=== PATIENT | male | born 1965 | race Caucasian/White ===

== ENCOUNTER 2018-07-20 22:00 | Emergency (ER) | payer BC, SELFPAY ==
[2018-07-20] VITALS (9 sets, daily range): BP systolic 155–174; BP diastolic 80–90; PULSE 85–101; RESP 17–28; TEMP 36.5–36.8; O2SAT 97
--- NOTE | 2018-07-20 22:16 | DI.CT_ITS ---
SYMPTOM/DIAGNOSIS: CONFUSION CRANIAL CT (WITHOUT CONTRAST): 07/[address] was performed. The ventricular system is normal in appearance. There is no evidence of an intracranial mass lesion. There is no evidence of a subdural or epidural hematoma. No focal areas of decreased attenuation are seen. CONCLUSION: Normal noncontrast Cranial CT.
--- NOTE | 2018-07-20 22:23 | W.ED.GENAD ---
Discharge Plan Disposition Patient Disposition: HOME Condition: Good Discharge Details Chief Complaint: AMS/LOC Clinical Impression: Acute dehydration, Hypoglycemia, Acute hyperglycemia Primary Care Provider: Sravani Salas ED Provider: Davy Torres Home Meds and New Rx's Prescriptions: No Action metoprolol succinate 25 MG tablet extended release 24 hr 25 mg PO DAILY Qty: 3 RF: 11 atorvastatin 20 MG tablet 40 mg PO DAILY RF: 0 isosorbide mononitrate 30 MG tablet extended release 24 hr 60 mg PO DAILY Qty: 180 RF: 3 lisinopril 40 MG tablet 40 mg PO DAILY RF: 0 multivit with [id number] [One Daily For Men] 1 EACH tablet 1 tab PO DAILY RF: 0 gabapentin 600 MG tablet 300 mg PO DIRECTED RF: 0 allopurinol 300 MG tablet 300 mg PO DAILY RF: 0 magnesium oxide 400 MG tablet 400 mg PO DAILY Qty: 30 RF: 0 nitroglycerin [Nitrostat] 0.4 MG tablet, sublingual 0.4 mg Sublingual Q5 MIN PRN X3 PRNQty: 100 RF: 0 trazodone 50 MG tablet 50 mg PO HS PRNRF: 0 naltrexone 50 MG tablet 4 mg PO DIRECTED RF: 0 insulin regular hum U-500 conc [Humulin R U-500 (Conc) Insulin] 500 UNIT/ML solution 500 unit SQ DIRECTED RF: 0 glimepiride [Amaryl] 4 MG tablet 4 mg PO BID RF: 0 duloxetine [Cymbalta] 60 MG capsule,delayed release(DR/EC) 60 mg PO DAILY RF: 0 metformin 500 MG tablet extended release 24 hr 1,000 mg PO BID Qty: 0 RF: 0 ibuprofen 600 MG tablet 600 mg PO TID Qty: 12 RF: 0 aspirin 325 MG tablet 325 mg PO DAILY RF: 0 ketorolac 10 mg Tablet 10 mg PO Q6H PRNRF: 0 Discharge Instructions Instructions: Dehydration (ED), Diabetic Hypoglycemia (ED) Additional Instructions: Please check your blood sugar every 6 hours for the next 2 days. Please watch your sugars closely. Please monitor your diet, and take notes for any peaks and troughs in your blood sugar levels. Please drink 8-10 cups of water per day. If you notice any worsening of your symptoms, or any new symptoms such as vomiting, diarrhea, fever, chills, shortness of breath, chest pain, numbness, weakness, or fainting , please return immediately to the emergency department for reevaluation. Please follow up with your primary care provider as soon as possible for reassessment and reevaluation. As always, it was a pleasure participating in your medical care today. Referrals: Sravani Salas [Primary Care Provider] - Medical Decision Making This is a pleasant 53-year-old male who presents for evaluation of altered mental status. His initial signs and symptoms were concerning for hypoglycemic episode and he was given a significant amount of very sugary foods by his family, which brought him back to a normal mental status. He has a mild persistent headache, and states that he feels slightly off. Physical exam demonstrates no concerning physical exam findings. However patient does appear bit off. I am concerned that the patient may have had a hypoglycemic episode now with an associated overshoot and hyperglycemia causing his feelings of general malaise. We will rehydrate the patient, evaluate for any acute etiology, and reassess. With no chest pain, shortness of breath, numbness tingling or weakness, no neurologic deficits, stroke is low in the differential and cardiac etiology also is very unlikely. They feel symptoms are most likely metabolic. EKG 22: 38 Rate 87, intervals normal, sinus rhythm, no ST elevations or depressions, no T wave inversions. Q waves in lead III. No other acute abnormalities. IMPRESSION: No acute intracranial abnormality. 11:30 PM Patient's laboratory workup is returned relatively benign. No evidence of leukocytosis. No evidence of acidosis. Electrolytes are normal, creatinine is 1.35 but near baseline. Glucose is elevated at 360. Ammonia troponin EKG are all normal. TSH is normal. CT scan of the head was read as negative per the radiologist. Patient was rehydrated, given Tylenol for his headache. Patient is feeling much better after the fluids, and clinically he does look much more normal. Again reviewing with family they state that throughout the whole day he has not eaten anything, and it still been taking his glimepiride and insulin. I feel that in fact he did have a notable hypoglycemic episode, and has now overshot. I did confirm with the family that he has plenty of diabetic testing strips at home. My recommendation to him is that he checks his blood sugar every 6 hours for the next few days. With a normal laboratory workup, notable clinical improvement with rehydration, and no concerning physical exam findings I feel he can be safely discharged home with close follow-up with his PCP. We discussed red flags which return the patient understands. I have extensively reviewed the treatment plan and discharge instructions with the patient and their family. I have addressed all patient concerns at this time. The patient and family was made aware of what symptoms to monitor for that would warrant a return to the emergency department. Discussed the plan with the patient and family, they demonstrate verbal understanding and agreement with our assessment and plan at this time. HPI General Date/Time Provider Initiated Documentation: 07/20/18 22:16. HPI Narrative: This is a 53-year-old male with a past medical history of type 2 diabetes on insulin, glimepiride, and metformin, with a past medical history of superficial phlebitis, hypertension, cholesterol, myocardial infarction with stenting, presents today for evaluation of altered mental status headache and dizziness. Family states that he was sleeping for his nap they went to wake him up however they had a very hard time waking him. They are concerned that he might be hypoglycemic and so they gave him frosting in his mouth, sugar tabs, and pure maple syrup. Patient slowly began to come back to her normal mental status. As they continue to feed him more he continued to feel better. EMS was called and when they arrived his blood sugar was over 200 and His symptoms have notably improved. However the patient had a persistent mild headache, felt slightly off, it is recommended that he come in for further evaluation in the emergency department. Currently the patient denies any complaints aside for the mild headache and feeling slightly off. He denies any chest pain, shortness of breath, chest heaviness, arm or neck pain, vomiting, or diarrhea. He denies any systemic symptoms of fever or chills. Past surgical history is notable for a recent right nerve lengthening procedure on his right upper extremity that was performed at [facility] within the past few weeks. Patient denies any IV or illicit drug use. He denies any other complaints at this time. He does state that once in the past he did have an episode of hypoglycemia that was similar to the episode he had tonight. He denies any history of stroke, or other intracranial pathology. Related Data Home Medications Medication Instructions Recorded Confirmed lisinopril 40 mg PO DAILY 08/10/13 07/20/18 multivit with [id number] [One 1 tab PO DAILY 08/10/13 07/20/18 Daily For Men] allopurinol 300 mg PO DAILY 03/11/15 07/20/18 gabapentin 300 mg PO DIRECTED 03/11/15 07/20/18 magnesium oxide 400 mg PO DAILY #30 tab 03/11/15 07/20/18 nitroglycerin [Nitrostat] 0.4 mg SUBLINGUAL Q5 MIN PRN X3 03/11/15 07/20/18 PRN #100 tab metoprolol succinate 25 mg PO DAILY #3 tab-cap 05/21/15 07/20/18 atorvastatin 40 mg PO DAILY tab-cap 06/29/15 07/20/18 duloxetine [Cymbalta] 60 mg PO DAILY 08/11/17 07/20/18 glimepiride [Amaryl] 4 mg PO BID 08/11/17 07/20/18 insulin regular hum U-500 conc 500 unit SQ DIRECTED 08/11/17 07/20/18 [Humulin R U-500 (Conc) Insulin] naltrexone 4 mg PO DIRECTED 08/11/17 07/20/18 trazodone 50 mg PO HS PRN 08/11/17 07/20/18 metformin 1,000 mg PO BID #0 08/12/17 07/20/18 isosorbide mononitrate 60 mg PO DAILY #180 tabcr 10/30/17 07/20/18 ibuprofen 600 mg PO TID #12 tablet 12/20/17 07/20/18 aspirin 325 mg PO DAILY 02/06/18 07/20/18 ketorolac 10 mg PO Q6H PRN 07/20/18 07/20/18 Previous Rx's Medication Instructions Recorded magnesium oxide 400 mg PO DAILY #30 tab 03/11/15 nitroglycerin [Nitrostat] 0.4 mg SUBLINGUAL Q5 MIN PRN X3 03/11/15 PRN #100 tab metformin 1,000 mg PO BID #0 08/12/17 isosorbide mononitrate 60 mg PO DAILY #180 tabcr 10/30/17 ibuprofen 600 mg PO TID #12 tablet 12/20/17 Allergies Allergy/AdvReac Type Severity Reaction Status Date / Time amoxicillin Allergy Unverified 07/20/18 22:10 General Stated Complaint: AMS/LOC BRANDYN: 3 Review of Systems Review of Systems All systems reviewed & are unremarkable except as noted in HPI and below PFSH Social History Smoking/Tobacco Use Status: Never Exam Narrative Exam Narrative: 1.Const: Well-nourished, Well-developed, appearing stated age 2.Eyes: PERRL, no conjunctival injection, and symmetrical lids. 3.ENT: Atraumatic external nose and ears. Moist MM. Neck: Symmetric, trachea midline, No thyromegaly. Patient demonstrates good movement of cervical neck. There is no nuchal rigidity, no nuchal tenderness. Patient is able to flex the neck without any difficulty or significant pain. Negative Kernig's and Brudzinski sign. 4.CVS: +S1/S2, No murmurs or gallops. Peripheral pulses 2+ and equal in all extremities. Brisk capillary refill in all extremities. 5.RESP: Unlabored respiratory effort. Clear to auscultation bilaterally. No wheezes rales or rhonchi 6.GI: Soft, Nontender/Nondistended, No hepatosplenomegaly. No guarding or rebound. 7.MSK: Normocephalic/Atraumatic, Extremities w/o deformity or ttp No cyanosis or clubbing, Normal movement of all extremities 8.Skin: Warm, Dry. No rashes or lesions. 9.Neuro: scale reclamation tender II-XII grossly intact. Sensation grossly intact, no focal neurologic deficits. All 6 cardinal planes of vision are fully intact. No evidence of rotatory or vertical nystagmus. The patient demonstrated a normal [id number], good dexterity. There was no evidence of dysdiadochokinesia. Patient was able to ambulate without difficulty. There was no wide-based gait. Romberg, and dikv-th-iftf are both normal on testing. Sensation was intact bilaterally as well as muscle strength bilaterally for all extremities. Patient was able to verbalize butter cup with no slurring, or miss pronunciation. 10.Psych: (AAO) x3. Appropriate mood and affect Course Vital Signs Temperature 36.5 C 07/20/18 22:03 Pulse 101 H 07/20/18 22:03 Respiratory Rate 28 H 07/20/18 22:03 Blood Pressure 174/90 H 07/20/18 22:03 Pulse Oximetry 97 07/20/18 22:03 Temperature 36.5 C 07/20/18 22:03 Temperature Source Skin 07/20/18 22:03 Pulse 101 H 07/20/18 22:03 Respiratory Rate 28 H 07/20/18 22:03 Respiratory Effort Non-Labored 07/20/18 22:09 Blood Pressure 174/90 H 07/20/18 22:03 Blood Pressure Position Sitting 07/20/18 22:03 Pulse Oximetry 97 07/20/18 22:03 Oxygen Delivery Method Room Air 07/20/18 22:03 Oxygen Flow Rate 0 07/20/18 22:03
[2018-07-20 22:31] LABS: BE (Venous) 2.4 mmol/L (-3-3); HCO3 (Venous) 27 mmol/L (22-28); O2 Sat (Venous) 93 % (70-80); TCO2 (Venous) 24 mmol/L (22-29); pCO2 (Venous) 41 mm/Hg (34-47); pH (Venous) 7.42 (7.32-7.43); pO2 (Venous) 64 mm/Hg (28-44)
[2018-07-20 22:35] LABS: Abs Immature Grans 0.02 k/cumm (0.0-0.09); Absolute Basophil Count 0.02 k/cumm (0.0-0.2); Absolute Eosinophil Count 0.04 k/cumm (0.0-0.7); Absolute Lymphocyte Count 1.11 k/cumm (1.2-3.4); Absolute Monocyte Count 0.51 k/cumm (0.11-0.7); Absolute Neutrophil Count 7.65 k/cumm (1.2-6.7); Basophils % 0.2; Eosinophils % 0.4; HCT 41.8 % (40.0-50.0); HGB 14.7 g/dL (13.5-17.5); Immature Grans % 0.2; Lymphocytes % 11.9; Mean Corp. HGB Concentration 35.2 g/dL (32.0-36.0); Mean Corpuscular Hemoglobin 29.1 pg (27.0-33.0); Mean Corpuscular Volume 82.8 fL (80-95); Mean Platelet Volume 9.6 fL (8.0-11.0); Monocytes % 5.5; Neutrophils % 81.8; Platelet Count 234 x1000/uL (130-400); RBC 5.05 m/cumm (4.50-6.00); RBC Distribution Width 13.7 % (11.8-14.1); White Blood Cell Count 9.35 k/cumm (4.4-10.8)
[2018-07-20] MEDS: Normal Saline 1,000 ML 1000 ML IV ×2 (22:40→23:22)
[2018-07-20 22:44] LABS: Ammonia 32 umol/L (11-32)
[2018-07-20 22:57] LABS: ALT 58 U/L (12-78); AST 30 U/L (15-37); Albumin 3.7 g/dL (3.4-5.0); Alkaline Phosphatase 84 U/L (46-116); BUN 20 mg/dL (7-18); Bilirubin, Total 0.4 mg/dL (0.2-1.0); CREATININE 1.35 mg/dL (0.70-1.30); Calcium 9.1 mg/dL (8.5-10.1); Chloride 99 mmol/L (98-107); Glucose 360 mg/dL (70-100); Lipase 88 U/L (73-393); Potassium 4.6 mmol/L (3.5-5.1); Sodium 137 mmol/L (136-145); TSH 0.67 uIU/mL (0.358-3.74); Total Protein 7.2 g/dL (6.4-8.2)
[2018-07-20 23:01] LABS: Troponin I < 0.02 ng/mL (0.00-0.06)
--- NOTE | 2018-07-20 23:17 | DI.VRAD_ITS ---
EXAM: CT Head Without Intravenous Contrast EXAM DATE/TIME: 07/20/2018 11:06 PM CLINICAL HISTORY: 53 years old, male; Signs and symptoms; Other: Confusion TECHNIQUE: Axial computed tomography images of the head/brain without intravenous contrast. All CT scans at this facility use at least one of these dose optimization techniques: automated exposure control; mA and/or kV adjustment per patient size (includes targeted exams where dose is matched to clinical indication); or iterative reconstruction. Coronal and sagittal reformatted images were created and reviewed. COMPARISON: No relevant prior studies available. FINDINGS: Brain: Unremarkable. No hemorrhage. No evidence of acute infarct. No mass. No unexpected white matter change for age. Ventricles: No ventriculomegaly. Bones/joints: Unremarkable. Sinuses: No sinus fluid. Mastoid air cells: Unremarkable. Soft tissues: Unremarkable. IMPRESSION: No acute intracranial abnormality. Dictated and Authenticated by: Fernie Rosario MD. Ordering:MARY COTTRELL MD
[2018-07-20] MEDS: Acetaminophen 500 MG TAB 1000 MG PO (23:26)
== END 2018-07-20 23:52 | disposition home or self-care (01) ==
PROVIDERS: Emergency Provider Student in an Organized Health Care Education/Training Program; PCP Nurse Practitioner Family
DX: E86.0 Dehydration (principal); R51 Headache; E11.649 Type 2 diabetes mellitus with hypoglycemia without coma; Z79.4 Long term (current) use of insulin; I10 Essential (primary) hypertension
CPT/HCPCS: 36415; 80053; 82805; 83690; 93005; 96360; 99284; 70450; 82140; 84443; 84484; 85025; 93010

== ENCOUNTER 2018-09-26 09:01 | Emergency (ER) | payer BC, SELFPAY ==
[2018-09-26 09:06] VITALS: BP 139/82; PULSE 98; RESP 14; TEMP 36.5; O2SAT 97
[2018-09-26] MEDS: Oseltamivir 75 MG CAP PO (10:18)
--- NOTE | 2018-09-26 10:40 | W.ED.GENAD ---
Discharge Plan Disposition Patient Disposition: HOME Condition: Stable Discharge Details Chief Complaint: RespSymp Clinical Impression: Influenza Primary Care Provider: Sravani Salas ED Provider: Jacinto Ortega Home Meds and New Rx's Prescriptions: New benzonatate 200 mg capsule 200 mg PO TID PRN (Reason: cough) Qty: 30 RF: 0 Continued metoprolol succinate 25 MG tablet extended release 24 hr 25 mg PO DAILY Qty: 3 RF: 11 atorvastatin 20 MG tablet 40 mg PO DAILY RF: 0 isosorbide mononitrate 30 MG tablet extended release 24 hr 60 mg PO DAILY Qty: 180 RF: 3 lisinopril 40 MG tablet 40 mg PO DAILY RF: 0 One Daily For Men 1 EACH tablet 1 tab PO DAILY RF: 0 gabapentin 600 MG tablet 300 mg PO DIRECTED RF: 0 allopurinol 300 MG tablet 300 mg PO DAILY RF: 0 magnesium oxide 400 MG tablet 400 mg PO DAILY Qty: 30 RF: 0 nitroglycerin [Nitrostat] 0.4 MG tablet, sublingual 0.4 mg Sublingual Q5 MIN PRN X3 PRNQty: 100 RF: 0 trazodone 50 MG tablet 50 mg PO HS PRNRF: 0 naltrexone 50 MG tablet 4 mg PO DIRECTED RF: 0 Humulin R U-500 (Conc) Insulin 500 UNIT/ML solution 500 unit SQ DIRECTED RF: 0 glimepiride [Amaryl] 4 MG tablet 4 mg PO BID RF: 0 duloxetine [Cymbalta] 60 MG capsule,delayed release(DR/EC) 60 mg PO DAILY RF: 0 metformin 500 MG tablet extended release 24 hr 1,000 mg PO BID Qty: 0 RF: 0 ibuprofen 600 MG tablet 600 mg PO TID Qty: 12 RF: 0 aspirin 325 MG tablet 325 mg PO DAILY RF: 0 Discharge Instructions Instructions: Influenza (ED) Additional Instructions: Return immediately to the emergency department for any new or worsening symptoms, persistent fever chills, shortness of breath or significantly productive cough. Otherwise take your medications as prescribed and follow-up with your primary care provider for reassessment as needed. Referrals: Sravani Salas [Primary Care Provider] - (As needed for reassessment or if not improving after antiviral medication) Discharge Data Discharge Date/Time-TO BE ENTERED AT DEPARTURE: 09/26/18 11:02 Medical Decision Making Patient presenting the emergency department for chief complaint of cough. Patient states that he has cough, malaise, generalized body aches and abdominal and rib pain due to coughing. Patient states that he just has not been feeling any better and was concerned due to him having diabetes and heart problems. Patient does state fever and chills, night sweats. Patient denies any nausea vomiting diarrhea or rash. Prior to my examination medical staffing coordinator initiated protocol for influenza testing which I feel is appropriate. Patient was assessed and shows clear lung sounds, normal HEENT exam, no nuchal rigidity, stable non-hypoxic afebrile [id number] patient. Influenza test was positive. Patient has no signs of meningitis, no focal findings on lung exam to suggest pneumonia, otherwise unremarkable exam. Given this I feel the patient is able to be safely discharged but given comorbidities I did discuss with patient risk versus benefit of Tamiflu treatment given greater than 48 hours of symptoms. Given these other symptoms we did agree upon complete treatment plan to include Tessalon Perles along with Tamiflu to attempt to reduce any potential for secondary pneumonia or other complications. After discussion of diagnosis and plan of care patient has no further needs, questions, or concerns and states clear understanding to return to the emergency department for any worsening symptoms. HPI General Mode of arrival: ambulatory. Date/Time Provider Initiated Documentation: 09/26/18 09:11. Limitations to Documentation: no limitations. Information obtained by: patient and RN notes reviewed. History of Present Illness 53 year old M presents to the emergency department with the chief complaint of cough, chest congestion, described as moderate, with intensity rated at 3. Quality is described as aching and other, and is localized to the abdomen (and ribs). Patient reports no radiation. Patient started experiencing this week(s) (1) and it has been constant. No relieving factors improve symptom(s), Other factors that worsen symptoms (coughing) . Patient did receive the following treatments prior to arrival, none Related Data Home Medications Medication Instructions Recorded Confirmed One Daily For Men 1 tab PO DAILY 08/10/13 09/26/18 lisinopril 40 mg PO DAILY 08/10/13 09/26/18 allopurinol 300 mg PO DAILY 03/11/15 09/26/18 gabapentin 300 mg PO DIRECTED 03/11/15 09/26/18 magnesium oxide 400 mg PO DAILY #30 tab 03/11/15 09/26/18 nitroglycerin [Nitrostat] 0.4 mg SUBLINGUAL Q5 MIN PRN X3 03/11/15 09/26/18 PRN #100 tab metoprolol succinate 25 mg PO DAILY #3 tab-cap 05/21/15 09/26/18 atorvastatin 40 mg PO DAILY tab-cap 06/29/15 09/26/18 Humulin R U-500 (Conc) Insulin 500 unit SQ DIRECTED 08/11/17 09/26/18 duloxetine [Cymbalta] 60 mg PO DAILY 08/11/17 09/26/18 glimepiride [Amaryl] 4 mg PO BID 08/11/17 09/26/18 naltrexone 4 mg PO DIRECTED 08/11/17 09/26/18 trazodone 50 mg PO HS PRN 08/11/17 09/26/18 metformin 1,000 mg PO BID #0 08/12/17 09/26/18 isosorbide mononitrate 60 mg PO DAILY #180 tabcr 10/30/17 09/26/18 ibuprofen 600 mg PO TID #12 tablet 12/20/17 09/26/18 aspirin 325 mg PO DAILY 02/06/18 09/26/18 benzonatate 200 mg PO TID PRN #30 cap 09/26/18 Previous Rx's Medication Instructions Recorded magnesium oxide 400 mg PO DAILY #30 tab 03/11/15 nitroglycerin [Nitrostat] 0.4 mg SUBLINGUAL Q5 MIN PRN X3 03/11/15 PRN #100 tab metformin 1,000 mg PO BID #0 08/12/17 isosorbide mononitrate 60 mg PO DAILY #180 tabcr 10/30/17 ibuprofen 600 mg PO TID #12 tablet 12/20/17 benzonatate 200 mg PO TID PRN #30 cap 09/26/18 Allergies Allergy/AdvReac Type Severity Reaction Status Date / Time amoxicillin Allergy Unverified 09/26/18 09:12 General Stated Complaint: RespSymp BRANDYN: 3 Review of Systems Constitutional Reports body ache(s), Reports chills, Reports fever(s), Denies headache(s) and Reports malaise Eyes Denies eye discharge ENT Denies headache(s), Denies nasal congestion, Denies nasal discharge, Denies neck pain, Denies sinus pressure, Denies sore throat and Denies throat swelling Cardiovascular Denies chest pain and Denies dyspnea Respiratory Denies change in phlegm color, Reports chest congestion, Reports cough, Reports pain with cough and Denies dyspnea Gastrointestinal Reports abdominal pain (with coughing), Denies diarrhea, Denies nausea and Denies vomiting Musculoskeletal Denies joint swelling and Denies neck pain Integumentary/Breasts Denies rash Neurologic Denies headache(s) Allergic/Immunologic Denies throat swelling [facility] Medical History Angina pectoris (Acute) Coronary artery disease (Acute) Type 2 diabetes mellitus (Acute) Hypertension (Acute) Social History Smoking/Tobacco Use Status: Never Exam Const General: cooperative, comfortable and no acute distress Orientation: alert and awake HENMT Head: normal to inspection, normocephalic and atraumatic Ears: hearing grossly normal bilaterally and TM's normal bilaterally General nose exam: external nose normal Face and sinus: normal facial exam, sinuses nontender and no erythema Mouth: oral mucosae normal, no drooling, no muffled voice and no trismus Throat: posterior oropharynx normal, tonsils normal and uvula midline Neck Neck: normal visual inspection, full ROM, no lymphadenopathy, no meningeal signs, trachea midline and supple Resp Effort & Inspection: normal respiratory effort, able to speak in complete sentences and cough Quality of cough: dry Auscultation: clear to auscultation bilaterally Cardio Rate: regular rate Rhythm: regular rhythm Heart Sounds: S1 normal, S2 normal, normal S1 and S2, no click, no gallops, no murmurs and no rubs Skin General skin exam: no rashes or lesions noted and dry skin (warm) Neuro General: alert, awake, oriented x3, gait normal and moves all extremities Cognition: normal cognition Speech: speech normal Course Vital Signs Temperature 36.5 C 09/26/18 09:06 Pulse 98 H 09/26/18 09:06 Respiratory Rate 14 09/26/18 09:06 Blood Pressure 139/82 09/26/18 09:06 Pulse Oximetry 97 09/26/18 09:06 Temperature 36.5 C 09/26/18 09:06 Temperature Source Skin 09/26/18 09:06 Pulse 98 H 09/26/18 09:06 Respiratory Rate 14 09/26/18 09:06 Respiratory Effort 09/26/18 09:16 Respiratory Depth Normal 09/26/18 09:16 Blood Pressure 139/82 09/26/18 09:06 Blood Pressure Position Sitting 09/26/18 09:06 Pulse Oximetry 97 09/26/18 09:06 Oxygen Delivery Method Room Air 09/26/18 09:06 Oxygen Flow Rate 0 09/26/18 09:06 Pain Level 0 09/26/18 09:06 Lab/Test Results Lab/Test Results: 09/26/18 09:20 Nasopharynx Influenza Types A,B Antigen - Final
== END 2018-09-26 11:02 | disposition home or self-care (01) ==
PROVIDERS: Emergency Provider Nurse Practitioner Family; PCP Nurse Practitioner Family
DX: J10.1 Influenza due to other identified influenza virus with other respiratory manifestations (principal)
CPT/HCPCS: 87449; 99283

== ENCOUNTER 2019-03-13 02:17 | Outpatient (CLI) | payer BC, SELFPAY ==
[2019-03-13 09:35] LABS: ALT 54 U/L (12-78); AST 36 U/L (15-37); Albumin 3.7 g/dL (3.4-5.0); Alkaline Phosphatase 84 U/L (46-116); Anion Gap 13.7 mmol/L (3-11); BUN 36 mg/dL (7-18); Bilirubin, Total 0.3 mg/dL (0.2-1.0); CO2 22.3 mmol/L (21.0-32.0); CREATININE 1.18 mg/dL (0.70-1.30); Calcium 9.8 mg/dL (8.5-10.1); Chloride 104 mmol/L (98-107); Ferritin 122 ng/mL (8-388); Glucose 126 mg/dL (70-100); Magnesium 1.6 mg/dL (1.8-2.4); Potassium 4.5 mmol/L (3.5-5.1); Sodium 140 mmol/L (136-145); Total Protein 6.7 g/dL (6.4-8.2)
[2019-03-13 12:12] LABS: Iron 27 ug/dL (50-175)
== END 2019-03-13 02:37 ==
PROVIDERS: PCP Nurse Practitioner Family; Visit Provider Nurse Practitioner Family
DX: R25.2 Cramp and spasm (principal)
CPT/HCPCS: 36415; 80053; 82728; 83540; 83735

== ENCOUNTER 2019-04-24 03:39 | Outpatient (CLI) | payer BC, SELFPAY ==
[2019-04-24 10:12] LABS: Abs Immature Grans 0.01 k/cumm (0.0-0.09); Absolute Basophil Count 0.01 k/cumm (0.0-0.2); Absolute Eosinophil Count 0.13 k/cumm (0.0-0.7); Absolute Lymphocyte Count 1.32 k/cumm (1.2-3.4); Absolute Monocyte Count 0.39 k/cumm (0.11-0.7); Absolute Neutrophil Count 4.42 k/cumm (1.2-6.7); Basophils % 0.2; Eosinophils % 2.1; HCT 41.4 % (40.0-50.0); HGB 14.3 g/dL (13.5-17.5); Immature Grans % 0.2; Mean Corp. HGB Concentration 34.5 g/dL (32.0-36.0); Mean Corpuscular Hemoglobin 28.5 pg (27.0-33.0); Mean Corpuscular Volume 82.5 fL (80-95); Mean Platelet Volume 9.9 fL (8.0-11.0); Monocytes % 6.2; Neutrophils % 70.3; Platelet Count 215 x1000/uL (130-400); RBC 5.02 m/cumm (4.50-6.00); RBC Distribution Width 13.9 % (11.8-14.1); White Blood Cell Count 6.28 k/cumm (4.4-10.8)
[2019-04-24 10:29] LABS: Magnesium 1.7 mg/dL (1.8-2.4)
== END 2019-04-24 03:59 ==
PROVIDERS: PCP Nurse Practitioner Family; Visit Provider Nurse Practitioner Family
DX: R25.2 Cramp and spasm (principal)
CPT/HCPCS: 36415; 83735; 85025

== ENCOUNTER 2019-06-09 22:22 | Emergency (ER) | payer BC, SELFPAY ==
[2019-06-09 22:30] VITALS: BP 188/105; PULSE 116; RESP 18; TEMP 36.6; O2SAT 98
[2019-06-09 23:06] LABS: Bilirubin Negative (Negative); Blood Trace-intact (Negative); Clarity Clear (Clear); Glucose >=1000 mg/dL (Negative); Ketones Negative (Negative); Leukocyte Esterase Negative (Negative); Nitrite Negative (Negative); Urobilinogen 0.2 EU/dL (Up TO 0.2); pH 5.5 (5-8)
[2019-06-09 23:10] LABS: WBC 0-2 HPF (0-5)
--- NOTE | 2019-06-09 23:10 | W.ED.GENAD ---
Discharge Plan Disposition Patient Disposition: [facility] Condition: Stable Discharge Details Chief Complaint: Suicide-Atempt Clinical Impression: Depression, Suicidal ideation Primary Care Provider: Sravani Salas ED Provider: Rula Aponte Home Meds and New Rx's Prescriptions: No Action metoprolol succinate 25 MG tablet extended release 24 hr 50 mg PO DAILY Qty: 3 RF: 11 atorvastatin 20 MG tablet 40 mg PO DAILY RF: 0 isosorbide mononitrate 30 MG tablet extended release 24 hr 60 mg PO DAILY Qty: 180 RF: 3 lisinopril 40 mg tablet 40 mg PO DAILY RF: 0 gabapentin 600 MG tablet 300 mg PO DIRECTED RF: 0 allopurinol 300 MG tablet 300 mg PO DAILY RF: 0 magnesium oxide 400 MG tablet 400 mg PO DAILY Qty: 30 RF: 0 nitroglycerin [Nitrostat] 0.4 MG tablet, sublingual 0.4 mg Sublingual Q5 MIN PRN X3 PRNQty: 100 RF: 0 naltrexone 50 MG tablet 4 mg PO DIRECTED RF: 0 Humulin R U-500 (Conc) Insulin 500 UNIT/ML solution 500 unit SQ DIRECTED RF: 0 glimepiride [Amaryl] 4 MG tablet 8 mg PO DAILY RF: 0 metformin 500 MG tablet extended release 24 hr 1,000 mg PO BID Qty: 0 RF: 0 benzonatate 200 mg Capsule 200 mg PO BID PRNRF: 0 ferrous sulfate 325 mg (65 mg iron) Tablet 325 mg PO DAILY RF: 0 duloxetine 60 mg Capsule,Delayed Release(Dr/Ec) 60 mg PO DAILY RF: 0 ibuprofen 600 MG tablet 600 mg PO TID Qty: 12 RF: 0 aspirin 325 MG tablet 325 mg PO DAILY RF: 0 Discharge Data Discharge Date/Time-TO BE ENTERED AT DEPARTURE: 06/10/19 18:55 Medical Decision Making <Jacinto Ortega NP - Last Filed: 06/15/19 10:52> Patient presenting to the emergency department via [facility] for suicidal attempt. Patient reports approximately 1 hour prior to arrival he took 2 handfuls of gabapentin. Patient denies any alcohol intake, other drugs, or other medications that he attempted to overdose. Patient states significant amount of recent loss with his filing for restraining order and he had court today which she was informed that he may not see or contact her for the next year or return to his home. After court he informed his son that if they find him that he would more than likely be . Son called police who been looking for him remainder of the day. Patient denies any physical symptoms and states that he was not even successful . Patient has extremely tearful, sad, and keeps reiterating significant feelings of loss and feelings of no hope after court today. Patient does state that he was at [facility] recently for similar suicidal ideations given difficulty in his marriage. Physical exam is unremarkable except for tachycardia. Called and spoke with Surjit pharmacist at [facility] whom stated patient should be observed for severe VENEER LAYER depression or sedation, hypotension for the next 6 hours. Recommended treatment would be airway support as needed and fluids for any hypotension. At this time patient is stable with intact airway, no severe VENEER LAYER depression, no hypotension. Will check psych screening labs labs, order patient product safety coordinator, and wait for medical clearance. <Brock Lomeli MD - Last Filed: 06/11/19 00:42> Patient signed out to me pending medical clearance. He reportedly took a couple handfuls of gabapentin. His mental status is normal. His vital signs have been good other than mild tachycardia. He has been seen by mental health. He is here voluntarily at this point. Patient's EKG shows sinus tachycardia otherwise unremarkable. Laboratory studies are significant for quite elevated glucose above 500. There is a slight gap. Kidney function a little worse than previous baseline. Urine drug screen and alcohol negative. Liver function fine. Tylenol and aspirin negative. Placed an IV and will give the patient 2 L of LR. He is also given 10 units of regular insulin subcu. Will check fingerstick every 4 hours. We will repeat BMP in the morning. I have also written for the patient's daily medications. 07:50 -Patient has been calm and cooperative overnight. He has received 2 L of fluid as well as 10 units of subcu regular insulin and a repeat dose of 8 units of subcu regular insulin for continued elevated fingerstick. Repeat BMP has been drawn and is pending. He remains with a CPSO. Care management and mental health aware of patient. Will sign out to oncoming physician for further management. Lab Data Lab results reviewed: Yes I reviewed the patient's lab results. ECG Data Attestation: I personally reviewed and interpreted this ECG (s) as follows: Interpretation: Sinus tachycardia at 107. Normal axis and intervals. Poor R wave progression across the precordium. No acute ST changes. <Rula Aponte DO - Last Filed: 06/10/19 19:02> 0800 --Case endorsed to follow-up with mental health regarding final disposition and placement. 1130 --glucose 375 after liter normal saline. Case discussed with mental health and they state that [facility] will not accept patient unless glucose less than 350. Will give 4 units subcu regular insulin and reassess. 1600 --repeat glucose 274. Patient accepted to [facility] for transfer. 1745 --Case discussed with [facility] Dr. Banda -accepting physician Dr. Butt. Medical Records Medical records reviewed: Yes I reviewed the patient's medical records. HPI <Jacinto Ortega NP - Last Filed: 06/15/19 10:52> General Mode of arrival: ambulatory. Date/Time Provider Initiated Documentation: 06/09/19 22:23. Limitations to Documentation: no limitations. Information obtained by: patient, police and RN notes reviewed. History of Present Illness 54 year old M presents to the emergency department with the chief complaint of Suicidal ideations, gabapentin overdose, Quality is described as other (Denies any pain or discomfort), Patient started experiencing this hour(s) (Approximately 1 hour ago) Patient notes no other symptoms.. Patient did receive the following treatments prior to arrival, none Related Data Home Medications Medication Instructions Recorded Confirmed allopurinol 300 mg PO DAILY 03/11/15 06/09/19 gabapentin 300 mg PO DIRECTED 03/11/15 06/09/19 magnesium oxide 400 mg PO DAILY #30 tab 03/11/15 06/09/19 nitroglycerin [Nitrostat] 0.4 mg SUBLINGUAL Q5 MIN PRN X3 03/11/15 06/09/19 PRN #100 tab metoprolol succinate 50 mg PO DAILY #3 tab-cap 05/21/15 06/09/19 atorvastatin 40 mg PO DAILY tab-cap 06/29/15 06/09/19 Humulin R U-500 (Conc) Insulin 500 unit SQ DIRECTED 08/11/17 06/09/19 glimepiride [Amaryl] 8 mg PO DAILY 08/11/17 06/10/19 naltrexone 4 mg PO DIRECTED 08/11/17 06/09/19 metformin 1,000 mg PO BID #0 08/12/17 06/09/19 isosorbide mononitrate 60 mg PO DAILY #180 tabcr 10/30/17 06/09/19 ibuprofen 600 mg PO TID #12 tab 12/20/17 06/09/19 aspirin 325 mg PO DAILY 02/06/18 06/09/19 lisinopril 40 mg tablet 40 mg PO DAILY tab 01/16/19 06/09/19 benzonatate 200 mg PO BID PRN 06/09/19 06/09/19 duloxetine 60 mg PO DAILY 06/09/19 06/09/19 ferrous sulfate 325 mg PO DAILY 06/09/19 06/09/19 Previous Rx's Medication Instructions Recorded magnesium oxide 400 mg PO DAILY #30 tab 03/11/15 nitroglycerin [Nitrostat] 0.4 mg SUBLINGUAL Q5 MIN PRN X3 03/11/15 PRN #100 tab metformin 1,000 mg PO BID #0 08/12/17 isosorbide mononitrate 60 mg PO DAILY #180 tabcr 10/30/17 ibuprofen 600 mg PO TID #12 tab 12/20/17 Allergies Allergy/AdvReac Type Severity Reaction Status Date / Time amoxicillin Allergy Unverified 09/26/18 09:12 General Stated Complaint: Suicide-Atempt BRANDYN: 2 Review of Systems <Jacinto Ortega NP - Last Filed: 06/15/19 10:52> Constitutional Constitutional: Denies headache(s) and Denies weakness ENT Ears, Nose, Mouth, and Throat: Denies headache(s) Cardiovascular Cardiovascular: Denies chest pain and Denies dyspnea Respiratory Respiratory: Denies cough and Denies dyspnea Gastrointestinal Gastrointestinal: Denies abdominal pain, Denies diarrhea, Denies nausea and Denies vomiting Musculoskeletal Musculoskeletal: Denies tingling Neurologic Neurologic: Denies headache(s), Denies tingling and Denies weakness PFS <Jacinto Ortega NP - Last Filed: 06/15/19 10:52> Social History Smoking/Tobacco Use Status: Never Drug use: Never In current or past relationships, have you been: other Do you feel safe at home: No Do you feel safe in your relationship?: No Exam <Jacinto Ortega NP - Last Filed: 06/15/19 10:52> Const General: cooperative Orientation: alert, awake and oriented x3 Limitations: mental status not altered HENMT Head: normal to inspection, normocephalic and atraumatic Ears: hearing grossly normal bilaterally Mouth: moist mucous membranes Resp Effort & Inspection: normal respiratory effort, able to speak in complete sentences and no respiratory distress Auscultation: clear to auscultation bilaterally Cardio Rate: tachycardic Rhythm: regular rhythm Heart Sounds: S1 normal, S2 normal, no click, no gallops, no murmurs and no rubs Neuro General: alert, awake, oriented x3, gait normal, moves all extremities and no focal motor deficits Speech: speech normal Psych Speech and Movement: speech and movement normal and speech clear Affect: sad (Tearful) Attitude: cooperative Thought Content: suicidality (With admitting overdosing on gabapentin) Course <Jacinto Ortega NP - Last Filed: 06/15/19 10:52> Vital Signs Vital signs: Vital Signs Temperature 36.6 C 06/09/19 22:30 Pulse 116 H 06/09/19 22:30 Respiratory Rate 18 06/09/19 22:30 Blood Pressure 188/105 H 06/09/19 22:30 Pulse Oximetry 98 06/09/19 22:30 Temperature 36.6 C 06/09/19 22:30 Temperature Source Tympanic 06/09/19 22:30 Pulse 116 H 06/09/19 22:30 Respiratory Rate 18 06/09/19 22:30 Blood Pressure 188/105 H 06/09/19 22:30 Pulse Oximetry 98 06/09/19 22:30 Pain Level 0 06/09/19 22:30 Sign Out <Jacinto Ortega NP - Last Filed: 06/15/19 10:52> Sign Out Data: Sign Out Comment: Patient signed out pending review of labs, EKG, and continued monitoring for any side effects of overdose. If no worsening symptoms patient should be medically clear approximately 6 hours after arrival. Last updated by Jacinto Ortega NP at 06/09/19 23:52 Sign Out Comment: Patient with elevated blood sugars but otherwise has been fine. Morning medications ordered. Continue treating hyperglycemia. Still waiting for psych placement. Last updated by Brock Lomeli MD at 06/10/19 07:59
[2019-06-09 23:11] LABS: Bacteria Rare HPF (Negative); C & S Indicated? No; Casts Negative LPF (Negative); Crystals Negative HPF (Negative); Epithelial Cells Rare HPF (Negative); Mucus Negative (Negative); Other Cells Negative (Negative)
[2019-06-09 23:21] LABS: *AMPHETAMINES SCREEN URINE Negative (Negative); *BARBITURATES SCREEN URINE Negative (Negative); *BENZODIAZEPINES SCREEN URINE Negative (Negative); Cannabinoids THC Negative (Negative); Cocaine Screen,Urine Negative (Negative); METHADONE URINE SCREEN Negative (Negative); OPIATES URINE SCREEN Negative (Negative)
[2019-06-09 23:22] LABS: Tricyclic Antidepressants Negative (Negative)
[2019-06-10] VITALS (40 sets, daily range): BP systolic 120–176; BP diastolic 79–108; PULSE 103–121; RESP 10–24; TEMP 36.8–37.5; O2SAT 94–98
[2019-06-10 00:20] LABS: Abs Immature Grans 0.03 k/cumm (0.0-0.09); Absolute Basophil Count 0.05 k/cumm (0.0-0.2); Absolute Eosinophil Count 0.14 k/cumm (0.0-0.7); Absolute Lymphocyte Count 1.82 k/cumm (1.2-3.4); Absolute Monocyte Count 0.89 k/cumm (0.11-0.7); Absolute Neutrophil Count 7.03 k/cumm (1.2-6.7); Basophils % 0.5; Eosinophils % 1.4; HCT 45.1 % (40.0-50.0); HGB 15.9 g/dL (13.5-17.5); Immature Grans % 0.3; Lymphocytes % 18.3; Mean Corp. HGB Concentration 35.3 g/dL (32.0-36.0); Mean Corpuscular Hemoglobin 29.4 pg (27.0-33.0); Mean Corpuscular Volume 83.5 fL (80-95); Mean Platelet Volume 9.4 fL (8.0-11.0); Monocytes % 8.9; Neutrophils % 70.6; Platelet Count 236 x1000/uL (130-400); RBC Distribution Width 13.5 % (11.8-14.1); White Blood Cell Count 9.96 k/cumm (4.4-10.8)
[2019-06-10 00:31] LABS: ALT 43 U/L (16-63); AST 17 U/L (15-37); Albumin 4.2 g/dL (3.4-5.0); Alkaline Phosphatase 95 U/L (46-116); Anion Gap 14.3 mmol/L (3-11); BUN 27 mg/dL (7-18); Bilirubin, Total 0.9 mg/dL (0.2-1.0); CO2 20.7 mmol/L (21.0-32.0); CREATININE 1.57 mg/dL (0.70-1.30); Calcium 9.4 mg/dL (8.5-10.1); Chloride 99 mmol/L (98-107); Estimated GFR 46.44 (mL/min/1.73m2); Potassium 5.1 mmol/L (3.5-5.1); Sodium 134 mmol/L (136-145); Total Protein 8.1 g/dL (6.4-8.2)
[2019-06-10 00:34] LABS: ETHANOL BLOOD < 3.0 mg/dL (<3); Glucose 516 mg/dL (70-100)
[2019-06-10 00:41] LABS: Salicylate < 2.8 mg/dL (2.8-20.0)
[2019-06-10 00:42] LABS: Acetaminophen < 2 ug/mL (10-30)
[2019-06-10] MEDS: Lactated Ringers 2,000 ML 1000 ML IV (00:50)
[2019-06-10] MEDS: Insulin REGULAR-Human 100 UNITS/ML UNIT 10 UNITS SC (01:00)
--- NOTE | 2019-06-10 02:09 | NUR.NOTE ---
Nursing Note: Patient is requesting to speak to son, states that he has sons phone number on a piece of paper in his wallet. Patient is also wondering if he would be able to have somebody retrieve the clothing out of his car so that he would have more clothes if/when he is transferred to a different facility.
[2019-06-10] MEDS: Insulin REGULAR-Human 100 UNITS/ML UNIT 8 UNITS SC (06:35)
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
[2019-06-10 07:51] LABS: Anion Gap 14.1 mmol/L (3-11); BUN 24 mg/dL (7-18); CO2 22.9 mmol/L (21.0-32.0); CREATININE 1.43 mg/dL (0.70-1.30); Calcium 9.4 mg/dL (8.5-10.1); Chloride 99 mmol/L (98-107); Estimated GFR 51.73 (mL/min/1.73m2); Glucose 440 mg/dL (70-100); Potassium 5.4 mmol/L (3.5-5.1); Sodium 136 mmol/L (136-145)
[2019-06-10] MEDS: Lisinopril 20 MG TAB 40 MG PO (08:12)
[2019-06-10] MEDS: DULoxetine 30 MG CAP 60 MG PO (08:13)
[2019-06-10] MEDS: Glimepiride 2 MG TAB 8 MG PO (08:13)
[2019-06-10] MEDS: metFORMIN C.R. 500 MG TABCR 1000 MG PO (08:13)
[2019-06-10] MEDS: Isosorbide Mononitrate 60 MG TABCR PO (08:13)
[2019-06-10] MEDS: Aspirin E.C. 325 MG TABEC PO (08:17)
[2019-06-10] MEDS: Metoprolol CR 50 MG TABCR PO (08:17)
[2019-06-10] MEDS: Loperamide 2 MG CAP PO (10:18)
[2019-06-10] MEDS: Normal Saline 1,000 ML 1000 ML IV ×2 (10:18→12:17)
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
[2019-06-10] MEDS: Insulin REGULAR-Human 100 UNITS/ML UNIT SC (12:06)
== END 2019-06-10 18:55 | disposition short-term general hospital (02) ==
PROVIDERS: Emergency Medicine; Nurse Practitioner Family; Emergency Provider Physician Assistant; PCP Nurse Practitioner Family
DX: T42.6X2A Poisoning by other antiepileptic and sedative-hypnotic drugs, intentional self-harm, initial encounter (principal); R00.0 Tachycardia, unspecified; R45.851 Suicidal ideations; E11.9 Type 2 diabetes mellitus without complications; I10 Essential (primary) hypertension; Z79.84 Long term (current) use of oral hypoglycemic drugs
CPT/HCPCS: 36415; 36416; 80048; 80053; 80307; 82962; 93005; 96360; 96361; 96372; 99285; 80320; 80329; 81003; 81015; 85025; 93010

== ENCOUNTER 2019-06-26 07:41 | Emergency (ER) | payer BC, SELFPAY ==
[2019-06-26 07:45] VITALS: BP 156/96; PULSE 73; RESP 18; TEMP 36.5; O2SAT 98
--- NOTE | 2019-06-26 08:01 | NUR.NOTE ---
Nursing Note: Care assumed from Alexys Zarate RN at this time. Pt sitting on bed, tearful- in paper clothing with belongings secured in nurse's station as reflected in [facility].
--- NOTE | 2019-06-26 08:05 | W.ED.GENAD ---
Discharge Plan Disposition Patient Disposition: [facility] Condition: Stable Discharge Details Chief Complaint: PsychEval Clinical Impression: Depression Primary Care Provider: Sravani Salas ED Provider: Joseph Alarcon [place] Meds and New Rx's Prescriptions: No Action metoprolol succinate 25 MG tablet extended release 24 hr 50 mg PO DAILY Qty: 3 RF: 11 atorvastatin 20 MG tablet 40 mg PO DAILY RF: 0 isosorbide mononitrate 30 MG tablet extended release 24 hr 60 mg PO DAILY Qty: 180 RF: 3 lisinopril 40 mg tablet 40 mg PO DAILY RF: 0 gabapentin 600 MG tablet 300 mg PO DIRECTED RF: 0 allopurinol 300 MG tablet 300 mg PO DAILY RF: 0 magnesium oxide 400 MG tablet 400 mg PO DAILY Qty: 30 RF: 0 nitroglycerin [Nitrostat] 0.4 MG tablet, sublingual 0.4 mg Sublingual Q5 MIN PRN X3 PRNQty: 100 RF: 0 naltrexone 50 MG tablet 4 mg PO DIRECTED RF: 0 Humulin R U-500 (Conc) Insulin 500 UNIT/ML solution 500 unit SQ DIRECTED RF: 0 glimepiride [Amaryl] 4 MG tablet 8 mg PO DAILY RF: 0 metformin 500 MG tablet extended release 24 hr 1,000 mg PO BID Qty: 0 RF: 0 benzonatate 200 mg Capsule 200 mg PO BID PRNRF: 0 ferrous sulfate 325 mg (65 mg iron) Tablet 325 mg PO DAILY RF: 0 duloxetine 60 mg Capsule,Delayed Release(Dr/Ec) 60 mg PO DAILY RF: 0 ibuprofen 600 MG tablet 600 mg PO TID Qty: 12 RF: 0 aspirin 325 MG tablet 325 mg PO DAILY RF: 0 Medical Decision Making 54 yo male with hx of depression, htn, cad, DM, who comes in with increasing depression. She was seen here earlier this and [place] [facility] [place] after attempting gabapentin overdose. [place] [facility] [place] been having increasing thoughts of SI with no specific plan relayed to me. Denies alcohol or drug use. He doesn't make eye contact, has very flat affect otherwise no focal neuro deficits and no findings on history or physical exam to suggest underlying medical process such as infectious etiology or endocrine disorder. Will have mental health evaluate pt has remained calm and cooperative during stay, labs without significant acute abnormalities. He has been accepted at the [facility] Differential Diagnosis Differential Diagnosis: depression, SI Lab Data Lab results reviewed: Yes I reviewed the patient's lab results. HPI General Mode of arrival: ambulatory. Date/Time Provider Initiated Documentation: 06/26/19 07:54. Limitations to Documentation: no limitations. Information obtained by: patient. History of Present Illness 54 year old M presents to the emergency department with the chief complaint of depression, described as moderate, Patient started experiencing this week(s) (6) and it has been constant. No relieving factors improve symptom(s), No exacerbating factors reported . Patient notes no other symptoms.. Related Data Home Medications Medication Instructions Recorded Confirmed allopurinol 300 mg PO DAILY 03/11/15 06/09/19 gabapentin 300 mg PO DIRECTED 03/11/15 06/09/19 magnesium oxide 400 mg PO DAILY #30 tab 03/11/15 06/09/19 nitroglycerin [Nitrostat] 0.4 mg SUBLINGUAL Q5 MIN PRN X3 03/11/15 06/09/19 PRN #100 tab metoprolol succinate 50 mg PO DAILY #3 tab-cap 05/21/15 06/09/19 atorvastatin 40 mg PO DAILY tab-cap 06/29/15 06/09/19 Humulin R U-500 (Conc) Insulin 500 unit SQ DIRECTED 08/11/17 06/09/19 glimepiride [Amaryl] 8 mg PO DAILY 08/11/17 06/10/19 naltrexone 4 mg PO DIRECTED 08/11/17 06/09/19 metformin 1,000 mg PO BID #0 08/12/17 06/09/19 isosorbide mononitrate 60 mg PO DAILY #180 tabcr 10/30/17 06/09/19 ibuprofen 600 mg PO TID #12 tab 12/20/17 06/09/19 aspirin 325 mg PO DAILY 02/06/18 06/09/19 lisinopril 40 mg tablet 40 mg PO DAILY tab 01/16/19 06/09/19 benzonatate 200 mg PO BID PRN 06/09/19 06/09/19 duloxetine 60 mg PO DAILY 06/09/19 06/09/19 ferrous sulfate 325 mg PO DAILY 06/09/19 06/09/19 Previous Rx's Medication Instructions Recorded magnesium oxide 400 mg PO DAILY #30 tab 07/10/15 nitroglycerin [Nitrostat] 0.4 mg SUBLINGUAL Q5 MIN PRN X3 03/11/15 PRN #100 tab metformin 1,000 mg PO BID #0 08/12/17 isosorbide mononitrate 60 mg PO DAILY #180 tabcr 10/30/17 ibuprofen 600 mg PO TID #12 tab 12/20/17 Allergies Allergy/AdvReac Type Severity Reaction Status Date / Time amoxicillin Allergy Unverified 06/26/19 07:49 General Stated Complaint: PsychEval BRANDYN: 2 Review of Systems All systems reviewed & are unremarkable except as noted in HPI and below Constitutional Constitutional: Denies chills and Denies fever(s) ENT Ears, Nose, Mouth, and Throat: Denies change in voice Cardiovascular Cardiovascular: Denies chest pain and Denies dyspnea Respiratory Respiratory: Denies cough and Denies dyspnea Gastrointestinal Gastrointestinal: Denies abdominal pain, Denies nausea and Denies vomiting PFSH Social History Smoking/Tobacco Use Status: Never Alcohol Intake: never Drug use: Never In current or past relationships, have you been: other Do you feel safe at home: No Do you feel safe in your relationship?: No Exam Const General: no acute distress Orientation: alert HENMT Head: normal to inspection Ears: external ears normal General nose exam: external nose normal Mouth: moist mucous membranes Eyes General: appearance normal, both eyes and all related structures Neck Neck: normal visual inspection Resp Effort & Inspection: normal respiratory effort and able to speak in complete sentences Cardio Rate: regular rate Skin General skin exam: no rashes or lesions noted Neuro General: alert and oriented x3 Extrem General: normal to inspection Psych Appearance: disheveled Course Vital Signs Vital signs: Vital Signs Temperature 36.5 C 06/26/19 07:45 Pulse 73 06/26/19 07:45 Respiratory Rate 18 06/26/19 07:45 Blood Pressure 156/96 H 06/26/19 07:45 Pulse Oximetry 98 06/26/19 07:45 Temperature 36.5 C 06/26/19 07:45 Temperature Source Temporal Artery Scan 06/26/19 07:45 Pulse 73 06/26/19 07:45 Respiratory Rate 18 06/26/19 07:45 Respiratory Effort Non-Labored 06/26/19 07:45 Blood Pressure 156/96 H 06/26/19 07:45 Blood Pressure Position Sitting 06/26/19 07:45 Pulse Oximetry 98 06/26/19 07:45 Oxygen Delivery Method Room Air 06/26/19 07:45 Oxygen Flow Rate 0 06/26/19 07:45 Pain Level 0 06/26/19 07:45
[2019-06-26 08:14] LABS: Bilirubin Negative (Negative); Blood Negative (Negative); Clarity Clear (Clear); Glucose 500 mg/dL (Negative); Ketones 40 mg/dL (Negative); Leukocyte Esterase Negative (Negative); Nitrite Negative (Negative); Specific Gravity 1.015 (1.005-1.025); Urobilinogen 0.2 EU/dL (Up TO 0.2); pH 5.5 (5-8)
--- NOTE | 2019-06-26 08:18 | NUR.NOTE ---
Nursing Note: Per Sadnra Bird as disseminated through care management, ED MIDDLE SCHOOL HUMANITIES TEACHER able to document as CPSO as they are MIDDLE SCHOOL HUMANITIES TEACHER, though not CPI certified at this time. HS aware and agrees with this. MIDDLE SCHOOL HUMANITIES TEACHER 1:1 in direct observation of pt at this time.
[2019-06-26 08:29] LABS: *AMPHETAMINES SCREEN URINE Negative (Negative); *BARBITURATES SCREEN URINE Negative (Negative); *BENZODIAZEPINES SCREEN URINE Negative (Negative); Cannabinoids THC Negative (Negative); Cocaine Screen,Urine Negative (Negative); METHADONE URINE SCREEN Negative (Negative); OPIATES URINE SCREEN Negative (Negative)
[2019-06-26 08:34] LABS: Tricyclic Antidepressants Negative (Negative)
[2019-06-26 08:45] LABS: Abs Immature Grans 0.01 k/cumm (0.0-0.09); Absolute Basophil Count 0.02 k/cumm (0.0-0.2); Absolute Eosinophil Count 0.06 k/cumm (0.0-0.7); Absolute Lymphocyte Count 1.28 k/cumm (1.2-3.4); Absolute Monocyte Count 0.31 k/cumm (0.11-0.7); Absolute Neutrophil Count 5.77 k/cumm (1.2-6.7); Basophils % 0.3; Eosinophils % 0.8; HCT 43.7 % (40.0-50.0); HGB 15.3 g/dL (13.5-17.5); Immature Grans % 0.1; Lymphocytes % 17.2; Mean Corpuscular Hemoglobin 29.1 pg (27.0-33.0); Mean Corpuscular Volume 83.1 fL (80-95); Mean Platelet Volume 9.4 fL (8.0-11.0); Monocytes % 4.2; Neutrophils % 77.4; Platelet Count 239 x1000/uL (130-400); RBC 5.26 m/cumm (4.50-6.00); RBC Distribution Width 12.9 % (11.8-14.1); White Blood Cell Count 7.45 k/cumm (4.4-10.8)
[2019-06-26 09:11] LABS: ALT 48 U/L (16-63); AST 30 U/L (15-37); Alkaline Phosphatase 91 U/L (46-116); Anion Gap 14.1 mmol/L (3-11); BUN 22 mg/dL (7-18); Bilirubin, Total 0.9 mg/dL (0.2-1.0); CO2 21.9 mmol/L (21.0-32.0); CREATININE 1.19 mg/dL (0.70-1.30); Calcium 9.5 mg/dL (8.5-10.1); Chloride 100 mmol/L (98-107); Glucose 287 mg/dL (70-100); Potassium 5.3 mmol/L (3.5-5.1); Sodium 136 mmol/L (136-145); TSH (W/Ref FT4) 0.94 uIU/mL (0.36-3.74); Total Protein 7.8 g/dL (6.4-8.2)
[2019-06-26 09:14] LABS: Salicylate < 2.8 mg/dL (2.8-20.0)
[2019-06-26 09:17] LABS: Acetaminophen < 2 ug/mL (10-30)
[2019-06-26 09:24] LABS: ETHANOL BLOOD < 3.0 mg/dL (<3)
--- NOTE | 2019-06-26 09:34 | NUR.NOTE ---
Nursing Note: Mental health worker(Surjit)in to see patient at this time.
--- NOTE | 2019-06-26 10:27 | NUR.NOTE ---
Nursing Note: Note sent with [facility] heading to court in [facility], where pt has a court appointed appearance scheduled for 1230 today. Pt requests this, MD and mental health agree pt will not make this appearance as he will remain here until appropriate inpatient bed becomes available. Faxed at [phone].
--- NOTE | 2019-06-26 10:30 | PDOC.MHCN_ITS ---
Date of service: 06/26/19 Time of Service: 10:00 Mental Health Crisis Note Presenting Issue How did you arrive at the ED and why did you come: Patient arrives to [facility] ED with chief complaint of severe depression and suicidal ideation. Precipitating Factors Patient is a 54yo male with history of depression. He presented to the ER previously with severe depressive sx and non-specific generalized suicidal ideation following significant relationship issues with his of 36 years and subsequent forced court-ordered eviction from his home. Patient was admitted to [facility] for depression and SI following attempted OD with gabapentin (unspecified amount). He was voluntarily discharged from [facility] this month and since reports feeling severely depressed with persistent and escalating thoughts about wanting to in order to stop the emotional pain he is experiencing. He states that these thoughts have become extremely intrusive to the point of greatly impacting his daily functioning and advises that he has a variety of different methods that he has conceptualized (nothing specific divulged at time of assessment). Disposition BEHAVIOR: Normal/appropriate EYE CONTACT: Good MOOD: Depressed AFFECT: Congruent to mood APPETITE: Decreased SLEEP(trouble falling/staying asleep: Decreased/disturbed sleep Plan Seek voluntary in-patient psychiatric hospitalization for mood stabilization and safety. Signature Clinician's Name/Title: Fan Hernandez BA, Emergency Services Clinician
--- NOTE | 2019-06-26 11:44 | CMSP_ITS ---
- If Service Date Differs Date of service: 06/26/19 Time of Service: 11:45 Care Management Safety Plan Isiah is voluntary and remains in the ED at this time. Plan will be to remain in the ED while referrals are being reviewed. Isiah may move to the medical surgical floor today pending bed availability and possibility of transfer directly from the ED to psychiatric facility. VOLUNTARY FOR INPATIENT PSYCHIATRIC STABILIZATION. Patient is appropriate in all interactions since arriving at [facility]; Pt has demonstrated appropriate coping and communication skills, has articulated his or her needs and concerns and is fully engaged during staff interactions. Safety plan has been established with patient, and care team, to adhere to patient goals, identify restrictions based on behavioral status, address nutrition, and determine allowed personal belongings, tools for hygiene and personal care. Determine level of activity including ambulation, level of supervision, visitors, and determine privileges based on behaviors and level of engagement by pt. Huddle: MANUEL Tillman Chauffeur, MANUEL Sahu, Surjit, [facility] crisis, MANUEL Banks CM and plan reviewed with prior to huddle. SAFETY PLAN: Room 9 J.. 06/26/19 1. Will remain on suicide precautions. In Paper Clothes 2. Will remain in room under direct supervision of one-on-one staff at all times provided by CPSO, WOLF, LEATHER STAMPER spar machine operator helper. 3. May have paper cups, plates, finger foods as well as a metal spoon with which to eat meals. [facility] staff will be responsible for accounting of utensils after meals. 4. Follow [facility] Management of the Admitted Behavioral Health Patient policy. 5. Comfort bath system only. 6. No personal belongings 7. Visitors-No visitors at this time 8. Activities: Patient declines any activities at this time 9. Bathroom privileges with supervision 10. Phone: None at this time 11. Due to VOLUNTARY status, if patient wishes to leave [facility], the [facility] automobile body worker must be contacted to re-evaluate patient prior to patient exiting the [facility]3]. Patient is currently voluntarily at [facility] and seeking inpatient admission when a bed becomes available. [facility], [facility], and [place]. [facility] Frontline Cytology Supervisor will continue seeking placement. Please contact the Green Meat Grader Manager Trading ([phone]) and [facility] Cytology Supervisor ([phone]) for any needed changes in the Safety Plan. Safety plan has been provided to interdepartmental care team.
--- NOTE | 2019-06-26 11:44 | PDOC.CMSAFED ---
- If Service Date Differs Date of service: 06/26/19 Time of Service: 11:45 Care Management Safety Plan Isiah is voluntary and remains in the ED at this time. Plan will be to remain in the ED while referrals are being reviewed. Isiah may move to the medical surgical floor today pending bed availability and possibility of transfer directly from the ED to psychiatric facility. VOLUNTARY FOR INPATIENT PSYCHIATRIC STABILIZATION. Patient is appropriate in all interactions since arriving at [facility]; Pt has demonstrated appropriate coping and communication skills, has articulated his or her needs and concerns and is fully engaged during staff interactions. Safety plan has been established with patient, and care team, to adhere to patient goals, identify restrictions based on behavioral status, address nutrition, and determine allowed personal belongings, tools for hygiene and personal care. Determine level of activity including ambulation, level of supervision, visitors, and determine privileges based on behaviors and level of engagement by pt. Huddle: MANUEL Tillman Identification And Records Commander, MANUEL Sahu, Surjit, [facility] crisis, MANUEL Banks CM and plan reviewed with prior to huddle. SAFETY PLAN: Room 9 J. 06/26/19 1. Will remain on suicide precautions. In Paper Clothes 2. Will remain in room under direct supervision of one-on-one staff at all times provided by CPSO, WOLF, CLAIM EXAMINER hotel services supervisor. 3. May have paper cups, plates, finger foods as well as a metal spoon with which to eat meals. [facility] staff will be responsible for accounting of utensils after meals. 4. Follow [facility] Management of the Admitted Behavioral Health Patient policy. 5. Comfort bath system only. 6. No personal belongings 7. Visitors-No visitors at this time 8. Activities: Patient declines any activities at this time 9. Bathroom privileges with supervision 10. Phone: None at this time 11. Due to VOLUNTARY status, if patient wishes to leave [facility], the [facility] die try out worker must be contacted to re-evaluate patient prior to patient exiting the building. Patient is currently voluntarily at [facility] and seeking inpatient admission when a bed becomes available. [facility] ref[facility], [facility], and [place]. [facility] Frontline Capacitor Pack Press Operator will continue seeking placement. Please contact the Cardroom Drawing Runner Mining And Quarrying Machinery Repairer ([phone]) and [facility] Capacitor Pack Press Operator ([phone]) for any needed changes in the Safety Plan. Safety plan has been provided to interdepartmental care team.
--- NOTE | 2019-06-26 12:59 | CMPROGNOTE_ITS ---
- If Service Date Differs Date of service: 06/26/19 Time of Service: 12:59 Care Management Progress Note S/O: CM met with Isiah at the bedside he is tearful and does not make eye contact with this health science writer. Isiah refuses food, warmth, activities or comfort. Isiah states he has no reason to live without his and states his heart is broken. Isiah is known to this health science writer from his last emergency room visit and recent transfer to [facility] for psychiatric stabilization. Isiah states that there was a plan for follow up when he was discharged from [facility] however he cannot remember the name or the provider he was suppose to follow up with. He does report he went to that appointment at [facility] which was on 06/18/19. Isiah reports he has not been reliable with medications since his discharge and identifies the following barriers including not having access because he did not update his delivery address to [facility]. Per Isiah's report the medications could not be delivered to his estranged spouses home because she declined the delivery. Isiah has an active restraining order against him from his spouse and is not allowed to have any contact with her including no third republican contact. Isiah was prescribed Cymbalta 30 mg at [facility].CM contacted [facility] and reviewed the discharge plan from his last admission Aurea Ramirez is the Services Tech at [facility] and she reports Isiah was discharged on 06/15/19 with a follow up scheduled with [facility] and primary care provider. She reports [facility] may have bed availability and request contact to the transfer center. CM did contact the transfer center at [facility] and they declined a referral. Current referrals pending at [facility], [facility], and [facility]. CM contacted [facility] and updated address for medication delivery. Isiah will remain in the ED at this time. His spouse if she calls should not receive information related to his care or discharge plan. Isiah has not requested to speak to anyone at this time. Isiah has met with [facility] and understands that he will be transferred to psychiatric facility once a bed is offered. CM reviewed referrals options and he agrees to the options including [facility]. P: Isiah is awaiting psychiatric placement. He is in the ED with SI and has a safety plan in place. When Isiah is transferred he will need forepart reducer transportation.
--- NOTE | 2019-06-26 12:59 | PDOC.ERCMPRO ---
- If Service Date Differs Date of service: 06/26/19 Time of Service: 12:59 Care Management Progress Note S/O: CM met with Isiah at the bedside he is tearful and does not make eye contact with this typewriter assembly and parts inspector. Isiah refuses food, warmth, activities or comfort. Isiah states he has no reason to live without his and states his heart is broken. Isiah is known to this typewriter assembly and parts inspector from his last emergency room visit and recent transfer to [facility] for psychiatric stabilization. Isiah states that there was a plan for follow up when he was discharged from [facility] however he cannot remember the name or the provider he was suppose to follow up with. He does report he went to that appointment at [facility] which was on 06/18/19. Isiah reports he has not been reliable with medications since his discharge and identifies the following barriers including not having access because he did not update his delivery address to [facility]. Per Isiah's report the medications could not be delivered to his estranged spouses home because she declined the delivery. Isiah has an active restraining order against him from his spouse and is not allowed to have any contact with her including no third green party contact. Isiah was prescribed Cymbalta 30 mg at [facility].CM contacted [facility] and reviewed the discharge plan from his last admission Aurea Ramirez is the Tanyard Worker at [facility] and she reports Isiah was discharged on 06/15/19 with a follow up scheduled with [facility] and primary care provider. She reports [facility] may have bed availability and request contact to the transfer center. CM did contact the transfer center at [facility] and they declined a referral. Current referrals pending at [facility], [facility], and [facility]. CM contacted [facility] and updated address for medication delivery. Isiah will remain in the ED at this time. His spouse if she calls should not receive information related to his care or discharge plan. Isiah has not requested to speak to anyone at this time. Isiah has met with [facility] and understands that he will be transferred to psychiatric facility once a bed is offered. CM reviewed referrals options and he agrees to the options [facility]. P: Isiah is awaiting psychiatric placement. He is in the ED with SI and has a safety plan in place. When Isiah is transferred he will need chinese teacher transportation.
--- NOTE | 2019-06-26 14:50 | NUR.NOTE ---
Nursing Note:Pt medications verified that pt has these prescriptions, pt sts that he has not been taking any medications.
--- NOTE | 2019-06-26 14:53 | NUR.NOTE ---
Nursing Note: Attempted to give report to [facility], unable to accept nurse to nurse report. [facility] states they will call back.
--- NOTE | 2019-06-26 15:17 | NUR.NOTE ---
Nursing Note: Nurse to nurse report given to Josep JACKSON (female) at [facility]. All questions answered per receiving nurse report.
[2019-06-26 15:18] VITALS: BP 141/80; PULSE 70; RESP 16; TEMP 36.5; O2SAT 98
== END 2019-06-26 15:35 | disposition short-term general hospital (02) ==
PROVIDERS: Emergency Provider Emergency Medicine; PCP Nurse Practitioner Family
DX: F32.9 Major depressive disorder, single episode, unspecified (principal); R45.851 Suicidal ideations; I25.10 Atherosclerotic heart disease of native coronary artery without angina pectoris; E11.9 Type 2 diabetes mellitus without complications; I10 Essential (primary) hypertension
CPT/HCPCS: 36415; 80053; 80307; 99285; 80320; 80329; 81003; 84443; 85025; 99284

== ENCOUNTER 2019-09-21 13:05 | Outpatient (REF) | payer BC, SELFPAY ==
[2019-09-21 22:14] LABS: Abs Immature Grans 0.03 k/cumm (0.0-0.09); Absolute Basophil Count 0.03 k/cumm (0.0-0.2); Absolute Eosinophil Count 0.41 k/cumm (0.0-0.7); Absolute Lymphocyte Count 1.34 k/cumm (1.2-3.4); Absolute Neutrophil Count 4.69 k/cumm (1.2-6.7); Basophils % 0.4; Eosinophils % 5.8; HCT 40.9 % (40.0-50.0); HGB 13.9 g/dL (13.5-17.5); Immature Grans % 0.4 %; Lymphocytes % 18.9; Mean Corpuscular Hemoglobin 28.4 pg (27.0-33.0); Mean Corpuscular Volume 83.6 fL (80-95); Mean Platelet Volume 10.3 fL (8.0-11.0); Monocytes % 8.5; Platelet Count 196 x1000/uL (130-400); RBC 4.89 m/cumm (4.50-6.00); RBC Distribution Width 13.9 % (11.8-14.1)
[2019-09-21 22:18] LABS: Magnesium 1.3 mg/dL (1.8-2.4); Uric Acid 3.6 mg/dL (3.5-7.2)
[2019-09-21 22:27] LABS: Iron 50 ug/dL (65-175); Total Iron Binding Capacity 367 ug/dL (250-450); Transferrin Sat 14 % (20-55)
== END 2019-09-21 13:25 ==
LOC: NCHCN 13:05
PROVIDERS: PCP Nurse Practitioner Family; Visit Provider Nurse Practitioner Family
DX: E83.42 Hypomagnesemia (principal); D50.9 Iron deficiency anemia, unspecified; F32.9 Major depressive disorder, single episode, unspecified; E78.5 Hyperlipidemia, unspecified; E11.9 Type 2 diabetes mellitus without complications; M10.9 Gout, unspecified; R25.2 Cramp and spasm; I25.10 Atherosclerotic heart disease of native coronary artery without angina pectoris
CPT/HCPCS: 83540; 83550; 83735; 84550; 85025

== ENCOUNTER 2019-12-18 09:01 | Outpatient (REF) | payer BC, SELFPAY ==
[2019-12-18 21:13] LABS: Iron 47 ug/dL (65-175); Magnesium 1.5 mg/dL (1.8-2.4)
== END 2019-12-18 09:21 ==
LOC: NCHCN 09:01
PROVIDERS: PCP Nurse Practitioner Family; Visit Provider Nurse Practitioner Family
DX: D50.9 Iron deficiency anemia, unspecified (principal); E83.42 Hypomagnesemia
CPT/HCPCS: 83540; 83735

== ENCOUNTER 2020-03-28 21:56 | Outpatient (REF) | payer BC, SELFPAY ==
[2020-03-28 21:28] LABS: Magnesium 1.9 mg/dL (1.8-2.4)
[2020-03-28 21:31] LABS: Iron 59 ug/dL (65-175); Total Iron Binding Capacity 388 ug/dL (250-450); Transferrin Sat 15 % (20-55)
[2020-03-28 21:35] LABS: Abs Immature Grans 0.05 k/cumm (0.0-0.09); Absolute Basophil Count 0.04 k/cumm (0.0-0.2); Absolute Eosinophil Count 0.37 k/cumm (0.0-0.7); Absolute Lymphocyte Count 1.62 k/cumm (1.2-3.4); Absolute Monocyte Count 1.01 k/cumm (0.11-0.7); Absolute Neutrophil Count 6.22 k/cumm (1.2-6.7); Basophils % 0.4; HCT 43.9 % (40.0-50.0); HGB 14.9 g/dL (13.5-17.5); Immature Grans % 0.5 %; Lymphocytes % 17.4; Mean Corp. HGB Concentration 33.9 g/dL (32.0-36.0); Mean Corpuscular Hemoglobin 28.1 pg (27.0-33.0); Mean Corpuscular Volume 82.7 fL (80-95); Mean Platelet Volume 10.3 fL (8.0-11.0); Monocytes % 10.8; Neutrophils % 66.9; Platelet Count 201 x1000/uL (130-400); RBC 5.31 m/cumm (4.50-6.00); RBC Distribution Width 15.1 % (11.8-14.1); White Blood Cell Count 9.31 k/cumm (4.4-10.8)
== END 2020-03-28 22:16 ==
LOC: NCHCN 21:56
PROVIDERS: PCP Nurse Practitioner Family; Visit Provider Nurse Practitioner Family
DX: R19.7 Diarrhea, unspecified (principal); E83.42 Hypomagnesemia; D50.9 Iron deficiency anemia, unspecified; F32.9 Major depressive disorder, single episode, unspecified; R25.2 Cramp and spasm; E11.9 Type 2 diabetes mellitus without complications; E78.5 Hyperlipidemia, unspecified; I25.10 Atherosclerotic heart disease of native coronary artery without angina pectoris
CPT/HCPCS: 83540; 83550; 83735; 85025

== ENCOUNTER 2020-05-11 12:21 | Outpatient (REF) | payer BC, SELFPAY ==
[2020-05-11 21:39] LABS: Anion Gap 7.4 mmol/L (3-11); BUN 29 mg/dL (7-18); CO2 25.6 mmol/L (21.0-32.0); CREATININE 1.52 mg/dL (0.70-1.30); Calcium 9.2 mg/dL (8.5-10.1); Chloride 104 mmol/L (98-107); Estimated GFR 48.03 (mL/min/1.73m2); Glucose 65 mg/dL (74-106); MCH 27.7 pg (27.0-33.0); MCHC 32.6 % (32.0-36.0); MCV 85.1 fL (80-95); MPV 9.7 fL (8.0-11.0); Magnesium 1.9 mg/dL (1.8-2.4); Platelet Count 205 10^3/uL (130-400); Potassium 4.6 mmol/L (3.5-5.1); RBC 5.05 10^6/uL (4.36-5.78); RDW 14.4 % (11.8-14.1); RDW-SD 44.3 fL; Sodium 137 mmol/L (136-145); WBC 7.28 10^3/uL (4.4-10.8)
[2020-05-11 22:22] LABS: Hemoglobin A1C 6.8 % (<5.7)
== END 2020-05-11 12:41 ==
LOC: NCHCN 12:21
PROVIDERS: PCP Nurse Practitioner Family
DX: E11.9 Type 2 diabetes mellitus without complications (principal); I25.10 Atherosclerotic heart disease of native coronary artery without angina pectoris; D50.9 Iron deficiency anemia, unspecified; F43.21 Adjustment disorder with depressed mood
CPT/HCPCS: 80048; 85027; 83036; 83735

== ENCOUNTER 2020-09-15 13:52 | Outpatient (REF) | payer BC, SELFPAY ==
[2020-09-15 21:19] LABS: Abs Immature Grans 0.02 10^3/uL (0.0-0.06); Absolute Basophil Count 0.04 10^3/uL (0.0-0.2); Absolute Eosinophil Count 0.24 10^3/uL (0.0-0.7); Absolute Lymphocyte Count 1.19 10^3/uL (1.2-3.4); Absolute Monocyte Count 0.76 10^3/uL (0.1-0.8); Absolute Neutrophil Count 5.64 10^3/uL (1.2-6.7); Basophils % 0.5; HCT 40.7 % (40.0-50.0); HGB 13.9 g/dL (13.5-17.5); Immature Grans % 0.3; Lymphocytes % 15.1; MCH 28.6 pg (27.0-33.0); MCHC 34.2 % (32.0-36.0); MCV 83.7 fL (80-95); MPV 9.5 fL (8.0-11.0); Monocytes % 9.6; Neutrophils % 71.5; Nucleated RBC 0 %; Platelet Count 195 10^3/uL (130-400); RBC 4.86 10^6/uL (4.36-5.78); RDW 13.8 % (11.8-14.1); RDW-SD 42.2 fL; WBC 7.89 10^3/uL (4.4-10.8)
[2020-09-15 21:27] LABS: Iron 45 ug/dL (65-175); Total Iron Binding Capacity 360 ug/dL (250-450); Transferrin Sat 13 % (20-55)
[2020-09-15 21:31] LABS: ALT 40 U/L (16-63); AST 26 U/L (15-37); Albumin 4.3 g/dL (3.4-5.0); Alkaline Phosphatase 70 U/L (46-116); Anion Gap 9.9 mmol/L (3-11); BUN 22 mg/dL (7-18); Bilirubin, Total 0.4 mg/dL (0.2-1.0); CO2 26.1 mmol/L (21.0-32.0); CREATININE 1.45 mg/dL (0.70-1.30); Calcium 9.1 mg/dL (8.5-10.1); Chloride 102 mmol/L (98-107); Estimated GFR 50.72 (mL/min/1.73m2); Glucose 79 mg/dL (74-106); Potassium 4.4 mmol/L (3.5-5.1); Sodium 138 mmol/L (136-145); Total Protein 7.3 g/dL (6.4-8.2)
[2020-09-15 21:59] LABS: Ferritin 104 ng/mL (26-388)
== END 2020-09-15 14:12 ==
LOC: NCHCN 13:52
PROVIDERS: PCP Nurse Practitioner Family; Visit Provider Nurse Practitioner Family
DX: D50.9 Iron deficiency anemia, unspecified (principal); E11.9 Type 2 diabetes mellitus without complications; I10 Essential (primary) hypertension; M10.9 Gout, unspecified; F32.9 Major depressive disorder, single episode, unspecified; E83.42 Hypomagnesemia; I25.10 Atherosclerotic heart disease of native coronary artery without angina pectoris
CPT/HCPCS: 80053; 82728; 83540; 83550; 84550; 85025

== ENCOUNTER 2021-03-09 13:44 | Outpatient (REF) | payer BC, SELFPAY ==
[2021-03-09 20:36] LABS: Abs Immature Grans 0.02 10^3/uL (0.0-0.06); Absolute Basophil Count 0.04 10^3/uL (0.0-0.2); Absolute Eosinophil Count 0.25 10^3/uL (0.0-0.7); Absolute Lymphocyte Count 1.46 10^3/uL (1.2-3.4); Absolute Monocyte Count 0.58 10^3/uL (0.1-0.8); Absolute Neutrophil Count 4.66 10^3/uL (1.2-6.7); Basophils % 0.6; Eosinophils % 3.6; HCT 42.6 % (40.0-50.0); HGB 14.4 g/dL (13.5-17.5); Immature Grans % 0.3; Lymphocytes % 20.8; MCH 28.6 pg (27.0-33.0); MCHC 33.8 % (32.0-36.0); MCV 84.5 fL (80-95); MPV 9.5 fL (8.0-11.0); Monocytes % 8.3; Neutrophils % 66.4; Nucleated RBC 0 %; Platelet Count 188 10^3/uL (130-400); RBC 5.04 10^6/uL (4.36-5.78); RDW 13.8 % (11.8-14.1); RDW-SD 42.4 fL; WBC 7.01 10^3/uL (4.4-10.8)
[2021-03-09 21:11] LABS: Iron 85 ug/dL (65-175)
[2021-03-09 21:12] LABS: Anion Gap 12.7 mmol/L (3-11); BUN 26 mg/dL (7-18); CO2 26.3 mmol/L (21.0-32.0); CREATININE 1.6 mg/dL (0.70-1.30); Calcium 9.9 mg/dL (8.5-10.1); Chloride 102 mmol/L (98-107); Glucose 106 mg/dL (74-106); Magnesium 1.9 mg/dL (1.8-2.4); Potassium 4.5 mmol/L (3.5-5.1); Sodium 141 mmol/L (136-145)
[2021-03-10 18:03] LABS: PSA, Screening 0.6 ng/mL (0.0-3.5)
== END 2021-03-09 13:45 | disposition home or self-care (01) ==
LOC: NCHCN 13:44
PROVIDERS: PCP Nurse Practitioner Family; Visit Provider Nurse Practitioner Family
DX: E78.5 Hyperlipidemia, unspecified (principal); E11.22 Type 2 diabetes mellitus with diabetic chronic kidney disease; N18.9 Chronic kidney disease, unspecified; E83.42 Hypomagnesemia; D50.9 Iron deficiency anemia, unspecified; F32.9 Major depressive disorder, single episode, unspecified; E11.40 Type 2 diabetes mellitus with diabetic neuropathy, unspecified; I25.10 Atherosclerotic heart disease of native coronary artery without angina pectoris
CPT/HCPCS: 80048; 84153; 83540; 83735; 85025

== ENCOUNTER 2021-05-22 02:47 | Outpatient (CLI) | payer BC, SELFPAY ==
[2021-05-22 13:05] LABS: Hemoglobin A1C 9.6 % (<5.7)
[2021-05-22 13:37] LABS: COMMENT (LAB VIEW ONLY) 93.35 mg/dL; Microalb ug/mg Crea 14.4 ug/mg Cr
[2021-05-22 13:47] LABS: Anion Gap 7.1 mmol/L (3-11); BUN 30 mg/dL (7-18); CO2 23.9 mmol/L (21.0-32.0); Calcium 8.8 mg/dL (8.5-10.1); Chloride 105 mmol/L (98-107); Estimated GFR 34.86 (mL/min/1.73m2); Glucose 268 mg/dL (74-106); LDL CHOLESTEROL 57 mg/dL (<100); Potassium 4.9 mmol/L (3.5-5.1); Sodium 136 mmol/L (136-145); TSH 1.31 uIU/mL (0.36-3.74)
[2021-05-22 14:01] LABS: Vitamin D 25 Total 54.1 ng/mL (30-100)
== END 2021-05-22 02:48 | disposition home or self-care (01) ==
LOC: LBO 02:47
PROVIDERS: PCP Nurse Practitioner Family; Visit Provider Internal Medicine Endocrinology, Diabetes & Metabolism
DX: E11.40 Type 2 diabetes mellitus with diabetic neuropathy, unspecified (principal); R53.83 Other fatigue; E55.9 Vitamin D deficiency, unspecified
CPT/HCPCS: 36415; 80048; 82306; 83721; 82043; 82570; 83036; 84443

== ENCOUNTER 2021-10-17 15:30 | Outpatient (REF) | payer BC, SELFPAY ==
[2021-10-17 15:00] LABS: Abs Immature Grans 0.03 10^3/uL (0.0-0.06); Absolute Basophil Count 0.03 10^3/uL (0.0-0.2); Absolute Eosinophil Count 0.24 10^3/uL (0.0-0.7); Absolute Lymphocyte Count 1.62 10^3/uL (1.2-3.4); Absolute Monocyte Count 0.52 10^3/uL (0.1-0.8); Absolute Neutrophil Count 4.81 10^3/uL (1.2-6.7); Basophils % 0.4; Eosinophils % 3.3; HCT 43.5 % (40.0-50.0); HGB 14.4 g/dL (13.5-17.5); Immature Grans % 0.4; Lymphocytes % 22.3; MCH 28.5 pg (27.0-33.0); MCHC 33.1 % (32.0-36.0); MCV 86.1 fL (80-95); MPV 9.9 fL (8.0-11.0); Monocytes % 7.2; Neutrophils % 66.4; Nucleated RBC 0 %; Platelet Count 194 10^3/uL (130-400); RBC 5.05 10^6/uL (4.36-5.78); RDW-SD 40.5 fL; WBC 7.25 10^3/uL (4.4-10.8)
[2021-10-17 15:02] LABS: Iron 38 ug/dL (65-175); Total Iron Binding Capacity 344 ug/dL (250-450); Transferrin Sat 11 % (20-55)
[2021-10-17 15:06] LABS: ALT 46 U/L (16-63); AST 30 U/L (15-37); Albumin 4.2 g/dL (3.4-5.0); Alkaline Phosphatase 93 U/L (46-116); Anion Gap 8.7 mmol/L (3-11); BUN 19 mg/dL (7-18); Bilirubin, Total 0.3 mg/dL (0.2-1.0); CO2 27.3 mmol/L (21.0-32.0); CREATININE 1.5 mg/dL (0.70-1.30); Calcium 9.2 mg/dL (8.5-10.1); Chloride 104 mmol/L (98-107); Estimated GFR 48.59 (mL/min/1.73m2); Glucose 82 mg/dL (74-106); Potassium 4.7 mmol/L (3.5-5.1); Sodium 140 mmol/L (136-145); Total Protein 7.4 g/dL (6.4-8.2); Uric Acid 4.6 mg/dL (3.5-7.2)
[2021-10-17 15:52] LABS: Vitamin B12 1682 pg/mL (193-986)
[2021-10-18 18:21] LABS: Ferritin 53 ng/mL (22-322)
== END 2021-10-17 15:31 | disposition home or self-care (01) ==
LOC: NCHCN 15:30
PROVIDERS: PCP Nurse Practitioner Family; Visit Provider Nurse Practitioner Family
DX: E11.9 Type 2 diabetes mellitus without complications (principal); I10 Essential (primary) hypertension; I25.10 Atherosclerotic heart disease of native coronary artery without angina pectoris; R25.1 Tremor, unspecified; N18.9 Chronic kidney disease, unspecified; E83.42 Hypomagnesemia; D50.9 Iron deficiency anemia, unspecified; M10.9 Gout, unspecified
CPT/HCPCS: 80053; 82607; 82728; 83540; 83550; 84550; 85025

== ENCOUNTER 2022-08-02 16:50 | Outpatient (REF) | payer BC, SELFPAY ==
[2022-08-02 21:48] LABS: Abs Immature Grans 0.04 10^3/uL (0.0-0.06); Absolute Basophil Count 0.02 10^3/uL (0.0-0.2); Absolute Eosinophil Count 0.11 10^3/uL (0.0-0.7); Absolute Lymphocyte Count 1.03 10^3/uL (1.2-3.4); Absolute Monocyte Count 0.52 10^3/uL (0.1-0.8); Absolute Neutrophil Count 6.99 10^3/uL (1.2-6.7); Basophils % 0.2; Eosinophils % 1.3; HCT 40.4 % (40.0-50.0); HGB 13.8 g/dL (13.5-17.5); Immature Grans % 0.5; Lymphocytes % 11.8; MCH 28.6 pg (27.0-33.0); MCHC 34.2 % (32.0-36.0); MCV 84 fL (80-95); MPV 9.9 fL (8.0-11.0); Neutrophils % 80.2; Platelet Count 200 10^3/uL (130-400); RBC 4.83 10^6/uL (4.36-5.78); RDW 13.4 % (11.8-14.1); RDW-SD 41.2 fL; WBC 8.71 10^3/uL (4.4-10.8)
[2022-08-02 21:55] LABS: Iron 48 ug/dL (65-175); Total Iron Binding Capacity 348 ug/dL (250-450); Transferrin Sat 14 % (20-55)
[2022-08-02 22:25] LABS: ALT 30 U/L (16-63); AST 27 U/L (15-37); Albumin 3.9 g/dL (3.4-5.0); Alkaline Phosphatase 93 U/L (46-116); Anion Gap 9.2 mmol/L (3-11); BUN 27 mg/dL (7-18); Bilirubin, Total 0.4 mg/dL (0.2-1.0); CO2 27.8 mmol/L (21.0-32.0); CREATININE 1.6 mg/dL (0.70-1.30); Calcium 9.4 mg/dL (8.5-10.1); Chloride 100 mmol/L (98-107); Estimated GFR 50.26 (mL/min/1.73m2); Ferritin 173 ng/mL (26-388); Glucose 97 mg/dL (74-106); Magnesium 1.6 mg/dL (1.8-2.4); Potassium 4.4 mmol/L (3.5-5.1); Sodium 137 mmol/L (136-145); Total Protein 7.7 g/dL (6.4-8.2)
[2022-08-02 22:35] LABS: Uric Acid 5.6 mg/dL (3.5-7.2)
== END 2022-08-02 16:51 | disposition home or self-care (01) ==
LOC: NCHCN 16:50
PROVIDERS: PCP Nurse Practitioner Family; Visit Provider Nurse Practitioner Family
DX: E11.9 Type 2 diabetes mellitus without complications (principal); D50.9 Iron deficiency anemia, unspecified; E83.42 Hypomagnesemia; N18.9 Chronic kidney disease, unspecified
CPT/HCPCS: 80053; 82728; 83540; 83550; 83735; 84550; 85025

== ENCOUNTER 2022-09-20 12:27 | Emergency (ER) | payer BC, SELFPAY ==
[2022-09-20 12:28] VITALS: BP 140/86; PULSE 100; RESP 17; TEMP 36.8; O2SAT 96
--- NOTE | 2022-09-20 12:45 | DI.RAD_ITS ---
Exam(s) XR KNEE LT 4V AP,LAT,JARED,PAT EXAM: XR KNEE LT 4V AP,LAT,JARED,PAT CLINICAL HISTORY: Fall, Prepatellar swelling,. TECHNIQUE: 2D digital imaging was performed. COMPARISON: CR RIGHT KNEE 3 VIEWS from 01/30/2011 FINDINGS: Four views: There is prominent soft tissue swelling anteriorly between the patella and anterior tibial tubercle a nterior to the patellar ligament. No patellar fracture evident. No radiopaque foreign body. No rad iographic evidence of osteomyelitis. No obvious degenerative changes in the knee joint. No fractures. No obvious joint effusion evident. Bone density is normal. No osseous lesions. IMPRESSION: Anterior soft tissue swelling as described above. No fractures. No obvious knee joint effusion. DATA REPOSITORY: RADIATION DOSE DELIVERED:
--- NOTE | 2022-09-20 12:59 | W.ED.GENAD ---
Discharge Plan Disposition Patient Disposition: Home Condition: Stable Discharge Details Clinical Impression: Bursitis due to trauma Primary Care Provider: Sravani Salas ED Provider: Melba Jackson Home Meds and New Rx's Prescriptions: Continued metoprolol succinate 25 MG tablet extended release 24 hr 50 mg PO DAILY Qty: 3 atorvastatin 20 MG tablet 40 mg PO DAILY isosorbide mononitrate 30 MG tablet extended release 24 hr 60 mg PO DAILY Qty: 180 3RF lisinopril 40 mg tablet 40 mg PO DAILY gabapentin 600 MG tablet 300 mg DIRECTED Label Comments: Takes 1200 mg daily over 3 doses allopurinol 300 MG tablet 300 mg PO DAILY magnesium oxide 400 MG tablet 400 mg PO DAILY Qty: 30 0RF nitroglycerin [Nitrostat] 0.4 MG tablet, sublingual 0.4 mg Sublingual Q5 MIN PRN X3 PRNQty: 100 0RF naltrexone 50 MG tablet 4 mg PO DIRECTED Humulin R U-500 (Conc) Insulin 500 UNIT/ML solution 500 unit SQ DIRECTED glimepiride [Amaryl] 4 MG tablet 8 mg PO DAILY metformin 500 MG tablet extended release 24 hr 1,000 mg PO BID Qty: 0 0RF Rx Instructions: restart 08/14/2017 ferrous sulfate 325 mg (65 mg iron) Tablet 325 mg PO DAILY duloxetine 60 mg Capsule,Delayed Release(Dr/Ec) 60 mg PO DAILY ibuprofen 600 MG tablet 600 mg PO TID Qty: 12 0RF Rx Instructions: take with food aspirin 325 MG tablet 325 mg PO DAILY Discharge Instructions Instructions: Knee Bursitis (ED) Additional Instructions: No evidence of fracture noted on x-ray. I do suspect bursitis caused by trauma. Rest, ice, compression elevation. Wear the Sachin wrap daily. May ice it every 20 minutes for the first 2 to 3 days. Keep it elevated when sitting or lying down. May take Tylenol as needed for anti-inflammatory. If it gets any worse red swelling or having a hard time moving your knee please follow-up with orthopedics. Follow up with primary care provider in 3-5 days. Return to ED sooner if any worsening or concerns. Increase oral fluids. Referrals: Michel Ayala MD [ [facility] STAFF PHYSICIAN] - Return if symptoms worsen Discharge Data Discharge Date/Time-TO BE ENTERED AT DEPARTURE: 09/20/22 14:25 Medical Decision Making 57-year-old male presents to the ER with a chief complaint of left knee swelling status post 2 subsequent falls a few days ago. He does have an abrasion noted to his knee and some prepatellar swelling. He is ambulatory is able to walk on it he has full range of motion. No surrounding erythema or warmth. Differential diagnosis includes but not limited to bursitis, effusion, occult fracture. X-ray 4 view knee ordered to rule out fracture or dislocation. See x-ray results below, no fractures no obvious joint effusion. Patient was given Sachin wrap. I did discuss RICE procedures with patient. And follow-up with orthopedics. Patient verbalized understanding. This text was generated using Palisade Systemsation system, please disregard any oddities of phrase or misspellings. Imaging Data Radiologic Study: Imaging: X-Ray Radiologist's impression: EXAM:? XR KNEE LT 4V AP,LAT,JARED,PAT CLINICAL HISTORY: ? Fall, Prepatellar swelling,. ? TECHNIQUE:? 2D digital imaging was performed. COMPARISON:? CR RIGHT KNEE 3 VIEWS from 01/30/2011 FINDINGS: Four views: There is prominent soft tissue swelling anteriorly between the patella and anterior tibial tubercle anterior to the patellar ligament.? No patellar fracture evident.? No radiopaque foreign body.? No radiographic evidence of osteomyelitis. No obvious degenerative changes in the knee joint.? No fractures.? No obvious joint effusion evident.? Bone density is normal.? No osseous lesions. IMPRESSION: Anterior soft tissue swelling as described above.? No fractures.? No obvious knee joint effusion. HPI General Mode of arrival: ambulatory. Date/Time Provider Initiated Documentation: 09/20/22 12:53. Limitations to Documentation: no limitations. Information obtained by: patient, RN notes reviewed and old records reviewed. HPI Narrative: 57-year-old male presents to the ER with a chief complaint of left knee swelling status post 2 subsequent falls a few days ago. He does have an abrasion noted to his knee and some prepatellar swelling. He is ambulatory is able to walk on it he has full range of motion. No surrounding erythema or warmth. He has had no surgeries on this knee. Does have a past medical history of type 2 diabetes mellitus, hypertension, coronary artery disease and angina he does take aspirin daily he has no other complaints. Related Data Home Medications Medication Instructions Recorded Confirmed allopurinol 300 mg tablet 300 mg PO DAILY 03/11/15 09/20/22 gabapentin 600 mg tablet 300 mg DIRECTED 03/11/15 09/20/22 magnesium oxide 400 mg (241.3 mg 400 mg PO DAILY #30 tabs 03/11/15 09/20/22 magnesium) tablet nitroglycerin 0.4 mg sublingual 0.4 mg sublingual Q5 MIN PRN X3 03/11/15 09/20/22 tablet (Nitrostat) PRN #100 tabs metoprolol succinate 25 mg 50 mg PO DAILY #3 tab-caps 05/21/15 09/20/22 tablet,extended release 24 hr atorvastatin 20 mg tablet 40 mg PO DAILY 06/29/15 09/20/22 glimepiride 4 mg tablet (Amaryl) 8 mg PO DAILY 08/11/17 09/20/22 insulin regular hum U-500 conc 500 500 unit SQ DIRECTED 08/11/17 09/20/22 unit/mL subcutaneous soln (Humulin R U-500 (Concentrated) Insulin) naltrexone 50 mg tablet 4 mg PO DIRECTED 08/11/17 09/20/22 metformin 500 mg tablet,extended 1,000 mg PO BID ##0 08/12/17 09/20/22 release 24 hr isosorbide mononitrate 30 mg 60 mg PO DAILY ##180 10/30/17 09/20/22 tablet,extended release 24 hr ibuprofen 600 mg tablet 600 mg PO TID #12 tabs 12/20/17 09/20/22 aspirin 325 mg tablet 325 mg PO DAILY 02/06/18 09/20/22 lisinopril 40 mg tablet 40 mg PO DAILY 01/16/19 09/20/22 duloxetine 60 mg capsule,delayed 60 mg PO DAILY 06/09/19 09/20/22 release ferrous sulfate 325 mg (65 mg 325 mg PO DAILY 06/09/19 09/20/22 iron) tablet Previous Rx's Medication Instructions Recorded magnesium oxide 400 mg (241.3 mg 400 mg PO DAILY #30 tabs 03/11/15 magnesium) tablet nitroglycerin 0.4 mg sublingual 0.4 mg sublingual Q5 MIN PRN X3 03/11/15 tablet (Nitrostat) PRN #100 tabs metformin 500 mg tablet,extended 1,000 mg PO BID ##0 08/12/17 release 24 hr isosorbide mononitrate 30 mg 60 mg PO DAILY ##180 10/30/17 tablet,extended release 24 hr ibuprofen 600 mg tablet 600 mg PO TID #12 tabs 12/20/17 Allergies Allergy/AdvReac Type Severity Reaction Status Date / Time amoxicillin Allergy Unverified 09/20/22 12:32 General Stated Complaint: Orthopedic BRANDYN: 4 Review of Systems All systems reviewed & are unremarkable except as noted in HPI and below Musculoskeletal Musculoskeletal: Reports as per HPI and Reports joint swelling PFSH All Active Problems (Updated 09/20/22 @ 14:19 by Melba Jackson NP) Bursitis due to trauma (Acute) Angina pectoris (Acute) Coronary artery disease (Acute) Type 2 diabetes mellitus (Acute) Hypertension (Acute) Social History Smoking/Tobacco Use Status: Never Smoking risk assessment performed?: Yes Alcohol Intake: never Drug use: Never Substance use type: does not use In current or past relationships, have you been: other Do you feel safe at home: No Do you feel safe in your relationship?: No Exam Extrem Left lower extremity: knee Details: tenderness, swelling, knee ligament exam normal and abrasion knee anterior Details: single; no lacerations and no unusual warmth Course Vital Signs Vital signs: Vital Signs Temperature 36.8 C 09/20/22 12:28 Pulse 100 H 09/20/22 12:28 Respiratory Rate 17 09/20/22 12:28 Blood Pressure 140/86 09/20/22 12:28 Pulse Oximetry 96 09/20/22 12:28 Temperature 36.8 C 09/20/22 12:28 Temperature Source Temporal Artery Scan 09/20/22 12:28 Pulse 100 H 09/20/22 12:28 Respiratory Rate 17 09/20/22 12:28 Respiratory Effort 09/20/22 12:31 Blood Pressure 140/86 09/20/22 12:28 Blood Pressure Position Sitting 09/20/22 12:28 Pulse Oximetry 96 09/20/22 12:28 Oxygen Delivery Method Room Air 09/20/22 12:28 Oxygen Flow Rate 0 09/20/22 12:28 Pain Level 0 09/20/22 12:28
== END 2022-09-20 14:25 | disposition home or self-care (01) ==
PROVIDERS: Emergency Provider Registered Nurse Emergency; PCP Nurse Practitioner Family
DX: M70.52 Other bursitis of knee, left knee (principal); S80.212A Abrasion, left knee, initial encounter; I10 Essential (primary) hypertension; E11.9 Type 2 diabetes mellitus without complications; I25.10 Atherosclerotic heart disease of native coronary artery without angina pectoris; Z79.4 Long term (current) use of insulin; Z79.84 Long term (current) use of oral hypoglycemic drugs; Z79.82 Long term (current) use of aspirin; W19.XXXA Unspecified fall, initial encounter
CPT/HCPCS: 99283; 73564; 99282

== ENCOUNTER 2022-10-25 14:54 | Outpatient (CLI) | payer BC, SELFPAY ==
[2022-10-25 14:14] LABS: Hemoglobin A1C 9.2 % (<5.7)
== END 2022-10-25 14:55 | disposition home or self-care (01) ==
LOC: LBO 14:55
PROVIDERS: PCP Nurse Practitioner Family; Visit Provider Student in an Organized Health Care Education/Training Program
DX: E11.9 Type 2 diabetes mellitus without complications (principal)
CPT/HCPCS: 36415; 83036

== ENCOUNTER 2023-01-09 13:53 | Outpatient (REF) | payer MEDICAID, SELFPAY ==
[2023-01-09 14:27] LABS: Anion Gap 10.4 mmol/L (3-11); BUN 25 mg/dL (7-18); CO2 25.6 mmol/L (21.0-32.0); CREATININE 1.6 mg/dL (0.70-1.30); Calcium 9.3 mg/dL (8.5-10.1); Chloride 105 mmol/L (98-107); Estimated GFR 50.26 (mL/min/1.73m2); Glucose 176 mg/dL (74-106); Potassium 4.8 mmol/L (3.5-5.1); Sodium 141 mmol/L (136-145)
[2023-01-09 14:46] LABS: Hemoglobin A1C 8.8 % (<5.7)
[2023-01-09 14:54] LABS: Vitamin D 25 Total 50.4 ng/mL (30-100)
== END 2023-01-09 13:54 | disposition home or self-care (01) ==
LOC: NCHCN 13:53
PROVIDERS: PCP Nurse Practitioner Family; Visit Provider Nurse Practitioner Family
DX: E78.5 Hyperlipidemia, unspecified (principal); E11.40 Type 2 diabetes mellitus with diabetic neuropathy, unspecified; E55.9 Vitamin D deficiency, unspecified; Z79.82 Long term (current) use of aspirin
CPT/HCPCS: 80048; 82306; 83036

== ENCOUNTER 2023-01-14 18:36 | Outpatient (REF) | payer MEDICAID, SELFPAY ==
[2023-01-14 21:03] LABS: Abs Immature Grans 0.02 10^3/uL (0.0-0.06); Absolute Basophil Count 0.03 10^3/uL (0.0-0.2); Absolute Eosinophil Count 0.21 10^3/uL (0.0-0.7); Absolute Lymphocyte Count 1.34 10^3/uL (1.2-3.4); Absolute Neutrophil Count 4.07 10^3/uL (1.2-6.7); Basophils % 0.5; Eosinophils % 3.4; HCT 40.8 % (40.0-50.0); HGB 13.8 g/dL (13.5-17.5); Immature Grans % 0.3; Lymphocytes % 21.7; MCH 28.9 pg (27.0-33.0); MCHC 33.8 % (32.0-36.0); MCV 85 fL (80-95); MPV 9.9 fL (8.0-11.0); Monocytes % 8.1; Platelet Count 198 10^3/uL (130-400); RBC 4.78 10^6/uL (4.36-5.78); RDW-SD 44.4 fL; WBC 6.17 10^3/uL (4.4-10.8)
[2023-01-14 21:11] LABS: Iron 59 ug/dL (65-175); Total Iron Binding Capacity 395 ug/dL (250-450); Transferrin Sat 15 % (20-55)
[2023-01-14 21:24] LABS: Ferritin 98 ng/mL (26-388)
[2023-01-15 07:34] LABS: Reticulocyte 1.6 % (0.5-2.4)
[2023-01-16 10:26] LABS: Haptoglobin 111 mg/dL (32-197)
== END 2023-01-14 18:37 | disposition home or self-care (01) ==
LOC: NCHCN 18:36
PROVIDERS: PCP Nurse Practitioner Family; Visit Provider Nurse Practitioner Family
DX: E55.9 Vitamin D deficiency, unspecified (principal); D50.9 Iron deficiency anemia, unspecified; E11.9 Type 2 diabetes mellitus without complications; I25.10 Atherosclerotic heart disease of native coronary artery without angina pectoris; M10.9 Gout, unspecified; N18.9 Chronic kidney disease, unspecified; M25.562 Pain in left knee
CPT/HCPCS: 82728; 83010; 83540; 83550; 85025; 85045

== ENCOUNTER 2023-04-16 10:40 | Outpatient (REF) | payer MEDICAID, SELFPAY ==
[2023-04-16 16:01] LABS: Abs Immature Grans 0.03 10^3/uL (0.0-0.06); Absolute Basophil Count 0.05 10^3/uL (0.0-0.2); Absolute Eosinophil Count 0.27 10^3/uL (0.0-0.7); Absolute Lymphocyte Count 1.67 10^3/uL (1.2-3.4); Absolute Neutrophil Count 5.68 10^3/uL (1.2-6.7); Basophils % 0.6; Eosinophils % 3.3; HCT 43.3 % (40.0-50.0); Immature Grans % 0.4; Lymphocytes % 20.1; MCH 27.8 pg (27.0-33.0); MCHC 32.3 % (32.0-36.0); MCV 86 fL (80-95); MPV 9.9 fL (8.0-11.0); Monocytes % 7.2; Neutrophils % 68.4; Platelet Count 210 10^3/uL (130-400); RBC 5.04 10^6/uL (4.36-5.78); RDW 13.7 % (11.8-14.1); RDW-SD 42.9 fL; Reticulocyte 1.1 % (0.5-2.4)
[2023-04-16 16:30] LABS: Iron 36 ug/dL (65-175); Total Iron Binding Capacity 386 ug/dL (250-450); Transferrin Sat 9 % (20-55)
[2023-04-16 16:49] LABS: Vitamin D 25 Total 58.1 ng/mL (30-100)
[2023-04-16 16:57] LABS: ALT 48 U/L (16-63); AST 37 U/L (15-37); Albumin 4.2 g/dL (3.4-5.0); Alkaline Phosphatase 92 U/L (46-116); Anion Gap 9.8 mmol/L (3-11); BUN 30 mg/dL (7-18); Bilirubin, Total 0.3 mg/dL (0.2-1.0); CO2 27.2 mmol/L (21.0-32.0); CREATININE 2.2 mg/dL (0.70-1.30); Calcium 9.2 mg/dL (8.5-10.1); Chloride 102 mmol/L (98-107); Estimated GFR 34.08 (mL/min/1.73m2); Glucose 155 mg/dL (74-106); LDH 160 U/L (85-227); Magnesium 1.6 mg/dL (1.8-2.4); Sodium 139 mmol/L (136-145); Total Protein 7.3 g/dL (6.4-8.2); Uric Acid 5.9 mg/dL (3.5-7.2)
[2023-04-16 17:26] LABS: Potassium 6.5 mmol/L (3.5-5.1)
[2023-04-16 18:07] LABS: Ferritin 79 ng/mL (26-388); Vitamin B12 808 pg/mL (193-986)
== END 2023-04-16 10:41 | disposition home or self-care (01) ==
LOC: NCHCN 10:40
PROVIDERS: PCP Nurse Practitioner Family; Visit Provider Nurse Practitioner Family
DX: E55.9 Vitamin D deficiency, unspecified (principal); N18.9 Chronic kidney disease, unspecified; E83.42 Hypomagnesemia; E61.1 Iron deficiency; E11.9 Type 2 diabetes mellitus without complications; I25.10 Atherosclerotic heart disease of native coronary artery without angina pectoris; F43.21 Adjustment disorder with depressed mood; M10.9 Gout, unspecified; D50.9 Iron deficiency anemia, unspecified; Z79.899 Other long term (current) drug therapy; I10 Essential (primary) hypertension
CPT/HCPCS: 80053; 82306; 82607; 82728; 83540; 83550; 83615; 83735; 84550; 85025; 85045

== ENCOUNTER 2023-07-15 12:39 | Outpatient (REF) | payer MEDICAID, SELFPAY ==
[2023-07-15 21:27] LABS: Anion Gap 8.5 mmol/L (3-11); BUN 34 mg/dL (7-18); CO2 24.5 mmol/L (21.0-32.0); CREATININE 1.5 mg/dL (0.70-1.30); Calcium 9.9 mg/dL (8.5-10.1); Chloride 106 mmol/L (98-107); Estimated GFR 53.96 (mL/min/1.73m2); Glucose 56 mg/dL (74-106); Potassium 5.1 mmol/L (3.5-5.1); Sodium 139 mmol/L (136-145)
== END 2023-07-15 12:40 | disposition home or self-care (01) ==
LOC: NCHCN 12:39
PROVIDERS: PCP Nurse Practitioner Family; Visit Provider Nurse Practitioner Family
DX: E11.9 Type 2 diabetes mellitus without complications (principal); I10 Essential (primary) hypertension; E78.5 Hyperlipidemia, unspecified; N18.9 Chronic kidney disease, unspecified; E55.9 Vitamin D deficiency, unspecified
CPT/HCPCS: 80048

== ENCOUNTER 2023-10-15 10:22 | Outpatient (CLI) | payer MEDICAID, SELFPAY ==
[2023-10-15 09:35] LABS: Bilirubin Negative (Negative); Blood Trace-intact (Negative); Clarity Clear (Clear); Glucose 500 mg/dL (Negative); Ketones Negative (Negative); Leukocyte Esterase Negative (Negative); Nitrite Negative (Negative); Urobilinogen 0.2 mg/dL (Up to 0.2)
[2023-10-15 09:49] LABS: Bacteria Negative HPF (Negative); C & S Indicated? No; Casts Negative LPF (Negative); Crystals Negative HPF (Negative); Epithelial Cells Rare HPF (Negative); Mucus Negative (Negative); RBC 0-2 HPF (0-2); WBC Negative HPF (0-5)
[2023-10-15 10:06] LABS: Hemoglobin A1C 9.5 % (<5.7)
[2023-10-15 10:08] LABS: Microalb ug/mg Crea 84.9 ug/mg Cr
--- OUTSIDE RECORDS SUMMARY | 2023-10-15 10:25 | XMS_ITS | Continuity of Care Document ---
Author Name Unknown Organization [facility] Address [address] [place] [address] Phone [phone] Care Team Providers Care Ply Bander Name Role Phone Testing Care Team Information Cake Tester U navailable
== END 2023-10-15 10:23 | disposition home or self-care (01) ==
LOC: LBO 10:23
PROVIDERS: PCP Nurse Practitioner Family; Visit Provider Nurse Practitioner Family
DX: I10 Essential (primary) hypertension (principal); E11.40 Type 2 diabetes mellitus with diabetic neuropathy, unspecified
CPT/HCPCS: 36415; 81003; 81015; 82043; 82570; 83036

== ENCOUNTER 2024-02-26 06:41 | Emergency (ER) | payer MEDICAID, SELFPAY ==
[2024-02-26 06:45] VITALS: BP 177/87; PULSE 74; RESP 15; TEMP 36.8
--- NOTE | 2024-02-26 07:16 | ED.GENADUL_ITS ---
Discharge Plan Disposition Patient Disposition: Home Condition: Stable Discharge Details Clinical Impression: Acute pain of right knee Primary Care Provider: Sravani Salas ED Provider: Brandie Hernandez Home Meds and New Rx's Prescriptions: No Action metoprolol succinate 25 MG tablet extended release 24 hr 50 mg PO DAILY Qty: 3 atorvastatin 20 MG tablet 40 mg PO DAILY isosorbide mononitrate 30 MG tablet extended release 24 hr 60 mg PO DAILY Qty: 180 3RF lisinopril 40 mg tablet 40 mg PO DAILY allopurinol 300 MG tablet 300 mg PO DAILY magnesium oxide 400 MG tablet 400 mg PO DAILY Qty: 30 0RF nitroglycerin [Nitrostat] 0.4 MG tablet, sublingual 0.4 mg Sublingual Q5 MIN PRN X3 PRNQty: 100 0RF gabapentin 600 mg tablet 900 mg PO QID Patient Comments: Takes 3600 mg daily over 3 doses naltrexone 50 MG tablet 4 mg PO DIRECTED Humulin R U-500 (Conc) Insulin 500 UNIT/ML solution 500 unit SQ DIRECTED glimepiride [Amaryl] 4 MG tablet 8 mg PO DAILY metformin 500 MG tablet extended release 24 hr 1,000 mg PO BID Qty: 0 0RF Rx Instructions: restart 08/14/2017 ferrous sulfate 325 mg (65 mg iron) Tablet 325 mg PO DAILY duloxetine 60 mg Capsule,Delayed Release(Dr/Ec) 60 mg PO DAILY Levemir U-100 Insulin 100 unit/mL solution 45 unit SUBCUT BID ibuprofen 600 MG tablet 600 mg PO TID Qty: 12 0RF Rx Instructions: take with food aspirin 325 MG tablet 325 mg PO DAILY Discharge Instructions Instructions: Knee pain Additional Instructions: Continue to use cane as needed to assist with walking can take 650mg of Tylenol every 6 hours as needed for pain follow up with your PCP for on going pain issues Discharge Data Discharge Date/Time-TO BE ENTERED AT DEPARTURE: 02/26/24 08:58 HPI General Date/Time Provider Initiated Documentation: 02/26/24 07:04 . Limitations to Documentation: no limitations . Information obtained by: patient . HPI Narrative: 59-year-old gentleman with CAD, diabetes, hypertension presents for evaluation of right knee pain. He reports that yesterday he was walking in his right knee buckled and he fell onto it. He reports having pain in that right knee. He states that he has been having some difficulty walking secondary to pain in the knee. He feels a little unstable and has been using a cane to help ambulate. He has not taken any medication for pain relief. Related Data Home Medications Medication Instructions Recorded Confirmed allopurinol 300 mg tablet 300 mg PO DAILY 03/11/15 02/26/24 magnesium oxide 400 mg (241.3 mg 400 mg PO DAILY #30 tabs 03/11/15 02/26/24 magnesium) tablet nitroglycerin 0.4 mg sublingual 0.4 mg sublingual Q5 MIN PRN X3 03/11/15 02/26/24 tablet (Nitrostat) PRN #100 tabs metoprolol succinate 25 mg 50 mg PO DAILY #3 tab-caps 05/21/15 02/26/24 tablet,extended release 24 hr atorvastatin 20 mg tablet 40 mg PO DAILY 06/29/15 02/26/24 glimepiride 4 mg tablet (Amaryl) 8 mg PO DAILY 08/11/17 02/26/24 insulin regular hum U-500 conc 500 500 unit SQ DIRECTED 08/11/17 02/26/24 unit/mL subcutaneous soln (Humulin R U-500 (Concentrated) Insulin) naltrexone 50 mg tablet 4 mg PO DIRECTED 08/11/17 02/26/24 metformin 500 mg tablet,extended 1,000 mg (2 x 500 mg) PO BID ##0 08/12/17 02/26/24 release 24 hr isosorbide mononitrate 30 mg 60 mg (2 x 30 mg) PO DAILY ##180 10/30/17 02/26/24 tablet,extended release 24 hr ibuprofen 600 mg tablet 600 mg PO TID #12 tabs 12/20/17 02/26/24 aspirin 325 mg tablet 325 mg PO DAILY 02/06/18 02/26/24 lisinopril 40 mg tablet 40 mg PO DAILY 01/16/19 02/26/24 duloxetine 60 mg capsule,delayed 60 mg PO DAILY 06/09/19 02/26/24 release ferrous sulfate 325 mg (65 mg 325 mg PO DAILY 06/09/19 02/26/24 iron) tablet gabapentin 600 mg tablet 900 mg PO QID 10/10/22 02/26/24 insulin detemir U-100 100 unit/mL 45 unit subcut BID 10/25/22 02/26/24 subcutaneous solution (Levemir U-100 Insulin) Previous Rx's Medication Instructions Recorded magnesium oxide 400 mg (241.3 mg 400 mg PO DAILY #30 tabs 03/11/15 magnesium) tablet nitroglycerin 0.4 mg sublingual 0.4 mg sublingual Q5 MIN PRN X3 03/11/15 tablet (Nitrostat) PRN #100 tabs metformin 500 mg tablet,extended 1,000 mg (2 x 500 mg) PO BID ##0 08/12/17 release 24 hr isosorbide mononitrate 30 mg 60 mg (2 x 30 mg) PO DAILY ##180 10/30/17 tablet,extended release 24 hr ibuprofen 600 mg tablet 600 mg PO TID #12 tabs 12/20/17 Allergies Allergy/AdvReac Type Severity Reaction Status Date / Time amoxicillin Allergy Unknown Unknown Unverified 02/26/24 06:51 General Stated Complaint: Orthopedic BRANDYN: 3 Exam Narrative Exam Narrative: Review of Systems: All systems reviewed & are unremarkable except as noted in HPI and below Well-developed, no acute distress NCAT PERRL, normal conjunctiva RRR Unlabored respiratory effort Nondistended abdomen Very small effusion in the right knee noted, several abrasions of the right lower leg appreciated, no obvious deformity or instability, tendons intact No rashes or lesions. no focal neurologic deficits Appropriate mood and affect Course Vital Signs Vital signs: Vital Signs Temperature 36.8 C 02/26/24 06:45 Pulse 74 02/26/24 06:45 Respiratory Rate 15 02/26/24 06:45 Blood Pressure 177/87 H 02/26/24 06:45 Temperature 36.8 C 02/26/24 06:45 Temperature Source Tympanic 02/26/24 06:45 Pulse 74 02/26/24 06:45 Respiratory Rate 15 02/26/24 06:45 Respiratory Effort Normal, Non-Labored 02/26/24 06:54 Blood Pressure 177/87 H 02/26/24 06:45 Pain Level 8 02/26/24 06:55 Medical Decision Making Emergent evaluation of acute traumatic right knee pain. Initial differential includes contusion, traumatic effusion, ligamentous injury. Lower suspicion for fracture and no evidence of dislocation on examination. Given history of trauma, doubt infectious etiology or gout. will give a dose of Tylenol for pain relief, will get x-ray imaging. X-ray demonstrates degenerative changes and small effusion but no acute process. Advised to continue using cane as needed for ambulation, Tylenol for pain relief. Follow-up with PCP if symptoms or not improving. Quality:SDOH Health Related Social Needs: No Data to Display PFSH All Active Problems (Updated 02/26/24 @ 08:51 by Brandie Hernandez MD) Acute pain of right knee (Acute) Prepatellar bursitis, left knee (Acute) Hypertension (Acute) Type 2 diabetes mellitus (Acute) Coronary artery disease (Acute) Angina pectoris (Acute) Medical History Depression with anxiety Gout Social History Smoking/Tobacco Use Status: Never Smoking risk assessment performed?: Yes Alcohol Intake: never Drug use: Never Substance use type: does not use Housing: house Do you feel safe at home: No Do you feel safe in your relationship?: No
[2024-02-26] MEDS: Acetaminophen 500 MG TAB 1000 MG PO (07:21)
--- NOTE | 2024-02-26 07:59 | DI.RAD_ITS ---
Exam(s) XR KNEE RT 3V AP,LAT,JARED EXAM: XR KNEE RT 3V AP,LAT,JARED CLINICAL HISTORY: right knee pain. TECHNIQUE: 2D digital imaging was performed. Three views. COMPARISON: CR XR KNEE LT 4V AP,LAT,JARED,PAT from 09/20/2022 FINDINGS: BONES: No acute fracture is present. No bony destructive lesion is seen. Patellar Enthesophyte. JOINTS: Moderate medial femoral tibial joint space narrowing. Mild periarticular spurring, mainly at the patellofemoral joint. A joint effusion is seen. SOFT TISSUE: Normal. IMPRESSION: Degenerative changes and joint effusion. DATA REPOSITORY: RADIATION DOSE DELIVERED:
== END 2024-02-26 08:58 | disposition home or self-care (01) ==
LOC: ER 09:10
PROVIDERS: Emergency Provider Emergency Medicine; PCP Nurse Practitioner Family
DX: M25.561 Pain in right knee (principal); W19.XXXA Unspecified fall, initial encounter; E11.9 Type 2 diabetes mellitus without complications; I25.10 Atherosclerotic heart disease of native coronary artery without angina pectoris; I10 Essential (primary) hypertension
CPT/HCPCS: 73562; 99283

== ENCOUNTER 2024-03-16 15:17 | Outpatient (REF) | payer MEDICAID, SELFPAY ==
[2024-03-16 15:00] LABS: Abs Immature Grans 0.04 10^3/uL (0.0-0.06); Absolute Basophil Count 0.03 10^3/uL (0.0-0.2); Absolute Eosinophil Count 0.19 10^3/uL (0.0-0.7); Absolute Monocyte Count 0.55 10^3/uL (0.1-0.8); Absolute Neutrophil Count 5.36 10^3/uL (1.2-6.7); Basophils % 0.4 %; Eosinophils % 2.5 %; HCT 38.5 % (40.0-50.0); HGB 13.2 g/dL (13.5-17.5); Immature Grans % 0.5 %; Lymphocytes % 17.4 %; MCH 28.9 pg (27.0-33.0); MCHC 34.3 % (32.0-36.0); MCV 84 fL (80-95); MPV 9.9 fL (8.0-11.0); Monocytes % 7.4 %; Neutrophils % 71.8 %; Platelet Count 203 10^3/uL (130-400); RBC 4.57 10^6/uL (4.36-5.78); RDW 14.3 % (11.8-14.1); RDW-SD 43.3 fL; WBC 7.47 10^3/uL (4.4-10.8)
[2024-03-16 15:33] LABS: ALT 47 U/L (16-63); AST 36 U/L (15-37); Albumin 3.8 g/dL (3.4-5.0); Alkaline Phosphatase 89 U/L (46-116); Anion Gap 9.6 mmol/L (3-11); BUN 16 mg/dL (7-18); Bilirubin, Total 0.49 mg/dL (0.2-1.0); CO2 24.4 mmol/L (21.0-32.0); CREATININE 1.6 mg/dL (0.70-1.30); Calcium 8.5 mg/dL (8.5-10.1); Chloride 106 mmol/L (98-107); Estimated GFR 49.63 (mL/min/1.73m2); Glucose 104 mg/dL (74-106); Magnesium 1.5 mg/dL (1.8-2.4); Potassium 5.1 mmol/L (3.5-5.1); Sodium 140 mmol/L (136-145); Total Protein 6.8 g/dL (6.4-8.2); Uric Acid 6.3 mg/dL (3.5-7.2)
[2024-03-16 16:14] LABS: Iron 39 ug/dL (65-175); Total Iron Binding Capacity 342 ug/dL (250-450); Transferrin Sat 11 % (20-55)
[2024-03-16 16:24] LABS: Ferritin 116 ng/mL (26-388); Vitamin B12 592 pg/mL (193-986); Vitamin D 25 Total 46.3 ng/mL (30-100)
== END 2024-03-16 15:18 | disposition home or self-care (01) ==
LOC: NCHCN 15:17
PROVIDERS: PCP Nurse Practitioner Family; Visit Provider Nurse Practitioner Family
DX: I25.10 Atherosclerotic heart disease of native coronary artery without angina pectoris (principal); E61.1 Iron deficiency; E55.9 Vitamin D deficiency, unspecified; H35.00 Unspecified background retinopathy; E11.9 Type 2 diabetes mellitus without complications; E78.2 Mixed hyperlipidemia; I20.9 Angina pectoris, unspecified
CPT/HCPCS: 80053; 82306; 82607; 82728; 83540; 83550; 83735; 84550; 85025

== ENCOUNTER 2024-04-02 10:34 | Inpatient (IN) | payer MEDICAID, SELFPAY ==
[2024-04-02] VITALS (42 sets, daily range): BP systolic 78–137; BP diastolic 45–76; PULSE 63–75; RESP 12–19; TEMP 36–36.5; O2SAT 94–100
--- NOTE | 2024-04-02 10:30 | RT.EKG_ITS ---
APPROVED REPORT Exam: Resting ECG Reason for Exam: Dizzy Patient Location: E HR:73 bpm ECG Measurements Heart Rate 73 AXIS ME 177 P 24 QRSd 93 QRS 0 QT 381 T 51 QTc 419 Conclusion Sinus rhythm...normal P axis, V-rate 60- 99 Low voltage, precordial leads...precordial leads <1.0mV sinus rhtyhm, normal axis, normal intervals, non ischemic
--- NOTE | 2024-04-02 10:52 | W.ED.GENAD ---
Discharge Plan Disposition Patient Disposition: Admit to [facility] Condition: Stable Discharge Details Chief Complaint: Dizzy/Sync Clinical Impression: Dehydration, Prerenal azotemia Primary Care Provider: Sravani Salas ED Provider: Davy Flood Home Meds and New Rx's Prescriptions: No Action metoprolol succinate 25 MG tablet extended release 24 hr 50 mg PO DAILY Qty: 3 atorvastatin 20 MG tablet 40 mg PO DAILY isosorbide mononitrate 30 MG tablet extended release 24 hr 60 mg PO DAILY Qty: 180 3RF aripiprazole 5 mg tablet 5 mg PO DAILY imipramine HCl 50 mg tablet 50 mg PO DAILY lisinopril 40 mg tablet 20 mg PO DAILY metformin 500 mg tablet 500 mg PO DAILY sertraline 100 mg tablet 200 mg PO DAILY trazodone 100 mg tablet 100 mg PO QHS PRN allopurinol 300 MG tablet 300 mg PO DAILY magnesium oxide 400 MG tablet 400 mg PO DAILY Qty: 30 0RF nitroglycerin [Nitrostat] 0.4 MG tablet, sublingual 0.4 mg Sublingual Q5 MIN PRN X3 PRNQty: 100 0RF gabapentin 600 mg tablet 900 mg PO QID Patient Comments: Takes 3600 mg daily over 3 doses naltrexone 50 MG tablet 4 mg PO DIRECTED Humulin R U-500 (Conc) Insulin 500 UNIT/ML solution 500 unit SQ DIRECTED glimepiride [Amaryl] 4 MG tablet 8 mg PO DAILY ferrous sulfate 325 mg (65 mg iron) Tablet 325 mg PO DAILY duloxetine 60 mg Capsule,Delayed Release(Dr/Ec) 60 mg PO DAILY Levemir U-100 Insulin 100 unit/mL solution 45 unit SUBCUT BID (DME) insulin syringe-needle U-100 [BD Veo Insulin Syringe UF] 1/2 mL 31 gauge x 15/64 syringe MISCELLANEOUS Patient Comments: USE 1 NEW SYRINGE DIRECTED FIVE TIMES DAILY ibuprofen 600 MG tablet 600 mg PO TID Qty: 12 0RF Rx Instructions: take with food aspirin 325 MG tablet 325 mg PO DAILY HPI General Date/Time Provider Initiated Documentation: 04/02/24 10:46. HPI Narrative: 59 year-old male presents to ED today by POV/ambulating with a chief complaint of dizziness, blurred vision, weakness with onset noted for the past 3-4 days, worse today. Quality described as just feels off, no radiation to chest pain, abdominal pain, nausea/vomiting, flank pain, denies and bowel/urinary changes, denies fever, denies cough. Severity is described as moderate. Palliating factors include nothing specific attempted. Provoking factors include nothing specific. Events leading up to the incident/Associated Symptoms: Patient states he feels he has been eating and drinking as normal, does work outside in hot weather. Patient not anticoagulated. Related Data Home Medications ?Medication ?Instructions ?Recorded ?Confirmed allopurinol 300 mg tablet 300 mg PO DAILY 03/11/15 04/02/24 magnesium oxide 400 mg (241.3 mg 400 mg PO DAILY #30 tabs 03/11/15 04/02/24 magnesium) tablet nitroglycerin 0.4 mg sublingual 0.4 mg sublingual Q5 MIN PRN X3 03/11/15 04/02/24 tablet (Nitrostat) PRN #100 tabs metoprolol succinate 25 mg 50 mg PO DAILY #3 tab-caps 05/21/15 04/02/24 tablet,extended release 24 hr atorvastatin 20 mg tablet 40 mg PO DAILY 06/29/15 04/02/24 glimepiride 4 mg tablet (Amaryl) 8 mg PO DAILY 08/11/17 04/02/24 insulin regular hum U-500 conc 500 500 unit SQ DIRECTED 08/11/17 04/02/24 unit/mL subcutaneous soln (Humulin R U-500 (Concentrated) Insulin) naltrexone 50 mg tablet 4 mg PO DIRECTED 08/11/17 04/02/24 isosorbide mononitrate 30 mg 60 mg (2 x 30 mg) PO DAILY ##180 10/30/17 04/02/24 tablet,extended release 24 hr ibuprofen 600 mg tablet 600 mg PO TID #12 tabs 12/20/17 04/02/24 aspirin 325 mg tablet 325 mg PO DAILY 02/06/18 04/02/24 duloxetine 60 mg capsule,delayed 60 mg PO DAILY 06/09/19 04/02/24 release ferrous sulfate 325 mg (65 mg 325 mg PO DAILY 06/09/19 04/02/24 iron) tablet gabapentin 600 mg tablet 900 mg PO QID 10/10/22 04/02/24 insulin detemir U-100 100 unit/mL 45 unit subcut BID 10/25/22 04/02/24 subcutaneous solution (Levemir U-100 Insulin) aripiprazole 5 mg tablet 5 mg PO DAILY 03/17/24 04/02/24 imipramine HCl 50 mg tablet 50 mg PO DAILY 03/17/24 04/02/24 lisinopril 40 mg tablet 20 mg PO DAILY 03/17/24 04/02/24 metformin 500 mg tablet 500 mg PO DAILY 03/17/24 04/02/24 sertraline 100 mg tablet 200 mg PO DAILY 03/17/24 04/02/24 trazodone 100 mg tablet 100 mg PO QHS PRN 03/17/24 04/02/24 insulin syringe-needle U-100 1/2 04/02/24 04/02/24 mL 31 gauge x 15/64 (BD Veo Insulin Syringe Ultra-Fine) Previous Rx's ?Medication ?Instructions ?Recorded magnesium oxide 400 mg (241.3 mg 400 mg PO DAILY #30 tabs 03/11/15 magnesium) tablet nitroglycerin 0.4 mg sublingual 0.4 mg sublingual Q5 MIN PRN X3 03/11/15 tablet (Nitrostat) PRN #100 tabs isosorbide mononitrate 30 mg 60 mg (2 x 30 mg) PO DAILY ##180 10/30/17 tablet,extended release 24 hr ibuprofen 600 mg tablet 600 mg PO TID #12 tabs 12/20/17 Allergies Allergy/AdvReac Type Severity Reaction Status Date / Time amoxicillin Allergy Unknown Unknown Unverified 04/02/24 10:40 General Stated Complaint: Dizzy/Sync BRANDYN: 2 Review of Systems All systems reviewed & are unremarkable except as noted in HPI and below Exam Narrative Exam Narrative: GENERAL APPEARANCE: Well-nourished, non-toxic, awake and alert, atraumatic, no acute distress. SKIN: Warm, pink, dry, intact, without rashes/lesions/ulcerations. HEAD: Normocephalic, atraumatic, normal hair distribution for gender/age. EYES: Normal conjunctiva, no exudates on lids/lashes. ENT: Nares patent, no circumoral cyanosis, no facial swelling NECK: Supple, trachea midline, painless cervical ROM. LUNGS/CHEST: Lungs CTA bilaterally- no rhonchi/rales/wheezes diffusely, non-labored respirations, normal A/P diameter, symmetrical expansion, no chest wall deformity HEART (CV/PV): Regular rate and rhythm without murmur, no peripheral edema, no JVD. ABDOMEN: Soft, non-distended, no guarding, no tenderness, no CVA tenderess to percussion bilaterally. MSK: Normal ROM, no swelling/deformity to bilateral UEs or LEs, moving all extremities without weakness, no cyanosis, spine midline without tenderness, normal curvature. NEURO: Mental Status AAOx4 - alert to person, place, time, events No facial droop, no forehead involvement. Motor: No focal weakness - strength 5/5 in bilateral UEs and LEs, proximal and distal, symmetric. Sensory: sensation intact to light touch globally. Gait normal: patient ambulated without ataxia into ED room. PSYCH: euthymic, cooperative, pleasant, appropriate speech Course Vital Signs Vital signs: Vital Signs Temperature 36.5 C 04/02/24 10:43 Pulse 75 04/02/24 10:43 Respiratory Rate 12 04/02/24 10:43 Blood Pressure 78/45 L 04/02/24 10:43 Pulse Oximetry 97 04/02/24 10:43 Temperature 36.5 C 04/02/24 10:43 Temperature Source Temporal Artery Scan 04/02/24 10:43 Pulse 75 04/02/24 10:43 Respiratory Rate 12 04/02/24 10:43 Respiratory Effort Normal 04/02/24 10:49 Respiratory Depth Normal 04/02/24 10:48 Respiratory Pattern Normal 04/02/24 10:48 Blood Pressure 78/45 L 04/02/24 10:43 Blood Pressure Position Sitting 04/02/24 10:43 Pulse Oximetry 97 04/02/24 10:43 Oxygen Delivery Method Room Air 04/02/24 10:43 Oxygen Flow Rate 0 04/02/24 10:43 Pain Level 4 04/02/24 10:43 Lab/Test Results Lab/Test Results: 04/02/24 10:48 Blood Blood Culture - Pending 04/02/24 10:48 Blood Blood Culture - Pending Medical Decision Making This dictation utilizes [id number] dictation software and may contain unedited grammatical errors. 59 year-old male presents to ED today by POV/ambulating with a chief complaint of dizziness, blurred vision, weakness with onset noted for the past 3-4 days, worse today. Quality described as just feels off, no radiation to chest pain, abdominal pain, nausea/vomiting, flank pain, denies and bowel/urinary changes, denies fever, denies cough. Severity is described as moderate. Palliating factors include nothing specific attempted. Provoking factors include nothing specific. Events leading up to the incident/Associated Symptoms: Patient states he feels he has been eating and drinking as normal, does work outside in hot weather. Patients' medical history: t2DM, HTN, CAD, gout. Family and social history: noncontributory. Pertinent exam findings / vital signs include benign abdomen, benign cardiopulmonary exam- soft BP on arrival, quickly normalized with fluid bolus, neuro intact, nontoxic vitals, afebrile. Differential / pathologies of concern include dehydration, sepsis, ACS, rhabdomyolysis. Diagnostic studies of: -CBC, CMP, Lactate, CK, Blood Cx's, Trop I, BNP, Magnesium, Procalcitonin, TSH, UA, EKG. -CBC shows no leukocytosis -CMP shows acute renal failure, SCr 6.5 BUN 117 - prerenal and dehydrated, K+ and Mg++ show hemoconcentration -no EKG changes of hyperkalemia -Trop/BNP negative -TSH WNL -Procalcitonin 0.2, Lactate WNL -UA shows no abnormality Interventions of: -3L IVF NS, 25mg d50 - patient created 650mL in bladder with fluid resuscitation and voluntarily voided > 550mL. -Consult for admission for dehydration, prerenal azotemia, Dr. Leahy accepts @ [id number] ED Course/Assessment/Plan: 59-year-old male reports dizziness, low blood pressures, weakness, blurred vision consistently for the past 3 to 4 days, reports normal p.o. intake, denies severe bowel or urinary changes, was found to be in acute renal failure likely due to dehydration, I did provide aggressive fluid resuscitation with normalization of potassium likely due to hemoconcentration from mild hyperkalemia without EKG changes. His creatinine improved from 6.5-5.7 on repeat, consulted Dr. Leahy for admission who accepts for OBS admit for dehydration. Findings not consistent with need for dialysis, sepsis, acs, hyperkalemia. Disposition of Dehydration, Prerenal Azotemia. Patient verbalized understanding of the plan and return to ED criteria and engaged in shared decision making. Medical Records Medical records reviewed: Yes I reviewed the patient's medical records. Lab Data Lab results reviewed: Yes I reviewed the patient's lab results. Labs: 04/02/24 11:05 Blood Blood Culture - Pending 04/02/24 11:03 Blood Blood Culture - Pending Laboratory Tests Range/Units 04/02/24 04/02/24 04/02/24 10:56 13:48 14:10 WBC (4.4-10.8) 10^3/uL 6.88 RBC (4.36-5.78) 10^6/uL 4.26 L Hgb (13.5-17.5) g/dL 12.3 L Hct (40.0-50.0) % 36.0 L MCV (80-95) fL 85 MCH (27.0-33.0) pg 28.9 MCHC (32.0-36.0) % 34.2 RDW (11.8-14.1) % 13.3 Plt Count (130-400) 10^3/uL 183 MPV (8.0-11.0) fL 9.2 Immature Gran % % 0.4 Neutrophils % % 63.3 Lymphocytes % % 26.0 Monocytes % % 6.7 Eosinophils % % 3.2 Basophils % % 0.4 Nucleated RBC % (0.0-0.3) % 0.0 Absolute Neutrophils (1.2-6.7) 10^3/uL 4.35 Absolute Lymphocytes (1.2-3.4) 10^3/uL 1.79 Absolute Monocytes (0.1-0.8) 10^3/uL 0.46 Absolute Eosinophils (0.0-0.7) 10^3/uL 0.22 Absolute Basophils (0.0-0.2) 10^3/uL 0.03 VBG Lactate (0.6-1.4) mmol/L 1.0 Sodium (136-145) mmol/L 137 Potassium (3.5-5.1) mmol/L 5.7 H Chloride (98-107) mmol/L 102 Carbon Dioxide (21.0-32.0) mmol/L 20.4 L Anion Gap (3-11) mmol/L 14.6 H BUN (7-18) mg/dL 117 H* Creatinine (0.70-1.30) mg/dL 6.5 H* Est GFR (CKD-EPI 2020) (mL/min/1.73m2) 9.23 Glucose (74-106) mg/dL 135 H Calcium (8.5-10.1) mg/dL 8.9 Magnesium (1.8-2.4) mg/dL 2.5 H Total Bilirubin (0.2-1.0) mg/dL 0.31 AST (15-37) U/L 16 ALT (16-63) U/L 28 Alkaline Phosphatase (46-116) U/L 100 Creatine Kinase (39-308) U/L 80 Troponin I (< or =60) ng/L < 50 Cancelled NT-Pro-B Natriuret Pep (<300) pg/mL 175 Total Protein (6.4-8.2) g/dL 6.9 Albumin (3.4-5.0) g/dL 3.5 Procalcitonin ng/mL 0.2 TSH (0.36-3.74) uIU/mL 0.44 Urine Color (Yellow) Yellow Urine Clarity (Clear) Clear Urine pH (5-8) 5.5 Ur Specific [place] (1.005-1.025) 1.010 Urine Protein (Neg-Trace) mg/dL Negative Urine Ketones (Negative) mg/dL Negative Urine Blood (Negative) Negative Urine Nitrite (Negative) Negative Urine Bilirubin (Negative) Negative Urine Urobilinogen (Up to 0.2) mg/dL 0.2 Ur Leukocyte Esterase (Negative) Negative Urine Glucose (Negative) mg/dL Negative Range/Units 04/02/24 14:37 WBC (4.4-10.8) 10^3/uL RBC (4.36-5.78) 10^6/uL Hgb (13.5-17.5) g/dL Hct (40.0-50.0) % MCV (80-95) fL MCH (27.0-33.0) pg MCHC (32.0-36.0) % RDW (11.8-14.1) % Plt Count (130-400) 10^3/uL MPV (8.0-11.0) fL Immature Gran % % Neutrophils % % Lymphocytes % % Monocytes % % Eosinophils % % Basophils % % Nucleated RBC % (0.0-0.3) % Absolute Neutrophils (1.2-6.7) 10^3/uL Absolute Lymphocytes (1.2-3.4) 10^3/uL Absolute Monocytes (0.1-0.8) 10^3/uL Absolute Eosinophils (0.0-0.7) 10^3/uL Absolute Basophils (0.0-0.2) 10^3/uL VBG Lactate (0.6-1.4) mmol/L Sodium (136-145) mmol/L 139 Potassium (3.5-5.1) mmol/L 4.8 Chloride (98-107) mmol/L 106 Carbon Dioxide (21.0-32.0) mmol/L 21.2 Anion Gap (3-11) mmol/L 11.8 H BUN (7-18) mg/dL 109 H* Creatinine (0.70-1.30) mg/dL 5.7 H* Est GFR (CKD-EPI 2020) (mL/min/1.73m2) 10.81 Glucose (74-106) mg/dL 50 L Calcium (8.5-10.1) mg/dL 8.5 Magnesium (1.8-2.4) mg/dL 2.4 Total Bilirubin (0.2-1.0) mg/dL AST (15-37) U/L ALT (16-63) U/L Alkaline Phosphatase (46-116) U/L Creatine Kinase (39-308) U/L Troponin I (< or =60) ng/L NT-Pro-B Natriuret Pep (<300) pg/mL Total Protein (6.4-8.2) g/dL Albumin (3.4-5.0) g/dL Procalcitonin ng/mL TSH (0.36-3.74) uIU/mL Urine Color (Yellow) Urine Clarity (Clear) Urine pH (5-8) Ur Specific [place] (1.005-1.025) Urine Protein (Neg-Trace) mg/dL Urine Ketones (Negative) mg/dL Urine Blood (Negative) Urine Nitrite (Negative) Urine Bilirubin (Negative) Urine Urobilinogen (Up to 0.2) mg/dL Ur Leukocyte Esterase (Negative) Urine Glucose (Negative) mg/dL Quality:SDOH Health Related Social Needs: No Data to Display PFSH All Active Problems (Updated 04/02/24 @ 15:36 by ANNEL Briseno) Prerenal azotemia (Acute) Dehydration (Acute) Prepatellar bursitis, left knee (Acute) Hypertension (Acute) Type 2 diabetes mellitus (Acute) Coronary artery disease (Acute) Angina pectoris (Acute) Medical History Depression with anxiety Gout Social History Smoking/Tobacco Use Status: Never Smoking risk assessment performed?: Yes Alcohol Intake: never Drug use: Never Substance use type: does not use Housing: house Do you feel safe at home: No Do you feel safe in your relationship?: No
[2024-04-02 11:03] LABS: Abs Immature Grans 0.03 10^3/uL (0.0-0.06); Absolute Basophil Count 0.03 10^3/uL (0.0-0.2); Absolute Eosinophil Count 0.22 10^3/uL (0.0-0.7); Absolute Lymphocyte Count 1.79 10^3/uL (1.2-3.4); Absolute Monocyte Count 0.46 10^3/uL (0.1-0.8); Absolute Neutrophil Count 4.35 10^3/uL (1.2-6.7); Basophils % 0.4 %; Eosinophils % 3.2 %; HGB 12.3 g/dL (13.5-17.5); Immature Grans % 0.4 %; MCH 28.9 pg (27.0-33.0); MCHC 34.2 % (32.0-36.0); MCV 85 fL (80-95); MPV 9.2 fL (8.0-11.0); Monocytes % 6.7 %; Neutrophils % 63.3 %; Platelet Count 183 10^3/uL (130-400); RBC 4.26 10^6/uL (4.36-5.78); RDW 13.3 % (11.8-14.1); RDW-SD 41.1 fL; WBC 6.88 10^3/uL (4.4-10.8)
[2024-04-02] MEDS: Normal Saline 1,000 ML 1000 ML IV ×3 (11:11→13:30)
[2024-04-02 11:50] LABS: Procalcitonin 0.2 ng/mL
[2024-04-02 11:56] LABS: ALT 28 U/L (16-63); AST 16 U/L (15-37); Albumin 3.5 g/dL (3.4-5.0); Alkaline Phosphatase 100 U/L (46-116); Anion Gap 14.6 mmol/L (3-11); Bilirubin, Total 0.31 mg/dL (0.2-1.0); CO2 20.4 mmol/L (21.0-32.0); Calcium 8.9 mg/dL (8.5-10.1); Chloride 102 mmol/L (98-107); Estimated GFR 9.23 (mL/min/1.73m2); Glucose 135 mg/dL (74-106); Magnesium 2.5 mg/dL (1.8-2.4); NT-proBNP 175 pg/mL (<300); Potassium 5.7 mmol/L (3.5-5.1); Sodium 137 mmol/L (136-145); TSH (W/Ref FT4) 0.44 uIU/mL (0.36-3.74); Total Protein 6.9 g/dL (6.4-8.2); Troponin I < 50 ng/L (< or =60)
[2024-04-02 11:57] LABS: BUN 117 mg/dL (7-18)
[2024-04-02 11:58] LABS: CREATININE 6.5 mg/dL (0.70-1.30)
[2024-04-02 12:31] LABS: Creatine Kinase 80 U/L (39-308)
[2024-04-02 14:33] LABS: Bilirubin Negative (Negative); Blood Negative (Negative); Clarity Clear (Clear); Glucose Negative (Negative); Ketones Negative (Negative); Leukocyte Esterase Negative (Negative); Nitrite Negative (Negative); Urobilinogen 0.2 mg/dL (Up to 0.2); pH 5.5 (5-8)
[2024-04-02 14:58] LABS: Anion Gap 11.8 mmol/L (3-11); CO2 21.2 mmol/L (21.0-32.0); Calcium 8.5 mg/dL (8.5-10.1); Chloride 106 mmol/L (98-107); Estimated GFR 10.81 (mL/min/1.73m2); Glucose 50 mg/dL (74-106); Magnesium 2.4 mg/dL (1.8-2.4); Potassium 4.8 mmol/L (3.5-5.1); Sodium 139 mmol/L (136-145)
[2024-04-02 15:00] LABS: BUN 109 mg/dL (7-18)
[2024-04-02 15:01] LABS: CREATININE 5.7 mg/dL (0.70-1.30)
[2024-04-02] MEDS: Dextrose 50%-Water 25 GM/50 ML SYR IVP (15:38)
--- NOTE | 2024-04-02 16:26 | W.PC.ACHO ---
Registration Status: Primary Language: Preferred Language: ED Information & Data Chief Complaint Dizzy/Sync 04/02/24 10:53 Triage Note pt with hx of HI over 10 04/02/24 10:43 years ago, on mult cardiac/ DM meds, dizzy with blurred vision intermittently to both eyes lasting for over 15 min mult times a day, BP very soft in triage, 87/50 R , 78/45 L, no recent changes to meds. Medical / Surgical History (Last Reviewed 02/26/24 @ 07:18 by Brandie Hernandez MD) Depression with anxiety Gout Most Recent Vital Signs Temperature 36 C L 04/02/24 16:04 Temperature Source Temporal Artery Scan 04/02/24 10:43 Pulse 72 04/02/24 16:04 Pulse Rhythm Regular 04/02/24 16:04 Pulse 69 04/02/24 14:02 Respiratory Rate 18 04/02/24 16:04 Respiratory Effort Normal, Non-Labored 04/02/24 16:04 Respiratory Depth Normal 04/02/24 16:04 Respiratory Pattern Normal 04/02/24 16:04 Blood Pressure 134/67 04/02/24 16:04 Blood Pressure Mean 79 04/02/24 15:32 Blood Pressure Position Sitting 04/02/24 10:43 Pulse Oximetry 98 04/02/24 16:04 Oxygen Delivery Method Room Air 04/02/24 16:04 Oxygen Flow Rate 0 04/02/24 16:04 Pain Level 0 04/02/24 16:04 Allergies amoxicillin Allergy (Unknown, Unverified 04/02/24 10:40) Unknown IV IV Catheter Type [Left Saline Lock Antecubital] IV Catheter Gauge [Left 18 Antecubital] Diet Orders Category Date Time Status Diabetes Consistent CHO/Heart Healthy [DIET] Nutrition 04/02/24 Dinner Active Diagnostics 04/02/24 04/02/24 04/02/24 Range/Units 14:37 14:10 13:48 WBC (4.4-10.8) 10^3/uL RBC (4.36-5.78) 10^6/uL Hgb (13.5-17.5) g/dL Hct (40.0-50.0) % MCV (80-95) fL MCH (27.0-33.0) pg MCHC (32.0-36.0) % RDW (11.8-14.1) % Plt Count (130-400) 10^3/uL MPV (8.0-11.0) fL Immature Gran % % Neutrophils % % Lymphocytes % % Monocytes % % Eosinophils % % Basophils % % Nucleated RBC % (0.0-0.3) % Absolute Neutrophils (1.2-6.7) 10^3/uL Absolute Lymphocytes (1.2-3.4) 10^3/uL Absolute Monocytes (0.1-0.8) 10^3/uL Absolute Eosinophils (0.0-0.7) 10^3/uL Absolute Basophils (0.0-0.2) 10^3/uL VBG Lactate (0.6-1.4) mmol/L Sodium 139 (136-145) mmol/L Potassium 4.8 (3.5-5.1) mmol/L Chloride 106 (98-107) mmol/L Carbon Dioxide 21.2 (21.0-32.0) mmol/L Anion Gap 11.8 H (3-11) mmol/L BUN 109 H* (7-18) mg/dL Creatinine 5.7 H* (0.70-1.30) mg/dL Est GFR (CKD-EPI 2020) 10.81 (mL/min/1.73m2) Glucose 50 L (74-106) mg/dL Calcium 8.5 (8.5-10.1) mg/dL Magnesium 2.4 (1.8-2.4) mg/dL Total Bilirubin (0.2-1.0) mg/dL AST (15-37) U/L ALT (16-63) U/L Alkaline Phosphatase (46-116) U/L Creatine Kinase (39-308) U/L Troponin I Cancelled (< or =60) ng/L NT-Pro-B Natriuret Pep (<300) pg/mL Total Protein (6.4-8.2) g/dL Albumin (3.4-5.0) g/dL Procalcitonin ng/mL TSH (0.36-3.74) uIU/mL Urine Color Yellow (Yellow) Urine Clarity Clear (Clear) Urine pH 5.5 (5-8) Ur Specific [place] 1.010 (1.005-1.025) Urine Protein Negative (Neg-Trace) mg/dL Urine Ketones Negative (Negative) mg/dL Urine Blood Negative (Negative) Urine Nitrite Negative (Negative) Urine Bilirubin Negative (Negative) Urine Urobilinogen 0.2 (Up to 0.2) mg/dL Ur Leukocyte Esterase Negative (Negative) Urine Glucose Negative (Negative) mg/dL 04/02/24 Range/Units 10:56 WBC 6.88 (4.4-10.8) 10^3/uL RBC 4.26 L (4.36-5.78) 10^6/uL Hgb 12.3 L (13.5-17.5) g/dL Hct 36.0 L (40.0-50.0) % MCV 85 (80-95) fL MCH 28.9 (27.0-33.0) pg MCHC 34.2 (32.0-36.0) % RDW 13.3 (11.8-14.1) % Plt Count 183 (130-400) 10^3/uL MPV 9.2 (8.0-11.0) fL Immature Gran % 0.4 % Neutrophils % 63.3 % Lymphocytes % 26.0 % Monocytes % 6.7 % Eosinophils % 3.2 % Basophils % 0.4 % Nucleated RBC % 0.0 (0.0-0.3) % Absolute Neutrophils 4.35 (1.2-6.7) 10^3/uL Absolute Lymphocytes 1.79 (1.2-3.4) 10^3/uL Absolute Monocytes 0.46 (0.1-0.8) 10^3/uL Absolute Eosinophils 0.22 (0.0-0.7) 10^3/uL Absolute Basophils 0.03 (0.0-0.2) 10^3/uL VBG Lactate 1.0 (0.6-1.4) mmol/L Sodium 137 (136-145) mmol/L Potassium 5.7 H (3.5-5.1) mmol/L Chloride 102 (98-107) mmol/L Carbon Dioxide 20.4 L (21.0-32.0) mmol/L Anion Gap 14.6 H (3-11) mmol/L BUN 117 H* (7-18) mg/dL Creatinine 6.5 H* (0.70-1.30) mg/dL Est GFR (CKD-EPI 2020) 9.23 (mL/min/1.73m2) Glucose 135 H (74-106) mg/dL Calcium 8.9 (8.5-10.1) mg/dL Magnesium 2.5 H (1.8-2.4) mg/dL Total Bilirubin 0.31 (0.2-1.0) mg/dL AST 16 (15-37) U/L ALT 28 (16-63) U/L Alkaline Phosphatase 100 (46-116) U/L Creatine Kinase 80 (39-308) U/L Troponin I < 50 (< or =60) ng/L NT-Pro-B Natriuret Pep 175 (<300) pg/mL Total Protein 6.9 (6.4-8.2) g/dL Albumin 3.5 (3.4-5.0) g/dL Procalcitonin 0.2 ng/mL TSH 0.44 (0.36-3.74) uIU/mL Urine Color (Yellow) Urine Clarity (Clear) Urine pH (5-8) Ur Specific [place] (1.005-1.025) Urine Protein (Neg-Trace) mg/dL Urine Ketones (Negative) mg/dL Urine Blood (Negative) Urine Nitrite (Negative) Urine Bilirubin (Negative) Urine Urobilinogen (Up to 0.2) mg/dL Ur Leukocyte Esterase (Negative) Urine Glucose (Negative) mg/dL 04/02/24 11:05 Blood Culture - Pending Blood 04/02/24 11:03 Blood Culture - Pending Blood [id number]-[id number] Documentation Fingerstick Glucose Start: 04/02/24 10:54 Freq: Status: Complete Protocol: Activity Type Activity Date Activity User E-sign Co-sign Detail Recorded Client Recorded Date Recorded By Document 04/02/24 15:34 BKG DAEMON(5) [id number] 04/02/24 15:35 BKG DAEMON(6) Fingerstick Glucose Start: 04/02/24 16:11 Freq: Status: Complete Protocol: Activity Type Activity Date Activity User E-sign Co-sign Detail Recorded Client Recorded Date Recorded By Document 04/02/24 16:11 BKG DAEMON(7) [id number] 04/02/24 16:11 BKG DAEMON(8) Intake and Output - 24 Hour Total 04/02/24 10:34 thru 04/02/24 16:04 Intake Total 3000 Output Total 550 Balance 2450 Weight 110.677 kg Intake: IV 3000 Output: Urine 550 Other: Urine Appearance Clear Comment Pt states he has a full bladder but is having trouble voiding in urinal # Voids 1 Falls Risk Assessment History of Falls Previous History 04/02/24 16:04 Contributing Factors Unstable 04/02/24 16:04 Ambulatory Aids Uses ambulatory device 04/02/24 16:04 Tubes/Lines W/no contributing factors 04/02/24 16:04 Gait Evaluation W/no contributing factors 04/02/24 16:04 Cognition No cognitive impairment 04/02/24 16:04 Fall Total Score 53 04/02/24 16:04 Level of Risk High Risk 04/02/24 16:04 Problems (Last Reviewed 02/26/24 @ 07:18 by Brandie Hernandez MD) Prerenal azotemia (Acute) Dehydration (Acute) v v v v v v v v v Sending and/or Receiving Nurses: Please use comment section below to note any information pertinent to the patient hand-off not included above. Information / Comments: Report taken from ER Nurse Prabha Montero, Patient is AO x4., concersant and cooperative. Has history of fall; FS rechecked was 157. No voice complaints during admission. Oriented to call lights system. Report received from:
[2024-04-02] MEDS: DEXTROSE 5%-LACTATED RINGERS 1,000 ML 150 ML IV (16:56)
--- NOTE | 2024-04-02 16:58 | HPE_ITS ---
Date of service: 04/02/24 Time of Service: 16:58 Assessment and Plan Assessment and plan (1) Prerenal azotemia: Status: Acute Assessment and plan: severe prerenal azotemia complicated by dehydration, continued use of Motrin for his right knee pain, and continued use of his lisinopril. He is not on any diuretics, he has not had any flank pain, fevers or dysuria to suggest acute obstructive uropathy and after given 3 liters of iv fluids, he produced estimated 600 mL urine in his bladder (estimate by bladder scanning) and voided 500 mL, his BUN and creatinine are coming down after given iv fluids. Will give further iv fluids overnight, encourage increased oral intake and repeat labs in the morning but will also check renal ultrasound (2) Dehydration: Status: Acute Assessment and plan: as above. unclear how he got this dehydrated. He has been working outside a lot lately and says he does not drink a lot of water, but he has not had any diarrhea or vomiting and glucose is not high and he has no glycosuria to cause an osmotic diuresis. continue to hydrate overnight and repeat labs in the morning. avoid nsaid, metformin and lisinopril. (3) Type 2 diabetes mellitus: Status: Chronic Assessment and plan: hold metformin. patient had hypoglycemia in the ED w/ glucose of 50 mg/dL which responded to iv glucose and food, he feels better now and is eating dinner. I have added D5 to his LR for now and put him on low dose i.e. insulin sensitive sliding scale. I will check glycohemoglobin A1C in the morning. Qualifiers: Diabetes mellitus complication detail: with polyneuropathy Diabetes mellitus complication status: with neurologic complications Diabetes mellitus fci insulin use: with fci use Qualified Code(s): E11.42 - Type 2 diabetes mellitus with diabetic polyneuropathy; Z79.4 - retirement (current) use of insulin (4) Hypertension: Status: Chronic Assessment and plan: continue his metoprolol and his isosorbide mononitrate but hold lisinopril in light of his azotemia Qualifiers: Hypertension type: essential hypertension Qualified Code(s): I10 - Essential (primary) hypertension (5) Coronary artery disease: Status: Acute Assessment and plan: continue isosorbide mononitrate, metoprolol, aspirin; hold atorvastatin until renal fxn improves. Qualifiers: Associated angina: without angina Coronary Disease-Associated Artery/Lesion type: [place] artery [place] vs. transplanted heart: [place] heart Qualified Code(s): I25.10 - Atherosclerotic heart disease of [place] coronary artery without angina pectoris (6) Depression with anxiety: Assessment and plan: continue trazadone and abilify History of Present Illness History of Present Illness Chief Complaint: weakness, dizziness Narrative: 59 yr old male w/ hx of DM II on insulin (23 yrs), HTN, CAD/prior [place] s/p stents x 2 (remote past), who presents to the ED w/ sx of fatigue, weakness, dizziness w/out syncope for past couple of days. Patient denies any fever or chills or rigors. Eating ok. No nausea or vomiting or diarrhea. Evaluation in the ED was notable for significant hypotension (78/45) and acute renal failure (BUN 117 , creatinine 6.5). He was rehydrated w/ 3 liter of iv fluids. Labs were noted for normal lactate 1.0, normal WBC 6880, mild anemia (Hb 12.3, Hct 36), normal LFT, troponin <50, and BNP 175. CK normal at 80. Patient denies use of any diuretics. He says that he has been working outside a lot in the heat. He is disabled but has been doing work around the home. He says that he really has not been not drinking a lot of fluids lately but has not felt thirsty. He has been using a lot of Motrin for right knee pain associated w/ a fall and contusion about a month ago. He also is on lisinopril and metformin. After hydratio w/ 3 liters of iv fluids, the ED personnel did a bladder scan and found 600 mL of urine in his bladder. the patient then voided for 500 mL. A repeat BMP was done 2 1/2 hr after his initial labs and demonstrated a decline of his BUN and creatinine to 109 and 5.7. Based on his production of urine in response to iv fluids and stabilization of his BP (SBP came up to the 120's after fluids) it was felt that he could be safely admitted at [facility] overnight observation while we continue to hydrate him and repeat his labs in the morning. No imagine was done of his renal collection system to rule out obstructive component but he has had no flank pain and no pelvic pain or dysuria or hematuria to suggest renal colic or stones. Review of Systems All systems reviewed & are unremarkable except as noted in HPI and below PFSH All Active Problems (Updated 04/02/24 @ 18:38 by Surjit Leahy MD) Prerenal azotemia (Acute) Dehydration (Acute) Prepatellar bursitis, left knee (Acute) Hypertension (Chronic) Type 2 diabetes mellitus (Chronic) Coronary artery disease (Acute) Angina pectoris (Acute) Medical History Depression with anxiety Gout Social History Smoking/Tobacco Use Status: Never Smoking risk assessment performed?: Yes Alcohol Intake: never Drug use: Never Substance use type: does not use Housing: house Do you feel safe at home: No Do you feel safe in your relationship?: No Meds Allergies and Home Medications Allergies Allergy/AdvReac Type Severity Reaction Status Date / Time amoxicillin Allergy Unknown Unknown Unverified 04/02/24 10:40 Home Medications ?Medication ?Instructions ?Recorded ?Confirmed ?Type allopurinol 300 mg tablet 300 mg PO DAILY 03/11/15 04/02/24 History magnesium oxide 400 mg (241.3 mg 400 mg PO DAILY #30 tabs 03/11/15 04/02/24 Rx magnesium) tablet nitroglycerin 0.4 mg sublingual 0.4 mg sublingual Q5 MIN PRN X3 03/11/15 04/02/24 Rx tablet (Nitrostat) PRN #100 tabs metoprolol succinate 25 mg 50 mg PO DAILY #3 tab-caps 05/21/15 04/02/24 History tablet,extended release 24 hr atorvastatin 20 mg tablet 40 mg PO DAILY 06/29/15 04/02/24 History glimepiride 4 mg tablet (Amaryl) 8 mg PO DAILY 08/11/17 04/02/24 History insulin regular hum U-500 conc 500 500 unit SQ DIRECTED 08/11/17 04/02/24 History unit/mL subcutaneous soln (Humulin R U-500 (Concentrated) Insulin) naltrexone 50 mg tablet 4 mg PO DIRECTED 08/11/17 04/02/24 History isosorbide mononitrate 30 mg 60 mg (2 x 30 mg) PO DAILY ##180 10/30/17 04/02/24 Rx tablet,extended release 24 hr ibuprofen 600 mg tablet 600 mg PO TID #12 tabs 12/20/17 04/02/24 Rx aspirin 325 mg tablet 325 mg PO DAILY 02/06/18 04/02/24 History duloxetine 60 mg capsule,delayed 60 mg PO DAILY 06/09/19 04/02/24 History release ferrous sulfate 325 mg (65 mg 325 mg PO DAILY 06/09/19 04/02/24 History iron) tablet gabapentin 600 mg tablet 900 mg PO QID 10/10/22 04/02/24 History insulin detemir U-100 100 unit/mL 45 unit subcut BID 10/25/22 04/02/24 History subcutaneous solution (Levemir U-100 Insulin) aripiprazole 5 mg tablet 5 mg PO DAILY 03/17/24 04/02/24 History imipramine HCl 50 mg tablet 50 mg PO DAILY 03/17/24 04/02/24 History lisinopril 40 mg tablet 20 mg PO DAILY 03/17/24 04/02/24 History metformin 500 mg tablet 500 mg PO DAILY 03/17/24 04/02/24 History sertraline 100 mg tablet 200 mg PO DAILY 03/17/24 04/02/24 History trazodone 100 mg tablet 100 mg PO QHS PRN 03/17/24 04/02/24 History insulin syringe-needle U-100 /04/02/24 04/02/24 History mL 31 gauge x 15/64 (BD Veo Insulin Syringe Ultra-Fine) Exam Narrative Exam Narrative: Morbidly obese white male who is sitting up in his hospital bed on med/surg floor, he is alert and oriented x 3, NAD HEENT; normal facial mimetic muscles, normal speech, mucous membranes moist (however he just ate dinner) Neck: supple, neck veins flat, normal carotid pulses Lungs: clear Heart: regular, no murmur or rub or gallop Abdomen:obese, soft, nontender, normal bowel sounds, umbilical hernia which is not incarcerated Extremitis: couple of scabs over right tibia that appear to be healing and no purulent drainage from them, pedal pulses are strong, decreased hair over dorsum of his feet, some thickened toenails but no ulcers over his toes, diminished sensation to soft touch Results Labs 04/02/24 10:56 04/02/24 14:37 Labs: Laboratory Results - last 24 hr 04/02/24 04/02/24 04/02/24 10:56 13:48 14:10 WBC 6.88 RBC 4.26 L Hgb 12.3 L Hct 36.0 L MCV 85 MCH 28.9 MCHC 34.2 RDW 13.3 Plt Count 183 MPV 9.2 Immature Gran % 0.4 Neutrophils % 63.3 Lymphocytes % 26.0 Monocytes % 6.7 Eosinophils % 3.2 Basophils % 0.4 Nucleated RBC % 0.0 Absolute Neutrophils 4.35 Absolute Lymphocytes 1.79 Absolute Monocytes 0.46 Absolute Eosinophils 0.22 Absolute Basophils 0.03 VBG Lactate 1.0 Sodium 137 Potassium 5.7 H Chloride 102 Carbon Dioxide 20.4 L Anion Gap 14.6 H BUN 117 H* Creatinine 6.5 H* Est GFR (CKD-EPI 2020) 9.23 Glucose 135 H Calcium 8.9 Magnesium 2.5 H Total Bilirubin 0.31 AST 16 ALT 28 Alkaline Phosphatase 100 Creatine Kinase 80 Troponin I < 50 Cancelled NT-Pro-B Natriuret Pep 175 Total Protein 6.9 Albumin 3.5 Procalcitonin 0.2 TSH 0.44 Urine Color Yellow Urine Clarity Clear Urine pH 5.5 Ur Specific [place] 1.010 Urine Protein Negative Urine Ketones Negative Urine Blood Negative Urine Nitrite Negative Urine Bilirubin Negative Urine Urobilinogen 0.2 Ur Leukocyte Esterase Negative Urine Glucose Negative 04/02/24 14:37 WBC RBC Hgb Hct MCV MCH MCHC RDW Plt Count MPV Immature Gran % Neutrophils % Lymphocytes % Monocytes % Eosinophils % Basophils % Nucleated RBC % Absolute Neutrophils Absolute Lymphocytes Absolute Monocytes Absolute Eosinophils Absolute Basophils VBG Lactate Sodium 139 Potassium 4.8 Chloride 106 Carbon Dioxide 21.2 Anion Gap 11.8 H BUN 109 H* Creatinine 5.7 H* Est GFR (CKD-EPI 2020) 10.81 Glucose 50 L Calcium 8.5 Magnesium 2.4 Total Bilirubin AST ALT Alkaline Phosphatase Creatine Kinase Troponin I NT-Pro-B Natriuret Pep Total Protein Albumin Procalcitonin TSH Urine Color Urine Clarity Urine pH Ur Specific [place] Urine Protein Urine Ketones Urine Blood Urine Nitrite Urine Bilirubin Urine Urobilinogen Ur Leukocyte Esterase Urine Glucose Last Vital Signs Temp 36 C L 04/02/24 16:04 Pulse 72 04/02/24 16:04 Resp 18 04/02/24 16:04 BP 134/67 04/02/24 16:04 Pulse Ox 98 04/02/24 16:04 Time Spent Time spent with Patient: 55-74 minutes Time was spent: preparing to see the patient(eg.review tests), obtaining and/or reviewing separately otained hiistory, ordering medications,tests, procedures, referring, communicating with other health healthcare or medical (Shivam Flood NP), indepentently interpreting results, counseling the patient and care coordination
[2024-04-02] MEDS: Heparin 5,000 UNITS/ML VIAL 5000 UNITS SC (19:46)
[2024-04-02] MEDS: Acetaminophen 325 MG TAB PO (19:48)
--- NOTE | 2024-04-03 | DI.US_ITS ---
Exam(s) US RENAL EXAM: US RENAL CLINICAL HISTORY: azotemia. TECHNIQUE: Burns scale, color and spectral Doppler were used. COMPARISON: CT AORTIC ANEURYSM WO Gissel MENENDEZ from 08/12/2017 FINDINGS: Right kidney: 10.2cm Echogenicity: Normal Hydronephrosis: No Cyst or mass: 5 centimeter simple cyst upper pole right kidney. Nephrolithiasis: No Left kidney: 10.6cm Echogenicity: Normal Hydronephrosis: No Cyst or mass: No Nephrolithiasis: No Bladder:Normal. Prevoid vol:1505 cc Postvoid vol:331 cc Liver noted to show fatty infiltration. IMPRESSION: Urinary bladder appears normal but shows a large postvoid residual. Right renal cyst. No evidence of hydronephrosis DATA REPOSITORY:
[2024-04-03] MEDS: Heparin 5,000 UNITS/ML VIAL 5000 UNITS SC ×3 (04:22→22:02)
[2024-04-03 07:00] LABS: Abs Immature Grans 0.02 10^3/uL (0.0-0.06); Absolute Basophil Count 0.02 10^3/uL (0.0-0.2); Absolute Eosinophil Count 0.13 10^3/uL (0.0-0.7); Absolute Lymphocyte Count 1.06 10^3/uL (1.2-3.4); Absolute Monocyte Count 0.43 10^3/uL (0.1-0.8); Absolute Neutrophil Count 4.23 10^3/uL (1.2-6.7); Basophils % 0.3 %; Eosinophils % 2.2 %; HGB 12.5 g/dL (13.5-17.5); Immature Grans % 0.3 %; MCH 28.7 pg (27.0-33.0); MCHC 34.7 % (32.0-36.0); MCV 83 fL (80-95); MPV 10.1 fL (8.0-11.0); Monocytes % 7.3 %; Neutrophils % 71.9 %; Platelet Count 184 10^3/uL (130-400); RBC 4.35 10^6/uL (4.36-5.78); RDW 13.3 % (11.8-14.1); RDW-SD 40.2 fL; WBC 5.89 10^3/uL (4.4-10.8)
[2024-04-03 07:16] LABS: Anion Gap 9.3 mmol/L (3-11); CO2 20.7 mmol/L (21.0-32.0); Calcium 8.5 mg/dL (8.5-10.1); Chloride 102 mmol/L (98-107); Estimated GFR 15.59 (mL/min/1.73m2); Glucose 263 mg/dL (74-106); Sodium 132 mmol/L (136-145)
[2024-04-03 07:26] LABS: BUN 94 mg/dL (7-18); CREATININE 4.2 mg/dL (0.70-1.30); Potassium 7.3 mmol/L (3.5-5.1)
--- NOTE | 2024-04-03 07:30 | RT.EKG_ITS ---
APPROVED REPORT Exam: Resting ECG Reason for Exam: K 7.3 Patient Location: I HR:78 bpm ECG Measurements Heart Rate 78 AXIS FL 211 P 28 QRSd 122 QRS 22 QT 388 T 18 QTc 443 Conclusion Sinus rhythm...normal P axis, V-rate 60- 99 Prolonged FL interval...FL >210, V-rate 50- 90 Nonspecific intraventricular conduction delay...QRSd >115mS, not LBBB/RBBB Borderline ST elevation, anterior leads...ST >0.15mV in V1-V4
[2024-04-03 07:35] VITALS: BP 122/83; PULSE 80; RESP 16; TEMP 36; O2SAT 97
[2024-04-03 07:38] LABS: Hemoglobin A1C 10.4 % (<5.7)
[2024-04-03] MEDS: Sertraline 100 MG TAB 200 MG PO (08:01)
[2024-04-03] MEDS: Aspirin E.C. 81 MG TABEC PO (08:01)
[2024-04-03] MEDS: Metoprolol CR 50 MG TABCR PO (08:01)
[2024-04-03] MEDS: DULoxetine 30 MG CAP 60 MG PO (08:01)
[2024-04-03] MEDS: ARIPiprazole 5 MG TAB PO (08:01)
[2024-04-03] MEDS: Isosorbide Mononitrate 30 MG TABCR 60 MG PO (08:01)
[2024-04-03] MEDS: Insulin Aspart 300 UNITS/3 ML PEN SC ×3 (08:02→18:07)
--- NOTE | 2024-04-03 08:15 | RT.EKG_ITS ---
APPROVED REPORT Exam: Resting ECG Reason for Exam: hyperkalemia Patient Location: I HR:77 bpm ECG Measurements Heart Rate 77 AXIS UT 205 P 25 QRSd 119 QRS 3 QT 379 T 20 QTc 430 Conclusion Sinus rhythm...normal P axis, V-rate 60- 99 Borderline prolonged UT interval...UT >202, V-rate 50- 90 Low voltage, extremity leads...all extremity leads <0.5mV
--- NOTE | 2024-04-03 08:46 | W.PM.PROGNOT ---
Date of Service Date of service: 04/03/24 Time of Service: 08:46 Assessment and Plan Assessment and plan (1) Prerenal azotemia: Status: Acute Assessment and plan: Severe azotemia which appears to be responding to fluids. Unfortunately he developed hyperkalemia overnight only source of potassium could have been from the LR that he was given last night. He only received 1 L of LR nevertheless his potassium jules from 4.8-7.3 this morning and when rechecked was found to be 7.9. We are currently correcting this with giving him IV insulin along with IV dextrose and IV calcium gluconate and starting him on Lokelma. We will continue hydration with normal saline monitoring his urine output and doing serial monitoring of his labs. Renal ultrasound did not show any hydronephrosis he does have a 5 cm simple cyst of the upper pole the right kidney no nephrolithiasis kidney size appears to be normal however he does have a large postvoid bladder residual. We will have nursing monitor his postvoid residuals and straight cath for residuals of 300 mL or more. I will request a urology consult and start the patient on Flomax and check a PSA. If he has to be straight cath 2 or more times a 24-hour. And he should have the indwelling Contreras catheter placed until we can get to the source of his obstructive uropathy. (2) Hyperkalemia: Status: Acute Assessment and plan: As above. Check repeat labs this afternoon after initiation of Lokelma (3) Dehydration: Status: Acute Assessment and plan: as above. unclear how he got this dehydrated. He has been working outside a lot lately and says he does not drink a lot of water, but he has not had any diarrhea or vomiting and glucose is not high and he has no glycosuria to cause an osmotic diuresis. continue to hydrate overnight and repeat labs in the morning. avoid nsaid, metformin and lisinopril. (4) Type 2 diabetes mellitus: Status: Chronic Assessment and plan: hold metformin. patient had hypoglycemia in the ED w/ glucose of 50 mg/dL which responded to iv glucose and food, he feels better now and is eating dinner. I have added D5 to his LR for now and put him on low dose i.e. insulin sensitive sliding scale. I will check glycohemoglobin A1C in the morning. 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: with petroleum terminal plant operator use Diabetes mellitus complication status: with neurologic complications Diabetes mellitus complication detail: with polyneuropathy Qualified Code(s): E11.42 - Type 2 diabetes mellitus with diabetic polyneuropathy; Z79.4 - skilled nursing (current) use of insulin (5) Hypertension: Status: Chronic Assessment and plan: continue his metoprolol and his isosorbide mononitrate but hold lisinopril in light of his azotemia Qualifiers: Hypertension type: essential hypertension Qualified Code(s): I10 - Essential (primary) hypertension (6) Coronary artery disease: Status: Acute Assessment and plan: continue isosorbide mononitrate, metoprolol, aspirin; hold atorvastatin until renal fxn improves. Qualifiers: Coronary Disease-Associated Artery/Lesion type: [place] artery [place] vs. transplanted heart: [place] heart Associated angina: without angina Qualified Code(s): I25.10 - Atherosclerotic heart disease of [place] coronary artery without angina pectoris (7) Depression with anxiety: Assessment and plan: continue trazadone and abilify Subjective Subjective Interval history since last seen: Mr. Pedraza feels fine. He denies any pain or palpitations or dyspnea. Although his renal function is recovering, it is not at a point where I can discharge him and in fact his K was high this morning at 7.3. I was hoping this was d/t hemolysis and ordered repeat level stat. In the interim I ordered D50 25 gm iv bolus and Humulin R 10 units IVP along w/ calcium gluconate. Since the early morining labs the repeat K came back 7.9 but the nursing had not completed all of my orders yet when the repeat level had been drawn, so I do not think that the repeat level represents a failure of response to treatment but I have also ordered Lokelma and his EKG was done and did not exhibit peaked T waves nor any prolonged QTC. Exam Narrative Exam Narrative: Obese male in no acute distress alert and oriented x 3 sitting up in bed awaiting his breakfast. Lungs are clear to auscultation Heart is regular rate and rhythm with distant heart tones Abdomen is obese soft and nontender no guarding Extremities without peripheral edema Objective Last Vital Signs Temp 36.0 C L 04/03/24 07:35 Pulse 80 04/03/24 07:35 Resp 16 04/03/24 07:35 BP 122/83 04/03/24 07:35 Pulse Ox 97 04/03/24 07:35 Laboratory Results - last 24 hr 04/02/24 04/02/24 04/02/24 10:56 13:48 14:10 WBC 6.88 RBC 4.26 L Hgb 12.3 L Hct 36.0 L MCV 85 MCH 28.9 MCHC 34.2 RDW 13.3 Plt Count 183 MPV 9.2 Immature Gran % 0.4 Neutrophils % 63.3 Lymphocytes % 26.0 Monocytes % 6.7 Eosinophils % 3.2 Basophils % 0.4 Nucleated RBC % 0.0 Absolute Neutrophils 4.35 Absolute Lymphocytes 1.79 Absolute Monocytes 0.46 Absolute Eosinophils 0.22 Absolute Basophils 0.03 VBG Lactate 1.0 Sodium 137 Potassium 5.7 H Chloride 102 Carbon Dioxide 20.4 L Anion Gap 14.6 H BUN 117 H* Creatinine 6.5 H* Est GFR (CKD-EPI 2020) 9.23 Glucose 135 H Hemoglobin A1c Calcium 8.9 Magnesium 2.5 H Total Bilirubin 0.31 AST 16 ALT 28 Alkaline Phosphatase 100 Creatine Kinase 80 Troponin I < 50 Cancelled NT-Pro-B Natriuret Pep 175 Total Protein 6.9 Albumin 3.5 Procalcitonin 0.2 TSH 0.44 Urine Color Yellow Urine Clarity Clear Urine pH 5.5 Ur Specific [place] 1.010 Urine Protein Negative Urine Ketones Negative Urine Blood Negative Urine Nitrite Negative Urine Bilirubin Negative Urine Urobilinogen 0.2 Ur Leukocyte Esterase Negative Urine Glucose Negative 04/02/24 04/03/24 14:37 06:00 WBC 5.89 RBC 4.35 L Hgb 12.5 L Hct 36.0 L MCV 83 MCH 28.7 MCHC 34.7 RDW 13.3 Plt Count 184 MPV 10.1 Immature Gran % 0.3 Neutrophils % 71.9 Lymphocytes % 18.0 Monocytes % 7.3 Eosinophils % 2.2 Basophils % 0.3 Nucleated RBC % 0.0 Absolute Neutrophils 4.23 Absolute Lymphocytes 1.06 L Absolute Monocytes 0.43 Absolute Eosinophils 0.13 Absolute Basophils 0.02 VBG Lactate Sodium 139 132 L Potassium 4.8 7.3 H* D Chloride 106 102 Carbon Dioxide 21.2 20.7 L Anion Gap 11.8 H 9.3 BUN 109 H* 94 H* Creatinine 5.7 H* 4.2 H* Est GFR (CKD-EPI 2020) 10.81 15.59 Glucose 50 L 263 H Hemoglobin A1c 10.4 H Calcium 8.5 8.5 Magnesium 2.4 Total Bilirubin AST ALT Alkaline Phosphatase Creatine Kinase Troponin I NT-Pro-B Natriuret Pep Total Protein Albumin Procalcitonin TSH Urine Color Urine Clarity Urine pH Ur Specific [place] Urine Protein Urine Ketones Urine Blood Urine Nitrite Urine Bilirubin Urine Urobilinogen Ur Leukocyte Esterase Urine Glucose Time Spent with Patient Time Spent with Patient: 35-49 minutes Time was spent: preparing to see the patient(eg.review tests), ordering medications,tests, procedures, referring, communicating with other health health care facility administrator, indepentently interpreting results, counseling the patient and care coordination
[2024-04-03] MEDS: CALCIUM GLUCONATE in NaCl 1 GM/50 ML BAG IVPB ×2 (09:19→13:23)
[2024-04-03] MEDS: Dextrose 50%-Water 25 GM/50 ML SYR IVP (09:20)
[2024-04-03] MEDS: Normal Saline Flush 10 ML SYR IVP ×5 (09:20→22:03)
[2024-04-03] MEDS: Normal Saline 1,000 ML 100 ML IV (09:20)
[2024-04-03] MEDS: Insulin REGULAR-Human 100 UNITS/ML UNIT 10 UNITS IV ×2 (09:27→13:39)
[2024-04-03 10:09] LABS: Potassium 7.9 mmol/L (3.5-5.1)
--- NOTE | 2024-04-03 12:43 | PHA.REVIEW2 ---
Pharmacy Admission Review Admission Clinical Review Admission Pharmacy Review: Hyperkalemia (Acute) Prerenal azotemia (Acute) Dehydration (Acute) Coronary artery disease (Acute) amoxicillin Allergy (Unknown, Unverified 04/02/24 10:40) Unknown Resuscitation Status Full Code Height 5 ft 5 in Weight 111 kg Pharmacy Admission Review Renal Dosing Renal Dosing: BUN 94 mg/dL (7-18) H* 04/03/24 06:00 Creatinine 4.2 mg/dL (0.70-1.30) H* 04/03/24 06:00 Medications needing adjustments: Reviewed (CrCl 22 mL/min, SCr decreased from 5.7 and BUN decreased from 109) List of meds needing interventions: Current medications are okay Anticoagulation Anticoagulation: Hgb 12.5 g/dL (13.5-17.5) L 04/03/24 06:00 Hct 36.0 % (40.0-50.0) L 04/03/24 06:00 Plt Count 184 10^3/uL (130-400) 04/03/24 06:00 Creatinine 4.2 mg/dL (0.70-1.30) H* 04/03/24 06:00 DVT Prophylaxis: Reviewed Medications: Heparin (q8h) Relevant Labs Relevant Labs: Sodium 132 mmol/L (136-145) L 04/03/24 06:00 Potassium 7.9 mmol/L (3.5-5.1) H* 04/03/24 09:38 Chloride 102 mmol/L (98-107) 04/03/24 06:00 Magnesium 2.4 mg/dL (1.8-2.4) 04/02/24 14:37 Electrolytes, C-Reactive P, ESR: Reviewed (K 7.9 - IVP insulin regular and Lokelma TID ordered with repeat lab pending, Na 132 - repeat lab pending) DM Control DM Control: Glucose 263 mg/dL (74-106) H 04/03/24 06:00 Hemoglobin A1c 10.4 % (<5.7) H 04/03/24 06:00 Finger Stick Blood Glucose 366 1033 Finger Stick Blood Glucose 366 1033 Finger Stick Blood Glucose 322 0802 Finger Stick Blood Glucose 322 0738 Finger Stick Blood Glucose 322 0738 DM Control: Reviewed Insulin Dosing, Diabetic Medication: Has order for SS insulin Cardiac Review Cardiac Review: Troponin I Cancelled 04/02/24 13:48 NT-Pro-B Natriuret Pep 175 pg/mL (<300) 04/02/24 10:56 BP, HR, EF%: Reviewed (BP and HR WNL) QTc Review QTc: Reviewed (419 from 04/02/24 - repeat EKG report pending) IV to PO Switch IV Medications: Reviewed Home Meds Home Med List reviewed: Intervened Relevent Home Meds Not ordered & why?: allopurinol, atorvastatin (on hold per H+P - JORY), ferrous sulfate, gabapentin, glimepiride, ibuprofen (on hold per H+P), Levemir (on hold per H+P), Humulin-R (on hold per H+P), lisinopril (on hold per H+P), magnesium and metformin (on hold per H+P) Once patients JORY has resolved, will reach out about putting in orders for home medications. Called patients outpatient pharmacy for med rec. They faxed over his current med list (bubble packed), and I updated the home med list as needed using this list. Current Meds Current Medication Order Review: Intervened Comments: Added IV admission order set
[2024-04-03] MEDS: Finasteride 5 MG TAB PO (13:00)
[2024-04-03] MEDS: Sodium Zirconium Cyclosilicate 10 GM PKT PO ×3 (13:00→22:02)
[2024-04-03] MEDS: Tamsulosin 0.4 MG CAPCR PO (13:00)
[2024-04-03 13:05] LABS: Calcium 8.9 mg/dL (8.5-10.1); Chloride 102 mmol/L (98-107); Estimated GFR 17.58 (mL/min/1.73m2); Glucose 426 mg/dL (74-106); Sodium 130 mmol/L (136-145)
[2024-04-03 13:08] LABS: BUN 95 mg/dL (7-18); CREATININE 3.8 mg/dL (0.70-1.30)
[2024-04-03 13:09] LABS: Potassium 7.8 mmol/L (3.5-5.1)
[2024-04-03 13:15] LABS: Lab Add On Test DONE
[2024-04-03] MEDS: Furosemide 40 MG/4 ML VIAL IVP (13:38)
--- NOTE | 2024-04-03 14:29 | PDOC.CMIN ---
Date of service: 04/03/24 Time of Service: 14:29 Care Management Initial Assmt Initial Assessment Reason for Hospitalization: Prerenal azotemia, Hyperkalemia, dehydration Functional Status/Living Situation Patient Presentation: Isiah was sitting in a chair when CM met with him. He easily engages in conversation and shares that he lives with his parents in [place]. He typically uses [facility] in [place], but would prefer to have RX's sent to [facility] in [place] if any are needed on discharge. CM updated pharmacy. Town of Residence: [place] Resides with: Parent (Mom and Dad) Significant Other/Family: Local Natural Supports: Parents and girlfriend Employment Status: Disabled Instrumental Activities of Daily Living (ADLs): Independent Medications Medication Management: No Issues/Barriers identified Physical Functioning/Mobility Assistive Device: Recent fall, has been using a cane PRN. Has an appointment with Ortho on 04/20/24 Advance Directives Advance Directives: Do you have an Advance Directive: N 08/10/13 21:48 AD On File at [facility]: N 08/10/13 21:48 Date Asked 04/02/24 04/02/24 15:54 AD Date Reviewed COLST On File at [facility] No 01/14/23 18:38 COLST Date Scanned Code Status Resuscitation Status Full Code Portal Pt does not currently have a portal and education provided: Yes Insurance Coverage/Financial Issues [place] Medicaid Financial Issues: None, per patient Care Team Visit Care Team Role Provider Type Sravani Salas Primary Care Provider ADV PRACTICE REGISTERED NURSE Sulaiman Burt MD Other Providers [facility] STAFF PHYSICIAN ANNEL Briseno Emergency Provider PHYSICIANS CORRESPONDENCE REVIEW CLERK Surjit Leahy MD Admit Provider [facility] STAFF PHYSICIAN Attending Provider Discharge Potential Discharge Needs: PCP F/U Appt Anticipated Barriers to Discharge: None Identified Patient/Family Education Needs: Review discharge instructions, discuss Ask Me Three Transportation: Private vehicle Plan: Isiah is being treated and closely monitored on telemetry due to Hyperkalemia. Anticipate, Isiah will discharge home when medically ready. His car is in the parking lot and he is planning on driving himself home, if able. Isiah will follow up with community providers [facility] instructed. No new services are anticipated at this time. CM will follow. PFSH All Active Problems (Updated 04/03/24 @ 12:06 by Surjit Leahy MD) Hyperkalemia (Acute) Prerenal azotemia (Acute) Dehydration (Acute) Prepatellar bursitis, left knee (Acute) Hypertension (Chronic) Type 2 diabetes mellitus (Chronic) Coronary artery disease (Acute) Angina pectoris (Acute) Medical History Depression with anxiety Gout Social History Smoking/Tobacco Use Status: Never Smoking risk assessment performed?: Yes Alcohol Intake: never Drug use: Never Substance use type: does not use Housing: house Do you feel safe at home: No Do you feel safe in your relationship?: No SDOH(Care Management) Screening Will the Patient Participate in the Screening?: Yes Do you worry about having a steady place to live?: no Problems where you live: no known problems In the past 12 months, have you had to go without electric, gas, oil or water in your home?: no Have you or anyone in your house had to go without enough food to eat?: no Has lack of transportation kept you from medical appointments or from doing things needed for daily living?: no Has anyone in your support network made you feel unsafe for any reason?: no
[2024-04-03 15:03] VITALS: BP 123/74; PULSE 84; RESP 16; TEMP 36.2; O2SAT 96
--- NOTE | 2024-04-03 16:02 | W.UROLOGYCON ---
Date of service: 04/03/24 Time of Service: 16:02 Assessment and Plan Assessment and plan (1) Elevated serum creatinine: Status: Acute Assessment and plan: I do not see hydronephrosis and he has no signs of urinary tract infection, so I do not think that urethral catheterization is mandatory. He may be helpful for I&O measurement in this gentleman. His inability to empty the bladder certainly could be one of the contributing factors to his abnormal blood work, but would not be considered the only cause. As long as his renal function continues to improve, I do not believe I would change anything right now. We should see him after discharge to try to better ascertain his baseline voiding symptoms so that we can monitor him in the future. History of Present Illness History of Present Illness Chief Complaint: Elevated postvoid residual urine volume Narrative: This is a 59-year-old gentleman who is currently hospitalized with an elevated serum creatinine and an elevated potassium level. I have been asked to see him as he was found to have an elevated postvoid residual urine on bladder scan. The patient tells me he has no prior issues with urinary retention. He tells me in fact his voiding symptoms are minimal. His AUA symptom score is 7 out of a possible 35. He has no prior history of kidney stones or urinary tract infections. He has never had urethral instrumentation as far as he can recall. He has been voiding on his own since his admission and has not had a catheter placed. Since his admission, his renal function has been improving with hydration. Review of Systems Narrative: No fevers or chills No vision change or dysphasia Diabetes. No thyroid dysfunction No shortness of breath, cough or hemoptysis No nausea, vomiting, hepatitis, ulcers, jaundice No seizures, strokes or peripheral neuropathy No bleeding disorders or anemia No gout PFSH All Active Problems (Updated 04/10/24 @ 12:39 by Sulaiman Burt MD) Elevated serum creatinine (Acute) Prepatellar bursitis, left knee (Acute) Hypertension (Chronic) Type 2 diabetes mellitus (Chronic) Coronary artery disease (Acute) Angina pectoris (Acute) Medical History Depression with anxiety Gout Social History Smoking/Tobacco Use Status: Never Smoking risk assessment performed?: Yes Alcohol Intake: never Drug use: Never Substance use type: does not use Housing: house Do you feel safe at home: No Do you feel safe in your relationship?: No Exam Narrative Exam Narrative: He does not appear septic or toxic His vital signs are documented elsewhere There is no CVA tenderness His abdomen is soft. I do not feel a distended bladder. There are no peritoneal signs The urethral meatus is patent with no erythema or discharge He is awake and alert I reviewed his renal ultrasound on the PACS system. There is no sign of hydronephrosis on either side. His initial urinalysis shows no sign of infection Results Last Vital Signs Temp 36.2 C L 04/03/24 15:03 Pulse 84 04/03/24 15:03 Resp 16 04/03/24 15:03 BP 123/74 04/03/24 15:03 Pulse Ox 96 04/03/24 15:03 Labs 04/06/24 06:25 04/06/24 06:25 Labs: Laboratory Results - last 24 hr 04/03/24 04/03/24 04/03/24 06:00 09:38 12:10 WBC 5.89 RBC 4.35 L Hgb 12.5 L Hct 36.0 L MCV 83 MCH 28.7 MCHC 34.7 RDW 13.3 Plt Count 184 MPV 10.1 Immature Gran % 0.3 Neutrophils % 71.9 Lymphocytes % 18.0 Monocytes % 7.3 Eosinophils % 2.2 Basophils % 0.3 Nucleated RBC % 0.0 Absolute Neutrophils 4.23 Absolute Lymphocytes 1.06 L Absolute Monocytes 0.43 Absolute Eosinophils 0.13 Absolute Basophils 0.02 Sodium 132 L 130 L Potassium 7.3 H* D 7.9 H* 7.8 H* Chloride 102 102 Carbon Dioxide 20.7 L 21.0 Anion Gap 9.3 7.0 BUN 94 H* 95 H* Creatinine 4.2 H* 3.8 H* Est GFR (CKD-EPI 2020) 15.59 17.58 Glucose 263 H 426 H Hemoglobin A1c 10.4 H Calcium 8.5 8.9 Add-On Test Request 04/03/24 13:15 WBC RBC Hgb Hct MCV MCH MCHC RDW Plt Count MPV Immature Gran % Neutrophils % Lymphocytes % Monocytes % Eosinophils % Basophils % Nucleated RBC % Absolute Neutrophils Absolute Lymphocytes Absolute Monocytes Absolute Eosinophils Absolute Basophils Sodium Potassium Chloride Carbon Dioxide Anion Gap BUN Creatinine Est GFR (CKD-EPI 2020) Glucose Hemoglobin A1c Calcium Add-On Test Request DONE
[2024-04-03 16:33] LABS: Anion Gap 8.2 mmol/L (3-11); CO2 22.8 mmol/L (21.0-32.0); Calcium 9.1 mg/dL (8.5-10.1); Chloride 102 mmol/L (98-107); Estimated GFR 18.76 (mL/min/1.73m2); Glucose 314 mg/dL (74-106); Sodium 133 mmol/L (136-145)
[2024-04-03 16:35] LABS: BUN 91 mg/dL (7-18); CREATININE 3.6 mg/dL (0.70-1.30); Potassium 6.9 mmol/L (3.5-5.1)
[2024-04-03 20:36] LABS: Anion Gap 8.6 mmol/L (3-11); CO2 23.4 mmol/L (21.0-32.0); CREATININE 3.5 mg/dL (0.70-1.30); Calcium 8.8 mg/dL (8.5-10.1); Chloride 101 mmol/L (98-107); Glucose 361 mg/dL (74-106); Sodium 133 mmol/L (136-145)
[2024-04-03 20:38] LABS: BUN 86 mg/dL (7-18); Potassium 6.1 mmol/L (3.5-5.1)
[2024-04-03 21:58] VITALS: BP 144/80; PULSE 78; RESP 16; TEMP 36.3; O2SAT 97
[2024-04-03] MEDS: traZODone 100 MG TAB PO (22:02)
[2024-04-03] MEDS: Acetaminophen 325 MG TAB PO (22:02)
[2024-04-03 22:38] LABS: PSA, Screening 0.4 ng/mL (<=3.5)
[2024-04-04 02:26] VITALS: BP 126/76; PULSE 76; RESP 12; TEMP 36.6; O2SAT 96
[2024-04-04] MEDS: Heparin 5,000 UNITS/ML VIAL 5000 UNITS SC ×2 (04:45→20:58)
[2024-04-04] MEDS: Sodium Zirconium Cyclosilicate 10 GM PKT PO ×3 (05:54→22:03)
[2024-04-04 07:10] LABS: Anion Gap 8.4 mmol/L (3-11); BUN 77 mg/dL (7-18); CO2 22.6 mmol/L (21.0-32.0); CREATININE 3.1 mg/dL (0.70-1.30); Calcium 8.8 mg/dL (8.5-10.1); Chloride 104 mmol/L (98-107); Estimated GFR 22.44 (mL/min/1.73m2); Glucose 303 mg/dL (74-106); Potassium 5.8 mmol/L (3.5-5.1); Sodium 135 mmol/L (136-145)
[2024-04-04] MEDS: Furosemide 20 MG/2 ML VIAL IVP (08:03)
[2024-04-04] MEDS: DULoxetine 30 MG CAP 60 MG PO (08:04)
[2024-04-04] MEDS: Tamsulosin 0.4 MG CAPCR PO (08:04)
[2024-04-04] MEDS: Finasteride 5 MG TAB PO (08:04)
[2024-04-04] MEDS: Normal Saline Flush 10 ML SYR IVP ×2 (08:04→17:29)
[2024-04-04] MEDS: Metoprolol CR 50 MG TABCR PO (08:05)
[2024-04-04] MEDS: Isosorbide Mononitrate 30 MG TABCR 60 MG PO (08:05)
[2024-04-04] MEDS: Sertraline 100 MG TAB 200 MG PO (08:05)
[2024-04-04] MEDS: Aspirin E.C. 81 MG TABEC PO (08:05)
[2024-04-04 08:12] VITALS: BP 144/84; PULSE 72; RESP 16; TEMP 36.6; O2SAT 98
[2024-04-04] MEDS: Insulin Aspart 300 UNITS/3 ML PEN SC ×6 (09:02→17:30)
[2024-04-04] MEDS: ARIPiprazole 5 MG TAB PO (09:32)
--- NOTE | 2024-04-04 12:57 | PGE_ITS ---
Date of Service Date of service: 04/04/24 Time of Service: 12:57 Assessment and Plan Assessment and plan (1) Prerenal azotemia: Status: Acute Assessment and plan: Initially presented with severe prerenal azotemia which is responded to IV fluid hydration. Renal ultrasound showed normal size kidneys no hydronephrosis and no stones but does have evidence of a large postvoid residual. Patient has been started on Flomax and Proscar. Urology consult pending. Yesterday patient developed severe hyperkalemia despite not receiving any potassium supplement other than what was in the LR he was receiving. Potassium went from 4.8-7.3 and then is 7.9 but has since responded to Lokelma is down to 5.8 this morning. Patient received 1 more dose of Lasix and continued normal saline today. BUN is down to 77 from a high of 109 and creatinine is down to 2.9 from a high of 5.7. Will keep him off his lisinopril which was not reordered during this hospitalization. Patient should also avoid use of NSAIDs apparently he was using ibuprofen. (2) Hyperkalemia: Status: Acute Assessment and plan: Improving after IV diuretics, IV calcium gluconate, IV insulin and oral Lokelma. (3) Dehydration: Status: Resolved Assessment and plan: as above. unclear how he got this dehydrated. He has been working outside a lot lately and says he does not drink a lot of water, but he has not had any diarrhea or vomiting and glucose is not high and he has no glycosuria to cause an osmotic diuresis. continue to hydrate overnight and repeat labs in the morning. avoid nsaid, metformin and lisinopril. 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 Qualifiers: Coronary Disease-Associated Artery/Lesion type: [place] artery [place] vs. transplanted heart: [place] heart Associated angina: without angina Qualified Code(s): I25.10 - Atherosclerotic heart disease of [place] coronary artery without angina pectoris (7) Depression with anxiety: Assessment and plan: continue trazadone and abilify Subjective Subjective Interval history since last seen: Isiah sitting up in his chair he is alert and orient x 3 denies any discomfort no chest pain or pressure or palpitations and denies any dyspnea. I told him that his BUN/creatinine are continue to improve his potassium continues to decline. Exam Narrative Exam Narrative: Isiah is sitting up in a chair watching TV alert and orient x 3 no acute distress able to talk in complete paragraphs without dyspnea. Lungs are clear to auscultation Heart regular rate and rhythm Abdomen is obese soft and nontender Lower extremities no pitting edema Objective Last Vital Signs Temp 36.6 C 04/04/24 08:12 Pulse 72 04/04/24 08:12 Resp 16 04/04/24 08:12 BP 144/84 H 04/04/24 08:12 Pulse Ox 98 04/04/24 08:12 Laboratory Results - last 24 hr 04/03/24 04/03/24 04/03/24 12:10 13:15 16:10 Sodium 130 L 133 L Potassium 7.8 H* 6.9 H* Chloride 102 102 Carbon Dioxide 21.0 22.8 Anion Gap 7.0 8.2 BUN 95 H* 91 H* Creatinine 3.8 H* 3.6 H* Est GFR (CKD-EPI 2020) 17.58 18.76 Glucose 426 H 314 H Calcium 8.9 9.1 Add-On Test Request DONE 04/03/24 04/04/24 20:05 05:28 Sodium 133 L 135 L Potassium 6.1 H* 5.8 H Chloride 101 104 Carbon Dioxide 23.4 22.6 Anion Gap 8.6 8.4 BUN 86 H* 77 H Creatinine 3.5 H 3.1 H Est GFR (CKD-EPI 2020) 19.40 22.44 Glucose 361 H 303 H Calcium 8.8 8.8 Add-On Test Request Time Spent with Patient Time Spent with Patient: 35-49 minutes Time was spent: preparing to see the patient(eg.review tests), ordering medications,tests, procedures, referring, communicating with other health career education teacher, indepentently interpreting results, counseling the patient and care coordination
[2024-04-04 14:12] LABS: Anion Gap 8.6 mmol/L (3-11); BUN 72 mg/dL (7-18); CO2 24.4 mmol/L (21.0-32.0); CREATININE 2.9 mg/dL (0.70-1.30); Chloride 102 mmol/L (98-107); Estimated GFR 24.31 (mL/min/1.73m2); Glucose 402 mg/dL (74-106); Potassium 5.5 mmol/L (3.5-5.1); Sodium 135 mmol/L (136-145)
[2024-04-04 15:50] VITALS: BP 116/72; PULSE 77; RESP 17; TEMP 36.1; O2SAT 97
[2024-04-04] MEDS: Normal Saline 1,000 ML 75 ML IV (17:30)
[2024-04-04 19:37] VITALS: BP 137/84; PULSE 76; RESP 18; TEMP 36.3; O2SAT 97
[2024-04-04 20:07] LABS: HCT 35.4 % (40.0-50.0); HGB 12.2 g/dL (13.5-17.5); MCH 28.8 pg (27.0-33.0); MCHC 34.5 % (32.0-36.0); MCV 84 fL (80-95); MPV 9.4 fL (8.0-11.0); Platelet Count 165 10^3/uL (130-400); RBC 4.23 10^6/uL (4.36-5.78); RDW 13.3 % (11.8-14.1); RDW-SD 40.6 fL; WBC 4.67 10^3/uL (4.4-10.8)
[2024-04-04] MEDS: traZODone 100 MG TAB PO (20:58)
[2024-04-04 23:27] VITALS: BP 113/70; PULSE 84; RESP 18; TEMP 36.4; O2SAT 97
[2024-04-05 03:19] VITALS: BP 110/56; PULSE 76; RESP 20; TEMP 36.4; O2SAT 97
[2024-04-05] MEDS: Heparin 5,000 UNITS/ML VIAL 5000 UNITS SC ×2 (05:10→19:59)
[2024-04-05] MEDS: Normal Saline 1,000 ML 75 ML IV (06:35)
[2024-04-05 06:57] VITALS: BP 145/85; PULSE 86; RESP 17; TEMP 36.4; O2SAT 97
[2024-04-05 07:03] LABS: Anion Gap 10.8 mmol/L (3-11); BUN 57 mg/dL (7-18); CO2 22.2 mmol/L (21.0-32.0); CREATININE 2.3 mg/dL (0.70-1.30); Calcium 8.8 mg/dL (8.5-10.1); Chloride 106 mmol/L (98-107); Estimated GFR 32.11 (mL/min/1.73m2); Glucose 224 mg/dL (74-106); Potassium 4.9 mmol/L (3.5-5.1); Sodium 139 mmol/L (136-145)
[2024-04-05] MEDS: Sertraline 100 MG TAB 200 MG PO (09:58)
[2024-04-05] MEDS: DULoxetine 30 MG CAP 60 MG PO (09:58)
[2024-04-05] MEDS: Isosorbide Mononitrate 30 MG TABCR 60 MG PO (09:59)
[2024-04-05] MEDS: ARIPiprazole 5 MG TAB PO (10:00)
[2024-04-05] MEDS: Aspirin E.C. 81 MG TABEC PO (10:00)
[2024-04-05] MEDS: Finasteride 5 MG TAB PO (10:01)
[2024-04-05] MEDS: Metoprolol CR 50 MG TABCR PO (10:02)
[2024-04-05] MEDS: Insulin Aspart 300 UNITS/3 ML PEN SC ×7 (10:10→21:40)
[2024-04-05] MEDS: Normal Saline Flush 10 ML SYR IVP (11:56)
[2024-04-05 12:01] VITALS: BP 139/83; PULSE 78; RESP 16; TEMP 36.3; O2SAT 99
[2024-04-05] MEDS: Tamsulosin 0.4 MG CAPCR PO (12:17)
[2024-04-05 14:17] LABS: Anion Gap 9.7 mmol/L (3-11); BUN 52 mg/dL (7-18); CO2 24.3 mmol/L (21.0-32.0); CREATININE 2.2 mg/dL (0.70-1.30); Calcium 9.2 mg/dL (8.5-10.1); Chloride 102 mmol/L (98-107); Estimated GFR 33.87 (mL/min/1.73m2); Glucose 350 mg/dL (74-106); Potassium 5.3 mmol/L (3.5-5.1); Sodium 136 mmol/L (136-145)
--- NOTE | 2024-04-05 14:44 | PGE_ITS ---
Date of Service Date of service: 04/05/24 Time of Service: 14:45 Assessment and Plan Assessment and plan (1) Prerenal azotemia: Status: Acute Assessment and plan: -Initially responded IV fluid hydration. -Renal ultrasound showed normal size kidneys no hydronephrosis and no stones but does have evidence of a large postvoid residual. -Patient has been started on Flomax and Proscar. Urology consult pending. -04/03 patient developed severe hyperkalemia despite not receiving any potassium supplement other than what was in the LR he was receiving. -Potassium went from 4.8-7.3 and then is 7.9 but has since responded to Lokelma is down to 5.8 AM 04/04 -Patient received 1 more dose of Lasix and continued normal saline through AM 04/05 -BUN is down to 77 from a high of 109 and creatinine is down to 2.9 from a high of 5.7. -Will keep him off his lisinopril which was not reordered during this hospitalization. -discontinued NS AM 04/05, K went from 4.9 to 5.3 when checked early PM 04/05 -may be secondary to elevated blood sugar (see below for details) -f/u AM BMP (2) Hyperkalemia: Status: Acute Assessment and plan: -as noted above (3) Dehydration: Status: Resolved Assessment and plan: -as above. (4) Type 2 diabetes mellitus: Status: Chronic Assessment and plan: -poorly controlled DM, A1C 10.4, glucose running in the 300's -again increased levemir, 30U to 36U BID starting PM 04/05 as blood sugar increased about 100 points from AM to PM labs -continue SSI Qualifiers: Diabetes mellitus termite control representative insulin use: with termite control representative use Diabetes mellitus complication status: with neurologic complications Diabetes mellitus complication detail: with polyneuropathy Qualified Code(s): E11.42 - Type 2 diabetes mellitus with diabetic polyneuropathy; Z79.4 - halfway (current) use of insulin (5) Hypertension: Status: Chronic Assessment and plan: -continue his metoprolol and his isosorbide mononitrate but hold lisinopril in light of his azotemia Qualifiers: Hypertension type: essential hypertension Qualified Code(s): I10 - Essential (primary) hypertension (6) Coronary artery disease: Status: Acute Assessment and plan: -continue isosorbide mononitrate, metoprolol, aspirin; hold atorvastatin until renal fxn improves. Qualifiers: Coronary Disease-Associated Artery/Lesion type: [place] artery [place] vs. transplanted heart: [place] heart Associated angina: without angina Qual ified Code(s): I25.10 - Atherosclerotic heart disease of [place] coronary artery without angina pectoris (7) Depression with anxiety: Assessment and plan: -continue trazadone and abilify Subjective Subjective Interval history since last seen: Patient states that he is feeling well today. He understands the plan to continue to work on his blood sugar and potasium levels. Exam Narrative Exam Narrative: well appearing gentleman sitting up in the chair in no acute distress, AOx4, heart RRR, lungs CTAB, abdomen soft, non-tender, non-distended Objective Last Vital Signs Temp 97.3 F L 04/05/24 12:01 Pulse 78 04/05/24 12:01 Resp 16 04/05/24 12:01 BP 139/83 04/05/24 12:01 Pulse Ox 99 04/05/24 12:01 Laboratory Results - last 24 hr 04/04/24 04/05/24 04/05/24 20:00 06:23 13:58 WBC 4.67 RBC 4.23 L Hgb 12.2 L Hct 35.4 L MCV 84 MCH 28.8 MCHC 34.5 RDW 13.3 Plt Count 165 MPV 9.4 Sodium 139 136 Potassium 4.9 5.3 H Chloride 106 102 Carbon Dioxide 22.2 24.3 Anion Gap 10.8 9.7 BUN 57 H 52 H Creatinine 2.3 H 2.2 H Est GFR (CKD-EPI 2020) 32.11 33.87 Glucose 224 H 350 H Calcium 8.8 9.2 Time Spent with Patient Time Spent with Patient: >50 minutes Time was spent: preparing to see the patient(eg.review tests), obtaining and/or reviewing separately otained hiistory, ordering medications,tests, procedures, referring, communicating with other health urgent care nurse practitioner, indepentently interpreting results, counseling the patient and care coordination
[2024-04-05 15:41] VITALS: BP 140/90; PULSE 77; RESP 18; TEMP 36.5; O2SAT 99
[2024-04-05] MEDS: traZODone 100 MG TAB PO (19:58)
[2024-04-05 20:05] VITALS: BP 137/84; PULSE 79; RESP 18; TEMP 36.5; O2SAT 97
[2024-04-06 04:13] VITALS: BP 103/65; PULSE 79; RESP 18; TEMP 36.6; O2SAT 95
[2024-04-06] MEDS: Heparin 5,000 UNITS/ML VIAL 5000 UNITS SC (05:06)
[2024-04-06 07:07] LABS: HCT 34.5 % (40.0-50.0); HGB 12.3 g/dL (13.5-17.5); MCH 28.9 pg (27.0-33.0); MCHC 35.7 % (32.0-36.0); MCV 81 fL (80-95); MPV 9.5 fL (8.0-11.0); Platelet Count 169 10^3/uL (130-400); RBC 4.25 10^6/uL (4.36-5.78); RDW 13.5 % (11.8-14.1); WBC 5.77 10^3/uL (4.4-10.8)
[2024-04-06 07:22] LABS: Anion Gap 9.3 mmol/L (3-11); BUN 44 mg/dL (7-18); CO2 24.7 mmol/L (21.0-32.0); CREATININE 2.1 mg/dL (0.70-1.30); Calcium 9.3 mg/dL (8.5-10.1); Chloride 108 mmol/L (98-107); Estimated GFR 35.81 (mL/min/1.73m2); Glucose 187 mg/dL (74-106); Sodium 142 mmol/L (136-145)
--- NOTE | 2024-04-06 07:30 | DI.US_ITS ---
APPROVED REPORT EXAM: Comprehensive 2D, Doppler, and color-flow Echocardiogram Patient Location: In-Patient Room/Bed: 226 Nanotechnologist: Emerson Hassan RDCS (AE) Indications: Evaluate LV function, history of AL Other Information Technically limited study due to body habitus. Conclusion Normal ventricular wall thickness and chamber size. Ejection fraction 60%. Wall motion is normal Normal right ventricular size and function Both atria are normal in size There is no structural or hemodynamically significant valvular disease Wall motion Left Ventricle The left ventricle is normal size. The left ventricular systolic function is normal. The left ventric ular ejection fraction is within the normal range. There is normal left ventricular wall thickness. T here is normal LV segmental wall motion. There is no ventricular septal defect visualized. LVEF is 60 %. Right Ventricle The right ventricle is normal size. The right ventricular systolic function is normal. Atria The left atrium size is normal. The right atrium size is normal. The interatrial septum is intact wit h no evidence for an atrial septal defect. Aortic Valve The aortic valve is normal in structure. There is no aortic valvular stenosis. No aortic regurgitatio n is present. Mitral Valve The mitral valve is normal in structure. No evidence of mitral valve stenosis. Trace mitral regurgita tion. Tricuspid Valve The tricuspid valve is normal in structure. There is no tricuspid valve stenosis. Trace tricuspid reg urgitation. Unable to assess PA pressure. Pulmonic Valve Pulmonic valve is not well visualized. There is no pulmonic valvular regurgitation. Great Vessels The aortic root is normal in size. The ascending aorta is normal in size. Aortic arch is normal in ca liber. IVC is normal in size and collapses >50% with inspiration. Pericardium There is no pericardial effusion. 2D Dimensions IVSD d PLAX 0.76 cm M: 0.6-1.2 Ao Root d 3.28 cm M: 3.1 - 3.7 LVPW d PLAX 0.81 cm M: 0.6 - 1.2 Ao Asc Diam d 3.30 cm M: 2.6 - 3.4 LVID d PLAX 4.35 cm M: 4.2 - 5.8 LVDs 2.96 cm M: 2.5 - 4.0 LV EF Teichholz 60.3 % FS 31.95 % LV EDV (Teich) 85.4 mL LV ESV (Teich) 33.9 mL Stroke Vol Index (Teich) 23.96 M-Mode TAPSE 2.17 cm (M/F) >1.7 Auto EF LV EDV A4C 127.7 mL LV EDV A2C 69.7 mL LV EDV BP 94.9 mL LV ESV A4C 52.6 mL LV ESV A2C 27.6 mL LV ESV BP 38.5 mL LVEF(%) A4C 58.8 % LVEF(%) A2C 60.3 % LVEF(%) BP 59.4 % LV SV A4C 75.0 ml LV SV A2C 42.1 ml LV SV BP 56.4 ml LV CO A4C 5.9 L/min LV CO A2C 3.4 L/min LV CO BP 4.6 L/min HR A4C 78.26 BPM HR A2C 81.08 BPM LV EDV Index (BP) LA Volume LA Length A4C 3.9 cm LA Length A2C 3.2 cm LA Area A4C s 9.58 cm2 LA Area A2C s 8.09 cm2 LA Vol A4C A-L 20.22 mL LA Vol A2C A-L 17.19 mL LA Vol Biplane A-L 20.3 mL LA Vol/BSA A4C A-L LA Vol/BSA A2C A-L LA Vol/BSA BP A-L 9.5 mL/m2 LA Vol A4C MOD 18.3 mL LA Vol A2C MOD 16.6 mL LA Vol BP MOD 18.8 mL RA Volume RA Area A4C 7.1 cm2 RA ESV A4C (A-L) 10.7mL RA Vol/BSA A4C A-L RA Length A4C 4.0 cm RA ESV A4C (MOD) 11.0mL LV Diastology MV E' medial 0.087 (>0.07 m/s) MV E Vmax 0.82 (0.4-1.3 m/s) MV E/E' MED 9.39 (<14) MV A Vmax 0.90 (0.4-1.3 m/s) MV E' lateral 0.112 (>0.1 m/s) E/A Ratio 0.9 MV E/E' LAT 7.33 (<14) MV E' Average 0.100 m/s MV E/E'(average) 8.24 Aortic Valve AoV Vmax 1.31 m/s LVOT Vmax 1.11 m/s AoV Peak Grad 6.9 mmHg LVOT Peak Grad 4.9 mmHg AoV Area (Vmax) 2.77 cm2 LVOT VTI 0.232 m AoV VTI 0.269 m LVOT Mean Grad 2.9 mmHg AoV Mean Benjamin. 0.94 m/s LVOT SV 75.75 mL AoV Mean Grad 4.0 mmHg LVOT Diam s 2.00 cm AoV Area (VTI) 2.82 cm2 AV Regurg Peak Gr. 6.85 mmHg Velocity Ratio 0.85 Mitral Valve MV DT 240 (160-240 msec) MV Vmax TIPS 1.03 m/s MV Mean Grad 2.0 (<2mmHg) MV VTI 0.280 m Pulmonary Valve PV Vmax 1.01 (0.5-1.5 m/s) RVOT Vmax 0.52 m/s PV Peak Grad 4.1 mmHg RVOT Peak Gr. 1.1 mmHg PV Mean Bnejamin 0.73 m/s RVOT VTI 0.115 m PV Mean Grad 2.4 mmHg RVOT Mean Gr. 0.7 mmHg
[2024-04-06 08:00] VITALS: BP 157/82; PULSE 93; RESP 20; TEMP 36.5; O2SAT 96
[2024-04-06] MEDS: Tamsulosin 0.4 MG CAPCR PO (08:28)
[2024-04-06] MEDS: Metoprolol CR 50 MG TABCR PO (08:28)
[2024-04-06] MEDS: Isosorbide Mononitrate 30 MG TABCR 60 MG PO (08:28)
[2024-04-06] MEDS: Sertraline 100 MG TAB 200 MG PO (08:28)
[2024-04-06] MEDS: DULoxetine 30 MG CAP 60 MG PO (08:28)
[2024-04-06] MEDS: Aspirin E.C. 81 MG TABEC PO (08:29)
[2024-04-06] MEDS: Finasteride 5 MG TAB PO (08:29)
[2024-04-06] MEDS: ARIPiprazole 5 MG TAB PO (08:29)
[2024-04-06] MEDS: Insulin Aspart 300 UNITS/3 ML PEN SC ×2 (08:29→08:30)
--- NOTE | 2024-04-06 10:07 | CMDISCH_ITS ---
Date of service: 04/06/24 Time of Service: 10:07 LACE Index Scoring Tool Questions: Length of Stay (in days): 4 - 6 Was the patient admitted via the E.D.?: Yes Comorbidities: Diabetes w/o Complication E.D. Visits: 2 Answers: Total Score: 10 Risk of Readmission: High Risk Care Management Discharge Plan Reason for Hospitalization: Azotmia, dehydration Discharge Plan: Isiah is discharge home via private vehicle. He will follow up with community providers and his discharge plan of care as instructed. No new services are ordered at the time of discharge. Patient/Family Education Needs: Review discharge instructions, limitations, medications and plan to follow up with community providers. Discuss ask me three. [facility] Health Related Social Needs: No Data to Display Referrals and interventions: no needs at this time.
--- NOTE | 2024-04-06 12:06 | W.PM.DS.N ---
Date of service: 04/06/24 Time of Service: 12:06 DS: Diagnosis Discharge Diagnosis (1) Prerenal azotemia: Status: Acute (2) Hyperkalemia: Status: Acute (3) Dehydration: Status: Resolved (4) Type 2 diabetes mellitus: Status: Chronic (5) Hypertension: Status: Chronic (6) Coronary artery disease: Status: Acute (7) Depression with anxiety: Discharge Plan Disposition Patient Disposition: Home Condition: Good Discharge Details Reason For Visit: Azotemia, Dehydration Admit Date/Time: 04/02/24 15:36 Admit Provider: Surjit Leahy Attending Provider: Surjit Leahy Primary Care Provider: Sravani Salas Hospital Course Hospital Course: Patient initially presented with weakness and dizziness for a few days that was ultimately determined to be secondary to dehydration resulting in prerenal azotemia, hyperkalemia, and also found to have uncontrolled type 2 diabetes. During hospitalization patient potassium significantly increased up to about 7 as well as his creatinine going up to about 5.7. He was aggressively fluid rehydrated and given Lokelma which ultimately resulted in significant improvement of his potassium down to 4.9 and a creatinine down to 2.1. Additionally, patient had his lisinopril held during hospitalization and will continue to hold until patient follows up with his primary care physician in 1 to 2 weeks after discharge. Patient's blood sugars were also elevated and during hospitalization he had his twice daily Levemir increased up to a total of 36 units twice daily, but will be discharged and instructed to take his home dose of 45U bid. Given the patient's blood sugar, potassium and creatinine all significantly improved during hospitalization with the above-mentioned interventions, it was determined that the patient was stable for discharge home. Home Meds and New Rx's Prescriptions: New metoprolol succinate 50 mg Tablet Extended Release 24 Hr 50 mg PO DAILY Qty: 90 0RF tamsulosin 0.4 mg Capsule 0.4 mg PO DAILY Qty: 90 0RF finasteride 5 mg Tablet 5 mg PO DAILY Qty: 90 0RF Continued atorvastatin 20 MG tablet 40 mg PO HS isosorbide mononitrate 30 MG tablet extended release 24 hr 60 mg PO DAILY Qty: 180 3RF aripiprazole 5 mg tablet 5 mg PO DAILY imipramine HCl 50 mg tablet 50 mg PO HS sertraline 100 mg tablet 200 mg PO DAILY trazodone 100 mg tablet 100 mg PO QHS allopurinol 300 MG tablet 300 mg PO HS nitroglycerin [Nitrostat] 0.4 MG tablet, sublingual 0.4 mg Sublingual Q5 MIN PRN X3 PRNQty: 100 0RF Humulin R U-500 (Conc) Insulin 500 UNIT/ML solution 500 unit SQ DIRECTED ferrous sulfate 325 mg (65 mg iron) Tablet 325 mg PO DAILY duloxetine 60 mg Capsule,Delayed Release(Dr/Ec) 60 mg PO HS Levemir U-100 Insulin 100 unit/mL solution 45 unit SUBCUT BID magnesium L-lactate 84 mg tablet extended release 84 mg PO BID ibuprofen 600 MG tablet 600 mg PO TID Qty: 12 0RF Rx Instructions: take with food aspirin 325 MG tablet 325 mg PO DAILY Held lisinopril 40 mg tablet 20 mg PO DAILY Hold Instructions: Resume on 05/02/24. hold until seen by PCP metformin 500 mg tablet extended release 24 hr 500 mg PO BID Hold Instructions: Resume on 05/02/24. hold until seen by PCP Discontinued metoprolol succinate 25 MG tablet extended release 24 hr 50 mg PO DAILY Qty: 3 gabapentin 600 mg tablet 900 mg PO QID Patient Comments: Takes 3600 mg daily over 3 doses glimepiride [Amaryl] 4 MG tablet 8 mg PO DAILY No Action (DME) insulin syringe-needle U-100 [BD Veo Insulin Syringe UF] 1/2 mL 31 gauge x 15/64 syringe MISCELLANEOUS Patient Comments: USE 1 NEW SYRINGE DIRECTED FIVE TIMES DAILY Discharge Instructions Instructions: Hyperkalemia, Weakness Stand Alone Forms: Nursing Discharge Form Referrals: Sravani Salas [Primary Care Provider] - 04/10/24 2:15 pm Activity:: Activity as Tolerated Equipment/Supplies:: No Equipment Needed Diet:: As Tolerated Discharge Orders Discharge Orders: Discharge Order (Routine); Ordered 04/06/24 Ordered By: Angel Blanco DS: Summary Time Spent with Patient providing and/or coordinating discharge services: Greater than 30 minutes Status at Discharge Functional status at discharge: independent ambulation Overall status at discharge: patient is back to baseline Mental Status: mental status grossly normal Speech and Movement: speech and movement normal Mood: congruent mood Affect: normal affect Quality:SDOH Health Related Social Needs: No Data to Display Referrals and interventions: no needs at this time. Exam Narrative Exam Narrative: well appearing gentleman sitting up in the chair in no acute distress, AOx4, heart RRR, lungs CTAB, abdomen soft, non-tender, non-distended Psych Mental Status: mental status grossly normal Speech and Movement: speech and movement normal Mood: congruent mood Affect: normal affect DS: Data Vitals/I&O Vitals and I&O: Vital Signs Temperature 97.7 F 04/06/24 08:00 Temperature Source Temporal Artery Scan 04/06/24 08:00 Pulse 93 H 04/06/24 08:00 Pulse Rhythm Regular 04/06/24 08:00 Pulse 69 04/02/24 14:02 Respiratory Rate 20 04/06/24 08:00 Respiratory Effort Normal, Non-Labored 04/06/24 08:00 Respiratory Depth Normal 04/06/24 08:00 Respiratory Pattern Normal 04/06/24 08:00 Blood Pressure 157/82 H 04/06/24 08:00 Blood Pressure Mean 79 04/02/24 15:32 Blood Pressure Position Sitting 04/02/24 10:43 Pulse Oximetry 96 04/06/24 08:00 Oxygen Delivery Method Room Air 04/06/24 08:00 Oxygen Flow Rate 0 04/06/24 08:00 Pain Level 0 04/06/24 04:13 Comment will inform RN of BP 04/05/24 06:57 Intake & Output 04/05/24 04/06/24 04/06/24 17:59 05:59 17:59 Intake Total / 240 / 2246.25 240 / 240 Output Total 375 / 375 Balance 1631.25 / 1631.25 240 / 1871.25 240 / 240 Weight 227 lb 1.218 oz Intake: IV 1406.25 / 1406.25 Oral 600 / 600 240 / 840 240 / 240 Output: Urine 375 / 375 Other: Urine Color Yellow Yellow Urine Appearance Clear Clear Clear Urine Odor None None Comment PVR per patient he voided in toilet Voiding independently in toilet. Denies GI/ sx. Stool Size Small Moderate Stool Characteristics Soft Soft Formed Formed Voiding Methods Urinal Toilet Data Completed and Pending Labs on day of discharge: Labs from last 24 hours 04/06/24 04/05/24 04/03/24 06:25 13:58 06:00 WBC 5.77 RBC 4.25 L Hgb 12.3 L Hct 34.5 L MCV 81 MCH 28.9 MCHC 35.7 RDW 13.5 Plt Count 169 MPV 9.5 Sodium 142 136 Potassium 5.0 5.3 H Chloride 108 H 102 Carbon Dioxide 24.7 24.3 Anion Gap 9.3 9.7 BUN 44 H 52 H Creatinine 2.1 H 2.2 H Est GFR (CKD-EPI 2020) 35.81 33.87 Glucose 187 H 350 H Calcium 9.3 9.2 PSA Screen 0.4 Preliminary micro results at discharge 04/02/24 11:05 Blood Culture - Preliminary Blood NO GROWTH 72 HOURS 04/02/24 11:03 Blood Culture - Preliminary Blood NO GROWTH 72 HOURS PFSH All Active Problems (Updated 04/06/24 @ 09:15 by Angel Blanco MD) Hyperkalemia (Acute) Prerenal azotemia (Acute) Prepatellar bursitis, left knee (Acute) Hypertension (Chronic) Type 2 diabetes mellitus (Chronic) Coronary artery disease (Acute) Angina pectoris (Acute) Medical History Depression with anxiety Gout Social History Smoking/Tobacco Use Status: Never Smoking risk assessment performed?: Yes Alcohol Intake: never Drug use: Never Substance use type: does not use Housing: house Do you feel safe at home: No Do you feel safe in your relationship?: No Time Spent with Patient Time Spent with Patient: <45 minutes Time was spent: preparing to see the patient(eg.review tests), obtaining and/or reviewing separately otained hiistory, ordering medications,tests, procedures, referring, communicating with other health hemodialysis patient care specialist, indepentently interpreting results, counseling the patient and care coordination
== END 2024-04-06 11:55 | disposition home or self-care (01) | DRG 641 ==
LOC: ER 15:36 → MS 15:54
PROVIDERS: Family Medicine; Admitting Provider Internal Medicine; Emergency Provider Physician Assistant; PCP Nurse Practitioner Family; Visit Provider Internal Medicine
DX: E86.0 Dehydration (principal); E11.42 Type 2 diabetes mellitus with diabetic polyneuropathy; E11.65 Type 2 diabetes mellitus with hyperglycemia; R94.31 Abnormal electrocardiogram [ECG] [EKG]; Z79.4 Long term (current) use of insulin; I25.10 Atherosclerotic heart disease of native coronary artery without angina pectoris; I10 Essential (primary) hypertension; E87.5 Hyperkalemia; F41.8 Other specified anxiety disorders; I25.2 Old myocardial infarction; Z95.5 Presence of coronary angioplasty implant and graft; D64.9 Anemia, unspecified; Z79.899 Other long term (current) drug therapy; R79.89 Other specified abnormal findings of blood chemistry; R33.8 Other retention of urine
CPT/HCPCS: 00123; 36415; 36416; 51798; 76770; 80048; 80053; 82550; 82962; 84145; 84153; 85027; 87040; 93005; 96360; 96361; 96372; 99285; 81003; 83036; 83605; 83735; 83880; 84132; 84443; 84484; 85025; 93010; 93306; 99222; 99232; 99233; 99238; J0613; J1644; J1815; J1940; J1941

== ENCOUNTER 2024-04-10 16:52 | Outpatient (REF) | payer MEDICAID, SELFPAY ==
[2024-04-10 21:25] LABS: ALT 43 U/L (16-63); AST 28 U/L (15-37); Albumin 3.9 g/dL (3.4-5.0); Alkaline Phosphatase 87 U/L (46-116); Anion Gap 9.3 mmol/L (3-11); BUN 49 mg/dL (7-18); Bilirubin, Total 0.37 mg/dL (0.2-1.0); CO2 25.7 mmol/L (21.0-32.0); CREATININE 2.3 mg/dL (0.70-1.30); Calcium 9.7 mg/dL (8.5-10.1); Chloride 103 mmol/L (98-107); Estimated GFR 32.11 (mL/min/1.73m2); Glucose 161 mg/dL (74-106); Potassium 5.1 mmol/L (3.5-5.1); Sodium 138 mmol/L (136-145); Total Protein 7.6 g/dL (6.4-8.2)
== END 2024-04-10 16:53 | disposition home or self-care (01) ==
LOC: NCHCN 16:52
PROVIDERS: PCP Nurse Practitioner Family; Visit Provider Nurse Practitioner Family
DX: N25.89 Other disorders resulting from impaired renal tubular function (principal)
CPT/HCPCS: 80053

== ENCOUNTER → 2024-04-20 10:08 | Outpatient (BNVA) | payer MEDICARE, OTHER, MEDICAID, SELFPAY | PROVIDERS: PCP Nurse Practitioner Family; Referring Provider Nurse Practitioner Family | DX: M23.91 Unspecified internal derangement of right knee (principal) | CPT/HCPCS: 99213 ==

== ENCOUNTER 2024-05-05 09:47 | Outpatient (CLI) | payer MEDICARE, OTHER, MEDICAID, SELFPAY ==
[2024-05-05 09:18] LABS: Anion Gap 7.4 mmol/L (3-11); BUN 24 mg/dL (7-18); CO2 25.6 mmol/L (21.0-32.0); CREATININE 1.8 mg/dL (0.70-1.30); Calcium 9.2 mg/dL (8.5-10.1); Chloride 104 mmol/L (98-107); Estimated GFR 43.09 (mL/min/1.73m2); Glucose 265 mg/dL (74-106); Potassium 5.4 mmol/L (3.5-5.1); Sodium 137 mmol/L (136-145); Uric Acid 7.3 mg/dL (3.5-7.2)
== END 2024-05-05 09:48 | disposition home or self-care (01) ==
LOC: LBO 10:15
PROVIDERS: PCP Nurse Practitioner Family; Visit Provider Nurse Practitioner Family
DX: N18.9 Chronic kidney disease, unspecified (principal)
CPT/HCPCS: 36415; 80048; 84550

== ENCOUNTER 2024-05-08 00:11 | Outpatient (CLI) | payer MEDICARE, OTHER, MEDICAID, SELFPAY ==
--- NOTE | 2024-05-08 08:15 | DI.MRI_ITS ---
Exam(s) MR LOWER JOINT RT WO EXAM: MR LOWER JOINT RT WO CLINICAL HISTORY: PAIN,internal derangement rt knee, m23.91. TECHNIQUE: Multiplanar multisequence MRI was performed. COMPARISON: MR MRI R LOWER JOINT WO CONT from 02/15/2011 CR XR KNEE RT 3V AP,LAT,JARED from 02/26/2024 FINDINGS: The examination is limited due to patient motion artifact. BONES: Mild marrow edema seen in the proximal tibia and the medial femoral condyle. No fracture is a ppreciated. JOINTS: There is thinning of the articular cartilage overlying the medial patellar facet. There is a lso loss of the articular cartilage overlying the medial femoral condyle with mild subchondral edema. There is a small joint effusion. TENDONS: Extensor mechanism: Unremarkable. Medial retinaculum: Unremarkable. Lateral retinaculum: Unremarkable. Popliteus: Unremarkable. MUSCLES: Unremarkable. MENISCI: There is decreased size of the body and posterior horn of the medial meniscus. There is abn ormal signal present. The findings are suspicious for tear. Please correlate with any prior menisca l surgery. The lateral meniscus is unremarkable. SOFT TISSUES: There is mild edema seen in the soft tissues particularly posteriorly and medially. No te is made of a popliteal cyst measuring 3.8 x 2.5 x 4.6 cm. LIGAMENTS: Anterior Cruciate: The anterior cruciate ligament is absent consistent with a tear. Posterior Cruciate: Unremarkable. Medial Collateral:Unremarkable. Lateral Collateral: Unremarkable. OTHER: IMPRESSION: 1. Please correlate with any prior patient's surgical history. 2. Findings suspicious for tear of the body and posterior horn of the medial meniscus. 3. Torn anterior cruciate ligament. 4. Chondromalacia. 5. Popliteal cyst. 6. Mild contusions involving the proximal tibia and medial femoral condyle. DATA REPOSITORY:
== END 2024-05-08 00:31 ==
PROVIDERS: PCP Nurse Practitioner Family; Visit Provider Student in an Organized Health Care Education/Training Program
DX: S83.511A Sprain of anterior cruciate ligament of right knee, initial encounter (principal); X58.XXXA Exposure to other specified factors, initial encounter
CPT/HCPCS: 73721

== ENCOUNTER 2024-05-14 03:32 | Outpatient (CLI) | payer MEDICARE, OTHER, MEDICAID, SELFPAY ==
[2024-05-14 12:41] LABS: Anion Gap 8.9 mmol/L (3-11); BUN 23 mg/dL (7-18); CO2 27.1 mmol/L (21.0-32.0); CREATININE 1.9 mg/dL (0.70-1.30); Calcium 9.1 mg/dL (8.5-10.1); Chloride 106 mmol/L (98-107); Estimated GFR 40.38 (mL/min/1.73m2); Potassium 4.5 mmol/L (3.5-5.1); Sodium 142 mmol/L (136-145)
[2024-05-14 12:52] LABS: Glucose 49 mg/dL (74-106)
== END 2024-05-14 03:33 | disposition home or self-care (01) ==
LOC: LBO 03:32
PROVIDERS: PCP Nurse Practitioner Family; Visit Provider Nurse Practitioner Family
DX: E87.5 Hyperkalemia (principal)
CPT/HCPCS: 36415; 80048

== ENCOUNTER 2024-05-20 09:46 | Day surgery (SDC) | payer MEDICARE, OTHER, MEDICAID, SELFPAY ==
[2024-05-20] VITALS (18 sets, daily range): BP systolic 100–150; BP diastolic 44–81; PULSE 70–78; RESP 12–18; TEMP 36.2–36.5; O2SAT 96–98; BMI 37.6
--- NOTE | 2024-05-20 09:32 | W.PM.DSUDISC ---
Date of service: 05/20/24 Time of Service: 09:32 Discharge Plan Disposition Patient Disposition: Home Condition: Good Discharge Details Reason For Visit: R Knee Arthrscopy Attending Provider: Braden Garcia Primary Care Provider: Sravani Salas Home Meds and New Rx's Prescriptions: New hydrocodone-acetaminophen 5-325 mg tablet 1 tab PO Q6H PRN (Reason: pain) Qty: 6 0RF acetaminophen 500 mg tablet 1,000 mg PO TID Qty: 90 3RF ibuprofen 600 mg tablet 600 mg PO TID PRN (Reason: pain) Qty: 90 0RF Continued glimepiride 4 mg tablet 4 mg PO DAILY atorvastatin 20 MG tablet 40 mg PO HS isosorbide mononitrate 30 MG tablet extended release 24 hr 60 mg PO DAILY Qty: 180 3RF aripiprazole 5 mg tablet 5 mg PO DAILY imipramine HCl 50 mg tablet 50 mg PO HS lisinopril 40 mg tablet 20 mg PO DAILY sertraline 100 mg tablet 200 mg PO DAILY trazodone 100 mg tablet 100 mg PO QHS allopurinol 300 MG tablet 300 mg PO HS nitroglycerin [Nitrostat] 0.4 MG tablet, sublingual 0.4 mg Sublingual Q5 MIN PRN X3 PRNQty: 100 0RF Humulin R U-500 (Conc) Insulin 500 UNIT/ML solution 500 unit SQ DIRECTED ferrous sulfate 325 mg (65 mg iron) Tablet 325 mg PO DAILY duloxetine 60 mg Capsule,Delayed Release(Dr/Ec) 60 mg PO HS Levemir U-100 Insulin 100 unit/mL solution 45 unit SUBCUT BID (DME) insulin syringe-needle U-100 [BD Veo Insulin Syringe UF] 1/2 mL 31 gauge x 15/64 syringe MISCELLANEOUS Patient Comments: USE 1 NEW SYRINGE DIRECTED FIVE TIMES DAILY magnesium L-lactate 84 mg tablet extended release 84 mg PO BID metformin 500 mg tablet extended release 24 hr 500 mg PO BID metoprolol succinate 50 mg Tablet Extended Release 24 Hr 50 mg PO DAILY Qty: 90 0RF tamsulosin 0.4 mg Capsule 0.4 mg PO DAILY Qty: 90 0RF finasteride 5 mg Tablet 5 mg PO DAILY Qty: 90 0RF aspirin 325 MG tablet 325 mg PO DAILY Discontinued ibuprofen 600 MG tablet 600 mg PO TID Qty: 12 0RF Rx Instructions: take with food Discharge Instructions Stand Alone Forms: Anesthesia Discharge Inst., Davin Marks (DSU) Referrals: Braden Garcia MD [ [facility] STAFF PHYSICIAN] - Equipment/Supplies: Partial Weight Bearing Crutches Activity:: Activity as Tolerated Remove Dressings/Wound Care:: 72 hours Shower/Bathe:: 72 hours Diet:: As Tolerated Discharge Orders Discharge Orders: Discharge Order (Routine); Ordered 05/20/24 Ordered By: Jayy Herrera DS: Diagnosis Discharge Diagnosis (1) Tear of lateral meniscus of right knee: Status: Acute
[2024-05-20] MEDS: Lactated Ringers 1,000 ML 80 ML IV (10:23)
[2024-05-20] MEDS: Celecoxib 200 MG CAP 400 MG PO (10:47)
[2024-05-20] MEDS: Acetaminophen 500 MG TAB 1000 MG PO (10:47)
--- NOTE | 2024-05-20 11:18 | ANES.PREOP_ITS ---
General Info Date of Service Date Performed: 05/20/24 Height: 5 ft 6 in Weight: 105.8 kg Body Mass Index (BMI): 37.6 Surgical Procedure: Operation Date: 05/20/24 12:10 Proposed Procedure Side Surgeon p Knee Arthroscopy Partial Lateral Menisectomy Right Braden Garcia MD Meds Allergies and Home Medications Allergies Allergy/AdvReac Type Severity Reaction Status Date / Time amoxicillin Allergy Unknown Unknown Verified 05/20/24 10:28 Home Medication ?Medication ?Instructions ?Recorded allopurinol 300 mg tablet 300 mg PO HS 03/11/15 nitroglycerin 0.4 mg sublingual 0.4 mg sublingual Q5 MIN PRN X3 03/11/15 tablet (Nitrostat) PRN #100 tabs atorvastatin 20 mg tablet 40 mg PO HS 06/29/15 insulin regular hum U-500 conc 500 500 unit SQ DIRECTED 08/11/17 unit/mL subcutaneous soln (Humulin R U-500 (Concentrated) Insulin) isosorbide mononitrate 30 mg 60 mg (2 x 30 mg) PO DAILY ##180 10/30/17 tablet,extended release 24 hr aspirin 325 mg tablet 325 mg PO DAILY 02/06/18 duloxetine 60 mg capsule,delayed 60 mg PO HS 06/09/19 release ferrous sulfate 325 mg (65 mg 325 mg PO DAILY 06/09/19 iron) tablet insulin detemir U-100 100 unit/mL 45 unit subcut BID 10/25/22 subcutaneous solution (Levemir U-100 Insulin) aripiprazole 5 mg tablet 5 mg PO DAILY 03/17/24 imipramine HCl 50 mg tablet 50 mg PO HS 03/17/24 lisinopril 40 mg tablet 20 mg PO DAILY 03/17/24 sertraline 100 mg tablet 200 mg PO DAILY 03/17/24 trazodone 100 mg tablet 100 mg PO QHS 03/17/24 insulin syringe-needle U-100 /2 04/02/24 mL 31 gauge x 15/64 (BD Veo Insulin Syringe Ultra-Fine) magnesium L-lactate 84 mg 84 mg PO BID 04/03/24 tablet,extended release metformin 500 mg tablet,extended 500 mg PO BID 04/03/24 release 24 hr finasteride 5 mg tablet 5 mg PO DAILY #90 tabs 04/06/24 metoprolol succinate 50 mg 50 mg PO DAILY #90 tabs 04/06/24 tablet,extended release 24 hr tamsulosin 0.4 mg capsule 0.4 mg PO DAILY #90 caps 04/06/24 glimepiride 4 mg tablet 4 mg PO DAILY 04/20/24 acetaminophen 500 mg tablet 1,000 mg (2 x 500 mg) PO TID #90 05/20/24 tabs hydrocodone 5 mg-acetaminophen 325 1 tab PO Q6H PRN pain #6 tabs 05/20/24 mg tablet ibuprofen 600 mg tablet 600 mg PO TID PRN pain #90 tabs 05/20/24 Current Visit Medications: Current Medications Generic Name Dose Route Start Last Admin Trade Name Freq PRN Reason Stop Dose Admin Acetaminophen 1,000 mg 05/20/24 06:00 05/20/24 10:47 Acetaminophen 500 Mg Tab PO 05/20/24 23:59 1,000 mg PREOP VERNA Administration Acetaminophen 650 mg 05/20/24 09:31 Acetaminophen 325 Mg Tab PO 06/19/24 09:30 Q4H PRN PRN Hydrocodone Bitart/Acetaminophen 0 tab 05/20/24 09:31 Hydrocodone 5/Acetaminophen 325 Tab PO 06/19/24 09:30 Q3H PRN PRN Pain Celecoxib 400 mg 05/20/24 06:00 05/20/24 10:47 Celecoxib 200 Mg Cap PO 05/20/24 23:59 400 mg PREOP VERNA Administration Ringer's Solution 1,000 mls @ 80 mls/hr 05/20/24 06:00 05/20/24 10:23 IV 05/20/24 23:59 80 mls/hr INFUSION VERNA Administration Cefazolin Sodium/Dextrose 2 gm in 50 mls @ 100 mls/hr 05/20/24 06:00 Ancef Duplex IVPB 05/20/24 23:59 PREOP VERNA Tranexamic Acid/Sodium Chloride 1,000 mg in 100 mls @ 600 mls/hr 05/20/24 06:00 IVPB 05/20/24 23:59 PREOP VERNA IV Miscellaneous Supplies 1 each 05/20/24 06:00 Iv Access IV 05/20/24 23:59 DIRECTED VERNA Sodium Chloride 0 ml 05/20/24 06:00 Normal Saline Flush 10 Ml Syr IV 05/20/24 23:59 PRN PRN Sodium Chloride 0 ml 05/20/24 06:00 Normal Saline 10 Ml Vial IJ 05/20/24 23:59 DIRECTED PRN Sterile Water 0 ml 05/20/24 06:00 Water,Injection,Sterile 10 Ml Vial IJ 05/20/24 23:59 DIRECTED PRN PFSH Active Problems Active Problems: Problem Status Onset Code Tear of lateral meniscus of right knee Acute S83.281A Elevated serum creatinine Acute R79.89 Prepatellar bursitis, left knee Acute M70.42 Hypertension Chronic I10 Type 2 diabetes mellitus Chronic E11.9 Coronary artery disease Acute I25.10 Angina pectoris Acute I20.9 Medical History Medical History Depression with anxiety Gout Tobacco Smoking/Tobacco Use Status: Never Alcohol Alcohol Intake: current Alcohol intake frequency: a few times a month Alcohol type: hard liquor Substance Use Substance use: Never Substance use type: does not use Vital Signs and Lab Results Vital Signs Most Recent Vital Signs in EMR: Most Recent Vital Signs Temp Pulse Resp BP Pulse Ox 36.5 C 78 18 122/67 97 05/20/24 10:19 05/20/24 10:19 05/20/24 10:19 05/20/24 10:19 05/20/24 10:19 Point of Care Results Point of Care Results: Finger Stick Blood Glucose 64 05/20/24 10:04 Lab Results Blood Type / Crossmatch: No Data to Display Complete Blood Count: No Data to Display Complete Metabolic Panel: Sodium 142 mmol/L (136-145) 05/14/24 11:20 Potassium 4.5 mmol/L (3.5-5.1) 05/14/24 11:20 Chloride 106 mmol/L (98-107) 05/14/24 11:20 Carbon Dioxide 27.1 mmol/L (21.0-32.0) 05/14/24 11:20 BUN 23 mg/dL (7-18) H 05/14/24 11:20 Creatinine 1.9 mg/dL (0.70-1.30) H 05/14/24 11:20 Est GFR (CKD-EPI 2020) 40.38 (mL/min/1.73m2) 05/14/24 11:20 Calcium 9.1 mg/dL (8.5-10.1) 05/14/24 11:20 Glucose 49 mg/dL (74-106) L* 05/14/24 11:20 Liver Function Panel: No Data to Display Coagulation Panel: No Data to Display Cardiac Panel: No Data to Display Arterial Blood Gas: No Data to Display Venous Blood Gas: No Data to Display Pancreas Panel: No Data to Display Thyroid Panel: No Data to Display Infectious Disease: No Data to Display Blood Cultures: No Data to Display Toxicology Panel: No Data to Display Imaging and Studies Imaging and Studies Study information below may be from another EMR and interpreted by another provider. Please see original notes in EMR for more complete details. EKG Summary: 04/03/24: Exam: Resting ECG Reason for Exam: hyperkalemia Patient Location: I HR:77 bpm ECG Measurements Heart Rate 77 AXIS NE 205 P 25 QRSd 119 QRS 3 QT 379 T20 QTc 430 Conclusion Sinus rhythm...normal P axis, V-rate 60- 99 Borderline prolonged NE interval...NE >202, V-rate 50- 90 Low voltage, extremity leads...all extremity leads <0.5mV Stress Test Summary: 08/12/2017: Impressions: Normal perfusion by [id number] [facility]. Summary: 1. Myocardial perfusion imaging: No myocardial perfusion defects noted. 2. The calculated left ventricular ejection fraction after stress: 46%. No left ventricular regional motion abnormality. Echocardiogram Summary: 04/06/24: Conclusion Normal ventricular wall thickness and chamber size. Ejection fraction 60%. Wall motion is normal Normal right ventricular size and function Both atria are normal in size There is no structural or hemodynamically significant valvular disease Anesthesia Assessment and Plan Anesthesia History Personal History: No History of Anesthesia Complications Family History: No Family History of Anesthesia Complications Exercise Tolerance Exercise Tolerance: Metabolic Equivalents>4 Pertinent Negatives Pertinent Negatives: No Symptoms of GERD, No Major Cardiovascular Symptoms or Complaints and No Major Pulmonary Symptoms or Complaints Cardiac & Pulmonary Exam Cardiac Exam: Normal S1/S2 Heart Sounds Pulmonary Exam: Clear Bilateral Breath Sounds Implantable Cardiac Device Does patient have a Pacemaker or an ICD?: No Airway Exam Known Difficult Airway: No Mallampati Class: 1 Mouth Opening: Normal (> 3cm) Thyromental Distance: Greater than 3 cm Neck Range of Motion: Full ROM Neck Circumference: Thick Teeth Condition: Normal Dentition ASA Classification ASA Score: ASA 3 Emergency Case?: No NPO Status NPO Status: NPO Clears >2 hours, Solids >8 hours Anesthesia Plan Resuscitation Status: Full Code Anesthesia Technique: General Anesthesia Airway Planned: LMA Monitors Used: Standard Monitors and SedLine Preoperative Comments:: Patient reports that he has a scheduled [place] [facility] in the coming weeks. Discussed recent hospitalization with Dr. Garcia and patient reports he's feeling back at baseline.
--- NOTE | 2024-05-20 11:49 | W.PREOPHP ---
Assessment and Plan Assessment and plan (1) Tear of lateral meniscus of right knee: Status: Acute Assessment and plan: Isiah is a 59-year-old male who has type 2 diabetes and a lateral meniscal tear of the right knee. He is continue to have significant dysfunction given the popping, catching, locking, and pain from the lateral meniscal tear. He has improved significantly from his hospitalization. He still has some persistent kidney dysfunction but is being followed diligently and closely by his primary care team under the direction of Annamaria Salas. He would like to proceed with fixing the knee as soon as possible as this is causing daily dysfunction. I reviewed knee arthroscopy with partial lateral meniscectomy. I discussed the risk to include bleeding, infection, pain, stiffness, retear, worsening arthritis, blood clot. I also cautioned him that his diabetes and kidney function are somewhat tenuous and that is possible anesthesia in the surgery itself may worsen these things and he needs to follow-up closely with his primary; he does have a scheduled appointment next week. After reviewing all this, he elects to proceed. History of Present Illness Narrative: Isiah is a 59-year-old male who has known pain, popping, catching, about the right knee. This continues to cause him significant dysfunction. MRI proved a meniscal tear with a lateral meniscus on the right knee. He did have a hospitalization back in the beginning of April for uncontrolled diabetes, acute kidney injury and hyperkalemia. All this is improved. He currently reports no symptoms. He has been seeing his primary care provider, Annamaria Salas, on a routine basis. They are continue to work on diabetes medications but overall is not running hyperglycemic. He was urinating without difficulty. He is awaiting consultation at [facility]. He denies any chest pain or shortness of breath. Denies any muscle aches or pains. He had previous arthroscopic medial meniscectomy of the right knee some years ago did very well from this. Review of Systems All systems reviewed & are unremarkable except as noted in HPI and below PFSH All Active Problems Tear of lateral meniscus of right knee (Acute) S/P Arthroscopy: 05/20/2024 Elevated serum creatinine (Acute) Prepatellar bursitis, left knee (Acute) Hypertension (Chronic) Type 2 diabetes mellitus (Chronic) Coronary artery disease (Acute) Angina pectoris (Acute) Medical History Depression with anxiety Gout Social History Smoking/Tobacco Use Status: Never Smoking risk assessment performed?: Yes Alcohol Intake: current Alcohol Intake frequency: a few times a month Alcohol type: hard liquor Drug use: Never Substance use type: does not use Housing: house Do you feel safe at home: No (lives with parents) Do you feel safe in your relationship?: No Meds Allergies and Home Medications Allergies Allergy/AdvReac Type Severity Reaction Status Date / Time amoxicillin Allergy Unknown Unknown Verified 05/20/24 10:28 Home Medications ?Medication ?Instructions ?Recorded ?Confirmed ?Type allopurinol 300 mg tablet 300 mg PO HS 03/11/15 05/20/24 History nitroglycerin 0.4 mg sublingual 0.4 mg sublingual Q5 MIN PRN X3 03/11/15 05/20/24 Rx tablet (Nitrostat) PRN #100 tabs atorvastatin 20 mg tablet 40 mg PO HS 06/29/15 05/20/24 History insulin regular hum U-500 conc 500 500 unit SQ DIRECTED 08/11/17 05/20/24 History unit/mL subcutaneous soln (Humulin R U-500 (Concentrated) Insulin) isosorbide mononitrate 30 mg 60 mg (2 x 30 mg) PO DAILY ##180 10/30/17 05/20/24 Rx tablet,extended release 24 hr aspirin 325 mg tablet 325 mg PO DAILY 02/06/18 05/20/24 History duloxetine 60 mg capsule,delayed 60 mg PO HS 06/09/19 05/20/24 History release ferrous sulfate 325 mg (65 mg 325 mg PO DAILY 06/09/19 05/20/24 History iron) tablet insulin detemir U-100 100 unit/mL 45 unit subcut BID 10/25/22 05/20/24 History subcutaneous solution (Levemir U-100 Insulin) aripiprazole 5 mg tablet 5 mg PO DAILY 03/17/24 05/20/24 History imipramine HCl 50 mg tablet 50 mg PO HS 03/17/24 05/20/24 History lisinopril 40 mg tablet 20 mg PO DAILY 03/17/24 05/20/24 History sertraline 100 mg tablet 200 mg PO DAILY 03/17/24 05/20/24 History trazodone 100 mg tablet 100 mg PO QHS 03/17/24 05/20/24 History insulin syringe-needle U-100 1/2 04/02/24 04/20/24 History mL 31 gauge x 15/64 (BD Veo Insulin Syringe Ultra-Fine) magnesium L-lactate 84 mg 84 mg PO BID 04/03/24 05/20/24 History tablet,extended release metformin 500 mg tablet,extended 500 mg PO BID 04/03/24 05/20/24 History release 24 hr finasteride 5 mg tablet 5 mg PO DAILY #90 tabs 04/06/24 05/20/24 Rx metoprolol succinate 50 mg 50 mg PO DAILY #90 tabs 04/06/24 05/20/24 Rx tablet,extended release 24 hr tamsulosin 0.4 mg capsule 0.4 mg PO DAILY #90 caps 04/06/24 05/20/24 Rx glimepiride 4 mg tablet 4 mg PO DAILY 04/20/24 05/20/24 History acetaminophen 500 mg tablet 1,000 mg (2 x 500 mg) PO TID #90 05/20/24 Rx tabs hydrocodone 5 mg-acetaminophen 325 1 tab PO Q6H PRN pain #6 tabs 05/20/24 Rx mg tablet ibuprofen 600 mg tablet 600 mg PO TID PRN pain #90 tabs 05/20/24 Rx Exam Const General: cooperative, healthy appearing, comfortable and no acute distress Resp Effort & Inspection: normal respiratory effort Auscultation: clear to auscultation bilaterally Cardio Rate: regular rate Rhythm: regular rhythm Results Labs Labs: MRI of the right knee was previously reviewed. This demonstrates a complex tear of the lateral meniscus. Some mild chondromalacia of the lateral compartment but no full-thickness cartilage defects and no bone marrow edema. Last Vital Signs Temp 36.5 C 05/20/24 10:19 Pulse 78 05/20/24 10:19 Resp 18 05/20/24 10:19 BP 122/67 05/20/24 10:19 Pulse Ox 97 05/20/24 10:19
[2024-05-20] MEDS: ceFAZolin 2 GM/50 ML BAG IVPB (12:01)
[2024-05-20] MEDS: TRANEXAMIC ACID/SOD. CHL. 1,000 MG/100 ML BAG 600 MG IVPB (12:15)
[2024-05-20] MEDS: Bupivacaine 0.5% Pres-Free 30 ML VIAL (12:34)
[2024-05-20] MEDS: EPINEPHrine 10 MG/10 ML ML (12:34)
--- NOTE | 2024-05-20 13:07 | ROE_ITS ---
Date of service: 05/20/24 Time of Service: 12:15 Operative Note Operative Note DATE OF PROCEDURE: 05/20/24 PRE-OP DIAGNOSIS: Right lateral meniscus tear POST-OP DIAGNOSIS: other (Right lateral meniscus tear and ACL tear with di splaced ACL fragment) SURGEON: Braden Garcia ANESTHESIA TYPE: General LMA/ETT Refer to Anesthesia Record ESTIMATED BLOOD LOSS: 0 PATHOLOGY: none sent COMPLICATIONS: None Patient was transported to: PACU Patient's condition: stable Indications: I have seen Isiah in clinic for symptoms of a meniscus tear. This was confirmed based on MRI and exam findings. Nonoperative measures were exhausted but disability and pain persisted. I discussed knee arthroscopy with meniscal intervention with the patient. I reviewed the risks of the procedure to include, but not limited to, bleeding, infection, pain, stiffness, damage to nerves or vessels, recurrence, blood clot. Despite these risks, the patient elected to proceed. Findings: A diagnostic arthroscopy was performed with the following findings: Suprapatellar Pouch: No significant inflammation, No loose bodies Medial Compartment: Large portion of the posterior horn absent from previous resection but no new tear, Intact meniscal root, grade I/II chondromalacia with some fissuring, no loose bodies Notch: ACL was torn. 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 The consent was reviewed with the patient and signed. The history and physical was updated. All questions were answered. He was taken back to the operating room. The patient was placed into the supine position on the operating room table. All bony prominences were well padded. Prophylactic antibiotics in the form of Cefazolin were administered. The right leg was then prepped with Chloraprep and draped in a standard fashion with [facility] kinette and extremity drape. A timeout to confirm correct identity, side and site, procedure, allergies, anesthesia, and medical concerns was performed. A standard lateral portal was made at the lateral border of the patella tendon in line with the inferior pole of the patella, soft spot. The skin and deep tissue was incised sharply and the blunt trochar was inserted atraumatically. A diagnostic arthroscopy was performed and the findings are listed above. The suprapatellar pouch had no significant inflammatory change. The patellofemoral articulation showed grade II chondromalacia mostly of the trochlea as well as good tracking. The lateral gutter had no loose bodies and the medial gutter had no loose bodies. The knee was brought into some valgus stress in extension to open the medial compartment. A medial portal was made, localized by a spinal needle. The portal was created with an #11 blade through skin and capsule under direct visualization avoiding any meniscal injury. A probe was then inserted into the medial compartment. The medial compartment was fully inspected. The chondral surface of the tibia showed grade I/II chondromalacia with some fissuring and the surface of the femur showed similar findings. The medial meniscus had previous resection where a large portion of the posterior horn was absent. No notable tear present. The notch was then inspected which showed a torn ACL and an intact PCL. There is the entire length of the ACL which was displaced laterally into 2 columns. These were impinging in the lateral compartment. I used a shaver to debride these down back to a stable base of the ACL. These fibers were not healthy and look to be chronic in nature. The leg was then brought into a figure of 4 position. The lateral compartment was fully inspected with the arthroscope and a probe. The chondral surface of the lateral femur showed no significant chondromalacia. The chondral surface of the lateral tibia showed no significant chondromalacia. The lateral meniscus had a central third complex tear at the posterior horn and a more radial type tear adjacent to the posterior root although not full-thickness where there were some peripheral fibers still attached.. After evaluation, the meniscus was debrided down to a stable base using a series of biters and arthroscopic janessa. It was probed afterwards to confirm that the tear had been removed and the meniscus was stable. The arthroscope was brought back into the suprapatellar pouch and the leg was in full extension. The knee was thoroughly irrigated with the arthroscopic fluid on high flow and pressure. Inflow was stopped and excess fluid was removed. The wounds were closed with 4-0 Nylon. They were dressed with Xeroform, 4x4 gauze, ABD pad, Kerlix and an SHARYN wrap. A cryo-cuff was applied. The patient tolerated the procedure well and was returned to the Same Day Surgery area in a stable condition suffering no known complication.
--- NOTE | 2024-05-20 13:11 | W.ANESPOSTOP ---
Postoperative Evaluation Date, Time and Location Date Performed: 05/20/24 Time Performed: 13:11 Patient Location: PACU Vital Signs Most Recent Imported Vital Signs: Most Recent Vital Signs Temp Pulse Resp BP Pulse Ox 36.4 C L 73 14 110/72 98 05/20/24 13:05 05/20/24 13:09 05/20/24 13:09 05/20/24 13:05/20/24 13:09 Assessment Mental Status: Arousable with meaningful communication Airway and Respiratory Function: Patent airway with normal (patient baseline) respiratory exam Cardiovascular Function: Hemodynamically Stable Hydration Status: Adequately Hydrated Nausea & Vomiting: No Nausea or Vomiting Pain: Pt. Denies Any Pain Peripheral Nerve Block: Patient did not receive a nerve block
== END 2024-05-20 15:33 | disposition home or self-care (01) ==
LOC: SUR 09:46
PROVIDERS: PCP Nurse Practitioner Family; Visit Provider Student in an Organized Health Care Education/Training Program
PROC: (CPT 29870; principal; 2024-05-20 12:00)
DX: S83.281A Other tear of lateral meniscus, current injury, right knee, initial encounter (principal); S83.511A Sprain of anterior cruciate ligament of right knee, initial encounter; E11.9 Type 2 diabetes mellitus without complications; I25.10 Atherosclerotic heart disease of native coronary artery without angina pectoris; I10 Essential (primary) hypertension; Z79.4 Long term (current) use of insulin; M94.261 Chondromalacia, right knee; X58.XXXA Exposure to other specified factors, initial encounter
CPT/HCPCS: 29881; J0665; J0690; J1100; J2001; J2371; J2405; J2704

== ENCOUNTER → 2024-06-01 15:15 | Outpatient (BNVA) | payer MEDICARE, OTHER, MEDICAID, SELFPAY | PROVIDERS: PCP Nurse Practitioner Family; Referring Provider Nurse Practitioner Family; Visit Provider Student in an Organized Health Care Education/Training Program | DX: Z47.89 Encounter for other orthopedic aftercare (principal); M25.561 Pain in right knee | CPT/HCPCS: 99024 ==

== ENCOUNTER 2024-08-14 01:17 | Outpatient (CLI) | payer MEDICARE, OTHER, MEDICAID, SELFPAY ==
--- OUTSIDE RECORDS SUMMARY | 2024-08-14 01:20 | XMS_ITS | Encounter Summary ---
Author Organization [facility] [place] [address] Care Team Providers Care Resource Teacher Name Role Phone Sravani Salas APRN Primary Care Provider [phone] Encounter Details Date Type Department Care Team (Latest Contact Info) Description 04/12/2023 1:45 PM EDT TH Visit (TeleHealth) [place] [address] Aurea Jensen ONCOLOGY NAVIGATOR [facility] [place] [address] Type 2 diabetes mellitus with hyperglycemia, with long-term current use of insulin Social History Tobacco Use Types Packs/Day Years Used Date Smoking Tobacco: Never Smokeless Tobacco: Former Chew Quit: 01/09/1995 Alcohol Use Standard Drinks/Week Comments No 0 (1 standard drink = 0.6 oz pur e alcohol) Sex and Gender Information Value Date Recorded Sex Assigned at Not on file Gender Identity Not on file Sexual Orientation Not on file documented as of this encounter Patient Instructions * Patient Instructions* Aurea Jensen APRN - 04/12/2023 1:45 PM EDT Recommendations: --Medications: Return to using the U-500 insulin three times daily, before each meal. 15 U before each meal, Threetimes daily. Levimir, decrease this to 25 U twice daily, before breakfast and after dinner. Continue with glimepiride 4 mg and metformin 500 mg twice daily. Stop using the Humalog when you resume using the U-500 insulin. --Monitoring: With CGM: check BGs fasting in am, before each meal, 1-2 hours after meals and at bedtime. - Or, With SMBG by Finger Sticks: check BG's daily before breakfast, before lunch or dinner, and 2 hours after supper. Target fasting blood sugars: 90-140 Pre-meal: 90-150 1-2 h post-meal: below 180 Target A1c: 7% for this patient. --Patient will please keep log of blood glucose and insulin used for review at next visit or bring CGM reader for download --Diet and exercise: low fat/controlled carb diet & exercise as tolerated to keep weight down and lower BG --Prevention: Instructed Isiah to call us if he starts to experience hypoglycemic event --F/U lab for: A1c, renal panel and microalbumin next visit. --RTC: Next visit in 3 months IN PERSON. (Quick draw lab before visit with us on the same day). documented in this encounter Progress Notes * Aurea Jensen APRN - 04/12/2023 1:45 PM EDT Images from the original note were not included. Isiah Medrano 1965 [id number] PCP: Sravani Salas APRN Date of Visit: 04/12/2023 Patient verbally consents to this telephone visit and understands that this visit may be billed, similar to a clinic office visit. I provided care to the patient today via telephone call, client unable to connect to VDO. The totaltime associated with this visit was 45 minutes. Isiah was not able to access the video so this was just a phone call. Reason for Visit: Follow-up for Type 2 diabetes, last seen [facility]. Conteh [facility] on 01/[facility]/23, new to me. Brief History: Isiah Medrano is a 58 y.o. male with PMH significant for Type 2 diabetes, c/b CAD, HLD, HTN, obesity and depression. He has h/o NSTEMI and thrombocytopenia noted in 2007. Patient Active Problem List Diagnosis Code Adjustment disorder with depressed mood F43.21 Hypertension I10 Gout M10.9 HLD (hyperlipidemia) E78.5 Ulnar neuropathy of right upper extremity G56.21 Pain of right upper extremity M79.601 Severe episode of recurrent major depressive disorder, without psychotic features F33.2 Diabetes mellitus type 2, insulin dependent E11.9, Z79.4 Obesity (BMI 30.0-34.9) E66.9 Iron deficiency anemia D50.9 Hypomagnesemia E83.42 CAD (coronary artery disease) I25.10 Chronic pain G89.29 Erectile dysfunction N52.9 Interim Hx: Patient presents today on Telephone for diabetes follow up assessment, consultation smooth. He says the DM educator at his PCP switched him back to regular Humalog, not taking the U-500 now, and says the regular Humalog doesn't work for him. This has been the case just for the past few days. He says he would like to have just our clinic manage his diabetes. He would like to return to usingthe U-500, as he feels it is more effective. He has the U-500 syringes and feels confident using them. He says he would adjust the amount of U-500 based on his BG before his insulin, would do this twice a day sometimes three times if his BG was >200. He was taking the U-500 after his meals. He denies any recent hypoglycemia and says in the past if he's had low BG, around 65, he knows how to manage it. He does not want this to be the reason that he can't take the U-500 insulin. Allergies Allergen Reactions Eptifibatide Other (See Comments) thrombocytopenia Amoxicillin Other (See Comments) Unknown Plan from previous visit note: dated 01/08/[address] Conteh Addendum 03/04/23 => see addendum below for an update info from local APRIL [employer]ARDS (Maya) who sent [employer] download during 01/29/23-02/11/23: Review of his CGM showed BG fluctuation with normal or high BG and some mild hypoglycemia (5% all mild and 0% severe), similar to patients who are using 70/30mix insulin while using U500 insulin low dose BID. Rec: - to taper levemir 30/40u bid to 30u BID to reduce mild hypoglycemia at night and noon - to use U500 vial with syringes (not both pen and syringe) for this 0-10u bid he has been using. For example, 10 units on the syringe = 50 units of insulin - ideally he needs basal-bolus levemir-Humalog but he does not want to count carb and use Humalog 3x/day and loves his U500 insulin BID p.r.n. A1c 8s% not too far off and expected with pts who are using BID regimen of older insulin types (either 70/30 mix or U500 bid). *Maya denton RD, CDE may try to discuss basal-bolus regimen and let us know if he is willing to switch or not. It'd be great if he can count carb using 1u:5g carb and CF 10-20 for correction >150. I'll CC to PCP and Alejandra (on-all fellow) and hope we can pass this into to pt & Maya too. Thanks! RODRIGO CONTEH MD To stop Humalog kwik pen 40 units for meals but ok to use it only if very high BG >250 (1u:10 BG) before meals or at bedtime (To save Levemir vial to use if he is not eating or NPO for CT scans, etc or for any reason for basal insulin) To cont glimiperide 4 mg bid and metforminER 500 mg bid (low dose due to mild kidney impairment since last March with eGFR 45, ok to use metformin half-dose, and stop it only if eGFR <30). To continue all other medications, OTC-B12 1,000 mcg po qd for neuropathy and also OTC-vitD 2,000 iu daily. 2. Monitoring: to check FSBG before each meal and at bedtime => to continue using Libre2 further Target BG 90-150 while fasting and 90-180 pre-meal during daytime Target A1c in 7% range for this patient (7-8% as his target). I am recommending this patient continue using Libre2 CGM for personal use. Pt has BCBS for insurance: Patient is on Multiple Daily Injections: Diagnosis: Diabetes Mellitus Patient performs SMBG at least 4x per day Patient administers 3 or more insulin injections per day Patient frequently adjusts meal time insulin doses Patient needs a therapeutic CGM I plan to see this pt every 6 months following this initial prescription of the CGM to assess adherence to their CGM regimen and diabetes treatment plan. 3. Diet and exercise: low fat/controlled carb diet & exercise as tolerated to keep weight down or at least stable. Patient will keep log of blood glucose and insulin used for review at next visit. 4. Lab: To check lab locally at [facility] lab in [place] soon as ordered (it was higher A1c 9.6% on 05/22/21=>then down 8.9% in Oct 2021) Orders Placed This Encounter Procedures Hemoglobin A1c Basic Metabolic Panel (non-fasting) Vitamin D, 25-Hydroxy 5. RTC: Next visit in 3 months by VDO. Will check HbA1c, BMP at local lab at the time. Diabetes History: Most recent A1C: Last A1c on record from [place] is 8.8% on 01/09/23 Current Diabetes Medications: Humalog 50 U after dinner, 50 U this AM before breakfast today Levemir 30 U BID Metformin 500 XR mg BID Glimepiride 4 mg daily Glucose Monitoring: Tasha 2 Number tests prescribed per day: Fasting in AM, before meals, 1-2 hours after meals and at bedtime. Justification for testing > 3x a day: to prevent severe hyperglycemia, widely fluctuating BS, overnight hypoglycemia, and for Correction Dosing as needed CGM Interpretation: for the 14-day period from 03/30-04/12/23 Duration of need: lifetime Hypoglycemia: denies Awareness: BG testing > than 5 if having hypoglycemia occurrances Frequency of episodes needing assistance none Medical Alert bracelet: Hyperglycemia: yes per his reports and per last A1c History of DKA: unknown Diabetes Complications Review: Eyes: No retinopathy, no history of laser therapy and/or injections Kidneys: + history of microalbuminuria, proteinuria, + decreased kidney function with CKD III (eGFR50 noted from [place] on 01/09/23), dialysis or kidney transplant Feet: Normal shape, no history of foot ulcers, + burning/numbness/tingling, no previous decreased sensation to monofilament testing, no prior amputations Autonomic: No history of gastroparesis, problems emptying bladder, inability to detect hypoglycemia, or tachycardia Cardiac: + history of DE, CAD, cardiac stents, cardiac bypass surgery,CHF, PVD, CVA Diabetes Prevention: Kidney protection: On SHARYN-I or ARB: yes Heart protection: On low dose ASA: higher dose, 325 mg PO QD On Statin: yes Current Medications: Medications 04/13/23 0853 Medication Sig Taking? metFORMIN XR (Glucophage XR) 500 mg ER 24 hr tablet Take 1 tablet by mouth 2 times daily. Yes Insulin Syringe-Needle U-100 0.5 mL 30 gauge x 5/16 Syringe 1 each by [facility]Non-Drug; Combo Route)route 2 times daily. Yes humaLOG KwikPen 100 unit/mL Insulin Pen INJECT 10 TO 49 UNITS SUBCUTANEOUSLY THREE TIMES DAILY WITHMEALS Yes FreeStyle Tasha 2 [place] Misc 1 each by Other route daily. Indications: diabetes mellitus Yes FreeStyle Tasha 2 Sensor Kit 1 each by Other route daily. Indications: diabetes mellitus Yes insulin detemir U-100 (Levemir U-100 Insulin) Solution 35 units qAM and 10-15 units qPM Patient taking differently: 30 Units 2 times daily. Yes metoprolol succinate XL (Toprol-XL) 25 mg Tablet Sustained Release 24 hr daily. Yes imipramine (Tofranil) 50 mg Tablet nightly. Yes ARIPiprazole (ABILIFY) 10 mg Tablet 10 mg daily. Yes DULoxetine DR (CYMBALTA) 60 mg Capsule, Delayed Release(E.C.) daily. Yes ferrous sulfate 325 mg (65 mg iron) Tablet daily. Yes nitroGLYcerin (NITROSTAT) 0.4 mg Tablet, Sublingual as needed for Chest pain. Yes traZODone (DESYREL) 100 mg Tablet nightly. Yes insulin needles, disposable, (BD ULTRA-FINE MINI PEN NEEDLE) 31 gauge x 3/16 Needle by Other route. 1 box = 100 insulin PEN needles. Yes CHOLECALCIFEROL, VITAMIN D3, (VITAMIN D3 ORAL) Take 1 tablet by mouth nightly. Yes isosorbide mononitrate (IMDUR) 30 mg Tablet Sustained Release 24 hr Take 60 mg by mouth daily. Yes pen needle, diabetic (NOVOFINE PLUS) 32 gauge x 1/6 Needle 1 each by [facility].(Non- Drug; Combo Route) route 4 times daily as needed. Yes allopurinol (ZYLOPRIM) 300 mg Tablet Take 300 mg by mouth nightly. Yes aspirin 325 mg Tablet Take 325 mg by mouth daily. Ordered for Heart attack reasons Yes gabapentin (NEURONTIN) 300 mg Capsule Take 900 mg by mouth 4 times daily. Yes lisinopril (PRINIVIL;ZESTRIL) 20 mg Tablet Take 40 mg by mouth nightly. Yes magnesium oxide (MAG-OX) 400 mg Tablet Take 400 mg by mouth nightly. Yes multivitamin (THERAGRAN) Tablet Take 1 tablet by mouth daily. Yes atorvastatin (LIPITOR) 40 mg Tablet Take 40 mg by mouth nightly. Yes glimepiride (AMARYL) 4 mg Tablet Take 1 tablet by mouth 2 times daily. Yes Blood Sugar Diagnostic (ONE TOUCH ULTRA TEST) test strip 1 each by Other route 4 times daily. Use as instructed Yes Insulin Syringe-Needle U-100 (BD INSULIN SYRINGE ULT-FINE II) 1 mL 31 x 5/16 Syrg 1 each by Misc.(Non-Drug; Combo Route) route 2 times daily (before meals). Yes insulin regular CONCENTRATE U-500 (HumuLIN R U-500) 500 unit/mL Solution 15 U three times a day after your meals (3 units justyna on the syringe 3x/day) Magtab 84 mg Tablet Sustained Release Indications: 3 times a week sertraline (ZOLOFT) 100 mg Tablet daily. Ibuprofen 200 mg Capsule Take 400 mg by mouth 3 times daily as needed (pain). Insulin Syringe-Needle U-100 0.5 mL 31 gauge x 5/16 Syringe 1 each by Misc.(Non- Drug; Combo Route) route 2 times daily. NALTREXONE HCL (NALTREXONE ORAL) Take 1 mg by mouth 4 times daily as needed (pain). Indications: pttakes 4.5 mg daily Last urine protein measurement: Lab Results Component Value Date MICROALBUR 5.2 02/24/2013 Last Kidney function: Lab Results Component Value Date CREATININE 0.97 06/15/2019 Last lipid panel: Lipid Panel Lab Results Component Value Date CHLPL 93 06/15/2019 HDL 34 06/15/2019 CHOLHDL 2.7 06/15/2019 TRIG 154 06/15/2019 LDLCHOL 28 06/15/2019 LDLDIRECT 63 06/16/2018 Dietary Hx: Has met with RD? Carb counts Pays attention Special Diet no 3 meals/day usually * Breakfast: * Lunch * Dinner: * Drinks: * snacks: Exercises: limited REVIEW OF SYSTEMS: All 12 systems reviewed and negative except as noted per HPI. (+) for (-) for Constitutional: No recent weight changes, no fevers, chills, fatigue, denies sleep disturbances Endocrine: No increased thirst or urination, heat/cold intolerance Eyes: No recent vision changes ENT: No dysphagia, dental issues Cardiovascular: No chest pain, palpitations Respiratory: No wheezing , shortness of breath GI: No nausea, vomiting, diarrhea, constipation : No frequent urinary tract infections, dysuria, hematuria Neurological: No weakness or numbness, dizziness Skin/Feet: No current diabetic foot ulcers/open area, no darkening of skin or skin changes Physical Exam: deferred d/t only visit There were no vitals taken for this visit. Psychological: alert/oriented to person, place, time; normal affect; memory fair; normal judgement/insight Labs: From [facility] 01/09/23: Assessment: Isiah Medrano is a 58 y.o. male with PMH significant for Type 2 diabetes, c/b CAD, HLD, HTN, obesity and depression. He has h/o NSTEMI and thrombocytopenia noted in 2007. Patient presents today on Telephone for diabetes follow up assessment, consultation and recommendations. He says the DM educator at his PCP switched him back to regular Humalog, not taking the U-500 now, and says the regular Humalog doesn't work for him. This has been the case just for the past few days. He says he would like to have just our clinic manage his diabetes. He would like to return to usingthe U-500, as he feels it is more effective. He has the U-500 syringes and feels confident using them. He says he would adjust the amount of U-500 based on his BG before his insulin, would do this twice a day sometimes three times if his BG was >200. He was taking the U-500 after his meals. He denies any recent hypoglycemia and says in the past if he's had low BG, around 65, he knows how to manage it. He does not want this to be the reason that he can't take the U-500 insulin. Diabetes is currently suboptimally controlled, with last A1C of 8.8% assessed @ [facility] on 01/09/23, and per Tasha CGM interpretation. He also reports poor glycemic control and asks to re-start U-500 insulin as he feels it works better for him. He is taking hte basal Levemir 30 U BID so we will add a small amount of the U-500 to start. He denies any hypoglycemic events and says he is not worr ied about this and knows what to do in case of any. Review of AHA/ACC/ADA and Endocrine Society clinical practice guidelines, recommend that a moderateintensity statin should be started at age 40 in those with diabetes regardless of ASCVD risk. Goal LDL should be < 70 in general and < 55 in those with established cardiovascular disease or multiple risk factors. To mitigate ASCVD risk he is taking atorvastatin 40 mg PO QD. Recommendations: --Medications: Return to using the U-500 insulin three times daily, before each meal. 15 U before each meal, Threetimes daily. Levimir, decrease this to 25 U twice daily, before breakfast and after dinner. Continue with glimepiride 4 mg and metformin 500 mg twice daily. Stop using the Humalog when you resume using the U-500 insulin. --Monitoring: With CGM: check BGs fasting in am, before each meal, 1-2 hours after meals and at bedtime. - Or, With SMBG by Finger Sticks: check BG's daily before breakfast, before lunch or dinner, and 2 hours after supper. Target fasting blood sugars: 90-140 Pre-meal: 90-150 1-2 h post-meal: below 180 Target A1c: 7% for this patient. --Patient will please keep log of blood glucose and insulin used for review at next visit or bring CGM reader for download --Diet and exercise: low fat/controlled carb diet & exercise as tolerated to keep weight down and lower BG --Prevention: Instructed Isiah to call us if he starts to experience hypoglycemic event --F/U lab for: A1c, renal panel and microalbumin next visit. --RTC: Next visit in 3 months IN PERSON. (Quick draw lab before visit with us on the same day). 45 minutes were spent reviewing the medical record and available tests, [facility] counseling the patient on medications, recommending changes to insulin dosing, reviewing management of hypoglycemia, and in prescription management. An additional 15 minutes was spent reviewing and interpreting CGM data with client. I have reviewed the plan outlined above with the patient and patient has verbalized understanding. documented in this encounter Plan of Treatment Upcoming Encounters Date Type Department Care Team (Late st Contact Info) Description 08/18/2024 10:30 AM EST Office [place] [address] Rodrigo Conteh MD [facility] [place] [address] documented as of this encounter Visit Diagnoses Diagnosis Type 2 diabetes mellitus with hyperglycemia, with long-term current use of insulin Type 2 diabetes mellitus with hyperglycemia, with long-term current use of insulin Vitamin D insufficiency Unspecified vitamin D deficiency Dyslipidemia Other and unspecified hyperlipidemia documented in this encounter Care Teams Resource Teacher Relationship Specialty Start Date End Date Sravani Salas APRN [address] [place] [address] PCP - General Family Medicine 01/15/17 documented as of this encounter
--- OUTSIDE RECORDS SUMMARY | 2024-08-14 01:20 | XMS_ITS | Encounter Summary ---
[place] [address] Care Team Providers Care General Internist And Physician Leader Name Role Phone Sravani Salas APRN Primary Care Provider [phone] Encounter Details Date Type Department Care Team (Late st Contact Info) Description 07/08/2023 Telephone [place] [phone] Angela Villalobos RN Social History Tobacco Use Types Packs/Day Years Used Date Smoking Tobacco: Never Smokeless Tobacco: Former Chew Quit: 01/09/1995 Alcohol Use Standard Drinks/Week Comments No 0 (1 standard drink = 0.6 oz pur e alcohol) Sex and Gender Information Value Date Recorded Sex Assigned at Not on file Gender Identity Not on file Sexual Orientation Not on file documented as of this encounter Miscellaneous Notes * Telephone Encounter - Angela Villalobos RN - 07/08/2023 4:18 PM EST Called nurse Niki back and went over pts current mediation list. * Telephone Encounter - Angela Villalobos RN - 07/08/2023 4:11 PM EST Copied from CRM #[id number]. Topic: Specialty Dept CRMs - Medication Issues >> Jul 08, 2023 1:47 PM Emerson Lu wrote: Medication Issues Specialist Dr Roberts Relationship (if other than patient-full name): Niki nurse at Dr Salas's office Reason for call: Medication Issue (if symptom based used Triage Subtopic) Message/information for the nurse: Patient is taking two different types of humalog, and PCP is questing the medications he is currently on. Please call Niki at [phone] documented in this encounter Plan of Treatment Upcoming Encounters Date Type Department Care Team (Late st Contact Info) Description 08/18/2024 10:30 AM EST Office [place] [address] Rodrigo Conteh MD [facility] [place] [address] documented as of this encounter Visit Diagnoses Not on filedocumented in this encounter Care Teams General Internist And Physician Leader Relationship Specialty Start Date End Date Sravani Salas APRN [address] [place] [address] PCP - General Family Medicine 01/15/17 documented as of this encounter
--- OUTSIDE RECORDS SUMMARY | 2024-08-14 01:20 | XMS_ITS | Encounter Summary ---
Author Organization [facility] [place] [address] Care Team Providers Care Lock Plater Name Role Phone Sravani Salas APRN Primary Care Provider [phone] Reason for Visit * Reason Comments Medication Refill Encounter Details Date Type Department Care Team (Late st Contact Info) Description 03/31/2024 Ref[place] [phone] Aurea Jensen APRN [facility] [place] [address] Social History Tobacco Use Types Packs/Day Years Used Date Smoking Tobacco: Never Smokeless Tobacco: Former Chew Quit: 01/09/1995 Alcohol Use Standard Drinks/Week Comments No 0 (1 standard drink = 0.6 oz pur e alcohol) Sex and Gender Information Value Date Recorded Sex Assigned at Not on file Gender Identity Not on file Sexual Orientation Not on file documented as of this encounter Plan of Treatment Upcoming Encounters Date Type Department Care Team (Late st Contact Info) Description 08/18/2024 10:30 AM EST Office [place] [phone] Rodrigo Conteh MD [facility] [place] [address] documented as of this encounter Visit Diagnoses Not on filedocumented in this encounter Care Teams Lock Plater Relationship Specialty Start Date End Date Sravani Salas APRN [address] [place] [address] PCP - General Family Medicine 01/15/17 documented as of this encounter
--- OUTSIDE RECORDS SUMMARY | 2024-08-14 01:20 | XMS_ITS | Encounter Summary ---
Author Organization [facility] [address] Care Team Providers Care Optical Laboratory Manager Name Role Phone Sravani Salas APRN Primary Care Provider [phone] Reason for Visit * Reason Comments Medication Refill Encounter Details Date Type Department Care Team (Late st Contact Info) Description 02/18/2024 Ref[place] [phone] Rodrigo Conteh MD [facility] [place] [address] Social History Tobacco Use Types Packs/Day Years [...] 10:30 AM EST Office [place] [phone] Rodrigo Conteh MD [facility] [place] [address] documented as of this encounter Visit Diagnoses Not on filedocumented in this encounter Care Teams Optical Laboratory Manager Relationship Specialty Start Date End Date Sravani Salas APRN [address] [place] [address] PCP - General Family Medicine 01/15/17 documented as of this encounter
--- OUTSIDE RECORDS SUMMARY | 2024-08-14 01:20 | XMS_ITS | Encounter Summary ---
Author Organization [facility] Address [address] [place] [address] Care Team Providers Care Stress Analyst Name Role Phone Unavailable Primary Care Provider Unavailabl e Encounter Details Date Type Department Care Team (Late st Contact Info) Description 04/03/2024 Lab Requisition [facility] Pathology & Laboratory Medicine - [facility] [address], [place] [id number] Outr Resulting Lab, Provider Social History Tobacco Use Types Packs/Day Years Used Date Smoking Tobacco: Never Assessed Sex and Gender Information Value Date Recorded Sex Assigned at Not on file Legal Sex Male 18:52 EST Gender Identity Not on file Sexual Orientation Not on file documented as of this encounter Plan of Treatment Not on file documented as of this encounter Procedures Procedure Name Priority Date/Time Associated Diagnosis Comments PSA TOTAL, DIAGNOSTIC Routine 04/03/2024 6:00 EDT documented in this encounter Results * PSA TOTAL, DIAGNOSTIC (04/03/2024 6:00 EDT) PSA 0.4 <=3.5 ng/mL 04/03/2024 22:33 EDT [facility] Blood VENOUS BLOOD / Unknown 04/03/2024 6:00 EDT 04/03/2024 21:44 EDT Narrative [facility] - 04/03/2024 22:33 EDT NOTE: Serum PSA concentration should not be interpreted as absolute evidence for the presence or absence of malignant disease. Assayed on Siemens ADVIA ViewRayaur XPT using chemiluminescent technology.??Values obtained by using different assay methods cannot be used interchangeably. us Provider Outr Resulting Lab CHEMISTRY & BLOOD GA S ORDERABLES Final Result [facility] [address] [place] [address] documented in this encounter Visit Diagnoses Not on filedocumented in this encounter
--- OUTSIDE RECORDS SUMMARY | 2024-08-14 01:20 | XMS_ITS | Encounter Summary ---
[facility] [place] [address] Care Team Providers Care Monotyper Name Role Phone Sravani Salas APRN Primary Care Provider [phone] Encounter Details Date Type Department Care Team (Late st Contact Info) Description 08/02/2023 Telephone [place] [phone] Carolyn Cervantes Social History Tobacco Use Types Packs/Day Years [...] 10:30 AM EST Office [place] [phone] Rodrigo Conteh MD [facility] [place] [address] documented as of this encounter Visit Diagnoses Not on filedocumented in this encounter Care Teams Monotyper Relationship Specialty Start Date End Date Sravani Salas APRN [address] [place] [address] PCP - General Family Medicine 01/15/17 documented as of this encounter
--- OUTSIDE RECORDS SUMMARY | 2024-08-14 01:20 | XMS_ITS | Encounter Summary ---
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 [facility] [place] [address] Social History Tobacco Use Types Packs/Day Years [...] encounter Miscellaneous Notes * Telephone Encounter - Valerie Jacob, TUL[place] - 07/08/2024 3:43 PM EST Prescription Renewal Request Name: Isiah Medrano : 1965 Prescription(s) Requested: Requested Prescriptions Pending Prescriptions Disp Refills insulin regular CONCENTRATE U-500 (humuLIN R U-500 Concentrated) 500 unit/mL Solution [Pharmacy Med Name: HUMULIN R 500 UNITS/ML VIAL] 40 mL 0 Sig: Inject 15 units three times daily after your meals (3 unit justyna on the syringe) Date of Encounter last in This Dept (If need an appointment send to secretaries to schedule): 04/12/2023 telehealth with Aurea Jensen Cancelled appointments: 08/09/2023 with Aurea Jensen Next Encounter in This Dept: Visit date not found Date of Last Refill (for each medication): insulin regular CONCENTRATE U-500 (humuLIN R U-500 Concentrated) 500 unit/mL Solution Authorized By: Aurea Jensen APRN Inject 15 units three times daily after your meals (3 unit justyna on the syringe) Dispense: 40 mL, Refills: 0 ordered 04/06/2024 Note from 04/12/2023 visit: Return in about 3 months (around 07/13/2023) for In Person. Recommendations: --Medications: 1. Return to using the U-500 insulin three times daily, before each meal. 15 U before each meal, Three times daily. 2. Levimir, decrease this to 25 U twice daily, before breakfast and after dinner. 3. Continue with glimepiride 4 mg and metformin 500 mg twice daily. 4. Stop using the Humalog when you resume using the U-500 insulin. Status of request: Pended Allergies Allergen Reactions Eptifibatide Other (See Comments) thrombocytopenia Amoxicillin Other (See Comments) Unknown TULIO MURRIETA 07/08/24 3:43 PM documented in this encounter Plan of Treatment Upcoming Encounters Date Type Department Care Team (Late st Contact Info) Description 08/18/2024 10:30 AM EST Office [place] [address] Rodrigo Conteh MD [facility] [place] [address] documented as of this encounter Visit Diagnoses Not on filedocumented in this encounter Care Teams Director Emergency Department Relationship Specialty Start Date End Date Sravani Salas APRN [address] [place] [address] PCP - General Family Medicine 01/15/17 documented as of this encounter
--- OUTSIDE RECORDS SUMMARY | 2024-08-14 01:20 | XMS_ITS | Continuity of Care Document ---
Author Organization [facility] Address [address] [place] [address] Assessment Encounter Date Assessment Date Assessment LastModified by Organization Details LastModified Time 05/26/2024 05/26/2024 The total time devoted to today's encounter, including both the xkgy-ec-maso time with the patient and/or family/caregi melissa and kkq-nuui-cj-f awa time I personally spent is 45 minutes. Flu vaccine: provide today Comirnaty: provide today Td: current - due 2031 PCV20: completed. PPSV23 2000. Shingrix: completed RSV: n/a CRC: current- due next 2029 AAA Screening: n/a Follow-up in 1 Months. Call or RTO sooner if needs arise. [email or web address] Not available 05/26/2024 10:33:55 Plan of Treatment Reminders Order Date Submit Date Provider Last Modified By Organization Details Last Modified Time Details Appointments None recorded. Lab None recorded. 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 Surgeries None recorded. Imaging None recorded. Medication Orders colchicine 0.6 mg tablet [email or web address], [address] [facility], [address], [place], [address], 10:55:49 Jardiance 10 mg tablet [email or web address] [facility], [address] [place] [address], [address], 10:55:49 Patient TargetsNo targets recorded. Patient Instructions Encounter Date Encounter Id Patient Instructions Last Modified By Organization Details Last Modified Time 05/26/2024 [id number] Dear Isiah, Thank you for visiting us on May 26, 2024. We appreciate your commitment to improving your health and managing your conditions effectively. Here is a summary of the hayward instructions from today's appointment: - Medication Adjustments: - Stop taking colchicine daily; use only during gout flare-ups. - Reduce imipramine to half a tablet nightly for two weeks; discontinue if no increase in urinary frequency. - Reduce trazodone to half a tablet nightly for two weeks; discontinue if sleep remains satisfactory. - Reduce sertraline to 1.5 tablets daily for one month, then to one tablet if well-tolerated. - Continue current insulin dosages; monitor blood sugar closely. - Start Jardiance for blood sugar management; monitor for signs of low blood sugar. - Follow-Up Appointments: - Return in three months for a routine check-up. - Return in 1 month for wound check for your foot. - Contact the pain clinic regarding your ulnar nerve appointment. - Schedule appointments with a construction project coordinator and combat control as recommended. - Schedule an appointment with the truck railroad and bus motor mechanic as discussed - Lifestyle Recommendations: - Monitor diet to manage gout; consider incorporating shell juice to reduce uric acid levels. - Be mindful of kidney function and adjust medications as necessary. - Additional Care: - Apply Mepilex dressing to the foot ulcer every three days; follow up in one month. - Obtain flu and COVID vaccines as administered today. Please ensure to follow these instructions closely and contact our office if you have any questions or concerns regarding your treatment plan. 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 Accoun t #: [id number] Status : REG CLI Primar y Care Provid er: Janet Goins Date of Exam: 02/23 Sex: M Admiss ion Date: : 1964 Age: 59 Exam(s ) MR LOWER JOINT RT WO EXAM: MR LOWER JOINT RT WO CLINIC AL HISTOR Y: PAIN,i nterna l derang ement rt knee, m23.91 . TECHNI QUE: Multip lanar multis equenc e MRI was perfor med. COMPAR TORIN: MR MRI R LOWER JOINT WO CONT from 2010 CR XR KNEE RT 3V AP,LAT ,JARED from 2023 FINDIN GS: The examin ation is limite d due to patien t motion artifa ct. BONES: Mild marrow edema seen in the proxim al tibia and the medial femora l condyl e. No fractu re is apprec iated. JOINTS : There is thinni ng of the articu lar cartil age overly ing the medial patell ar facet. There is also loss of the articu lar cartil age overly ing the medial femora l condyl e with mild subcho ndral edema. There is a small joint effusi on. TENDON S: Extens or mechan ism: Unrema rkable . Medial retina culum: Unrema rkable . Latera l retina culum: Unrema rkable . Poplit eus: Unrema rkable . MUSCLE S: Unrema rkable . MENISC I: There is decrea sed size of the body and phlebotomist associate ior horn of the medial menisc us. There is abnorm al signal presen t. The findin gs are suspic ious for tear. Please correl ate with any prior menisc al surger y. The latera l menisc us is unrema rkable . SOFT TISSUE S: There is mild edema seen in the soft tissue s partic ularly phlebotomist associate iorly and medial ly. Note is made of a poplit eal cyst measur ing 3.8 x 2.5 x 4.6 cm. LIGAME NTS: Anteri or Crucia te: The anteri or crucia te ligame nt is absent consis tent with a tear. Railroad Car Repairman ior Crucia te: Unrema rkable . Medial Collat eral:U nremar kable. Latera l Collat eral: Unrema rkable . OTHER: IMPRES STEPH: 1. Please correl ate with any prior patien t's surgic al histor y. 2. Findin gs suspic ious for tear of the body and phlebotomist associate ior horn of the medial menisc us. 3. Torn anteri or crucia te ligame nt. 4. Chondr omalac ia. 5. Poplit eal cyst. 6. Mild contus ions involv ing the proxim al tibia and medial femora l condyl e. DATA REPOSI TORY: Ordere d By: Erick Dee M.D. CC: ------ ------ ------ ------ ------ ------ ------ ------ ------ ------ ------ ------ - Dictat ed By: Brock Cambpell M.D. [id number] 140 Transc ribed By: Brock Campbell 140 This is privil eged, confid ential inform ation intend ed only for the provid er named. Any use or distri bution by any person other than this provid er is strict ly prohib ited. If you receiv e this report in error, please notify us immedi ately at and return the origin al report to us at the addres s above. Thank- you. [facility] [address], [place], [address] 05/08/2024 19:28:52 05/18/20 24 05/11/2020 imagi ng/di cateos tic resul t No observ ation record ed. Not Available 05/18 19:20:45 05/18/20 24 09/20/2022 XR, knee No observ ation record ed. Not Available 05/18 19:21:04 05/18/20 24 04/07/2019 US, renal No observ ation record ed. Not Available 05/18 19:21:28 05/18/20 24 03/17/2019 MRI, thora cic spine No observ ation record ed. Not Available 05/18 19:21:41 06/03/20 24 06/03/2024 XR, foot, 3 or more view No observ ation record ed. [email or web address] [place], [address], 06/04/2024 05:21:12 Result Notes None recorded. Problems Name Problem SNOMED Code Status Onset Date Resolution Date Notes Provider Name and Address Organization Details Recorded Time Hyperlip idemia 06800108 Active 200109/10/19 18 - Comments only - Sravani Zayas LEAD ELECTRICAL ENGINEER - stable, continue medicati on. Due for routine BW in December 2017. Problem Code: E78.5; Problem Code Type: ICD-10; SRAVANI ZAYAS APRN [address], [place], [address], [facility] 3 05:25:57 Gout 42346410 Active 200209/10/19 18 - Comments only - Sravani Zayas LEAD ELECTRICAL ENGINEER - stable, continue allopuri nol at current dosage. Check uric acid level with next blood draw. Problem Code: M10.9; Problem Code Type: ICD-10; SRAVANI ZAYAS APRN [address], [place], [address], [facility] 3 05:25:58 Major depressi on, single episode 28343039 Active 200208/10/20 19 - Comments only - Yana Gallardo MD - Isiah Medrano comes in today for follow-u p from his recent hospital ization in the [facility]. He states that he found that particul ar hospital ization very helpful he feels as if he is more grounded and has a lot more coping skills. He is very sad about what happened in his life. But he is currentl y not feeling suicidal . He understa nds that he needs to be more proactiv e about his diabetes and his health. Problem Code: F32.9; Problem Code Type: ICD-10; [address], [place], [address], [facility] 3 05:25:57 Atherosc lerosis of coronary artery without angina pectoris 9699699565 96294 Active 200705/11/20 20 - Comments only - Linda Galeano MD - This has been stable for years, baseline EKG today Problem Code: I25.10; Problem Code Type: ICD-10; [address], [place], [address], [facility] 3 05:25:57 Type 2 diabetes mellitus without complica tion 154737760 Active 200105/11/20 20 - Comments only - Linda Galeano MD - Has been controll ed, check A1c today, hold am oral meds and short acting insulin, take 1/2 long acting insulin morning of surgery Problem Code: E11.9; Problem Code Type: ICD-10; [address], [place], [address], [facility] 3 05:25:57 Chest pain 04328297 Completed 201407/12/2015 04/11/20 15 - Comments only - Sravani Zayas APRN - Differgopi tials include angina, atypical ,? Muscular , respirat ory origin. Reassuri ng nuclear stress test. Blood pressure is stable. Continue current medicati on regimen. Refer to cardiolo gy. Consider starting Imdur in near future. Problem Code: R07.9; Problem Code Type: ICD-10; Not Available [facility] 3 04:35:38 Essentia l hyperten steph 33770133 Active 201405/11/20 20 - Comments only - Linda Galeano MD - Controll ed, no change in medicati on Problem Code: I10; Problem Code Type: ICD-10; SRAVANI ZAYAS APRN [address], [place], [address], [facility] 3 05:25:57 Angina pectoris 499588206 Active 201509/10/19 18 - Comments only - Sravani Zayas APRN - continue s to struggle with. Discusse d increasi ng imdur, after discussi on will hold on doing this until after he sees his cardiolo gist. Appt should be next month. Problem Code: I20.9; Problem Code Type: ICD-10; SRAVANI ZAYAS APRN [address], [place], [address], [facility] 3 05:25:57 Traumati c or non-trau matic injury 441779652 Completed 201702/18/2018 Problem Code: T14.90; Problem Code Type: ICD-10; Not Available [facility] 3 04:35:38 Phlebiti s 73047278 Active 201701/10/20 18 - Comments only - Michelle Giles APRN, RN, L.AC - Continue with aspirin 325mg QD, reduce IBU to 400mg TID. Discusse d the option of anticoag ulation medicati on like coumadin or Eliquis. He declines at this time, he would rather continue with the current plan of care and revisit other pharm interven tions if symptoms fail to improve or worsen. Discusse d the importan ce of good glycemic control as it relates to hypercoa guable states, he has an sppointm ent with endorcri ne this month to discuss DM manageme nt further, labs today in anticipa tion of that appointm ent include BMP, A1c, lipids, Vit D and JOSE. Continue with compress ion stocking during the day and wam compress es to the affected area for 20 min 3x day as needed. Return for new or worsenin g symptoms . Problem Code: I80.9; Problem Code Type: ICD-10; SRAVANI ZAYAS APRN [address], [place], [address], [facility] 3 05:25:57 Paresthe ruben 15180307 Active 201701/10/20 18 - Comments only - Michelle Giles APRN RN, L.AC - Continue to monitor, declined referral for left sided paresths ia at this time but will consider if conditio n worsens. Problem Code: R20.2; Problem Code Type: ICD-10; [address], [facility] [address], [facility] 3 05:25:58 Neuropat hy due to type 2 diabetes mellitus 9333184660 88356 Active 2017 Problem Code: E11.40; Problem Code Type: ICD-10; [address], [facility] [address], [facility] 3 05:25:57 Hernia of anterior abdomina l wall 015162388 Active 2017 Problem Code: K43.9; Problem Code Type: ICD-10; [address], [facility] [address], [facility] 3 05:25:57 Spasm 87409810 Active 2018 Problem Code: R25.2; Problem Code Type: ICD-10; [address], [facility] [address], [facility] 3 05:25:57 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 2018 Problem Code: N28.1; Problem Code Type: ICD-Zackary; [address], [facility] [address], [facility] 3 05:25:57 Suicidal thoughts 7995574 Active 2018 Problem Code: R45.851; Problem Code Type: ICD-10; [address], [facility] [address], [facility] 3 05:25:58 Adjustme nt disorder with depresse d mood 65031361 Active 201805/11/20 20 - Improved - Linda Galeano MD - But still present, continue with counseli ng, consider weaning off Abilify within the next few months Problem Code: F43.21; Problem Code Type: ICD-10; SRAVANI ZAYAS APRN [address], [facility] [address], [facility] 3 05:25:57 Hypomagn esemia 932680792 Active 201905/11/20 20 - Comments only - Linda Galeano MD - Recheck today as he is going into surgery Problem Code: E83.42; Problem Code Type: ICD-10; SRAVANI ZAYAS APRN [address], [facility] [address], [facility] 3 05:25:57 Skin nodule 74337743 Active 2019 SRAVANI ZAYAS APRN [address], [facility] [address], [facility] 3 05:25:58 History of risk factor for suicide 1546837413 24039 Active 2019 SRAVANI ZAYAS APRN [address], [facility] [address], [facility] 3 05:25:57 Family disrupti on due to parent-c hild estrange ment 7195822320 15371 Active 2019 SRAVANI ZAYAS APRN [address], [facility] [address], [facility] 3 05:25:57 Family disrupti on with separati on 5374772 Active 2019 SRAVANI ZAYAS APRN [address], [facility] [address], [facility] 3 05:25:58 Chronic kidney disease 257242052 Active 2020 Problem Code: N18.9; Problem Code Type: ICD-10; [address], [facility] [address], [facility] 3 05:25:58 Retinopa thy due to type 2 diabetes mellitus 799309708 Active 2020 Problem Code: E11.319; Problem Code Type: ICD-10; [address], [address] 3 05:25:57 Erectile dysfunct ion 305633047 Active 2021 Problem Code: F52.21; Problem Code Type: ICD-10; [address], [place] [address], [facility] 3 05:25:58 Pain of left knee joint 9574566066 53802 Active 2022 Problem Code: M25.562; Problem Code Type: ICD-10; [address], [facility] [address], [facility] 3 05:25:57 Vitamin D deficien cy 61392765 Active 2022 Problem Code: E55.9; Problem Code Type: ICD-10; [address], [facility] [address], [facility] 3 05:25:57 Iron deficien cy 54958347 Active 2022 Problem Code: E61.1; Problem Code Type: ICD-10; [address], [facility] [address], [facility] 3 05:25:57 Iron deficien cy anemia 95788738 Completed 201904/16/2023 Problem Code: D50.9; Problem Code Type: ICD-10; Not Available [facility] 3 04:35:42 Lesion of right ulnar nerve 9837286244 64669 Completed 201401/27/2015 Problem Code: G56.21; Problem Code Type: ICD-10; Not Available [facility] 3 04:35:42 Tremor 93268994 Completed 202001/15/2022 Problem Code: R25.1; Problem Code Type: ICD-10; Not Available [facility] 3 04:35:42 Chest pain 23006098 Completed 201809/15/2020 Problem Code: R07.89; Problem Code Type: ICD-10; Not Available [facility] 3 04:35:42 Acute sinusiti s 20364647 Completed 201509/22/2016 Problem Code: J01.90; Problem Code Type: ICD-10; Not Available [facility] 3 04:35:43 Pneumoni a 336533818 Completed 201809/21/2019 Problem Code: J18.9; Problem Code Type: ICD-10; Not Available [facility] 3 04:35:43 Diarrhea 30090714 Completed 201909/15/2020 Problem Code: R19.7; Problem Code Type: ICD-10; Not Available [facility] 3 04:35:43 Depressi ve disorder 29681774 Completed 200205/29/2023 04/11/20 15 - Comments only - Sravani Zayas LEAD ELECTRICAL ENGINEER - Stable, continue current medicati on regimen. No desires for counselo r. Not Available [facility] 3 04:35:43 Coronary arterios clerosis 72419670 Completed 200705/29/2023 04/11/20 15 - Comments only - Sravani Zayas LEAD ELECTRICAL ENGINEER - With complain ts of active chest pain. Reassuri ng nuclear stress test. Will refer to cardiolo gy, since his upcoming surgery. Continue current medicati on regimen. We will speak with another provider about starting another type of nitrate such as Imdur. Check routine blood work. Not Available [facility] 3 04:35:43 Diabetes mellitus 97340871 Completed 200105/29/2023 02/15/20 15 - Comments only - Sravani Zayas APRN - Poor control with poor adherenc e to medicati on manageme nt. He is going to work on a plan with his for remember ing to take medicati ons and check fingerst icks. For now will hold off on any DM medicati on adjustme nts. Problem Code: 250.0; Problem Code Type: ICD-9; Not Available [facility] 3 04:35:43 Multiple congenit al cysts of kidney 85995634 Completed 201804/09/2019 Problem Code: Q61.9; Problem Code Type: ICD-10; Not Available [facility] 3 04:35:44 Lower urinary tract symptoms 964996577 Active 2022 has high post void residual . refer to urology. SRAVANI ZAYAS APRN [address], [place], [address], [facility] 4 07:26:25 Pain of bilatera l hands 9992718433 2253998 Active 2023 SRAVANI ZAYAS APRN [address], [place], [address], [facility] 4 10:33:17 Pain of right knee joint 5761801310 68202 Active 2023 SRAVANI ZAYAS APRN [address], [place], [address], [facility] 4 11:09:21 Prerenal azotemia 648298674 Active 2023 ALEXANDRIA zavaleta, [facility] 4 08:10:22 Derangem ent of right knee 2887850357 7196344 Active 2023 MANUEL Ellsworth, [facility] 4 13:12:51 Prepatel lar bursitis 96967568 Active 2023 Hannah Ellison RN null, [facility] 4 13:13:08 Hyperkal emia 44487670 Active 2023 Imani Gutierrez RN null, [facility] 4 10:05:43 Injury of ulnar nerve 52190867 Active [address], [facility] [address], [facility] 4 13:18:58 Foot ulcer due to type 2 diabetes mellitus 4108667753 100 Active 2023 SRAVANI ZAYAS APRN [address], [facility] [address], [facility] 10:26:31 Notes:*Problem Name: 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 Low risk for complications for nerve implantation surgery. *Problem Code: S54.00 *Problem Code Type: ICD-10 *Note Date: 01/27/2015 *Problem Name: Compliance poor with medications (not billable after 06/02/2022) *Problem Status: inactive *Comments: *Problem Code: Z91.19 *Problem Code Type: ICD-10 *Note Date: 02/18/2023 Problem Notes None recorded. Medical Equipment None Reported. Allergies Allergen ID Allergen Name Allergen Category Reaction Reaction Severity Criticality Documentation Date Start Date Code Code System Note Provider Name and Address Organization Details Recorded Time 43378 lisinopri l medicatio n other severe high 10/17/2023 89804 RxNorm Hyper kalem ia SRAVANI ZAYAS APRN [address], [place], [address], [facility] 4 12:37:10 Medications Name Sig Start Date Stop Date Status Note LastModified by Organization Details LastModified Time Prescript ion - Renewal 05/26 completed Rx Prior Auth Not Available Not Available Not Available atorvasta tin 40 mg tablet Take 1 tablet by mouth every night 2023 active Not Available Not Available Not Avai lable metformin 500 mg tablet 2TABS twice daily 08/20 completed Not Available Not Available Not Available Novolin 70/30 U-100 Insulin 100 unit/mL subcutane ous suspensio n 40 units sc twice a day by insulin pen 09/29 completed per [facility] Endocrin ologist Not Available Not Available Not Available imipramin e 50 mg tablet Take 1 tablet by mouth every night 2023 active Not Available Not Available Not Avai lable gabapenti n 600 mg tablet Take 1 tab three times daily 02/19 completed dose increase Not Available Not Available Not Available atorvasta tin 20 mg tablet Take 1 by mouth daily 2014 active Not Available Not Available Not Avai lable clindamyc in HCl 300 mg capsule TAKE ONE CAPSULE BY MOUTH THREE TIMES A DAY active Not Available Not Available No t Available trazodone 50 mg tablet Take 1 to 2 tablets by mouth every night at bedtime 2017 active Not Available Not Available Not Avai lable Humulin R U-500 (Concentr ated) Insulin 500 unit/mL subcutane ous soln Inject 25 unit subcutan eously three times a day Before meals 2023 active Not Available Not Available Not Avai lable aspirin 325 mg tablet 1 tab daily - enteric coated 2007 active Not Available Not Available Not Avai lable pravastat in 40 mg tablet 1 TAB QHS 02/18 completed Not Available Not Available Not Available Glucagon Emergency Kit 1 mg solution for injection inject IM as needed 2014 active Per [facility] endocrin ologist Not Available Not Available Not Available benzonata te 200 mg capsule q 8 hrs prn 10/06 completed Not Available Not Available Not Available metoprolo l succinate ER 50 mg tablet,ex tended release 24 hr Take 1 tablet by mouth every day 2023 active Not Available Not Available Not Avai lable hydrocodo ne 5 mg-acetam inophen 325 mg tablet TAKE 1 TABLET BY MOUTH EVERY 6 HOURS NEEDED FOR PAIN 05/26 completed Not Available Not Available Not Available naltrexon e 50 mg tablet 4.5 mg 1 tablet daily by mouth 03/28 completed Not Available Not Available Not Available lisinopri l 20 mg tablet Take 1 tablet by mouth once a day 2023 active Not Available Not Available Not Avai lable isosorbid e mononitra te ER 30 mg tablet,ex tended release 24 hr Take 2 tablets by mouth every day 2023 active Not Available Not Available Not Avai lable fluoxetin e 10 mg tablet 1 tab qd 01/17 completed Not Available Not Available Not Available sertralin e 100 mg tablet Take 2 tablets by mouth once a day 2023 active Not Available Not Available Not Avai lable Lantus U-100 Insulin 100 unit/mL subcutane ous solution At bedtime subcutan eously inject 07/18 completed Not Available Not Available Not Available allopurin ol 100 mg tablet Take 1 tablet by mouth every day 2023 active Not Available Not Available Not Avai lable sulfameth oxazole 800 mg-trimet hoprim 160 mg tablet TAKE ONE TABLET BY MOUTH TWICE A DAY FOR 10 DAYS active Not Available Not Available No t Available lancets Use 1 lancet four times daily as directed . 2017 active Not Available Not Available Not Avai lable Vitamins B Complex tablet take 1 tablet daily 2018 active Not Available Not Available Not Avai lable pravastat in 80 mg tablet 1 TAB [facility] 12/20 completed Not Available Not Available Not Available amitripty line 25 mg tablet 1 TAB HS 02/21 completed Not Available Not Available Not Available tamsulosi n 0.4 mg capsule TAKE 1 CAPSULE BY MOUTH ONCE DAILY active Not Available Not Available No t Available trazodone 100 mg tablet Take 1 tablet by mouth every night 2023 active Not Available Not Available Not Avai lable Valium 5 mg tablet 1 TAB TID 02/21 completed Not Available Not Available Not Available amitripty line 10 mg tablet 1 tab at bedtime 09/29 completed Not Available Not Available Not Available Humulin R Regular U-100 Insulin 100 unit/mL injection solution Inject 10-40 unit subcutan eously as directed with meals and 15-30 units at night 11/29 completed Not Available Not Available Not Available oseltamiv ir 75 mg capsule Take 1 tablet by mouth twice a day. 10/01 completed Not Available Not Available Not Available ferrous sulfate 325 mg (65 mg iron) tablet Take 1 tablet every Saturday, , Saturday. Bubble pack! 2018 active Not Available Not Available Not Avai lable fluoxetin e 20 mg tablet 1TAB qd 12/20 completed Not Available Not Available Not Available metformin 1,000 mg tablet Take 1 by mouth twice a day 03/10 completed Not Available Not Available Not Available lisinopri l 10 mg tablet Take 1 tab by mouth daily 2014 active Not Available Not Available Not Avai lable glimepiri de 4 mg tablet Take 2 tablets by mouth every day 2023 active Not Available Not Available Not Avai lable oxycodone 5 mg capsule Take 1 tablet every 4 hours as needed for pain 09/21 completed Not Available Not Available Not Available fluoxetin e 10 mg capsule Take 1 by mouth daily 02/14 completed Not Available Not Available Not Available nitroglyc ghada 0.4 mg sublingua l tablet Dissolve 1 tablet under the tongue for chest pain & call 911 may repeat in 5 minutes x2 more doses 2017 active Not Available Not Available Not Avai lable lisinopri l 30 mg tablet Take 1 tablet by mouth once a day dose decrease 10/17 completed Not Available Not Available Not Available Amaryl 2 mg tablet 1 tab qam 12/02 completed Not Available Not Available Not Available Magnesium -Oxide 400 mg tablet Take 1 tab by mouth daily 09/21 completed hosp Not Available Not Available Not Available gabapenti n 300 mg capsule Take 3 capsules by mouth four times daily 04/13 completed Toniei flavio per [facility] d/c summary 04/06/24 Not Available Not Available Not Available cephalexi n 500 mg tablet 1 bid 01/13 completed Not Available Not Available Not Available allopurin ol 300 mg tablet Take 1 tablet by mouth every day 04/13 completed Not Available Not Available Not Available Aspirin EC 325 mg tablet,de layed release 1 TAB QD 01/26 completed Not Available Not Available Not Available gabapenti n 100 mg capsule Take 2 capsules by mouth three times daily 2023 active Not Available Not Available Not Avai lable metoprolo l succinate ER 25 mg tablet,ex tended release 24 hr Take 1 tablet by mouth once a day 07/15 completed Not Available Not Available Not Available Novolog U-100 Insulin aspart 100 unit/mL subcutane ous solution AC/ HS 07/18 completed Not Available Not Available Not Available ibuprofen 600 mg tablet TAKE 1 TABLET BY MOUTH THREE TIMES DAILY NEEDED FOR PAIN 05/26 completed Not Available Not Available Not Available One Touch Test strips 4 times daily as directed 2015 active Not Available Not Available Not Avai lable colchicin e 0.6 mg tablet Take 2 tablets , in 1 hour can repeat 1 tablet in (may take a total of 4 tablets the first day . Then 1 tablet twice a day 2023 active Not Available Not Available Not Avai lable lisinopri l 40 mg tablet Take 1 tablet by mouth once a day 07/06 completed Not Available Not Available Not Available multivita min capsule take 1 tab daily 09/29 completed Not Available Not Available Not Available fluoxetin e 20 mg capsule Take 1 by mouth daily 07/18 completed Not Available Not Available Not Available metformin ER 500 mg tablet,ex tended release 24 hr Take 1 tablet by mouth twice a day 04/13 completed Not Available Not Available Not Available doxycycli ne hyclate 100 mg tablet Take 1 tab by mouth twice daily 07/02 completed Not Available Not Available Not Available finasteri de 5 mg tablet TAKE 1 TABLET BY MOUTH ONCE DAILY 2023 active Not Available Not Available Not Avai lable Vitamin B-12 1,000 mcg tablet 1 tab daily 2015 active recommen ded by [facility] endocrin ologist Not Available Not Available Not Available oxycodone 5 mg tablet Take 1 tab by mouth daily as needed for pain 05/03 completed Not Available Not Available Not Available pen needle, diabetic 31 gauge x 5/16 Use 1 needle subcutan eously four times a day 11/26 completed goes to [facility] Not Available Not Available Not Available Abilify 10 mg tablet Take 1 tab by mouth daily 2018 active Not Available Not Available Not Avai lable Novolog FlexPen U-100 Insulin aspart 100 unit/mL (3 mL) subcutane ous inject Tid ac and at HS. sliding scale prn if BG>180ba sed on 1u:20BG ratio, 180=3 units,20 0=5 units,25 0= 8units,3 00=10uni ts,350=1 3 units,40 0=15 units,et c 01/01 completed per [facility] endocrin ologist Not Available Not Available Not Available aripipraz ole 5 mg tablet Take 1 tablet by mouth once a day 2023 active Not Available Not Available Not Avai lable magnesium L-lactate ER 84 mg tablet,ex tended release Take 1 tablet by mouth twice daily 2023 active Not Available Not Available Not Avai lable duloxetin e 60 mg capsule,d elayed release Take 1 capsule by mouth once a day 2023 active Not Available Not Available Not Avai lable Cymbalta 30 mg capsule,d elayed release Take 1 tab by mouth daily along with a 60mg tablet to equal 90 mg daily 07/21 completed Not Available Not Available Not Available gabapenti n 300 mg tablet 1 TAB three times daily 03/26 completed Not Available Not Available Not Available Ibuprofen 200 Take 2 tabs by mouth three times daily 07/21 completed Not Available Not Available Not Available Multivita mins 1 TAB daily 01/26 completed Not Available Not Available Not Available Levemir U-100 Insulin 100 unit/mL subcutane ous solution Inject 25 unit subcutan eously twice a day 2022 active Not Available Not Available Not Avai lable Unifine Pentips 31 gauge x 1/4 needle USE DIRECTED 4 TIMES DAILY. active Not Available Not Available No t Available OneTouch UltraMini kit Use once a day as directed 2018 active Not Available Not Available Not Avai lable cholecalc iferol (vitamin D3) 25 mcg (1,000 unit) tablet 2 tabs daily 2015 active recommen ded by [facility] endocrin ologist Not Available Not Available Not Available Multivita l 1 tablet once a day 2018 active Not Available Not Available Not Avai lable Janumet 50 mg-1,000 mg tablet 1TAB bid 05/02 completed Not Available Not Available Not Available Lantus Solostar U-100 Insulin 100 unit/mL (3 mL) subcutane ous pen Give 40 units at bedtime daily 06/19 completed Not Available Not Available Not Available Lantus Solostar U-100 Insulin INJ SQ AT BEDTIME 01/26 completed Not Available Not Available Not Available Humalog KwikPen (U-100) Insulin 100 unit/mL subcutane ous Inject 10-49 unit subcutan eously three times a day with meals 04/16 completed stopped Not Available Not Available Not Available Victoza 0.6 mg/0.1 mL (18 mg/3 mL) subcutane ous pen injector DAILY 12/30 completed Not Available Not Available Not Available magnesium 400 mg (as magnesium oxide) capsule 1 tablet daily 07/21 completed Not Available Not Available Not Available lidocaine 5 % topical ointment apply to right arm twice daily 05/03 completed Not Available Not Available Not Available TRUEplus Insulin 0.5 mL 31 gauge x 5/16 syringe use to inject insulin 5 times daily as directed 2021 active Not Available Not Available Not Avai lable Victoza 2-Sumit 0.6 mg/0.1 mL (18 mg/3 mL) subcutane ous pen injector inject daily 04/18 completed Not Available Not Available Not Available Unifine Pentips Plus 32 gauge x 5/32 needle Use 1 needle subcutan eously four times a day as directed with Humalog adal 2023 active Not Available Not Available Not Avai lable Levemir FlexTouch U-100 Insulin 100 unit/mL (3 mL) subcutane ous pen Take 30 units at am 07/[address] [facility] Not Available Not Available Not Available Jardiance 10 mg tablet 1 tablet by mouth daily 2023 active Not Available Not Available Not Avai lable Trulicity 1.5 mg/0.5 mL subcutane ous pen injector inject weekly 1 week after starting the 0.75 mg dose 04/18 completed Not Available Not Available Not Available Trulicity 0.75 mg/0.5 mL subcutane ous pen injector inject sc weekly x 1 week then increase to 1.5 mg weekly 04/18 completed Not Available Not Available Not Available OxyContin 15 mg tablet,cr ush resistant ,extended release Take 1 tab by mouth twice daily. 05/03 completed Not Available Not Available Not Available OxyContin 10 mg tablet,cr ush resistant ,extended release Take 1 tab by mouth every 12 hours for pain 11/22 completed Not Available Not Available Not Available Narcan 4 mg/actuat ion nasal spray administ er 1 syringe full in nostril as needed for excessiv e sedation 05/03 completed Not Available Not Available Not Available BD Insulin Syringe U-500 1/2 mL 31 gauge x 15/64 Use 1 syringe as directed twice a day 2023 active Not Available Not Available Not Avai lable BD Veo Insulin Syringe Ultra-Fin e 1/2 mL 31 gauge x 15/64 USE 1 NEW SYRINGE DIRECTED FIVE TIMES DAILY active Not Available Not Available No t Available BD Veo Insulin Syringe Ultra-Fin e 1 mL 31 gauge x 15/64 2023 active Not Available Not Available Not Avai lable magnesium 400 mg (as magnesium oxide) tablet 1 tab daily 09/29 completed Not Available Not Available Not Available FreeStyle Tasha 2 Sensor kit Use 1 device to skin every two weeks 2023 active Not Available Not Available Not Avai lable Vitals Date Recorded Body height Body mass index (BMI) Body weight Body temperature Oxygen saturation Oxygen saturation in Arterial blood by Pulse oximetry Heart rate Systolic blood pressure Diastolic blood pressure Provider Name and Address Organization Details Last Updated DateTime 4 171.45 cm 36.3 kg/m2 830426. 61 g 97.6 [degF] 99 % 99 % 84 /min 116 mm[Hg] 70 mm[Hg] NAYE WRIGHT [facility] 4 10:02:47 Social History Question Answer Notes LastModified by Organizat ion Details LastModified Time Tobacco Smoking Status [facility]/21/2023 10:11:00 What Was The Date Of Your Most Recent Tobacco Screening? 03/16/2024 Information not available 03/16/2024 Has Tobacco Cessation Counseling Been Provided? No Information not available 11/21/2023 Do You Or Have You Ever Used Any Other Forms Of Tobacco Or Nicotine? No Information not available 11/21/2023 Sex: Male Functional Status None recorded. Mental Status None recorded. Family History Relationship Description Onset Age of this Age Resolved Age Notes LastModified by Organization Details LastModified Time Brother Family history of diabetes mellitus type 1 [email or web address] Not available 2022 03:52:28 Notes:*Problem: Mother- ksenia ng- sciatica, HTN Father- living- sciatica, pacemaker Siblings- 1 brother- alive- DM, HTN, HLD, prostethic leg diabetes complication, stroke Children- 1 son- living and had blood clot to his LLE HTN: Yes HLD: yes CAD: no DM: yes Breast CA: yes, maternal aunt Colon CA: no prostate CA: no Medical History No medical history recorded. Immunizations Vaccine Type Date Status Note Provider Nam e and Address Organization Details Recorded Time Influenza, split virus, quadrivalent, PF 4 completed [facility] 11/21/2023 11:32:49 Td (adult), 2 Lf tetanus toxoid, preservative free, adsorbed 6 completed Not Available [facility] 07/12/2023 04:02:22 Tdap 2 completed Not Available [facility] 07/12/2023 04:02:23 Tdap 2 completed Not Available [facility] 07/12/2023 04:02:23 Influenza, split virus, trivalent, preservative 6 completed Not Available [facility] 07/12/2023 04:02:24 Influenza, split virus, quadrivalent, PF 0 completed Not Available [facility] 07/12/2023 04:02:24 Influenza, split virus, quadrivalent, PF 2 completed Not Available [facility] 07/12/2023 04:02:24 Influenza, split virus, quadrivalent, PF 1 completed Not Available [facility] 07/12/2023 04:02:24 zoster recombinant 0 completed Not Available [facility] 07/12/2023 04:02:24 zoster recombinant 0 completed Not Available [facility] 07/12/2023 04:02:24 COVID-19, mRNA, LNP-S, PF, 100 mcg/0.5mL dose or 50 mcg/0.25mL dose 1 completed Not Available [facility] 07/12/2023 04:02:25 COVID-19, mRNA, LNP-S, PF, 100 mcg/0.5mL dose or 50 mcg/0.25mL dose 2 completed Not Available [facility] 07/12/2023 04:02:25 COVID-19, mRNA, LNP-S, PF, 100 mcg/0.5mL dose or 50 mcg/0.25mL dose 1 completed Not Available [facility] 07/12/2023 04:02:25 COVID-19, mRNA, LNP-S, PF, 100 mcg/0.5mL dose or 50 mcg/0.25mL dose 1 completed Not Available [facility] 07/12/2023 04:02:25 SARS-COV-2 (COVID-19) vaccine, UNSPECIFIED 2 completed Not Available [facility] 07/12/2023 04:02:25 Pneumococcal conjugate PCV20, polysaccharide [id number] conjugate, adjuvant, PF 3 completed Not Available [facility] 07/12/2023 04:02:26 pneumococcal polysaccharide PPV23 1 completed Not Available [facility] 07/12/2023 04:02:26 Hep B, adult 4 completed Not Available [facility] 07/12/2023 04:02:26 Hep B, adult 2 completed Not Available [facility] 07/12/2023 04:02:26 Hep B, adult 3 completed Not Available [facility] 07/12/2023 04:02:26 Hep B, adult 2 completed Not Available [facility] 07/12/2023 04:02:27 influenza, unspecified formulation 9 completed Not Available [facility] 07/12/2023 04:02:27 Influenza, split virus, trivalent, PF 4 completed SRAVANI ZAYAS APRN [address], [place], [address], [facility] 05/26/2024 10:56:20 COVID-19, mRNA, LNP-S, PF, ines-sucrose, 30 mcg/0.3 mL 4 completed SRAVANI ZAYAS APRN [address], [place], [address], [facility] 05/26/2024 10:56:20 COVID-19, mRNA, LNP-S, PF, ines-sucrose, 30 mcg/0.3 mL 3 completed Not Available [facility] 09/13/2023 05:33:10 Past Encounters Encounter ID Performer Location Encounter Start Date Encounter Closed Date Diagnosis/Indication Diagnosis SNOMED-CT Code Diagnosis ICD10 Code [id number] SRAVANI ZAYAS APRN [address] [address] 05/26/2024 09:48:03 05/26/2024 10:41:25 Atherosclerosis of coronary artery without angina pectoris 9540104754 71567 I25.10 I20.9 I10 E78.2 N18.9 Gout 13441119 M10.9 Type 2 juancho betes mellitus without complication 339284994 E11.9 G62.9 H35.00 Phlebitis 66689346 I80.9 Iron deficiency 69788145 E61.1 Adjustment disorder with depressed mood 90274233 F43.21 Lower urin mary tract symptoms 478970924 R39.9 Pain of le ft knee joint 5161694235 18339 M25.562 Vitamin D deficiency 347 18880 E55.9 Pain of bi lateral hands 7941305094 1957417 M79.641 M79.642 Pain of ri ght knee joint 0936780712 23131 M25.561 Injury of ulnar nerve 62 419198 S54.01XD Foot ulcer due to type 2 diabetes mellitus 2997743526 100 E11.621 Active or passive immunization 444998960 Z23 Health Concerns Section Related Observation LastModified by Organization Detai ls LastModified Time None Recorded Concern Status LastModified by Organization Details LastModified Time None Recorded Payers Encounter Date Sequence Insurance Name Policy Number Policy Amezquita Covered Member ID Amezquita Member ID Guarantor Name 05/26/2024 1 [place] [employer] Isiah Mercado [place] [id number] Isiah Mercado [place] 05/26/2024 2 [employer] (MEDICARE SUPPLEMENT) Isiah Mercado Mitchell [id number] Isiah Mercado Mitchell Notes Date Note Type Note Provider Name and Address Organization Details Recorded Time 05/26/2024 text/html Is here for follow-up: -CAD. Angina. HTN. HLD. CKD. Takes atorvastatin, isosorbide, metoprolol, ASA. Low dose lisinopril; this has caused hyperkalemia in the past and are monitoring. Was admitted Apr 2024 for prerenal azotemia secondary to dehydration. Metformin was stopped r/t renal function; was stressed importance of not taking NSAIDs last visit. Had hyperkalemia, stopped lisinopril and the hyperkalemia resolved.-Gout. Takes allopurinol. Dose had to be reduced in April r/t renal function clearance. had one gout flare last month, was started on colchicine. Has not stopped the colchicine. - Diabetes. Neuropathy. Retinopathy. Hypomag. Takes metformin, glimepiride, gabapentin, atorvastatin, ASA, magnesium. Endo wants him to do metformin 500mg BID, glimerpide 4mg 2 tabs daily, Levemir 10 units BID. U500 20 units BID. Overdue for his endo appt. Gabapentin dose was reduced r/t renal function. Glimepiride was reduced r/t renal function.-- update 05.26.24. Range 140-160. high 210. lowest 43. Denies 3Ps. Levemir 20units BID. U500 units is 25 units BID. Has not called endo for an appt. -Thrombophlebitis. ASA.-ADA.February 23 iron was slightly low at 59, had normal H&H, ferritin, retic, haptoglobin. Without iron supplementation. Since hospital visit for prerenal azotemia in Apr 2024, has anemia again.-Adjustment disorder with depressed mood. Hx of suicide ideations. Depression. Takes Cymbalta, aripiprazole, sertraline, trazodone, B complex and vitamin D. Officially as of Aug 24. 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 no longer seeing counselor. Feels he is in a good spot currently.-- update 05.26.24. Doing well. occ anxiety. No depression.-LUTS. Takes imipramine, flomax, proscar.-Knee pain, left. Secondary to bursitis. Plans for surgery once A1C is improved.-- update 05.26.24. Recent surgical interventions to the right knee, knee ismuch improved.-Hip pain, left. With radiation to the knee. Plan was to stretch and monitor.-Vitamin d deficiency. on supplementation -Pain of bilateral hands. suspect OA. Last visit was recommended to do anti-inflammatory diet.-- update 03.16.24. no hand pain. 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 Has had stimulator placed in the past. Has done function rehab program, physical therapy, bracing. Takes meds through pain clinic. Initial injury was 5.11.15 to the right elbow after hitting on the door jam.-- update 05.26.24. Appt with pain clinic in near future. SRAVANI ZAYAS, LEAD ELECTRICAL ENGINEER [address], [place], [address], [facility]. 05/26/2024 10:56:35
--- OUTSIDE RECORDS SUMMARY | 2024-08-14 01:20 | XMS_ITS | Encounter Summary ---
Author Organization [facility] [place] [address] Care Team Providers Care Spanish Literature Professor Name Role Phone Sravani Salas APRN Primary Care Provider [phone] Reason for Visit * Reason Onset Date Comments Medication Refill 04/17/2022 Encounter Details Date Type Department Care Team (Late st Contact Info) Description 04/17/2022 [place] [phone] Wayne Cleveland, RN Social History Tobacco Use Types Packs/Day [...] 10:30 AM EST Office [place] [address] Rodrigo Conteh MD [facility] [place] [address] documented as of this encounter Visit Diagnoses Not on filedocumented in this encounter Care Teams Spanish Literature Professor Relationship Specialty Start Date End Date Sravani Salas APRN [address] [place] [address] PCP - General Family Medicine 01/15/17 documented as of this encounter
--- OUTSIDE RECORDS SUMMARY | 2024-08-14 01:20 | XMS_ITS | Encounter Summary ---
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, right arm, subsequent encounter Sravani Salas APRN [address] [place] [address] [facility] [place] [address] Referral ID Status Reason Start Date Expiration Date Visits Requested Visits Authorized [id number] Authorized Consult, Test & Treat PCP Updated and/or Approved 05/14/2024 05/14/2025 6 6 Encounter Details Date Type Department Care Team (Latest Contact Info) Description 05/29/2024 Transcribe Orders eDH Incoming Referrals [phone] Sravani Salas APRN [address] [place] [address] Laceration of ulnar nerve at forearm level, right, subsequent encounter Social History Tobacco Use Types Packs/Day Years [...] 10:30 AM EST Office [place] [address] Rodrigo Conteh MD [facility] [place] [address] Scheduled Referrals Name Type Priority Associated Diagnoses Order Schedule Referral to Pain Management Outpatient Referral Routine Laceration of ulnar nerve at forearm level, right, subsequent encounter Ordered: 05/29/2024 documented as of this encounter Visit Diagnoses Diagnosis Laceration 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
--- OUTSIDE RECORDS SUMMARY | 2024-08-14 01:20 | XMS_ITS | Encounter Summary ---
Author Organization [facility] Address [address] [place] [address] Care Team Providers Care Design Studio Consultant Name Role Phone Unavailable Primary Care Provider Unavailabl e Encounter Details Date Type Department Care Team (Late st Contact Info) Description 01/15/2023 Lab Requisition [facility] Pathology & Laboratory Medicine - [facility] [address], [place] [id number] Outr Resulting Lab, Provider Social History Tobacco [...] Procedure Name Priority Date/Time Associated Diagnosis Comments HAPTOGLOBIN Routine 01/14/2023 13:58 EDT documented in this encounter Results * HAPTOGLOBIN (01/14/2023 13:58 EDT) Haptoglobin 111 32 - 197 mg/dL 01/16/2023 10:19 EDT [facility] Blood VENOUS BLOOD / Unknown 01/14/2023 13:58 EDT 01/15/2023 17:42 EDT us Provider Outr Resulting Lab CHEMISTRY & BLOOD GA S ORDERABLES Final Result [facility] [address] [place] [address] documented in this encounter Visit Diagnoses Not on filedocumented in this encounter
--- OUTSIDE RECORDS SUMMARY | 2024-08-14 01:20 | XMS_ITS | Encounter Summary ---
Author Organization [facility] [place] [address] Care Team Providers Care Turpentine Farmer Name Role Phone Sravani Salas INDUSTRIAL SERVICER Primary Care Provider [phone] Encounter Details Date Type Department Care Team (Late Contact Info) Description 02/11/2023 Telephone [place] [address] Marlene Odell RN Social History Tobacco Use Types Packs/Day [...] encounter Miscellaneous Notes * Telephone Encounter - Marlene Odell RN - 02/11/2023 2:49 PM EDT Called patient to ask where he had his A1C labs drawn per Dr. Conteh. He reports [facility] in [place]. Called [facility] [phone] to fax lab orders. documented in this encounter Plan of Treatment Upcoming Encounters Date Type Department Care Team (Late Contact Info) Description 08/18/2024 10:30 AM EST Office [place] [address] Rodrigo Conteh MD [facility] [place] [address] documented as of this encounter Visit Diagnoses Not on filedocumented in this encounter Care Teams Turpentine Farmer Relationship Specialty Start Date End Date Sravani Salas APRN [address] [place] [address] PCP - General Family Medicine 01/15/17 documented as of this encounter
--- OUTSIDE RECORDS SUMMARY | 2024-08-14 01:20 | XMS_ITS | Continuity of Care Document ---
Author Organization [facility] Address [address] [place] [address] Phone [phone] Care Team Providers Care Rehabilitation Psychologist Name Role Phone Testing Care Team Information Survey Manager U navailable
--- OUTSIDE RECORDS SUMMARY | 2024-08-14 01:20 | XMS_ITS | Encounter Summary ---
Author Organization [facility] Address [address] [place] [address] Care Team Providers Care Breastfeeding Program Coordinator Name Role Phone Unavailable Primary Care Provider Unavailabl e Encounter Details Date Type Department Care Team (Late st Contact Info) Description 10/18/2021 Lab Requisition [facility] Pathology & Laboratory Medicine - [address] [address] Outr Resulting Lab, Provider Social History Tobacco [...] Procedure Name Priority Date/Time Associated Diagnosis Comments FERRITIN Routine 10/17/2021 11:55 EST documented in this encounter Results * FERRITIN (10/17/2021 11:55 EST) Ferritin 53 22 - 322 ng/mL 10/18/2021 18:17 EST [facility] Blood VENOUS BLOOD / Unknown 10/17/2021 11:55 EST 10/18/2021 17:11 EST us Provider Outr Resulting Lab CHEMISTRY & BLOOD GA S ORDERABLES Final Result [facility] [address] [place] [address] documented in this encounter Visit Diagnoses Not on filedocumented in this encounter
--- OUTSIDE RECORDS SUMMARY | 2024-08-14 01:20 | XMS_ITS | Data Portability ---
Author Organization [facility], [facility] Address [address] [place] [address] Assessment Encounter Date Assessment Date Assessment LastModified by Organization Details LastModified Time 08/29/2023 08/29/2023 This appointment was conducted using a Secure Online Video System. A total of 20 minutes was spent at this visit of which at least 50% was spent in direct patient contact. Not available 08/29/2023 10:42:35 11/21/2023 11/21/2023 Flu vaccine: provide today Comirnaty: current Td: current PCV20: completed Shingrix: completed RSV: n/a CRC: current- due 2029 AAA Screening: n/a Follow-up in 3 Months. Call or RTO sooner if needs arise. The total time devoted to today's encounter, including both the mcgp-wf-omqo time with the patient and/or family/caregiv er and psg-qmbb-fy-fa ce time I personally spent is 34 minutes. Not available 11/21/2023 10:39:48 03/16/2024 03/16/2024 This patient was interviewed by Adenike Arvizu, SIVAN student at [employer]. I have interviewed, examined, and agree with findings, assessment, and plan. The total time devoted to today's encounter, including both the uzwn-gs-rrhd time with the patient and/or family/caregiv er and nmb-zgex-gk-fa ce time I personally spent is 35 minutes. Flu vaccine: current Comirnaty: current Td: current - due 2031 PCV20: completed Shingrix: completed RSV: n/a CRC: current- due 2029 AAA Screening: n/a Follow-up in 3 Months. Call or RTO sooner if needs arise. Not available 03/16/2024 13:04:43 04/10/2024 04/10/2024 The total time devoted to today's encounter, including both the bqxs-mf-afwo time with the patient and/or family/caregiv er and nyv-ayyg-ii-fa ce time I personally spent is 28 minutes. Admission: 04.02.24 Discharge: 04.06.24 Patient/ caregiver first interactive contact date: 04.09.24. Face to face visit date: 04.10.24. Medical complexity decision making: high Follow-up in 1 Months. Call or RTO sooner if needs arise. Not available 04/10/2024 14:53:03 05/26/2024 05/26/2024 The total time devoted to today's encounter, including both the tjps-qy-gbmh time with the patient and/or family/caregiv er and ybz-fdrt-iz-fa ce time I personally spent is 45 minutes. Flu vaccine: provide today Comirnaty: provide today Td: current - due 2031 PCV20: completed. PPSV23 2000. Shingrix: completed RSV: n/a CRC: current- due 2029 AAA Screening: n/a Follow-up in 1 Months. Call or RTO sooner if needs arise. Not available 05/26/2024 10:33:55 Plan of Treatment Reminders Order Date Submit Date Provider Last Modified By Organization Details Last Modified Time Details Appointments None recorded. Lab uric acid, serum or plasma [address] [facility] ([facility]), [address] [place] [address] [place], [address], 4 09:48:25 iron + TIBC + ferritin, serum [address] [facility] ([facility]), [address] [place] [address] [place], [address], 4 09:49:14 CBC w/ diff [address] [facility] ([facility]), [address] [place] [address] [place], [address], 4 09:49:53 CMP, serum or plasma [address] [facility] ([facility]), [address] [place] [address] [place], [address], 4 15:36:18 vitamin D, 25-hydroxy, total, serum [address] [facility] ([facility]), [address] [place] [address] [place], [address], 4 16:35:46 magnesium, serum or plasma [address] [facility] ([facility]), [address] [place] [address] [place], [address], 4 09:48:40 vitamin B12, serum [address] [facility] ([facility]), [address] [place] [address] [place], [address], 4 09:48:58 hemoglobin A1C, fingerstick 2023 024 [facility], [address] [place] [address], [address], 4 13:08:10 CMP, serum or plasma [address] [facility] (Registration ), [address] [place] [address] [address] [facility] [place], [address], 4 21:27:43 Referral orthopedic surgeon referral 2023 024 [email or web address] [facility], [address], [place], [address], 4 10:11:44 director safety referral 2023 024 [facility], [address] [place], [address], 05:49:43 Procedures None recorded. Surgeries None recorded. Imaging None recorded. Medication Orders colchicine 0.6 mg tablet 2023 024 [email or web address], [address] [facility], [facility], [place], [address], 10:55:49 Jardiance 10 mg tablet [email or web address], [address] [place], [address], 10:55:49 Patient TargetsNo targets recorded. Patient Instructions Encounter Date Encounter Id Patient Instructions Last Modified By Organization Details Last Modified Time 11/21/2023 [id number] When You Want to Lose Weight: Care Instructions Not available 11/21/2023 10:40:51 starting a weigh t loss plan: care instructions Not available 11/21/2023 10:40:52 learning about obesity Not available 11/21/2023 10:40:52 diet Not available 2023 10:40:52 03/16/2024 [id number] starting a weigh t loss plan: care instructions Not available 03/16/2024 13:02:28 diet Not available 2023 13:02:29 exercise Not available 2023 13:02:29 05/26/2024 [id number] Dear Isiah, Thank you for visiting us [...] nerve appointment. - Schedule appointments with a color card maker and pipe bending machine operator as recommended. - Schedule an appointment with the director safety as discussed - Lifestyle Recommendations: - Monitor [...] concerns regarding your treatment plan. Best regards, Annamaria tenorio Not available 05/26/2024 10:32:26 Reason for Referral Orthopedic Surgeon Referral for Pain of right knee joint Referring Physician: [facility], Encounter Date: 03/16/2024 Detention Attendant Referral for Foot ulcer due to type 2 diabetes mellitus Referring Physician: Sravani Zayas [facility], Encounter Date: 05/26/2024 Results Created Date Observation Date Name Description Value Unit Range Abnormal Flag Note LastModifiedBy Organization Detail LastModifiedTime 10/15/1910/15/2023 URINA LYSIS color Yellow yellow Not Available Mildred mendoza [address] [place], [address] 10/15/2023 09:39:49 10/15/1910/15/2023 URINA LYSIS clarity Clear clear Not Available Mildred mendoza [address] [place], [address] 10/15/2023 09:39:49 10/15/1910/15/2023 URINA LYSIS specific gravity 1.020 1.005- 1.025 normal Not Available [address] [place], [address] 10/15/2023 09:39:49 10/15/1910/15/2023 URINA LYSIS pH 6.0 5-8 normal Not Available Mildred [address] [place], [address] 10/15/2023 09:39:49 10/15/19 24 10/15/2023 URINA LYSIS leukocyte esterase Negati ve negati ve Not Available [address] [place], [address] 10/15/2023 09:39:49 10/15/19 24 10/15/2023 URINA LYSIS nitrite Negati ve negati ve Not Available [address] [place], [address] 10/15/2023 09:39:49 10/15/1910/15/2023 URINA LYSIS protein Negati ve mg/dL negati ve Not Available [address] [place], [address] 10/15/2023 09:39:49 10/15/1910/15/2023 URINA LYSIS glucose 500 mg/dL negati ve abnormal Not Available [address] [place], [address] 10/15/2023 09:39:49 10/15/1910/15/2023 URINA LYSIS ketones Negati ve mg/dL negati ve Not Available [address] [place], [address] 10/15/2023 09:39:49 10/15/19 24 10/15/2023 URINA LYSIS urobilinogen 0.2 mg/dL up to 0.2 Not Available [address] [place], [address] 10/15/2023 09:39:49 10/15/19 24 10/15/2023 URINA LYSIS bilirubin Negati ve negati ve Not Available [address] [place], [address] 10/15/2023 09:39:49 10/15/19 24 10/15/2023 URINA LYSIS blood Trace- intact negati ve abnormal Not Available [address] [place], [address] 10/15/2023 09:39:49 10/15/19 24 10/15/2023 URINA LYSIS color Yellow yellow Not Available Mildred mendoza [address] [place], [address] 10/15/2023 09:50:52 10/15/19 24 10/15/2023 URINA LYSIS clarity Clear clear Not Available Mildred mendoza [address] [place], [address] 10/15/2023 09:50:52 10/15/19 24 10/15/2023 URINA LYSIS specific gravity 1.020 1.005- 1.025 normal Not Available [address] [place], [address] 10/15/2023 09:50:52 10/15/19 24 10/15/2023 URINA LYSIS pH 6.0 5-8 normal Not Available Mildred mendoza [address] [place], [address] 10/15/2023 09:50:52 10/15/19 24 10/15/2023 URINA LYSIS leukocyte esterase Negati ve negati ve Not Available [address] [place], [address] 10/15/2023 09:50:52 10/15/19 24 10/15/2023 URINA LYSIS nitrite Negati ve negati ve Not Available [address] [place], [address] 10/15/2023 09:50:52 10/15/19 24 10/15/2023 URINA LYSIS protein Negati ve mg/dL negati ve Not Available [address] [place], [address] 10/15/2023 09:50:52 10/15/19 24 10/15/2023 URINA LYSIS glucose 500 mg/dL negati ve abnormal Not Available [address] [place], [address] 10/15/2023 09:50:52 10/15/19 24 10/15/2023 URINA LYSIS ketones Negati ve mg/dL negati ve Not Available [address] [place], [address] 10/15/2023 09:50:52 10/15/19 24 10/15/2023 URINA LYSIS urobilinogen 0.2 mg/dL up to 0.2 Not Available [address] [place], [address] 10/15/2023 09:50:52 10/15/19 24 10/15/2023 URINA LYSIS bilirubin Negati ve negati ve Not Available [address] [place], [address] 10/15/2023 09:50:52 10/15/19 24 10/15/2023 URINA LYSIS blood Trace- intact negati ve abnormal Not Available [address] [place], [address] 10/15/2023 09:50:52 10/15/19 24 10/15/2023 MICRO SCOPI C FINDI NGS WBC Negati ve hpf 0-5 Not Available [address] [place], [address] 10/15/2023 09:50:53 10/15/19 24 10/15/2023 MICRO SCOPI C FINDI NGS RBC 0-2 hpf 0-2 Not Available [address] [place], [address] 10/15/2023 09:50:53 10/15/19 24 10/15/2023 MICRO SCOPI C FINDI NGS epithelial cells Rare hpf negati ve Not Available [address] [place], [address] 10/15/2023 09:50:53 10/15/19 24 10/15/2023 MICRO SCOPI C FINDI NGS bacteria Negati ve hpf negati ve Not Available [address] [place], [address] 10/15/2023 09:50:53 10/15/19 24 10/15/2023 MICRO SCOPI C FINDI NGS crystals Negati ve hpf negati ve Not Available [address] [place], [address] 10/15/2023 09:50:53 10/15/19 24 10/15/2023 MICRO SCOPI C FINDI NGS mucus Negati ve negati ve Not Available [address] [place], [address] 10/15/2023 09:50:53 10/15/19 24 10/15/2023 MICRO SCOPI C FINDI NGS casts Negati ve lpf negati ve Not Available [address] [place], [address] 10/15/2023 09:50:53 10/15/19 24 10/15/2023 MICRO SCOPI C FINDI NGS C S indicated? No Not Available [address] [place], [address] 10/15/2023 09:50:53 10/15/19 24 10/15/2023 HEMOG LOBIN A1C hemoglobin A1C 9.5 % <5.7 high Refer ence Range s <5.7 Zoraida l 5.7-6 .4% Predi abete s 6.5% or great er Diagn ostic for diabe angie (if confi rmed) Refer ences : 1. Ameri can Diabe angie Assoc iatio n. Clas sific ation and Diagn osis of Diabe angie. Diabe angie Care 2019 Sep; 2(Sup pleme nt 1):S1 3-s28 . Not Available [address] [place], [address] 10/15/2023 10:11:53 10/15/19 24 10/15/2023 MICRO ALBUM IN microalbumin 80.2 mg/L 1.30-2 0.0 high Not Available [address] [place], [address] 10/15/2023 10:11:54 10/15/19 24 10/15/2023 MICRO ALBUM IN creatinine urine 94.50 mg/dL Not Available [address] [place], [address] 10/15/2023 10:11:54 10/15/19 24 10/15/2023 MICRO ALBUM IN microalb ug/mg crea 84.9 ug/mg _cr Zoraida l: <30 ug/mg Crea Micro album inuri a: 30-30 0 ug/mg Crea Clini riddhi album inuri a: >300 ug/mg Crea Not Available [address] [place], [address] 10/15/2023 10:11:54 03/16/20 24 03/16/2024 COMPL ETE BLOOD COUNT W/DIF F WBC 7.47 10_3/ uL 4.4-10 .[address] [facility] ([facility]) [address] [place] [address] [place], [address], 03/16/2024 15:05:04 03/16/20 24 03/16/2024 COMPL ETE BLOOD COUNT W/DIF F RBC 4.57 10_6/ uL 4.36-5 .[address] [facility] ([facility]) [address] [place] [address] [place], [address], 03/16/2024 15:05:04 03/16/20 24 03/16/2024 COMPL ETE BLOOD COUNT W/DIF F HGB 13.2 g/dL 13.5-1 7.[address] [facility] ([facility]) [address] [place] [address] [place], [address], 03/16/2024 15:05:04 03/16/20 24 03/16/2024 COMPL ETE BLOOD COUNT W/DIF F HCT 38.5 % 40.0-5 0.[address] [facility] ([facility]) [address] [place] [address] [place], [address], 03/16/2024 15:05:04 03/16/20 24 03/16/2024 COMPL ETE BLOOD COUNT W/DIF F MCV 84 fL 80-95 normal Not Available [facility] ([facility]) [address] [place] [address] [place], [address], 03/16/2024 15:05:04 03/16/20 24 03/16/2024 COMPL ETE BLOOD COUNT W/DIF F MCH 28.9 pg 27.0-3 3.0 normal Not Available [facility] ([facility]) [address] [place] [address] [place], [address], 03/16/2024 15:05:04 03/16/20 24 03/16/2024 COMPL ETE BLOOD COUNT W/DIF F MCHC 34.3 % 32.0-3 6.0 normal Not Available [facility] ([facility]) [address] [place] [address] [place], [address], 03/16/2024 15:05:04 03/16/20 24 03/16/2024 COMPL ETE BLOOD COUNT W/DIF F RDW 14.3 % 11.8-1 4.1 high Not Available [facility] ([facility]) [address] [place] [address] [place], [address], 03/16/2024 15:05:04 03/16/20 24 03/16/2024 COMPL ETE BLOOD COUNT W/DIF F platelet count 203 10_3/ uL 130-40 0 normal Not Available [facility] ([facility]) [address] [place] [address] [place], [address], 03/16/2024 15:05:04 03/16/20 24 03/16/2024 COMPL ETE BLOOD COUNT W/DIF F MPV 9.9 fL 8.0-11 .0 normal Not Available [facility] ([facility]) [address] [place] [address] [place], [address], 03/16/2024 15:05:04 03/16/20 24 03/16/2024 COMPL ETE BLOOD COUNT W/DIF F neutrophils % 71.8 % Not Available [facility] ([facility]) [address] [place] [address] [place], [address], 03/16/2024 15:05:04 03/16/20 24 03/16/2024 COMPL ETE BLOOD COUNT W/DIF F lymphocytes % 17.4 % Not Available [facility] ([facility]) [address] [place] [address] [place], [address], 03/16/2024 15:05:04 03/16/20 24 03/16/2024 COMPL ETE BLOOD COUNT W/DIF F monocytes % 7.4 % Not Available [facility] ([facility]) [address] [place] [address] [place], [address], 03/16/2024 15:05:04 03/16/20 24 03/16/2024 COMPL ETE BLOOD COUNT W/DIF F eosinophils % 2.5 % Not Available [facility] ([facility]) [address] [place] [address] [place], [address], 03/16/2024 15:05:04 03/16/20 24 03/16/2024 COMPL ETE BLOOD COUNT W/DIF F basophils % 0.4 % Not Available [facility] ([facility]) [address] [place] [address] [place], [address], 03/16/2024 15:05:04 03/16/20 24 03/16/2024 COMPL ETE BLOOD COUNT W/DIF F immature grans % 0.5 % Not Available [facility] ([facility] [address] [place] [address] [place], [address], 03/16/2024 15:05:04 03/16/20 24 03/16/2024 COMPL ETE BLOOD COUNT W/DIF F nucleated RBC 0.0 % 0.0-0. 3 normal Not Available [facility] ([facility]) [address] [place] [address] [place], [address], 03/16/2024 15:05:04 03/16/20 24 03/16/2024 COMPL ETE BLOOD COUNT W/DIF F absolute neutrophil count 5.36 10_3/ uL 1.2-6. [address] [facility] ([facility]) [address] [place] [address] [place], [address], 03/16/2024 15:05:04 03/16/20 24 03/16/2024 COMPL ETE BLOOD COUNT W/DIF F absolute lymphocyte count 1.30 10_3/ uL 1.2-3. [address] [facility] ([facility]) [address] [place] [address] [place], [address], 03/16/2024 15:05:04 03/16/20 24 03/16/2024 COMPL ETE BLOOD COUNT W/DIF F absolute monocyte count 0.55 10_3/ uL 0.1-0. [address] [facility] ([facility]) [address] [place] [address] [place], [address], 03/16/2024 15:05:04 03/16/20 24 03/16/2024 COMPL ETE BLOOD COUNT W/DIF F absolute eosinophil count 0.19 10_3/ uL 0.0-0. [address] [facility] ([facility]) [address] [place] [address] [place], [address], 03/16/2024 15:05:04 03/16/20 24 03/16/2024 COMPL ETE BLOOD COUNT W/DIF F absolute basophil count 0.03 10_3/ uL 0.0-0. [address] [facility] ([facility]) [address] [place] [address] [place], [address], 03/16/2024 15:05:04 03/16/20 24 03/16/2024 COMPR EHENS HOWARD METAB OLIC PANEL calcium 8.5 mg/dL 8.5-10 .1 normal Not Available [address] [place], [address] 03/16/2024 16:35:42 03/16/20 24 03/16/2024 COMPR EHENS HOWARD METAB OLIC PANEL glucose 104 mg/dL 74-106 normal Not Available Mildred mendoza [address] [place], [address] 03/16/2024 16:35:42 03/16/20 24 03/16/2024 COMPR EHENS HOWARD METAB OLIC PANEL BUN 16 mg/dL 7-18 normal Not Available Mildred mendoza [address] [place], [address] 03/16/2024 16:35:42 03/16/20 24 03/16/2024 COMPR EHENS HOWARD METAB OLIC PANEL creatinine 1.6 mg/dL 0.70-1 .30 high Not Available [address] [place], [address] 03/16/2024 16:35:42 03/16/20 24 03/16/2024 COMPR EHENS HOWARD METAB OLIC PANEL estimated GFR 49.63 mL/min /1.73m 2 The eGFR is calcu lated from a serum creat inine using the CKD-E PI 2020 equat ion. Other varia bles requi red for the equat ion are gende r and age; this equat ion does not inclu de a race coeff icien t. This equat ion has simil ar overa ll perfo rmanc e to previ ous equat ions excep t value s may diffe r, in parti cular , in patie nts with highe r value s of eGFR and young er-ag ed adult s. Not Available [address] [place], [address] 03/16/2024 16:35:42 03/16/20 24 03/16/2024 COMPR EHENS HOWARD METAB OLIC PANEL total protein 6.8 g/dL 6.4-8. 2 normal Not Available [address] [place], [address] 03/16/2024 16:35:42 03/16/20 24 03/16/2024 COMPR EHENS HOWARD METAB OLIC PANEL albumin 3.8 g/dL 3.4-5. 0 normal Not Available [address] [place], [address] 03/16/2024 16:35:42 03/16/20 24 03/16/2024 COMPR EHENS HOWARD METAB OLIC PANEL bilirubin, total 0.49 mg/dL 0.2-1. 0 normal Not Available [address] [place], [address] 03/16/2024 16:35:42 03/16/20 24 03/16/2024 COMPR EHENS HOWARD METAB OLIC PANEL alk phos 89 U/L 46-116 normal Not Available [address] [place], [address] 03/16/2024 16:35:42 03/16/20 24 03/16/2024 COMPR EHENS HOWARD METAB OLIC PANEL sodium 140 mmol/ L 136-14 5 normal Not Available [address] [place], [address] 03/16/2024 16:35:42 03/16/20 24 03/16/2024 COMPR EHENS HOWARD METAB OLIC PANEL potassium 5.1 mmol/ L 3.5-5. 1 normal Not Available [address] [place], [address] 03/16/2024 16:35:42 03/16/20 24 03/16/2024 COMPR EHENS HOWARD METAB OLIC PANEL chloride 106 mmol/ L 98-107 normal Not Available [address] [place], [address] 03/16/2024 16:35:42 03/16/20 24 03/16/2024 COMPR EHENS HOWARD METAB OLIC PANEL CO2 24.4 mmol/ L 21.0-3 2.0 normal Not Available [address] [place], [address] 03/16/2024 16:35:42 03/16/20 24 03/16/2024 COMPR EHENS HOWARD METAB OLIC PANEL anion gap 9.6 mmol/ L 3-11 normal Not Available [address] [place], [address] 03/16/2024 16:35:42 03/16/20 24 03/16/2024 COMPR EHENS HOWARD METAB OLIC PANEL AST 36 U/L 15-37 normal Not Available Mildred mendoza [address] [place], [address] 03/16/2024 16:35:42 03/16/20 24 03/16/2024 COMPR EHENS HOWARD METAB OLIC PANEL ALT 47 U/L 16-63 normal Not Available Mildred mendoza [address] [place], [address] 03/16/2024 16:35:42 03/16/20 24 03/16/2024 URIC ACID uric acid 6.3 mg/dL 3.5-7. 2 normal Not Available [facility] ([facility] [address] [place] [address] [place], [address], 03/16/2024 15:36:18 03/16/20 24 03/16/2024 MAGNE SIUM magnesium 1.5 mg/dL 1.8-2. 4 low Not Available [facility] ([facility]) [address] [place] [address] [place], [address], 03/16/2024 15:36:19 03/16/20 24 03/16/2024 IRON AND IBCT iron 39 ug/dL 65-175 low Not Available [facility] ([facility]) [address] [place] [address] [place], [address], 03/16/2024 16:17:32 03/16/20 24 03/16/2024 IRON AND IBCT total iron binding capacity 342 ug/dL 250-45 0 normal Not Available [facility] ([facility]) [address] [place] [address] [place], [address], 03/16/2024 16:17:32 03/16/20 24 03/16/2024 IRON AND IBCT transferrin sat 11 % 20-55 low Not Available [facility] ([facility]) [address] [place] [address] [place], [address], 03/16/2024 16:17:32 03/16/20 24 03/16/2024 NADEEM TIN ferritin 116 NG/mL 26-388 normal Not Available [facility] ([facility]) [address] [place] [address] [place], [address], 03/16/2024 16:35:44 03/16/20 24 03/16/2024 VITAM IN B12 vitamin B12 592 pg/mL 193-98 6 normal Not Available [facility] ([facility]) [address] [place] [address] [place], [address], 03/16/2024 16:35:45 03/16/20 24 03/16/2024 VITAM IN D 25 TOTAL vitamin D 25 total 46.3 NG/mL 30-100 normal Refer ence Guide lines : Defic ient: <10 ng/ml Insuf ficie nt: 10-30 ng/ml Suffi cient : 30-10 0 ng/ml Toxic : >100 ng/ml Not Available [address] [place], [address] 03/16/2024 16:35:45 03/16/20 24 03/16/2024 hemog lobin A1C, finge rstic k hemoglobin A1C 9.1 % <5.7 Not Available [address], [address], 03/16/2024 12:10:01 04/02/20 24 04/02/2024 COMPL ETE BLOOD COUNT W/DIF F WBC 6.88 10_3/ uL 4.4-10 .8 normal Not Available [address] [place], [address] 04/02/2024 11:08:21 04/02/20 24 04/02/2024 COMPL ETE BLOOD COUNT W/DIF F RBC 4.26 10_6/ uL 4.36-5 .78 low Not Available [address] [place], [address] 04/02/2024 11:08:21 04/02/20 24 04/02/2024 COMPL ETE BLOOD COUNT W/DIF F HGB 12.3 g/dL 13.5-1 7.5 low Not Available [address] [place], [address] 04/02/2024 11:08:21 04/02/20 24 04/02/2024 COMPL ETE BLOOD COUNT W/DIF F HCT 36.0 % 40.0-5 0.0 low Not Available [address] [place], [address] 04/02/2024 11:08:21 04/02/20 24 04/02/2024 COMPL ETE BLOOD COUNT W/DIF F MCV 85 fL 80-95 normal Not Available Mildred [address] [place], [address] 04/02/2024 11:08:21 04/02/20 24 04/02/2024 COMPL ETE BLOOD COUNT W/DIF F MCH 28.9 pg 27.0-3 3.0 normal Not Available [address] [place], [address] 04/02/2024 11:08:21 04/02/20 24 04/02/2024 COMPL ETE BLOOD COUNT W/DIF F MCHC 34.2 % 32.0-3 6.0 normal Not Available [address] [place], [id number] 04/02/2024 11:08:21 04/02/20 24 04/02/2024 COMPL ETE BLOOD COUNT W/DIF F RDW 13.3 % 11.8-1 4.1 normal Not Available [address] [place], [id number] 04/02/2024 11:08:21 04/02/20 24 04/02/2024 COMPL ETE BLOOD COUNT W/DIF F platelet count 183 10_3/ uL 130-40 0 normal Not Available [address] [place] [place], [address] 04/02/2024 11:08:21 04/02/20 24 04/02/2024 COMPL ETE BLOOD COUNT W/DIF F MPV 9.2 fL 8.0-11 .0 normal Not Available [address] [place], [address] 04/02/2024 11:08:21 04/02/20 24 04/02/2024 COMPL ETE BLOOD COUNT W/DIF F neutrophils % 63.3 % Not Available [facility] we[facility] [address] [place], [address] 04/02/2024 11:08:21 04/02/20 24 04/02/2024 COMPL ETE BLOOD COUNT W/DIF F lymphocytes % 26.0 % Not Available [facility] [address] [place], [address] 04/02/2024 11:08:21 04/02/20 24 04/02/2024 COMPL ETE BLOOD COUNT W/DIF F monocytes % 6.7 % Not Available [address] [place], [address] 04/02/2024 11:08:21 04/02/20 24 04/02/2024 COMPL ETE BLOOD COUNT W/DIF F eosinophils % 3.2 % Not Available [address] [place], [address] 04/02/2024 11:08:21 04/02/20 24 04/02/2024 COMPL ETE BLOOD COUNT W/DIF F basophils % 0.4 % Not Available [address] [place], [address] 04/02/2024 11:08:21 04/02/20 24 04/02/2024 COMPL ETE BLOOD COUNT W/DIF F immature grans % 0.4 % Not Available [address] [place], [address] 04/02/2024 11:08:21 04/02/20 24 04/02/2024 COMPL ETE BLOOD COUNT W/DIF F nucleated RBC 0.0 % 0.0-0. 3 normal Not Available [address] [place], [address] 04/02/2024 11:08:21 04/02/20 24 04/02/2024 COMPL ETE BLOOD COUNT W/DIF F absolute neutrophil count 4.35 10_3/ uL 1.2-6. 7 normal Not Available [address] [place], [address] 04/02/2024 11:08:21 04/02/20 24 04/02/2024 COMPL ETE BLOOD COUNT W/DIF F absolute lymphocyte count 1.79 10_3/ uL 1.2-3. 4 normal Not Available [address] [place], [address] 04/02/2024 11:08:21 04/02/20 24 04/02/2024 COMPL ETE BLOOD COUNT W/DIF F absolute monocyte count 0.46 10_3/ uL 0.1-0. 8 normal Not Available [address] [place], [address] 04/02/2024 11:08:21 04/02/20 24 04/02/2024 COMPL ETE BLOOD COUNT W/DIF F absolute eosinophil count 0.22 10_3/ uL 0.0-0. 7 normal Not Available [address] [place], [address] 04/02/2024 11:08:21 04/02/20 24 04/02/2024 COMPL ETE BLOOD COUNT W/DIF F absolute basophil count 0.03 10_3/ uL 0.0-0. 2 normal Not Available [address] [place], [address] 04/02/2024 11:08:21 04/02/20 24 04/02/2024 LACTA TE lactate 1.0 mmol/ L 0.6-1. 4 normal Not Available [address] [place], [address] 04/02/2024 11:08:24 04/02/20 24 04/02/2024 PROCA LCITO CODI procalcitoni n 0.2 NG/mL PCT Value (ng/m L): Inter preta tion: <0.5 Low risk for sever e sepsi s/sep tic shock >or=0 .5 and <2.0 Sever e sepsi s/sep tic shock is possi ble >or=2 .0 High risk for sever e sepsi s/sep tic shock Note: Decis ions regar ding antib iotic thera py shoul d NOT be based solel y on proca lcito codi brian ntrat ions. A proca lcito codi brian ntrat ion of <0.5 ng/mL does not entir zac exclu de syste roxi bacte rial infec tion/ sepsi s. Corre latio n with the full clini riddhi, imagi ng, and labor atory findi ngs is requi red for a compl ete sepsi s evalu ation . Addit ional ly, eleva santy proca lcito codi brian ntrat ions may not alway s be relat ed to syste roxi bacte rial infec tion and can be seen in the setti ng of sever e moore , major traum a, major surge ry, pancr eatit is, bowel ische ruth, asept ic syste roxi shock (anap hylac tic, hemor rhagi c, or cardi ogeni c), renal insuf ficie ncy, medul robb thyro id cance r, small cell lung cance r, drugs stimu latin g pro-i nflam mator y cytok kaci, invas howard funga l infec tions , Kawas tomi disea se, among other cause s. Not Available [address] [place], [address] 04/02/2024 11:52:37 04/02/2004/02/2024 COMPR EHENS HOWARD METAB OLIC PANEL calcium 8.9 mg/dL 8.5-10 .1 normal Not Available [address] [place], [address] 04/02/2024 11:59:46 04/02/20 24 04/02/2024 COMPR EHENS HOWARD METAB OLIC PANEL glucose 135 mg/dL 74-106 high Not Available Mildred mendoza [address] [place], [address] 04/02/2024 11:59:46 04/02/20 24 04/02/2024 COMPR EHENS HOWARD METAB OLIC PANEL BUN 117 mg/dL 7-18 panic high Criti riddhi value repor santy to and readb ack from [facility] at 1156 04/02 by LAB.P ELN Not Available [address] [place], [address] 04/02/2024 11:59:46 04/02/20 24 04/02/2024 COMPR EHENS HOWARD METAB OLIC PANEL creatinine 6.5 mg/dL 0.70-1 .30 panic high Criti riddhi value repor santy to and readb ack from [facility] at 1157 04/02 by LAB.P ELN Not Available [address] [place], [address] 04/02/2024 11:59:46 04/02/20 24 04/02/2024 COMPR EHENS HOWARD METAB OLIC PANEL estimated GFR 9.23 mL/min /1.73m 2 The eGFR is calcu lated from a serum creat inine using the CKD-E PI 2020 equat ion. Other varia bles requi red for the equat ion are gende r and age; this equat ion does not inclu de a race coeff icien t. This equat ion has simil ar overa ll perfo rmanc e to previ ous equat ions excep t value s may diffe r, in parti cular , in patie nts with highe r value s of eGFR and young er-ag ed adult s. Not Available [address] [place], [address] 04/02/2024 11:59:46 04/02/20 24 04/02/2024 COMPR EHENS HOWARD METAB OLIC PANEL total protein 6.9 g/dL 6.4-8. 2 normal Not Available [address] [place], [address] 04/02/2024 11:59:46 04/02/20 24 04/02/2024 COMPR EHENS HOWARD METAB OLIC PANEL albumin 3.5 g/dL 3.4-5. 0 normal Not Available [address] [place], [address] 04/02/2024 11:59:46 04/02/20 24 04/02/2024 COMPR EHENS HOWARD METAB OLIC PANEL bilirubin, total 0.31 mg/dL 0.2-1. 0 normal Not Available [address] [place], [address] 04/02/2024 11:59:46 04/02/20 24 04/02/2024 COMPR EHENS HOWARD METAB OLIC PANEL alk phos 100 U/L 46-116 normal Not Available [address] [place], [address] 04/02/2024 11:59:46 04/02/20 24 04/02/2024 COMPR EHENS HOWARD METAB OLIC PANEL sodium 137 mmol/ L 136-14 5 normal Not Available [address] [place], [address] 04/02/2024 11:59:46 04/02/20 24 04/02/2024 COMPR EHENS HOWARD METAB OLIC PANEL potassium 5.7 mmol/ L 3.5-5. 1 high Not Available [address] [place], [address] 04/02/2024 11:59:46 04/02/20 24 04/02/2024 COMPR EHENS HOWARD METAB OLIC PANEL chloride 102 mmol/ L 98-107 normal Not Available [address] [place], [address] 04/02/2024 11:59:46 04/02/20 24 04/02/2024 COMPR EHENS HOWARD METAB OLIC PANEL CO2 20.4 mmol/ L 21.0-3 2.0 low Not Available [address] [place], [address] 04/02/2024 11:59:46 04/02/20 24 04/02/2024 COMPR EHENS HOWARD METAB OLIC PANEL anion gap 14.6 mmol/ L 3-11 high Not Available [address] [place], [address] 04/02/2024 11:59:46 04/02/20 24 04/02/2024 COMPR EHENS HOWARD METAB OLIC PANEL AST 16 U/L 15-37 normal Not Available Mildred [address] [place], [address] 04/02/2024 11:59:46 04/02/20 24 04/02/2024 COMPR EHENS HOWARD METAB OLIC PANEL ALT 28 U/L 16-63 normal Not Available Mildred mendoza [address] [place], [address] 04/02/2024 11:59:46 04/02/20 24 04/02/2024 MAGNE SIUM magnesium 2.5 mg/dL 1.8-2. 4 high Not Available [address] [place], [address] 04/02/2024 11:59:47 04/02/20 24 04/02/2024 TSH (W/RE F FT4) TSH (w/ref FT4) 0.44 uIU/m L 0.36-3 .74 normal Not Available [address] [place], [address] 04/02/2024 11:59:47 04/02/20 24 04/02/2024 TROPO CODI I troponin I < 50 NG/L < or =60 Not Available [address] [place], [address] 04/02/2024 11:59:48 04/02/20 24 04/02/2024 NT-NH OBNP nt-probnp 175 pg/mL <300 NT-pr oBNP value s <300 pg/mL have a 98% negat howard predi ctive value for exclu ding acute conge stive heart failu re(CH F). NOTE: Supra -phys iolog ic doses of Bioti n(B7) may cause false negat howard resul ts. Not Available [address] [place], [address] 04/02/2024 11:59:48 04/02/2004/02/2024 CREAT INE KINAS E creatine kinase 80 U/L 39-308 normal Not Available [facility] [address] [place], [address] 04/02/2024 12:35:09 04/02/2004/02/2024 URINA LYSIS color Yellow yellow Not Available Mildred mendoza [address] [place], [address] 04/02/2024 14:40:15 04/02/20 24 04/02/2024 URINA LYSIS clarity Clear clear Not Available Mildred mendoza [address] [place], [address] 04/02/2024 14:40:15 04/02/20 24 04/02/2024 URINA LYSIS specific gravity 1.010 1.005- 1.025 normal Not Available [address] [place], [address] 04/02/2024 14:40:15 04/02/20 24 04/02/2024 URINA LYSIS pH 5.5 5-8 normal Not Available Mildred mendoza [address] [place], [address] 04/02/2024 14:40:15 04/02/20 24 04/02/2024 URINA LYSIS leukocyte esterase Negati ve negati ve Not Available [address] [place], [address] 04/02/2024 14:40:15 04/02/20 24 04/02/2024 URINA LYSIS nitrite Negati ve negati ve Not Available [address] [place], [address] 04/02/2024 14:40:15 04/02/20 24 04/02/2024 URINA LYSIS protein Negati ve mg/dL neg-tr awa Not Available [address] [place], [address] 04/02/2024 14:40:15 04/02/20 24 04/02/2024 URINA LYSIS glucose Negati ve mg/dL negati ve Not Available [address] [place], [address] 04/02/2024 14:40:15 04/02/20 24 04/02/2024 URINA LYSIS ketones Negati ve mg/dL negati ve Not Available [address] [place], [address] 04/02/2024 14:40:15 04/02/20 24 04/02/2024 URINA LYSIS urobilinogen 0.2 mg/dL up to 0.2 Not Available [address] [place], [address] 04/02/2024 14:40:15 04/02/20 24 04/02/2024 URINA LYSIS bilirubin Negati ve negati ve Not Available [address] [place], [address] 04/02/2024 14:40:15 04/02/20 24 04/02/2024 URINA LYSIS blood Negati ve negati ve Not Available [address] [place], [address] 04/02/2024 14:40:15 04/02/20 24 04/02/2024 BASIC METAB OLIC PANEL calcium 8.5 mg/dL 8.5-10 .1 normal Not Available [address] [place], [address] 04/02/2024 15:03:24 04/02/20 24 04/02/2024 BASIC METAB OLIC PANEL glucose 50 mg/dL 74-106 low Not Available Mildred mendoza [address] [place], [address] 04/02/2024 15:03:24 04/02/20 24 04/02/2024 BASIC METAB OLIC PANEL BUN 109 mg/dL 7-18 panic high Criti riddhi value repor santy to and readb ack from [facility] at 1459 04/02 by LAB.P ELN Not Available [address] [place], [address] 04/02/2024 15:03:24 04/02/20 24 04/02/2024 BASIC METAB OLIC PANEL creatinine 5.7 mg/dL 0.70-1 .30 panic high Criti riddhi value repor santy to and readb ack from [facility] at 1500 04/02 by LAB.P ELN Not Available [address] [place], [address] 04/02/2024 15:03:24 04/02/20 24 04/02/2024 BASIC METAB OLIC PANEL estimated GFR 10.81 mL/min /1.73m 2 The eGFR is calcu lated from a serum creat inine using the CKD-E PI 2020 equat ion. Other varia bles requi red for the equat ion are gende r and age; this equat ion does not inclu de a race coeff icien t. This equat ion has simil ar overa ll perfo rmanc e to previ ous equat ions excep t value s may diffe r, in parti cular , in patie nts with highe r value s of eGFR and young er-ag ed adult s. Not Available [address] [place], [address] 04/02/2024 15:03:24 04/02/20 24 04/02/2024 BASIC METAB OLIC PANEL sodium 139 mmol/ L 136-14 5 normal Not Available [address] [place], [address] 04/02/2024 15:03:24 04/02/20 24 04/02/2024 BASIC METAB OLIC PANEL potassium 4.8 mmol/ L 3.5-5. 1 normal Not Available [address] [place], [address] 04/02/2024 15:03:24 04/02/20 24 04/02/2024 BASIC METAB OLIC PANEL chloride 106 mmol/ L 98-107 normal Not Available [address] [place], [address] 04/02/2024 15:03:24 04/02/20 24 04/02/2024 BASIC METAB OLIC PANEL CO2 21.2 mmol/ L 21.0-3 2.0 normal Not Available [address] [place], [address] 04/02/2024 15:03:24 04/02/20 24 04/02/2024 BASIC METAB OLIC PANEL anion gap 11.8 mmol/ L 3-11 high Not Available [address] [place], [address] 04/02/2024 15:03:24 04/02/20 24 04/02/2024 MAGNE SIUM magnesium 2.4 mg/dL 1.8-2. 4 normal Not Available [address] [place], [address] 04/02/2024 15:03:25 04/02/20 24 04/03/2024 BLOOD CULTU RE ( AGE => 11 YRS) blood culture ( age => 11 yrs) Blood Cultu re ( Age => 11 Yrs) NO GROWT H 24 HOURS Not Available [address] [place], [address] 04/03/2024 13:11:05 04/02/20 24 04/03/2024 BLOOD CULTU RE ( AGE => 11 YRS) blood culture ( age => 11 yrs) Blood Cultu re ( Age => 11 Yrs) NO GROWT H 24 HOURS Not Available [address] [place], [address] 04/03/2024 13:11:07 04/02/20 24 04/04/2024 BLOOD CULTU RE ( AGE => 11 YRS) blood culture ( age => 11 yrs) Blood Cultu re ( Age => 11 Yrs) NO GROWT H 48 HOURS Not Available [address] [place], [address] 04/04/2024 13:12:14 04/02/20 24 04/04/2024 BLOOD CULTU RE ( AGE => 11 YRS) blood culture ( age => 11 yrs) Blood Cultu re ( Age => 11 Yrs) NO GROWT H 48 HOURS Not Available [address] [place], [address] 04/04/2024 13:12:15 04/02/20 24 04/05/2024 BLOOD CULTU RE ( AGE => 11 YRS) blood culture ( age => 11 yrs) Blood Cultu re ( Age => 11 Yrs) NO GROWT H 72 HOURS Not Available [address] [place], [address] 04/05/2024 13:11:37 04/02/20 24 04/05/2024 BLOOD CULTU RE ( AGE => 11 YRS) blood culture ( age => 11 yrs) Blood Cultu re ( Age => 11 Yrs) NO GROWT H 72 HOURS Not Available [address] [place], [address] 04/05/2024 13:11:38 04/02/20 24 04/06/2024 BLOOD CULTU RE ( AGE => 11 YRS) blood culture ( age => 11 yrs) Blood Cultu re ( Age => 11 Yrs) NO GROWT H 96 HOURS Not Available [address] [place], [address] 04/06/2024 13:10:19 04/02/20 24 04/06/2024 BLOOD CULTU RE ( AGE => 11 YRS) blood culture ( age => 11 yrs) Blood Cultu re ( Age => 11 Yrs) NO GROWT H 96 HOURS Not Available [address] [place], [address] 04/06/2024 13:13:21 04/02/20 24 04/07/2024 BLOOD CULTU RE ( AGE => 11 YRS) blood culture ( age => 11 yrs) Blood Cultu re ( Age => 11 Yrs) NO GROWT H 120 HOURS Not Available [address] [place], [address] 04/07/2024 13:11:52 04/02/20 24 04/07/2024 BLOOD CULTU RE ( AGE => 11 YRS) blood culture ( age => 11 yrs) Blood Cultu re ( Age => 11 Yrs) NO GROWT H 120 HOURS Not Available [address] [place], [address] 04/07/2024 13:12:52 04/03/20 24 04/03/2024 COMPL ETE BLOOD COUNT W/DIF F WBC 5.89 10_3/ uL 4.4-10 .8 normal Not Available [address] [place], [address] 04/03/2024 07:09:26 04/03/20 24 04/03/2024 COMPL ETE BLOOD COUNT W/DIF F RBC 4.35 10_6/ uL 4.36-5 .78 low Not Available [address] [place], [address] 04/03/2024 07:09:26 04/03/20 24 04/03/2024 COMPL ETE BLOOD COUNT W/DIF F HGB 12.5 g/dL 13.5-1 7.5 low Not Available [address] [place], [address] 04/03/2024 07:09:26 04/03/20 24 04/03/2024 COMPL ETE BLOOD COUNT W/DIF F HCT 36.0 % 40.0-5 0.0 low Not Available [address] [place], [address] 04/03/2024 07:09:26 04/03/20 24 04/03/2024 COMPL ETE BLOOD COUNT W/DIF F MCV 83 fL 80-95 normal Not Available Mildred [address] [place], [address] 04/03/2024 07:09:26 04/03/20 24 04/03/2024 COMPL ETE BLOOD COUNT W/DIF F MCH 28.7 pg 27.0-3 3.0 normal Not Available [address] [place], [address] 04/03/2024 07:09:26 04/03/20 24 04/03/2024 COMPL ETE BLOOD COUNT W/DIF F MCHC 34.7 % 32.0-3 6.0 normal Not Available [address] [place], [address] 04/03/2024 07:09:26 04/03/20 24 04/03/2024 COMPL ETE BLOOD COUNT W/DIF F RDW 13.3 % 11.8-1 4.1 normal Not Available [address] [place], [address] 04/03/2024 07:09:26 04/03/20 24 04/03/2024 COMPL ETE BLOOD COUNT W/DIF F platelet count 184 10_3/ uL 130-40 0 normal Not Available [address] [place], [address] 04/03/2024 07:09:26 04/03/20 24 04/03/2024 COMPL ETE BLOOD COUNT W/DIF F MPV 10.1 fL 8.0-11 .0 normal Not Available [address] [place], [address] 04/03/2024 07:09:26 04/03/20 24 04/03/2024 COMPL ETE BLOOD COUNT W/DIF F neutrophils % 71.9 % Not Available [address] [place], [address] 04/03/2024 07:09:26 04/03/20 24 04/03/2024 COMPL ETE BLOOD COUNT W/DIF F lymphocytes % 18.0 % Not Available [address] [place], [address] 04/03/2024 07:09:26 04/03/20 24 04/03/2024 COMPL ETE BLOOD COUNT W/DIF F monocytes % 7.3 % Not Available [address] [place], [address] 04/03/2024 07:09:26 04/03/20 24 04/03/2024 COMPL ETE BLOOD COUNT W/DIF F eosinophils % 2.2 % Not Available [address] [place], [address] 04/03/2024 07:09:26 04/03/20 24 04/03/2024 COMPL ETE BLOOD COUNT W/DIF F basophils % 0.3 % Not Available [address] [place], [address] 04/03/2024 07:09:26 04/03/20 24 04/03/2024 COMPL ETE BLOOD COUNT W/DIF F immature grans % 0.3 % Not Available [address] [place], [address] 04/03/2024 07:09:26 04/03/20 24 04/03/2024 COMPL ETE BLOOD COUNT W/DIF F nucleated RBC 0.0 % 0.0-0. 3 normal Not Available [address] [place], [address] 04/03/2024 07:09:26 04/03/20 24 04/03/2024 COMPL ETE BLOOD COUNT W/DIF F absolute neutrophil count 4.23 10_3/ uL 1.2-6. 7 normal Not Available [address] [place], [address] 04/03/2024 07:09:26 04/03/20 24 04/03/2024 COMPL ETE BLOOD COUNT W/DIF F absolute lymphocyte count 1.06 10_3/ uL 1.2-3. 4 low Not Available [address] [place], [address] 04/03/2024 07:09:26 04/03/20 24 04/03/2024 COMPL ETE BLOOD COUNT W/DIF F absolute monocyte count 0.43 10_3/ uL 0.1-0. 8 normal Not Available [address] [place], [address] 04/03/2024 07:09:26 04/03/20 24 04/03/2024 COMPL ETE BLOOD COUNT W/DIF F absolute eosinophil count 0.13 10_3/ uL 0.0-0. 7 normal Not Available [address] [place], [address] 04/03/2024 07:09:26 04/03/2004/03/2024 COMPL ETE BLOOD COUNT W/DIF F absolute basophil count 0.02 10_3/ uL 0.0-0. 2 normal Not Available [address] [place], [address] 04/03/2024 07:09:26 04/03/2004/03/2024 BASIC METAB OLIC PANEL calcium 8.5 mg/dL 8.5-10 .1 normal Not Available [address] [place], [address] 04/03/2024 07:28:28 04/03/2004/03/2024 BASIC METAB OLIC PANEL glucose 263 mg/dL 74-106 high Not Available Mildred mendoza [address] [place], [address] 04/03/2024 07:28:28 04/03/2004/03/2024 BASIC METAB OLIC PANEL BUN 94 mg/dL 7-18 panic high Criti riddhi value repor santy to and readb ack from JULIA RENEE, RN at 04/03 by LAB.G ERJ Not Available [address] [place], [address] 04/03/2024 07:28:28 04/03/20 24 04/03/2024 BASIC METAB OLIC PANEL creatinine 4.2 mg/dL 0.70-1 .30 panic high Criti riddhi value repor santy to and readb ack from JULIA RENEE, RN at 04/03 by LAB.G ERJ Not Available [address] [place], [address] 04/03/2024 07:28:28 04/03/2004/03/2024 BASIC METAB OLIC PANEL estimated GFR 15.59 mL/min /1.73m 2 The eGFR is calcu lated from a serum creat inine using the CKD-E PI 2020 equat ion. Other varia bles requi red for the equat ion are gende r and age; this equat ion does not inclu de a race coeff icien t. This equat ion has simil ar overa ll perfo rmanc e to previ ous equat ions excep t value s may diffe r, in parti cular , in patie nts with highe r value s of eGFR and young er-ag ed adult s. Not Available [address] [place], [address] 04/03/2024 07:28:28 04/03/20 24 04/03/2024 BASIC METAB OLIC PANEL sodium 132 mmol/ L 136-14 5 low Not Available [address] [place], [address] 04/03/2024 07:28:28 04/03/2004/03/2024 BASIC METAB OLIC PANEL potassium 7.3 mmol/ L 3.5-5. 1 panic high Criti riddhi value repor santy to and readb ack from JULIA RENEE RN at 0723 04/03 by LAB.G CHARLIE hoffman verif ied by baljinder hoffman vera sis. Not Available [address] [place], [address] 04/03/2024 07:28:28 04/03/2004/03/2024 BASIC METAB OLIC PANEL chloride 102 mmol/ L 98-107 normal Not Available [address] [place], [address] 04/03/2024 07:28:28 04/03/2004/03/2024 BASIC METAB OLIC PANEL CO2 20.7 mmol/ L 21.0-3 2.0 low Not Available [address] [place], [address] 04/03/2024 07:28:28 04/03/20 24 04/03/2024 BASIC METAB OLIC PANEL anion gap 9.3 mmol/ L 3-11 normal Not Available [address] [place], [address] 04/03/2024 07:28:28 04/03/20 24 04/03/2024 HEMOG LOBIN A1C hemoglobin A1C 10.4 % <5.7 high Refer ence Range s <5.7 Zoraida l 5.7-6 .4% Predi abete s 6.5% or great er Diagn ostic for diabe angie (if confi rmed) Refer ences : 1. Ameri can Diabe angie Assoc iatio n. Clas sific ation and Diagn osis of Diabe angie. Diabe angie Care 2019 2(Sup pleme nt 1):S1 3-s28 . Not Available [address] [place], [address] 04/03/2024 07:54:31 04/03/20 24 04/03/2024 POTAS SIUM potassium 7.9 mmol/ L 3.5-5. 1 panic high Criti riddhi value repor santy to and readb ack from [facility] Marlo RENEE, RN at 1008 04/03 by LAB.G ERJ Not Available [address] [place], [address] 04/03/2024 10:11:03 04/03/20 24 04/03/2024 BASIC METAB OLIC PANEL calcium 8.9 mg/dL 8.5-10 .1 normal Not Available [address] [place], [address] 04/03/2024 13:11:08 04/03/20 24 04/03/2024 BASIC METAB OLIC PANEL glucose 426 mg/dL 74-106 high Not Available Mildred mendoza [address] [facility] [place], [address] 04/03/2024 13:11:08 04/03/20 24 04/03/2024 BASIC METAB OLIC PANEL BUN 95 mg/dL 7-18 panic high Criti riddhi value repor santy to and readb ack from [facility] RENEE RN MS at 1306 04/03 by LAB.C AMS Resul t verif ied by repea t vera sis Not Available [address] [facility] [place], [address] 04/03/2024 13:11:08 04/03/20 24 04/03/2024 BASIC METAB OLIC PANEL creatinine 3.8 mg/dL 0.70-1 .30 panic high Criti riddhi value repor santy to and readb ack from [facility] Marlo RENEE RN MS at 1306 04/03 by LAB.C AMS Resul t verif ied by repea t vera sis Not Available [address] [place], [address] 04/03/2024 13:11:08 04/03/20 24 04/03/2024 BASIC METAB OLIC PANEL estimated GFR 17.58 mL/min /1.73m 2 The eGFR is calcu lated from a serum creat inine using the CKD-E PI 2020 equat ion. Other varia bles requi red for the equat ion are gende r and age; this equat ion does not inclu de a race coeff icien t. This equat ion has simil ar overa ll perfo rmanc e to previ ous equat ions excep t value s may diffe r, in parti cular , in patie nts with highe r value s of eGFR and young er-ag ed adult s. Not Available [address] [place], [address] 04/03/2024 13:11:08 04/03/20 24 04/03/2024 BASIC METAB OLIC PANEL sodium 130 mmol/ L 136-14 5 low Not Available [address] [place], [address] 04/03/2024 13:11:08 04/03/2004/03/2024 BASIC METAB OLIC PANEL potassium 7.8 mmol/ L 3.5-5. 1 panic high Criti riddhi value repor santy to and readb ack from [facility] Marlo RENEE RN MS at 1306 04/03 by LAB.C AMS Resul t verif ied by repea t vera sis Not Available [address] [place], [address] 04/03/2024 13:11:08 04/03/20 24 04/03/2024 BASIC METAB OLIC PANEL chloride 102 mmol/ L 98-107 normal Not Available [address] [place], [address] 04/03/2024 13:11:08 04/03/20 24 04/03/2024 BASIC METAB OLIC PANEL CO2 21.0 mmol/ L 21.0-3 2.0 normal Not Available [address] [place], [address] 04/03/2024 13:11:08 04/03/20 24 04/03/2024 BASIC METAB OLIC PANEL anion gap 7.0 mmol/ L 3-11 normal Not Available [address] [place], [address] 04/03/2024 13:11:08 04/03/20 24 04/03/2024 LAB ADD ON TEST lab add on test DONE Not Available [facility] [address] [place], [address] 04/03/2024 13:17:07 04/03/20 24 04/03/2024 BASIC METAB OLIC PANEL calcium 9.1 mg/dL 8.5-10 .1 normal Not Available [address] [place], [address] 04/03/2024 16:36:57 04/03/20 24 04/03/2024 BASIC METAB OLIC PANEL glucose 314 mg/dL 74-106 high Not Available Mildred mendoza [address] [place], [address] 04/03/2024 16:36:57 04/03/20 24 04/03/2024 BASIC METAB OLIC PANEL BUN 91 mg/dL 7-18 panic high Criti riddhi value repor santy to and readb ack from JULIA RENEE RN (MS) at 1633 04/03 by LAB.L AUT Not Available [address] [place], [address] 04/03/2024 16:36:57 04/03/20 24 04/03/2024 BASIC METAB OLIC PANEL creatinine 3.6 mg/dL 0.70-1 .30 panic high Criti riddhi value repor santy to and readb ack from JULIA RENEE RN (MS) at 1633 04/03 by LAB.L AUT Not Available [address] [place], [address] 04/03/2024 16:36:57 04/03/20 24 04/03/2024 BASIC METAB OLIC PANEL estimated GFR 18.76 mL/min /1.73m 2 The eGFR is calcu lated from a serum creat inine using the CKD-E PI 2020 equat ion. Other varia bles requi red for the equat ion are gende r and age; this equat ion does not inclu de a race coeff icien t. This equat ion has simil ar overa ll perfo rmanc e to previ ous equat ions excep t value s may diffe r, in parti cular , in patie nts with highe r value s of eGFR and young er-ag ed adult s. Not Available [address] [place], [address] 04/03/2024 16:36:57 04/03/2004/03/2024 BASIC METAB OLIC PANEL sodium 133 mmol/ L 136-14 5 low Not Available [address] [place], [address] 04/03/2024 16:36:57 04/03/2004/03/2024 BASIC METAB OLIC PANEL potassium 6.9 mmol/ L 3.5-5. 1 panic high Criti riddhi value repor santy to and readb ack from JULIA RENEE RN (MS) at 1633 04/03 by LAB.L AUT Not Available [address] [place], [address] 04/03/2024 16:36:57 04/03/20 24 04/03/2024 BASIC METAB OLIC PANEL chloride 102 mmol/ L 98-107 normal Not Available [address] [place], [address] 04/03/2024 16:36:57 04/03/20 24 04/03/2024 BASIC METAB OLIC PANEL CO2 22.8 mmol/ L 21.0-3 2.0 normal Not Available [address] [place], [address] 04/03/2024 16:36:57 04/03/20 24 04/03/2024 BASIC METAB OLIC PANEL anion gap 8.2 mmol/ L 3-11 normal Not Available [address] [place], [address] 04/03/2024 16:36:57 04/03/20 24 04/03/2024 BASIC METAB OLIC PANEL calcium 8.8 mg/dL 8.5-10 .1 normal Not Available [address] [place], [address] 04/03/2024 20:40:51 04/03/20 24 04/03/2024 BASIC METAB OLIC PANEL glucose 361 mg/dL 74-106 high Not Available Mildred mendoza [address] [place], [address] 04/03/2024 20:40:51 04/03/2004/03/2024 BASIC METAB OLIC PANEL BUN 86 mg/dL 7-18 panic high Criti riddhi value repor santy to and readb ack from GILDA HOWELL RN AT M/S at 04/03 by LAB.M ARC Not Available [address] [place], [address] 04/03/2024 20:40:51 04/03/2004/03/2024 BASIC METAB OLIC PANEL creatinine 3.5 mg/dL 0.70-1 .30 high Not Available [address] [place], [address] 04/03/2024 20:40:51 04/03/2004/03/2024 BASIC METAB OLIC PANEL estimated GFR 19.40 mL/min /1.73m 2 The eGFR is calcu lated from a serum creat inine using the CKD-E PI 2020 equat ion. Other varia bles requi red for the equat ion are gende r and age; this equat ion does not inclu de a race coeff icien t. This equat ion has simil ar overa ll perfo rmanc e to previ ous equat ions excep t value s may diffe r, in parti cular , in patie nts with highe r value s of eGFR and young er-ag ed adult s. Not Available [address] [place], [address] 04/03/2024 20:40:51 04/03/20 24 04/03/2024 BASIC METAB OLIC PANEL sodium 133 mmol/ L 136-14 5 low Not Available [address] [place], [address] 04/03/2024 20:40:51 04/03/20 24 04/03/2024 BASIC METAB OLIC PANEL potassium 6.1 mmol/ L 3.5-5. 1 panic high Criti riddhi value repor santy to and readb ack from GILDA HOWELL RN AT M/S at 04/03 by LAB.M ARC Not Available [address] [place], [address] 04/03/2024 20:40:51 04/03/20 24 04/03/2024 BASIC METAB OLIC PANEL chloride 101 mmol/ L 98-107 normal Not Available [address] [place], [address] 04/03/2024 20:40:51 04/03/20 24 04/03/2024 BASIC METAB OLIC PANEL CO2 23.4 mmol/ L 21.0-3 2.0 normal Not Available [address] [place], [address] 04/03/2024 20:40:51 04/03/20 24 04/03/2024 BASIC METAB OLIC PANEL anion gap 8.6 mmol/ L 3-11 normal Not Available [address] [place], [address] 04/03/2024 20:40:51 04/03/20 24 04/03/2024 PSA, SCREE NOVA PSA, screening 0.4 NG/mL <=3.5 NOTE: Serum PSA brian ntrat ion shoul d not be inter prete d as absol yolanda evide nce for the prese nce or absen ce of kristine diaz se. Assay ed on Sieme ns [facility] XPT using chemi lumin escen t techn ology . Value s obtai maxine by using diffe rent assay metho ds canno t be used inter ruffin eably . Test perfo rmed or refer red by [facility] [address] [place] [address] Not Available [address] [place], [address] 04/06/2024 09:07:14 04/04/20 24 04/04/2024 BASIC METAB OLIC PANEL calcium 8.8 mg/dL 8.5-10 .1 normal Not Available [address] [place], [address] 04/04/2024 07:13:43 04/04/20 24 04/04/2024 BASIC METAB OLIC PANEL glucose 303 mg/dL 74-106 high Not Available Mildred mendoza [address] [place], [address] 04/04/2024 07:13:43 04/04/20 24 04/04/2024 BASIC METAB OLIC PANEL BUN 77 mg/dL 7-18 high Not Available Mildred mendoza [address] [place], [address] 04/04/2024 07:13:43 04/04/20 24 04/04/2024 BASIC METAB OLIC PANEL creatinine 3.1 mg/dL 0.70-1 .30 high Not Available [address] [place], [address] 04/04/2024 07:13:43 04/04/20 24 04/04/2024 BASIC METAB OLIC PANEL estimated GFR 22.44 mL/min /1.73m 2 The eGFR is calcu lated from a serum creat inine using the CKD-E PI 2020 equat ion. Other varia bles requi red for the equat ion are gende r and age; this equat ion does not inclu de a race coeff icien t. This equat ion has simil ar overa ll perfo rmanc e to previ ous equat ions excep t value s may diffe r, in parti cular , in patie nts with highe r value s of eGFR and young er-ag ed adult s. Not Available [address] [place], [address] 04/04/2024 07:13:43 04/04/20 24 04/04/2024 BASIC METAB OLIC PANEL sodium 135 mmol/ L 136-14 5 low Not Available [address] [place], [address] 04/04/2024 07:13:43 04/04/20 24 04/04/2024 BASIC METAB OLIC PANEL potassium 5.8 mmol/ L 3.5-5. 1 high Not Available [address] [place], [address] 04/04/2024 07:13:43 04/04/20 24 04/04/2024 BASIC METAB OLIC PANEL chloride 104 mmol/ L 98-107 normal Not Available [address] [place], [address] 04/04/2024 07:13:43 04/04/20 24 04/04/2024 BASIC METAB OLIC PANEL CO2 22.6 mmol/ L 21.0-3 2.0 normal Not Available [address] [place], [address] 04/04/2024 07:13:43 04/04/20 24 04/04/2024 BASIC METAB OLIC PANEL anion gap 8.4 mmol/ L 3-11 normal Not Available [address] [place], [address] 04/04/2024 07:13:43 04/04/20 24 04/04/2024 BASIC METAB OLIC PANEL calcium 9.0 mg/dL 8.5-10 .1 normal Not Available [address] [place], [address] 04/04/2024 14:17:20 04/04/20 24 04/04/2024 BASIC METAB OLIC PANEL glucose 402 mg/dL 74-106 high Not Available iMldred mendoza [address] [place], [address] 04/04/2024 14:17:20 04/04/20 24 04/04/2024 BASIC METAB OLIC PANEL BUN 72 mg/dL 7-18 high Not Available Mildred mendoza [address] [place], [address] 04/04/2024 14:17:20 04/04/20 24 04/04/2024 BASIC METAB OLIC PANEL creatinine 2.9 mg/dL 0.70-1 .30 high Not Available [address] [place], [address] 04/04/2024 14:17:20 04/04/20 24 04/04/2024 BASIC METAB OLIC PANEL estimated GFR 24.31 mL/min /1.73m 2 The eGFR is calcu lated from a serum creat inine using the CKD-E PI 2020 equat ion. Other varia bles requi red for the equat ion are gende r and age; this equat ion does not inclu de a race coeff icien t. This equat ion has simil ar overa ll perfo rmanc e to previ ous equat ions excep t value s may diffe r, in parti cular , in patie nts with highe r value s of eGFR and young er-ag ed adult s. Not Available [address] [place], [address] 04/04/2024 14:17:20 04/04/2004/04/2024 BASIC METAB OLIC PANEL sodium 135 mmol/ L 136-14 5 low Not Available [address] [place], [address] 04/04/2024 14:17:20 04/04/2004/04/2024 BASIC METAB OLIC PANEL potassium 5.5 mmol/ L 3.5-5. 1 high Not Available [address] [place], [address] 04/04/2024 14:17:20 04/04/20 24 04/04/2024 BASIC METAB OLIC PANEL chloride 102 mmol/ L 98-107 normal Not Available [address] [place], [address] 04/04/2024 14:17:20 04/04/20 24 04/04/2024 BASIC METAB OLIC PANEL CO2 24.4 mmol/ L 21.0-3 2.0 normal Not Available [address] [place], [address] 04/04/2024 14:17:20 04/04/2004/04/2024 BASIC METAB OLIC PANEL anion gap 8.6 mmol/ L 3-11 normal Not Available [address] [place], [address] 04/04/2024 14:17:20 04/04/20 24 04/04/2024 COMPL ETE BLOOD COUNT NO DIFF WBC 4.67 10_3/ uL 4.4-10 .8 normal Not Available [address] [place], [address] 04/04/2024 20:11:38 04/04/20 24 04/04/2024 COMPL ETE BLOOD COUNT NO DIFF RBC 4.23 10_6/ uL 4.36-5 .78 low Not Available [address] [place], [address] 04/04/2024 20:11:38 04/04/20 24 04/04/2024 COMPL ETE BLOOD COUNT NO DIFF HGB 12.2 g/dL 13.5-1 7.5 low Not Available [address] [place], [address] 04/04/2024 20:11:38 04/04/20 24 04/04/2024 COMPL ETE BLOOD COUNT NO DIFF HCT 35.4 % 40.0-5 0.0 low Not Available [address] [place], [address] 04/04/2024 20:11:38 04/04/20 24 04/04/2024 COMPL ETE BLOOD COUNT NO DIFF MCV 84 fL 80-95 normal Not Available [address] [place], [address] 04/04/2024 20:11:38 04/04/20 24 04/04/2024 COMPL ETE BLOOD COUNT NO DIFF MCH 28.8 pg 27.0-3 3.0 normal Not Available [address] [place], [address] 04/04/2024 20:11:38 04/04/20 24 04/04/2024 COMPL ETE BLOOD COUNT NO DIFF MCHC 34.5 % 32.0-3 6.0 normal Not Available [address] [place], [address] 04/04/2024 20:11:38 04/04/20 24 04/04/2024 COMPL ETE BLOOD COUNT NO DIFF RDW 13.3 % 11.8-1 4.1 normal Not Available [address] [place], [address] 04/04/2024 20:11:38 04/04/20 24 04/04/2024 COMPL ETE BLOOD COUNT NO DIFF platelet count 165 10_3/ uL 130-40 0 normal Not Available [address] [place], [address] 04/04/2024 20:11:38 04/04/20 24 04/04/2024 COMPL ETE BLOOD COUNT NO DIFF MPV 9.4 fL 8.0-11 .0 normal Not Available [address] [place], [address] 04/04/2024 20:11:38 04/05/20 24 04/05/2024 BASIC METAB OLIC PANEL calcium 8.8 mg/dL 8.5-10 .1 normal Not Available [address] [place], [address] 04/05/2024 07:09:10 04/05/20 24 04/05/2024 BASIC METAB OLIC PANEL glucose 224 mg/dL 74-106 high Not Available Mildred mendoza [address] [place], [address] 04/05/2024 07:09:10 04/05/20 24 04/05/2024 BASIC METAB OLIC PANEL BUN 57 mg/dL 7-18 high Not Available Mildred [address] [place], [address] 04/05/2024 07:09:10 04/05/20 24 04/05/2024 BASIC METAB OLIC PANEL creatinine 2.3 mg/dL 0.70-1 .30 high Not Available [address] [place], [address] 04/05/2024 07:09:10 04/05/20 24 04/05/2024 BASIC METAB OLIC PANEL estimated GFR 32.11 mL/min /1.73m 2 The eGFR is calcu lated from a serum creat inine using the CKD-E PI 2020 equat ion. Other varia bles requi red for the equat ion are gende r and age; this equat ion does not inclu de a race coeff icien t. This equat ion has simil ar overa ll perfo rmanc e to previ ous equat ions excep t value s may diffe r, in parti cular , in patie nts with highe r value s of eGFR and young er-ag ed adult s. Not Available [address] [place], [address] 04/05/2024 07:09:10 04/05/20 24 04/05/2024 BASIC METAB OLIC PANEL sodium 139 mmol/ L 136-14 5 normal Not Available [address] [place], [address] 04/05/2024 07:09:10 04/05/20 24 04/05/2024 BASIC METAB OLIC PANEL potassium 4.9 mmol/ L 3.5-5. 1 normal Not Available [address] [place], [address] 04/05/2024 07:09:10 04/05/20 24 04/05/2024 BASIC METAB OLIC PANEL chloride 106 mmol/ L 98-107 normal Not Available [address] [place], [address] 04/05/2024 07:09:10 04/05/20 24 04/05/2024 BASIC METAB OLIC PANEL CO2 22.2 mmol/ L 21.0-3 2.0 normal Not Available [address] [place], [address] 04/05/2024 07:09:10 04/05/20 24 04/05/2024 BASIC METAB OLIC PANEL anion gap 10.8 mmol/ L 3-11 normal Not Available [address] [place], [address] 04/05/2024 07:09:10 04/05/20 24 04/05/2024 BASIC METAB OLIC PANEL calcium 9.2 mg/dL 8.5-10 .1 normal Not Available [address] [place], [address] 04/05/2024 14:20:39 04/05/20 24 04/05/2024 BASIC METAB OLIC PANEL glucose 350 mg/dL 74-106 high Not Available Mildred mendoza [address] [place], [address] 04/05/2024 14:20:39 04/05/20 24 04/05/2024 BASIC METAB OLIC PANEL BUN 52 mg/dL 7-18 high Not Available Mildred mendoza [address] [place], [address] 04/05/2024 14:20:39 04/05/20 24 04/05/2024 BASIC METAB OLIC PANEL creatinine 2.2 mg/dL 0.70-1 .30 high Not Available [address] [place], [address] 04/05/2024 14:20:39 04/05/20 24 04/05/2024 BASIC METAB OLIC PANEL estimated GFR 33.87 mL/min /1.73m 2 The eGFR is calcu lated from a serum creat inine using the CKD-E PI 2020 equat ion. Other varia bles requi red for the equat ion are gende r and age; this equat ion does not inclu de a race coeff icien t. This equat ion has simil ar overa ll perfo rmanc e to previ ous equat ions excep t value s may diffe r, in parti cular , in patie nts with highe r value s of eGFR and young er-ag ed adult s. Not Available [address] [place], [address] 04/05/2024 14:20:39 04/05/20 24 04/05/2024 BASIC METAB OLIC PANEL sodium 136 mmol/ L 136-14 5 normal Not Available [address] [place], [address] 04/05/2024 14:20:39 04/05/20 24 04/05/2024 BASIC METAB OLIC PANEL potassium 5.3 mmol/ L 3.5-5. 1 high Not Available [address] [place], [address] 04/05/2024 14:20:39 04/05/20 24 04/05/2024 BASIC METAB OLIC PANEL chloride 102 mmol/ L 98-107 normal Not Available [address] [place], [address] 04/05/2024 14:20:39 04/05/20 24 04/05/2024 BASIC METAB OLIC PANEL CO2 24.3 mmol/ L 21.0-3 2.0 normal Not Available [address] [place], [address] 04/05/2024 14:20:39 04/05/20 24 04/05/2024 BASIC METAB OLIC PANEL anion gap 9.7 mmol/ L 3-11 normal Not Available [address] [place], [address] 04/05/2024 14:20:39 04/06/20 24 04/06/2024 COMPL ETE BLOOD COUNT NO DIFF WBC 5.77 10_3/ uL 4.4-10 .8 normal Not Available [address] [place], [address] 04/06/2024 07:12:32 04/06/20 24 04/06/2024 COMPL ETE BLOOD COUNT NO DIFF RBC 4.25 10_6/ uL 4.36-5 .78 low Not Available [address] [place], [address] 04/06/2024 07:12:32 04/06/20 24 04/06/2024 COMPL ETE BLOOD COUNT NO DIFF HGB 12.3 g/dL 13.5-1 7.5 low Not Available [address] [place], [address] 04/06/2024 07:12:32 04/06/20 24 04/06/2024 COMPL ETE BLOOD COUNT NO DIFF HCT 34.5 % 40.0-5 0.0 low Not Available [address] [place], [address] 04/06/2024 07:12:32 04/06/20 24 04/06/2024 COMPL ETE BLOOD COUNT NO DIFF MCV 81 fL 80-95 normal Not Available [address] [place], [address] 04/06/2024 07:12:32 04/06/20 24 04/06/2024 COMPL ETE BLOOD COUNT NO DIFF MCH 28.9 pg 27.0-3 3.0 normal Not Available [address] [place], [address] 04/06/2024 07:12:32 04/06/20 24 04/06/2024 COMPL ETE BLOOD COUNT NO DIFF MCHC 35.7 % 32.0-3 6.0 normal Not Available [address] [place], [address] 04/06/2024 07:12:32 04/06/20 24 04/06/2024 COMPL ETE BLOOD COUNT NO DIFF RDW 13.5 % 11.8-1 4.1 normal Not Available [address] [place], [address] 04/06/2024 07:12:32 04/06/20 24 04/06/2024 COMPL ETE BLOOD COUNT NO DIFF platelet count 169 10_3/ uL 130-40 0 normal Not Available [address] [place], [address] 04/06/2024 07:12:32 04/06/20 24 04/06/2024 COMPL ETE BLOOD COUNT NO DIFF MPV 9.5 fL 8.0-11 .0 normal Not Available [address] [place], [address] 04/06/2024 07:12:32 04/06/20 24 04/06/2024 BASIC METAB OLIC PANEL calcium 9.3 mg/dL 8.5-10 .1 normal Not Available [address] [place], [address] 04/06/2024 07:32:37 04/06/20 24 04/06/2024 BASIC METAB OLIC PANEL glucose 187 mg/dL 74-106 high Not Available Mildred mendoza [address] [place], [address] 04/06/2024 07:32:37 04/06/20 24 04/06/2024 BASIC METAB OLIC PANEL BUN 44 mg/dL 7-18 high Not Available Mildred mendoza [address] [place], [address] 04/06/2024 07:32:37 04/06/20 24 04/06/2024 BASIC METAB OLIC PANEL creatinine 2.1 mg/dL 0.70-1 .30 high Not Available [address] [place], [address] 04/06/2024 07:32:37 04/06/20 24 04/06/2024 BASIC METAB OLIC PANEL estimated GFR 35.81 mL/min /1.73m 2 The eGFR is calcu lated from a serum creat inine using the CKD-E PI 2020 equat ion. Other varia bles requi red for the equat ion are gende r and age; this equat ion does not inclu de a race coeff icien t. This equat ion has simil ar overa ll perfo rmanc e to previ ous equat ions excep t value s may diffe r, in parti cular , in patie nts with highe r value s of eGFR and young er-ag ed adult s. Not Available [address] [place], [address] 04/06/2024 07:32:37 04/06/20 24 04/06/2024 BASIC METAB OLIC PANEL sodium 142 mmol/ L 136-14 5 normal Not Available [address] [place], [address] 04/06/2024 07:32:37 04/06/20 24 04/06/2024 BASIC METAB OLIC PANEL potassium 5.0 mmol/ L 3.5-5. 1 normal Not Available [address] [place], [address] 04/06/2024 07:32:37 04/06/20 24 04/06/2024 BASIC METAB OLIC PANEL chloride 108 mmol/ L 98-107 high Not Available [address] [place], [address] 04/06/2024 07:32:37 04/06/20 24 04/06/2024 BASIC METAB OLIC PANEL CO2 24.7 mmol/ L 21.0-3 2.0 normal Not Available [address] [place], [address] 04/06/2024 07:32:37 04/06/20 24 04/06/2024 BASIC METAB OLIC PANEL anion gap 9.3 mmol/ L 3-11 normal Not Available [address] [place], [address] 04/06/2024 07:32:37 04/10/20 24 04/10/2024 COMPR EHENS HOWARD METAB OLIC PANEL calcium 9.7 mg/dL 8.5-10 .1 normal Not Available [address] [place], [address] 04/10/2024 21:27:43 04/10/20 24 04/10/2024 COMPR EHENS HOWARD METAB OLIC PANEL glucose 161 mg/dL 74-106 high Not Available Mildred mendoza [address] [place], [address] 04/10/2024 21:27:43 04/10/20 24 04/10/2024 COMPR EHENS HOWARD METAB OLIC PANEL BUN 49 mg/dL 7-18 high Not Available Mildred mendoza [address] [place], [address] 04/10/2024 21:27:43 04/10/20 24 04/10/2024 COMPR EHENS HOWARD METAB OLIC PANEL creatinine 2.3 mg/dL 0.70-1 .30 high Not Available [address] [place], [address] 04/10/2024 21:27:43 04/10/20 24 04/10/2024 COMPR EHENS HOWARD METAB OLIC PANEL estimated GFR 32.11 mL/min /1.73m 2 The eGFR is calcu lated from a serum creat inine using the CKD-E PI 2020 equat ion. Other varia bles requi red for the equat ion are gende r and age; this equat ion does not inclu de a race coeff icien t. This equat ion has simil ar overa ll perfo rmanc e to previ ous equat ions excep t value s may diffe r, in parti cular , in patie nts with highe r value s of eGFR and young er-ag ed adult s. Not Available [address] [place], [address] 04/10/2024 21:27:43 04/10/20 24 04/10/2024 COMPR EHENS HOWARD METAB OLIC PANEL total protein 7.6 g/dL 6.4-8. 2 normal Not Available [address] [place], [address] 04/10/2024 21:27:43 04/10/20 24 04/10/2024 COMPR EHENS HOWARD METAB OLIC PANEL albumin 3.9 g/dL 3.4-5. 0 normal Not Available [address] [place], [address] 04/10/2024 21:27:43 04/10/20 24 04/10/2024 COMPR EHENS HOWARD METAB OLIC PANEL bilirubin, total 0.37 mg/dL 0.2-1. 0 normal Not Available [address] [place], [address] 04/10/2024 21:27:43 04/10/20 24 04/10/2024 COMPR EHENS HOWARD METAB OLIC PANEL alk phos 87 U/L 46-116 normal Not Available [address] [place], [address] 04/10/2024 21:27:43 04/10/20 24 04/10/2024 COMPR EHENS HOWARD METAB OLIC PANEL sodium 138 mmol/ L 136-14 5 normal Not Available [address] [place], [address] 04/10/2024 21:27:43 04/10/20 24 04/10/2024 COMPR EHENS HOWARD METAB OLIC PANEL potassium 5.1 mmol/ L 3.5-5. 1 normal Not Available [address] [place], [address] 04/10/2024 21:27:43 04/10/20 24 04/10/2024 COMPR EHENS HOWARD METAB OLIC PANEL chloride 103 mmol/ L 98-107 normal Not Available [address] [place], [address] 04/10/2024 21:27:43 04/10/20 24 04/10/2024 COMPR EHENS HOWARD METAB OLIC PANEL CO2 25.7 mmol/ L 21.0-3 2.0 normal Not Available [address] [place], [address] 04/10/2024 21:27:43 04/10/20 24 04/10/2024 COMPR EHENS HOWARD METAB OLIC PANEL anion gap 9.3 mmol/ L 3-11 normal Not Available [address] [place], [address] 04/10/2024 21:27:43 04/10/20 24 04/10/2024 COMPR EHENS HOWARD METAB OLIC PANEL AST 28 U/L 15-37 normal Not Available Mildred mendoza [address] [place], [id number] 04/10/2024 21:27:43 04/10/20 24 04/10/2024 COMPR EHENS HOWARD METAB OLIC PANEL ALT 43 U/L 16-63 normal Not Available Mildred mendoza [address] [place], [id number] 04/10/2024 21:27:43 05/05/20 24 05/05/2024 BASIC METAB OLIC PANEL calcium 9.2 mg/dL 8.5-10 .1 normal Not Available [address] [place], [address] 05/05/2024 09:22:43 05/05/20 24 05/05/2024 BASIC METAB OLIC PANEL glucose 265 mg/dL 74-106 high Not Available Mildred mendoza [address] [place], [address] 05/05/2024 09:22:43 05/05/20 24 05/05/2024 BASIC METAB OLIC PANEL BUN 24 mg/dL 7-18 high Not Available Mildred mendoza [address] [place], [address] 05/05/2024 09:22:43 05/05/20 24 05/05/2024 BASIC METAB OLIC PANEL creatinine 1.8 mg/dL 0.70-1 .30 high Not Available [address] [place], [address] 05/05/2024 09:22:43 05/05/20 24 05/05/2024 BASIC METAB OLIC PANEL estimated GFR 43.09 mL/min /1.73m 2 The eGFR is calcu lated from a serum creat inine using the CKD-E PI 2020 equat ion. Other varia bles requi red for the equat ion are gende r and age; this equat ion does not inclu de a race coeff icien t. This equat ion has simil ar overa ll perfo rmanc e to previ ous equat ions excep t value s may diffe r, in parti cular , in patie nts with highe r value s of eGFR and young er-ag ed adult s. Not Available [address] [place], [id number] 05/05/2024 09:22:43 05/05/20 24 05/05/2024 BASIC METAB OLIC PANEL sodium 137 mmol/ L 136-14 5 normal Not Available [address] [place], [address] 05/05/2024 09:22:43 05/05/20 24 05/05/2024 BASIC METAB OLIC PANEL potassium 5.4 mmol/ L 3.5-5. 1 high Not Available [address] [place], [address] 05/05/2024 09:22:43 05/05/20 24 05/05/2024 BASIC METAB OLIC PANEL chloride 104 mmol/ L 98-107 normal Not Available [address] [place], [address] 05/05/2024 09:22:43 05/05/20 24 05/05/2024 BASIC METAB OLIC PANEL CO2 25.6 mmol/ L 21.0-3 2.0 normal Not Available [address] [place], [address] 05/05/2024 09:22:43 05/05/20 24 05/05/2024 BASIC METAB OLIC PANEL anion gap 7.4 mmol/ L 3-11 normal Not Available [address] [place], [address] 05/05/2024 09:22:43 05/05/20 24 05/05/2024 URIC ACID uric acid 7.3 mg/dL 3.5-7. 2 high Not Available [address] [place], [address] 05/05/2024 09:22:44 05/14/20 24 05/14/2024 BASIC METAB OLIC PANEL calcium 9.1 mg/dL 8.5-10 .1 normal Not Available [address] [place], [address] 05/14/2024 12:54:12 05/14/20 24 05/14/2024 BASIC METAB OLIC PANEL glucose 49 mg/dL 74-106 critical low Criti riddhi value GLUCO SE repor santy to and readb ack from NAYE Danielson RN ([facility]) at 1247 05/14 by LAB.B ONC Not Available [address] [place], [address] 05/14/2024 12:54:12 05/14/2005/14/2024 BASIC METAB OLIC PANEL BUN 23 mg/dL 7-18 high Not Available Mildred mendoza [address] [place], [address] 05/14/2024 12:54:12 05/14/2005/14/2024 BASIC METAB OLIC PANEL creatinine 1.9 mg/dL 0.70-1 .30 high Not Available [address] [place], [address] 05/14/2024 12:54:12 05/14/2005/14/2024 BASIC METAB OLIC PANEL estimated GFR 40.38 mL/min /1.73m 2 The eGFR is calcu lated from a serum creat inine using the CKD-E PI 2020 equat ion. Other varia bles requi red for the equat ion are gende r and age; this equat ion does not inclu de a race coeff icien t. This equat ion has simil ar overa ll perfo rmanc e to previ ous equat ions excep t value s may diffe r, in parti cular , in patie nts with highe r value s of eGFR and young er-ag ed adult s. Not Available [address] [place], [address] 05/14/2024 12:54:12 05/14/2005/14/2024 BASIC METAB OLIC PANEL sodium 142 mmol/ L 136-14 5 normal Not Available [address] [place], [address] 05/14/2024 12:54:12 05/14/2005/14/2024 BASIC METAB OLIC PANEL potassium 4.5 mmol/ L 3.5-5. 1 normal Not Available [address] [place], [address] 05/14/2024 12:54:12 05/14/2005/14/2024 BASIC METAB OLIC PANEL chloride 106 mmol/ L 98-107 normal Not Available [address] [place], [address] 05/14/2024 12:54:12 05/14/2005/14/2024 BASIC METAB OLIC PANEL CO2 27.1 mmol/ L 21.0-3 2.0 normal Not Available [address] [place], [address] 05/14/2024 12:54:12 05/14/2005/14/2024 BASIC METAB OLIC PANEL anion gap 8.9 mmol/ L 3-11 normal Not Available [address] [place], [address] 05/14/2024 12:54:12 02/26/2002/26/2024 x-ray imagi ng payton hoffman Name: Isiah Medrano Unit #: [id number] Loc: ER Orderi ng [facility] er: Hank Hernandez i, M.D. Accoun t #: [id number] Status : PRE ER Primar y Care Provid er: Janet Goins Date of Exam: Sex: M Admiss ion Date: : 1964 Age: 59 Exam(s ) XR KNEE RT 3V AP,LAT ,JARED EXAM: XR KNEE RT 3V AP,LAT ,JARED CLINIC AL HISTOR Y: right knee pain. TECHNI QUE: 2D digita l imagin g was perfor med. Three views. COMPAR TORIN: CR XR KNEE LT 4V AP,LAT ,JARED,P AT from 2022 FINDIN GS: BONES: No acute fractu re is presen t. No bony destru ctive lesion is seen. Patell ar Enthes ophyte . JOINTS : Modera te medial femora l tibial joint space narrow ing. Mild periar ticula r spurri ng, mainly at the patell ofemor al joint. A joint effusi on is seen. SOFT TISSUE : Normal . IMPRES JULI: Degene rative change s and joint effusi on. DATA REPOSI TORY: RADIAT ION DOSE DELIVE RED: Ordere d By: Hank Hernandez i, M.D. CC: ------ ------ ------ ------ ------ ------ ------ ------ ------ ------ ------ ------ - Dictat ed By: Carlos Ann 842 Transc ribed By: Jeff Cazares 43 This is privil eged, confid ential inform ation intend ed only for the provid er named. Any use or distri bution by any person other than this provid er is strict ly prohib ited. If you receiv e this report in error, please notify us immedi ately at and return the origin al report to us at the addres s above. Thank- you. [facility] [address] [place], [address] 02/26/2024 17:44:08 04/03/20 24 04/03/2024 ultra sound imagi ng repor t Patien t Name: Isiah Medrano Unit #: [id number] Loc: MS Redd metzger Provid er: Ana María Cummings M.D. Accoun t #: [id number] Status : ADM NANCY Primar y Care Provid er: Janet Goins Date of Exam: 10/26 Sex: M Admiss ion Date: : 1964 Age: 59 Exam(s ) US RENAL EXAM: US RENAL CLINIC AL HISTOR Y: azotem ia. TECHNI QUE: Burns scale, color and spectr al Dopple r were used. COMPAR TORIN: CT AORTIC ANEURY SM WO W CONTRA S from 2016 FINDIN GS: Right kidney : 10.2cm Echoge nicity : Normal Hydron ephros is: No Cyst or mass: 5 centim eter simple cyst upper pole right kidney . Nephro lithia sis: No Left kidney : 10.6cm Echoge nicity : Normal Hydron ephros is: No Cyst or mass: No Nephro lithia sis: No Bladde r:Norm al. Prevoi d vol:15 05 cc Postvo id vol:33 1 cc Liver noted to show fatty infilt ration . IMPRES JULI: Urinar y bladde r appear s normal but shows a large postvo id residu al. Right renal cyst. No eviden ce of hydron ephros is DATA REPOSI TORY: Ordere d By: Ana María Cummings M.D. CC: ------ ------ ------ ------ ------ ------ ------ ------ ------ ------ ------ ------ - Dictat ed By: Carlos Ann 1038 1038 Transc ribed By: Jeff Cazares 1038 This is privil eged, confid ential inform ation intend ed only for the provid er named. Any use or distri bution by any person other than this [facility] er is strict ly prohib ited. If you receiv e this report in error, please notify us immedi ately at and return the origin al report to us at the addres s above. Thank- you. [facility] [address] [place], [address] 04/03/2024 15:52:49 04/06/20 24 04/06/2024 ultra sound imagi ng repor t Patigopi t Name: Isiah Medrano Unit #: [id number] Loc: MS Rainey ng Provid er: Ana María Cummings M.D. Accoun t #: [id number] Status : ADM IN [facility] er: Janet Goins Date of Exam: 01/23 Sex: Lionel Magallanesiss ion Date: : 1964 Age: 59 ------ ------ --- APPROV ED REPORT ------ ------ -- EXAM: Compre hensiv e 2D, Dopple r, and color- flow Echoca rdiogr am Patien t Locati on: In-Pat ient Room/B ed: 226 Sonogr apher: Emerson Hassan RDCS (AE) Indica tions: Evalua te LV functi on, histor y of [place] Other Inform ation Techni jd limite d study due to body habitu s. Conclu juli Normal ventri cular wall thickn ess and chambe r size. Ejecti on fracti on 60%. Wall motion is normal Normal right ventri cular size and functi on Both atria are normal in size There is no struct ural or hemody namica lly signif icant valvul ar diseas e Wall motion Left Ventri génesis The left ventri génesis is normal size. The left ventri cular systol ic functi on is normal . The left ventri cular ejecti on fracti on is within the normal range. There is normal left ventri cular wall thickn ess. There is normal LV segmen cassie wall motion . There is no ventri cular septal defect visual ized. LVEF is 60%. Right Ventri génesis The right ventri génesis is normal size. The right ventri cular systol ic functi on is normal . Atria The left atrium size is normal . The right atrium size is normal . The intera trial septum is intact with no eviden ce for an atrial septal defect . Aortic Valve The aortic valve is normal in struct ure. There is no aortic valvul ar stenos is. No aortic regurg itatio n is presen t. Mitral Valve The mitral valve is normal in struct ure. No eviden ce of mitral valve stenos is. Trace mitral regurg itatio n. Tricus pid Valve The tricus pid valve is normal in struct ure. There is no tricus pid valve stenos is. Trace tricus pid regurg itatio n. Unable to assess PA pressu re. Pulmon ic Valve Pulmon ic valve is not well visual ized. There is no pulmon ic valvul ar regurg itatio n. Great Vessel s The aortic root is normal in size. The ascend ing aorta is normal in size. Aortic arch is normal in calibe r. IVC is normal in size and collap ses >50% with inspir ation. Perica rdium There is no perica rdial effusi on. 2D Dimens ions IVSD d PLAX 0.76 cm M: 0.6-1. 2 Ao Root d 3.28 cm M: 3.1 - 3.7 LVPW d PLAX 0.81 cm M: 0.6 - 1.2 Ao Asc Diam d 3.30 cm M: 2.6 - 3.4 LVID d PLAX 4.35 cm M: 4.2 - 5.8 LVDs 2.96 cm M: 2.5 - 4.0 LV EF Teichh olz 60.3 % FS 31.95 % LV EDV (Teich ) 85.4 mL LV ESV (Teich ) 33.9 mL Stroke Vol Index (Teich ) 23.96 M-Mode TAPSE 2.17 cm (M/F) >1.7 Auto EF LV EDV A4C 127.7 mL LV EDV A2C 69.7 mL LV EDV BP 94.9 mL LV ESV A4C 52.6 mL LV ESV A2C 27.6 mL LV ESV BP 38.5 mL LVEF(% ) A4C 58.8 % LVEF(% ) A2C 60.3 % LVEF(% ) BP 59.4 % LV SV A4C 75.0 ml LV SV A2C 42.1 ml LV SV BP 56.4 ml LV CO A4C 5.9 L/min LV CO A2C 3.4 L/min LV CO BP 4.6 L/min HR A4C 78.26 BPM HR A2C 81.08 BPM LV EDV Index (BP) LA Volume LA Length A4C 3.9 cm LA Length A2C 3.2 cm LA Area A4C s 9.58 cm2 LA Area A2C s 8.09 cm2 LA Vol A4C A-L 20.22 mL LA Vol A2C A-L 17.19 mL LA Vol Biplan e A-L 20.3 mL LA Vol/BS A A4C A-L LA Vol/BS A A2C A-L LA Vol/BS A BP A-L 9.5 mL/m2 LA Vol A4C MOD 18.3 mL LA Vol A2C MOD 16.6 mL LA Vol BP MOD 18.8 mL RA Volume RA Area A4C 7.1 cm2 RA ESV A4C (A-L) 10.7mL RA Vol/BS A A4C A-L RA Length A4C 4.0 cm RA ESV A4C (MOD) 11.0mL LV Diasto logy MV E' medial 0.087 (>0.07 m/s) MV E Vmax 0.82 (0.4-1 .3 m/s) MV E/E' MED 9.39 (<14) MV A Vmax 0.90 (0.4-1 .3 m/s) MV E' latera l 0.112 (>0.1 m/s) E/A Ratio 0.9 MV E/E' LAT 7.33 (<14) MV E' Averag e 0.100 m/s MV E/E'(a verage ) 8.24 Aortic Valve AoV Vmax 1.31 m/s LVOT Vmax 1.11 m/s AoV Peak Grad 6.9 mmHg LVOT Peak Grad 4.9 mmHg AoV Area (Vmax) 2.77 cm2 LVOT VTI 0.232 m AoV VTI 0.269 m LVOT Mean Grad 2.9 mmHg AoV Mean Benjamin. 0.94 m/s LVOT SV 75.75 mL AoV Mean Grad 4.0 mmHg LVOT Diam s 2.00 cm AoV Area (VTI) 2.82 cm2 AV Regurg Peak Gr. 6.85 mmHg Veloci ty Ratio 0.85 Mitral Valve MV DT 240 (160-2 40 msec) MV Vmax TIPS 1.03 m/s MV Mean Grad 2.0 (<2mmH g) MV VTI 0.280 m Pulmon mary Valve PV Vmax 1.01 (0.5-1 .5 m/s) RVOT Vmax 0.52 m/s PV Peak Grad 4.1 mmHg RVOT Peak Gr. 1.1 mmHg PV Mean Benjamin 0.73 m/s RVOT VTI 0.115 m PV Mean Grad 2.4 mmHg RVOT Mean Gr. 0.7 mmHg Edyta roa By: Ana María Cummings M.D. CC: ------ ------ ------ ------ ------ ------ ------ ------ ------ ------ ------ ------ - Dictat ed By: Sofia Allen M.D. 0837 54 Transc ribed By: Sofia Allen MD 37 This is privil eged, confid ential inform ation intend ed only for the provid er named. Any use or distri bution by any person other than this provid er is strict ly prohib ited. If you receiv e this report in error, please notify us immedi caryl at [phone] and return the origin al report to us at the addres s above. Thank- you. [facility] [address], [place], [address] 04/06/2024 09:17:06 05/08/20 24 05/08/2024 MRI imagi ng repor t Rola hoffman Name: Isiah Medrano Unit #: [id number] Loc: DI Orderi ng Provid er: Erick Dee M.D. Accdany t #: [id number] Status : REG CLI Primar y Care Provid er: [place] Janet sanchez last Date of Exam: 02/23 Sex: M Admiss [...] decrea sed size of the body and aircraft maintenance technician ior horn of the medial menisc us. There is abnorm al signal presen t. The findin gs are suspic ious for tear. Please correl ate with any prior menisc al surger y. The latera l menisc us is unrema rkable . SOFT TISSUE S: There is mild edema seen in the soft tissue s partic ularly aircraft maintenance technician iorly and medial ly. Note is made of a poplit eal cyst measur ing 3.8 x 2.5 x 4.6 cm. LIGAME NTS: Anteri or Crucia te: The anteri or crucia te ligame nt is absent consis tent with a tear. Heliotherapist ior Crucia te: Unrema rkable . Medial Collat eral:U nremar kable. Latera l Collat eral: Unrema rkable . OTHER: IMPRES JULI: 1. Please correl ate with any prior patien t's surgic al histor y. 2. Findin gs suspic ious for tear of the body and aircraft maintenance technician ior horn of the medial menisc us. [...] ------ ------ - Dictat ed By: Brock Campbell M.D. 1406 Transc ribed By: Brock Campbell 1406 This is privil eged, confid ential inform ation intend ed only for the provid er named. Any use or distri bution by any person other than this provid er is strict ly prohib ited. If you receiv e this report in error, please notify us immedi caryl at [phone] and return the origin al report to us at the addres s above. Thank- you. [facility] [address], [place], [address] 05/08/2024 19:28:52 05/18/20 24 05/11/2020 imagi ng/di agnos tic resul t No observ ation record [...] more view No observ ation record ed. [facility] [address] [place], [address], 06/04/2024 05:21:12 Result Notes None recorded. Problems Name Problem SNOMED Code Status Onset Date Resolution Date Notes Provider Name and Address Organization Details Recorded Time Hyperlip idemia 41556894 Active 200109/10/19 18 - Comments only - Sravani Zayas APRN - stable, continue medicati on. Due for routine BW in December 2017. Problem Code: E78.5; Problem Code Type: ICD-10; [address], [place], [address], [facility] 3 05:25:57 Gout 53397179 Active 200209/10/19 18 - Comments only - Sravani Zayas APRN - stable, continue allopuri nol at current dosage. Check uric acid level with next blood draw. Problem Code: M10.9; Problem Code Type: ICD-10; [address], [place], [address], [facility] 3 05:25:58 Major depressi on, single episode 73783536 Active 200208/10/20 19 - Comments only - Yana Gallardo MD - Isiah Medrano comes in today for follow-u p from his recent hospital ization in the [facility]. He states that he found that particul [...] Problem Code Type: ICD-10; [address], [place], [address], [facility] 3 05:25:57 Atherosc lerosis of coronary artery without angina pectoris 3130721182 43006 Active 200705/11/20 20 - Comments only - Linda Galeano MD - This has been stable for years, baseline EKG today Problem Code: I25.10; Problem Code Type: ICD-10; [address], [place], [address], [facility] 3 05:25:57 Type 2 diabetes mellitus without complica tion 892612081 Active 200105/11/20 20 - Comments only - Linda Galeano MD - Has been controll ed, check A1c today, hold am oral meds and short acting insulin, take 1/2 long acting insulin morning of surgery Problem Code: E11.9; Problem Code Type: ICD-10; [address], [place], [address], [facility] 3 05:25:57 Chest pain 13508167 Completed 201407/12/2015 04/11/20 15 - Comments only - Sravani Zayas APRN - Differen tials include angina, atypical ,? Muscular , respirat ory origin. Reassuri ng nuclear stress test. Blood pressure is stable. Continue current medicati on regimen. Refer to cardiolo gy. Consider starting Imdur in near future. Problem Code: R07.9; Problem Code Type: ICD-10; Not Available [facility] 3 04:35:38 [facility]entia l hyperten juli 04656145 Active 201405/11/20 20 - Comments only - Linda Galeano MD - Controll ed, no change in medicati on Problem Code: I10; Problem Code Type: ICD-10; SRAVANI ZAYAS APRN [address], [place], [address], [facility] 3 05:25:57 Angina pectoris 166011681 Active 201509/10/19 18 - Comments only - Sravani Zayas TEACHING ASSOCIATE - continue s to struggle with. Maryjo calloway ng imdur, after discussi on will hold on doing this until after he sees his cardiolo gist. Appt should be next month. Problem Code: I20.9; Problem Code Type: ICD-10; [address], [place], [address], [facility] 3 05:25:57 Traumati c or non-trau matic injury 494053873 Completed 201702/18/2018 Problem Code: T14.90; Problem Code Type: ICD-10; Not Available [facility] 3 04:35:38 Phlebiti s 23740471 Active 201701/10/20 18 - Comments only - [...] ICD-10; SRAVANI ZAYAS APRN [address], [place], [address], [facility] 3 05:25:57 Paresthe ruben 61841567 Active 201701/10/20 18 - Comments only - Michelle Giles APRN, RN, L.AC - Continue to monitor, declined referral for left sided paresths ia at this time but will consider if conditio n worsens. Problem Code: R20.2; Problem Code Type: ICD-10; [address], [place], [address], [facility]. 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 Active 2018 Problem Code: N28.1; Problem Code Type: ICD-10; [address], [address] 3 05:25:57 Suicidal thoughts 4345730 Active 2018 Problem Code: R45.851; Problem Code Type: ICD-10; [address], [address] 3 05:25:58 Adjustme nt disorder with depresse d mood 08207373 Active 201805/11/20 20 - Improved - Linda Galeano MD - But still present, continue with counseli yassine, consider weaning off Abilify within the next few months Problem Code: F43.21; Problem Code Type: ICD-10; [address], [address] 3 05:25:57 Hypomagn esemia 420473250 Active 201905/11/20 20 - Comments only - Linda Galeano MD - Recheck today as he is going into surgery Problem Code: E83.42; Problem Code Type: ICD-10; [address], [facility] [address], [facility] 3 05:25:57 Skin nodule 78495784 Active [address], [place] [address], [facility] 3 05:25:58 History of risk factor for suicide 5690183628 58436 Active [address], [address] 3 05:25:57 Family disrupti on due to parent-c hild estrange ment 5510864474 06414 Active [address], [facility] [address] [place] [address] 3 05:25:57 Family disrupti on with separati on 6097785 Active [address], [facility] [address] [place] [address] 3 05:25:58 Chronic kidney disease 020427284 Active 2020 Problem Code: N18.9; Problem Code Type: ICD-10; [address], [facility] [address], [facility] 3 05:25:58 Retinopa thy due to type 2 diabetes mellitus 638733082 Active 2020 Problem Code: E11.319; Problem Code Type: ICD-10; [address], [facility] [address], [facility] 3 05:25:57 Erectile dysfunct ion 733402484 Active 2021 Problem Code: F52.21; Problem Code Type: ICD-10; [address], [place] [address], [facility] 3 05:25:58 Pain of left knee joint 5887062083 67559 Active 2022 Problem Code: M25.562; Problem Code Type: ICD-10; [address], [place] [address], [facility] 3 05:25:57 Vitamin D deficien cy 13363354 Active 2022 Problem Code: E55.9; Problem Code Type: ICD-10; [address], [place] [address], [facility] 3 05:25:57 Iron deficien cy 01663429 Active 2022 Problem Code: E61.1; Problem Code Type: ICD-10; [address], [address] 3 05:25:57 Iron deficien cy anemia 56671371 Completed 201904/16/2023 Problem Code: D50.9; Problem Code Type: ICD-10; Not Available [facility] 3 04:35:42 Lesion of right ulnar nerve 3877136900 16829 Completed 201401/27/2015 Problem Code: G56.21; Problem Code Type: ICD-10; Not Available [facility] 3 04:35:42 Tremor 93461681 Completed 202001/15/2022 Problem Code: R25.1; Problem Code Type: ICD-10; Not Available [facility] 3 04:35:42 Chest pain 86555020 Completed 201809/15/2020 Problem Code: R07.89; Problem Code Type: ICD-10; Not Available [facility] 3 04:35:42 Acute sinusiti s 88836603 Completed 201509/22/2016 Problem Code: J01.90; Problem Code Type: ICD-10; Not Available [facility] 3 04:35:43 Pneumoni a 216241583 Completed 201809/21/2019 Problem Code: J18.9; Problem Code Type: ICD-10; Not Available [facility] 3 04:35:43 Diarrhea 56622362 Completed 201909/15/2020 Problem Code: R19.7; Problem Code Type: ICD-10; Not Available [facility] 3 04:35:43 Depressi ve disorder 37511842 Completed 200205/29/2023 04/11/20 15 - Comments only - Sravani Zayas TEACHING ASSOCIATE - Stable, continue current medicati on regimen. No desires for counselo r. Not Available [facility] 3 04:35:43 Coronary arterios clerosis 96357578 Completed 200705/29/2023 04/11/20 15 - Comments only - Sravani Zayas TEACHING ASSOCIATE - With complain ts of active chest pain. Reassuri ng nuclear stress test. Will refer to cardiolo gy, since his upcoming surgery. Continue current medicati on regimen. We will speak with another provider about starting another type of nitrate such as Imdur. Check routine blood work. Not Available [facility] 3 04:35:43 Diabetes mellitus 91100914 Completed 200105/29/2023 02/15/20 15 - Comments only - Sravani Zayas TEACHING ASSOCIATE - Poor control with poor adherenc e to medicati on manageme nt. He is going to work on a plan with his for remember ing to take medicati ons and check fingerst icks. For now will hold off on any DM medicati on adjustme nts. Problem Code: 250.0; Problem Code Type: ICD-9; Not Available [facility] 3 04:35:43 Multiple congenit al cysts of kidney 26565221 Completed 201804/09/2019 Problem Code: Q61.9; Problem Code Type: ICD-10; Not Available [facility] 3 04:35:44 Lower urinary tract symptoms 854093547 Active 2022 has high post void residual . refer to urology. [address], [place], [address], [facility], [facility] 4 07:26:25 Pain of bilatera l hands 1556224773 1425632 Active 2023 SRAVANI ZAYAS APRN [address], [place], [address], [facility] 4 10:33:17 Pain of right knee joint 9854322478 02007 Active 2023 SRAVANI ZAYAS APRN [address], [facility] [address], [facility] 4 11:09:21 Prerenal azotemia 876196388 Active 2023 ALEXANDRIA GRESHAM null, [facility] 4 08:10:22 Derangem ent of right knee 7347719902 4848060 Active 2023 Hannah Ellsion RN null, [facility] 4 13:12:51 Prepatel lar bursitis 90610804 Active 2023 Hannah Ellison RN null, [facility] 4 13:13:08 Hyperkal emia 44798314 Active 2023 Imani Gutierrez RN null, [facility] 4 10:05:43 Injury of ulnar nerve 47374622 Active 2023 SRAVANI ZAYAS APRN [address], [place], [address], [facility] 4 13:18:58 Foot ulcer due to type 2 diabetes mellitus 1580800483 100 Active 2023 SRAVANI ZAYAS TEACHING ASSOCIATE [address], [place], [address], [place] [facility] 10:26:31 Notes:*Problem Name: Injury to ulnar [...] *Note Date: 02/18/2023 Problem Notes None recorded. Procedures Surgical History None recorded. Imaging Results Imaging Date Name Status LastModified by [facility] Details LastModified Time 02/26/2024 x-ray imaging report completed [address] [facility] [place], [address] 02/26/2024 17:44:08 04/03/2024 ultrasound imaging report completed [address] [facility] [place], [address] 04/03/2024 15:52:49 04/06/2024 ultrasound imaging report completed [address] [place], [address] 04/06/2024 09:17:06 05/08/2024 MRI imaging report completed [address] [facility] [place], [address] 05/08/2024 19:28:52 05/11/2020 imaging/diagnos tic result completed Information not available 05/18/2024 19:20:45 09/20/2022 XR, knee completed Information no t available 05/18/2024 19:21:04 04/07/2019 US, renal completed Information no t available 05/18/2024 19:21:28 03/17/2019 MRI, thoracic spine completed Information not available 05/18/2024 19:21:41 06/03/2024 XR, foot, 3 or more view completed [address] [facility], [place], [address], 06/04/2024 05:21:12 Procedure Notes None recorded. Medical Equipment None Reported. Allergies Allergen ID Allergen Name Allergen Category Reaction Reaction Severity Criticality Documentation Date Start Date Code Code System Note Provider Name and Address Organization Details Recorded Time 31076 lisinopri l medicatio n other severe high 10/17/2023 82792 RxNorm Hyper kalem ia SRAVANI ZAYAS, TEACHING ASSOCIATE [address], [place], [address] [place] [address] 12:37:10 Medications Name Sig Start Date Stop [...] by insulin pen 09/29 completed per [facility] Endocrin ologist Not Available Not Available Not [...] IM as needed 2014 active Per [facility] endocrin ologist Not Available Not Available Not [...] pravastat in 80 mg tablet 1 TAB QHS 12/20 completed Not Available Not Available Not Available amitripty line 25 mg tablet 1 TAB QHS 02/21 completed Not Available Not Available Not [...] by mouth four times daily 04/13 completed Disconti nued per [facility] d/c summary 04/06/24 Not Available Not [...] daily 2015 active recommen ded by [facility] endocrin ologist Not Available Not Available Not Available oxycodone 5 mg tablet Take 1 tab by mouth daily as needed for pain 05/03 completed Not Available Not Available Not Available pen needle, diabetic 31 gauge x 01/15 Use 1 needle subcutan eously four times a day 11/26 completed goes to [facility] Not Available Not Available Not Available Abilify [...] 0=15 units,et c 01/01 completed per [facility] endocrin ologist Not Available Not Available Not [...] daily 2015 active recommen ded by [facility] endocrin ologist Not Available Not Available Not [...] times a day as directed with Humalog kwikpens 2023 active Not Available Not Available Not Avai lable Levemir FlexTouch U-100 Insulin 100 unit/mL (3 mL) subcutane ous pen Take 30 units at am 07/18 completed endo [facility] Not Available Not Available Not Available Jardiance [...] height Body mass index (BMI) Body weight Oxygen saturation Oxygen saturation in Arterial blood by Pulse oximetry Heart rate Systolic blood pressure Diastolic blood pressure Provider Name and Address Organization Details Last Updated DateTime 4 171.45 cm 37.7 kg/m2 581740. 54 g 97 % 97 % 93 /min 122 mm[Hg] 74 mm[Hg] NAYE WRIGHT [facility] 4 10:06:46 Date Recorded Body height Body mass index (BMI) Body weight Body temperature Oxygen saturation Oxygen saturation in Arterial blood by Pulse oximetry Heart rate Systolic blood pressure Diastolic blood pressure Provider Name and Address Organization Details Last Updated DateTime 4 171.45 cm 38.3 kg/m2 786962. 01 g 97.1 [degF] 97 % 97 % 72 /min 156 mm[Hg] 68 mm[Hg] NAYE WRIGHT [facility] 4 11:01:18 Date Recorded Systolic blood pressure Diastolic blood pressure Provider Name and Address Organization Details Last Updated DateTime 03/16/2024 142 mm[Hg] 76 mm[Hg] SRAVANI ZAYAS, [address], [place], [address], [facility] 03/16/2024 11:21:45 Date Recorded Body height Body mass index (BMI) Body weight Body temperature Oxygen saturation Oxygen saturation in Arterial blood by Pulse oximetry Heart rate Systolic blood pressure Diastolic blood pressure Provider Name and Address Organization Details Last Updated DateTime 4 171.45 cm 35.6 kg/m2 165712. 84 g 97.3 [degF] 97 % 97 % 76 /min 132 mm[Hg] 60 mm[Hg] NAYE WRIGHT [facility] 14:15:47 Date Recorded Body height Body mass index (BMI) Body weight Body temperature Oxygen saturation Oxygen saturation in Arterial blood by Pulse oximetry Heart rate Systolic blood pressure Diastolic blood pressure Provider Name and Address Organization Details Last Updated DateTime 4 171.45 cm 36.3 kg/m2 089416. 61 g 97.6 [degF] 99 % 99 % 84 /min 116 mm[Hg] 70 mm[Hg] NAYE WRIGHT [facility] 10:02:47 Social History Question Answer Notes LastModified by Organizat ion Details LastModified Time Tobacco Smoking Status Never Smoker NAYE WRIGHT CMA null, [facility] 11/21/2023 10:11:00 What Was The Date Of [...] Influenza, split virus, quadrivalent, PF 4 completed NAYE WRIGHT, CAR FERRY CAPTAIN null, [place] [facility] 11/21/2023 11:32:49 Td (adult), 2 Lf tetanus toxoid, preservative free, adsorbed 6 completed Not Available [facility] 07/12/2023 04:02:22 Tdap 2 completed Not Available [facility] 07/12/2023 04:02:23 Tdap 2 completed Not Available [facility] 07/12/2023 04:02:23 Influenza, split virus, trivalent, preservative 6 completed Not Available [facility] 07/12/2023 04:02:24 Influenza, split virus, quadrivalent, PF 0 completed Not Available [facility] 07/12/2023 04:02:24 Influenza, split virus, quadrivalent, PF 2 completed Not Available [facility] 07/12/2023 04:02:24 Influenza, split virus, quadrivalent, PF 1 completed Not Available [facility] 07/12/2023 04:02:24 zoster recombinant 0 completed Not Available [facility] 07/12/2023 04:02:24 zoster recombinant 0 completed Not Available [facility] 07/12/2023 04:02:24 COVID-19, mRNA, LNP-S, PF, 100 mcg/0.5mL dose or 50 mcg/0.25mL dose 1 completed Not Available [facility] 07/12/2023 04:02:25 COVID-19, mRNA, LNP-S, PF, 100 mcg/0.5mL dose or 50 mcg/0.25mL dose 2 completed Not Available [facility] 07/12/2023 04:02:25 COVID-19, mRNA, LNP-S, PF, 100 mcg/0.5mL dose or 50 mcg/0.25mL dose 1 completed Not Available [facility] 07/12/2023 04:02:25 COVID-19, mRNA, LNP-S, PF, 100 mcg/0.5mL dose or 50 mcg/0.25mL dose 1 completed Not Available [facility] 07/12/2023 04:02:25 SARS-COV-2 (COVID-19) vaccine, UNSPECIFIED 2 completed Not Available [facility] 07/12/2023 04:02:25 Pneumococcal conjugate PCV20, polysaccharide XMO139 conjugate, adjuvant, PF 3 completed Not Available [facility] 07/12/2023 04:02:26 pneumococcal polysaccharide PPV23 1 completed Not Available [facility] 07/12/2023 04:02:26 Hep B, adult 4 completed Not Available [facility] 07/12/2023 04:02:26 Hep B, adult 2 completed Not Available [facility] 07/12/2023 04:02:26 Hep B, adult 3 completed Not Available [facility] 07/12/2023 04:02:26 Hep B, adult 2 completed Not Available [facility] 07/12/2023 04:02:27 influenza, unspecified formulation 9 completed Not Available [facility] 07/12/2023 04:02:27 Influenza, split virus, trivalent, PF [address], [place], [address], [facility]. 05/26/2024 10:56:20 COVID-19, mRNA, LNP-S, PF, ines-sucrose, 30 mcg/0.3 mL [address], [place], [address], [facility]. 05/26/2024 10:56:20 COVID-19, mRNA, LNP-S, PF, ines-sucrose, 30 mcg/0.3 mL 3 completed Not Available [facility] 09/13/2023 05:33:10 Past Encounters Encounter ID Performer Location Encounter Start Date Encounter Closed Date Diagnosis/Indication Diagnosis SNOMED-CT Code Diagnosis ICD10 Code [id number] SRAVANI ZAYAS[address] [address] 08/29/2023 09:55:36 08/29/2023 10:45:54 Type 2 diabetes mellitus without complication 085192937 E11.[id number] [address] 11/21/2023 10:00:59 11/21/2023 10:59:41 Pain of bilateral hands 3125400552 6958825 M79.641 M79.642 Type 2 juancho betes mellitus without complication 526314402 E11.9 G62.9 H35.00 Atheroscle rosis of coronary artery without angina pectoris 6531437666 72369 I25.10 I20.9 I10 E78.2 N18.9 Gout 26673394 M10.9 Phlebitis 57668837 I80.9 Iron deficiency 57060985 E61.1 Adjustment disorder with depressed mood 82708563 F43.21 Lower urin mary tract symptoms 254426562 R39.9 Pain of le ft knee joint 3484204879 54294 M25.562 Vitamin D deficiency 347 73923 E55.9 Active or passive immunization 281080541 Z23 [id number] SRAVANI ZAYAS[address] [address] 03/16/2024 10:47:16 03/16/2024 11:41:35 Atherosclerosis of coronary artery without angina pectoris 3297151203 27174 I25.10 I20.9 I10 E78.2 N18.9 Gout 95647059 M10.9 Type 2 juancho betes mellitus without complication 459732498 E11.9 G62.9 H35.00 Phlebitis 10955057 I80.9 Iron deficiency 74519926 E61.1 Adjustment disorder with depressed mood 41409055 F43.21 Lower urin mary tract symptoms 220462656 R39.9 Pain of le ft knee joint 8963335035 52220 M25.562 Vitamin D deficiency 347 90872 E55.9 Pain of bi lateral hands 5689146649 2786391 M79.641 M79.642 Pain of ri ght knee joint 6769289270 97657 M25.[id number] [address] 04/10/2024 13:40:43 04/10/2024 15:05:36 Prerenal azotemia 757908187 N25.9 [id number] [address] 05/26/2024 09:48:03 05/26/2024 10:41:25 Atherosclerosis of coronary artery without angina pectoris 0647630898 36555 I25.10 I20.9 I10 E78.2 N18.9 Gout 62684271 M10.9 Type 2 juancho betes mellitus without complication 994372031 E11.9 G62.9 H35.00 Phlebitis 62682415 I80.9 Iron deficiency 21884590 E61.1 Adjustment disorder with depressed mood 60226540 F43.21 Lower urin mary tract symptoms 586901965 R39.9 Pain of le ft knee joint 8448314260 19756 M25.562 Vitamin D deficiency 347 48343 E55.9 Pain of bi lateral hands 5446004598 7655941 M79.641 M79.642 Pain of ri ght knee joint 7361501973 47988 M25.561 Injury of ulnar nerve 62 963690 S54.01XD Foot ulcer due to type 2 diabetes mellitus 1273910927 100 E11.621 Active or passive immunization 442641007 Z23 Health Concerns Section Related Observation LastModified by Organization Detai ls LastModified Time None Recorded Concern Status LastModified by Organization Details LastModified Time None Recorded Advance Directives Directive None Recorded Payers Encounter Date Sequence Insurance Name Policy Number Policy Amezquita Covered Member ID Amezquita Member ID Guarantor Name 08/29/2023 3 [facility] (MEDICAID) Isiah Medrano [id number] Isiah Medrano 11/21/2023 3 [facility] (MEDICAID) Isiah Medrano [id number] Isiah Medrano 03/16/2024 3 [facility] (MEDICAID) Isiah Ramirezose [id number] Isiah Medrano 04/10/2024 3 [facility] (MEDICAID) Isiah Medrano [id number] Isiah Medrano 05/26/2024 1 [place] [employer] Isiah Medrano [id number] Isiah Medrano 05/26/2024 2 YR Free (MEDICARE SUPPLEMENT) Isiah Medrano [id number] Isiah Medrano Notes Date Note Type Note Provider Name and Address Organization Details Recorded Time 08/29/2023 text/html Virtual visit fo r follow-up:- Diabetes. Neuropathy. Retinopathy. Hypomag. Takes metformin, glimepiride, gabapentin, atorvastatin, ASA, magnesium. Mag was increased to TID. Endo wants him to do metformin 500mg BID, glimerpide 4mg 2 tabs daily, Levemir 10 units BID. Does U500, even if not eating a meal. Was seen 6 weeks ago, was recommended to start carb counting, eating consistent meals. Blood sugars are lower. Highest 220. Lowest 60. Lows are about once per week. In last 14 days his CGM is 172. Meals per day are 2. Usually breakfast and dinner. insulin with breakfast is 15 units, his U500 insulin. With dinner doing 15 units of U500. Does not do U500 with lunch. Doing the U500 BID. Doing levemir insulin, 20 units BID. Not tracking his carbs. he is trying to stay away from high carb foods such as bread and potatoes. Meals are consistently of a lot of veggies, salads. in the AM he has oatmeal primarily, with maple syrup. Does not add any fruit to it. Not getting fruit often. Water intake is large. Drink 1 can of soda, diet/ day. neuropathy to feet it is ok. it ain't no worse. Denies 3ps. SRAVANI ZAYAS, TEACHING ASSOCIATE [address], [place], [address], [place] [facility]. 08/29/2023 10:43:49 11/21/2023 text/html Is here for follow-up: -CAD. Angina. HTN. HLD. CKD. Takes atorvastatin, isosorbide, metoprolol, ASA. no longer on AWA r/t hyperkalemia and renal changes, last visit metoprolol was increased.-Gout. Takes allopurinol. - Diabetes. Neuropathy. Retinopathy. Hypomag. Takes metformin, glimepiride, gabapentin, atorvastatin, ASA, magnesium. Endo wants him to do metformin 500mg BID, glimerpide 4mg 2 tabs daily, Levemir 10 units BID. U500 20 units BID. Overdue for his endo appt. -Thrombophlebitis. ASA.-ADA. Last visit his iron was slightly low at 59, had normal H&H, ferritin, retic, haptoglobin. Without iron supplementation since anemia has resolved.-Adjustment disorder with depressed mood. Hx of suicide ideations. Depression. Takes Cymbalta, aripiprazole, sertraline, trazodone, B complex and vitamin D. Officially as of Aug 24. Trying to work with anatomic pathologist to get his personal belongings.-LUTS. Takes imipramine-Knee pain, left. Plans for surgery once A1C is improved.-Hip pain, left. With radiation to the knee. Plan was to stretch and monitor.-Vitamin d deficiency. on supplementation SRAVANI ZAYAS, TEACHING ASSOCIATE [address], [place], [address], [facility] [[email or web address]] - [facility]. 11/21/2023 11:07:03 03/16/2024 text/html Is here for follow-up: -CAD. Angina. HTN. HLD. CKD. Takes atorvastatin, isosorbide, metoprolol, ASA. Low dose lisinopril; this has caused hyperkalemia in the past and are monitoring.-Gout. Takes allopurinol.-- update 03.16.24. - Diabetes. Neuropathy. Retinopathy. Hypomag. Takes metformin, glimepiride, gabapentin, atorvastatin, ASA, magnesium. Tera wants him to do metformin 500mg BID, glimerpide 4mg 2 tabs daily, Levemir 10 units BID. U500 20 units BID. Overdue for his endo appt.-- update 03.16.24. Some alarms going off at times with his CGM, even when his sugar is normal. Average is 150-160 in range. not wearing the CGM consistently because of the alarms. Not checking his sugars routinely. Taking U500 after breakfast and dinner; does 25 units. Continues to take his levemir. Not making good food choices, not working on portion control. lowest 60. Does not know what his highest is, but states it has been high. Denies 3Ps. neuropathy worsens when his sugars are elevated. -Thrombophlebitis. ASA.-ADA. Last visit his iron was slightly low at 59, had normal H&H, ferritin, retic, haptoglobin. Without iron supplementation since anemia has resolved.-Adjustment disorder with depressed mood. Hx of suicide ideations. Depression. Takes Cymbalta, aripiprazole, sertraline, trazodone, B complex and vitamin D. Officially as of Aug 24. Trying to work with anatomic pathologist to get his personal belongings.-- update 03.16.24. no longer seeing counselor. Feels he is in a good spot currently.-LUTS. Takes imipramine-Knee pain, left. Secondary to bursitis. Plans for surgery once A1C is improved.-Hip pain, left. With radiation to the knee. Plan was to stretch and monitor.-Vitamin d deficiency. on supplementation -Pain of bilateral hands. suspect OA. Last visit was recommended to do anti-inflammatory diet.-- update 03.16.24. no hand pain. SRAVANI ZAYAS, TEACHING ASSOCIATE [address], [place], [address], [facility] [[email or web address]] - [facility]. 03/16/2024 13:05:21 04/10/2024 text/html Is here for FU hospital stay. Admitted 04.02.24. Discharged 04.06.24. Initially presented to the ER on 04.02.24. He presented with dizziness, blurred vision, weakness for 3-4 days, worsening on the day he went to the ER. He had felt off. No chest pain, abdominal pain, n/v, flank pain, bowel or bladder changes. No fevers, chills, cough. but did feel malaise. While in the ER he was noted to have hypotension, was in acute renal failure d/t dehydration, hyperkalemia felt r/t hemoconcentration, no EKG changes. Rec'd fluid hydration, was admitted. Discharge notes: stated during hospitalization his potassium was rising up to 7, creatinine going up to 5.7. He was aggressively fluid rehydrated and given meds to improve potassium. Lisinopril was held during hospital stay. Levemir was gradually increased to 36 units BID and to resume home dosing of levemir at 45 units BID. His gabapentin was D/C'd r/t renal function. Initial Cr was 6.5, eGFR was 9.23. Potassium 5.7. Discharge Cr 2.1, eGFR 35.81, Potassium 5.0. Baseline Cr 1.6- 2.0. potassium normal. He felt this was all triggered by dehydration. Admits to his BP was quite low. Neuropathy is good, hasn't been bad at all. remains taking all of his home meds. BS were high today, 233. Otherwise, has been 120-140 range. they have been pretty good. Feels his diet is better, is eating 3 meals/ day. eating oatmeal for breakfast, apple/ banana for lunch, night is whatever his mother cooks and is working on eating portion control. No longer drinking soda, now only drinking water. U500- 25 units BID. has been taking IBU 1 pill/ day. SRAVANI ZAYAS, TEACHING ASSOCIATE [address], [place], [address], [facility] [[email or web address]] - [facility]. 04/10/2024 15:50:30 05/26/2024 text/html Is here for follow-up: -CAD. [...] of Aug 24. Trying to work with anatomic pathologist to get his personal belongings.-- update 03.16.24. [...] pain clinic in near future. SRAVANI ZAYAS, TEACHING ASSOCIATE [address], [place], [address], [facility] [[email or web address]] - [facility], [facility]. 05/26/2024 10:56:35
--- OUTSIDE RECORDS SUMMARY | 2024-08-14 01:20 | XMS_ITS | Encounter Summary ---
[facility] [place] [address] Care Team Providers Care Cow Tender Name Role Phone Sravani Salas APRN Primary Care Provider [phone] Encounter Details Date Type Department Care Team (Late st Contact Info) Description 01/17/2023 Telephone [place] [phone] Angela Villalobos RN Social History Tobacco Use [...] 10:30 AM EST Office Visit [place] [phone] Rodrigo Conteh MD [facility] [place] [address] documented as of this encounter Visit Diagnoses Not on filedocumented in this encounter Care Teams Cow Tender Relationship Specialty Start Date End Date Sravani Salas APRN [address] [place] [address] PCP - General Family Medicine 01/15/17 documented as of this encounter
--- OUTSIDE RECORDS SUMMARY | 2024-08-14 01:20 | XMS_ITS | Encounter Summary ---
Author Organization [facility] [place] [address] Care Team Providers Care Director Drug Name Role Phone Sravani Salas APRN Primary Care Provider [phone] Encounter Details Date Type Department Care Team (Late st Contact Info) Description 10/02/2022 Telephone [place] [phone] Carolyn Cervantes Social History Tobacco Use Types [...] 10:30 AM EST Office [place] [phone] Rodrigo Conteh MD [facility] [place] [address] documented as of this encounter Visit Diagnoses Not on filedocumented in this encounter Care Teams Director Drug Relationship Specialty Start Date End Date Sravani Salas APRN [address] [place] [address] PCP - General Family Medicine 01/15/17 documented as of this encounter
--- OUTSIDE RECORDS SUMMARY | 2024-08-14 01:20 | XMS_ITS | Referral Summary ---
Author Organization [facility] Address [address] [place] [address] Care Team Providers Care Sonar Watchstander Name Role Phone Unavailable Primary Care Provider Unavailabl e Social History Tobacco Use Types Packs/Day Years Used Date Smoking Tobacco: Never Assessed Sex and Gender Information Value Date Recorded Sex Assigned at Not on file Legal Sex Male 18:52 EST Gender Identity Not on file Sexual Orientation Not on file Plan of Treatment Not on file
--- OUTSIDE RECORDS SUMMARY | 2024-08-14 01:20 | XMS_ITS | Encounter Summary ---
Author Organization [facility] [place] [address] Care Team Providers Care Wildland Firefighter Name Role Phone Josue Sravani H CADY Primary Care Provider [phone] Encounter Details Date Type Department Care Team (Late st Contact Info) Description 03/06/2023 Telephone [place] [phone] Refugio Acharya MD [facility] [place] [address] Social History Tobacco Use Types Packs/Day Years [...] encounter Miscellaneous Notes * Telephone Encounter - Refugio Acharya MD - 03/06/2023 2:44 PM EDT Return call to Reyna ([phone]) re insulin regimen. Give recommendation about the insulin regimen. Gave 2 options. Taper levemir 30/40u bid to 30u BID + U500 vial with syringes (not both pen and syringe) for this 0-10u bid he has been using. Levemir (30 u bid) - Humalog using ICR 1u:5g carb and CF 20 for correction >150. D/W Dr. Conteh documented in this encounter Plan of Treatment Upcoming Encounters Date Type Department Care Team (Late st Contact Info) Description 08/18/2024 10:30 AM EST Office [place] [address] Rodrigo Conteh MD [facility] [place] [address] documented as of this encounter Visit Diagnoses Not on filedocumented in this encounter Care Teams Wildland Firefighter Relationship Specialty Start Date End Date Sravani Salas APRN [address] [place] [address] PCP - General Family Medicine 01/15/17 documented as of this encounter
--- OUTSIDE RECORDS SUMMARY | 2024-08-14 01:20 | XMS_ITS | Encounter Summary ---
[place] [address] Care Team Providers Care Morphology Teacher Name Role Phone Josue Sravani Rosen CADY Primary Care Provider [phone] Encounter Details Date Type Department Care Team (Late st Contact Info) Description 04/23/2023 Telephone [place] [address] Angela Villalobos RN Social History Tobacco Use [...] encounter Miscellaneous Notes * Telephone Encounter - Maddi Flores MD - 04/23/2023 3:52 PM EDT Returned call to Maya Easton ([phone]) for recommendations regarding insulin regimen given hypoglycemia. Stop Levemir Continue U-500 insulin 15 units three times daily before each meal Continue glimepiride 4 mg twice daily and metformin 500 mg twice daily. Discussed with Dr. Conteh. * Telephone Encounter - Angela Villalobos RN - 04/23/2023 8:44 AM EDT Copied from CRM #[id number]. Topic: Specialty Dept CRMs - Generic Call >> Apr 22, 2023 1:20 PM Jim Cummins wrote: Specialist: Aurea Jensen APRN-----[facility] [place] [facility] Relationship (if other than patient-full name): Maya Easton Process Camera Operator Reason for Call: Maya wishes to speak with an induction furnace operator Provider - states this is an urgent matter - Maya is calling from [facility] Maya states patient saw PCP on 04/16/23 and states PCP has questions regarding patients current regimen ; states patient blood sugars has been low in the 50's range & explains that patient is using the glucose monitor & states patients currentreadings are up to date and shared in the [place] [facility] documented in this encounter Plan of Treatment Upcoming Encounters Date Type Department Care Team (Late st Contact Info) Description 08/18/2024 10:30 AM EST Office [place] [address] Rodrigo Conteh MD [facility] [place] [address] documented as of this encounter Visit Diagnoses Not on filedocumented in this encounter Care Teams Morphology Teacher Relationship Specialty Start Date End Date Sravani Salas APRN [address] [place] [address] PCP - General Family Medicine 01/15/17 documented as of this encounter
--- OUTSIDE RECORDS SUMMARY | 2024-08-14 01:20 | XMS_ITS | Clinical Summary ---
Author Organization [facility] Address [address] [place] [address] Care Team Providers Care Sewing Machinist Name Role Phone Unavailable Primary Care Provider Unavailabl e Social History Tobacco Use Types Packs/Day Years Used Date Smoking Tobacco: Never Assessed Sex and Gender Information Value Date Recorded Sex Assigned at Not on file Legal Sex Male 18:52 EST Gender Identity Not on file Sexual Orientation Not on file Plan of Treatment Health Maintenance Due Date Last Done Comments Hepatitis C Screen 1965 Hepatitis B Vaccine (1 of 3 - 19+ 3-dose series) 01/19 COVID-19 Vaccine ( season) 2024
--- OUTSIDE RECORDS SUMMARY | 2024-08-14 01:20 | XMS_ITS | Clinical Summary ---
[facility] [place] [address] Care Team Providers Care Concrete Journeyman Name Role Phone Sravani Salas APRN Primary Care Provider [phone] Allergies Active Allergy Reactions Criticality Noted Date Comments Amoxicillin Other (See Comments) 02/07/2017 Unknown Eptifibatide Other (See Comments) Medium thrombocytopenia Medications Medication Sig Dispensed Refills Start Date End Date Status Insulin Syringe-Needle U-100 (BD INSULIN SYRINGE ULT-FINE II) 1 mL 31 x 5/16 Syrg 1 each by Misc.(Non-Drug; Combo Route) route 2 times daily (before meals). 100 each 11 11/04/2012 Active Blood Sugar Diagnostic (ONE TOUCH ULTRA TEST) test stripIndications:T ype II or unspecified type diabetes mellitus without mention of complication, uncontrolled 1 each by Other route 4 times daily. Use as instructed 400 each 3 03/03/2013 Active atorvastatin (LIPITOR) 40 mg Tablet Take 40 mg by mouth nightly. 05/24/2015 Active glimepiride (AMARYL) 4 mg Tablet Take 1 tablet by mouth 2 times daily. 180 tablet 3 06/10/2015 Active multivitamin (THERAGRAN) Tablet Take 1 tablet by mouth daily. Active gabapentin (NEURONTIN) 300 mg Capsule Take 900 mg by mouth 4 times daily. 3 03/20/2016 Active lisinopril (PRINIVIL;ZESTRIL) 20 mg Tablet Take 40 mg by mouth nightly. 03/22/2016 Active magnesium oxide (MAG-OX) 400 mg Tablet Take 400 mg by mouth nightly. 3 03/20/2016 Active allopurinol (ZYLOPRIM) 300 mg Tablet Take 300 mg by mouth nightly. Active aspirin 325 mg Tablet Take 325 mg by mouth daily. Ordered for Heart attack reasons Active pen needle, diabetic (NOVOFINE PLUS) 32 gauge x 1/6 Needle 1 each by [facility]Non-Drug; Combo Route) route 4 times daily as needed. 100 each 11 03/26/2017 Active NALTREXONE HCL (NALTREXONE ORAL)Indications:p t takes 4.5 mg daily Take 1 mg by mouth 4 times daily as needed (pain). Indications: pt takes 4.5 mg daily Active Insulin Syringe-Needle U-100 0.5 mL 31 gauge x 5/16 Syringe 1 each by [facility]Non-Drug; Combo Route) route 2 times daily. 100 Syringe 11 07/02/2017 Active isosorbide mononitrate (IMDUR) 30 mg Tablet Sustained Release 24 hr Take 60 mg by mouth daily. Active CHOLECALCIFEROL, VITAMIN D3, (VITAMIN D3 ORAL) Take 1 tablet by mouth nightly. Active Ibuprofen 200 mg Capsule Take 400 mg by mouth 3 times daily as needed (pain). Active insulin needles, disposable, (BD ULTRA-FINE MINI PEN NEEDLE) 31 gauge x 3/16 NeedleIndications: Type 2 diabetes, controlled, with neuropathy by Other route. 1 box = 100 insulin PEN needles. 1 each 3 06/15/2019 Active ARIPiprazole (ABILIFY) 10 mg Tablet 10 mg daily. 07/21/[address] (CYMBALTA) 60 mg Capsule, Delayed Release(E.C.) daily. 08/17/2019 Active ferrous sulfate 325 mg (65 mg iron) Tablet daily. 06/16/2019 Active nitroGLYcerin (NITROSTAT) 0.4 mg Tablet, Sublingual as needed for Chest pain. 07/21/2019 Active sertraline (ZOLOFT) 100 mg Tablet daily. 08/17/2019 Active traZODone (DESYREL) 100 mg Tablet nightly. 08/17/2019 Active imipramine (Tofranil) 50 mg Tablet nightly. 02/25/2020 Active Magtab 84 mg Tablet Sustained ReleaseIndications :3 times a week Indications: 3 times a week 04/07/2020 Active metoprolol succinate XL (Toprol-XL) 25 mg Tablet Sustained Release 24 hr daily. 12/29/2020 Active FreeStyle Tasha 2 [place] MiscIndications:di abetes mellitus 1 each by Other route daily. Indications: diabetes mellitus 1 each 11/13/2021 Active FreeStyle Tasha 2 Sensor KitIndications:juancho betes mellitus 1 each by Other route daily. Indications: diabetes mellitus 6 kit 3 11/13/2021 Active humaLOG KwikPen 100 unit/mL Insulin Pen INJECT 10 TO 49 UNITS SUBCUTANEOUSLY THREE TIMES DAILY WITH MEALS 01/01/2023 Active Insulin Syringe-Needle U-100 0.5 mL 30 gauge x 5/16 Syringe 1 each by [facility]Non-Drug; Combo Route) route 2 times daily. 180 each 3 01/18/2023 Active insulin detemir U-100 (Levemir U-100 Insulin) 100 unit/mL Solution Inject 25 Units subcutaneously 2 times daily. 50 mL 4 04/16/2023 Active metFORMIN XR (Glucophage XR) 500 mg ER 24 hr tablet Take 1 tablet by mouth 2 times daily. 56 tablet 2 02/18/2024 Active insulin regular CONCENTRATE U-500 (humuLIN R U-500 Concentrated) 500 unit/mL Solution Inject 15 units three times daily after your meals (3 unit justyna on the syringe) 40 mL 07/11/2024 Active Active Problems Problem Noted Date Diagnosed Date Erectile dysfunction 03/28/2022 Obesity (BMI 30.0-34.9) 05/23/2020 Iron deficiency anemia 05/23/2020 Hypomagnesemia 05/23/2020 CAD (coronary artery disease) 05/23/2020 Overview (05/23/2020): S/p stent x2 RCA Chronic pain 05/23/2020 Diabetes mellitus type 2, insulin dependent 06/02 Severe episode of recurrent major depressive disorder, without psychotic features 06/10/2019 Pain of right upper extremity 12/09/2017 Ulnar neuropathy of right upper extremity 2015 Adjustment disorder with depressed mood 01/23/20 08 Hypertension 01/23/2008 Gout 06/02/2003 HLD (hyperlipidemia) 12/01/2001 Resolved Problems Problem Noted Date Diagnosed Date Resolved Date CIS - Acute non-ST segment e levation myocardial infarction 01/23/2008 05/23/2020 Overview (11/07/2010): s/p NSTEMI with stent to RCA 01/2008 and thrombectomy to t.o. RPL1 -peak troponin 0.09 -EF by cath 65% Encounters Date Type Department Care Team Description 07/08/2024 [place] [phone] Aurea Jensen APRN 05/29/2024 Transcribe Orders eDH Incoming Referrals [phone] Sravani Salas, AUDITOR APPRAISER Laceration of ulnar nerve at forearm level, right, subsequent encounter from Last 3 Months Family History Medical History Relation Comments Diabetes Brother Relation Status Comments Brother Alive Father Alive Mother Alive Social History Tobacco Use Types Packs/Day Years Used Date Smoking Tobacco: Never Smokeless Tobacco: Former Chew Quit: 01/09/1995 Alcohol Use Standard Drinks/Week Comments No 0 (1 standard drink = 0.6 oz pur e alcohol) Sex and Gender Information Value Date Recorded Sex Assigned at Not on file Gender Identity Not on file Sexual Orientation Not on file Last Filed Vital Signs Vital Sign Reading Time Taken Comments Blood Pressure 120/80 01/08/2023 11:10 AM EDT Pulse 70 01/08/2023 11:10 AM EDT Temperature 36.6 ??C (97.8 ??F) 08/12/2020 1:54 PM ES T Respiratory Rate 12 01/08/2023 11:10 AM EDT Oxygen Saturation 97% 03/08/2021 9:56 AM EDT Inhaled Oxygen Concentration - - Weight 99.8 kg (220 lb) 01/08/2023 11:10 AM EDT Height 170.2 cm (5' 7) 01/08/2023 11:10 AM EDT Body Mass Index 34.46 01/08/2023 11:10 AM EDT Plan of Treatment Upcoming Encounters Date Type Department Care Team (Late st Contact Info) Description 08/18/2024 10:30 AM EST Office [place] [phone] Rodrigo Conteh MD [facility] [place] [address] Health Maintenance Due Date Last Done Comments CT Colonography 1966 FIT DNA 1965 FIT 1965 Sigmoidoscopy 1965 Pneumococcal Vaccine: At-Ris k 5-64yrs (1 of 2 - PCV) 01/20/1972 DM Opthalmology Exam 01/20/1976 HIV screen 01/20/1984 Hepatitis C Screening 01/20/1984 Hepatitis B vaccine (0-59 yrs) (1) 1985 Tetanus/Diphtheria/Pertussis Vaccines (1 - Tdap) 1985 DM Urine Microalbumin yearly 02/24/2014 02/24/2013 Zoster vaccine (1 of 2) 01/20/2016 DM Creatinine yearly 06/15/2020 06/15/2019, 06/11/20 DM Hemoglobin A1c 06/24/2020 03/24/2020, , 06/11/2019, Additional history exists Advance Directive 2021 Influenza (Flu) vaccine (1 o f 1 - Influenza standard series) 05/03/2024 Colonoscopy 03/11/2030 03/11/2020, 03/11/2020 Colorectal Cancer Screening 03/11/2030 Sigmoidoscopy (10 year) with FIT yearly 03/11/2030 03/11/2020, 03/11/2020 Covid-19 Vaccine Completed 05/26/2024, 07/15/2023 Medical Devices Implanted Type Area Tour Consultant Device Identifier Shelf Expiration Date Model / Serial / Lot Lead,Trl,Cmpt,Scs,Mr i ([id number]) - [id number] Implanted:Qty: 1 on 05/25/2020 by Cleveland Torres MD at [facility] IMPLANTS N/A: Spine Cervical [employer] 09/11/2023 [id number] / / [id number] Lead,Trl,Cmpt,Scs,Mr i ([id number]) - [id number] Implanted:Qty: 1 on 05/25/2020 by Cleveland Torres MD at [facility] IMPLANTS N/A: Spine Cervical [employer] 07/13/2023 [id number] / / [id number] Stimrouter Neuromodulation System Implanted:Qty: 1 on 07/11/2018 by Galdino Wood MD at [facility] 09/23/2018 ST2- 1000 / [id number] / Description:When MRI is perf ormed @ [facility], the above Stimrouter is MR Conditional up to 3 Nancy, when the following conditions are followed: When using a full body transmit radio frequency (RF) coil, do not scan patients with a specific absorption rate (AUDRA) level exceeding 2 W/kg. A scan above 2 W/kg may increase the risk of MRI-related heating. When using head transmit RF coil, do not exceed head AUDRA of 3.2 W/Kg. Do not place a local RF transmit coil directly over the implanted StimRouter Lead. All external components of the StimRouter system are contraindicated for the MRI environment. Therefore, the StimRouter Electrode, External pulse transmitter and Patient Sanitary Chemist must be removed before the patient is allowed into the MRI environment. Non-clinical testing has demonstrated that the StimRouter Lead is ? MR Conditional? . Patients with an implanted StimRouter Lead can be scanned safely, immediately after implantation, in MR cylindrical bore system that meets the following conditions: Static magnetic field of 1.5 Nancy (T) or 3 T; and Maximum spatial field gradient of 2500 gauss/cm (25 T/m); and To ensure patient safety, relative to potential heating of the StimRouter Lead, either one of the two following scenarios must exist: When the entire StimRouter Lead is at least 50 cm (19.7in.) away from the center of the MR system? s bore and at least 16 cm (6.3 in.) from the end of the RF coil (See Figure 2- 1), the reported whole body averaged specific absorption rate (WB AUDRA) does not exceed 2W/kg at 1.5T or at 3.0T; or When all or part of the StimRouter Lead is either (a) less than 50 cm (19.7 in.) from the center of the MR system? s bore; or (b) less than 16 cm (6.3 in.) from the end of the RF coil, whichever is the furthest distance from the center of the bore (i.e., referred to as the ? Reduced Zone? ), reduced values of WB AUDRA and B1 are utilized in order to result in acceptable tissue temperature increases of 2??C, 5??C, and/or 6??C, whichever is determined by the clinician to be appropriate. Communication is maintained with the patient so that the scan can be promptly terminated in the event of painful nerve stimulation or other adverse event. When the entire StimRouter is outside of the Reduced Zone, the reported wholebody-averaged AUDRA does not exceed 2 W/kg at 1.5 T and 2 W/kg at 3 T. Do not scan patients with a AUDRA level exceeding 2 W/kg. A MR scan performed with a AUDRA level above 2 W/kg may increase the risk of unacceptable MRI-related heating of the implanted StimRouter Lead. When using full body transmit RF coil: When all or part of the StimRouter Lead is inside the Reduced Zone, reduced values of WB AUDRA and B1 should be utilized in order to result in acceptable tissue temperature increases of 2??C, 5??C, and/or 6??C. See Tables 2-1 and 2-2 for the WB AUDRA and B1 values recommended for use when all or part of the StimRouter Lead implant is within the Reduced Zone during the MR procedure. When using head transmit RF coil: Limit head AUDRA to 3.2 W/Kg and otherwise follow normal operation procedures of the MR system for patients when all or part of the StimRouter Lead implant is located at the shoulder or at lower areas of the body. Do not use RF head transmit coil when all or part of the StimRouter Lead implant is located above the level of the acromioclavicular joint. Under these conditions, the maximum calculated temperature rise at the implanted StimRouter Lead did not exceed 0.1??C for the Lead implanted in either the shoulder or any area of the body below the shoulder. Information regarding the precise anatomical position of the implanted StimRouter Lead is necessary for performing routine MRI procedures. Prior to initiating any MR procedure, the clinician should review the patient? s Alarm Service Technician Identification Card, communicate directly with the implanting physician, and/or obtain an x-ray to determine the precise anatomic location of the implanted lead in the patient? s body. Scanning Technologist must print the Pre-MRI Checklist prior to scanning. This needs to be completed during the MRI Scan. The document is located in OneNote under Neuromodulation System-StimRouter. SALLY Richter, [facility], MRI Safety Technologist 02/17/2019 Procedures Procedure Name Priority Date/Time Associated Diagnosis Comments HC HEMOGLOBIN A1C Routine 03/24/2020 4:3 4 PM EDT Ulnar neuropathy of right upper extremity COLONOSCOPY Routine 03/11/2020 1:47 PM EDT CMP W/FASTING GLUCOSE Routine 06/15/2019 6:39 AM EDT U ALBUMIN/CRE RATIO Routine 02/24/2013 1 :45 PM EDT Type II or unspecified type diabetes mellitus without mention of complication, uncontrolled from Last 3 Months or Most Recently Relevant to Health Maintenance Results * (ABNORMAL) Hemoglobin A1c (03/24/2020 4:34 PM EDT) [facility] Hemoglobin A1c 6.2(H) 4.3 - 5.6 % [facility] Comment: Reference Range: 4.3 - 5.6% 5.7 - 6.4% - Increased Risk of Developing Diabetes Mellitus >= 6.5% - Consistent with diagnosis of Diabetes Mellitus In the absence of hyperglycemia (i.e. plasma glucose > 200 mg/dL) or classic symptoms of hyperglycemia a repeat measurement of HbA1c should be performed on a separate sample to confirm the diagnosis. Diagnosis and Classification of Diabetes Mellitus, Diabetes Care 2013; 36: Suppl. 1, H49-47 Estimated Average Glucose 132 mg/dL [facility] Comment: eAG equivalents for HbA1c percentages: HbA1c(%) ?eAG(mg/dL) 6.0 ?126 6.5 ?140 7.0 ?154 7.5 ?169 8.0 ?183 8.5 ?197 9.0 ?212 9.5 ?226 10.0 ? 240 Limitations: The eAG calculation has not been validated on women, individuals below 18 years old and above 70 years old, and individuals with hemoglobinopathies. Additional resources are available on the ADA website. Tony WALTERS, Harmeet J, Jj R, et al. ??Translating the A1C assay into estimated average glucose values. ??Diabetes Care 2008:31(8):0338-2792. Blood specimen (specimen) 03/24/2020 4:34 PM EDT 03/24/2020 4:47 PM EDT Narrative Resulting Agency Comment Spec In Lab Cleveland Torres MD CHEMISTRY ORDERABLES [facility] [place] [address] * COLONOSCOPY (03/11/2020 1:47 PM EDT) COLONOSCOPY [facility] Endoscopy ___ Procedure Date: 03/11/2020 1:47 PM ? Patient Name: Isiah Medrano ? N: [id number] ? Date of : 1965 ? Age: 55 ? Order #: [id number] ? Instrument Name: [id number] ? ___ Procedure: ? Colonoscopy Indications: ? Iron deficiency anemia Providers: ? Lyndsey Edmond RN, Kamlesh ? Sofia Saha MD Referring : ?Sravani Salas Medicines: ? Midazolam 4 mg IV, Fentanyl 175 ? micrograms IV Complications: ? No immediate complications. ___ Procedure: ? Pre-Anesthesia Assessment: ? - Prior to the procedure, a History ? and Physical was performed, and ? patient medications and allergies ? were reviewed. The patient's ? tolerance of previous anesthesia was ? also reviewed. The risks and benefits ? of the procedure and the sedation ? options and risks were discussed with ? the patient. All questions were ? answered, and informed consent was ? obtained. Prior Anticoagulants: The ? patient has taken no previous ? anticoagulant or antiplatelet agents. ? ASA Grade Assessment: II - A patient ? with mild systemic disease. After ? reviewing the risks and benefits, the ? patient was deemed in satisfactory ? condition to undergo the procedure. ? The procedure, indications, benefits, ? risks and alternatives were explained ? to the patient. Specifically ? discussed were potential ? complications including, but not ? limited to, bleeding, perforation, ? infection, missing a cancer, and ? adverse medication reactions. The ? patient was placed in the left ? lateral decubitus position, and a ? digital rectal exam was performed. ? The Colonoscope was inserted in the ? anus and under direct visualization, ? advanced to the cecum, identified by ? appendiceal orifice and ileocecal ? valve. Careful inspection was made as ? the colonoscope was withdrawn. The ? colonoscopy was performed without ? difficulty. The patient tolerated the ? procedure well. The quality of the ? bowel preparation was evaluated using ? the BBPS ([facility] Bowel Preparation ? Scale) with scores of: Right Colon = ? 3, Transverse Colon = 3 and Left ? Colon = 3 (entire mucosa seen well ? with no residual staining, small ? fragments of stool or opaque liquid). ? The total BBPS score equals 9. ? Withdrawal time was 13 minutes. ? Findings: ? The perianal and digital rectal examinations were ? normal. ? The terminal ileum appeared normal. ? The sigmoid colon, transverse colon, ascending colon ? and cecum appeared normal. ? The retroflexed view of the distal rectum and anal ? verge was normal and showed no anal or rectal ? abnormalities. ? Moderate Sedation: ? I was present during the intraservice time as ? documented by the sedation RN. Impression: ?- The examined portion of the ileum ? was normal. ? - The sigmoid colon, transverse ? colon, ascending colon and cecum are ? normal. ? - The distal rectum and anal verge ? are normal on retroflexion view. ? - No specimens collected. Recommendation: ?- Repeat colonoscopy in 10 years for ? screening purposes. ? - Perform a serologic workup for ? celiac disease including: ? transglutaminase antibody (TTG) and ? upper endoscopy if iron deficiency ? anemia continues. ? - Return to referring physician. ? Attending Participation: ? I personally performed the entire procedure. ? Sofia Almanza MD Sofia Almanza MD 03/11/2020 3:09:16 PM This report has been signed electronically. Number of Addenda: 0 Note Initiated On: 03/11/2020 1:47 PM PROVATION 03/11/2020 1:47 PM EDT Sravani Salas AUDITOR APPRAISER GENERAL SURGICAL ORDERABLES PROVATION * (ABNORMAL) CMP w/fasting Glucose (06/15/2019 6:39 AM EDT) [facility] Signature Glucose Fasting 114(H) 65 - 99 mg/dL [facility] Comment: ?Fasting* Glucose Interpretive Criteria Normal ?65-99 mg/dL Impaired Fasting glucose ?100-125 mg/dL Consistent with Diabetes Mellitus ? >or= 126 mg/dL *Fasting is defined as no caloric intake for at least 8 hours In the absence of unequivocal hyperglycemia a plasma glucose value of >or= 126 mg/dL should be repeated on a subsequent day. Diagnosis and Classification of Diabetes Mellitus, Position Statement from the [place] [employer]. ??Diabetes Care, Volume 33, Supplement 1, Sep 2009 Blood Urea Nitrogen 19 10 - 20 mg/dL [facility] Creatinine 0.97 0.80 - 1.50 mg/dL [facility] Sodium 142 135 - 145 mmol/L [facility] Potassium 4.6 3.5 - 5.0 mmol/L [facility] Comment: Please note: ??Patients with WBC >100,000 may have falsely elevated Potassium levels. ??For accurate Potassium quantification in these patients send serum separator tube (gold top) for subsequent determinations. ??Contact the Clinical Chemistry Laboratory if there are any questions. Chloride 106 98 - 107 mmol/L [facility] Carbon Dioxide 24 22 - 31 mmol/L [facility] Anion Gap 12 5 - 15 mmol/L [facility] Calcium 9.5 8.5 - 10.5 mg/dL [facility] Protein, Total 6.5 6.1 - 8.0 gm/dL [facility] Albumin 4.0 3.2 - 5.2 gm/dL [facility] Aspartate Aminotransferase 29 0 - 39 unit/L [facility] Alanine Aminotransferase 35 0 - 55 unit/L [facility] Alkaline Phosphatase 65 40 - 130 unit/L [facility] Bilirubin, Total 0.3 0.2 - 1.3 mg/dL [facility] Est Glomerular Filtration Rate 89 >=60 mL/min/1. 73 m?? [facility] Comment: The eGFR was calculated using the CKD-EPI equation. As with all creatinine based estimates of kidney function, eGFR values calculated with the CKD-EPI equation are not accurate in patients with acute kidney failure, extremes of body mass or the acutely ill. [email or web address] eGFR 103 >=60 mL/min/1. 73 m?? [facility] Comment: The eGFR was calculated using the CKD-EPI equation. As with all creatinine based estimates of kidney function, eGFR values calculated with the CKD-EPI equation are not accurate in patients with acute kidney failure, extremes of body mass or the acutely ill. [email or web address] Blood specimen (specimen) 06/15/2019 6:39 AM EDT 06/15/2019 6:45 AM EDT Narrative Resulting Agency Comment Spec In Lab Rodrigo Conteh MD CHEMISTRY ORDERAB LES [facility] [place] [address] * Microalbumin, urine, random (02/24/2013 1:45 PM EDT) Creatinine, Urine 127 mg/dL CE RNER MILLENNIUM Albumin, Urine 5.2 mg/L CERNE R MILLENNIUM Albumin / Creatinin Ratio, Urine 4 mcg/mg Cr EVGENY MILLENNIUM Comment: Reference Range* Random collection (mcg/mg creatinine) Normal ?<30 Microalbuminuria ?? 30 - 300 Clinical Albuminuria ?? >300 *[place] [employer]. Diabetic Nephropathy. Diabetes Care 1997;(Suppl 1):S24-S27 Exercise within 24 hour, infection, fever, CHF, marked hyperglycemia, and marked hypertension may elevate urinary albumin excretion over baseline values. Urine specimen (specimen) 02/24/2013 1:45 PM EDT 02/24/2013 1:56 PM EDT Narrative Resulting Agency Comment Spec In Lab Brian Bishop MD URINE ORDERABLES EVGENY MILLENNIUM from Last 3 Months or Most Recently Relevant to Health Maintenance Advance Directives * Attempt Cardiopulmonary Resuscitation - Inpatient (Latest Code Status on File) Date Activated Date Inactivated Comments 05/25/2020 9:01 AM 05/25/2020 2:17 PM Question Answer Comments Code Status decision made by: Patient * Full Code Date Activated Date Inactivated Comments 06/10/2019 10:50 PM 06/15/2019 6:33 PM Question Answer Comments Does patient have capacity to make decision: Yes * Full Code Date Activated Date Inactivated Comments 01/20/2016 1:54 PM 01/20/2016 9:10 PM Question Answer Comments Does patient have capacity to make decision: Yes Care Teams Concrete Journeyman Relationship Specialty Start Date End Date Sravani Salas APRN [address] [place] [address] PCP - General Family Medicine 01/15/17
--- OUTSIDE RECORDS SUMMARY | 2024-08-14 01:20 | XMS_ITS | Encounter Summary ---
Author Organization [facility] [place] [address] Care Team Providers Care Infection Control Rn Name Role Phone Sravani Salas APRN Primary Care Provider [phone] Reason for Visit * Reason Onset Date Comments Medication Refill 03/18/2023 Encounter Details Date Type Department Care Team (Late st Contact Info) Description 03/18/2023 Refill [place] [address] Angela Villalobos RN Social History Tobacco Use [...] 10:30 AM EST Office [place] [address] Rodrigo Conteh MD [facility] [place] [address] documented as of this encounter Visit Diagnoses Not on filedocumented in this encounter Care Teams Infection Control Rn Relationship Specialty Start Date End Date Sravani Salas APRN [address] [place] [address] PCP - General Family Medicine 01/15/17 documented as of this encounter
--- OUTSIDE RECORDS SUMMARY | 2024-08-14 01:20 | XMS_ITS | Encounter Summary ---
[facility] Organization [facility] [place] [address] Care Team Providers Care Forklift Driver Name Role Phone Sravani Salas APRN Primary Care Provider [phone] Encounter Details Date Type Department Care Team (Late st Contact Info) Description 01/18/2023 Telephone [place] [phone] Angela Villalobos RN Social History Tobacco Use [...] 10:30 AM EST Office [place] [phone] Rodrigo Conteh MD [facility] [address] [place]CRIN[place] [address] documented as of this encounter Visit Diagnoses Not on filedocumented in this encounter Care Teams Forklift Driver Relationship Specialty Start Date End Date Sravani Salas APRN [address] [place] [address] PCP - General Family Medicine 01/15/17 documented as of this encounter
--- OUTSIDE RECORDS SUMMARY | 2024-08-14 01:20 | XMS_ITS | Encounter Summary ---
Author Organization [facility] Address [address] [place] [address] Care Team Providers Care Senior Pricing Analyst Name Role Phone Unknown, Provider Primary Care Provider Unava ilable Encounter Details Date Type Department Care Team (Late st Contact Info) Description 01/10/2011 Results Only [facility] - [facility] [place] [place] [address], [place] [id number] Reid Baig MD [address] [place] [address] Social History Tobacco Use Types Packs/Day Years [...] Procedure Name Priority Date/Time Associated Diagnosis Comments SURGICAL PATHOLOGY Routine 01/10/2011 0:00 EDT documented in this encounter Results * SURGICAL PATHOLOGY (01/10/2011 0:00 EDT) Pathology Report: SURGICAL PATHOLOGY REPORT ? Reports generated via electronic interface contain original data; ? however they are lacking the format of the original report. ? Caution should be taken when reading/interpreti ng unformatted reports. ? Name: ? SPARKLE, REID E ? Accession #: ? [id number] ? : ? 1965 (Age: 45) ??M ? Collect Date: ? 01/10/2011 ? Location: ? [facility] ? Receive Date: ? 01/11/2011 ? Provider: REID BAIG MD ? Copy to: IFTIKHAR FINE MD ? Final Pathologic Diagnosis: ? A. ?Vas deferens, right, vasectomy: ? 1. ?No specific pathologic features; full cross sections identified. ? B. ?Vas deferens, left, vasectomy: ? 1. ?No specific pathologic features; full cross sections identified. ? Document reviewed and electronically signed by: ? EUSEBIA MARISCALOF MD ? Report ??Date: 01/15/2011 15:08 ? By the signature above, the attending physician certifies that he/she has ? personally conducted a gross and/or microscopic examination of the described ? specimens and rendered or confirmed the above diagnosis. ? Specimen(s) Received: ? A. ?R vas deferens ? B. ? L vas deferens ? Clinical History: ? Not listed ? Gross Description: ? Received in formalin labelled Reid Medrano and right vas deferens is a 0.9 cm in length by 0.2 cm in diameter, samano-brown, tubular soft tissue grossly ?? consistent with a segment of vas deferens. ??Sectioning reveals a samano-white cut ?? surface with a central, pinpoint lumen. ??A single contact representative cross section ?? is submitted as (A). ? Received in formalin labelled Reid Medrano and left vas deferens is a 0.8 cm in length by 0.2 cm in diameter, samano-white, tubular soft tissue grossly ? consistent with a segment of vas deferens. ??Sectioning reveals a samano-white cut ?? surface with a central, pinpoint lumen. ??A single contact representative cross section ?? is submitted as (B). ??(Prabha Rawls)/jay ? End of Report ? [facility] 01/10/2011 01/11/2011 18: 03 EDT us Reid Baig MD PATHOLOGY ORDERABLES Final Resul t [facility] [address] [place] [address] documented in this encounter Visit Diagnoses Not on filedocumented in this encounter Care Teams Senior Pricing Analyst Relationship Specialty Start Date End Date Unknown, Provider, PCP - General 01/11/11 01/24/11 documented as of this encounter
--- OUTSIDE RECORDS SUMMARY | 2024-08-14 01:20 | XMS_ITS | Encounter Summary ---
Author Organization [facility] [address] Care Team Providers Care Radial Saw Operator Name Role Phone Josue Sravani Rosen CADY Primary Care Provider [phone] Encounter Details Date Type Department Care Team (Late st Contact Info) Description 02/28/2023 Telephone [place] [phone] Angela Villalobos RN Social History [...] Telephone Encounter - Angela Villalobos RN - 02/28/2023 11:45 AM EDT Called lawrence back from [facility] to confirm pts insulin regimen. documented in this encounter Plan of Treatment Upcoming Encounters Date Type Department Care Team (Late st Contact Info) Description 08/18/2024 10:30 AM EST Office [place] [phone] Rodrigo Conteh MD [facility] [address] [place] [address] documented as of this encounter Visit Diagnoses Not on filedocumented in this encounter Care Teams Radial Saw Operator Relationship Specialty Start Date End Date Sravani Salas APRN [address] [place] [address] PCP - General Family Medicine 01/15/17 documented as of this encounter
--- OUTSIDE RECORDS SUMMARY | 2024-08-14 01:20 | XMS_ITS | Encounter Summary ---
[place] [address] Care Team Providers Care Secondary School Teacher Librarian Name Role Phone Sravani Salas APRN Primary Care Provider [phone] Encounter Details Date Type Department Care Team (Late st Contact Info) Description 04/15/2023 Telephone [place] [phone] Angela Villalobos RN Social History Tobacco Use [...] Telephone Encounter - Angela Villalobos RN - 04/15/2023 10:16 AM EDT Called pharmacy and confirmed from office notes that pt is not taking the Humalog anymore. Will send in new RX for the Levimir 25 U twice daily. * Telephone Encounter - Angela Villalobos RN - 04/15/2023 10:07 AM EDT Copied from CRM #[id number]. Topic: Specialty Dept CRMs - Medication Issues >> Apr 15, 2023 9:09 AM Ailyn Glass wrote: Medication Issues Specialist Jensen, Aurea R, DESKTOP ADMINISTRATOR Relationship (if other than patient-full name): Pharmacist Mariluz Reason for call: Medication Issue (if symptom based used Triage Subtopic) Message/information for the nurse: Name of Medication: ?? insulin regular CONCENTRATE U-500 (HumuLIN R U-500) 500 unit/mL Solution, 15 U three times a dayafter your meals (3 units justyna on the syringe 3x/day), Disp: 40 mL, Rfl: 4 ?? humaLOG KwikPen 100 unit/mL Insulin Pen, INJECT 10 TO 49 UNITS SUBCUTANEOUSLY THREE TIMES DAILY WITH MEALS, Disp: , Rfl: Issue with the medication: Mariluz requesting clarification on Humulin R vs Humalog that was prescribed by PCP. Can be reached at [phone] documented in this encounter Plan of Treatment Upcoming Encounters Date Type Department Care Team (Late st Contact Info) Description 08/18/2024 10:30 AM EST Office Visit [place] [address] Rodrigo Conteh MD [facility] [address] [place] [address] documented as of this encounter Visit Diagnoses Not on filedocumented in this encounter Care Teams Secondary School Teacher Librarian Relationship Specialty Start Date End Date Sravani Salas APRN [address] [place] [address] PCP - General Family Medicine 01/15/17 documented as of this encounter
--- OUTSIDE RECORDS SUMMARY | 2024-08-14 01:20 | XMS_ITS | Encounter Summary ---
Author Organization [facility] [place] [address] Care Team Providers Care Emr Specialist Name Role Phone Sravani Salas APRN Primary Care Provider [phone] Encounter Details Date Type Department Care Team (Latest Contact Info) Description 01/08/2023 11:30 AM EDT TH Visit (TeleHealth) [place] [id number] Rodrigo Conteh MD [facility] [place] [address] Type 2 diabetes, controlled, with neuropathy; Dyslipidemia; Vitamin D insufficiency Social History Tobacco Use Types Packs/Day Years Used Date Smoking Tobacco: Never Smokeless Tobacco: Former Chew Quit: 01/09/1995 Alcohol Use Standard Drinks/Week Comments No 0 (1 standard drink = 0.6 oz pur e alcohol) Sex and Gender Information Value Date Recorded Sex Assigned at Not on file Gender Identity Not on file Sexual Orientation Not on file documented as of this encounter Last Filed Vital Signs Vital Sign Reading Time Taken Comments Blood Pressure 120/80 01/08/2023 11:10 AM EDT Pulse 70 01/08/2023 11:10 AM EDT Temperature - - Respiratory Rate 12 01/08/2023 11:10 AM EDT Oxygen Saturation - - Inhaled Oxygen Concentration - - Weight 99.8 kg (220 lb) 01/08/2023 11:10 AM EDT Height 170.2 cm (5' 7) 01/08/2023 11:10 AM EDT Body Mass Index 34.46 01/08/2023 11:10 AM EDT documented in this encounter Patient Instructions * Patient Instructions* Rodrigo Conteh MD - 01/08/2023 11:30 AM EDT Plan: 1. Medication: Adjustment of diabetes treatment regimen: To switch Levemir vial to U500 vial 150 units 2x/day qAM and PM (30 units justyna on the syringe 2x/day of U500) to keep fasting done 90-150 range. He prefers insulin vial to help reduce the cost. will allow him to adjust the dose by 5-10 units to keep fasting BG at the target of 90-150 range To stop Humalog kwik pen 40 units [...] 4. Lab: To check lab locally at [facility] lab in [place] soon as ordered (it was higher A1c 9.6% on 05/22/21=>then down 8.9% in Oct 2021) Orders Placed This Encounter Procedures Hemoglobin A1c Basic Metabolic Panel (non-fasting) Vitamin D, 25-Hydroxy 5. RTC: Next visit in 3 months by VDO. Will check HbA1c, BMP at local lab at the time. Rodrigo Conteh MD, PhD, FACE, FACP documented in this encounter Progress Notes * Rodrigo Conteh MD - 01/08/2023 11:30 AM EDT Endocrine Clinic Name: [facility] : 1965 Date: 01/08/2023 PCP: Sravani Salas APRN Reason for visit: Uncontrolled diabetes type 2 switched from U-500 insulin to Levemir and humalin-Ror Humalog kwikpen since 2018 with better A1c 7.3-8s% initially (down from A1c 11.5%) but lately noted higher A1c up to 9.6 and high BG avg 200s now using total insulin over 200 units/day => will need to switch back to U500 insulin BID to keep BG down under control again soon. Patient verbally consents to this telehealth visit and understands that this visit may be billed, similar to a clinic office visit. I provided care to the patient today via VDO plus telephone to help with the audio portion. The total time associated with this visit was 30 minutes. Diabetes treatment regimen: Glimiperide 4 mg bid and MetforminER 500 mg bid lowered dose due to Cr 1.6 with eGFR 45 (ok to use low dose Metformin for eGFR >30) Levemir 30-40 units BID Correction (see addendum below): *Not using Humalog kwikpen but U-500 insulin 30-50u BID and extra for high in the middle of the night p.r.n. Typically high in the middle of the night without eating requiring U-500 another 40-50u to keep BG down (*he used to take U500 pen 150-175 units i.e. 30-35u on the syringe BID prior) Addendum 02/07/23: Info from Maya benitez local CDE at [facility] for updated insulin regimen: Called Reyna visual educator from [facility]. We discussed pts insulin regimen. Pt says he's taking levemir 30 units 6AM 40 units after dinner U500 1-10 units and not more. The most he takes is 10 units. daily 6am 6-8 units, after dinner 10 units, then said if he's still high he will take it between meals, he also takes it at 2am frequentlybecause his BG is high then. He is not taking the Humalog kwikpen anymore. This is not the insulin regimen that you have in his chart. Reyna call back number is [phone]. FSBG: checking FSBG 4-10x/day using Libre2 CGM, ranging between 60s-350s mg/dl Time in Range of 70-180 mg/dl = 42 % Time above range > 180 mg/dl = 18% high + 39% very high BG Time below range <70 mg/dl = 0 % Most recent HA1c: pending soon (was 8.9%-9.6% since 05/22/21, 7.3% on 09/21/19, 11.5% on 12/26/18, 7.7% on 06/16/18, 10.2% on 08/11/17, 11.5% on 07/01/17, 9..2% in , 11.5% on 09/15/15, 12.4% 06/10/15 , 14.6% on 06/19/13 and 9.5% on 02/24/13) Ref. Range 02/24/2013 13:09 06/19/2013 13:57 06/10/2015 12:30 09/15/2015 12:06 04/03/2016 10:15 Hemoglobin A1C Range: 4.3 - 5.6 % 9.5 (H) 14.6 (H) 12.4 (H) 11.5 (H) 9.2 (H) => 11.5%=> 10.2%(08/11/17) => 7.7% (06/16/18) => 11.5% (12/26/18) => 7.3% (09/23/19) => 9.6% (05/22/21) => 8.9% (Oct 2021) Hypoglycemia during the interval time: rarely low in 40s-60s. He noted sweating and shakiness but sometimes did not feel low at all when <40 in the past suggestive of hypoglycemic unawareness. Diet: low fat/low carb diet Exercise: walking Complications: no changes during the interim. Prevention: same as last visit recently. He used to have admission in Jun 2019 for 4 days for S/A and depression and I saw him in the hospital and adjusted his insulin regimen from U500 to Levemir and Humalog basal-bolus to give him more flexibility if he skips meal or eats more or less carb. He is pleased to see that his A1c came back down from 11.5 to 7.3% at target initially. We then switched Levemir pen to vial to help reduce the cost and also changed Humalog pen to vial of Humulin-R for the injections but then Humulin-R vial was not covered so he has to switch back to Humalog kwikpen. He had to quit using victoza in December 2016 due to high cost ($150/mo) and his A1c initially went downquickly after using U-500 BID injection since Jun 2017 (from 11.5% to 7s% range). However, his A1c bounced back high again when he missed AM dose often since U-500 does not last 24h. He tried Tasha CGM to help monitor BG closely but it's too costly => then ok lately with good coverage. He used to have severe hypoglycemia requiring 911 call in 2017 so his ex- (RN) does not want him to have low BG again and rather kept BG at the high end resulting in very high A1c in Dec 2018. He got and then lived with his parents (age 87). His depression has been more stable on current Rx. He knows that good DM control is critical for prevention of DM complications and slow down further progression of neuropathy and ED. Denies any changes in vision and has been using the same pair of eyeglasses and recent eye exam was ok. No CP, SOB, GI issues, leg swelling or foot ulcer. ROS: Please see HPI, all others negative Patient Active Problem List Diagnosis Code Adjustment [...] I25.10 Chronic pain G89.29 Erectile dysfunction N52.9 Current Outpatient Medications on File Prior to Visit Medication Sig Dispense Refill humaLOG KwikPen 100 unit/mL Insulin Pen INJECT 10 TO 49 UNITS SUBCUTANEOUSLY THREE TIMES DAILY WITHMEALS metFORMIN XR (Glucophage XR) 500 mg Tablet Sustained Release 24 hr Take 1 tablet by mouth 2 times daily. 180 tablet 3 insulin detemir U-100 (Levemir U-100 Insulin) Solution 35 units qAM and 10-15 units qPM (Patient taking differently: 30 Units 2 times daily.) 50 mL 4 glimepiride (AMARYL) 4 mg Tablet Take 1 tablet by mouth 2 times daily. 180 tablet 3 FreeStyle Tasha 2 Freeburn Misc 1 each by Other route daily. Indications: diabetes mellitus 1 each 0 FreeStyle Tasha 2 Sensor Kit 1 each by Other route daily. Indications: diabetes mellitus 6 kit 3 [DISCONTINUED] RX ADULT COMPOUNDED MEDICATION 2-4 grams To affected area 3-4 Times daily PRN pain Dispense 240 grams (Patient not taking: Reported on 03/28/2022) 1 each 3 metoprolol succinate XL (Toprol-XL) 25 mg Tablet Sustained Release 24 hr daily. [DISCONTINUED] humuLIN R Solution *2 - 3 times daily* Magtab 84 mg Tablet Sustained Release Indications: 3 times a week imipramine (Tofranil) 50 mg Tablet nightly. ARIPiprazole (ABILIFY) 10 mg Tablet [address] (CYMBALTA) 60 mg Capsule, Delayed Release(E.C.) daily. ferrous sulfate 325 mg (65 mg iron) Tablet daily. nitroGLYcerin (NITROSTAT) 0.4 mg Tablet, Sublingual as needed for Chest pain. sertraline (ZOLOFT) 100 mg Tablet daily. traZODone (DESYREL) 100 mg Tablet nightly. insulin needles, disposable, (BD ULTRA-FINE MINI PEN NEEDLE) 31 gauge x 3/16 Needle by Other route. 1 box = 100 insulin PEN needles. 1 each 3 Ibuprofen 200 mg Capsule Take 400 mg by mouth 3 times daily as needed (pain). CHOLECALCIFEROL, VITAMIN D3, (VITAMIN D3 ORAL) Take 1 tablet by mouth nightly. isosorbide mononitrate (IMDUR) 30 mg Tablet Sustained Release 24 hr Take 60 mg by mouth daily. Insulin Syringe-Needle U-100 0.5 mL 31 gauge x 5/16 Syringe 1 each by Misc.(Non- Drug; Combo Route) route 2 times daily. 100 Syringe 11 NALTREXONE HCL (NALTREXONE ORAL) Take 1 mg by mouth 4 times daily as needed (pain). Indications: pttakes 4.5 mg daily pen needle, diabetic (NOVOFINE PLUS) 32 gauge x 1/6 Needle 1 each by Misc.(Non- Drug; Combo Route) route 4 times daily as needed. 100 each 11 allopurinol (ZYLOPRIM) 300 mg Tablet Take 300 mg by mouth nightly. aspirin 325 mg Tablet Take 325 mg by mouth daily. Ordered for Heart attack reasons gabapentin (NEURONTIN) 300 mg Capsule Take 900 mg by mouth 4 times daily. 3 lisinopril (PRINIVIL;ZESTRIL) 20 mg Tablet Take 40 mg by mouth nightly. magnesium oxide (MAG-OX) 400 mg Tablet Take 400 mg by mouth nightly. 3 multivitamin (THERAGRAN) Tablet Take 1 tablet by mouth daily. atorvastatin (LIPITOR) 40 mg Tablet Take 40 mg by mouth nightly. Blood Sugar Diagnostic (ONE TOUCH ULTRA TEST) test strip 1 each by Other route 4 times daily. Use as instructed 400 each 3 Insulin Syringe-Needle U-100 (BD INSULIN SYRINGE ULT-FINE II) 1 mL 31 x 5/16 Syrg 1 each by Misc.(Non-Drug; Combo Route) route 2 times daily (before meals). 100 each 11 No current facility-administered medications on file prior to visit. Allergies Allergen Reactions Eptifibatide Other (See Comments) thrombocytopenia Amoxicillin Other (See Comments) Unknown Social History Socioeconomic History Marital status: Spouse name: Not on file Number of children: Not on file Years of education: Not on file Highest education level: Not on file Occupational History Not on file Tobacco Use Smoking status: Never Smokeless tobacco: Former Types: Chew Quit date: 01/09/1995 Vaping Use Vaping Use: Never used Substance and Sexual Activity Alcohol use: No Drug use: No Sexual activity: Not Currently Other Topics Concern Not on file Social History Narrative Not on file Social Determinants of Health Financial Resource Strain: Not on file Food Insecurity: Not on file Transportation Needs: Not on file Physical Activity: Not on file Housing Stability: Not on file FAMILY HISTORY Family History Problem Relation Age of Onset Diabetes Brother Physical exam BP 120/80 Pulse 70 Resp 12 Ht 170.2 cm (5' 7) Wt 99.8 kg (220 lb) BMI 34.46 kg/m?? Appearance: mildly obese, very pleasant, NAD HEENT: PERRLA, EOMI, no lid lag or exophthalmos Neck: supple, no goiter visible Ext: normal skin appearance no edema Neuro: no weakness, non-focal, no facial asymmetry. PE from last in-person visit: Appearance: mildly obese, pleasant, NAD, here with his HEENT: PERRLA, EOMI Neck: no goiter Abdomen: benign, NT, ND Ext: no pitting edema no foot ulcer Rt arm with bandage s/p Rt ulnar nerve transposition surgery Neuro: no weakness Results for SPARKLE, REID Jess ( ) as of 12/26/2018 Ref. Range 02/24/2013 13:09 06/19/2013 13:57 06/10/2015 12:30 09/15/2015 12:06 04/03/2016 10:15 07/01/2017 10:47 06/16/2018 11:51 12/26/2018 14:17 Hemoglobin A1C Range: 4.3 - 5.6 % 9.5 (H) 14.6 (H) 12.4 (H) 11.5 (H) 9.2 (H) 11.5 (H) => 7%s at OSH 7.7 (H) 11.5 (H) => 7.3% (09/21/19) Chol, Total Range: <=199 mg/dL 192 HDL Range: >=40 mg/dL 37 (L) LDL Chol Direct Latest Units: mg/dL 114 (H) 63 TSH 0.27 - 4.20 mcIU/mL 1.03 1.37 C-Peptide Range: 1.1 - 4.4 ng/mL 7.3 (H) Ref. Range 02/24/2013 13:45 04/03/2016 10:15 07/01/2017 10:47 06/16/2018 11:51 06/15/2019 06:39 TSH 0.27 - 4.20 mcIU/mL 1.37 1.08 C-Peptide Range: 1.1 - 4.4 ng/mL 7.3 (H) Chol, Total Latest Units: mg/dL 93 HDL Latest Units: mg/dL 34 Chol/HDL Ratio Latest Units: ratio 2.7 Triglycerides Latest Units: mg/dL 154 LDL Cholesterol Latest Units: mg/dL 28 LDL Chol Direct Latest Units: mg/dL 63 Lipid Interpretation Unknown See Note 25-OH Vit D Total Range: 30 - 100 ng/mL 61 70 Vitamin B-12 Range: 207 - 974 pg/mL 600 644 Alb/Cr Ratio, Random <30 mcg/mg Cr 4 Outside lab 05/22/21 Below are the results from your Lab tests on 05/22/21 - A1c = 9.6% (was 7.3% in September 2019 and 11% in Jun 2019), not under control for diabetes. - Normal thyroid (TSH 1.31) - 25vitamin D 54, ok (normal 30-100) - Slightly high kidney test (Cr 2.0) with eGFR of 35 (still >30 so OK to resume taking a low dose metforminER 500 mg 2x/day to reduce insulin resistance and help reduce A1c back down) - Normal electrolytes (Na 136, K 4.9, Ca 8.8) - LDL cholesterol 57, excellent! - Urine microalbumin/Cr = normal (no protein leakage thru the kidney which is good news for you) Lab (PCP) Date 10/17/2101/2110/25/22 01/09/23 A1c 8.9% 9.8% 9.2% 8.8% BMP Ok except for Cr 1.6 (eGFR 50) Assessment: 57 y.o. man with uncontrolled type 2 Diabetes with insulin resistance and switched U500 insulin to Levemir and Humalog with A1c down from 11.5% to 7.3% but then back up high at 9.6% during the interim with a lot more insulin need ~ 200 unitslday but still high avg BG in 200s. So we will try to switch back to U500 to reduce the number of shots from 5-6x/day to 2-3x/day. His depression is stable. He used to lose weight down from 225 to 185 lbs and then gained back to 205 lbs and now 220 lbs over the past year with a lot more insulin need due to more insulin resistance (~200 units/day instead of40-70 units/day and used to take 175-300 units/day prior). He had high c-peptide 7.3 from his own insulin production and responded to oral agents which help to reduce insulin need. Although victoza was too costly $150/mo even with insurance coverage. He has been using Libre2 CGM to closely monitor BG instead of checking finger stick blood glucose often daily. As his kidney function is slightly impaired, he can continue using metforminER 500 mg bid as he noted high BG after he quit it since March(Cr 1.6 with eGFR 45). OK to use metforminER low dose with CKD3 while eGFR is >30. Complication Risk Status: + complications present with painful peripheral neuropathy and ED, mild CKD stage 3, and some degree of hypoglycemic unawareness. Also, treated for CAD s/p stent RCA in 01/07 at young age of 42, HTN, Chol, gout and asymptomatic ontreatment. Plan: 1. Medication: Adjustment of diabetes treatment regimen: To switch Levemir vial to U500 vial 150 units 2x/day qAM and PM (30 units justyna on the syringe 2x/day of U500) to keep fasting done 90-150 range. He prefers insulin vial to help reduce the cost. will allow him to adjust the dose by 5-10 units to keep fasting BG at the target of 90-150 range Addendum 03/04/23 => see addendum below for an update info from local APRIL [facility]WARDS (Maya) who sent 6fusion download during 01/29/23-02/11/23: Review of his CGM [...] 4. Lab: To check lab locally at [facility] lab in [place] soon as ordered (it was higher A1c 9.6% on 05/22/21=>then down 8.9% in Oct 2021) Orders Placed This Encounter Procedures Hemoglobin A1c Basic Metabolic Panel (non-fasting) Vitamin D, 25-Hydroxy 5. RTC: Next visit in 3 months by VDO. Will check HbA1c, BMP at local lab at the time. We have reviewed our plan outlined above with the patient and patient verbalized understanding. Allquestions were answered and most of the time was spent on counseling about medication adjustment and proper use of insulin, diet, exercise, cardiac risk prophylaxis, the diagnostic and therapeutic decisions, and coordination of care. Rodrigo Conteh MD, PhD, FACE CC: Sravani Salas APRN documented in this encounter Plan of Treatment Upcoming Encounters Date Type Department Care Team (Late st Contact Info) Description 08/18/2024 10:30 AM EST Office [place] [address] Rodrigo Conteh MD [facility] [place] [address] documented as of this encounter Visit Diagnoses Diagnosis Type 2 diabetes, controlled, with neuropathy Type II or unspecified type diabetes mellitus with neurological manifestations, not stated as uncontrolled Dyslipidemia Other and unspecified hyperlipidemia Vitamin D insufficiency Unspecified vitamin D deficiency Type 2 diabetes mellitus with hyperglycemia, with long-term current use of insulin Vitamin D insufficiency Unspecified vitamin D deficiency Dyslipidemia Other and unspecified hyperlipidemia documented in this encounter Care Teams Emr Specialist Relationship Specialty Start Date End Date Sravani Salas APRN [address] [place] [address] PCP - General Family Medicine 01/15/17 documented as of this encounter
--- OUTSIDE RECORDS SUMMARY | 2024-08-14 01:20 | XMS_ITS | Encounter Summary ---
Author Organization [facility] [place] [address] Care Team Providers Care Manager Chemistry Name Role Phone Sravani Salas APRN Primary Care Provider [phone] Encounter Details Date Type Department Care Team (Late st Contact Info) Description 01/18/2023 [place] [phone] Angela Villalobos RN Social History Tobacco Use [...] 10:30 AM EST Office [place] [phone] Rodrigo Conteh MD [facility] [place] [address] documented as of this encounter Visit Diagnoses Not on filedocumented in this encounter Care Teams Manager Chemistry Relationship Specialty Start Date End Date Sravani Salas APRN [address] [place] [address] PCP - General Family Medicine 01/15/17 documented as of this encounter
--- OUTSIDE RECORDS SUMMARY | 2024-08-14 01:20 | XMS_ITS | Encounter Summary ---
Author Organization [facility] [place] [address] Care Team Providers Care Cpc Name Role Phone Sravani Salas Silas CADY Primary Care Provider [phone] Encounter Details Date Type Department Care Team (Late st Contact Info) Description 02/07/2023 Tele[place] [phone] Angela Villalobos RN Social History Tobacco Use [...] Telephone Encounter - Angela Villalobos RN - 02/07/2023 11:06 AM EDT Called Reyna hematology nurse educator from [facility]. We discussed pts insulin regimen. Pt says [...] his chart. Reyna call back number is [phone]. documented in this encounter Plan of Treatment Upcoming Encounters Date Type Department Care Team (Late st Contact Info) Description 08/18/2024 10:30 AM EST Office [place] [address] Rodrigo Conteh MD [facility] [place] [address] documented as of this encounter Visit Diagnoses Not on filedocumented in this encounter Care Teams Cpc Relationship Specialty Start Date End Date Sravani Salas APRN [address] [place] [address] PCP - General Family Medicine 01/15/17 documented as of this encounter
--- OUTSIDE RECORDS SUMMARY | 2024-08-14 01:20 | XMS_ITS | Encounter Summary ---
Author Organization [facility] [place] [address] Care Team Providers Care Irish Moss Gatherer Name Role Phone Sravani Salas APRN Primary Care Provider [phone] Reason for Visit * Reason Onset Date Comments Medication Refill 04/15/2023 Encounter Details Date Type Department Care Team (Late st Contact Info) Description 04/15/2023 Refill [place] [address] Angela Villalobos RN Social History Tobacco Use [...] 10:30 AM EST Office Visit [place] [address] Rodrigo Conteh MD [facility] [place] [address] documented as of this encounter Visit Diagnoses Not on filedocumented in this encounter Care Teams Irish Moss Gatherer Relationship Specialty Start Date End Date Sravani Salas APRN [address] [place] [address] PCP - General Family Medicine 01/15/17 documented as of this encounter
--- OUTSIDE RECORDS SUMMARY | 2024-08-14 01:20 | XMS_ITS | Encounter Summary ---
Author Organization [facility] Address [address] [place] [address] Care Team Providers Care Grave Digger Name Role Phone Unavailable Primary Care Provider Unavailabl e Encounter Details Date Type Department Care Team (Late st Contact Info) Description 03/10/2021 Lab Requisition [facility] Pathology & Laboratory Medicine - [facility] [address], [place] [id number] Outr Resulting Lab, Provider Social History Tobacco [...] Associated Diagnosis Comments PSA TOTAL, DIAGNOSTIC Routine 03/09/2021 11:45 EDT documented in this encounter Results * PSA TOTAL, DIAGNOSTIC (03/09/2021 11:45 EDT) PSA 0.6 0.0 - 3.5 ng/mL 03/10/2021 17:59 EDT [facility] Blood VENOUS BLOOD / Unknown 03/09/2021 11:45 EDT 03/10/2021 15:58 EDT Narrative [facility] - 03/10/2021 17:59 EDT NOTE: Serum PSA concentration should not be interpreted as absolute evidence for the presence or absence of malignant disease. Assayed on Siemens ADVBuildingOpsaur XPT using chemiluminescent technology.??Values obtained by using different assay methods cannot be used interchangeably. us Provider Outr Resulting Lab CHEMISTRY & BLOOD GA S ORDERABLES Final Result [facility] [address] [place] [address] documented in this encounter Visit Diagnoses Not on filedocumented in this encounter
--- OUTSIDE RECORDS SUMMARY | 2024-08-14 01:20 | XMS_ITS | Encounter Summary ---
Author [facility] [place] [address] Care Team Providers Care License Examiner Name Role Phone Sravani Salas APRN Primary Care Provider [phone] Encounter Details Date Type Department Care Team (Late st Contact Info) Description 02/19/2023 Telephone [place] [phone] Carolyn Cervantes Social History Tobacco Use Types [...] 10:30 AM EST Office [place] [phone] Rodrigo Conteh MD [facility] [place] [address] documented as of this encounter Visit Diagnoses Not on filedocumented in this encounter Care Teams License Examiner Relationship Specialty Start Date End Date Sravani Salas APRN [address] [place] [address] PCP - General Family Medicine 01/15/17 documented as of this encounter
--- OUTSIDE RECORDS SUMMARY | 2024-08-14 01:21 | XMS_ITS | Encounter Summary ---
Author Organization [facility] [place] [address] Care Team Providers Care Mobile Lounge Driver Name Role Phone Sravani Salas APRN Primary Care Provider +1 [phone] Encounter Details Date Type Department Care Team (Late st Contact Info) Description 01/05/2021 8:00 AM EDT Office Visit Functional Hindu Program at [facility] [address] [place] [address] Isiah Taylor, PT Pain of right upper extremity; Ulnar neuropathy of right upper extremity Social History Tobacco Use Types Packs/Day Years [...] as of this encounter Miscellaneous Notes * Treatment - Therapy - Isiah Taylor, PT - 01/05/2021 8:00 AM EDT P Physical Therapy Note [facility] Day 13 Protocol Subjective: Isiah returns today for a scheduled follow up appointment with [facility]; he reports feeling stronger, optimistic about ability to do his job by the end of the program. Reports he still has burning sx in his arm. Objective: Treatment Received: Refer to [facility] protocol for explanation of program/physical therapy details. 1. Therapeutic and Functional Exercise: See [facility] flow sheets for progression. Strengthening and conditioning designed according to personal functional recovery goals and [facility] protocol was: (x) Completed ( ) Not completed 2. Home Exercise Program: Reviewed and modified current home exercise program. The Home Exercise Program was: (x) Unchanged ( ) Modified 3. Neurological Assessment: (x) No change in status ( ) Change in status 4. Stretching and Relaxation Training Sessions: (x) Completed ( ) Not completed Assessment: Isiah is progressing as planned with quota based training. Plan: Return for follow up with FRP per protocol. Length of visit: Participated in program physical activity from 8:00 a.m. through 2:30 p.m. today. During that time, a total of 45 minutes was spent to develop, monitor, and progress individualized physical therapy strategies. 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
--- OUTSIDE RECORDS SUMMARY | 2024-08-14 01:21 | XMS_ITS | Encounter Summary ---
Author Organization [facility] [place] [address] Care Team Providers Care Stretcher And Drier Name Role Phone Sravani Salas APRN Primary Care Provider [phone] [phone] Encounter Details Date Type Department Care Team (Late st Contact Info) Description 01/05/2021 Telephone [facility] [place] [phone] Terri Chicas RN Social History Tobacco Use Types Packs/Day [...] 10:30 AM EST Office Visit Endocrinology at [place] [phone] Rodrigo Conteh MD [facility] [place] [address] documented as of this encounter Visit Diagnoses Not on filedocumented in this encounter Care Teams Stretcher And Drier Relationship Specialty Start Date End Date Sravani Salas APRN [address] [place] [address] PCP - General Family Medicine 01/15/17 documented as of this encounter
--- OUTSIDE RECORDS SUMMARY | 2024-08-14 01:21 | XMS_ITS | Encounter Summary ---
Author Organization [facility] [place] [address] Care Team Providers Care Ux Designer Name Role Phone Sravani Salas APRN Primary Care Provider [phone] [phone] Reason for Visit * Reason Comments Right Arm Pain Encounter Details Date Type Department Care Team (Late st Contact Info) Description 01/12/2021 8:00 AM EDT Office Visit Functional Yarsani Program at [facility] [address] [place] [address] Briana Crane, OT Ulnar neuropathy of right upper extremity Social [...] on file documented as of this encounter Progress Notes * Briana Crane OT - 01/12/2021 8:00 AM EDT P Occupational Therapy Note FRP Re-evaluation/Final Testing [facility] Day 18 Protocol Subjective: Mr. Medrano returns today for a scheduled follow up appointment with [facility]. He reports that he is glad he came to [facility] and that he is happy with the progress he has made so far. Objective: Refer to [facility] protocol for details and explanation of each activity. Mr. Medrano participated in the following activities: AM Re-evaluation ( X ) Completed ( ) Not completed AM stretch ( X ) Completed ( ) Not completed PM Session of functional conditioning ( X ) Completed ( X ) Completed: blinded weight assessment activity ( ) Not Completed Re-evaluation assessed functional strength, work readiness, and status of goals. Discussed the concept of a work readiness date in preparation for discharge tomorrow. Outlined a specific home lifting program with Mr. Medrano for him to continue progressing his functional capacities after discharge. Physical Capacity Test Results: Lifting: (pounds/heart rate) First Day of FRP End of Program 4 Week Follow-Up ?? Repetitive Floor to Waist 60/115? Repetitive Waist to Shoulder ??[address]13 ? 1-Time Maximum 30 ??80 ? 2-Handed Carry - 50 ft 20 ??50 ? Work Demand Level Light ??Medium ? The results of this testing must be integrated with clinical findings and other observations to derive a final assessment of work capacity. ?? [facility] Occupational Performance Measure Results - 3 Month Occupational Goals: Occupational Goals at Beginning of FRP* P S Current Status: End of Program Current Status:1-month Follow-up P S Work/Productive Activity: Unclear n/a ??n/a ??Still unclear, will be meeting with his Voc Rehab Counselor for job searching ? Recreation/Leisure: be able to walk for an hour without a break 4 2 ??Walking about 30 minutes during FRP ? Resume hunting - manage firearm, carry kill, hike in jung 1 1 ??Not tried yet ? Be able to ride 4-mahoney over bumpy terrain 1 1 ??Not tried yet ? Daily Living (ADL, IADL): be able to sleep for 6-7 hours/night 3 2 ??Still sleeping about 3-4 hours/night ? be able to help his elderly parents get off the floor if they fall 4 2 Not tried yet ? be able operate a chain saw to cut firewood, split and stack wood 1 1 ??Not tried yet ? be able to maintain his vehicle 1 1 ??Not tried yet ? be able to mow the lawn 1 1 Was able to mow part of his lawn ? Total 16 11 Total ? Mean score 2 1.38 Mean scores ? Lifting Goal: 50 ? Liftin pounds Change from Day 1 ? *Mckeon: P=Performance Score S=Satisfaction with Performance Score Vocational Planning: Job to return to: Unsure Plan to start work at the end of the program: Working with Voc Rehab to find appropriate work within his capacities a) Anticipated work readiness date: 01/16/21 i) with restrictions: as per workers compensation form Assessment: Mr. Medrano continues to work according to protocol in order to reach his functional goals. He has made substantial progress towards his 3 month functional recovery goals. Please see also short term OT goals in initial note. Plan: Return for follow up with FRP per protocol. Length of Treatment: Mr. Medrano participated in program activities from 8:00 a.m. through 2:30 p.m today. During that time, a total of 15 minutes was spent re-testing physical performance and a totalof 30 minutes was spent implementing individualized occupational therapy strategies. 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
--- OUTSIDE RECORDS SUMMARY | 2024-08-14 01:21 | XMS_ITS | Encounter Summary ---
[place] [address] Care Team Providers Care Community Resource Consultant Name Role Phone Sravani Salas APRN Primary Care Provider [phone] [phone] Encounter Details Date Type Department Care Team (Late st Contact Info) Description 03/10/2021 Tele[place] [phone] Angela Villalobos RN Social History Tobacco Use [...] Telephone Encounter - Angela Villalobos RN - 03/13/2021 8:30 AM EDT Nurse called PT PCP and asked for PT lab results to be faxed to us. * Telephone Encounter - Angela Villalobos RN - 03/10/2021 12:18 PM EDT Pt doctors office called stating that his kidney function has gotten worse at 1.6 and his GFR is 45. His doctor has requested that he be taken off metformin. They would like to know what you would like to do based on this information. Nurse will fax PCP back with plan at [phone] documented in this encounter Plan of Treatment Upcoming Encounters Date Type Department Care Team (Late st Contact Info) Description 08/18/2024 10:30 AM EST Office [place] [address] Rodrigo Conteh MD [facility] [place] [address] documented as of this encounter Visit Diagnoses Not on filedocumented in this encounter Care Teams Community Resource Consultant Relationship Specialty Start Date End Date Sravani Salas APRN [address] [place] [address] PCP - General Family Medicine 01/15/17 documented as of this encounter
--- OUTSIDE RECORDS SUMMARY | 2024-08-14 01:21 | XMS_ITS | Encounter Summary ---
Author Organization [facility] [place] [address] Care Team Providers Care Circular Head Saw Operator Name Role Phone Josue Sravani Rosen CADY Primary Care Provider [phone] [phone] Encounter Details Date Type Department Care Team (Late st Contact Info) Description 12/30/2020 11:00 AM EDT Office Visit Functional Catholic Program at [facility] [address] [place] [address] Sandra Hatch APRN [facility] [address] Ulnar neuropathy of right upper extremity Social [...] as of this encounter Progress Notes * Sandra Hatch APRN - 12/30/2020 11:00 AM EDT 12/30/2020 [id number] Isiah Medrano Chief complaint requiring rehabilitation: right arm pain FUNCTIONAL RSTORATION PROGRAM REHABILITATION TRAINING LECTURE Presenter: Sandra Hatch APRN CHRONIC PAIN AND THE NERVOUS SYSTEM LECTURE. This one hour lecture begins with a review of the patho-anatomic model of pain transmission and reviews basic neuro anatomy . The relationship between pain and cognitive states is reviewed. As is the concept of central sensitization. A discussion regarding coping skills such as meditation, mindfulness and cognitive restructuring is discussed neuroscience There is an in depth discussion of specific acute pain experiences. Individuals??? thoughts and beliefs about the significance of the pain and how those thoughts determine what actions patients took about their pain are examined. Outcomes are described and discussed. Alternative thought and action p atterns are reviewed. Techniques for distinguishing hurt from harm are reviewed along with thought re-framing, relaxation techniques and physical self-care strategies. SELF-CARE POINTS Is this pain different from what I have experienced before? Is there nerve damage: loss of strength, sensation, bowel or bladder control? 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
--- OUTSIDE RECORDS SUMMARY | 2024-08-14 01:21 | XMS_ITS | Encounter Summary ---
Author Organization [facility] [place] [address] Care Team Providers Care Roller Skater Name Role Phone Sravani Salas APRN Primary Care Provider [phone] [phone] Reason for Visit * Reason Comments Right Arm Pain Encounter Details Date Type Department Care Team (Late st Contact Info) Description 01/09/2021 8:00 AM EDT Office Visit Functional Mu-Ism Program at [facility] [address] [place] [address] Briana Crane, OT Ulnar neuropathy of right [...] Miscellaneous Notes * Treatment - Therapy - Briana Crane OT - 01/09/2021 8:[address] [facility] Occupational Therapy Note [facility] Day 15 Protocol Subjective: Mr. Medrano returns today for a scheduled follow up appointment with [facility]. He reports that he feels like he is using his right arm more, even though it still hurts. Objective: Refer to [facility] protocol for details and explanation of each activity. Mr. Medrano participated in the following activities: Functional Therapy: 1. AM Session of functional conditioning ( X ) Completed ( ) Not Completed 2. PM Session of functional conditioning ( X ) Completed ( ) Not Completed Instructed in 30 minutes of mindfulness meditation activity focusing on Progressive Relaxation. Participated in a 20 minute outdoor walk for 0.6 miles. Individualized Treatment: Increased resistance levels of functional conditioning exercises according to personal recovery goals. Continued to monitor form with heavier lifting to ensure good body mechanics, safety and efficiency. Demonstrates good lifting form and consistent use of bilateral upper extremities when doing 2-handed functional conditioning exercises. Weekend Home Program: Reviewed Mr. Medrano's participation in assigned home exercise program over the past weekend. He reports he was able to complete his home program: Walking 20 minutes: completed Stretching twice a day: completed Functional lifting: completed Mindfulness meditation: completed Please see goals in initial OT evaluation report from Day 1. Daily functional conditioning progressis documented on a flow sheet which is available on request. Assessment: Mr. Medrano continues to work according to protocol in order to reach his functional goals. He had a good understanding of today's conditioning principles and participated actively in progression of function. Plan: Return for follow up with FRP per protocol. Continue training according to planned progressions towards functional recovery goals. Length of Treatment: Mr. Medrano participated in program activities from 8:00 a.m. through 2:30 p.m.today. A total of 45 minutes was spent during that time to establish and implement individualized occupational therapy strategies. Care was provided by both an Occupational Therapist and Assistive Technology Specialist, TYRON Gibson. 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
--- OUTSIDE RECORDS SUMMARY | 2024-08-14 01:21 | XMS_ITS | Encounter Summary ---
Author Organization [facility] [place] [address] Care Team Providers Care Ventilator Specialist Name Role Phone Sravani Salas APRN Primary Care Provider [phone] [phone] Reason for Visit * Reason Comments Right Arm Pain Encounter Details Date Type Department Care Team (Late st Contact Info) Description 01/05/2021 8:00 AM EDT Office Visit Functional Confucianist Program at [facility] [address] [place] [address] Briana Crane, OT Ulnar neuropathy of right [...] - Therapy - Briana Crane OT - 01/05/2021 8:00 AM EDT [facility] Occupational Therapy Note [facility] Day 13 Protocol Subjective: Mr. Medrano returns today for a scheduled follow up appointment with [facility]. He reports that he is thinking it might be a good idea to meet together with his Voc Rehab Counselor before discharge. Objective: Refer to [facility] protocol for details and explanation of each activity. Mr. Medrano participated in the following activities: Functional Therapy: 1. AM Session of functional conditioning ( X ) Completed ( ) Not Completed 2. PM Session of functional conditioning ( X ) Completed ( ) Not Completed Instructed in 20 minutes of mindfulness meditation activity focusing on introduction to yoga. Participated in a 40 minute, 1.2 mile outdoor walk including a hill climb and up/down one flight of stairs, and 20 minutes of unguarded activity focused on stooping. Individualized Treatment: Increased resistance levels of functional conditioning exercises according to personal recovery goals. Initiated a functional conditioning activity designed to practice safeform and techniques to translate to real life situations at home and work, to address his functional goal of being able to operate his chainsaw. Reminded him to complement conditioning exercises withstretching. Encouraged use of pacing strategies. Provided instruction on a pacing strategy to help determine appropriate activity stop/rest points based on time, rather than symptoms. Encouraged him to identify one important activity that he would like to increase tolerance. Mr. Medrano was oriented to the resources provided in the program binder that describe the various cardio, stretching, and strengthening exercises completed during FRP that can be incorporated into their home-based self-care program. Please see goals in initial OT evaluation [...] provided by both an Occupational Therapist and Automobile Body Repair Chief, TYRON Gibson. 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
--- OUTSIDE RECORDS SUMMARY | 2024-08-14 01:21 | XMS_ITS | Encounter Summary ---
Author Organization [facility] [place] [address] Care Team Providers Care Commercial Fisherman Name Role Phone Sravani Salas APRN Primary Care Provider [phone] [phone] Reason for Visit * Reason Comments Right Arm Pain Encounter Details Date Type Department Care Team (Late st Contact Info) Description 12/26/2020 8:00 AM EDT Office Visit Functional Mu-Ism Program at [place] [address] [place] [address] Briana Crane, OT Pain of right upper extremity Social History Tobacco [...] - Therapy - Briana Crane OT - 12/26/2020 8:00 AM EDT [facility] Occupational Therapy Note [facility] Day 5 Protocol Subjective: Mr. Medrano returns today for a scheduled follow up appointment with [facility]. He reports that he feels like the mindfulness practice comes easy to him. Objective: Refer to [facility] protocol for details and explanation of each activity. Mr. Medrano participated in the following activities: Functional Therapy: 1. AM Session of functional conditioning ( X ) Completed ( ) Not Completed 2. PM Session of functional conditioning ( X ) Completed ( ) Not Completed Instructed in 15 minutes of mindfulness meditation activity focusing on body scan. Participated in a 15 minute treadmill walk including incline levels from 0-10% and speed from 2.0-2.9 mph, and 15 minutes of unguarded beach ball volleyball activity. Individualized Treatment: Increased resistance levels of functional conditioning exercises according to personal recovery goals. He demonstrated increased back muscle strength by using straight-leg lifting technique for functional conditioning exercises. He also demonstrated improvement in squat lifting form in terms of safety and efficiency. He was able to tolerate a 1 pound increase in the waist to shoulder lift without experiencing an increase in right arm symptoms. Weekend Home Program: Reviewed Mr. Medrano's participation [...] provided by both an Occupational Therapist and Airbrush Artist Technical, TYRON Gibson. documented in this encounter Plan of Treatment Upcoming Encounters Date Type Department Care Team (Late st Contact Info) Description 08/18/2024 10:30 AM EST Office [place] [address] Rodrigo Conteh MD [facility] [place] [address] documented as of this encounter Visit Diagnoses Diagnosis Pain of right upper extremity Type 2 diabetes mellitus with hyperglycemia, with long-term current use of insulin Vitamin D insufficiency Unspecified vitamin D deficiency Dyslipidemia Other and unspecified hyperlipidemia documented in this encounter Care Teams Commercial Fisherman Relationship Specialty Start Date End Date Sravani Salas, REFINING MACHINE OPERATOR [address] [place] [address] PCP - General Family Medicine 01/15/17 documented as of this encounter
--- OUTSIDE RECORDS SUMMARY | 2024-08-14 01:21 | XMS_ITS | Encounter Summary ---
Author Organization [facility] [place] [address] Care Team Providers Care Real Estate Loan Officer Name Role Phone Sravani Salas APRN Primary Care Provider [phone] Reason for Visit * Reason Comments Low Back Pain Encounter Details Date Type Department Care Team (Late st Contact Info) Description 12/30/2020 8:00 AM EDT Office Visit Functional Yazdanism Program at [facility] [address] [place] [address] Briana Crane, OT Pain of right upper [...] - Therapy - Briana Crane OT - 12/30/2020 8:00 AM EDT [facility] Occupational Therapy Note [facility] Day 9 Protocol Subjective: Mr. Medrano returns today for a scheduled follow up appointment with [facility]. He reports that he is still feeling fatigued today from his vaccine but is here to do what he can. Objective: Refer to [facility] protocol for details and explanation of each activity. Mr. Medrano participated in the following activities: Functional Therapy: 1. AM Session of functional conditioning ( X ) Completed ( ) Not Completed 2. PM Session of functional conditioning ( X ) Completed ( ) Not Completed Instructed in 20 minutes of mindfulness meditation activity focusing on What to Do About Pain. Participated in a 10 minute treadmill walk including 2 minute grade increases from 2-10%, and 10 minutesof unguarded beach ball volleyball activity. Individualized Treatment: Increased resistance levels of functional conditioning exercises according to personal recovery goals. Participated in an introduction to self-care planning/home exercise program for him to keep up with after discharge. Assigned homework for him to begin thinking about when and where he will plan to integrate the four components of the self-care program (stretching, cardio, strengthening and mindfulness) into his daily schedule post discharge. Assigned weekend homework to include once daily functional lifting of forward bend x 20 repetitionsand squat x 5 repetitions. Will compliment with once daily walking session, twice daily stretching sessions, and 20-30 minutes of mindfulness meditation. Please see goals in initial OT evaluation [...] provided by both an Occupational Therapist and Subway Car Repairer, TYRON Gibson. documented in this encounter Plan of Treatment Upcoming Encounters Date Type Department Care Team (Late st Contact Info) Description 08/18/2024 10:30 AM EST Office [place] [address] Rodrigo Coneth MD [facility] [place] [address] documented as of this encounter Visit Diagnoses Diagnosis Pain of right upper extremity Type 2 diabetes mellitus with hyperglycemia, with long-term current use of insulin Vitamin D insufficiency Unspecified vitamin D deficiency Dyslipidemia Other and unspecified hyperlipidemia documented in this encounter Care Teams Real Estate Loan Officer Relationship Specialty Start Date End Date Sravani Salas, CADY [address] [place] [address] PCP - General Family Medicine 01/15/17 documented as of this encounter
--- OUTSIDE RECORDS SUMMARY | 2024-08-14 01:21 | XMS_ITS | Encounter Summary ---
Author Organization [facility] [place] [address] Care Team Providers Care Environmental Department Manager Name Role Phone Sravani Salas APRN Primary Care Provider [phone] Reason for Visit * Reason Comments Right Arm Pain Encounter Details Date Type Department Care Team (Late st Contact Info) Description 01/04/2021 8:00 AM EDT Office Visit Functional Judaism Program at [facility] [address] [place] [address] Briana Crane, OT Ulnar neuropathy of right [...] - Therapy - Briana Crane OT - 01/04/2021 8:00 AM EDT [facility] Occupational Therapy Note [facility] Day 12 Protocol Subjective: Mr. Medrano returns today for a scheduled follow up appointment with [facility]. He reports that he is having his prescription for the compound cream faxed to the pharmacy today, so he is hoping to have it by next week. Objective: Refer to [facility] protocol for details and explanation of each activity. Mr. Medrano participated in the following activities: Functional Therapy: 1. AM Session of functional conditioning ( X ) Completed ( ) Not Completed 2. PM Session of functional conditioning ( X ) Completed ( ) Not Completed Instructed in 20 minutes of mindfulness meditation activity focusing on Thoughts and Emotions. Participated in a 15 minute treadmill walk including 7% incline and speed of 2.4 mph. Individualized Treatment: Increased resistance levels of functional conditioning exercises according to personal recovery goals. 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 Used lifting graphs as a visual aide to discuss daily progression of conditioning exercises toward overall strength training goals. Will continue to use graphs to map daily progress toward these goals. Discussed today's resistance levels in the context of his overall functional goals and mapped out aplan for the remainder of this week/training session. Mr. Medrano was educated in the process used to develop their self-care program. He was instructed to identify which exercises he finds most beneficial and practical, to prepare for an individual meeting with the PT prior to discharge, to finalize their individual self care plan. Mr. Medrano was advised to follow the program routine developed jointly with the FRP team for 3-6 months post discharge, to ensure understanding of the basic principles discussed, with ample time to get used to an established routine. Please see goals in initial OT evaluation [...] provided by both an Occupational Therapist and Administrative Officer, TYRON Gibson. documented in this encounter Plan of Treatment Upcoming Encounters Date Type Department Care Team (Late st Contact Info) Description 08/18/2024 10:30 AM EST Office Visit [place] [address] Rodrigo Conteh MD [facility] [place] [address] documented as of this encounter Visit Diagnoses Diagnosis Ulnar neuropathy of right upper extremity Lesion of ulnar nerve Type 2 diabetes mellitus with hyperglycemia, with long-term current use of insulin Vitamin D insufficiency Unspecified vitamin D deficiency Dyslipidemia Other and unspecified hyperlipidemia documented in this encounter Care Teams Environmental Department Manager Relationship Specialty Start Date End Date Sravani Salas APRN [address] [place] [address] PCP - General Family Medicine 01/15/17 documented as of this encounter
--- OUTSIDE RECORDS SUMMARY | 2024-08-14 01:21 | XMS_ITS | Encounter Summary ---
Author Organization [facility] [place] [address] Care Team Providers Care Java Project Manager Name Role Phone Sravani Salas APRN Primary Care Provider [phone] Encounter Details Date Type Department Care Team (Late st Contact Info) Description 01/03/2021 8:00 AM EDT Office Visit Functional Church Program at [facility] [address] [place] [address] Josefina Jung, TC Chronic pain syndrome; Pain of right upper extremity Social History [...] Miscellaneous Notes * Treatment - Therapy - Josefina Jung PTA - 01/03/2021 8:00 AM EDT [facility] Physical Therapy Note [facility] Day 11 Protocol Subjective: Isiah returns today for a scheduled follow up appointment with [facility]; he reports that he looked into gym memberships this weekend and is considering getting one, but would like to have a plan for exercising at home too. Objective: Treatment Received: Refer to [facility] protocol for explanation of program/physical therapy details. 1. Therapeutic and Functional Exercise: See [facility] flow sheets for progression. Strengthening and conditioning designed according to personal functional recovery goals and [facility] protocol was: (x) Completed ( ) Not [...] progressing as planned with quota based training. Introduced strengthening flowsheet and concepts used for progression of exercises: if weight is too much and causes deviations inform, stop and rest before completing set, maintain that weight until 2 sets of 10 repetitions can be completed with good form. Plan: Return for follow up with FRP [...] 10:30 AM EST Office [place] [address] Rodrigo Conteh MD [facility] [place] [address] documented as of this encounter Visit Diagnoses Diagnosis Chronic pain syndrome Pain of right upper extremity Type 2 diabetes mellitus with hyperglycemia, with long-term current use of insulin Vitamin D insufficiency Unspecified vitamin D deficiency Dyslipidemia Other and unspecified hyperlipidemia documented in this encounter Care Teams Java Project Manager Relationship Specialty Start Date End Date Sravani Salas APRN [address] [place] [address] PCP - General Family Medicine 01/15/17 documented as of this encounter
--- OUTSIDE RECORDS SUMMARY | 2024-08-14 01:21 | XMS_ITS | Encounter Summary ---
Author Organization [facility] [place] [address] Care Team Providers Care Pharmaceutical Physician Name Role Phone Sravani Salas APRN Primary Care Provider [phone] Encounter Details Date Type Department Care Team (Latest Contact Info) Description 11/10/2021 3:00 PM EST TH Visit (TeleHealth) [place] [id number] Rodrigo Conteh MD [facility] [place] [address] Type 2 diabetes, controlled, with neuropathy; Dyslipidemia; [...] Sign Reading Time Taken Comments Blood Pressure 110/60 11/10/2021 3:01 PM EST Pulse - - Temperature - - Respiratory Rate 12 11/10/2021 3:01 PM EST Oxygen Saturation - - Inhaled Oxygen Concentration - - Weight 95.3 kg (210 lb) 11/10/2021 3:01 PM EST Height 166.4 cm (5' 5.5) 11/10/2021 3:01 PM EST Body Mass Index 34.41 11/10/2021 3:01 PM EST documented in this encounter Patient Instructions * Patient Instructions* Rodrigo Conteh MD - 11/10/2021 3:12 PM EST Plan: 1. Medication: Adjustment of diabetes treatment regimen: To increase Levemir vial 35 units qAM and add 10 units qPM to keep fasting done 90-150 range. He prefers insulin vial to help reduce the cost. will allow him to adjust the dose by 2 units to keep fasting BG at the target of 90-150 range To cont Humulin-R vial 10-40u bid/tid(typicaly 20-25u bid) with meals, and to hold if not eating orlow BG Ok to give extra Humulin-R sliding scale p.r.n if BG>180 based on 1u:20BG ratio To cont glimiperide 4 mg bid and resume taking metforminER 500 mg bid (low dose due to mild kidney impairment since last March with eGFR 45, ok to use metformin half-dose, and stop it only if eGFR <30). To continue all other medications, OTC-B12 1,000 mcg po qd for neuropathy and also OTC-vitD 2,000 iu daily. 2. Monitoring: to check FSBG before each meal and at bedtime => to try Libre2 again as he is nowusing insulin at least 3x/day Target BG 90-150 while fasting and 90-180 pre-meal during daytime Target A1c in 7% range for this patient (7-8% as his target). I am recommending this patient get a Libre2 CGM for personal use. Pt has [...] 4. Lab: To check lab locally at [facility] lab soon as ordered.=> higher A1c 9.6% (05/22/21)=> then down 8s%lately last month 5. RTC: Next visit in 6 months. Will check HbA1c, BMP at local lab at the time. documented in this encounter Progress Notes * Rodrigo Conteh MD - 11/10/2021 3:00 PM EST Endocrine Clinic Name: [facility] Medrano : 1965 Date: 11/10/2021 PCP: Sravani Salas APRN Reason for visit: diabetes type 2 switched from U-500 insulin to Levemir and humalin-R since 2018 with better A1c 7.3-8s% last year (was high A1c 11.5%). Patient verbally consents to this telehealth visit and understands that this visit may be billed, similar to a clinic office visit. I provided care to the patient today via VDO plus telephone to help with the audio portion. The total time associated with this visit was 30 minutes. Diabetes treatment regimen: Glimiperide 4 mg bid and had to hold Metformin 1000 mg bid since March due to Cr 1.6 with eGFR 45 causing higher BG (ok to resume 500 mg bid as eGFR is >30) Levemir 35 units qAM => will increase to 35u qAM and 10-15u qPM HumalinR 10-40u BID/TID typically 20-25u depending on meal size and BG levels (*he used to take U500 pen 175 units in PM i.e. 35u on the syringe, and missed the AM dose often) FSBG: checking FSBG 4x/day, ranging between 60s-250s mg/dl Most recent HA1c: pending soon (was 7.3% on 09/21/19, 11.5% on 12/26/18, 7.7% on 06/16/18, 10.2% on 08/11/17, 11.5% on 07/01/17, 9..2% in , 11.5% on 09/15/15, 12.4% 06/10/15 , 14.6% on 06/19/13 and9.5% on 02/24/13) Ref. Range 02/24/2013 13:09 06/19/2013 13:57 06/10/2015 12:30 09/15/2015 12:06 04/03/2016 10:15 Hemoglobin A1C Range: 4.3 - 5.6 % 9.5 (H) 14.6 (H) 12.4 (H) 11.5 (H) 9.2 (H) => 11.5%=> 10.2%(08/11/17) => 7.7% (06/16/18) => 11.5% (12/26/18) => 7.3% (09/23/19) => 9.6% (05/22/21) => 8s% last months (Oct 2021) Hypoglycemia during the interval time: [...] back down from 11.5 to 7.3% at target. We then switched Levemir pen to vial to help reduce the cost and also changed Humalog pen to vial of Humulin-R for the injections. He had to quit using victoza in [...] help monitor BG closely but it's too costly. He used to have severe hypoglycemia requiring 911 call in 2017 so his ex- (RN) does not want him to have low BG again and rather kept BG at the high end resulting in very high A1c in Dec 2018. He got 2 yrs ago and now lives with his parents (age 84). His depression has been more stable on current Rx. He knows that good DM control is critical for prevention of DM complication and slow down further progression of neuropathy and ED. Denies any changes in vision and has been using the same pair of eyeglasses and recent eye exam was ok. No CP, SOB, GI issues, leg swelling or foot ulcer. ROS: Please see HPI, all others negative Patient Active Problem List Diagnosis Code ??? Adjustment disorder with depressed mood F43.21 ??? Hypertension I10 ??? Gout M10.9 ??? HLD (hyperlipidemia) E78.5 ??? 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 Pain of right upper extremity M79.601 ??? Severe episode of recurrent major depressive disorder, without psychotic features F33.2 ??? Diabetes mellitus type 2, insulin dependent E11.9, Z79.4 ??? Obesity (BMI 30.0-34.9) E66.9 ??? Iron deficiency anemia D50.9 ??? Hypomagnesemia E83.42 ??? CAD (coronary artery disease) I25.10 ??? Chronic pain G89.29 Current Outpatient Medications on File Prior to Visit Medication Sig Dispense Refill ??? metFORMIN XR (Glucophage XR) 500 mg Tablet Sustained Release 24 hr Take 1 tablet by mouth 2 times daily. 180 tablet 3 ??? humuLIN R Solution *2 - 3 times daily* ??? insulin detemir U-100 (Levemir U-100 Insulin) Solution Inject 30 Units subcutaneously every morning. 10 mL 4 ??? glimepiride (AMARYL) 4 mg Tablet Take 1 tablet by mouth 2 times daily. 180 tablet 3 ??? RX ADULT COMPOUNDED MEDICATION 2-4 grams To affected area 3-4 Times daily PRN pain Dispense 240grams 1 each 3 ??? metoprolol succinate XL (Toprol-XL) 25 mg Tablet Sustained Release 24 hr daily. ??? Magtab 84 mg Tablet Sustained Release Indications: 3 times a week ??? imipramine (Tofranil) 50 mg Tablet nightly. ??? ARIPiprazole (ABILIFY) 10 mg Tablet 10 mg daily. ??? DULoxetine DR (CYMBALTA) 60 mg Capsule, Delayed Release(E.C.) daily. ??? ferrous sulfate 325 mg (65 mg iron) Tablet daily. ??? nitroGLYcerin (NITROSTAT) 0.4 mg Tablet, Sublingual as needed for Chest pain. ??? sertraline (ZOLOFT) 100 mg Tablet daily. ??? traZODone (DESYREL) 100 mg Tablet nightly. ??? insulin needles, disposable, (BD ULTRA-FINE MINI PEN NEEDLE) 31 gauge x 3/16 Needle by Other route. 1 box = 100 insulin PEN needles. 1 each 3 ??? Ibuprofen 200 mg Capsule Take 400 mg by mouth 3 times daily as needed (pain). ??? CHOLECALCIFEROL, VITAMIN D3, (VITAMIN D3 ORAL) Take 1 tablet by mouth nightly. ??? isosorbide mononitrate (IMDUR) 30 mg Tablet Sustained Release 24 hr Take 60 mg by mouth daily. ??? Insulin Syringe-Needle U-100 0.5 mL 31 gauge x 5/16 Syringe 1 each by Misc.(Non-Drug; Combo Route) route 2 times daily. 100 Syringe 11 ??? NALTREXONE HCL (NALTREXONE ORAL) Take 1 mg by mouth 4 times daily as needed (pain). Indications: pt takes 4.5 mg daily ??? pen needle, diabetic (NOVOFINE PLUS) 32 gauge x 1/6 Needle 1 each by Misc.(Non-Drug; Combo Route) route 4 times daily as needed. 100 each 11 ??? allopurinol (ZYLOPRIM) 300 mg Tablet Take 300 mg by mouth nightly. ??? aspirin 325 mg Tablet Take 325 mg by mouth daily. Ordered for Heart attack reasons ??? gabapentin (NEURONTIN) 300 mg Capsule Take 900 mg by mouth 4 times daily. 3 ??? lisinopril (PRINIVIL;ZESTRIL) 20 mg Tablet Take 40 mg by mouth nightly. ??? magnesium oxide (MAG-OX) 400 mg Tablet Take 400 mg by mouth nightly. 3 ??? multivitamin (THERAGRAN) Tablet Take 1 tablet by mouth daily. ??? atorvastatin (LIPITOR) 40 mg Tablet Take 40 mg by mouth nightly. ??? Blood Sugar Diagnostic (ONE TOUCH ULTRA TEST) test strip 1 each by Other route 4 times daily. Use as instructed 400 each 3 ??? Insulin Syringe-Needle U-100 (BD INSULIN SYRINGE ULT-FINE II) 1 mL 31 x 5/16 Syrg 1 each by Misc.(Non-Drug; Combo Route) route 2 times daily (before meals). 100 each 11 No current facility-administered medications on file prior to visit. Allergies Allergen Reactions ??? Eptifibatide Other (See Comments) thrombocytopenia ??? Amoxicillin Other (See Comments) Unknown Social History Socioeconomic History ??? Marital status: Spouse name: Not on file ??? Number of children: Not on file ??? Years of education: Not on file ??? Highest education level: Not on file Occupational History ??? Not on file Tobacco Use ??? Smoking status: Never Smoker ??? Smokeless tobacco: Former User Types: Chew Quit date: 01/09/1995 Vaping Use ??? Vaping Use: Never used Substance and Sexual Activity ??? Alcohol use: No ??? Drug use: No ??? Sexual activity: Not Currently Other Topics Concern ??? Not on file Social History Narrative ??? Not on file Social Determinants of Health Financial Resource Strain: Not on file Food Insecurity: Not on file Transportation Needs: Not on file Physical Activity: Not on file Housing Stability: Not on file FAMILY HISTORY Family History Problem Relation Age of Onset ??? Diabetes Brother Physical exam BP 110/60 Resp 12 Ht 166.4 cm (5' 5.5) Wt 95.3 kg (210 lb) BMI 34.41 kg/m?? Appearance: mildly obese, very pleasant, NAD [...] transposition surgery Neuro: no weakness Results for REID MEDRANO ( ) as of 12/26/2018 Ref. Range [...] Alb/Cr Ratio, Random <30 mcg/mg Cr 4 outside lab 05/22/21 Below are the results from your recent Lab on 05/22/21 - A1c = 9.6% (was [...] kidney which is good news for you) Assessment: 56 y.o. man with better control of type 2 Diabetes with insulin resistance and already switched U500 insulin to Levemir and Humalog with A1c down from 11.5% to 7.3% during the interim. His depressionis stable. He used to lose weight down from 225 to 185 lbs and then gained back to 205 lbs over thepast year with a lot less insulin need (40-70 units/day instead of 175-300 units/day). He had high c- peptide 7.3 from his own insulin production and responded to oral agents which help to reduce insulin need (victoza was too costly $150/mo even with insurance coverage). He could not afford the Tasha CGM to closely monitor BG and feels ok to cont checking finger stick blood glucose often daily further. As his kidney function is slightly impaired, he can resume using metformin as he noted high BG after he quit it since March (Cr 1.6 with eGFR 45). Ok to resume using metforminER 500 mg bid half dose while eGFR is >30 without stopping it. Complication Risk Status: + complications present with painful peripheral neuropathy and ED, mild CKD stage 3, and some degree of hypoglycemic unawareness. Also, treated for CAD s/p stent RCA in 01/07 at young age of 42, HTN, Chol, gout and asymptomatic ontreatment. Plan: 1. Medication: Adjustment of diabetes treatment regimen: To increase Levemir vial 35 units qAM and add 10 units qPM to keep fasting done 90-150 range. He prefers insulin vial to help reduce the cost. will allow him to adjust the dose by 2 units to keep fasting BG at the target of 90-150 range To cont Humulin-R vial 10-40u bid/tid(typicaly 20-25u bid) with meals, and to hold if not eating orlow BG Ok to give extra Humulin-R sliding scale p.r.n if BG>180 based on 1u:20BG ratio To cont glimiperide 4 mg bid and resume taking metforminER 500 mg bid (low dose due to mild kidney impairment since last March with eGFR 45, ok to use metformin half-dose, and stop it only if eGFR <30). To continue all other medications, OTC-B12 1,000 mcg po qd for neuropathy and also OTC-vitD 2,000 iu daily. 2. Monitoring: to check FSBG before each meal and at bedtime => to try Libre2 again as he is nowusing insulin at least 3x/day Target BG 90-150 while fasting and 90-180 pre-meal during daytime Target A1c in 7% range for this patient (7-8% as his target). I am recommending this patient get a Libre2 CGM for personal use. Pt has [...] 4. Lab: To check lab locally at [facility] lab soon as ordered.=> higher A1c 9.6% (05/22/21)=> then down 8s%lately last month 5. RTC: Next visit in 6 months. Will check HbA1c, BMP at local lab [...] 10:30 AM EST Office [place] [address] Rodrigo Conteh MD [facility] [address] documented as of this encounter Visit Diagnoses [...] hyperlipidemia documented in this encounter Care Teams Pharmaceutical Physician Relationship Specialty Start Date End Date Sravani Salas APRN [address] [place] [address] PCP - General Family Medicine 01/15/17 documented as of this encounter
--- OUTSIDE RECORDS SUMMARY | 2024-08-14 01:21 | XMS_ITS | Encounter Summary ---
Author Organization [facility] [place] [address] Care Team Providers Care Dyeing Machine Feeder Name Role Phone Sravani Salas APRN Primary Care Provider [phone] [phone] Encounter Details Date Type Department Care Team (Late st Contact Info) Description 01/04/2021 11:00 AM EDT Office Visit Functional Confucianist Program at [facility] [address] [place] [address] Asia Hernandez [facility] [place] [address] Chronic pain syndrome Social History Tobacco Use Types Packs/Day Years [...] as of this encounter Progress Notes * Asia Hernandez PsyD - 01/04/2021 11:00 AM EDT [facility] Active Pain Care, a Service of the [facility] Functional Confucianist Program/Living Well With Pain Education Series Name: Isiah Ramirezose Date: 01/04/21 Topic: Mind-Body Interventions for Chronic Pain 60 minute Health & Behavior Intervention group focused on Pain Neuroscience and Pain Psychologyeducation. Today's topic focused on the rationale, process, and benefits of mind-body interventionsfor chronic pain, including Relaxation Exercises, Yoga, Eric Chi, and Mindfulness Meditation. Discussed the ways that specific exercises can activate parasympathetic nervous system, including breathing retraining, progressive muscle relaxation, and guided imagery. Specifically reviewed the procedures for practicing each of these, reviewing rationale for daily practice. Introduced pain appropriate movement practices of eric chi and yoga, and made recommendations for ways to engage in these options. Participants watched a short video (Teddy'reynold Amazing Transformation) about a withchronic knee pain who benefited greatly from beginning a yoga practice. Introduced the role of mindfulness meditation in managing chronic pain. Reviewed common misconceptions related to meditation and common experiences in beginning a mindfulness meditation practice. Reviewed some outcome studies that have indicated a positive benefit of consistent mindfulness meditation for chronic pain, reducing both intensity and unpleasantness. Also reviewed resources for maintaining a workable, every day meditation practice, and what sort of outcomes Participants should expectas they develop their mindfulness practice. Provided a resource for free guided mindfulness meditation practice. Isiah was well engaged with this group, asked pertinent questions, and expressed understanding and appreciation of the topic and how it relates to his pain and rehabilitation. documented in this encounter Plan of Treatment Upcoming Encounters Date Type Department Care Team (Late st Contact Info) Description 08/18/2024 10:30 AM EST Office [place] [address] Rodrigo Conteh MD [facility] [place] [address] documented as of this encounter Visit Diagnoses Diagnosis Chronic pain syndrome Type 2 diabetes mellitus with hyperglycemia, with long-term current use of insulin Vitamin D insufficiency Unspecified vitamin D deficiency Dyslipidemia Other and unspecified hyperlipidemia documented in this encounter Care Teams Dyeing Machine Feeder Relationship Specialty Start Date End Date Sravani Salas APRN [address] [place] [address] PCP - General Family Medicine 01/15/17 documented as of this encounter
--- OUTSIDE RECORDS SUMMARY | 2024-08-14 01:21 | XMS_ITS | Encounter Summary ---
[facility] [place] [address] Care Team Providers Care Tire Mechanic Name Role Phone Sravani Salas APRN Primary Care Provider [phone] [phone] Reason for Visit * Reason Onset Date Comments Medication Refill 11/13/2021 Encounter Details Date Type Department Care Team (Late st Contact Info) Description 11/13/2021 [place] [address] Wayne Cleveland, RN Social History Tobacco Use [...] 10:30 AM EST Office [place] [address] Rodrigo Conteh MD [facility] [place] [address] documented as of this encounter Visit Diagnoses Not on filedocumented in this encounter Care Teams Tire Mechanic Relationship Specialty Start Date End Date Sravani Salas APRN [address] [place] [address] PCP - General Family Medicine 01/15/17 documented as of this encounter
--- OUTSIDE RECORDS SUMMARY | 2024-08-14 01:21 | XMS_ITS | Encounter Summary ---
Author Organization [place] [address] Care Team Providers Care Web Portal Developer Name Role Phone Sravani Salas APRN Primary Care Provider [phone] [phone] Reason for Visit * Reason Comments Right Arm Pain Encounter Details Date Type Department Care Team (Late st Contact Info) Description 01/06/2021 8:00 AM EDT Office Visit Functional Yazidi Program at [facility] [address] [place] [address] Briana Crane, OT Ulnar neuropathy of right [...] - Therapy - Briana Crane OT - 01/06/2021 8:00 AM EDT [facility] Occupational Therapy Note [facility] Day 14 Protocol Subjective: Mr. Medrano returns today for a scheduled follow up appointment with [facility]. He reports that he feels pretty good today, no new complaints. Objective: Refer to [facility] protocol for details and explanation of each activity. Mr. Medrano participated in the following activities: Functional Therapy: 1. AM Session of functional conditioning ( X ) Completed ( ) Not Completed 2. PM Session of functional conditioning ( X ) Completed ( ) Not Completed Instructed in 10 minutes of mindfulness meditation activity focusing on introduction to Duran Chi. Participated in a 40 minute outdoor walk including hill climb, 1.1 miles and up/down one flight of stairs, and 20 minutes of unguarded card activity involving stooping. Individualized Treatment: Increased resistance levels of functional conditioning exercises according to personal recovery goals. He demonstrated increased right upper extremity strength for functional conditioning exercises. He also demonstrated improvement in lifting form in terms of safety and efficiency. Met to discuss overall self care principles including: posture, pacing, body mechanics, exercise and some basics of managing flare-ups. Encouraged him to think about how he will apply the individualized strategies that he has been practicing while at [facility], and how he will incorporate them into his individual self-care plan. Please see goals in initial OT evaluation report from Day 1. Daily functional conditioning progressis documented on a flow sheet which is available on request. Assessment: Mr. Medrano continues to work according to protocol in order to reach his functional goals. He had a good understanding of today's conditioning principles and participated actively in progression of function. Plan: Return for follow up with [facility] per protocol. Continue training according to planned progressions towards functional recovery goals. Length of Treatment: Mr. Medrano participated in program activities from 8:00 a.m. through 2:30 p.m.today. A total of 45 minutes was spent during that time to establish and implement individualized occupational therapy strategies. Care was provided by both an Occupational Therapist and Timber Feller, TYRON Gibson. documented in this encounter Plan of Treatment Upcoming Encounters Date Type Department Care Team (Late st Contact Info) Description 08/18/2024 10:30 AM EST Office [place] [address] Rodrigo Conteh MD [facility] [place] [address] documented as of this encounter Visit Diagnoses Diagnosis Ulnar neuropathy of right upper extremity Lesion of ulnar nerve Type 2 diabetes mellitus with hyperglycemia, with long-term current use of insulin Vitamin D insufficiency Unspecified vitamin D deficiency Dyslipidemia Other and unspecified hyperlipidemia documented in this encounter Care Teams Web Portal Developer Relationship Specialty Start Date End Date Sravani Salas APRN [address] [place] [address] PCP - General Family Medicine 01/15/17 documented as of this encounter
--- OUTSIDE RECORDS SUMMARY | 2024-08-14 01:21 | XMS_ITS | Encounter Summary ---
Author Organization [facility] [place] [address] Care Team Providers Care Crm Consultant Name Role Phone Sravani Salas APRN Primary Care Provider [phone] Reason for Visit * Reason Comments Right Arm Pain Encounter Details Date Type Department Care Team (Late st Contact Info) Description 01/03/2021 8:00 AM EDT Office Visit Functional Taoism Program at [facility] [address] [place] [address] Briana Crane, OT Ulnar neuropathy of right [...] - Therapy - Briana Crane OT - 01/03/2021 8:00 AM EDT [facility] Occupational Therapy Note [facility] Day 11 Protocol Subjective: Mr. Medrano returns today for a scheduled follow up appointment with [facility]. He reports that he still feels a pulling sensation in his right arm after some of the lifting exercises. Objective: Refer to [facility] protocol for details and explanation of each activity. Mr. Medrano participated in the following activities: Functional Therapy: 1. AM Session of functional conditioning ( X ) Completed ( ) Not Completed 2. PM Session of functional conditioning ( X ) Completed ( ) Not Completed Instructed in 20 minutes of mindfulness meditation activity focusing on mindful walking. Participated in a 35 minute outdoor walk including a hill climb, and 10 minutes of unguarded beach ball volleyball activity. Individualized Treatment: Increased resistance levels of functional conditioning exercises according to personal recovery goals. He demonstrated increased back muscle strength by using straight-leg lifting technique for functional conditioning exercises. He also demonstrated improvement in upper level lifting form in terms of safety and efficiency. 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 Please see goals in initial OT evaluation [...] provided by both an Occupational Therapist and Outreach Professional, TYRON Gibson. documented in this encounter Plan of Treatment Upcoming Encounters Date Type Department Care Team (Late st Contact Info) Description 08/18/2024 10:30 AM EST Office [place] [address] Rodrigo Conteh MD [facility] [place] [address] documented as of this encounter Visit Diagnoses Diagnosis Ulnar neuropathy of right upper extremity Lesion of ulnar nerve Type 2 diabetes mellitus with hyperglycemia, with long-term current use of insulin Vitamin D insufficiency Unspecified vitamin D deficiency Dyslipidemia Other and unspecified hyperlipidemia documented in this encounter Care Teams Crm Consultant Relationship Specialty Start Date End Date Sravani Salas APRN [address] [place] [address] PCP - General Family Medicine 01/15/17 documented as of this encounter
--- OUTSIDE RECORDS SUMMARY | 2024-08-14 01:21 | XMS_ITS | Encounter Summary ---
Author Organization [facility] [place] [address] Care Team Providers Care Rn Labor And Delivery Name Role Phone Sravani Salas APRN Primary Care Provider [phone] [phone] Encounter Details Date Type Department Care Team (Late st Contact Info) Description 01/09/2021 11:00 AM EDT Office Visit Functional Taoist Program at [facility] [address] [place] [address] Asia Hernandez PsyD [facility] [place] [address] Chronic pain syndrome Social History Tobacco Use [...] Progress Notes * Asia Hernandez PsyD - 01/09/2021 11:00 AM EDT [facility] Active Pain Care, a Service of [facility] Functional Taoist Program / Living with Pain Education Series Name: Isiah Ramirezose Date: 01/08/21 Topic: Sleep Problems and Chronic Pain 60 minute Health and Behavior Intervention Group focused on helping patients determine ways to improve their sleep, including education about the causes of insomnia, the bidirectional effect between sleep and pain, and reviewing skills related to improving sleep hygiene. Basic sleep drive and structure were reviewed, and recommendations made for improving sleep. The rationale and process of CBT-Iwas reviewed and group encouraged to focus on improving sleep as hayward tool for managing pain and mood. The group was encouraged to ask questions throughout and were provided handouts of the topic covered. Isiah appears to be benefiting from this series of pain education session as evidenced by brighter affect, appearance of improved mood, greater participation, and observed reduction in pain behaviors. Diagnosis: Chronic pain documented in this encounter Plan of Treatment Upcoming Encounters Date Type Department Care Team (Late st Contact Info) Description 08/18/2024 10:30 AM EST Office [place] [address] Rodrigo Conteh MD [facility] [place] [address] documented as of this encounter Visit Diagnoses Diagnosis Chronic pain syndrome Type 2 diabetes mellitus with hyperglycemia, with long-term current use of insulin Vitamin D insufficiency Unspecified vitamin D deficiency Dyslipidemia Other and unspecified hyperlipidemia documented in this encounter Care Teams Rn Labor And Delivery Relationship Specialty Start Date End Date Sravani Salas APRN [address] [place] [address] PCP - General Family Medicine 01/15/17 documented as of this encounter
--- OUTSIDE RECORDS SUMMARY | 2024-08-14 01:21 | XMS_ITS | Encounter Summary ---
Author Organization [facility] [place] [address] Care Team Providers Care Supervisor Seaming Name Role Phone Sravani Salas APRN Primary Care Provider [phone] [phone] Encounter Details Date Type Department Care Team (Late st Contact Info) Description 01/09/2021 8:00 AM EDT Office Visit Functional Worship Program at [facility] [address] [place] [address] Isiah Taylor, PT Ulnar neuropathy of right upper extremity; Pain of right upper extremity Social History [...] - Therapy - Isiah Taylor, PT - 01/09/2021 8:00 AM EDT [facility] Physical Therapy Note [facility] Day 15 Protocol Subjective: Isiah returns today for a scheduled follow up appointment with [facility]; he reports considering a home-based exercise program. Objective: Treatment Received: Refer to [facility] protocol for explanation of program/physical therapy details. 1. Therapeutic and Functional Exercise: See [facility] flow sheets for progression. Strengthening and conditioning designed according to personal functional recovery goals and [facility] protocol was: (x) Completed ( [...] progressing as planned with quota based training. Met with Isiah individually tooutline a weekly schedule for self care exercise at home. Established top priority flexibility, strength, endurance exercises, and relaxation techniques to continue for penitentiary gains. He understands the importance of continuing the program to meet vocational, recreational, and daily living goals. P HOME EXERCISE PROGRAM Specific types Frequency 1 Week Status 1 Month Status Aerobic / Endurance 15-20 minute walk In winter: Snowshoeing On bad weather days: Morning warmup daily Stretching Stretches in [facility], special attention to LIGHT BLUE starred stretches 1-2x per day Strength training Band resistance program in [facility] Crate lifting program 3x per week Relaxation strategies Breathing focus daily Helpful /10 Helpful /10 Flare-up Plan: 1. Stay consistent with self-care program 2. Use pacing 3. Use mindfulness 4. When it gets cranky - don???t panic! 5. Go for a walk to get your mind off it As-needed Plan: Return for follow up with [facility] per protocol. Length of visit: Participated in program physical activity from 8:00 a.m. through 2:30 p.m. today. During that time, a total of 45 minutes was spent to develop, monitor, and progress individualized physical therapy strategies. documented in this encounter Plan of Treatment Upcoming Encounters Date Type Department Care Team (Late st Contact Info) Description 08/18/2024 10:30 AM EST Office [place] [address] Rodrigo Conteh MD [facility] [place] [address] documented as of this encounter Visit Diagnoses Diagnosis Ulnar neuropathy of right upper extremity Lesion of ulnar nerve Pain of right upper extremity Type 2 diabetes mellitus with hyperglycemia, with long-term current use of insulin Vitamin D insufficiency Unspecified vitamin D deficiency Dyslipidemia Other and unspecified hyperlipidemia documented in this encounter Care Teams Supervisor Seaming Relationship Specialty Start Date End Date Sravani Salas APRN [address] [place] [address] PCP - General Family Medicine 01/15/17 documented as of this encounter
--- OUTSIDE RECORDS SUMMARY | 2024-08-14 01:21 | XMS_ITS | Encounter Summary ---
Author Organization [facility] [address] Care Team Providers Care Health Policy Manager Name Role Phone Sravani Salas APRN Primary Care Provider [phone] [phone] Reason for Visit * Reason Comments Right Arm Pain Encounter Details Date Type Department Care Team (Late st Contact Info) Description 01/13/2021 8:00 AM EDT Office Visit Functional Jewish Program at [facility] [address] [place] [address] Briana Crane, OT Ulnar neuropathy of right [...] as of this encounter Miscellaneous Notes * Discharge - Therapy - Briana Crane OT - 01/13/2021 8:00 AM EDT [facility] Occupational Therapy Note [facility] Graduation Note [facility] Day Protocol Subjective: Mr. Medrano returns today for a scheduled follow up appointment with [facility]. He reports that he is intent on keeping up with a structured exercise program at home to continue progressing his physical capacities. Overall, he reports feeling pleased with the functional gains he has made so far. Objective: Refer to [facility] protocol for details and explanation of each activity. Mr. Medrano participated in the following activities: Functional Therapy 1. Cardio and stretch ( X ) Completed ( ) Not Completed 2. Outlined a specific home lifting program with Mr. Medrano for him to continue progressing his functional capacities after discharge. Reviewed and finalized home lifting program. Home program was: ( X ) Unchanged: Provided a printed list of the weights of common household objects for him to put in his crate for crate lifting ( ) Modified to include: 3. Reviewed work readiness: ( X ) Completed ( ) Not Completed Met to review progress and outline work capacity accordingly. Assessment: Mr. Medrano has progressed according to protocol, has met his initial lifting goals, andhas made progress toward his 3-month functional goals. Plan: 1. Discharge with home conditioning program 2. Return for [facility] follow up in 1 week, 1 month, and as needed 3. Mr. Medrano will contact [facility] staff if he experiences problems with his home program or needs additional support for return to work or flare-up management issues. Length of Treatment: Mr. Medrano participated in program activities from 8:00 a.m. to 10:30 a.m. today. A total of 15 minutes was spent finalizing individualized self-care strategies and functional activity guidelines and discussing work readiness. documented in this encounter Plan of Treatment Upcoming Encounters Date Type Department Care Team (Late st Contact Info) Description 08/18/2024 10:30 AM EST Office [place] [address] Rodrigo Conteh MD [facility] [place] [address] documented as of this encounter Visit Diagnoses Diagnosis Ulnar neuropathy of right upper extremity Lesion of ulnar nerve Type 2 diabetes mellitus with hyperglycemia, with long-term current use of insulin Vitamin D insufficiency Unspecified vitamin D deficiency Dyslipidemia Other and unspecified hyperlipidemia documented in this encounter Care Teams Health Policy Manager Relationship Specialty Start Date End Date Sravani Salas APRN [address] [place] [address] PCP - General Family Medicine 01/15/17 documented as of this encounter
--- OUTSIDE RECORDS SUMMARY | 2024-08-14 01:21 | XMS_ITS | Encounter Summary ---
Author Organization [facility] [place] [address] Care Team Providers Care Quality Engineer Medical Device Name Role Phone Sravani Salas APRN Primary Care Provider [phone] [phone] Encounter Details Date Type Department Care Team (Late st Contact Info) Description 12/28/2020 8:00 AM EDT Office Visit Functional Mandaen Program at [facility] [address] [place] [address] Isiah Taylor, PT Pain of right upper [...] - Therapy - Isiah Taylor, PT - 12/28/2020 8:00 AM EDT [facility] Physical Therapy Note [facility] Day 7 Protocol Subjective: Isiah returns today for a scheduled follow up appointment with P; he reports feeling alittle more flared up today. Objective: Treatment Received: Refer to [facility] protocol for explanation of program/physical therapy details. 1. Therapeutic and Functional Exercise: See [facility] flow sheets for progression. Strengthening and conditioning designed according to personal functional recovery goals and [facility] protocol was: (x) Completed ( ) Not completed 2. Home Exercise Program: Reviewed and modified current home exercise program. The Home Exercise Program was: (x) Unchanged ( ) Modified 3. Neurological Assessment: (x) No change in status ( ) Change in status 4. Stretching and Relaxation Training Sessions: (x) Completed ( ) Not completed Assessment: sIiah is progressing as planned with quota based [...] 10:30 AM EST Office Visit [place] [address] Rodrigo Conteh MD [facility] [place] [address] documented as of this encounter Visit Diagnoses Diagnosis Pain of right upper extremity Ulnar neuropathy of right upper extremity Lesion of ulnar nerve Type 2 diabetes mellitus with hyperglycemia, with long-term current use of insulin Vitamin D insufficiency Unspecified vitamin D deficiency Dyslipidemia Other and unspecified hyperlipidemia documented in this encounter Care Teams Quality Engineer Medical Device Relationship Specialty Start Date End Date Sravani Salas APRN [address] [place] [address] PCP - General Family Medicine 01/15/17 documented as of this encounter
--- OUTSIDE RECORDS SUMMARY | 2024-08-14 01:21 | XMS_ITS | Encounter Summary ---
Author Organization [facility] [place] [address] Care Team Providers Care Him Director Name Role Phone Sravani Salas APRN Primary Care Provider [phone] Reason for Visit * Reason Comments Right Arm Pain Encounter Details Date Type Department Care Team (Late st Contact Info) Description 01/11/2021 8:00 AM EDT Office Visit Functional Buddhism Program at [facility] [address] [place] [address] Briana Crane, OT Ulnar neuropathy of right [...] - Therapy - Briana Crane OT - 01/11/2021 8:00 AM EDT [facility] Occupational Therapy Note [facility] Day 17 Protocol Subjective: Mr. Medrano returns today for a scheduled follow up appointment with [facility]. He reports that he is interested in having a meeting with his Voc Rehab Counselor and this therapist to discuss return to work plans prior to discharge. Objective: Refer to [facility] protocol for details and explanation of each activity. Mr. Medrano participated in the following activities: Functional Therapy: 1. AM Session of functional conditioning ( X ) Completed ( ) Not Completed 2. PM Session of functional conditioning ( X ) Completed ( ) Not Completed Participated in a 25 minute outdoor walk including 1.1 miles and hill climb and up/down two flightsof stairs, and 20 minutes of unguarded game activity involving stooping and fast directional changes. Individualized Treatment: Increased resistance levels of functional conditioning exercises according to personal recovery goals. Met to discuss transfer needs with his elderly parents. Instructed in technique to assist with a transfer from the floor, and handout provided. Vocational planning: met to discuss return to work plans. Mr. Medrano states that he is thinking about changing what he does for work, and is more open to doing vocational exploration with his VR counselor than he was in the past. He would like to do something less physically demanding with a more regular work schedule. Will attempt to schedule a meeting including his VR counselor prior to discharge, to further discuss work capacity and collaborate on return to work release and accommodations that consider his tolerances during program, training and final testing numbers, as well as individualized discussions and problem solving. Work capacity numbers and information will be provided to the VR counselor to assist with ongoing return to work planning. Please see goals in initial OT evaluation [...] provided by both an Occupational Therapist and Manager Field Investigations, TYRON Gibson. documented in this encounter Plan of Treatment Upcoming Encounters Date Type Department Care Team (Late st Contact Info) Description 08/18/2024 10:30 AM EST Office [place] [address] Rodrigo Conteh MD [facility] [place] [address] documented as of this encounter Visit Diagnoses Diagnosis Ulnar neuropathy of right upper extremity Lesion of ulnar nerve Type 2 diabetes mellitus with hyperglycemia, with long-term current use of insulin Vitamin D insufficiency Unspecified vitamin D deficiency Dyslipidemia Other and unspecified hyperlipidemia documented in this encounter Care Teams Him Director Relationship Specialty Start Date End Date Sravani Salas APRN [address] [place] [address] PCP - General Family Medicine 01/15/17 documented as of this encounter
--- OUTSIDE RECORDS SUMMARY | 2024-08-14 01:21 | XMS_ITS | Encounter Summary ---
Author Organization [facility] [place] [address] Care Team Providers Care Coastal/Harbor Defense Officer Name Role Phone Sravani Salas APRN Primary Care Provider [phone] Reason for Visit * Reason Onset Date Comments Medication Refill 01/04/2021 Encounter Details Date Type Department Care Team (Late st Contact Info) Description 01/04/2021 Refill [place] [id number] Shaun Mirza, RN Social History Tobacco Use Types Packs/Day [...] 10:30 AM EST Office [place] [address] Rodrigo Conteh MD [facility] [address] documented as of this encounter Visit Diagnoses Not on filedocumented in this encounter Care Teams Coastal/Harbor Defense Officer Relationship Specialty Start Date End Date Sravani Salas APRN [address] [place] [address] PCP - General Family Medicine 01/15/17 documented as of this encounter
--- OUTSIDE RECORDS SUMMARY | 2024-08-14 01:21 | XMS_ITS | Encounter Summary ---
Author Organization [facility] [place] [address] Care Team Providers Care Snipper Name Role Phone Sravani Salas APRN Primary Care Provider [phone] Reason for Visit * Reason Comments Follow-up W/C DOI Right Arm Pain burning sensation in lower arm and ring and small fingers Encounter Details Date Type Department Care Team (Late st Contact Info) Description 03/08/2021 10:00 AM EDT Office Visit [place] [address] Cleveland Torres MD [facility] [place] [address] Ulnar neuropathy of right upper extremity Social [...] Sign Reading Time Taken Comments Blood Pressure 123/80 03/08/2021 9:56 AM EDT Pulse 98 03/08/2021 9:56 AM EDT Temperature - - Respiratory Rate - - Oxygen Saturation 97% 03/08/2021 9:56 AM EDT Inhaled Oxygen Concentration - - Weight 95.3 kg (210 lb) 03/08/2021 9:56 AM EDT Height 162.6 cm (5' 4) 03/08/2021 9:56 AM EDT Body Mass Index 36.05 03/08/2021 9:56 AM EDT documented in this encounter Progress Notes * Cleveland Torres MD - 03/08/2021 10:00 AM EDT [facility] [place] [address] Phone: PAIN MANAGEMENT FOLLOW UP DATE OF VISIT 03/08/2021 Patient Isiah Medrano 1965 REFERRING PROVIDER Panfilo Evangelista MD [address] [address] PRIMARY CARE PROVIDER Sravani Salas APRN Opioid agreement signed date: Most recent UDT results and date: [place] and [place] Prescription Monitoring Program were checked & no concerns identified. ORT score and date: Naloxone discussed? Home storage of opioids: Discussed disposal of opioids: CHIEF COMPLAINT: HPI ?? HPI Isiah Medrano is a 55 y.o. is here for follow-up after his spinal cord stimulator trial. Patient reports he had about 20 to 25% relief of his pain in the ulnar distribution of his right arm. He has aperipheral stimulator over the ulnar nerve which gives him no relief in fact he said it made his pain worse. He continues on gabapentin 900 mg 4 times a day as well as duloxetine and low-dose naltrexone. He remains out of work. He continues to live with his parents. His mood is significantly improved but he still states he gets depressed. He follows up with a psychologist/therapist on a weekly basis. ?? Interval history: Patient has been through the functional alevism program. He said it was quitepainful but he was able to complete the course. He said at night he had trouble sleeping during thecourse because of pain. 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 He continues to live with his parents and is still in the process of getting divorc ed from his of 34 years but overall his mood and affect are much better. ADLS: With difficulty ABERRANT Behavior: None ANALGESIA: Fair ADVERSE EFFECTS: None ADVERSE DRUG REACTIONS Allergies as of 03/08/2021 - Review Complete 03/08/2021 Allergen Reaction Noted ??? Eptifibatide Other (See Comments) ??? Amoxicillin Other (See Comments) 02/07/2017 MEDICATIONS Medications 03/08/21 1002 Medication Sig Taking? RX ADULT COMPOUNDED MEDICATION 2-4 grams To affected area 3-4 Times daily PRN pain Dispense 240 grams Yes metoprolol succinate XL (Toprol-XL) 25 mg Tablet Sustained Release 24 hr daily. Yes humuLIN R Solution *2 - 3 times daily* Yes insulin detemir U-100 (Levemir U-100 Insulin) Solution Inject 30 Units subcutaneously every morning. Yes Magtab 84 mg Tablet Sustained Release Indications: 3 times a week Yes imipramine (Tofranil) 50 mg Tablet nightly. Yes ARIPiprazole (ABILIFY) 10 mg Tablet 10 mg daily[address] Yes [address] (CYMBALTA) 60 mg Capsule, Delayed Release(E.C.) daily. Yes ferrous sulfate 325 mg (65 mg iron) Tablet daily. Yes sertraline (ZOLOFT) 100 mg Tablet daily. Yes metFORMIN (GLUCOPHAGE) 1,000 mg Tablet 2 times daily (with meals). Yes traZODone (DESYREL) 100 mg Tablet nightly. Yes insulin needles, disposable, (BD ULTRA-FINE MINI PEN NEEDLE) 31 gauge x 3/16 Needle by Other route. 1 box = 100 insulin PEN needles. Yes Ibuprofen 200 mg Capsule Take 400 mg by mouth 3 times daily as needed (pain). Yes CHOLECALCIFEROL, VITAMIN D3, (VITAMIN D3 ORAL) Take 1 tablet by mouth nightly. Yes isosorbide mononitrate (IMDUR) 30 mg Tablet Sustained Release 24 hr Take 60 mg by mouth daily. Yes Insulin Syringe-Needle U-100 0.5 mL 31 gauge x 5/16 Syringe 1 each by [facility]Non- Drug; Combo Route) route 2 times daily. Yes NALTREXONE HCL (NALTREXONE ORAL) Take 1 mg by mouth 4 times daily as needed (pain). Indications: pttakes 4.5 mg daily Yes pen needle, diabetic (NOVOFINE PLUS) 32 gauge x 1/6 Needle 1 each by [facility].(Non- Drug; Combo Route) route 4 times daily [...] route 2 times daily (before meals). Yes nitroGLYcerin (NITROSTAT) 0.4 mg Tablet, Sublingual as needed for Chest pain. PHYSICAL EXAMINATION Patient Vitals for the past 24 hrs: Pulse BP SpO2 03/08/21 0956 98 123/80 97 % Body mass index is 36.05 kg/m??. BP 123/80 Pulse 98 Ht 162.6 cm (5' 4) Wt 95.3 kg (210 lb) PHQ-9 QUESTIONNAIRE SCORE ONLY (AMB) 02/20/2021 PHQ - 9 Score (Patient) 16 (Moderately Severe Depression) Some recent data might be hidden Patient makes good eye contact communicates easily. His affect is normal. Pain on handgrip into theelbow. Sensitivity to touch along the ulnar distribution right arm. Imaging: No new imaging Impression: Right ulnar neuropathy. Patient does not have really ability to return to any physical labor which he has done his whole working life. Overall he is somewhat better in terms of functioning on a day-to-day basis. Recommendations: #1 Medications: Consider medical cannabis. I suggested he talk to his PCP about authorizing this for him. If they could not do that I would do the paperwork for him. I have renewed his low-dose naltrexone 4.5 mg/day for 1 year and again his PCP could do this or come back to me if needed. #2 Procedures: None at this time he is exhausted all procedures that I could think of that might help. #3 Imaging: None at this time #4 Referrals: None at this time #5 Behavioral Medicine: Continue for coping skills #6 Physical Medicine: None at this time Isiah Medrano had the opportunity to ask questions and indicated that all questions were answered to their satisfaction. documented in this encounter Plan of Treatment Upcoming Encounters Date Type Department Care Team (Late st Contact Info) Description 08/18/2024 10:30 AM EST Office [place] [address] Rodrigo Conteh MD [facility] [address] documented as of this encounter Visit Diagnoses Diagnosis Ulnar neuropathy of right upper extremity Lesion of ulnar nerve Type 2 diabetes mellitus with hyperglycemia, with long-term current use of insulin Vitamin D insufficiency Unspecified vitamin D deficiency Dyslipidemia Other and unspecified hyperlipidemia documented in this encounter Care Teams Snipper Relationship Specialty Start Date End Date Sravani Salas APRN [address] [place] [address] PCP - General Family Medicine 01/15/17 documented as of this encounter
--- OUTSIDE RECORDS SUMMARY | 2024-08-14 01:21 | XMS_ITS | Encounter Summary ---
Author Organization [facility] [place] [address] Care Team Providers Care Mechanical Design Engineer Products Name Role Phone Sravani Salas APRN Primary Care Provider [phone] [phone] Encounter Details Date Type Department Care Team (Late st Contact Info) Description 01/13/2021 8:00 AM EDT Office Visit Functional Islam Program at [facility] [address] [place] [address] Isiah Taylor, PT Ulnar neuropathy of right [...] - Therapy - Isiah Taylor, PT - 01/13/2021 8:00 AM EDT [facility] Physical Therapy Note [facility] Day 14 Protocol Subjective: Isiah returns today for a scheduled follow up appointment with [facility] and he reports being comfortable with the exercise plan that we have established. Objective: Treatment Received: Refer to [facility] protocol for explanation of program/physical therapy details. 1. Therapeutic and Functional Exercise: See [facility] flow sheets for progression. Strengthening and conditioning designed per [facility] protocol was: (x) Completed ( ) Not completed 2. Home Exercise Program: Reviewed and modified current home exercise program. The HEP was: (x) Unchanged - Finalized strategies for continued independent self care; handouts - individualizedYour Home Exercise Program, copies of exercise and conditioning flow sheets, and audio recordingsof exercise routines to follow along. ( ) Modified 3. Neurological Assessment: (x) No change in status ( ) Change in status Assessment: Isiah is able to monitor and progress his own home program at this point and is looking forward to continuing his workouts. Plan: Return for home program follow-up in 1 week and then one month follow-up testing per [facility] protocol. Isiah was encouraged to call with any questions regarding his home exercise program. Length of visit: Participated in program physical activity from 8:00 a.m. through 2:30 a.m. today. During that time, a total of 15 minutes was spent treating and educating as well as monitoring and refining individualized physical therapy strategies. Care provided by Isiah Taylor PT and Josefina Jung PTA. 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
--- OUTSIDE RECORDS SUMMARY | 2024-08-14 01:21 | XMS_ITS | Encounter Summary ---
Author Organization [place] [address] Care Team Providers Care Quality Management Coordinator Name Role Phone Sravani Salas APRN Primary Care Provider [phone] Encounter Details Date Type Department Care Team (Late st Contact Info) Description 12/26/2020 8:00 AM EDT Office Visit Functional Adventism Program at [facility] [address] [place] [address] Isiah Taylor, PT Pain of right upper [...] - Therapy - Isiah Taylor, PT - 12/26/2020 8:00 AM EDT [facility] Physical Therapy Note [facility] Day 5 Protocol Subjective: Isiah returns today for a scheduled follow up appointment with [facility]; he reports feels like he is getting in a little bit better shape. Objective: Treatment Received: Refer to [facility] protocol [...] 10:30 AM EST Office [place] [address] Rodirgo Conteh MD [facility] [place] [address] documented as of this encounter Visit Diagnoses Diagnosis Pain of right upper extremity Ulnar neuropathy of right upper extremity Lesion of ulnar nerve Type 2 diabetes mellitus with hyperglycemia, with long-term current use of insulin Vitamin D insufficiency Unspecified vitamin D deficiency Dyslipidemia Other and unspecified hyperlipidemia documented in this encounter Care Teams Quality Management Coordinator Relationship Specialty Start Date End Date Sravani Salas APRN [address] [place] [address] PCP - General Family Medicine 01/15/17 documented as of this encounter
--- OUTSIDE RECORDS SUMMARY | 2024-08-14 01:21 | XMS_ITS | Encounter Summary ---
Author Organization Formerly [facility] [place] [address] Care Team Providers Care Data Entry Coordinator Name Role Phone Sravani Salas APRN Primary Care Provider [phone] [phone] Encounter Details Date Type Department Care Team (Latest Contact Info) Description 05/12/2021 4:30 PM EDT TH Visit (TeleHealth) [place] [id number] Rodrigo Conteh MD [facility] [place] [address] Type 2 diabetes, controlled, with neuropathy; Other fatigue; Vitamin D insufficiency Social History Tobacco Use [...] Sign Reading Time Taken Comments Blood Pressure 120/70 05/12/2021 4:50 PM EDT Pulse - - Temperature - - Respiratory Rate 12 05/12/2021 4:50 PM EDT Oxygen Saturation - - Inhaled Oxygen Concentration - - Weight 93 kg (205 lb) 05/12/2021 4:50 PM EDT Height 165.1 cm (5' 5) 05/12/2021 4:50 PM EDT Body Mass Index 34.11 05/12/2021 4:50 PM EDT documented in this encounter Patient Instructions * Patient Instructions* Rodrigo Conteh MD - 05/12/2021 4:30 PM EDT Plan: 1. Medication: Adjustment of diabetes treatment regimen: To cont Levemir vial 30 units qAM and he prefers insulin vial to help reduce the cost. will allow him to adjust the dose by 2 units to keep fasting BG at the target of 90-150 range To cont Humulin-R vial 10-40u qAM with meals, and to hold if not eating or low BG (*Tasha CGM was too costly and he is ok to check FSBG 2-4x/day further) Ok to give extra Humulin-R sliding scale [...] check FSBG before each meal and at bedtime. Target BG 90-150 while fasting and 90-180 pre-meal during daytime Target A1c in 7% range for this patient (7-8% as his target). 3. Diet and exercise: low fat/controlled carb diet & exercise as tolerated to keep weight down or at least stable. Patient will keep log of blood glucose and insulin used for review at next visit. 4. Lab: To check lab locally at [facility] lab soon as ordered. Orders Placed This Encounter Procedures ??? Hemoglobin A1c ??? Basic Metabolic Panel (non-fasting) ??? TSH ??? Vitamin D, 25-Hydroxy ??? LDL Cholesterol, Direct ??? U Albumin/Cre Ratio 5. RTC: Next visit in 6 months. Will check HbA1c and BMP at local lab at the time. Rodrigo Conteh MD, PhD, FACE, FACP documented in this encounter Progress Notes * Rodrigo Conteh MD - 05/12/2021 4:30 PM EDT Endocrine Clinic Name: Reid Medrano : 1965 Date: 05/12/2021 PCP: Sravani Salas APRN Reason for visit: diabetes type 2 switched from U-500 insulin to Levemir and humalin-R since 2018 with better A1c 7.3% last year (was high A1c 11.5%). Patient verbally consents to this telehealth visit and understands that this visit may be billed, similar to a clinic office visit. I provided care to the patient today via [facility] plus telephone to help with the audio portion. The total time associated with this visit was 30 minutes. Diabetes treatment regimen: Glimiperide 4 mg bid and had to hold Metformin 1000 mg bid since March due to Cr 1.6 with eGFR 45 causing higher BG (ok to resume 500 mg bid as eGFR is >30) Levemir 30 units qAM HumalinR 10-40u BID/TID (*he used to take U500 pen 175 units in PM i.e. 35u on the syringe, and missed the AM dose often) FSBG: checking FSBG 2-3x/day, ranging between 60s-250s mg/dl Most recent HA1c: [...] (12/26/18) => 7.3% (09/23/19) => 9.6% (05/22/21) Hypoglycemia during the interval time: rarely low [...] to Visit Medication Sig Dispense Refill ??? humuLIN R Solution *2 - 3 times daily* ??? insulin detemir U-100 (Levemir U-100 Insulin) Solution Inject 30 Units subcutaneously every morning. 10 mL 4 ??? ARIPiprazole (ABILIFY) 10 mg Tablet 10 mg daily. ??? DULoxetine DR (CYMBALTA) 60 mg Capsule, Delayed Release(E.C.) daily. ??? ferrous sulfate 325 mg (65 mg iron) Tablet daily. ??? CHOLECALCIFEROL, VITAMIN D3, (VITAMIN D3 ORAL) Take 1 tablet by mouth nightly. ??? allopurinol (ZYLOPRIM) 300 mg Tablet Take 300 mg by mouth nightly. ??? aspirin 325 mg Tablet Take 325 mg by mouth daily. Ordered for Heart attack reasons ??? gabapentin (NEURONTIN) 300 mg Capsule Take 900 mg by mouth 4 times daily. 3 ??? atorvastatin (LIPITOR) 40 mg Tablet Take 40 mg by mouth nightly. ??? glimepiride (AMARYL) 4 mg Tablet Take 1 tablet by mouth 2 times daily. 180 tablet 3 ??? Blood Sugar Diagnostic (ONE TOUCH ULTRA TEST) test strip 1 each by Other route 4 times daily. Use as instructed 400 each 3 ??? RX ADULT COMPOUNDED MEDICATION 2-4 grams To affected area 3-4 Times daily PRN pain Dispense 240grams 1 each 3 ??? metoprolol succinate XL (Toprol-XL) 25 mg Tablet Sustained Release 24 hr daily. ??? Magtab 84 mg Tablet Sustained Release Indications: 3 times a week ??? imipramine (Tofranil) 50 mg Tablet nightly. ??? nitroGLYcerin (NITROSTAT) 0.4 mg Tablet, Sublingual as needed for Chest pain. ??? sertraline (ZOLOFT) 100 mg Tablet daily. ??? traZODone (DESYREL) 100 mg Tablet nightly. ??? [DISCONTINUED] metFORMIN (GLUCOPHAGE) 1,000 mg Tablet 2 times daily (with meals). ??? insulin needles, disposable, (BD ULTRA-FINE MINI PEN NEEDLE) 31 gauge x 3/16 Needle by Other route. 1 box = 100 insulin PEN needles. 1 each 3 ??? Ibuprofen 200 mg Capsule Take 400 mg by mouth 3 times daily as needed (pain). ??? isosorbide mononitrate (IMDUR) 30 mg Tablet [...] daily as needed. 100 each 11 ??? lisinopril (PRINIVIL;ZESTRIL) 20 mg Tablet Take 40 mg by mouth nightly. ??? magnesium oxide (MAG-OX) 400 mg Tablet Take 400 mg by mouth nightly. 3 ??? multivitamin (THERAGRAN) Tablet Take 1 tablet by mouth daily. ??? Insulin Syringe-Needle U-100 (BD INSULIN SYRINGE [...] ??? Smokeless tobacco: Former User Types: Chew Vaping Use ??? Vaping Use: Never used Substance and Sexual Activity ??? Alcohol use: No ??? Drug use: No ??? Sexual activity: Not Currently Other Topics Concern ??? Not on file Social History Narrative ??? Not on file Social Determinants of Health Financial Resource Strain: ??? Difficulty of Paying Living Expenses: Not on file Food Insecurity: ??? Worried About Running Out of Food in the Last Year: Not on file ??? Ran Out of Food in the Last Year: Not on file Transportation Needs: ??? Lack of Transportation (Medical): Not on file ??? Lack of Transportation (Non-Medical): Not on file Physical Activity: ??? Days of Exercise per Week: Not on file ??? Minutes of Exercise per Session: Not on file FAMILY HISTORY Family History Problem Relation Age of Onset ??? Diabetes Brother Physical exam BP 120/70 Resp 12 Ht 165.1 cm (5' 5) Wt 93 kg (205 lb) BMI 34.11 kg/m?? Appearance: mildly obese, very pleasant, NAD [...] Alb/Cr Ratio, Random <30 mcg/mg Cr 4 Addendum: outside lab 05/22/21 Below are the results [...] instead of 175-300 units/day). He had high c -peptide 7.3 from his own insulin production and [...] Medication: Adjustment of diabetes treatment regimen: To cont Levemir vial 30 units qAM and he prefers insulin vial to help reduce the cost. will allow him to adjust the dose by 2 units to keep fasting BG at the target of 90-150 range To cont Humulin-R vial 10-40u qAM with meals, and to hold if not eating or low BG (*Tasha CGM was too costly and he is ok to check FSBG 2-4x/day further) Ok to give extra Humulin-R sliding scale [...] check FSBG before each meal and at bedtime. Target BG 90-150 while fasting and 90-180 pre-meal during daytime Target A1c in 7% range for this patient (7-8% as his target). 3. Diet and exercise: low fat/controlled carb diet & exercise as tolerated to keep weight down or at least stable. Patient will keep log of blood glucose and insulin used for review at next visit. 4. Lab: To check lab locally at [facility] lab soon as ordered.=> higher A1c 9.6% (05/22/21) Orders Placed This Encounter Procedures ??? Hemoglobin A1c ??? Basic Metabolic Panel (non-fasting) ??? TSH ??? Vitamin D, 25-Hydroxy ??? LDL Cholesterol, Direct ??? U Albumin/Cre Ratio 5. RTC: Next visit in 6 months. [...] therapeutic decisions, and coordination of care. Rodrigo Cotneh MD, PhD, FACE CC: Sravani Salas APRN documented in this encounter Plan of Treatment Upcoming Encounters Date Type Department Care Team (Late st Contact Info) Description 08/18/2024 10:30 AM EST Office [place] [address] Rodrigo Conteh MD [facility] [place] [address] documented as of this encounter Visit Diagnoses Diagnosis Type 2 diabetes, controlled, with neuropathy Type II or unspecified type diabetes mellitus with neurological manifestations, not stated as uncontrolled Other fatigue Vitamin D insufficiency Unspecified vitamin D deficiency Type 2 diabetes mellitus with hyperglycemia, with long-term current use of insulin Vitamin D insufficiency Unspecified vitamin D deficiency Dyslipidemia Other and unspecified hyperlipidemia documented in this encounter Care Teams Data Entry Coordinator Relationship Specialty Start Date End Date Sravani Salas APRN [address] [place] [address] PCP - General Family Medicine 01/15/17 documented as of this encounter
--- OUTSIDE RECORDS SUMMARY | 2024-08-14 01:21 | XMS_ITS | Encounter Summary ---
Author Organization Formerly [facility] [place] [address] Care Team Providers Care Medical Service Representative Name Role Phone Sravani Salas APRN Primary Care Provider [phone] Reason for Visit * Reason Comments Right Arm Pain Elbow Encounter Details Date Type Department Care Team (Late st Contact Info) Description 01/11/2021 8:00 AM EDT Office Visit Functional Restorationist Program at [facility] [address] [place] [address] Josefina Jung, PLASTIC MOLDING OPERATOR Ulnar neuropathy of right upper extremity; Pain [...] Notes * Treatment - Therapy - Josefina Jung, PLASTIC MOLDING OPERATOR - 01/11/2021 8:00 AM EDT P Physical Therapy Note [facility] Day 17 Protocol Subjective: Isiah returns today for a scheduled follow up appointment with [facility]; he reports he thinkshis home exercise program will be manageable. Objective: Treatment Received: Refer to [facility] protocol for explanation of program/physical therapy details. 1. Therapeutic and Functional Exercise: See FRP flow sheets for progression. Strengthening and conditioning designed according to personal functional recovery goals and [facility] protocol was: (x) Completed ( [...] progressing as planned with quota based training. Patient is increasing independence with progression of Therabands, exercise ball and crate for home exercise/self care program. He is performing exercises with Modified [place]. Plan: Return for follow up with FRP [...] 10:30 AM EST Office [place] [address] Rodrigo Conteh MD [facility] [place] [address] documented as of this encounter Visit Diagnoses Diagnosis Ulnar neuropathy of right upper extremity Lesion of ulnar nerve Pain of right upper extremity Type 2 diabetes mellitus with hyperglycemia, with long-term current use of insulin Vitamin D insufficiency Unspecified vitamin D deficiency Dyslipidemia Other and unspecified hyperlipidemia documented in this encounter Care Teams Medical Service Representative Relationship Specialty Start Date End Date Sravani Salas APRN [address] [place] [address] PCP - General Family Medicine 01/15/17 documented as of this encounter
--- OUTSIDE RECORDS SUMMARY | 2024-08-14 01:21 | XMS_ITS | Encounter Summary ---
[place] [address] Care Team Providers Care Coder Name Role Phone Sravani Salas APRN Primary Care Provider [phone] [phone] Reason for Referral * Consultation (Routine) - Closed Specialty Diagnoses / Procedures Referred By Nii hoffman Referred To Contact Urology Diagnoses Erectile dysfunction of nonorganic origin Sravani Salas APRN [address] [place] [address] [facility] [place] [address] Referral ID Status Reason Start Date Expiration Date V isits Requested Visits Authorized [id number] Closed Consult, Test & Treat PCP Updated and/or Approved 11/15/2021 11/15/2022 12 12 Encounter Details Date Type Department Care Team (Latest Contact Info) Description 11/15/2021 Transcribe Orders eDH Incoming Referrals [phone] Sravani Salas APRN [address] [place] [address] Erectile dysfunction of nonorganic origin Social History Tobacco Use Types Packs/Day Years [...] 10:30 AM EST Office Visit [place] [address] Rodrigo Conteh MD 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
--- OUTSIDE RECORDS SUMMARY | 2024-08-14 01:21 | XMS_ITS | Encounter Summary ---
[place] [address] Care Team Providers Care Apprentice Painter Brush Name Role Phone Sravani Salas APRN Primary Care Provider [phone] [phone] Reason for Visit * Reason Comments Right Arm Pain Encounter Details Date Type Department Care Team (Late st Contact Info) Description 02/20/2021 2:00 PM EDT Office Visit [place] [phone] Briana Crane, OT Ulnar neuropathy of right [...] Progress Notes * Briana Crane OT - 02/20/2021 2:00 PM EDT FUNCTIONAL CONFUCIANISM PROGRAM FRP 1-MONTH FOLLOW-UP Dear Isiah Medrano, Thank you for attending your follow-up visit today. Your chief complaint requiring the FRP was was right arm pain burning in nature constant starting in shoulder an moving down arm into 4th and 5th digits. ??Anatomic diagnoses have included ulnar neuropathy s/p work related accident in 2014. ??Prior treatments included PT, ulnar nerve transposition, trial of spinal cord stimulator with no relief,??ulnar nerve stimulator??which made things worse, injections, gabapentin, LDN.?Most recent imaging has revealed no surgical lesion and surgery has been waived Since completing the program, he was not able to obtain the compound creme for his right elbow due to denial by Workers Comp. He reports his depression has been worse, and his insomnia continues to be bad. Patient Active Problem List Diagnosis Code ??? [...] artery disease) I25.10 ??? Chronic pain G89.29 Results of the Touch Pad Questionnaires You Filled out: FRP DISCHARGE SUMMARY QUESTIONNAIRE TOTALS 12/20/2020 01/12/2021 02/20/2021 INSOMNIA SEVERITY INDEX 24 (Severe insomnia) 19 (Moderately severe insomnia) 21 (Moderately severe insomnia) Total PHQ-9 17 (Moderately Severe Depression) 10 (Moderate Depression) 16 (Moderately Severe Depression) CENTRAL SENZITIZATION INVENTORY 47 (Moderate) 35 (Mild) 41 (Moderate) PDQ Functional Condition 69 42 51 PDQ Psychosocial Component 50 51 44 PDQ Total Score 119 (Extreme) 93 (Severe) 95 (Severe) JEANNETTE-7 13 (Moderate Anxiety) 13 (Moderate Anxiety) 12 (Moderate Anxiety) FACS SCORING 78 (Extreme) 57 (Severe) 61 (Severe) Visual Analog Scale (VAS) for Pain Score 6.1 6.73 6.82 Pain over the last week rating score 7.58 6.92 7.68 Title Endurance and Flexibility Test Results: Reported Tolerance (minutes) First Day of FRP: End of FRP: 1 Month Follow-up: 3 Month Follow-up (optional): Sittin 240 240 Standin 120 120 Walkin 60 60 Flexibility (degrees): Neck: First Day of FRP: End of FRP: 1 Month Follow-up: 3 Month Follow-up (optional): Bending Forward: 55 65 65 Bending Back: 45 50 55 Turning Right: 60 70 70 Turning Left: 60 70 70 Tilting Right: 25 40 45 Tilting Left: 35 40 35 Low Back: First Day of FRP: End of FRP: 1 Month Follow-up: 3 Month Follow-up (optional): Bending Forward: 75 85 80 Bending Back: 25 30 25 Straight Leg Raise Right: 80 85 80 Straight Leg Raise Left: 80 90 85 Straight Leg Raise Pelvic: 5 10 20 Treadmill First Day of FRP: End of FRP: 1 Month Follow-up: 3 Month Follow-up (optional): MET Level: Heart Rate: MET Level: Heart Rate: MET Level: Heart Rate: MET Level: Heart Rate: Treadmill Endurance: 7 126 7 120 9 121 Reason for Stopping (if applicable): Shortness of Breath balance concerns Short of breath Physical Capacity Test Results: Lifting: (pounds/heart rate) First Day of FRP End of Program 4 Week Follow-Up ?? Repetitive Floor to Waist ?? 60/115?? 60/122? Repetitive Waist to Shoulder?40/113 35/118? 1-Time Maximum 30 ??80 80? 2-Handed Carry - 50 ft 20 ??50 50? Work Demand Level Light?Medium Medium ? The results of this testing must be integrated with clinical findings and other observations to derive a final assessment of work capacity. ?? [place] Occupational Performance Measure Results - 3 Month??Occupational Goals: Occupational Goals at Beginning of FRP* P S Current Status: End of Program Current Status:1-month Follow-up P S Work/Productive Activity:?Unclear n/a ??n/a ??Still unclear, will be meeting with his Voc Rehab Counselor for job searching ??Not working yet; waiting for appointment for [facility] physical return to work ??n/a ??n/a Recreation/Leisure:?be able to walk for an hour without a break 4 2 Walking about 30 minutes during FRP Currently walking 30 minutes a day without a break ??8 ??8 Resume hunting - manage firearm, carry kill, hike in [place]ung (1) (1) ??Not tried yet ??not tried yet ??- ??- Be able to ride 4-mahoney??over bumpy terrain 1 1 ??Not tried yet ??Has ridden his 4-mahoney multiple times short distances, but it was very uncomfortable ??5 ??5 Daily Living (ADL, IADL):??be able to sleep for 6-7 hours/night 3 2 ??Still sleeping about 3-4 hours/night Still sleeping about 3-4 hours/night ??3 ??4 be able to help his elderly parents get off the floor if they??fall (4) (2) Not tried yet Not tried??- ??- be able operate a chain saw to cut firewood, split and stack??wood 1 1 ??Not tried yet ??Tried to use chainsaw, but vibration was too much; has lifted some firewood ??4 ??5 be able to maintain his vehicle 1 1 ??Not tried yet Changed oil, done simple routine maintanance ??5 ??5 be able to mow the lawn 1 1 Was able to mow part of his lawn Able to mow lawn with breaks 7?8 ??Total 11 8 ?? Total ??32 ??35 ?Mean score 1.83 1.33 ?? Mean scores ??5.33 ??5.83 ??Change from Day 1 3.5 4.5 Lifting Goal:??50 ? Liftin pounds ? *[place]: P=Performance Score ??S=Satisfaction with Performance Score ?? Your Current Work/Functional Status: Not working yet, but waiting for the [facility] for physical job related testing. Otherwise, has made substantial gains towards his functional goals. Status of Discharge Plans since Last Visit/Follow-up: has been consistent with his home program [facility] HOME EXERCISE PROGRAM ? Specific types Frequency 1 Week Status 1 Month Status Aerobic / Endurance ? 15-20 minute walk ?? In winter: Snowshoeing ?? On bad weather days: Morning warmup daily ??Walks daily 30 minute ??walking daily 30 minutes ?? Stretching ? Stretches in binder, special attention to LIGHT BLUE starred stretches 1-2x per day ??Daily - enjoys them, feels much better and loosened up. Mostly once a day? Strength training ? Band resistance program in binder ?? Crate lifting program 3x per week ??Compliant Crate lifting and band resistance program; using yogaball for some strengthening exercises?? Relaxation strategies ? Breathing focus daily Helpful Does daily after his walk.?? Helpful 04/11 Silent meditation a couple times a week, plus walking meditation ?? Flare-up Plan: 1. Stay consistent with self-care program 2. Use pacing 3. Use mindfulness 4. When it gets cranky -??don???t panic! 5. Go for a walk to get your mind off it As-needed ?? Is doing all components? Assessment: Mr. Medrano has maintained the physical gains made during FRP. He is consistently implementing his home program. He has made substantial progress towards his functional goals, however is still not back to work, is working with his voc rehab counselor and civil rights attorney to resolve back to work issues. He still has not been able to try the prescribed compound cream for his right elbow, due to denial by workers comp. PLAN: Exercise: continue with current plan, add waist to shoulder crate lifting Vocational Planning: continue voc rehab counselor and civil rights attorney Counseling: continue with current counselor Next FRP Follow-up Date: 3-month follow-up to be scheduled 60 minutes was spent to review status of goals, test physical performance, and plan for continued self care. Cc: Isiah Medrano [address] [facility] [place] [address] Sravani Salas APRN [address] [place] [address] documented in this encounter Plan of Treatment Upcoming Encounters Date Type Department Care Team (Late st Contact Info) Description 08/18/2024 10:30 AM EST Office [place] [address] Rodrigo Conteh MD [facility] [place] [address] documented as of this encounter Visit Diagnoses Diagnosis Ulnar neuropathy of right upper extremity Lesion of ulnar nerve Type 2 diabetes mellitus with hyperglycemia, with long-term current use of insulin Vitamin D insufficiency Unspecified vitamin D deficiency Dyslipidemia Other and unspecified hyperlipidemia documented in this encounter Care Teams Apprentice Painter Brush Relationship Specialty Start Date End Date Sravani Salas APRN [address] [place] [address] PCP - General Family Medicine 01/15/17 documented as of this encounter
--- OUTSIDE RECORDS SUMMARY | 2024-08-14 01:21 | XMS_ITS | Encounter Summary ---
Author Organization [facility] [place] [address] Care Team Providers Care Hand Inspector Name Role Phone Sravani Salas APRN Primary Care Provider [phone] Reason for Visit * Reason Comments Right Arm Pain Elbow Encounter Details Date Type Department Care Team (Late st Contact Info) Description 01/10/2021 8:00 AM EDT Office Visit Functional [facility]alian Program at [facility] [address] [place] [address] Josefina Jung OTA Ulnar neuropathy of right upper extremity; Pain [...] * Treatment - Therapy - Josefina Jung OTA - 01/10/2021 8:00 AM EDT [facility] Occupational Therapy Note [facility] Day 16 Protocol Subjective: Mr. Medrano returns today for a scheduled follow up appointment with [facility]. He reports he likes longer mindfulness practices because he has more time to get into them. Objective: Refer to [facility] protocol for details and explanation of each activity. Mr. Medrano participated in the following activities: Functional Therapy: 1. AM Session of functional conditioning ( X ) Completed ( ) Not Completed 2. PM Session of functional conditioning ( X ) Completed ( ) Not Completed Instructed in 5 minutes of resting in awareness mindfulness pause meditation activity. Participated in a 30 minute 1.1 walk including 2 flights of stairs, and 15 minutes of unguarded lyles bag toss activity. Individualized Treatment: Increased resistance levels of functional conditioning exercises according to personal recovery goals. Initiated a functional conditioning activity designed to practice safe lifting form and transfer techniques to help those techniques translate to real life situations at home. to address his functional goal of taking care of his parents. Please see goals in initial OT evaluation [...] establish and implement individualized occupational therapy strategies. documented in this encounter Plan of Treatment Upcoming Encounters Date Type Department Care Team (Late st Contact Info) Description 08/18/2024 10:30 AM EST Office [place] [address] Rodrigo Conteh MD [facility] [place] [address] documented as of this encounter Visit Diagnoses Diagnosis Ulnar neuropathy of right upper extremity Lesion of ulnar nerve Pain of right upper extremity Type 2 diabetes mellitus with hyperglycemia, with long-term current use of insulin Vitamin D insufficiency Unspecified vitamin D deficiency Dyslipidemia Other and unspecified hyperlipidemia documented in this encounter Care Teams Hand Inspector Relationship Specialty Start Date End Date Sravani Salas APRN [address] [place] [address] PCP - General Family Medicine 01/15/17 documented as of this encounter
--- OUTSIDE RECORDS SUMMARY | 2024-08-14 01:21 | XMS_ITS | Encounter Summary ---
Author Organization [facility] [place] [address] Care Team Providers Care Rn Operating Room Name Role Phone Josue Sravani Rosen CADY Primary Care Provider [phone] Encounter Details Date Type Department Care Team (Late st Contact Info) Description 01/06/2021 11:00 AM EDT Office Visit Functional Quaker Program at [facility] [address] [place] [address] Sandra Hatch APRN [facility] [place] [address] Pain of right upper extremity Social History [...] Progress Notes * Sandra Hatch APRN - 01/06/2021 11:00 AM EDT [id number] Isiah Medrano 01/06/2021 FUNCTIONAL RSTORATION PROGRAM REHABILITATION TRAINING LECTURE Chief complaint requiring rehabilitation: ulnar neuropathy right Presenter: Sandra Hatch APRN Lifestyle and wellness discussion The purpose of this discussion is to identify modifiable and non modifiable factors that influencehealth and wellness. We will define wellness and health, discuss non modifiable risk factors of morbidity and mortality and modifiable factors. We will then discuss strategies for maximal management ofnon modifiable factors. Discussion will include diet and exercise recommendations, sleep and stressmanagement. All participants will be encouraged to participate and share helpful coping strategies. Time Spent: 1 hr. documented in this encounter Plan of Treatment Upcoming Encounters Date Type Department Care Team (Late st Contact Info) Description 08/18/2024 10:30 AM EST Office [place] [address] Rodrigo Conteh MD [facility] [place] [address] documented as of this encounter Visit Diagnoses Diagnosis Pain of right upper extremity Type 2 diabetes mellitus with hyperglycemia, with long-term current use of insulin Vitamin D insufficiency Unspecified vitamin D deficiency Dyslipidemia Other and unspecified hyperlipidemia documented in this encounter Care Teams Rn Operating Room Relationship Specialty Start Date End Date Sravani Salas APRN [address] [place] [address] PCP - General Family Medicine 01/15/17 documented as of this encounter
--- OUTSIDE RECORDS SUMMARY | 2024-08-14 01:21 | XMS_ITS | Encounter Summary ---
Author Organization [facility] [place] [address] Care Team Providers Care Leak Gang Supervisor Name Role Phone Sravani Salas APRN Primary Care Provider [phone] Encounter Details Date Type Department Care Team (Late st Contact Info) Description 12/26/2020 11:00 AM EDT Office Visit Functional Shinto Program at [facility] [address] [place] [address] Asia Hernandez Fifi [facility] [place] [address] Pain of right upper extremity Social History [...] Progress Notes * Asia Hernandez PsyD - 12/26/2020 11:00 AM EDT [facility], a Service of [facility] Functional Shinto Program / Living Well with Pain Education Series Patient: Isiah Medrano Date: 12/26/20 Topic: Why Things Hurt: Reviewing the Basics of Pain Neuroscience Education 60 minute Health & Behavior Intervention Group focused on Pain Neuroscience and Pain Psychology. Today's topic focused on Why Things Hurt and is a brief review of pain neuroscience for patients, previously introduced at Pain 101. Patients introduced to the Living with Pain series, which consists of 9 psychoeducation groups thatprovide patients an understanding of the neurobiology of pain and the ways that changes to the nervous system contribute to the development of chronic pain. They were also provided an overview of pain psychology, and future sessions will help participants identify the ways their behaviors, emotions, attitudes, and thoughts all play a role in their pain experience and response to treatment. The intention is to help patients better understand the complexity of their pain and enhance their motivation and ability to engage in active pain care, and thereby develop more effective self management strategies. Participants were provided the rationale for the education, that research has shown that if patients know and understand about pain, they experience better treatment outcomes, function better, experience less pain, and have greater interest in healthy exercise and movement. Isiah was well engaged with this group, and expressed understanding and appreciation of the topic and how it relates to pain and rehabilitation. Diagnosis: Chronic URE pain Psychosocial factors contributing to chronic pain documented in this encounter Plan of Treatment Upcoming Encounters Date Type Department Care Team (Late st Contact Info) Description 08/18/2024 10:30 AM EST Office Visit [place] [address] Rodrigo Conteh MD [facility] [place] [address] documented as of this encounter Visit Diagnoses Diagnosis Pain of right upper extremity Type 2 diabetes mellitus with hyperglycemia, with long-term current use of insulin Vitamin D insufficiency Unspecified vitamin D deficiency Dyslipidemia Other and unspecified hyperlipidemia documented in this encounter Care Teams Leak Gang Supervisor Relationship Specialty Start Date End Date Sravani Salas APRN [address] [place] [address] PCP - General Family Medicine 01/15/17 documented as of this encounter
--- OUTSIDE RECORDS SUMMARY | 2024-08-14 01:21 | XMS_ITS | Encounter Summary ---
Author Organization [facility] [place] [address] Care Team Providers Care Aircraft Delivery Checker Name Role Phone Sravani Salas APRN Primary Care Provider [phone] [phone] Encounter Details Date Type Department Care Team (Late st Contact Info) Description 12/27/2020 11:00 AM EDT Office Visit Functional Worship Program at [facility] [address] [place] [address] Asia Hernandez PsyD [facility] [place] [address] Pain of right upper extremity; Chronic pain syndrome Social History Tobacco Use [...] Progress Notes * Asia Hernandez PsyD - 12/27/2020 11:00 AM EDT [facility] Active Pain Care, a Service of [facility] Living Well with Pain Education Series / Functional Worship Program Patient: Isiah Medrano Date: 12/27/20 Appt: Health & Behavior Intervention Group (Pain Neuroscience Education) Topic: History of Pain and Its Treatment Time: 11:00am - 12:00pm Mode: In person Today's Health & Behavioral Intervention group focused on reviewing the history of pain, including its history and treatment, and presenting this historical context to describe the development ofthe biomedical/pathoanatomical model of pain. Provide this information to help patients understand the complexities of chronic pain, particularly the clinical features that are not explainable by a biomedical approach, and some of the resulting limitations of treatment. The biopsychosocial model ofpain was briefly introduced and the rationale for interdisciplinary treatment was reinforced. Discussion involved some of the frustrations that patients have had with past unimodal treatment oftheir pain, and they were encouraged to consider aspects of the pain experience that are not accounted for by a biomedical model. Isiah was encouraged to ask questions throughout and he was also provided handouts of the materials covered. Isiah was adequately - engaged with the topic, and was quiet but respectful during this education session. Diagnosis: Chronic Pain Psychosocial Factors Contributing to Chronic Pain documented in this encounter Plan of Treatment Upcoming Encounters Date Type Department Care Team (Late st Contact Info) Description 08/18/2024 10:30 AM EST Office [place] [address] Rodrigo Conteh MD [facility] [place] [address] documented as of this encounter Visit Diagnoses Diagnosis Pain of right upper extremity Chronic pain syndrome Type 2 diabetes mellitus with hyperglycemia, with long-term current use of insulin Vitamin D insufficiency Unspecified vitamin D deficiency Dyslipidemia Other and unspecified hyperlipidemia documented in this encounter Care Teams Aircraft Delivery Checker Relationship Specialty Start Date End Date Sravani Salas APRN [address] [place] [address] PCP - General Family Medicine 01/15/17 documented as of this encounter
--- OUTSIDE RECORDS SUMMARY | 2024-08-14 01:21 | XMS_ITS | Encounter Summary ---
[place] [address] Care Team Providers Care Public Health Technologist Name Role Phone Sravani Salas APRN Primary Care Provider [phone] Reason for Visit * Consultation (Routine) - Closed Specialty Diagnoses / Procedures Referred By Nii hoffman Referred To Contact Urology Diagnoses Erectile dysfunction of nonorganic origin Sravani Salas APRN [address] [place] [address] [facility] [place] [address] Referral ID Status Reason Start Date Expiration Date V isits Requested Visits Authorized [id number] Closed Consult, Test & Treat PCP Updated and/or Approved 11/15/2021 11/15/2022 12 12 Encounter Details Date Type Department Care Team (Late st Contact Info) Description 03/28/2022 2:00 PM EDT [place] [phone] Tre Nicolas MD [facility] [place] [address] Erectile dysfunction, unspecified erectile dysfunction type Social History Tobacco Use Types Packs/Day Years [...] Sign Reading Time Taken Comments Blood Pressure 117/78 03/28/2022 1:55 PM EDT Pulse 78 03/28/2022 1:55 PM EDT Temperature - - Respiratory Rate - - Oxygen Saturation - - Inhaled Oxygen Concentration - - Weight - - Height - - Body Mass Index - - documented in this encounter Progress Notes * Tre Nicolas MD - 03/28/2022 2:00 PM EDT S: I have been requested by Sravani Salas to see Mr. Medrano for my opinion regarding his erectiledysfunction. He is a very pleasant 57-year-old gentleman with a history of erectile dysfunction forthe last 7-8 years. He says his penile rigidity is approximately 0% at best without medications. With PDE5 inhibitors he is able to achieve the same erection. He has tried Viagra in the past, last taken 3-4 years ago at unknown dose. He has also tried a CAT in the past without success. His intentional erections are less frequent. His sustaining capacities are poor. Nocturnal/morning spontaneous erections are absent, and less frequent than previous. He rates his sexual desire at 100% and says it is intact. He says his ejaculation is too rapid, with an ejaculatory time of approximately 5 minutes. Orgasmic capability is intact. He denies significant penile curvature. He denies penile pain. He denies a history of penile trauma. He denies a history of pelvic or perineal trauma. He denies a history of regular bicycle riding. Sexual Health Inventory for Men (MICHAELA) 1. Rate your confidence: 1 2. Hard enough for penetration: 2 3. Maintain after penetration: 2 4. Maintain to completion: 1 5. Satisfaction from intercourse: 2 -- TOTAL 8 -- 1-7 Severe ED 8-11 Moderate ED 12-16 Mild to Moderate ED 17-21 Mild ED Other issues are denied. He receives PSA screening from his PCP. Past medical history is notable for DM (last A1c 8.9), CAD, h/o ME, hypertension, hyperlipidemia, anxiety and depression, gout, chronic pain, neuropathy. Past surgical history includes ulnar nerve, knee surgery, cardiac stents, nerve stimulator insertion. From a social perspective, he denies ever smoking. Alcohol usage is 2-[address] drug usage is denied. He is dating and in the process of a divorce. He is on disability. Family history is negative for any genitourinary cancers. He has epitifibatide and amoxicillin allergies. His medications were reviewed and are consistent with those in the electronic medical record. A review of systems was performed and he has no pertinent positives, except for those listed in thehistory of present illness. O: On physical exam today he is in general a healthy, well-appearing man. He is awake, alert and oriented to person place and time. Mood and affect are normal. Gait: Normal and neurologically intact. No focal motor or sensory deficits are noted. Skin: Skin is warm and dry. There are no visible scars, rashes or lesions. HEENT: He is normocephalic and atraumatic. There is no scleral icterus. Pupils are equally round and reactive to light and accommodation. Extraocular motions intact. Trachea is midline. Lungs: No audible wheezing, normal respiratory effort. Chest rise is symmetric. Extremities: Extremities do not demonstrate clubbing, cyanosis or edema. His abdomen is soft, nontender, nondistended. There is no abdominal tenderness, guarding or rebound. No inguinal hernias are seen. He has an umbilical hernia His phallus is circumcised. There are no penile lesions or palpable plaques. He has a patent, orthotopic urinary meatus. Both testes are scrotally located, left is high-riding The bilateral cords arepalpable and within normal limits. There are no testicular masses or nodules bilaterally. His scrotum is without edema or erythema. A digital rectal exam was deferred. A: This is a 57-year-old gentleman with erectile dysfunction. P: We discussed ED at length, including the etiology and natural history of the disease. We specifically talked about the management of ED. I explained that PDE5 inhibitors tend to lose efficacy as ED progresses, and that he unlikely to respond to these medications at this point given his poor baseline erectile function. I also explained that his ED was not medication induced, but was rather a consequence of the conditions for which he takes these medications (i.e. DM, CAD, hypertension, hyperlipidemia, etc.). Given this, I encouraged him to continue these medications. We then discussed the treatment algorithm for ED, and I explained his options. These include intraurethral alprostadil, intracavernosal injection therapy, and penile prosthesis placement. I also explained that penile prosthesis placement is not feasible at this time due to his poor diabetes control, but is a more reasonable option should his diabetic control improve. We discussed the risks and benefits of these options in detail today. Risks of intraurethral alprostadil include pain, priapism, reduced efficacy over time, and inadequate erectile response. Risks ofintracavernosal injection include bleeding, bruising, pain, priapism, reduced efficacy over time, worsening of Peyronie's disease, and inadequate erectile response. Risks of penile prosthesis placement include bleeding, bruising, swelling, infection, injury to surrounding structures, device mechanical failure, and erosion. He seemed most comfortable with discussing these options with his partner and letting me know how they would like to proceed. I have given him information to review regarding these options. He was inagreement with this plan and expressed understanding. All of his questions were answered at length.I spent approximately 45 minutes in counseling and coordination of care for this visit. I will keep you updated as we move forward. Thank you very much for this kind referral. Please do not hesitate to contact me if you have any questions. documented in this encounter Plan of Treatment Upcoming Encounters Date Type Department Care Team (Late st Contact Info) Description 08/18/2024 10:30 AM EST Office [place] [address] Rodrigo Conteh MD [facility] [place] [address] Scheduled Referrals Name Type Priority Associated Diagnoses Orde r Schedule Referral to Urology Outpatient Referral Routine Erectile dysfunction of nonorganic origin Ordered: 11/15/2021 documented as of this encounter Visit Diagnoses Diagnosis Erectile dysfunction, unspecified erectile dysfunction type Type 2 diabetes mellitus with hyperglycemia, with long-term current use of insulin Vitamin D insufficiency Unspecified vitamin D deficiency Dyslipidemia Other and unspecified hyperlipidemia documented in this encounter Care Teams Public Health Technologist Relationship Specialty Start Date End Date Sravani Salas APRN [address] [place] [address] PCP - General Family Medicine 01/15/17 documented as of this encounter
--- OUTSIDE RECORDS SUMMARY | 2024-08-14 01:21 | XMS_ITS | Encounter Summary ---
Author Organization [facility] [place] [address] Care Team Providers Care Clinical Research Tech Name Role Phone Josue Sravani Rosen CADY Primary Care Provider [phone] [phone] Encounter Details Date Type Department Care Team (Late st Contact Info) Description 04/03/2021 Telephone [place] [address] Raina López Social History Tobacco Use Types Packs/Day Years [...] encounter Miscellaneous Notes * Telephone Encounter - Raina López - 04/03/2021 9:37 AM EDT Left message for patient to call back [phone] to schedule 3 Month FRP follow up. documented in this encounter Plan of Treatment Upcoming Encounters Date Type Department Care Team (Late st Contact Info) Description 08/18/2024 10:30 AM EST Office [place] [address] Rodrigo Conteh MD [facility] [address] [place] [id number] documented as of this encounter Visit Diagnoses Not on filedocumented in this encounter Care Teams Clinical Research Tech Relationship Specialty Start Date End Date Sravani Salas APRN [address] [place] [address] PCP - General Family Medicine 01/15/17 documented as of this encounter
--- OUTSIDE RECORDS SUMMARY | 2024-08-14 01:21 | XMS_ITS | Encounter Summary ---
Author Organization [place] [address] Care Team Providers Care Dynamic Balancer Set Up Worker Name Role Phone Sravani Salas APRN Primary Care Provider [phone] [phone] Encounter Details Date Type Department Care Team (Late st Contact Info) Description 01/12/2021 8:00 AM EDT Office Visit Functional Yarsanism Program at [facility] [address] [place] [address] Isiah Taylor, PT Ulnar neuropathy of right [...] as of this encounter Progress Notes * Isiah Taylor, PT - 01/12/2021 8:00 AM EDT FRP Physical Therapy Note FRP Day 18 Protocol Subjective: Isiah returns today for a scheduled follow up appointment with FRP and reports current functional tolerances as listed below. Objective: PT Objective Measures Endurance and Flexibility Test Results: Reported Tolerance (minutes) First Day of FRP: End of FRP: 1 Month Follow-up: 3 Month Follow-up (optional): Sittin 120 Standin 240 Walkin 60 Flexibility (degrees): Neck: First Day of FRP: End of FRP: 1 Month Follow-up: 3 Month Follow-up (optional): Bending Forward: 55 65 Bending Back: 45 50 Turning Right: 60 70 Turning Left: 60 70 Tilting Right: 25 40 Tilting Left: 35 40 Low Back: First Day of FRP: End of FRP: 1 Month Follow-up: 3 Month Follow-up (optional): Bending Forward: 75 85 Bending Back: 25 30 Straight Leg Raise Right: 80 85 Straight Leg Raise Left: 80 90 Straight Leg Raise Pelvic: 5 10 Treadmill First Day of FRP: End of FRP: 1 Month Follow-up: 3 Month Follow-up (optional): MET Level: Heart Rate: MET Level: Heart Rate: MET Level: Heart Rate: MET Level: Heart Rate: Treadmill Endurance: 7 126 7 120 Reason for Stopping (if applicable): Shortness of Breath balance concerns Treatment Received: Refer to [facility] protocol for explanation of program/physical therapy details. 1. Therapeutic and Functional Exercise: See [facility] flow sheets for progression. Strengthening and conditioning designed per [facility] protocol was: (x) Completed ( ) Not completed 2. Home Exercise Program: Reviewed and modified current home exercise program. The HEP was: (x) Unchanged ( ) Modified 3. Neurological Assessment: (x) No change in status ( ) Change in status 4. Stretching Training Sessions: (x) Completed ( ) Not completed Evaluation of progress during FRP and discharge planning: Participation level was consistent and high. Self-care exercise program a. Relapse prevention: Walking, stretching, relaxation techniques. b. Increasing physical capacities: Home exercise program. [facility] HOME EXERCISE PROGRAM ? Specific types Frequency 1 Week Status 1 Month Status Aerobic / Endurance ? 15-20 minute walk ?? In winter: Snowshoeing ?? On bad weather days: Morning warmup daily ? Stretching ? Stretches in binder, special attention to LIGHT BLUE starred stretches 1-2x per day ? Strength training ? Band resistance program in binder ?? Crate lifting program 3x per week ? Relaxation strategies ? Breathing focus daily Helpful /10 ?? Helpful /10 ?? Flare-up Plan: 1. Stay consistent with self-care program 2. Use pacing 3. Use mindfulness 4. When it gets cranky - don???t panic! 5. Go for a walk to get your mind off it As-needed ? Assessment: Isiah has progressed as planned; he has good understanding of his home exercise program. Plan: Continue per FRP protocol. Length of visit: Participated in program physical activity from 8:00 a.m. through 2:30 p.m. today. During that time, 15 minutes were spent to re-test physical performance measures and 30 were spent to treat and further develop individual self-care exercise guidelines. Care was provided by Isiah Taylor PT and Josefina Jung RIGGER APPRENTICE. documented in this encounter Plan of Treatment Upcoming Encounters Date Type Department Care Team (Late st Contact Info) Description 08/18/2024 10:30 AM EST Office [place] [address] Rodrigo Conteh MD [facility] [place] [address] documented as of this encounter Visit Diagnoses Diagnosis Ulnar neuropathy of right upper extremity Lesion of ulnar nerve Pain of right upper extremity Type 2 diabetes mellitus with hyperglycemia, with long-term current use of insulin Vitamin D insufficiency Unspecified vitamin D deficiency Dyslipidemia Other and unspecified hyperlipidemia documented in this encounter Care Teams Dynamic Balancer Set Up Worker Relationship Specialty Start Date End Date Sravani Salas APRN [address] [place] [address] PCP - General Family Medicine 01/15/17 documented as of this encounter
--- OUTSIDE RECORDS SUMMARY | 2024-08-14 01:21 | XMS_ITS | Encounter Summary ---
[place] [address] Care Team Providers Care Supervisor Display Fabrication Name Role Phone Sravani Salas APRN Primary Care Provider [phone] [phone] Encounter Details Date Type Department Care Team (Late st Contact Info) Description 07/13/2021 Telephone [place] [address] Cecelia Coyle RN Social History Tobacco Use Types Packs/Day [...] encounter Miscellaneous Notes * Telephone Encounter - Cecelia Coyle RN - 07/13/2021 2:02 PM EST Called to confirm last office visit notes state patient is to take MetforminER 500mg BID. * Telephone Encounter - Cecelia Coyle RN - 07/13/2021 1:56 PM EST Calling to verify proper dose of metformin against med list received by PCP office. Will return call. documented in this encounter Plan of Treatment Upcoming Encounters Date Type Department Care Team (Late st Contact Info) Description 08/18/2024 10:30 AM EST Office [place] [address] Rodrigo Conteh MD [facility] [place] [address] documented as of this encounter Visit Diagnoses Not on filedocumented in this encounter Care Teams Supervisor Display Fabrication Relationship Specialty Start Date End Date Sravani Salas APRN [address] [place] [address] PCP - General Family Medicine 01/15/17 documented as of this encounter
--- OUTSIDE RECORDS SUMMARY | 2024-08-14 01:21 | XMS_ITS | Encounter Summary ---
Author Organization [facility] [place] [address] [place] [address] Care Team Providers Care Coloring Room Man Name Role Phone Sravani Salas APRN Primary Care Provider [phone] [phone] Encounter Details Date Type Department Care Team (Late st Contact Info) Description 12/30/2020 9:30 AM EDT Office Visit Functional Sabianism Program at [facility] [address] [place] [address] Sandra Hatch APRN [facility] [address] Ulnar neuropathy of right upper extremity Social [...] Notes * Sandra Hatch APRN - 12/30/2020 9:30 AM EDT Chief complaint requiring rehabilitation: Ulnar neuropathy SUBJECTIVE: Isiah is here for follow up regarding Problems identified in the day 1 visit. We identified the following barriers to obtaining His functional goals: #1 Sleep problems: tries to read before bed, in bed , no TV, goes to bed at at 9:30 , gets up at 5.Discussed sleep hygiene, 4-7-8 breathing technique. ?? #2 Anxiety, seeing counselor regularly. He will call his counselor today. Personal Function 3 Month Goals ?? Vocational:?Unclear.?? Recreational:?Be able to manage a firearm to go turkey hunting, carry a 25 pound turkey. Be ableto go 4-wheeling, including tolerating the bumpy terrain, be able to walk for an hour without a break Daily Living:??be able to sleep for 6-7 hours/night, be able to mow the lawn, be able to maintain his vehicle; be able operate a chain saw to cut firewood, splint and stack;??be able to help his elderly parents get off the floor if they were to fall.?? . Progress has been steady. He is already lifting 40 pounds ( 50 pound goal). He missed yesterday secondary to fever after Moderna vaccination. He is having difficulty sleeping due to arm pain. OBJECTIVE: Exam is deferred today. ASSESSMENT: this was a tele_health visit which the patient consented to. Isiah is making good progress towards his goals. I will order him a topical compounded pain cream to use at night for neuropathic pain through worker's compensation. PLAN; Continued functional uatsdin for chief complaint of arm pain Sandra Hatch, MS, FINAL CIGAR AND BOX EXAMINER-BC, DIGITAL CONTROLS TECHNICAL OFFICER Nurse practitioner Pain management [facility] documented in this encounter Plan of Treatment Upcoming Encounters Date Type Department Care Team (Late st Contact Info) Description 08/18/2024 10:30 AM EST Office [place] [address] Rodrigo Conteh MD [facility] [place] [address] documented as of this encounter Visit Diagnoses Diagnosis Ulnar neuropathy of right upper extremity Lesion of ulnar nerve Type 2 diabetes mellitus with hyperglycemia, with long-term current use of insulin Vitamin D insufficiency Unspecified vitamin D deficiency Dyslipidemia Other and unspecified hyperlipidemia documented in this encounter Care Teams Coloring Room Man Relationship Specialty Start Date End Date Sravani Salas APRN [address] [place] [address] PCP - General Family Medicine 01/15/17 documented as of this encounter
--- OUTSIDE RECORDS SUMMARY | 2024-08-14 01:21 | XMS_ITS | Encounter Summary ---
Author Organization [facility] [place] [address] Care Team Providers Care Buggy Operator Name Role Phone Sravani Salas APRN Primary Care Provider [phone] [phone] Encounter Details Date Type Department Care Team (Late st Contact Info) Description 01/10/2021 11:00 AM EDT Office Visit Functional Cheondoism Program at [facility] [address] [place] [address] Asia Hernandez PsyD [facility] [place] [address] Chronic pain syndrome Social History Tobacco Use [...] Progress Notes * Asia Hernandez PsyD - 01/10/2021 11:00 AM EDT [facility] Active Pain Care, a Service of the [facility] Functional Cheondoism Program / Living Well with Pain Education Series Name: Isiah Ramirezose Date: 01/10/21 Topic: Don't Let Pain Ruin Your Relationships Via: In person 60 minute Health and Behavior Intervention Group focused on Pain Neuroscience Education and Pain Psychology. Today's education focused on reviewing the impact of chronic pain on patients' relationships and discussing skills, behaviors, cognitions, and attitudes that can help participants better engage with their family and friends. Patients were provided empathy and validation about the isolatingquality of chronic pain, and educated about the reasons why friends and family may seem insensitive, or may alternately be overly solicitous of pain behaviors. Patients were provided some basic instruction on the importance of communications skills; they were also introduced to the behaviors/qualities that contribute relationships problems, specifically criticism, defensiveness, stonewalling, andcontempt (e.g., Gottman's 4 Horsemen). The group was encouraged to ask questions throughout and were provided handouts of the topic covered, including a Gotlynnan relationship skills handout for familymembers. Isiah was quiet but respectful during this discussion; he did not participate or have questions. Diagnosis: Chronic pain documented in this encounter Plan of Treatment Upcoming Encounters Date Type Department Care Team (Late st Contact Info) Description 08/18/2024 10:30 AM EST Office Visit [place] [address] Rodrigo Conteh MD [facility] [place] [address] documented as of this encounter Visit Diagnoses Diagnosis Chronic pain syndrome Type 2 diabetes mellitus with hyperglycemia, with long-term current use of insulin Vitamin D insufficiency Unspecified vitamin D deficiency Dyslipidemia Other and unspecified hyperlipidemia documented in this encounter Care Teams Buggy Operator Relationship Specialty Start Date End Date Sravani Salas APRN [address] [place] [address] PCP - General Family Medicine 01/15/17 documented as of this encounter
--- OUTSIDE RECORDS SUMMARY | 2024-08-14 01:21 | XMS_ITS | Encounter Summary ---
Author Organization [facility] [place] [address] Care Team Providers Care Packer Operator Automatic Name Role Phone Sravani Salas APRN Primary Care Provider [phone] [phone] Encounter Details Date Type Department Care Team (Late st Contact Info) Description 12/30/2020 8:00 AM EDT Office Visit Functional Adventist Program at [facility] [address] [place] [address] Isiah Taylor, PT Chronic pain syndrome Social History Tobacco Use [...] - Therapy - Isiah Taylor, PT - 12/30/2020 8:00 AM EDT FRP Physical Therapy Note FRP Day 9 Protocol Subjective: Isiah returns today for a scheduled follow up appointment with [facility]; he reports had to miss yesterday due to feeling wiped out from COVID vaccine. Doing a little better today but still feeling tired. No fever. Objective: Treatment Received: Refer to FRP protocol for explanation of program/physical therapy details. 1. Therapeutic and Functional Exercise: See FRP flow sheets for progression. Strengthening and conditioning designed according to personal functional recovery goals and P protocol was: (x) Completed ( ) Not [...] progressing as planned with quota based training. Continued step warm ups this morning, progressing physioball exercises to also include prone components for upper and lower extremity strengthening. Plan: Return for follow up with FRP [...] 10:30 AM EST Office [place] [address] Rodrigo Conteh MD [facility] [place] [address] documented as of this encounter Visit Diagnoses Diagnosis Chronic pain syndrome Type 2 diabetes mellitus with hyperglycemia, with long-term current use of insulin Vitamin D insufficiency Unspecified vitamin D deficiency Dyslipidemia Other and unspecified hyperlipidemia documented in this encounter Care Teams Packer Operator Automatic Relationship Specialty Start Date End Date Sravani Salas APRN [address] [place] [address] PCP - General Family Medicine 01/15/17 documented as of this encounter
--- OUTSIDE RECORDS SUMMARY | 2024-08-14 01:21 | XMS_ITS | Encounter Summary ---
Author Organization [facility] [place] [address] Care Team Providers Care Granite Fabricator Name Role Phone Sravani Salas APRN Primary Care Provider [phone] [phone] Reason for Visit * Reason Comments Right Arm Pain Encounter Details Date Type Department Care Team (Late st Contact Info) Description 12/27/2020 8:00 AM EDT Office Visit Functional Yazidi Program at [facility] [address] [place] [address] Briana Crane, OT Pain of right upper [...] - Therapy - Briana Crane OT - 12/27/2020 8:00 AM EDT [facility] Occupational Therapy Note [facility] Day 6 Protocol Subjective: Mr. Medrano returns today for a scheduled follow up appointment with [facility]. He reports that he is able to make it through the daily exercises but still pays for it later. Objective: Refer to [facility] protocol for details and explanation of each activity. Mr. Medrano participated in the following activities: Functional Therapy: 1. AM Session of functional conditioning ( X ) Completed ( ) Not Completed 2. PM Session of functional conditioning ( X ) Completed ( ) Not Completed Instructed in 15 minutes of mindfulness meditation activity focusing on body scan. Participated in a 25 minute outdoor walk, and 20 minutes of unguarded card game activity involving stooping. Individualized Treatment: Increased resistance levels of functional conditioning exercises according to personal recovery goals. Discussed the benefit of working through flare-up days to manage symptoms over time and continue progress towards functional goals. Also discussed specific functional conditioning exercises that we will focus on that are most beneficial for promoting nerve gliding in his right ulnar nerve. Please see goals in initial OT evaluation [...] provided by both an Occupational Therapist and C 40A Crew Chief, TYRON Gibson. documented in this encounter Plan of Treatment Upcoming Encounters Date Type Department Care Team (Late st Contact Info) Description 08/18/2024 10:30 AM EST Office [place] [address] Rodrigo Conteh MD [facility] [place] [address] documented as of this encounter Visit Diagnoses Diagnosis Pain of right upper extremity Type 2 diabetes mellitus with hyperglycemia, with long-term current use of insulin Vitamin D insufficiency Unspecified vitamin D deficiency Dyslipidemia Other and unspecified hyperlipidemia documented in this encounter Care Teams Granite Fabricator Relationship Specialty Start Date End Date Sravani Salas APRN [address] [place] [address] PCP - General Family Medicine 01/15/17 documented as of this encounter
--- OUTSIDE RECORDS SUMMARY | 2024-08-14 01:21 | XMS_ITS | Encounter Summary ---
Author Organization [facility] [place] [address] Care Team Providers Care Outside Plant Engineer Name Role Phone Sravani Salas APRN Primary Care Provider [phone] [phone] Encounter Details Date Type Department Care Team (Late st Contact Info) Description 01/11/2021 11:00 AM EDT Office Visit Functional Anabaptist Program at [facility] [address] [place] [address] Asia Hernandez PsyD [facility] [address] Chronic pain syndrome Social History Tobacco Use [...] Progress Notes * Asia Hernandez PsyD - 01/11/2021 11:[address] [facility] Active Pain Care, a Service of the [facility] Living With Pain Education Series / Functional Anabaptist Program Name: Isiah Medrano Date: 01/11/2021 Topic: Conclusion of LWP Education, Relapse Prevention, & Flare Up Planning 60 minute Health and Behavior Intervention Group focused on Pain Neuroscience Education and Pain Self Management, presented along with Josefina Jung PTA/KAREN. Today's topic focused on positivelyreinforcing participants for their completion of the Living with Pain Education Series or Functional Anabaptist Program. We review the topics and main points of each education session, reinforcing participants' understanding of the multifactorial nature of their pain and the importance of multimodal approaches to help retrain the nervous system and create an active pain self management program. Participants shared and reflected on the aspects of this treatment that was different from previoustreatments and what they found most helpful. FRP participants considered their plans for aftercare and potential barriers to continued engagement in learned skills. LWP participants also discussed possible next steps for care in the Active Pain Care service that may be appropriate for them. Participants shared their specific plans for continued practice of skills; they were encouraged to stay in touch with each other and the program. Isiah was quiet and respectful, but did not participate in this discussion.. Diagnosis: Chronic pain documented in this encounter Plan of Treatment Upcoming Encounters Date Type Department Care Team (Late st Contact Info) Description 08/18/2024 10:30 AM EST Office [place] [address] Rodrigo Conteh MD [facility] [place] [address] documented as of this encounter Visit Diagnoses Diagnosis Chronic pain syndrome Type 2 diabetes mellitus with hyperglycemia, with long-term current use of insulin Vitamin D insufficiency Unspecified vitamin D deficiency Dyslipidemia Other and unspecified hyperlipidemia documented in this encounter Care Teams Outside Plant Engineer Relationship Specialty Start Date End Date Sravani Salas APRN [address] [place] [address] PCP - General Family Medicine 01/15/17 documented as of this encounter
--- OUTSIDE RECORDS SUMMARY | 2024-08-14 01:21 | XMS_ITS | Encounter Summary ---
Author Organization [facility] [place] [address] Care Team Providers Care Glass Frame Fitter Name Role Phone Sravani Salas APRN Primary Care Provider [phone] [phone] Reason for Visit * Reason Comments Arm Pain R elbow Encounter Details Date Type Department Care Team (Late st Contact Info) Description 01/06/2021 8:00 AM EDT Office Visit Functional Sikhism Program at [facility] [address] [place] [address] Josefina Jung, REDYE HAND Pain of right upper extremity; Ulnar neuropathy [...] * Treatment - Therapy - Josefina Jung, REDYE HAND - 01/06/2021 8:00 AM EDT P Physical Therapy Note [facility] Day 14 Protocol Subjective: Isiah returns today for a scheduled follow up appointment with [facility]; he reports feeling comfortable with his band exercises. Objective: Treatment Received: Refer to [facility] protocol for explanation of program/physical therapy details. 1. Therapeutic and Functional Exercise: See FRP flow sheets for progression. Strengthening and conditioning designed according to personal functional recovery goals and [facility] protocol was: (x) Completed ( ) [...] care program. He is performing exercises with Supervision with Verbal and Tactile Cues. 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
--- OUTSIDE RECORDS SUMMARY | 2024-08-14 01:21 | XMS_ITS | Encounter Summary ---
[place] [address] Care Team Providers Care Lye Machine Operator Name Role Phone Sravani Salas CADY Primary Care Provider [phone] [phone] Encounter Details Date Type Department Care Team (Late st Contact Info) Description 2022 [place] [address] Angela Villalobos RN Social History [...] Telephone Encounter - Angela Villalobos RN - 2022 11:43 AM EDT Pt called nurse line and left message. Pt having issues with his alexa sensor staying on. He is almost out of sensors and needs more due to them falling off. Nurse called pt back and left voice mail for him to return call. documented in this encounter Plan of Treatment Upcoming Encounters Date Type Department Care Team (Late st Contact Info) Description 08/18/2024 10:30 AM EST Office [place] [address] Rodrigo Conteh MD [facility] [address] documented as of this encounter Visit Diagnoses Not on filedocumented in this encounter Care Teams Lye Machine Operator Relationship Specialty Start Date End Date Sravani Salas APRN [address] [place] [address] PCP - General Family Medicine 01/15/17 documented as of this encounter
--- OUTSIDE RECORDS SUMMARY | 2024-08-14 01:21 | XMS_ITS | Encounter Summary ---
Author Organization [facility] [place] [address] Care Team Providers Care Impregnator Carbon Products Name Role Phone Sravani Salas APRN Primary Care Provider [phone] [phone] Reason for Visit * Reason Comments Right Arm Pain Encounter Details Date Type Department Care Team (Late st Contact Info) Description 01/02/2021 10:30 AM EDT Office Visit Functional Gnosticism Program at [facility] [address] [place] [address] Briana Crane, SHAYLEE Ulnar neuropathy of right upper extremity Social [...] - Therapy - Briana Crane OT - 01/02/2021 10:30 AM EDT [facility] Occupational Therapy Note [facility] Day 10 Protocol Subjective: Mr. Medrano returns today for a scheduled follow up appointment with [facility]. He reports that he has difficulty fitting in the weekend home program due to having a lot to catch up on helping his parents after being gone for the week. Objective: Refer to [facility] protocol for details and explanation of each activity. Mr. Medrano participated in the following activities: Functional Therapy: 1. AM Session of functional conditioning ( ) Completed ( X ) Not Completed 2. PM Session of functional conditioning ( X ) Completed ( ) Not Completed Instructed in 20 minutes of mindfulness meditation activity focusing on Thoughts and Emotions. Participated in a 10 minute treadmill walk including 2% incline and speed range from 2.5-2.9 mph, and 10minutes of unguarded beach ball volleyball activity. Individualized Treatment: Increased resistance levels of functional conditioning exercises according to personal recovery goals. He demonstrated increased back muscle strength by using straight-leg lifting technique for functional conditioning exercises. He also demonstrated improvement in lifting form in terms of safety and efficiency. Weekend Home Program: Reviewed Mr. Medrano's participation in assigned home exercise program over the past weekend. He reports he was not able to fully complete his home program due to needing to complete a backlog of chores for his parents that he can't do during the week while participating in FRP: Walking 20 minutes: not completed Stretching twice a day: completed Functional lifting: not completed Mindfulness meditation: completed Please see goals [...] Mr. Medrano participated in program activities from 11:00 a.m. through 2:30 p.m. today. A total of 15 minutes was spent during that time to establish and implement individualized occupational therapy strategies. Care was provided by both an Occupational Therapist and Flap Maker, TYRON [place]. 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
--- OUTSIDE RECORDS SUMMARY | 2024-08-14 01:21 | XMS_ITS | Encounter Summary ---
Author Organization [facility] [place] [address] Care Team Providers Care Garage Door Hanger Name Role Phone Sravani Salas APRN Primary Care Provider [phone] [phone] Reason for Visit * Reason Comments Right Arm Pain Encounter Details Date Type Department Care Team (Late st Contact Info) Description 12/28/2020 8:00 AM EDT Office Visit Functional Holiness Program at [facility] [address] [place] [address] Briana Crane, OT Pain of right upper [...] Progress Notes * Briana Crane OT - 12/28/2020 8:00 AM EDT P Occupational Therapy Note [facility] Day 7 Protocol Subjective: Mr. Medrano returns today for a scheduled follow up appointment with [facility]. He reports that his elbow pain maybe feels a little worse after a day of exercises, but not as bad as he expected.He also reports that he needs to leave at 10:30 today to keep his appointment for his second COVID vaccine. Objective: Refer to [facility] protocol for details and explanation of each activity. Mr. Medrano participated in the following activities: ??? AM Functional Conditioning - functional lifting ??? Lifting re-evaluation Functional Strength Testing: Day 1 Day 7 Repetitive Floor to Waist (PILE) 20 40 Repetitive Waist to Shoulder (PILE) 10 20 Individualized Treatment: Increased resistance levels of functional conditioning exercises according to personal recovery goals. Completed midway functional strength testing. Used graphs as a visual aide to discuss daily progression of conditioning exercises toward 3 week strength training goals. Will continue to use graphs to map daily progress toward these goals. Mr. Medrano participated actively in progression of function. Assessment: Mr. Medrano is progressing according to FRP protocol and his functional goals as noted in initial OT evaluation report on Day 1. Objective testing today confirms he has made substantial gains thus far in terms of his physical capacities. Plan: Return for follow up with [facility] per protocol. Length of Treatment: Mr. Medrano participated in program activities from 8:00 a.m. through 10:30 p.m. today. A total of 15 minutes were spent during that time to implement individualized occupational therapy strategies. Care was provided by the Occupational Therapist today. documented in this encounter Plan of Treatment Upcoming Encounters Date Type Department Care Team (Late st Contact Info) Description 08/18/2024 10:30 AM EST Office [place] [address] Rodrigo Conteh MD [facility] [address] documented as of this encounter Visit Diagnoses Diagnosis Pain of right upper extremity Type 2 diabetes mellitus with hyperglycemia, with long-term current use of insulin Vitamin D insufficiency Unspecified vitamin D deficiency Dyslipidemia Other and unspecified hyperlipidemia documented in this encounter Care Teams Garage Door Hanger Relationship Specialty Start Date End Date Sravani Salas APRN [address] [place] [address] PCP - General Family Medicine 01/15/17 documented as of this encounter
--- OUTSIDE RECORDS SUMMARY | 2024-08-14 01:21 | XMS_ITS | Encounter Summary ---
Author Organization [facility] [place] [address] [place] [address] Care Team Providers Care Leather Sorter Name Role Phone Sravani Salas APRN Primary Care Provider [phone] [phone] Reason for Visit * Reason Comments Pain Management office visit [facility]P f/u Encounter Details Date Type Department Care Team (Late st Contact Info) Description 02/20/2021 3:00 PM EDT Office Visit [place] [address] Sandra [place] APRN [facility] [place] [address] Pain of right upper extremity Social History [...] Sign Reading Time Taken Comments Blood Pressure 125/73 02/20/2021 3:04 PM EDT Pulse 78 02/20/2021 3:04 PM EDT Temperature - - Respiratory Rate - - Oxygen Saturation 98% 02/20/2021 3:04 PM EDT Inhaled Oxygen Concentration - - Weight 95.3 kg (210 lb) 02/20/2021 3:04 PM EDT Height - - Body Mass Index 33.89 08/12/2020 1:54 PM EST documented in this encounter Progress Notes * Sandra [place] APRN - 02/20/2021 3:00 PM EDT Chief Complaint: Neuropathic pain in the elbow SUBJECTIVE: Isiah Medrano is here for 1 month follow up to completion of the Functional Restorationprogram. In general, things have gone well. He is maintained all of his tolerances and the majorityof his capacities. His met level is actually gone up to levels with his heart rate remaining stable. He continues to have problems with his neuropathic pain but unfortunately he was unable to get thecompounded pain cream I recommended because the Worker's Compensation company denied it.. OBJECTIVE; Functional goals and progress Towards those goals is: ASSESSMENT: Chief complaint requiring rehabilitation: Neuropathic arm pain PLAN; Next follow up will be in 2 months with myself and Briana arguments. In addition I am sending a prescription for the neuropathic pain cream to the injured worker's pharmacy. We will review his response to this at our follow-up in 2 months. Out of 25 minutes was spent in face to face consultationof present symptoms and future plan of care. Sandra [place], , NATURAL REMEDY CONSULTANT-BC, DIRECTOR COMMERCIAL SALES Nurse practitioner Pain management [facility] documented in this encounter Plan of Treatment Upcoming Encounters Date Type Department Care Team (Late st Contact Info) Description 08/18/2024 10:30 AM EST Office [place] [address] Rodrigo Conteh MD [facility] [place] [address] documented as of this encounter Visit Diagnoses Diagnosis Pain of right upper extremity Type 2 diabetes mellitus with hyperglycemia, with long-term current use of insulin Vitamin D insufficiency Unspecified vitamin D deficiency Dyslipidemia Other and unspecified hyperlipidemia documented in this encounter Care Teams Leather Sorter Relationship Specialty Start Date End Date Sravani Salas APRN [address] [place] [address] PCP - General Family Medicine 01/15/17 documented as of this encounter
--- OUTSIDE RECORDS SUMMARY | 2024-08-14 01:21 | XMS_ITS | Encounter Summary ---
Author Organization [facility] [place] [address] Care Team Providers Care Director Transition Name Role Phone Sravani Salas APRN Primary Care Provider [phone] [phone] Encounter Details Date Type Department Care Team (Late st Contact Info) Description 01/04/2021 8:00 AM EDT Office Visit Functional Sabianist Program at [facility] [address] [place] [address] Isiah Taylor, PT Pain of right upper [...] Progress Notes * Isiah Taylor, PT - 01/04/2021 8:00 AM EDT FRP Physical Therapy Note P Day 12 Protocol Subjective: Isiah returns today for a scheduled follow up appointment with [facility]; he reports really feeling like he is getting stronger. Objective: Treatment Received: Refer to P protocol for explanation of program/physical therapy details. [...] 10:30 AM EST Office [place] [address] Rodrigo Conteh MD 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
--- OUTSIDE RECORDS SUMMARY | 2024-08-14 01:21 | XMS_ITS | Encounter Summary ---
Author Organization [facility] [place] [address] Care Team Providers Care Adjuster Leader Name Role Phone Sravani Salas APRN Primary Care Provider [phone] [phone] Reason for Visit * Reason Comments Right Arm Pain elbow Encounter Details Date Type Department Care Team (Late st Contact Info) Description 01/23/2021 3:00 PM EDT Office Visit Functional Orthodoxy Program at [facility] [address] [place] [address] Josefina Jung, TILE DITCHER Pain of right upper extremity Social History [...] * Treatment - Therapy - Josefina Jung, TILE DITCHER - 01/23/2021 3:00 PM EDT FRP Follow-up Gym Visit Subjective: Isiah reports he's had no particular issues with his self care program, although he hasn't figured out a good place to do waist to shoulder lifting yet. Objective: Treatment Received: gym Date End of Program 1 Week Status Treadmill 2.4 mph x 7% incline x 15' 2.4 mph x 7% incline x 15' Stretching FIS, EIS FIS, EIS Ydyty-lo-xyxsr str leg lift (x20) 30# 30# Xhayf-zx-jkbxrpip lift (x20) 20# 20# Squat lift (x5) 50# 50# Patient Education/Home Exercise Program: Reviewed Isiah's home exercise program and reviewed the importance of establishing consistent routine early, which he has done. No barriers to home program identified at this time. FRP HOME EXERCISE PROGRAM ? Specific types Frequency 1 Week Status 1 Month Status Aerobic / Endurance ? 15-20 minute walk ?? In winter: Snowshoeing ?? On bad weather days: Morning warmup daily ??Walks daily 30 minute ? Stretching ? Stretches in binder, special attention to LIGHT BLUE starred stretches 1-2x per day ??Daily - enjoys them, feels much better and loosened up. ? Strength training ? Band resistance program in binder ?? Crate lifting program 3x per week ??Compliant ?? Relaxation strategies ? Breathing focus daily Helpful Does daily after his walk.?? Helpful /10 ?? Flare-up Plan: 1. Stay consistent with self-care program 2. Use pacing 3. Use mindfulness 4. When it gets cranky -??don???t panic! 5. Go for a walk to get your mind off it As-needed ? Assessment: Isiah has maintained gains made in the FRP and demonstrates good understanding of his home exercise program as well as the importance of continuing stretching, strengthening, mindfulness practice and cardiovascular exercise to maintain/increase functional capacities. Goals: Maintain/increase functional capacities. Plan: Isiah will meet with WHITNEY Kruger, for the FRP follow-up in approximately one month. Isiahwas encouraged to call with any questions or concerns regarding today's visit or the home exercise program. Length of visit: A total of 30 minutes was spent educating and treating Isiah and reviewing his homeexercise program. documented in this encounter Plan of Treatment Upcoming Encounters Date Type Department Care Team (Late st Contact Info) Description 08/18/2024 10:30 AM EST Office [place] [address] Rodrigo Conteh MD [facility] [place] [address] documented as of this encounter Visit Diagnoses Diagnosis Pain of right upper extremity Type 2 diabetes mellitus with hyperglycemia, with long-term current use of insulin Vitamin D insufficiency Unspecified vitamin D deficiency Dyslipidemia Other and unspecified hyperlipidemia documented in this encounter Care Teams Adjuster Leader Relationship Specialty Start Date End Date Sravani Slaas APRN [address] [place] [address] PCP - General Family Medicine 01/15/17 documented as of this encounter
--- OUTSIDE RECORDS SUMMARY | 2024-08-14 01:21 | XMS_ITS | Encounter Summary ---
Author Organization [facility] [place] [address] Care Team Providers Care Tool Filer Hand Name Role Phone Sravani Salas APRN Primary Care Provider [phone] [phone] Encounter Details Date Type Department Care Team (Late st Contact Info) Description 12/27/2020 8:00 AM EDT Office Visit Functional Hinduism Program at [facility] [address] [place] [address] Isiah Taylor, PT Chronic pain syndrome Social [...] - Therapy - Isiah Taylor, PT - 12/27/2020 8:00 AM EDT P Physical Therapy Note P Day 6 Protocol Subjective: Isiah returns today for a scheduled follow up appointment with [facility]; he reports finds some of the exercises getting easier. Objective: Treatment Received: Refer to P protocol [...] progressing as planned with quota based training. Initiated step warm-ups alongwith seated, standing, and supine exercise ball components. Plan: Return for follow up with FRP [...] 10:30 AM EST Office [place] [address] Rodrigo Conteh MD [facility] [place] [address] documented as of this encounter Visit Diagnoses Diagnosis Chronic pain syndrome Type 2 diabetes mellitus with hyperglycemia, with long-term current use of insulin Vitamin D insufficiency Unspecified vitamin D deficiency Dyslipidemia Other and unspecified hyperlipidemia documented in this encounter Care Teams Tool Filer Hand Relationship Specialty Start Date End Date Sravani Salas APRN [address] [place] [address] PCP - General Family Medicine 01/15/17 documented as of this encounter
--- OUTSIDE RECORDS SUMMARY | 2024-08-14 01:21 | XMS_ITS | Encounter Summary ---
Author Organization [facility] [place] [address] Care Team Providers Care Book Cutter Name Role Phone Josue Sravani H CADY Primary Care Provider [phone] Encounter Details Date Type Department Care Team (Late st Contact Info) Description 01/13/2021 8:30 AM EDT Office Visit Functional Mandaeism Program at [facility] [address] [place] [address] Sandra Hatch APRN [facility] [place] [address] Pain of right upper extremity Social History [...] Progress Notes * Sandra Hatch APRN - 01/13/2021 8:30 AM EDT [facility] Functional Mandaeism Program Discharge Summary Mr. Isiah Medrano [id number] 01/13/2021 Raina Craven, am compiling the information for Sandra Hatch APRN to discuss and review with the patient. Mr. Medrano attended the Functional Mandaeism Program (FRP) from December 20 to January 13, 2021. The FRP combines progressive physical training, pain and disability education, behavioral medici ne and vocational/activity planning geared toward achieving personal functional goals. I met with Mr. Medrano for 25 minutes today to discuss his discharge and progress in the Functional Mandaeism Program as written in this note. We discussed medical progress, imaging, surgical decision making, current pain and functional status, compared that status to personal recovery goals and established the plan of care accordingly as below. Mr. Medrano attended the FR for 17 of 19 days and participationlevel was consistent and high. Use of self care skills includes stretching, strengthening, cardiovascular conditioning, relaxation and pacing skills. The chief complaint requiring rehabilitation was right arm pain burning in nature constant startingin shoulder an moving down arm into 4th and 5th digits. ??Anatomic diagnoses have included ulnar neuropathy s/p work related accident in 2014. ??Prior treatments included PT, ulnar nerve transposition, trial of spinal cord stimulator with no relief,??ulnar nerve stimulator??which made things worse,injections, gabapentin, LDN.?? Most recent imaging has revealed no surgical lesion and surgery has been waived. ?? Additional activity limiting health problems include history of DM Type 2, history of NSTEMI with 2stents place, essential HTN.. ?? Current work status: Out of work, on worker's compensation since 01/10/2015. He works for the [employer] out of [place], [place]. ??He believes he has a job to return to if able. The progress during the [facility] was remarkable for the following outcomes. Results of the Questionnaires You Filled out: [facility] DISCHARGE SUMMARY QUESTIONNAIRE TOTALS 12/20/2020 01/12/2021 INSOMNIA SEVERITY INDEX 24 (Severe insomnia) 19 (Moderately severe insomnia) Total PHQ-9 17 (Moderately Severe Depression) 10 (Moderate Depression) CENTRAL SENZITIZATION INVENTORY 47 (Moderate) 35 (Mild) PDQ Functional Condition 69 42 PDQ Psychosocial Component 50 51 PDQ Total Score 119 (Extreme) 93 (Severe) JEANNETTE-7 13 (Moderate Anxiety) 13 (Moderate Anxiety) FACS SCORING 78 (Extreme) 57 (Severe) Visual Analog Scale (VAS) for Pain Score 6.1 6.73 Pain over the last week rating score 7.58 6.92 PT Objective Measures Endurance and Flexibility Test [...] (if applicable): Shortness of Breath balance concerns OT Objective Measures Physical Capacity Test Results: First Day of FRP: End of FRP: 1 Month Follow-up: 3 Month Follow-up (optional): Pounds: Heart Rate: Pounds: Heart Rate: Pounds: Heart Rate: Pounds: Heart Rate: Lifting: Frequent Floor to Waist: 20 93 60 115 Frequent Waist to Shoulder: 10 89 40 113 Occasional: 30 80 Carry (2 handed, 50 ft): 20 50 Work Demand Level: Light Medium Your Functional Goals: Functional Goals- First Day of FRP: Progress Toward Goals- End of FRP: Progress Toward Goals- 1 Month Follow-up: Progress Toward Goals- 3 Month Follow-up (optional): Vocational: unclear unclear Recreational: be able to walk for an hour without a break; Resume hunting - manage firearm, carry kill, hike in [place]; Be able to ride 4-mahoney over bumpy terrain ; Walking about 30 minutes during FRP; has not tried other things yet Daily Living: be able to sleep for 6-7 hours/night;be able to help his elderly parents get off the floor if they fall; be able operate a chain saw to cut firewood, split and stack wood; be able operate a chain saw to cut firewood, split and stack wood; be able to mow the lawn Still sleeping about 3-4 hours/night; was able to mow part of his lawn; has not tried the other things yet Functional Activity Goal Start of Program: Rom Lumbar Flex (degrees): [place] FW: MET: NOTE: Discharge Plan Self-care exercise program a. Relapse prevention: Walking, stretching, relaxation techniques. b. Increasing physical capacities: Home exercise program. ?? FRP HOME EXERCISE PROGRAM ? Specific types [...] get your mind off it As-needed ? Counseling Vocational planning Job to return to: Unsure Plan to start work at the end of the program: Working with [facility] to find appropriate work within his capacities a) Anticipated work readiness date: 01/16/21 i) with restrictions: as per workers compensation form ?? Follow-up Primary Care: Sravani Salas APRN Medication Management: Sravani Salas APRN Please arrive to all post program appointments wearing gym clothes and sneakers. You will be re-tested at these visits. Post Program Appointment Provider Arrival Time Location 1 Week Follow Up January 23, 2021 Josefina Jung HORSE SHOW JUDGE/DAY HABILITATION SPECIALIST 3:[address] [facility] [address] [facility] 1 Month Follow Up February 20, 2021 Tablet Questionnaire SHAYLEE Kruger APRN 1:30 PM 2:00 PM 3:00 PM [facility] Ware [facility]er [address] [place] [address] *Please note that your tablet questionnaires can be completed through [facility] the day prior to your appointment. Please plan for a 1-year survey follow-up. I, Sandra Hatch, have reviewed the above compiled information and agree with its accuracy. I spentthe the entire 20 minutes with the patient discussing progress, goals and plans as documented in this note. cc: Isiah Medrano [address] [facility] [address] Sravani Salas APRN [address] [place] [address] [facility] [employer] claim# [id number] F: [phone] Bill O???Kartik Vocational Counselor / Ergonomics VRS Disability Management Michel Eddy Chente [email or web address] Dr. Cleveland Torres [facility] documented in this encounter Plan of Treatment Upcoming Encounters Date Type Department Care Team (Late st Contact Info) Description 08/18/2024 10:30 AM EST Office [place] [address] Rodrigo Conteh MD [facility] [place] [address] documented as of this encounter Visit Diagnoses Diagnosis Pain of right upper extremity Type 2 diabetes mellitus with hyperglycemia, with long-term current use of insulin Vitamin D insufficiency Unspecified vitamin D deficiency Dyslipidemia Other and unspecified hyperlipidemia documented in this encounter Care Teams Book Cutter Relationship Specialty Start Date End Date Sravani Salas APRN [address] [place] [address] PCP - General Family Medicine 01/15/17 documented as of this encounter
--- OUTSIDE RECORDS SUMMARY | 2024-08-14 01:21 | XMS_ITS | Encounter Summary ---
Author Organization [facility] [place] [address] Care Team Providers Care Senior Nurse Manager Name Role Phone Sravani Salas APRN Primary Care Provider [phone] Encounter Details Date Type Department Care Team (Late st Contact Info) Description 01/03/2021 11:00 AM EDT Office Visit Functional Evangelical Program at [facility] [address] [place] [address] Asia Hernandez PsyD [facility] [place] [address] Ulnar neuropathy of right upper extremity; Chronic pain syndrome [...] Progress Notes * Asia Hernandez PsyD - 01/03/2021 11:00 AM EDT [facility] Active Pain Care, a Service of the [facility] Functional Evangelical Program / Living Well with Pain Education Series Topic: Things that Make Pain Better: Introduction to Pain Management Skills Name: Isiah Mercado Mitchell Date: 01/03/2021 60 minute Health & Behavior Intervention Group focused on Pain Neuroscience and Pain Psychology. Today's topic focused on the rationale, process, and benefits of interventions that reduce the perception of threat related to chronic pain, particularly in terms of addressing sympathetic nervous system activation, and the impact of prolonged stress on various bodily systems. Today's group focused on the skills that comprise a comprehensive approach to managing pain, and which include exercises, techniques, and recommendations for turning down the 'threat' level within the patients' lives. Participants were introduced to pain and its sequelae as chronic stressors, and educated about fight or flight mechanisms in their body, and the effect that stress has upon their pain and health. Reviewed multiple interventions that directly target these effects including Pain Education, Aerobic/ROM/Strength Exercise, Sleep Hygiene, Working on Emotional Health and Well Being, Performing Valued Activities, and Mindfulness Meditations Isiah was well engaged with this group, and expressed understanding and appreciation of the topic and how it relates to pain and rehabilitation. documented in this encounter Plan of Treatment Upcoming Encounters Date Type Department Care Team (Late st Contact Info) Description 08/18/2024 10:30 AM EST Office [place] [address] Rodrigo Conteh MD [facility] [place] [address] documented as of this encounter Visit Diagnoses Diagnosis Ulnar neuropathy of right upper extremity Lesion of ulnar nerve Chronic pain syndrome Type 2 diabetes mellitus with hyperglycemia, with long-term current use of insulin Vitamin D insufficiency Unspecified vitamin D deficiency Dyslipidemia Other and unspecified hyperlipidemia documented in this encounter Care Teams Senior Nurse Manager Relationship Specialty Start Date End Date Sravani Salas APRN [address] [place] [address] PCP - General Family Medicine 01/15/17 documented as of this encounter
--- OUTSIDE RECORDS SUMMARY | 2024-08-14 01:21 | XMS_ITS | Encounter Summary ---
Author Organization [facility] [place] [address] Care Team Providers Care Ed Special Education Teacher Name Role Phone Sravani Salas APRN Primary Care Provider [phone] Encounter Details Date Type Department Care Team (Late st Contact Info) Description 01/02/2021 11:00 AM EDT Office Visit Functional Adventist [facility] at [facility] [address] [place] [address] Asia Hernandez PsyD [facility] [place] [address] Chronic pain syndrome Social History Tobacco Use [...] Progress Notes * Asia Hernandez PsyD - 01/02/2021 11:00 AM EDT [facility] Active Pain Care, A Service of the [facility] Functional Adventist Program / Living Well with Pain Education Series Topic: Things that make pain worse Patient Name: Isiah Medrano Date: 01/02/2021 60 minute Health and Behavior Intervention Group focused on Pain Neuroscience Education. Today's topic focused on reviewing psychological and behavioral factors that have been shown to worsen pain and disability, particularly catastrophic thinking and fear/avoidance of movement and activity. Participants reviewed the limitations of the biomedical model of pain and the role of gate control theory in contributing to a comprehensive biopsychosocial model of understanding chronic pain. Reviewed typical emotional and behavioral sequelae of chronic pain and the way that these factors can impact modulation and perception of pain. Patients provided information on the ways that 3 S's (smoking, stress, sleep) and 3 A's (anhedonia, anxiety, anger) can all worsen pain. Participants were introduced to the role of catastrophic thinking in response to pain, or the possibility of pain, and the role this plays in emotions, behaviors, and pain sensation. Participants were guided through an ABC Worksheet of their own pain thoughts, emotions, and behaviors to demonstratea model of cognitive restructuring. Participants provided a written handout on types of catastrophic thoughts, coping statements, and an Automatic Negative Thought tracking sheet and encouraged to dosome of this reflection on their own. Also reviewed the Fear/Avoidance model of pain. Participants asked to consider how their thoughts lead to avoidant behaviors in response to pain or the possibility of pain, and consider how these contributed to increase perceptions of disability and increased physical and emotional deconditioning. Reviewed the rationale for graduated movement program to interrupt this cycle of deconditioning and disability. Isiah was quiet but attentive, and did not express his understanding of the content and how it relates to his pain and rehabilitation experience. documented in this encounter Plan of Treatment Upcoming Encounters Date Type Department Care Team (Late st Contact Info) Description 08/18/2024 10:30 AM EST Office [place] [address] Rodrigo Conteh MD [facility] [place] [address] documented as of this encounter Visit Diagnoses Diagnosis Chronic pain syndrome Type 2 diabetes mellitus with hyperglycemia, with long-term current use of insulin Vitamin D insufficiency Unspecified vitamin D deficiency Dyslipidemia Other and unspecified hyperlipidemia documented in this encounter Care Teams Ed Special Education Teacher Relationship Specialty Start Date End Date Sravani Salas APRN [address] [place] [address] PCP - General Family Medicine 01/15/17 documented as of this encounter
--- OUTSIDE RECORDS SUMMARY | 2024-08-14 01:21 | XMS_ITS | Encounter Summary ---
Author Organization [facility] [place] [address] Care Team Providers Care Network Designer Name Role Phone Sravani Salas APRN Primary Care Provider [phone] Encounter Details Date Type Department Care Team (Late st Contact Info) Description 01/10/2021 8:00 AM EDT Office Visit Functional Orthodoxy Program at [facility] [address] [place] [address] Isiah Taylor, PT Ulnar neuropathy of right [...] - Therapy - Isiah Taylor, PT - 01/10/2021 8:00 AM EDT P Physical Therapy Note [facility] Day 16 Protocol Subjective: Isiah returns today for a scheduled follow up appointment with [facility]; he reports he reallylikes the band exercises. Objective: Treatment Received: Refer to [facility] protocol for explanation of program/physical therapy details. 1. Therapeutic and Functional Exercise: See P flow sheets for progression. Strengthening and conditioning designed according to personal functional recovery goals and [facility] protocol was: (x) Completed ( ) [...] 10:30 AM EST Office Visit [place] [address] Rodrigo Conteh MD [facility] [place] [address] documented as of this encounter Visit Diagnoses Diagnosis Ulnar neuropathy of right upper extremity Lesion of ulnar nerve Pain of right upper extremity Type 2 diabetes mellitus with hyperglycemia, with long-term current use of insulin Vitamin D insufficiency Unspecified vitamin D deficiency Dyslipidemia Other and unspecified hyperlipidemia documented in this encounter Care Teams Network Designer Relationship Specialty Start Date End Date Sravani Salas APRN [address] [place] [address] PCP - General Family Medicine 01/15/17 documented as of this encounter
--- OUTSIDE RECORDS SUMMARY | 2024-08-14 01:22 | XMS_ITS | Encounter Summary ---
Author Organization Replaced By [facility] Address [facility] [place] [address] Care Team Providers Care Saw Superintendent Name Role Phone Sravani Salas APRN Primary Care Provider [phone] Reason for Visit * Consultation (Routine) - Closed Specialty Diagnoses / Procedures Referred By Nii hoffman Referred To Contact Orthopaedics Diagnoses Ulnar neuropathy of right upper extremity GAP Cleveland Torres MD [facility] [place] [address] [facility] [address] [place] [address] Referral ID Status Reason Start Date Expiration Date V isits Requested Visits Authorized [id number] Closed Consult, Test & Treat 02/22/2020 02/21/2021 1 1 Encounter Details Date Type Department Care Team (Late st Contact Info) Description 03/24/2020 2:00 PM EDT Office Visit Functional Religious Program at [facility] [address] [place] [address] Sharifa [place], OT Pain of right upper extremity; Ulnar neuropathy [...] as of this encounter Miscellaneous Notes * Initial Evaluation - Sharifa [place] OT - 03/24/2020 2:00 PM EDT GOALS AND PHYSICAL CAPACITIES EVALUATION The chief complaint requiring rehabilitation is right arm pain burning in nature constant starting in shoulder an moving down arm into 4th and 5th digits. Anatomic diagnoses have included ulnar neuropathy s/p work related accident in 2015. Prior treatments included PT, ulnar nerve transposition, ulnar nerve stimulator, injections, gabapentin, LDN. Further diagnostic testing is not planned. Additional medical procedures are planned as he may be candidate for a spinal cord stimulator Activity limiting health problems include history of DM Type 2, Major Depressive Disorder without psychotic features, history of NSTEMI [address], essentiall HTN, history of palm lacerationat right ring finger. Current work status: Out of work, on worker's compensation. He works for the [employer] out of [place], [place]. He has a job to return to if able. Personal Function 3 Month Goals Vocational: Get back to work in some capacity without being distracted by the pain. Be able to cut 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 Be able to assist with lifting of heavy equipment. Be able to lift 75 lbs. Recreational: Re-enage in past hobbies with activity modification. [facility] with his son. Be able to engage in group physical outings as a participants. Be able to go 4 wheeling. Be able to go outside in the cold for over an hour without stopping due to pain. Develop an exercise routine that he can stick to for overall conditioning and health. Daily Living: Be able to engage in restful sleep, be able to Use dominant R hand for improved writing and and gross motor tasks, improve avionics installer and [employer] for cooking, and working on cars. PHYSICAL EVALUATION Resting Vital Signs: BP 130/84 HR 74 Gait: Normal, right shoulder depressed and protected at side. Plant Taxonomist Testing R: 30, 15, 30 Severely Impaired L: 105, 110, 115 WFL Gross Upper Body Screen Appears to have functional range of motion in BUE, equal movement patterns with overall increased tone in elbow and wrist motion. Grossly equal motion noted throughout range. Chooses to disengage R 4th and 5th digit when gripping with R hand due to painful sensations from elbow through to fingers. B shoulders at approximately 160-170 degrees flexion with right shoulder slightly more sluggish withmotion. Stands with RUE slightly more internally rotated compared to LUE. AROM (degrees): Lumbar Spine Forward bend (0-90) Functional screen- able to touch toes Backward bend (0-30) Functional screen- able to extend appropriately SLR Right (0-90) n/a SLR Left (0-90) n/a SLR-Pelvic Motion [smallest SLR - (flex + ext)] Able to sit in chair with hips at 90 degrees. Cervical Spine Flexion (0-60) 30 Extension (0-50) 40 Rot. Right (0-80) 60 Rot. Left (0-80) 60 Lat. Flex Right (0-45) 30 Lat. Flex Left (0-45) 20 Endurance Testing: Modified Ramp Treadmill Test Minutes Completed 6:00 % Grade 12 Speed (mph) 2.5 MET/HR Reason for Stop Point: Slight shortness of breath, using B hands for support. Functional Strength Testing: PILE Testing lbs/HR Floor To Waist 20 / 99 Waist to Shoulder Reason for Stop Point: Right forearm nerve pain Noted avoidance of including right 4th and 5th digits in lifting which does affect overall strength tolerance for lift. During physical testing, participation level was guarded but consistent. Demand Levels of Functional Recovery Goals Current Capacity Limit / Physical Demand Level (PDL) Vocational: Medium Heavy to Heavy Recreational: Medium Daily Living: Light Light The PDL listed above is based on today's physical performance screening tests. More comprehensive physical testing integrated with clinical findings would be required to derive an accurate work capacity. ASSESSMENT OF FUNCTIONAL TESTING: Isiah Medrano would benefit from all of the aspects the functional gnosticism program offers in terms of chronic pain management education. Physically, he demonstrates overall deconditioning and movements patterns leading to decreased functional strength in dominant R upper extremity. He posses the cognitive ability to comprehend information and gaining better understanding of management strategies for chronic pain may increase his ability to concentrate more fully on desired tasks. Socially,he is isolated and becoming more fearful of engaging in desired occupations with family and friendsand this can lead to increased depressive symptoms, increased unhealthy lifestyle behaviors and in activity that could interfere with his diabetes management and cardiac status if not addressed. Total time for testin minutes documented in this encounter Plan of Treatment Upcoming Encounters Date Type Department Care Team (Late st Contact Info) Description 08/18/2024 10:30 AM EST Office [place] [address] Rodrigo Conteh MD [facility] [place] [place] [address] Scheduled Referrals Name Type Priority Associated Diagnoses Orde r Schedule Referral to Spine Center Outpatient Referral Routine Ulnar neuropathy of right upper extremity Ordered: 02/22/2020 documented as of this encounter Visit Diagnoses Diagnosis Pain of right upper extremity Ulnar neuropathy of right upper extremity Lesion of ulnar nerve Type 2 diabetes mellitus with hyperglycemia, with long-term current use of insulin Vitamin D insufficiency Unspecified vitamin D deficiency Dyslipidemia Other and unspecified hyperlipidemia documented in this encounter Care Teams Saw Superintendent Relationship Specialty Start Date End Date Sravani Salas APRN [address] [place] [address] PCP - General Family Medicine 01/15/17 documented as of this encounter
--- OUTSIDE RECORDS SUMMARY | 2024-08-14 01:22 | XMS_ITS | Encounter Summary ---
Author Organization [facility] [address] Care Team Providers Care Support Services Tech Name Role Phone Sravani Salas APRN Primary Care Provider [phone] [phone] Reason for Visit * Reason Comments Right Arm Pain Encounter Details Date Type Department Care Team (Late st Contact Info) Description 12/12/2020 2:00 PM EDT Office Visit Functional Zoroastrianism Program at [facility] [address] [place] [address] Briana Crane, OT Pain of right upper [...] encounter Miscellaneous Notes * Initial Evaluation - Briana Crane OT - 12/12/2020 2:00 PM EDT GOALS AND PHYSICAL CAPACITIES ASSESSMENT Mr. Medrano [facility] to assist with determining candidacy for admission into the Functional Zoroastrianism Program. Mr. Medrano reports that the chief complaint requiring rehabilitation is right arm pain burning in nature constant starting around the elbow moving down arm into 4th and 5th digits. Anatomic diagnoseshave included ulnar neuropathy s/p work related accident in 2014. Prior treatments included PT, ulnar nerve transposition, trial of spinal cord stimulator with no relief, ulnar nerve stimulator whichmade things worse, injections, gabapentin, LDN. Further diagnostic testing is not planned. Additional medical procedures are not planned. Activity limiting health problems include history of DM Type 2, history of NSTEMI with [address], essentiall HTN, right knee meniscus tear. Current work status: out of work Employer: [employer] He reports there is an active worker's compensation claim and/or there is not a personal injury claim associated with this injury. Personal Function 3 Month Goals Vocational: Unclear. Recreational: Be able to manage a firearm to go turkey hunting, carry a 25 pound turkey. Be able togo 4-wheeling, including tolerating the bumpy terrain, be able to walk for an hour without a break Daily Living: be able to sleep for 6-7 hours/night, be able to mow the lawn, be able to maintain his vehicle; be able operate a chain saw to cut firewood, splint and stack; be able to help his elderly parents get off the floor if they were to fall. PHYSICAL EVALUATION Resting Vital Signs: BP 125/60 HR 85 Gait: normal. AROM (degrees): Lumbar Spine Forward bend (0-90) 70 Backward bend (0-30) 25 SLR Right (0-90) 70 SLR Left (0-90) 70 SLR-Pelvic Motion [smallest SLR - (flex + ext)] 15 Cervical Spine Flexion (0-60) 55 Extension (0-50) 60 Rot. Right (0-80) 75 Rot. Left (0-80) 75 Lat. Flex Right (0-45) 35 Lat. Flex Left (0-45) 35 Shoulder range of motion: all within functional limits with some pulling sensation around the elbow(surgical scar) with external and internal rotation positions Endurance Testing: Modified Ramp Treadmill Test Minutes Completed 5 % Grade 11 Speed (mph) 2.3 MET/HR Reason for Stop Point: Right arm pain Functional Strength Testing: PILE Testing lbs/HR Floor To Waist Waist to Shoulder Reason for Stop Point: Right arm pain During physical testing, participation level was consistent. Demand Levels of Functional Recovery Goals Current Capacity Limit / Physical Demand Level (PDL) Vocational: Unclear Recreational: [employer] Daily Living: Medium-heavy Light The PDL listed above is based on today's physical performance screening tests. More comprehensive physical testing integrated with clinical findings would be required to derive an accurate work capacity. ASSESSMENT OF FUNCTIONAL TESTING:Based on today???s physical capacity findings Isiah Medrano is a candidate for a multidisciplinary intensive physical rehabilitation program with behavioral support. There are physical limitations in gait, range of motion, walking endurance, functional strength, andoverall physical capacities that interfere with basic functional tasks and hinder quality of life. I believe that this can improve with functional rehabilitation. PLAN: Pending medical clearance, Isiah has been recommended for the upcoming Functional Zoroastrianism Program (FRP) that includes 3-4 weeks of intensive PT/OT followed by a minimum of 6 months commitment to self care exercise for improving and maintaining physical capacities. Total time for testin minutes documented in this encounter Plan of Treatment Upcoming Encounters Date Type Department Care Team (Late st Contact Info) Description 08/18/2024 10:30 AM EST Office [place] [address] Rodrigo Conteh MD [facility] [place] [address] documented as of this encounter Visit Diagnoses Diagnosis Pain of right upper extremity Type 2 diabetes mellitus with hyperglycemia, with long-term current use of insulin Vitamin D insufficiency Unspecified vitamin D deficiency Dyslipidemia Other and unspecified hyperlipidemia documented in this encounter Care Teams Support Services Tech Relationship Specialty Start Date End Date Sravani Salas APRN [address] [place] [address] PCP - General Family Medicine 01/15/17 documented as of this encounter
--- OUTSIDE RECORDS SUMMARY | 2024-08-14 01:22 | XMS_ITS | Encounter Summary ---
[place] [address] Care Team Providers Care Program Coordinator Name Role Phone Sravani Salas Silas CADY Primary Care Provider [phone] [phone] Encounter Details Date Type Department Care Team (Late st Contact Info) Description 05/26/2020 Telephone [place] [address] Guera Jalloh RN Social History Tobacco Use Types Packs/Day [...] encounter Miscellaneous Notes * Telephone Encounter - Guera Jalloh RN - 05/26/2020 2:38 PM EDT Incoming call from patient he states I am calling because I had a SCS trial done yesterday and I have swelling in my hand and I was not able to sleep I wore it all night and then this morning I shut it off and the swelling went down I talked to the rep and he had me change the settings and that did not help also he advised I call you guys Nurse advises she will forward this to Dr. Carrasco and Dr. Torres for review and recommendation and ask to have a call back. Patient agrees with the plan Message forwarded to Dr. Carrasco and Dr. Torres documented in this encounter Plan of Treatment Upcoming Encounters Date Type Department Care Team (Late st Contact Info) Description 08/18/2024 10:30 AM EST Office [place] [address] Rodrigo Conteh MD [facility] [place] [address] documented as of this encounter Visit Diagnoses Not on filedocumented in this encounter Care Teams Program Coordinator Relationship Specialty Start Date End Date Sravani Salas APRN [address] [place] [address] PCP - General Family Medicine 01/15/17 documented as of this encounter
--- OUTSIDE RECORDS SUMMARY | 2024-08-14 01:22 | XMS_ITS | Encounter Summary ---
Author Organization [facility] [place] [address] Care Team Providers Care Backup Administrator Name Role Phone Sravani Salas APRN Primary Care Provider [phone] [phone] Encounter Details Date Type Department Care Team (Late st Contact Info) Description 06/01/2020 8:15 AM EDT Notes Only [facility] at [place] [phone] Social History Tobacco Use Types Packs/Day Years [...] 10:30 AM EST Office Visit [place] [address] Rodrigo Conteh MD [facility] [place] [address] documented as of this encounter Visit Diagnoses Not on filedocumented in this encounter Care Teams Backup Administrator Relationship Specialty Start Date End Date Sravani Salas APRN [address] [place] [address] PCP - General Family Medicine 01/15/17 documented as of this encounter
--- OUTSIDE RECORDS SUMMARY | 2024-08-14 01:22 | XMS_ITS | Encounter Summary ---
Author Organization [facility] [place] [address] Care Team Providers Care Composite Engineer Name Role Phone Sravani Salas APRN Primary Care Provider [phone] [phone] Encounter Details Date Type Department Care Team (Late st Contact Info) Description 03/24/2020 Orders Only [facility] [place] [address] Kenneth Morrison LNA Social History Tobacco Use Types Packs/Day Years [...] 10:30 AM EST Office [place] [address] Rodrigo Conteh MD [facility] [place] [address] documented as of this encounter Visit Diagnoses Not on filedocumented in this encounter Care Teams Composite Engineer Relationship Specialty Start Date End Date Sravani Salas APRN [address] [place] [address] PCP - General Family Medicine 01/15/17 documented as of this encounter
--- OUTSIDE RECORDS SUMMARY | 2024-08-14 01:22 | XMS_ITS | Encounter Summary ---
Author Organization [facility] [place] [address] Care Team Providers Care Director Of Nurses Registry Name Role Phone Sravani Salas APRN Primary Care Provider [phone] [phone] Encounter Details Date Type Department Care Team (Late st Contact Info) Description 12/21/2020 8:00 AM EDT Office Visit Functional Adventist Program at [facility] [address] [place] [address] Isiah Taylor, PT Pain of right upper [...] - Therapy - Isiah Taylor, PT - 12/21/2020 8:00 AM EDT P Physical Therapy Note [facility] Day 2 Protocol Subjective: Isiah returns today for a scheduled follow up appointment with [facility]; he reports he is excited to get started today. Objective: Treatment Received: Refer to [facility] protocol for explanation of program/physical therapy details. 1. Therapeutic and Functional Exercise: See P flow sheets for progression. Strengthening and conditioning designed according to personal functional recovery goals and [facility] protocol was: (x) Completed ( ) Not completed 2. Home Exercise Program: Outlined evening routine to compliment program activity. Recommended alternating lower trunk rotation hook-lying, forward bend standing, and backward bend standing x 10 repetitions each along with going for a walk at least 10 minutes duration. 3. Neurological Assessment: (x) No change in status ( ) Change in status Established form and initial resistance levels for strength training components. Assessment: Isiah is progressing as planned with quota based training. He demonstrates good comprehension of today's functional strengthening principles and initial exercise protocols. He actively participated with initiation of training components. Plan: Return for follow up with [...] 10:30 AM EST Office Visit [place] [address] Rodrigo Conteh MD [facility] [place] [place] [address] documented as of this encounter Visit Diagnoses Diagnosis Pain of right upper extremity Ulnar neuropathy of right upper extremity Lesion of ulnar nerve Type 2 diabetes mellitus with hyperglycemia, with long-term current use of insulin Vitamin D insufficiency Unspecified vitamin D deficiency Dyslipidemia Other and unspecified hyperlipidemia documented in this encounter Care Teams Director Of Nurses Registry Relationship Specialty Start Date End Date Sravani Salas APRN [address] [place] [address] PCP - General Family Medicine 01/15/17 documented as of this encounter
--- OUTSIDE RECORDS SUMMARY | 2024-08-14 01:22 | XMS_ITS | Encounter Summary ---
Author Organization [facility] [address] Care Team Providers Care Material Handler Floorperson Name Role Phone Sravani Salas APRN Primary Care Provider [phone] [phone] Reason for Visit * Reason Comments Right Arm Pain Encounter Details Date Type Department Care Team (Late st Contact Info) Description 12/21/2020 8:00 AM EDT Office Visit Functional Judaism Program at [facility] [address] [place] [address] Briana Crane, OT Pain of right upper [...] - Therapy - Briana Crane OT - 12/21/2020 8:00 AM EDT [facility] Occupational Therapy Note In Person Orientation to Functional Conditioning [facility] Day 2 Protocol Subjective: Mr. Medrano returns for Day 2 of the Functional Judaism Program. He reports that some of the new exercises and techniques will take some getting used to.. Objective: Refer to [facility] protocol for additional explanation of program/occupational therapy details. AM Orientation and Conditioning - Mr. Medrano received individual instruction in functional conditioning and was given an opportunity to demonstrate understanding of and ability to perform each task. He completed a return demonstration for each exercise to ensure proper form and safety. Introduced straight-leg lifting technique used to increase back strength and decrease fear of re-injury. The rationale for this technique was thoroughly explained so that Mr. Medrano understands that,while it is an effective training technique, it will not be the appropriate technique to use for all heavy lifts in the future. Mr. Medrano participated in a regular session of conditioning at the conclusion of orientation. Introduced the concept of mindfulness meditation and it's application within the functional gnosticism program. Discussed it's use as an effective pain and stress management technique and discussed evidence for this approach. Assigned evening homework of completing a mindful ADL with a focus on paying attention to the breathing. Discussed what to expect and general flow of formalized practices. ( X ) Completed ( ) Did not complete PM Conditioning - ( X ) Completed ( ) Did not complete Assessment: Mr. Medrano demonstrated a good understanding of today's functional conditioning principles and initial exercise protocols. He actively [...] provided by both an Occupational Therapist and Snorkelling Instructor, TYRON Gibson documented in this encounter Plan of Treatment Upcoming Encounters Date Type Department Care Team (Late st Contact Info) Description 08/18/2024 10:30 AM EST Office Visit End[place] [address] Rodrigo Conteh MD [facility] [place] [place] [address] documented as of this encounter Visit Diagnoses Diagnosis Pain of right upper extremity Type 2 diabetes mellitus with hyperglycemia, with long-term current use of insulin Vitamin D insufficiency Unspecified vitamin D deficiency Dyslipidemia Other and unspecified hyperlipidemia documented in this encounter Care Teams Material Handler Floorperson Relationship Specialty Start Date End Date Sravani Salas APRN [address] [place] [address] PCP - General Family Medicine 01/15/17 documented as of this encounter
--- OUTSIDE RECORDS SUMMARY | 2024-08-14 01:22 | XMS_ITS | Encounter Summary ---
[place] [address] Care Team Providers Care Commodity Director Name Role Phone JosueSravani Silas CADY Primary Care Provider [phone] [phone] Encounter Details Date Type Department Care Team (Late st Contact Info) Description 12/07/2020 Telephone [place] [address] Raina López Social History Tobacco [...] * Telephone Encounter - Raina López - 12/07/2020 10:14 AM EDT Received a voicemail from Mr. Medrano at 10:07am in regards to scheduling his Re- GAP. I called [phone] to get him scheduled and did not reach the patient. Left a voicemail requesting he call [phone]. documented in this encounter Plan of Treatment Upcoming Encounters Date Type Department Care Team (Late st Contact Info) Description 08/18/2024 10:30 AM EST Office [place] [address] Rodrigo Conteh MD [facility] [place] [address] documented as of this encounter Visit Diagnoses Not on filedocumented in this encounter Care Teams Commodity Director Relationship Specialty Start Date End Date Sravani Salas APRN [address] [place] [address] PCP - General Family Medicine 01/15/17 documented as of this encounter
--- OUTSIDE RECORDS SUMMARY | 2024-08-14 01:22 | XMS_ITS | Encounter Summary ---
Author Organization [facility] [place] [address] Care Team Providers Care Caterers Helper Name Role Phone Sravani Salas APRN Primary Care Provider +1 [phone] Encounter Details Date Type Department Care Team (Latest Contact Info) Description 03/24/2020 4:30 PM EDT Laboratory Appointment Lab [address] [place] [address] Ulnar neuropathy of right upper extremity Social [...] 10:30 AM EST Office [place] [address] Rodrigo Conteh MD [facility] [place] [address] documented as of this encounter Procedures Procedure Name Priority Date/Time Associated Diagnosis Comments HC HEMOGLOBIN A1C Routine 03/24/2020 4:3 4 PM EDT Ulnar neuropathy of right upper extremity documented in this encounter Results * (ABNORMAL) Hemoglobin A1c (03/24/2020 4:34 PM EDT) Hemoglobin A1c 6.2(H) 4.3 - 5.6 % [facility] Comment: Reference Range: 4.3 - [...] Mellitus, Diabetes Care 2013; 36: Suppl. 1, V67-57 Estimated Average Glucose 132 mg/dL [facility] Comment: eAG equivalents for HbA1c [...] into estimated average glucose values. ??Diabetes Care 2008:31(8):4242-9071. Blood specimen (specimen) 03/24/2020 4:34 PM EDT 03/24/2020 4:47 PM EDT Narrative Resulting Agency Comment Spec In Lab Cleveland Torres MD CHEMISTRY ORDERABLES [facility] [place] [address] documented in this encounter Visit Diagnoses Diagnosis Ulnar neuropathy of right upper extremity Lesion of ulnar nerve Type 2 diabetes mellitus with hyperglycemia, with long-term current use of insulin Vitamin D insufficiency Unspecified vitamin D deficiency Dyslipidemia Other and unspecified hyperlipidemia documented in this encounter Care Teams Caterers Helper Relationship Specialty Start Date End Date Sravani Salas APRN [address] [place] [address] PCP - General Family Medicine 01/15/17 documented as of this encounter
--- OUTSIDE RECORDS SUMMARY | 2024-08-14 01:22 | XMS_ITS | Encounter Summary ---
Author Organization [facility] Address [facility] [place] [address] Care Team Providers Care Reporting Process Consultant Name Role Phone Sravani Salas CADY Primary Care Provider +1 [phone] Encounter Details Date Type Department Care Team (Late st Contact Info) Description 07/18/2020 Telephone Care Management [facility] [place] [address] Pao Ling STEEPLECHASE JOCKEY [facility] [place] [address] Social History Tobacco Use Types Packs/Day Years [...] encounter Miscellaneous Notes * Telephone Encounter - Pao Ling MSW - 07/18/2020 3:01 PM EST Workers Compensation Demographics: Insurance: [facility] Knitting Machine Operator; Darin [phone] / fax [phone]. DOI: 01-10-15 RADHA spoke w/ on 07-18 re: pt's f/u appt w/ him today. questioned if pt had been referred to the FRP program. CCM f/u w/ Lesa Leochico re; the above, after reviewing 's note w/ reference to the GAP evaluation recommendations. Ms. Holt confirmed pt did not have a GAP evaluation as he had instead wanted to pursue the SCS treatment before considering the FRP tx option. CCM f/u w/ re: the above, recommending he put a referral in for pt to be scheduled for the GAP evaluation, if pt was in agreement w/ this plan. P: CCM will f/u w/ FRP tx team PRN re: the above encounter and be available for f/u intervention PRN. documented in this encounter Plan of Treatment Upcoming Encounters Date Type Department Care Team (Late st Contact Info) Description 08/18/2024 10:30 AM EST Office [place] [address] Rodrigo Conteh MD [facility] [place] [address] documented as of this encounter Visit Diagnoses Not on filedocumented in this encounter Care Teams Reporting Process Consultant Relationship Specialty Start Date End Date Sravani Salas APRN [address] [place] [address] PCP - General Family Medicine 01/15/17 documented as of this encounter
--- OUTSIDE RECORDS SUMMARY | 2024-08-14 01:22 | XMS_ITS | Encounter Summary ---
Author Organization [facility] [place] [address] Care Team Providers Care Home Coordinator Name Role Phone Sravani Salas APRN Primary Care Provider [phone] [phone] Encounter Details Date Type Department Care Team (Late st Contact Info) Description 12/22/2020 8:00 AM EDT Office Visit Functional Jehovah'S Witness Program at [facility] [address] [place] [address] Isiah Taylor, PT Pain of right upper [...] - Therapy - Isiah Taylor, PT - 12/22/2020 8:00 AM EDT P Physical Therapy Note [facility] Day 3 Protocol Subjective: Isiah returns today for a scheduled follow up appointment with [facility]; he reports no new complaints. Objective: Treatment Received: Refer to [facility] protocol for explanation of program/physical [...] progressing as planned with quota based training. Form instruction provided andinitial resistance level selection made for strength training components. Plan: Return for follow up [...] 10:30 AM EST Office [place] [address] Rodrigo Conteh MD [facility] [place] [address] documented as of this encounter Visit Diagnoses Diagnosis Pain of right upper extremity Ulnar neuropathy of right upper extremity Lesion of ulnar nerve Type 2 diabetes mellitus with hyperglycemia, with long-term current use of insulin Vitamin D insufficiency Unspecified vitamin D deficiency Dyslipidemia Other and unspecified hyperlipidemia documented in this encounter Care Teams Home Coordinator Relationship Specialty Start Date End Date Sravani Salas APRN [address] [place] [address] PCP - General Family Medicine 01/15/17 documented as of this encounter
--- OUTSIDE RECORDS SUMMARY | 2024-08-14 01:22 | XMS_ITS | Encounter Summary ---
Author Organization [facility] [place] [address] Care Team Providers Care Dye House Helper Name Role Phone Eleuteroi Salasgm Rosen CADY Primary Care Provider [phone] [phone] Encounter Details Date Type Department Care Team (Late st Contact Info) Description 07/18/2020 11:30 AM EST Office Visit [facility] [place] [address] Cleveland Torres MD [facility] [place] [address] Ulnar neuropathy of right upper extremity Social [...] Sign Reading Time Taken Comments Blood Pressure 113/80 07/18/2020 11:27 AM EST Pulse 84 07/18/2020 11:27 AM EST Temperature 36.8 ??C (98.3 ??F) 07/18/2020 11:[address] Respiratory Rate - - Oxygen Saturation 98% 07/18/2020 11:27 AM EST Inhaled Oxygen Concentration - - Weight 90.7 kg (200 lb) 07/18/2020 11:27 AM EST Height - - Body Mass Index 32.28 06/01/2020 7:45 AM EDT documented in this encounter Progress Notes * Cleveland Torres MD - 07/18/2020 11:30 AM EST [facility] [place] [address] Phone: PAIN MANAGEMENT FOLLOW UP DATE OF VISIT 07/18/2020 Patient Isiah Medrano 1965 REFERRING PROVIDER Panfilo Evangelista MD [address] [place] [address] PRIMARY CARE PROVIDER Sravani Salas APRN CHIEF COMPLAINT: Right arm pain in the ulnar distribution HPI Iisah Medrano is a 55 y.o. is here [...] with a psychologist/therapist on a weekly basis. ADLS: With difficulty ABERRANT Behavior: None ANALGESIA: Fair ADVERSE EFFECTS: None ADVERSE DRUG REACTIONS Allergies as of 07/18/2020 - Review Complete 07/18/2020 Allergen Reaction Noted ??? Eptifibatide Other (See Comments) ??? Amoxicillin Other (See Comments) 02/07/2017 MEDICATIONS Medications 07/18/20 1127 Medication Sig Taking? Magtab 84 mg Tablet Sustained Release Indications: 3 times a week Yes imipramine (Tofranil) 50 mg Tablet nightly. Yes insulin detemir U-100 (Levemir U-100 Insulin) Solution Inject 30 Units subcutaneously every morning. Yes insulin lispro (humaLOG KwikPen) Insulin Pen Inject 10-15 Units subcutaneously 3 times daily (before meals). Patient taking differently: Inject 10-15 Units subcutaneously 3 times daily (before meals). Levemirkwikpen Yes ARIPiprazole (ABILIFY) 10 mg Tablet 10 mg daily. Yes DULoxetine DR (CYMBALTA) 60 mg Capsule, Delayed Release(E.C.) daily. Yes ferrous sulfate 325 mg (65 mg iron) Tablet daily. Yes nitroGLYcerin (NITROSTAT) 0.4 mg Tablet, Sublingual Yes sertraline (ZOLOFT) 100 mg Tablet daily. Yes metFORMIN (GLUCOPHAGE) 1,000 mg Tablet 2 times daily (with meals). Yes metoprolol succinate XL (TOPROL-XL) 50 mg Tablet Sustained Release 24 hr daily. Yes traZODone (DESYREL) 100 mg Tablet nightly. [...] route 2 times daily (before meals). Yes PHYSICAL EXAMINATION Patient Vitals for the past 24 hrs: Temp Pulse BP SpO2 07/18/20 1127 36.8 ??C (98.3 ??F) 84 113/80 98 % Body mass index is 32.28 kg/m??. BP 113/80 Pulse 84 Temp 36.8 ??C (98.3 ??F) Wt 90.7 kg (200 lb) PHQ-9 QUESTIONNAIRE SCORE ONLY (AMB) 06/10/2019 PHQ - 9 Score (Clinic) 11 (Moderate Depression) PHQ - 9 Score (Patient) - Patient makes good eye contact and communicates easily. 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 Recommendations: #1 Medications: Continue as is #2 Procedures: None at this time. I am not really sure if there is another interventional option that would be helpful for him. Also not clear if implanting stimulator given only 20-25% relief of pain is a reasonable option as well. I am going to bring him to our challenging case conference. #3 Imaging: None at this time #4 Referrals: None at this time #5 Behavioral Medicine: Continue as is #6 Physical Medicine: Consider functional mu-ism program-patient did have a gap evaluation andfelt to be a reasonable candidate. I have asked Isiah to call them to set up intake. I spent 20 of 25 minutes discussing plan of care with the patient. Isiah Medrano had the opportunity to ask questions and indicated that all questions were answered to their satisfaction. 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
--- OUTSIDE RECORDS SUMMARY | 2024-08-14 01:22 | XMS_ITS | Encounter Summary ---
Author Organization [facility] [place] [address] Care Team Providers Care Ship Painter Helper Name Role Phone Sravani Salas APRN Primary Care Provider [phone] Reason for Visit * Reason Comments Pain Management Encounter Details Date Type Department Care Team (Late st Contact Info) Description 06/01/2020 8:15 AM EDT Office Visit [facility] and Sp[facility] at [facility] [place] [id number] Cecelia Zhu [place] [facility] [place] [address] Ulnar neuropathy of right upper extremity Social [...] Sign Reading Time Taken Comments Blood Pressure 125/75 06/01/2020 7:45 AM EDT Pulse 78 06/01/2020 7:45 AM EDT Temperature 36.4 ??C (97.6 ??F) 06/01/2020 7:45 AM ED T Respiratory Rate - - Oxygen Saturation 98% 06/01/2020 7:45 AM EDT Inhaled Oxygen Concentration - - Weight 93 kg (205 lb) 06/01/2020 7:45 AM EDT Height 167.6 cm (5' 6) 06/01/2020 7:45 AM EDT Body Mass Index 33.09 06/01/2020 7:45 AM EDT documented in this encounter Progress Notes * Cecelia Zhu APRN - 06/01/2020 8:15 AM EDT Spinal Cord Stimulator Trial Follow-up Visit The patient presents today for post spinal cord stimulator lead pull. The trial 2 leads were placedon 05/25/[address] Torres for ulnar nerve neuralgia due to work injury DOI: 01/10/2015. [employer] trial. He originally injured his elbow striking it against the door frame of a truck on January 10, 2015. He denies fever, chills, or purulent discharge. He reports 0-10% improvement in his pain during thetrial. He reports that he did not feel that any of the programming gave him benefit. Has been in contact with [employer] and tried mulitple programs without benefit. I inspected the surgical sites and found No signs of infection. I removed the 2 trial leads and allelectrodes were present. I placed band aids on the surgical sites. The patient does not qualify to proceed forward with implantation of the spinal cord stimulator. He has met with Sandra Hatch APRN for evaluation for Functional [facility]. Follow-up with Dr. Torres to discuss treatment options. 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
--- OUTSIDE RECORDS SUMMARY | 2024-08-14 01:22 | XMS_ITS | Encounter Summary ---
[place] [address] Care Team Providers Care Foundry Worker Name Role Phone Sravani Salas APRN Primary Care Provider [phone] Encounter Details Date Type Department Care Team (Late st Contact Info) Description 11/18/2020 Telephone [facility] [place] [phone] Raina López Social History Tobacco Use Types [...] encounter Miscellaneous Notes * Telephone Encounter - Kandy Everett - 11/23/2020 1:46 PM EDT Left message requesting patient return call back at [phone]. * Telephone Encounter - Kandy Everett - 11/23/2020 1:45 PM EDT Patient left message requesting return call at [phone]. * Telephone Encounter - Raina López - 11/18/2020 9:23 AM EDT Left call back number [phone]. Patient's real estate associate attorney requested that we reach out to get a GAP assessment for the Functional [facility] Program scheduled. documented in this encounter Plan of Treatment Upcoming Encounters Date Type Department Care Team (Late st Contact Info) Description 08/18/2024 10:30 AM EST Office Visit [place] [address] Rodrigo Conteh MD [facility] [place] [address] documented as of this encounter Visit Diagnoses Not on filedocumented in this encounter Care Teams Foundry Worker Relationship Specialty Start Date End Date Sravani Salas APRN [address] [place] [address] PCP - General Family Medicine 01/15/17 documented as of this encounter
--- OUTSIDE RECORDS SUMMARY | 2024-08-14 01:22 | XMS_ITS | Encounter Summary ---
Author Organization [facility] [place] [address] Care Team Providers Care Processing Operator Name Role Phone Sravani Salas APRN Primary Care Provider [phone] Encounter Details Date Type Department Care Team (Late st Contact Info) Description 12/20/2020 1:45 PM EDT Office Visit Functional [facility] Program at [facility] [address] [place] [address] Sandra Hatch APRN [facility] [place] [address] Ulnar neuropathy of right upper extremity Social [...] Progress Notes * Sandra Hatch APRN - 12/20/2020 1:45 PM EDT Chief complaint requiring rehabilitation: Right ulnar neuropathy This is the goals and health barriers visit and note for admission to the Functional [facility] Program. Personal Function 3 Month Goals ?? Vocational: Unclear. Recreational: Be able to manage [...] the floor if they were to fall. Activity level:walks 20 minutes a day ( ? 1/2 a mile) activity limiting health problems: has type 2 diabetes, ( AIc6.7) CV disease, hypertension , on medication ( well controlled) With these goals in mind, the following review of systems was positive as noted: Chest pain: no Shortness of breath: no Palpitations: no Chronic cough: no Hypertension: yes, but controlled Cigarettes: no Joint pains or injuries: Right elbow only Any physical problem that might worsen with exercise: no Depression: yes, no SI currently, had SI about a year ago. Saw PSYCH here at [facility] a year ago Anxiety/PTSD: Anxiety, secondary to injury Sleep problems: not great. Trouble initiating and maintaining sleep. Counseling history: Sees a local counselor ( on the phone, next appointment , now seeing counselor every other week.) Alcohol: no Caffiene: 2 cups daily PHYSICAL EXAM Pulse: 80 BP: 122/64 Resp/min: 16 Lungs: clear Heart: no Murmur no Click Abdomen: no Mass no Tenderness , umbilical hernia, non tender Neuro-screen reveals: interossei weakness right, , vice president research strength weaker right, decreased sensation right ulnar side of forearmand hand HEALTH BARRIERS TO PERSONAL GOALS with PLAN for EACH: #1 Sleep problems: tries to read before bed, in bed , no TV, foes to be at 9:30 - 10 pm, gets up at5. Anxiety, seeing counselor regularly This was a counseling-based visit for 30 of the 45 minute encounter, discussing the goals, barrier problems and plans as outlined above. Sandra Hatch, MS, JIG GRINDER-BC, LABORATORY SUPERVISOR Nurse practitioner Pain management [facility] documented in this encounter Plan of Treatment Upcoming Encounters Date Type Department Care Team (Late st Contact Info) Description 08/18/2024 10:30 AM EST Office [place] [address] Rodrigo Conteh MD [facility] [place] [address] documented as of this encounter Visit Diagnoses Diagnosis Ulnar neuropathy of right upper extremity Lesion of ulnar nerve Type 2 diabetes mellitus with hyperglycemia, with long-term current use of insulin Vitamin D insufficiency Unspecified vitamin D deficiency Dyslipidemia Other and unspecified hyperlipidemia documented in this encounter Care Teams Processing Operator Relationship Specialty Start Date End Date Sravani Salas APRN [address] [place] [address] PCP - General Family Medicine 01/15/17 documented as of this encounter
--- OUTSIDE RECORDS SUMMARY | 2024-08-14 01:22 | XMS_ITS | Encounter Summary ---
Author Organization [facility] [place] [address] Care Team Providers Care Funeral Home General Manager Name Role Phone Josue Sravani Rosen CADY Primary Care Provider [phone] [phone] Encounter Details Date Type Department Care Team (Late Contact Info) Description 05/26/2020 Telephone [place] [id number] Cleveland Torres MD [facility] [place] [address] Social History Tobacco Use Types Packs/Day Years [...] encounter Miscellaneous Notes * Telephone Encounter - Cleveland Torres MD - 05/26/2020 5:37 PM EDT I spoke to the patient. He was complaining of swelling in his hand and more pain. He spoke to infirst Healthcare and settings were changed and he is doing better today. He still does not know whether is helping his pain. The swelling has dissipated. I have asked him to contact us tomorrow to update us how he is doing. documented in this encounter Plan of Treatment Upcoming Encounters Date Type Department Care Team (Late Contact Info) Description 08/18/2024 10:30 AM EST Office Visit [place] [address] Rodrigo Conteh MD [facility] [place] [address] documented as of this encounter Visit Diagnoses Not on filedocumented in this encounter Care Teams Funeral Home General Manager Relationship Specialty Start Date End Date Sravani Salas APRN [address] [place] [address] PCP - General Family Medicine 01/15/17 documented as of this encounter
--- OUTSIDE RECORDS SUMMARY | 2024-08-14 01:22 | XMS_ITS | Encounter Summary ---
Author Organization [facility] [place] [address] Care Team Providers Care Photo Lab Specialist Name Role Phone Sravani Salas CADY Primary Care Provider [phone] Encounter Details Date Type Department Care Team (Late st Contact Info) Description 12/22/2020 11:00 AM EDT Office Visit Functional Scientologist Program at [facility] [address] [place] [address] Sandra Hatch APRN [facility] [place] [address] Ulnar neuropathy of right upper extremity Social [...] of this encounter Progress Notes * Sandra Hatch, CADY - 12/22/2020 11:00 AM EDT 12/22/2020 [id number] Isiah Medrano FUNCTIONAL FAITH PROGRAM REHABILTIATION TRAINING LECTURE Chief complaint requiring rehabilitation: ulnar neuropathy Title: ? Pain & Function? Presenter: Sandra Hatch MS EXHAUST EMISSIONS INSPECTOR This one hour lecture began with interactive exercises to demonstrate the difficulties in assessingand understanding another person???s pain. Then the question of activity limitation and prescription was reviewed in terms of personal pain experience and expectations, functional goals and priorities, medical expertise. The learning model of reacting to pain by limiting activity was reviewed leading to a discussion of the development of safe training methods that are gradually progressive and goal- and quota-based rather than symptom- reactive. Importance of maintaining physical gains after rehabilitation by committing to a more active lifestyle was stressed. and Title: Goal Setting Presenter:Sandra Hatch APRN This is a one hour lecture and interactive group session. Individuals??? responses to their initialgoal setting questionnaires are discussed with special attention to the diversity of their pain andfunctional goals and priorities. The complex relationship between pain and function is discussed inthe context of underlying beliefs and expectations and how these may dramatically affect recovery and the individuals??? ability to get what they want from treatment. Practical application of these issues to the individual???s situation is stressed. Lecture Time: 60 min. 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
--- OUTSIDE RECORDS SUMMARY | 2024-08-14 01:22 | XMS_ITS | Encounter Summary ---
Author Organization [facility] [place] [address] Care Team Providers Care Financing Analyst Name Role Phone Josue Sravani Rosen CADY Primary Care Provider [phone] Encounter Details Date Type Department Care Team (Late st Contact Info) Description 12/23/2020 8:30 AM EDT Office Visit Functional Alevism Program at [facility] [address] [place] [address] Sandra Hatch APRN [facility] [place] [address] Pain of right upper extremity Social History [...] Progress Notes * Sandra Hatch APRN - 12/23/2020 8:30 AM EDT [facility]: Functional Alevism Program Admission Staff Meeting 12/23/2020 I, Raina López, am compiling the information for Sandra Hatch APRN, to discuss and review with the patient. I met with Mr. Medrano for the entire 20 minutes today to discuss his admission and progress in the Functional Alevism Program as written in this note. We discussed medical progress, imaging, surgical decision making, current pain and functional status, compared that status to personal recovery goals, and established the plan of care accordingly as below. The chief complaint requiring rehabilitation is right arm pain burning in nature constant starting in elbow an moving down arm into 4th and 5th digits. ??Anatomic diagnoses have included ulnar neuropathy s/p work related accident in 2015. ??Prior treatments included PT, ulnar nerve transposition, trial of spinal cord stimulator with no relief,??ulnar nerve stimulator??which made things worse, injections, gabapentin, LDN.?? Most recent imaging has revealed no surgical lesion and surgery has beenwaived. ?? Additional activity limiting health problems include history of DM Type 2, history of NSTEMI with 2stents place, essentiall HTN.. ?? Current work status: Out of work, on worker's compensation since 01/10/2015. He works for the [employer] [place] ??He believes he has a job to return to if able. Results of the Touch Pad [facility]na[facility] QUESTIONNAIRE TOTALS 12/20/2020 INSOMNIA SEVERITY INDEX 24 (Severe insomnia) Total PHQ-9 17 (Moderately Severe Depression) CENTRAL SENZITIZATION INVENTORY 47 (Moderate) PDQ Functional Condition 69 PDQ Psychosocial Component 50 PDQ Total Score 119 (Extreme) JEANNETTE-7 13 (Moderate Anxiety) FACS SCORING 78 (Extreme) Visual Analog Scale (VAS) for Pain Score 6.1 Pain over the last week rating score 7.58 PT Objective Measures Endurance and Flexibility Test Results: Reported Tolerance (minutes) First Day of FRP: End of FRP: 1 Month Follow-up: 3 Month Follow-up (optional): Sittin Standin Walkin Flexibility (degrees): Neck: First Day of FRP: End of FRP: 1 Month Follow-up: 3 Month Follow-up (optional): Bending Forward: 55 Bending Back: 45 Turning Right: 60 Turning Left: 60 Tilting Right: 25 Tilting Left: 35 Low Back: First Day of FRP: End of FRP: 1 Month Follow-up: 3 Month Follow-up (optional): Bending Forward: 75 Bending Back: 25 Straight Leg Raise Right: 80 Straight Leg Raise Left: 80 Straight Leg Raise Pelvic: 5 Treadmill First Day of FRP: End of FRP: 1 Month Follow-up: 3 Month Follow-up (optional): MET Level: Heart Rate: MET Level: Heart Rate: MET Level: Heart Rate: MET Level: Heart Rate: Treadmill Endurance: 7 126 Reason for Stopping (if applicable): Shortness of Breath OT Objective Measures Physical Capacity Test Results: First Day of FRP: End of FRP: 1 Month Follow-up: 3 Month Follow-up (optional): Pounds: Heart Rate: Pounds: Heart Rate: Pounds: Heart Rate: Pounds: Heart Rate: Lifting: Frequent Floor to Waist: 20 93 Frequent Waist to Shoulder: 10 89 Occasional: 30 Carry (2 handed, 50 ft): 20 Work Demand Level: Light Your Functional Goals: Functional Goals- First Day of FRP: Progress Toward Goals- End of FRP: Progress Toward Goals- 1 Month Follow-up: Progress Toward Goals- 3 Month Follow-up (optional): Vocational: unclear Recreational: be able to walk for an hour without a break; Resume hunting - manage firearm, carry kill, hike in jung; Be able to ride 4-mahoney over bumpy terrain ; Daily Living: be able to sleep for 6-7 hours/night;be able to help his elderly parents get off the floor if they fall; be able operate a chain saw to cut firewood, split and stack wood; be able operate a chain saw to cut firewood, split and stack wood; be able to mow the lawn Functional Activity Goal Start of Program: Rom Lumbar Flex (degrees): Pile FW: MET: PLAN: Functional Alevism Program. Cc: Isiah Medrano [address] [facility] [address] Sravani Salas APRN [address] [place] [address] Cleveland Torres MD [facility] [place] [address] FUNCTIONAL RASTAFARI PROGRAM (FRP) PROTOCOL DESCRIPTION IN ORDER TO MAINTAIN APPROPRIATE SOCIAL DISTANCING DUE TO THE COVID-19 PANDEMIC, THE PROGRAM WILL BE A HYBRID MODEL OF ON-SITE DAYS WELL PARTICIPATION VIA TELEHEALTH SERVICES. NEED FOR ON-SITE VS. TELEHEALTH TREATMENT WILL BE DETERMINED BASED ON THE # OF PARTICIPANTS AND THE VARIED NEED FOR SPECIFIC ACCESS TO FRP EQUIPMENT. THE BASIC STRUCTURE AND COMPONENTS EACH DAY WILL BE CONSISTENT REGARDLESS OF LOCATION AND FULL PARTICIPATION WILL BE EXPECTED FROM ALL. DAY 1 TESTING The first day of FRP includes testing from all departments to measure baseline values including: Visual Analog Pain Scale, FACS, CSI, JEANNETTE-7, PDQ, CHRISTEN, PHQ-9, PCL-5, Sitting Standing & Walking tolerance, Range of Motion measured in degrees using an inclinometer, MET Level, Lifting capacity (occasional & frequent), Push/Pull, Carry-2 handed 50 ft, DOT level. The Star-Eliel Reading Test may also be utilized as needed to provide information in the most appropriate format. Day 1 testing includes: * Physical Therapy: Functional Assessment (PT section) * Occupational Therapy: Functional Assessment (OT section) * Touch Pad Survey * Medical Consult with ALICE (Associate Pain Provider) STRETCH, STRENGTH, & AEROBICS 1 hour daily with 2 [facility] staff members PT/OT/CLAM GRADER Low impact aerobic conditioning and strengthening class that alternates between floor aerobics, step aerobics, yoga, exercise ball training, strengthening and stretching. This is the first class of every day so that patients begin the day with a warm-up of low-impact and low intensity conditioning.The goal of the class is to introduce and encourage different types of cardiovascular conditioning and strengthening. STRENGTHENING & CARDIOVASCULAR EXERCISE 1 hour daily with 2 [facility] staff members PT/CLAM GRADER The physical therapy staff instructs, modifies, and supervises upper extremity, lower extremity, and core strengthening exercises focused on regaining total body fitness. These exercises are completed by all patients and include free weights, weight machines, general upper and lower extremity exercise, and specific spinal flexor and extensor strengthening. Available dumbbells include 1-50 lbs. The exercises are listed in the training record and can be changed for each program and/or individualized for each patient. Patients are methodically encouraged to increase their repetitions, sets or weight for their exercises daily. The therapists will recommend an increase in 1 set, or 10 repetitions, or 1-5 lbs in weight. This will be decided by the therapists daily based on the patient's abilityto complete the current exercise prescription, exercise mechanics, tolerance level, or current relevant physical complaints. Cardiovascular conditioning includes at least 15 minutes of one activity to be completed in 1-4 sessions. FRP patients seldom have the conditioning to complete 15 minutes of one activity at a sufficient intensity to provoke a cardiovascular training response. Therefore, FRP utilizes multiple sessions to reach cardiovascular goals. Multiple types of cardiovascular equipment will be used which include: stationary bike, elliptical machine treadmill, outdoor walks and stairwells. Exercise grades, intensity, and times are monitored and recorded. Perceived exertion or heart rate may also be used torate exercise intensity. Intensity, incline, speed, and/or time will be increased daily. However, walking speed will be initially accelerated and emphasized. A normal walking speed of 3.5mph is a common goal of patients before the end of a program. Home Exercise programs are individualized for their specific chief complaint and any secondary musculoskeletal and/or cardiovascular concerns. They will include cardiovascular training, strengthening, stretching, and ROM activities when needed. These programs are to be completed by patients during their time away from [facility] (weekends, off days) and ultimately for after program completion. Home exercise programs will be reviewed and revised so that by the end of the program the patient has a progressed individualized therapeutic exercise self-care plan. The goal of the physical therapy home program is to teach and encourage the patient to continue exercise for continued functional recovery andpain relief. Throughout the month of treatment the patients are educated regarding exercise decision making withthe goal that by the end of the intensive program they are capable of continuing their training, making alterations and corrections as required, independently. The education takes place throughout the month of treatment sessions, is progressive for each patient (some patients may be able to safely structure and carry out their individual program sooner than others), and individualized for the musculoskeletal and cardiovascular needs of each patient. FUNCTIONAL CONDITIONING 1.5 hours (over 1-2 sessions) with 2 [facility] staff members OT/PT/CLAM GRADER Work Conditioning: Involves progressive and graded activities used at work, home and recreation. These activities include 1. Lifting: * Frequent -Floor to waist - 20 X per session; 1-2 sessions per day * Frequent - Waist to shoulder -20 X per session; 1-2 sessions per day * Occasional Lifting- 5X per session; 1-2 sessions per day 2. Carrying - 5-10 minutes - 1 and 2 handed approaches, increasing weight carried on a daily basis 3. Repetitive bending and reaching - up to 10 minutes - wearing hand weights to increase upper extremity strength and tolerance to bending. 4. Pushing and pulling sled -25 feet - either weight and repetitions increase daily 5. Lifting through ROM - increases in either repetition or weight daily 6. Lifting - starts at roughly 1/3 of frequent testing weight and increases in regular intervals each day until goal weight is reached. During the work conditioning sessions, individuals are taught stretching and/or other strategies including pacing for managing pain symptoms and when to utilize them most effectively. Sessions are designed to increase work capacity goals through both strengthening and exposure to the level identified in the Occupational Therapy initial note. INDIVIDUAL TIME 15-30 minutes of individual treatment time with the OT and PT. MEDICAL APPOINTMENT (Meeting with ALICE/MD) 25 minute individual clinic visit with program directors to discuss program and individuals status,goals, and plan. MEETING WITH MD/ALICE AND STAFF (Staffing Meeting) 15-25 minute individual clinic visit with assistant program manager and medical staff to discuss individuals' status, progress, goals, and plan. WALK, MINDFULNESS/RELAXATION TRAINING & STRETCHING 1 hour with 2 [facility] staff members PT/OT/CLAM GRADER Patients will walk for 20-30 minutes, starting on flat terrain with minimal inclines for less time.They are encouraged to increase their speed, and therefore, heart rate, each day at their own pace to ultimately increase their walking tolerance. As their tolerance progresses, walks will include more incline. Patients also participate in 30 minutes of education and practice including the following mindfulness and relaxation techniques for pain management: breathing focus, body scan, walking meditation. Stretching techniques that are taught include standing and mat-based approaches. PAIN EDUCATION SERIES All discussions are 1 hour and led by Alexis The latest research shows that the more you know about pain and how it works, the better off you'llbe. This includes moving and functioning better, experiencing less pain, and having an increased ability and interest in healthy exercise and movement. This knowledge is essential to your recovery, and research has shown that anyone can understand it, so welcome to Pain Neuroscience. Led by our clinical pain psychologist, these group discussions are designed to educate patients on pain neuroscience, coping skills and how to manage pain stressors in their lives. All patients are encouraged to participate in the group discussion as they feel comfortable. The objective is to help patients understand that they are not alone in their feelings and pain situations. Group discussionsallow connections to be made with the pain psychologist as well as other group members allowing a supportive environment for all. 1. Why Things Hurt - Introduction to basic pain neuroscience. Learn what is happening in your tissues, nerves, and brain to create pain. 2. History of Pain and Its Treatment - How do we know what we know about pain, and if we know so much - why are you still in pain? This will explain some of the mysteries of pain. 3. The Izq-Ktbree-Hkfvfi Model of Pain and Multidisciplinary Treatment - Understanding and treatingpain from a comprehensive, multidisciplinary approach is the gold standard of care. Studies have shown that understanding and viewing chronic pain though a biopsychosocial lens is a critical component of success in a program like this. 4. Things That Make Pain Worse - Learn how habitual thoughts, emotions, and behaviors can actually turn the volume up on pain. 5. Mindfulness Meditation and Chronic Pain - Learn the rationale for a daily meditation practice and a little bit about the health benefits of meditation. 6. Things That Make Pain Better - Take all the information and skills that you've learned so far and put together a program that reduces pain flares and gets you back engaged with your life. 7. Sleep and Chronic Pain - If you're not moving and you're not sleeping, you're not going to feel better. Learn to improve sleep habits even if you still have pain. 8. Don't Let Pain Ruin Your Relationships - Help your family and friends better understand your pain and support your new healthy habits. 9. Pulling It All Together - How to maintain new habits at home and manage relapses. MEDICAL DISCUSSIONS All discussions are 1 hour and led by [facility] staff MD/ALICE Interactive group discussions are designed to educate, motivate, and empower the patients to self-manage their pain and accompanying medical co-morbidities. Topics covered: 1. FUNCTIONAL RASTAFARI & GOAL SETTING ??? Interactive exercises to demonstrate the difficulties in assessing and understanding another person's pain. ??? The learning model of reacting to pain by limiting activity is reviewed, leading to a discussion of the development of safe training methods that are gradually progressive and goal- and quota-based rather than symptom-reactive. Importance of maintaining physical gains after rehabilitation by committing to a more active lifestyle is stressed. ??? The complex relationship between pain and function is discussed in the context of underlying beliefs and expectations and how these may dramatically affect recovery and the individuals' ability to get what they want from treatment. Practical application of these issues to the individual's situation is stressed. 2. ANATOMY, IMAGING, SURGICAL DECISION MAKING, MEDICATIONS ??? Topics covered: Importance of the History, Physical Examination, and Imaging studies. Solving the Mystery: Where is the Pain Coming From? Defines anatomy and possible pain generators in the back.Some thoughts and explanations for the failure to improve: What's known, what's not ??? This also includes listing all the patients' current and prior chief complaint-related medications, placing each in its pharmacological category. The personal experiences of the patients in termsof side effects and benefits are reviewed and discussed with references to the biochemical and clinical effects of the drugs. The lack of curative impact of these medications is stressed. The difficulties in determining optimal doses for analgesics are discussed in the context of the varying needs of patients and regulatory issues involved. The importance of prescribing in the framework of functional goals is reviewed as opposed to focusing entirely on symptom relief. 3. CHRONIC PAIN & THE NERVOUS SYSTEM ??? Reviews basic neuro anatomy and the relationship between pain and cognitive states, as well as the concept of central sensitization. A discussion regarding coping skills such as meditation, mindfulness and cognitive restructuring is discussed. 4. LIFESTYLE AND WELLNESS ??? The purpose of this discussion is to identify modifiable and non-modifiable factors that influence health and wellness. Focus on defining wellness and health, discussing non-modifiable risk factors of morbidity and mortality vs. modifiable factors. Discussion of strategies for maximal management of non- modifiable factors. Includes diet, nutrition information, exercise recommendations, sleep and stress management. All participants encouraged to participate and share helpful coping strategies. SUPPLEMENTAL DISCUSSIONS by [facility] staff HAT MODEL/PT/OT/CLAM GRADER as needed 1. JOB HUNTING ??? A review of job seeking skills and hints to use after an injury and rehabilitation. Includes topics such as employer's obligations, your obligations, vocational rehabilitation, resume and cover letter writing, application process and writing. There is also an extensive discussion of the Americans with Disabilities Act. 2. WORKERS COMPENSATION & INSURANCE This will be provided asynchronously via telehealth recording. ??? This lecture provides a detailed description of the benefits, known criteria, application and review process for (6) most common types of disability; Workers Compensation, Short term/Incident Response Lead Disability, Social Security Disability, Tort/Liability, [place]inding [place], and Medicaid. ??? During the course of the lecture patients are encouraged to share their concerns and questions as well as to elicit and dispel any myths, beliefs or assumptions they, their families, or others may have had about these resources. Further exploration of the often ensuing disappointments many patients have when recognizing the limitations of the types of disabilities as well as exploration and re-framing of the potential opportunities. ??? Concurrently, specifics of plateau (ie MMI or End Medical) for workers compensation as well as information on how impairment ratings are calculated are explored both to encourage patient planningas well as to begin to face these signifant psychosocial stressors faced by patients as they end Functional Alevism and come to plateau. Patients who are not workers compensation are also encouraged to participate in this conversation as part of a therapeutic review of understanding their fellow participants and the challenges faced by others. UNGUARDED ACTIVITIES 30 minutes with 2 FRP staff members CLAM GRADER/OT/PT Games are utilized to encourage to encourage spontaneous or quick movements. Games played for 15-30minutes. The goal of unguarded activity is to increase cardiovascular fitness, strength, endurance and flexibility and to encourage spontaneous movements. FUNCTIONAL RASTAFARI PROGRAM (FRP) DAILY PROTOCOL OVERVIEW: FRP consists of at least 19 days of interdisciplinary treatment and patients are approximately in the clinic each day from 8 am to 2:30 pm. Individual meeting times with PT, OT, and Care Management occur at multiple points during the FRP Functional Alevism Week 1 Protocol Day 1 Day 1 Testing (4 hours) Orientation (1 hour) Group Testing (45 minutes) ALICE evaluation (45 minutes) Functional Alevism Week 1 Protocol Day 2 Stretch, Strengthening and Aerobics Class (1 hour) Strengthening and Cardiovascular Exercise (1 hour) Meeting with ALICE (25 minutes) Functional Conditioning (1 hour) Mindfulness/Relaxation and Unguarded Activity (30 minutes) Functional Conditioning/Walk/Stretching (1 hour) Medical Discussion (60 minutes) Functional Alevism Week 1 Protocol Day 3 Stretch, Strengthening and Aerobics Class (1 hour) Strengthening and Cardiovascular Exercise (1 hour) Functional Conditioning (1 hour) Mindfulness/Relaxation and Unguarded Activity (30 minutes) Functional Conditioning/Walk/Stretching (1 hour) Medical Discussion (60 minutes) Functional Alevism Week 1 Protocol Day 4 Stretch, Strengthening and Aerobics Class (1 hour) Strengthening and Cardiovascular Exercise (1 hour) Functional Conditioning (1 hour) Mindfulness/Relaxation and Unguarded Activity (30 minutes) Functional Conditioning/Walk/Stretching (1 hour) Medical Discussion (60 minutes) Functional Alevism Week 2 Protocol Day 5 Stretch, Strengthening and Aerobics Class (1 hour) Strengthening and Cardiovascular Exercise (1 hour) Functional Conditioning (1 hour) Mindfulness/Relaxation and Unguarded Activity (30 minutes) Functional Conditioning/Walk/Stretching (1 hour) Pain Neuroscience Education Discussion (60 minutes) Functional Alevism Week 2 Protocol Day 6 Stretch, Strengthening and Aerobics Class (1 hour) Strengthening and Cardiovascular Exercise (1 hour) Functional Conditioning (1 hour) Mindfulness/Relaxation and Unguarded Activity (30 minutes) Functional Conditioning/Walk/Stretching (1 hour) Pain Neuroscience Education Discussion (60 minutes) Functional Alevism Week 2 Protocol Day 7 Stretch, Strengthening and Aerobics Class (1 hour) Bowman testing (1 hour) Strengthening and Cardiovascular Exercise (1 hour) Functional Conditioning (1 hour) Mindfulness/Relaxation and Unguarded Activity (30 minutes) Functional Conditioning/Walk/Stretching (1 hour) Pain Neuroscience Education Discussion (60 minutes) Functional Alevism Week 2 Protocol Day 8 Stretch, Strengthening and Aerobics Class (1 hour) Strengthening and Cardiovascular Exercise (1 hour) Functional Conditioning (1 hour) Mindfulness/Relaxation and Unguarded Activity (30 minutes) Functional Conditioning/Walk/Stretching (1 hour) Pain Neuroscience Education Discussion (60 minutes) Functional Alevism Week 2 Protocol Day 9 Stretch, Strengthening and Aerobics Class (1 hour) Strengthening and Cardiovascular Exercise (1 hour) Functional Conditioning (1 hour) Mindfulness/Relaxation and Unguarded Activity (30 minutes) Functional Conditioning/Walk/Stretching (1 hour) Pain Neuroscience Education Discussion (60 minutes) Functional Alevism Week 3 Protocol Day 10 Stretch, Strengthening and Aerobics Class (1 hour) Strengthening and Cardiovascular Exercise (1 hour) Functional Conditioning (1 hour) Mindfulness/Relaxation and Unguarded Activity (30 minutes) Functional Conditioning/Walk/Stretching (1 hour) Medical Discussion (60 minutes) Functional Alevism Week 3 Protocol Day 11 Stretch, strengthening and aerobics class (1 hour) Strengthening and Cardiovascular Exercise (1 hour) Functional Conditioning (1 hour) Mindfulness/Relaxation and Unguarded Activity (30 minutes) Functional Conditioning/Walk/Stretching (1 hour) Pain Neuroscience Education Discussion (60 minutes) Functional Alevism Week 3 Protocol Day 12 Stretch, strengthening and aerobics class (1 hour) Strengthening and Cardiovascular Exercise (1 hour) Functional Conditioning (1 hour) Mindfulness/Relaxation and Unguarded Activity (30 minutes) Functional Conditioning/Walk/Stretching (1 hour) Pain Neuroscience Education Discussion (60 minutes) Functional [employer] Week 3 Protocol Day 13 Stretch, Strengthening, Aerobics class (1 hour) Strengthening and Cardiovascular Exercise (1 hour) Functional Conditioning (1 hour) Mindfulness/Relaxation and Unguarded Activity (30 minutes) Functional Conditioning/Walk/Stretching (1 hour) Pain Neuroscience Education Discussion (60 minutes) Functional [employer] Week 3 Protocol Day 14 Stretch, Strengthening, Aerobics class (1 hour) Strengthening and Cardiovascular Exercise (1 hour) Functional Conditioning (1 hour) Mindfulness/Relaxation and Unguarded Activity (30 minutes) Functional Conditioning/Walk/Stretching (1 hour) Pain Neuroscience Education Discussion (60 minutes) Functional [employer] Week 3 Protocol Day 15 Stretch, Strengthening and Aerobics Class (1 hour) Strengthening and Functional Conditioning (1hour) Functional Conditioning (1 hour) Mindfulness/Relaxation and Unguarded Activity (30 minutes) Functional Conditioning/Walk/Stretching (1 hour) Pain Neuroscience Education Discussion (60 minutes) Functional [employer] Week 4 Protocol Day 16 Stretch, Strengthening and Aerobics Class (1 hour) Strengthening and Functional Conditioning (1hour) Functional Conditioning (1 hour) Mindfulness/Relaxation and Unguarded Activity (30 minutes) Functional Conditioning/Walk/Stretching (1 hour) Pain Neuroscience Education Discussion (60 minutes) Functional [employer] Week 4 Protocol Day 17 Stretch, Strengthening and Aerobics Class (1 hour) Strengthening and Functional Conditioning (1hour) Functional Conditioning (1 hour) Mindfulness/Relaxation and Unguarded Activity (30 minutes) Functional Conditioning/Walk/Stretching (1 hour) Pain Neuroscience Education Discussion (60 minutes) Functional [employer] Week 4 Protocol Day 18 Stretch, Strengthening and Aerobics Class (1 hour) Strengthening and Functional Conditioning (1 hour) Testing (2 hours) Functional Conditioning/Stretching/Unguarded Activity (30 minutes) Pain Neuroscience Education Discussion (60 minutes) Functional [employer] Week 4 Protocol Day 19 Stretch, Strengthening and Aerobics Class (1 hour) Strengthening and Functional Conditioning (1hour) Individual Meeting with MD/ALICE and staff (25 minutes) Graduation and Final D/C information (20 minutes) documented in this encounter Plan of Treatment Upcoming Encounters Date Type Department Care Team (Late st Contact Info) Description 08/18/2024 10:30 AM EST Office [place] [address] Rodrigo Conteh MD [facility] [place] [address] documented as of this encounter Visit Diagnoses Diagnosis Pain of right upper extremity Type 2 diabetes mellitus with hyperglycemia, with long-term current use of insulin Vitamin D insufficiency Unspecified vitamin D deficiency Dyslipidemia Other and unspecified hyperlipidemia documented in this encounter Care Teams Financing Analyst Relationship Specialty Start Date End Date Sravani Salas APRN [address] [place] [address] PCP - General Family Medicine 01/15/17 documented as of this encounter
--- OUTSIDE RECORDS SUMMARY | 2024-08-14 01:22 | XMS_ITS | Encounter Summary ---
Author Organization [facility] [place] [address] Care Team Providers Care Rubber Roller Grinder Operator Name Role Phone Sravani Salas CADY Primary Care Provider [phone] Encounter Details Date Type Department Care Team (Late st Contact Info) Description 07/22/2020 Telephone [place] [phone] Michelle Means Social History Tobacco Use Types Packs/Day Years [...] encounter Miscellaneous Notes * Telephone Encounter - Michelle Tarango - 07/22/2020 3:23 PM EST Spoke to pt to schedule f/u. Pt stated he will call back when hes down here for other things documented in this encounter Plan of Treatment Upcoming Encounters Date Type Department Care Team (Late st Contact Info) Description 08/18/2024 10:30 AM EST Office [place] [phone] Rodrigo Conteh MD [facility] [place] [address] documented as of this encounter Visit Diagnoses Not on filedocumented in this encounter Care Teams Rubber Roller Grinder Operator Relationship Specialty Start Date End Date Sravani Salas APRN [address] [place] [address] PCP - General Family Medicine 01/15/17 documented as of this encounter
--- OUTSIDE RECORDS SUMMARY | 2024-08-14 01:22 | XMS_ITS | Encounter Summary ---
[place] [address] Care Team Providers Care Toy Department Manager Name Role Phone Sravani Salas APRN Primary Care Provider [phone] Reason for Referral * Physical Therapy (Routine) - Closed Specialty Diagnoses / Procedures Referred By Contvianey t Referred To Contact Physical Therapy Diagnoses Ulnar neuropathy of right upper extremity Eval and Treat (direct Isiah) - Telehealth Sandra Hatch APRN [facility] [place] [address] [facility] [place] [address] Referral ID Status Reason Start Date Expiration Date V isits Requested Visits Authorized [id number] Closed Evaluate and Treat 03/24/2020 03/24/2021 12 12 Reason for Visit * Reason Comments Pain Management med clearance GAP Encounter Details Date Type Department Care Team (Late st Contact Info) Description 03/24/2020 3:30 PM EDT Office Visit [facility] [place] [address] Sandra Hatch APRN [facility] [place] [address] Ulnar neuropathy of right upper extremity (Primary Dx) Social History Tobacco Use Types Packs/Day Years [...] Sign Reading Time Taken Comments Blood Pressure 133/88 03/24/2020 3:36 PM EDT Pulse 76 03/24/2020 3:36 PM EDT Temperature 36.8 ??C (98.3 ??F) 03/24/2020 3:36 PM ED T Respiratory Rate - - Oxygen Saturation 99% 03/24/2020 3:36 PM EDT Inhaled Oxygen Concentration - - Weight 86.2 kg (190 lb) 03/24/2020 3:36 PM EDT Height - - Body Mass Index 30.67 03/11/2020 1:19 PM EDT documented in this encounter Progress Notes * Sandra Hatch, SALT OPERATOR - 03/24/2020 3:30 PM EDT Chief complaint requiring rehabilitation: right arm pain burning in nature constant starting in shoulder an moving down arm into 4th and 5th digits. S: Isiah is being seen today for medical clearance for the Functional [employer] program, a graduated exercise program aimed at The patient achieving hisfunctional goals, despite having chronic pain.His pain pattern is described as right arm pain burning in nature constant starting in shoulder an moving down arm into 4th and 5th digits. , He has had treatments including PT, ulnar nerve transposition, ulnar nerve stimulator, injections, gabapentin, LDN. ?? The patient's current goals are : Personal Function 3 Month Goals ?? Vocational: Get back to work in some capacity without being distracted by the pain. Be able to cut 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 Be able to assist with lifting of heavy equipment. Be able to lift 75 lbs. Recreational: Re-enage in past hobbies with activity modification. [facility] his son. Be able [...] writing and and gross motor tasks, improve cook chief and [employer] for cooking, and working on cars. O: Please see Ms. Garrett's 's note of today for details of the physical testing and current functional Level. In general the patients current level of functioning is in the light demand level and goals are in the medium to heavy demand level. A: There is a gap between His goals and abilities.This was a counseling visit for 25 minutes out [id number] about symptom and functional recovery, reviewing the content of FRP, and logistics specific to participation including, travel, lodging and exercise and activity planning . We have mutually decided to proceed withthe following plan. P: Isiah may be a candidate for functional worship. We have discussed that he would like to go forward with a spinal cord stimulator implantation. He is quite far along on that path and I believe that is reasonable. He would like to start walking and getting more physically fit and noticed that he was pretty can be deconditioned by the testing today and so I have gone ahead and ordered him to h ave some preconditioning with either Ms. Sanchez or Mr. Zhang and hopefully they can do some combination of telehealth and interpersonal visits as he [place] quite [place] distance away. If when he completes the foot the spinal cord stimulator trial and has completed his recuperation and is ready to go forward with conditioning, he would still like to participate in the functional worship program Ithink it would be a reasonable thing to do and I am happy to see him back again to help facilitate that. All questions were answered today . Sandra Hatch, , DAIRY QUALITY ASSURANCE OFFICER-MANISH, CADY Nurse practitioner Pain management [facility] documented in this encounter Plan of Treatment Upcoming Encounters Date Type Department Care Team (Late st Contact Info) Description 08/18/2024 10:30 AM EST Office [place] [address] Rodrigo Conteh MD [facility] [place] [address] Scheduled Referrals Name Type Priority Associated Diagnoses Orde r Schedule Referral to Physical Therapy Outpatient Referral Routine Ulnar neuropathy of right upper extremity Ordered: 03/24/2020 documented as of this encounter Visit Diagnoses Diagnosis Ulnar neuropathy of right upper extremity- Primary Lesion of ulnar nerve Type 2 diabetes mellitus with hyperglycemia, with long-term current use of insulin Vitamin D insufficiency Unspecified vitamin D deficiency Dyslipidemia Other and unspecified hyperlipidemia documented in this encounter Care Teams Toy Department Manager Relationship Specialty Start Date End Date Sravani Salas APRN [address] [place] [address] PCP - General Family Medicine 01/15/17 documented as of this encounter
--- OUTSIDE RECORDS SUMMARY | 2024-08-14 01:22 | XMS_ITS | Encounter Summary ---
[place] [address] Care Team Providers Care Branch Operations Coordinator Name Role Phone Sravani Salas APRN Primary Care Provider [phone] [phone] Reason for Visit * Auth/Cert Specialty Diagnoses / Procedures Referred By Contvianey t Referred To Contact Diagnoses ADA (iron deficiency anemia) iron def.anemia screening Procedures PRO COLONOSCOPY, DIAGNOSTIC COLONOSCOPY, DIAGNOSTIC Referral ID Status Reason Start Date Expiration Date Visits Re quested Visits Authorized [id number] 1 1 Encounter Details Date Type Department Care Team (Late st Contact Info) Description 03/11/2020 2:00 PM EDT - 03/11/2020 3:00 PM EDT Surgery [place] [phone] Sofia Almanza MD [facility] [place] [address] COLONOSCOPY, DIAGNOSTIC (WRVU 3.26) Social History Tobacco Use Types Packs/Day Years [...] Sign Reading Time Taken Comments Blood Pressure 95/59 03/11/2020 3:00 PM EDT Pulse 81 03/11/2020 3:00 PM EDT Temperature 37 ??C (98.6 ??F) 03/11/2020 1:19 PM EDT Respiratory Rate 12 03/11/2020 2:55 PM EDT Oxygen Saturation 96% 03/11/2020 3:00 PM EDT Inhaled Oxygen Concentration - - Weight 86.2 kg (190 lb) 03/11/2020 1:19 PM EDT Height 167.6 cm (5' 6) 03/11/2020 1:19 PM EDT Body Mass Index 30.67 03/11/2020 1:19 PM EDT documented in this encounter Discharge Instructions * Discharge Instructions* Shira Santos RN - 03/11/2020 3:57 PM EDT Colonoscopy: What to Expect at Home Your Recovery Your doctor will talk to you about when you will need your next colonoscopy. Your doctor can help you decide how often you need to be checked. This will depend on the results of your test and your risk for colorectal cancer. After the test, you may be bloated or have gas pains. You may need to pass gas. If a biopsy was done or a polyp was removed, you may have streaks of blood in your stool (feces) for a few days. Problems such as heavy rectal bleeding may not occur until several weeks after the test. This isn't common. But it can happen after polyps are removed. This care sheet gives you a general idea about how long it will take for you to recover. But each person recovers at a different pace. Follow the steps below to get better as quickly as possible. How can you care for yourself at home? Activity Rest when you feel tired. ?? You can do your normal activities when it feels okay to do so. Diet ?? Follow your doctor's directions for eating. ?? Unless your doctor has told you not to, drink plenty of fluids. This helps to replace the fluidsthat were lost during the colon prep. ?? Do not drink alcohol. Medicines ?? Your doctor will tell you if and when you can restart your medicines. He or she will also give you instructions about taking any new medicines. ?? If you take blood thinners, such as warfarin (Coumadin), clopidogrel (Plavix), or aspirin, be sure to talk to your doctor. He or she will tell you if and when to start taking those medicines again. Make sure that you understand exactly what your doctor wants you to do. ?? If polyps were removed or a biopsy was done during the test, your doctor may tell you not to take aspirin or other anti-inflammatory medicines for a few days. These include ibuprofen (Advil, Motrin) and naproxen (Aleve). Other instructions ?? For your safety, do not drive or operate machinery until the medicine wears off and you can think clearly. Your doctor may tell you not to drive or operate machinery until the day after your test. ?? Do not sign legal documents or make major decisions until the medicine wears off and you can think clearly. The anesthesia can make it hard for you to fully understand what you are agreeing to. Additional Information for Sedation Patients For patients who received sedation: ?? You may have received medications before and/or during your procedure which effects your judgement and reaction time. ?? Do not drive, operate machinery, drink alcoholic beverages or make important decisions for 24 hours. ?? Be careful on stairs as you may be unsteady on your feet. ?? You may eat a regular diet as tolerated. ?? Do not smoke if you are alone. ?? IV site: Slight redness or tenderness is normal, you can use a warm compress if you would like. If tenderness and/or redness increase or if foul drainage occurs, please contact your Doctor. Please call [phone] before 8pm Mon-Fri with problems, questions or concerns. If you call after 8pm or on weekends, call the Hospital at [phone] and ask to speak to the Nurse Prn bss solution architect and the head soft sugar operator will contact that person for you. When should you call for help? Call [phone] anytime you think you may need emergency care. For example, call if: ?? You passed out (lost consciousness). ?? You pass maroon or bloody stools. ?? You have trouble breathing. Call your doctor now or seek immediate medical care if: ?? You have pain that does not get better after you take pain medicine. ?? You are sick to your stomach or cannot drink fluids. ?? You have new or worse belly pain. ?? You have blood in your stools. ?? You have a fever. ?? You cannot pass stools or gas. Watch closely for changes in your health, and be sure to contact your doctor if you have any problems. Where can you learn more? [email or web address] View your After Visit Summary and more online at [email or web address] If you would like to provide feedback about your hospital experience, please call the Office of Patient and Family Relations at . If you have received this After Visit Summary in error, please immediately return it in person to the department, or notify the - Privacy Office by calling toll free at between the hours of 8AM and 5PM to arrange for our retrieval of the documents at no cost to you. Content Version: 12.2 ?? [id number] [employer]. Care instructions adapted under license by [facility]. If you have questions about a medical condition or this instruction, always ask your healthcare professional. [employer] disclaims any warranty or liability for your use of this information. documented in this encounter Medications at Time of Discharge Medication Sig Dispensed Refills Start Date End Date imipramine (Tofranil) 50 mg Tablet nightly. 02/25/2020 ARIPiprazole (ABILIFY) 10 mg Tablet 10 mg daily. 07/21/[address] (CYMBALTA) 60 mg Capsule, Delayed Release(E.C.) daily. 08/17/2019 ferrous sulfate 325 mg (65 mg iron) Tablet daily. 06/16/2019 nitroGLYcerin (NITROSTAT) 0.4 mg Tablet, Sublingual as needed for Chest pain. 07/21/2019 sertraline (ZOLOFT) 100 mg Tablet daily. 08/17/2019 traZODone (DESYREL) 100 mg Tablet nightly. 08/17/2019 insulin needles, disposable, (BD ULTRA-FINE MINI PEN NEEDLE) 31 gauge x 11/15 NeedleIndications:Ty pe 2 diabetes, controlled, with neuropathy by Other route. 1 box = 100 insulin PEN needles. 1 each 3 06/15/2019 Ibuprofen 200 mg Capsule Take 400 mg [...] 2 times daily. 100 Syringe 11 07/02/2017 NALTREXONE HCL (NALTREXONE ORAL)Indications:pt takes 4.5 mg daily Take 1 mg by mouth 4 times daily as needed (pain). Indications: pt takes 4.5 mg daily pen needle, diabetic (NOVOFINE PLUS) 32 gauge x 1/6 Needle 1 each by Misc.(Non-Drug; Combo Route) route 4 times daily as needed. 100 each 11 03/26/2017 allopurinol (ZYLOPRIM) 300 mg Tablet Take 300 mg by mouth nightly. aspirin 325 mg Tablet Take 325 mg by mouth daily. Ordered for Heart attack reasons gabapentin (NEURONTIN) 300 mg Capsule Take 900 mg by mouth 4 times daily. 3 03/20/2016 lisinopril (PRINIVIL;ZESTRIL) 20 mg Tablet Take 40 mg by mouth nightly. 03/22/2016 magnesium oxide (MAG-OX) 400 mg Tablet Take 400 mg by mouth nightly. 3 03/20/2016 multivitamin (THERAGRAN) Tablet Take 1 tablet by mouth daily. atorvastatin (LIPITOR) 40 mg Tablet Take 40 mg by mouth nightly. 05/24/2015 glimepiride (AMARYL) 4 mg Tablet Take 1 tablet by mouth 2 times daily. 180 tablet 3 06/10/2015 Blood Sugar Diagnostic (ONE TOUCH ULTRA TEST) test stripIndications:Typ e II or unspecified type diabetes mellitus without mention of complication, uncontrolled 1 each by Other route 4 times daily. Use as instructed 400 each 3 03/03/2013 Insulin Syringe-Needle U-100 (BD INSULIN SYRINGE ULT-FINE II) 1 mL 31 x 5/16 Syrg 1 each by Misc.(Non-Drug; Combo Route) route 2 times daily (before meals). 100 each 11 11/04/2012 insulin regular CONCENTRATE U-500 (HumuLIN R U-500) 500 unit/mL Solution 500 Units by NOT APPLICABLE route. 08/11/2017 02/17/2021 benzonatate (TESSALON) 200 mg Capsule Take by mouth as needed. 06/09/2019 02/17/2021 humuLIN R Solution 01/27/2020 0 insulin detemir U-100 (Levemir U-100 Insulin) Solution Inject 30 Units subcutaneously every morning. 10 mL 4 12/28/2019 07/19/2020 insulin lispro (humaLOG KwikPen) Insulin Pen Inject 10-15 Units subcutaneously 3 times daily (before meals). 15 mL 4 12/28/2019 02/17/2021 Levemir FlexTouch U-100 Insuln Insulin Pen 10/15/2019 03/24/2020 metFORMIN (GLUCOPHAGE) 1,000 mg Tablet 2 times daily (with meals). 08/17/2019 05/12/2021 metoprolol succinate XL (TOPROL-XL) 50 mg Tablet Sustained Release 24 hr daily. 05/07/2019 02/17/2021 documented as of this encounter H&P Notes * Sofia Almanza MD - 03/11/2020 2:23 PM EDT Patient Name: Isiah Medrano Patient Age: 55 y.o. Birthdate: 1965 Admit date: 03/11/2020 Attending Physician: Conrad Jones MD Gastroenterology and Hepatology Pre-Procedure History and Physical Exam Procedure: Colonoscopy: Indication: Average risk screening, low iron Patient Active Problem List Diagnosis Code ??? CIS - Acute non-ST segment elevation myocardial infarction ??? CIS - Depression ??? CIS - Diabetes mellitus type II ??? CIS - Essential hypertension ??? CIS - Gout ??? CIS - Hyperlipidemia ??? 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 Surgical followup Z09 ??? Pain of right upper extremity M79.601 ??? Severe episode of recurrent major depressive disorder, without psychotic features F33.2 ??? Diabetes mellitus type 2, insulin dependent E11.9, Z79.4 EXAM: HEENT: Airway examined, oropharynx clear Mallampati Score: II (soft palate, uvula, fauces visible) LUNGS: Clear to auscultation HEART: Regular rate and rhythm, normal S1, S2 ABDOMEN: Normal bowel sounds, soft, non tender, non distended, A/P Proceed with the planned endoscopic procedure. ASA 2 - Patient with mild systemic disease with no functional limitations Sedation Plan: moderate (conscious sedation) Risks and benefits of the procedure explained to the patient. Consent signed. documented in this encounter Plan of Treatment Upcoming Encounters Date Type Department Care Team (Late st Contact Info) Description 08/18/2024 10:30 AM EST Office [place] [address] Rodrigo Conteh MD [facility] DR ENDOCRINOLOGY [place] [phone] documented as of this encounter Procedures Procedure Name Priority Date/Time Associated Diagnosis Comments Colonoscopy, Diagnostic (79911) 03/11/2020 2:07 PM EDT iron def.anemia screening POCT GLUCOSE Routine 03/11/2020 2:04 PM EDT COLONOSCOPY Routine 03/11/2020 1:47 PM EDT POCT GLUCOSE Routine 03/11/2020 1:25 PM EDT documented in this encounter Results * POCT Glucose (03/11/2020 2:04 PM EDT) Glucose, POC 89 65 - 199 mg/dL [facility] Comment: Supplemental ranges: <140 mg/dL before meals <180 mg/dL all other times of the day Blood specimen (specimen) 03/11/2020 2:04 PM EDT 03/11/2020 2:04 PM EDT Conrad Jones MD POINT OF CARE MARIO T ORDERABLES [facility] [place] [address] * COLONOSCOPY (03/11/2020 1:47 PM EDT) COLONOSCOPY [facility] Endoscopy ___ Procedure Date: 03/11/2020 1:47 PM ? Patient Name: Isiah Medrano ? Date of : 1965 ? Age: 55 ? Order #: [id number] ? Instrument Name: [id number] ? ___ Procedure: ? Colonoscopy Indications: ? Iron deficiency anemia Providers: ? Lyndsey Edmond RN, Robin ? Sofia Saha MD Referring : ?Sravani H. Josue Medicines: ? Midazolam 4 mg IV, Fentanyl [...] preparation was evaluated using ? the BBPS (Charlotte Bowel Preparation ? Scale) with scores of: [...] PROVATION 03/11/2020 1:47 PM EDT Sravani Salas APRN GENERAL SURGICAL ORDERABLES Performing Organization Address City/[facility] Co de Phone Number PROVATION * (ABNORMAL) POCT Glucose (03/11/2020 1:25 PM EDT) Glucose, POC 61(L) 65 - 199 mg/dL [facility] Comment: Supplemental ranges: <140 mg/dL before meals <180 mg/dL all other times of the day Blood specimen (specimen) 03/11/2020 1:25 PM EDT 03/11/2020 1:25 PM EDT Conrad Jones MD POINT OF CARE MARIO T ORDERABLES Performing Organization Address [facility] Co de Phone Number [facility] [place] [address] documented in this encounter Visit Diagnoses Not on filedocumented in this encounter Administered Medications Inactive Administered Medications - up to 3 most recent administrations Medication Order MAR Action Action Date Dose Rate Site dextrose 5% and sodium chloride 0.45% infusion 100 mL/hr, Intravenous, CONTINUOUS, Starting on Sat03/11/20 at 1400, Until Sat03/11/20 at 1606, Endoscopy (Day of Procedure) New Bag 03/11/2020 1:39 PM EDT 100 mL/hr 100 mL/hr fentaNYL 50 mcg/mL multi-dose injection ONCE PRN, Starting on Sat03/11/20 at 1422, Until Sat03/11/20 at 1819, Intra-Operative (Intra-Procedure), Routine Given 03/11/2020 2:37 PM EDT 25 mcg Given 03/11/2020 2:29 PM EDT 50 mcg Given 03/11/2020 2:25 PM EDT 50 mcg lactated ringers infusion 100 mL/hr, Intravenous, CONTINUOUS, Starting on Sat03/11/20 at 1345, Until Sat03/11/20 at 1606, Endoscopy (Day of Procedure) New Bag 03/11/2020 1:30 PM EDT 100 mL/hr 100 mL/hr midazolam (PF) (VERSED) multi-dose injection ONCE PRN, Starting on Sat03/11/20 at 1422, Until Sat03/11/20 at 1819, Intra-Operative (Intra-Procedure), Routine Given 03/11/2020 2:37 PM EDT 1 mg Given 03/11/2020 2:29 PM EDT 1 mg Given 03/11/2020 2:25 PM EDT 1 mg documented in this encounter Active and Recently Administered Medications Times are shown in EDT. Continuous Medication Order 03/09/2020 03/10/2020 03/11/2020 dextrose 5% and sodium chloride 0.45% infusion (CANCELED) 100 mL/hr, Intravenous, CONTINUOUS, Starting on Sat03/11/20 at 1400, Until Sat03/11/20 at 1606, Endoscopy (Day of Procedure) 1339 (New Bag - Prov ider: Lyndsey Badillo, MANUEL) lactated ringers infusion (CANCELED) 100 mL/hr, Intravenous, CONTINUOUS, Starting on Sat03/11/20 at 1345, Until Sat03/11/20 at 1606, Endoscopy (Day of Procedure) 1330 (New Bag - Prov ider: Elda Vargas RN)1339 (Stopped - Provider: Lyndsey Badillo, MANUEL) PRN Medication Order 03/09/2020 03/10/2020 03/11/2020 fentaNYL 50 mcg/mL multi-dose injection (CANCELED) ONCE PRN, Starting on Sat03/11/20 at 1422, Until Sat03/11/20 at 1819, Intra-Operative (Intra-Procedure), Routine 1422 (Given - Provid er: Lyndsey Edmond RN)1425 (Given - Provider: Lyndsey Edmond RN)1429 (Given - Provider: Lyndsey Edmond RN)1437 (Given - Provider: Lyndsey Edmond RN) midazolam (PF) (VERSED) multi-dose injection (CANCELED) ONCE PRN, Starting on Sat03/11/20 at 1422, Until Sat03/11/20 at 1819, Intra-Operative (Intra-Procedure), Routine 1422 (Given - Provid er: Lyndsey Edmond RN)1425 (Given - Provider: Lyndsey Edmond RN)1429 (Given - Provider: Lyndsey Edmond RN)1437 (Given - Provider: Lyndsey Edmond RN) documented in this encounter Care Teams Branch Operations Coordinator Relationship Specialty Start Date End Date Sravani Salas, PROCESS SAFETY ENGINEERING TECHNOLOGIST [address] [place] [address] PCP - General Family Medicine 01/15/17 documented as of this encounter
--- OUTSIDE RECORDS SUMMARY | 2024-08-14 01:22 | XMS_ITS | Encounter Summary ---
[place] [address] Care Team Providers Care Blanket Cutting Machine Operator Name Role Phone Sravani Salas CADY Primary Care Provider [phone] [phone] Encounter Details Date Type Department Care Team (Late st Contact Info) Description 03/28/2020 Telephone [place] [phone] Cleveland Torres MD [facility] [place] [address] Social History Tobacco Use Types Packs/Day Years [...] Telephone Encounter - Cleveland Torres MD - 03/28/2020 1:04 PM EDT Left message for Hem A1C results documented in this encounter Plan of Treatment Upcoming Encounters Date Type Department Care Team (Late st Contact Info) Description 08/18/2024 10:30 AM EST Office Visit [place] [phone] Rodrigo Conteh MD [facility] [place] [address] documented as of this encounter Visit Diagnoses Not on filedocumented in this encounter Care Teams Blanket Cutting Machine Operator Relationship Specialty Start Date End Date Sravani Salas APRN [address] [place] [address] PCP - General Family Medicine 01/15/17 documented as of this encounter
--- OUTSIDE RECORDS SUMMARY | 2024-08-14 01:22 | XMS_ITS | Encounter Summary ---
Author Organization [facility] [place] [address] Care Team Providers Care Mill Hand Plate Mill Name Role Phone JosueSravani wood CADY Primary Care Provider [phone] Encounter Details Date Type Department Care Team (Late st Contact Info) Description 12/19/2020 4:00 PM EDT Office Visit Pain and Spine Center at [facility] [place] [place] [address] Asia Hernandez PsyD [facility] [place] [address] Pain of right upper extremity Social History [...] Progress Notes * Asia Hernandez PsyD - 12/19/2020 4:00 PM EDT ACTIVE PAIN CARE, a program of the [facility] Neuroscience Education Patient: Isiah Medrano Date: 12/19/2020 Topic: Pain 101: Why Things Hurt 120 minute Health & Behavior Intervention Group focused on Pain Education provided by Asia Hernandez PsyD, pain psychologist, and Isiah Taylor DPT, metal numerical tool programmer for the [facility]. The title of the group is Why Things Hurt and introduces patients to the basics of pain neuroscience. This group is intended to educate patients on how the nervous system and the brain process information and contribute to their pain experience. The intention is to help patients better understandthe complexity of their pain and enhance their motivation and ability to engage in active pain care, and thereby develop more effective self management strategies. Participants were educated that pain is a normal, human experience, however persistent pain is typically more due to the sensitive nervous system and how the brain processes information from the bodyand environment. Participants were provided the rationale for the education: that research has shown that if patients know and understand about pain, they experience better treatment outcomes, function better, experience less pain, and have greater interest in healthy exercise and movement. Participants were encouraged to follow up this single-session education with engagement in Active Pain Care treatment options, including the [facility] or Cognitive Behavioral Therapy for Chronic Pain. documented in this encounter Plan of Treatment Upcoming Encounters Date Type Department Care Team (Late st Contact Info) Description 08/18/2024 10:30 AM EST Office [place] [address] Rodrigo Conteh MD [facility] [place] [address] documented as of this encounter Visit Diagnoses Diagnosis Pain of right upper extremity Type 2 diabetes mellitus with hyperglycemia, with long-term current use of insulin Vitamin D insufficiency Unspecified vitamin D deficiency Dyslipidemia Other and unspecified hyperlipidemia documented in this encounter Care Teams Mill Hand Plate Mill Relationship Specialty Start Date End Date Sravani Salas APRN [address] [place] [address] PCP - General Family Medicine 01/15/17 documented as of this encounter
--- OUTSIDE RECORDS SUMMARY | 2024-08-14 01:22 | XMS_ITS | Encounter Summary ---
[place] [address] Care Team Providers Care Barrel Brander Name Role Phone Sravani Salas CADY Primary Care Provider [phone] [phone] Encounter Details Date Type Department Care Team (Late st Contact Info) Description 04/04/2020 Telephone [place] [address] Guera Jalloh RN Social History [...] Telephone Encounter - Guera Jalloh RN - 04/04/2020 2:41 PM EDT Patient called back and asked if Dr. Torres could please call him back. Nurse advises she will forward this message to Dr. Torres and ask him to call patient back. Patient will await a call back from Dr. torres documented in this encounter Plan of Treatment Upcoming Encounters Date Type Department Care Team (Late st Contact Info) Description 08/18/2024 10:30 AM EST Office [place] [address] Rodrigo Conteh MD [facility] [place] [address] documented as of this encounter Visit Diagnoses Not on filedocumented in this encounter Care Teams Barrel Brander Relationship Specialty Start Date End Date Sravani Salas APRN [address] [place] [address] PCP - General Family Medicine 01/15/17 documented as of this encounter
--- OUTSIDE RECORDS SUMMARY | 2024-08-14 01:22 | XMS_ITS | Encounter Summary ---
[place] [address] Care Team Providers Care Technician Biological Health Name Role Phone Josue Sravani H CADY Primary Care Provider [phone] Encounter Details Date Type Department Care Team (Late st Contact Info) Description 08/12/2020 1:00 PM EST Office Visit [facility] [place] [phone] Isiah Taylor, PT Chronic pain syndrome Social [...] encounter Miscellaneous Notes * Initial Evaluation - Isiah Taylor, PT - 08/12/2020 1:00 PM EST GOALS AND PHYSICAL CAPACITIES EVALUATION ?? The chief complaint requiring rehabilitation is right arm pain burning in nature constant starting in shoulder an moving down arm into 4th and 5th digits. Anatomic diagnoses have included ulnar neuropathy s/p work related accident in 2015. Prior treatments included PT, ulnar nerve transposition, trial of spinal cord stimulator with no relief, ulnar nerve stimulator which made things worse, injections, gabapentin, LDN. ?? Further diagnostic testing is not planned. Additional medical procedures are not. ?? Activity limiting health problems include history of DM Type 2, history of NSTEMI with [address], essentiall HTN. Current work status: Out of work, on worker's compensation. He works for the [employer], [place] [employer] out of [place], [place]. He has a job to return to if able. ?? Personal Function 3 Month Goals ?? Vocational: Unclear, in previous role would 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 Be able to assist with lifting of heavy equipment. Be able to lift 75 lbs. He has some concerns that this may be unrealistic. Recreational: Be able to go hunting for deer using a rifle, be able to dress and pull a 140lbs deerout of the jung. Be able to go 4 wheeling, tolerate the bumps better. Be able to go outside in thecold for over an hour without stopping due to pain. Develop an exercise routine that he can stick to for overall conditioning and health. Daily Living: Be able to engage in restful sleep through the night, be able to to manage his own snow removal, or use a residential lawn specialist. Be able to do his own car maintenance, be able to operate a chainsaw to cut his own firewood, be able to split and stack firewood, be able to help his elderly parents get off the floor if they were to fall. PHYSICAL EVALUATION ?? Resting Vital Signs: BP 103/58 HR 89 ?? Gait: Normal, right shoulder depressed and protected at side. ? AROM (degrees): Lumbar Spine ?? Forward bend (0-90) 80 Backward bend (0-30) 15 SLR Right (0-90) 80 SLR Left (0-90) 75 SLR-Pelvic Motion [smallest SLR - (flex + ext)] 10 ?? Cervical Spine ?? Flexion (0-60) 50 Extension (0-50) ??40 Rot. Right (0-80) ??60 Rot. Left (0-80) 65 Lat. Flex Right (0-45) ??20 Lat. Flex Left (0-45) ??20 ?? Endurance Testing: Modified Ramp Treadmill Test ?? Minutes Completed 4:00 % Grade 10 Speed (mph) 2.1 MET/HR Reason for Stop Point: Difficulty keeping pace ?? Functional Strength Testing: PILE Testing lbs/HR Floor To Waist 20??/ 102 Waist to Shoulder 20??/ Reason for Stop Point: Elbow, forearm and little finger pain ?? During physical testing, participation level was guarded but consistent. Demand Levels of Functional Recovery Goals ?? Current Capacity Limit / Physical Demand Level (PDL) Vocational: Heavy ?? Recreational: Medium-Head ?? Daily Living: Medium ? Light The PDL listed above is based on today's physical performance screening tests. More comprehensive physical testing integrated with clinical findings would be required to derive an accurate work capacity. ASSESSMENT OF FUNCTIONAL TESTING: Based on today???s physical capacity findings Isiah Medrano is a candidate for a multidisciplinary intensive physical rehabilitation program with behavioral support. There are physical limitations ingait, range of motion, walking endurance, functional strength, and overall physical capacities thatinterfere with basic functional tasks and hinder quality of life. I believe that this can improve with functional rehabilitation. PLAN: Pending medical clearance, Isiah has been recommended for the upcoming Functional Latter-Day Program (FRP) that includes 3-4 weeks of intensive PT/OT followed by a minimum of 6 months commitment to self care exercise for improving and maintaining physical capacities. ?? Total time for testin minutes documented in this encounter Plan of Treatment Upcoming Encounters Date Type Department Care Team (Late st Contact Info) Description 08/18/2024 10:30 AM EST Office Visit [place] [address] Rodrigo Conteh MD [facility] [place] [place] [address] documented as of this encounter Visit Diagnoses Diagnosis Chronic pain syndrome Type 2 diabetes mellitus with hyperglycemia, with long-term current use of insulin Vitamin D insufficiency Unspecified vitamin D deficiency Dyslipidemia Other and unspecified hyperlipidemia documented in this encounter Care Teams Technician Biological Health Relationship Specialty Start Date End Date Sravani Salas APRN [address] [place] [address] PCP - General Family Medicine 01/15/17 documented as of this encounter
--- OUTSIDE RECORDS SUMMARY | 2024-08-14 01:22 | XMS_ITS | Encounter Summary ---
Author Organization [facility] [place] [address] Care Team Providers Care Long Term Care Administrator Name Role Phone Sravani Salas APRN Primary Care Provider [phone] Encounter Details Date Type Department Care Team (Late st Contact Info) Description 12/19/2020 Telephone [facility] [place] [phone] Deyanira Holt GRILL PREP COOK [facility] [address] Social History Tobacco Use Types Packs/Day Years [...] encounter Miscellaneous Notes * Telephone Encounter - Deyanira Holt MSW - 12/19/2020 3:27 PM EDT OFFICE OF CARE MANAGEMENT CCM Confirmed with wc tappet adjuster Heaven Herrera at [facility] ph [phone] that she has confirmed booking local lodging at the [facility] [employer] in [facility]. SaturdayDecember 19-Sat. December 23SaturdayDecember 25December 30SaturdayJanuary 01- SaturdayJanuary 06, SaturdayJanuary 08-SaturdayJanuary 13. Update to Mr. Medrano via cell phone [phone] documented in this encounter Plan of Treatment Upcoming Encounters Date Type Department Care Team (Late st Contact Info) Description 08/18/2024 10:30 AM EST Office [place] [address] Rodrigo Conteh MD [facility] [place] [address] documented as of this encounter Visit Diagnoses Not on filedocumented in this encounter Care Teams Long Term Care Administrator Relationship Specialty Start Date End Date Sravani Salas APRN [address] [place] [address] PCP - General Family Medicine 01/15/17 documented as of this encounter
--- OUTSIDE RECORDS SUMMARY | 2024-08-14 01:22 | XMS_ITS | Encounter Summary ---
Author Organization [facility] [place] [address] Care Team Providers Care Sewing Machine Operator Plastic Zipper Name Role Phone Sravani Salas APRN Primary Care Provider [phone] Reason for Visit * Reason Comments Follow-up Gap assessment Encounter Details Date Type Department Care Team (Late st Contact Info) Description 08/12/2020 2:30 PM EST Office Visit [place] [phone] Sandra Hatch ACCOUNTANT CLERK [facility] [place] [address] Pain of right upper extremity Social History [...] Sign Reading Time Taken Comments Blood Pressure 122/66 08/12/2020 1:54 PM EST Pulse 93 08/12/2020 1:54 PM EST Temperature 36.6 ??C (97.8 ??F) 08/12/2020 1:54 PM ES T Respiratory Rate - - Oxygen Saturation 97% 08/12/2020 1:54 PM EST Inhaled Oxygen Concentration - - Weight 95.3 kg (210 lb) 08/12/2020 1:54 PM EST Height 167.6 cm (5' 6) 08/12/2020 1:54 PM EST Body Mass Index 33.89 08/12/2020 1:54 PM EST documented in this encounter Progress Notes * Sandra Hatch M, ACCOUNTANT CLERK - 08/12/2020 2:30 PM EST Chief complaint requiring rehabilitation: Right ulnar neuropathy S: Isiah is being seen today for medical clearance for the Functional Temple program, a graduated exercise program aimed at The patient achieving hisfunctional goals, despite having chronic pain.His pain pattern is described as Right medial forearm pain to the last ulnar digits, He has had treatments including PT, ulnar nerve transposition, trial of spinal cord stimulator with no relief, ulnar nerve stimulator which made things worse, injections, gabapentin, LDN.??. The patient's current goals are : Personal Function 3 Month Goals ?? Vocational:??Unclear, in previous role would 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 Be able to assist with lifting of heavy equipment. Be able to lift 75 lbs.??He has some concernsthat this may be unrealistic. Recreational:?Be able to go hunting for deer using a rifle, be able to dress and pull a 140lbs deer out of the ujng. Be able to go 4 wheeling, tolerate the bumps better. Be able to go outside in the cold for over an hour without stopping due to pain. Develop an exercise routine that he can stick to for overall conditioning and health. ?? Daily Living:?Be able to engage in restful sleep through the night, be able to to manage his ownsnow removal, or use a sales operations. Be able to do his own car maintenance, be able to operate a chainsaw to cut his own firewood, be able to split and stack firewood, be able to help his elderly parents get off the floor if they were to fall. O: Please see Mr Zhou note of today for details of the physical testing and current functional Level. In general the patients current level of functioning is in the light demand level and goals are in the heavy demand level. A: There is a gap between His goals and abilities.This was a counseling visit for 20 minutes out of40 talking about symptom and functional recovery, reviewing the content of FRP, and logistics specific to participation including, travel, lodging and exercise and activity planning . We have mutually decided to proceed withthe following plan. P: Isiah is not a candidate for functional scientologist. He is extremely anxious about even being here today and is absolutely not interested in coming to the hospital or [address]. He does not feel that he could participate in the active pain care service or do anything remotely because he does not have good Internet access and although he has a cell phone he does not feel confident that he could do the necessary processes to participate. We have agreed to have him come back after the Covid crisis is over and have a reevaluation and he is open to that. Sandra Hatch, MS, TRUCK TRAILER MECHANIC-BC, ACCOUNTANT CLERK Nurse practitioner Pain management [facility] . documented in this encounter Plan of Treatment Upcoming Encounters Date Type Department Care Team (Late st Contact Info) Description 08/18/2024 10:30 AM EST Office [place] [address] Rodrigo Conteh MD [facility] [place] [address] documented as of this encounter Visit Diagnoses Diagnosis Pain of right upper extremity Type 2 diabetes mellitus with hyperglycemia, with long-term current use of insulin Vitamin D insufficiency Unspecified vitamin D deficiency Dyslipidemia Other and unspecified hyperlipidemia documented in this encounter Care Teams Sewing Machine Operator Plastic Zipper Relationship Specialty Start Date End Date Sravani Salas APRN [address] [place] [address] PCP - General Family Medicine 01/15/17 documented as of this encounter
--- OUTSIDE RECORDS SUMMARY | 2024-08-14 01:22 | XMS_ITS | Encounter Summary ---
Author Organization [facility] [place] [address] Care Team Providers Care Label Rewinder Name Role Phone Josue Sravani Rosen CADY Primary Care Provider [phone] Encounter Details Date Type Department Care Team (Late st Contact Info) Description 12/23/2020 11:00 AM EDT Office Visit Functional [facility] Program at [facility] [address] [place] [address] Sandra Hatch APRN [facility] [place] [address] Ulnar neuropathy of right upper extremity Social [...] Notes * Sandra Hatch APRN - 12/23/2020 11:00 AM EDT [id number] Isiah Medrano 12/23/2020 Chief complaint requiring rehabilitation: right ulnar neuropathy FUNCTIONAL YARSANI PROGRAM REHABILITATION TRAINING LECTURE Presenter: Sandra Hatch APRN SPINAL ANATOMY, IMAGING, SURGERY AND REHABILITATION/MEDICATIONS This is a one-hour discussion meant to enhance future encounters with health care providers. Patient expectations of pain relief and diagnosis were matched with a review of differential diagnosis andthe anatomy of spinal pain. Diagnostic tools and their capacities and limitations were reviewed. Absence of clear surgically correctable diagnoses, natural history of acute episode recovery and the nature of disability from chronic pain were reviewed. The role of quota based, goal oriented rehabilitation was reviewed in this context. We then listed all the patients??? current and prior chief complaint-related medications, placing each in its pharmacological category. The personal experiences of the patients in terms of side effects and benefits were reviewed and discussed with references to the biochemical and clinical effects if the drugs. The lack of curative impact of these medications was stressed. The difficulties in determining optimal doses for analgesics were discussed in the context of the varying needs of patientsand regulatory issues involved. The importance of prescribing in the framework of functional goals was reviewed as opposed to focusing entirely on symptom relief. lecture time: 1 hr. documented in this encounter Plan of Treatment Upcoming Encounters Date Type Department Care Team (Late st Contact Info) Description 08/18/2024 10:30 AM EST Office Visit [place] [address] Rodrigo Conteh MD [facility] [place] [address] documented as of this encounter Visit Diagnoses Diagnosis Ulnar neuropathy of right upper extremity Lesion of ulnar nerve Type 2 diabetes mellitus with hyperglycemia, with long-term current use of insulin Vitamin D insufficiency Unspecified vitamin D deficiency Dyslipidemia Other and unspecified hyperlipidemia documented in this encounter Care Teams Label Rewinder Relationship Specialty Start Date End Date Sravani Salas APRN [address] [place] [address] PCP - General Family Medicine 01/15/17 documented as of this encounter
--- OUTSIDE RECORDS SUMMARY | 2024-08-14 01:22 | XMS_ITS | Encounter Summary ---
[place] [address] Care Team Providers Care Cloth Tester Name Role Phone Eleuterio Salasgm Rosen CADY Primary Care Provider [phone] Encounter Details Date Type Department Care Team (Late st Contact Info) Description 05/27/2020 [place]phone [place] [address] Lamar Carrasco MD [facility] [place] [address] Social History Tobacco Use Types Packs/Day Years [...] encounter Miscellaneous Notes * Telephone Encounter - Lamar Carrasco MD - 05/27/2020 7:36 AM EDT Called today to follow up on patient. Pt reports that his hand swelling has resolved and his pain has improved. I informed the patient that if the hand swelling gets worse and/or he experiences worsening pain, to contact us so we can bring him in to clinic today for further evaluation. All questions were answered. Lamar Carrasco MD Pain Management Fellow [address] [address] [facility] documented in this encounter Plan of Treatment Upcoming Encounters Date Type Department Care Team (Late st Contact Info) Description 08/18/2024 10:30 AM EST Office [place] [address] Rodrigo Conteh MD [facility] [place] [address] documented as of this encounter Visit Diagnoses Not on filedocumented in this encounter Care Teams Cloth Tester Relationship Specialty Start Date End Date Sravani Salas APRN [address] [place] [address] PCP - General Family Medicine 01/15/17 documented as of this encounter
--- OUTSIDE RECORDS SUMMARY | 2024-08-14 01:22 | XMS_ITS | Encounter Summary ---
Author Organization [facility] [place] [address] Care Team Providers Care Table Assembler Metal Name Role Phone Sravani Salas APRN Primary Care Provider [phone] Encounter Details Date Type Department Care Team (Late st Contact Info) Description 05/25/2020 8:43 AM EDT - 05/25/2020 10:41 AM EDT [place] [id number] Cleveland Torres MD [facility] [place] [address] PERC IMPLANTATION NEUROSTIMULATOR ELECTRODE ARRAY, EPIDURAL (WRVU 7.15) Social History Tobacco Use Types Packs/Day Years [...] Sign Reading Time Taken Comments Blood Pressure 134/46 05/25/2020 8:03 AM EDT Pulse 77 05/25/2020 8:03 AM EDT Temperature 36.6 ??C (97.9 ??F) 05/25/2020 8:03 AM ED T Respiratory Rate 18 05/25/2020 8:03 AM EDT Oxygen Saturation 99% 05/25/2020 8:03 AM EDT Inhaled Oxygen Concentration - - Weight 93 kg (205 lb) 05/25/2020 8:03 AM EDT Height - - Body Mass Index 33.09 03/11/2020 1:19 PM EDT documented in this encounter Discharge Instructions * Patient Instructions* Lamar Carrasco MD - 05/25/2020 11:41 AM EDT You underwent a spinal cord stimulator implant trial surgery today. You tolerated the procedure well and were monitored in the same day unit closely as you recovered from anesthesia. Your [employer] parts counter representative, Oscar, met with you for teaching and education regarding your spinal cord stimulator prior to discharge from the hospital. You will follow up in the Pain Clinic on 06/01/20 for lead removal as you have 2 sutures, each holding one of the 2 catheters. Keep your dressings clean and dry. You may take sponge baths only. No bending, twisting or lifting of anything more than 10lbs. You can resume your regular diet immediately after surgery and your medications as prescribed. Your incisional pain should improve over the next few days as the healing progresses. If you have any of the following symptoms, please call your doctor or dial 911 to come to the emergency department: paralysis or inability to move your legs or arms, severe chest pain, difficulty breathing, loss of control of your bowels or bladder. The following symptoms may indicate a problem. You should call the office number listed below: fever higher than 101 F, increasing back pain and or leg/arm pain, difficulty passing urine, new numbness or change in symptoms from before the surgery, redness or drainage from incisions, unusual headache, especially if it is much worse when you stand up. If you have any questions, please call . After hours, the answering service will respond and page the doctor in an emergency. Bending Try to avoid bending at the waist as much as possible for 2 weeks after surgery, as this can cause migration of the electrodes before healing has occurred. Bend at the knees. Lifting No lifting anything greater than 10 lbs (a gallon of milk) for the first 2 weeks. This may be increased to approximately 20 pounds after 4-6 weeks. Do not lift anything greater than 20 poundsfor the first 3 months. Housework No housework until 3 weeks after surgery. Sitting Avoid prolonged upright sitting on hard surfaces or long car rides (more than 2 hours) for 2-4 weeks. Standing Start with 10 minute periods and gradually increase to tolerance. Walking Walk to tolerance. If elderly or your general health is poor start with ?? block in the morning and ?? block in the evening, then gradually increase. Try to walk outdoors if possible. Do not overdo and try to walk in the heat of the day. Do not walk so far from home that you are too tired to walk back. Walking is an important part of your rehab. Physical Therapy/gym Physical therapy is usually is not necessary. However, if you job requirementsare vigorous or your general health is poor physical therapy may be ordered after one month or so. Home or Gym exercising Wait 6 weeks and then gradually increase your activities over the following few weeks. You may start walking after surgery. 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 Contact Information: During Work Hours 8am-5pm, Saturday-Saturday call After work hours, weekends, holiday: Call and ask to have the on- call Pain Physicianpaged. DO NOT DRIVE IF YOU FEEL THE STIMULATION. documented in this encounter Medications at Time of Discharge Medication Sig Dispensed Refills Start Date End Date Magtab 84 mg Tablet Sustained ReleaseIndications:3 times a week Indications: 3 times a week 04/07/2020 imipramine (Tofranil) 50 mg Tablet nightly. 02/25/2020 [...] MINI PEN NEEDLE) 31 gauge x 3/16 NeedleIndications:Ty pe 2 diabetes, controlled, with neuropathy [...] (before meals). 15 mL 4 12/28/2019 02/17/2021 metFORMIN (GLUCOPHAGE) 1,000 mg Tablet 2 times daily (with meals). 08/17/2019 05/12/2021 metoprolol succinate XL (TOPROL-XL) 50 mg Tablet Sustained Release 24 hr daily. 05/07/2019 02/17/2021 documented as of this encounter Progress Notes * Vincent Lockwood RN - 05/25/2020 12:16 PM EDT Patient discharge to home. IV removed, site benign. My assessment remains unchanged from my previous assessment. RN Discussed pain management with patient, pain tolerable. Patient has all belongings and supplies needed. Patient received After Visit Summary. These were reviewed, patient verbalizes un derstanding of AVS. All questions answered. Patient encouraged to call with questions or concerns. Patient discharged to home with family. documented in this encounter H&P Notes * Lamar Carrasco MD - 05/25/2020 8:45 AM EDT Patient Name: Isiah Medrano Patient Age: 55 y.o. Birthdate: 1965 Admit date: 05/25/2020 Attending Physician: Cleveland Torres MD PREPROCEDURE HISTORY AND PHYSICAL Date of Visit: May 25, 2020 Chief Complaint: Upper extremity pain HPI: Subjective Isiah Medrano is a 55 y.o. male who presents today for Procedure: Spinal cord stimulator trial Referred by Dr. Torres Most recent HgbA1c 6.2. The patient denies any recent NSAID or anticoagulation. The history is obtained from the patient, and I have reviewed medical records provided by the referring physician and located in the electronic medical record to fill in gaps in the patient's recollection of events, treatments and outcomes. LOCATION: right upper extremity. PAIN LEVEL AT REST 8/10 PAST MEDICAL HISTORY: Past Medical History: Diagnosis Date ??? CIS - Acute non-ST segment elevation myocardial infarction 01/23/2008 s/p NSTEMI with stent to RCA 01/2008 and thrombectomy to t.o. RPL1 -peak troponin 0.09 -EF by cath 65% ??? Diabetes mellitus PAST SURGICAL HISTORY: Past Surgical History: Procedure Laterality Date ??? CREATED BY INTERFACE cardiac stent to RCA 01/2008 Procedure Date: January 2008 ??? CREATED BY INTERFACE Hand operations x2 Procedure Date: Unknown ??? PRO APPLICATION LONG ARM SPLINT SHOULDER TO HAND Right 01/20/2016 SPLINT APPLICATION, LONG ARM performed by Galdino Wood MD at [facility] MAIN OR ??? PRO COLONOSCOPY, DIAGNOSTIC N/A 03/11/2020 COLONOSCOPY, DIAGNOSTIC performed by Sofia Almanza MD at [facility] ENDOSCOPY ??? PRO PERCUT IMPLANT, NEUROELEC, PERIPH NERVE N/A 07/11/2018 IMPLANT NEUROSTIMULATOR ELECTRODES, PERIPHERAL NERVE (WRVU 2.32) performed by Galdino Wood MD at [facility] MAIN OR ??? PRO REVISE ULNAR NERVE AT ELBOW Right 01/20/2016 NEUROPLASTY &/OR TRANSPOSITION, ULNAR NERVE AT ELBOW performed by Galdino Wood MD at [facility] MAIN OR ??? PRO REVISE ULNAR NERVE AT ELBOW Right 08/31/2016 NEUROPLASTY &/OR TRANSPOSITION, ULNAR NERVE AT ELBOW (WRVU 7.26) performed by Galdino Wood MD at [facility] MAIN OR ??? PRO TISSUE GRAFTS, OTHER (E.G. AUTOLOGOUS FAT GRAFT) Right 08/31/2016 TISSUE GRAFT, PARATENON, FAT, DERMIS (OTHER) (WRVU 5.79) performed by Galdino Wood MD at [facility] MAIN OR ALLERGIES: Eptifibatide and Amoxicillin MEDICATIONS: No current facility-administered medications on file prior to encounter. Current Outpatient Medications on File Prior to Encounter Medication Sig Dispense Refill ??? imipramine (Tofranil) 50 mg Tablet nightly. ??? insulin detemir U-100 (Levemir U-100 Insulin) Solution Inject 30 Units subcutaneously every morning. 10 mL 4 ??? insulin lispro (humaLOG KwikPen) Insulin Pen Inject 10-15 Units subcutaneously 3 times daily (before meals). 15 mL 4 ??? ARIPiprazole (ABILIFY) 10 mg Tablet 10 mg daily. ??? DULoxetine DR (CYMBALTA) 60 mg Capsule, Delayed Release(E.C.) daily. ??? ferrous sulfate 325 mg (65 mg iron) Tablet daily. ??? sertraline (ZOLOFT) 100 mg Tablet daily. ??? metFORMIN (GLUCOPHAGE) 1,000 mg Tablet 2 times daily (with meals). ??? metoprolol succinate XL (TOPROL-XL) 50 mg Tablet Sustained Release 24 hr daily. ??? traZODone (DESYREL) 100 mg Tablet nightly. ??? isosorbide mononitrate (IMDUR) 30 mg Tablet Sustained Release 24 hr Take 60 mg by mouth daily. ??? NALTREXONE HCL (NALTREXONE ORAL) Take 1 mg by mouth 4 times daily as needed (pain). Indications: pt takes 4.5 mg daily ??? allopurinol (ZYLOPRIM) 300 mg Tablet Take 300 mg by mouth nightly. ??? aspirin 325 mg Tablet Take 325 mg by mouth daily. Ordered for Heart attack reasons ??? gabapentin (NEURONTIN) 300 mg Capsule Take 900 mg by mouth 4 times daily. 3 ??? lisinopril (PRINIVIL;ZESTRIL) 20 mg Tablet Take 40 mg by mouth nightly. ??? multivitamin (THERAGRAN) Tablet Take 1 tablet by mouth daily. ??? atorvastatin (LIPITOR) 40 mg Tablet Take 40 mg by mouth nightly. ??? glimepiride (AMARYL) 4 mg Tablet Take 1 tablet by mouth 2 times daily. 180 tablet 3 ??? humuLIN R Solution ??? nitroGLYcerin (NITROSTAT) 0.4 mg Tablet, Sublingual ??? insulin needles, disposable, (BD ULTRA-FINE MINI PEN NEEDLE) 31 gauge x 3/16 Needle by Other route. 1 box = 100 insulin PEN needles. 1 each 3 ??? Ibuprofen 200 mg Capsule Take 400 mg by mouth 3 times daily as needed (pain). ??? CHOLECALCIFEROL, VITAMIN D3, (VITAMIN D3 ORAL) Take 1 tablet by mouth nightly. ??? Insulin Syringe-Needle U-100 0.5 mL 31 gauge x 5/16 Syringe 1 each by Misc.(Non-Drug; Combo Route) route 2 times daily. 100 Syringe 11 ??? pen needle, diabetic (NOVOFINE PLUS) 32 gauge x 1/6 Needle 1 each by Misc.(Non-Drug; Combo Route) route 4 times daily as needed. 100 each 11 ??? magnesium oxide (MAG-OX) 400 mg Tablet Take 400 mg by mouth nightly. 3 ??? Blood Sugar Diagnostic (ONE TOUCH ULTRA TEST) test strip 1 each by Other route 4 times daily. Use as instructed 400 each 3 ??? Insulin Syringe-Needle U-100 (BD INSULIN SYRINGE ULT-FINE II) 1 mL 31 x 5/16 Syrg 1 each by Misc.(Non-Drug; Combo Route) route 2 times daily (before meals). 100 each 11 FAMILY HISTORY: Family History Problem Relation Age of Onset ??? Diabetes Brother SOCIAL HISTORY: Social History Socioeconomic History ??? Marital status: Spouse name: Not on file ??? Number of children: Not on file ??? Years of education: Not on file ??? Highest education level: Not on file Occupational History ??? Not on file Social Needs ??? Financial resource strain: Not on file ??? Food insecurity Worry: Not on file Inability: Not on file ??? Transportation needs Medical: Not on file Non-medical: Not on file Tobacco Use ??? Smoking status: Never Smoker ??? Smokeless tobacco: Former User Types: Chew Substance and Sexual Activity ??? Alcohol use: No ??? Drug use: No ??? Sexual activity: Not Currently Lifestyle ??? Physical activity Days per week: Not on file Minutes per session: Not on file ??? Stress: Not on file Relationships ??? Social connections Talks on phone: Not on file Gets together: Not on file Attends baptist service: Not on file Active member of club or organization: Not on file Attends meetings of clubs or organizations: Not on file Relationship status: Not on file ??? Intimate partner violence Fear of current or ex partner: Not on file Emotionally abused: Not on file Physically abused: Not on file Forced sexual activity: Not on file Other Topics Concern ??? Not on file Social History Narrative ??? Not on file ROS: Pt denies recent fever, chills, infection, wounds, hospitalizations, ED visits, use of antibiotics.Otherwise, as described above. PHYSICAL EXAM: BP 134/46 (BP Location (NBP): Left arm) Pulse 77 Temp 36.6 ??C (97.9 ??F) (Temporal) Resp 18 Wt 93 kg (205 lb) SpO2 99% BMI 33.09 kg/m?? Physical Exam Constitutional: Pt oriented to person, place, and time. Appears well-developed and well-nourished. No distress. HENT: Normocephalic and atraumatic. Pulmonary/Chest: Effort normal. Neurological: Alert and oriented to person, place, and time. No cranial nerve deficit. Moves all extremities at least antigravity Skin: Skin is warm and dry. No rash noted. Not diaphoretic. Psychiatric: Normal mood and affect. RADIOLOGIC DATA: Relevant imaging reviewed LABS/DX RESULTS: Last 3 wbc, hgb, hct plt No results for input(s): WBC, HGB, HCT, PLATELET in the last 7068 hours. Last 3 Lytes No results for input(s): NA, K, CL, CO2, BUN, CREATININE in the last 7068 hours. Last 3 LFTs No results for input(s): AST, ALT, ALKPHOS, BILITOT, BILIDIR in the last 7068 hours. Last 3 Coags No results for input(s): PT, INR, PTT in the last 168 hours. Last 3 HgbA1C Recent Labs 03/24/20 1634 HA1C 6.2* ASSESSMENT: Assessment 1. Chronic pain syndrome PLAN: Proceed with planned spinal cord stimulator trial. Addressed all questions and concerns. Risks and benefits discussed with patient. No contraindications to the procedure at this time, will proceed. Lamar Carrasco MD Pain Management Fellow [address] [phone] / [email or web address] documented in this encounter Miscellaneous Notes * Op Note - Cleveland Torres MD - 05/25/2020 11:30 AM EDT [facility] [place] Operative Note Patient Name: Isiah Medrano : [id number] MR#: [id number] Case Date: 05/25/2020 Surgeon: Surgeon(s) and Role: * Cleveland Torres MD - Primary Preoperative diagnosis: Ulner Nerve Neuralgia, right side Postoperative diagnosis: same Procedure(s) (LRB): PERC IMPLANTATION NEUROSTIMULATOR ELECTRODE ARRAY, EPIDURAL (WRVU 7.15) (N/A) MODIFIER,NEUROSTIMULATOR,OTHER (N/A) Anesthesia: MAC Estimated Blood Loss: * No values recorded between 05/25/2020 10:03 AM and 05/25/2020 11:17 AM * Specimens removed during surgery: None Drains: none Surgical Closure: Primary Closure - skin incision is completely closed without any wires, stephany, drains or other devices Disposition: awakened from anesthesia, extubated and taken to the recovery room in a stable condition, having suffered no apparent untoward event. and aroused from sedation, and taken to the recoveryroom in a stable condition Condition: doing well without problems (Please see the Surgical Encounter Summary for any Implant and Specimen details pertinent to this patient.) HPI/Surgical Indications: Mr. Medrano is a 55 y/o M who presents with chronic pain, here for spinal cord stimulator trial placement. Procedure Description: OPERATIVE REPORT: The patient was consented and brought to the operating room. Patient was positioned and anesthetized by anesthesia. After time out procedure and antibiotics administration, the operative site was prepped with chlorhexidine prep and sterile drapes were applied using sterile technique. Using fluoroscopic guidance the skin was marked over the T1 pedicle. Local anesthetic was infiltrated and a [id number] blade was used to make skin incision. Under fluoroscopic guidance, a 14-gauge Tuohy needle was inserted until loss of resistance was seen at T2/T3 level. There was no blood, CSF, or paresthesia not ed. Next a spinal cord stimulator standard 8 electrode lead was advanced until electrode number 1 was located just caudad to the vertebral body at the C2 level right of midline. The same process was repeated but at T1/T2 level to place an identical lead right of midline to the C2 level as well. Intraoperatively the leads were tested for proper placement. The sedation was turned off and the patient discussed the sensation with the parts counter representative from [employer] and was satisfied. The catheter wassutured in place with 3.0 ethibond sutures. The lead sites and skin was covered with chlorihexidinepadded tegaderm. The generator and leads were taped in place. The patient tolerated the procedure well. No complications were noted at this time. The patient was neurologically intact at the end of the procedure. ?? Procedure was performed under direct supervision of my attending physician, Dr. Cleveland Torres MD. Infection Bundle used? Ancef 2g given Lamar Carrasco MD Pain Management Fellow [address] [phone] / [email or web address] * Brief Op Note - Cleveland Torres MD - 05/25/2020 11:18 AM EDT Brief Operative Note Patient Name: Isiah Medrano : [id number] MR#: [id number] Case Date: 05/25/2020 Surgeon: Surgeon(s) and Role: * Cleveland Torres MD - Primary * Lamar Carrasco MD - Fellow Preoperative diagnosis: Ulner Nerve Neuralgia Postoperative diagnosis: Ulner Nerve Neuralgia Procedure(s) (LRB): PERC IMPLANTATION NEUROSTIMULATOR ELECTRODE ARRAY, EPIDURAL (WRVU 7.15) (N/A) MODIFIER,NEUROSTIMULATOR,OTHER (N/A) Anesthesia: MAC Findings: neuralgia Complications: none Intake: Intraprocedure Crystalloid Total Intake Lactated Ringers 200.00 mL Total Intake 200 mL Transfusion No data found in the last 1 encounters. Output: Estimated Blood Loss: * No values recorded between 05/25/2020 10:03 AM and 05/25/2020 11:17 AM * Urine Output:: (no urine output recorded) Other Output: (no other output recorded) Drains: none Specimens removed during surgery: None Disposition: aroused from sedation, and taken to the recovery room in a stable condition Condition: doing well without problems Attestation: Case Date: 05/25/2020 I was present and I participated during the entire procedure (does not need to include opening and closing). (Please see the Surgical Encounter Summary for any Implant and Specimen details pertinent to this patient.) Infection Bundle used? No documented in this encounter Plan of Treatment Upcoming Encounters Date Type Department Care Team (Late st Contact Info) Description 08/18/2024 10:30 AM EST Office Visit [place] [address] Rodrigo Conteh MD [facility] [place] [address] documented as of this encounter Procedures Procedure Name Priority Date/Time Associated Diagnosis Comments POCT GLUCOSE Routine 05/25/2020 11:27 AM EDT XR FLUORO NO RAD <1HR - OR USE Routine 05/25/2020 11:24 AM EDT MODIFIER,NEUROSTIMUL ATOR,OTHER 05/25/2020 9:35 AM EDT Ulner Nerve Neuralgia Percut Implnt Neuroelect, Epidural ([id number]) 05/25/2020 9:35 AM EDT Ulner Nerve Neuralgia POCT GLUCOSE Routine 05/25/2020 8:00 AM EDT IMPLANTABLE DEVICES SCAN 05/25/2020 12:00 AM EDT documented in this encounter Results * POCT Glucose (05/25/2020 11:27 AM EDT) Glucose, POC 90 65 - 199 mg/dL [facility] Comment: Supplemental ranges: <140 mg/dL before meals <180 mg/dL all other times of the day Blood specimen (specimen) 05/25/2020 11:27 AM EDT 05/25/2020 11:27 AM EDT Cleveland Torres MD POINT OF CARE TEST O RDERABLES Performing Organization Address [facility] de Phone Number [facility] [place] [address] * XR Fluoro No Rad <1Hr - OR Use (05/25/2020 11:24 AM EDT) Narrative RAD - 05/25/2020 11:24 AM EDT This exam is auto-finalizing. No interpretation was done. Cleveland Torres MD IMG FLUORO ORDERABLE S Performing Organization Address [facility] de Phone Number [place], [place] * POCT Glucose (05/25/2020 8:00 AM EDT) Glucose, POC 140 65 - 199 mg/dL [facility] Comment: Supplemental ranges: <140 mg/dL before meals <180 mg/dL all other times of the day Blood specimen (specimen) 05/25/2020 8:00 AM EDT 05/25/2020 8:00 AM EDT Cleveland Torres MD POINT OF CARE TEST O LIBORIO Performing Organization Address [facility] de Phone Number [facility] [place] [address] * SCAN DOC: IMPLANTABLE DEVICES (05/25/2020 12:00 AM EDT) Narrative 05/25/2020 12:00 AM EDT Ordered by an unspecified provider. Scanning Provider MEDIA MGR SCAN EXT O RDR/RSLT documented in this encounter Visit Diagnoses Not on filedocumented in this encounter Administered Medications Inactive Administered Medications - up to 3 most recent administrations Medication Order MAR Action Action Date Dose Rate Site lactated ringers infusion 1,000 mL, at 100 mL/hr, Intravenous, CONTINUOUS, Starting on Sat05/25/20 at 0815, Until Sat05/25/20 at 1214, Day of Surgery (Day of Procedure) New Bag 05/25/2020 8:12 AM EDT 1,000 mLs 100 mL/hr lidocaine-EPINEPHrin e 1 %-1:100,000 injection ONCE PRN, Starting on Sat05/25/20 at 1109, Until Sat05/25/20 at 1417, Intra-Operative (Intra-Procedure), Routine Given 05/25/2020 11:09 AM EDT 11 mLs 19- Surgical Site documented in this encounter Active and Recently Administered Medications Times are shown in EDT. Scheduled Medication Order 05/23/2020 05/24/2020 05/25/2020 ceFAZolin (Ancef) 1 g in dextrose 5% 50 mL infusion (COMPLETED) 2 g, Intravenous, ONCE, 1 dose, On Sat05/25/20 at 0915, Administer over 30 Minutes, Indication for (Active or Suspected): Prophylaxis 0953 (Given - Provid er: Deanne Seaman) Continuous Medication Order 05/23/2020 05/24/2020 05/25/2020 lactated ringers infusion (CANCELED) 1,000 mL, at 100 mL/hr, Intravenous, CONTINUOUS, Starting on Sat05/25/20 at 0815, Until Sat05/25/20 at 1214, Day of Surgery (Day of Procedure) 0812 (New Bag - Prov ider: Aleah Garcia RN) PRN Medication Order 05/23/2020 05/24/2020 05/25/2020 lidocaine-EPINEPHrine 1 %-1:100,000 injection (CANCELED) ONCE PRN, Starting on Sat05/25/20 at 1109, Until Sat05/25/20 at 1417, Intra-Operative (Intra-Procedure), Routine 1109 (Given - Provid er: Cleveland Torres MD) documented in this encounter Care Teams Table Assembler Metal Relationship Specialty Start Date End Date Sravani Salas APRN [address] [place] [address] PCP - General Family Medicine 01/15/17 documented as of this encounter
--- OUTSIDE RECORDS SUMMARY | 2024-08-14 01:22 | XMS_ITS | Encounter Summary ---
Author Organization [facility] [place] [address] Care Team Providers Care Table Setter Name Role Phone Sravani Salas CADY Primary Care Provider [phone] Encounter Details Date Type Department Care Team (Late st Contact Info) Description 08/05/2020 Telephone [place] [address] Denia Yeboah Social History Tobacco Use Types Packs/Day Years [...] encounter Miscellaneous Notes * Telephone Encounter - Denia Yeboah - 08/05/2020 2:13 PM EST Workers Compensation Demographics: Insurance: [facility] Spin Tank Tender; Carla [phone] / fax [phone] DOI: 01-10-15 documented in this encounter Plan of Treatment Upcoming Encounters Date Type Department Care Team (Late st Contact Info) Description 08/18/2024 10:30 AM EST Office [place] [phone] Rodrigo Conteh MD [facility] [place] [address] documented as of this encounter Visit Diagnoses Not on filedocumented in this encounter Care Teams Table Setter Relationship Specialty Start Date End Date Sravani Salas APRN [address] [place] [address] PCP - General Family Medicine 01/15/17 documented as of this encounter
--- OUTSIDE RECORDS SUMMARY | 2024-08-14 01:22 | XMS_ITS | Encounter Summary ---
Author Organization [facility] [place] [address] Care Team Providers Care Cabinet Mounter Name Role Phone Sravani Salas APRN Primary Care Provider [phone] [phone] Encounter Details Date Type Department Care Team (Late st Contact Info) Description 12/20/2020 1:00 PM EDT Office Visit Functional Mandaen Program at [facility] [address] [place] [address] Isiah Taylor, PT Pain of right upper [...] Initial Evaluation - Isiah Taylor, PT - 12/20/2020 1:00 PM EDT Functional Mandaen Program (Day 1) Physical Therapy Examination Personal Function 3 Month Goals Vocational: Unclear, in previous role would 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 Be able to assist with lifting of heavy equipment. 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 Be able to do his own car maintenance, be able to operate a chainsaw to cut his own firewood, be able to split and stack firewood, be able to help his elderly parents get off the floor if they were to fall. The chief complaint requiring rehabilitation is??right arm pain burning in nature constant startingin shoulder an moving down arm into 4th and 5th digits. ??Anatomic diagnoses have included ulnar neuropathy s/p work related accident in 2015. ??Prior treatments included PT, ulnar nerve transposition, trial of spinal cord stimulator with no relief, ulnar nerve stimulator which made things worse, injections, gabapentin, LDN.?? Most recent imaging has revealed no surgical lesion and surgery has been waived. Additional activity limiting health problems include history of DM Type 2, history of NSTEMI with tents place, essentiall HTN.. Current work status: Out of work, on worker's compensation since 01/10/2015. He works for the [employer] out of [place], [place]. ??He believes he has a job to return to if able. PT Objective Measures Endurance and Flexibility Test [...] for Stopping (if applicable): Shortness of Breath Sensation: Light touch dysesthetic and painful to light touch in R medial forearm and little finger. All other dermatomes symmetrically intact. Reflexes Right Left Tricep normal normal Brachioradialis normal normal Patella hyporeflexic hyporeflexic Achilles normal normal AROM (degrees) shoulder flexion right 160, left 160. UE Strength Right Left Shoulder abduction 4/5 4/5 Shoulder ER 4/5 4/5 Elbow flexion 4/5 4/5 Elbow extension 4/5 5/5 Wrist ulnar deviation 5/5 5/5 Finger abduction 4/5 5/5 LE Strength Right Left Hip flexion 5/5 5/5 Knee extension 5/5 5/5 Dorsiflexion 5/5 5/5 Hallux extension 5/5 5/5 Plantarflexion 5/5 5/5 Neural tension screening: Seated straight leg raise right negative, left negative. Assessment Isiah Medrano has mild range of motion deficits and mild strength deficits with baseline physical testing. Treadmill testing shows fair tolerance for endurance activities. Posture and gait observations reveal little antalgic deviations. Reports chief complaint feeling worse with light touch, using his R hand and somewhat better with rest. Further testing of repeated movements for possible self care strategies may be warranted. FRP Goals for Physical Therapy will focus on regaining functional status and functional goals stated above, but objectively Isiah will have: Normal flexibility, normal strength, improved cardiovascular fitness, the ability to self manage this pain problem, and the ability to monitor and progress an i ndividualized HEP. Plan Isiah will start with FRP for functional and restorative training. Home exercise instruction will compliment daily conditioning. See enclosed FRP protocol for further details. Total time for testin minutes documented in this encounter Plan of Treatment Upcoming Encounters Date Type Department Care Team (Late st Contact Info) Description 08/18/2024 10:30 AM EST Office [place] [address] Rodrigo Conteh MD [facility] [place] [address] documented as of this encounter Visit Diagnoses Diagnosis Pain of right upper extremity Ulnar neuropathy of right upper extremity Lesion of ulnar nerve Type 2 diabetes mellitus with hyperglycemia, with long-term current use of insulin Vitamin D insufficiency Unspecified vitamin D deficiency Dyslipidemia Other and unspecified hyperlipidemia documented in this encounter Care Teams Cabinet Mounter Relationship Specialty Start Date End Date Sravani Salas APRN [address] [place] [address] PCP - General Family Medicine 01/15/17 documented as of this encounter
--- OUTSIDE RECORDS SUMMARY | 2024-08-14 01:22 | XMS_ITS | Encounter Summary ---
Author Organization [place] [address] Care Team Providers Care Grain Grader Name Role Phone Sravani Salas APRN Primary Care Provider [phone] Reason for Visit * Reason Comments Right Arm Pain Encounter Details Date Type Department Care Team (Late st Contact Info) Description 12/23/2020 8:00 AM EDT Office Visit Functional Mosque Program at [facility] [address] [place] [address] Briana Crane, OT Pain of right upper [...] - Therapy - Briana Crane OT - 12/23/2020 8:00 AM EDT P Occupational Therapy Note [facility] Day 4 Protocol Subjective: Mr. Medrano returns today for a scheduled follow up appointment with [facility]. He reports that the lifting and bending exercises are getting easier. Objective: Refer to [facility] protocol for details and explanation of each activity. Mr. Medrano participated in the following activities: Functional Therapy: 1. AM Session of functional conditioning ( X ) Completed ( ) Not Completed 2. PM Session of functional conditioning ( X ) Completed ( ) Not Completed Instructed in 20 minutes of mindfulness meditation activity focusing on focused breathing. Participated in 15 minutes of unguarded lyles bag toss activity. Individualized Treatment: Increased resistance levels of functional conditioning exercises according to personal recovery goals. Instructed in proper body mechanics for safe lifting. Monitored and instructed in proper form during functional conditioning exercises and provided cues for safety and efficiency. Provided an overview of a home exercise program for him to keep up with over the weekend to maintain progress to date, focusing on walking, stretching, functional lifting, and mindfulness meditation. Assigned weekend homework of deciding when and where he will exercise each day and assigned target lifting goals for the upcoming weekend. Home exercise program to include once daily functional lifting of forward bend x 20 repetitions and squat x 5 repetitions. Will compliment with once daily walking session, twice daily stretching sessions, and at least one session of mindfulness meditation of his choice. Please see goals in initial OT evaluation [...] provided by both an Occupational Therapist and Senior Relationship Manager, TYRON Gibson. documented in this encounter Plan of Treatment Upcoming Encounters Date Type Department Care Team (Late st Contact Info) Description 08/18/2024 10:30 AM EST Office Visit [facility] at [facility] [place] [address] Rodrigo Conteh MD [facility] [place] [address] documented as of this encounter Visit Diagnoses Diagnosis Pain of right upper extremity Type 2 diabetes mellitus with hyperglycemia, with long-term current use of insulin Vitamin D insufficiency Unspecified vitamin D deficiency Dyslipidemia Other and unspecified hyperlipidemia documented in this encounter Care Teams Grain Grader Relationship Specialty Start Date End Date Sravani Salas APRN [address] [place] [address] PCP - General Family Medicine 01/15/17 documented as of this encounter
--- OUTSIDE RECORDS SUMMARY | 2024-08-14 01:22 | XMS_ITS | Encounter Summary ---
Author Organization [place] [address] Care Team Providers Care Food Mixer Repairer Name Role Phone Sravani Salas APRN Primary Care Provider [phone] [phone] Reason for Visit * Reason Comments Right Arm Pain Encounter Details Date Type Department Care Team (Late st Contact Info) Description 12/22/2020 8:00 AM EDT Office Visit Functional Jew Program at [facility] [address] [place] [address] Briana Crane, OT Pain of right upper [...] - Therapy - Briana Crane OT - 12/22/2020 8:00 AM EDT [facility] Occupational Therapy Note [facility] Day 3 Protocol Subjective: Mr. Medrano returns today for a scheduled follow up appointment with [facility]. He reports that his right arm gets flared up pretty easily and he is hoping to be able to figure out what his limits are while he is here at [facility]. Objective: Refer to [facility] protocol for details and explanation of each activity. Mr. Medrano participated in the following activities: Functional Therapy: 1. AM Session of functional conditioning ( X ) Completed ( ) Not Completed 2. PM Session of functional conditioning ( X ) Completed ( ) Not Completed Instructed in 15 minutes of mindfulness meditation activity focusing on grounded breathing. Participated in a 10 minute treadmill walk including 5% incline and speed range from 1.6-2.4 mph, and 20 minutes of unguarded beach ball volleyball activity. Individualized Treatment: Increased resistance levels of functional conditioning exercises according to personal recovery goals. Instructed in proper body mechanics for safe lifting. Monitored and instructed in proper form during functional conditioning exercises and provided cues for safety and efficiency. Please see goals in initial OT evaluation [...] provided by both an Occupational Therapist and Gi Physician, TYRON Gibson. documented in this encounter Plan of Treatment Upcoming Encounters Date Type Department Care Team (Late st Contact Info) Description 08/18/2024 10:30 AM EST Office Visit [place] [address] Rodrigo Conteh MD [facility] [place] [address] documented as of this encounter Visit Diagnoses Diagnosis Pain of right upper extremity Type 2 diabetes mellitus with hyperglycemia, with long-term current use of insulin Vitamin D insufficiency Unspecified vitamin D deficiency Dyslipidemia Other and unspecified hyperlipidemia documented in this encounter Care Teams Food Mixer Repairer Relationship Specialty Start Date End Date Sravani Salas APRN [address] [place] [address] PCP - General Family Medicine 01/15/17 documented as of this encounter
--- OUTSIDE RECORDS SUMMARY | 2024-08-14 01:22 | XMS_ITS | Encounter Summary ---
Author Organization [place] [address] Care Team Providers Care Video Production Coordinator Name Role Phone Sravani Salas APRN Primary Care Provider [phone] Reason for Visit * Reason Comments Right Arm Pain Encounter Details Date Type Department Care Team (Late st Contact Info) Description 12/20/2020 3:15 PM EDT Office Visit Functional Yarsani Program at [facility] [address] [place] [address] Briana Crane, OT Pain of right upper [...] Initial Evaluation - Briana Crane OT - 12/20/2020 3:15 PM EDT Functional Yarsani Program (Day 1) Occupational Therapy Evaluation Problem List: 1. Unclear Vocational Goal 2. Inability to do usual and customary job and daily activities secondary to decreased lifting strength, functional ROM, limited positional tolerances, fear of re-injury and inability to manage pain. 3. Mr. Medrano lacks effective pain management strategies to use on the job, in the community and athome. 4. Decreased ability to participate in activities of daily living and home maintenance. 5. Excessive muscle guarding prevents spontaneous motions needed for work, handle maker and recreation. Subjective: He reports that the primary reason for seeking Occupational Therapy services through the Functional Yarsani Program is right arm pain and hypersensitivity. Mr. 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 Mr. Medrano reports using the following pain management strategies: distract self by thinking of something else, gabapentin. He has completed the following schooling & additional training: high school grad, CDL (active),has welding certificate Work experience has included the following jobs: [employer] for about 4 years, [employer] for 25 years. 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 Mr. Medrano reports the following return to work plan: plans to use physical capacity results to work with his Voc Rehab counselor for vocational planning. Do you plan to return to work after the program: No Job to return to: unclear He identifies the following barriers to return to work: - unclear if job is still available - physical demands exceed current physical capacities He is working with [employer]IM Coon to assist in the RTW process, for the past 5+ years. Mitchell reports receiving the following benefits: Workers Compensation wage replacement, is in the process of negotiating settlement Self-Care (ADL & IADL) & Leisure Activities: Based on the occupational performance interview of the Hayes Occupational Performance Measure (COPM), Mr. Medrano reports Moderate limitations in self-care and leisure activities. He reports most difficulty with home management activities requiring heavier lifting, vibration (eg lining presser, 4-mahoney, driving) and anything requiring use of dominant or both hands. ANALYSIS of OCCUPATIONAL PERFORMANCE Physical Capacity Test Results: Lifting: (pounds/heart rate) First Day of FRP End of Program 4 Week Follow-Up Repetitive Floor to Waist Repetitive Waist to Shoulder 1-Time Maximum 30 2-Handed Carry - 50 ft 20 Work Demand Level Light The results of this testing must be integrated with clinical findings and other observations to derive a final assessment of work capacity. Hayes Occupational Performance Measure Results - 3 Month Occupational Goals: Occupational Goals at Beginning of FRP* P S Current Status: End of Program P S Current Status:1-month Follow-up P S Work/Productive Activity: Unclear n/a Recreation/Leisure: be able to walk for an hour without a break 4 2 Resume hunting - manage firearm, carry kill, hike in jung 1 1 Be able to ride 4-mahoney over bumpy terrain 1 1 Daily Living (ADL, IADL): be able to sleep for 6-7 hours/night 3 2 be able to help his elderly parents get off the floor if they fall 4 2 be able operate a chain saw to cut firewood, split and stack wood 1 1 be able to maintain his vehicle 1 1 be able to mow the lawn 1 1 Total 16 11 Tota Total Mean score 2 1.38 Mean score Mean scores Lifting Goal: 50 Change from Day 1 Change from Day 1 *Mckeon: P=Performance Score S=Satisfaction with Performance Score Assessment: Mr. Medrano is unable to fully participate in work, recreational, and home-based activities because of decreased functional strength, decreased AROM, decreased endurance, limited positional tolerances, fear of re-injury, and fear of increased pain. He will benefit from participating in afunctional conditioning program designed to increase functional strength, flexibility, and endurance in order to meet functional goals. FRP Goals: While working towards the mcfp (3 month) functional goals listed above, Mr. Medrano will accomplish the following short term goals during the 4- week intensive rehabilitation program. Mr. Medrano will: 1. Develop a viable return to work plan. 2. Demonstrate physical capacities consistent with a Medium work demand level. 3. Demonstrate increased functional strength by lifting 50 pounds floor to waist and 25 pounds waist to shoulder in order to meet work and home lifting goals. 4. Increase his positional tolerances to the level needed for work and home activities. 5. Implement self-care and relapse prevention strategies during the program and at home to control pain. Plan: 1. Functional conditioning 2 times daily to increase physical capacities and allow Mr. Medrano to meet demands of work, recreation and home. 2. Individual counseling / education to develop return to work plan and better understand the return to work process to develop individualized strategies for self-care pain management, relapse prevention, activity / environmental modifications. 3. Daily stretching, relaxation training and walking to increase functional tolerances and allow Mr. Medrano to meet demands of work, recreation and daily activities to meet occupational goals. 4. Therapeutic activities to increase ability to move quickly and tolerate unguarded movements. 45 minutes were spent today to interview Mr. Medrano and test physical capacities. documented in this encounter Plan of Treatment Upcoming Encounters Date Type Department Care Team (Late st Contact Info) Description 08/18/2024 10:30 AM EST Office [place] [address] Rodrigo Conteh MD [facility] [place] [address] documented as of this encounter Visit Diagnoses Diagnosis Pain of right upper extremity Type 2 diabetes mellitus with hyperglycemia, with long-term current use of insulin Vitamin D insufficiency Unspecified vitamin D deficiency Dyslipidemia Other and unspecified hyperlipidemia documented in this encounter Care Teams Video Production Coordinator Relationship Specialty Start Date End Date Sravani Salas APRN [address] [place] [address] PCP - General Family Medicine 01/15/17 documented as of this encounter
--- OUTSIDE RECORDS SUMMARY | 2024-08-14 01:22 | XMS_ITS | Encounter Summary ---
[place] [address] Care Team Providers Care Nutritional Services Director Name Role Phone Sravani Salas APRN Primary Care Provider [phone] Reason for Visit * Reason Onset Date Comments Medication Refill 07/19/2020 Levemir dosage Encounter Details Date Type Department Care Team (Late st Contact Info) Description 07/19/2020 [place] [id number] Karen Jarvis RN Social History Tobacco Use Types Packs/Day [...] encounter Miscellaneous Notes * Telephone Encounter - Karen Jarvis RN - 07/19/2020 9:06 AM EST [facility] called to clarify the Levemir dose. Called the PCP, they had the last dosage from September 2019. Seen in the endocrinology clinic on 12/28/2019, dose of 30 units. A new script was pended, [facility]. documented in this encounter Plan of Treatment Upcoming Encounters Date Type Department Care Team (Late st Contact Info) Description 08/18/2024 10:30 AM EST Office [place] [address] Rodrigo Conteh MD [facility] [place] [address] documented as of this encounter Visit Diagnoses Not on filedocumented in this encounter Care Teams Nutritional Services Director Relationship Specialty Start Date End Date Sravani Salas APRN [address] [place] [address] PCP - General Family Medicine 01/15/17 documented as of this encounter
--- OUTSIDE RECORDS SUMMARY | 2024-08-14 01:22 | XMS_ITS | Encounter Summary ---
Author Organization [facility] [place] [address] Care Team Providers Care Pathology Tech Name Role Phone Sravani Salas APRN Primary Care Provider [phone] [phone] Encounter Details Date Type Department Care Team (Late st Contact Info) Description 12/20/2020 2:30 PM EDT Office Visit Functional Shinto Program at [facility] [address] [place] [address] Asia Hernandez [facility] [place] [address] Pain of right upper extremity Social History [...] Progress Notes * Asia Hernandez PsyD - 12/20/2020 2:30 PM EDT [facility] Active Pain Care, a Service of [facility] Functional Shinto Program FRP First Day Pain Psychology Health & Behavior Assessment CPT Code: 79277 Name: Isiah Medrano Date: 12/20/2020 Time Spent: 45 minutes SUMMARY Isiah is a white male (currently ) from [place], [place] referred to FRP by Cleveland Torres MD for ongoing upper right extremity pain. Seen today by pain psychology for 45-minute health and behavior interview related to history of pain complaint, screening for mood/health behavior disruption, eliciting motivation for program, and determining additional biopsychosocial factors contributing to pain. Purpose of interview to provide biopsychosocial health and behavior assessment and provide motivational enhancement. Patient provided information on the process of this interview and the limits of confidentiality and verbally consented. APCS Status: Has attended pain 101, found it interesting. Pt's perception why he still has pain: Thinks that the nerve is still messed up his arm is sensitive. Doesn't know why it gets cold. 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 Perception of current stress level/stressors: His parents are elderly, he has lived with them from about a year, after some difficulties in his marriage, he thought things were fine before they split. 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 Now that they have split up, he is focused on taking care of himself. Response to stress: Likes to read his ipad, take care of his parents. Thinks that he would tell us,also thinks that he will value being here. Current strategies to cope with stress: Tries to walk every day, for about 20 minutes; Just tries to stay busy. Acknowledges that W/C has been a pain, tries to problem solving. Mood: Mood has been lower, mostly bad days, was diagnosed with depression following he was feeling suicidal about a year ago, he is seeing Earl Junior, they talk about every day stuff, she helps him work his way through. SI/HI: July of last year, he thought the hospitalization to be helpful. Thinks that his therapist has been most helpful. Patient reported MH Hx: His doctor had started giving him an antidepressant, He is not sure if it'shelping consistently. Feels like when he has a better days, he thinks that it is working, a good day looks like he is focused on other things. 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 History of trauma: Recent divorce from his . Could not otherwise point to any other history of trauma Relevant Health behaviors - Etoh: None Cigarettes: None, used to chew but quit after it became too expensive. Other current substance use: Denied Sleep: it's not great - difficulty falling asleep, staying asleep, if he rolls over on his arm, it can bother it. Difficulty falling asleep after that. Usually he will get up, walk around a bit, thinks he gets about 4 hours of sleep per night, has come on slowly over time. If he does sleep, he isable to wake up feeling good, Nutrition: all right I guess - he like bananas, apples; also like brocolli and carrots. He has towatch his blood sugar, he's been more careful with his diet; he is on multiple medications for his diabetes; Exercise: Would like to be able to exercise - not getting much exercise, does not experience hypoglycemia when he exercises. 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 Hoped for outcome from program and why: Wants to be able to do more, be active, exercise regularly,lose - wants to do stuff to help define himself again. Patient concerns: The only concern was how far it was down here. Additional info: I amount to stuff now, but it's just little things. He feels healthier, and wants to get rid of his gut. BEHAVIORAL OBSERVATIONS Presentation: Unaccompanied, on time; Alert, oriented x 3. Appearance: Clean, dressed neatly in casual clothing. Well-groomed. Behavior: Cooperative, appropriate, good eye contact. Pain Behavior: none observed Mood: Neutral stated okay Affect: Congruent. SI/HI: Denied ideation, plan, or intent. Thought process: [place]. Linear, goal-directed, logical. No evidence of hallucinations, ly, or delusions. Speech: Normal rate, rhythm, volume. Judgment/Insight: Adequate for purpose of informed consent ASSESSMENT Diagnosis: Chronic pain Psychosocial factors affecting chronic pain Isiah is appropriate to continue with the FRP. he appears to have limited insight into a biopsychosocial model of pain and a vague understanding of his goals for the program. Isiah is ambivalent about identifying psychosocial stressors that may be contributing to his pain experience. Additional psychoeducation in the program will provide Isiah some understanding of the importance ofaddressing these concerns and suggestions on approaches that may be beneficial. Isiah would benefit from pain neuroscience education, a better understanding of biopsychosocial model of pain and how it applies to his specific concerns. he would also benefit from behavioral experiments and graduated exercise approach to reduce fear/avoidance of movement. PLAN Isiah will continue with FRP program as detailed in First Day treatment plan. documented in this encounter Plan of Treatment Upcoming Encounters Date Type Department Care Team (Late st Contact Info) Description 08/18/2024 10:30 AM EST Office [place] [address] Rodrigo Conteh MD [facility] [place] [address] documented as of this encounter Visit Diagnoses Diagnosis Pain of right upper extremity Type 2 diabetes mellitus with hyperglycemia, with long-term current use of insulin Vitamin D insufficiency Unspecified vitamin D deficiency Dyslipidemia Other and unspecified hyperlipidemia documented in this encounter Care Teams Pathology Tech Relationship Specialty Start Date End Date Sravani Salas APRN [address] [place] [address] PCP - General Family Medicine 01/15/17 documented as of this encounter
--- OUTSIDE RECORDS SUMMARY | 2024-08-14 01:22 | XMS_ITS | Encounter Summary ---
Author Organization [facility] [place] [address] Care Team Providers Care Senior Major Gifts Officer Name Role Phone Sravani Salas APRN Primary Care Provider [phone] Encounter Details Date Type Department Care Team (Latest Contact Info) Description 05/25/2020 7:16 AM EDT - 05/25/2020 12:17 PM EDT Hospital En[place] [address] Cleveland Torres MD [facility] [place] [address] Chronic pain syndrome Discharge Disposition: Home Social History Tobacco Use Types Packs/Day Years [...] Sign Reading Time Taken Comments Blood Pressure 114/69 05/25/2020 12:00 PM EDT Pulse 74 05/25/2020 11:25 AM EDT Temperature 36.5 ??C (97.7 ??F) 05/25/2020 11:25 AM E DT Respiratory Rate 16 05/25/2020 12:00 PM EDT Oxygen Saturation 95% 05/25/2020 12:00 PM EDT Inhaled Oxygen Concentration - - [...] as you recovered from anesthesia. Your [employer] branch sales and service representative, Oscar, met with you for teaching [...] right upper extremity. PAIN LEVEL AT REST 04/11 PAST MEDICAL HISTORY: Past Medical History: Diagnosis [...] ARM performed by Galdino Wood MD at [facility] MAIN OR ??? PRO COLONOSCOPY, DIAGNOSTIC N/A 03/11/2020 COLONOSCOPY, DIAGNOSTIC performed by Sofia Almanza MD at [facility] ENDOSCOPY ??? PRO PERCUT IMPLANT, NEUROELEC, PERIPH NERVE N/A 07/11/2018 IMPLANT NEUROSTIMULATOR ELECTRODES, PERIPHERAL NERVE (WRVU 2.32) performed by Galdino Wood MD at [facility] MAIN OR ??? PRO REVISE ULNAR NERVE AT ELBOW Right 01/20/2016 NEUROPLASTY &/OR TRANSPOSITION, ULNAR NERVE AT ELBOW performed by Galdino Wood MD at [facility] MAIN OR ??? PRO REVISE ULNAR NERVE AT ELBOW Right 08/31/2016 NEUROPLASTY &/OR TRANSPOSITION, ULNAR NERVE AT ELBOW (WRVU 7.26) performed by Galdino Wood MD at [facility] MAIN OR ??? PRO TISSUE GRAFTS, OTHER (E.G. AUTOLOGOUS FAT GRAFT) Right 08/31/2016 TISSUE GRAFT, PARATENON, FAT, DERMIS (OTHER) (WRVU 5.79) performed by Galdino Wood MD at [facility] MAIN OR ALLERGIES: Eptifibatide and Amoxicillin [...] file Gets together: Not on file Attends buddhism service: Not on file Active member of [...] proceed. Lamar Carrasco MD Pain Management Fellow [address] [address] / [facility] documented in this encounter Miscellaneous Notes * Op Note - Cleveland Torres MD - 05/25/2020 11:30 AM EDT [facility] Patient Name: Isiah Medrano : [id number] MR#: [id number] Case Date: 05/25/2020 Surgeon: Surgeon(s) and Role: [...] incision is completely closed without any wires, stephnay, drains or other devices Disposition: awakened from [...] pedicle. Local anesthetic was infiltrated and a blade was used to make skin incision. [...] the patient discussed the sensation with the branch sales and service representative from [place] and was satisfied. The catheter wassutured in [...] given Lamar Carrasco MD Pain Management Fellow [address] [address] / [facility] * Brief Op Note - Cleveland Torres MD - 05/25/2020 11:18 AM EDT Brief Operative Note Patient Name: Isiah Medrano : [id number] MR#: [id number] Case Date: 05/25/2020 Surgeon: Surgeon(s) and Role: [...] 10:30 AM EST Office Visit [place] [phone] Rodrigo Conteh MD [facility] [place] [address] documented as of this encounter Procedures Procedure Name Priority Date/Time Associated Diagnosis Comments POCT GLUCOSE Routine 05/25/2020 11:27 AM EDT XR FLUORO NO RAD <1HR - OR USE Routine 05/25/2020 11:24 AM EDT MODIFIER,NEUROSTIMUL ATOR,OTHER 05/25/2020 9:35 AM EDT Ulner Nerve Neuralgia Percut Implnt Neuroelect, Epidural ([id number]) 05/25/2020 9:35 AM EDT Ulner Nerve Neuralgia POCT GLUCOSE Routine 05/25/2020 8:00 AM EDT IMPLANTABLE DEVICES SCAN 05/25/2020 12:00 AM EDT documented in this encounter Results * POCT Glucose (05/25/2020 11:27 AM EDT) Glucose, POC 90 65 - 199 mg/dL [facility] Comment: Supplemental ranges: <140 mg/dL before meals <180 mg/dL all other times of the day Blood specimen (specimen) 05/25/2020 11:27 AM EDT 05/25/2020 11:27 AM EDT Cleveland Torres MD POINT OF CARE TEST O LIBORIO Performing Organization Address [facility] de Phone Number [facility] [place] [address] * XR Fluoro No Rad <1Hr - OR Use (05/25/2020 11:24 AM EDT) Narrative RAD - 05/25/2020 11:24 AM EDT This exam is auto-finalizing. No interpretation was done. Cleveland Torres MD IMG FLUORO ORDERABLE S Performing Organization Address [facility] de Phone Number [place], [place] * POCT Glucose (05/25/2020 8:00 AM EDT) Glucose, POC 140 65 - 199 mg/dL [facility] Comment: Supplemental ranges: <140 mg/dL before meals <180 mg/dL all other times of the day Blood specimen (specimen) 05/25/2020 8:00 AM EDT 05/25/2020 8:00 AM EDT Cleveland Torres MD POINT OF CARE TEST O LIBORIO Performing Organization Address [facility] de Phone Number [facility] [place] [address] * SCAN DOC: IMPLANTABLE DEVICES (05/25/2020 12:00 AM EDT) Narrative 05/25/2020 12:00 AM EDT Ordered by an unspecified provider. Scanning Provider MEDIA MGR SCAN EXT O RDR/RSLT documented in this encounter Visit Diagnoses Diagnosis Chronic pain syndrome Chronic pain Other chronic pain Type 2 diabetes mellitus with hyperglycemia, with long-term current use of insulin Vitamin D insufficiency Unspecified vitamin D deficiency Dyslipidemia Other and unspecified hyperlipidemia documented in this encounter Administered Medications Inactive Administered Medications - up to 3 most recent administrations Medication Order MAR Action Action Date Dose Rate Site lactated ringers infusion 1,000 mL, at 100 mL/hr, Intravenous, CONTINUOUS, Starting on Sat05/25/20 at 0815, Until Sat05/25/20 at 1214, Day of Surgery (Day of Procedure) New Bag 05/25/2020 8:12 AM EDT 1,000 mLs 100 mL/hr documented in this encounter Active and Recently [...] MD) documented in this encounter Care Teams Senior Major Gifts Officer Relationship Specialty Start Date End Date Sravani Salas APRN [address] [place] [address] PCP - General Family Medicine 01/15/17 documented as of this encounter
--- OUTSIDE RECORDS SUMMARY | 2024-08-14 01:22 | XMS_ITS | Encounter Summary ---
Author Organization [facility] [place] [address] Care Team Providers Care Electric Range Servicer Name Role Phone Sravani Salas APRN Primary Care Provider [phone] [phone] Encounter Details Date Type Department Care Team (Late st Contact Info) Description 12/16/2020 Telephone Orthopaedics at [facility] [place] [phone] Deyanira Holt MEMORIAL ADVISER [facility] [place] [address] Social History Tobacco Use Types Packs/Day Years [...] Telephone Encounter - Deyanira Holt MSW - 12/16/2020 4:54 PM EDT OFFICE OF CARE MANAGEMENT [facility] Spoke with Mr. Medrano as he is recommended and medically cleared for the Functional Moravian program. He confirms he has no barriers to attending the December 20-January 13 FRP. [address] would like local lodging. He will have a car. This [place] a [place] claim. Voc Counselor, Jaiden Sherman. His wc Atty Surjit Eldridge He is advised he will need to arrive for in person Pain 101 on SaturdayDecember 19 from 4-6pm and FRP will be the next day on at [facility]. Agreed to confirm coverage and lodging with his wc carrier. Email to new glass bulb machine adjuster requesting confirmation of coverage in principle andassistance with local lodging. Spoke with wc carrier's Atty Andrea Bazzi ph [phone] fax [phone] who requests updated notes and these are sent and he will work with to explore local lodging. He believes he will authorize FRP. PLAN: 1) confirm coverage and lodging 12/19. Update to patient who will stay flexible but cannot afford to put hotel on his credit card. documented in this encounter Plan of Treatment Upcoming Encounters Date Type Department Care Team (Late st Contact Info) Description 08/18/2024 10:30 AM EST Office [place] [address] Rodrigo Conteh MD [facility] [place] [address] documented as of this encounter Visit Diagnoses Not on filedocumented in this encounter Care Teams Electric Range Servicer Relationship Specialty Start Date End Date Sravani Salas APRN [address] [place] [address] PCP - General Family Medicine 01/15/17 documented as of this encounter
--- OUTSIDE RECORDS SUMMARY | 2024-08-14 01:22 | XMS_ITS | Encounter Summary ---
Author Organization [facility] [place] [address] Care Team Providers Care Global Risk Management Director Name Role Phone Sravani Salas APRN Primary Care Provider [phone] [phone] Encounter Details Date Type Department Care Team (Late st Contact Info) Description 12/12/2020 3:00 PM EDT Office Visit Functional Latter Day Program at [facility] [address] [place] [address] Sandra Hatch APRN [facility] [place] [address] Pain of right upper extremity Social History [...] Progress Notes * Sandra Hatch APRN - 12/12/2020 3:00 PM EDT Chief complaint requiring rehabilitation: Right distal arm, elbow and hand pain and numbness S: Isiah is being seen today for medical clearance for the Functional Latter Day program, a graduated exercise program aimed at The patient achieving hisfunctional goals, despite having chronic pain.His pain pattern is described as Right distal arm, elbow and hand pain and numbness, He has had treatments including PT, ulnar nerve transposition, trial of spinal cord stimulator with no relief,??ulnar nerve stimulator??which made things worse, injections, gabapentin, LDN. ?? Further diagnostic testing is not planned. Additional medical procedures are not planned. He cannot recall the name of his steel rigger and there are no notes in the system related to Recent visits with a steel rigger, or from his PCP addressing his cardiac status and limitations for exercise if any. ?? Activity limiting health problems include history of DM Type 2, history of NSTEMI with [address], essentiall HTN, right knee meniscus tear.. He reports that he recently underwent a GIDEON and reached a settlement and that he is at medical end per his worker's compensation claim. The patient's current goals are : Personal [...] the floor if they were to fall. ?? O: Please see Ms Crane's note of today for details of the physical testing and current functional Level. In general the patients current level of functioning is in the light demand level and goalsare in the medium to heavy demand level. A: There may be a gap between His goals and abilities.This was a counseling visit for 25 minutes out of 40 talking about symptom and functional recovery, reviewing the content of FRP, and logistics specific to participation including, travel, lodging and exercise and activity planning . We have mutually decided to proceed withthe following plan. P: Isiah may be a candidate for functional jew. I have left a message for his PCP to call meregarding his cardiac status. If this appears to be stable, he can be cleared to participate. Sandra Hatch, MS, [employer] [place], MEDIA CENTER DIRECTOR SCHOOL Nurse practitioner Pain management [facility] . Addendum: I spoke with Gloria Mari patient's PCP. She states that he has had angina in the past but no symptoms for the last 5 years. She reports that he saw his steel rigger last in 2019 and was cleared without any further follow-up and cleared without any restrictions for activity. He did cardiac rehab after his stent placement in 2006 or . Ms. Silverman states that his angina, lab work and all exams have been stable for the past several years. Given that I think it is reasonable forhim to participate in the functional jew program. documented in this encounter Plan of Treatment Upcoming Encounters Date Type Department Care Team (Late st Contact Info) Description 08/18/2024 10:30 AM EST Office [place] [address] Rodrigo Conteh MD [facility] [place] [address] documented as of this encounter Visit Diagnoses Diagnosis Pain of right upper extremity Type 2 diabetes mellitus with hyperglycemia, with long-term current use of insulin Vitamin D insufficiency Unspecified vitamin D deficiency Dyslipidemia Other and unspecified hyperlipidemia documented in this encounter Care Teams Global Risk Management Director Relationship Specialty Start Date End Date Sravani Salas APRN [address] [place] [address] PCP - General Family Medicine 01/15/17 documented as of this encounter
--- OUTSIDE RECORDS SUMMARY | 2024-08-14 01:22 | XMS_ITS | Encounter Summary ---
[place] [address] Care Team Providers Care Snake Charmer Name Role Phone JosueSravani wood CADY Primary Care Provider +1 [phone] Encounter Details Date Type Department Care Team (Late st Contact Info) Description 05/25/2020 9:32 AM EDT Anesthesia [place] [id number] Kg Rubio MD [facility] [place] [address] Anesthesia Record Procedure Summary Procedure Name Responsible Anesthesiologist Anesthesia Start Time Anesthesia Stop Time PERC IMPLANTATION NEUROSTIMULATOR ELECTRODE ARRAY, EPIDURAL (WRVU 7.15) (Back) Kg Rubio MD 05/25/20 0932 05/25/20 1127 Events Date Time Event Comment 05/25/2020 0841 0932 Start 0936 AN Verify 0936 An Start Data 0952 Anesthesia Ready 1119 an stop data 1127 Recovery or ICU Handoff Magaly ent care was transferred to the destination unit staff after review of the patient's medical history, current anesthetic/surgical status and plan, according to the Provider Handoff Checklist. 1127 Stop Meds Name Total Midazolam 2 mg Propofol 50 mg Propofol INF 239.48 mg ceFAZolin (Ancef) 1 g in dextrose 5% 50 mL infusion 2 g Lactated Ringers 200 mL * Agents Name O2 Air N2O * Blood No blood administrations on file. Lines, Drains, and Airways Type Details Placement Removal Incision 01/20/16; arm; 08/29/22 (LDA cleanup utility RA#[id number]); 1715 (LDA cleanup utility RA#[id number]) 01/20/16 0000 by Lizzie Jones RN 04/30/22 1715 by Criselda Sofia Incision 07/11/18; 1618; arm; 04/30/22 (LDA cleanup utility RA#[id number]); 1715 (LDA cleanup utility RA#[id number]) 07/11/18 1618 by Lizzie Jones RN 04/30/22 1715 by Criselda Sofia (RETIRED) Peripheral IV Line - Single Lumen 05/25/20; 0958; cephalic vein (lateral side of arm), left; [id number]-zaw-[id number] catheter system; 18 gauge; Yungar SRNA; no longer indicated, site care per policy/procedure; 05/25/20; 1213 05/25/20 0958 by Deanne Seaman 05/25/20 1213 by Vincent Lockwood RN documented in this encounter Social History Tobacco Use Types Packs/Day Years Used Date Smoking Tobacco: Never Smokeless Tobacco: Former Chew Quit: 01/09/1995 Alcohol Use Standard Drinks/Week Comments No 0 (1 standard drink = 0.6 oz pur e alcohol) Sex and Gender Information Value Date Recorded Sex Assigned at Not on file Gender Identity Not on file Sexual Orientation Not on file documented as of this encounter OR Notes * Anesthesia Postprocedure Evaluation - Kg Rubio MD - 05/25/2020 11:32 AM EDT Department of Anesthesiology Post-procedure Note Patient: Isiah Medrano Procedure Summary Date: 05/25/20 Room / Location: [facility] OR [facility] MAIN OR Anesthesia Start: 931 Anesthesia Stop: 1126 Procedures: PERC IMPLANTATION NEUROSTIMULATOR ELECTRODE ARRAY, EPIDURAL (WRVU 7.15) (N/A Back) MODIFIER,NEUROSTIMULATOR,OTHER (N/A ) Diagnosis: (Ulner Nerve Neuralgia) Surgeon: Cleveland Torres MD Responsible Provider: Kg Rubio MD Anesthesia Type: MAC ASA Status: 3 All Anesthesia Providers: Anesthesiologist: Kg Rubio MD ORNAMENTAL PLASTERER HELPER: Kavita Paz CRNA Student Nurse Warehouse Operator: Grammar, Deanne R Vitals Value Taken Time BP 119/67 05/25/20 1130 Temp 36.5 ??C (97.7 ??F) 05/25/20 1125 Pulse 74 05/25/20 1125 Resp 18 05/25/20 1125 SpO2 94 % 05/25/20 1131 Pain Level Vitals shown include unvalidated device data. Patient Location: PACU/[facility] Level of Consciousness: Awake and Alert Pain Management: Satisfactory Analgesia PONV: None Cardiovascular Status: At Baseline Respiratory Status: At Baseline Postoperative Fluid Status: Intravascular EUvolemia Possible Anesthetic Complications: NONE apparent at time of evaluation Final Primary Anesthesia Type: MAC (The anesthetic type performed was the same as planned.) Comments: * Anesthesia Preprocedure Evaluation - Kg Rubio MD - 05/24/2020 4:49 PM EDT Images from the original note were not included. Pre-Anesthesia Evaluation for: Isiah Medrano a 55 y.o. male. Procedure(s): PERC IMPLANTATION NEUROSTIMULATOR ELECTRODE ARRAY, EPIDURAL (WRVU 7.15) MODIFIER,NEUROSTIMULATOR,OTHER Patient Active Problem List Diagnosis ??? Obesity (BMI 30.0-34.9) ??? Iron deficiency anemia ??? Hypomagnesemia ??? CAD (coronary artery disease) S/p stent x2 RCA ??? Chronic pain ??? Diabetes mellitus type 2, insulin dependent ??? Severe episode of recurrent major depressive disorder, without psychotic features ??? Pain of right upper extremity ??? Ulnar neuropathy of right upper extremity ??? Adjustment disorder with depressed mood ??? Hypertension ??? Gout ??? HLD (hyperlipidemia) Past Medical History: Diagnosis Date ??? CIS - Acute non-ST segment elevation myocardial infarction 01/23/2008 s/p NSTEMI with stent to RCA 01/2008 and thrombectomy to t.o. RPL1 -peak troponin 0.09 -EF by cath 65% ??? Diabetes mellitus Past Surgical History: Procedure Laterality Date ??? CREATED BY INTERFACE cardiac stent to RCA 01/2008 Procedure Date: January 2008 ??? CREATED BY INTERFACE Hand operations x2 Procedure Date: Unknown ??? PRO APPLICATION LONG ARM SPLINT SHOULDER TO HAND Right 01/20/2016 SPLINT APPLICATION, LONG ARM performed by Galdino Wood MD at [facility] MAIN OR ??? PRO COLONOSCOPY, DIAGNOSTIC N/A 03/11/2020 COLONOSCOPY, DIAGNOSTIC performed by Sofia Almanza MD at [facility] ENDOSCOPY ??? PRO PERCUT IMPLANT, NEUROELEC, PERIPH NERVE N/A 07/11/2018 IMPLANT NEUROSTIMULATOR ELECTRODES, PERIPHERAL NERVE (WRVU 2.32) performed by Galdino Wood MD at [facility] MAIN OR ??? PRO REVISE ULNAR NERVE AT ELBOW Right 01/20/2016 NEUROPLASTY &/OR TRANSPOSITION, ULNAR NERVE AT ELBOW performed by Galdino Wood MD at [facility] MAIN OR ??? PRO REVISE ULNAR NERVE AT ELBOW Right 08/31/2016 NEUROPLASTY &/OR TRANSPOSITION, ULNAR NERVE AT ELBOW (WRVU 7.26) performed by Galdino Wood MD at [facility] MAIN OR ??? PRO TISSUE GRAFTS, OTHER (E.G. AUTOLOGOUS FAT GRAFT) Right 08/31/2016 TISSUE GRAFT, PARATENON, FAT, DERMIS (OTHER) (WRVU 5.79) performed by Galdino Wood MD at [facility] MAIN OR Social History Tobacco Use ??? Smoking status: Never Smoker ??? Smokeless tobacco: Former User Types: Chew Substance Use Topics ??? Alcohol use: No Social History Substance and Sexual Activity Drug Use No Allergies Allergen Reactions ??? Eptifibatide Other (See Comments) thrombocytopenia ??? Amoxicillin Other (See Comments) Unknown Medications: MAR and/or home medications have been reviewed. Physical Exam: No data found. There is no height or weight on file to calculate BMI. Airway Assessment: Mallampati: II TM distance: >3 FB Neck ROM: full Cardiovascular Assessment: Rhythm: regular Rate: normal Pulmonary Assessment: breath sounds clear to auscultation Dental Assessment: Misc Assessment: Patient is wearing No contact(s). IV access: Peripheral line Anesthesia Plan: ASA 3 MAC, with a(n) intravenous induction 55 yo gentleman with ulnar nerve neuralgia for percutaneous implantation of neurostimulator, epidural Chart and labs reviewed; patient seen and examined PMH significant for Hypertension Hyperlipidemia T2DM CAD s/p NSTEMI 01/2008; RCA stent and thrombectomy; EF by cath 65% Obesity (BMI 30.67) Assessment/Plan: ASA 3 MAC/Propofol sedation; routine monitors (prone) Risks, plans, and procedures discussed with patient who understands and consents; questions and concerns addressed Region - Other Informed Consent: Anesthetic plan and risks discussed with patient. Plan discussed with ORNAMENTAL PLASTERER HELPER. PAT Clinic Note documented in this encounter Plan of Treatment Upcoming Encounters Date Type Department Care Team (Late st Contact Info) Description 08/18/2024 10:30 AM EST Office [place] [address] Rodrigo Conteh MD [facility] [place] [address] documented as of this encounter Visit Diagnoses Not on filedocumented in this encounter Administered Medications Inactive Administered Medications - up to 3 most recent administrations Medication Order MAR Action Action Date Dose Rate Site ceFAZolin (Ancef) 1 g in dextrose 5% 50 mL infusion 2 g, Intravenous, ONCE, 1 dose, On Sat05/25/20 at 0915, Administer over 30 Minutes, Indication for (Active or Suspected): Prophylaxis Given 05/25/2020 9:53 AM EDT 2 g lactated ringers infusion CONTINUOUS PRN, Starting on Sat05/25/20 at 0932, Until Sat05/25/20 at 1127, Anesthesia Intra-op New Bag 05/25/2020 9:32 AM EDT midazolam (PF) (VERSED) multi-dose injection PRN, Starting on Sat05/25/20 at 0932, Until Sat05/25/20 at 1127, Anesthesia Intra-op, Routine Given 05/25/2020 9:32 AM EDT 2 mg propofoL (Diprivan) 10 mg/mL bolus injection (Anesthesia) PRN, Starting on Sat05/25/20 at 0956, Until Sat05/25/20 at 1127, Anesthesia Intra-op Given 05/25/2020 10:06 AM EDT 20 mg Given 05/25/2020 9:56 AM EDT 30 mg propofoL (Diprivan) infusion CONTINUOUS PRN, Starting on Sat05/25/20 at 0954, Until Sat05/25/20 at 1127, Anesthesia Intra-op, Routine Rate/Dose Change 05/25/2020 10:11 AM EDT 75 mcg/kg/min 41.9 mL/hr Rate/Dose Change 05/25/2020 10:10 AM EDT 100 mcg/kg/min 55 .8 mL/hr New Bag 05/25/2020 9:54 AM EDT 150 mcg/kg/min 83.7 mL/h r documented in this encounter Care Teams Snake Charmer Relationship Specialty Start Date End Date Sravani Salas APRN [address] [place] [address] PCP - General Family Medicine 01/15/17 documented as of this encounter
--- OUTSIDE RECORDS SUMMARY | 2024-08-14 01:22 | XMS_ITS | Encounter Summary ---
Author Organization [facility] [place] [address] Care Team Providers Care Supervisor Litharge Name Role Phone Sravani Salas APRN Primary Care Provider [phone] [phone] Encounter Details Date Type Department Care Team (Late st Contact Info) Description 03/15/2020 Telephone [facility] [place] [phone] Deyanira Holt MSW [facility] [place] [address] Social History Tobacco Use Types Packs/Day Years [...] Telephone Encounter - Deyanira Holt MSW - 03/15/2020 2:40 PM EDT OFFICE OF CARE MANAGEMENT CCM Per Denia Clark, [facility] return call to Carla for [facility] ph [phone] / fax [phone]. Invited return call as well as information on job status and job description and any further questions. Monitor for return call and GAP recommendations. documented in this encounter Plan of Treatment Upcoming Encounters Date Type Department Care Team (Late st Contact Info) Description 08/18/2024 10:30 AM EST Office [place] [address] Rodrigo Conteh MD [facility] [place] [address] documented as of this encounter Visit Diagnoses Not on filedocumented in this encounter Care Teams Supervisor Litharge Relationship Specialty Start Date End Date Sravani Salas APRN [address] [place] [address] PCP - General Family Medicine 01/15/17 documented as of this encounter
--- OUTSIDE RECORDS SUMMARY | 2024-08-14 01:22 | XMS_ITS | Encounter Summary ---
Author Organization [facility] [place] [address] Care Team Providers Care Supervisor Wheel Shop Name Role Phone Sravani Salas APRN Primary Care Provider [phone] Encounter Details Date Type Department Care Team (Late st Contact Info) Description 12/23/2020 8:00 AM EDT Office Visit Functional [facility] at [facility] [address] [place] [address] Isiah Taylor, PT Pain of right upper [...] - Therapy - Isiah Taylor, PT - 12/23/2020 8:00 AM EDT P Physical Therapy Note [facility] Day 4 Protocol Subjective: Isiah returns today for a scheduled follow up appointment with [facility]; he reports finds some of the upper body exercises challenging. Objective: Treatment Received: Refer to [facility] protocol for explanation of program/physical therapy details. 1. Therapeutic and Functional Exercise: See [facility] flow sheets for progression. Strengthening and conditioning designed according to personal functional recovery goals and [facility] protocol was: (x) Completed ( ) Not [...] progressing as planned with quota based training. Outlined home exercise program for the weekend to include twice daily stretching sessions. Plan: Return for follow up with [facility] [...] 10:30 AM EST Office [place] [address] Rodrigo Conteh MD [facility] [place] [address] documented as of this encounter Visit Diagnoses Diagnosis Pain of right upper extremity Ulnar neuropathy of right upper extremity Lesion of ulnar nerve Type 2 diabetes mellitus with hyperglycemia, with long-term current use of insulin Vitamin D insufficiency Unspecified vitamin D deficiency Dyslipidemia Other and unspecified hyperlipidemia documented in this encounter Care Teams Supervisor Wheel Shop Relationship Specialty Start Date End Date Sravani Salas APRN [address] [place] [address] PCP - General Family Medicine 01/15/17 documented as of this encounter
--- OUTSIDE RECORDS SUMMARY | 2024-08-14 01:23 | XMS_ITS | Encounter Summary ---
Author Organization [facility] Address [facility] [place] [address] Care Team Providers Care Painter Interior Finish Name Role Phone Sravani Salas APRN Primary Care Provider [phone] Reason for Visit * Psychiatric (Routine) - Closed Specialty Diagnoses / Procedures Referred By Nii hoffman Referred To Contact Psychiatry Diagnoses Ulnar neuropathy of right upper extremity Cleveland Torres MD [facility] [place] [address] Zahida Ocampo, PhD [facility] [place] [address] Referral ID Status Reason Start Date Expiration Date V isits Requested Visits Authorized [id number] Closed Specialty Service Requested 12/31/2018 12/31/2019 1 1 Encounter Details Date Type Department Care Team (Late st Contact Info) Description 04/07/2019 11:00 AM EDT Office Visit Psychiatry and Behavioral Health at [place] [phone] Zahida Ocampo, PhD [facility] [place] [address] Adjustment disorder, unspecified type Social History Tobacco Use Types Packs/Day [...] as of this encounter Progress Notes * Zahida Ocampo, PhD - 04/07/2019 11:00 AM EDT Behavioral Medicine Service Psychological Evaluation for Spinal Cord Stimulator 40 minutes Isiah Medrano is a 54 y.o. year old male who was referred by Dr. Torres for a psychological assessment prior to a spinal cord stimulator implantation. The purpose of this evaluation is to A) Determine any psychological or social barriers to compliance with or benefiting from the spinal cord stimulator procedure or to the device itself, B) To assess whether the patient is properly informed about the procedure and its potential risks and benefits, and C) to make any recommendations regarding psychological interventions. Limits to confidentiality were reviewed at the start of the session. Pain History and Functional status: The patient reports that his right upper extremity pain began after an injury at work on 01/10/2018. He reports that he is s/p 5 surgeries on his arm. He has a PNS implanted but it was not helpful. Average pain level is 7-8 on an 11-point scale with 10 being pain as bad as it could be. The patient reports that using his right arm, riding in a car too long, and cold weather increases his pain while medications can decrease pain. The patient states that he can do ADLs independently. he does not have an exercise regimen. 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 He estimates that he is sitting or resting about 50% of the time. He reports that it takes him a lot longer to do his chores because of the functional limitations assoicated with his right dominant arm injury. he states that he has no difficulty to pace activities. Work status: The patient last worked on the date of injury 01/10/2018. He has an open worker's compensation case. 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 The patient completed high school. The patient has met with vocational rehabilitation but states that he has been put on hold until after he reaches [facility]. Family and Social Situation: The patient is to his supportive spouse of 33 years. he has one son age 18 who has graduated high school and is working. Substance Use: Caffeine: rarely drinks coffee Alcohol: none. Denies any history of problems with alcohol misuse Tobacco: never smoked but did chew until 1994 Other current drug use: none. Denies any history of misuse of prescription medications Patient report of Symptoms and Stressors: Sleep: 1-6 hours of sleep due to worrying about the future at night Energy: low Appetite: Decreased since insulin type change but stated that weight has been stable the past few months Mood:I guess it's okay. Reports down mood 2X/week related to the pain. Moderate anxiety about thefuture and possible inability to work/finances. Anhedonia: mild to moderate difficulty with enjoyment and does not feel that he can afford recreational activities Attention/memory: denies difficulty Motivation to start or complete activities:denies difficulty Suicidality: Denies active suicidal ideation, plan,or intent. Panic attacks:denies difficulty Excessive worry:reports daily worry about finances and work but does not feel it is excessive. Somenervousness but it is not pervasive Trauma History/Possible PTSD Symptoms: denies past history of psychological traumas Any other symptoms: none Current Stressors: loss of work and finances, worries about what he will do in the future about finances, some worry about a mass found above his kidney during the MRI. Will have ultrasound today Psychometric Scores: Patient-reported Psychiatry Initial scores and responses: Psychiatry Responses 04/07/2019 Who is taking survey I am (patient) How are you doing today (1:Very well - 10:Very badly) 5 Taking psychiatric medication No VR12: VR12 Patient Reported Responses 11/22/2017 Health in general Fair Moderate activity - Climb several flights - Accomplished less - Limited in work - Accomplished less-emotional problems - Did work less carefully - Pain impact - [place] calm - Lot of energy - [place] downhearted - Social Impact - VR12 - Physical Component Summary 41.56 VR12 - Mental Component Summary 44.7 AUDIT: AUDIT Patient Reported Responses 04/07/2019 Drinking frequency Never PHQ9: MYD-H PHQ-9 RESPONSES 04/07/2019 Little interest or pleasure Several days Down, depressed, hopeless Several days Trouble sleeping More than half the days Tired or no energy More than half the days Poor appetite or overeating Several days Feeling like a failure Several days Trouble concentrating (newspaper) Several days Moving or speaking slowly Not at all Would be better off Not at all Phq9 Impairment Very difficult PHQ-9 Score 9 (Mild Depression) GAD7: JEANNETTE-7 Patient Reported Responses 04/07/2019 Nervous, anxious (Patient) More than half the days Unable to stop worrying (Patient) More than half the days Worrying about different things (Patient) More than half the days Trouble relaxing (Patient) More than half the days Restless (Patient) Several days Easily annoyed, irritable (Patient) Several days Afraid something awful will happen (Patient) Several days Difficulty (Patient) Very difficult JEANNETTE-7 Score (Patient) 11 (Moderate Anxiety) PTSD: PTSD Patient Reported Responses 04/07/2019 Experienced traumatic event No Drug/Opioid Use and Smoking hx : Drug and Smoking Patient Reported Responses 04/07/2019 Used drug or prescription medication for non medical reason No Smoking / Tobacco Habits I used to smoke / use tobacco Tobacco products Chewing tobacco Psychological Treatment and Symptom History: The patient reports that he has never had psychological counseling in the past. He did take medication for his mood 10-15 years ago and felt anxious at that time. The patient reports no psychiatric hospitalizations. The patient reports no history of suicide attempts or self injurious behavior (e.g., cutting). The patient states that he does not have a current counselor or psychiatrist. Informed Consent: The patient is well-informed about the spinal cord stimulator and the risks associated with the procedure. he is hopeful about the outcome, but understands that level of improvementis not predictable. The patient understands that this does not alter the underlying condition, but that it is treating the resulting pain. Mental Status Examination: General Appearance: Appropriately dressed and groomed, pleasant and cooperative with interview Speech: Normal rate and rhythm Mood:anxious Affect: mood congruent Thought content/process: Thought process logical and linear. Cognitive Function: While not formally tested, function appears to be WNL Conclusions and Recommendations: Isiah Medrano is well informed about the spinal cord stimulator procedure, about its potential risks and benefits, and about his options. There is no evidence that the pain is of a psychological origin. Mr. Medrano is reporting some anxiety related to his injury (e.g., concern about finances, his ability to return to work, etc) as well as anxiety about a mass recently found on his kidney. He will have an ultrasound this afternoon to further explore the mass. His anxiety, however, is not debilitating and he feels that he can manage it. He was encouraged to contact his PCP if the anxiety increases and to seek treatment for it if needed. There are no psychological or social barriers to proceeding with the procedure. Therefore, from this perspective, he is an appropriate candidate for a spinal cord stimulator trial. documented in this encounter Plan of Treatment Upcoming Encounters Date Type Department Care Team (Late st Contact Info) Description 08/18/2024 10:30 AM EST Office Visit [place] [address] Rodrigo Conteh MD [facility] [place] [address] Scheduled Referrals Name Type Priority Associated Diagnoses Order Schedule Referral to Behavioral Health Outpatient Referral Routine Ulnar neuropathy of right upper extremity Ordered: 12/31/2018 documented as of this encounter Visit Diagnoses Diagnosis Adjustment disorder, unspecified type Type 2 diabetes mellitus with hyperglycemia, with long-term current use of insulin Vitamin D insufficiency Unspecified vitamin D deficiency Dyslipidemia Other and unspecified hyperlipidemia documented in this encounter Care Teams Painter Interior Finish Relationship Specialty Start Date End Date Sravani Salas APRN [address] [place] [address] PCP - General Family Medicine 01/15/17 documented as of this encounter
--- OUTSIDE RECORDS SUMMARY | 2024-08-14 01:23 | XMS_ITS | Encounter Summary ---
Author Organization [facility] Address [facility] [place] [address] Care Team Providers Care Mortgage Loan Computation Clerk Name Role Phone Sravani Salas APRN Primary Care Provider [phone] [phone] Reason for Referral * Psychiatric (Routine) - Closed Specialty Diagnoses / Procedures Referred By Contvianey t Referred To Contact Psychiatry Diagnoses Ulnar neuropathy of right upper extremity Garrett Arevalo PA [facility] [place] [address] Sara Felder, PhD [facility] [address] [place] [address] Referral ID Status Reason Start Date Expiration Date V isits Requested Visits Authorized [id number] Closed Consult, Test & Treat 09/08/2019 09/07/2020 1 1 Reason for Visit * Reason Comments Pain Management new patient W/C Inju ry Arm Pain Encounter Details Date Type Department Care Team (Late st Contact Info) Description 09/08/2019 11:00 AM EST Office Visit [facility] at [facility] [place] [address] Garrett Arevalo PA [facility] [place] [address] Ulnar neuropathy of right upper extremity (Primary [...] Sign Reading Time Taken Comments Blood Pressure 93/66 09/08/2019 10:47 AM EST Pulse 83 09/08/2019 10:47 AM EST Temperature - - Respiratory Rate - - Oxygen Saturation 99% 09/08/2019 10:47 AM EST Inhaled Oxygen Concentration - - Weight 83.9 kg (185 lb) 09/08/2019 10:47 AM EST Height - - Body Mass Index 29.86 06/10/2019 8:32 PM EDT documented in this encounter Patient Instructions * Patient Instructions* Garrett Arevalo PA - 09/08/2019 11:00 AM EST Interventions: ?? None at this time. Will consider SCS when he sees Medications: ?? Will provide new prescription for LDN today. (4.5mg capsules) Instructions for commencing low dose naltrexone therapy are the following and have been included inthe patient's written and printed after visit summary: Patient must be opioid free for minimum of 5days prior to starting LDN. Take one capsule QD at bedtime. When used at low doses, naltrexone functions as a microglial attenuating therapy that decreases inflammation within the central nervous system and improves chronic pain without causing habituation and dependence. -Mari Glez et al. The use of low-dose naltrexone (LDN) as a novel anti- inflammatory treatment for chronic pain. Clin Rheumatol (2014) 33:451-459 -Mari Glez, et al. Fibromyalgia symptoms are reduced by low dose naltrexone: a airline pilot flight instructor study. Pain Medicine (200() 10:663-672 Low-Dose Naltrexone (LDN)-Review of Therapeutic Utilization. Paul Danielson, Racheal B. Med Sci ([place]). 2018 May 23;6(4). pii: E82. doi: 10.3390/[id number]. Review. Low dose naltrexone is a compounded medication that must be made at this low dosage per capsule by a compounding pharmacy. As a compounded medication is unlikely to be covered by insurance. The compounding pharmacy will contact you with a jenkins and will ask how you would like to pay. They will thenship the medication to your address. ? Rehabilitation: ?? None at this time Psychological: ?? Referral for new psychological evaluation for SCS trial Follow up: ?? F/u visit scheduled with Dr Torres for 10/28/2019 Provided WC letter (hard copy) for Mr Medrano for today's visit. documented in this encounter Progress Notes * Garrett Arevalo PA - 09/08/2019 11:00 AM EST [facility] Date of Consultation: September 08, 2019 Referring Physician: Sravani Salas APRN Reason for request of consultation: Right upper extremity pain Chief Complaint: Right upper extremity pain History of Present Illness: Mr. Medrano is a 54 y.o. year-old male who presents to the pain clinic for right upper extremity pain. He was seen by Dr Torres in our Center 01/28/2019 where this was briefly noted: The patient was here today meeting with [facility] community health program representative. They confirm that there was no further programming they could use to maximize the peripheral nerve stimulator. I reconfirmed that we had ordered an MRI of thoracic and cervical spine as well as psychological evaluation for cervical spinal cord stimulator placement. We will move forward with that plan. ?? Mr. Medrano went on to have that psychological evaluation for SCS and was deemed to not have any impediments to proceeding. He was then approved by the AIC committee for a SCS trial. That trial, however, was not scheduled. Mr. Medrano had an intervening hospitalization and it appeared he would subsequently need another psychological evaluation prior to proceeding with a SCS trial. A more recent phone message in the medical record notes that Mr Medrano had not been taking his LDN for a couple of months. He has an appointment with Dr Torres 10/28/2018 but was scheduled to return sooner for reevaluation. He says he and his . So, he didn't have access to the medication because it was at her place. That was at least three months ago and he's not been able to refill the prescription. He felt it was helping a little. PAIN ASSESSMENT: Description: burning Location: a little bit in shoulder area, but down right arm into hand--affecting 4th and 5th digitsonly in hand Weakness, numbness, tingling: numbness/tingling almost seems normal now Other associated symptoms: shooting pains down RUE Alleviating factors: none identified (tried moving the ulnar nerve and that didn't help) Aggravating factors: moving it/using it makes it worse Pain today: 8/10 Best in past week: 8/10 Worst in past week:8/10 PAST THERAPIES: Acetaminophen: doesn't help NSAID: doesn't help Opioids: tried years ago and didn't help Storage of opioids:na Antidepressants: on cymbalta now Anticonvulsants: on gabapentin now 3600mg daily Muscle relaxants: none Topicals: compounded ointment--helps a little Herbal supplements/vitamins: none Injections: had injections stellate and an ulnar nerve block--neither worked Surgery:relocation surgery on ulnar nerve Physical Therapy: that helped some--WC spoke with Dr Wood and PT was stopped TENS: none Acupuncture: none Chiropractic: none Massage: none CBT,Meditation/Imagery: none Yoga/Duran Chi/ Movement: none Marijuana: none Other: none Current Medications: Outpatient Medications Marked as Taking for the 09/08/19 encounter (Office Visit) with German Arevalo PA Medication Sig Dispense Refill ??? ARIPiprazole (ABILIFY) 10 mg Tablet 10 mg daily. ??? DULoxetine DR (CYMBALTA) 60 mg Capsule, Delayed Release(E.C.) daily. ??? ferrous sulfate 325 mg (65 mg iron) Tablet daily. ??? nitroGLYcerin (NITROSTAT) 0.4 mg Tablet, Sublingual ??? sertraline (ZOLOFT) 100 mg Tablet daily. [...] insulin PEN needles. 1 each 3 ??? [DISCONTINUED] flash glucose scanning reader (GetIntent NEAL 14 DAY READER) Misc As instructed1 each 1 ??? insulin regular CONCENTRATE U-500 (HUMULIN R U-500) 500 unit/mL Solution Inject 150-175 Units subcutaneously 2 times daily. May adjust the dose up to 25 units until fasting BG at target of 90-180. 80 mL 3 ??? insulin U-500 syringe-needle 1/2 mL 31 gauge x 15/64 Syringe 1 each by Misc.(Non-Drug; Combo Route) route 2 times daily. THIS IS AN INSULIN SYRINGE SPECIFICALLY FOR U-500 DOSING 180 Syringe 3 ??? Ibuprofen 200 mg Capsule Take [...] Tablet Take 325 mg by mouth daily. ??? gabapentin (NEURONTIN) 300 mg Capsule Take [...] times daily (before meals). 100 each 11 Allergies & Adverse Reactions: Eptifibatide and Amoxicillin Problem List: Patient Active Problem List Diagnosis Code ??? [...] mellitus type 2, insulin dependent E11.9, Z79.4 Social History: Social History Socioeconomic History ??? Marital status: Spouse name: Not on file ??? Number of children: Not on file ??? Years of education: Not on file ??? Highest education level: Not on file Occupational History ??? Not on file Social Needs ??? Financial resource strain: Not on file ??? Food insecurity: Worry: Not on file Inability: Not on file ??? Transportation needs: Medical: Not on file Non-medical: Not on file Tobacco Use ??? Smoking status: Never Smoker ??? Smokeless tobacco: Former User Types: Chew Substance and Sexual Activity ??? Alcohol use: No ??? Drug use: No ??? Sexual activity: Not Currently Lifestyle ??? Physical activity: Days per week: Not on file Minutes per session: Not on file ??? Stress: Not on file Relationships ??? Social connections: Talks on phone: Not on file Gets together: Not on file Attends zoroastrianism service: Not on file Active member of club or organization: Not on file Attends meetings of clubs or organizations: Not on file Relationship status: Not on file ??? Intimate partner violence: Fear of current or ex partner: Not on file Emotionally abused: Not on file Physically abused: Not on file Forced sexual activity: Not on file Other Topics Concern ??? Not on file Social History Narrative ??? Not on file Family History Family History Problem Relation Age of Onset ??? Diabetes Brother Past Medical History: Past Medical History: Diagnosis Date ??? Diabetes mellitus Past Surgical History: Past Surgical History: Procedure Laterality Date ??? CREATED BY INTERFACE cardiac stent to RCA 01/2008 Procedure Date: January 2008 ??? CREATED BY INTERFACE Hand operations x2 Procedure Date: Unknown ??? PRO APPLICATION LONG ARM SPLINT SHOULDER TO HAND Right 01/20/2016 SPLINT APPLICATION, LONG ARM performed by Galdino Wood MD at [facility] MAIN OR ??? PRO PERCUT IMPLANT, NEUROELEC, PERIPH NERVE N/A 07/11/2018 IMPLANT NEUROSTIMULATOR ELECTRODES, PERIPHERAL NERVE (WRVU 2.32) performed by Galdino Wood MD at [facility] MAIN OR ??? PRO REVISE ULNAR NERVE AT ELBOW Right 01/20/2016 NEUROPLASTY &/OR TRANSPOSITION, ULNAR NERVE AT ELBOW performed by Galdino Wood MD at [facility] OR ??? PRO REVISE ULNAR NERVE AT ELBOW Right 08/31/2016 NEUROPLASTY &/OR TRANSPOSITION, ULNAR NERVE AT ELBOW (WRVU 7.26) performed by Galdino Wood MD at [facility] MAIN OR ??? PRO TISSUE GRAFTS, OTHER (E.G. AUTOLOGOUS FAT GRAFT) Right 08/31/2016 TISSUE GRAFT, PARATENON, FAT, DERMIS (OTHER) (WRVU 5.79) performed by Galdino Wood MD at [facility] OR Functional Status Work-- on Workers Comp ADL's---doing daily activies Lives at home with parents now. The [place] Prescription Monitoring Program was checked. The number of prescriptions reported was 0. Review of Systems: Positive notes are boldfaced. Constitutional Denies Fevers, Chills, loss of weight HEENT Denies new hearing problems, vision problems or dental problems. Cardiovascular Denies chest pain, palpitations, [place], hypertension. Respiratory Denies cough, SOB, wheezing, asthma. GI Denies N/V, Hepatits, yellow jaudice, liver problems. Stool incontinence Denies kidney problems, infections, blood in urine, or kidney stones Musculoskeletal Denies other joint pains, see HPI. Neurologic Denies seizures, convulsions, stroke, shock, frequent headaches, dizziness or passing out. Sleep is okay. Psychiatric Denies depression on medication for this and feels it's controlled, anxiety, stress or suicidal ideation. Hematologic Denies prolonged bleeding, easy bruising, lymph gland swelling Dermatologic Denies rashes, or other skin problems RISK ASSESSMENT: Smoking: none Alcohol:How often do you have a drink containing alcohol ? none Are you now or have you ever used illegal drugs or used a prescription drug for a non-medical reason?none Are you now or in past received methadone or suboxone (buprenorphine) for substance abuse? none Ever participated in drug or alcohol rehabilitation program? none Share your pain medications or accepted pain medications from family/friends?none Ever been incarcerated? none Opioid Risk Tool Female Male 1. Family history of Substance Abuse Alcohol [] 1 [] 3 Illegal Drugs [] 2 [] 3 Prescription Drugs [] 4 [] 4 2. Personal History of Substance Abuse Alcohol [] 3 [] 3 Illegal Drugs [] 4 [] 4 Prescription Drugs [] 5 [] 5 3. Age (justyna box if 16-45) [] 1 [] 1 4. History of Preadolescent Sexual Abuse [] 3 [] 0 5. Psychological Disease Attention Deficit Disorder, Obsessive Compulsive D/o, Bipolar, Schizophrenia [] 2 [] 2 Depression [] 1 [x] 1 TOTAL: 1 Comments about ORT in relation to this patient: 1 ORT score, low risk Opioid Risk Category: Low risk 0-3 Moderate risk 4-7 High risk >=8 Physical Exam: Most Recent Vitals: 09/08/19 1047 BP: 93/66 Pulse: 83 SpO2: 99% PainSc: 7 Appearance/ Behavior Well groomed, good eye contact, relaxed, cooperative, normal speech, no acute distress. HEENT Sclera non-icteric, conjunctiva clear. Hearing grossly intact. Lungs Clear to ausculation bilaterally Cardiovascular Regular rate and rhythm Psychiatric Pleasant mood, cooperative, oriented to person, place, and date Extremities No peripheral edema or digital cyanosis Skin No rash, lesions or ulcers Psych Alert and oriented to person, place and time, cooperative, pleasant affect MSK Tenderness to palpation of the R olecranon. No tenderness over sub acromial area. No symptoms with overhead reach. Feels tightness when flexing elbow but that does not increase burning pain sensation. Neuro No apparent sensory deficits in upper extremities. Imaging & Other Studies: No new studies for this visit. Assessment: Mr. Medrano is a 54 y.o. year-old male who presents to the pain clinic for right upper extremity pain. He was seen by Dr Torres in our Center 01/28/2019 where this was briefly noted: The patient was here today meeting with [facility] community health program representative. They confirm that there was no further programming they could use to maximize the peripheral nerve stimulator. I reconfirmed that we had ordered an MRI of thoracic and cervical spine as well as psychological evaluation for cervical spinal cord stimulator placement. We will move forward with that plan. ?? Mr. Medrano went on to have that psychological evaluation for SCS and was deemed to not have any impediments to proceeding. He was then approved by the [facility] committee for a SCS trial. That trial, however, was not scheduled. Mr. Medrano had an intervening hospitalization and it appeared he would subsequently need another psychological evaluation prior to proceeding with a SCS trial. A more recent phone message in the medical record notes that Mr Medrano had not been taking his LDN for a couple of months. He has an appointment with Dr Torres 10/28/2018 but was scheduled to return sooner for reevaluation. He says he and his . So, he didn't have access to the medication because it was at her place. That was at least three months ago and he's not been able to refill the prescription. He felt it was helping a little. He reports that his parents say he is a different person (lack of depression) recently. He continues to have the same ulnar distribution symptoms in the RUE as he has had in the past. On exam he is tender over the R olecranon. There are no other remarkable findings. He is confused about what happened with the plan for a SCS device. He was waiting to hear about scheduling and never heard back. My review of the medical record indicates that Mr Medrano had a psychiatric hospitalization in the interim that postponed things. He was reportedly going to need a new psychological evaluation prior to proceeding to a SCS trial and that psychological evaluation was neverscheduled. I will provide such a referral today. Mr Medrano also lost track of his LDN when he from his of 33 years about 3 months ago. He did not know where to contact for a refill. I will provide him with a new prescription today. He has a visit scheduled with Dr Torres for 10/28/2019. So, that will be his follow up to today's visit. He looks forward to discussing SCS with Dr Torres at that time. Recommendations: Interventions: ?? None at this time. Will consider SCS when he sees Medications: ?? Will provide new prescription for LDN today. (4.5mg capsules) Instructions for commencing low dose naltrexone therapy are the following and have been included inthe patient's written and printed after visit summary: Patient must be opioid free for minimum of 5days prior to starting LDN. Take one capsule QD at bedtime. When used at low doses, naltrexone functions as a microglial attenuating therapy that decreases inflammation within the central nervous system and improves chronic pain without causing habituation and dependence. -Mari Glez et al. The use of low-dose naltrexone (LDN) as a novel anti- inflammatory treatment for chronic pain. Clin Rheumatol (2014) 33:451-459 -Mari Glez, et al. Fibromyalgia symptoms are reduced by low dose naltrexone: a airline pilot flight instructor study. Pain Medicine (200() 10:663-672 Low-Dose Naltrexone (LDN)-Review of Therapeutic Utilization. Paul Danielson, Racheal B. Med Sci ([place]). 2018 May 23;6(4). pii: E82. doi: 10.3390/ulzgoc5964650. Review. Low dose naltrexone is a compounded medication that must be made at this low dosage per capsule by a compounding pharmacy. As a compounded medication is unlikely to be covered by insurance. The compounding pharmacy will contact you with a jenkins and will ask how you would like to pay. They will thenship the medication to your address. ? Rehabilitation: ?? None at this time Psychological: ?? Referral for new psychological evaluation for SCS trial Follow up: ?? F/u visit scheduled with Dr Torres for 10/28/2019 Provided WC letter (hard copy) for Mr Medrano for today's visit. Thank you Sravani Salas APRN for allowing my participation in Mr. Isiah Medrano's care. Garrett Arevalo PA-C Physician [employer] [facility] [address] [address] [facility] documented in this encounter Plan of Treatment Upcoming Encounters Date Type Department Care Team (Late st Contact Info) Description 08/18/2024 10:30 AM EST Office [place] [address] Rodrigo Conteh MD [facility] [place] [address] Scheduled Referrals Name Type Priority Associated Diagnoses Order Schedule Referral to Psychiatry Outpatient Referral Routine Ulnar neuropathy of right upper extremity Ordered: 09/08/2019 documented as of this encounter Visit Diagnoses Diagnosis Ulnar neuropathy of right upper extremity- Primary Lesion of ulnar nerve Type 2 diabetes mellitus with hyperglycemia, with long-term current use of insulin Vitamin D insufficiency Unspecified vitamin D deficiency Dyslipidemia Other and unspecified hyperlipidemia documented in this encounter Care Teams Mortgage Loan Computation Clerk Relationship Specialty Start Date End Date Sravani Salas APRN [address] [place] [address] PCP - General Family Medicine 01/15/17 documented as of this encounter
--- OUTSIDE RECORDS SUMMARY | 2024-08-14 01:23 | XMS_ITS | Encounter Summary ---
Author Organization [facility] [place] [address] Care Team Providers Care Header Operator Name Role Phone Josue Sravani Rosen CADY Primary Care Provider [phone] [phone] Encounter Details Date Type Department Care Team (Late st Contact Info) Description 12/23/2019 Notes [place] [id number] Juanita Bergman MD [facility] [place] [address] Social History Tobacco Use Types Packs/Day Years [...] as of this encounter Progress Notes * Juanita Bergman R - 12/23/2019 9:16 AM EDT Isiah Medrano :1965 As follows are results of the Analgesic Implantation Committee Meeting held on 12/23/19, at [facility] to evaluate the above named patient for trial and implantation of SCS. The Analgesic Implantation Committee is attended by Pain Medicine and Behavioral Medicine Specialists. Mr. Medrano was approved by the Analgesic Implantation Committee to proceed to trial and implantation for above named procedure. Mr. Medrano received 1 good votes and 9 fair votes. Notes from meeting include: Repeat AIC and a possible endocrinology consult given elevated HbA1C values. Would also recommend aGAP assessment for a comprehensive understanding of his plan including FRP. documented in this encounter Plan of Treatment Upcoming Encounters Date Type Department Care Team (Late st Contact Info) Description 08/18/2024 10:30 AM EST Office [place] [address] Rodrigo Conteh MD [facility] [place] [address] documented as of this encounter Visit Diagnoses Not on filedocumented in this encounter Care Teams Header Operator Relationship Specialty Start Date End Date Sravani Salas APRN [address] [place] [address] PCP - General Family Medicine 01/15/17 documented as of this encounter
--- OUTSIDE RECORDS SUMMARY | 2024-08-14 01:23 | XMS_ITS | Encounter Summary ---
Author Organization [facility] [place] [address] Care Team Providers Care Case Monitor Name Role Phone Sravani Salas APRN Primary Care Provider [phone] [phone] Encounter Details Date Type Department Care Team (Late st Contact Info) Description 09/08/2019 Orders Only [facility] [place] [address] Kenneth Morrison LNA Social History Tobacco Use [...] 10:30 AM EST Office Visit [place] [phone] Rodrigo Conteh MD [facility] [address] documented as of this encounter Visit Diagnoses Not on filedocumented in this encounter Care Teams Case Monitor Relationship Specialty Start Date End Date Sravani Salas APRN [address] [place] [address] PCP - General Family Medicine 01/15/17 documented as of this encounter
--- OUTSIDE RECORDS SUMMARY | 2024-08-14 01:23 | XMS_ITS | Encounter Summary ---
Author Organization [facility] [place] [address] Care Team Providers Care Continuous Mining Machine Lode Miner Name Role Phone Josue Sravani Rosen CADY Primary Care Provider [phone] Encounter Details Date Type Department Care Team (Late st Contact Info) Description 05/18/2019 Notes [place] [address] Juanita Bergman MD [facility] [place] [address] Social History Tobacco Use Types Packs/Day Years [...] this encounter Progress Notes * Juanita Bergman - 05/18/2019 7:13 AM EDT Isiah Medrano :1965 As follows are results of the Analgesic Implantation Committee Meeting held on 05/18/19, at [facility] to evaluate the above named patient for trial and implantation of peripheral nerve stimulator. The Analgesic Implantation Committee is attended by Pain Medicine and Behavioral Medicine Specialists. Mr. Medrano was approved by the Analgesic Implantation Committee to proceed to trial and implantation for above named procedure. Mr. Medrano received 1 excellent vote and 7 good votes. Notes from meeting include: There were no medication contraindications identified. There was no imaging contraindication identified. There were no psychologic contraindications identified. Renal mass noted that is getting worked up; will need to see where Had a history of peripheral nerve stimulator with no relief. Pt is noted to not like the feeling despite multiple programming alterations. Works for the [email or web address] and is noted to be aware that he must not drive during the trial. documented in this encounter Plan of Treatment Upcoming Encounters Date Type Department Care Team (Late st Contact Info) Description 08/18/2024 10:30 AM EST Office [place] [address] Rodrigo Conteh MD [facility] [place] [address] documented as of this encounter Visit Diagnoses Not on filedocumented in this encounter Care Teams Continuous Mining Machine Lode Miner Relationship Specialty Start Date End Date Sravani Salas, MARINE GEOLOGIST [address] [place] [address] PCP - General Family Medicine 01/15/17 documented as of this encounter
--- OUTSIDE RECORDS SUMMARY | 2024-08-14 01:23 | XMS_ITS | Encounter Summary ---
[place] [address] Care Team Providers Care Radio Station Audio Engineer Name Role Phone Sravani Salas APRN Primary Care Provider [phone] Encounter Details Date Type Department Care Team (Late st Contact Info) Description 12/04/2019 Telephone [facility] [place] [phone] Sandy Chawla Social History Tobacco Use Types Packs/Day Years [...] encounter Miscellaneous Notes * Telephone Encounter - Sandy Chawla - 12/04/2019 3:43 PM EDT ----- Message from Raina López sent at 12/03/2019 8:23 AM EDT ----- Regarding: FW: Please review follow up request Can someone please call this patient to set this up? Thanks ----- Message ----- From: Cleveland Torres MD Sent: 12/02/2019 11:20 AM EDT To: Raina López Subject: RE: Please review follow up request Either phone or video is fine ----- Message ----- From: Raina López Sent: 11/26/2019 12:05 PM EDT To: Cleveland Torres MD, # Subject: Please review follow up request Hello Dr. Torres, This patient is on the list to follow up with you s/p SCS consult w/ Dr. Hernandez. Please review and categorize (urgent-needs in clinic appt, telephone call, video telehealth, or canwait until we are scheduling clinic visits) and REPLY ALL with your determination. ??If you choose video telehealth, please also advise if this could be a phone call if patient does not have access to telehealth, or if it should wait for a clinic visit. ?? PLEASE DO NOT FORGET TO REPLY ALL Time Frame in which you would like patient scheduled? (1 week, 1 Month, etc.): Method of Visit: (Please check one) In Clinic XIMENA ? In Clinic after COVID 19 ?? TeleVideo ? Phone Call ? Thanks, ?? The Scheduling Team documented in this encounter Plan of Treatment Upcoming Encounters Date Type Department Care Team (Late st Contact Info) Description 08/18/2024 10:30 AM EST Office Visit [place] [address] Rodrigo Conteh MD [facility] [place] [address] documented as of this encounter Visit Diagnoses Not on filedocumented in this encounter Care Teams Radio Station Audio Engineer Relationship Specialty Start Date End Date Sravani Salas APRN [address] [place] [address] PCP - General Family Medicine 01/15/17 documented as of this encounter
--- OUTSIDE RECORDS SUMMARY | 2024-08-14 01:23 | XMS_ITS | Encounter Summary ---
Author Organization [facility] [place] [address] Care Team Providers Care Computer Discovery Teacher Name Role Phone Sravani Salas APRN Primary Care Provider [phone] Encounter Details Date Type Department Care Team (Latest Contact Info) Description 12/09/2019 9:00 AM EDT TH Visit (TeleHealth) [place] [address] Cleveland Torres MD [facility] [place] [address] Pain of right upper extremity Social History [...] as of this encounter Progress Notes * Cleveland Torres MD - 12/09/2019 9:00 AM EDT [facility] follow up Date of Consultation: December 09, 2019 Referring Physician: Panfilo Evangelista APRN Reason for request of consultation: Right upper extremity pain Chief Complaint: Right upper extremity pain History of Present Illness: Mr. Medrano is a 54 y.o. year-old male who presents to the pain clinic for right upper extremity pain. ?? Mr. Medrano went on to have [...] LDN for a couple of months. He continues to use gabapentin 3600 mg/day. He states this is holding. He sees a therapist every other week. He feels he is stable from a psychological POV. INTERVAL HISTORY:Patient met with Dr. Hernandez. He was cleared and awaiting scheduling PAIN ASSESSMENT: Description: burning Location: a little [...] on ulnar nerve Physical Therapy: that helped some-- spoke with Dr Wood and PT was stopped TENS: none Acupuncture: none Chiropractic: none Massage: none CBT,Meditation/Imagery: none Yoga/Duran Chi/ Movement: none Marijuana: none Other: none Current Medications: No outpatient medications have been marked as taking for the 12/09/19 encounter (Appointment) with Cleveland Torres MD. Allergies & Adverse Reactions: Eptifibatide and Amoxicillin [...] file Gets together: Not on file Attends lutheran service: Not on file Active member of [...] ARM performed by Galdino Wood MD at [facility] MAIN OR ??? PRO PERCUT IMPLANT, NEUROELEC, PERIPH NERVE N/A 07/11/2018 IMPLANT NEUROSTIMULATOR ELECTRODES, PERIPHERAL NERVE (WRVU 2.32) performed by Galdino Wood MD at [facility] MAIN OR ??? PRO REVISE ULNAR NERVE AT ELBOW Right 01/20/2016 NEUROPLASTY &/OR TRANSPOSITION, ULNAR NERVE AT ELBOW performed by Galdino Wood MD at [facility] MAIN OR ??? PRO REVISE ULNAR NERVE AT ELBOW Right 08/31/2016 NEUROPLASTY &/OR TRANSPOSITION, ULNAR NERVE AT ELBOW (WRVU 7.26) performed by Galdino Wood MD at [facility] MAIN OR ??? PRO TISSUE GRAFTS, OTHER (E.G. AUTOLOGOUS FAT GRAFT) Right 08/31/2016 TISSUE GRAFT, PARATENON, FAT, DERMIS (OTHER) (WRVU 5.79) performed by Galdino Wood MD at [facility] MAIN OR Functional Status Work-- on Workers Comp ADL's---doing daily activies Lives at home with parents now. The [place] Prescription Monitoring Program was checked. The number of prescriptions reported was 0. Review of Systems: Positive notes are boldfaced. Constitutional Denies Fevers, Chills, loss of weight HEENT Denies new hearing problems, vision problems or dental problems. Cardiovascular Denies chest pain, palpitations, NE, hypertension. Respiratory Denies cough, SOB, wheezing, asthma. [...] risk 4-7 High risk >=8 Physical Exam: There were no vitals filed for this visit. Appearance/ Behavior Well groomed, good eye contact, relaxed, cooperative, normal speech, no acute distress. HEENT Sclera non-icteric, conjunctiva clear. Hearing grossly intact. Psychiatric Pleasant mood, cooperative, oriented to person, place, and date Imaging & Other Studies: No new studies for this visit. Assessment: Mr. Medrano is a 54 y.o. year-old male who presents to the pain clinic for right upper extremity pain. ?? Mr. Medrano went on to have that psychological evaluation for SCS and was deemed to not have any impediments to proceeding. He was then approved by the [facility] committee for a SCS trial. That trial, however, was not scheduled. Mr. Medrano had an intervening hospitalization for depression and he would need another psychological evaluation prior to proceeding with a SCS trial.Patient met with Dr. Hernandez. He was cleared and awaiting scheduling for surgery. . Recommendations: Interventions: ?? Patient does not require reevaluation in [facility]. We will proceed for spinal cord stimulator trial at the next available date. Medications: None at this time ?? Rehabilitation: ?? None at this time Psychological: Patient sees his own therapist. Offered to f/u with Dr. Hernandez if needed. Follow up: ?? F/u for SCS trial I spent 15 of 25 minutes in [id number] discussion regarding plan of care with the patient. documented in this encounter Plan of Treatment Upcoming Encounters Date Type Department Care Team (Late st Contact Info) Description 08/18/2024 10:30 AM EST Office [place] [address] Rodrigo Conteh MD [facility] [place] [address] documented as of this encounter Visit Diagnoses Diagnosis Pain of right upper extremity Type 2 diabetes mellitus with hyperglycemia, with long-term current use of insulin Vitamin D insufficiency Unspecified vitamin D deficiency Dyslipidemia Other and unspecified hyperlipidemia documented in this encounter Care Teams Computer Discovery Teacher Relationship Specialty Start Date End Date Sravani Salas APRN [address] [place] [address] PCP - General Family Medicine 01/15/17 documented as of this encounter
--- OUTSIDE RECORDS SUMMARY | 2024-08-14 01:23 | XMS_ITS | Encounter Summary ---
Author Organization [facility] [place] [address] Care Team Providers Care Sld Teacher Name Role Phone Sravani Salas APRN Primary Care Provider [phone] Encounter Details Date Type Department Care Team (Late st Contact Info) Description 05/19/2019 Telephone [place] [phone] Ursula Gruber Social History Tobacco Use Types Packs/Day Years [...] 10:30 AM EST Office [place] [phone] Rodrigo Conteh MD [facility] [place] [address] documented as of this encounter Visit Diagnoses Not on filedocumented in this encounter Care Teams Sld Teacher Relationship Specialty Start Date End Date Sravani Salas APRN [address] [place] [address] PCP - General Family Medicine 01/15/17 documented as of this encounter
--- OUTSIDE RECORDS SUMMARY | 2024-08-14 01:23 | XMS_ITS | Encounter Summary ---
[place] [address] Care Team Providers Care Round Kiln Drawer Name Role Phone Luis Zayas APRN Primary Care Provider [phone] [phone] Encounter Details Date Type Department Care Team (Latest Contact Info) Description 04/07/2019 1:00 PM EDT - 04/07/2019 11:59 PM EDT Hospital [place] [phone] Luis Zayas APRN [address] [place], [place] [address] Cystic disease of kidney Discharge Disposition: Home Social History Tobacco Use [...] on file documented as of this encounter Medications at Time of Discharge Medication Sig Dispensed Refills Start Date End Date Ibuprofen 200 mg Capsule Take 400 mg by mouth 3 times daily as needed (pain). CHOLECALCIFEROL, VITAMIN D3, (VITAMIN D3 ORAL) Take 1 tablet by mouth nightly. isosorbide mononitrate (IMDUR) 30 mg Tablet Sustained Release 24 hr Take 60 mg by mouth daily. Insulin Syringe-Needle U-100 0.5 mL 31 gauge x 5/16 Syringe 1 each by [facility].(Non-Drug; Combo Route) route 2 times daily. 100 Syringe 11 07/02/2017 NALTREXONE HCL (NALTREXONE ORAL)Indications:pt takes 4.5 mg daily Take 1 mg by mouth 4 times daily as needed (pain). Indications: pt takes 4.5 mg daily pen needle, diabetic (NOVOFINE PLUS) 32 gauge x 1/6 Needle 1 each by [facility].(Non-Drug; Combo Route) route 4 times daily as [...] 31 x 5/16 Syrg 1 each by [facility].(Non-Drug; Combo Route) route 2 times daily (before meals). 100 each 11 11/04/2012 insulin regular CONCENTRATE U-500 (HumuLIN R U-500) 500 unit/mL Solution 500 Units by NOT APPLICABLE route. 08/11/2017 02/17/2021 metFORMIN (GLUCOPHAGE XR) 500 mg Tablet Sustained Release 24 hr Take 2 tablets by mouth 2 times daily. 360 tablet 3 12/26/2018 09/08/2019 flash glucose scanning reader (FREESTYLE NEAL 14 DAY READER) [facility] As instructed 1 each 1 12/26/2018 09/08/2019 flash glucose sensor (FREESTYLE NEAL 14 DAY SENSOR) Kit q14 days as instructed 6 kit 3 12/26/2018 09/08/2019 insulin regular CONCENTRATE U-500 (HUMULIN R U-500) 500 unit/mL Solution Inject 150-175 Units subcutaneously 2 times daily. May adjust the dose up to 25 units until fasting BG at target of 90-180. 80 mL 3 10/20/2018 12/28/2019 insulin U-500 syringe-needle 1/2 mL 31 gauge x 15/64 Syringe 1 each by [facility].(Non-Drug; Combo Route) route 2 times daily. THIS IS AN INSULIN SYRINGE SPECIFICALLY FOR U-500 DOSING 180 Syringe 3 10/20/2018 12/28/2019 DULoxetine (CYMBALTA) 60 mg Capsule, Delayed Release(E.C.) Take 60 mg by mouth daily. 06/15/2019 traZODone (DESYREL) 50 mg Tablet Take 50 mg by mouth nightly as needed for Sleep. 09/08/2019 meTOPROLOL succinate (TOPROL-XL) 25 mg Tablet Sustained Release 24 hr Take 25 mg by mouth daily. 05/23/2015 09/08/2019 Insulin [place], Disposable, (BD INSULIN PEN NEEDLE UF MINI) 31 x 3/16 Ndle by Other route. 1 box = 100 insulin PEN needles. 1 Box 11 02/24/2013 06/15/2019 documented as of this encounter Plan of Treatment Upcoming Encounters Date Type Department Care Team (Late st Contact Info) Description 08/18/2024 10:30 AM EST Office [place] [address] Rodrigo Conteh MD [facility] [place] [address] documented as of this encounter Procedures Procedure Name Priority Date/Time Associated Diagnosis Comments US RETROPERITONEAL COMPLETE Routine 04/07/2019 1:48 PM EDT Cystic disease of kidney documented in this encounter Results * US Retroperitoneal Complete (04/07/2019 1:48 PM EDT) Anatomical Region Laterality Modality Abdomen Ultrasound 04/07/2019 1:45 PM EDT Impressions 04/07/2019 2:22 PM EDT ?? Corresponding to findings at MRI are dual simple right renal cysts the largest of which, noted at MR, measures 3.8 x 4 x 4.1 cm without vascularity nor internal component. Exophytic off the lower pole is a simple 1 cm cyst. Normal left kidney. No nephrolithiasis. Thank you for letting us participate in the care of this patient. For questions regarding this report, please contact the number below. ? Jackie Weston, Staff Physician Electronically Signed Final Report ?? 04/07/2019 02:21 pm Narrative 04/07/2019 2:22 PM EDT Renal ?(Signed Final 04/07/2019 02:21 pm) PATIENT INFO: ID #: ? [id number] ?: ??[birth year] (54 yrs) Name: ? REID MEDRANO ?Visit Date: 04/07/2019 01:45 pm PERFORMED BY: Performed By: ? Razia Daly RDMS Attending: ?Enrico NASH, Jackie Peters Referred By: ?LUIS ZAYAS Location: ? [place] SERVICE(S) PROVIDED: ??URETRO - Retroperitoneal Complete - [id number] ? [id number] INDICATIONS: ??Cystic disease of kidney COMPARISON: MRI-03/17/19 RIGHT KIDNEY: Size (cm) ?L: ??11.1 Cortical Thickness: ?Normal Cortical Echogenicity: ?? Normal Hydronephrosis: ?No sonographic evidence Comment: ?2 cysts the largest is in the upper pole and ? measures ??3.8 x4.0x4.1 cm. LEFT KIDNEY: Size (cm) ?L: ??10.4 Cortical Thickness: ?Normal Cortical Echogenicity: ?? Normal Hydronephrosis: ?No sonographic evidence URINARY BLADDER: Pre-void (cm) ? L: ??7.2 ? AP: ??7.4 ? TV: ??6.8 Vol (ml): ?189.7 Comment: ?Partially distended, normal contour Procedure Note Jackie Weston MD - 04/07/2019 Renal (Signed Final 04/07/2019 02:21 pm) PATIENT INFO: ID #: [id number] : [birth year] (54 yrs) Name: REID MEDRANO Visit Date: 04/07/2019 01:45 pm PERFORMED BY: Performed By: Razia Daly RDMS Attending: Jackie Weston MD Referred By: LUIS ZAYAS Location: [facility] SERVICE(S) PROVIDED: URETRO - Retroperitoneal Complete - [id number] INDICATIONS: Cystic disease of kidney COMPARISON: MRI-03/17/19 RIGHT KIDNEY: Size (cm) L: 11.1 Cortical Thickness: Normal Cortical Echogenicity: Normal Hydronephrosis: No sonographic evidence Comment: 2 cysts the largest is in the upper pole and measures 3.8 x4.0x4.1 cm. LEFT KIDNEY: Size (cm) L: 10.4 Cortical Thickness: Normal Cortical Echogenicity: Normal Hydronephrosis: No sonographic evidence URINARY BLADDER: Pre-void (cm) L: 7.2 AP: 7.4 TV: 6.8 Vol (ml): 189.7 Comment: Partially distended, normal contour IMPRESSION Corresponding to findings at MRI are dual simple right renal cysts the largest of which, noted at MR, measures 3.8 x 4 x 4.1 cm without vascularity nor internal component. Exophytic off the lower pole is a simple 1 cm cyst. Normal left kidney. No nephrolithiasis. Thank you for letting us participate in the care of this patient. For questions regarding this report, please contact the number below. 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
--- OUTSIDE RECORDS SUMMARY | 2024-08-14 01:23 | XMS_ITS | Encounter Summary ---
Author Organization [facility] Address [facility] [place] [address] Care Team Providers Care Chart Snatcher Name Role Phone Sravani Salas Silas CADY Primary Care Provider [phone] [phone] Encounter Details Date Type Department Care Team (Late st Contact Info) Description 06/11/2019 Telephone Care Management [facility] [place] [phone] Pao Ling [place] [facility] [place] [address] Social History Tobacco Use Types Packs/Day Years [...] Telephone Encounter - Pao Ling MSW - 06/11/2019 1:39 PM EDT Workers Compensation Demographics: Insurance: PMA WC claim 3 [id number] DOI: 01-10-15 Employer: [employer] CCM consulted by inpatient Psych OLEGARIO Ramirez re: potential wc admission. CCM reviewed edh notes from this current admission, relaying the limited documentation to the wc injury and claim that would support this admission being covered under his wc claim. Relayed to [employer] pt's option to have this admission billed to wc insurance, but wanting pt to be aware of the above as well as being aware of the wc insurance's access to his PMH re: Behavioral Health tx both present and past records related to such. P: CCM will collaborate w/ inpatient team and be available for f/u intervention as needed. documented in this encounter Plan of Treatment Upcoming Encounters Date Type Department Care Team (Late st Contact Info) Description 08/18/2024 10:30 AM EST Office [place] [address] Rodrigo Conteh MD [facility] [place] [address] documented as of this encounter Visit Diagnoses Not on filedocumented in this encounter Care Teams Chart Snatcher Relationship Specialty Start Date End Date Sravani Salas APRN [address] [place] [address] PCP - General Family Medicine 01/15/17 documented as of this encounter
--- OUTSIDE RECORDS SUMMARY | 2024-08-14 01:23 | XMS_ITS | Encounter Summary ---
Author Organization Formerly [facility] [place] [address] Care Team Providers Care Outsole Leveler Name Role Phone Josue Sravani Silas CADY Primary Care Provider [phone] [phone] Encounter Details Date Type Department Care Team (Latest Contact Info) Description 12/28/2019 4:30 PM EDT TH Visit (TeleHealth) [place] [address] [facility] [place] [address] Type 2 diabetes mellitus without complication, with long-term current use of insulin; Dyslipidemia Social History Tobacco Use Types Packs/Day Years [...] Sign Reading Time Taken Comments Blood Pressure - - Pulse - - Temperature - - Respiratory Rate - - Oxygen Saturation - - Inhaled Oxygen Concentration - - Weight 83.9 kg (185 lb) 12/28/2019 4:35 PM EDT Height - - Body Mass Index 29.86 10/28/2019 11:04 AM EST documented in this encounter Patient Instructions * Patient Instructions* Rodrigo Conteh MD - 12/28/2019 4:30 PM EDT Plan: 1. Medication: Adjustment of diabetes treatment regimen: To cont Levemir 30 units qAM and he prefers to change from pen to vial to help reduce the cost. will allow him to adjust the dose by 2 units to keep fasting BG at the target of 90-150 range To cont Humalog pen 10-15u BID/TID with meals, and to hold if not eating or low BG (*Tasha CGM was too costly and he is ok to check FSBG 2-4x/day further) Ok to give extra Humalog kwickpen sliding scale p.r.n if BG>180 based on 1u:20BG ratio To cont glimiperide 4 mg bid and metforminER 1000 mg bid (and try not to miss the AM dosing). To continue all other medications, OTC-B12 1,000 [...] for review at next visit. 4. Lab: Already checked lab locally in late Sep 2019 as above. Will wait until Covid-19 pandemic is better to check lab tests again. 5. RTC: Next visit in 6 months. Will check HbA1c, TSH. CMP, ipids, and annual urine microalbumin/Crat local lab at the time. Orders Placed This Encounter Procedures ??? Hemoglobin A1c ??? TSH ??? Comprehensive metabolic panel (non-fasting) ??? Lipid Panel (Reflex Direct LDL) ??? U Albumin/Cre Ratio documented in this encounter Progress Notes * Rodrigo Conteh MD - 12/28/2019 4:30 PM EDT Endocrine Clinic Name: [facility] : 1965 Date: 12/28/2019 PCP: Sravani Salas APRN Reason for visit: diabetes type 2 with recent admission for MDD with S/I in Jun 2019- switched fromU-500 insulin to Levemir and humalog since then with better A1c 7.3% recently (was high A1c 11.5%). Patient verbally consents to this telehealth visit and understands that this visit may be billed, similar to a clinic office visit. I provided care to the patient today via VDO plus telephone to help with the audio portion. The total time associated with this visit was 30 minutes. Diabetes treatment regimen: Glimiperide 4 mg bid and Metformin 1000 mg bid Levemir 30 units qAM Humalog pen 10-15u BID/TID (*he used to take U500 pen 175 units in PM i.e. 35u on the syringe, and missed the AM dose often) FSBG: checking FSBG 2-3x/day, ranging between 60s-210s mg/dl Most recent HA1c: 7.3% on 09/21/19 (was 11.5% on 12/26/18, 7.7% on 06/16/18, 10.2% on 08/11/17, 11.5%on 07/01/17, 9..2% in , 11.5% on 09/15/15, 12.4% 06/10/15 , 14.6% on 06/19/13 and 9.5% on 02/24/13) Ref. Range 02/24/2013 13:09 06/19/2013 13:57 06/10/2015 12:30 09/15/2015 12:06 04/03/2016 10:15 Hemoglobin A1C Range: 4.3 - 5.6 % 9.5 (H) 14.6 (H) 12.4 (H) 11.5 (H) 9.2 (H) => 11.5%=> 10.2%(08/11/17) => 7.7% (06/16/18) => 11.5% (12/26/18) => 7.3% (09/23/19) Hypoglycemia during the interval time: rarely low in 40s-60s. He noted sweating and shakiness but sometimes did not feel low at all when <40 in the past suggestive of hypoglycemic unawareness. Diet: low fat/low carb diet Exercise: walking Complications: no changes during the interim. Prevention: same as last visit recently. He had admission in Jun 2019 for 4 days for S/A and depression and I saw him in the hospital and adjusted his insulin regimen from U500 to Levemir and Humalog basal-bolus to give him more flexibilityif he skips meal or eats more or less carb. He is pleased to see that his A1c came back down from 11.5 to 7.3% at target. He wants to switch Levemir pen to vial to help reduce the cost and still has syringes for the injections. He had to quit [...] have severe hypoglycemia requiring 911 call in 2018 so his (RN) does not want him to have low BG again and rather kept BG at the highend resulting in very high A1c again at last visit in Dec 2018. He knows that good DM control is critical for prevention of DM complication and slow down further progression of neuropathy and ED. He cannot resume taking celias for ED if he is using NTG sl and denies no angina or active cardiac issues. Denies any changes in vision and just had a new pair of eyeglasses and eye exam was ok. No CP, SOB, [...] mellitus type 2, insulin dependent E11.9, Z79.4 Current Outpatient Medications on File Prior to Visit Medication Sig Dispense Refill ??? Levemir FlexTouch U-100 Insuln Insulin Pen ??? ARIPiprazole (ABILIFY) 10 mg Tablet 10 [...] insulin PEN needles. 1 each 3 ??? insulin regular CONCENTRATE U-500 (HUMULIN R [...] file Gets together: Not on file Attends sabianism service: Not on file Active member of [...] Social History Narrative ??? Not on file FAMILY HISTORY Family History Problem Relation Age of Onset ??? Diabetes Brother Physical exam Wt 83.9 kg (185 lb) BMI 29.86 kg/m?? Deferred. PE from last visit: Appearance: mildly obese, pleasant, NAD, here with his HEENT: DANYELLE THOMSON Neck: no goiter Abdomen: benign, NT, ND [...] Alb/Cr Ratio, Random <30 mcg/mg Cr 4 Assessment: 54 y.o. man with better control of type 2 Diabetes with insulin resistance and already switched U500 insulin to Levemir and Humalog with A1c down from 11.5% to 7.3% during the interim. His depressionis better after admission in Jun 2019 when we switched his insulin regimen. He has lost weight downfrom 225 to 185 lbs over the past year with a lot less insulin need (50-60 units/day instead of 175- 300 units/day). He had high c-peptide 7.3 from his own insulin production and responded to oral agents which help to reduce insulin need (victoza was too costly $150/mo even with insurance coverage).He could not afford the Tasha CGM to closely monitor BG and feels ok to cont checking finger stick blood glucose often daily further. Complication Risk Status: + complications present with painful peripheral neuropathy and ED, and some degree of hypoglycemic unawareness. Also, treated for CAD s/p stent RCA in 01/07 at young age of 42, HTN, Chol, gout and asymptomatic ontreatment. Plan: 1. Medication: Adjustment of diabetes treatment regimen: To cont Levemir 30 units qAM and he prefers to change from pen to vial to help reduce the cost. will allow him to adjust the dose by 2 units to keep fasting BG at the target of 90-150 range To cont Humalog pen 10-15u BID/TID with meals, and to hold if not eating or low BG (*Tasha CGM was too costly and he is ok to check FSBG 2-4x/day further) Ok to give extra Humalog kwickpen sliding scale p.r.n if BG>180 based on 1u:20BG ratio To cont glimiperide 4 mg bid and metforminER 1000 mg bid (and try not to miss the AM dosing). To continue all other medications, OTC-B12 1,000 [...] for review at next visit. 4. Lab: Already checked lab locally in late Sep 2019 as above. Will wait until Covid-19 pandemic is better to check lab tests again. 5. RTC: Next visit in 6 months. Will check HbA1c, TSH. CMP, ipids, and annual urine microalbumin/Crat local lab at the time. Orders Placed This Encounter Procedures ??? Hemoglobin A1c ??? TSH ??? Comprehensive metabolic panel (non-fasting) ??? Lipid Panel (Reflex Direct LDL) ??? U Albumin/Cre Ratio We have reviewed our plan outlined above [...] 10:30 AM EST Office [place] [address] [facility] [place] [address] documented as of this encounter Visit Diagnoses Diagnosis Type 2 diabetes mellitus without complication, with long-term current use of insulin Dyslipidemia Other and unspecified hyperlipidemia Type 2 diabetes mellitus with hyperglycemia, with long-term current use of insulin Vitamin D insufficiency Unspecified vitamin D deficiency Dyslipidemia Other and unspecified hyperlipidemia documented in this encounter Care Teams Outsole Leveler Relationship Specialty Start Date End Date Sravani Salas APRN [address] [place] [address] PCP - General Family Medicine 01/15/17 documented as of this encounter
--- OUTSIDE RECORDS SUMMARY | 2024-08-14 01:23 | XMS_ITS | Encounter Summary ---
[place] [address] Care Team Providers Care Lab Technician Name Role Phone Sravani Salas APRN Primary Care Provider [phone] [phone] Encounter Details Date Type Department Care Team (Late st Contact Info) Description 12/25/2019 Telephone [place] [phone] Ara Cortez, [facility] Social History Tobacco Use Types Packs/Day Years [...] encounter Miscellaneous Notes * Telephone Encounter - Ara Cortez, [facility] - 12/25/2019 10:12 AM EDT [employer] Pre-Telemedicine Phone Note [] Patient not reached [x] Patient reached and the following information was reviewed/obtained per protocol: [x] Confirmed patient name and date of [x] Confirmed telemedicine shala (Vidyo and Virtual Visit) is downloaded and functioning [x] Confirmed location of patient - TeleVisit is taking place in [x] [place] [] [place] [] If not on myD, working on signing up for [facility] [] Confirmed has completed any pre-visit questionnaires [] If has not received required pre-visit questionnaires, send via [facility] [] Reviewed patient medications [] Documented self-reported vitals: [] Weight:185lbs [] Height 5 feet 6 [] pulse recorded: [] Other information or concerns documented in this encounter Plan of Treatment Upcoming Encounters Date Type Department Care Team (Late st Contact Info) Description 08/18/2024 10:30 AM EST Office Visit [place] [address] Rodrigo Conteh MD [facility] [place] [address] documented as of this encounter Visit Diagnoses Not on filedocumented in this encounter Care Teams Lab Technician Relationship Specialty Start Date End Date Sravani Salas APRN [address] [place] [address] PCP - General Family Medicine 01/15/17 documented as of this encounter
--- OUTSIDE RECORDS SUMMARY | 2024-08-14 01:23 | XMS_ITS | Encounter Summary ---
Author Organization Formerly [facility] [place] [address] Care Team Providers Care Dining Manager Name Role Phone Josue Sravani Silas CADY Primary Care Provider [phone] [phone] Encounter Details Date Type Department Care Team (Late st Contact Info) Description 04/07/2019 12:15 PM EDT Laboratory Appointment Lab [address] [place] [phone] Leg cramp Social History Tobacco Use Types Packs/Day Years [...] 10:30 AM EST Office [place] [address] Rodrigo Conteh MD [facility] [place] [address] documented as of this encounter Procedures Procedure Name Priority Date/Time Associated Diagnosis Comments HEMOGRAM Routine 04/07/2019 12:06 PM EDT Leg cramp DIFFERENTIAL, AUTOMATED Routine 04/07/2019 12:06 PM EDT Leg cramp CBC (WITH DIFF) Routine 04/07/2019 12:06 PM EDT Leg cramp MAGNESIUM Routine 04/07/2019 12:06 PM EDT Leg cramp documented in this encounter Results * Differential, Automated (04/07/2019 12:06 PM EDT) Neutrophil % 65.0 % [facility] Neutrophil Absolute 5.01 1.70 - 6.10 x10(3)/[facility] Lymph % 24.2 % [facility] Lymphocytes Abs 1.9 0.9 - 3.2 x10(3)/[facility] Monocyte % 7.5 % [facility] Monocyte Abs 0.6 0.3 - 0.9 x10(3)/[facility] Eos % 2.5 % [facility] Eosinophils Abs 0.2 0.0 - 0.4 x10(3)/[facility] Basophil % 0.5 % [facility] Baso Absolute 0.0 0.0 - 0.1 x10(3)/[facility] Immature Gran % 0.30 % [facility] Comment: Immature granulocytes(IG's)percentage and absolute count will include metamyelocytes, myelocytes, and promyelocytes. Blood smears from CBCs yielding IG's will be scanned manually for concordance. If this scan disagrees with the automated IG or if promyelocytes are noted, a manual differential will be performed. Immature Gran Absolute 0.02 0.00 - 0.04 x10(3)/[facility] Blood specimen (specimen) 04/07/2019 12:06 PM EDT 04/07/2019 12:13 PM EDT Narrative Resulting Agency Comment Spec In Lab Sravani Salas WET PROCESS TECHNICIAN HEMATOLOGY ORDERA BLES [facility] [place] [address] * Hemogram (04/07/2019 12:06 PM EDT) White Blood Cell 7.7 4.0 - 9.5 x10(3)/[facility] Red Blood Cell 5.04 4.58 - 5.54 x10(6)/[facility] Hemoglobin 14.4 13.7 - 16.5 gm/dL [facility] Hematocrit 42.2 40.5 - 48.5 % [facility] Mean Cell Volume 83.7 82.9 - 93.1 [facility] Mean Cell Hemoglobin 28.6 27.5 - 32.1 pg [facility] Mean Cell Hemoglobin Concentration 34.1 32.0 - 35.7 gm/dL [facility] Platelet 200 145 - 357 x10(3)/[facility] RDW Standard Deviation 42.2 36.0 - 45.0 [facility] RDW coefficient of variation 13.8 11.4 - 13.8 % [facility] Mean Platelet Volume 9.1 7.6 - 12.9 [facility] NRBC% auto 0.0 % [facility] NRBC Absolute 0.000 0.000 - 0.000 x10(3)/[facility] Blood specimen (specimen) 04/07/2019 12:06 PM EDT 04/07/2019 12:13 PM EDT Narrative Resulting Agency Comment Spec In Lab Sravani Salas APRN HEMATOLOGY ORDERA BLES [facility] [place] [address] * (ABNORMAL) Magnesium (04/07/2019 12:06 PM EDT) Magnesium 0.67(L) 0.69 - 1.07 mmol/L [facility] Blood specimen (specimen) 04/07/2019 12:06 PM EDT 04/07/2019 12:13 PM EDT Narrative Resulting Agency Comment Spec In Lab Sravani Salas WET PROCESS TECHNICIAN CHEMISTRY ORDERAB LES [facility] [place] [address] documented in this encounter Visit Diagnoses Diagnosis Leg cramp Cramp of limb Type 2 diabetes mellitus with hyperglycemia, with long-term current use of insulin Vitamin D insufficiency Unspecified vitamin D deficiency Dyslipidemia Other and unspecified hyperlipidemia documented in this encounter Care Teams Dining Manager Relationship Specialty Start Date End Date Sravani Salas APRN [address] [place] [address] PCP - General Family Medicine 01/15/17 documented as of this encounter
--- OUTSIDE RECORDS SUMMARY | 2024-08-14 01:23 | XMS_ITS | Encounter Summary ---
Author Organization Formerly [facility] [place] [address] Care Team Providers Care Parts Finisher Name Role Phone Josue Sravani Silas CADY Primary Care Provider [phone] [phone] Encounter Details Date Type Department Care Team (Late st Contact Info) Description 12/23/2019 Telephone [place] [phone] Radha Warner Social History Tobacco Use Types Packs/Day Years [...] encounter Miscellaneous Notes * Telephone Encounter - Radha Warner - 12/23/2019 1:56 PM EDT Left voicemail for new referral which was graded as urgency D. Deferring referral and sending letter. documented in this encounter Plan of Treatment Upcoming Encounters Date Type Department Care Team (Late st Contact Info) Description 08/18/2024 10:30 AM EST Office [place] [phone] Rodrigo Conteh MD [facility] [place] [address] documented as of this encounter Visit Diagnoses Not on filedocumented in this encounter Care Teams Parts Finisher Relationship Specialty Start Date End Date Sravani Salas APRN [address] [place] [address] PCP - General Family Medicine 01/15/17 documented as of this encounter
--- OUTSIDE RECORDS SUMMARY | 2024-08-14 01:23 | XMS_ITS | Encounter Summary ---
Author Organization [facility] [place] [address] Care Team Providers Care Reeler Operator Name Role Phone Sravani Salas APRN Primary Care Provider [phone] [phone] Reason for Referral * Consultation (Routine) - Closed Specialty Diagnoses / Procedures Referred By Contvianey t Referred To Contact [facility] Diagnoses Pain of right upper extremity SCS eval *ok to schedule Cleveland Torres MD [facility] [place] [address] Asia Hernandez PsyD [facility] [place] [address] Referral ID Status Reason Start Date Expiration Date V isits Requested Visits Authorized [id number] Closed Consult, Test & Treat 10/28/2019 10/27/2020 1 1 Reason for Visit * Reason Comments Pain Management Encounter Details Date Type Department Care Team (Late st Contact Info) Description 10/28/2019 11:30 AM EST Office Visit [facility] [place] [address] Cleveland Torres MD [facility] [place] [address] Pain of right upper extremity (Primary Dx) Social [...] Sign Reading Time Taken Comments Blood Pressure 93/63 10/28/2019 11:04 AM EST Pulse 88 10/28/2019 11:04 AM EST Temperature - - Respiratory Rate - - Oxygen Saturation 99% 10/28/2019 11:04 AM EST Inhaled Oxygen Concentration - - Weight 83.9 kg (185 lb) 10/28/2019 11:04 AM EST Height 167.6 cm (5' 6) 10/28/2019 11:04 AM EST Body Mass Index 29.86 10/28/2019 11:04 AM EST documented in this encounter Progress Notes * Cleveland Torres MD - 10/28/2019 11:30 AM EST [facility] follow up Date of Consultation: October 28, 2019 Referring Physician: Panfilo Evangelista APRN Reason [...] LDN for a couple of months. He says he and his . So, [...] Outpatient Medications Marked as Taking for the 10/28/19 encounter (Office Visit) with Angelia Torres MD Medication Sig Dispense Refill ??? Levemir FlexTouch [...] file Gets together: Not on file Attends denominational service: Not on file Active member of [...] ARM performed by Galdino Wood MD at [facility] MAIN OR ??? PRO PERCUT IMPLANT, NEUROELEC, PERIPH NERVE N/A 07/11/2018 IMPLANT NEUROSTIMULATOR ELECTRODES, PERIPHERAL NERVE (WRVU 2.32) performed by Galdino Wood MD at [facility] MAIN OR ??? PRO REVISE ULNAR NERVE AT ELBOW Right 01/20/2016 NEUROPLASTY &/OR TRANSPOSITION, ULNAR NERVE AT ELBOW performed by Galdino Wood MD at [facility] MAIN OR ??? PRO REVISE ULNAR NERVE AT ELBOW Right 08/31/2016 NEUROPLASTY &/OR TRANSPOSITION, ULNAR NERVE AT ELBOW (WRVU 7.26) performed by Galdino Wood MD at [facility] MAIN OR ??? PRO TISSUE GRAFTS, OTHER (E.G. AUTOLOGOUS FAT GRAFT) Right 08/31/2016 TISSUE GRAFT, PARATENON, FAT, DERMIS (OTHER) (WRVU 5.79) performed by Galdino Wood MD at [facility] MAIN OR Functional Status Work-- on Workers Comp ADL's---doing daily activies Lives at home with parents now. [facility] Prescription Monitoring Program was checked. The number of prescriptions reported was 0. Review of Systems: Positive notes are boldfaced. Constitutional Denies Fevers, Chills, loss of weight HEENT Denies new hearing problems, vision problems or dental problems. Cardiovascular Denies chest pain, palpitations, [place], hypertension. Respiratory Denies cough, SOB, wheezing, asthma. [...] risk >=8 Physical Exam: Most Recent Vitals: 10/28/19 1104 BP: 93/63 Pulse: 88 SpO2: 99% PainSc: 8 Appearance/ Behavior Well groomed, good eye contact, [...] proceeding. He was then approved by the [facility] committee for a SCS trial. That [...] provide him with a new prescription today. Recommendations: Interventions: ?? None at this time. Will consider SCS when he sees Dr. Hernandez Medications: None at this time ?? Rehabilitation: ?? None at this time Psychological: ?? Referral for new psychological evaluation for SCS trial Follow up: ?? F/u after pt see Dr Hernandez Provided WC letter (hard copy) for Mr Medrano for today's visit. documented in this encounter Plan of Treatment Upcoming Encounters Date Type Department Care Team (Late st Contact Info) Description 08/18/2024 10:30 AM EST Office Visit [place] [address] Rodrigo Conteh MD [facility] [place] [address] Scheduled Referrals Name Type Priority Associated Diagnoses Orde r Schedule Referral to Spine Center Outpatient Referral Routine Pain of right upper extremity Ordered: 10/28/2019 documented as of this encounter Visit Diagnoses Diagnosis Pain of right upper extremity- Primary Type 2 diabetes mellitus with hyperglycemia, with long-term current use of insulin Vitamin D insufficiency Unspecified vitamin D deficiency Dyslipidemia Other and unspecified hyperlipidemia documented in this encounter Care Teams Reeler Operator Relationship Specialty Start Date End Date Sravani Salas APRN [address] [place] [address] PCP - General Family Medicine 01/15/17 documented as of this encounter
--- OUTSIDE RECORDS SUMMARY | 2024-08-14 01:23 | XMS_ITS | Encounter Summary ---
Author [place] [address] Care Team Providers Care [place] Marshal Name Role Phone Sravani Salas APRN Primary Care Provider [phone] Encounter Details Date Type Department Care Team (Late st Contact Info) Description 03/03/2020 Telephone [place] [phone] Sravani Santos Social History Tobacco Use Types Packs/Day Years [...] encounter Miscellaneous Notes * Telephone Encounter - Sravani Santos - 03/03/2020 3:51 PM EDT Isiah Medrano [id number] Diagnosis/Indication: iron def.anemia/screening 1. Have you ever had a/an no before? No If yes, did you have any problems with the procedure? No What type of sedation was used: None 2. Do you take any Blood Thinners? Yes: Type: 325 asprin 3. Do you have a Pacemaker or Defibrillator device? No 4. Are you a diabetic? Yes: Controlled by diet or medication? Both 5. Do you have any Allergies to Eggs, Latex or Medications? Yes: all listed in chart 6. Do you take any Oral Iron Supplements (Including multi-vitamins)? Yes (Iron) 7. Do you have a history of three or more abdominal surgeries? No 8. Have you had a problem with sedation or anesthesia? No 9. Do you have a c-pap machine or oxygen tank? Neither 10. Do you take prescription narcotic pain medications, including suboxone or methodone? No 11. Do you have a preference regarding the gender of your provider? No Preference 12. Is there any other information you would like to give us to aid in scheduling? No 13. Say to patient: You must have a responsible alliance party who will drive you to your procedure, stay [place] for the entire duration of your procedure, and drive you home from your procedure? yes *Please Verify the height and weight, and adjust if height and/or weight have changed* Estimated body mass index is 29.86 kg/m?? as calculated from the following: Height as of 10/28/19: 167.6 cm (5' 6). Weight as of 12/28/19: 83.9 kg (185 lb). *Delete if not needed* Height: 5'6 Weight: 180 BMI: 29.00 Age:55 y.o. documented in this encounter Plan of Treatment Upcoming Encounters Date Type Department Care Team (Late st Contact Info) Description 08/18/2024 10:30 AM EST Office [place] [phone] Rodrigo Conteh MD [facility] [place] [address] documented as of this encounter Visit Diagnoses Not on filedocumented in this encounter Care Teams [place] Marshal Relationship Specialty Start Date End Date Sravani Salas APRN [address] [place] [address] PCP - General Family Medicine 01/15/17 documented as of this encounter
--- OUTSIDE RECORDS SUMMARY | 2024-08-14 01:23 | XMS_ITS | Encounter Summary ---
[place] [address] Care Team Providers Care Principal Technical Architect Name Role Phone JosueSravani wood CADY Primary Care Provider [phone] Encounter Details Date Type Department Care Team (Late st Contact Info) Description 09/15/2019 Telephone [facility] [place] [phone] Terri Chicas RN Social History Tobacco Use [...] encounter Miscellaneous Notes * Telephone Encounter - Terri Chicas RN - 09/15/2019 3:03 PM EST I called [facility] to tell them that Isiah Medrano's Naltrexone script was sent to [facility] and that it is a Mail order Pharmacy. I left the message on Sade's phone. I told them they could call the Pharmacy and gave the Phone number. documented in this encounter Plan of Treatment Upcoming Encounters Date Type Department Care Team (Late st Contact Info) Description 08/18/2024 10:30 AM EST Office [place] [address] Rodrigo Conteh MD [facility] [place] [address] documented as of this encounter Visit Diagnoses Not on filedocumented in this encounter Care Teams Principal Technical Architect Relationship Specialty Start Date End Date Sravani Salas APRN [address] [place] [address] PCP - General Family Medicine 01/15/17 documented as of this encounter
--- OUTSIDE RECORDS SUMMARY | 2024-08-14 01:23 | XMS_ITS | Encounter Summary ---
Author Organization [facility]ly [facility] [place] [address] Care Team Providers Care Gm Name Role Phone Sravani Salas CADY Primary Care Provider [phone] Encounter Details Date Type Department Care Team (Late st Contact Info) Description 05/18/2019 Telephone [facility] [place] [phone] Cleveland Torres MD [facility] [place] [address] Social History Tobacco Use Types Packs/Day Years [...] Telephone Encounter - Cleveland Torres MD - 05/18/2019 3:25 PM EDT Left message re scheduling [facility]. documented in this encounter Plan of Treatment Upcoming Encounters Date Type Department Care Team (Late st Contact Info) Description 08/18/2024 10:30 AM EST Office [place] [phone] Rodrigo Conteh MD [facility] [place] [address] documented as of this encounter Visit Diagnoses Not on filedocumented in this encounter Care Teams Gm Relationship Specialty Start Date End Date Sravani Salas APRN [address] [place] [address] PCP - General Family Medicine 01/15/17 documented as of this encounter
--- OUTSIDE RECORDS SUMMARY | 2024-08-14 01:23 | XMS_ITS | Encounter Summary ---
Author Organization [place] [address] Care Team Providers [employer] Name Role Phone Sravani Salas APRN Primary Care Provider [phone] Reason for Visit * Auth/Cert Specialty Diagnoses / Procedures Referred By Contac t Referred To Contact Diagnoses Adjustment disorder unspecified mood disorder Procedures EMERGENCY IPI PSYCH Referral ID Status Reason Start Date Expiration Date Visits Re quested Visits Authorized [id number] 1 1 Encounter Details Date Type Department Care Team (Latest Contact Info) Description 06/10/2019 8:32 PM EDT - 06/15/2019 2:40 PM EDT Hospital Encounter [address] [place] [id number] Finn Cano MD [facility] [place] [address] Discharge Disposition: Home Social History Tobacco Use [...] Sign Reading Time Taken Comments Blood Pressure 145/75 06/15/2019 6:49 AM EDT Pulse 87 06/15/2019 6:49 AM EDT Temperature 36.7 ??C (98.1 ??F) 06/15/2019 6:49 AM ED T Respiratory Rate 16 06/15/2019 6:49 AM EDT Oxygen Saturation 100% 06/15/2019 6:49 AM EDT Inhaled Oxygen Concentration - - Weight 97.7 kg (215 lb 6.2 oz) 06/10/2019 8:32 P M EDT Height 167.6 cm (5' 6) 06/10/2019 8:32 PM EDT Body Mass Index 34.76 06/10/2019 8:32 PM EDT documented in this encounter Discharge Summaries * Stephon Villaseñor MD - 06/15/2019 9:03 AM EDT Discharge Summary Patient Name: Reid Medrano Patient Age: 54 y.o. Language: Faroese Race: White Ethnicity: Not nor Admit date: 06/10/2019 Discharge date and time: 06/15/2019 Attending Physician: Finn Cano MD Discharge Physician: Stephon Villaseñor MD Discharge Diagnoses (Hospital Problems) and Secondary Diagnoses (Chronic Problems): Active Hospital Problems Diagnosis ??? Severe episode of recurrent major depressive disorder, without psychotic features ??? Diabetes mellitus type 2, insulin dependent Resolved Hospital Problems No resolved problems to display. Active Non-Hospital Problems Diagnosis ??? Pain of right upper extremity ??? Surgical followup ??? Ulnar neuropathy of right upper extremity ??? CIS - Acute non-ST segment elevation myocardial infarction ??? CIS - Depression ??? CIS - Essential hypertension ??? CIS - Gout ??? CIS - Diabetes mellitus type II ??? CIS - Hyperlipidemia Follow-up Recommendations for Providers: Please monitor the patient's condition, and adjust medications accordingly. Cymbalta was increased to 90mg daily. Pt also was followed up with diabetes management while inpatient, and was recommendedfor dc with initial home regimen: Glimiperide 4 mg bid Metformin 1000 mg bid U-500 pen 150 units in PM U-500 100 units in AM ?? Follow-up Providers/Appointments: General Instructions We have made the following appointments for you: [facility] [address] [place] [id number] Phone: Fax: Intake on June 18 at 2:30pm --------- PCP: [facility] Phone: Fax: Sravani Salas, VAMP CUT OUT WORKER: July 02 at 2:30pm Inpatient Provider Contact Information: For questions regarding this document (including laboratory or other studies) or issues relating tothis hospitalization, please contact your patient skin care instructor, CECELIA VOSS RN, through the [facility] [employer] . Issues after hours and on weekends will be handled by the psychiatryresident on- call who can be reached through the [facility] [employer]. Medication Instructions Continue to take all of the medications as instructed. Any medication changes will be addressed at your next outpatient appointment with the individual who prescribes your medications. Advance Care Plan The patient has an appointed surrogate decision maker: no Name of surrogate decision maker: na The patient has medical advance directives: no The patient has psychiatric advance directives: no The patient was offered information about designating a surrogate decision maker, medical advance directives and psychiatric advance directives. The patient declines further information at this time. All eleven elements of the Transition Record have been reviewed with the patient. ENDOCRINOLOGY Continue same regimen that you were on at home before hospitalization. 1. Continue Metformin 1000 mg po bid. 2. Continue Glimepiride 4 mg po bid. 3. Continue Insulin U500 100 u in am and 150 u in pm (20-30 units on the syringe BID). 4. Continue to monitor Blood glucose before meals and at bedtime. 5. Continue low carb diet. 6. Daily exercise 30 min per day or as tolerated. 7. Follow up with Dr. Conteh in Endocrine clinic on 06/26/19. Treatment of Low Blood Sugar (Hypoglycemia) If your BG is lower than 80, you are likely to feel shaky, sweaty and lightheaded. This is a signalthat your body needs more sugar. Quickly eat or drink a small serving of something sweet, such as: 4 ounces fruit juice or regular (not diet) soda 6 [employer] small box of raisins 4 glucose tablets (~15 gm of glucose) If your BG is very low <50, you can double the amount above or take 30 gm of glucose gel/tablets. Sit and rest and you should feel better within a few minutes. Once you are feeling better, try to determine why your BG was so low. Common causes of hypoglycemia include skipping a meal, lots of exercise, too much insulin or any combination of these things. Understanding the cause my help you to avoid another low BG in the future. Call your doctor for blood sugars less than 80 or greater than 300 twice in one day to have your insulin doses adjusted. [facility] Endocrine clinic office Future Appointments and Orders Future Appointments and Orders Future Appointments Provider Department Dept Phone 06/26/2019 1:30 PM LAB, [facility] Arrive at: Cath Lab Area 3L [phone] 06/26/2019 2:30 PM Rodrigo Conteh MD Endocrinology at [facility] Arrive at: Cath Lab Area [phone] Reason for Hospitalization: safety, stabilization and medication management History of Presentation: As per the 06/10/2019 admission H&P: Reid was BIBP to the [facility] ED after a suicide attempt. He took two handfuls of gabapentinin a suicide attempt about an hour prior to being brought to the ED. After he took the overdose, hecalled his son and told him he had overdosed and was as good as . His son called the police, who found Reid in his car at a park in [place], [place]. He was brought to the ED for further workup.Per poison control, he needed to be monitored for 6 hours. Outside ED course was notable for hyperglycemia with BG up to 500. Patient reports that he had not been taking his insulin for 2-3 days, andit was not unusual for him to be that high. ?? The patient cites several recent psychosocial stressors, most notably the recent restraining order filed against him by his . She had filed a temporary restraining order last week, and this precipitated suicidal ideation and caused him to have a psychiatric hospitalization at the [facility]. He was discharged from the [facility] on Saturday. Yesterday, the patient attended court, and his was granted a restraining order for the next year. With the restraining order, he is homeless and living in his car without any belongings. After the us administrative law judge's decision, the patient became suicidaland overdosed shortly thereafter. ?? Now, the patient notes that he is not as hopeless as before because his parents have offered to let him stay with them while he works on finding alternative housing. ?? Patient endorses + depressed mood, + suicidal ideation,+ anhedonia, and + insomnia. He denies change in appetite, concentration, or feelings of hopelessness. He denies any history of ly or psychosis. ?? Hospital Course: Reid Medrano was voluntarily admitted to inpatient psychiatry for safety, stabilization, and medication optimization. Standard admission labs were ordered and pertinent results are located below. Psychiatry Labs: Preg: No results found for: HCGQUAL, HCGQUANT Heme: No results found for: WBC, HGB, HCT, PLATELET, MCV, NEUTROABS Lab Results Component Value Date HA1C 11.0 (H) 06/15/2019 Chem: Lab Results Component Value Date NA 142 06/15/2019 K 4.6 06/15/2019 CL 106 06/15/2019 CO2 24 06/15/2019 BUN 19 06/15/2019 GLUCFASTING 114 (H) 06/15/2019 Lab Results Component Value Date CALCIUM 9.5 06/15/2019 LFTs: Lab Results Component Value Date ALT 35 06/15/2019 AST 29 06/15/2019 ALKPHOS 65 06/15/2019 BILITOT 0.3 06/15/2019 Coags: No results found for: PTT, PT, INR Thyroid: Lab Results Component Value Date TSH 1.08 06/15/2019 Lipids and HgbA1C: Lab Results Component Value Date CHLPL 93 06/15/2019 HDL 34 06/15/2019 CHOLHDL 2.7 06/15/2019 LDLCHOL 28 06/15/2019 LDLDIRECT 63 06/16/2018 TRIG 154 06/15/2019 Lab Results Component Value Date HA1C 11.0 (H) 06/15/2019 Vit Lvls: No results found for: [id number], SFOLATE UA: No results found for: GLUCOSEU, KETONESUA, PROTEINUADIP, BLOODUADIP, LEUKOESTERUA, NITRATEUA, WBCUA (May not represent most recent UA results. See eD-H labs for more details.) Tox: No results found for: ETHANOL, ACTMNPHEN, SALICYLATE, LEAD No results found for: UDAUSCREEN Rx Lvls: No results found for: LITHIUM, CARBAMAZEPIN, VALPROATE, LAMOTRIGINE, CLOZAPINE Reid Medrano was pleasant, cooperative, and behaviorally appropriate for the duration of this admission. During this admission, his cymbalta was increased to 90mg. He tolerated these medication changes well and denied any side effects throughout admission or at time of dicharge. He was also seen by endocrinology and diabetes management during his admission and was on on insulin lantus/lispro during the hospital stay, with recommendations to continue his home dosing of U- 500 dosing of insulin. His mood and mental status gradually improved throughout this admission. He was active in the therapeutic milieu and engaged in his treatment throughout this hospitalization. The hospital course was without complication. On the day of discharge, the patient discussed feeling ready to be discharged. The patient denied thoughts of suicide, homicide, or violence. Mental status exam is below. Follow up was scheduled as described below, and this information was provided to the patient in his After Visit Summary. Patientwas also provided with emergency contact information. Mental Status Exam on Day of Discharge: Ambulates independently. No tics or tremors noted. Age appropriate, casually dressed, good eye contact. Calm and cooperative. Attentive to the interview. Relates well. Speech reg r/r/prosody. Mood good and affect is bright and mood congruent. Thoughts are l/l/gd and associations are intact. Denies SI/HI. Denies AH/VH or paranoia. Language without echolalia or clanging. Memory grossly intact. Alert and oriented x 4. I/J: fair Functional and Cognitive Status: Appropriate for age and for educational level Important Studies: None Discharge Medications: Your Medications Continued medications with new dosing Dose Details DULoxetine 30 mg Cpdr Commonly known as: CYMBALTA Take 3 capsules by mouth daily for 30 days. Start taking on: June 16, 2019 What changed: ?? medication strength ?? how much to take 90 mg Quantity: 90 tablet Refills: 0 Continued medications, unchanged Dose Details allopurinol 300 mg Tab Commonly known as: ZYLOPRIM Take 300 mg by mouth nightly. 300 mg Refills: 0 aspirin 325 mg Tab Take 325 mg by mouth daily. 325 mg Refills: 0 atorvastatin 40 mg Tab Commonly known as: LIPITOR Take 40 mg by mouth nightly. 40 mg Refills: 0 blood sugar diagnostic strips Str Commonly known as: ONETOUCH ULTRA TEST 1 each by Other route 4 times daily. Use as instructed 1 each Quantity: 400 each Refills: 3 flash glucose scanning reader Mis Commonly known as: FREESTYLE NEAL 14 DAY READER As instructed Quantity: 1 each Refills: 1 flash glucose sensor Kit Commonly known as: FREESTYLE NEAL 14 DAY SENSOR q14 days as instructed Quantity: 6 kit Refills: 3 gabapentin 300 mg Cap Commonly known as: NEURONTIN Take 900 mg by mouth 4 times daily. 900 mg Refills: 3 glimepiride 4 mg Tab Commonly known as: AMARYL Take 1 tablet by mouth 2 times daily. 4 mg Quantity: 180 tablet Refills: 3 Ibuprofen 200 mg Cap Take 400 mg by mouth 3 times daily as needed (pain). 400 mg Refills: 0 insulin needles (disposable) 31 gauge x 3/16 Ndle Commonly known as: BD ULTRA-FINE MINI PEN NEEDLE by Other route. 1 box = 100 insulin PEN needles. Quantity: 1 Box Refills: 11 insulin regular CONCENTRATE U-500 500 unit/mL Soln Commonly known as: HumuLIN R U-500 Inject 150-175 Units subcutaneously 2 times daily. May adjust the dose up to 25 units until fastingBG at target of 90-180. 150-175 Units Quantity: 80 mL Refills: 3 Insulin Syringe-Needle U-100 0.5 mL 31 gauge x 5/16 Syrg 1 each by Misc.(Non-Drug; Combo Route) route 2 times daily. 1 each Quantity: 100 Syringe Refills: 11 Insulin Syringe-Needle U-100 1 mL 31 gauge x 5/16 Syrg Commonly known as: BD INSULIN SYRINGE ULT-FINE II 1 each by [facility].(Non-Drug; Combo Route) route 2 times daily (before meals). 1 each Quantity: 100 each Refills: 11 insulin U-500 syringe-needle 1/2 mL 31 gauge x 15/64 Syrg 1 each by Misc.(Non-Drug; Combo Route) route 2 times daily. THIS IS AN INSULIN SYRINGE SPECIFICALLYFOR U-500 DOSING 1 each Quantity: 180 Syringe Refills: 3 isosorbide mononitrate 30 mg Tablet sr Commonly known as: IMDUR Take 60 mg by mouth daily. 60 mg Refills: 0 lisinopril 20 mg Tab Commonly known as: PRINIVIL;ZESTRIL Take 40 mg by mouth nightly. 40 mg Refills: 0 magnesium oxide 400 mg (241.3 mg magnesium) Tab Commonly known as: MAG-OX Take 400 mg by mouth nightly. 400 mg Refills: 3 metFORMIN 500 mg Tablet sr Commonly known as: GLUCOPHAGE XR Take 2 tablets by mouth 2 times daily. 1,000 mg Quantity: 360 tablet Refills: 3 metoprolol succinate 25 mg Tablet sr Commonly known as: TOPROL-XL Take 25 mg by mouth daily. 25 mg Refills: 0 multivitamin Tab Commonly known as: THERAGRAN Take 1 tablet by mouth daily. 1 tablet Refills: 0 NALTREXONE ORAL Take 1 mg by mouth 4 times daily as needed (pain). Indications: pt takes 4.5 mg daily 1 mg Refills: 0 pen needle, diabetic 32 gauge x 1/6 Ndle Commonly known as: NOVOFINE PLUS 1 each by Misc.(Non-Drug; Combo Route) route 4 times daily as needed. 1 each Quantity: 100 each Refills: 11 traZODone 50 mg Tab Commonly known as: DESYREL Take 50 mg by mouth nightly as needed for Sleep. 50 mg Refills: 0 VITAMIN D3 ORAL Take 1 tablet by mouth nightly. 1 tablet Refills: 0 Antipsychotic Quality Measure (select one of three reasons): No Updated Allergies/ADRs: Allergies Allergen Reactions ??? Eptifibatide Other (See Comments) thrombocytopenia ??? Amoxicillin Other (See Comments) Unknown Immunizations Given this Hospitalization: There is no immunization history for the selected administration types on file for this patient. Smoking Status at Discharge: Social History Tobacco Use Smoking Status Never Smoker Smokeless Tobacco Former User ??? Types: Chew Instructions Given to Patient at Discharge: Patient Instructions PATIENT DISCHARGE INSTRUCTIONS Reason for admission: suicide attempt with gabapentin Principal diagnosis at discharge: Severe episode of recurrent major depressive disorder, without psychotic features Vital Signs: BP: 145/75, Heart Rate: 87, Temp: 36.7 ??C (98.1 ??F), Resp: 16, BMI (Calculated): 34.76 Height: 167.6 cm (5' 6) (06/10/192031) Weight: 97.7 kg (215 lb 6.2 oz) (06/10/192031) Operations and Procedures: None Important Lab Data: Psychiatry Labs: Preg: No results found for: HCGQUAL, HCGQUANT Heme: No results found for: WBC, HGB, HCT, PLATELET, MCV, NEUTROABS Lab Results Component Value Date HA1C 11.0 (H) 06/15/2019 Chem: Lab Results Component Value Date NA 142 06/15/2019 K 4.6 06/15/2019 CL 106 06/15/2019 CO2 24 06/15/2019 BUN 19 06/15/2019 GLUCFASTING 114 (H) 06/15/2019 Lab Results Component Value Date CALCIUM 9.5 06/15/2019 LFTs: Lab Results Component Value Date ALT 35 06/15/2019 AST 29 06/15/2019 ALKPHOS 65 06/15/2019 BILITOT 0.3 06/15/2019 Coags: No results found for: PTT, PT, INR Thyroid: Lab Results Component Value Date TSH 1.08 06/15/2019 Lipids and HgbA1C: Lab Results Component Value Date CHLPL 93 06/15/2019 HDL 34 06/15/2019 CHOLHDL 2.7 06/15/2019 LDLCHOL 28 06/15/2019 LDLDIRECT 63 06/16/2018 TRIG 154 06/15/2019 Lab Results Component Value Date HA1C 11.0 (H) 06/15/2019 Vit Lvls: No results found for: [id number], SFOLATE UA: No results found for: GLUCOSEU, KETONESUA, PROTEINUADIP, BLOODUADIP, LEUKOESTERUA, NITRATEUA, WBCUA (May not represent most recent UA results. See eD-H labs for more details.) Tox: No results found for: ETHANOL, ACTMNPHEN, SALICYLATE, LEAD No results found for: UDAUSCREEN Rx Lvls: No results found for: LITHIUM, CARBAMAZEPIN, VALPROATE, LAMOTRIGINE, CLOZAPINE Pending Labs, Procedures, and studies at Discharge: none Discharge Disposition: Home with parents Primary Care Physician: Sravani Salas, VAMP CUT OUT WORKER [phone] Special Physician Instructions: Pt had home cymbalta increased to 90mg. Will be set up as well with outpatient providers. Special Instructions Provided to Reid Medrano: During your admission, you had your cymbalta increased to 90 mg daily. Diabetes management also sawyou while you were inpatient, and recommended to continue your home regimen: Glimiperide 4 mg bid Metformin 1000 mg bid U-500 pen 150 units in PM U-500 100 units in AM ?? Call your doctor, your local mental health center, or your local emergency room if you develop worsening symptoms of depression, anxiety, thoughts of harming yourself, thoughts of harming others, or any other decline in your overall condition. [facility] Emergency Services: [facility] [phone] emergency services [facility] Emergency Services: [phone] [facility] Central Access Services: [phone] [facility] Main Line: [phone] Activity level: no restrictions from psychiatry Diet: no restrictions from psychiatry Driving: do not drive if sedated by medications Medications have been reviewed with the patient and the patient understands the use and side effects of these medications as evidenced by discussions on interdisciplinary rounds. A copy of the AVS has been reviewed with, and given to, the patient. Discharge References/Attachments None Discharge Condition/Prognosis: Satisfactory condition. Prognosis is dependent on patient's participation in ongoing treatment and adherence with prescribed medications. Signed: Stephon Villaseñor MD 06/15/2019 Inpatient Provider Contact Information: Emergency Services (Crisis Line): [phone] [facility]: [phone] [facility] Main Line: [phone] Associated attestation - Finn Cano MD - 06/15/2019 4:30 PM EDT I have personally seen and examined the patient. The patient denies suicidal ideations or homicidalideations or paranoia. The patient is future oriented and has specific practical and behavioral goals upon leaving the hospital. Patient reports hospitalization has been helpful, denied suicidal ideations since being admitted, and is future oriented to continue to attend outpatient treatment. Alcohol Use Patient does not meet criteria for unhealthy alcohol use. Drug Use Disorder Pt does not meet criteria for substance use disorder Tobacco Use Patient is a non-smoker. The patient is ready for discharge with aftercare per AVS. Greater than 30 minutes was spent coordinating discharge for this patient and included [id number] and exam, explanation of after visit instructions and medications to the patient and necessary caregivers, documentation, and prescription management. documented in this encounter Discharge Instructions * Discharge Instructions* Haris Garzon MD - 06/15/2019 4:13 PM EDT We have made the following appointments for you: [address] [place] [address] Phone: Fax: Intake on June 18 at 2:30pm --------- PCP: [facility] Phone: Fax: Sravani Salas, VAMP CUT OUT WORKER: July 02 at 2:30pm Inpatient Provider Contact Information: For questions regarding this document (including laboratory or other studies) or issues relating tothis hospitalization, please contact your patient skin care instructor, CECELIA VOSS RN, through the [facility] [employer] . Issues after hours and on weekends will be handled by the psychiatryresident on- call who can be reached through the [facility] [employer]. Medication Instructions Continue to take all of the medications as instructed. Any medication changes will be addressed at your next outpatient appointment with the individual who prescribes your medications. Advance Care Plan The patient has an appointed surrogate decision maker: no Name of surrogate decision maker: na The patient has medical advance directives: no The patient has psychiatric advance directives: no The patient was offered information about designating a surrogate decision maker, medical advance directives and psychiatric advance directives. The patient declines further information at this time. All eleven elements of the Transition Record have been reviewed with the patient. ENDOCRINOLOGY 1. Continue Metformin 1000 mg po bid. 2. Continue Glimepiride 4 mg po bid. 3. Continue Lantus 40 u night. 4. Stop Insulin U500. 5. Continue to monitor Blood glucose before breakfast and at bedtime. 6. Continue low carb diet. 7. Daily exercise 30 min per day or as tolerated. 8. Follow up with Dr. Conteh in Endocrine clinic on 06/26/19. Treatment of Low Blood Sugar (Hypoglycemia) If your BG is lower than 80, you are likely to feel shaky, sweaty and lightheaded. This is a signalthat your body needs more sugar. Quickly eat or drink a small serving of something sweet, such as: 4 ounces fruit juice or regular (not diet) soda 6 [employer] small box of raisins 4 glucose tablets (~15 gm of glucose) If your BG is very low <50, you can double the amount above or take 30 gm of glucose gel/tablets. Sit and rest and you should feel better within a few minutes. Once you are feeling better, try to determine why your BG was so low. Common causes of hypoglycemia include skipping a meal, lots of exercise, too much insulin or any combination of these things. Understanding the cause my help you to avoid another low BG in the future. Call your doctor for blood sugars less than 80 or greater than 300 twice in one day to have your insulin doses adjusted. [facility] Endocrine clinic office * Patient Instructions* Stephon Villaseñor MD - 06/15/2019 8:32 AM EDT PATIENT DISCHARGE INSTRUCTIONS Reason for admission: suicide attempt with gabapentin Principal diagnosis at discharge: Severe episode of recurrent major depressive disorder, without psychotic features Vital Signs: BP: 145/75, Heart Rate: 87, Temp: 36.7 ??C (98.1 ??F), Resp: 16, BMI (Calculated): 34.76 Height: 167.6 cm (5' 6) (06/10/192031) Weight: 97.7 kg (215 lb 6.2 oz) (06/10/192031) Operations and Procedures: None Important Lab Data: Psychiatry Labs: Preg: No results found for: HCGQUAL, HCGQUANT Heme: No results found for: WBC, HGB, HCT, PLATELET, MCV, NEUTROABS Lab Results Component Value Date HA1C 11.0 (H) 06/15/2019 Chem: Lab Results Component Value Date NA 142 06/15/2019 K 4.6 06/15/2019 CL 106 06/15/2019 CO2 24 06/15/2019 BUN 19 06/15/2019 GLUCFASTING 114 (H) 06/15/2019 Lab Results Component Value Date CALCIUM 9.5 06/15/2019 LFTs: Lab Results Component Value Date ALT 35 06/15/2019 AST 29 06/15/2019 ALKPHOS 65 06/15/2019 BILITOT 0.3 06/15/2019 Coags: No results found for: PTT, PT, INR Thyroid: Lab Results Component Value Date TSH 1.08 06/15/2019 Lipids and HgbA1C: Lab Results Component Value Date CHLPL 93 06/15/2019 HDL 34 06/15/2019 CHOLHDL 2.7 06/15/2019 LDLCHOL 28 06/15/2019 LDLDIRECT 63 06/16/2018 TRIG 154 06/15/2019 Lab Results Component Value Date HA1C 11.0 (H) 06/15/2019 Vit Lvls: No results found for: [id number], SFOLATE UA: No results found for: GLUCOSEU, KETONESUA, PROTEINUADIP, BLOODUADIP, LEUKOESTERUA, NITRATEUA, WBCUA (May not represent most recent UA results. See eD-H labs for more details.) Tox: No results found for: ETHANOL, ACTMNPHEN, SALICYLATE, LEAD No results found for: UDAUSCREEN Rx Lvls: No results found for: LITHIUM, CARBAMAZEPIN, VALPROATE, LAMOTRIGINE, CLOZAPINE Pending Labs, Procedures, and studies at Discharge: none Discharge Disposition: Home with parents Primary Care Physician: Sravani Salas, [employer] OUT WORKER [phone] Special Physician Instructions: Pt had home cymbalta increased to 90mg. Will be set up as well with outpatient providers. Special Instructions Provided to Reid Medrano: During your admission, you had your cymbalta increased to 90 mg daily. Diabetes management also sawyou while you were inpatient, and recommended to continue your home regimen: Glimiperide 4 mg bid Metformin 1000 mg bid U-500 pen 150 units in PM U-500 100 units in AM ?? Call your doctor, your local mental health center, or your local emergency room if you develop worsening symptoms of depression, anxiety, thoughts of harming yourself, thoughts of harming others, or any other decline in your overall condition. Local [facility] Emergency Services: [facility] [phone] emergency services [facility] Emergency Services: [phone] [facility] Central Access Services: [phone] [facility] Main Line: [phone] Activity level: no restrictions from psychiatry Diet: no restrictions from psychiatry Driving: do not drive if sedated by medications Medications have been reviewed with the patient and the patient understands the use and side effects of these medications as evidenced by discussions on interdisciplinary rounds. A copy of the AVS has been reviewed with, and given to, the patient. documented in this encounter Medications at Time [...] gauge x 5/16 Syringe 1 each by Mis.(Non-Drug; Combo Route) route 2 times daily. 100 [...] Take by mouth as needed. 06/09/2019 02/17/2021 metoprolol succinate XL (TOPROL-XL) 50 mg Tablet Sustained Release 24 hr daily. 05/07/2019 02/17/2021 DULoxetine (CYMBALTA) 30 mg Capsule, Delayed Release(E.C.) Take 3 capsules by mouth daily for 30 days. 90 tablet 06/16/2019 07/16/2019 metFORMIN (GLUCOPHAGE XR) 500 mg Tablet Sustained Release 24 hr Take 2 tablets by mouth 2 times daily. 360 tablet 3 12/26/2018 09/08/2019 flash glucose scanning reader (FREESTYLE NEAL 14 DAY READER) [facility] As instructed 1 each 1 12/26/2018 09/08/2019 [...] U-500 DOSING 180 Syringe 3 10/20/2018 12/28/2019 traZODone (DESYREL) 50 mg Tablet Take 50 mg by mouth nightly as needed for Sleep. 09/08/2019 meTOPROLOL succinate (TOPROL-XL) 25 mg Tablet Sustained Release 24 hr Take 25 mg by mouth daily. 05/23/2015 09/08/2019 documented as of this encounter Progress Notes * Tessie George RN - 06/15/2019 2:53 PM EDT Psychiatric Nursing Discharge Note Patient Completed Relapse Prevention Plan: Yes Patient aware of follow-up appointments: Yes Patient evidences understanding of medication use and regime: Yes Patient belongings returned: Yes Patient was given opportunity to place crisis number in their personal cellphone: Yes Patient left unit with: (Self) At what time? 14:40 * Haris Garzon MD - 06/15/2019 2:40 PM EDT Images from the original note were not included. Follow Up Diabetes Consult ?? Patient Interview No complaints and no acute events overnight. Doing well and is being discharged today. States he is not compliant with his medications or diet at home. Did not monitor his blood glucose at home in a long time. He states he is going to take care of himself and will follow all the recommendations from now. He is aware that he has an upcoming appointment in Endocrine clinic on 06/26/19. ?? Objective BP 145/75 (Patient Position: Sitting) Pulse 87 Temp 36.7 ??C (98.1 ??F) (Oral) Resp 16 Ht 167.6 cm (5' 6) Wt 97.7 kg (215 lb 6.2 oz) SpO2 100% BMI 34.76 kg/m? Gen: NAD, talking in clear sentences, normal mood. HEENT: EOMI, no pallor. Lungs: Breathing non-labored CVS; Normal S1/S2 Neuro: CN 2-12 grossly intact Psych: Normal affect ?? Current Regimen Lantus: 30 units daily Lispro 1:10 insulin to carbohydrate ratio Lispro for correction q 4 hours using CF 20 sliding scale ?? Recent Glucose Levels ?? ASSESSMENT Mr. Medrano is 54 y.o.male??with PMH significant for DM (Last A1C of 11 on 06/15/19) who was admitted on??06/10/2019??for medication overdose. Type 2 DM suboptimally??controlled and complicated by??medication and diet non compliance and psychiatric issues including difficulty coping with stress.??He is currently with variability of blood glucose levels while hospitalized requiring adjustment of insulin regimen and DM medications. He is requiring much lower doses of Insulin than he takes at home. Discussed with Dr. Conteh, who recommended to discontinue U500 and continue Lantus upon discharge. Patient left the hospital before updating him about the new discharge plan. Called and spoke to him over his mobile phone and explained him that he needs to stop using Insulin U500 and continue to take lantus 40 u starting tomorrow morning besides continuing oral agents. Insulin Lantus sent to his pharmacy. He voices understanding of the new regimen and agrees with the plan. Updated the resident Dr. Villaseñor about the change in discharge instructions. # Poorly Controlled Type 2 DM Discharge Instructions: 1. Continue Metformin 1000 mg po bid. 2. Continue Glimepiride 4 mg po bid. 3. Discontinue Insulin U500. 4. Start Lantus 40 units every morning. 5. Continue to monitor Blood glucose before breakfast and at bedtime. 6. Continue low carb diet. 7. Daily exercise 30 min per day or as tolerated. 8. Follow up with Dr. Conteh in Endocrine clinic on 06/26/19. Thank you for allowing us to participate in the care of this patient. D/W Dr. Daniel Garzon PGY4 Fellow, Endocrinology Pager: [phone] ?? Associated attestation - Rachna Sanchez MD - 06/15/2019 11:27 PM EDT I discussed this patient with Dr. Garzon. I reviewed the hayward portions of the history and physical exam, and reviewed pertinent lab data. I was involved in all medical decision making and agree with this plan. RACHNA SANCHEZ MD Support Service Techcar shagger Section of Endocrinology [facility] * Tyler Bose MS - 06/15/2019 10:49 AM EDT Inpatient Daily Group Note Group: Goals: Reviewed rules and expectations, daily schedule, patients' progress and goals and read daily recovery reading. Attendance: Present Behavior: Quiet Therapeutic Work Observed: Minimal Mood: Calm Notes: Patient has goal to go home. Patient encouraged to identify one coping skill that will help with the transition home and he said be around people and communicate. Plan to focus on discharge. Patient has plan to meet with diabetes team to get recommendations and then discharge. TYLER BOSE MS 06/15/2019 * Rena Gaines MHT - 06/14/2019 11:40 AM EDT Inpatient Daily Group Note Group: Goals Attendance: Present Behavior: Quiet Therapeutic Work Observed: Minimal Mood: Calm Notes: Reminded patients of the following guidelines: that during skills groups (times specified) the television, computer and patient phones are not available for use. Outlined group expectations of: not being able to attend group late in addition to not being able to leave group once there. Grouproom protocol was discussed: no food, no leaving for the bathroom and water only. Also reminded patients of the twice daily room checks (once per shift) and the rationale for doing so. Patient's goals are: To try to stay positive. RUDY Vela 06/14/2019 Patient attended the following therapeutic activities: _X Workshop __Walk __Art-therapy __Exercise and Stretching Group __Pet Therapy Significant observations: Patient read quietly sitting in the sun. RUDY VELA 06/14/2019 Inpatient Daily Group Note Group: Grounding skills were presented (mental, physical and soothing) to help with detaching from emotional pain. Attendance: Present Behavior: Quiet Therapeutic Work Observed: Minimal Mood: Calm Notes: Patient was quiet throughout group and stated during wrap up that he thought this skill would help him be more positive. Based on this this therapist is unclear if he understood the material presented. He also stated that it was a lot to take it and he would have to think more about it. RUDY VELA 06/14/2019 Patient attended the following therapeutic activities: __Workshop _XWalk __Art-therapy __Exercise and Stretching Group __Pet Therapy Significant observations: Engaged with other patients when spoken to. RUDY Vela 06/14/2019 * Saskia Hernandez MD - 06/14/2019 11:27 AM EDT Images from the original note were not included. Follow Up Diabetes Consult Patient Interview No overnight events. PM dose of Lantus 20U was discontinued by Dr. Conteh yesterday after seeinghis BG trend. Despite this, BG trending low yesterday with 74, 76, and 61. 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 Objective Temp: -- Heart Rate: -- Resp: -- BP: (127)/(66) SpO2: -- Heart Rate from SpO2: -- Gen: NAD, talking in clear sentences. Interactive, sitting up in bed speaking HEENT: EOMI, normal dentition Lungs: Breathing non-labored Neuro: CN 2-12 grossly intact Psych: Normal affect Current Regimen Lantus: 40 units daily Lispro 1:6 insulin to carbohydrate ratio Lispro for correction q 4 hours using CF 20 sliding scale Recent Glucose Levels Recent Labs 06/14/19 0758 06/14/19 0417 06/14/19 0025 06/13/19 2033 06/13/19 1636 06/13/19 1208 06/13/19 0738 06/13/19 0410 06/13/19 0014 06/12/19 2126 06/12/19 1707 06/12/19 1215 POCGLU 132 88 61* 76 73 142 105 89 88 95 132 193 ASSESSMENT 54 y.o.male with PMH significant for DM (Last A1C of 11.5 on 12/26/18) who was admitted on 06/10/2019for type II diabetes suboptimally controlled and complicated by psychiatric issues including difficulty coping with stress (which results in patient not taking his medications, unfortunately). He is currently with variability of blood glucose levels while hospitalized requiring adjustment of insulin regimen and DM medications. It is surprising how well Mr. Medrano's BG is controlled here on a much lower dose of insulin than he is at home. He states he feels good and prefers this regimen with the carb counting than what he does at home so it might be possible to have him adhere to this on discharge. We want to avoid low BGespecially in someone with hypoglycemic unawareness so we will decrease his overall insulin regimen. PLAN - Decrease Lantus: 30 units daily (down from 40) - DecreaseLispro 1:10 insulin to carbohydrate ratio (down from 1:6) - Decrease Lispro for correction q 4 hours using CF 30 sliding scale (down from CF 20) Thank you for allowing us to provide care for your patient Case discussed with attending Rn Case Manager Hospice Dr. Ba Weekend Coverage: Saskia Hernandez MD PGY-4 Endocrinology, Diabetes and Metabolism Fellow [phone] 06/14/2019 x Recommendations relayed to primary treating team. Diabetes Management Consult service will continue to follow. Recommendations are above. Diabetes Management Consult service will sign off. If clinical changes occur or new questions arise, please re-consult. Associated attestation - Silvino Ba DO - 06/14/2019 11:58 AM EDT I have seen the patient and reviewed Dr Hernandez's history and I agree with the details as written. Theassessment and plan were formulated in discussion with me and I agree with them as documented. Silvino aB DO, MS Support Service Techcar shagger Section of Endocrinology [facility] * Magdalena Alexis MD - 06/14/2019 8:33 AM EDT Psychiatry Inpatient - Progress Note 06/14/2019 ID: Reid Medrano is a 54 y.o. male admitted on 06/10/2019 for suicide attempt with overdose on gabapentin. Hospital day 4. Diagnosis: Severe episode of recurrent major depressive disorder, without psychotic features Pertinent medical issues being addressed: Insulin-dependent type 2 diabetes Interval History: (1,1,4) Narrative: Overnight, no acute events. Depression 5, anxiety a little. Pain 6. No SI or HI. Finger sticks all good. Slept 7 hours. Tells me that he is alright. No AVH or paranioa. No SI or HI. A little anxious about discharge. Sleeping okay. No SI or HI. Will stay with parents after DC - sad he cannot talk to his . Review of Systems: (0,1,2) CONST no fever CV RESP no shortness of breath GI no nausea NEURO MS PSYCH See above Other Suicide Risk Factors on Day of Admission: Enduring Factors: absence of significant social support and limited coping skills ?? Dynamic Factors: depressive symptoms, rehearsal of a suicide plan/Preparatory behavior, sense of hopelessness and recent or impending loss ?? Protective Factors: family and community support, protective cultural/restoration beliefs and future orientation ?? Access to Firearms: none currently. Unclear as to access at parents' house ?? Physical Exam: (1,6,9) Vitals (24hr Range): Temp: -- Resp: -- Heart Rate: -- BP: (127)/(66) SpO2: -- Patient Vitals for the past 168 hrs: Weight 06/10/192031 97.7 kg (215 lb 6.2 oz) Musculoskeletal System: normal gait and balance, ambulates independently and no stiffness Mental Status Exam: ?? Appearance: age appropriate and well dressed ?? Behavior: cooperative with the interview and good eye contact ?? Speech: normal pitch, normal volume, normal rate and normal rhythm ?? Language: fluent in ukrainian ?? Mood: alright, anxious about discharge ?? Affect: constricted and mood-congruent ?? Thought Process: linear ?? Associations: intact ?? Thought Content: denied homicidal ideation and denied suicidal ideation ?? Perception: denied auditory hallucinations denied visual hallucinations ?? Orientation: grossly intact by interview ?? Attention/Concentration: able to sustain focus and able to resist distraction ?? Cognition: grossly intact by interview ?? Memory: recent and remote memory grossly intact ?? Fund of Knowledge: appropriate for age and level of functioning ?? Insight: limited ?? Judgment: fair [place] Suicide Risk Scale - Initial Assessment: Wish to be : Have you wished you were or wished you could go to sleep and not wake up?: Yes (06/10/192207) Suicidal Thoughts: Have you had any actual thoughts of killing yourself?: Yes (06/10/192207) Suicidal Thoughts with Method (without Specific Plan or Intent to Act): Have you been thinking about how you might do this?: Yes (06/10/192207) Suicidal Intent (without Specific Plan): Have you had these thoughts and had some intention of acting on them?: Yes (06/10/192207) Suicidal Intent with Specific Plan: Have you started to work out or worked out the details of how to kill yourself? Do you intend to carry out this plan?: Yes (06/10/192207) Suicide Behavior Question: Have you ever done anything, started to do anything, or prepared to do anything to end your life?: Yes (06/10/192207) Was this within the past 3 months?: Yes (06/10/192207) [place] Suicide Risk Scale - Daily Assessment (most recently completed): Suicidal Thoughts: Since you were last asked, have you had any actual thoughts of killing yourself?: No (06/13/191399) Suicide Behavior Question: Since you were last asked have you done anything, started to do anything, or prepared to do anything to end your life?: No (06/13/191399) Current Medications: Scheduled: ??? multivitamin with minerals 1 tablet Oral Daily ??? insulin lispro 0-12 Units Subcutaneous TID WC ??? DULoxetine 90 mg Oral Daily ??? insulin lispro 1-12 Units Subcutaneous Q4H VERNA ??? insulin glargine 40 Units Subcutaneous Daily ??? glimepiride 4 mg Oral BID WC ??? cholecalciferol (Vitamin D3) 2,000 Units Oral Nightly ??? metFORMIN 1,000 mg Oral BID WC ??? allopurinol 300 mg Oral Nightly ??? aspirin 325 mg Oral Daily ??? atorvastatin 40 mg Oral QPM ??? isosorbide mononitrate 60 mg Oral Daily ??? lisinopril 40 mg Oral Nightly ??? magnesium oxide 400 mg Oral Nightly ??? metoprolol succinate 25 mg Oral Daily ??? gabapentin 900 mg Oral 4 Times Daily PRN: ibuprofen, flu vacc (6 mos-64 yrs)(PF), traZODone, Glucose 40% oral gel OR dextrose ORglucagon (human recombinant) Labs: Psychiatry Labs Preg: No results found for: HCGQUAL, HCGQUANT Heme: No results found for: WBC, HGB, HCT, PLATELET, MCV, NEUTROABS No results found for: HA1C, SEDRATE Chem: Lab Results Component Value Date NA 137 06/11/2019 K 4.7 06/11/2019 CL 99 06/11/2019 CO2 25 06/11/2019 BUN 19 06/11/2019 GLUCOSE 292 (H) 06/11/2019 Lab Results Component Value Date CALCIUM 9.6 06/11/2019 LFTs: No results found for: ALT, AST, GGT, ALKPHOS, BILITOT, AMMONIA Coags: No results found for: PTT, PT, INR Thyroid: No results found for: TSH, [id number], TT4 Lipids and HgbA1C: Lab Results Component Value Date LDLDIRECT 63 06/16/2018 Lab Results Component Value Date HA1C 11.5 (H) 12/26/2018 Vit Lvls: No results found for: [id number], SFOLATE UA: No results found for: GLUCOSEU, KETONESUA, PROTEINUADIP, BLOODUADIP, LEUKOESTERUA, NITRATEUA, WBCUA (May not represent most recent UA results. See eD-H labs for more details.) Tox: No results found for: ETHANOL, ACTMNPHEN, SALICYLATE, LEAD No results found for: UDAUSCREEN Rx Lvls: No results found for: LITHIUM, CARBAMAZEPIN, VALPROATE, LAMOTRIGINE, CLOZAPINE Assessment: (including Suicide Risk Assessment) Reid Medrano is a 54 y.o. male admitted on 06/10/2019 for suicidal ideation in the context of worsening psychosocial stressors, including obtaining a one- year restraint order on patient. 06/14/19 - anxious about discharge, but otherwise doing okay. Going to groups. meds helpful. No medchanges today. Current Suicide Assessment: currently denies SI and HI. Feels safe on the unit. Diagnosis: Severe episode of recurrent major depressive disorder, without psychotic features Plan: # adjustment disorder ? Arrange outpatient follow up with therapist in his area ? Continue Cymbalta 90 mg ? Continue trazodone 50mg qHS PRN insomnia ? ?? # neuro: chronic pain ? Hold naltrexone 1mg QID PRN pain as it is non-formulary and patient is out ? Duloxetine 90mg ? Continue gabapentin 900mg QID ? Continue ibuprofen 400mg TID PRN breakthrough pain ?? # CV: HTN, HLD ? Continue Imdur 60mg daily ? Continue ASA 325mg daily ? Continue lisinopril 40mg daily ? Continue metoprolol succinate 50mg daily ? Continue atorvastatin 40mg qHS ?? # Endo: insulin dependent T2DM ? Continue metformin 1000mg BID ? Continue glimepiride 4mg BID ? Continue vitamin D3 ? Hold insulin U-500 150U BID per endocrinology ? Lantus 40 units every morning ? Lantus 20 units nightly ? Lispro custom sliding scale for blood glucose greater than 140 with correction factor of 1: 10 ifblood glucose greater than 180, 1: 20 if blood glucose less than 180 (see endocrinology scale below) For BG 140 - 160: Give 1 unit For BG 161 - 180: Give 2 units For BG 181 - 200: Give 4 units For BG 201 - 220: Give 6 units For BG 221 - 240: Give 9 units For BG > 240: Give 12 units and recheck in 2 hrs; if BG remains > 240, give 12 units (no morethan two times) and call for new basal insulin orders. ? Dietitian consult for carb counting diet ? Diabetes management following # rheum, other: h/o gout ? Continue allopurinol 300mg qHS ? Continue Magnesium oxide 400mg qHS ? Continue vitamin D ? Continue multivitamin ?? # Disposition: - After stabilization, patient expected to return home to live with his parents. #PRNS: Sleep: Trazodone 50 mg nightly as needed Constipation: MiraLAX Pain: Ibuprofen as needed 400 mg 3 times daily Outpatient Care: Provider Name Date Contacted By Treatment Team Current Mental Health Prescriber Current Therapist PCP Sravani Salas APRN Patient Instruction/Education Provided: Patient provided verbal instructions during rounds regarding the treatment plan. I have reviewed and agree with the multidisciplinary treatment plan. I certify that the patient requires inpatient care for psychiatric treatment for safety, stabilization, and any other therapeutic intervention that could conceivably improve the patient's condition, including medication management, group psychotherapy, establishing adequate outpatient care, and/or diagnostic study. Signed By: MAGDALENA ALEXIS MD 06/14/2019 * Razia Wray - 06/13/2019 12:33 PM EDT Inpatient Daily Group Note Group: Goals Attendance: Present Behavior: Conversational Therapeutic Work Observed: Moderate Mood: Calm Notes: Pt.'s goals for today are: Get feeling better on myself; focus on me instead of others. . RAZIA WRAY 06/13/2019 Pt. participated in the following therapeutic activities: _X__ Workshop Read magazines _X__ Walk Social and engaged about his employment present and past. Razia Wray M.A. Inpatient Daily Group Note Group: Relapse Prevention and Safety Planning Focus of group was review of the plan and discussion on ways to make effective one for self. Reviewed and discussed all questions on page 3 at patients request. Attendance: Present Behavior: Conversational Therapeutic Work Observed: Moderate Mood: Calm Notes: Sat quietly and listened. Did share when directly asked. RAZIA WRAY 06/13/2019 Inpatient Daily Group Note Group: Journal Writing Techniques Focus of group was demonstrating six different journal techniques and discussion about benefits. Attendance: Present Behavior: Conversational Therapeutic Work Observed: Moderate Mood: Calm Notes: Pt. attentive shared prior to group he is not a good rewriter and only rewriter checks. Was attentive and stated he would not use techniques because of difficulty with writing. RAZIA WRAY 06/13/2019 * Magdalena Alexis MD - 06/13/2019 8:16 AM EDT Psychiatry Inpatient - Progress Note 06/13/2019 ID: Reid Medrano is a 54 y.o. male admitted on 06/10/2019 for suicide attempt with overdose on gabapentin. Hospital day 3. Diagnosis: Severe episode of recurrent major depressive disorder, without psychotic features Pertinent medical issues being addressed: Insulin-dependent type 2 diabetes Interval History: (1,1,4) Narrative: Overnight, no acute events. Depression 3, anxiety 3. Finger sticks 97-136. Slept 8 hours. Tells me he is not too bad. Slept well. meds are good. No SE. Depression 4, anxiety 3. No SI or HI. Attending groups. Denies AVH. Review of Systems: (0,1,2) CONST no fever CV RESP no shortness of breath GI no nausea NEURO MS PSYCH See above Other Suicide Risk Factors on Day of Admission: Enduring Factors: absence of significant social support and limited coping skills ?? Dynamic Factors: depressive symptoms, rehearsal of a suicide plan/Preparatory behavior, sense of hopelessness and recent or impending loss ?? Protective Factors: family and community support, protective cultural/restoration beliefs and future orientation ?? Access to Firearms: none currently. Unclear as to access at parents' house ?? Physical Exam: (1,6,9) Vitals (24hr Range): Temp: [36.9 ??C (98.4 ??F)-37 ??C (98.6 ??F)] Resp: [16] Heart Rate: [79-101] BP: (124-136)/(76-80) SpO2: [96 %-100 %] Patient Vitals for the past 168 hrs: Weight 06/10/192031 97.7 kg (215 lb 6.2 oz) Musculoskeletal System: normal gait and balance, ambulates independently and no stiffness Mental Status Exam: ?? Appearance: age appropriate and well dressed ?? Behavior: cooperative with the interview and good eye contact ?? Speech: normal pitch, normal volume, normal rate and normal rhythm ?? Language: fluent in ukrainian ?? Mood: depression is 4 ?? Affect: constricted and mood-congruent ?? Thought Process: linear ?? Associations: intact ?? Thought Content: denied homicidal ideation and denied suicidal ideation ?? Perception: denied auditory hallucinations denied visual hallucinations ?? Orientation: grossly intact by interview ?? Attention/Concentration: able to sustain focus and able to resist distraction ?? Cognition: grossly intact by interview ?? Memory: recent and remote memory grossly intact ?? Fund of Knowledge: appropriate for age and level of functioning ?? Insight: limited ?? Judgment: fair [place] Suicide Risk Scale - Initial Assessment: Wish to be : Have you wished you were or wished you could go to sleep and not wake up?: Yes (06/10/192207) Suicidal Thoughts: Have you had any actual thoughts of killing yourself?: Yes (06/10/192207) Suicidal Thoughts with Method (without Specific Plan or Intent to Act): Have you been thinking about how you might do this?: Yes (06/10/192207) Suicidal Intent (without Specific Plan): Have you had these thoughts and had some intention of acting on them?: Yes (06/10/192207) Suicidal Intent with Specific Plan: Have you started to work out or worked out the details of how to kill yourself? Do you intend to carry out this plan?: Yes (06/10/192207) Suicide Behavior Question: Have you ever done anything, started to do anything, or prepared to do anything to end your life?: Yes (06/10/192207) Was this within the past 3 months?: Yes (06/10/192207) [place] Suicide Risk Scale - Daily Assessment (most recently completed): Suicidal Thoughts: Since you were last asked, have you had any actual thoughts of killing yourself?: No (06/12/19799) Suicide Behavior Question: Since you were last asked have you done anything, started to do anything, or prepared to do anything to end your life?: No (06/12/19799) Current Medications: Scheduled: ??? multivitamin with minerals 1 tablet Oral Daily ??? insulin lispro 0-12 Units Subcutaneous TID WC ??? DULoxetine 90 mg Oral Daily ??? insulin lispro 1-12 Units Subcutaneous Q4H VERNA ??? insulin glargine 40 Units Subcutaneous Daily ??? insulin glargine 20 Units Subcutaneous Nightly ??? glimepiride 4 mg Oral BID WC ??? cholecalciferol (Vitamin D3) 2,000 Units Oral Nightly ??? metFORMIN 1,000 mg Oral BID WC ??? allopurinol 300 mg Oral Nightly ??? aspirin 325 mg Oral Daily ??? atorvastatin 40 mg Oral QPM ??? isosorbide mononitrate 60 mg Oral Daily ??? lisinopril 40 mg Oral Nightly ??? magnesium oxide 400 mg Oral Nightly ??? metoprolol succinate 25 mg Oral Daily ??? gabapentin 900 mg Oral 4 Times Daily PRN: ibuprofen, flu vacc (6 mos-64 yrs)(PF), traZODone, Glucose 40% oral gel OR dextrose ORglucagon (human recombinant) Labs: Psychiatry Labs Preg: No results found for: HCGQUAL, HCGQUANT Heme: No results found for: WBC, HGB, HCT, PLATELET, MCV, NEUTROABS No results found for: HA1C, SEDRATE Chem: Lab Results Component Value Date NA 137 06/11/2019 K 4.7 06/11/2019 CL 99 06/11/2019 CO2 25 06/11/2019 BUN 19 06/11/2019 GLUCOSE 292 (H) 06/11/2019 Lab Results Component Value Date CALCIUM 9.6 06/11/2019 LFTs: No results found for: ALT, AST, GGT, ALKPHOS, BILITOT, AMMONIA Coags: No results found for: PTT, PT, INR Thyroid: No results found for: TSH, X2VUBME, TT4 Lipids and HgbA1C: Lab Results Component Value Date LDLDIRECT 63 06/16/2018 Lab Results Component Value Date HA1C 11.5 (H) 12/26/2018 Vit Lvls: No results found for: [id number], SFOLATE UA: No results found for: GLUCOSEU, KETONESUA, PROTEINUADIP, BLOODUADIP, LEUKOESTERUA, NITRATEUA, WBCUA (May not represent most recent UA results. See eD-H labs for more details.) Tox: No results found for: ETHANOL, ACTMNPHEN, SALICYLATE, LEAD No results found for: UDAUSCREEN Rx Lvls: No results found for: LITHIUM, CARBAMAZEPIN, VALPROATE, LAMOTRIGINE, CLOZAPINE Assessment: (including Suicide Risk Assessment) Reid Medrano is a 54 y.o. male admitted on 06/10/2019 for suicidal ideation in the context of worsening psychosocial stressors, including obtaining a one- year restraint order on patient. 06/13/19 - feels he is improving. Feels the meds are helpful and no SE. No med changes today. Current Suicide Assessment: currently denies SI and HI. Feels safe on the unit. Diagnosis: Severe episode of recurrent major depressive disorder, without psychotic features Plan: # adjustment disorder ? Arrange outpatient follow up with therapist in his area ? Continue Cymbalta 90 mg ? Continue trazodone 50mg qHS PRN insomnia ? ?? # neuro: chronic pain ? Hold naltrexone 1mg QID PRN pain as it is non-formulary and patient is out ? Duloxetine 90mg ? Continue gabapentin 900mg QID ? Continue ibuprofen 400mg TID PRN breakthrough pain ?? # CV: HTN, HLD ? Continue Imdur 60mg daily ? Continue ASA 325mg daily ? Continue lisinopril 40mg daily ? Continue metoprolol succinate 50mg daily ? Continue atorvastatin 40mg qHS ?? # Endo: insulin dependent T2DM ? Continue metformin 1000mg BID ? Continue glimepiride 4mg BID ? Continue vitamin D3 ? Hold insulin U-500 150U BID per endocrinology ? Lantus 40 units every morning ? Lantus 20 units nightly ? Lispro custom sliding scale for blood glucose greater than 140 with correction factor of 1: 10 ifblood glucose greater than 180, 1: 20 if blood glucose less than 180 (see endocrinology scale below) For BG 140 - 160: Give 1 unit For BG 161 - 180: Give 2 units For BG 181 - 200: Give 4 units For BG 201 - 220: Give 6 units For BG 221 - 240: Give 9 units For BG > 240: Give 12 units and recheck in 2 hrs; if BG remains > 240, give 12 units (no morethan two times) and call for new basal insulin orders. ? Dietitian consult for carb counting diet ? Diabetes management following # rheum, other: h/o gout ? Continue allopurinol 300mg qHS ? Continue Magnesium oxide 400mg qHS ? Continue vitamin D ? Continue multivitamin ?? # Disposition: - After stabilization, patient expected to return home to live with his parents. #PRNS: Sleep: Trazodone 50 mg nightly as needed Constipation: MiraLAX Pain: Ibuprofen as needed 400 mg 3 times daily Outpatient Care: Provider Name Date Contacted By Treatment Team Current Mental Health Prescriber Current Therapist PCP Sravani Salas APRN Patient Instruction/Education Provided: Patient provided verbal instructions during rounds regarding the treatment plan. I have reviewed and agree with the multidisciplinary treatment plan. I certify that the patient requires inpatient care for psychiatric treatment for safety, stabilization, and any other therapeutic intervention that could conceivably improve the patient's condition, including medication management, group psychotherapy, establishing adequate outpatient care, and/or diagnostic study. Signed By: MAGDALENA ALEXIS MD 06/13/2019 * Razia Wray - 06/12/2019 11:04 AM EDT Inpatient Daily Group Note Group: Goals Attendance: Present Behavior: Conversational Therapeutic Work Observed: Moderate Mood: Calm Notes: Reviewed being prepared for group in advance, no t.v., computer, phones during 11:15 and 1:15 . 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 RAZIA WRAY 06/12/2019 Inpatient Daily Group Note Group: Stress Management Focus of group was review of the stress cycle and discussion on how to plan for stress early on with healthy reminders and self nuturting behaviors. Attendance: Present Behavior: Quiet Therapeutic Work Observed: Moderate Mood: Calm Notes: Pt. attentive although quiet. RAZIA WRAY 06/12/2019 Inpatient Daily Group Note Group: CBT: Reviewed model, and steps to take to apply tool to decrease stress about triggers and situations throughout the day. Participants practiced applying tool to situations that were stressfultoday to explore other ways of approaching it to manage stress and emotions. Attendance: Present Behavior: Quiet Therapeutic Work Observed: Minimal Mood: Calm Notes: Patient minimally engaged and did not seem to understand tool. TYLER BOSE, MS 06/12/2019 Pt. participated in the following therapeutic activities: _X__ Walk __X_ Workshop Notes: Spoke of receiving his [employer] license. Inpatient Daily Group Note Group: Wellness Focus of group was discussion about difficult relationships and setting boundaries, owning what is ones and giving up the rest. Attendance: Present Behavior: Conversational Therapeutic Work Observed: Moderate Mood: Calm Notes: Pt. shared difficult relationship with his and asked for feedback in how to approach situation. Did not shared that she had a restraining order on him. RAZIA WRAY 06/12/2019 * Stephon Villaseñor MD - 06/12/2019 10:48 AM EDT Psychiatry Inpatient - Progress Note 06/12/2019 ID: Reid Medrano is a 54 y.o. male admitted on 06/10/2019 for suicide attempt with overdose on gabapentin. Hospital day 2. Diagnosis: Severe episode of recurrent major depressive disorder, without psychotic features Pertinent medical issues being addressed: Insulin-dependent type 2 diabetes Interval History: (1,1,4) Narrative: Overnight, no acute events. Patient received 20 units of Lantus last night at around 6 PM. Per RN report, patient slept 8.25 hours last night. Patient reported his depression as a 4, anxietyas 0. Patient's blood sugars have ranged 81-190s. Diabetes management is following patient. This morning, patient states he feels okay. Patient has found appropriate discharge plan for him,in which he says he will go home with his parents. Review of Systems: (0,1,2) CONST no fever CV RESP no shortness of breath GI no nausea NEURO MS PSYCH See above Other Suicide Risk Factors on Day of Admission: Enduring Factors: absence of significant social support and limited coping skills ?? Dynamic Factors: depressive symptoms, rehearsal of a suicide plan/Preparatory behavior, sense of hopelessness and recent or impending loss ?? Protective Factors: family and community support, protective cultural/restoration beliefs and future orientation ?? Access to Firearms: none currently. Unclear as to access at parents' house ?? Physical Exam: (1,6,9) Vitals (24hr Range): Temp: [37 ??C (98.6 ??F)] Resp: [16] Heart Rate: [98-101] BP: (135-136)/(65-77) SpO2: [96 %] Patient Vitals for the past 168 hrs: Weight 06/10/192031 97.7 kg (215 lb 6.2 oz) Musculoskeletal System: normal gait and balance, ambulates independently and no stiffness Mental Status Exam: ?? Appearance: age appropriate and well dressed ?? Behavior: cooperative with the interview and good eye contact ?? Speech: normal pitch, normal volume, normal rate and normal rhythm ?? Language: fluent in ukrainian ?? Mood: I just don't get why this all happened! ?? Affect: constricted and mood-congruent ?? Thought Process: linear ?? Associations: intact ?? Thought Content: denied homicidal ideation and denied suicidal ideation ?? Perception: denied auditory hallucinations denied visual hallucinations ?? Orientation: grossly intact by interview ?? Attention/Concentration: able to sustain focus and able to resist distraction ?? Cognition: grossly intact by interview ?? Memory: recent and remote memory grossly intact ?? Fund of Knowledge: appropriate for age and level of functioning ?? Insight: limited ?? Judgment: fair [place] Suicide Risk Scale - Initial Assessment: Wish to be : Have you wished you were or wished you could go to sleep and not wake up?: Yes (06/10/192207) Suicidal Thoughts: Have you had any actual thoughts of killing yourself?: Yes (06/10/192207) Suicidal Thoughts with Method (without Specific Plan or Intent to Act): Have you been thinking about how you might do this?: Yes (06/10/192207) Suicidal Intent (without Specific Plan): Have you had these thoughts and had some intention of acting on them?: Yes (06/10/192207) Suicidal Intent with Specific Plan: Have you started to work out or worked out the details of how to kill yourself? Do you intend to carry out this plan?: Yes (06/10/192207) Suicide Behavior Question: Have you ever done anything, started to do anything, or prepared to do anything to end your life?: Yes (06/10/192207) Was this within the past 3 months?: Yes (06/10/192207) [place] Suicide Risk Scale - Daily Assessment (most recently completed): Suicidal Thoughts: Since you were last asked, have you had any actual thoughts of killing yourself?: No (06/12/19799) Suicide Behavior Question: Since you were last asked have you done anything, started to do anything, or prepared to do anything to end your life?: No (06/12/19799) Current Medications: Scheduled: ??? multivitamin with minerals 1 tablet Oral Daily ??? insulin lispro 0-12 Units Subcutaneous TID WC ??? DULoxetine 90 mg Oral Daily ??? insulin lispro 1-12 Units Subcutaneous Q4H VERNA ??? insulin glargine 40 Units Subcutaneous Daily ??? insulin glargine 20 Units Subcutaneous Nightly ??? glimepiride 4 mg Oral BID WC ??? cholecalciferol (Vitamin D3) 2,000 Units Oral Nightly ??? metFORMIN 1,000 mg Oral BID WC ??? allopurinol 300 mg Oral Nightly ??? aspirin 325 mg Oral Daily ??? atorvastatin 40 mg Oral QPM ??? isosorbide mononitrate 60 mg Oral Daily ??? lisinopril 40 mg Oral Nightly ??? magnesium oxide 400 mg Oral Nightly ??? metoprolol succinate 25 mg Oral Daily ??? gabapentin 900 mg Oral 4 Times Daily PRN: ibuprofen, flu vacc (6 mos-64 yrs)(PF), traZODone, Glucose 40% oral gel OR dextrose ORglucagon (human recombinant) Labs: Psychiatry Labs Preg: No results found for: HCGQUAL, HCGQUANT Heme: No results found for: WBC, HGB, HCT, PLATELET, MCV, NEUTROABS No results found for: HA1C, SEDRATE Chem: Lab Results Component Value Date NA 137 06/11/2019 K 4.7 06/11/2019 CL 99 06/11/2019 CO2 25 06/11/2019 BUN 19 06/11/2019 GLUCOSE 292 (H) 06/11/2019 Lab Results Component Value Date CALCIUM 9.6 06/11/2019 LFTs: No results found for: ALT, AST, GGT, ALKPHOS, BILITOT, AMMONIA Coags: No results found for: PTT, PT, INR Thyroid: No results found for: TSH, X2HQVHW, TT4 Lipids and HgbA1C: Lab Results Component Value Date LDLDIRECT 63 06/16/2018 Lab Results Component Value Date HA1C 11.5 (H) 12/26/2018 Vit Lvls: No results found for: [id number], SFOLATE UA: No results found for: GLUCOSEU, KETONESUA, PROTEINUADIP, BLOODUADIP, LEUKOESTERUA, NITRATEUA, WBCUA (May not represent most recent UA results. See eD-H labs for more details.) Tox: No results found for: ETHANOL, ACTMNPHEN, SALICYLATE, LEAD No results found for: UDAUSCREEN Rx Lvls: No results found for: LITHIUM, CARBAMAZEPIN, VALPROATE, LAMOTRIGINE, CLOZAPINE Assessment: (including Suicide Risk Assessment) Reid Medrano is a 54 y.o. male admitted on 06/10/2019 for suicidal ideation in the context of worsening psychosocial stressors, including obtaining a one- year restraint order on patient. Patientdoes meet some neurovegetative symptoms of depression, however does not meet criteria for major depressive episode. Patient continues to endorse feeling frustration and anxiety over what he may have done wrong in regards to his relationship with his . Patient has been participating well in the group milieu as well as in group therapy. And would be ready for discharge on Friday 06/15. Patient at this time would not meet IEA criteria, despite suicide attempt, as patient's depression is very highly related to psychosocial stressors. Patient has been able to contract for safety while on the unit, and has not demonstrated unsafe or risky behaviors. Patient would be allowed to leave AMA over the weekend, however would need to leave with parents, and would need safety planning. Disposition plan for patient will be to reconnect him with [facility] mental health services and to schedule an appointment with mental health team [place] [facility] Current Suicide Assessment: The patient's current risk status is less than most patients treated inpatient at [facility]. Factors contributing to this include lack of previous suicide attempts and no history of substance use. Meanwhile, the patient's risk state is higher than his baseline given the recent psychiatric hospitalization, the recent suicide attempt, and the restraining order. The patient's risk state would be mitigated by an inpatient psychiatric hospitalization consisting of medication optimization, engagement in the therapeutic milieu, and group psychotherapy targeting distress tolerance and healthy coping skills. Diagnosis: Severe episode of recurrent major depressive disorder, without psychotic features Plan: # adjustment disorder ? Arrange outpatient follow up with therapist in his area ? Increased dose of Cymbalta to 90 mg yesterday ? Continue trazodone 50mg qHS PRN insomnia ? Will need to ask about guns at parents' home now that he is moving in with parents temporarily ?? # neuro: chronic pain ? Hold naltrexone 1mg QID PRN pain as it is non-formulary and patient is out ? Duloxetine 90mg ? Continue gabapentin 900mg QID ? Continue ibuprofen 400mg TID PRN breakthrough pain ?? # CV: HTN, HLD ? Continue Imdur 60mg daily ? Continue ASA 325mg daily ? Continue lisinopril 40mg daily ? Continue metoprolol succinate 50mg daily ? Continue atorvastatin 40mg qHS ?? # Endo: insulin dependent T2DM ? Continue metformin 1000mg BID ? Continue glimepiride 4mg BID ? Continue vitamin D3 ? Hold insulin U-500 150U BID per endocrinology ? Lantus 40 units every morning ? Lantus 20 units nightly ? Lispro custom sliding scale for blood glucose greater than 140 with correction factor of 1: 10 ifblood glucose greater than 180, 1: 20 if blood glucose less than 180 (see endocrinology scale below) For BG 140 - 160: Give 1 unit For BG 161 - 180: Give 2 units For BG 181 - 200: Give 4 units For BG 201 - 220: Give 6 units For BG 221 - 240: Give 9 units For BG > 240: Give 12 units and recheck in 2 hrs; if BG remains > 240, give 12 units (no morethan two times) and call for new basal insulin orders. ? Dietitian consult for carb counting diet ? Diabetes management following # rheum, other: h/o gout ? Continue allopurinol 300mg qHS ? Continue Magnesium oxide 400mg qHS ? Continue vitamin D ? Continue multivitamin ?? # Disposition: - After stabilization, patient expected to return home to live with his parents. #PRNS: Sleep: Trazodone 50 mg nightly as needed Constipation: MiraLAX Pain: Ibuprofen as needed 400 mg 3 times daily Outpatient Care: Provider Name Date Contacted By Treatment Team Current Mental Health Prescriber Current Therapist PCP Sravani Salas APRN Patient Instruction/Education Provided: Patient provided verbal instructions during rounds regarding the treatment plan. I have reviewed and agree with the multidisciplinary treatment plan. I certify that the patient requires inpatient care for psychiatric treatment for safety, stabilization, and any other therapeutic intervention that could conceivably improve the patient's condition, including medication management, group psychotherapy, establishing adequate outpatient care, and/or diagnostic study. Signed By: Stephon Villaseñor MD 06/12/2019 Associated attestation - Finn Cano MD - 06/12/2019 3:38 PM EDT INPATIENT PSYCHIATRY TEACHING PHYSICIAN INVOLVEMENT I saw and evaluated the patient with the above named resident/ See their note for details.. I reviewed the patient's history during the visit and I agree with the details as written. My exam confirms the resident's findings. The assessment and plan were formulated in discussion with me and I agree with them as documented. Major issues addressed/discussed: Adjustment Disorder - Continue duloxetine 90 mg po q day for depressive symptoms. Continue medications for chronic pain, hypertension, hyperlipidemia, and continue endocrinology / diabetes management consult recommendations. Group and milieu therapy to address coping skills, triggers for depressive symptoms and suicidal ideations, and cognitive distortions. Additional comments: I certify that the patient requires inpatient care for psychiatric treatment for safety, stabilization, and any other therapeutic intervention that could conceivably improve the patient's condition, including medication management, group psychotherapy, establishing adequate outpatient care, and/or diagnostic study. * Aurea Ramirez, [employer]TAIN - 06/11/2019 4:03 PM EDT OFFICE OF CARE MANAGEMENT PSYCHOSOCIAL ASSESSMENT Present at Interview: Patient Date: June 11, 2019 1. Referral request and/or presenting problem(s): Patient is a 54 year old MWM (currently , [address]),who presents at [facility] to address his recent suicide attempt, unresolved marital issues, ongoing employment issues and overall inability to cope/funcion safely and effectively in his community. Please refer to admit note for details. 2. Family Constellation, Pertinent History: Patient is one of 2 children born and raised in family of origin. Parents are alive, both age 83 living in [place]. Older brother Low age 57 also lives in [place]. Patient reports that he had not had contact with his parents for several years, but have reconnected and he is planning to stay with them after discharge from [facility]. Patient has monthly contact with his brother. Patient was born and raised in [place] and described childhood as we were poor. Extended family lived in [place], [place] and around the [place]. Patient reports little to no contact with them. Patient left home at age 21 to move in with girlfriend (now ). 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 Son currently attends [employer] in [place], [place]. Patient has frequent contact with him. Patient continues to struggle with events leading up to hospitalization. called police when patient was attempting suicide. A 7 day temporary restraining was put into place. Patient recently went to court and reports that the [place] administrative law judge extended it to 1 year. Patient reports that his did not say anything to the [place] administrative law judge and laughed when the restraining order was placed. Patient denies any domestic violence and reports I thought things were OK. has made statements about other people paying me special attention to patient but did not elaborate. 3. Patient's understanding/adjustment to illness, coping skills & weaknesses: Patient struggledto identify coping skills don't know everything is at home, like to donn, work on cars. Strengths identified as polite, can fix anything, hard worker, reliable and dependable. Weaknesses identified as trying to change myself, work on being positive, become healthier. 4. Assessment Pt's medical needs: () Understands Pt's medical needs () Understands Pt's emotional needs () Can provide support of pt. (x) Family coping: Comments: Parents and son are identified as supportive. 5. Current social supports including spiritual support: Mother, friend Teddy, [facility]. 6. Current living situation concerns: (x) Yes () No Comments: Patient cannot return to his home, will stay with parents. 7.Chemical abuse or other abuse in patient & family: () Yes (x) No Comments: 8. Pt/Family mental health concerns: (x) Yes () No Comments: Patient is very concerned about events leading up to hospitalization. 9. Financial concerns: () Yes (x) No Comments: 10. Legal concerns: (x) Yes () No Comments: [address] 11. Specialized agency involvement: (x) Mental Health Services () Protective Services () Home Health Other: Needs referral in his community. 12. Advance Directives: () Yes (x) No 13. 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 Stressors: (x) Limited Support () Obtaining Medication () Financial Concerns () Marital Conflict () Family Conflict () Illness of Family Member () Insurance () Substance Abuse () School Issues () Extensive Home Care Need () Employment Issues () Transportation (x) Inadequate Coping Skills () Loss/ () Frequent Hospitalizations () Sexuality (x) Change in Home Environment () Socialization Issues (x) Concerns about Diagnosis (x) Mental health Issues 16. Assessment: Pleasant, engageable male, appearing in mild distress throughout interview process.Patient identifies unresolved marital conflict coupled with chronic pain issues as primary triggersto suicidal ideation. Patient denies any current intent or plan and states that he can keep himselfsafe while at [facility]. Patient acknowledges lack of coping skills/strategies and is actively attending group sessions in order to learn new skills. Patient is agreeable to referral to outpatient care. 17. Plan/Goals: Specify: Psychosocial Assessment (x) Crisis Intervention/Counseling: Assist with discharge planning () Conflict Resolution: (x) Education/Support of Treatment Plan: () Legal Ethical Issues: (x) Community/Financial Resource Referral: () Advance Directive: () Other: Plan discussed with patient/family (x) Yes () No Plan agreed upon by patient/family (x) Yes () No * Razia Wray - 06/11/2019 10:38 AM EDT Inpatient Daily Group Note Group: Goals Attendance: Present Behavior: Quiet and Attentive Therapeutic Work Observed: Minimal Mood: Calm Notes: Reminded patients of the following guidelines: that during skills groups (times specified) the television, computer and patient phones are not available for use. Outlined group expectations of: not being able to attend group late in addition to not being able to leave group once there. Grou[employer]om protocol was discussed: no food, no leaving for the bathroom and water only. Also reminded patients of the twice daily room checks (once per shift) and the rationale for doing so. Patient's goals are: To try to get to know people better; know their names. When asked about goals regarding self he stated to start to feel better. When asked what this would look like he stated he didn't understand the question. When this therapist tried different approach of what that would looklike what he would see or other people would see he stated you would be feeling better. RUDY Vela 06/11/2019 Inpatient Daily Group Note Group: The concepts of validation and self-validation were presented and discussed. The skill of SCARED self was reviewed; softness with yourself, attitude towards yourself, creating a kind environment (avoid people who belittle, crisis, blame), radical self-acceptance and deeply like yourself. Attendance: Present Behavior: Quiet and Attentive Therapeutic Work Observed: Minimal Mood: Stable and Calm Notes: During wrap up patient stated that this take away message was the same as the person's before his: to be more be positive about himself. Rena Gaines Aly 06/11/2019 Inpatient Daily Group Note Group: TAC Focus of group was working with peers on difficult problem solving task and facilitated discussion on how activity is metaphor for recovery and managing life. Attendance: Present Behavior: Conversational Therapeutic Work Observed: Moderate Mood: Calm Notes: Pt. spoke of trying to find a solution. Was unable to on the spot state how activity relatedto his life and that he would need time to think more about the question.. RAZIA WRAY 06/11/2019 Patient attended the following therapeutic activities: __Workshop _XWalk __Art-therapy __Exercise and Stretching Group __Pet Therapy Significant observations: Patient was quiet on the walk though engaged when others spoke to him. RENA GAINES [facility] 06/11/2019 Pt. participated in the rewriter's workshop with theme of I am... Pt. did writing and choose not to share his piece. Razia Wray M.A. Inpatient Daily Group Note Group: Patient & family education Focus of group was review of support MINE can provide. Reviewed symptoms of BPD and BPAD similarities and differences. Notes: Pt. called out of group at start of group. RAZIA WRAY 06/11/2019 * Anita Schultz RN - 06/11/2019 1:20 AM EDT Newly ordered medications given later than expected due to getting meds verified and delivered. RN verified with MD that it was ok to give hs meds at this hour due to the time frame between now and morning dose. Pt denies pain at this time. BS 320 @0100 and given lantus 40units as ordered, will recheck in 2hrsas ordered. VSS. Pt back to sleep; denies needs at this time. documented in this encounter H&P Notes * Jacinto Banda MD - 06/10/2019 9:05 PM EDT Psychiatry Inpatient Admission - History & Physical Note 06/11/2019 Name: Reid Medrano Age: 54 y.o. Gender: Male Marital Status: recently Children: son Employment: unemployed; worked comp pending Residence: [address] [place] [id number] Outpatient Providers: (include location) Current Mental Health Prescriber: PCP Current Therapist: none PCP: Sravani Salas APRN Chief Complaint: 54 y.o. Male presents to [facility] after a suicide attempt in the setting of marital stress. Interval History: Reid was BIBP to the [facility] ED after a suicide attempt. He took two handfuls of gabapentinin a suicide attempt about an hour prior to being brought to the ED. After he took the overdose, hecalled his son and told him he had overdosed and was as good as . His son called the police, who found Reid in his car at a park in [place], [place]. He was brought to the ED for further workup.Per poison control, he needed to be monitored for 6 hours. Outside ED course was notable for hyperglycemia with BG up to 500. Patient reports that he had not been taking his insulin for 2-3 days, andit was not unusual for him to be that high. The patient cites several recent psychosocial stressors, most notably the recent restraining order filed against him by his . She had filed a temporary restraining order last week, and this precipitated suicidal ideation and caused him to have a psychiatric hospitalization at the [facility]. He was discharged from the [facility] on Saturday. Yesterday, the patient attended court, and his was granted a restraining order for the next year. With the restraining order, he is homeless and living in his car without any belongings. After the us administrative law judge's decision, the patient became suicidaland overdosed shortly thereafter. Now, the patient notes that he is not as hopeless as before because his parents have offered to let him stay with them while he works on finding alternative housing. Patient endorses + depressed mood, + suicidal ideation,+ anhedonia, and + insomnia. He denies change in appetite, concentration, or feelings of hopelessness. He denies any history of ly or psychosis. Psychiatric Review of Systems: Sustained Depressed Mood: Yes Sustained Elevated Mood: No Sustained Irritable Mood: Yes Flashbacks: No Nightmares: No Panic Attacks: Yes Chronic Worry: Yes Psychotic Symptoms: No Obsessions/Compulsions: No Violence: No Self Harm: No Suicide Risk Factors on Day of Admission: Enduring Factors: absence of significant social support and limited coping skills Dynamic Factors: depressive symptoms, rehearsal of a suicide plan/Preparatory behavior, sense of hopelessness and recent or impending loss Protective Factors: family and community support, protective cultural/restoration beliefs and future orientation Access to Firearms: none currently. Unclear as to access at parents' house Other Psychiatric History: Prior diagnoses: - depression - anxiety Past hospitalization and location: - [facility]: June 2019 for SI after temporary restraining order was filed Suicide attempt details: - June 09, 2019: took two handfuls of gabapentin Past psychiatric medications: - duloxetine 60mg daily for mood and pain (current) - gabapentin 900mg QID for pain (current) - naltrexone 1mg QID PRN for pain (current) Substance Use History/Treatment: - denies illicit or recreational use of marijuana, opiates, benzodiazepines, stimulants, or hallucinogens Audit-C Tobacco Use Status (Tob-1) 1. How often do you have a drink containing alcohol? Never - (0 pt) 2. How many standard drinks containing alcohol do you have a typical day? 0 - (0pt) 3. How often do you have six or more drinks on one occasion? Never - (0pt) Total Score: 0 In men, a score of 4 or more is considered positive, optimal for identifying hazardous drinking or active alcohol use disorder. In women, a score of 3 or more is considered positive (same as above). Tobacco Use Status (Tob-1): Have you used tobacco products in the past 30 days? No (If yes, list type of tobacco, volume used and time frame e.g. # of years). Tobacco Use Treatment (Tob-2 - Medication) Would you like a medication to help with tobacco cessation? No Tobacco Use Treatment (Tob-2 - Counseling) Would you like counseling for help with quitting tobacco? No Outpatient Medications: No current facility-administered medications on file prior to encounter. Current Outpatient Medications on File Prior to Encounter Medication Sig Dispense Refill ??? metFORMIN (GLUCOPHAGE XR) 500 mg Tablet Sustained Release 24 hr Take 2 tablets by mouth 2 timesdaily. 360 tablet 3 ??? insulin regular CONCENTRATE U-500 (HUMULIN R U-500) 500 unit/mL Solution Inject 150-175 Units subcutaneously 2 times daily. May adjust the dose up to 25 units until fasting BG at target of 90-180. 80 mL 3 ??? Ibuprofen 200 mg Capsule Take [...] Indications: pt takes 4.5 mg daily ??? DULoxetine (CYMBALTA) 60 mg Capsule, Delayed Release(E.C.) Take 60 mg by mouth daily. ??? traZODone (DESYREL) 50 mg Tablet Take 50 mg by mouth nightly as needed for Sleep. ??? allopurinol (ZYLOPRIM) 300 mg Tablet Take [...] Take 40 mg by mouth nightly. ??? meTOPROLOL succinate (TOPROL-XL) 25 mg Tablet Sustained Release 24 hr Take 25 mg by mouth daily. ??? glimepiride (AMARYL) 4 mg Tablet Take 1 tablet by mouth 2 times daily. 180 tablet 3 ??? flash glucose scanning reader (FREESTYLE NEAL 14 DAY READER) [facility] As instructed 1 each 1 ??? flash glucose sensor (FREESTYLE NEAL 14 DAY SENSOR) Kit q14 days as instructed 6 kit 3 ??? insulin U-500 syringe-needle 1/2 mL 31 gauge x 15/64 Syringe 1 each by Misc.(Non-Drug; Combo Route) route 2 times daily. THIS IS AN INSULIN SYRINGE SPECIFICALLY FOR U-500 DOSING 180 Syringe 3 ??? Insulin Syringe-Needle U-100 0.5 mL 31 gauge x 5/16 Syringe 1 each by Misc.(Non-Drug; Combo Route) route 2 times daily. 100 Syringe 11 ??? pen needle, diabetic (NOVOFINE PLUS) 32 gauge x 1/6 Needle 1 each by Misc.(Non-Drug; Combo Route) route 4 times daily as needed. 100 each 11 ??? Blood Sugar Diagnostic (ONE TOUCH ULTRA TEST) test strip 1 each by Other route 4 times daily. Use as instructed 400 each 3 ??? Insulin [place], Disposable, (BD INSULIN PEN NEEDLE UF MINI) 31 x 3/16 Ndle by Other route. 1box = 100 insulin PEN needles. 1 Box 11 ??? Insulin Syringe-Needle U-100 (BD INSULIN SYRINGE ULT-FINE II) 1 mL 31 x 5/16 Syrg 1 each by Misc.(Non-Drug; Combo Route) route 2 times daily (before meals). 100 each 11 Allergies: Allergies Allergen Reactions ??? Eptifibatide Other (See Comments) thrombocytopenia ??? Amoxicillin Other (See Comments) Unknown Problem List: Patient Active Problem List Diagnosis Code ??? CIS - Acute non-ST segment elevation myocardial infarction ??? CIS - Depression ??? CIS - Diabetes mellitus type II ??? CIS - Essential hypertension ??? CIS - Gout ??? CIS - Hyperlipidemia ??? 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 Surgical followup Z09 ??? Pain of right upper extremity M79.601 ??? Adjustment disorder F43.20 Past Medical/Surgical History: Past Medical History: Diagnosis Date ??? Diabetes mellitus Past Surgical History: Procedure Laterality Date ??? CREATED BY INTERFACE cardiac stent to RCA 01/2008 Procedure Date: January 2008 ??? CREATED BY INTERFACE Hand operations x2 Procedure Date: Unknown ??? PRO APPLICATION LONG ARM SPLINT SHOULDER TO HAND Right 01/20/2016 SPLINT APPLICATION, LONG ARM performed by Galdino Wood MD at [facility] ??? PRO PERCUT IMPLANT, NEUROELEC, PERIPH NERVE N/A 07/11/2018 IMPLANT NEUROSTIMULATOR ELECTRODES, PERIPHERAL NERVE (WRVU 2.32) performed by Galdino Wood MD at [facility] ??? PRO REVISE ULNAR NERVE AT ELBOW Right 01/20/2016 NEUROPLASTY &/OR TRANSPOSITION, ULNAR NERVE AT ELBOW performed by Galdino Wood MD at [facility] ??? PRO REVISE ULNAR NERVE AT ELBOW Right 08/31/2016 NEUROPLASTY &/OR TRANSPOSITION, ULNAR NERVE AT ELBOW (WRVU 7.26) performed by Galdino Wood MD at [facility] ??? PRO TISSUE GRAFTS, OTHER (E.G. AUTOLOGOUS FAT GRAFT) Right 08/31/2016 TISSUE GRAFT, PARATENON, FAT, DERMIS (OTHER) (WRVU 5.79) performed by Galdino Wood MD at [facility] Family Medical/Psychiatric History: - denies family history of mental illness or suicide attempts Social History: - housing: currently living out of his car but will likely be moving in with parents - family: was to of 33 years. Has an 18 year old son - employment: currently unemployed. 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 if applicable) No hematuria MSK No muscle weakness SKIN No rash NEURO no seizures PSYCH See above ENDO No diaphoresis HEME/LYMPH No edema ALL/IMMUNO No Frequent Infections Physical Exam: Vitals Office Visit from 01/28/2019 in [facility] at [place] Weight 99.8 kg (220 lb) Heart Rate 84 Resp 18 BP 149/81 Patient Position Sitting SpO2 100 % Musculoskeletal System: normal gait and balance, ambulates independently and no abnormal movements (See also: MSE: Behavior) GEN No acute distress HEAD Atraumatic EYES No scleral icterus ENT Normal dentition NECK No thyromegaly CV No JVD PULM Non-labored respirations ABD ND EXTR No peripheral edema NEURO Grossly nonfocal SKIN Warm and dry Mental Status Exam: ?? Appearance: age appropriate, casually dressed, well groomed and overweight ?? Behavior: cooperative with the interview, calm and good eye contact ?? Speech: normal pitch, normal volume, normal rate and normal rhythm ?? Language: fluent in ukrainian ?? Mood: not great ?? Affect: full ?? Thought Process: linear and logical ?? Associations: intact ?? Thought Content: denied homicidal ideation, denied suicidal ideation and no paranoid delusions ?? Perception: denied auditory hallucinations denied visual hallucinations not observed responding to internal stimuli ?? Orientation: grossly intact by interview ?? Attention/Concentration: able to attend interview ?? Cognition: grossly intact by interview ?? Memory: recent and remote memory grossly intact ?? Fund of Knowledge: appropriate for age and level of functioning ?? Insight: fair ?? Judgment: limited Wish to be : Have you wished you were or wished you could go to sleep and not wake up?: Yes (06/10/192207) Suicidal Thoughts: Have you had any actual thoughts of killing yourself?: Yes (06/10/192207) Suicidal Thoughts with Method (without Specific Plan or Intent to Act): Have you been thinking about how you might do this?: Yes (06/10/192207) Suicidal Intent (without Specific Plan): Have you had these thoughts and had some intention of acting on them?: Yes (06/10/192207) Suicidal Intent with Specific Plan: Have you started to work out or worked out the details of how to kill yourself? Do you intend to carry out this plan?: Yes (06/10/192207) Suicide Behavior Question: Have you ever done anything, started to do anything, or prepared to do anything to end your life?: Yes (06/10/192207) Was this within the past 3 months?: Yes (06/10/192207) Labs: Psychiatry Labs: From OSH on 06/09: WBC: 9.96 Hgb: 15.9 HCT: 45.1 Platelets: 236 Glucose: 516 (H) K: 5.1 Na: 134 (L) Cl: 99 Ca: 9.4 A.3 (H) BUN: 27 Cr: 1.57 (H) eGFR: 46.44 (L) Alk phos: 95 AST: 17 ALT: 43 EtOH: negative UA: >1000 glucose, negative ketones, trace blood, no bacteria or leuk esterase UDS: neg for cocaine, methadone, benzos, amphetamines, THC, opiates, barbiturates, TCAs Acetaminophen, salicylates: neg Assessment: (including Suicide Risk Assessment) Reid Medrano is a 54 y.o. Male who presents to [facility] after a suicide attempt in the setting of marital stress. Reid describes some neurovegetative symptoms of depression, but he would not meet criteria for a major depressive episode. Presentation appears most consistent with an adjustment disorder given that the suicidal ideation centered around the results of the court hearing. Less likely to be substance induced (denies substance use, UDS negative) or related to bipolar disorder (no history of ly). Patient is on Cymbalta for chronic pain and depression; this could be increased to further optimizethe dose, although it seems most likely that the patient would benefit most from therapy. Will consult endocrinology given his use of U-500 insulin. Current Suicide Assessment: The patient's current risk status is less than most patients treated inpatient at [facility]. Factors contributing to this include lack of previous suicide attempts and no history of substance use. Meanwhile, the patient's risk state is higher than his baseline given the recent psychiatric hospitalization, the recent suicide attempt, and the restraining order. The patient's risk state would be mitigated by an inpatient psychiatric hospitalization consisting of medication optimization, engagement in the therapeutic milieu, and group psychotherapy targeting distress tolerance and healthy coping skills. Diagnosis: adjustment disorder with depressed mood Plan: # adjustment disorder ?? Admit to psychiatry ?? Arrange outpatient follow up with therapist in his area ?? Continue duloxetine 60mg daily; could consider increasing dose ?? Continue trazodone 50mg qHS PRN insomnia ?? Ask about guns at parents' home now that he is moving in with parents temporarily # neuro: chronic pain ?? Hold naltrexone 1mg QID PRN pain as it is non-formulary and patient is out ?? Continue duloxetine 60mg daily; could consider increasing dose ?? Continue gabapentin 900mg QID ?? Continue ibuprofen 400mg TID PRN breakthrough pain # CV: HTN, HLD ?? Continue Imdur 60mg daily ?? Continue ASA 325mg daily ?? Continue lisinopril 40mg daily ?? Continue metoprolol succinate 50mg daily ?? Continue atorvastatin 40mg qHS # Endo: insulin dependent T2DM ?? Continue metformin 1000mg BID ?? Continue glimepiride 4mg BID ?? Continue vitamin D3 ?? Hold insulin U-500 150U BID per endocrinology ?? Start Lantus 40U qHS ?? Carb correction of 1:6 ?? Insulin resistant sliding scale ?? Hypoglycemia protocol ?? Repeat BMP in AM to monitor electrolyte abnormalities ?? Endocrine consult for further management of severe insulin resistance and home regimen of U-500 insulin # rheum, other: h/o gout ?? Continue allopurinol 300mg qHS ?? Continue Magnesium oxide 400mg qHS ?? Continue vitamin D ?? Continue multivitamin # PRN medications ?? Sleep: trazodone 50mg qHS PRN ?? Constipation: Miralax 17g packet daily PRN ?? Pain: ibuprofen 400mg TID PRN # Routine ?? Activity: activity as tolerated; escort to groups ?? Diet: CHO II diet ?? DVT ppx: unnecessary as VTE unlikely given activity level and low risk ?? Safety: room check q15 minutes, room with low ligature potential, supervised medication adjustments, arrange close follow-up and tight safety plan, provide patient crisis and safety instructions prior to d/c ?? Dispo: After stabilization, patient expected to return home to self-care with tight follow up with mental health care providers. Expected d/c date: tentatively 06/15 ?? Prevention: Pneumovax and Influenza immunizations to be given as needed ?? Code: FULL code Signed By: Jacinto Banda MD 06/11/2019 Associated attestation - Finn Cano MD - 06/11/2019 3:21 PM EDT INPATIENT PSYCHIATRY TEACHING PHYSICIAN INVOLVEMENT I saw and evaluated the patient without the above named resident.. I reviewed the patient's history during the visit and I agree with the details as written. My exam confirms the resident's findings. The assessment and plan were formulated in discussion with me and I agree with them as documented. Major issues addressed/discussed: 54 year old male with worsening depression and suicide attempt via overdose on gabapentin in the context of marital strife. The patient also has diabetes mellitus and is on insulin. His blood sugars are not under good control and he is followed by an fiber drier operator as an outpatient. Diagnosis - Severe episode of recurrent major depressive disorder, without psychotic features Plan - Adjustment Disorder - Increase duloxetine 60 mg -> 90 mg po q day for depressive symptoms. Continue medications for chronic pain, hypertension, hyperlipidemia, and follow up on endocrinology / diabetes management consult recommendations per resident note. Group and milieu therapy to address coping skills, triggers for depressive symptoms and suicidal ideations, and cognitive distortions. Suicide risk mitigation consisting of medication optimization, engagement in the therapeutic milieu, and group psychotherapy targeting distress tolerance and healthy coping skills. Patient will also be on q 15 minute checks and a low ligature risk environment. Additional comments: Patient Vitals for the past 24 hrs: BP Temp Temp src Pulse Resp SpO2 Height Weight 06/11/19 0818 135/74 37 ??C (98.6 ??F) Oral 89 16 98 % -- -- 06/11/19 0105 139/71 -- -- 72 16 97 % -- -- 06/10/192031 129/78 36.6 ??C (97.9 ??F) Oral 99 17 97 % 167.6 cm (5' 6) 97.7 kg (215 lb 6.2 oz) I certify that the patient requires inpatient care for psychiatric treatment for safety, stabilization, and any other therapeutic intervention that could conceivably improve the patient's condition, including medication management, group psychotherapy, establishing adequate outpatient care, and/or diagnostic study. documented in this encounter Miscellaneous Notes * Plan of Care - Tessie George RN - 06/15/2019 9:28 AM EDT Problem: Patient Care Overview Goal: Plan of Care Review Outcome: Outcome (s) achieved Date Met: 06/15/19 06/15/19919 Coping/Psychosocial Plan Of Care Reviewed With patient Outcome Evaluation Outcome Summary/Plan Achieved outcome OUTCOME EVALUATION NOTE: OUTCOME SUMMARY: Pt reported slept pretty good.' Pt reports: Depression: 4/0 Anxiety: 4/10 (10=worst). Affect is full. Eye contact good. Pt denies AH/VH. No other psychotic symptoms reported or observed. Pt denies suicidal or homicidal ideation. Pt denies thoughts of self harm. Pt willing to contact staff if having thoughts of hurting self or anyone else rather than acting on such thoughts. Independent ADLs; well groomed. Pt has been easy to engage, cooperative and social with peers. Pt's appetite is good. Pt denies any problems moving his bowels. Pt reports chronic nerve pain in his arm is holding steady at about 5/10 with his scheduled Gabapentin. Pt adhering to prescribed medication plan. PLAN MOVING FORWARD: Plan is for discharge today. Patient is in agreement with this plan. Pt completed his Wellness Recovery and Safety Plan. INDIVIDUALIZED FALL PREVENTION INTERVENTIONS: Patient-specific fall risk factors per assessment [current deficits]: Secondary Diagnosis, hx of recent fall Assistance [level of assistance required for transfers and ambulation]: None- steady gait on unit. Reliable to ask for assist if needed. Supervision [direct monitoring required during toileting and ADLs]: N/a- as above Surveillance [continuous indirect monitoring]: 15 minute checks and continuous monitoring of unit by staff Patient-specific fall prevention interventions for sensory deficits provided if applicable: N/A CPG GOAL OUTCOME EVALUATION: Goal: Individualization & Mutuality Outcome: Outcome (s) achieved Date Met: 06/15/19 06/15/19919 Individualization Patient Specific Preferences I like the insulin regimen they started for me here. I'm going to continue with that. Patient Specific Goals d/c by about 1pm Patient Specific Interventions Active listening, support, medication and medication education Mutuality/Individual Preferences What Anxieties, Fears or Concerns Do You Have About Your Health or Care? My nerve pain gets as goodas a 5/10. It feels like burning. What Questions Do You Have About Your Health or Care? Will I see endocrine before I am discharged? What Information Would Help Us Give You More Personalized Care? I'm feeling ready to go. Goal: Fall Prevention-Safe Patient Handling Outcome: Ongoing (Interventions Implemented as Appropriate) 06/14/19 1420 06/15/19 0800 06/15/19919 Restraint Interventions Safety Promotion/Fall Prevention -- -- fall prevention program maintained;nonskid shoes/slippers when out of bed Activity Activity Type -- -- up ad marlena Activity Assistance Provided -- -- independent Assistive Device Utilized none -- -- Positioning Body Position -- -- independent Daily Care Interventions Self-Care Promotion -- -- BADL personal routines maintained [place] Risk History of Falling -- 25 -- Secondary Diagnosis -- 15 -- Ambulatory Aids -- 0 -- Intravenous Therapy/Heparin/Saline Lock -- 0 -- Gait/Transferring -- 0 -- Mental Status -- 0 -- Score -- 40 -- OTHER [place] Fall Risk -- Med -- Goal: Infection Control Outcome: Ongoing (Interventions Implemented as Appropriate) 06/15/19919 Coping Strategies Supportive Measures active listening utilized;counseling provided;decision- making supported;goal setting facilitated;positive reinforcement provided;problem solving facilitated;relaxation techniques promoted;self-care encouraged;self-reflection promoted;self-responsibility promoted;verbalization offeelings encouraged Safety Interventions Isolation Precautions standard precautions maintained Infection Prevention environmental surveillance performed;equipment surfaces disinfected Goal: Discharge Needs Assessment Outcome: Outcome (s) achieved Date Met: 06/15/19 06/12/1993306/14/19 14206/15/19919 Discharge Needs Assessment Concerns To Be Addressed -- adjustment to diagnosis/illness concerns;coping/stress concerns;cognitive/perceptual concerns;financial/insurance concerns -- Readmission Within The Last 30 Days -- no previous admission in last 30 days -- Equipment Needed After Discharge -- none -- Discharge Facility/Level Of Care Needs -- independent living facility -- Current Discharge Risk -- chronically ill;lack of support system/caregiver;psychiatric illness -- Discharge Disposition -- -- home or self-care Current Health Outpatient/Agency/Support Group Needs outpatient psychiatric care (specify) -- -- Anticipated Changes Related to Illness -- none -- Activity/Self Care Review of Systems Equipment Currently Used at Home -- none -- Living Environment Transportation Available -- car -- Goal: Interdisciplinary Rounds/Family Conf Outcome: Outcome (s) achieved Date Met: 06/15/19 06/15/19919 Interdisciplinary Rounds/Family Conf Participants caser;nursing;physician;patient * Plan of Care - Rachna Boles RN - 06/14/2019 10:49 PM EDT Problem: Patient Care Overview Goal: Plan of Care Review Outcome: Ongoing (Interventions Implemented as Appropriate) 06/14/19 5713 Coping/Psychosocial Plan Of Care Reviewed With patient Plan of Care Review Progress improving OUTCOME EVALUATION NOTE: OUTCOME SUMMARY: Pt has been out of room all evening. Pleasant and cooperative. No change in pain level, declines txfor it other that gabapentin. Compliant with scheduled meds. FSBS's remain in good control. Pt denies any safety issues and agrees to tell staff if that changes. Attended groups and is glad he got tx-is more hopeful for the future. PLAN MOVING FORWARD: Discharge home tomorrow. INDIVIDUALIZED FALL PREVENTION INTERVENTIONS: Patient-specific fall risk factors per assessment: [current deficits]: Other dx, hx of a fall Assistance [level of assistance required for transfers and ambulation]: independent Supervision [direct monitoring required during toileting and ADLs]: none Surveillance [continuous indirect monitoring]: q 15 minute checks, purposeful rounding Patient-specific fall prevention interventions for sensory deficits provided, if applicable: n/a CPG GOAL OUTCOME EVALUATION: * Plan of Care - Mavis Aj RN - 06/14/2019 2:39 PM EDT Problem: Patient Care Overview Goal: Plan of Care Review Outcome: Ongoing (Interventions Implemented as Appropriate) 06/14/19 1420 Plan of Care Review Progress improving OUTCOME EVALUATION NOTE: OUTCOME SUMMARY: Reid pili, attended groups, shala is good BS q 4 h - had 1 unit coverage at bfast and same for bfast. Insulin order changed to 1 unit of novolog for q 10 CHO. He was made aware of change. He was able to say how sad He is now that he is from his - denies any SI or hI and CFS firmly. He rated his dep as a 5 and anxiety as a 3/10. Out of his room most of the shift and socializing- Went for the walk at 1415. PLAN MOVING FORWARD: FS q 4 h - cover with Novolog Groups, reinforce education Did 4-4-4 breathing modelled D/c tomorrow to his parents house INDIVIDUALIZED FALL PREVENTION INTERVENTIONS: Patient-specific fall risk factors per assessment: [current deficits]: LFR Assistance [level of assistance required for transfers and ambulation]: n/a Supervision [direct monitoring required during toileting and ADLs]: n/a Surveillance [continuous indirect monitoring]: 15 min Patient-specific fall prevention interventions for sensory deficits provided, if applicable: n/a CPG GOAL OUTCOME EVALUATION: Goal: Individualization & Mutuality Outcome: Ongoing (Interventions Implemented as Appropriate) 06/10/19221506/13/19214306/14/191419 Individualization Patient Specific Preferences -- I still feel sad when Ithink about her (). -- Patient Specific Goals -- -- go to groups Patient Specific Interventions -- -- FS q 4 h Mutuality/Individual Preferences What Anxieties, Fears or Concerns Do You Have About Your Health or Care? -- -- anxious about livingwith my parents What Questions Do You Have About Your Health or Care? Will someone help me with when I have to go to groups? -- -- What Information Would Help Us Give You More Personalized Care? -- -- I dont always take my meds Goal: Fall Prevention-Safe Patient Handling Outcome: Ongoing (Interventions Implemented as Appropriate) 06/14/19 142 Restraint Interventions Safety Promotion/Fall Prevention muscle strengthening facilitated;fall prevention program maintained Activity Activity Type up ad marlena Activity Assistance Provided independent Assistive Device Utilized none Positioning Body Position independent [place] Fall Risk History of Falling 0 Secondary Diagnosis 15 Ambulatory Aids 0 Intravenous Therapy/Heparin/Saline Lock 0 Gait/Transferring 0 Mental Status 0 Score 15 Goal: Infection Control Outcome: Ongoing (Interventions Implemented as Appropriate) 06/14/191419 Coping Strategies Supportive Measures active listening utilized;goal setting facilitated;counseling provided;positivereinforcement provided;journaling promoted;relaxation techniques promoted;self-care encouraged;verbalization of feelings encouraged;self-responsibility promoted Safety Interventions Isolation Precautions standard precautions maintained Goal: Discharge Needs Assessment Outcome: Ongoing (Interventions Implemented as Appropriate) 06/14/191419 Discharge Needs Assessment Concerns To Be Addressed adjustment to diagnosis/illness concerns;coping/stress concerns;cognitive/perceptual concerns;financial/insurance concerns Readmission Within The Last 30 Days no previous admission in last 30 days Equipment Needed After Discharge none Discharge Facility/Level Of Care Needs independent living facility Current Discharge Risk chronically ill;lack of support system/caregiver;psychiatric illness Current Health Anticipated Changes Related to Illness none Activity/Self Care Review of Systems Equipment Currently Used at Home none Living Environment Transportation Available car Goal: Interdisciplinary Rounds/Family Conf Outcome: Ongoing (Interventions Implemented as Appropriate) 06/14/191419 Interdisciplinary Rounds/Family Conf Participants nursing;patient;physician Problem: Depression (Adult,Obstetrics,Pediatric) Intervention: Monitor/Manage Signs of Depression 06/14/19 1420 Coping Strategies Complementary Therapy art therapy;play therapy Supportive Measures active listening utilized;goal setting facilitated;counseling provided;positivereinforcement provided;journaling promoted;relaxation techniques promoted;self-care encouraged;verbalization of feelings encouraged;self-responsibility promoted Family/Support System Care self-care encouraged;support provided;involvement promoted Coping/Psychosocial Interventions Environmental Support calm environment promoted;personal routine supported Suicide Risk Suicidal Ideation no Suicide Plan/Availability denies Current Suicidal Precipitating Factors restraining order Previous Suicide Attempt (describe) denies Willingness to Contact Staff Member if Feeling Like Hurting Self yes Goal: Establish/Maintain Self-Care Routine Patient will demonstrate the desired outcomes by discharge/transition of care. Outcome: Ongoing (Interventions Implemented as Appropriate) 06/14/19 1420 Depression (Adult,Obstetrics,Pediatric) Establish/Maintain Self-Care Routine making progress toward outcome Goal: Improved/Stable Mood Patient will demonstrate the desired outcomes by discharge/transition of care. Outcome: Ongoing (Interventions Implemented as Appropriate) 06/14/19 1420 Depression (Adult,Obstetrics,Pediatric) Improved/Stable Mood making progress toward outcome * Plan of Care - Rachna Boles RN - 06/13/2019 9:58 PM EDT Problem: Patient Care Overview Goal: Plan of Care Review Outcome: Ongoing (Interventions Implemented as Appropriate) 06/13/196 Coping/Psychosocial Plan Of Care Reviewed With patient Plan of Care Review Progress improving OUTCOME EVALUATION NOTE: OUTCOME SUMMARY: Pt has been out of his room all shift. Attended groups and work on Wellness plan, asking appropriate questions about follow up. He denies physical pain. He denies any SI/HI or thoughts of self harm/harming others and agrees to tell staff if that changes. Says he has not felt suicidal since admission. Engages with staff and peers. Compliant with scheduled meds and FSBS. Smiling more and hopeful for the future. PLAN MOVING FORWARD: Monitor moods and behavior, groups and work on coping skills, work on wellness Plan, FSBS INDIVIDUALIZED FALL PREVENTION INTERVENTIONS: Patient-specific fall risk factors per assessment: [current deficits]: Other dx, hx of a fall Assistance [level of assistance required for transfers and ambulation]: independent Supervision [direct monitoring required during toileting and ADLs]: none Surveillance [continuous indirect monitoring]: q 15 minute checks, purposeful rounding Patient-specific fall prevention interventions for sensory deficits provided, if applicable: n/a CPG GOAL OUTCOME EVALUATION: * Plan of Care - Adelina Ayers RN - 06/13/2019 2:03 PM EDT Problem: Patient Care Overview Goal: Plan of Care Review Outcome: Ongoing (Interventions Implemented as Appropriate) OUTCOME EVALUATION NOTE: OUTCOME SUMMARY: Pt rates 5 and anxiety is 5. Pt denies SI/AVH/HI. Pt is attending groups, and social on the unit. Pt is calm and cooperative. Pt has been covered for his blood sugars and his meals. PLAN MOVING FORWARD: INDIVIDUALIZED FALL PREVENTION INTERVENTIONS: Patient-specific fall risk factors per assessment: [current deficits]: Assistance [level of assistance required for transfers and ambulation]: Supervision [direct monitoring required during toileting and ADLs]: Surveillance [continuous indirect monitoring]: Patient-specific fall prevention interventions for sensory deficits provided, if applicable: CPG GOAL OUTCOME EVALUATION: * Plan of Care - Rachna Boles RN - 06/12/2019 6:22 PM EDT Problem: Patient Care Overview Goal: Plan of Care Review Outcome: Ongoing (Interventions Implemented as Appropriate) 06/12/19 1807 Coping/Psychosocial Plan Of Care Reviewed With patient Plan of Care Review Progress improving OUTCOME EVALUATION NOTE: OUTCOME SUMMARY: Pt out of room most of shift. Affect is sl ashraf. Pt has good eye contact. He denies any safety issues and agrees to tell staff if that changes. Compliant with meds and attended groups. Pleasant andcooperative. Engages with peers. Started working on Wellness Plan. BS appear to be under better control. PLAN MOVING FORWARD: Groups and work on coping skills, monitor moods and behavior, work on wellness plan, INDIVIDUALIZED FALL PREVENTION INTERVENTIONS: Patient-specific fall risk factors per assessment: [current deficits]: none Assistance [level of assistance required for transfers and ambulation]: independent Supervision [direct monitoring required during toileting and ADLs]: none Surveillance [continuous indirect monitoring]: q 15 minute checks, purposeful rounding Patient-specific fall prevention interventions for sensory deficits provided, if applicable: n/a CPG GOAL OUTCOME EVALUATION: * Initial Assessments - Geovanna Mitchell, RD - 06/12/2019 12:24 PM EDT Nutrition Initial Note Reid Medrano is a 54 y.o. male Reason for intervention: Consult, nursing consult for help with carb counting diet with insulin sliding scale Nutrition Recommendations: CHO lvl 2 diet Education on CHO counting provided Nursing aware that nutrition does not teach insulin Patient Active Problem List Diagnosis Code ??? [...] mellitus type 2, insulin dependent E11.9, Z79.4 Past Medical History: Diagnosis Date ??? Diabetes mellitus Active Orders Diet Carb Control diet 60/60/75 CHO counting level 2 Frequency: Effective Now Number of Occurrences: Until Specified Admit Weight: 97.7 kg Estimated body mass index is 34.76 kg/m?? as calculated from the following: Height as of this encounter: 167.6 cm (5' 6). Weight as of this encounter: 97.7 kg (215 lb 6.2 oz). [place] Body Weight (IBW): 65kg Estimated needs: Calories: 1625kcal Protein: 78 grams Today's medications: reviewed, insulin and glucophage managed by endo, vitamin D3, magox, MVI with minerals Lab Results Component Value Date NA 137 06/11/2019 K 4.7 06/11/2019 CL 99 06/11/2019 CO2 25 06/11/2019 BUN 19 06/11/2019 CREATININE 1.20 06/11/2019 GLUCOSE 292 (H) 06/11/2019 MAGNESIUM 0.67 (L) 04/07/2019 CALCIUM 9.6 06/11/2019 Last Bowel Movement: 06/11/19 Assessment: patient is ambulating in unit, sitting down to lunch. He reports good appetite and intakes with no tolerance issues. States he typically eats too much junk. He is eager to learn how to count CHO. Education both written and verbal provided, patient asks appropriate questions, and acknowledges understanding of info reviewed. 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 PLAN MOVING FORWARD: Groups, continue present medications INDIVIDUALIZED FALL PREVENTION INTERVENTIONS: Patient-specific fall risk factors per assessment: [current deficits]: independent Assistance [level of assistance required for transfers and ambulation]: Up ad marlena, low fall risk Supervision [direct monitoring required during toileting and ADLs]: n/a Surveillance [continuous indirect monitoring]: Purposeful rounding, q 15 min safety checks Patient-specific fall prevention interventions for sensory deficits provided, if applicable: n/a CPG GOAL OUTCOME EVALUATION: Goal: Individualization & Mutuality Outcome: Ongoing (Interventions Implemented as Appropriate) 06/10/196 06/11/19 19306/12/19 0934 Individualization Patient Specific Preferences -- groups are good... -- Patient Specific Goals -- -- attend groups, take part in student interviews Patient Specific Interventions -- BS checks. -- Mutuality/Individual Preferences What Anxieties, Fears or Concerns Do You Have About Your Health or Care? i can't think of anythingright now -- -- What Questions Do You Have About Your Health or Care? Will someone help me with when I have to go to groups? -- -- What Information Would Help Us Give You More Personalized Care? I take u 500 insulin -- -- Goal: Fall Prevention-Safe Patient Handling Outcome: Ongoing (Interventions Implemented as Appropriate) 06/12/19933 Restraint Interventions Safety Promotion/Fall Prevention fall prevention program maintained;nonskid shoes/slippers when outof bed;toileting scheduled Activity Activity Type up ad marlena Activity Assistance Provided independent Assistive Device Utilized none Positioning Body Position independent Daily Care Interventions Self-Care Promotion independence encouraged [place] Fall Risk History of Falling 0 Secondary Diagnosis 15 Ambulatory Aids 0 Intravenous Therapy/Heparin/Saline Lock 0 Gait/Transferring 0 Mental Status 0 Score 15 OTHER [place] Fall Risk Low Goal: Infection Control Outcome: Ongoing (Interventions Implemented as Appropriate) 06/12/19933 Coping Strategies Supportive Measures active listening utilized;goal setting facilitated;self-care encouraged;self-responsibility promoted;verbalization of feelings encouraged;positive reinforcement provided Safety Interventions Isolation Precautions standard precautions maintained Infection Prevention single patient room provided Goal: Discharge Needs Assessment Outcome: Ongoing (Interventions Implemented as Appropriate) 06/12/19933 Discharge Needs Assessment Concerns To Be Addressed coping/stress concerns;mental health concerns;relationship concerns;legal concerns Readmission Within The Last 30 Days no previous admission in last 30 days Equipment Needed After Discharge none Current Discharge Risk psychiatric illness;lives alone;lack of support system/caregiver Current Health Outpatient/Agency/Support Group Needs outpatient psychiatric care (specify) Anticipated Changes Related to Illness none Activity/Self Care Review of Systems Equipment Currently Used at Home none Living Environment Transportation Available car Goal: Interdisciplinary Rounds/Family Conf Outcome: Ongoing (Interventions Implemented as Appropriate) 06/12/19933 Interdisciplinary Rounds/Family Conf Participants caser;nursing;patient;physician;social work/services Problem: Depression (Adult,Obstetrics,Pediatric) Goal: Establish/Maintain Self-Care Routine Patient will demonstrate the desired outcomes by discharge/transition of care. Outcome: Ongoing (Interventions Implemented as Appropriate) 06/12/19933 Depression (Adult,Obstetrics,Pediatric) Establish/Maintain Self-Care Routine making progress toward outcome Goal: Improved/Stable Mood Patient will demonstrate the desired outcomes by discharge/transition of care. Outcome: Ongoing (Interventions Implemented as Appropriate) 06/12/19933 Depression (Adult,Obstetrics,Pediatric) Improved/Stable Mood making progress toward outcome * Med Student Progress Note - Eliana Hernandez Ana María - 06/12/2019 7:51 AM EDT Psychiatry Inpatient - Progress Note 06/12/2019 ID: Reid Medrano is a 54 y.o. male admitted on 06/10/2019 for suicide attempt in the setting of marital stress. Hospital day 2. Current Working Primary Diagnosis: adjustment disorder with depressed mood Pertinent medical issues being addressed: Type 2 Diabetes Interval History: (1,1,4) Per nursing report, Reid slept 8.25 hours and rated his depression a 4/10 and his anxiety a 0/10, with 10 being the worst. The Diabetes Team was consulted yesterday and made recommendations for management of his diabetes. His blood glucose this morning was 189. 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 Otherwise, he stated that yesterday was pretty good because he stayed busy. He attended groups and reports learning good tools related to taking care of yourself first and is planning on attending more groups today. He states that he is also feeling better because his blood glucose is under control. He is interested in counting carbs and would like more information about managing his diabetes before he is discharged. When asked what his thoughts were about what brought him into the hospital, he replied, wish I hadn't taken the pills and I'm glad it didn't do nothing. When asked what he would do differently next time, he replied that he would make sure that he is around his best friend and his parents. Regarding the events surrounding his suicide attempt, he stated I know I did some stuff wrong, but don't know why... I never hurt her. He also stated that if she's unfaithful, I'm done. He currently denies suicidal ideations. After he is discharged, he is planning on living with his 83 year old parents. He states that this will be a good situation for all of them because he can help them do stuff. He reports that his relationship with his parents was previously strained due to some issues with his current . He reports that his would call them and tell them to come over if he was doing something wrong and that he believes his parents no longer wanted to be involved. He reports that he now has a good relationship with his parents. He would like to be reconnected with outpatient psychiatry at [facility] after discharge. Review of Systems: (0,1,2) Constitutional: Denies fever HEENT: Denies headache GI: Denies abdominal pain Psych: See above Suicide Risk Factors on Day of Admission: Enduring Factors:??absence of significant social support and limited coping skills? Dynamic Factors:??depressive symptoms, rehearsal of a suicide plan/Preparatory behavior, sense of hopelessness and recent or impending loss ?? Protective Factors:??family and community support, protective cultural/restoration beliefs and futureorientation ?? Access to Firearms:??none currently. Unclear as to access at parents' house Physical Exam: (1,6,9) Vitals (24hr Range): Temp: [37 ??C (98.6 ??F)] Resp: [16] Heart Rate: [98-101] BP: (135-136)/(65-77) SpO2: [96 %] Patient Vitals for the past 168 hrs: Weight 06/10/192031 97.7 kg (215 lb 6.2 oz) Musculoskeletal System: normal gait and balance and ambulates independently Mental Status Exam: Appearance: Casually dressed, fair grooming, sitting in no apparent discomfort Behavior: No psychomotor agitation or slowing, appropriate eye contact, cooperative with interview Speech: Normal rate, pitch, and prosody. Volume appropriate for setting. Language: Appropriate, Faroese-speaking Mood: a little bit down Affect: full, euthymic, mood congruent Thought Process: Linear, logical, and goal-directed. Associations: Tight and intact. Thought Content: No delusions or paranoid ideas, no suicidal and no homicidal ideation Perception: No audio, visual, or tactile hallucinations. Does not appear to be responding to internal stimuli Orientation: Grossly intact, per interview Attention/Concentration: Intact to interview and discussion regarding care. Cognition: Grossly intact Memory: Remote and recent memory intact Fund of Knowledge: Appears appropriate for level of education. Insight: Fair Judgment: Fair [place] Suicide Risk Scale (on admission): Wish to be : Have you wished you were or wished you could go to sleep and not wake up?: Yes (06/10/192207) Suicidal Thoughts: Have you had any actual thoughts of killing yourself?: Yes (06/10/192207) Suicidal Thoughts with Method (without Specific Plan or Intent to Act): Have you been thinking about how you might do this?: Yes (06/10/192207) Suicidal Intent (without Specific Plan): Have you had these thoughts and had some intention of acting on them?: Yes (06/10/192207) Suicidal Intent with Specific Plan: Have you started to work out or worked out the details of how to kill yourself? Do you intend to carry out this plan?: Yes (06/10/192207) Suicide Behavior Question: Have you ever done anything, started to do anything, or prepared to do anything to end your life?: Yes (06/10/192207) Was this within the past 3 months?: Yes (06/10/192207) ?? [place] Suicide Risk Scale (most recent): Suicidal Thoughts: Since you were last asked have you had any actual thoughts of killing yourself?:No (06/12/19929) Suicide Behavior Question: Since you were last asked have you ever done anything, started to do anything, or prepared to do anything to end your life?: No (06/12/19929) Current Medications: Scheduled: ??? multivitamin with minerals 1 tablet Oral Daily ??? insulin lispro 0-12 Units Subcutaneous TID WC ??? DULoxetine 90 mg Oral Daily ??? insulin lispro 1-12 Units Subcutaneous Q4H VERNA ??? insulin glargine 40 Units Subcutaneous Daily ??? insulin glargine 20 Units Subcutaneous Nightly ??? glimepiride 4 mg Oral BID WC ??? cholecalciferol (Vitamin D3) 2,000 Units Oral Nightly ??? metFORMIN 1,000 mg Oral BID WC ??? allopurinol 300 mg Oral Nightly ??? aspirin 325 mg Oral Daily ??? atorvastatin 40 mg Oral QPM ??? isosorbide mononitrate 60 mg Oral Daily ??? lisinopril 40 mg Oral Nightly ??? magnesium oxide 400 mg Oral Nightly ??? metoprolol succinate 25 mg Oral Daily ??? gabapentin 900 mg Oral 4 Times Daily PRN: ibuprofen, flu vacc (6 mos-64 yrs)(PF), traZODone, Glucose 40% oral gel OR dextrose ORglucagon (human recombinant) Labs: Last 24 Hours: Recent Results (from the past 24 hour(s)) POCT Glucose Result Value Ref Range POC Glucose 211 (H) 65 - 199 mg/dL POCT Glucose Result Value Ref Range POC Glucose 77 65 - 199 mg/dL POCT Glucose Result Value Ref Range POC Glucose 170 65 - 199 mg/dL POCT Glucose Result Value Ref Range POC Glucose 136 65 - 199 mg/dL POCT Glucose Result Value Ref Range POC Glucose 88 65 - 199 mg/dL POCT Glucose Result Value Ref Range POC Glucose 91 65 - 199 mg/dL POCT Glucose Result Value Ref Range POC Glucose 189 65 - 199 mg/dL Psychiatry Labs: Preg: No results found for: HCGQUAL, HCGQUANT Heme: No results found for: WBC, HGB, HCT, PLATELET, MCV, NEUTROABS No results found for: HA1C, SEDRATE Chem: Lab Results Component Value Date NA 137 06/11/2019 K 4.7 06/11/2019 CL 99 06/11/2019 CO2 25 06/11/2019 BUN 19 06/11/2019 GLUCOSE 292 (H) 06/11/2019 Lab Results Component Value Date CALCIUM 9.6 06/11/2019 LFTs: No results found for: ALT, AST, GGT, ALKPHOS, BILITOT, AMMONIA Coags: No results found for: PTT, PT, INR Thyroid: No results found for: TSH, S2ENUHM, TT4 Lipids and HgbA1C: Lab Results Component Value Date LDLDIRECT 63 06/16/2018 Lab Results Component Value Date HA1C 11.5 (H) 12/26/2018 Vit Lvls: No results found for: [id number], SFOLATE UA: No results found for: GLUCOSEU, KETONESUA, PROTEINUADIP, BLOODUADIP, LEUKOESTERUA, NITRATEUA, WBCUA (May not represent most recent UA results. See eD-H labs for more details.) Tox: No results found for: ETHANOL, ACTMNPHEN, SALICYLATE, LEAD No results found for: UDAUSCREEN Rx Lvls: No results found for: LITHIUM, CARBAMAZEPIN, VALPROATE, LAMOTRIGINE, CLOZAPINE Assessment: Reid Medrano is a 54 y.o. male admitted on 06/10/2019 for suicide attempt in the setting of maritalstress. Current Clinical Assessment: Reid's symptoms are most consistent with adjustment disorder. He meets criteria as these symptoms occurred within 1 week of his filing a restraining order. His suicidal ideations and recent attempt are out of proportion relative to the severity of the stressor and have significantly impaired his functioning, resulting in two psychiatric hospital admissions within the past 2 weeks. Specifically, he is exhibiting symptoms predominantly of adjustment disorder with depressed mood, endorsing feelings of hopelessness on the day of admission. 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 Both yesterday and today he has not directly addressed the reasons behind the restraining order, suggesting that he may still be in denial. He recognizes that he has done some stuff but still expresses that he does not understand why things happened. Biologically, he may have a disruption in his serotonin and/or norepinephrine neurotransmitter system. His dose of duloxetine was increased yesterday and reports that he had a pretty good day. Psychologically, he exhibits poor coping skills, poor emotional regulation, and denial of his current marital situation. Today he continued to endorse that he does not understand why and what is going on. He would benefit from group psychotherapy specifically focused on coping skills and distress tolerance skills. Socially, his of 33 years just filed a one year restraining order against him. He is planning on moving in with his 83 year old parents after discharge and reports that he is looking forward to helping them around the house. ?? Current Suicide Assessment: Reid's risk for suicide is higher than the general population given hisrecent suicide attempt and stressful marital situation. His suicide risk is higher relative to the other patients on the psychiatric unit given his recent attempt and significant psychosocial stressors. His suicide risk is also higher relative to his own baseline given his recent suicide attempt, recent hospitalization at [facility], and the restraining order put in place by his . His risk for suicide will be mitigated while on the inpatient unit by q15 minute checks, low ligature environment, management of medications, and encouragement of participation in group psychotherapy sessions and the therapeutic milieu. Current Working Primary Diagnosis: adjustment disorder with depressed mood Reasons for continued hospitalization: Warrants ongoing inpatient admission for safety, stabilization, and any other therapeutic intervention that could conceivably improve the patient's condition (including medication management, group psychotherapy, establishing adequate outpatient care). Plan: - Outpatient care will be established with [facility] - Will consult the magazine journalist to meet with him before discharge to discuss dietary changes to bettermanage his diabetes - Will advise the Diabetes Team that he is planning to be discharged on Saturday to confirm if there are any changes they want to make to his medication regimen before this #??adjustment disorder Duloxetine 90mg - Patient reports that yesterday was pretty good. Will keep Duloxetine at 90mg He will benefit from attendance at group psychotherapy sessions particularly those focused on coping strategies and distress tolerance skill ?? #??pain Continue gabapentin 900mg QID ?? #??Hyperlipidemia Continue atorvastatin 40mg qHS ?? #Cardiovascular Continue metoprolol succinate 50mg daily Continue aspirin 325mg daily Continue lisinopril 40mg daily Continue Imdur??60mg daily ?? #??Diabetes Diabetes Team was consulted and made the following recommendations: Lantus 40 units 0900 and 20 units 2100 Lispro sliding scale for BG > 140 with CF of 1 unit insulin: 10-20 (1:10 if BG > 180; 1:20 ifBG < 180) => changed to q4h instead of TID to verify basal insulin For BG 140 - 160: Give 1 unit For BG 161 - 180: Give 2 units For BG 181 - 200: Give 4 units For BG 201 - 220: Give 6 units For BG 221 - 240: Give 9 units For BG > 240: Give 12 units and recheck in 2 hrs; if BG remains > 240, give 12 units (no morethan two times) and call for new basal insulin orders. Continue meal-associate Lispro 0-12 units TID with meals (with ratio of 1 unit: 6g carbohydrates) Glimepiride IR 4 mg BID - hold if patient is not eating or if BG <80 Metformin 1000mg BID at 0900 and 1700 For hypoglycemia - Glucose gel ordered, D50 available, Glucagon available ? # Disposition: -After stabilization, patient expected to return to his parents home on Saturday, 06/15. ?? #PRNS: Sleep: Trazodone 50mg qHS PRN Anxiety: Pain: Naltrexone 1mg QID, Ibuprofen 400mg TID PRN Agitation: ?? Additional Information: Outpatient Care: Provider Name Date Contacted By Treatment Team Psychiatric prescriber Sravani Salas APRN Therapist PCP Sravani Salas APRN Patient Instruction/Education Provided: Patient provided verbal instructions during rounds regarding the treatment plan. I have reviewed and agree with the multidisciplinary treatment plan. I certify that the patient requires [x] inpatient care for psychiatric treatment that could reasonably be expected to improve the patient's condition and/or diagnostic study. Signed By: Eliana Hernandez, MS3 06/12/19 * Plan of Care - Rachna Boles RN - 06/11/2019 7:54 PM EDT Problem: Patient Care Overview Goal: Plan of Care Review Outcome: Ongoing (Interventions Implemented as Appropriate) 06/11/191937 Coping/Psychosocial Plan Of Care Reviewed With patient Plan of Care Review Progress improving OUTCOME EVALUATION NOTE: OUTCOME SUMMARY: pt has been out of room all shift. He has been pleasant and cooperative affect is blunted, has good eye contact. He denies any safety issues and agrees to tell staff if that changes.Attending groups and says they are giving him different ways of looking and dealing with issues andpeople. Compliant with meds. Engaging briefly with others in milieu, watching TV. Denies physical pain. Says if he were home he would be puttering in his garage. PLAN MOVING FORWARD: Continue to monitor FSBS, moods and behavior, groups and work on coping skills, medication management with tx team INDIVIDUALIZED FALL PREVENTION INTERVENTIONS: Patient-specific fall risk factors per assessment: [current deficits]: Other dx, hx of a fall Assistance [level of assistance required for transfers and ambulation]: independent Supervision [direct monitoring required during toileting and ADLs]: none Surveillance [continuous indirect monitoring]: q 15 minute checks, purposeful rounding Patient-specific fall prevention interventions for sensory deficits provided, if applicable: n/a CPG GOAL OUTCOME EVALUATION: * Plan of Care - Dino Carr RN - 06/11/2019 1:31 PM EDT Problem: Patient Care Overview Goal: Plan of Care Review Outcome: Ongoing (Interventions Implemented as Appropriate) 06/10/193 Coping/Psychosocial Plan Of Care Reviewed With patient Plan of Care Review Progress improving OUTCOME EVALUATION NOTE: OUTCOME SUMMARY: Patient was pleasant and cooperative today. He denied suicidal ideation. His affect was flat. He was social with his peers. He attended groups. He was seen by endocrine consult. PLAN MOVING FORWARD: Increase cymbalta. Encourage groups. INDIVIDUALIZED FALL PREVENTION INTERVENTIONS: Patient-specific fall risk factors per assessment: [current deficits]: Previous fall, secondary diagnosis Assistance [level of assistance required for transfers and ambulation]: independent Supervision [direct monitoring required during toileting and ADLs]: independent Surveillance [continuous indirect monitoring]: 15 minute checks Patient-specific fall prevention interventions for sensory deficits provided, if applicable: [X] N/A CPG GOAL OUTCOME EVALUATION: * Consult Note - Rodrigo Conteh MD - 06/11/2019 9:34 AM EDT Diabetes Management Team Inpatient Consult Date of Consultation: 06/11/2019 Consult Requested by: Inpatient Psychiatry Service Reason for Consultation: Reid Medrano is a 54 y.o. male with PMH significant for type II diabetes (HgbA1c 11.5 as of 12/26/2018), CAD (s/p stent RCA 12/2017), HTN, HLD, gout, depression, and anxiety who was admitted on 06/10/2019 in the setting of a suicide attempt through overdose of gabapentin. We are being consulted to assist with diabetes management in the setting of home U500 and to provide a review of watermaster diabetes care. Diabetes History: Reid Medrano has had diabetes (type II) diagnosed when he was 36 years old. He had no symptoms at the time of diagnosis. He has a significant history of having hypoglycemia (cold sweats, confusion) at home with BG in the20s (lowest). About one month ago while on U500, he had a low to the 40s. He doesn't remember what dose of the U500 he gave prior to that hypoglycemic episode. He states at that time, he didn't eat enough the night before. He has never been hospitalized for diabetes before. Lately, his diabetes has been under suboptimal control. He reports a significant amount of stress, concerned about infidelity on his 's part. He reports decreased support at home in terms of his chronic health conditions. Since December, there have been days and weeks where he hasn't taken the U500 due to forgetfulness andalso passive suicidal ideation; he similarly has not taken metformin, glimepiride for multiple days. He reports that for only a few days per week, he will take U500 (30 units in the morning, 30 unitsnightly) and metformin and glimepiride; more recently however, has not been taking anything at all.Last dose of U500 was 3 days prior to admission. Current outpatient diabetes regimen: Diabetes Provider: Dr. Rodrigo Conteh MD Medications: From 12/26/18 note: - U-500 insulin: 150 units qPM and also low dose 100 units in AM ((20-30 units on the syringe BID instead of qPM alone) and allow him to adjust the dose by 5- 10 units until fasting BG at target of 90-180 range (Not victoza or Trulicity pen due to cost) - glimiperide 4 mg bid and metforminER 1000 mg bid (and try not to miss the AM dosing). - Humalog kwickpen sliding scale p.r.n if BG>180 based on 1u:10BG ratio (or to simply titrate U-500 insulin at this initial step) - continue taking OTC-B12 1,000 mcg po qd as well for neuropathy and also OTC- vitD 2,000 iu daily. Previously, in 06/2017, he had been on 70u Lantus and 60u Humalog = 130 units (as well as metforminand glimepiride) ??2. Monitoring: to check FSBG before each meal and at bedtime. Target BG 90-180 while fasting and 90-180 pre-meal during daytime Target A1c < 8% (in 7% range) for this patient and ~7-8% as his target. ?? 3. Diet and exercise: low fat/controlled carb diet & exercise as tolerated to keep weight down or at least stable. Patient will keep log of blood glucose and insulin used for review at next visit. Monitoring is done 0-2 times a day. Sometimes he goes a month without checking. There is a financial barrier - has to choose between affording strips and insulin sometimes. He sometimes needs 3 vialsper month, each vial is $60. Most recent HA1c was done on 12/26/2018 and was 11.5%, suggesting an average glucose of 283 mg/dL for the past 6-8 weeks. Typical diet is: 3 meals and 1-2 snacks a day Breakfast- nothing Lunch- 1 apple pie, or potato chips Supper- fried, breaded chicken ; hamburger; hotdogs Drink - Diet Soda, coffee with Splenda No EtOH. Typical exercise regimen is None. Trouble with hypoglycemia - see above. Diabetes Complications Status: Eyes: None Kidneys: None (has hx of renal cyst) Feet: None Sensory: Neuropathy of the hands and feet Autonomic: lightheadedness Cardiac: stent placement 2007; stable angina Current Hospital Diabetes Care: On admission, BG was 320. He was begun on Lantus 40 units QHS, received one dose of metformin (on 1000 mg BID), received two doses of glimepiride 4 mg (4 mg BID), and received a total of 31 units of Lispro thus far (I:C ratio of 1:6 and on resistant sliding scale). His BG range has been in the 260s- 290s with a FBG of 281 mg/dl this morning. Inpatient DM Medications: ? metformin 1000mg BID ? glimepiride 4mg BID ? Lantus 40U qHS ? Carb correction of 1:6 ? Insulin resistant sliding scale: 3-12 units TID ? vitamin D3 Monitoring: POCT 4 times daily before meals and at bedtime Diet: CHO level 2 ROS: (+) for wt gain (on U500), thirst, urination, diarrhea/constipation, numbness in hands (-) for Constitutional: No recent weight change Endocrine: +increased thirst, +urination Eyes: No recent vision change ENT: No dysphagia, dental issues Cardiovascular: No chest pain Respiratory: No wheezing , shortness of breath GI: No nausea, vomiting, +diarrhea, +constipation : No frequent urinary tract infections Neurological: +numbness in hands (3 years), numbness in the feet Skin/Feet: No current diabetic foot ulcers/open area PMH Past Medical History: Diagnosis Date ??? Diabetes mellitus Current Hospital Medications: ??? metFORMIN 1,000 mg Oral BID WC ??? multivitamin with minerals 1 tablet Oral Daily ??? insulin lispro 0-12 Units Subcutaneous TID WC ??? allopurinol 300 mg Oral Nightly ??? glimepiride 4 mg Oral BID ??? aspirin 325 mg Oral Daily ??? atorvastatin 40 mg Oral QPM ??? cholecalciferol (Vitamin D3) 1,000 Units Oral Nightly ??? DULoxetine 60 mg Oral Daily ??? isosorbide mononitrate 60 mg Oral Daily ??? lisinopril 40 mg Oral Nightly ??? magnesium oxide 400 mg Oral Nightly ??? metoprolol succinate 25 mg Oral Daily ??? insulin lispro 3-12 Units Subcutaneous TID AC ??? insulin glargine 40 Units Subcutaneous Nightly ??? gabapentin 900 mg Oral 4 Times Daily Infusions: PRN: ibuprofen, flu vacc (6 mos-64 yrs)(PF), traZODone, Glucose 40% oral gel OR dextrose OR glucagon (human recombinant) Allergy: Allergies Allergen Reactions ??? Eptifibatide Other (See Comments) thrombocytopenia ??? Amoxicillin Other (See Comments) Unknown Social history: Lives in [facility], [place] of [place]. He is experiencing marital stress with his of 33 years. Per chart review, filed restraining order. One son No EtOH use. No current tobacco smoking or chewing; previously chewed tobacco. Social History Tobacco Use ??? Smoking status: Never Smoker ??? Smokeless tobacco: Former User Types: Chew Substance Use Topics ??? Alcohol use: No ??? Drug use: No Family history: Family History Problem Relation Age of Onset ??? Diabetes Brother Grandmothers (both) - diabetes Grandfather - heart disease Father - pacemaker Vitals Last value Range last 24 hrs Temperature Temp: 37 ??C (98.6 ??F) Temp: [36.6 ??C (97.9 ??F)-37 ??C (98.6 ??F)] Heart Rate Heart Rate: 89 Heart Rate: [72-99] Blood Pressure BP: 135/74 BP: (129-139)/(71-78) Respiratory Rate Resp: 16 Resp: [16-17] SpO2 SpO2: 98 % SpO2: [97 %-98 %] Physical Exam: Gen: NAD, talking in clear sentences. Interactive, sitting up in bed speaking with me. HEENT: no LAD, oral mucus membranes moist, moderate dentition but no clear inflammation. Heart: RRR, no murmurs. Radial pulses +2. Lungs: CTAB, breathing non-labored. No wheezes or rhonchi. Good aeration Abd: Soft, non-distended, non-tender x4 quadrants, +bs Labs: Last wbc, hgb, hct plt No results for input(s): WBC, HGB, HCT in the last 72 hours. Invalid input(s): PLT Last 3 Lytes Recent Labs 06/11/19 1028 NA 137 K 4.7 CL 99 CO2 25 BUN 19 CREATININE 1.20 Last Ca, Mg, Phos Recent Labs 06/11/19 1028 CALCIUM 9.6 Last 3 Lipids No results for input(s): CHLPL, HDL, LDLCHOL, LDLDIRECT, TRIG in the last 7068 hours. Last 3 HgbA1C Recent Labs 12/26/18 1417 HA1C 11.5* Other relevant diabetes labs: C-peptide: 7.3 (04/03/2016) HgbA1c: 11.5 (12/26/2018) Vitamin D: 61 (06/16/2018) Assessment: Patient is a 54 y.o.male with PMH significant for DM (Last A1C of 11.5 on 12/26/18) who was admittedon 06/10/2019 for type II diabetes suboptimally controlled and complicated by psychiatric issues including difficulty coping with stress (which results in patient not taking his medications, fidelina frank). He is currently with variability of blood glucose levels while hospitalized requiring adjustment of insulin regimen and DM medications. With metformin, glimepiride, one-time glargine, and lispro, the patient is approaching the target for BG in hospitalized patients (140 - 180 mg/dl), but still in excess of it. Thus, we would recommend holding U500 for now in the inpatient setting because of the variability in diet and stress (and his reasonable control while off U500 here in the hospital). We would recommend the following plan: I addended this note at 6:20 pm with updated input from patient's outpatient fiber drier operator Dr. Conteh: 1. Please give Lantus 40 units in the morning at 0900 and 20 units nightly instead of 6p as his BG is low at 70s at 5p (please give at 9pm starting on 06/12). He had already received the 20 units already this evening (06/11). 2. Lispro custom sliding scale for BG > 140 with CF of 1 unit insulin: 10-20 (1:10 if BG > 180; 1:20 if BG < 180) => changed to q4h instead of TID to verify basal insulin For BG 140 - 160: Give 1 unit For BG 161 - 180: Give 2 units For BG 181 - 200: Give 4 units For BG 201 - 220: Give 6 units For BG 221 - 240: Give 9 units For BG > 240: Give 12 units and recheck in 2 hrs; if BG remains > 240, give 12 units (no morethan two times) and call for new basal insulin orders. 3. Please continue meal-associated Lispro 0-12 units TID with meals (with ratio of 1 unit: 6 g carbohydrates) 4. Glimepiride IR 4 mg BID: patient already received two doses today (06/11 at 1a and 9a). Please give next dose at 0900 & 1700 with meals tomorrow on 06/12 - please HOLD if patient is not eatingor if BG <80. 5. Metformin 1000 mg BID: please give at 0900 & 1700 from 06/12. 6. Agents to treat hypoglycemia: Glucose gel ordered, D50 available, Glucagon available. Will checkFSBG q4h over the next 24h and may change back to QID tomorrow if his basal insulin is keeping BG stable overnight tonight without corrections. For long-term diabetes care: - Affordability: patient reports that the strips are quite expensive for him and he has to make a choice between affording insulin vs affording strips. [facility] Medications - Outpatient treatment regimen recommendations pending based on the hospital course. Monitoring - please see above note regarding strips. Diet - low fat/low carb diet Exercise - weight-bearing exercise 30 min/day, as tolerated Thank you for allowing us to provide care for your patient. We appreciate the opportunity to be involved in his care. We will continue to follow. Urmila Monroe MD (PGY-1) and Mary Bueno APRN Inpatient Diabetes Service 06/11/2019 I have seen the patient and reviewed Dr. Monroe's above history and I agree with the details as written and modified as above. The assessment and plan were formulated in discussion with me and I agree with them as documented. Rodrigo Conteh MD, PhD, FACP, FACE * Med Student Progress Note - Kleversebastian Eliana Ana María - 06/11/2019 8:29 AM EDT Psychiatry Inpatient - Progress Note 06/11/2019 ID: Reid Medrano is a 54 y.o. male admitted on 06/10/2019 for suicide attempt in the setting of marital stress. Hospital day 1. Current Working Primary Diagnosis: adjustment disorder with depressed mood Pertinent medical issues being addressed: Type 2 Diabetes Interval History: (1,1,4) Per nursing report, Reid slept 6.5 hours and denies suicidal ideations. He rates his depression 7/10 and his anxiety 3/10, with 10 being the worst. He was described as very pleasant this morning. Reid reports that he is here because he has been depressed following an argument with his . He states that she kicked him out and then he consumed a bunch of pills. He says that he is glad it wasn't successful. To him, depression means no future, no hope. Reid is more hopeful today though because he has the support of his parents. He has a therapist who he is interested in seeing at [facility] and states that this is also close to where his parents live. Patient reports feeling not good today. Some of the things that he used to enjoy at home include taking care of his apple trees and fixing cars in his garage. He reports that in order to feel better, things would have to be better. His goals for while he is here are to understand what is going on meaning with his . He is interested in attending groups but is not really sure how they work. Patient denies SI/HI/VAH. Review of Systems: (0,1,2) Constitutional: Denies fever HEENT: Denies headache GI: No abdominal pain Psych: See above Suicide Risk Factors on Day of Admission: Enduring Factors: absence of significant social support and limited coping skills ?? Dynamic Factors: depressive symptoms, rehearsal of a suicide plan/Preparatory behavior, sense of hopelessness and recent or impending loss ?? Protective Factors: family and community support, protective cultural/restoration beliefs and future orientation ?? Access to Firearms: none currently. Unclear as to access at parents' house Physical Exam: (1,6,9) Vitals (24hr Range): Temp: [36.6 ??C (97.9 ??F)-37 ??C (98.6 ??F)] Resp: [16-17] Heart Rate: [72-99] BP: (129-139)/(71-78) SpO2: [97 %-98 %] Patient Vitals for the past 168 hrs: Weight 06/10/192031 97.7 kg (215 lb 6.2 oz) Musculoskeletal System: normal gait and balance and ambulates independently Mental Status Exam: Appearance: Casually dressed, fair grooming, sitting in no apparent discomfort Behavior: No psychomotor agitation or slowing, appropriate eye contact, cooperative with interview Speech: Normal rate, pitch, and prosody. Volume appropriate for setting. Language: Appropriate, Faroese-speaking Mood: not good Affect: constricted, mood congruent Thought Process: Linear, logical, and goal-directed. Associations: Tight and intact. Thought Content: No delusions or paranoid ideas, no suicidal and no homicidal ideation Perception: No audio, visual, or tactile hallucinations. Does not appear to be responding to internal stimuli Orientation: Grossly intact per intreview Attention/Concentration: Intact to interview and discussion regarding care. Cognition: Grossly intact Memory: Remote and recent memory intact Fund of Knowledge: Appears appropriate for level of education. Insight: Limited Judgment: Limited [place] Suicide Risk Scale (on admission): Wish to be : Have you wished you were or wished you could go to sleep and not wake up?: Yes (06/10/192207) Suicidal Thoughts: Have you had any actual thoughts of killing yourself?: Yes (06/10/192207) Suicidal Thoughts with Method (without Specific Plan or Intent to Act): Have you been thinking about how you might do this?: Yes (06/10/192207) Suicidal Intent (without Specific Plan): Have you had these thoughts and had some intention of acting on them?: Yes (06/10/192207) Suicidal Intent with Specific Plan: Have you started to work out or worked out the details of how to kill yourself? Do you intend to carry out this plan?: Yes (06/10/192207) Suicide Behavior Question: Have you ever done anything, started to do anything, or prepared to do anything to end your life?: Yes (06/10/192207) Was this within the past 3 months?: Yes (06/10/192207) [place] Suicide Risk Scale (most recent): Suicidal Thoughts: Since you were last asked have you had any actual thoughts of killing yourself?:No (06/11/19899) Suicide Behavior Question: Since you were last asked have you ever done anything, started to do anything, or prepared to do anything to end your life?: No (06/11/19899) Current Medications: Scheduled: ??? metFORMIN 1,000 mg Oral BID WC ??? multivitamin with minerals 1 tablet Oral Daily ??? insulin lispro 0-12 Units Subcutaneous TID WC ??? allopurinol 300 mg Oral Nightly ??? glimepiride 4 mg Oral BID ??? aspirin 325 mg Oral Daily ??? atorvastatin 40 mg Oral QPM ??? cholecalciferol (Vitamin D3) 1,000 Units Oral Nightly ??? DULoxetine 60 mg Oral Daily ??? isosorbide mononitrate 60 mg Oral Daily ??? lisinopril 40 mg Oral Nightly ??? magnesium oxide 400 mg Oral Nightly ??? metoprolol succinate 25 mg Oral Daily ??? insulin lispro 3-12 Units Subcutaneous TID AC ??? insulin glargine 40 Units Subcutaneous Nightly ??? gabapentin 900 mg Oral 4 Times Daily PRN: ibuprofen, flu vacc (6 mos-64 yrs)(PF), traZODone, Glucose 40% oral gel OR dextrose ORglucagon (human recombinant) Labs: Last 24 Hours: Recent Results (from the past 24 hour(s)) POCT Glucose Result Value Ref Range POC Glucose 320 (H) 65 - 199 mg/dL POCT Glucose Result Value Ref Range POC Glucose 265 (H) 65 - 199 mg/dL POCT Glucose Result Value Ref Range POC Glucose 281 (H) 65 - 199 mg/dL POCT Glucose Result Value Ref Range POC Glucose 291 (H) 65 - 199 mg/dL Psychiatry Labs: Preg: No results found for: HCGQUAL, HCGQUANT Heme: No results found for: WBC, HGB, HCT, PLATELET, MCV, NEUTROABS No results found for: HA1C, SEDRATE Chem: No results found for: NA, K, CL, CO2, BUN, GLUCOSE, GLUCFASTING No results found for: CALCIUM, MAGNESIUM, PHOS LFTs: No results found for: ALT, AST, GGT, ALKPHOS, BILITOT, AMMONIA Coags: No results found for: PTT, PT, INR Thyroid: No results found for: TSH, E0WYNSU, TT4 Lipids and HgbA1C: Lab Results Component Value Date LDLDIRECT 63 06/16/2018 Lab Results Component Value Date HA1C 11.5 (H) 12/26/2018 Vit Lvls: No results found for: SZOPKEHB24, SFOLATE UA: No results found for: GLUCOSEU, KETONESUA, PROTEINUADIP, BLOODUADIP, LEUKOESTERUA, NITRATEUA, WBCUA (May not represent most recent UA results. See eD-H labs for more details.) Tox: No results found for: ETHANOL, ACTMNPHEN, SALICYLATE, LEAD No results found for: UDAUSCREEN Rx Lvls: No results found for: LITHIUM, CARBAMAZEPIN, VALPROATE, LAMOTRIGINE, CLOZAPINE Assessment: Reid Medrano is a 54 y.o. male admitted on 06/10/2019 for suicide attempt in the setting of maritalstress. Current Clinical Assessment: Reid's symptoms are most consistent with adjustment disorder. After his filed a temporary restraining order against him last week, he expressed suicidal ideations and was hospitalized at the [facility] and discharged on Saturday. On 06/09, Reid attended court and his was granted a one year restraining order. He overdosed on gabapentin shortly afterwards. Reid reports feeling depressed and explained that this meant there was no future, no hope. He meets criteria for adjustment disorder as these symptoms occurred within 3 months of a significant psychosocial stressor. His suicidal ideations and recent attempt are out of proportion relative to the severity of the stressor and have significantly impaired his functioning, resulting in two psychiatric hospital admissions within the past 2 weeks. Specifically, he is exhibiting symptoms predominantly of adjustment disorder with depressed mood, endorsing feelings of hopelessness. Biologically, he may have a disruption in his serotonin and/or norepinephrine neurotransmitter system. He is currently being treated with duloxetine and his dose could be increased. Psychologically, he exhibits poor coping skills, poor emotional regulation, and some denial of his current marital situation. During the interview, he never mentioned the restraining order specifically, but instead mentioned I don't understand what is going on. He would benefit from group psychotherapy specifically focused on coping skills and distress tolerance skills. Socially, his of 33 years just filed a one year restraining order against him. He is currently homeless and living out of his car, but his parents have agreed to let him stay with them. His parents and son are protective factors for him. Reid does not currently meet criteria for major depressive episode. While he does endorse feelings of hopelessness and depressed mood today and anhedonia and insomnia on admission, these symptoms have not been persistent for two weeks. Current Suicide Assessment: Reid's risk for suicide is higher than the general population given hisrecent suicide attempt, stressful marital situation, and homelessness. His suicide risk is higher relative to the other patients on the psychiatric unit given his recent attempt and significant psychosocial stressors. His suicide risk is also higher relative to his own baseline given his recent suicide attempt, recent hospitalization at [facility], and the restraining order put in place by his . His risk for suicide will be mitigated while on the inpatient unit by q15 minute checks, low ligature environment, management of medications, and encouragement of participation in group psychotherapy sessions and the therapeutic milieu. Current Working Primary Diagnosis: adjustment disorder with depressed mood Reasons for continued hospitalization: Warrants ongoing inpatient admission for safety, stabilization, and any other therapeutic intervention that could conceivably improve the patient's condition (including medication management, group psychotherapy, establishing adequate outpatient care). Plan: # adjustment disorder Increase duloxetine to 90mg given his recent worsening of depressive symptoms He will benefit from attendance at group psychotherapy sessions particularly those focused on coping strategies and distress tolerance skill ?? # pain Continue gabapentin 900mg QID ?? # Hyperlipidemia Continue atorvastatin 40mg qHS #Cardiovascular Continue metoprolol succinate 50mg daily Continue aspirin 325mg daily Continue lisinopril 40mg daily Continue Imdur 60mg daily # Diabetes Continue metformin 1000mg BID Continue glimepiride 4mg BID Consult diabetes team for recommendations for further management ?? # Gout Continue allopurinol 300mg qHS Continue Magnesium oxide 400mg qHS # Disposition: -After stabilization, patient expected to return to his parents home in 2-3 days. #PRNS: Sleep: Trazodone 50mg qHS PRN Anxiety: Pain: Naltrexone 1mg QID, Ibuprofen 400mg TID PRN Agitation: Additional Information: Outpatient Care: Provider Name Date Contacted By Treatment Team Psychiatric prescriber Sravani Salas APRN Therapist PCP Sravani Salas APRN Patient Instruction/Education Provided: Patient provided verbal instructions during rounds regarding the treatment plan. I have reviewed and agree with the multidisciplinary treatment plan. I certify that the patient requires [x] inpatient care for psychiatric treatment that could reasonably be expected to improve the patient's condition and/or diagnostic study. Signed By: TRANG Niño 06/11/19 * Initial Assessments - Cecelia Voss RN - 06/11/2019 8:11 AM EDT Initial Patient Assessment CECELIA VOSS RN reviewed record and discussed patient with Care Team on 06/11/2019. Introduced/reviewed role; services accepted. Reid Medrano is a 54 y.o. year old male (1965) presenting to [address] [place] [address] for treatment with Adjustment disorder [F43.20] Anticipated Length Of Stay (If known): unknown Patient/Caregiver Goals of Treatment: to get help for my depression Source of Information: Pt supplied/corraborated, history and physical REASON for HOSPITALIZATION: Status post suicide attempt in context of psychosocial stressors and depression Medical/Behavioral Health History: does not have any pertinent problems on file. Current treaters: PCP: Sravani Salas APRN Hospitalizations Within the Past 30 Days: Discharged from [facility] on 06/07 after being hospitalized for depression PERTINENT INFO FROM H & P: 54 y.o. Male presents to [facility] after a suicide attempt in the settingof marital stress. ADVANCE DIRECTIVES: Information provided as needed HEALTH /PRESCRIPTION COVERAGE: Current Effective Coverage: Payor/Plan Subscr Sex Relation Sub. Ins. ID Effective Group Num 1. PMA CUSTOMER * REID MEDRANO 1965 Male [id number] 01/10/15 [address] 2. BLUE CROSS BL* REID MEDRANO 1965 Male [id number] 09/02/18 [id number] [address] Prescription Coverage: Confirmed Preferred Pharmacy: [id number] - [place], [place] - [address] [facility] [address] [facility] [address] [facility] [address] [facility] - [place], [place] - [address] [facility] [address] [facility] [address] [facility] [address] [facility] [place] [id number] HOME ENVIRONMENT / SOCIAL & FAMILY SUPPORTS/COMMUNITY RESOURCES:(living situation, family constellation, Caregivers, current use & knowledge of community resources, etc.) Extended Emergency Contact Information Primary Emergency Contact: MitchellLisa ahn Address: [address] [place] [id number] [facility] Mobile Relation: Spouse Secondary Emergency Contact: Jocelyn Medrano [facility] Relation: Child PRIMARY CARE PHYSICIAN: 1. Sravani Salas APRN [address] / [place] [id number] MENTAL HEALTH PRESCRIBER: PCP Current Decision-Making Capacity: (Level of Alertness/Orientation, dementia/ cognitive deficit, if patient is a minor - assess parent/guardian, etc.) Able to consent to or refuse care. CURRENT PATIENT & FAMILY EDUCATION, COPING NEEDS: (Address patient/family satisfaction with care to date, understanding of current status and plan of care, need for family meeting, need for display fabrication supervisor, etc.) Education regarding effective coping skills, medication and treatment options, relapseprevention and community supports Functional Status Prior to Admission: Able to perform ADLs/IADLs independently Current Functional Ability: (use of assistive devices, working with PT/OT, etc.) Able to perform ADLs/IADLs independently Anticipated Barriers to Discharge/Special Considerations: (Financial/underinsured, behavioral, lackof needed support/access to community resources, current substance abuse, homelessness, etc.) None anticipated. Homeless but shares that he is able to stay with family after discharge Potential Needs for Transition of Care: Home Health: no Any special transportation needed at D/C to [address] [place], [place] [address] [address]? None anticipated Rehab/SNF: no New community resources referrals needed? Refer to outpatient mental health services Other: PLAN: PCM will continue to monitor progress, follow for continuity of care and assist with transition of care planning while hospitalized. CECELIA VOSS RN, BSN PAGER: [phone] * Plan of Care - Cecelia Voss RN - 06/11/2019 8:11 AM EDT MULTIDISCIPLINARY TREATMENT PLAN Todays Date: 06/11/2019 Patient: Reid Medrano Admit Date: 06/10/2019 8:32 PM CODE STATUS:Full Code Initial date of care plan. __06/11/19_ Update Q7 days Working Diagnosis: Adjustment disorder [F43.20] PATIENT'S REASON FOR HOSPITALIZATION Worsening depressive symptoms with intentional overdose STRENGTHS STRESSORS TARGET SYMPTOMS 1. Open to engaging in treatment Marital conflict Low mood and energy, poor sleep 2. Supportive family Hopelessness, loss of interest 3. 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 Continued psychiatric evaluation 1. Therapeutic groups & activities 2. Med management/Brief therapy 2. Patient and family education 3. Diagnostic/Medical testing/Labs 3. NURSING INTERVENTIONS PCC & SW INTERVENTIONS 1. Purposeful rounding 1. Facilitate communication with family 2. Nursing care plan 2. Facilitate communication with providers 3. 3. Assist with discharge planning The multidisciplinary team reviewed falls prevention plan with me. I have worked with my treatment team and agree with the plan above. PATIENT SIGNATURE DATE: Reid Medrano PRINT NAME: SIGNATURE: DATE: RESIDENT PHYSICIAN 06/11/19 ATTENDING PHYSICIAN Finn Cano MD 06/11/19 NURSING 06/11/19 PATIENT SIGNAL PERSON Cecelia Voss, MANUEL 06/11/19 THERAPIST 06/11/19 RING CONDUCTOR Aurea Ramirez, [facility] 06/11/19 * Plan of Care - Rachna Boles RN - 06/10/2019 10:41 PM EDT Problem: Patient Care Overview Goal: Plan of Care Review Outcome: Ongoing (Interventions Implemented as Appropriate) 06/10/193 Coping/Psychosocial Plan Of Care Reviewed With patient Plan of Care Review Progress improving OUTCOME EVALUATION NOTE: OUTCOME SUMMARY: Pt admitted to 239 via subacute nurse from OSH. Pt pleasant and cooperative with admission process. Affect is full, pt reports feeling sad and puzzled about his marriage of 35 years and getting a restraining order, then going to court and having that re-instated for a year. He denies any SI/HI or thoughts of self harm/harming others and agrees to tell staff if that changes and agrees to keep self safe on unit. 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 This month, says pain level is low and he doesn't require tx. Pt reports that about 3.5 weeks ago he had a 'TIA' according to his . says he got dizzi and fell and then espinoza L leg weakness for about 48 hr. inst pt to report to staff any dizziness or weakness. Pt agreed.Reports protective factors as his son and parents whom are supportive to him. Reports taking insulin u 500 bid and on multiple other meds. PLAN MOVING FORWARD: Endocrine consult in am, familiarize pt with unit, activities and tx team in am, groups and work oncoping skills, monitor moods and behavior, INDIVIDUALIZED FALL PREVENTION INTERVENTIONS: Patient-specific fall risk factors per assessment: [current deficits]: Other dx, hx of a fall Assistance [level of assistance required for transfers and ambulation]: independent Supervision [direct monitoring required during toileting and ADLs]: none Surveillance [continuous indirect monitoring]: q 15 minute checks, purposeful rounding Patient-specific fall prevention interventions for sensory deficits provided, if applicable: n/a CPG GOAL OUTCOME EVALUATION: Problem: Depression (Adult,Obstetrics,Pediatric) Intervention: Monitor/Manage Signs of Depression 06/10/192222 Coping Strategies Supportive Measures active listening utilized;decision-making supported;self- care encouraged;verbalization of feelings encouraged;self-responsibility promoted Family/Support System Care presence promoted Coping/Psychosocial Interventions Environmental Support calm environment promoted;personal routine supported Suicide Risk Suicidal Ideation no Suicide Plan/Availability OD's on gabapentin yesterday, glad to be alive Current Suicidal Precipitating Factors separation, depression, chronic illness Previous Suicide Attempt (describe) denies Willingness to Contact Staff Member if Feeling Like Hurting Self yes Goal: Identify Related Risk Factors and Signs and Symptoms Related risk factors and signs and symptoms are identified upon initiation of Human Response Clinical Practice Guideline (CPG) Outcome: Outcome (s) achieved Date Met: 06/10/19 06/10/192222 Depression Related Risk Factors (Depression) endocrinologic factor;history of depression;medical comorbidity;psychosocial factor;situational/maturational crisis Signs and Symptoms (Depression) appetite changes;overwhelmed;performance at work/school diminished;poor concentration/indecisiveness;sadness;self-blame/self-criticism/guilt;suicidal/ho micidal behaviors/thoughts Goal: Establish/Maintain Self-Care Routine Patient will demonstrate the desired outcomes by discharge/transition of care. Outcome: Ongoing (Interventions Implemented as Appropriate) 06/10/192222 Depression (Adult,Obstetrics,Pediatric) Establish/Maintain Self-Care Routine making progress toward outcome Goal: Improved/Stable Mood Patient will demonstrate the desired outcomes by discharge/transition of care. Outcome: Ongoing (Interventions Implemented as Appropriate) 06/10/192222 Depression (Adult,Obstetrics,Pediatric) Improved/Stable Mood making progress toward outcome documented in this encounter Plan of Treatment Upcoming Encounters Date Type Department Care Team (Late st Contact Info) Description 08/18/2024 10:30 AM EST Office Visit Endocrinology at [facility] [place] [address] Rodrigo Conteh MD [facility] [place] [address] documented as of this encounter Procedures Procedure Name Priority Date/Time Associated Diagnosis Comments POCT GLUCOSE Routine 06/15/2019 12:07 PM EDT POCT GLUCOSE Routine 06/15/2019 7:34 AM EDT HC THYROID STIMULATING HORMONE, SERUM Routine 06/15/2019 6:39 AM EDT CMP W/FASTING GLUCOSE Routine 06/15/2019 6:39 AM EDT HC VITAMIN D TOTAL-25 HYDROXY Routine 06/15/2019 6:39 AM EDT HC HEMOGLOBIN A1C Routine 06/15/2019 6:3 9 AM EDT LIPID PANEL (REFLEX DIRECT LDL) Routine 06/15/2019 6:39 AM EDT POCT GLUCOSE Routine 06/15/2019 3:58 AM EDT POCT GLUCOSE Routine 06/15/2019 12:00 AM EDT POCT GLUCOSE Routine 06/14/2019 8:17 PM EDT POCT GLUCOSE Routine 06/14/2019 5:00 PM EDT POCT GLUCOSE Routine 06/14/2019 12:04 PM EDT POCT GLUCOSE Routine 06/14/2019 7:58 AM EDT POCT GLUCOSE Routine 06/14/2019 4:17 AM EDT POCT GLUCOSE Routine 06/14/2019 12:25 AM EDT POCT GLUCOSE Routine 06/13/2019 8:33 PM EDT POCT GLUCOSE Routine 06/13/2019 4:36 PM EDT POCT GLUCOSE Routine 06/13/2019 12:08 PM EDT POCT GLUCOSE Routine 06/13/2019 7:38 AM EDT POCT GLUCOSE Routine 06/13/2019 4:10 AM EDT POCT GLUCOSE Routine 06/13/2019 12:14 AM EDT POCT GLUCOSE Routine 06/12/2019 9:26 PM EDT POCT GLUCOSE Routine 06/12/2019 5:07 PM EDT POCT GLUCOSE Routine 06/12/2019 12:15 PM EDT POCT GLUCOSE Routine 06/12/2019 7:32 AM EDT POCT GLUCOSE Routine 06/12/2019 4:05 AM EDT POCT GLUCOSE Routine 06/12/2019 12:05 AM EDT POCT GLUCOSE Routine 06/11/2019 8:24 PM EDT POCT GLUCOSE Routine 06/11/2019 6:49 PM EDT POCT GLUCOSE Routine 06/11/2019 4:50 PM EDT POCT GLUCOSE Routine 06/11/2019 12:08 PM EDT POCT GLUCOSE Routine 06/11/2019 10:46 AM EDT HC VENIPUNCTURE Routine 06/11/2019 10:28 AM EDT POCT GLUCOSE Routine 06/11/2019 7:51 AM EDT POCT GLUCOSE Routine 06/11/2019 3:26 AM EDT POCT GLUCOSE Routine 06/11/2019 1:04 AM EDT documented in this encounter Results * POCT Glucose (06/15/2019 12:07 PM EDT) Glucose, POC 164 65 - 199 mg/dL [facility] Comment: Supplemental ranges: <140 mg/dL before meals <180 mg/dL all other times of the day Blood specimen (specimen) 06/15/2019 12:07 PM EDT 06/15/2019 12:07 PM EDT Finn Cano MD POINT OF CARE TEST O [facility] [place] [address] * POCT Glucose (06/15/2019 7:34 AM EDT) Glucose, POC 128 65 - 199 mg/dL [facility] Comment: Supplemental ranges: <140 mg/dL before meals <180 mg/dL all other times of the day Blood specimen (specimen) 06/15/2019 7:34 AM EDT 06/15/2019 7:34 AM EDT Finn Cano MD POINT OF CARE TEST O [facility]OR[facility] [place] [place] [address] * Vitamin D, 25-Hydroxy (06/15/2019 6:39 AM EDT) Vitamin D Total 25 OH 70 30 - 100 ng/mL [facility] Comment: As of 2019, 25-hydroxyvitamin D testing has moved from the [facility] to the [facility]. No substantial change in measured values is expected. Blood specimen (specimen) 06/15/2019 6:39 AM EDT 06/15/2019 6:45 AM EDT Narrative Resulting Agency Comment Spec In Lab Rodrigo Conteh MD CHEMISTRY ORDERAB LES Performing Organization Address City/[facility]/ZIP Co de Phone Number [facility] [place] [address] * TSH [place] (06/15/2019 6:39 AM EDT) Thyroid Stimulating Hormone 1.08 0.27 - 4.20 mcIU/mL [facility] Blood specimen (specimen) 06/15/2019 6:39 AM EDT 06/15/2019 6:45 AM EDT Narrative Resulting Agency Comment Spec In Lab Rodrigo Conteh MD CHEMISTRY ORDERAB LES Performing Organization Address City/[facility]/ZIP Co de Phone Number [facility] [place] [address] * Lipid Panel (Reflex Direct LDL) (06/15/2019 6:39 AM EDT) Cholesterol, Total 93 mg/dL [facility] Comment: Lower Risk: <200 mg/dL Average Risk: 200-239 mg/dL Higher Risk: >ni=668 mg/dL Triglyceride 154 mg/dL [facility] Comment: Average Risk/Lower Risk: <150 mg/dL Borderline High Risk: 150-199 mg/dL High Risk: 200-499 mg/dL Very High Risk: >xg=570 mg/dL HDL Cholesterol 34 mg/dL [facility] Comment: Males: ?? Higher Risk: <40 mg/dL Females: ?? HIgher Risk: <50 mg/dL LDL Cholesterol 28 mg/dL [facility] Comment: Lowest Risk: <100 mg/dL Lower Risk: 100-129 mg/dL Borderline High Risk: 130-159 mg/dL High Risk: 160-189 mg/dL Very High Risk: >yr=149 mg/dL Cholesterol/HDL Ratio 2.7 ratio [facility] Lipid Interpretation See Note [facility] Comment: Lipid management should be guided by a patient? s ASCVD risk, goals and preferences. ACC/AHA Guidelines recommend high intensity statin if clinical ASCVD or LDL greater than or equal to 190 mg/dL. http://[employer]com/WRD-LIA-Yrurnhrdy Adults aged 40-75 with LDL 70-189 mg/dL should have their 10 year ASCVD risk estimated with the ACC/AHA ASCVD risk drapery estimator http://tools.acc.org/TNAXL-Xgvz-Altepsege/ Statin should be discussed if risk greater than or equal to 7.5% in non-diabetics. With diabetes, moderate intensity statin is recommended if risk less than 7.5%, high intensity if risk greater than or equal to 7.5%. Annual lipid monitoring on statins is not necessary. Evaluate secondary causes of Triglycerides greater than 500 mg/dL or LDL greater than 190 mg/dL: See table 6 of ACC/AHA Guideline. Lifestyle modification is a critical component of ASCVD risk reduction. Blood specimen (specimen) 06/15/2019 6:39 AM EDT 06/15/2019 6:45 AM EDT Narrative Resulting Agency Comment Spec In Lab Rodrigo Conteh MD CHEMISTRY ORDERAB LES [facility] [place] [address] * (ABNORMAL) CMP w/fasting Glucose (06/15/2019 6:39 AM EDT) Glucose Fasting 114(H) 65 - 99 mg/dL [facility] Comment: ?Fasting* Glucose Interpretive Criteria [...] of Diabetes Mellitus, Position Statement from the [place] [employer]. ??Diabetes Care, Volume 33, Supplement 1, Sep 2009 Blood Urea Nitrogen 19 10 - 20 mg/dL [facility] Creatinine 0.97 0.80 - 1.50 mg/dL [facility] Sodium 142 135 - 145 mmol/L [facility] Potassium 4.6 3.5 - 5.0 mmol/L [facility] Comment: Please note: ??Patients with WBC >100,000 may have falsely elevated Potassium levels. ??For accurate Potassium quantification in these patients send serum separator tube (gold top) for subsequent determinations. ??Contact the Clinical Chemistry Laboratory if there are any questions. Chloride 106 98 - 107 mmol/L [facility] Carbon Dioxide 24 22 - 31 mmol/L [facility] Anion Gap 12 5 - 15 mmol/L [facility] Calcium 9.5 8.5 - 10.5 mg/dL [facility] Protein, Total 6.5 6.1 - 8.0 gm/dL [facility] Albumin 4.0 3.2 - 5.2 gm/dL [facility] Aspartate Aminotransferase 29 0 - 39 unit/L [facility] Alanine Aminotransferase 35 0 - 55 unit/L [facility] Alkaline Phosphatase 65 40 - 130 unit/L [facility] Bilirubin, Total 0.3 0.2 - 1.3 mg/dL [facility] Est Glomerular Filtration Rate 89 >=60 mL/min/1. 73 m?? [facility] Comment: The eGFR was calculated using the CKD-EPI equation. As with all creatinine based estimates of kidney function, eGFR values calculated with the CKD-EPI equation are not accurate in patients with acute kidney failure, extremes of body mass or the acutely ill. [email or web address] eGFR 103 >=60 mL/min/1. 73 m?? [facility] Comment: The eGFR was calculated using the CKD-EPI equation. As with all creatinine based estimates of kidney function, eGFR values calculated with the CKD-EPI equation are not accurate in patients with acute kidney failure, extremes of body mass or the acutely ill. [email or web address] Blood specimen (specimen) 06/15/2019 6:39 AM EDT 06/15/2019 6:45 AM EDT Narrative Resulting Agency Comment Spec In Lab Rodrigo Conteh MD CHEMISTRY ORDERAB LES [facility] [place] [address] * (ABNORMAL) Hemoglobin A1c (06/15/2019 6:39 AM EDT) Hemoglobin A1c 11.0(H) 4.3 - 5.6 % [facility] Comment: Reference Range: 4.3 - [...] Mellitus, Diabetes Care 2013; 36: Suppl. 1, V76-31 Estimated Average Glucose 270 mg/dL [facility] Comment: eAG equivalents for HbA1c [...] into estimated average glucose values. ??Diabetes Care 2008:31(8):6862-6053. Blood specimen (specimen) 06/15/2019 6:39 AM EDT 06/15/2019 6:45 AM EDT Narrative Resulting Agency Comment Spec In Lab Rodrigo Conteh MD CHEMISTRY ORDERAB LES Performing Organization Address [facility] Co de Phone Number [facility] [place] [address] * POCT Glucose (06/15/2019 3:58 AM EDT) Glucose, POC 98 65 - 199 mg/dL [facility] Comment: Supplemental ranges: <140 mg/dL before meals <180 mg/dL all other times of the day Blood specimen (specimen) 06/15/2019 3:58 AM EDT 06/15/2019 3:58 AM EDT Finn Cano MD POINT OF CARE TEST O RDERABLES Performing Organization Address [facility] Co de Phone Number [facility] [place] [place] [address] * POCT Glucose (06/15/2019 12:00 AM EDT) Glucose, POC 84 65 - 199 mg/dL [facility] Comment: Supplemental ranges: <140 mg/dL before meals <180 mg/dL all other times of the day Blood specimen (specimen) 06/15/2019 06/15/2019 12:00 AM EDT Finn Cano MD POINT OF CARE TEST O RDERAMARIA DOLORES Performing Organization Address City/[facility]/ZIP Co de Phone Number [facility] [place] [address] * POCT Glucose (06/14/2019 8:17 PM EDT) Glucose, POC 81 65 - 199 mg/dL [facility] Comment: Supplemental ranges: <140 mg/dL before meals <180 mg/dL all other times of the day Blood specimen (specimen) 06/14/2019 8:17 PM EDT 06/14/2019 8:17 PM EDT Finn Cano MD POINT OF CARE TEST O GRACEERAMARIA DOLORES Performing Organization Address [facility]/ZIP Co de Phone Number [facility] [place] [address] * POCT Glucose (06/14/2019 5:00 PM EDT) Glucose, POC 114 65 - 199 mg/dL [facility] Comment: Supplemental ranges: <140 mg/dL before meals <180 mg/dL all other times of the day Blood specimen (specimen) 06/14/2019 5:00 PM EDT 06/14/2019 5:00 PM EDT Finn Cano MD POINT OF CARE TEST O LIBORIO Performing Organization Address City/[facility]/ZIP Co de Phone Number [facility] [place] [address] * POCT Glucose (06/14/2019 12:04 PM EDT) Glucose, POC 165 65 - 199 mg/dL [facility] Comment: Supplemental ranges: <140 mg/dL before meals <180 mg/dL all other times of the day Blood specimen (specimen) 06/14/2019 12:04 PM EDT 06/14/2019 12:04 PM EDT Finn Cano MD POINT OF CARE TEST O LIBORIO Performing Organization Address [facility]/ZIP Co de Phone Number [facility] [place] [address] * POCT Glucose (06/14/2019 7:58 AM EDT) Glucose, POC 132 65 - 199 mg/dL [facility] Comment: Supplemental ranges: <140 mg/dL before meals <180 mg/dL all other times of the day Blood specimen (specimen) 06/14/2019 7:58 AM EDT 06/14/2019 7:58 AM EDT Finn Cano MD POINT OF CARE TEST O LIBORIO Performing Organization Address [facility] Co de Phone Number [facility] [place] [address] * POCT Glucose (06/14/2019 4:17 AM EDT) Glucose, POC 88 65 - 199 mg/dL [facility] Comment: Supplemental ranges: <140 mg/dL before meals <180 mg/dL all other times of the day Blood specimen (specimen) 06/14/2019 4:17 AM EDT 06/14/2019 4:17 AM EDT Finn Cano MD POINT OF CARE TEST Keven CAPONE Performing Organization Address [facility] Co de Phone Number [facility] [place] [address] * (ABNORMAL) POCT Glucose (06/14/2019 12:25 AM EDT) Glucose, POC 61(L) 65 - 199 mg/dL [facility] Comment: Supplemental ranges: <140 mg/dL before meals <180 mg/dL all other times of the day Blood specimen (specimen) 06/14/2019 12:25 AM EDT 06/14/2019 12:25 AM EDT Finn Cano MD POINT OF CARE TEST O RDERABLES Performing Organization Address City/[facility] Co de Phone Number [facility] [place] [address] * POCT Glucose (06/13/2019 8:33 PM EDT) Glucose, POC 76 65 - 199 mg/dL [facility] Comment: Supplemental ranges: <140 mg/dL before meals <180 mg/dL all other times of the day Blood specimen (specimen) 06/13/2019 8:33 PM EDT 06/13/2019 8:33 PM EDT Finn Cano MD POINT OF CARE TEST O GRACEERAMARIA DOLORES Performing Organization Address [facility] Co de Phone Number [facility] [place] [address] * POCT Glucose (06/13/2019 4:36 PM EDT) Glucose, POC 73 65 - 199 mg/dL [facility] Comment: Supplemental ranges: <140 mg/dL before meals <180 mg/dL all other times of the day Blood specimen (specimen) 06/13/2019 4:36 PM EDT 06/13/2019 4:36 PM EDT Finn Cano MD POINT OF CARE TEST O GRACEERAMARIA DOLORES Performing Organization Address [facility] Co de Phone Number [facility] [place] [address] * POCT Glucose (06/13/2019 12:08 PM EDT) Glucose, POC 142 65 - 199 mg/dL [facility] Comment: Supplemental ranges: <140 mg/dL before meals <180 mg/dL all other times of the day Blood specimen (specimen) 06/13/2019 12:08 PM EDT 06/13/2019 12:08 PM EDT Finn Cano MD POINT OF CARE TEST O RDERABLES [facility] [place] [address] * POCT Glucose (06/13/2019 7:38 AM EDT) Glucose, POC 105 65 - 199 mg/dL [facility] Comment: Supplemental ranges: <140 mg/dL before meals <180 mg/dL all other times of the day Blood specimen (specimen) 06/13/2019 7:38 AM EDT 06/13/2019 7:38 AM EDT Finn Cano MD POINT OF CARE TEST O LIBORIO Performing Organization Address [facility] Co de Phone Number [facility] [place] [address] * POCT Glucose (06/13/2019 4:10 AM EDT) Glucose, POC 89 65 - 199 mg/dL [facility] Comment: Supplemental ranges: <140 mg/dL before meals <180 mg/dL all other times of the day Blood specimen (specimen) 06/13/2019 4:10 AM EDT 06/13/2019 4:10 AM EDT Finn Cano MD POINT OF CARE TEST O GRACEERAMARIA DOLORES Performing Organization Address [facility] de Phone Number [facility] [place] [address] * POCT Glucose (06/13/2019 12:14 AM EDT) Glucose, POC 88 65 - 199 mg/dL [facility] Comment: Supplemental ranges: <140 mg/dL before meals <180 mg/dL all other times of the day Blood specimen (specimen) 06/13/2019 12:14 AM EDT 06/13/2019 12:14 AM EDT Finn Cano MD POINT OF CARE TEST O RDERAMARIA DOLORES Performing Organization Address [facility]/ZIP Co de Phone Number [facility] [place] [address] * POCT Glucose (06/12/2019 9:26 PM EDT) Glucose, POC 95 65 - 199 mg/dL [facility] Comment: Supplemental ranges: <140 mg/dL before meals <180 mg/dL all other times of the day Blood specimen (specimen) 06/12/2019 9:26 PM EDT 06/12/2019 9:26 PM EDT Finn Cano MD POINT OF CARE TEST O RDERAMARIA DOLORES [facility] [place] [address] * POCT Glucose (06/12/2019 5:07 PM EDT) Glucose, POC 132 65 - 199 mg/dL [facility] Comment: Supplemental ranges: <140 mg/dL before meals <180 mg/dL all other times of the day Blood specimen (specimen) 06/12/2019 5:07 PM EDT 06/12/2019 5:07 PM EDT Finn Cano MD POINT OF CARE TEST O LIBORIO [facility] [place] [address] * POCT Glucose (06/12/2019 12:15 PM EDT) Glucose, POC 193 65 - 199 mg/dL [facility] Comment: Supplemental ranges: <140 mg/dL before meals <180 mg/dL all other times of the day Blood specimen (specimen) 06/12/2019 12:15 PM EDT 06/12/2019 12:15 PM EDT Finn Cano MD POINT OF CARE TEST O LIBORIO [facility] [place] [address] * POCT Glucose (06/12/2019 7:32 AM EDT) Glucose, POC 189 65 - 199 mg/dL [facility] Comment: Supplemental ranges: <140 mg/dL before meals <180 mg/dL all other times of the day Blood specimen (specimen) 06/12/2019 7:32 AM EDT 06/12/2019 7:32 AM EDT Finn Cano MD POINT OF CARE TEST O RDERAMARIA DOLORES [facility] [place] [address] * POCT Glucose (06/12/2019 4:05 AM EDT) Glucose, POC 91 65 - 199 mg/dL [facility] Comment: Supplemental ranges: <140 mg/dL before meals <180 mg/dL all other times of the day Blood specimen (specimen) 06/12/2019 4:05 AM EDT 06/12/2019 4:05 AM EDT Finn Cano MD POINT OF CARE TEST O LIBORIO [facility] [place] [address] * POCT Glucose (06/12/2019 12:05 AM EDT) Glucose, POC 88 65 - 199 mg/dL [facility] Comment: Supplemental ranges: <140 mg/dL before meals <180 mg/dL all other times of the day Blood specimen (specimen) 06/12/2019 12:05 AM EDT 06/12/2019 12:05 AM EDT Finn Cano MD POINT OF CARE TEST O LIBORIO [facility] [place] [address] * POCT Glucose (06/11/2019 8:24 PM EDT) Glucose, POC 136 65 - 199 mg/dL [facility] Comment: Supplemental ranges: <140 mg/dL before meals <180 mg/dL all other times of the day Blood specimen (specimen) 06/11/2019 8:24 PM EDT 06/11/2019 8:24 PM EDT Finn Cano MD POINT OF CARE TEST O LIBORIO [facility] [place] [address] * POCT Glucose (06/11/2019 6:49 PM EDT) Glucose, POC 170 65 - 199 mg/dL [facility] Comment: Supplemental ranges: <140 mg/dL before meals <180 mg/dL all other times of the day Blood specimen (specimen) 06/11/2019 6:49 PM EDT 06/11/2019 6:49 PM EDT Finn Cano MD POINT OF CARE TEST O LIBORIO Performing Organization Address City/[facility]/ZIP Co de Phone Number [facility] [place] [address] * POCT Glucose (06/11/2019 4:50 PM EDT) Glucose, POC 77 65 - 199 mg/dL [facility] Comment: Supplemental ranges: <140 mg/dL before meals <180 mg/dL all other times of the day Blood specimen (specimen) 06/11/2019 4:50 PM EDT 06/11/2019 4:50 PM EDT Finn Cano MD POINT OF CARE TEST O LIBORIO [facility] [place] [address] * (ABNORMAL) POCT Glucose (06/11/2019 12:08 PM EDT) Glucose, POC 211(H) 65 - 199 mg/dL [facility] Comment: Supplemental ranges: <140 mg/dL before meals <180 mg/dL all other times of the day Blood specimen (specimen) 06/11/2019 12:08 PM EDT 06/11/2019 12:08 PM EDT Finn Cano MD POINT OF CARE TEST Keven CAPONE Performing Organization Address [facility] Co de Phone Number [facility] [place] [address] * (ABNORMAL) POCT Glucose (06/11/2019 10:46 AM EDT) Glucose, POC 291(H) 65 - 199 mg/dL [facility] Comment: Supplemental ranges: <140 mg/dL before meals <180 mg/dL all other times of the day Blood specimen (specimen) 06/11/2019 10:46 AM EDT 06/11/2019 10:46 AM EDT Finn Cano MD POINT OF CARE TEST Keven CAPONE Performing Organization Address [facility] de Phone Number [facility] [place] [address] * (ABNORMAL) Basic Metabolic Panel (non-fasting) (06/11/2019 10:28 AM EDT) Glucose 292(H) 65 - 199 mg/dL [facility] Comment:Diabetes: >=200 mg/d L plus symptoms Blood Urea Nitrogen 19 10 - 20 mg/dL [facility] Creatinine 1.20 0.80 - 1.50 mg/dL [facility] Sodium 137 135 - 145 mmol/L [facility] Potassium 4.7 3.5 - 5.0 mmol/L [facility] Comment: Please note: ??Patients with WBC >100,000 may have falsely elevated Potassium levels. ??For accurate Potassium quantification in these patients send serum separator tube (gold top) for subsequent determinations. ??Contact the Clinical Chemistry Laboratory if there are any questions. Chloride 99 98 - 107 mmol/L [facility] Carbon Dioxide 25 22 - 31 mmol/L [facility] Anion Gap 13 5 - 15 mmol/L [facility] Calcium 9.6 8.5 - 10.5 mg/dL [facility] Est Glomerular Filtration Rate 69 >=60 mL/min/1. 73 m?? [facility] Comment: The eGFR was calculated using the CKD-EPI equation. As with all creatinine based estimates of kidney function, eGFR values calculated with the CKD-EPI equation are not accurate in patients with acute kidney failure, extremes of body mass or the acutely ill. [email or web address] eGFR 80 >=60 mL/min/1. 73 m?? [facility] Comment: The eGFR was calculated using the CKD-EPI equation. As with all creatinine based estimates of kidney function, eGFR values calculated with the CKD-EPI equation are not accurate in patients with acute kidney failure, extremes of body mass or the acutely ill. [email or web address] Blood specimen (specimen) 06/11/2019 10:28 AM EDT 06/11/2019 11:09 AM EDT Narrative Resulting Agency Comment Spec In Lab Finn Cano MD CHEMISTRY ORDERABLES [facility] [place] [address] * (ABNORMAL) POCT Glucose (06/11/2019 7:51 AM EDT) Glucose, POC 281(H) 65 - 199 mg/dL [facility] Comment: Supplemental ranges: <140 mg/dL before meals <180 mg/dL all other times of the day Blood specimen (specimen) 06/11/2019 7:51 AM EDT 06/11/2019 7:51 AM EDT Finn Cano MD POINT OF CARE TEST O LIBORIO Performing Organization Address [facility] de Phone Number [facility] [place] [address] * (ABNORMAL) POCT Glucose (06/11/2019 3:26 AM EDT) Glucose, POC 265(H) 65 - 199 mg/dL [facility] Comment: Supplemental ranges: <140 mg/dL before meals <180 mg/dL all other times of the day Blood specimen (specimen) 06/11/2019 3:26 AM EDT 06/11/2019 3:26 AM EDT Finn Cano MD POINT OF CARE TEST O LIBORIO Performing Organization Address [facility] Co de Phone Number [facility] [place] [address] * (ABNORMAL) POCT Glucose (06/11/2019 1:04 AM EDT) Glucose, POC 320(H) 65 - 199 mg/dL [facility] Comment: Supplemental ranges: <140 mg/dL before meals <180 mg/dL all other times of the day Blood specimen (specimen) 06/11/2019 1:04 AM EDT 06/11/2019 1:04 AM EDT Finn Cano MD POINT OF CARE TEST Keven CAPONE Performing Organization Address [facility] Co de Phone Number [facility] [place] [address] documented in this encounter Visit Diagnoses Diagnosis Severe episode of recurrent major depressive disorder, 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 Diabetes mellitus type 2, insulin dependent Type II or unspecified type diabetes mellitus without mention of complication, not stated as uncontrolled Type 2 diabetes mellitus with hyperglycemia, with long-term current use of insulin Vitamin D insufficiency Unspecified vitamin D deficiency Dyslipidemia Other and unspecified hyperlipidemia documented in this encounter Admitting Diagnoses Diagnosis Adjustment disorder Unspecified adjustment reaction documented in this encounter Administered Medications Inactive Administered Medications - up to 3 most recent administrations Medication Order MAR Action Action Date Dose Rate Site allopurinol (ZYLOPRIM) tablet 300 mg 300 mg, Oral, NIGHTLY, First dose on Ela 06/11/19 at 0000, Until Discontinued, Routine Given 06/14/2019 9:05 PM EDT 300 mg Given 06/13/2019 8:53 PM EDT 300 mg Given 06/12/2019 9:33 PM EDT 300 mg aspirin tablet 325 mg 325 mg, Oral, DAILY, First dose on Ela 06/11/19 at 0900, Until Discontinued, Routine Given 06/15/2019 8:3 2 AM EDT 325 mg Given 06/14/2019 8:17 AM EDT 325 mg Given 06/13/2019 9:51 AM EDT 325 mg atorvastatin (LIPITOR) tablet 40 mg 40 mg, Oral, EVERY EVENING, First dose on Ela 06/11/19 at 0000, Until Discontinued, Routine Given 06/14/2019 5:0 7 PM EDT 40 mg Given 06/13/2019 5:18 PM EDT 40 mg Given 06/12/2019 5:25 PM EDT 40 mg cholecalciferol (Vitamin D3) tablet 1,000 Units 1,000 Units, Oral, NIGHTLY, First dose on Ela 06/11/19 at 0000, Until Discontinued Given 06/11/2019 8:48 PM EDT 1,000 Units Given 06/11/2019 1:12 AM EDT 1,000 Units cholecalciferol (Vitamin D3) tablet 2,000 Units 2,000 Units, Oral, NIGHTLY, First dose (after last modification) on Sat06/12/19 at 2100, Until Discontinued Given 06/14/2019 9:06 PM EDT 2,000 U nits Given 06/13/2019 8:50 PM EDT 2,000 Units Given 06/12/2019 9:33 PM EDT 2,000 Units dextrose 50% intravenous solution 25-50 mL 25-50 mL (12.5-25 g), Intravenous, EVERY 1 HOUR PRN, Starting on Sat06/10/19 at 2335, Until Sat06/15/19 at 1828, Low blood sugar, For BG 50-70 mg/dL: Oral treatment preferred:?? If able to drink, give 120 mL Juice or Regular (not diet) soda OR If NPO, give 15 gram glucose 40% oral gel massaged into buccal mucosa OR if unconscious or uncooperative, give 12.5 gram (25 mL) Dextrose 50% IV OR, if no IV access, give 1 mg Glucagon IM. For BG less than 50 mg/dL: Oral treatment preferred:?? If able to drink, give 240 mL Juice or Regular (not diet) soda OR If NPO, give 30 gram glucose 40% oral gel massaged in buccal mucosa OR if unconscious or uncooperative, give 25 gram (50 mL) Dextrose 50% IV OR, if no IV access, give 1 mg Glucagon IM. Recheck BG in 30 minutes. May repeat juice, gel, dextrose or glucagon once per episode. To avoid extravasation, push Dextrose 50% SLOWLY (3 mL over 1 minute) in a patent, running IV, preferably a central line. For persistent hypoglycemia, consider longer-acting treatment for the duration of the active insulin., Routine DULoxetine (CYMBALTA) capsule 60 mg 60 mg, Oral, DAILY, First dose on Ela 06/11/19 at 0900, Until Discontinued, Routine Given 06/11/2019 8:20 AM EDT 60 mg DULoxetine (CYMBALTA) capsule 90 mg 90 mg, Oral, DAILY, First dose (after last modification) on Sat06/12/19 at 0900, Until Discontinued, Routine Given 06/15/2019 8:32 AM EDT 90 mg Given 06/14/2019 8:16 AM EDT 90 mg Given 06/13/2019 9:51 AM EDT 90 mg gabapentin (NEURONTIN) capsule 900 mg 900 mg, Oral, 4 TIMES DAILY, First dose (after last modification) on Ela 06/11/19 at 0015, Until Discontinued, Routine Given 06/15/2019 12:56 PM EDT 900 mg Given 06/15/2019 8:32 AM EDT 900 mg Given 06/14/2019 9:05 PM EDT 900 mg glimepiride (AMARYL) tablet 4 mg 4 mg, Oral, 2 TIMES DAILY, First dose on Sat06/11/19 at 0000, Until Discontinued, Routine Given 06/11/2019 8:20 AM EDT 4 mg Given 06/11/2019 1:12 AM EDT 4 mg glimepiride (AMARYL) tablet 4 mg 4 mg, Oral, 2 TIMES DAILY WITH MEALS, First dose (after last modification) on Sat06/12/19 at 0800, Until Discontinued, Hold if patient is not eating or if BG < 80., Routine Given 06/15/2019 8:32 AM EDT 4 mg Given 06/14/2019 5:07 PM EDT 4 mg Given 06/14/2019 8:15 AM EDT 4 mg glucagon (human recombinant) injection SolR 1 mg 1 mg, Intramuscular, EVERY 1 HOUR PRN, Starting on Sat06/10/19 at 2335, Until Sat06/15/19 at 1828, Low blood sugar, For BG 50-70 mg/dL: Oral treatment preferred:?? If able to drink, give 120 mL Juice or Regular (not diet) soda OR If NPO, give 15 gram glucose 40% oral gel massaged into buccal mucosa OR if unconscious or uncooperative, give 12.5 gram (25 mL) Dextrose 50% IV OR, if no IV access, give 1 mg Glucagon IM. For BG less than 50 mg/dL: Oral treatment preferred:?? If able to drink, give 240 mL Juice or Regular (not diet) soda OR If NPO, give 30 gram glucose 40% oral gel massaged in buccal mucosa OR if unconscious or uncooperative, give 25 gram (50 mL) Dextrose 50% IV OR, if no IV access, give 1 mg Glucagon IM. Recheck BG in 30 minutes. May repeat juice, gel, dextrose or glucagon once per episode. To avoid extravasation, push Dextrose 50% SLOWLY (3 mL over 1 minute) in a patent, running IV, preferably a central line. For persistent hypoglycemia, consider longer-acting treatment for the duration of the active insulin., Routine glucose (GLUTOSE) 40% oral gel 15-30 g, Buccal, EVERY 30 MIN PRN, Starting on Sat06/10/19 at 2335, Until Sat06/15/19 at 1828, Low blood sugar, For BG 50-70 mg/dL: Oral treatment preferred:?? If able to drink, give 120 mL Juice or Regular (not diet) soda OR If NPO, give 15 gram glucose 40% oral gel massaged into buccal mucosa OR if unconscious or uncooperative, give 12.5 gram (25 mL) Dextrose 50% IV OR, if no IV access, give 1 mg Glucagon IM. For BG less than 50 mg/dL: Oral treatment preferred:?? If able to drink, give 240 mL Juice or Regular (not diet) soda OR If NPO, give 30 gram glucose 40% oral gel massaged in buccal mucosa OR if unconscious or uncooperative, give 25 gram (50 mL) Dextrose 50% IV OR, if no IV access, give 1 mg Glucagon IM. Recheck BG in 30 minutes. May repeat juice, gel, dextrose or glucagon once per episode. To avoid extravasation, push Dextrose 50% SLOWLY (3 mL over 1 minute) in a patent, running IV, preferably a central line. For persistent hypoglycemia, consider longer-acting treatment for the duration of the active insulin. 1 tube contains 15 grams of glucose (net weight of tube = 37.5 grams., Routine ibuprofen (ADVIL;MOTRIN) tablet 400 mg 400 mg, Oral, 3 TIMES DAILY PRN, Starting on Sat06/11/19 at 0012, Until Sat06/15/19 at 1828, Pain, Administer orally with milk or food to minimize GI irritation. Maximum dose of 3200 mg from all sources in 24 hours, Routine insulin glargine VIAL injection 20 Units 20 Units, Subcutaneous, EVERY EVENING, First dose on Sat06/11/19 at 1800, Until Discontinued, GIVE AT 6PM every night, Routine Given 06/11/2019 5:45 PM EDT 20 Units insulin glargine VIAL injection 20 Units 20 Units, Subcutaneous, NIGHTLY, First dose (after last modification) on Sat06/12/19 at 2100, Until Discontinued, Routine Given 06/12/2019 9:36 PM EDT 20 Unit s insulin glargine VIAL injection 30 Units 30 Units, Subcutaneous, DAILY, First dose (after last modification) on Sat06/15/19 at 0900, Until Discontinued, Give every morning at 9AM, Routine Given 06/15/2019 8:35 AM EDT 30 Units insulin glargine VIAL injection 40 Units 40 Units, Subcutaneous, NIGHTLY, First dose on Sat06/11/19 at 0100, Until Discontinued, Routine Given 06/11/2019 1:10 AM EDT 40 Units insulin glargine VIAL injection 40 Units 40 Units, Subcutaneous, DAILY, First dose (after last modification) on Sat06/12/19 at 0900, Until Discontinued, Give every morning at 9AM, Routine Given 06/14/2019 8:12 AM EDT 40 Units Given 06/13/2019 9:53 AM EDT 40 Units Given 06/12/2019 7:48 AM EDT 40 Units insulin lispro (HumaLOG) VIAL injection 0-12 Units 0-12 Units, Subcutaneous, 3 TIMES DAILY WITH MEALS, First dose on [facility] 06/11/19 at 0800, Until Discontinued, MEAL ASSOCIATED Give 1 unit for every 10 grams carbohydrate. Hold if not eating, Routine Given 06/15/2019 12:16 PM ED T 5 Units Given 06/15/2019 7:51 AM EDT 4 Units Given 06/14/2019 5:15 PM EDT 4 Units insulin lispro (HumaLOG) VIAL injection 1-12 Units 1-12 Units, Subcutaneous, EVERY 4 HOURS SCHEDULED, First dose (after last modification) on [facility] 06/11/19 at 2000, Until Discontinued, CORRECTION BOLUS Custom correction factor 20 BG 140 - 160 Give 1 units BG 161 - 180 Give 2 units BG 181 - 200 Give 4 units BG 201 - 220 Give 6 units BG 221 - 240 Give 9 units BG greater than 240, give 12 units and recheck BG in 2 hours. If BG remains GREATER THAN 240, GIVE 12 units (no more than two times) & call for new basal insulin orders. If less than 240 after two hours, give no insulin and resume prior schedule., Routine Given 06/13/2019 12:00 PM EDT 1 Units Given 06/12/2019 12:33 PM EDT 4 Units Given 06/12/2019 8:00 AM EDT 4 Units insulin lispro (HumaLOG) VIAL injection 1-12 Units 1-12 Units, Subcutaneous, EVERY 4 HOURS SCHEDULED, First dose (after last modification) on [place] 06/14/19 at 1200, Until Discontinued, CORRECTION BOLUS Custom ?? BG 150 - 180?Give 1 unit? BG 181 - 210?Give 2 units?? BG 211 - 240?Give 3 units? BG greater than 240, give 4 units and recheck BG in 2 hours. If BG remains greater than 240, repeat 4 units (no more than three times) & call for new basal insulin orders.?If less than 240 after two hours, give no insulin and resume prior schedule., Routine Given 06/15/2019 12:15 PM EDT 1 Units Given 06/14/2019 12:33 PM EDT 1 Units insulin lispro (HumaLOG) VIAL injection 3-12 Units 3-12 Units, Subcutaneous, 3 TIMES DAILY BEFORE MEALS, First dose on [facility] 06/11/19 at 0730, Until Discontinued, CORRECTION BOLUS Resistant to insulin obese patient or TDD (total daily dose of all insulin needed to achieve glycemic control) greater than 60 units BG 140 - 160 Give 3 units BG 161 - 200 Give 6 units BG 201 - 240 Give 9 units BG greater than 240, give 12 units and recheck BG in 2 hours.If BG less than 240 after two hours, give no insulin and resume prior schedule. If BG remains greater than 240, repeat 12 units (no more than three times) & call for new basal insulin orders. DO NOT hold if NPO, unless specifically told to do so., Routine Given 06/11/2019 12:58 PM EDT 9 Unit s Given 06/11/2019 10:49 AM EDT 12 Units Given 06/11/2019 8:17 AM EDT 12 Units isosorbide mononitrate (IMDUR) CR tablet 60 mg 60 mg, Oral, DAILY, First dose on [place] 06/11/19 at 0900, Until Discontinued, DO NOT CRUSH OR OPEN, Routine Given 06/15/2019 8:32 AM EDT 60 mg Given 06/14/2019 8:17 AM EDT 60 mg Given 06/13/2019 9:52 AM EDT 60 mg lisinopril (PRINIVIL;ZESTRIL) tablet 40 mg 40 mg, Oral, NIGHTLY, First dose on [facility] 06/11/19 at 0000, Until Discontinued, Routine Given 06/14/2019 9:0 5 PM EDT 40 mg Given 06/13/2019 8:49 PM EDT 40 mg Given 06/12/2019 9:33 PM EDT 40 mg magnesium oxide (MAG-OX) tablet 400 mg 400 mg, Oral, NIGHTLY, First dose on [facility] 06/11/19 at 0000, Until Discontinued, Routine Given 06/14/2019 9:0 5 PM EDT 400 mg Given 06/13/2019 8:49 PM EDT 400 mg Given 06/12/2019 9:35 PM EDT 400 mg metFORMIN (GLUCOPHAGE) tablet 1,000 mg 1,000 mg, Oral, 2 TIMES DAILY WITH MEALS, First dose on [place] 06/11/19 at 0800, Until Discontinued, Routine Given 06/11/2019 5:35 PM EDT 1,000 mg Given 06/11/2019 8:21 AM EDT 1,000 mg metFORMIN (GLUCOPHAGE) tablet 1,000 mg 1,000 mg, Oral, 2 TIMES DAILY WITH MEALS, First dose (after last modification) on Sat06/12/19 at 0800, Until Discontinued, Routine Given 06/15/2019 8:32 AM EDT 1,000 mg Given 06/14/2019 5:07 PM EDT 1,000 mg Given 06/14/2019 8:15 AM EDT 1,000 mg metoprolol succinate (TOPROL-XL) XL tablet 25 mg 25 mg, Oral, DAILY, First dose on [place] 06/11/19 at 0900, Until Discontinued, DO NOT CRUSH OR OPEN, Routine Given 06/15/2019 8:32 AM EDT 25 mg Given 06/14/2019 8:16 AM EDT 25 mg Given 06/13/2019 9:51 AM EDT 25 mg multivitamin with minerals (THERA-M) tablet 1 tablet 1 tablet, Oral, DAILY, First dose on [place] 06/11/19 at 0900, Until Discontinued, Routine Given 06/15/2019 8:32 AM EDT 1 tablet Given 06/14/2019 8:16 AM EDT 1 tablet Given 06/13/2019 9:50 AM EDT 1 tablet documented in this encounter Active and Recently Administered Medications Times are shown in EDT. Scheduled Medication Order 06/13/2019 06/14/2019 06/15/2019 allopurinol (ZYLOPRIM) tablet 300 mg 300 mg, Oral, NIGHTLY, First dose on [place] 06/11/19 at 0000, Until Discontinued, Routine 2052 (Given - Provider: Rachna Boles RN) 2104 (Given - Provider: Rachna Boles RN) aspirin tablet 325 mg 325 mg, Oral, DAILY, First dose on [place] 06/11/19 at 0900, Until Discontinued, Routine 0951 (Given - Provider: Adelina Ayers RN) 0817 (Given - Provider: Mavis Aj RN) 0832 (Given - Provider: Tessie George RN) atorvastatin (LIPITOR) tablet 40 mg 40 mg, Oral, EVERY EVENING, First dose on [place] 06/11/19 at 0000, Until Discontinued, Routine 1718 (Given - Provider: Rachna Boles RN) 1707 (Given - Provider: Rachna Boles RN) cholecalciferol (Vitamin D3) tablet 2,000 Units 2,000 Units, Oral, NIGHTLY, First dose (after last modification) on Sat06/12/19 at 2100, Until Discontinued 2049 (Given - Provider: Rachna Boles RN) 210 (Given - Provider: Rachna Boles RN) DULoxetine (CYMBALTA) capsule 90 mg 90 mg, Oral, DAILY, First dose (after last modification) on Sat06/12/19 at 0900, Until Discontinued, Routine 0951 (Given - Provider: Adelina Ayers RN) 0816 (Given - Provider: Mavis Aj RN) 0832 (Given - Provider: Tessie George RN) gabapentin (NEURONTIN) capsule 900 mg 900 mg, Oral, 4 TIMES DAILY, First dose (after last modification) on [place] 06/11/19 at 0015, Until Discontinued, Routine 0950 (Given - Provider: Adelina Ayers RN)1309 (Given - Provider: Adelina Ayers RN)1717 (Given - Provider: Rachna Boles RN)2049 (Given - Provider: Rachna Boles RN) 0814 (Given - Provider: Mavis Aj RN)1358 (Given - Provider: Mavis Aj RN)1707 (Given - Provider: Rachna Boles RN)2105 (Given - Provider: Rachna Boles RN) 0832 (Given - Provider: Tessie George, MANUEL)1256 (Given - Provider: Tessie George RN) glimepiride (AMARYL) tablet 4 mg 4 mg, Oral, 2 TIMES DAILY WITH MEALS, First dose (after last modification) on Sat06/12/19 at 0800, Until Discontinued, Hold if patient is not eating or if BG < 80., Routine 0952 (Given - Provider: Adelina Ayers RN)1718 (Given - Provider: Rachna Boles RN) 0815 (Given - Provider: Mavis Aj, MANUEL)1707 (Given - Provider: Rachna Boles RN) 0832 (Given - Provider: Tessie George RN) insulin glargine VIAL injection 30 Units 30 Units, Subcutaneous, DAILY, First dose (after last modification) on Sat06/15/19 at 0900, Until Discontinued, Give every morning at 9AM, Routine 0835 (Given - Provider: Tessie George RN) insulin glargine VIAL injection 40 Units (CANCELED) 40 Units, Subcutaneous, DAILY, First dose (after last modification) on Sat06/12/19 at 0900, Until Discontinued, Give every morning at 9AM, Routine 0953 (Given - Provider: Adelina Ayers RN) 0812 (Given - Provider: Mavis Aj RN) insulin lispro (HumaLOG) VIAL injection 0-12 Units 0-12 Units, Subcutaneous, 3 TIMES DAILY WITH MEALS, First dose on [place] 06/11/19 at 0800, Until Discontinued, MEAL ASSOCIATED Give 1 unit for every 10 grams carbohydrate. Hold if not eating, Routine 0952 (Given - Provider: Adelina Ayers RN - Comment: ate late)1254 (Given - Provider: Adelina Ayers RN)1720 (Given - Provider: Rachna Boles RN) 0800 (Given - Provider: Mavis Aj, MANUEL)1232 (Given - Provider: Mavis Aj RN)1715 (Given - Provider: Rachna Boles RN - Comment: 41 carbs) 0751 (Given - Provider: Tessie George, MANUEL)1216 (Given - Provider: Tessie George RN) insulin lispro (HumaLOG) VIAL injection 1-12 Units (CANCELED) 1-12 Units, Subcutaneous, EVERY 4 HOURS SCHEDULED, First dose (after last modification) on [place] 06/11/19 at 2000, Until Discontinued, CORRECTION BOLUS Custom correction factor 20 BG 140 - 160 Give 1 units BG 161 - 180 Give 2 units BG 181 - 200 Give 4 units BG 201 - 220 Give 6 units BG 221 - 240 Give 9 units BG greater than 240, give 12 units and recheck BG in 2 hours. If BG remains GREATER THAN 240, GIVE 12 units (no more than two times) & call for new basal insulin orders. If less than 240 after two hours, give no insulin and resume prior schedule., Routine 0000 (Not Given - Provider: Rachna Hernadez RN - Reason: Order parameters not met - Comment: BG 88)0400 (Not Given - Provider: Rachna Hernadez RN - Reason: Order parameters not met)0800 (Not Given - Provider: Adelina Ayers RN - Reason: Contraindicated)1200 (Given - Provider: Adelina Ayers RN)1600 (Not Given - Provider: Rachna Boles RN - Reason: Order parameters not met)1999 (Not Given - Provider: Rachna Boles RN - Reason: Order parameters not met) 0000 (Not Given - Provider: Rachna Hernadez RN - Reason: Order parameters not met)0400 (Not Given - Provider: Rachna Hernadez RN - Reason: Order parameters not met)0800 (Not Given - Provider: Mavis Aj RN - Reason: Order parameters not met) insulin lispro (HumaLOG) VIAL injection 1-12 Units(Linked Group 1) 1-12 Units, Subcutaneous, EVERY 4 HOURS SCHEDULED, First dose (after last modification) on 06/14/19 at 1200, Until Discontinued, CORRECTION BOLUS Custom ?? BG 150 - 180?Give 1 unit? BG 181 - 210?Give 2 units?? BG 211 - 240?Give 3 units? BG greater than 240, give 4 units and recheck BG in 2 hours. If BG remains greater than 240, repeat 4 units (no more than three times) & call for new basal insulin orders.?If less than 240 after two hours, give no insulin and resume prior schedule., Routine 1233 (Given - Provider: Mavis Aj RN)1600 (Not Given - Provider: Rachna Boles RN - Reason: Order parameters not met)2000 (Not Given - Provider: Rachna Boles RN - Reason: Order parameters not met) 0000 (Not Given - Provider: Adelina Ayers RN - Reason: Contraindicated)0400 (Not Given - Provider: Adelina Ayers RN - Reason: Contraindicated)0800 (Not Given - Provider: Tessie George RN - Reason: Order parameters not met)1215 (Given - Provider: Tessie George RN) isosorbide mononitrate (IMDUR) CR tablet 60 mg 60 mg, Oral, DAILY, First dose on [place] 06/11/19 at 0900, Until Discontinued, DO NOT CRUSH OR OPEN, Routine 0952 (Given - Provider: Adelina Ayers RN) 0817 (Given - Provider: Mavis Aj, MANUEL) 0832 (Given - Provider: Tessie George RN) lisinopril (PRINIVIL;ZESTRIL) tablet 40 mg 40 mg, Oral, NIGHTLY, First dose on [place] 06/11/19 at 0000, Until Discontinued, Routine 2048 (Given - Provider: Rachna Boles RN) 2104 (Given - Provider: Rachna Boles RN) magnesium oxide (MAG-OX) tablet 400 mg 400 mg, Oral, NIGHTLY, First dose on [place] 06/11/19 at 0000, Until Discontinued, Routine 2048 (Given - Provider: Rachna Boles RN) 2104 (Given - Provider: Rachna Boles RN) metFORMIN (GLUCOPHAGE) tablet 1,000 mg 1,000 mg, Oral, 2 TIMES DAILY WITH MEALS, First dose (after last modification) on Sat06/12/19 at 0800, Until Discontinued, Routine 0958 (Given - Provider: Adelina Ayers RN)1718 (Given - Provider: Rachna Boles RN) 0815 (Given - Provider: Mavis Aj, MANUEL)1707 (Given - Provider: Rachna Boles RN) 0832 (Given - Provider: Tessie George RN) metoprolol succinate (TOPROL-XL) XL tablet 25 mg 25 mg, Oral, DAILY, First dose on [place] 06/11/19 at 0900, Until Discontinued, DO NOT CRUSH OR OPEN, Routine 0951 (Given - Provider: Adelina J Naknek, RN) 0816 (Given - Provider: Mavis Aj RN) 0832 (Given - Provider: Tessie George, RN) multivitamin with minerals (THERA-M) tablet 1 tablet 1 tablet, Oral, DAILY, First dose on [place] 06/11/19 at 0900, Until Discontinued, Routine 0950 (Given - Provider: Adelina Ayers RN) 0816 (Given - Provider: Mavis Aj RN) 0832 (Given - Provider: Tessie George, RN) PRN Medication Order 06/13/2019 06/14/2019 06/15/2019 dextrose 50% intravenous solution 25-50 mL(Linked Group 2) 25-50 mL (12.5-25 g), Intravenous, EVERY 1 HOUR PRN, Starting on Sat06/10/19 at 2335, Until Sat06/15/19 at 1828, Low blood sugar, For BG 50-70 mg/dL: Oral treatment preferred:?? If able to drink, give 120 mL Juice or Regular (not diet) soda OR If NPO, give 15 gram glucose 40% oral gel massaged into buccal mucosa OR if unconscious or uncooperative, give 12.5 gram (25 mL) Dextrose 50% IV OR, if no IV access, give 1 mg Glucagon IM. For BG less than 50 mg/dL: Oral treatment preferred:?? If able to drink, give 240 mL Juice or Regular (not diet) soda OR If NPO, give 30 gram glucose 40% oral gel massaged in buccal mucosa OR if unconscious or uncooperative, give 25 gram (50 mL) Dextrose 50% IV OR, if no IV access, give 1 mg Glucagon IM. Recheck BG in 30 minutes. May repeat juice, gel, dextrose or glucagon once per episode. To avoid extravasation, push Dextrose 50% SLOWLY (3 mL over 1 minute) in a patent, running IV, preferably a central line. For persistent hypoglycemia, consider longer-acting treatment for the duration of the active insulin., Routine glucagon (human recombinant) injection SolR 1 mg(Linked Group 2) 1 mg, Intramuscular, EVERY 1 HOUR PRN, Starting on Sat06/10/19 at 2335, Until Sat06/15/19 at 1828, Low blood sugar, For BG 50-70 mg/dL: Oral treatment preferred:?? If able to drink, give 120 mL Juice or Regular (not diet) soda OR If NPO, give 15 gram glucose 40% oral gel massaged into buccal mucosa OR if unconscious or uncooperative, give 12.5 gram (25 mL) Dextrose 50% IV OR, if no IV access, give 1 mg Glucagon IM. For BG less than 50 mg/dL: Oral treatment preferred:?? If able to drink, give 240 mL Juice or Regular (not diet) soda OR If NPO, give 30 gram glucose 40% oral gel massaged in buccal mucosa OR if unconscious or uncooperative, give 25 gram (50 mL) Dextrose 50% IV OR, if no IV access, give 1 mg Glucagon IM. Recheck BG in 30 minutes. May repeat juice, gel, dextrose or glucagon once per episode. To avoid extravasation, push Dextrose 50% SLOWLY (3 mL over 1 minute) in a patent, running IV, preferably a central line. For persistent hypoglycemia, consider longer-acting treatment for the duration of the active insulin., Routine glucose (GLUTOSE) 40% oral gel(Linked Group 2) 15-30 g, Buccal, EVERY 30 MIN PRN, Starting on 06/10/19 at 2335, Until Sat06/15/19 at 1828, Low blood sugar, For BG 50-70 mg/dL: Oral treatment preferred:?? If able to drink, give 120 mL Juice or Regular (not diet) soda OR If NPO, give 15 gram glucose 40% oral gel massaged into buccal mucosa OR if unconscious or uncooperative, give 12.5 gram (25 mL) Dextrose 50% IV OR, if no IV access, give 1 mg Glucagon IM. For BG less than 50 mg/dL: Oral treatment preferred:?? If able to drink, give 240 mL Juice or Regular (not diet) soda OR If NPO, give 30 gram glucose 40% oral gel massaged in buccal mucosa OR if unconscious or uncooperative, give 25 gram (50 mL) Dextrose 50% IV OR, if no IV access, give 1 mg Glucagon IM. Recheck BG in 30 minutes. May repeat juice, gel, dextrose or glucagon once per episode. To avoid extravasation, push Dextrose 50% SLOWLY (3 mL over 1 minute) in a patent, running IV, preferably a central line. For persistent hypoglycemia, consider longer-acting treatment for the duration of the active insulin. 1 tube contains 15 grams of glucose (net weight of tube = 37.5 grams., Routine ibuprofen (ADVIL;MOTRIN) tablet 400 mg 400 mg, Oral, 3 TIMES DAILY PRN, Starting on [place] 06/11/19 at 0012, Until Sat06/15/19 at 1828, Pain, Administer orally with milk or food to minimize GI irritation. Maximum dose of 3200 mg from all sources in 24 hours, Routine traZODone (DESYREL) tablet 50 mg 50 mg, Oral, NIGHTLY PRN, Starting on Sat06/10/19 at 2336, Until Sat06/15/19 at 1828, Sleep, Routine Linked Groups Order Group 1: POCT Fingerstick Glucose (CANCELED) Routine, EVERY 4 HOURS, First occurrence on 06/14/19 at 1200, Until Specified, Consider choosing FOUR TIMES A DAY BEFORE MEALS AND AT BEDTIME as frequency for: Patients who have a good hypoglycemia awareness: -Patients who are eating meals during the day and sleeping at night -Patient who are otherwise stable And insulin lispro (HumaLOG) VIAL injection 1-12 UnitsJump to med 1-12 Units, Subcutaneous, EVERY 4 HOURS SCHEDULED, First dose (after last modification) on 06/14/19 at 1200, Until Discontinued, CORRECTION BOLUS Custom ?? BG 150 - 180?Give 1 unit? BG 181 - 210?Give 2 units?? BG 211 - 240?Give 3 units? BG greater than 240, give 4 units and recheck BG in 2 hours. If BG remains greater than 240, repeat 4 units (no more than three times) & call for new basal insulin orders.?If less than 240 after two hours, give no insulin and resume prior schedule., Routine Group 2: glucose (GLUTOSE) 40% oral gelJump to med 15-30 g, Buccal, EVERY 30 MIN PRN, Starting on Sat06/10/19 at 2335, Until Sat06/15/19 at 1828, Low blood sugar, For BG 50-70 mg/dL: Oral treatment preferred:?? If able to drink, give 120 mL Juice or Regular (not diet) soda OR If NPO, give 15 gram glucose 40% oral gel massaged into buccal mucosa OR if unconscious or uncooperative, give 12.5 gram (25 mL) Dextrose 50% IV OR, if no IV access, give 1 mg Glucagon IM. For BG less than 50 mg/dL: Oral treatment preferred:?? If able to drink, give 240 mL Juice or Regular (not diet) soda OR If NPO, give 30 gram glucose 40% oral gel massaged in buccal mucosa OR if unconscious or uncooperative, give 25 gram (50 mL) Dextrose 50% IV OR, if no IV access, give 1 mg Glucagon IM. Recheck BG in 30 minutes. May repeat juice, gel, dextrose or glucagon once per episode. To avoid extravasation, push Dextrose 50% SLOWLY (3 mL over 1 minute) in a patent, running IV, preferably a central line. For persistent hypoglycemia, consider longer-acting treatment for the duration of the active insulin. 1 tube contains 15 grams of glucose (net weight of tube = 37.5 grams., Routine Or dextrose 50% intravenous solution 25-50 mLJump to med 25-50 mL (12.5-25 g), Intravenous, EVERY 1 HOUR PRN, Starting on Sat06/10/19 at 2335, Until Sat06/15/19 at 1828, Low blood sugar, For BG 50-70 mg/dL: Oral treatment preferred:?? If able to drink, give 120 mL Juice or Regular (not diet) soda OR If NPO, give 15 gram glucose 40% oral gel massaged into buccal mucosa OR if unconscious or uncooperative, give 12.5 gram (25 mL) Dextrose 50% IV OR, if no IV access, give 1 mg Glucagon IM. For BG less than 50 mg/dL: Oral treatment preferred:?? If able to drink, give 240 mL Juice or Regular (not diet) soda OR If NPO, give 30 gram glucose 40% oral gel massaged in buccal mucosa OR if unconscious or uncooperative, give 25 gram (50 mL) Dextrose 50% IV OR, if no IV access, give 1 mg Glucagon IM. Recheck BG in 30 minutes. May repeat juice, gel, dextrose or glucagon once per episode. To avoid extravasation, push Dextrose 50% SLOWLY (3 mL over 1 minute) in a patent, running IV, preferably a central line. For persistent hypoglycemia, consider longer-acting treatment for the duration of the active insulin., Routine Or glucagon (human recombinant) injection SolR 1 mgJump to med 1 mg, Intramuscular, EVERY 1 HOUR PRN, Starting on Sat06/10/19 at 2335, Until Sat06/15/19 at 1828, Low blood sugar, For BG 50-70 mg/dL: Oral treatment preferred:?? If able to drink, give 120 mL Juice or Regular (not diet) soda OR If NPO, give 15 gram glucose 40% oral gel massaged into buccal mucosa OR if unconscious or uncooperative, give 12.5 gram (25 mL) Dextrose 50% IV OR, if no IV access, give 1 mg Glucagon IM. For BG less than 50 mg/dL: Oral treatment preferred:?? If able to drink, give 240 mL Juice or Regular (not diet) soda OR If NPO, give 30 gram glucose 40% oral gel massaged in buccal mucosa OR if unconscious or uncooperative, give 25 gram (50 mL) Dextrose 50% IV OR, if no IV access, give 1 mg Glucagon IM. Recheck BG in 30 minutes. May repeat juice, gel, dextrose or glucagon once per episode. To avoid extravasation, push Dextrose 50% SLOWLY (3 mL over 1 minute) in a patent, running IV, preferably a central line. For persistent hypoglycemia, consider longer-acting treatment for the duration of the active insulin., Routine documented in this encounter Care Teams [employer] Relationship Specialty Start Date End Date Sravani Salas APRN [address] [place] [address] PCP - General Family Medicine 01/15/17 documented as of this encounter
--- OUTSIDE RECORDS SUMMARY | 2024-08-14 01:23 | XMS_ITS | Encounter Summary ---
Author Organization [facility] [place] [address] Care Team Providers Care Medical Cost Consultant Name Role Phone Sravani Salas CADY Primary Care Provider [phone] Encounter Details Date Type Department Care Team (Late st Contact Info) Description 06/15/2019 Orders [place] [id number] Haris Garzon MD [facility] [place] [address] Type 2 diabetes, controlled, with neuropathy Social History Tobacco Use Types Packs/Day Years [...] 10:30 AM EST Office [place] [id number] Rodrigo Conteh MD [facility] [address] documented as of this encounter Visit Diagnoses Diagnosis Type 2 diabetes, controlled, with neuropathy Type II or unspecified type diabetes mellitus with neurological manifestations, not stated as uncontrolled Type 2 diabetes mellitus with hyperglycemia, with long-term current use of insulin Vitamin D insufficiency Unspecified vitamin D deficiency Dyslipidemia Other and unspecified hyperlipidemia documented in this encounter Care Teams Medical Cost Consultant Relationship Specialty Start Date End Date Sravani Salas APRN [address] [place] [address] PCP - General Family Medicine 01/15/17 documented as of this encounter
--- OUTSIDE RECORDS SUMMARY | 2024-08-14 01:23 | XMS_ITS | Encounter Summary ---
Author Organization [facility] Address [facility] [place] [address] Care Team Providers Care Entertainment Usher Name Role Phone Sravani Salas APRN Primary Care Provider [phone] Encounter Details Date Type Department Care Team (Late st Contact Info) Description 07/08/2019 Telephone Care Management [facility] [place] [id number] Pao Ling MSW [facility] [place] [address] Social History Tobacco Use Types Packs/Day Years [...] Telephone Encounter - Pao Ling MSW - 07/08/2019 3:25 PM EST Workers Compensation Demographics: WC insurance; PMA Special Education Assistant: Hever Seo Phone WC claim # [id number] DOI 01-10-15 [facility] consulted w/ CCM re: recent call from PMA floor plan adjuster inquiring about statusof SCS trial date. Given pt's recent hospitalization that was reportedly NOT billed to wc insurance, Spine staff:Kanika Figueroa requested [facility]'s assistance in contacting wc floor plan adjuster: Hever Seo. [facility] phoned floor plan adjuster to relay that pt has NOT yet been scheduled for the SCS trial, and did NOT provide any information re: pt's recent hospitalization and/or the pain provider's recommendation to defer any consideration of a SCS trial for at least 6 months, at which time would need to again clear pt for the SCS trial. WC floor plan adjuster reported that a prior authorization was NOT rendered yet for the SCS trial, and a GIDEON was being scheduled to confirm the necessity of the SCS tx plan. [facility] inquired if pt was aware of the GIDEON appt, and floor plan adjuster reports this was just scheduled today 07-08 so pt would be receiving a certified letter in the mail re: the GIDEON appt. [facility] clarified that I have not been actively involved in this wc pt's case, but invited floor plan adjuster to f/u w/ me PRN if in need of my assistance. [facility] attempted to reach pt via his cell phone to relay recent contact w/ his wc insurance, but his phone account for voice messages is not yet set up. [facility] phoned the home # [phone] which is pt's parent's home. Pt's mom relayed that pt did not have his cell phone w/ him as he is currently hospitalized in [facility], reportedly for his depression, according to pt's mom's report. Pt's mom relayed that pt was unable to make the endocrinology appt on 06-26 due to his hospitalization. P: [facility] will collaborate w/ pt's [facility] tx team re: the aforementioned encounters w/ wc sales consultant insurance re: SCS trial and GIDEON appt, and w/ pt's mom re: pt's current hospitalization. documented in this encounter Plan of Treatment Upcoming Encounters Date Type Department Care Team (Late st Contact Info) Description 08/18/2024 10:30 AM EST Office Visit [place] [phone] Rodrigo Conteh MD [facility] [address] [address] documented as of this encounter Visit Diagnoses Not on filedocumented in this encounter Care Teams Entertainment Usher Relationship Specialty Start Date End Date Sravani Salas APRN [address] [place] [address] PCP - General Family Medicine 01/15/17 documented as of this encounter
--- OUTSIDE RECORDS SUMMARY | 2024-08-14 01:23 | XMS_ITS | Encounter Summary ---
[place] [address] Care Team Providers Care Hoop Punch Operator Helper Name Role Phone Sravani Salas APRN Primary Care Provider [phone] Reason for Visit * Auth/Cert Specialty Diagnoses / Procedures Referred By Contvianey t Referred To Contact Diagnoses ADA (iron deficiency anemia) iron def.anemia screening Procedures PRO COLONOSCOPY, DIAGNOSTIC COLONOSCOPY, DIAGNOSTIC Referral ID Status Reason Start Date Expiration Date Visits Re quested Visits Authorized [id number] 1 1 Encounter Details Date Type Department Care Team (Late st Contact Info) Description 03/11/2020 1:03 PM EDT - 03/11/2020 4:19 PM EDT Hospital Encounter [place] [phone] Conrad Jones MD [facility] [place] [address] Discharge Disposition: Home Social History Tobacco Use [...] occurs, please contact your Doctor. Please call [phone] before 8pm Mon-Fri with problems, questions or concerns. If you call after 8pm or on weekends, call the Hospital at [phone] and ask to speak to the Building Code Inspector operations recruiter and the vortex operator will contact that person for you. When should you call for help? Call [phone] anytime you think you may need emergency [...] After Visit Summary and more online at [email or web address] If you would like to provide feedback about your hospital experience, please call the Office of Patient and Family Relations at . If you have received this After Visit Summary in error, please immediately return it in person to the department, or notify the -H Privacy Office by calling toll free at between the hours of 8AM and 5PM to arrange for our retrieval of the documents at no cost to you. Content Version: 12.2 ?? [id number] [employer]. Care instructions adapted under license by [facility]. If you have questions about a medical condition or this instruction, always ask your healthcare professional. [employer] disclaims any warranty or liability for your [...] 10:30 AM EST Office [place] [address] Rodrigo Conteh MD [facility] [place] [address] documented as of this encounter Procedures Procedure Name Priority Date/Time Associated Diagnosis Comments Colonoscopy, Diagnostic ([id number]) 03/11/2020 2:07 PM EDT iron def.anemia screening POCT GLUCOSE Routine 03/11/2020 2:04 PM EDT COLONOSCOPY Routine 03/11/2020 1:47 PM EDT POCT GLUCOSE Routine 03/11/2020 1:25 PM EDT documented in this encounter Results * POCT Glucose (03/11/2020 2:04 PM EDT) Glucose, POC 89 65 - 199 mg/dL [facility] Comment: Supplemental ranges: <140 mg/dL before meals <180 mg/dL all other times of the day Blood specimen (specimen) 03/11/2020 2:04 PM EDT 03/11/2020 2:04 PM EDT Conrad Jones MD POINT OF CARE MARIO T ORDERABLES [facility] [place] [address] * COLONOSCOPY (03/11/2020 1:47 PM EDT) COLONOSCOPY [facility] Endoscopy ___ Procedure Date: 03/11/2020 1:47 PM ? Patient Name: Isiah eMdrano ? Date of : 1965 ? Age: 55 ? Order #: [id number] ? Instrument Name: [id number] ? ___ Procedure: ? Colonoscopy Indications: ? [...] preparation was evaluated using ? the BBPS ([place] Bowel Preparation ? Scale) with scores of: [...] personally performed the entire procedure. ? Sofia Almanaz MD Sofia Almanza MD 03/11/2020 3:09:16 PM This report has been signed electronically. Number of Addenda: 0 Note Initiated On: 03/11/2020 1:47 PM PROVATION 03/11/2020 1:47 PM EDT Sravani Salas APRN GENERAL SURGICAL ORDERABLES Performing Organization Address [facility] Co de Phone Number PROVATION * (ABNORMAL) POCT Glucose (03/11/2020 1:25 PM EDT) Glucose, POC 61(L) 65 - 199 mg/dL [facility] Comment: Supplemental ranges: <140 mg/dL before meals <180 mg/dL all other times of the day Blood specimen (specimen) 03/11/2020 1:25 PM EDT 03/11/2020 1:25 PM EDT Conrad Jones MD POINT OF CARE MARIO T ORDERABLES Performing Organization Address [facility] de Phone Number [facility] [place] [id number] documented in this encounter Visit Diagnoses Not [...] 1:39 PM EDT 100 mL/hr 100 mL/hr lactated ringers infusion 100 mL/hr, Intravenous, CONTINUOUS, Starting on Sat03/11/20 at 1345, Until Sat03/11/20 at 1606, Endoscopy (Day of Procedure) New Bag 03/11/2020 1:30 PM EDT 100 mL/hr 100 mL/hr documented in this encounter Active and Recently Administered Medications Times are shown in EDT. Continuous Medication Order 03/09/2020 03/10/2020 03/11/2020 dextrose 5% and sodium chloride 0.45% infusion (CANCELED) 100 mL/hr, Intravenous, CONTINUOUS, Starting on Sat03/11/20 at 1400, Until Sat03/11/20 at 1606, Endoscopy (Day of Procedure) 1339 (New Bag - Prov ider: Lyndsey Badillo RN) lactated ringers infusion (CANCELED) 100 mL/hr, Intravenous, [...] Lyndsey Edmond RN)1429 (Given - Provider: Lyndsey Edmond, MANUEL)1437 (Given - Provider: Lyndsey Edmond, MANUEL) midazolam (PF) (VERSED) multi-dose injection (CANCELED) ONCE PRN, Starting on Sat03/11/20 at 1422, Until Sat03/11/20 at 1819, Intra-Operative (Intra-Procedure), Routine 1422 (Given - Provid er: Lyndsey Edmond RN)1425 (Given - Provider: Lyndsey Edmond RN)1429 (Given - Provider: Lyndsey Edmond RN)1437 (Given - Provider: Lyndsey Edmond RN) documented in this encounter Care Teams Hoop Punch Operator Helper Relationship Specialty Start Date End Date Sravani Salas APRN [address] [place] [address] PCP - General Family Medicine 01/15/17 documented as of this encounter
--- OUTSIDE RECORDS SUMMARY | 2024-08-14 01:23 | XMS_ITS | Encounter Summary ---
[place] [address] Care Team Providers Care Supervisor Mending Name Role Phone Sravani Salas APRN Primary Care Provider [phone] Reason for Visit * Reason Onset Date Comments Prior Authorization 06/11/2019 PENDING AUTH FOR [place] - REF # [id number] Encounter Details Date Type Department Care Team (Late st Contact Info) Description 06/11/2019 [place] [phone] Jack Monique Prior Authorization (PENDING AUTH FOR [facility] [place] - REF # [id number]) Social History Tobacco Use Types Packs/Day Years [...] encounter Miscellaneous Notes * Telephone Encounter - Jack Monique - 06/11/2019 8:53 AM EDT - Insurance Verified: [place] - Insurance Effective To/From Dates: 09/02/2018 TO CURRENT - Third Constitution Party Vendor: NA - Authorization number: # [id number] - Validity Dates: PENDING CLINICAL REVIEW - Date of Service: 06/10/2019 TO CURRENT - CPT/Description: EMERGENCY IPI - ICD-10/Description: Adjustment disorder [F43.20] - Ordering Provider: Finn Cano MD [id number] - Patient Class: IPI - How many days approved: 1 WITH CONCURRENT REVIEW - Call Reference Number: # [id number] - Spoke With: CAL [employer] WEBSITE / ADDIS 06/11/2019 @ 08:47 AM - - Financially Cleared: YES - UR Contact Information - UR Name: SARAH - - - Additional Clinical Required Y/N?: Y - Patient Class Change Requirements: NO AUTH REQ'D FOR OBSVO < 48 HRS. - Notes - Include any additional documentation if provided: HAD TO CALL IN ALSO I CANNOT SEE THEAUTH AFTER IT IS SUBMITTED ON [employer] VERIFIED THE PT ON [facility] PROVIDER PORTAL. FILED AUTH # VIA [employer]. PT IS LOCATED ON [address] ATTN: ENRIQUE VOSS RN PHONE: [phone] FAX: [phone] documented in this encounter Plan of Treatment Upcoming Encounters Date Type Department Care Team (Late st Contact Info) Description 08/18/2024 10:30 AM EST Office [place] [address] Rodrigo Conteh MD [facility] [place] [address] documented as of this encounter Visit Diagnoses Not on filedocumented in this encounter Care Teams Supervisor Mending Relationship Specialty Start Date End Date Sravani Salas APRN [address] [place] [address] PCP - General Family Medicine 01/15/17 documented as of this encounter
--- OUTSIDE RECORDS SUMMARY | 2024-08-14 01:23 | XMS_ITS | Encounter Summary ---
Author Organization [facility] Address [facility] [place] [address] Care Team Providers Care Stave Jointer Name Role Phone Sravani Salas APRN Primary Care Provider [phone] Reason for Referral * Consultation (Routine) - Closed Specialty Diagnoses / Procedures Referred By Nii t Referred To Contact Orthopaedics Diagnoses Ulnar neuropathy of right upper extremity GAP Cleveland Torres MD [facility] [place] [address] [facility] [address] [place] [address] Referral ID Status Reason Start Date Expiration Date V isits Requested Visits Authorized [id number] Closed Consult, Test & Treat 02/22/2020 02/21/2021 1 1 Encounter Details Date Type Department Care Team (Late st Contact Info) Description 02/22/2020 Telephone [facility] [place] [address] Cleveland Torres MD [facility] [place] [address] Social History Tobacco Use Types Packs/Day Years [...] Telephone Encounter - Cleveland Torres MD - 02/22/2020 12:44 PM EDT I spoke to the patient and as per the AIC committee recommendations I am going to order a gap evaluation as well as a updated hemoglobin A1c. He is still very interested in pursuing the stimulator trial. His pain has not changed much. He tells me his mood has gotten better. documented in this encounter Plan of Treatment Upcoming Encounters Date Type Department Care Team (Late st Contact Info) Description 08/18/2024 10:30 AM EST Office Visit [place] [address] Rodrigo Conteh MD [facility] [place] [address] Scheduled Referrals Name Type Priority Associated Diagnoses Orde r Schedule Referral to Spine Center Outpatient Referral Routine Ulnar neuropathy of right upper extremity Ordered: 02/22/2020 documented as of this encounter Results * (ABNORMAL) Hemoglobin A1c (03/24/2020 4:34 PM EDT) Hemoglobin A1c 6.2(H) 4.3 - 5.6 % [facility] Comment: Reference Range: 4.3 - 5.6% [...] Mellitus, Diabetes Care 2013; 36: Suppl. 1, V97-21 Estimated Average Glucose 132 mg/dL [facility] Comment: eAG equivalents for HbA1c percentages: [...] into estimated average glucose values. ??Diabetes Care 2008:31(8):3880-1203. 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
--- OUTSIDE RECORDS SUMMARY | 2024-08-14 01:23 | XMS_ITS | Encounter Summary ---
[place] [address] Care Team Providers Care Medical Nurse Name Role Phone Josue Sravani Rosen CADY Primary Care Provider [phone] [phone] Encounter Details Date Type Department Care Team (Late Contact Info) Description 08/18/2019 Telephone [facility] [place] [address] Barbara Mari RN Social History Tobacco Use Types Packs/Day [...] encounter Miscellaneous Notes * Telephone Encounter - Barbara Mari RN - 08/18/2019 3:59 PM EST Incoming call from Niki RN form [facility] to state that this patient, dure to some changes in living situation, has not taken his LDN in 2 months and is having pain and Niki is asking for direction. Niki was instructed that pt should be re-evaluated in the Pain clinic and she was providedthe phone number for pt to call to make an appointment. documented in this encounter Plan of Treatment Upcoming Encounters Date Type Department Care Team (Late st Contact Info) Description 08/18/2024 10:30 AM EST Office [place] [address] Rodrigo Conteh MD [facility] [place] [address] documented as of this encounter Visit Diagnoses Not on filedocumented in this encounter Care Teams Medical Nurse Relationship Specialty Start Date End Date Sravani Salas APRN [address] [place] [address] PCP - General Family Medicine 01/15/17 documented as of this encounter
--- OUTSIDE RECORDS SUMMARY | 2024-08-14 01:23 | XMS_ITS | Encounter Summary ---
Author Organization [facility] Dustin lang [place] [id number] Care Team Providers Care Steam Crane Operator Name Role Phone Sravani Salas APRN Primary Care Provider [phone] Reason for Visit * Consultation (Routine) - Closed Specialty Diagnoses / Procedures Referred By Contvianey t Referred To Contact [facility] Diagnoses Pain of right upper extremity SCS eval *ok to schedule Cleveland Torres MD [facility] [place] [id number] Asia Hernandez [facility] [place] [address] Referral ID Status Reason Start Date Expiration Date V isits Requested Visits Authorized [id number] Closed Consult, Test & Treat 10/28/2019 10/27/2020 1 1 Encounter Details Date Type Department Care Team (Late st Contact Info) Description 11/16/2019 10:30 AM EDT Office Visit [facility] at [facility] [place] [address] Asia Hernandez [facility] [place] [id number] Major depressive disorder, recurrent episode, moderate Social History Tobacco Use Types Packs/Day Years [...] of this encounter Progress Notes * Asia Hernandez, PsyD - 11/16/2019 10:30 AM EDT BEHAVIORAL MEDICINE ASSESSMENT EVALUATION FOR SPINAL CORD STIMULATOR [facility] AT [facility] [address] Dept: [phone] Loc: [phone] 11/16/2019 10:40 AM Isiah Medrano is a 54 y.o. male who was referred by Cleveland Torres MD to evaluate psychological functioning in preparation for a spinal cord stimulator implantation. Isiah was seen for 90 minutes. he was alone. Isiah presented with no assistive devices. The process and purpose of the pre-surgical assessment was explained to the patient, who expressed agreement and understanding. Limits to confidentiality were reviewed and verbal informed consent obtained. As part of this assessment, the patient completed the following self-report symptom measures: Pain Drawing, Pain Outcome Questionnaire (POQ), Pain Catastrophizing Scale (PCS), Patient Health Questionnaire (PHQ9), and Insomnia Severity Index (I SI). SUMMARY Isiah is approved for the SCS from a psychological standpoint.. Based on the information gathered today, he is at medium risk for emotional complications. Main concerns: History of poor coping skills,stressful home environment. Social support: fair for emotional support (e.g., listening, comforting) and good for task support (e.g., transportation, daily living care). Primary support: comes from adult child(nadege), friend(s) and parent(s). Health behaviors: are not problematic. Information preference: he is a moderate information seeker, and indicates that the doctors/nurses are communicating well. Isiah would ask questions to the team. Potential barriers to treatment compliance: marital stress DIAGNOSIS (based on information gathered in this evaluation): Major Depressive Disorder, Moderate, in partial remission. TREATMENT PLAN AND RECOMMENDATIONS: Patient will be referred to [facility] for final consideration of SCS Based on the information gathered at today's appointment, Isiah Medrano appears to be a good candidate for surgery. This decision is based on the followin. Isiah has good knowledge of the surgery and understands the risks & benefits of having a surgery 2. Isiah does not have a history of attendance or adherence issues 3. Isiah is not engaging in problematic health behaviors 4. Isiah's social support is good 5. Isiah experienced marked mental health problems in the past year 6. Isiah experienced little mental health problems earlier in life. Isiah would benefit from the following to assist with preparing for surgery: If his trial/surgery issubstantially delayed due to public health concerns/[facility] Coronavirus mitigation efforts, recommend brief follow up with this provider to assess MH standing. Additionally recommend cognitive behavioral treatment for insomnia. ADDITIONAL RECOMMENDATION Whether Isiah proceeds with SCS, it should also be noted that the most appropriate treatment is a comprehensive approach to pain management that addresses psychological, medical, physical, and occupational needs in a structured program. It is likely that he would benefit additionally from treatment in [facility] through individualized occupational and physical therapies.The program will help Isiah develop a therapeutic exercise regime to improve his physical condition,reduce fear of movement, and safely increase his activity levels. At the same time, the program will use a cognitive-behavioral therapy approach to improve his ability to manage pain, decrease emotional distress, and decrease reliance on medical procedures. Symptom management will be enhanced through mindfulness and relaxation training. It seems likely that Isiah will experience some ongoing or recurrent pain symptoms in the future, therefore participation in the program will provide him with better strategies for coping with the remaining pain through a self-management approach. Overall, thistreatment program should help Isiah resume valued activities, including possibly a return to gainfulemployment. The follow up plan is as follows: No additional follow up from this provider is planned at this time. Patient has been informed of my findings and provided information on the subsequent steps of committee approval and trial scheduling. The above assessment and plan was based on the following information obtained during the appointment: PAIN & MOOD SUMMARY Isiah presents as relatively neutral with constricted affect, reporting an average level of pain of 8/10 over the past week, which he states does not interfere with his ability to walk, but often interferes with his ability to carry objects and climb stairs. He does not require use of an assistive device. He reports moderate interference with his ability to bathe and dress himself, but few problems with grooming or using the bathroom. He states that pain greatly affects his self-esteem, and reports moderate levels of depression (PHQ9 = 11), anxiety, insomnia, tension, and problems with concentration that make it extremely difficult to work, take care of things at home, and get along with other people. Isiah reports that pain moderately limits his basic physical activities, and he has lower levels of energy, strength, and endurance. He often worries about re- injuring herself if he is more active, and believes it is pretty unsafe to exercise. Lastly, he reports a very high level of catastrophic thinking related to his pain, particularly magnification, rumination, and feelings of helplessness (PCS= 37/52 ). Isiah was screened for suicidal ideation and any history of suicidal behavior, which he endorsed. Hestated that at this time, he is not experiencing suicidal ideation. He experienced a period of suicidal ideation with plan and intent last fall (May-Jul 2019) in response to an acute stressor (marital separation). He reports that he has now been stabilized for several months on medications, and continues to see a psychotherapist with whom he has a strong rapport on a biweekly basis. RELEVANT PAIN HISTORY (being copied note, Cleveland Torres MD, 10/28/2019) PAIN ASSESSMENT: Description: burning Location: a little bit in right armright arm into hand--affecting 4th and 5th digits only in hand Weakness, numbness, tingling: numbness/tingling almost seems normal now Other associated symptoms: shooting pains down RUE Alleviating factors: none identified (tried moving the ulnar nerve and that didn't help) Aggravating factors: moving it/using it makes it worse Onset: 01/10/15 - original injury, smashed his elbow while working due to fall off his truck, feels now like he stuck it in a wood stove. Went to hospital the next day because it felt like a burning pain. Pain today: 8/10 Best in past week: 8/10 Worst in past week: 10/10 - if he tries to use it, any amount of use makes it worse. ??PAST THERAPIES: Acetaminophen: doesn't help NSAID: doesn't help Opioids: tried years ago and didn't help Storage of opioids:na Antidepressants: on cymbalta now - does not think that it's helping a lot. Anticonvulsants: on gabapentin now 3600mg daily - feels like it's helping, has been on this for years. Muscle relaxants: none Topicals: compounded ointment--helps a little Herbal supplements/vitamins: none Injections: had injections stellate and an ulnar nerve block--neither worked Surgery:relocation surgery on ulnar nerve Physical Therapy: that helped some--WC spoke with Dr Wood and PT was stopped - has been 1.5 year now, it helped at the time; tries to do some exercise, feels like he's lost all his strength. TENS: none Acupuncture: none Chiropractic: none Massage: none CBT,Meditation/Imagery: none Yoga/Duran Chi/ Movement: none Marijuana: none Other: none (end copied note) Previous treatment: Pt reports that he had a stimulator on his arm previously 2 years ago, didn't find it helpful. States that the new stimulator will be in his back. Has had 4-5 ulnar nerve surgeries, with no effect; had these surgeries here and in [place]. Patient's perspective on why he still has pain - because it ain't fixed - thinks it hasn't healedin five years. States that he was told that his pain in his nerves could take -7-10 years to heal. Personal Coping: Pain stays at an 8, does not perceive any variability, does not feel that he is functional; Does a lot of work with his hands. Hoped for pain relief: 4-5/10 would be great. DAILY FUNCTIONING Describes a typical day as not doing much, doing stuff around the house, keeping the house tidy; grocery shopping; Spends time on his computer, looks at [employer]ube, enjoy [employer], enjoyed riding before; enjoys going to car races; Ability to engage in ADLs: can Activity pacing: does have difficulties pacing activities, trying to shovel the walk or mowing the lawn might aggravate it enough that he's not able to do anything for a few days. Current limitations in functioning due to pain: Anything that requires two hands. 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 Every spring they send him to another doctor to see if he can go back to work. Has not been referred to [facility]. SOCIAL HISTORY/CURRENT FUNCTIONING Household composition: Lives at home with his and 18 year old son school, who is in college (currently on a break due to Covid). Relationship status: .33 years - recently ; now living together. Quality of relationship: stressful - Patient reports relationship has gotten worse since his accident because he is not working. last year because she was seeing somebody else and then threw (him) out; he is now back at home, he thinks that she needs him at home to help pay the bills, he went back because he wants to be in his own home. He has been thinking of divorce, not sure if she is. They haven't really talked about what's happening. He feels good to be back in his home, but doesn't feel good about the rest of it. His son is pretty mad at her, things have been tense in the home; they all just sort of avoid each other. He paid for that house, so he should be able to live in it. Progeny: Children: 18 year old son Grandchildren: 0 Quality of relationship with children: supportive. 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 Does not miss that. Stopped doing this because he wanted to be home more. CURRENT SOCIAL SUPPORT NETWORK Primary support comes from adult child(nadege) and friend(s) - has a good friend about five miles away Quality of EMOTIONAL support: good - tries to talk with his friend about what's going on in his life, tries to keep his son out of it. Quality of TASK support: excellent - tries not to lay this on him, wants his son to be able to do what he wants. Identified post-procedure caregiver: parent(s) - he would go up to his parents (10-12 miles from his parents). MENTAL HEALTH HISTORY History of Depression - Onset with the separation from in May 2019; severe requiring hospitalization, no evidence of psychotic features. Patient now believes that this acute episode has ended, though he continues to struggle with some low mood and poor sleep. He primarily attributes chronic pain to much of his impairment in functioning at this time. Current sx appear mild to moderate, aggravated primarily by poor sleep, stressful living environment, uncertainty of future status with his spouse. History of Trauma: Denied History of Anxiety: Worries about Covid-19; anxious about his arm, wondering if it 's ever going toget better; Other History (SPMI): Denies Current treatment (therapy, medication): As noted below, he is currently working an outpatient community-based therapist with whom he has a good relationship. He is prescribed the following relevant medications: - Sertraline 100mg daily - Aripiprazole 10mg daily - Duloxetine 60 mg daily - Trazodone 100mg - Gabapentin 900 qid (as noted) He currently carries a diagnosis of Major Depressive Disorder, recurrent, severe, without psychoticfeatures. Today, his depressive symptoms appear to have lessened in response to treatment and coping. He denies today feeling suicidal, and states that he has not experienced suicidal ideation in over 30 days. Endorses the following Little Interest or pleasure in doing things he typically likes to do - several days Feeling down depressed or hopeless - several days Trouble falling/staying asleep - Nearly every day Feeling tired, having little energy - Several days Poor appetite/overeating - more than half the days Feelings of guilt/worthlessness - Several days Difficulties concentrating - Several days Psychoretardation - Several days Suicidal ideation - not at all. Patient's report of previous depressive episode Patient related the story of his psychiatric hospitalizations in Fall 2018. States that his spouse kicked him out following a argument, he stayed in his car; went to his parents; Then went to the emergency room, stating that he was depressed and suicidal; Denies that he had ever experienced. Depressed: didn't want to be around anyone; felt that way for a couple days; was thinking of how he would harm himself, but denies that he had a plan; Stated that he had intent, but no plan. Stayed in the ER overnight, then sent to [place], admitted for 3 days. Jackson like everyone else was a drug addict. Attended groups; talked about cognitive behavior; states he was diagnosed with depression.; states that at the end of three days, he was discharged; was given an increased dosage of cymbalta; Went back to his parents for a couple days. Parents are not emotionally supportive, can't understand why he doesn't snap out of it. Then came to ER, then came to , he refused to [place] - was transitioned into psych abrams here. Was here for 3 days, attended groups (required), he noted that he started to feel better, stopped feeling suicidal; Diagnosed with depression and anxiety; acknowledges that he thinks he might be anxious. Was discharged with self help plan, also arranged for a therapist; Back to the emergency room, went to the [facility]; was given some new medications (they reallyhelped him a lot). Saw a doctor and therapist every day, had groups all day. Sertraline 100x2; Imipramine 50mg daily, apiprazole 5mg/day; feels like this is helping; Stayed at [facility] for 23 days. States that his previous therapist ([facility]) never asked how he was feeling; seemed to be conducting intake for the first 3-4 appointments, but never received therapy. He requested a new therapist and now [facility]; he is seeing her through her private practice because his spouse work in an administrative job at [facility]; Seeing her weekly, now biweekly; States that they work on his feelings, what is causing his feelings; tries to help him with his relationships with his parentsand his . COPING STYLE Isiah uses the following methods to cope with difficult circumstances: Reads the Bible, tries to stay busy, watch [employer]ube, Grocery shopping; HEALTH BEHAVIORS ETOH: none; Drugs: Denied Nicotine: non-smoker Caffeine: 1 cups/day Exercise: moderately active - walks every day for 45 minutes Sleep: Hours of sleep per night 5 - difficulty falling asleep, difficulty staying asleep (especially if he worried). SELF REPORT SYMPTOM QUESTIONNAIRES JEANNETTE-7 Patient Reported Responses 04/07/2019 Nervous, anxious [...] difficult JEANNETTE-7 Score (Patient) 11 (Moderate Anxiety) PHQ-9 QUESTIONNAIRE (AMB) 06/10/2019 PHQ - 9 Score (Clinic) 11 (Moderate Depression) PHQ - 9 Score (Patient) - Little interest or pleasure (Clinic) Nearly every day Little interest or pleasure (Patient) - Down, depressed, hopeless (Clinic) More than half the days Down, depressed, hopeless (Patient) - Trouble sleeping (Clinic) Several days Trouble sleeping (Patient) - Tired or no energy (Clinic) Several Days Tired or no energy (Patient) - Poor appetite or overeating (Clinic) More than half the days Poor appetite or overeating (Patient) - Feeling like a failure (Clinic) Not at all Feeling like a failure (Patient) - Trouble concentrating (Clinic) Several Days Trouble concentrating (Patient) - Moving or speaking slowly (Clinic) Not at all Moving or speaking slowly (Patient) - Would be better off (Clinic) Several Days Would be better off (Patient) - How difficult are the problems (Clinic) Very difficult Audit & Substance Use Responses 04/07/2019 Drinking frequency Never Used drug or prescription medication for non medical reason No PTSD: PTSD Patient Reported Responses 04/07/2019 Experienced traumatic event No AUDIT AUDIT Patient Reported Responses 04/07/2019 Drinking frequency Never UNDERSTANDING OF THE DEVICE. Isiah received information about the spinal cord stimulator, and expressed understanding the treatment plan. Isiah does understand that the level of improvement is not predictable. Isiah does understandthat the SCS does not treat the underlying condition, but that it treats the resulting pain. Isiah is aware of the guidelines during the SCS trial: ?? Unable bend over at the waist or neck ?? Unable to reach overhead ?? Unable to twist ?? Unable to take a bath - can have a sponge bath and not get the dressing wet ?? Required to keep a pain journal to monitor pain levels during different activities DETAIL OF INFORMATION PREFERENCE Isiah is a moderate information seeker . Isiah is receiving the right amount of information from the doctors and nurses. Isiah indicates that the doctors/nurses are communicating well. Isiah would ask questions to the team. ADHERENCE AND ATTENDANCE Number of No-show appointments in the past 6 months based on EMR (if possible): None Number of Cancelled appointments in the past 6 months based on EMR (if possible): None Reason for cancellations/no shows (if necessary to address): n/a Medication adherence - how many days in the past 7 did you miss any of your medications?: Denied Potential barriers to treatment compliance: Marital stress may be a trigger for decompensation in the future, however Isiah appears well connected to a MH therapist at this time, is able to discuss coping skills, and has expressed confidence that he is able to tolerate additional distress related tohis spouse. PATIENT CONCERNS Isiah has the following concerns at this time: Denied. BEHAVIORAL OBSERVATIONS Presentation: Unaccompanied, on time; Alert, oriented x 3. Appearance: Clean, dressed neatly in casual clothing. Well-groomed. Behavior: Cooperative, appropriate, good eye contact. Pain Behaviors: Slow, guarded movements Mood: Neutral, stated fine Affect: Slightly constricted. SI/HI: Denied ideation, plan, or intent. Thought process: Linear, goal-directed, logical. No evidence of hallucinations, ly, or delusions. Speech: Normal rate, rhythm, volume. Judgment/Insight: Good. Cognitive Function: WNL ASSESSMENT The complete assessment and plan for Isiah are detailed at the beginning of this report. documented in this encounter Plan of Treatment Upcoming Encounters Date Type Department Care Team (Late st Contact Info) Description 08/18/2024 10:30 AM EST Office [place] [address] Rodrigo Conteh MD [facility] [address] Scheduled Referrals Name Type Priority Associated Diagnoses Orde r Schedule Referral to Spine Center Outpatient Referral Routine Pain of right upper extremity Ordered: 10/28/2019 documented as of this encounter Visit Diagnoses Diagnosis Major depressive disorder, recurrent episode, moderate Type 2 diabetes mellitus with hyperglycemia, with long-term current use of insulin Vitamin D insufficiency Unspecified vitamin D deficiency Dyslipidemia Other and unspecified hyperlipidemia documented in this encounter Care Teams Steam Crane Operator Relationship Specialty Start Date End Date Sravani Salas APRN [address] [place] [address] PCP - General Family Medicine 01/15/17 documented as of this encounter
--- OUTSIDE RECORDS SUMMARY | 2024-08-14 01:24 | XMS_ITS | Encounter Summary ---
[place] [address] Care Team Providers Care Telephone Switchboard Operator Name Role Phone Sravani Salas APRN Primary Care Provider [phone] Reason for Referral * Surgical (Routine) - Specialty Diagnoses / Procedures Referred By Contac t Referred To Contact Diagnoses Ulnar neuropathy of right upper extremity Procedures NERVE BLOCK - OTHER Cleveland Torres MD [facility] [place] [address] Referral ID Status Reason Start Date Expiration Date V isits Requested Visits Authorized [id number] Consult, Test & Treat 11/22/2017 11/22/2018 1 1 Reason for Visit * Reason Comments Right Arm Pain * Surgical (Routine) - Closed Specialty Diagnoses / Procedures Referred By Contac t Referred To Contact Pain Management Diagnoses Right arm pain ultrasound guided ulnar nerve block-METFORMIN Procedures PRO INJECT NERV BLCK, OTHR PERIPH NERV PROCEDURE 2 Sravani Salas APRN [address] [place] [address] Cleveland Torres MD [facility] [place] [address] Referral ID Status Reason Start Date Expiration Date Visits Re quested Visits Authorized [id number] Closed 11/22/2017 11/22/2018 1 1 Encounter Details Date Type Department Care Team (Latest Contact Info) Description 11/22/2017 1:15 PM EDT Procedure visit Pain Management at [facility] [place] [address] Cleveland Torres MD [facility] [place] [id number] Ulnar neuropathy of right upper extremity Social [...] Sign Reading Time Taken Comments Blood Pressure 118/73 11/22/2017 1:54 PM EDT Pulse 78 11/22/2017 1:54 PM EDT Temperature - - Respiratory Rate 16 11/22/2017 1:54 PM EDT Oxygen Saturation 94% 11/22/2017 1:54 PM EDT Inhaled Oxygen Concentration - - Weight 99.8 kg (220 lb) 11/22/2017 1:25 PM EDT Height 172.7 cm (5' 8) 11/22/2017 1:25 PM EDT Body Mass Index 33.45 11/22/2017 1:25 PM EDT documented in this encounter Patient Instructions * Patient Instructions* Yana Leonardo LPN - 11/22/2017 1:15 PM EDT Pain Management Center Discharge Instructions: You were seen by Dr. Cleveland Torres MD who performed Ulnar Nerve Block. It is normal that the injection site will be sore for up to 48 hours. You may also experience mild stiffness in the joint near the injection site. [x] You may resume your normal activities: tomorrow. You may shower today. DO NOT tub bathe, use whirlpools, hot tubs or pool therapy for 2 days. RemoveBand-Aid(s) later today/tomorrow. Do not drive until tomorrow. Use caution walking/climbing stairs as you may be unsteady on your feet. You may use your usual medications, including pain medications, as directed, unless otherwise instructed. You may use an ice pack as needed for the first 24 hours, on for 20 minutes then off for 20 minutes. Do not apply heat today. Attempt to empty your bladder 4-6 hours after your procedure. [x] If you have diabetes, monitor your blood sugars frequently. If your blood sugar increases and is of concern, contact your Primary Care Provider. You received the following medications: Bupivacaine. During regular business hours, please phone the Pain Management Center at with any questions or if the following or other troubling symptoms develop: 1) Prolonged dizziness or weakness (more than 1 day). 2) Localized swelling, redness or drainage at the injection site(s). 3) Temperature of 101 degrees that lasts for more than 4 hours. After 5 PM or on weekends, call and ask for Pain Clinic provider on-call. If you are unable to reach the Pain Management Center and have a complication, please call your Primary Care Provider or proceed to your local emergency department. Yana Leonardo LPN Special instructions Pain Management Center Post -Procedure Pain Log Patient: Isiah Medrano [id number] It is important for you to keep track of your pain after your procedure that took place 11/22/2017. This information will help your Provider to determine how to help reduce your pain. Today you had a procedure for pain in your Right Arm. Your pain level before the procedure in this area was 8/10. Your pain level immediately after your procedure was 4/10. Time Pain Score Comments 1 hour 2 hours 3 hours 4 hours Please call the nurse in the Pain Management Center a day or two after your procedure and report the information above. She will assess your response to the procedure, and will recommend appropriate follow-up. documented in this encounter Progress Notes * Yana Leonardo LPN - 11/22/2017 1:15 PM EDT Pre-Procedure Screening Questions: 1. Status: No 2. 3. Patient states they have a taxi driver to transport after procedure? Yes 4. Patient taking antibiotics at present? No 5. NPO per Pain Management Center protocol? No 6. 7. Patient diabetic: Yes __ borderline (not treated with medications) __x managed with oral medications _x_ managed with injected medications 8. Patient routinely taking anticoagulants ? No Date stopped Current INR Patient Vital Signs documented in Doc Flowsheets associated with this encounter. Patient Discharge Instructions were reviewed with patient and copy provided to patient. * Cleveland Torres MD - 11/22/2017 1:15 PM EDT PREPROCEDURE HISTORY AND PHYSICAL Date of Visit: November 22, 2017 Mr. Medrano presents for right ulnar nerve block Chief Complaint: Right arm pain HPI: Subjective Isiah Medrano is a 52 y.o. male who presents today for right ulnar nerve block with a diagnosis of No diagnosis found. with symptoms of right arm and hand pain. The history is obtained from the patient, and I have reviewed medical records provided by the referring physician and located in the electronic medical record to fill in gaps in the patient's recollection of events, treatments and outcomes. LOCATION: Right hand. PAIN LEVEL AT REST 8/10 PAST MEDICAL HISTORY: Past Medical History: Diagnosis Date ??? Diabetes mellitus There are no medical history contraindications to this procedure. PAST SURGICAL HISTORY: Past Surgical History: Procedure Laterality Date ??? CREATED BY INTERFACE cardiac stent to RCA 01/2008 Procedure Date: January 2008 ??? CREATED BY INTERFACE Hand operations x2 Procedure Date: Unknown ??? PRO APPLY LONG ARM SPLINT Right 01/20/2016 SPLINT APPLICATION, LONG ARM performed by Galdino Wood MD at [facility] OR ??? PRO REVISE ULNAR NERVE AT ELBOW Right 01/20/2016 NEUROPLASTY &/OR TRANSPOSITION, ULNAR NERVE AT ELBOW performed by Galdino Wood MD at [facility] OR ??? PRO REVISE ULNAR NERVE AT ELBOW Right 08/31/2016 NEUROPLASTY &/OR TRANSPOSITION, ULNAR NERVE AT ELBOW (WRVU 7.26) performed by Galdino Wood MD at [facility] OR ??? PRO TISSUE GRAFTS, OTHER (E.G. AUTOLOGOUS FAT GRAFT) Right 08/31/2016 TISSUE GRAFT, PARATENON, FAT, DERMIS (OTHER) (WRVU 5.79) performed by Galdino Wood MD at [facility] OR There are no past surgical contraindications to this procedure ALLERGIES: Eptifibatide and Amoxicillin There are no allergic contraindications to this procedure. MEDICATIONS: Medications 11/22/17 1325 Medication Sig Taking? CHOLECALCIFEROL, VITAMIN D3, (VITAMIN D3 ORAL) Take 1 tablet by mouth daily. Yes isosorbide mononitrate (IMDUR) 30 mg Tablet Sustained Release 24 hr Take 30 mg by mouth daily. Yes nitroGLYcerin (NITROSTAT) 0.4 mg Tablet, Sublingual Place 0.4 mg under the tongue every 5 minutes as needed for Chest pain. prn Yes insulin regular CONCENTRATE U-500 (HUMULIN R U-500) 500 unit/mL Solution Inject 100-150 Units subcutaneously 2 times daily. E.g. 0.2 ml looks like 20U on regular insulin syringe to make 100 units of insulin dosage Yes Insulin Syringe-Needle U-100 0.5 mL 31 gauge x 5/16 Syringe 1 each by [facility].(Non- Drug; Combo Route) route 2 times daily. Yes NALTREXONE HCL (NALTREXONE ORAL) Take 1 mg by mouth 4 times daily as needed. Yes DULoxetine (CYMBALTA) 60 mg Capsule, Delayed Release(E.C.) Take 60 mg by mouth daily. Yes pen needle, diabetic (NOVOFINE PLUS) 32 gauge x 1/6 Needle 1 each by Misc.(Non- Drug; Combo Route) route 4 times daily as needed. Yes traZODone (DESYREL) 50 mg Tablet Take 50-100 mg by mouth nightly. Yes allopurinol (ZYLOPRIM) 300 mg Tablet Take 300 mg by mouth daily. Yes aspirin 325 mg Tablet Take 325 mg by mouth daily. Yes gabapentin (NEURONTIN) 300 mg Capsule Take 1,200 mg by mouth every 4 hours. Yes lisinopril (PRINIVIL;ZESTRIL) 20 mg Tablet Take 20 mg by mouth daily. Yes magnesium oxide (MAG-OX) 400 mg Tablet Take 400 mg by mouth daily. Yes multivitamin (THERAGRAN) Tablet Take 1 tablet by mouth daily. Yes atorvastatin (LIPITOR) 40 mg Tablet Take 40 mg by mouth daily. Yes meTOPROLOL succinate (TOPROL-XL) 25 mg Tablet Sustained Release 24 hr Take 25 mg by mouth daily. Yes glimepiride (AMARYL) 4 mg Tablet Take 1 tablet by mouth 2 times daily. Yes Blood Sugar Diagnostic (ONE TOUCH ULTRA TEST) test strip 1 each by Other route 4 times daily. Use as instructed Yes Insulin [place], Disposable, (BD INSULIN PEN NEEDLE UF MINI) 31 x 3/16 Ndle by Other route. 1 box= 100 insulin PEN needles. Yes metFORMIN (GLUCOPHAGE) 500 mg tablet Take 1,000 mg by mouth 2 times daily (with meals). Yes Insulin Syringe-Needle U-100 (BD INSULIN SYRINGE ULT-FINE II) 1 mL 31 x 5/16 Syrg 1 each by Misc.(Non-Drug; Combo Route) route 2 times daily (before meals). Yes There are no medication contraindications to this procedure. FAMILY HISTORY: Family History Problem Relation Age of Onset ??? Diabetes Brother SOCIAL HISTORY: Social History Social History ??? Marital status: Spouse name: N/A ??? Number of children: N/A ??? Years of education: N/A Occupational History ??? Not on file. Social History Main Topics ??? Smoking status: Never Smoker ??? Smokeless tobacco: Former User Types: Chew Quit date: 01/09/1995 ??? Alcohol use No ??? Drug use: No ??? Sexual activity: Not on file Other Topics Concern ??? Not on file Social History Narrative There are no social history contraindications to this procedure. ROS: Review of Systems Constitutional: Negative for fever, chills, or recent infection. Respiratory: Negative for shortness of breath. Cardiovascular: Negative for chest pain. Musculoskeletal: Positive for sensitivity to touch in the fourth and fifth fingers right hand. Psychiatric/Behavioral: Negative for agitation and behavioral problems. PHYSICAL EXAM: BP 118/73 Pulse 78 Resp 16 Ht 172.7 cm (5' 8) Wt 99.8 kg (220 lb) SpO2 94% BMI 33.45 kg/m2 Physical Exam Constitutional: He appears well-developed and well-nourished. No distress. Cardiovascular: Normal heart rate. Pulmonary/Chest: Effort normal and breath sounds normal. Skin: He is not diaphoretic. This is no rash, apparent infection, or other abnormality to the area of the proposed injection. There are no physical examination findings which would preclude this procedure. ASSESSMENT: No diagnosis found. PLAN: Proceed with procedure as planned. Thank you for the opportunity to participate in Isiah Medrano's care. Please feel free to contact me with any questions. Sincerely, Cleveland Torres MD documented in this encounter Procedure Notes * Cleveland Torres MD - 11/22/2017 1:15 PM EDTAssociated Order(s): NERVE BLOCK - OTHER Procedure(s): NERVE BLOCK - OTHER Pre-Procedure Diagnose(s): Ulnar neuropathy of right upper extremity Ultrasound Guided right above the elbow ulnar nerve block injection Date of Service: 11/22/2017 Patient: sIiah Medrano Provider: Cleveland Torres MD Pre-Procedural Evaluation: Isiah Medrano has been referred to the Pain Management Center for an Ultrasound Guided right ulnar nerve arm and hand pain injection for a chief complaint of right arm pain. Pre-procedure Pain Score: 8/10 Mr. Medrano was interviewed and the medical record reviewed. There were no medical, pharmacologic, radiographic or other structural contraindications to performing an ultrasound guided injection. Risks and expected side effects as well as potential benefit of the procedure were reviewed with Isiah Medrano. The printed consent form was signed and witnessed. Standard time-out procedure was performedand documented. The use of direct ultrasound visualization of the needle (rather than a non- guided injection) was required to increase patient safety by excluding inadvertent intramuscular, intratendinous, or intraneural needle placement and minimizing bleeding by avoiding osteochondral or vascular injury from theneedle. Additionally, the increased accuracy of placement may increase clinical effectiveness and will allow higher diagnostic specificity when evaluating effectiveness of this injection. Procedure Description: The patient was placed in the lateral position and automated blood pressure cuff and pulse oximeterapplied for monitoring during the procedure and recorded in the medical record. Pre-injection ultrasound scanning of the area of interest was performed using High Frequency Ojmkwd30-9 MHz transducer, identifying relevant anatomy, landmarks, and neurovascular structures allowingfor optimal needle path. The site was then prepared in the usual sterile fashion, using thorough Chl orhexadine preparation of the skin and sterile draping. The same ultrasound transducer was then passed into the sterile field using sterile probe cover and sterile ultrasound gel. The injection target was again visualized. Skin and subcutaneous tissues were anesthetized with 1 mL of 1% Lidocaine. A 22 guage needle x 2 inch needle was placed under live ultrasound guidance, using an in-plane approach, to the target area.After visualization of the needle tip at the target area, of 4 mL 0.5% Bupivacaine injectate was delivered after negative aspiration for blood. Ultrasound images were captured and stored for documenta tion purposes. Post-procedure Pain Score: 4/10 Mr. Medrano's vital signs were stable throughout the procedure and were as recorded in the docflowsheet by the nursing staff. Follow up plans and appointments were discussed with the patient Post procedure instruction was given as documented in nursing documentation and having met discharge criteria, they were discharged from the Pain Management Center. COMMENTS: Patient will f/u for peripheral stimulator with Dr. Wood and myself. CC: CADY Hernandez documented in this encounter Plan of Treatment Upcoming Encounters Date Type Department Care Team (Late st Contact Info) Description 08/18/2024 10:30 AM EST Office [place] [address] Rodrigo Conteh MD [facility] [place] [address] documented as of this encounter Procedures Procedure Name Priority Date/Time Associated Diagnosis Comments NERVE BLOCK - OTHER Routine 11/22/2017 3 :25 PM EDT Ulnar neuropathy of right upper extremity documented in this encounter Results * NERVE BLOCK - OTHER (11/22/2017 3:25 PM EDT) Narrative Cleveland Torres MD - 11/22/2017 3:25 PM EDT Cleveland Torres MD ? 11/22/2017 ??3:25 PM Ultrasound Guided right above the elbow ulnar nerve block injection Date of Service: 11/22/2017 Patient: ?Isiah Medrano ?? Provider: ?Cleveland Torres MD Pre-Procedural Evaluation: Isiah Medrano has been referred to the Pain Management Center for an Ultrasound Guided right ulnar nerve arm and hand pain injection for a chief complaint of right arm pain. Pre-procedure Pain Score: 8/10 Mr. Medrano was interviewed and the medical record reviewed. ?? There were no medical, pharmacologic, radiographic or other structural contraindications to performing an ultrasound guided injection. ??Risks and expected side effects as well as potential benefit of the procedure were reviewed with Isiah Medrano. The printed consent form was signed and witnessed. ??Standard time-out procedure was performed and documented. The use of direct ultrasound visualization of the needle (rather than a non-guided injection) was required to increase patient safety by excluding inadvertent intramuscular, intratendinous, or intraneural needle placement and minimizing bleeding by avoiding osteochondral or vascular injury from the needle. ??Additionally, the increased accuracy of placement may increase clinical effectiveness and will allow higher diagnostic specificity when evaluating effectiveness of this injection. Procedure Description: The patient was placed in the lateral position and automated blood pressure cuff and pulse oximeter applied for monitoring during the procedure and recorded in the medical record. Pre-injection ultrasound scanning of the area of interest was performed using High Frequency Linear 18-6 MHz transducer, identifying relevant anatomy, landmarks, and neurovascular structures allowing for optimal needle path. The site was then prepared in the usual sterile fashion, using ??thorough Chlorhexadine preparation of the skin and sterile draping. The same ultrasound transducer was then passed into the sterile field using sterile probe cover and sterile ultrasound gel. The injection target was again visualized. Skin and subcutaneous tissues were anesthetized with 1 mL of 1% Lidocaine. A 22 guage needle x 2 inch needle was placed under live ultrasound guidance, using an in-plane ??approach, to the target area. After visualization of the needle tip at the target area, of 4 mL 0.5% Bupivacaine injectate was delivered after negative aspiration for blood. Ultrasound images were captured and stored for documentation purposes. Post-procedure Pain Score: 4/10 Mr. Medrano's vital signs were stable throughout the procedure and were as recorded in the docflowsheet by the nursing staff. Follow up plans and appointments were discussed with the patient ?? Post procedure instruction was given as documented in nursing documentation and having met discharge criteria, they were discharged from the Pain Management Center. COMMENTS: Patient will f/u for peripheral stimulator with Dr. Wood and myself. CC: CADY Hernandez Cleveland Torres MD PROCEDURE/MINOR SURG ICAL ORDERABLES documented in this encounter Visit Diagnoses Diagnosis [...] MAR Action Action Date Dose Rate Site BUpivacaine (PF) (MARCAINE) 0.5 % (5 mg/mL) injection 50 mg 50 mg, Subcutaneous, ONCE, 1 dose, On Sat11/22/17 at 1430, Wasted 20 mL, Routine Given 11/22/2017 2:30 PM EDT 50 mg documented in this encounter Care Teams Telephone Switchboard Operator Relationship Specialty Start Date End Date Sravani Salas APRN [address] [place] [address] PCP - General Family Medicine 01/15/17 documented as of this encounter
--- OUTSIDE RECORDS SUMMARY | 2024-08-14 01:24 | XMS_ITS | Encounter Summary ---
[facility] Organization [facility] [place] [address] Care Team Providers Care Liquid Center Assembler Name Role Phone Josue Sravani H CADY Primary Care Provider [phone] Reason for Visit * Auth/Cert Specialty Diagnoses / Procedures Referred By Contvianey t Referred To Contact Diagnoses Ulnar Nerve Neuralgia Procedures PRO PERCUT IMPLANT, NEUROELEC, PERIPH NERVE GENERATOR, NEUROSTIMULATOR (IMPLANTABLE) PATIENT COMMUNITY HEALTH EDUCATION COORDINATOR, NEUROSTIMULATOR GENERATOR,NEUROSTIMULATOR W RECHARGE JOEL AND SYSTEM 1 Referral ID Status Reason Start Date Expiration Date Visits Re quested Visits Authorized [id number] 1 1 Encounter Details Date Type Department Care Team (Late st Contact Info) Description 07/11/2018 3:39 PM EST Anesthesia [place] [address] Suzanne Spears MD [facility] DR [place] [address] Ramos Gilbert CRNA [facility] [place] [address] Anesthesia Record Procedure Summary Procedure Name Responsible Anesthesiologist Anesthesia Start Time Anesthesia Stop Time IMPLANT NEUROSTIMULATOR ELECTRODES, PERIPHERAL NERVE (WRVU 5.76) Suzanne Spears MD 07/11/18 1539 07/11/18 1727 Events Date Time Event Comment 07/11/2018 1450 1539 AN Verify 1539 Start 1540 An Start Data 1559 An Induction 1601 An Intubation 1602 Anesthesia Ready 1616 An Tourn Inflated Right uppe r arm 1616 Procedure Start 1651 An Tourn Deflated 1716 Extubation/LMA Out 1720 an stop data 1727 Recovery or ICU Handoff Magaly ent care was transferred to the destination unit staff after review of the patient's medical history, current anesthetic/surgical status and plan, according to the Provider Handoff Checklist. 1727 Stop Meds Name Total Midazolam 2 mg fentaNYL 100 mcg Propofol 200 mg Propofol INF 176.52 mg Ondansetron 4 mg ePHEDrine 10 mg PHENYLephrine 960 mcg clindamycin (CLEOCIN) 600mg in dextrose 5% 50mL 600 mg PHENYLephrine INF 2,025 mcg lactated Ringers infusion 1,000 mL 800 m L * Agents Name O2 Air N2O Sevoflurane (et) O2 Auxiliary Flowmeter 1 * Blood No blood administrations on file. Lines, Drains, and Airways Type Details Placement Removal Incision 01/20/16; arm; 04/30 (LDA cleanup utility RA#[id number]); 1715 (LDA cleanup utility RA#[id number]) 01/20/16 0000 by Lizzie Jones RN 04/30/22 1715 by Criselda Sofia (RETIRED) Peripheral IV Line - Single Lumen 07/11/18; 1506; metacarpal vein (top of hand), left; gbau-hyf-hqazji catheter system; 22 gauge, 1 in length; intradermal injection, tolerated well; 1; basilic vein (medial side of arm), left; 07/11/18; 1849 07/11/18 1506 by Deyanira Camarillo RN 07/11/18 1849 by Baldomero Rowe RN Supraglottic LMA Type: iGel; LMA Size: 4; Inserted by: amanda; Removal Date: 07/11/18; Removal Time: 17107/11/18 1601 by Ramos Gilbert STEEL PLATE PRINTER 07/11/18 1716 by Ramos Gilbert STEEL PLATE PRINTER Incision 07/11/18; 1618; arm; 04/30/22 (LDA cleanup utility RA#[id number]); 1715 (LDA cleanup utility RA#[id number]) 07/11/18 1618 by Lizzie Jones RN 04/30/22 1715 by Sofia, Dierdre L documented in this encounter Social History Tobacco [...] OR Notes * Anesthesia Postprocedure Evaluation - Suzanne Spears MD - 07/11/2018 6:04 PM EST [facility] Department of Anesthesiology Post-procedure Note Patient: Isiah Medrano Procedure Summary Date: 07/11/18 Room / Location: [facility] OR [facility] MAIN OR Anesthesia Start: 153 Anesthesia Stop: 1726 Procedure: IMPLANT NEUROSTIMULATOR ELECTRODES, PERIPHERAL NERVE (WRVU 2.32) (N/A ) Diagnosis: ( Ulnar Nerve Neuralgia) Surgeon: Galdino Wood MD Responsible Provider: Suzanne Spears MD Anesthesia Type: MAC ASA Status: 3 All Anesthesia Providers: Anesthesiologist: Suzanne Spears MD; Godfrey Turner MD [employer] PRINTER: Ramos Gilbert CRNA Most Recent Vitals: 07/11/18 1725 BP: 100/81 Pulse: 86 Resp: 16 Temp: 37 ??C (98.6 ??F) SpO2: 96% Pain 6 (07/11/18 1756) Patient Location: PACU/[facility] Level of Consciousness: Awake and Alert Pain Management: Satisfactory Analgesia PONV: None Cardiovascular Status: At Baseline and Hemodynamically Stable Respiratory Status: Stable Respiratory Status and Supplemental O2 (NC or FM) Postoperative Fluid Status: Intravascular EUvolemia Possible Anesthetic Complications: NONE apparent at time of evaluation Final Primary Anesthesia Type: General (The anesthetic type performed was the same as planned.) Comments: RN to check blood glucose. Patient feels well, offers no complaints. * Anesthesia Preprocedure Evaluation - Ramos Gilbert CRNA - 07/10/2018 8:12 PM EST Images from the original note were not included. Pre-Anesthesia Evaluation for: Isiah Medrano a 53 y.o. male. Procedure(s): IMPLANT NEUROSTIMULATOR ELECTRODES, PERIPHERAL NERVE (VU 2.32) Patient Active Problem List Diagnosis ??? Pain of right upper extremity ??? Surgical followup ??? Ulnar neuropathy of right upper extremity ??? CIS - Acute non-ST segment elevation myocardial infarction s/p NSTEMI with stent to RCA 01/2008 and thrombectomy to t.o. RPL1 -peak troponin 0.09 -EF by cath 65% ??? CIS - Depression ??? CIS - Essential hypertension ??? CIS - Gout ??? CIS - Diabetes mellitus type II Lab: A1c 6.5% (12/22/08) <- 6% (09/10) <-5.7% (05/10) <- 6.6% (03/09) <- 7.5% (02/07) <- 8.7% (01/07) TSH (02/26/08) = 2.01 Lipids (03/17/08): TC 114, HDL 31 (previous lab on 01/23/08:TC 189, LDL 111, HDL 33, TG 329) Bun/Cr (03/17/08)= 9.0/0.9, Ca 9.0, K 4.1, normal LFT, Hct 43.5% ??? CIS - Hyperlipidemia Past Medical History: Diagnosis Date ??? Diabetes mellitus Past Surgical History: Procedure Laterality Date ??? CREATED BY INTERFACE cardiac stent to RCA 01/2008 Procedure Date: January 2008 ??? CREATED BY INTERFACE Hand operations x2 Procedure Date: Unknown ??? PRO APPLY LONG ARM SPLINT Right 01/20/2016 SPLINT APPLICATION, LONG ARM performed by Galdino Wood MD at [facility] MAIN OR ??? PRO REVISE ULNAR NERVE AT ELBOW Right 01/20/2016 NEUROPLASTY &/OR TRANSPOSITION, ULNAR NERVE AT ELBOW performed by Galdino Wood MD at [facility] MAIN OR ??? PRO REVISE ULNAR NERVE AT ELBOW Right 08/31/2016 NEUROPLASTY &/OR TRANSPOSITION, ULNAR NERVE AT ELBOW (VU 7.26) performed by Galdino Wood MD at [facility] MAIN OR ??? PRO TISSUE GRAFTS, OTHER (E.G. AUTOLOGOUS FAT GRAFT) Right 08/31/2016 TISSUE GRAFT, PARATENON, FAT, DERMIS (OTHER) (WRVU 5.79) performed by Galdino Wood MD at [facility] MAIN OR Social History Tobacco Use ??? Smoking status: Never Smoker ??? Smokeless tobacco: Former User Types: Chew Substance Use Topics ??? Alcohol use: No Social History Substance and Sexual Activity Drug Use No Allergies Allergen Reactions ??? Eptifibatide Other (See Comments) thrombocytopenia ??? Amoxicillin Other (See Comments) Unknown Medications: MAR and/or home medications have been reviewed. Physical Exam: There were no vitals filed for this visit. There is no height or weight on file to calculate BMI. Airway Assessment: Mallampati: II TM distance: >3 FB Neck ROM: full Cardiovascular Assessment: Rhythm: regular Rate: normal Pulmonary Assessment: breath sounds clear to auscultation Dental Assessment: Misc Assessment: Patient is wearing No contact(s). IV access: Peripheral line Anesthesia Plan: ASA 3 MAC, with a(n) intravenous induction 53 y/o 105 kg M with ulnar neuropathy s/p injury and nerve release/transposition in 2015 for peripheral nerve stimulator implant. Hx of type 2 diabetes (insulin dependent). HTN (metoprolol, SHARYN-I), gout, and hyperlipidemia. H/o NSTEMI in 2007. Prior iGel 4. Plan MAC Region - Other Informed Consent: Anesthetic plan and risks discussed with patient and spouse. Use of blood products discussed with patient and spouse who consented to blood products. Plan discussed with STEEL PLATE PRINTER. PAT Staff Note Attending Assessment: Patient personally seen and examined. Good functional status - no exertional chest pain or SOB in > 6 mo. Stable imdur regimen. No GERD. Glu usu 150-170, symptomatic at 60. Took 1/2 dose insulin this am. Following discussion of benefits, indications, and risks (including but not limited to sore throat, dental injury, prolonged intubation, cardiac or neurologic event), plan MAC vs GA LMA, standard ASA monitors, PIV. Suzanne Spears MD documented in this encounter Plan of Treatment Upcoming Encounters Date Type Department Care Team (Late st Contact Info) Description 08/18/2024 10:30 AM EST Office Visit [place] [address] Rodrigo Conteh MD [facility] [place] [address] documented as of this encounter Visit Diagnoses Not on filedocumented in this encounter Administered Medications Inactive Administered Medications - up to 3 most recent administrations Medication Order MAR Action Action Date Dose Rate Site clindamycin (CLEOCIN) 600mg in dextrose 5% 50mL 600 mg, Intravenous, ONCE, 1 dose, On Sat07/11/18 at 1515, Administer over 20 Minutes, Indication for (Active or Suspected): Prophylaxis Given 07/11/2018 4:02 PM EST 600 mg ePHEDrine 5 mg/mL multi-dose injection Intravenous, PRN, Starting on Sat07/11/18 at 1653, Until Sat07/11/18 at 1729, Anesthesia Intra-op, Routine Given 07/11/2018 4:56 PM EST 5 mg Given 07/11/2018 4:53 PM EST 5 mg fentaNYL 50 mcg/mL multi-dose injection PRN, Starting on Sat07/11/18 at 1559, Until Sat07/11/18 at 1729, Anesthesia Intra-op, Routine Given 07/11/2018 3:59 PM EST 100 mcg midazolam (PF) (VERSED) multi-dose injection PRN, Starting on Sat07/11/18 at 1539, Until Sat07/11/18 at 1729, Anesthesia Intra-op, Routine Given 07/11/2018 3:39 PM EST 2 mg ondansetron (ZOFRAN) injection Intravenous, PRN, Starting on Sat07/11/18 at 1613, Until Sat07/11/18 at 1729, Anesthesia Intra-op, Routine Given 07/11/2018 4:13 PM EST 4 mg PHENYLephrine (VARINDER-SYNEPHRINE) 20 mg in sodium chloride 250 mL (standard ADULT & Pedi greater than 20kg) infusion CONTINUOUS PRN, Starting on Sat07/11/18 at 1637, Until Sat07/11/18 at 1729, Anesthesia Intra-op, Routine Rate/Dose Change 07/11/2018 5:00 PM EST 50 mcg/min 37.5 mL/hr Rate/Dose Change 07/11/2018 4:52 PM EST 100 mcg/min 75 mL/ hr Rate/Dose Change 07/11/2018 4:47 PM EST 75 mcg/min 56.3 mL /hr PHENYLephrine in NS (PF) (VARINDER-SYNEPHRINE) 0.8 mg/10 mL (80 mcg/mL) multi-dose injection Syrg Intravenous, PRN, Starting on Sat07/11/18 at 1609, Until Sat07/11/18 at 1729, Anesthesia Intra-op, Routine Given 07/11/2018 4:41 PM EST 80 mcg Given 07/11/2018 4:37 PM EST 80 mcg Given 07/11/2018 4:33 PM EST 80 mcg propofol (DIPRIVAN) 10 mg/mL bolus injection (Anesthesia) Intravenous, PRN, Starting on Sat07/11/18 at 1559, Until Sat07/11/18 at 1729, Anesthesia Intra-op Given 07/11/2018 3:59 PM EST 200 mg propofol (DIPRIVAN) infusion Intravenous, CONTINUOUS PRN, Starting on Sat07/11/18 at 1607, Until Sat07/11/18 at 1729, Anesthesia Intra-op, Routine Rate/Dose Change 07/11/2018 4:26 PM EST 30 mcg/kg/min 19 mL/hr New Bag 07/11/2018 4:07 PM EST 50 mcg/kg/min 31.7 mL/hr documented in this encounter Care Teams Liquid Center Assembler Relationship Specialty Start Date End Date Sravani Salas APRN [address] [place] [address] PCP - General Family Medicine 01/15/17 documented as of this encounter
--- OUTSIDE RECORDS SUMMARY | 2024-08-14 01:24 | XMS_ITS | Encounter Summary ---
Author Organization [facility] [place] [address] Care Team Providers Care Research Pharmacist Name Role Phone Sravani Salas APRN Primary Care Provider [phone] Reason for Referral * Psychiatric (Routine) - Closed Specialty Diagnoses / Procedures Referred By Contvianey t Referred To Contact Psychiatry Diagnoses Ulnar neuropathy of right upper extremity Chey Torres MD [facility] [place] [address] Zahida Ocampo, PhD [facility] [place] [address] Referral ID Status Reason Start Date Expiration Date V isits Requested Visits Authorized [id number] Closed Specialty Service Requested 12/31/2018 12/31/2019 1 1 * Diagnostic Test (Routine) - Specialty Diagnoses / Procedures Referred By Contac t Referred To Contact Radiology Diagnoses Ulnar neuropathy of right upper extremity Procedures MRI Cervical Spine wo Contrast (Generic) Chey Torres MD [facility] [place] [address] [place] [address] Referral ID Status Reason Start Date Expiration Date Visits Requested Visits Authorized [id number] Specialty Service Requested 12/31/2018 12/31/2019 1 1 * Diagnostic Test (Routine) - Closed Specialty Diagnoses / Procedures Referred By Contac t Referred To Contact Radiology Diagnoses Ulnar neuropathy of right upper extremity Procedures MRI Thoracic Spine wo Contrast (Generic) Chey Torres MD [facility] [place] [address] [place] [address] Referral ID Status Reason Start Date Expiration Date V isits Requested Visits Authorized [id number] Closed Specialty Service Requested 03/12/2019 05/10/2019 1 1 Reason for Visit * Reason Comments Pain Management Encounter Details Date Type Department Care Team (Late st Contact Info) Description 12/31/2018 2:30 PM EDT Office [place] [address] [facility] [place] [address] Ulnar neuropathy of right upper extremity (Primary [...] Sign Reading Time Taken Comments Blood Pressure 119/71 12/31/2018 2:23 PM EDT Pulse 91 12/31/2018 2:23 PM EDT Temperature - - Respiratory Rate - - Oxygen Saturation 98% 12/31/2018 2:23 PM EDT Inhaled Oxygen Concentration - - Weight 102.1 kg (225 lb) 12/31/2018 2:23 PM EDT Height - - Body Mass Index 36.32 12/26/2018 3:31 PM EDT documented in this encounter Patient Instructions * Patient Instructions* Chey Torres MD - 12/31/2018 2:30 PM EDT [employer] . Employee SS# Occupation Isiah Medrano [id number] Employer Name and Address [address] [address] Date last worked Work Telephone # No relevant phone numbers on file. [employer] PMA Employer contact [employer] [x] Initial visit [] Follow-up visit Date of injury 01/10/2015 Time Worker???s statement of the incident Banged elbow/slipped Worker???s Complaints Right upper extremity pain Diagnosis/Prognosis ulnar neuritis Treatment plan medications, will obtain thoracic and cervical MRI and psychological evaluation in anticipation of spinal cord stimulator trial In your opinion is this injury and disability a result of injury described above [x] Yes [] No [] Unclear EMPLOYEE WORK CAPABILIT defer to PCP or occupational medicine [] Full Duty [] With Modification. If so, for what duration? Employee can NoRestriction Frequently Occasionally Unable to Employee can lift/carry maximally lbs Employee can lift/carry frequently lbs Bend [] [] [] [] Kneel [] [] [] [] Employee can work a maximum of Squat [] [] [] [] # ___ hours/day, # ___ days/wk Climb [] [] [] [] Stand [] [] [] [] Other: Walk [] [] [] [] Sit [] [] [] [] Is employee at maximum medical Improvement? Reach [] [] [] [] [] Yes [] No Drive [] [] [] [] Do FineMotor [] [] [] [] Has injury caused permanent impairment? [] Yes [] No [] Undetermined No Repetitive Movement Wrist Elbow Shoulder Ankle Right [] [] [] [] Left [] [] [] [] ALL MEDICAL NOTES MUST BE ATTACHED TO BILL I certify that the narrative descriptions of the principal and secondary diagnosis and the major procedures preformed are accurate and complete to the best of my knowledge. Provider???s Signature: DR CHEY TORRES Provider???s Federal ID# [id number] Next Appt MEDICAL AUTHORIZATION: The act of the worker in applying for workers??? compensation benefits constitutes authorization to any physician, hospital, chiropractor, or other medical vendor to supply allrelevant medical information regarding the worker???s occupational injury or illness to the insurer, the worker???s employer, the worker???s claim representative, and the department. Medical information relevant to a claim includes a past history of complaints of, or treatment of a condition similar to that presented in the claim. [[id number] V([id number] documented in this encounter Progress Notes * Chey Torres MD - 12/31/2018 2:30 PM EDT [facility] [place] [address] Phone: PAIN MANAGEMENT FOLLOW UP DATE OF VISIT 12/31/2018 Patient Isiah Medrano 1965 REFERRING PROVIDER Sravani Salas APRN [address] [place] [address] PRIMARY CARE PROVIDER Sravani Salas APRN CHIEF COMPLAINT: Right upper extremity pain. HPI Isiah Medrano is a 53 y.o. male with right ulnar neuropathy. He had a peripheral nerve stimulator placed in July 2018. He has had it reprogrammed several times. Unfortunately it is not helping infact he thinks it makes it worse. He was told by the company claim representative to turn it off and not use it. He is using a combination of gabapentin, low-dose naltrexone, and duloxetine for pain control. OPIOID RISK TOOL Score each Score Score box Female Male 1. Family History of Substance Abuse Alcohol [-] 1 3 Illegal Drugs [-] 2 3 Prescription Drugs [-] 4 4 2. Personal History of Substance Abuse Alcohol [-] 3 3 Illegal Drugs [-] 4 4 Prescription Drugs [-] 5 5 3. Age (Jayy box if 16-45) [-] 1 1 4. History of Preadolescent Sexual Abuse [-] 3 0 5. Psychological Disease [-] 2 2 (Attention Deficit Disorder, Obsessive Compulsive Disorder, Bipolar, Schizophrenia) Depression [-] 1 1 TOTAL 0 Total Score Risk Category: 0-3 = Low Risk 4-7 = Moderate Risk > 8 = High Risk ADVERSE DRUG REACTIONS Allergies as of 12/31/2018 - Review Complete 12/31/2018 Allergen Reaction Noted ??? Eptifibatide Other (See Comments) ??? Amoxicillin Other (See Comments) 02/07/2017 MEDICATIONS Medications 12/31/18 1423 Medication Sig Taking? metFORMIN (GLUCOPHAGE XR) 500 mg Tablet Sustained Release 24 hr Take 2 tablets by mouth 2 times daily. Yes flash glucose scanning reader (FREESTYLE NEAL 14 DAY READER) Misc As instructed Yes flash glucose sensor (FREESTYLE NEAL 14 DAY SENSOR) Kit q14 days as instructed Yes insulin regular CONCENTRATE U-500 (HUMULIN R U-500) 500 unit/mL Solution Inject 150-175 Units subcutaneously 2 times daily. May adjust the dose up to 25 units until fasting BG at target of 90-180. Yes insulin U-500 syringe-needle 1/2 mL 31 gauge x 15/64 Syringe 1 each by [facility]Non-Drug; Combo Route) route 2 times daily. THIS IS AN INSULIN SYRINGE SPECIFICALLY FOR U-500 DOSING Yes Ibuprofen 200 mg Capsule Take 400 mg by mouth 3 times daily. Yes CHOLECALCIFEROL, VITAMIN D3, (VITAMIN D3 ORAL) Take 1 tablet by mouth daily. Yes isosorbide mononitrate (IMDUR) 30 mg Tablet Sustained Release 24 hr Take 30 mg by mouth daily. Yes nitroGLYcerin (NITROSTAT) 0.4 mg Tablet, Sublingual Place 0.4 mg under the tongue every 5 minutes as needed for Chest pain. prn Yes Insulin Syringe-Needle U-100 0.5 mL 31 gauge x 5/16 Syringe 1 each by [facility]Non- Drug; Combo Route) route 2 times daily. Yes NALTREXONE HCL (NALTREXONE ORAL) Take 4.5 mg by mouth daily. Indications: pt takes 4.5 mg daily Yes DULoxetine (CYMBALTA) 60 mg Capsule, Delayed Release(E.C.) Take 60 mg by mouth daily. Yes pen needle, diabetic (NOVOFINE PLUS) 32 gauge x 1/6 Needle 1 each by [facility].(Non- Drug; Combo Route) route 4 times daily as needed. Yes traZODone (DESYREL) 50 mg Tablet Take 50-100 mg by mouth nightly. Yes allopurinol (ZYLOPRIM) 300 mg Tablet Take 300 mg by mouth daily. Yes aspirin 325 mg Tablet Take 325 mg by mouth daily. Yes gabapentin (NEURONTIN) 300 mg Capsule Take 3,600 mg by mouth daily. Yes lisinopril (PRINIVIL;ZESTRIL) 20 mg Tablet Take 40 mg by mouth daily. Yes magnesium oxide (MAG-OX) 400 mg Tablet Take 400 mg by mouth daily. Yes multivitamin (THERAGRAN) Tablet Take 1 tablet by mouth daily. Yes atorvastatin (LIPITOR) 40 mg Tablet Take 40 mg by mouth daily. Yes meTOPROLOL succinate (TOPROL-XL) 25 mg Tablet Sustained Release 24 hr Take 50 mg by mouth daily. Yes glimepiride (AMARYL) 4 mg Tablet Take 1 tablet by mouth 2 times daily. Yes Blood Sugar Diagnostic (ONE TOUCH ULTRA TEST) test strip 1 each by Other route 4 times daily. Use as instructed Yes Insulin [place], Disposable, (BD INSULIN PEN NEEDLE UF MINI) 31 x 3/16 Ndle by Other route. 1 box= 100 insulin PEN needles. Yes Insulin Syringe-Needle U-100 (BD INSULIN SYRINGE ULT-FINE II) 1 mL 31 x 5/16 Syrg 1 each by Misc.(Non-Drug; Combo Route) route 2 times daily (before meals). Yes PHYSICAL EXAMINATION Most Recent Vitals: 12/31/18 1423 BP: 119/71 Pulse: 91 SpO2: 98% PainSc: 7 Body mass index is 36.32 kg/m??. BP 119/71 Pulse 91 Wt 102.1 kg (225 lb) No flowsheet data found. Patient makes good eye contact communicates easily. He is neurologically grossly intact. 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 Recommendations: #1 Medications: Possibly low-dose tramadol would be useful on as-needed basis. He is at low risk for aberrant opioid use. We did discuss that typically these are not helpful in the long time secondary to tolerance and dependence. #2 Procedures: I think he would be a reasonable candidate at this point to consider a spinal cord stimulator. I reviewed with him the process of trial and implant. I have given him literature to cece to review and showed him a model of the device. #3 Imaging: We will obtain MRI of his cervical and thoracic spine in anticipation of spinal cord stimulator trial. #4 Referrals: Referral to behavioral medicine for evaluation for stimulator implant. #5 Behavioral Medicine: As above #6 Physical Medicine: None at this time #7 Education: As above I spent 20 of 25 minutes in [id number] discussion regarding plan of care with the patient. Isiah Medrano had the opportunity to ask questions and indicated that all questions were answered to their satisfaction. documented in this encounter Plan of Treatment Upcoming Encounters Date Type Department Care Team (Late st Contact Info) Description 08/18/2024 10:30 AM EST Office [place] [address] [facility] [place] [address] Scheduled Referrals Name Type Priority Associated Diagnoses Order Schedule Referral to Behavioral Health Outpatient Referral Routine Ulnar neuropathy of right upper extremity Ordered: 12/31/2018 documented as of this encounter Results * (ABNORMAL) MRI Cervical Spine wo Contrast (Generic) (03/17/2019 4:35 PM EDT) Anatomical Region Laterality Modality C-spine Magnetic Resonan ce Impressions 03/17/2019 5:22 PM EDT 1. ??Thoracic spinal canal narrowing is mild at its worst. 2. ??Moderate cervical spinal canal narrowing at C4-C5 and C6-C7 because of posterior disc osteophyte complexes. 3. ??Recommend renal ultrasound to more fully evaluate the right renal exophytic lesion that probably represents a cyst. Unexpected finding. Thank you for letting us participate in the care of this patient. For questions regarding this report, please contact the number below. ? Narrative 03/17/2019 5:22 PM EDT EXAMINATION: MRI CERVICAL SPINE WO CONTRAST (GENERIC), MRI THORACIC SPINE WO CONTRAST (GENERIC) CLINICAL HISTORY: spinal cord stimulator trial TECHNIQUE: MRI of the cervical spine and thoracic performed without intravenous contrast administration. COMPARISON: None FINDINGS: Cervical spine: Mild degrees of disc space narrowing. Alignment is near anatomic. There are posterior disc osteophyte complex at the C3-C7 levels resulting in mild to moderate degrees of canal narrowing. Specifically, there is moderate spinal canal narrowing at C4-C5 and C6-C7. The cervical cord is of normal size and signal intensity. Thoracic spine: Alignment is near-anatomic. Mild to moderate disc degenerative changes at T6-T9. Small left paracentral disc extrusion with cranial migration at T6-T7 resulting in mild spinal canal narrowing. Conus terminates just below the T12-L1 interspace. No aggressive marrow lesions. There is an incompletely evaluated exophytic right renal T2 hyperintensity measuring 4.4 cm. Resulting Agency Comment Unexpected Finding Chey Torres MD [facility] MRI ORDERABLES * (ABNORMAL) MRI Thoracic Spine wo Contrast (Generic) (03/17/2019 4:35 PM EDT) Anatomical Region Laterality Modality T-spine Magnetic Resonan ce Impressions 03/17/2019 5:22 PM EDT 1. ??Thoracic spinal canal narrowing is mild at its worst. 2. ??Moderate cervical spinal canal narrowing at C4-C5 and C6-C7 because of posterior disc osteophyte complexes. 3. ??Recommend renal ultrasound to more fully evaluate the right renal exophytic lesion that probably represents a cyst. Unexpected finding. Thank you for letting us participate in the care of this patient. For questions regarding this report, please contact the number below. ? Narrative 03/17/2019 5:22 PM EDT EXAMINATION: MRI CERVICAL SPINE WO CONTRAST (GENERIC), MRI THORACIC SPINE WO CONTRAST (GENERIC) CLINICAL HISTORY: spinal cord stimulator trial TECHNIQUE: MRI of the cervical spine and thoracic performed without intravenous contrast administration. COMPARISON: None FINDINGS: Cervical spine: Mild degrees of disc space narrowing. Alignment is near anatomic. There are posterior disc osteophyte complex at the C3-C7 levels resulting in mild to moderate degrees of canal narrowing. Specifically, there is moderate spinal canal narrowing at C4-C5 and C6-C7. The cervical cord is of normal size and signal intensity. Thoracic spine: Alignment is near-anatomic. Mild to moderate disc degenerative changes at T6-T9. Small left paracentral disc extrusion with cranial migration at T6-T7 resulting in mild spinal canal narrowing. Conus terminates just below the T12-L1 interspace. No aggressive marrow lesions. There is an incompletely evaluated exophytic right renal T2 hyperintensity measuring 4.4 cm. Chey Torres MD [facility] MRI ORDERABLES documented in this encounter Visit Diagnoses Diagnosis Ulnar neuropathy of right upper extremity- Primary Lesion of ulnar nerve Ulnar neuropathy of right upper extremity Lesion of ulnar nerve Type 2 diabetes mellitus with hyperglycemia, with long-term current use of insulin Vitamin D insufficiency Unspecified vitamin D deficiency Dyslipidemia Other and unspecified hyperlipidemia documented in this encounter Care Teams Research Pharmacist Relationship Specialty Start Date End Date Sravani Salas APRN [address] [place] [address] PCP - General Family Medicine 01/15/17 documented as of this encounter
--- OUTSIDE RECORDS SUMMARY | 2024-08-14 01:24 | XMS_ITS | Encounter Summary ---
[place] [address] Care Team Providers Care Client Services Representative Name Role Phone Sravani Salas APRN Primary Care Provider [phone] Reason for Visit * Reason Onset Date Comments Pre Procedure Call 11/21/2017 2nd Attempt Encounter Details Date Type Department Care Team (Late st Contact Info) Description 11/21/2017 Telephone [place] [phone] Vaishali Coleman LNA Pre Procedure Call (2nd Attempt) Social History Tobacco Use Types Packs/Day Years [...] encounter Miscellaneous Notes * Telephone Encounter - Vaishali Coleman LNA - 11/21/2017 9:02 AM EDT Isiah Medrano :1965 Contact made with patient: I spoke to Mr. Medrano at 9:02 AM regarding his upcoming Ultrasound Guided Ulnar Nerve Block scheduled on 11/22/2017 at 1:15PM with Dr. Cleveland Torres MD. Medication and Allergy reconciliation: 1. Changes were made in the telephone encounter per patient; marked as reviewed, and closed. 2. Patient confirmed no IVP dye allergy. 3. Have you had any steroid injections anywhere in your body within the last two weeks? no Arrival time: The patient was instructed to arrive at 12:45PM on 11/22/2017. Oxygraph Operator: The patient was reminded that they need to have a regional refrigerated cdl truck driver accompany them to his procedure who will remain onsite. Antibiotics/Skin assessment/Illness symptoms/Pain level assessment : 1. The patient confirmed that he is not taking antibiotics at this time. 2. The patient confirmed that he does not have any rashes, blisters, or skin breakdown on their body. 3. The patient confirmed that he does not have any active infections. 4. The patient confirmed that he does not have any symptoms of illness: fever, chills, cold, flu, nausea, vomiting. 5. The patient confirmed that he is still experiencing significant pain. Pain and Anti-anxiety Medications: 1. Nerve Block Procedure Patients: Patient was instructed NOT to take their pain medications on theday of the procedure and anti-anxiety medications are part of their daily medication regiment; theycan and should continue taking that medication. 2. All Other Procedure Patients: The patient was instructed that if they take daily pain or anti-anxiety medications, they can and should continue taking on the day of the procedure. Does patient have history of any diagnosed bleeding disorders: No [id number]: No NSAIDs: Does the patient take Aspirin/ASA? Yes The patient confirmed that he discontinued taking Aspirin on 11/21/2017. Does the patient take an NSAID? No Diabetic instructions: Patient was advised to inform their PCP regarding safe fasting and the NPO requirements for their upcoming procedure and given the [facility] Nurse Triage Line . Implant: Patient has pacemaker/defibrillator: No Prior to checking in at [facility], please be sure to empty your bladder. Patient confirmed understanding that if they do not follow the above their instructions, their procedure is likely to be cancelled. WOLF Lyn documented in this encounter Plan of Treatment Upcoming Encounters Date Type Department Care Team (Late st Contact Info) Description 08/18/2024 10:30 AM EST [place] [address] Rodrigo Conteh MD [facility] [place] [address] documented as of this encounter Visit Diagnoses Not on filedocumented in this encounter Care Teams Client Services Representative Relationship Specialty Start Date End Date Sravani Salas APRN [address] [place] [address] PCP - General Family Medicine 01/15/17 documented as of this encounter
--- OUTSIDE RECORDS SUMMARY | 2024-08-14 01:24 | XMS_ITS | Encounter Summary ---
Author Organization [facility] [place] [address] Care Team Providers Care Apn Name Role Phone Sravani Salas CADY Primary Care Provider [phone] Encounter Details Date Type Department Care Team (Late st Contact Info) Description 10/10/2017 11:33 AM EST Anesthesia [place] [id number] Cleveland Torres MD [facility] [place] [address] Anesthesia Record Procedure Summary Procedure Name Responsible Anesthesiologist Anesthesia Start Time Anesthesia Stop Time AMB REFERRAL TO PAIN CLINIC Events No events on file. Meds * Agents No agents on file. * Blood No blood administrations on file. Lines, Drains, and Airways No LDAs on file. documented in this encounter Social History Tobacco [...] Progress Notes * Cleveland Torres MD - 10/10/2017 11:29 AM EST Spoke to the patient after meeting with the [facility] risk control representative. I will schedule the patient kanchan ultrasound-guided ulnar nerve block and if the patient gets good relief from that we will schedule for a peripheral nerve stimulator implant-StimRouter. I will discuss with Dr. Wood whether this should be done under ultrasound guidance or direct vision. documented in this encounter Plan of Treatment Upcoming Encounters Date Type Department Care Team (Late st Contact Info) Description 08/18/2024 10:30 AM EST Office [place] [address] Rodrigo Conteh MD [facility] [place] [address] documented as of this encounter Visit Diagnoses Not on filedocumented in this encounter Care Teams Apn Relationship Specialty Start Date End Date rSavani Salas APRN [address] [place] [address] PCP - General Family Medicine 01/15/17 documented as of this encounter
--- OUTSIDE RECORDS SUMMARY | 2024-08-14 01:24 | XMS_ITS | Encounter Summary ---
Author Organization [facility] [place] [address] Care Team Providers Care Laboratory Associate Name Role Phone Sravani Salas APRN Primary Care Provider [phone] [phone] Reason for Visit * Reason Comments Pain Management Encounter Details Date Type Department Care Team (Late st Contact Info) Description 07/14/2018 4:00 PM EST Office [place] [phone] Cleveland Torres MD [facility] [place] [address] Ulnar neuropathy of right upper extremity Social [...] Sign Reading Time Taken Comments Blood Pressure 163/100 07/14/2018 4:11 PM EST Pulse 80 07/14/2018 4:11 PM EST Temperature - - Respiratory Rate - - Oxygen Saturation 99% 07/14/2018 4:11 PM EST Inhaled Oxygen Concentration - - Weight 102.1 kg (225 lb) 07/14/2018 4:11 PM EST Height 170.2 cm (5' 7) 07/14/2018 4:11 PM EST Body Mass Index 35.24 07/14/2018 4:11 PM EST documented in this encounter Progress Notes * Cleveland Torres MD - 07/14/2018 4:00 PM EST [facility] [place] [place] [address] Phone: PAIN MANAGEMENT FOLLOW UP DATE OF VISIT 07/14/2018 Patient Isiah Medrano 1965 REFERRING PROVIDER Sravani Salas APRN [address] [place] [address] PRIMARY CARE PROVIDER Sravani Salas APRN Opioid agreement signed date: [place] and [place] Prescription Monitoring Program were checked & no concerns identified. CHIEF COMPLAINT: Right arm pain postop. Patient is postop day 3 after peripheral nerve stimulator placed under direct vision of the ulnar nerve above the elbow. He is still having significant pain despite use of ketorolac. He is on low-dose naltrexone. ADVERSE DRUG REACTIONS Allergies as of 07/14/2018 - Review Complete 07/14/2018 Allergen Reaction Noted ??? Eptifibatide Other (See Comments) ??? Amoxicillin Other (See Comments) 02/07/2017 MEDICATIONS Medications 07/14/18 1613 Medication Sig Taking? cephalexin (KEFLEX) 500 mg Capsule TAKE ONE CAPSULE BY MOUTH FOUR TIMES A DAY Yes ketorolac (TORADOL) 10 mg Tablet Take 1 tablet by mouth every 6 hours as needed for Pain. Yes Ibuprofen 200 mg Capsule Take 400 mg by mouth 3 times daily. Indications: 400mg three times daily Yes CHOLECALCIFEROL, VITAMIN D3, (VITAMIN D3 ORAL) [...] gauge x 5/16 Syringe 1 each by [facility].(Non- Drug; Combo Route) route 2 times daily. Yes DULoxetine (CYMBALTA) 60 mg Capsule, Delayed Release(E.C.) Take 60 mg by mouth daily. Yes pen needle, diabetic (NOVOFINE PLUS) 32 gauge x 1/6 Needle 1 each by [facility].(Non- Drug; Combo Route) route 4 [...] times daily. Use as instructed Yes Insulin [place], Disposable, (BD INSULIN PEN NEEDLE UF MINI) 31 x 3/16 Ndle by Other route. 1 box= 100 insulin PEN needles. Yes metFORMIN (GLUCOPHAGE) 500 mg tablet Take 1,000 mg by mouth 2 times daily (with meals). Yes Insulin Syringe-Needle U-100 (BD INSULIN SYRINGE ULT-FINE II) 1 mL 31 x 5/16 Syrg 1 each by [facility].(Non-Drug; Combo Route) route 2 times daily (before meals). Yes NALTREXONE HCL (NALTREXONE ORAL) Take 1 mg by mouth 4 times daily as needed. PHYSICAL EXAMINATION Most Recent Vitals: 07/14/18 1611 BP: (!) 163/100 Pulse: 80 SpO2: 99% Body mass index is 35.24 kg/m??. BP (!) 163/100 Pulse 80 Ht 170.2 cm (5' 7) Wt 102.1 kg (225 lb) No flowsheet data found. Impression: Postop day 3 peripheral nerve stimulator right ulnar nerve. Patient patient still having significant pain. Recommendations: #1 Medications: Patient to discontinue the naltrexone and given a prescription for oxycodone 5 mg #16, 1 every 4 as needed. He will follow-up in approximately 3 weeks for programming of the stimulator. I spent 10 of 15 minutes in [id number] discussion regarding plan of care with patient. Isiah Medrano had the opportunity to ask questions and indicated that all questions were answered to their satisfaction. 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
--- OUTSIDE RECORDS SUMMARY | 2024-08-14 01:24 | XMS_ITS | Encounter Summary ---
Author Organization [facility] [place] [address] Care Team Providers Care Crane Assembler Name Role Phone Sravani Salas Silas CADY Primary Care Provider [phone] Encounter Details Date Type Department Care Team (Latest Contact Info) Description 06/16/2018 12:30 PM EDT Laboratory Appointment Lab [address] [place] [phone] Type 2 diabetes, uncontrolled, with neuropathy; Family history of premature CAD; Mixed hyperlipidemia Social History Tobacco Use Types Packs/Day Years [...] 10:30 AM EST Office [place] [phone] Rodrigo Conteh MD [facility] [place] [address] documented as of this encounter Procedures Procedure Name Priority Date/Time Associated Diagnosis Comments VITAMIN D, 25-HYDROXY Routine 06/16/2018 11:51 AM EDT Type 2 diabetes, uncontrolled, with neuropathy LDL CHOLESTEROL, DIRECT STAT 06/16/2018 11:51 AM EDT Type 2 diabetes, uncontrolled, with neuropathy Family history of premature CAD Mixed hyperlipidemia HEMOGLOBIN A1C Routine 06/16/2018 11:51 AM EDT Type 2 diabetes, uncontrolled, with neuropathy documented in this encounter Results * Vitamin D, 25-Hydroxy (06/16/2018 11:51 AM EDT) Vitamin D Total 25 OH 61 30 - 100 ng/mL [facility] Comment: Deficient <10 ng/mL Insufficient 10 to 29 ng/mL Sufficient 30 to 100 ng/mL Potential Intoxication >100 ng/mL According to the [place] National Osteoporosis Foundation, Vitamin D concentrations >30 ng/mL are sufficient to protect bone health. ??The National Kidney Foundation has similarly stated that patients with Vitamin D concentrations <30ng/mL should be considered to be insufficient or deficient. http://Octapoly/nkf-guidelines http://Octapoly/nejm-VitD The [employer] iSYS Vitamin D Immunoassay detects both 25-OH Vitamin D2 and 25-OH Vitamin D3, but only a total Vitamin D concentration is reported. Blood specimen (specimen) 06/16/2018 11:51 AM EDT 06/16/2018 2:13 PM EDT Narrative Resulting Agency Comment Spec In Lab Rodrigo Conteh MD CHEMISTRY ORDERAB LES [facility] [place] [address] * (ABNORMAL) Hemoglobin A1c (06/16/2018 11:51 AM EDT) Hemoglobin A1c 7.7(H) 4.3 - 5.6 % [facility] Comment: Reference Range: 4.3 - 5.6% 5.7 - 6.4% - Increased Risk of Developing Diabetes Mellitus >=6.5% - Consistent with diagnosis of Diabetes Mellitus In the absence of hyperglycemia (i.e. plasma glucose > 200 mg/dL) or classic symptoms of hyperglycemia a repeat measurement of HbA1c should be performed on a separate sample to confirm the diagnosis. Diagnosis and Classification of Diabetes Mellitus, Diabetes Care 2013; 36: Suppl. 1, S67-74 Estimated Average Glucose 174 mg/dL [facility] Comment: eAG equivalents for HbA1c [...] into estimated average glucose values. ??Diabetes Care 2008:31(8):8984-9752. Blood specimen (specimen) 06/16/2018 11:51 AM EDT 06/16/2018 12:01 PM EDT Narrative Resulting Agency Comment Spec In Lab Rodrigo Conteh MD CHEMISTRY ORDERAB LES [facility] [place] [address] * LDL Cholesterol, Direct (06/16/2018 11:51 AM EDT) LDL Cholesterol, Direct 63 mg/dL [facility] Comment: Lowest Risk: <100 mg/dL Lower Risk: 100-129 mg/dL Borderline High Risk: 130-159 mg/dL High Risk: 160-189 mg/dL Very High Risk: >pb=553 mg/dL Blood specimen (specimen) 06/16/2018 11:51 AM EDT 06/16/2018 12:01 PM EDT Narrative Resulting Agency Comment Spec In Lab Rodrigo Conteh MD CHEMISTRY ORDERAB LES [facility] [place] [address] documented in this encounter Visit Diagnoses Diagnosis Type 2 diabetes, uncontrolled, with neuropathy Type II or unspecified type diabetes mellitus with neurological manifestations, uncontrolled Family history of premature CAD Family history of ischemic heart disease Mixed hyperlipidemia Type 2 diabetes mellitus with hyperglycemia, with long-term current use of insulin Vitamin D insufficiency Unspecified vitamin D deficiency Dyslipidemia Other and unspecified hyperlipidemia documented in this encounter Care Teams Crane Assembler Relationship Specialty Start Date End Date Sravani Salas APRN [address] [place] [address] PCP - General Family Medicine 01/15/17 documented as of this encounter
--- OUTSIDE RECORDS SUMMARY | 2024-08-14 01:24 | XMS_ITS | Encounter Summary ---
Author Organization [facility] [place] [address] Care Team Providers Care Molder Wax Ball Name Role Phone Sravani Salas APRN Primary Care Provider [phone] [phone] Reason for Visit * Reason Comments Pain Management Encounter Details Date Type Department Care Team (Late st Contact Info) Description 01/28/2019 11:00 AM EDT Office [place] [phone] Cleveland Torres MD [facility] [place] [address] Ulnar neuropathy of right upper extremity Social [...] Sign Reading Time Taken Comments Blood Pressure 149/81 01/28/2019 10:50 AM EDT Pulse 84 01/28/2019 10:50 AM EDT Temperature - - Respiratory Rate 18 01/28/2019 10:50 AM EDT Oxygen Saturation 100% 01/28/2019 10:50 AM EDT Inhaled Oxygen Concentration - - Weight 99.8 kg (220 lb) 01/28/2019 10:50 AM EDT Height - - Body Mass Index 35.51 12/26/2018 3:31 PM EDT documented in this encounter Progress Notes * Cleveland Torres MD - 01/28/2019 11:00 AM EDT The patient was here today meeting with [employer] representative. They confirm that there was no further programming they could use to maximize the peripheral nerve stimulator. I reconfirmed that we had ordered an MRI of thoracic and cervical spine as well as psychological evaluation for cervical spinal cord stimulator placement. We will move forward with that plan. I spent 5 to 10 minutes in [id number] discussion regarding plan of care with patient. 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
--- OUTSIDE RECORDS SUMMARY | 2024-08-14 01:24 | XMS_ITS | Encounter Summary ---
Author Organization [facility] [place] [address] Care Team Providers Care Entrance Guard Name Role Phone JosueSravani wood CADY Primary Care Provider [phone] Encounter Details Date Type Department Care Team (Late st Contact Info) Description 10/10/2017 Telephone [place] [phone] Cleveland Torres MD [facility] [place] [address] Social History Tobacco Use Types Packs/Day Years [...] Telephone Encounter - Cleveland Torres MD - 10/10/2017 11:34 AM EST I spoke to the patient after meeting with the care support representative from [facility]. I will set up the patient for a ulnar nerve block above the elbow and if he has good response we will plan on implanting theperipheral nerve stimulator-Stim Router. I will discuss with Dr. Wood whether to do this under direct vision or ultrasound guidance. documented in this encounter Plan of Treatment Upcoming Encounters Date Type Department Care Team (Late st Contact Info) Description 08/18/2024 10:30 AM EST Office Visit [place] [address] Rodrigo Conteh MD [facility] [place] [address] documented as of this encounter Visit Diagnoses Not on filedocumented in this encounter Care Teams Entrance Guard Relationship Specialty Start Date End Date Sravani Salas APRN [address] [place] [address] PCP - General Family Medicine 01/15/17 documented as of this encounter
--- OUTSIDE RECORDS SUMMARY | 2024-08-14 01:24 | XMS_ITS | Encounter Summary ---
[place] [address] Care Team Providers Care Offender Job Retention Specialist Name Role Phone Sravani Salas APRN Primary Care Provider [phone] Reason for Visit * Auth/Cert Specialty Diagnoses / Procedures Referred By Nii t Referred To Contact Diagnoses Ulnar Nerve Neuralgia Procedures PRO PERCUT IMPLANT, NEUROELEC, PERIPH NERVE GENERATOR, NEUROSTIMULATOR (IMPLANTABLE) PATIENT DEPUTY SHERIFF [employer] SERVICES, NEUROSTIMULATOR GENERATOR,NEUROSTIMULATOR W RECHARGE JOEL AND SYSTEM 1 Referral ID Status Reason Start Date Expiration Date Visits Re quested Visits Authorized [id number] 1 1 Encounter Details Date Type Department Care Team (Latest Contact Info) Description 07/11/2018 1:55 PM EST - 07/11/2018 6:57 PM [facility] Hospital Encounter [place] [address] Galdino Covington MD [facility] [place] [address] Discharge Disposition: Home Social History Tobacco Use [...] Sign Reading Time Taken Comments Blood Pressure 100/81 07/11/2018 5:25 PM EST Pulse 86 07/11/2018 5:25 PM EST Temperature 37 ??C (98.6 ??F) 07/11/2018 5:25 PM EST Respiratory Rate 16 07/11/2018 5:25 PM EST Oxygen Saturation 96% 07/11/2018 5:25 PM EST Inhaled Oxygen Concentration - - Weight - - Height - - Body Mass Index - - documented in this encounter Discharge Instructions * Discharge Instructions* Baldomero Rowe RN - 07/11/2018 6:10 PM EST POST ANESTHESIA INSTRUCTIONS Go home, rest, use caution on stairs. Change positions slowly. Do not smoke if you are alone. Diet light to regular as tolerated today. If nausea occurs start with clear liquids and progress slowly. No driving, operating machinery, alcoholic beverages and no important decisions for 24 hours. Monitor IV site for signs and symptoms of infection: increasing redness, swelling, foul drainage, if occurs contact M.D. Patients who have had endotrachial tubes (this tube, used by anesthesia department, is passed down your throat after you are asleep, to ensure safe air passage during your operation). A sore throat is normal due to the tube. Cold liquids or soothing lozenges will help ease the discomfort. The generalized muscle aches are due to the medication given to you just before the tube is inserted. As the medication wears off, you may develop muscle soreness, which usually goes away in 12-24 hours.POST ANESTHESIA INSTRUCTIONS Go home, rest, use caution on stairs. Change positions slowly. Do not smoke if you are alone. Diet light to regular as tolerated today. If nausea occurs start with clear liquids and progress slowly. No driving, operating machinery, alcoholic beverages and no important decisions for 24 hours. Monitor IV site for signs and symptoms of infection: increasing redness, swelling, foul drainage, if occurs contact M.D. Patients who have had endotrachial tubes (this tube, used by anesthesia department, is passed down your throat after you are asleep, to ensure safe air passage during your operation). A sore throat is normal due to the tube. Cold liquids or soothing lozenges will help ease the discomfort. The generalized muscle aches are due to the medication given to you just before the tube is inserted. As the medication wears off, you may develop muscle soreness, which usually goes away in 12-24 hours. * Patient Instructions* Taqueria Burns MD - 07/11/2018 5:58 AM EST PLASTIC SURGERY DISCHARGE INSTRUCTIONS WOUND CARE: OK to shower in 2 days. Do not submerge in water until cleared by MD. Keep dressing clean dry and intact for two days then ok to leave open to air. You must avoid sunlight exposure to your incision(s). Do not use ointments on the incisions postoperatively unless instructed by MD. ACTIVITIES: Minimize contact to affected area(s). No heavy lifting until seen by MD. DIET: Slowly advance diet as tolerated to a regular healthy diet. CALL MD IF: Increased pain, numbness, tingling, weakness, swelling, bruising, bleeding, or any other concerningsigns/symptoms. FOLLOW UP: Future Appointments and Orders Future Appointments and Orders Future Appointments Provider Department Dept Phone 07/25/2018 11:45 AM Cleveland Torres MD Pain Management at [place] [phone] 12/15/2018 9:30 AM LAB, THREE L Lab [address] [place] [address] Arrive at: [facility] 12/15/2018 10:30 AM Rodrigo Conteh MD Endocrinology at [place] Arrive at: [facility] [phone] MEDICATIONS: Your Medications Notice Cannot display discharge medications because the patient has not yet been admitted. PAIN CONTROL: See recommendations from your pain doctor. CONTACT INFORMATION: During office hours: Saturday through Saturday 8 am to 5 pm Call [phone] On weekends or after hours: Call [phone] and ask the scalping machine operator to page the Plastic Surgery Resident acute care nurse practitioner. We will contact you on Saturday regarding an appointment to have your sutures removed. documented in this encounter Medications at Time [...] Units by NOT APPLICABLE route. 08/11/2017 02/17/2021 cephalexin (KEFLEX) 500 mg Capsule TAKE ONE CAPSULE BY MOUTH FOUR TIMES A DAY 0 02/06/2018 10/29/2018 ketorolac (TORADOL) 10 mg Tablet Take 1 tablet by mouth every 6 hours as needed for Pain. 20 tablet 07/11/2018 07/25/2018 insulin regular CONCENTRATE U-500 (HUMULIN R U-500) 500 unit/mL Solution Inject 100-150 Units subcutaneously 2 times daily. E.g. 0.2 ml looks like 20U on regular insulin syringe to make 100 units of insulin dosage 20 mL 11 08/16/2017 10/20/2018 DULoxetine (CYMBALTA) 60 mg Capsule, Delayed Release(E.C.) Take 60 mg by mouth daily. 06/15/2019 traZODone (DESYREL) 50 mg Tablet Take 50 mg by mouth nightly as needed for Sleep. 09/08/2019 meTOPROLOL succinate (TOPROL-XL) 25 mg Tablet Sustained Release 24 hr Take 25 mg by mouth daily. 05/23/2015 09/08/2019 Insulin [place], Disposable, (BD INSULIN PEN NEEDLE UF MINI) 31 x 3/16 Ndle by Other route. 1 box = 100 insulin PEN needles. 1 Box 11 02/24/2013 06/15/2019 metFORMIN (GLUCOPHAGE) 500 mg tablet Take 1,000 mg by mouth 2 times daily (with meals). 12/26/2018 documented as of this encounter H&P Notes * Tiffany Collins MD - 07/11/2018 2:42 PM EST Plastic Surgery Preoperative H&P: Patient Name: Isiah Medrano Patient : 1965 Today's Date: 07/11/2018 Isiah Medrano is a 53 y.o. male with right arm pain who presents today for a DRG implant. No changes since last seen. Past Medical History: Diagnosis Date ??? Diabetes mellitus Past Surgical History: Procedure Laterality Date ??? CREATED BY INTERFACE cardiac stent to RCA 01/2008 Procedure Date: January 2008 ??? CREATED BY INTERFACE Hand operations x2 Procedure Date: Unknown ??? PRO APPLY LONG ARM SPLINT Right 01/20/2016 SPLINT APPLICATION, LONG ARM performed by Galdino Covington MD at [facility] MAIN OR ??? PRO REVISE ULNAR NERVE AT ELBOW Right 01/20/2016 NEUROPLASTY &/OR TRANSPOSITION, ULNAR NERVE AT ELBOW performed by Galdino Covington MD at [facility] MAIN OR ??? PRO REVISE ULNAR NERVE AT ELBOW Right 08/31/2016 NEUROPLASTY &/OR TRANSPOSITION, ULNAR NERVE AT ELBOW (WRVU 7.26) performed by Galdino Covington MD at [facility] MAIN OR ??? PRO TISSUE GRAFTS, OTHER (E.G. AUTOLOGOUS FAT GRAFT) Right 08/31/2016 TISSUE GRAFT, PARATENON, FAT, DERMIS (OTHER) (WRVU 5.79) performed by Galdino Covington MD at [facility] MAIN OR Family History Problem Relation Age of Onset ??? Diabetes Brother Social History Socioeconomic History ??? Marital status: Spouse name: Not on file ??? Number of children: Not on file ??? Years of education: Not on file ??? Highest education level: Not on file Social Needs ??? Financial resource strain: Not on file ??? Food insecurity - worry: Not on file ??? Food insecurity - inability: Not on file ??? Transportation needs - medical: Not on file ??? Transportation needs - non-medical: Not on file Occupational History ??? Not on file Tobacco Use ??? Smoking status: Never Smoker ??? Smokeless tobacco: Former User Types: Chew Substance and Sexual Activity ??? Alcohol use: No ??? Drug use: No ??? Sexual activity: Not on file Other Topics Concern ??? Not on file Social History Narrative ??? Not on file Allergies Allergen Reactions ??? Eptifibatide Other (See Comments) thrombocytopenia ??? Amoxicillin Other (See Comments) Unknown Review of systems: As per HPI, otherwise non-contributory. Exam: General: NAD Resp: CTAB CV: normal rate, regular rhythm A/P: Isiah Medrano is a 53 y.o. male with right arm pain who presents today for a DRG implant. - Proceed to OR. The risks, benefits and indications were reviewed with the patient and there remains an indication for surgery. Consent signed. - Preoperative abx ordered Tiffany Collins MD Plastic Surgery Resident P# [id number] documented in this encounter Miscellaneous Notes * Brief Op Note - Cleveland Torres MD - 07/11/2018 5:45 PM EST Brief Operative Note Patient Name: Isiah Medrano : [id number] MR#: [id number] Case Date: 07/11/2018 Surgeon: Surgeon(s) and Role: * Galdino Covington MD - Primary * Taqueria Burns MD - Resident-Surgeon Adeel * Cleveland Torres MD - *ASSISTING SURGEON Preoperative diagnosis: Ulnar Nerve Neuralgia Postoperative diagnosis: Ulnar Nerve Neuralgia Procedure(s) (LRB): IMPLANT NEUROSTIMULATOR ELECTRODES, PERIPHERAL NERVE (WRVU 2.32) (N/A) Anesthesia: GA Complications: none Intake: 800ml RL Intraprocedure Crystalloid Total None Transfusion No data found. Output: Estimated Blood Loss:10ml * No values recorded between 07/11/2018 4:18 PM and 07/11/2018 5:15 PM * Urine Output:: (no urine output recorded) Other Output: (no other output recorded) Specimens removed during surgery: None Disposition: awakened from anesthesia, extubated and taken to the recovery room in a stable condition, having suffered no apparent untoward event. Condition: doing well without problems Attestation: Case Date: 07/11/2018 I was present and I participated during the entire procedure (does not need to include opening and closing). (Please see the Surgical Encounter Summary for any Implant and Specimen details pertinent to this patient.) * Op Note - Taqueria Burns MD - 07/11/2018 5:30 PM EST [facility] Operative Note Patient Name: Isiah Medrano : [id number] MR#: [id number] Case Date: 07/11/2018 Surgeon: Surgeon(s) and Role: * Galdino Covington MD - Primary * Taqueria Burns MD - Resident-Surgeon Adeel * Cleveland Torres MD - *ASSISTING SURGEON Preoperative diagnosis: Ulnar Nerve Neuralgia Postoperative diagnosis: Ulnar Nerve Neuralgia Procedure(s) (LRB): IMPLANT NEUROSTIMULATOR ELECTRODES, PERIPHERAL NERVE (WRVU 2.32) (N/A) Findings: right ulnar nerve stimulator implantation Anesthesia: MAC Estimated Blood Loss: 5ml Specimens removed during surgery: None Drains: none Surgical Closure: Primary Closure - skin incision is completely closed without any wires, stephany, drains or other devices Disposition: awakened from anesthesia, extubated and taken to the recovery room in a stable condition, having suffered no apparent untoward event. Condition: doing well without problems (Please see the Surgical Encounter Summary for any Implant and Specimen details pertinent to this patient.) Procedure Description: The patient was identified and marked in the preoperative holding area. We reviewed the surgical plan and potential risks and complications. He expressed understanding and wished to proceed. The patient was brought to the operating room and positioned supine on the operating table with theright arm out. Anesthetic monitors and SCDs were applied. General anesthesia was induced and a time-out was performed. Pre- operative antibiotics were administered. A tourniquet was placed on the upper arm and the hand and forearm were prepped and draped in the usual sterile fashion. An Esmarch was used to exsanguinate the arm and the tourniquet was inflated to 250 mmHg. The patient's previous medial elbow incision was opened with a #15 blade and extended 1 cm proximally. Blunt dissection was carried down proximally outside the zone of scar until the ulnar nerve was identified.The ulnar nerve was heavily encased in scar distal to this neural lysis was performed in order to free approximately 4 cm of nerve from the scar. The tunneling device supplied by the director industrial nursing wasused to create a tunnel through the subcutaneous tissue from the surgical site to location just above the antecubital fossa approximately 7 cm from where we planned to attach the electrode. The barrel drum cutter was passed through the tunneling device and the tunneling device was removed. The puncture woundwound created by the tunneling device was closed with a single 4-0 nylon suture. The electrode was laid immediately adjacent and parallel to the ulnar nerve and secured to the adjacent soft tissue with 3-0 interrupted silk suture. Excess lead was looped and secured in place with 3-0 silk. The tourniquet was let down. Hemostasis was achieved with the bipolar. The wound was irrigated with saline. The wound was closed in layers with 4-0 Vicryl for the deep fascial and deep dermal layers and 4-0 nylon horizontal mattress and running sutures for the skin. Total tourniquet time was 35 minutes. A sterile dressing was applied. All counts were correct at the end of the case. The attending surgeon was present for the entire case.The patient was awoken from anesthesia with no apparent complications and transported to the recovery room in stable condition. Infection Bundle used? No Associated attestation - Galdino Covington MD - 07/15/2018 11:32 AM EST Attestation: Case Date: 07/11/2018 I was present and I participated during the entire procedure (does not need to include opening and closing). GALDINO COVINGTON MD 07/15/2018 * Brief Op Note - Taqueria Burns MD - 07/11/2018 5:15 PM EST Brief Operative Note Patient Name: Isiah Medrano : [id number] MR#: [id number] Case Date: 07/11/2018 Surgeon: Surgeon(s) and Role: * Galdino Covington MD - Primary * Taqueria Burns MD - Resident-Surgeon Adeel * Cleveland Torres MD - *ASSISTING SURGEON Preoperative diagnosis: Ulnar Nerve Neuralgia Postoperative diagnosis: Ulnar Nerve Neuralgia Procedure(s) (LRB): IMPLANT NEUROSTIMULATOR ELECTRODES, PERIPHERAL NERVE (WRVU 2.32) (N/A) Anesthesia: MAC Findings: right ulnar nerve stimulator implantation Complications: none apparent Estimated Blood Loss: 5ml Specimens removed during surgery: None Fluids: Intraprocedure Crystalloid Total None PRBCs: none (See Anesthesia Record/Report for Other Blood Products) Urine Output: (no urine output recorded) Drains: none Disposition: awakened from anesthesia, extubated and taken to the recovery room in a stable condition, having suffered no apparent untoward event. Condition: doing well without problems (Please see the Surgical Encounter Summary for any Implant and Specimen details pertinent to this patient.) Infection Bundle used? No Plan: - Follow up in 2 weeks w nurse for suture removal Future Appointments Date Time Provider Department Center 07/25/2018 11:45 AM Cleveland Torres MD Leb Pain [facility] 12/15/2018 9:30 AM LAB, THREE L Lab 3L [facility] 12/15/2018 10:30 AM Rodrigo Conteh MD Leb Endo [facility] documented in this encounter Plan of Treatment Upcoming Encounters Date Type Department Care Team (Late st Contact Info) Description 08/18/2024 10:30 AM EST Office Visit [place] [address] Rodrigo Conteh MD [facility] [place] [address] documented as of this encounter Procedures Procedure Name Priority Date/Time Associated Diagnosis Comments IMPLANTABLE DEVICES SCAN 07/14/2018 12:00 AM EST POCT GLUCOSE Routine 07/11/2018 6:31 PM EST POCT GLUCOSE Routine 07/11/2018 5:47 PM EST IMPLANT NEUROSTIMULATOR ELECTRODES, PERIPHERAL NERVE (WRVU 5.76) 07/11/2018 3:41 PM EST Ulnar Nerve Neuralgia POCT GLUCOSE Routine 07/11/2018 3:03 PM EST documented in this encounter Results * SCAN DOC: IMPLANTABLE DEVICES (07/14/2018 12:00 AM EST) Narrative 07/14/2018 12:00 AM EST Ordered by an unspecified provider. Scanning Provider MEDIA MGR SCAN EXT O RDR/RSLT * POCT Glucose (07/11/2018 6:31 PM EST) Glucose, POC 174 65 - 199 mg/dL [facility] Comment: Supplemental ranges: <140 mg/dL before meals <180 mg/dL all other times of the day Blood specimen (specimen) 07/11/2018 6:31 PM EST 07/11/2018 6:31 PM EST Galdino Covington MD POINT OF CARE TEST O RDERABLES [facility] [place] [address] * POCT Glucose (07/11/2018 5:47 PM EST) Glucose, POC 67 65 - 199 mg/dL [facility] Comment: Supplemental ranges: <140 mg/dL before meals <180 mg/dL all other times of the day Blood specimen (specimen) 07/11/2018 5:47 PM EST 07/11/2018 5:47 PM EST Galdino Covington MD POINT OF CARE TEST O LIBORIO Performing Organization Address [facility] Co de Phone Number [facility] [place] [address] * POCT Glucose (07/11/2018 3:03 PM EST) Glucose, POC 69 65 - 199 mg/dL [facility] Comment: Supplemental ranges: <140 mg/dL before meals <180 mg/dL all other times of the day Blood specimen (specimen) 07/11/2018 3:03 PM EST 07/11/2018 3:03 PM EST Galdino Covington MD POINT OF CARE TEST Keven CAPONE Performing Organization Address [facility] Co de Phone Number [facility] [place] [address] documented in this encounter Visit Diagnoses Not on filedocumented in this encounter Administered Medications Inactive Administered Medications - up to 3 most recent administrations Medication Order MAR Action Action Date Dose Rate Site acetaminophen (TYLENOL) tablet 1,000 mg 1,000 mg, Oral, ONCE, 1 dose, On Sat07/11/18 at 1445, Administer with SIP of H2O only., Day of Surgery (Day of Procedure), Routine Given 07/11/2018 2:45 PM EST 1,000 mg acetaminophen (TYLENOL) tablet 1,000 mg 1,000 mg, Oral, EVERY 6 HOURS SCHEDULED, First dose on Sat07/11/18 at 0615, Until Discontinued, Maximum dose of acetaminophen is 4000 mg from all sources in 24 hours., Routine Given 07/11/2018 6:41 PM EST 1,000 mg ketorolac (TORADOL) injection 30 mg 30 mg, Intravenous, ONCE, 1 dose, On Sat07/11/18 at 1800, Routine Given 07/11/2018 6:00 PM EST 30 mg lactated Ringers infusion 1,000 mL 1,000 mL, at 100 mL/hr, Intravenous, CONTINUOUS, Starting on Sat07/11/18 at 1445, Until Sat07/11/18 at 1849, Day of Surgery (Day of Procedure) New Bag 07/11/2018 3:07 PM EST 1,000 mLs 100 mL/hr lidocaine (XYLOCAINE) 10 mg/mL (1 %) injection 3 mg 3 mg (0.3 mL), Subcutaneous, ONCE PRN, 1 dose, Starting on Sat07/11/18 at 1416, Until Sat07/11/18 at 1507, for discomfort with PIV insertion, Day of Surgery (Day of Procedure), Routine Given 07/11/2018 3:07 PM EST 3 mg documented in this encounter Active and Recently Administered Medications Times are shown in EST. Scheduled Medication Order 07/09/2018 07/10/2018 07/11/2018 acetaminophen (TYLENOL) tablet 1,000 mg (COMPLETED) 1,000 mg, Oral, ONCE, 1 dose, On Sat07/11/18 at 1445, Administer with SIP of H2O only., Day of Surgery (Day of Procedure), Routine 1445 (Given - Provid er: Sandra Blevins RN) acetaminophen (TYLENOL) tablet 1,000 mg 1,000 mg, Oral, EVERY 6 HOURS SCHEDULED, First dose on Sat07/11/18 at 0615, Until Discontinued, Maximum dose of acetaminophen is 4000 mg from all sources in 24 hours., Routine 0615 (Due)1200 (Not Given - Provider: Sandra Blevins RN - Reason: Entered in Error)1841 (Given - Provider: Baldomero Rowe RN) clindamycin (CLEOCIN) 600mg in dextrose 5% 50mL (COMPLETED) 600 mg, Intravenous, ONCE, 1 dose, On Sat07/11/18 at 1515, Administer over 20 Minutes, Indication for (Active or Suspected): Prophylaxis 1602 (Given - Provid er: Ramos Gilbert CRNA) ketorolac (TORADOL) injection 30 mg (COMPLETED) 30 mg, Intravenous, ONCE, 1 dose, On Sat07/11/18 at 1800, Routine 1756 (Due - Provider : Baldomero Rowe, RN)1800 (Given - Provider: Baldomero Rowe RN) Continuous Medication Order 07/09/2018 07/10/2018 07/11/2018 lactated Ringers infusion 1,000 mL (CANCELED) 1,000 mL, at 100 mL/hr, Intravenous, CONTINUOUS, Starting on Sat07/11/18 at 1445, Until Sat07/11/18 at 1849, Day of Surgery (Day of Procedure) 1507 (New Bag - Prov ider: Deyanira Camarillo RN)1727 (Anesthesia Volume Adjustment - Provider: Ramos Gilbert CRNA) PRN Medication Order 07/09/2018 07/10/2018 07/11/2018 lidocaine (XYLOCAINE) 10 mg/mL (1 %) injection 3 mg (COMPLETED) 3 mg (0.3 mL), Subcutaneous, ONCE PRN, 1 dose, Starting on Sat07/11/18 at 1416, Until Sat07/11/18 at 1507, for discomfort with PIV insertion, Day of Surgery (Day of Procedure), Routine 1507 (Given - Provid er: Deyanira Camarillo RN) documented in this encounter Care Teams Offender Job Retention Specialist Relationship Specialty Start Date End Date Sravani Salas APRN [address] [place] [address] PCP - General Family Medicine 01/15/17 documented as of this encounter
--- OUTSIDE RECORDS SUMMARY | 2024-08-14 01:24 | XMS_ITS | Encounter Summary ---
[place] [address] Care Team Providers Care Pipe Stem Repairer Name Role Phone Sravani Salas APRN Primary Care Provider [phone] [phone] Reason for Visit * Auth/Cert Specialty Diagnoses / Procedures Referred By Nii t Referred To Contact Diagnoses Ulnar Nerve Neuralgia Procedures PRO PERCUT IMPLANT, NEUROELEC, PERIPH NERVE GENERATOR, NEUROSTIMULATOR (IMPLANTABLE) PATIENT DRAFTER STRUCTURAL, NEUROSTIMULATOR GENERATOR,NEUROSTIMULATOR W RECHARGE JOEL AND SYSTEM 1 Referral ID Status Reason Start Date Expiration Date Visits Re quested Visits Authorized [id number] 1 1 Encounter Details Date Type Department Care Team (Late st Contact Info) Description 07/11/2018 3:55 PM EST - 07/11/2018 6:23 PM EST [place] [address] Galdino Covington MD [facility] [place] [place] [address] IMPLANT NEUROSTIMULATOR ELECTRODES, PERIPHERAL NERVE (WRVU 5.76) Social History Tobacco Use Types Packs/Day Years [...] AM Cleveland Torres MD Pain Management at [place] [phone] 12/15/2018 9:30 AM LAB, THREE L Lab [address] [place] [address] Arrive at: [facility] 12/15/2018 10:30 AM Rodrigo Conteh MD Endocrinology at [place] Arrive at: [facility] [phone] MEDICATIONS: Your Medications Notice Cannot display discharge medications because the patient has not yet been admitted. PAIN CONTROL: See recommendations from your pain doctor. CONTACT INFORMATION: During office hours: Saturday through Saturday 8 am to 5 pm Call [phone] On weekends or after hours: Call [phone] and ask the furnace operator oil or gas to page the Plastic Surgery Resident construction lineman. We will contact you on Saturday regarding [...] mg by mouth daily. 05/23/2015 09/08/2019 Insulin [place], Disposable, (BD INSULIN PEN NEEDLE UF MINI) [...] ARM performed by Galdino Covington MD at [facility] MAIN OR ??? PRO REVISE ULNAR NERVE AT ELBOW Right 01/20/2016 NEUROPLASTY &/OR TRANSPOSITION, ULNAR NERVE AT ELBOW performed by Galdino Covington MD at [facility] MAIN OR ??? PRO REVISE ULNAR NERVE AT ELBOW Right 08/31/2016 NEUROPLASTY &/OR TRANSPOSITION, ULNAR NERVE AT ELBOW (WRVU 7.26) performed by Galdino Covington MD at [facility] MAIN OR ??? PRO TISSUE GRAFTS, OTHER (E.G. AUTOLOGOUS FAT GRAFT) Right 08/31/2016 TISSUE GRAFT, PARATENON, FAT, DERMIS (OTHER) (WRVU 5.79) performed by Galdino Covington MD at [facility] MAIN OR Family History Problem Relation [...] Tiffany Collins MD Plastic Surgery Resident P# [phone] documented in this encounter Miscellaneous Notes * Brief Op Note - Cleveland Torres MD - 07/11/2018 5:45 PM EST Brief Operative Note Patient Name: Isiah Medrano : [id number] MR#: [id number] Case Date: 07/11/2018 Surgeon: Surgeon(s) and Role: [...] Burns MD - 07/11/2018 5:30 PM EST [facility] [place] Note Patient Name: Isiah Medrano : [id number] MR#: [id number] Case Date: 07/11/2018 Surgeon: Surgeon(s) and Role: [...] scar. The tunneling device supplied by the crew dispatcher wasused to create a tunnel through the subcutaneous tissue from the surgical site to location just above the antecubital fossa approximately 7 cm from where we planned to attach the electrode. The bill of materials clerk was passed through the tunneling device and [...] Operative Note Patient Name: Isiah Medrano : [id number] MR#: [id number] Case Date: 07/11/2018 Surgeon: Surgeon(s) and Role: [...] 9:30 AM LAB, THREE L Lab [facility]L [facility] 12/15/2018 10:30 AM Rodrigo Conteh MD [facility] documented in this encounter Plan of Treatment Upcoming Encounters Date Type Department Care Team (Late st Contact Info) Description 08/18/2024 10:30 AM EST Office Visit Endocrinology at [facility] [place] [address] Rodrigo Conteh MD [facility] [place] [address] documented as of this encounter Procedures Procedure [...] Glucose, POC 174 65 - 199 mg/dL [facility] Comment: Supplemental ranges: <140 mg/dL before meals <180 mg/dL all other times of the day Blood specimen (specimen) 07/11/2018 6:31 PM EST 07/11/2018 6:31 PM EST Galdino Covington MD POINT OF CARE TEST O RDERABLES [facility] [place] [address] * POCT Glucose (07/11/2018 5:47 PM EST) Glucose, POC 67 65 - 199 mg/dL [facility] Comment: Supplemental ranges: <140 mg/dL before meals <180 mg/dL all other times of the day Blood specimen (specimen) 07/11/2018 5:47 PM EST 07/11/2018 5:47 PM EST Galdino Covington MD POINT OF CARE TEST O LIBORIO Performing Organization Address [facility]/ZIP Co de Phone Number [facility] [place] [address] * POCT Glucose (07/11/2018 3:03 PM EST) Glucose, POC 69 65 - 199 mg/dL [facility] Comment: Supplemental ranges: <140 mg/dL before meals <180 mg/dL all other times of the day Blood specimen (specimen) 07/11/2018 3:03 PM EST 07/11/2018 3:03 PM EST Galdino Covington MD POINT OF CARE TEST O LIBORIO Performing Organization Address [facility] Co de Phone Number [facility] [place] [address] documented in this encounter Visit Diagnoses Not [...] 1507 (New Bag - Prov ider: Deyanira [place], MANUEL)1727 (Anesthesia Volume Adjustment - Provider: Ramos Gilbert [...] RN) documented in this encounter Care Teams Pipe Stem Repairer Relationship Specialty Start Date End Date Sravani Salas APRN [address] [place] [address] PCP - General Family Medicine 01/15/17 documented as of this encounter
--- OUTSIDE RECORDS SUMMARY | 2024-08-14 01:24 | XMS_ITS | Encounter Summary ---
Author Organization [facility]ly [facility] [place] [address] Care Team Providers Care Ocean Transportation Intermediary Name Role Phone Sravani Salas APRN Primary Care Provider [phone] Reason for Visit * Reason Comments Pain Management * Consultation (Routine) - Closed Specialty Diagnoses / Procedures Referred By Contac t Referred To Contact Pain Management Diagnoses Pain of right upper extremity Galdino Wood MD [facility] [place] [address] Cleveland Torres MD [facility] [place] [address] Referral ID Status Reason Start Date Expiration Date V isits Requested Visits Authorized [id number] Closed Consult, Test & Treat 12/09/2017 12/09/2018 1 1 Encounter Details Date Type Department Care Team (Late st Contact Info) Description 03/28/2018 4:00 PM EDT Office [place] [address] Cleveland Torres MD [facility] [place] [address] Ulnar neuropathy of right upper extremity Social [...] Sign Reading Time Taken Comments Blood Pressure 151/93 03/28/2018 3:40 PM EDT Pulse 103 03/28/2018 3:40 PM EDT Temperature - - Respiratory Rate - - Oxygen Saturation 98% 03/28/2018 3:40 PM EDT Inhaled Oxygen Concentration - - Weight 104.8 kg (231 lb) 03/28/2018 3:40 PM EDT Height 171.5 cm (5' 7.5) 03/28/2018 3:40 PM EDT Body Mass Index 35.65 03/28/2018 3:40 PM EDT documented in this encounter Progress Notes * Cleveland Torres MD - 03/28/2018 4:00 PM EDT [facility] [place] [address] Phone: PAIN MANAGEMENT FOLLOW UP DATE OF VISIT 03/28/2018 Patient Isiah Medrano 1965 REFERRING PROVIDER Sravani Salas APRN [address] [place] [address] PRIMARY CARE PROVIDER Sravani Salas APRN CHIEF COMPLAINT: Right upper extremity pain HPI Isiah Medrano is a 52 y.o. 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 He had transposition which did not help and then subsequently 2 more surgeries without much improvement. He is tried multiple medications including opioids and adjuvants membrane stabilizers. The opioids did not help. He stopped these. He has seen Dr. Orr a couple of times he started him on naltrexone which is helping minimally. He had a stellate ganglion block which did not help. They discussed spinal cord stimulation as an option. The gabapentin is helping somewhat. He describes the pain is mostly in his hand and the fourth and fifth finger but will radiate from his elbows down on occasion. He had an ulnar block under ultrasound guidance which gave him very transient relief of his pain. He is here today to discuss options. Peripheral nerve stimulation versus spinal cord stimulation were the 2 main options he was considering. ADVERSE DRUG REACTIONS Allergies as of 03/28/2018 - Review Complete 03/28/2018 Allergen Reaction Noted ??? Eptifibatide Other (See Comments) ??? Amoxicillin Other (See Comments) 02/07/2017 MEDICATIONS Medications 03/28/18 1549 Medication Sig Taking? Ibuprofen 200 mg Capsule Take 400 mg [...] gauge x 5/16 Syringe 1 each by [facility].(Non- Drug; Combo Route) route 2 times daily. Yes NALTREXONE HCL (NALTREXONE ORAL) Take 1 mg by mouth 4 times daily as needed. Yes DULoxetine (CYMBALTA) 60 mg Capsule, Delayed Release(E.C.) Take 60 mg by mouth daily. Yes pen needle, diabetic (NOVOFINE PLUS) 32 gauge x 1/6 Needle 1 each by [facility].(Non- Drug; Combo Route) route 4 times daily [...] times daily. Use as instructed Yes Insulin [place], Disposable, (BD INSULIN PEN NEEDLE UF MINI) [...] meals). Yes PHYSICAL EXAMINATION Most Recent Vitals: 03/28/18 1540 BP: (!) 151/93 Pulse: (!) 103 SpO2: 98% Body mass index is 35.65 kg/(m^2). BP (!) 151/93 Pulse (!) 103 Ht 171.5 cm (5' 7.5) Wt 104.8 kg (231 lb) SpO2 98% BMI 35.65kg/m2 No flowsheet data found. 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 He has had 3 surgeries which have not corrected the problem. I think he would be a good candidate for a peripheral nervestimulator over spinal cord stimulation initially given that this would be one stage process and easily reversible if it was not effective and more complicated spinal cord stimulation could be conside red if the former was not effective. I discussed with the patient that even though the block was only effective for very limited. Of time it would make sense to proceed with the stimulator as there is no good correlation that longer-lasting block would mean a better outcome from peripheral nerve sti mulation. Recommendations: #1 Medications: No further recommendations at this time #2 Procedures: We will schedule for a peripheral nerve implant. This could be either done percutaneously or open. The plan will be to do it with Dr. Wood and if it could be done percutaneously then will if it seems technically difficult then we will proceed with open procedure. We will arrange this at the next available OR time. I spent 20 of 25 minutes in [id number] discussion regarding plan of care patient. Isiah E Mitchell had the opportunity to ask questions and indicated that all questions were answered to their satisfaction. 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
--- OUTSIDE RECORDS SUMMARY | 2024-08-14 01:24 | XMS_ITS | Encounter Summary ---
[place] [address] Care Team Providers Care Welt Rander Name Role Phone Sravani Salas APRN Primary Care Provider [phone] Reason for Referral * Diagnostic Test (Routine) - Specialty Diagnoses / Procedures Referred By Contac t Referred To Contact Radiology Diagnoses Ulnar neuropathy of right upper extremity Procedures MRI Cervical Spine wo Contrast (Generic) Cleveland Torres MD [facility] [place] [address] [place] [address] Referral ID Status Reason Start Date Expiration Date Visits Requested Visits Authorized [id number] Specialty Service Requested 12/31/2018 12/31/2019 1 1 * Diagnostic Test (Routine) - Closed Specialty Diagnoses / Procedures Referred By Contac t Referred To Contact Radiology Diagnoses Ulnar neuropathy of right upper extremity Procedures MRI Thoracic Spine wo Contrast (Generic) Cleveland Torres MD [facility] [place] [address] [place] [address] Referral ID Status Reason Start Date Expiration Date V isits Requested Visits Authorized [id number] Closed Specialty Service Requested 03/12/2019 05/10/2019 1 1 Reason for Visit * Diagnostic Test (Routine) - Closed Specialty Diagnoses / Procedures Referred By Contac t Referred To Contact Radiology Diagnoses Ulnar neuropathy of right upper extremity Procedures MRI Thoracic Spine wo Contrast (Generic) Cleveland Torres MD [facility] [place] [address] [facility] [place] [address] Referral ID Status Reason Start Date Expiration Date V isits Requested Visits Authorized [id number] Closed Specialty Service Requested 03/12/2019 05/10/2019 1 1 Encounter Details Date Type Department Care Team (Latest Contact Info) Description 03/17/2019 2:41 PM EDT - 03/17/2019 11:59 PM EDT Hospital Encounter [place] [address] Cleveland Torres MD [facility] [place] [address] Ulnar neuropathy of right upper extremity Discharge Disposition: Home Social History Tobacco Use [...] gauge x 5/16 Syringe 1 each by [facility].(Non-Drug; Combo Route) route 2 times daily. 100 Syringe 11 07/02/2017 NALTREXONE HCL (NALTREXONE ORAL)Indications:pt takes 4.5 mg daily Take 1 mg by mouth 4 times daily as needed (pain). Indications: pt takes 4.5 mg daily pen needle, diabetic (NOVOFINE PLUS) 32 gauge x 1/6 Needle 1 each by [facility].(Non-Drug; Combo Route) [...] 31 x 5/16 Syrg 1 each by [facility].(Non-Drug; Combo Route) [...] scanning reader (FREESTYLE NEAL 14 DAY READER) [facility] As instructed [...] gauge x 15/64 Syringe 1 each by [facility].(Non-Drug; Combo Route) [...] mg by mouth daily. 05/23/2015 09/08/2019 Insulin [place], Disposable, (BD INSULIN PEN NEEDLE UF MINI) 31 x 3/16 Ndle by Other route. 1 box = 100 insulin PEN needles. 1 [address] 02/24/2013 06/15/2019 documented as of this encounter Plan of Treatment Upcoming Encounters Date Type Department Care Team (Late st Contact Info) Description 08/18/2024 10:30 AM EST Office Visit Endocr[place] [address] Rodrigo Conteh MD [facility] [place] [place] [address] documented as of this encounter Procedures Procedure Name Priority Date/Time Associated Diagnosis Comments MRI THORACIC SPINE WITHOUT CONTRAST Routine 03/17/2019 4:35 PM EDT Ulnar neuropathy of right upper extremity MRI CERVICAL SPINE WO CONTRAST Routine 03/17/2019 4:35 PM EDT Ulnar neuropathy of right upper extremity documented in this encounter Results * (ABNORMAL) MRI Cervical [...] report, please contact the number below. ? Electronically signed by: Jem Liriano [facility] ([phone]), at 03/17/2019 5:22 PM Narrative 03/17/2019 5:22 PM EDT EXAMINATION: MRI [...] 4.4 cm. Resulting Agency Comment Unexpected Finding Cleveland Torres MD G MRI ORDERABLES * (ABNORMAL) MRI Thoracic Spine [...] report, please contact the number below. ? Electronically signed by: Jem Liriano [facility] ([phone]), at 03/17/2019 5:22 PM Narrative 03/17/2019 5:22 PM EDT EXAMINATION: MRI [...] right renal T2 hyperintensity measuring 4.4 cm. Cleveland Torres MD IMG MRI ORDERABLES documented in this encounter Visit Diagnoses Diagnosis Ulnar neuropathy of right upper extremity Lesion of ulnar nerve Type 2 diabetes mellitus with hyperglycemia, with long-term current use of insulin Vitamin D insufficiency Unspecified vitamin D deficiency Dyslipidemia Other and unspecified hyperlipidemia documented in this encounter Care Teams Welt Rander Relationship Specialty Start Date End Date Sravani Salas, EMPLOYEE BENEFITS SPECIALIST [address] [place] [address] PCP - General Family Medicine 01/15/17 documented as of this encounter
--- OUTSIDE RECORDS SUMMARY | 2024-08-14 01:24 | XMS_ITS | Encounter Summary ---
[place] [address] Care Team Providers Care Veneer Jointer Helper Name Role Phone Sravani Salas APRN Primary Care Provider [phone] [phone] Encounter Details Date Type Department Care Team (Late st Contact Info) Description 08/11/2018 Telephone [place] [address] Riky Corona MD [facility] DR ANESTHESIOLOGY DEPT [place] [id number] Social History Tobacco Use Types Packs/Day Years [...] encounter Miscellaneous Notes * Telephone Encounter - Riky Corona MD - 08/11/2018 7:24 AM EST Patient's paged on 08/09/18 with concerns. He had a peripheral nerve stimulator implanted 07/11/18 for ulnar neuropathy. He was evaluated in clinic 07/25/18 and found to be healing well. He was seen by the [facility] on 08/07/18 for initial programming. He was told to turn it on for 3 hours, followed by turning off for 1 hour. Over the next two days he noticed that the pain was not improved with the stimulator turned on and that he had significantly increased pain from baseline when the stimulator was turned off. They were unable to contact the rep for further instructions thus prompting the page to the pain clinic. I encouraged them to try contacting the rep one more time before offering recommendations. They were able to contact the rep finally who advised him to not use the stimulator at all for the rest of 08/09/18 and to restart with 1 hour of stimulation at a time on 08/10 or 08/11. I encouraged them to follow through with these recommendations and if they had any concerns by Saturday to contact the clinic. Riky Corona MD Pain Fellow documented in this encounter Plan of Treatment Upcoming Encounters Date Type Department Care Team (Late st Contact Info) Description 08/18/2024 10:30 AM EST Office [place] [address] Rodrigo Conteh MD [facility] [place] [address] documented as of this encounter Visit Diagnoses Not on filedocumented in this encounter Care Teams Veneer Jointer Helper Relationship Specialty Start Date End Date Sravani Salas APRN [address] [place] [address] PCP - General Family Medicine 01/15/17 documented as of this encounter
--- OUTSIDE RECORDS SUMMARY | 2024-08-14 01:24 | XMS_ITS | Encounter Summary ---
Author Organization [facility] [place] [address] Care Team Providers Care Edge Sander Name Role Phone Sravani Salas APRN Primary Care Provider [phone] Encounter Details Date Type Department Care Team (Late st Contact Info) Description 08/07/2018 11:30 AM EST Notes [place] [address] Social History Tobacco Use Types Packs/Day Years [...] as of this encounter Progress Notes * Aye Rucker - 08/07/2018 11:30 AM EST None documented in this encounter Plan of Treatment Upcoming Encounters Date Type Department Care Team (Late st Contact Info) Description 08/18/2024 10:30 AM EST Office [place] [address] [facility] [place] [address] documented as of this encounter Visit Diagnoses Not on filedocumented in this encounter Care Teams Edge Sander Relationship Specialty Start Date End Date Sravani Salas APRN [address] [place] [address] PCP - General Family Medicine 01/15/17 documented as of this encounter
--- OUTSIDE RECORDS SUMMARY | 2024-08-14 01:24 | XMS_ITS | Encounter Summary ---
[place] [address] Care Team Providers Care Ethics Officer Name Role Phone JosueSravani wood CADY Primary Care Provider +1 -[phone] Encounter Details Date Type Department Care Team (Late st Contact Info) Description 04/21/2018 Telephone [place]astic [place] [address] Raina Johnson Social History Tobacco Use Types Packs/Day Years [...] Miscellaneous Notes * Telephone Encounter - Raina Johnson - 04/21/2018 8:27 AM EDT Called and left message for patient. Dr. Wood has asked that we bring patient in for a follow up regarding scheduling a coordinated surgical case between Dr. Wood and Dr. Ha [facility] Provider for peripheral nerve implant. documented in this encounter Plan of Treatment Upcoming Encounters Date Type Department Care Team (Late st Contact Info) Description 08/18/2024 10:30 AM EST Office Visit [place] [address] Rodrigo Conteh MD [facility] [place] [address] documented as of this encounter Visit Diagnoses Not on filedocumented in this encounter Care Teams Ethics Officer Relationship Specialty Start Date End Date Sravani Salas APRN [address] [place] [address] PCP - General Family Medicine 01/15/17 documented as of this encounter
--- OUTSIDE RECORDS SUMMARY | 2024-08-14 01:24 | XMS_ITS | Encounter Summary ---
Author Organization [facility] [place] [address] Care Team Providers Care Central Supply Nurse Name Role Phone Sravani Salas APRN Primary Care Provider [phone] [phone] Reason for Visit * Reason Comments Pain Management post op STIM implant Encounter Details Date Type Department Care Team (Late st Contact Info) Description 07/25/2018 11:45 AM EST Office [place] [phone] Cleveland Torres MD [facility] [place] [address] Ulnar neuropathy of right upper extremity Social [...] Sign Reading Time Taken Comments Blood Pressure 136/86 07/25/2018 11:44 AM EST Pulse 83 07/25/2018 11:44 AM EST Temperature - - Respiratory Rate - - Oxygen Saturation 99% 07/25/2018 11:44 AM EST Inhaled Oxygen Concentration - - Weight 105.7 kg (233 lb) 07/25/2018 11:44 AM EST Height - - Body Mass Index 36.49 07/14/2018 4:11 PM EST documented in this encounter Progress Notes * Cleveland Torres MD - 07/25/2018 11:45 AM EST Patient is here for a 2-week follow-up. He had a peripheral nerve stimulator placed under direct vision by Dr. Wood. I removed his sutures. The incision was healing nicely without any signs of infection. I put Steri-Strips on it after cleaning it with Betadine. He will follow back up next week with the stimulator company [employer] for programming. documented in this encounter Plan of Treatment Upcoming Encounters Date Type Department Care Team (Late st Contact Info) Description 08/18/2024 10:30 AM EST Office [place] [address] Rodrigo Conteh MD [facility] [place] [address] documented as of this encounter Visit Diagnoses Diagnosis Ulnar neuropathy of right upper extremity Lesion of ulnar nerve Type 2 diabetes mellitus with hyperglycemia, with long-term current use of insulin Vitamin D insufficiency Unspecified vitamin D deficiency Dyslipidemia Other and unspecified hyperlipidemia documented in this encounter Care Teams Central Supply Nurse Relationship Specialty Start Date End Date Sravani Salas APRN [address] [place] [address] PCP - General Family Medicine 01/15/17 documented as of this encounter
--- OUTSIDE RECORDS SUMMARY | 2024-08-14 01:24 | XMS_ITS | Encounter Summary ---
[place] [address] Care Team Providers Care Maintainability Engineer Name Role Phone Sravani Salas APRN Primary Care Provider [phone] [phone] Encounter Details Date Type Department Care Team (Late st Contact Info) Description 01/30/2019 Notes [place] [address] Risa Sanderson Social History Tobacco Use Types Packs/Day Years [...] as of this encounter Progress Notes * Risa Sanderson - 01/30/2019 11:16 AM EDT Mariana Caruso, nurse test case developer, called to find out what Isiah Medrano's next steps are. She will fax request for his notes. Her direct phone number is [phone] Her direct fax number is [phone] documented in this encounter Plan of Treatment Upcoming Encounters Date Type Department Care Team (Late st Contact Info) Description 08/18/2024 10:30 AM EST Office Visit [place] [address] Rodrigo Conteh MD [facility] [place] [address] documented as of this encounter Visit Diagnoses Not on filedocumented in this encounter Care Teams Maintainability Engineer Relationship Specialty Start Date End Date Sravani Salas APRN [address] [place] [address] PCP - General Family Medicine 01/15/17 documented as of this encounter
--- OUTSIDE RECORDS SUMMARY | 2024-08-14 01:24 | XMS_ITS | Encounter Summary ---
Author Organization [facility] [place] [address] Care Team Providers Care Container Finishing Inspector Name Role Phone Sravani Salas HOUSE SHORER Primary Care Provider [phone] [phone] Encounter Details Date Type Department Care Team (Late st Contact Info) Description 02/18/2019 Orders [place] [address] Riky Corona MD [facility] [place] [address] Foreign body (FB) in soft tissue Social History Tobacco Use Types Packs/Day Years [...] 10:30 AM EST Office [place] [phone] Rodrigo Conteh MD [facility] [place] [address] documented as of this encounter Results * XR Elbow AP & Lateral view Right (03/17/2019 1:20 PM EDT) Anatomical Region Laterality Modality Elbow Right Digital Radiogra phy Impressions 03/17/2019 2:07 PM EDT FINDINGS/IMPRESSION: There is no acute fracture, no dislocation. Large enthesophyte formation is arising from the dorsal surface of the olecranon. There is a linear density in the volar ulnar soft tissues overlying the distal humerus. In addition, there is a second linear density within the ulnar soft tissues overlying the distal humerus. This measures 5.7 mm. Thank you for letting us participate in the care of this patient. For questions regarding this report, please contact the number below. ? Narrative 03/17/2019 2:07 PM EDT EXAMINATION: XR ELBOW AP AND LATERAL VIEW RIGHT CLINICAL HISTORY: Concern for metallic foreign body in patient scheduled for MRI TECHNIQUE: 2 views RIGHT elbow Frontal and lateral radiographs of the right elbow COMPARISON: 01/11/2015 Procedure Note Mary Forde MD - 03/17/2019 EXAMINATION: XR ELBOW AP AND LATERAL VIEW RIGHT CLINICAL HISTORY: Concern for metallic foreign body in patient scheduledfor MRI TECHNIQUE: 2 views RIGHT elbow Frontal and lateral radiographs of the right elbow COMPARISON: 01/11/2015 IMPRESSION FINDINGS/IMPRESSION: There is no acute fracture, no dislocation. Large enthesophyte formation is arising from the dorsal surface of the olecranon. There is a linear density in the volar ulnar soft tissues overlying thedistal humerus. In addition, there is a second linear density within the ulnar softtissues overlying the distal humerus. This measures 5.7 mm. Thank you for letting us participate in the care of this patient. Forquestions regarding this report, please contact the number below. Cleveland Torres MD IMG DX ORDERABLES documented in this encounter Visit Diagnoses Diagnosis Foreign body (FB) in soft tissue Residual foreign body in soft tissue Foreign body (FB) in soft tissue Residual foreign body in soft tissue Type 2 diabetes mellitus with hyperglycemia, with long-term current use of insulin Vitamin D insufficiency Unspecified vitamin D deficiency Dyslipidemia Other and unspecified hyperlipidemia documented in this encounter Care Teams Container Finishing Inspector Relationship Specialty Start Date End Date Sravani Salas APRN [address] [place] [address] PCP - General Family Medicine 01/15/17 documented as of this encounter
--- OUTSIDE RECORDS SUMMARY | 2024-08-14 01:24 | XMS_ITS | Encounter Summary ---
Author Organization [facility] [place] [address] Care Team Providers Care Refrigerator Room Clerk Name Role Phone Josue Sravani H CADY Primary Care Provider [phone] [phone] Reason for Visit * Reason Comments Follow Up Surgery 3 month f/u right ul jeremias neuropathy Encounter Details Date Type Department Care Team (Late st Contact Info) Description 09/27/2017 2:30 PM EST Office Visit [place] [address] [facility] [place] [address] Right arm pain Social History Tobacco Use Types Packs/Day Years [...] this encounter Patient Instructions * Patient Instructions* Galdino Covington MD - 09/27/2017 2:[address] Covington will talk with Dr. Torres about nerve stimulators documented in this encounter Progress Notes * Galdino Covington MD - 09/27/2017 2:30 PM EST Plastic Surgery Follow Up Note Reason for visit: F/U status post procedure Date of surgery: 08/31/16 Procedure(s): Right Ulnar Nerve Neurolysis and fat grafting Complications: None reported HPI: Pt arrives accompanied for today's visit to discuss his right arm pain. The patient had a visit with Dr. Torres in the pain clinic today and discussed doing a nerve stimulator for a treatment for his pain. Examination: Patient is alert, conversant, comfortable, Right arm Tender scar over right elbow with a positive Tinel's test Numbness in the little finger and the ulnar side of the little finger Numbness on the dorsal and ulnar side of his right hand 3/5 abduction of his fingers 3/5 flexion of the flexor digitorum of his little finger 3/5 flexion of the flexor Carpi Ulnaris Impression: Isiah Medrano is a 52 y.o. male who was seen today for follow-up after the above procedure. Please see the operative note for details. I will discuss the patient's pain with Dr. Torres to get the patient ready for nerve stimulators to help resolve his pain difficulties. The patient will be contacted after I discuss with Dr. Torres. Plan: 1. Dr. Covington will talk with Dr. Torres about nerve stimulators I, Sj Moreno, am acting as scribe for Dr. Covington. All work documented was performed by Dr. Covington. ???I performed the above scribed service and agree with the accuracy of the note?? GALDINO COVINGTON MD documented in this encounter Plan of Treatment Upcoming Encounters Date Type Department Care Team (Late st Contact Info) Description 08/18/2024 10:30 AM EST Office Visit [place] [address] [facility] [place] [address] documented as of this encounter Visit Diagnoses Diagnosis Right arm pain Pain in limb Type 2 diabetes mellitus with hyperglycemia, with long-term current use of insulin Vitamin D insufficiency Unspecified vitamin D deficiency Dyslipidemia Other and unspecified hyperlipidemia documented in this encounter Care Teams Refrigerator Room Clerk Relationship Specialty Start Date End Date Sravani Salas APRN [address] [place] [address] PCP - General Family Medicine 01/15/17 documented as of this encounter
--- OUTSIDE RECORDS SUMMARY | 2024-08-14 01:24 | XMS_ITS | Encounter Summary ---
Author Organization [facility] [place] [address] Care Team Providers Care Associate Professor Of Literacy Name Role Phone Sravani Salas APRN Primary Care Provider [phone] [phone] Reason for Referral * Consultation (Routine) - Closed Specialty Diagnoses / Procedures Referred By Nii t Referred To Contact Pain Management Diagnoses Pain of right upper extremity Galdino Covington MD [facility] [place] [place] [address] Cleveland Torres MD [facility] [place] [address] Referral ID Status Reason Start Date Expiration Date V isits Requested Visits Authorized [id number] Closed Consult, Test & Treat 12/09/2017 12/09/2018 1 1 Reason for Visit * Reason Comments Follow Up Surgery f/u right ulnar neur opathy Encounter Details Date Type Department Care Team (Late st Contact Info) Description 12/09/2017 8:15 AM EDT Office [place] [address] Galdino Covington MD [facility] [place] [address] Pain of right upper extremity Social History [...] as of this encounter Progress Notes * Galdino Covington MD - 12/09/2017 8:15 AM EDT Plastic Surgery Follow Up Note Reason for visit: F/U status post procedure Date of surgery: 08/31/16 Procedure(s): Right Ulnar Nerve Neurolysis and fat grafting Complications: None reported HPI: Pt returns to clinic for a follow up regarding his right arm pain. He is here with his elio's visit. He reports that he had a right ulnar nerve block to the upper part of his right arm.He states that this helped for a few minutes but then reports that the pain returned shortly thereafter. He has a hard time touching his little pinky on his right arm but after the block he was able to touch it. He has some anxiety due to his pain. Its hard to function on a daily basis. He has beenworking with Occupational Therapy. This is a worker's compensation injury. Examination: Patient is alert, conversant, comfortable, Right arm Tender scar over right elbow with a positive Tinel's test Present pain 8/10 Pain ring and little finger all the way up to elbow + Tinels at the elbow which radiates to ring and little finger Week FDP ring and little finger 3/5 abduction of fingers 4/5 FCU Impression: Isiah Medrano is a 52 y.o. male who was seen today for follow-up after the above procedure. Please see the operative note for details. Discussed with patient that since had some small short lived relief from the prior block that it may be beneficial to talk with Dr. Ha about proceeding with a DRG implant.(StimRouter) patient is interested. Discussed with the patient to continue to use his arm as much as possible on a daily basis to help with ROM. Plan: 1. Follow up with Dr. Ha to discuss DRG/StimRouter 2. Discontinue Physical Therapy 3. Continue to use his arm as much as you can. I, Raina Johnson, am acting as scribe for Dr. Covington. All work documented was performed by Dr. Covington. ???I performed the above scribed service and agree with the accuracy of the note?? GALDINO COVINGTON MD documented in this encounter Plan of Treatment Upcoming Encounters Date Type Department Care Team (Late st Contact Info) Description 08/18/2024 10:30 AM EST Office [place] [address] Rodrigo Conteh MD [facility] [place] [address] Scheduled Referrals Name Type Priority Associated Diagnoses Orde r Schedule Referral to Pain Clinic Outpatient Referral Routine Pain of right upper extremity Ordered: 12/09/2017 documented as of this encounter Visit Diagnoses Diagnosis Pain of right upper extremity Type 2 diabetes mellitus with hyperglycemia, with long-term current use of insulin Vitamin D insufficiency Unspecified vitamin D deficiency Dyslipidemia Other and unspecified hyperlipidemia documented in this encounter Care Teams Associate Professor Of Literacy Relationship Specialty Start Date End Date Sravani Salas, SEMICONDUCTOR WAFERS ETCHER STRIPPER [address] [place] [address] PCP - General Family Medicine 01/15/17 documented as of this encounter
--- OUTSIDE RECORDS SUMMARY | 2024-08-14 01:24 | XMS_ITS | Encounter Summary ---
Author Organization [facility] [place] [address] Care Team Providers Care Tubing Tester Name Role Phone Sravani Salas APRN Primary Care Provider [phone] [phone] Reason for Visit * Reason Comments Pain Management also BION[employer] Rep Encounter Details Date Type Department Care Team (Late st Contact Info) Description 10/29/2018 12:00 PM EST Office [place] [phone] Cleveland Torres MD [facility] [place] [address] Ulnar neuropathy of right upper extremity Social [...] Sign Reading Time Taken Comments Blood Pressure 138/90 10/29/2018 11:49 AM EST Pulse 89 10/29/2018 11:49 AM EST Temperature - - Respiratory Rate - - Oxygen Saturation 97% 10/29/2018 11:49 AM EST Inhaled Oxygen Concentration - - Weight 104.3 kg (230 lb) 10/29/2018 11:49 AM EST Height - - Body Mass Index 36.02 07/14/2018 4:11 PM EST documented in this encounter Progress Notes * Cleveland Torres MD - 10/29/2018 12:00 PM EST [facility] [place] [address] Phone: PAIN MANAGEMENT FOLLOW UP DATE OF VISIT 10/29/2018 Patient Isiah Medrano 1965 REFERRING PROVIDER Sravani Salas APRN [address] [place] [address] PRIMARY CARE PROVIDER Sravani Salas APRN CHIEF COMPLAINT: Right upper extremity pain HPI Isiah Medrano is a 53 y.o. male initially seen in the [facility] pain clinic for evaluation of ulnar neuropathy. He underwent a peripheral stimulator placement with myself and Dr. Wood in July. It hasnot really been working too well for him in fact he felt and have been causing more pain in the distribution of his ulnar nerve. He is here today with the [employer] guest relations representative for reprogramming. ADVERSE DRUG REACTIONS Allergies as of 10/29/2018 - Review Complete 10/29/2018 Allergen Reaction Noted ??? Eptifibatide Other (See Comments) ??? Amoxicillin Other (See Comments) 02/07/2017 MEDICATIONS Medications 10/29/18 1149 Medication Sig Taking? benzonatate (TESSALON) 200 mg Capsule TAKE 1 CAPSULE BY MOUTH 3 TIMES A DAY NEEDED FOR COUGH Yes insulin regular CONCENTRATE U-500 (HUMULIN R U-500) 500 unit/mL Solution Inject 150-175 Units subcutaneously 2 times daily. May adjust the dose up to 25 units until fasting BG at target of 90-180. Yes insulin U-500 syringe-needle 1/2 mL 31 gauge x 15/64 Syringe 1 each by [facility].(Non-Drug; Combo Route) route 2 times daily. THIS [...] by mouth 4 times daily as needed. Indications: pt takes 4.5 mg daily Yes [...] times daily. Use as instructed Yes Insulin [place], Disposable, (BD INSULIN PEN NEEDLE UF MINI) [...] meals). Yes PHYSICAL EXAMINATION Most Recent Vitals: 10/29/18 1149 BP: 138/90 Pulse: 89 SpO2: 97% PainSc: 6 Body mass index is 36.02 kg/m??. BP 138/90 Pulse 89 Wt 104.3 kg (230 lb) No flowsheet data found. Impression: Chronic ulnar neuropathy right upper extremity Recommendations: #1 Medications: No changes at this time #2 Procedures: None at this time. I did recommend that once he has exhausted all possibilities withthe Stim Router and he finds he is not getting any relief or is making it worse and he should make an appointment to see me again to consider other options one other option would be cervical spinal cord stimulator or possibly a cervical dorsal root ganglion stimulator. If a DRG stimulator was the option considered I would refer him out. He will follow-up with me as needed. I spent 15 of 25 minutes in [id number] discussion regarding plan of care with patient. Isiah Medrano had the opportunity to ask questions and indicated that all questions were answered to their satisfaction. documented in this encounter Plan of Treatment Upcoming Encounters Date Type Department Care Team (Late st Contact Info) Description 08/18/2024 10:30 AM EST Office [place] [address] Rodrigo Conteh MD [facility] [place] [address] documented as of this encounter Visit Diagnoses Diagnosis Ulnar neuropathy of right upper extremity Lesion of ulnar nerve Type 2 diabetes mellitus with hyperglycemia, with long-term current use of insulin Vitamin D insufficiency Unspecified vitamin D deficiency Dyslipidemia Other and unspecified hyperlipidemia documented in this encounter Care Teams Tubing Tester Relationship Specialty Start Date End Date Sravani Salas APRN [address] [place] [address] PCP - General Family Medicine 01/15/17 documented as of this encounter
--- OUTSIDE RECORDS SUMMARY | 2024-08-14 01:24 | XMS_ITS | Encounter Summary ---
Author Organization [facility] [place] [address] Care Team Providers Care Qa Intern Name Role Phone Sravani Salas APRN Primary Care Provider [phone] [phone] Encounter Details Date Type Department Care Team (Late st Contact Info) Description 02/18/2019 Telephone Pain Management at [place] [phone] Terri Chicas RN Social History Tobacco Use [...] 10:30 AM EST Office Visit Endocrinology at [place] [phone] Rodrigo Conteh MD [facility] [place] [address] documented as of this encounter Visit Diagnoses Not on filedocumented in this encounter Care Teams Qa Intern Relationship Specialty Start Date End Date Sravani Salas APRN [address] [place] [address] PCP - General Family Medicine 01/15/17 documented as of this encounter
--- OUTSIDE RECORDS SUMMARY | 2024-08-14 01:24 | XMS_ITS | Encounter Summary ---
[place] [address] Care Team Providers Care Pediatric Nurse Name Role Phone Sravani Salas APRN Primary Care Provider [phone] [phone] Reason for Visit * Reason Onset Date Comments Pre Procedure Call 11/20/2017 Encounter Details Date Type Department Care Team (Late st Contact Info) Description 11/20/2017 Telephone [place] [address] Vaishali Coleman LNA Pre Procedure Call Social History Tobacco Use Types Packs/Day Years [...] Telephone Encounter - Vaishali Coleman LNA - 11/20/2017 10:02 AM EDT Isiah Medrano :1965 Message left: I left a message on answering machine Mr. Medrano at 10:02 AM regarding his upcoming Ultrasound Guided Ulnar Nerve Block with Dr. Cleveland Torres MD. Message included the followin. Patient instructed to arrive at 12:45PM on 11/22/2017 with their cross country truck driver. 2. Following instructions left in the message: - Bring Updated list of medications including dosage and reason for taking. - Call the Pain Clinic Nurse at for: ~Procedure instructions. ~If you are taking antibiotics. ~If you have any signs or symptoms of infection, cold or flu. ~If you have any skin breakdown (rashes, cysts, or abscess.) ~If you are taking anticoagulants / blood thinners (Plavix, Pletal, Lovenox, Coumadin, etc). ~If you had any steroid injections anywhere in your body within the last two weeks? WOLF Lyn documented in this encounter Plan of Treatment Upcoming Encounters Date Type Department Care Team (Late st Contact Info) Description 08/18/2024 10:30 AM EST Office [place] [address] Rodrigo Conteh MD [facility] [place] [address] documented as of this encounter Visit Diagnoses Not on filedocumented in this encounter Care Teams Pediatric Nurse Relationship Specialty Start Date End Date Sravani Salas APRN [address] [place] [address] PCP - General Family Medicine 01/15/17 documented as of this encounter
--- OUTSIDE RECORDS SUMMARY | 2024-08-14 01:24 | XMS_ITS | Encounter Summary ---
[place] [address] Care Team Providers Care Transportation Manager Name Role Phone Sravani Salas Silas CADY Primary Care Provider [phone] [phone] Encounter Details Date Type Department Care Team (Late st Contact Info) Description 11/27/2017 Telephone [place] [address] Guera Jalloh RN Social History Tobacco Use [...] Telephone Encounter - Guera Jalloh RN - 11/27/2017 8:30 AM EDT Incoming call from patients she states I am calling because patient had a procedure with on Saturday and the block did not work at all my is saying his pain is a 10/10 and the pain is awful Nurse asks if the patient would like a follow up appointment with Dr. Torres or follow up with Dr. Wood whom referred the patient to pain clinic. Patients states We are goingto give Dr. Wood a call and have him follow up there first then we will call back and let you knowthe plan Nurse agrees with this plan and will await call back from patient or his . documented in this encounter Plan of Treatment Upcoming Encounters Date Type Department Care Team (Late st Contact Info) Description 08/18/2024 10:30 AM EST Office [place] [address] Rodrigo Conteh MD [facility] [place] [address] documented as of this encounter Visit Diagnoses Not on filedocumented in this encounter Care Teams Transportation Manager Relationship Specialty Start Date End Date Sravani Salas APRN [address] [place] [address] PCP - General Family Medicine 01/15/17 documented as of this encounter
--- OUTSIDE RECORDS SUMMARY | 2024-08-14 01:24 | XMS_ITS | Encounter Summary ---
Author Organization [facility] [place] [address] Care Team Providers Care Warp Clamper Name Role Phone Josue Sravani Silas CADY Primary Care Provider [phone] [phone] Encounter Details Date Type Department Care Team (Late st Contact Info) Description 12/26/2018 3:30 PM EDT Office [place] [address] Rodrigo Conteh MD [facility] [place] [address] Type 2 diabetes, uncontrolled, with neuropathy Social History Tobacco Use Types [...] Sign Reading Time Taken Comments Blood Pressure 124/66 12/26/2018 3:31 PM EDT Pulse 115 12/26/2018 3:31 PM EDT Temperature - - Respiratory Rate - - Oxygen Saturation - - Inhaled Oxygen Concentration - - Weight 102.1 kg (225 lb) 12/26/2018 3:31 PM EDT Height 167.6 cm (5' 6) 12/26/2018 3:31 PM EDT Body Mass Index 36.32 12/26/2018 3:31 PM EDT documented in this encounter Patient Instructions * Patient Instructions* Rodrigo Conteh MD - 12/26/2018 3:30 PM EDT Start using Tasha CGM for close monitoring of BG To use U-500 20 units in AM and 30 units in PM. Ok to adjust by 5 units if needed to keep BG 100-200 range See you again in 3 mo with lab Orders Placed This Encounter Procedures ??? Hemoglobin A1c ??? Vitamin D, 25-Hydroxy ??? Basic Metabolic Panel (non-fasting) documented in this encounter Progress Notes * Rodrigo Conteh MD - 12/26/2018 3:30 PM EDT Endocrine Clinic Name: [facility] : 1965 Date: 12/26/2018 PCP: Sravani Salas APRN Reason for visit: Follow-up uncontrolled diabetes type 2 (quit victoza in December 2016 due to high cost) and switched from Lantus/Humalog to U-500 insulin BID since 06/04/17 for high A1c 11.5% (07/01/17) => 10.1% on 08/11/17 => 7.7% on 06/16/18 with better control but now back up high again at 11.5%. Diabetes treatment regimen: Glimiperide 4 mg bid and Metformin 1000 mg bid (admitted that he missedAM dosing often) U500 pen 175 units in PM (i.e. 35u on the syring for U-500 with 5x more concentrated insulin). *Supposed to take U-500 150 units in AM (30 units on the syringe) but admitted that he missed the AM dose a lot FSBG: checking FSBG 3-4x/day - His (RN) has serious concern about low BG so he simply cut U-500 insulin BID to qPM and never had low BG again but generally high BGs in 200s-300s often. Most recent HA1c: 11.5% today (was 7.7% on 06/16/18, 10.2% on 08/11/17, 11.5% on 07/01/17, 9..2% inAug'16, 11.5% on 09/15/15, 12.4% 06/10/15 , 14.6% on 06/19/13 and 9.5% on 02/24/13) Ref. Range 02/24/2013 13:09 06/19/2013 13:57 06/10/2015 12:30 09/15/2015 12:06 04/03/2016 10:15 Hemoglobin A1C Range: 4.3 - 5.6 % 9.5 (H) 14.6 (H) 12.4 (H) 11.5 (H) 9.2 (H) => 11.5%=> 10.2%(08/11/17) => 7.7% (06/16/18) => 11.5% today Hypoglycemia during the interval time: some low in 40s-60s and then better after he cut back U-500 from bid to qPM. When he is getting low, he noted sweating and shakiness but sometimes did not feel low at night suggestive of hypoglycemic unawareness. Diet: low fat/low carb diet Exercise: walking Complications: no changes during the interim. Prevention: same as last visit recently. He had to quit using victoza in December 2016 due to high cost ($150/mo) and his A1c initially went downquickly after using U-500 BID injection since Jun 2017 (from 11.5% to 7s% range). However, his A1c bounced back high again when he missed AM dose often and will need BID dosing since U-500 does not last 24h. He will need Tasha CGM to help monitor BG closely to be able to keep A1c and BG down safely. He used to have severe hypoglycemia requiring 911 call last year so his (RN) does not want him to have low BG again so he rather kept BG at the high end resulting in very high A1c again today. He knows that good DM control is critical for prevention of DM complication and slow down further progression of neuropathy and ED. He already had the 3rd surgery of his Rt ulnar nerve in 2015 and can use CGM over the left upper arm. He cannot resume taking celias for ED if he is using NTG sl and denies no angina or active cardiac issues. He may need to see urologist for intracorporal injection or vaccuum to help with his ED. Denies any changes in vision, no CP, SOB, GI issues, leg swelling or [...] ??? Pain of right upper extremity M79.601 Current Outpatient Medications on File Prior to Visit Medication Sig Dispense Refill ??? benzonatate (TESSALON) 200 mg Capsule TAKE 1 CAPSULE BY MOUTH 3 TIMES A DAY NEEDED FOR COUGH0 ??? insulin regular CONCENTRATE U-500 (HUMULIN R [...] times daily. Indications: 400mg three times daily ??? CHOLECALCIFEROL, VITAMIN D3, (VITAMIN D3 ORAL) Take 1 tablet by mouth daily. ??? isosorbide mononitrate (IMDUR) 30 mg Tablet Sustained Release 24 hr Take 30 mg by mouth daily. ??? nitroGLYcerin (NITROSTAT) 0.4 mg Tablet, Sublingual Place 0.4 mg under the tongue every 5 minutes as needed for Chest pain. prn ??? Insulin Syringe-Needle U-100 0.5 mL 31 gauge x 5/16 Syringe 1 each by Misc.(Non-Drug; Combo Route) route 2 times daily. 100 Syringe 11 ??? NALTREXONE HCL (NALTREXONE ORAL) Take 1 mg by mouth 4 times daily as needed. Indications: pt takes 4.5 mg daily ??? DULoxetine (CYMBALTA) 60 mg Capsule, Delayed Release(E.C.) Take 60 mg by mouth daily. ??? pen needle, diabetic (NOVOFINE PLUS) 32 gauge x 1/6 Needle 1 each by Misc.(Non-Drug; Combo Route) route 4 times daily as needed. 100 each 11 ??? traZODone (DESYREL) 50 mg Tablet Take 50-100 mg by mouth nightly. ??? allopurinol (ZYLOPRIM) 300 mg Tablet Take 300 mg by mouth daily. ??? aspirin 325 mg Tablet Take 325 mg by mouth daily. ??? gabapentin (NEURONTIN) 300 mg Capsule Take 3,600 mg by mouth daily. 3 ??? lisinopril (PRINIVIL;ZESTRIL) 20 mg Tablet Take 40 mg by mouth daily. ??? magnesium oxide (MAG-OX) 400 mg Tablet Take 400 mg by mouth daily. 3 ??? multivitamin (THERAGRAN) Tablet Take 1 tablet by mouth daily. ??? atorvastatin (LIPITOR) 40 mg Tablet Take 40 mg by mouth daily. ??? meTOPROLOL succinate (TOPROL-XL) 25 mg Tablet Sustained Release 24 hr Take 50 mg by mouth daily. ??? glimepiride (AMARYL) 4 mg Tablet Take 1 tablet by mouth 2 times daily. 180 tablet 3 ??? Blood Sugar Diagnostic (ONE TOUCH ULTRA TEST) test strip 1 each by Other route 4 times daily. Use as instructed 400 each 3 ??? Insulin [place], Disposable, (BD INSULIN PEN NEEDLE UF MINI) 31 x 3/16 Ndle by Other route. 1box = 100 insulin PEN needles. 1 Box 11 ??? Insulin Syringe-Needle U-100 (BD INSULIN SYRINGE ULT-FINE II) 1 mL 31 x 5/16 Syrg 1 each by [facility]Non-Drug; Combo Route) route 2 times daily (before meals). 100 each 11 ??? [DISCONTINUED] metFORMIN (GLUCOPHAGE) 500 mg tablet Take 1,000 mg by mouth 2 times daily (with meals). No current facility-administered medications on file prior to visit. Allergies Allergen Reactions ??? Eptifibatide Other (See Comments) thrombocytopenia ??? Amoxicillin Other (See Comments) Unknown Social History Socioeconomic History ??? Marital status: Spouse name: None ??? Number of children: None ??? Years of education: None ??? Highest education level: None Occupational History ??? None Social Needs ??? Financial resource strain: None ??? Food insecurity: Worry: None Inability: None ??? Transportation needs: Medical: None Non-medical: None Tobacco Use ??? Smoking status: Never Smoker ??? Smokeless tobacco: Former User Types: Chew Substance and Sexual Activity ??? Alcohol use: No ??? Drug use: No ??? Sexual activity: None Lifestyle ??? Physical activity: Days per week: None Minutes per session: None ??? Stress: None Relationships ??? Social connections: Talks on phone: None Gets together: None Attends voodoo service: None Active member of club or organization: None Attends meetings of clubs or organizations: None Relationship status: None ??? Intimate partner violence: Fear of current or ex partner: None Emotionally abused: None Physically abused: None Forced sexual activity: None Other Topics Concern ??? None Social History Narrative ??? None FAMILY HISTORY Family History Problem Relation Age of Onset ??? Diabetes Brother Physical exam BP 124/66 Pulse (!) 115 Ht 167.6 cm (5' 6) Wt 102.1 kg (225 lb) BMI 36.32 kg/m?? Appearance: mildly obese, pleasant, NAD, here with [...] 7%s at OSH 7.7 (H) 11.5 (H) Chol, Total Range: <=199 mg/dL 192 HDL Range: >=40 mg/dL 37 (L) LDL Chol Direct Latest Units: mg/dL 114 (H) 63 TSH 0.27 - 4.20 mcIU/mL 1.03 1.37 C-Peptide Range: 1.1 - 4.4 ng/mL 7.3 (H) Recent Results (from the past 24 hour(s)) Hemoglobin A1c Result Value Ref Range Hemoglobin A1C 11.5 (H) 4.3 - 5.6 % Est Avg Gluc 283 mg/dL Assessment: 53 y.o. man with severe insulin resistance and type 2 Diabetes - worsening control after he quit taking U500 insulin in AM and mainly using once daily in PM (instead of BID) due to concern about having low BG. He used to get A1c down from 11.5% on 07/01/17 to 7s% range during the interim but now back to 11.5% again. He responded to U-500 pen well as he can give much smaller volume of insulin withbetter insulin absorption. He is still having high c-peptide 7.3 from his own insulin production sowe will cont oral agents to reduce insulin need (victoza was too costly $150/mo even with insurancecoverage). He has private insurance and can afford Tasha CGM to help closely monitor BG and is willing to use it to be able to take U-500 lowered dose BID safely. Complication Risk Status: + complications present with painful peripheral neuropathy and ED, and some degree of hypoglycemic unawareness especially at night. Also, treated for CAD s/p stent RCA in 01/07 at young age of 42, HTN, Chol, gout and asymptomatic ontreatment. He had 3rd surgery for Rt ulnar nerve transposition surgery (1st surgery and 2nd & 3rd surgeries in 2015). Plan: 1. Medication: Adjustment of diabetes treatment regimen: To use U-500 insulin vial lowered dose 150 units qPM and also low dose 100 units in AM ((20-30 units on the syringe BID instead of qPM alone) and allow him to adjust the dose by 5-10 units until fasting BG at target of 90-180 range (Not victoza or Trulicity pen due to cost) To cont glimiperide 4 mg bid and metforminER 1000 mg bid (and try not to miss the AM dosing). To check FSBG tid ac & hs and more often when he starts using Tasha CGM soon ok to give Humalog kwickpen sliding scale p.r.n if BG>180 based on 1u:10BG ratio (or to simply titrate U-500 insulin at this initial step) To eat controlled carb diet to prevent too high or low BG until his islets recover well making insulin. To continue all other medications and cont taking OTC-B12 1,000 mcg po qd as well for neuropathy and also OTC-vitD 2,000 iu daily. 2. Monitoring: to check FSBG before each meal and at bedtime. Target BG 90-180 while fasting and 90-180 pre-meal during daytime Target A1c < 8% (in 7% range) for this patient and ~7-8% as his target. 3. Diet and exercise: low fat/controlled carb diet & exercise as tolerated to keep weight down or at least stable. Patient will keep log of blood glucose and insulin used for review at next visit. 4. Lab: Already checked lab as above. 5. RTC: Next visit in 3 months. Will check HbA1c, BMP and 25vitD at the time (pt will send a copy of lab results for lipids, 25vitD and recent urine microalbumin/Cr at local lab for our documentationas well). We have reviewed our plan outlined above [...] 10:30 AM EST Office [place] [address] Rodrigo Conteh MD [facility] [place] [address] documented as of this encounter Visit Diagnoses Diagnosis Type 2 diabetes, uncontrolled, with neuropathy Type II or unspecified type diabetes mellitus with neurological manifestations, uncontrolled Type 2 diabetes mellitus with hyperglycemia, with long-term current use of insulin Vitamin D insufficiency Unspecified vitamin D deficiency Dyslipidemia Other and unspecified hyperlipidemia documented in this encounter Care Teams Warp Clamper Relationship Specialty Start Date End Date Sravani Salas, DATA COLLECTOR [address] [place] [address] PCP - General Family Medicine 01/15/17 documented as of this encounter
--- OUTSIDE RECORDS SUMMARY | 2024-08-14 01:24 | XMS_ITS | Encounter Summary ---
Author Organization [facility] [place] [address] Care Team Providers Care Wrapping Machine Tender Name Role Phone Sravani Salas APRN Primary Care Provider [phone] [phone] Reason for Visit * Reason Onset Date Comments Medication Refill 10/20/2018 Encounter Details Date Type Department Care Team (Late st Contact Info) Description 10/20/2018 Refill [place] [address] Gloria Oropeza RN Social History Tobacco Use Types Packs/Day [...] 10:30 AM EST Office [place] [address] Rodrigo Conteh MD [facility] DR ENDOCRINOLOGY [address] documented as of this encounter Visit Diagnoses Not on filedocumented in this encounter Care Teams Wrapping Machine Tender Relationship Specialty Start Date End Date Sravani Salas APRN [address] [place] [address] PCP - General Family Medicine 01/15/17 documented as of this encounter
--- OUTSIDE RECORDS SUMMARY | 2024-08-14 01:24 | XMS_ITS | Encounter Summary ---
Author Organization [facility] [place] [address] Care Team Providers Care Felt Puller Name Role Phone Sravani Salas APRN Primary Care Provider [phone] [phone] Encounter Details Date Type Department Care Team (Late st Contact Info) Description 01/28/2019 11:00 AM EDT Notes [place] [address] Social History Tobacco Use Types Packs/Day Years [...] 10:30 AM EST Office [place] [phone] Rodrigo Conteh MD [facility] [place] [address] documented as of this encounter Visit Diagnoses Not on filedocumented in this encounter Care Teams Felt Puller Relationship Specialty Start Date End Date Sravani Salas APRN [address] [place] [address] PCP - General Family Medicine 01/15/17 documented as of this encounter
--- OUTSIDE RECORDS SUMMARY | 2024-08-14 01:24 | XMS_ITS | Encounter Summary ---
Author Organization [facility] [place] [address] Care Team Providers Care Employment Services Director Name Role Phone Sravani Salas APRN Primary Care Provider [phone] [phone] Encounter Details Date Type Department Care Team (Latest Contact Info) Description 03/17/2019 1:09 PM EDT - 03/17/2019 2:40 PM EDT Hospital Encounter XRay at [address] [place] [address] Cleveland Torres MD [facility] [place] [address] Foreign body (FB) in soft tissue Discharge Disposition: Home Social History Tobacco Use [...] gauge x 5/16 Syringe 1 each by [facility].(Non-Drug; Combo Route) route 2 times daily. 100 Syringe 11 07/02/2017 NALTREXONE HCL (NALTREXONE ORAL)Indications:pt takes 4.5 mg daily Take 1 mg by mouth 4 times daily as needed (pain). Indications: pt takes 4.5 mg daily pen needle, diabetic (NOVOFINE PLUS) 32 gauge x 1/6 Needle [facility]Non-Drug; Combo Route) route 4 times daily as [...] scanning reader (FREESTYLE NEAL 14 DAY READER) [facility] As instructed 1 each 1 12/26/2018 09/08/2019 [...] mg by mouth daily. 05/23/2015 09/08/2019 Insulin [place], Disposable, (BD INSULIN PEN NEEDLE UF MINI) 31 x 3/16 Ndle by Other route. 1 box = 100 insulin PEN needles. 1 Box [address] 02/24/2013 06/15/2019 documented as of this encounter Plan of Treatment Upcoming Encounters Date Type Department Care Team (Late st Contact Info) Description 08/18/2024 10:30 AM EST Office [place] [address] Rodrigo Conteh MD [facility] [place] [address] documented as of this encounter Procedures Procedure Name Priority Date/Time Associated Diagnosis Comments XR ELBOW 2 VIEWS RIGHT Routine 03/17/2019 1:20 PM EDT Foreign body (FB) in soft tissue documented in this encounter Results * XR Elbow AP [...] this report, please contact the number below. Electronically signed by: ELENA Fraser [facility]([phone]), at 03/17/2019 2:07 PM Cleveland Torres MD IMG DX ORDERABLES documented in this encounter Visit Diagnoses Diagnosis Foreign body (FB) in soft tissue Residual foreign body in soft tissue Type 2 diabetes mellitus with hyperglycemia, with long-term current use of insulin Vitamin D insufficiency Unspecified vitamin D deficiency Dyslipidemia Other and unspecified hyperlipidemia documented in this encounter Care Teams Employment Services Director Relationship Specialty Start Date End Date Sravani Salas, SUPERVISOR ASSEMBLY [address] [place] [address] PCP - General Family Medicine 01/15/17 documented as of this encounter
--- OUTSIDE RECORDS SUMMARY | 2024-08-14 01:24 | XMS_ITS | Encounter Summary ---
Author Organization [facility] [place] [address] Care Team Providers Care Engineering Model Maker Name Role Phone Sravani Salas APRN Primary Care Provider [phone] [phone] Encounter Details Date Type Department Care Team (Latest Contact Info) Description 12/26/2018 2:30 PM EDT Laboratory Appointment Lab [address] [place] [address] Type 2 diabetes, controlled, with neuropathy Social [...] EST Office [place] [address] Rodrigo Conteh MD [facility] [place] [place] [address] documented as of this encounter Procedures Procedure Name Priority Date/Time Associated Diagnosis Comments HEMOGLOBIN A1C Routine 12/26/2018 2:17 PM EDT Type 2 diabetes, controlled, with neuropathy documented in this encounter Results * (ABNORMAL) Hemoglobin A1c (12/26/2018 2:17 PM EDT) Hemoglobin A1c 11.5(H) 4.3 - 5.6 % [facility] [...] 36: Suppl. 1, S67-74 Estimated Average Glucose 283 mg/dL [facility] Comment: [...] into estimated average glucose values. ??Diabetes Care 2008:31(8):3802-7014. Blood specimen (specimen) 12/26/2018 2:17 PM EDT 12/26/2018 2:24 PM EDT Narrative Resulting Agency Comment Spec In Lab Rodrigo Conteh MD CHEMISTRY ORDERAB LES [facility] [place] [address] documented in this encounter Visit Diagnoses Diagnosis Type 2 diabetes, controlled, with neuropathy Type II or unspecified type diabetes mellitus with neurological manifestations, not stated as uncontrolled Type 2 diabetes mellitus with hyperglycemia, with long-term current use of insulin Vitamin D insufficiency Unspecified vitamin D deficiency Dyslipidemia Other and unspecified hyperlipidemia documented in this encounter Care Teams Engineering Model Maker Relationship Specialty Start Date End Date Sravani Salas APRN [address] [place] [address] PCP - General Family Medicine 01/15/17 documented as of this encounter
--- OUTSIDE RECORDS SUMMARY | 2024-08-14 01:24 | XMS_ITS | Encounter Summary ---
Author [facility] [address] Care Team Providers Care Engineering Operations Leader Name Role Phone Sravani Salas APRN Primary Care Provider [phone] [phone] Encounter Details Date Type Department Care Team (Late st Contact Info) Description 03/27/2019 Transcribe [place] [phone] Sravani Salas APRN [address] [place], [place] [id number] Leg cramp Social History Tobacco Use Types [...] AM EST Office Visit [place] [address] Rodrigo Conteh MD [facility] DR ENDOCRINOLOGY [place], [place] [id number] Scheduled Orders Name Type Priority Associated Diagnoses Orde r Schedule Lab Use Only, Fax Request Lab Routine Leg cramp Expected: 03/27/2019 (Approximate), Expires: 03/27/2020 documented as of this encounter Results * (ABNORMAL) Magnesium (04/07/2019 12:06 PM EDT) Magnesium 0.67(L) 0.69 - 1.07 mmol/L [facility] Blood specimen (specimen) 04/07/2019 12:06 PM EDT 04/07/2019 12:13 PM EDT Narrative Resulting Agency Comment Spec In Lab Sravani Salas APRN CHEMISTRY ORDERAB LES [facility] [place] [address] documented in this encounter Visit Diagnoses Diagnosis Leg cramp Cramp of limb Type 2 diabetes mellitus with hyperglycemia, with long-term current use of insulin Vitamin D insufficiency Unspecified vitamin D deficiency Dyslipidemia Other and unspecified hyperlipidemia documented in this encounter Care Teams Engineering Operations Leader Relationship Specialty Start Date End Date Sravani Salas APRN [address] [place] [address] PCP - General Family Medicine 01/15/17 documented as of this encounter
--- OUTSIDE RECORDS SUMMARY | 2024-08-14 01:24 | XMS_ITS | Encounter Summary ---
Author Organization [facility] [place] [address] Care Team Providers Care Pipe Fitter Apprentice Name Role Phone Sravani Salas APRN Primary Care Provider [phone] [phone] Reason for Visit * Reason Comments Pain Management Right Shoulder Pain * Consultation (Routine) - Closed Specialty Diagnoses / Procedures Referred By Contac t Referred To Contact Pain Management Diagnoses Right arm pain Galdino Wood MD [facility] [place] [address] Cleveland Torres MD [facility] [place] [address] Referral ID Status Reason Start Date Expiration Date V isits Requested Visits Authorized [id number] Closed Consult, Test & Treat 07/01/2017 07/01/2018 1 1 Encounter Details Date Type Department Care Team (Late st Contact Info) Description 09/27/2017 1:45 PM EST Office Visit [place] [address] Cleveland Torres MD [facility] [place] [address] Ulnar neuropathy of right upper extremity Social [...] Sign Reading Time Taken Comments Blood Pressure 146/88 09/27/2017 1:32 PM EST Pulse 90 09/27/2017 1:32 PM EST Temperature - - Respiratory Rate - - Oxygen Saturation 97% 09/27/2017 1:32 PM EST Inhaled Oxygen Concentration - - Weight 93 kg (205 lb) 09/27/2017 1:32 PM EST melissa bal Height 170.2 cm (5' 7) 09/27/2017 1:32 PM EST Body Mass Index 32.11 09/27/2017 1:32 PM EST documented in this encounter Progress Notes * Cleveland Torres MD - 09/27/2017 1:45 PM EST [facility] [place] [address] Phone: PAIN MANAGEMENT FOLLOW UP DATE OF VISIT 09/27/2017 Patient Isiah Medrano 1965 REFERRING PROVIDER Galdino Wood MD [facility] [place] [address] PRIMARY CARE PROVIDER Sravani Salas, CADY CHIEF COMPLAINT: Right upper extremity pain HPI Isiah Medrano is a 52 y.o. 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 ADVERSE DRUG REACTIONS Allergies as of 09/27/2017 - Review Complete 09/27/2017 Allergen Reaction Noted ??? Eptifibatide Other (See Comments) ??? Amoxicillin Other (See Comments) 02/07/2017 MEDICATIONS Medications 09/27/17 1345 Medication Sig Taking? isosorbide mononitrate (IMDUR) 30 mg Tablet Sustained Release 24 hr Take 30 mg by mouth daily. Yes nitroGLYcerin (NITROSTAT) 0.4 mg Tablet, Sublingual Place 0.4 mg under the tongue every 5 minutes as needed for Chest pain. Yes insulin regular CONCENTRATE U-500 (HUMULIN R U-500) 500 unit/mL Solution Inject 100-150 Units subcutaneously 2 times daily. E.g. 0.2 ml looks like 20U on regular insulin syringe to make 100 units of insulin dosage Yes Insulin Syringe-Needle U-100 0.5 mL 31 gauge x 5/16 Syringe 1 each by [facility].(Non- Drug; Combo Route) route 2 times daily. Yes NALTREXONE HCL (NALTREXONE ORAL) Take 1 mg by mouth 4 times daily as needed. Yes DULoxetine (CYMBALTA) 60 mg Capsule, Delayed Release(E.C.) Take 60 mg by mouth daily. Yes pen needle, diabetic (NOVOFINE PLUS) 32 gauge x 1/6 Needle 1 each by [facility].(Non- Drug; Combo Route) route 4 times daily [...] times daily. Use as instructed Yes Insulin [place], Disposable, (BD INSULIN PEN NEEDLE UF [...] meals). Yes PHYSICAL EXAMINATION Most Recent Vitals: 09/27/17 1332 BP: 146/88 Pulse: 90 SpO2: 97% PainSc: 7 Body mass index is 32.11 kg/(m^2). BP 146/88 Pulse 90 Ht 170.2 cm (5' 7) Wt 93 kg (205 lb) SpO2 97% BMI 32.11 kg/m2 No flowsheet data found. Impression: Right ulnar nerve injury/neuritis. Complex regional pain type II Recommendations: #1 Medications: No change recommended #2 Procedures: I think a neuro augmentative approach is reasonable. There is a relatively new device by [employer] called the stim router which is a peripheral nerve stimulator that is powered externally. I told the patient have not done one of these. It looks like it would be a good option for him and that I am going to contact the safety representative from the company to find out the protocol to use and whether a trial is necessary. From my understanding it is placed under ultrasound guidance. Given his previous surgery might be reasonable to do this under direct vision. I will discuss this with Dr. Wood as well. I told Mr. Medrano and his as soon as I get some more information I will be in contact with himand Dr. Wood to come up with a plan. I spent 20 of 25 minutes in naly-hb-alid discussion regarding plan of care with the patient. Isiah Medrano had the opportunity to ask questions and indicated that all questions were answered to their satisfaction. documented in this encounter Plan of Treatment Upcoming Encounters Date Type Department Care Team (Late st Contact Info) Description 08/18/2024 10:30 AM EST Office Visit [place] [address] Rodrigo Conteh MD [facility] [place] [address] Scheduled Referrals Name Type Priority Associated Diagnoses Orde r Schedule Referral to Pain Clinic Outpatient Referral Routine Right arm pain Ordered: 07/01/2017 documented as of this encounter Visit Diagnoses Diagnosis Ulnar neuropathy of right upper extremity Lesion of ulnar nerve Type 2 diabetes mellitus with hyperglycemia, with long-term current use of insulin Vitamin D insufficiency Unspecified vitamin D deficiency Dyslipidemia Other and unspecified hyperlipidemia documented in this encounter Care Teams Pipe Fitter Apprentice Relationship Specialty Start Date End Date Sravani Salas APRN [address] [place] [address] PCP - General Family Medicine 01/15/17 documented as of this encounter
--- OUTSIDE RECORDS SUMMARY | 2024-08-14 01:24 | XMS_ITS | Encounter Summary ---
Author Organization [facility] [place] [address] Care Team Providers Care Swabber Name Role Phone Sravani Salas APRN Primary Care Provider [phone] [phone] Encounter Details Date Type Department Care Team (Late st Contact Info) Description 07/14/2018 Telephone [place] [phone] Kenneth Morrison LNA Social History Tobacco Use [...] 10:30 AM EST Office Visit Endocrinology at [place] [phone] Rodrigo Conteh MD [facility] [address] documented as of this encounter Visit Diagnoses Not on filedocumented in this encounter Care Teams Swabber Relationship Specialty Start Date End Date Sravani Salas APRN [address] [place] [address] PCP - General Family Medicine 01/15/17 documented as of this encounter
--- OUTSIDE RECORDS SUMMARY | 2024-08-14 01:24 | XMS_ITS | Encounter Summary ---
[place] [address] Care Team Providers Care Motor Route Carrier Name Role Phone Josue Sravani H CADY Primary Care Provider [phone] Encounter Details Date Type Department Care Team (Late st Contact Info) Description 03/23/2019 Telephone [place] [phone] Cleveland Torres MD [facility] [place] [address] Social History Tobacco Use Types Packs/Day Years [...] Telephone Encounter - Cleveland Torres MD - 03/23/2019 9:33 AM EDT I spoke to the patient and gave him the results of his MRI of his thoracic and cervical spine. There should be no reason we can proceed with a spinal cord stimulator. A mass probably a cyst was notedon the right kidney. I spoke to his PCP Butserisrael and she will schedule an ultrasound for him as recommended by radiology. documented in this encounter Plan of Treatment Upcoming Encounters Date Type Department Care Team (Late st Contact Info) Description 08/18/2024 10:30 AM EST Office [place] [address] Rodrigo Conteh MD [facility] [place] [address] documented as of this encounter Visit Diagnoses Not on filedocumented in this encounter Care Teams Motor Route Carrier Relationship Specialty Start Date End Date Sravani Salas APRN [address] [place] [address] PCP - General Family Medicine 01/15/17 documented as of this encounter
--- OUTSIDE RECORDS SUMMARY | 2024-08-14 01:24 | XMS_ITS | Encounter Summary ---
Author [facility] [place] [address] Care Team Providers Care Control Equipment Electrician Name Role Phone Sravani Salas APRN Primary Care Provider [phone] [phone] Encounter Details Date Type Department Care Team (Late st Contact Info) Description 10/29/2018 12:00 PM EST Notes Only Pain Management at [place] [phone] Social History Tobacco Use Types Packs/Day Years [...] 10:30 AM EST Office Visit Endocrinology at [place] [phone] Rodrigo Conteh MD [facility] [place] [address] documented as of this encounter Visit Diagnoses Not on filedocumented in this encounter Care Teams Control Equipment Electrician Relationship Specialty Start Date End Date Sravani Salas APRN [address] [place] [address] PCP - General Family Medicine 01/15/17 documented as of this encounter
--- OUTSIDE RECORDS SUMMARY | 2024-08-14 01:24 | XMS_ITS | Encounter Summary ---
Author Organization [facility] [place] [address] Care Team Providers Care Surgical Forceps Fabricator Name Role Phone Sravani Salas APRN Primary Care Provider [phone] [phone] Encounter Details Date Type Department Care Team (Late st Contact Info) Description 03/28/2018 4:00 PM EDT Notes [place] [phone] Social History Tobacco Use Types Packs/Day Years [...] 10:30 AM EST Office [place] [address] Rodrigo Conteh MD [facility] [place] [address] documented as of this encounter Visit Diagnoses Not on filedocumented in this encounter Care Teams Surgical Forceps Fabricator Relationship Specialty Start Date End Date Sravani Salas APRN [address] [place] [address] PCP - General Family Medicine 01/15/17 documented as of this encounter
--- OUTSIDE RECORDS SUMMARY | 2024-08-14 01:24 | XMS_ITS | Encounter Summary ---
[place] [address] Care Team Providers Care Heel Seat Filler Name Role Phone Eleuterio Salasgm Rosen CADY Primary Care Provider [phone] [phone] Encounter Details Date Type Department Care Team (Late st Contact Info) Description 11/20/2017 Telephone [place] [phone] Guera Jalloh RN Social History Tobacco Use [...] Telephone Encounter - Guera Jalloh RN - 11/20/2017 1:08 PM EDT Isiah Medrano :1965 Contact made with patient: I spoke to Lisa Mr. Medrano at 1:08 PM regarding his upcoming Ultrasound Guided Ulnar Nerve Block scheduled on 11/22/17 (date) scheduled at 1:15 (time) with Dr. Cleveland Torres MD. Medication and Allergy reconciliation: 1. Changes were made in the telephone encounter per patient; marked as reviewed, and closed. 2. Patient confirmed no IVP dye allergy. 3. Have you had any steroid injections anywhere in your body within the last two weeks? no Arrival time: The patient was instructed to arrive at 1245 (30 minutes prior to procedure start time - 60 minutesprior for RF patients with a pacemaker) on 11/22/17 (date of procedure). Color Separation Photographer: The patient was reminded that they need to have a piledriver carpenter accompany them to his procedure who will [...] vomiting. 5. The patient confirmed that he isstill experiencing significant pain. (Significant pain is defined as interfering with performing ADL.) Pain and Anti-anxiety Medications: 1. Nerve Block [...] history of any diagnosed bleeding disorders: No Anticoagulants: No Diabetic instructions: Patient was advised to inform their PCP regarding safe fasting and the NPO requirements for their upcoming procedure and given the Pain Management Center Nurse Triage Line . Implant: Patient has pacemaker/defibrillator: No Prior to checking in at [employer] Scheduler, please be sure to empty your bladder. Patient confirmed understanding that if they do not follow the above their instructions, their procedure is likely to be cancelled. Guera Jalloh RN documented in this encounter Plan of Treatment Upcoming Encounters Date Type Department Care Team (Late st Contact Info) Description 08/18/2024 10:30 AM EST Office [place] [address] Rodrigo Conteh MD [facility] [place] [address] documented as of this encounter Visit Diagnoses Not on filedocumented in this encounter Care Teams Heel Seat Filler Relationship Specialty Start Date End Date Sravani Salas APRN [address] [place] [address] PCP - General Family Medicine 01/15/17 documented as of this encounter
--- OUTSIDE RECORDS SUMMARY | 2024-08-14 01:24 | XMS_ITS | Encounter Summary ---
[place] [address] Care Team Providers Care Loan Service Officer Name Role Phone Josue Sravani H CADY Primary Care Provider [phone] [phone] Encounter Details Date Type Department Care Team (Late Contact Info) Description 06/09/2018 Telephone [place] [phone] Melissa Addison RN Social History Tobacco Use Types Packs/Day [...] encounter Miscellaneous Notes * Telephone Encounter - Melissa Addison RN - 06/09/2018 1:13 PM EDT I received a fax from [facility] for renewal of Mr. Medrano's naltrexone. I called Mr. Medrano to ask if the naltrexone is helping and he said it it helping with his pain. Mr. Medrano states he is having an SCS placed soon but he would like the medication renewed for help with pain while waiting for his surgery. Provider notified. documented in this encounter Plan of Treatment Upcoming Encounters Date Type Department Care Team (Late st Contact Info) Description 08/18/2024 10:30 AM EST Office [place] [address] Rodrigo Conteh MD [facility] [place] [address] documented as of this encounter Visit Diagnoses Not on filedocumented in this encounter Care Teams Loan Service Officer Relationship Specialty Start Date End Date Sravani Salas APRN [address] [place] [address] PCP - General Family Medicine 01/15/17 documented as of this encounter
--- OUTSIDE RECORDS SUMMARY | 2024-08-14 01:24 | XMS_ITS | Encounter Summary ---
[place] [address] Care Team Providers Care Stock Preparer Name Role Phone Sravani Salas APRN Primary Care Provider [phone] Encounter Details Date Type Department Care Team (Late st Contact Info) Description 07/14/2018 Telephone [place] [phone] Raina Johnson Social History Tobacco Use Types [...] * Telephone Encounter - Raina Johnson - 07/14/2018 2:04 PM EST Patient and his called this morning regarding Isiah's post operative pain issues since having surgery with Dr. Torres and Dr. Wood recently. Patient was not sure who was responsible in managinghis pain control issues since he had two services (Pain Clinic and Plastic Surgery participating [facility]). Jane spoke to Dr. Wood and it was decided that patient should be talking with Dr. She barillas's team. I did call patient back and explain this to them. Mrs. Medrano asked that I call the PainClinic to advise them that they would be going to the ED concerning Isiah's brother and was hopeful to stop by the Pain Clinic to talk with a nurse or provider to help with pain control. I did call the Pain Clinic and expressed the patients concerns to nursing staff. The Pain Clinic is aware that the patient will be stopping to their clinic sometimes this afternoon. documented in this encounter Plan of Treatment Upcoming Encounters Date Type Department Care Team (Late st Contact Info) Description 08/18/2024 10:30 AM EST Office [place] [address] Rodrigo Conteh MD [facility] [place] [address] documented as of this encounter Visit Diagnoses Not on filedocumented in this encounter Care Teams Stock Preparer Relationship Specialty Start Date End Date Sravani Salas APRN [address] [place] [address] PCP - General Family Medicine 01/15/17 documented as of this encounter
--- OUTSIDE RECORDS SUMMARY | 2024-08-14 01:24 | XMS_ITS | Encounter Summary ---
[place] [address] Care Team Providers Care Installation Drafter Name Role Phone Josue Sravani Rosen CADY Primary Care Provider [phone] [phone] Encounter Details Date Type Department Care Team (Late st Contact Info) Description 02/26/2018 Notes [place] [phone] Alberta Gamez, [facility] [place] [address] Social History Tobacco Use Types Packs/Day Years [...] as of this encounter Progress Notes * Alberta Gamez - 02/26/2018 6:56 AM EDT Patient was discussed at the Analgesic Implantation Committee on 02/26/18 and received 5 excellent votes to proceed with ulnar nerve stimulator with Dr. Torres and Dr. Wood. documented in this encounter Plan of Treatment Upcoming Encounters Date Type Department Care Team (Late st Contact Info) Description 08/18/2024 10:30 AM EST Office [place] [phone] Rodrigo Conteh MD [facility] [place] [address] documented as of this encounter Visit Diagnoses Not on filedocumented in this encounter Care Teams Installation Drafter Relationship Specialty Start Date End Date Sravani Salas APRN [address] [place] [address] PCP - General Family Medicine 01/15/17 documented as of this encounter
--- OUTSIDE RECORDS SUMMARY | 2024-08-14 01:24 | XMS_ITS | Encounter Summary ---
Author Organization [facility] [place] [address] Care Team Providers Care Rail Grinder Name Role Phone Josue Sravani Silas CADY Primary Care Provider [phone] Encounter Details Date Type Department Care Team (Late st Contact Info) Description 06/16/2018 1:30 PM EDT Office Visit [place] [address] Rodrigo Conteh MD [facility] [place] [address] Type 2 diabetes, controlled, with neuropathy Social [...] Sign Reading Time Taken Comments Blood Pressure 144/92 06/16/2018 1:30 PM EDT Pulse 95 06/16/2018 1:30 PM EDT Temperature - - Respiratory Rate - - Oxygen Saturation - - Inhaled Oxygen Concentration - - Weight 105.7 kg (233 lb) 06/16/2018 1:30 PM EDT Height 172.7 cm (5' 8) 06/16/2018 1:30 PM EDT Body Mass Index 35.43 06/16/2018 1:30 PM EDT documented in this encounter Patient Instructions * Patient Instructions* Rodrigo Conteh MD - 06/16/2018 1:30 PM EDT Recent Results (from the past 24 hour(s)) LDL Cholesterol, Direct Result Value Ref Range LDL Chol Direct 63 mg/dL Hemoglobin A1c Result Value Ref Range Hemoglobin A1C 7.7 (H) 4.3 - 5.6 % Est Avg Gluc 174 mg/dL Plan: 1. Medication: Adjustment of diabetes treatment regimen: To cont U-500 insulin vial 150-175u BID (30-35 units on the syringe) and allow him to adjust the dose up to 25u if needed (by 5 units on the syringe) until fasting BG at target of 90-180 range (ok not to use victoza or Trulicity pen due to cost) To cont glimiperide 4 mg bid and metformin 1000 mg bid To check FSBG tid ac & hs and ok to give Humalog kwickpen sliding scale [...] next visit. 4. Lab: Already checked lab last week as above. 5. RTC: Next visit in 6 months. Will check both HbA1c and 25vitD at the time (pt will send a copy of lab results for lipids, 25vitD and recent urine microalbumin/Cr at local lab for our documentationas well). documented in this encounter Progress Notes * Rodrigo Conteh MD - 06/16/2018 1:30 PM EDT Endocrine Clinic Name: [facility] : 1965 Date: 06/16/2018 PCP: Sravani Salas APRN Reason for visit: Follow-up uncontrolled diabetes type 2 (quit victoza in December 2016 due to high cost) and switched from Lantus/Humalog to U-500 insulin BID since 06/04/17 for high A1c 11.5% (07/01/17) => 10.1% on 08/11/17 with much better control 7%s range. Diabetes treatment regimen: Metformin 1000 mg bid and glimiperide 4 mg bid U500 pen 175 units in AM and PM (i.e. 35u on the syring for U-500 with 5x more concentrated insulin). FSBG: checking FSBG more often 3-4x/day with BG typically in 100s Most recent HA1c: 7.7% today (was 10.2% on 08/11/17, 11.5% on 07/01/17, 9..2% in , 11.5% on 09/15/15, 12.4% 06/10/15 , 14.6% on 06/19/13 and 9.5% on 02/24/13) Ref. Range 02/24/2013 13:09 06/19/2013 13:57 06/10/2015 12:30 09/15/2015 12:06 04/03/2016 10:15 Hemoglobin A1C Range: 4.3 - 5.6 % 9.5 (H) 14.6 (H) 12.4 (H) 11.5 (H) 9.2 (H) => 11.5%=> 10.2%(08/11/17) => 7.7% today Hypoglycemia during the interval time: some low in 40s-60s and then better after he cut back U-500 from 200 u bid to 175u bid. When he is getting low, he noted sweating or shakiness Diet: low fat/low carb diet Exercise: walking Complications: no changes during the interim. Prevention: same as last visit recently. He had to quit using victoza in December 2016 due to high cost ($150/mo) and his A1c is down quickly after using U-500 BID injection only since Jun 2017 (from 11.5% to 7s% range) He knows that good DM control is critical for nerve healing and it will also prevent further progression of neuropathy and ED. He had the 3rd redo surgery of his ulnar nerve in . He will check with mechanical product engineer if he can resume taking celias for ED since he is no longer using NTG sl and no angina or active cardiac issues. He [...] to Visit Medication Sig Dispense Refill ??? Ibuprofen 200 mg Capsule Take 400 [...] as needed for Chest pain. prn ??? insulin regular CONCENTRATE U-500 (HUMULIN R U-500) 500 unit/mL Solution Inject 100-150 Units subcutaneously 2 times daily. E.g. 0.2 ml looks like 20U on regular insulin syringe to make 100 unitsof insulin dosage 20 mL 11 ??? Insulin Syringe-Needle U-100 0.5 mL 31 gauge x 16 Syringe 1 each by [facility].(Non-Drug; Combo Route) route 2 times daily. 100 Syringe 11 ??? NALTREXONE HCL (NALTREXONE ORAL) Take 1 mg by mouth 4 times daily as needed. ??? DULoxetine (CYMBALTA) 60 mg Capsule, Delayed [...] ??? gabapentin (NEURONTIN) 300 mg Capsule Take 1,200 mg by mouth every 4 hours. 3 ??? lisinopril (PRINIVIL;ZESTRIL) 20 mg Tablet Take 20 mg by mouth daily. ??? magnesium oxide [...] as instructed 400 each 3 ??? Insulin [place], Disposable, (BD INSULIN PEN NEEDLE UF MINI) 31 x 3/16 Ndle by Other route. 1box = 100 insulin PEN needles. 1 Box 11 ??? metFORMIN (GLUCOPHAGE) 500 mg tablet Take 1,000 mg by mouth 2 times daily (with meals). ??? Insulin Syringe-Needle U-100 (BD INSULIN SYRINGE [...] education: None ??? Highest education level: None Social Needs ??? Financial resource strain: None ??? Food insecurity - worry: None ??? Food insecurity - inability: None ??? Transportation needs - medical: None ??? Transportation needs - non-medical: None Occupational History ??? None Tobacco Use ??? Smoking status: Never Smoker ??? Smokeless tobacco: Former User Types: Chew Substance and Sexual Activity ??? Alcohol use: No ??? Drug use: No ??? Sexual activity: None Other Topics Concern ??? None Social History Narrative ??? None FAMILY HISTORY Family History Problem Relation Age of Onset ??? Diabetes Brother Physical exam BP (!) 144/92 Pulse 95 Ht 172.7 cm (5' 8) Wt 105.7 kg (233 lb) BMI 35.43 kg/m?? Appearance: mildly obese, pleasant, NAD, here with his HEENT: DANYELLE THOMSON Neck: no goiter Abdomen: benign, NT, ND Ext: no pitting edema no foot ulcer Rt arm with bandage s/p Rt ulnar nerve transposition surgery Neuro: no weakness Results for REID MEDRANO ( ) Ref. Range 04/03/2016 10:15 Hemoglobin A1C Latest Ref Range: 4.3 - 5.6 % 9.2 (H) Est Avg Gluc Latest Units: mg/dL 217 Vitamin B-12 Latest Ref Range: 207 - 974 pg/mL 600 TSH Latest Ref Range: 0.27 - 4.20 mcIU/mL 1.37 C-Peptide Latest Ref Range: 1.1 - 4.4 ng/mL 7.3 (H) Outside lab 08/11/17 A1c 10.2% Normal CMP except for low Ca 8.3 and low Mg 1.5 CK -neg Recent Results (from the past 24 hour(s)) LDL Cholesterol, Direct Result Value Ref Range LDL Chol Direct 63 mg/dL Hemoglobin A1c Result Value Ref Range Hemoglobin A1C 7.7 (H) 4.3 - 5.6 % Est Avg Gluc 174 mg/dL Assessment: 53 y.o. man with severe insulin resistance and type 2 Diabetes - improving control after he quit taking Lanstus/Humalog/victoza to U500 insulin with A1c down from 11.5% on 07/01/17 to 7s% range during the interim (ictoza was too costly $150/mo even with insurance coverage). He responded to U-500 pen well as he can give much smaller volume of insulin with better insulin absorption. He is still having high c-peptide 7.3 from his own insulin production so we will cont oral agents to reduce insulinneed for him further. Complication Risk Status: + complications present with painful peripheral neuropathy and ED. Also, treated for CAD s/p stent RCA in 01/07 at young age of 42, HTN, Chol, gout and asymptomatic ontreatment. He had redo surgery 3rd time in for Rt ulnar nerve transposition surgery (1st surgery and 2nd surgery in ). Plan: 1. Medication: Adjustment of diabetes treatment regimen: To cont U-500 insulin vial 150-175u BID (30-35 units on the syringe) and allow him to adjust the dose up to 25u if needed (by 5 units on the syringe) until fasting BG at target of 90-180 range (ok not to use victoza or Trulicity pen due to cost) To cont glimiperide 4 mg bid and metformin 1000 mg bid To check FSBG tid ac & hs and ok to give Humalog kwickpen sliding scale [...] next visit. 4. Lab: Already checked lab last week as above. 5. RTC: Next visit in 6 months. Will check both HbA1c and 25vitD at the time (pt will [...] 10:30 AM EST Office Visit [place] [address] Rodrigo Conteh MD [facility] [place] [place] [address] documented as of this encounter Results * (ABNORMAL) Hemoglobin A1c (12/26/2018 2:17 PM EDT) Hemoglobin A1c 11.5(H) 4.3 - 5.6 % [facility] Comment: Reference Range: 4.3 - [...] 1, S67-74 Estimated Average Glucose 283 mg/dL [facility] Comment: eAG equivalents for HbA1c [...] into estimated average glucose values. ??Diabetes Care 2008:31(8):3445-9505. Blood specimen (specimen) 12/26/2018 2:17 PM EDT 12/26/2018 2:24 PM EDT Narrative Resulting Agency Comment Spec In Lab Rodrigo Conteh MD CHEMISTRY ORDERAB LES [facility] [place] [address] documented in this encounter Visit Diagnoses Diagnosis Type 2 diabetes, controlled, with neuropathy Type II or unspecified type diabetes mellitus with neurological manifestations, not stated as uncontrolled Type 2 diabetes mellitus with hyperglycemia, with long-term current use of insulin Vitamin D insufficiency Unspecified vitamin D deficiency Dyslipidemia Other and unspecified hyperlipidemia documented in this encounter Care Teams Rail Grinder Relationship Specialty Start Date End Date Sravani Salas APRN [address] [place] [address] PCP - General Family Medicine 01/15/17 documented as of this encounter
--- OUTSIDE RECORDS SUMMARY | 2024-08-14 01:24 | XMS_ITS | Encounter Summary ---
[facility] [place] [address] Care Team Providers Care Pharmacy General Manager Name Role Phone Sravani Salas APRN Primary Care Provider [phone] Encounter Details Date Type Department Care Team (Late st Contact Info) Description 01/30/2019 Orders Only [place] [phone] Risa Sanderson Social History Tobacco Use Types [...] 10:30 AM EST Office [place] [phone] Rodrigo Conteh MD [facility] [place] [address] documented as of this encounter Visit Diagnoses Not on filedocumented in this encounter Care Teams Pharmacy General Manager Relationship Specialty Start Date End Date Sravani Salas APRN [address] [place] [address] PCP - General Family Medicine 01/15/17 documented as of this encounter
--- OUTSIDE RECORDS SUMMARY | 2024-08-14 01:25 | XMS_ITS | Encounter Summary ---
Author Organization [facility] [place] [address] Care Team Providers Care Head Still Operator Name Role Phone Sravani Salas APRN Primary Care Provider [phone] Reason for Visit * Reason Onset Date Comments Medication Refill 07/03/2017 Encounter Details Date Type Department Care Team (Late st Contact Info) Description 07/03/2017 [place] [phone] Rodrigo Conteh MD [facility] [place] [address] Social History Tobacco Use Types Packs/Day Years [...] 10:30 AM EST Office [place] [phone] Rodrigo Conteh MD [facility] [place] [address] documented as of this encounter Visit Diagnoses Not on filedocumented in this encounter Care Teams Head Still Operator Relationship Specialty Start Date End Date Sravani Salas APRN [address] [place] [address] PCP - General Family Medicine 01/15/17 documented as of this encounter
--- OUTSIDE RECORDS SUMMARY | 2024-08-14 01:25 | XMS_ITS | Encounter Summary ---
Author Organization [facility] [place] [address] Care Team Providers Care Image Assembler Name Role Phone Linda Galeano MD Primary Care Provider [phone] Encounter Details Date Type Department Care Team (Latest Contact Info) Description 04/03/2016 10:05 AM EDT Laboratory Appointment Lab [address] [place] [phone] Type 2 diabetes, uncontrolled, with neuropathy; Chronic fatigue Social History Tobacco Use Types Packs/Day Years [...] 10:30 AM EST Office [place] [address] Rodrigo Conteh MD [facility] DR ENDOCRINOLOGY [place] [id number] documented as of this encounter Procedures Procedure Name Priority Date/Time Associated Diagnosis Comments C-PEPTIDE Routine 04/03/2016 10:15 AM EDT TSH Routine 04/03/2016 10:15 AM EDT Chronic fatigue HEMOGLOBIN A1C Routine 04/03/2016 10:15 AM EDT Type 2 diabetes, uncontrolled, with neuropathy VITAMIN B12 Routine 04/03/2016 10:15 AM EDT Type 2 diabetes, uncontrolled, with neuropathy documented in this encounter Results * (ABNORMAL) C-peptide (04/03/2016 10:15 AM EDT) C-Peptide 7.3(H) 1.1 - 4.4 ng/mL [facility] Comment: Test Performed by: [place] [id number] Traffic Circuit Engineer: Finn Mcnamara II, M.D., Ph.D. Blood specimen (specimen) Venous Draw / Unknown 04/03/2016 10:15 AM EDT 04/03/2016 3:05 PM EDT Narrative Resulting Agency Comment Spec In Lab Rodrigo Conteh MD CHEMISTRY ORDERAB LES [facility] [place] [address] * TSH (04/03/2016 10:15 AM EDT) [facility] Thyroid Stimulating Hormone 1.37 0.27 - 4.20 mcIU/mL [facility] Blood specimen (specimen) 04/03/2016 10:15 AM EDT 04/03/2016 10:25 AM EDT Narrative Resulting Agency Comment Spec In Lab Rodrigo Conteh MD CHEMISTRY ORDERAB LES [facility] [place] [address] * (ABNORMAL) Hemoglobin A1c (04/03/2016 10:15 AM EDT) Pathologist [facility] Hemoglobin A1c 9.2(H) 4.3 - 5.6 % [facility] [...] 36: Suppl. 1, S67-74 Estimated Average Glucose 217 mg/dL [facility] Comment: eAG equivalents for HbA1c percentages: HbA1c(%) ?eAG(mg/dL) 6.0 ?126 6.5 ?140 7.0 ?154 7.5 ?169 8.0 ?183 8.5 ?197 9.0 ?212 9.5 ?226 10.0 ? 240 Limitations: The eAG calculation has not been validated on women, individuals below 18 years old and above 70 years old, and individuals with hemoglobinopathies. Additional resources are available on the ADA website: http://MakeSpace.com/DHMCadacalc Tony WALTERS, Harmeet J, Jj R, et al. ??Translating the A1C assay into estimated average glucose values. ??Diabetes Care 2008:31(8):5789-4591. Blood specimen (specimen) 04/03/2016 10:15 AM EDT 04/03/2016 10:25 AM EDT Narrative Resulting Agency Comment Spec In Lab Rodrigo Conteh MD CHEMISTRY ORDERAB LES [facility] [place] [address] * Vitamin B12 (04/03/2016 10:15 AM EDT) Vitamin B12 600 207 - 974 pg/mL [facility] Blood specimen (specimen) 04/03/2016 10:15 AM EDT 04/03/2016 10:25 AM EDT Narrative Resulting Agency Comment Spec In Lab Rodrigo Conteh MD CHEMISTRY ORDERAB LES [facility] [place] [address] documented in this encounter Visit Diagnoses Diagnosis Type 2 diabetes, uncontrolled, with neuropathy Type II or unspecified type diabetes mellitus with neurological manifestations, uncontrolled Chronic fatigue Other malaise and fatigue Type 2 diabetes mellitus with hyperglycemia, with long-term current use of insulin Vitamin D insufficiency Unspecified vitamin D deficiency Dyslipidemia Other and unspecified hyperlipidemia documented in this encounter Care Teams Image Assembler Relationship Specialty Start Date End Date Linda Galeano MD [address] [place] [address] PCP - General 07/25/10 01/14/17 documented as of this encounter
--- OUTSIDE RECORDS SUMMARY | 2024-08-14 01:25 | XMS_ITS | Encounter Summary ---
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 Procedures Continues to struggle with burning pain. Sravani Salas APRN [address] [place] [address] [facility] [address] [place] [id number] Referral ID Status Reason Start Date Expiration Date V isits Requested Visits Authorized [id number] Closed Consult, Test & Treat Connection Center 01/15/2017 01/15/2018 1 1 Encounter Details Date Type Department Care Team (Late st Contact Info) Description 02/07/2017 10:30 AM EDT Office [place] [phone] Sandra Hatch APRN [facility] [place] [address] Ulnar neuropathy of right upper extremity Social [...] Sign Reading Time Taken Comments Blood Pressure 137/81 02/07/2017 10:28 AM EDT Pulse 68 02/07/2017 10:28 AM EDT Temperature - - Respiratory Rate - - Oxygen Saturation 98% 02/07/2017 10:28 AM EDT Inhaled Oxygen Concentration - - Weight 90.7 kg (200 lb) 02/07/2017 10:28 AM EDT Height 170.2 cm (5' 7) 02/07/2017 10:28 AM EDT Body Mass Index 31.32 02/07/2017 10:28 AM EDT documented in this encounter Progress Notes * Sandra Hatch, CADY - 02/07/2017 10:30 AM EDT [facility] [place] [address] Phone: PAIN MANAGEMENT FOLLOW UP DATE OF VISIT 02/07/2017 Patient Isiah Medrano 1965 REFERRING PROVIDER Sravani Salas APRN [address] [place] [address] PRIMARY CARE PROVIDER Sravani Salas APRN Opioid agreement signed date: With PCP Most recent UDT results and date: With PCP [place] and [place] Prescription Monitoring Program were checked & no concerns identified. ORT score and date: 1 depression only, 02/07/2017 Naloxone discussed? Not discussed Home storage of opioids: He stores on the counter and we discussed locking them up TREATMENT GOAL: To determine if there is anything that we can do to help him with his ulnar neuropathy on the right-hand side. CHIEF COMPLAINT: Right sided pain in the elbow, lateral forearm and last 2 ulnar digits HPI Isiah Medrano is a 52 y.o. male initially seen in the [facility] pain clinic for ulnar neuropathy. He wasinjured at work when he fell and hit his elbow jan 10 2015. He underwent a ulnar transposition [facility], subsequently came here and was seen by Dr. Wood who did a second procedure andthen a third procedure involving the fact graft in number of last year. He's had no relief from anyof his surgeries. He is maintained his level of discomfort and try to alleviate his symptoms with gabapentin which she takes 3600 mg a day, OxyContin 15 mg twice a day and oxycodone 5 mg daily. He also uses lidocaine cream. He finds that he is not able to use his arm and so he's been using his leftarm more and is becoming more adept at it. He's been doing physical therapy and has done here at therapy and is really not improving. He normally would be doing things such as hunting and riding his 4 mahoney with his 16-year-old sonbut is unable to do these activities because of his hand. Activities of daily living: He is unable to use his right hand Adverse Effects: None PAIN ASSESSMENT: Description: Right pain in the elbow area, skipping the proximal forearm and arriving in the distalforearm and last 2 ulnar digits. His other parts of his hands are weaker because he is using it much and he has some swelling there but he had only has pain in the area above. Saddle Anesthesia: No Other associated symptoms: Weakness Alleviating factors: Rest and medication Aggravating factors: Using the hand* He reports the pain medication only helps minimally. He finds the symptoms distressful. He does notsee counselor. ADVERSE DRUG REACTIONS Allergies as of 02/07/2017 - Review Complete 02/07/2017 Allergen Reaction Noted ??? Eptifibatide Other (See Comments) ??? Amoxicillin Other (See Comments) 02/07/2017 MEDICATIONS Medications 12/03/16 1434 Medication Sig Taking? traZODone (DESYREL) 50 mg Tablet Take 50-100 mg by mouth nightly. Yes allopurinol (ZYLOPRIM) 300 mg Tablet Take 300 mg by mouth daily. Yes aspirin 325 mg Tablet Take 325 mg by mouth daily. Yes FLUoxetine (PROZAC) 20 mg Tablet Take 20 mg by mouth daily. Yes oxyCODONE (ROXICODONE) 5 mg Tablet Take 1 tablet by mouth every 4 hours as needed for Pain. Patient taking differently: Take 5 mg by mouth daily. Yes insulin aspart protamine-insulin aspart 70/30 (NOVOLOG MIX 70/30 PEN) Insulin Pen Inject 2-20 unitssubcutaneously 4 times daily as needed for high blood sugar >200 Yes sildenafil (VIAGRA) 50 mg Tablet Take 1 tablet by mouth as needed for Erectile Dysfunction. Yes gabapentin (NEURONTIN) 300 mg Capsule Take 900 mg by mouth every 3 hours. Yes lisinopril (PRINIVIL;ZESTRIL) 20 mg Tablet Take 20 mg by mouth daily. Yes magnesium oxide (MAG-OX) 400 mg Tablet Take 400 mg by mouth daily. Yes Insulin Lispro (HUMALOG KWIKPEN) 100 unit/mL Insulin Pen Inject 1-10 Units subcutaneously 4 times daily as needed (per sliding scale). 1 box of 5 pens free with coupon Yes liraglutide (VICTOZA) 0.6 mg/0.1 mL (18 mg/3 mL) Pen Injector Inject 1.8 mg subcutaneously daily. Yes multivitamin (THERAGRAN) Tablet Take 1 [...] times daily. Use as instructed Yes Insulin [place], Disposable, (BD INSULIN PEN NEEDLE UF MINI) [...] route 2 times daily (before meals). Yes OXYCONTIN 15 mg tablet,oral only,ext.rel.12 hr Take 15 mg by mouth 2 times daily. lidocaine (XYLOCAINE) 5 % Ointment Apply topically 2 times daily. CURRENT THERAPIES: Tylenol OxyContin 15 mg twice a day Oxycodone 5 mg daily Gabapentin 3600 mg a day Lidocaine ointment Fluoxetine PAST THERAPIES: Acetaminophen:yes NSAID: no NSAIDS , DIABETIC Opioids:yes Storage of opioids: on counter, discussed locking bix Antidepressants:fluoxetine Anticonvulsants:gabapentin Muscle relaxants: no Topicals:lidocaine Herbal supplements/vitamins:no Injections:no Surgery:3 and considering a forth Physical Therapy: twice a week TENS: no Acupuncture:no Chiropractic:no Massage: no CBT,Meditation/Imagery:no Yoga/Duran Chi/ Movement:no Marijuana:not interested mirror thereapy REVIEW OF SYSTEMS: (includes adverse effects of opioids) Constitutional: denies fever, chills, cough, signs of infection, weight changes, fatigue HEENT: denies headaches, blurry/limited vision Cardiac:denies chest pain or pressure, palpitations Lungs: denies SOB on exertion GI: denies nausea, vomiting, acid reflux, constipation, or loss of control : denies urinary hesitation, retention or incontinence Neuro: denies dizziness, numbness, seizures, tremors, sedation, memory loss, confusion Muscle skeletal: denies use of ambulatory aide, falls Skin: denies open sores or rashes Psychological/Mood: variable, no SI Sleep:Sleep apnea:poor, takes trazedone FUNCTIONAL /SOCIAL Lives with: 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 Working around the house RISK ASSESSMENT: Smoking:no Alcohol:How often did you have a drink containing alcohol in the past year? Never (0 points) Monthly or less (1 point) Two to four times a month (2 points) Two to three times per week (3 points) Four or more times a week (4 points) Addiction Behaviors Checklist (NA = not assessed) Addiction behaviors--since last visit 1. Patient used illicit drugs or evidences problem drinking* no 2. Patient has hoarded meds no 3. Patient used more narcotic than prescribed no 4. Patient ran out of meds early no 5. Patient has increased use of narcotics no 6. Patient used analgesics PRN when prescription is for time contingent use no 7. Patient received narcotics from more than one provider no 8. Patient bought meds on the streets no Addiction behaviors--within current visit 1. Patient appears sedated or confused (e.g., slurred speech, unresponsive) no 2. Patient expresses worries about addiction no 3. Patient expressed a strong preference for a specific type of analgesic or a specific route of administration no 4. Patient expresses concern about future availability of narcotic no 5. Patient reports worsened relationships with family no 6. Patient misrepresented analgesic prescription or use no 7. Patient indicated she or he ?needs? or ?must have? analgesic meds no 8. Discussion of analgesic meds was the predominant issue of visit no 9. Patient exhibited lack of interest in rehab or self-management no 10. Patient reports minimal/inadequate relief from narcotic analgesic no 11. Patient indicated difficulty with using medication agreement no Other 1. Significant others express concern over patient???s use of analgesics no ABC Score: _0 Score of >=3 indicates possible inappropriate opioid use and should flag for further examinationof specific signs of misuse and more careful patient monitoring (i.e., urine screening, pill counts, removal of opioid). Aberent behaviors: none ORT score 1 ( depression) PHYSICAL EXAMINATION Vitals: 02/07/17 1028 BP: 137/81 Pulse: 68 Body mass index is 31.32 kg/(m^2). BP 137/81 Pulse 68 Ht 170.2 cm (5' 7) Wt 90.7 kg (200 lb) SpO2 98% BMI 31.32 kg/m2 No flowsheet data found. Appearance/ Behavior / Affect Well groomed, good eye contact, relaxed, cooperative, normal speech, no acute distress, no involuntary movements Eyes Sclera anicteric, conjunctiva clear. 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 He has painful sensation to light touch in the right compared to the left. There is some noticeable swelling in the right hand but there is no hair loss or any signs indicative of CRPS. ASSESSMENT Chronic right ulnar neuropathy, status post 3 surgeries and considering a fourth. PLAN/RECOMMENDATIONS We discussed the following recommendations: Unfortunately I feel like there is very little else we have to offer him. Unfortunately don't feel that injections are likely to help him. I've discussed this with Dr. Jem Michel in the clinic and hecannot recommend a specific injection. I also spoke with him about such things as occupational therapy but after discussing that he is Arty doing mirror therapy on not certain that he did get up better result from occupational therapist as opposed to a physical therapist. We discussed trials of acupuncture. We also discussed a neuropathic pain cream which I will order for him from the [facility] pharmacy in [place]. We have discussed a referral to the gap assessment at the functional pentecostalism program once he is completed any surgical interventions and I described that program to him as well. I described the process as well. Finally we talked about cognitive behavioral therapy and helping him with his mindfulness techniques and I've given him a copy of the front page of a book called the opiate free pain relief kit by Anny Delgado PhD and she writes about mindfulness and cognitive behavioral therapy and his self-help book. We discussed that he could use this by himself or with a counselor. If he is interested in functional pentecostalism, he will get back to me and I would be happy to help him with that process. He also discussed that I don't think further opiates would help him as they are not really helping him that much to begin with and higher doses might preclude him getting good pain relief further surgeries that he understands this. documented in this encounter Plan of Treatment Upcoming Encounters Date Type Department Care Team (Late st Contact Info) Description 08/18/2024 10:30 AM EST Office [place] [address] [facility] [place] [address] documented as of this encounter Visit Diagnoses Diagnosis Ulnar neuropathy of right upper extremity Lesion of ulnar nerve Type 2 diabetes mellitus with hyperglycemia, with long-term current use of insulin Vitamin D insufficiency Unspecified vitamin D deficiency Dyslipidemia Other and unspecified hyperlipidemia documented in this encounter Care Teams Bucket Pusher Relationship Specialty Start Date End Date Sravani Salas APRN [address] [place] [address] PCP - General Family Medicine 01/15/17 documented as of this encounter
--- OUTSIDE RECORDS SUMMARY | 2024-08-14 01:25 | XMS_ITS | Encounter Summary ---
Author [place] [address] Care Team Providers Care Lumber Salvager Name Role Phone Josue Sravani Rosen CADY Primary Care Provider [phone] Encounter Details Date Type Department Care Team (Late st Contact Info) Description 08/11/2017 External [place] [phone] Jackson Lindsay MD [facility] [place] [address] Social History Tobacco Use Types Packs/Day Years [...] 10:30 AM EST Office Visit [place] [phone] Rodrigo Conteh MD [facility] [place] [address] documented as of this encounter Procedures Procedure Name Priority Date/Time Associated Diagnosis Comments ECG SCAN Routine 08/11/2017 documented in this encounter Results * Scan Doc: ECG (08/11/2017) Jackson Lindsay MD [facility] MGR SCAN EXT O RDR/RSLT documented in this encounter Visit Diagnoses Not on filedocumented in this encounter Care Teams Lumber Salvager Relationship Specialty Start Date End Date Sravani Salas APRN [address] [place] [address] PCP - General Family Medicine 01/15/17 documented as of this encounter
--- OUTSIDE RECORDS SUMMARY | 2024-08-14 01:25 | XMS_ITS | Encounter Summary ---
Author Organization [facility] [place] [address] Care Team Providers Care Vault Manager Name Role Phone Linda Galeano MD Primary Care Provider Reason for Visit * Reason Comments Follow Up Surgery Encounter Details Date Type Department Care Team (Late st Contact Info) Description 04/16/2016 11:30 AM EDT Office Visit [place] [address] Galdino Covington MD [facility] [place] [place] [address] Ulnar neuropathy of right upper extremity Social [...] Progress Notes * Galdino Covington MD - 04/16/2016 11:30 AM EDT Plastic Surgery Post Op Note Reason for visit: F/U status post procedure Date of surgery: 01/20/16 Procedure(s): Right ulnar nerve transposition at the elbow Complications: None reported Pain: 7/10 HPI: Pt reports his pain remains unchanged. He is taking gabapentin for pain control. He has not noticed any changes in his hand following surgery. He continues therapy twice weekly. Examination: Patient is alert, conversant, comfortable, ambulating Hand is warm and well perfused. Scar is healing well. Numbness in ring in middle on dorsal ulnar aspect of hand Abduction of fingers 3/5 FDI is 3/5 FDP is 4/5 of ring and small fingers FCU is 4/5 Positive tinel's Impression: Isiah Medrano is a 51 y.o. male who was seen today for follow-up after the above procedure. Please see the operative note for details. We discussed that he should allow more time for nerve regeneration to determine if he may have further gains. I will continue to monitor his progress over time. Plan: 1. Follow up 3 months 2. Ok to decrease therapy to 1 x weekly IGisella, am acting as scribe for Dr Covington. All work documented was performed by Dr Covington. ???I performed the above scribed service and agree with the accuracy of the note?? GALDINO COVINGTON MD documented in this encounter Plan of Treatment Upcoming Encounters Date Type Department Care Team (Late st Contact Info) Description 08/18/2024 10:30 AM EST Office Visit [place] [address] Rodrigo Conteh MD [facility] [place] [address] documented as of this encounter Visit Diagnoses Diagnosis Ulnar neuropathy of right upper extremity Lesion of ulnar nerve Type 2 diabetes mellitus with hyperglycemia, with long-term current use of insulin Vitamin D insufficiency Unspecified vitamin D deficiency Dyslipidemia Other and unspecified hyperlipidemia documented in this encounter Care Teams Vault Manager Relationship Specialty Start Date End Date Linda Galeano MD [address] [place] [address] PCP - General 07/25/10 01/14/17 documented as of this encounter
--- OUTSIDE RECORDS SUMMARY | 2024-08-14 01:25 | XMS_ITS | Encounter Summary ---
Author Organization [place] [address] Care Team Providers Care Digital Sales Director Name Role Phone Linda Galeano MD Primary Care Provider Reason for Visit * Reason Comments Follow Up Surgery right ulnar nerve tr ansposition Encounter Details Date Type Department Care Team (Late st Contact Info) Description 03/12/2016 9:30 AM EDT Office [place] [address] Galdino Wood MD [facility] [place] [place] [address] Ulnar neuropathy of right upper extremity Social History Tobacco Use Types Packs/Day Years Used Date Smoking Tobacco: Never Smokeless Tobacco: Former Quit: 01/09/1995 Alcohol Use Standard Drinks/Week Comments No 0 (1 standard drink = 0.6 oz pur e alcohol) Sex and Gender Information Value Date Recorded Sex Assigned at Not on file Gender Identity Not on file Sexual Orientation Not on file documented as of this encounter Patient Instructions * Patient Instructions* Charu Hughes - 03/12/2016 10:12 AM EDT 1. Follow up: 1 month 2. Hand therapy 3. Work note given today documented in this encounter Progress Notes * Galdino Wood MD - 03/12/2016 9:22 AM EDT Plastic Surgery Post Op Note Reason for visit: F/U status post procedure Date of surgery: 01/20/16 Procedure(s): Ulnar nerve transposition at the elbow Complications: None reported Pain: 8/10 HPI: Pt reports he is experiencing a lot of pain. He appreciates tenderness in his elbow and along his scar. Examination: Patient is alert, conversant, comfortable, ambulating Hand is warm and well perfused. Incision: CDI, healing well. No collection, no erythema, no evidence of cellulitis. 4/5 strength abductors 4/5 flexor digitorum profundus ring and little fingers 4+/5 FCU Pain right side of elbow Numbness along the dorsal ulnar aspepct of the hand, little finger, and ulnar side of ring finger weakness of FCU, and FDP of ring and little fingers Impression: Isiah Medrano is a 51 y.o. male who was seen today for follow-up after the above procedure. Please see the operative note for details. He is doing well without complaints. He his pain hasreturned to approximately his pre- op state. I assured him that he should continue to make progressions. Plan: 1. Follow up: 1 month 2. Hand therapy 3. Work note given today I, Charu Hughes, am acting as scribe for Dr. Wood. All work documented was performed by Dr. Wood. ???I performed the above scribed service and agree with the accuracy of the note?? Dr. Galdino Wood MD. documented in this encounter Plan of Treatment Upcoming Encounters Date Type Department Care Team (Late st Contact Info) Description 08/18/2024 10:30 AM EST Office [place] [address] Rodrigo Conteh MD [facility] [place] [address] documented as of this encounter Visit Diagnoses Diagnosis Ulnar neuropathy of right upper extremity Lesion of ulnar nerve Type 2 diabetes mellitus with hyperglycemia, with long-term current use of insulin Vitamin D insufficiency Unspecified vitamin D deficiency Dyslipidemia Other and unspecified hyperlipidemia documented in this encounter Care Teams Digital Sales Director Relationship Specialty Start Date End Date Linad Galeano MD [address] [place] [address] PCP - General 07/25/10 01/14/17 documented as of this encounter
--- OUTSIDE RECORDS SUMMARY | 2024-08-14 01:25 | XMS_ITS | Encounter Summary ---
Author Organization [facility] [place] [address] Care Team Providers Care Hr Receptionist Name Role Phone Linda Galeano MD Primary Care Provider [phone] Reason for Visit * Reason Onset Date Comments Medication Refill 08/03/2016 Encounter Details Date Type Department Care Team (Late Contact Info) Description 08/03/2016 Ref[place] [phone] Rodrigo Conteh MD [facility] [place] [address] Social History Tobacco Use Types Packs/Day Years [...] 10:30 AM EST Office [place] [phone] Rodrigo Conteh MD [facility] [place] [address] documented as of this encounter Visit Diagnoses Not on filedocumented in this encounter Care Teams Hr Receptionist Relationship Specialty Start Date End Date Linda Galeano MD [address] [place] [address] PCP - General 07/25/10 01/14/17 documented as of this encounter
--- OUTSIDE RECORDS SUMMARY | 2024-08-14 01:25 | XMS_ITS | Encounter Summary ---
Author Organization [facility] Address [facility] [place] [address] Care Team Providers Care Safety Lead Name Role Phone Linda Galeano MD Primary Care Provider [phone] Reason for Visit * Reason Comments Follow-up right ulnar transfer 01/20/16 Encounter Details Date Type Department Care Team (Late st Contact Info) Description 07/16/2016 1:45 PM EST Office [place] [address] Galdino Covington MD [facility] [place] [place] [address] Ulnar neuropathy of right upper extremity Social [...] this encounter Patient Instructions * Patient Instructions* Mavis Ann, BOSSMANA - 07/16/2016 1:45 PM EST You were given written and verbal preoperative instructions today. To prepare for your upcoming surgery, please review the Pre-Operative Instruction brochure that wasgiven to you. Remember to do the pre op wash, with Hibiclens soap, as instructed. 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 Expect a call from the nurses from the Same Day Dept. the business day before the surgery to instruct you in the time to arrive as well as when to stop eating and drinking. Feel free to call our office @ [phone] if you have any questions or concerns. We monitor the phones from -Saturday through Saturday.Written and verbal preoperative instructions were given at this visit. Please review the written information prior to your procedure and contact us with any questions.Feel free to call our office at if you have any questions or concerns. We monitor thephones from 8-Saturday - Saturday. documented in this encounter Progress Notes * Galdino Covington MD - 07/16/2016 1:45 PM EST Plastic Surgery Follow Up Note Reason for visit: F/U status post procedure Date of surgery: 01/20/16 Procedure(s): Right ulnar nerve transposition at the elbow Complications: None reported HPI: Pt reports he still has pain in his arm. He still takes Gabapentin. He has not returned to work. Examination: Patient is alert, conversant, comfortable, ambulating Hand is warm and well perfused. Scar is healing well. Impression: Isiah Medrano is a 51 y.o. male who was seen today for follow-up after the above procedure. Please see the operative note for details. I explained that we can release the ulnar nerve and inject fat into the area. I explained the nature of nerve injuries. We discussed post operative careand restrictions today. Plan: 1. Scheduling for ulnar nerve release and fat grafting Dr Covington Duration: 2 hours Timeframe: elective Procedure: Release of ulnar nerve with fat grafting CPT: 93869, 60789 Surgical site: right arm Side: right Anesthesia: General Follow up: 7-10 Days PAT: No I, Charu Hughes, am acting as scribe for Dr. Covington. All work documented was performed by Dr. Covington. ???I performed the above scribed service and agree with the accuracy of the note?? GALDINO COVINGTON MD * Mavis Ann RMA - 07/16/2016 1:45 PM EST Surgery: Fat grafting and ulnar nerve release right arm Written and verbal pre-operative instructions were given and reviewed with patient: Patient was advised to discontinue use of NSAIDS and aspirin products (unless otherwise advised by patient's PCP/Respiratory Therapist Assistant for cardiac symptoms), fish oil, Vitamin E and herbal supplements for 14 days prior to surgery, to perform the pre-op scrub, and to coordinate a ride home following surgery. Smoking status and medications were further reviewed to rule out/address current use of Nicotine, Coumadin, Plavix, Estrogen or Tamoxifen. Patient was instructed to call the clinic at with any questions or concerns prior tosurgery. 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
--- OUTSIDE RECORDS SUMMARY | 2024-08-14 01:25 | XMS_ITS | Encounter Summary ---
[place] [address] Care Team Providers Care Rd Manager Name Role Phone JosueSravani wood CADY Primary Care Provider [phone] Reason for Visit * Reason Onset Date Comments Other 03/29/2017 diabetic medicat ion instructions Encounter Details Date Type Department Care Team (Late st Contact Info) Description 03/29/2017 Telephone [place] [phone] Kathy Miller LPN Other (diabetic medication instructions) Social History Tobacco Use Types Packs/Day Years [...] encounter Miscellaneous Notes * Telephone Encounter - Kelsey Patterson RN - 04/01/2017 2:42 PM EDT Attempted to contact tory Diaz another vmm with Dr Gotti's directions. * Telephone Encounter - Kelsey Patterson RN - 04/01/2017 8:15 AM EDT Attempted to contact tory Joyce * Telephone Encounter - Kathy Miller LPN - 03/29/2017 2:08 PM EDT Called patient. No answer. Message left on home v/m for patient/ to r/c to nurse at which time message from Dr Esquivel will be read to them. * Telephone Encounter - Rodrigo Conteh MD - 03/29/2017 1:49 PM EDT If he is taking Lanuts 40U in PM, Novolog by scale ,Metformin 1000 mg twice daily, glimepiride 4 mg twice daily, then it should be a short-acting Novolog pen for sliding scale for correction of high BG>150 TID & hs p.r.n. (not 70/30 mix) RODRIGO CONTEH MD * Telephone Encounter - Kathy Miller LPN - 03/29/2017 9:57 AM EDT R/c to who is asking to verify that patient is taking correct Novolog. Was taking Novolog mix but was given a straight Novolog pen at appointment. Taking Lanuts 40U in PM. Novolog by scale ,Metformin 1000 mg twice daily, glimepiride 4 mg twice daily When asked if BG's are better states he has a lot going on and is upset now. He won't talk about it Per she would like to continue with straight novolog as he has been since visit until Dr Conteh returns to clinic. * Telephone Encounter - Kathy Miller LPN - 03/29/2017 9:08 AM EDT Message on endo nurse line from . Isiah had an appointment on Saturday. Dr Conteh gave him a straight novolog pen. He was taking Novolog mix. Is this what she wants him to use? He is taking a long acting too. Called patient/. No answer nor v/m on home #. Message left on cell v/m for patient to r/c to nurse. documented in this encounter Plan of Treatment Upcoming Encounters Date Type Department Care Team (Late st Contact Info) Description 08/18/2024 10:30 AM EST Office [place] [address] Rodrigo Conteh MD [facility] [place] [address] documented as of this encounter Visit Diagnoses Not on filedocumented in this encounter Care Teams Rd Manager Relationship Specialty Start Date End Date Sravani Salas APRN [address] [place] [address] PCP - General Family Medicine 01/15/17 documented as of this encounter
--- OUTSIDE RECORDS SUMMARY | 2024-08-14 01:25 | XMS_ITS | Encounter Summary ---
Author Organization [facility] [place] [address] Care Team Providers Care Deck Steward Name Role Phone Sravani Salas APRN Primary Care Provider [phone] Reason for Referral * Consultation (Routine) - Closed Specialty Diagnoses / Procedures Referred By Nii t Referred To Contact Pain Management Diagnoses Right arm pain Galdino Covington MD [facility] [place] [address] Cleveland Torres MD [facility] [place] [address] Referral ID Status Reason Start Date Expiration Date V isits Requested Visits Authorized [id number] Closed Consult, Test & Treat 07/01/2017 07/01/2018 1 1 Reason for Visit * Reason Comments Follow Up Surgery s/p neuroplasty dos 08/31/16 Encounter Details Date Type Department Care Team (Late st Contact Info) Description 07/01/2017 1:15 PM EDT Office [place] [address] Galdino Covington MD [facility] [place] [address] Right arm pain; Surgical followup Social History Tobacco Use Types Packs/Day Years [...] Progress Notes * Galdino Covington MD - 07/01/2017 1:15 PM EDT Plastic Surgery Follow Up Note Reason for visit: F/U status post procedure Date of surgery: 08/31/16 Procedure(s): Right Ulnar Nerve Neurolysis and fat grafting Complications: None reported HPI: Pt underwent a Stellate ganglion block preformed at the Pain Clinic. Patient reports that since the block he hasn't had much relief. He is not working at this time. Examination: Patient is alert, conversant, comfortable, Right arm Pain in the little and ring finger Scar is well healed -sensative Tinels over the nerves Numbness little finger on both side ulnar side of ring finger 3/5 abduction of those fingers 4/5 abduction first dorsal interosseous with no atrophy 3/5 FDP of little finger 3/5 FCU Impression: Isiah Medrano is a 52 y.o. male who was seen today for follow-up after the above procedure. Please see the operative note for details. Discussed with the patient that since he did not have relief from stellate ganglion block that I would like him to see Dr. Torres in regards to his persistent ulnar nerve pain. Discussed that there may be another option. Patient agrees. Plan: 1. Referral to Pain Clinic to see Dr. Torres. 2. Follow up with Dr. Covington after visit with Pain Clinic. I, Raina Johnson, am acting as scribe for Dr. Covington. All work documented was performed by Dr. Covington. ???I performed the above scribed service and agree with the accuracy of the note?? GALDINO COVINGTON MD documented in this encounter Plan of Treatment Upcoming Encounters Date Type Department Care Team (Late st Contact Info) Description 08/18/2024 10:30 AM EST Office [place] [address] Rodrigo Conteh MD [facility] [place] [address] Scheduled Referrals Name Type Priority Associated Diagnoses Orde r Schedule Referral to Pain Clinic Outpatient Referral Routine Right arm pain Ordered: 07/01/2017 documented as of this encounter Visit Diagnoses Diagnosis Right arm pain Pain in limb Surgical followup Follow-up examination, following unspecified surgery Type 2 diabetes mellitus with hyperglycemia, with long-term current use of insulin Vitamin D insufficiency Unspecified vitamin D deficiency Dyslipidemia Other and unspecified hyperlipidemia documented in this encounter Care Teams Deck Steward Relationship Specialty Start Date End Date Sravani Salas APRN [address] [place] [address] PCP - General Family Medicine 01/15/17 documented as of this encounter
--- OUTSIDE RECORDS SUMMARY | 2024-08-14 01:25 | XMS_ITS | Encounter Summary ---
Author Organization [facility] [place] [address] Care Team Providers Care Plant Electrical Engineer Name Role Phone Sravani Salas APRN Primary Care Provider [phone] Reason for Referral * Consultation (Routine) - Closed Specialty Diagnoses / Procedures Referred By Nii hoffman Referred To Contact Pain Management Diagnoses Follow up Galdino Wood MD [facility] [place] [address] [facility] [address] [place] [address] Referral ID Status Reason Start Date Expiration Date V isits Requested Visits Authorized [id number] Closed Consult, Test & Treat 03/11/2017 03/11/2018 1 1 Reason for Visit * Reason Comments Follow Up Surgery s/p neuroplasty 08/03 Encounter Details Date Type Department Care Team (Late st Contact Info) Description 03/11/2017 1:15 PM EDT Office [place] [phone] Galdino Wood MD [facility] [place] [address] Follow up; Ulnar neuropathy of right upper extremity Social [...] encounter Patient Instructions * Patient Instructions* Galdino Wood MD - 03/11/2017 1:15 PM EDT 1. Follow up with the Pain Clinic to discuss spinal cord stimulator. 2. Follow up with Dr. Wood after pain clinic appointment. documented in this encounter Progress Notes * Galdino Wood MD - 03/11/2017 1:15 PM EDT Plastic Surgery Follow Up Note Reason for visit: F/U status post procedure Date of surgery: 08/31/16 Procedure(s): Right Ulnar Nerve Neurolysis and fat grafting Complications: None reported Pain: 8/10 HPI: Pt reports that there has been no changes since surgery. He reports of having increased burning sensations down his right arm. He has been taking gabapentin and oxycodone for his pain and discomfort. He is frustrated about his slow progress. He reports that this inury happened 2015 invloving mindi garcia. He states that he has been doing physical therapy but treatment hasn't been beneficial tohim. This is a workers compensation claim. He reports that he hasn't gone back to work since his injury. He states that it would be difficult to work in the condition that he is in. He works for the [employer]. Patient has been seeing [place] Clinic [place] [facility] He states that at his last visit it was reported that the Pain Clinic sugggested that he could possibly have a nerve ablation. He has been using a topical cream to help with his pain prescribed by Sandra Hatch who is a Nurse Practitioner at the Pain Clinic. Examination: Patient is alert, conversant, comfortable, ambulating Right arm: Several sensitive areas over elbow scar No atrophy of muscle Weakness of abduction 3/5 Numbness on both sides of little finger Numbness of ulnar side of ring finger Incision: CDI, healing well. No collection, no erythema, no evidence of cellulitis. Tender over the scar Positive for Tinels 100 % pointer finger- numbness to the little finger ulnar side Numbness to the dorsal radial portion of hand 3/5 Abduction of fingers 3/5 1st dorsal anterior no atrophy 3-5 FDP with ring and little finger 4-5 FCR Impression: Isiah Medrano is a 52 y.o. male who was seen today for follow-up after the above procedure. Please see the operative note for details. Discussed with the patient that this type of injury does take time to heal. Discussed with the patient that it might be beneficial for him to go back tot Pain Clinic to discuss placing a nerve stimulator to help with his ongoing pain and discomfort. Also expressed that having a nerve ablation wouldn't necessarily help his issues. He is interested in seeing the Pain Clinic for further discussion of placement of spinal cord simulator. Patient agrees with plan. Referral placed in the system. Plan: 1. Referral to Pain Clinic to discuss spinal cord stimulator. 2. Follow up with Dr. Wood after Pain Clinic appointment. I, Alicia Urrutia, am acting as scribe for Dr. Wood. All work documented was performed by Dr. Wood. ???I performed the above scribed service and agree with the accuracy of the note?? 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
--- OUTSIDE RECORDS SUMMARY | 2024-08-14 01:25 | XMS_ITS | Encounter Summary ---
Author Organization [facility] [place] [address] Care Team Providers Care Clinical Trial Coordinator Name Role Phone Josue Sravani Silas CADY Primary Care Provider [phone] Encounter Details Date Type Department Care Team (Late st Contact Info) Description 08/16/2017 2:30 PM EST Office [place] [id number] Rodrigo Conteh MD [facility] [place] [address] Type 2 diabetes, uncontrolled, with neuropathy; Hypocalcemia Social History Tobacco Use Types Packs/Day Years [...] Sign Reading Time Taken Comments Blood Pressure 134/86 08/16/2017 2:14 PM EST Pulse 73 08/16/2017 2:14 PM EST Temperature - - Respiratory Rate - - Oxygen Saturation - - Inhaled Oxygen Concentration - - Weight 93 kg (205 lb) 08/16/2017 2:14 PM EST Height 170.2 cm (5' 7) 08/16/2017 2:14 PM EST Body Mass Index 32.11 08/16/2017 2:14 PM EST documented in this encounter Patient Instructions * Patient Instructions* Rodrigo Conteh MD - 08/16/2017 2:30 PM EST Plan: 1. Medication: Adjustment of diabetes treatment regimen: To cont U-500 insulin vial 100u BID and may need to increase the dose up to 150u if needed later. will allow him to adjust by 5-10 units until fasting BG at target of 90-180 range (ok not to use victoza or Trulicity pen due to cost) Ok to take short-acting Humalog kwikpen 30-40 units with dinner which is his larger meal of the day) To cont glimiperide 4 mg bid and metformin 1000 mg bid To check FSBG often tid ac & hs and ok to give Humalog kwickpen sliding scale p.r.n if BG>180 based on 1u:10BG ratio (or to simply titrate U-500 insulin at this initial step) To eat low carb diet to prevent high BG until his islets recover well making insulin more otherwisehe is allowed to use 1u:5g carb for meal at present (and less later when he is better) To continue all other medications and cont taking OTC-B12 1,000 mcg po qd as well for neuropathy but better DM control is critical for him. To take OTC-vitD 2,000 iu qd for his mild hypocalcemia 8.3 and slo-mag for mild hypomagnesemia (Mg 1.5) 2. Monitoring: to check FSBG before each meal and at bedtime. Target BG 90-180 while fasting and 90-180 pre-meal during daytime Target A1c < 9% soon in 6-8 weeks for this patient and ~7-8% as his target. 3. Diet and exercise: low fat/controlled carb diet & exercise as tolerated to keep weight down or at least stable. Patient will keep log of blood glucose and insulin used for review at next visit. 4. Lab: Already checked lab last week as above. 5. RTC: Next visit in 3 months. Will check both HbA1c and 25vitD at the time (pt will send a copy of lab results for lipids, 25vitD and recent urine microalbumin/Cr at local lab for our documentationas well). documented in this encounter Progress Notes * Rodrigo Conteh MD - 08/16/2017 2:30 PM EST Endocrine Clinic Name: [facility] Medrano : 1965 Date: 08/16/2017 PCP: Sravani Salas APRN Reason for visit: Follow-up uncontrolled diabetes type 2 (quit victoza in December 2016 due to high cost) and recently switched from Lantus 70u qhs plusHumalog 60u qHS to U-500 insulin since 06/04/17 for high A1c 11.5% (07/01/17) => 10.1% on 08/11/17 down slightly Recent phone note: Call from Rx for U500 pens needs to be rewritten for at least a 30 day supply for coupon to beused. will have patient call with any questions once he has U500 insulin. Diabetes treatment regimen: Metformin 1000 mg bid and glimiperide 4 mg bid Humalog pen 60u nightly and sliding scale qid p.r.n for high BG>180 U500 pen 100 units in AM and 130 units in PM. FSBG: checking FSBG more often 3-4x/day with BG ranged 60s-300s typically in 100s-200s Most recent HA1c: 10.2% on 08/11/17 (was 11.5% on 07/01/17, 9..2% in , 11.5% on 09/15/15, 12.4% 06/10/15 , 14.6% on 06/19/13 and 9.5% on 02/24/13) Ref. Range 02/24/2013 13:09 06/19/2013 13:57 06/10/2015 12:30 09/15/2015 12:06 04/03/2016 10:15 Hemoglobin A1C Range: 4.3 - 5.6 % 9.5 (H) 14.6 (H) 12.4 (H) 11.5 (H) 9.2 (H) => 11.5%=> 10.2%(08/11/17) Hypoglycemia during the interval time: rare in 60s and will cut back U-500 PM dose to 100 u for nowand to use short-acting HUmalog to cover for dinner instead of a higher dose of U-500 in PM. He noted stomach issues if BG is getting low before he has sweating or shakiness Diet: low fat/low carb diet Exercise: walking Complications: no changes during the interim. Prevention: same as last visit recently. He had an overnight admission for angina and r/o for OR without any cath or stent, etc. He noted better BG in 120s-130s in AM and rare in 60s and will cut back U-500 PM dose to 100 u for now and to use short-acting Humalog to cover for dinner instead of a higher dose of U-500 in PM. If he had a borderline low BG then he ate and got rebound high BG easily. He had to quit using victoza in December 2016 due to high cost ($150/mo). He feels better without polyuria/polydipsia and his A1c is down quickly after using U-500 only for the past 4 weeks (from 11.5% to 10.2% but mostly only had better BG over the past 4 weeks with U-500). He knows that good DM control is critical for nerve healing and it will also prevent further progression of neuropathy. He had the 3rd redo surgery of his ulnar nerve in and may need nerve stimulator next. He is willing to switch to U-500 insulin pen as he will need to double insulin dose >200u/day and prefers small volume of the injection instead of having to dial to the end of the penand do so many injections. Denies any changes in vision, no CP, [...] upper extremity G56.21 ??? Surgical followup Z09 Current Outpatient Prescriptions on File Prior to Visit Medication Sig Dispense Refill ??? insulin regular hum U-500 conc (HUMULIN R U-500, CONC, KWIKPEN) 500 unit/mL (3 mL) Insulin Pen 100-150 units two to three times per day 12 Syringe 11 ??? insulin regular CONCENTRATE U-500 (HUMULIN R U-500) 500 unit/mL Solution Inject 100-150 Units subcutaneously 2 times daily. 0.2-0.3 ml looks like 20-30U on insulin syringe 20 mL 11 ??? Insulin Syringe-Needle U-100 0.5 mL 31 gauge x 01/15 Syringe 1 each by [facility].(Non-Drug; Combo Route) route 2 times daily. 100 Syringe 11 ??? NALTREXONE HCL (NALTREXONE ORAL) Take by mouth. ??? DULoxetine (CYMBALTA) 60 mg Capsule, Delayed Release(E.C.) Take 60 mg by mouth daily. ??? pen needle, diabetic (NOVOFINE PLUS) 32 gauge x 09/07 Needle 1 each by [facility].(Non-Drug; Combo Route) route 4 times daily as needed. 100 each 11 ??? traZODone (DESYREL) 50 mg Tablet Take 50-100 mg by mouth nightly. ??? allopurinol (ZYLOPRIM) 300 mg Tablet Take 300 mg by mouth daily. ??? aspirin 325 mg Tablet Take 325 mg by mouth daily. ??? gabapentin (NEURONTIN) 300 mg Capsule Take 3,600 mg by mouth every 3 hours. 3 ??? lisinopril (PRINIVIL;ZESTRIL) 20 mg [...] as instructed 400 each 3 ??? Insulin Mcgrath, Disposable, (BD INSULIN PEN NEEDLE UF MINI) 31 x 11/15 Ndle by Other route. 1box = 100 insulin PEN needles. 1 Box 11 ??? metFORMIN (GLUCOPHAGE) 500 mg tablet Take 1,000 mg by mouth 2 times daily (with meals). ??? Insulin Syringe-Needle U-100 (BD INSULIN SYRINGE ULT-FINE II) 1 mL 31 x 01/15 Syrg 1 each by Mis.(Non-Drug; Combo Route) route 2 times daily (before meals). 100 each 11 No current facility-administered medications on file prior to visit. Allergies Allergen Reactions ??? Eptifibatide Other (See Comments) thrombocytopenia ??? Amoxicillin Other (See Comments) Unknown Social History Social History ??? Marital status: Spouse name: N/A ??? Number of children: N/A ??? Years of education: N/A Social History Main Topics ??? Smoking status: Never Smoker ??? Smokeless tobacco: Former User Types: Chew Quit date: 01/09/1995 ??? Alcohol use No ??? Drug use: No ??? Sexual activity: Not Asked Other Topics Concern ??? None Social History Narrative FAMILY HISTORY Family History Problem Relation Age of Onset ??? Diabetes Brother Physical exam BP 134/86 (Patient Position: Sitting) Pulse 73 Ht 170.2 cm (5' 7) Wt 93 kg (205 lb) BMI 32.11 kg/m2 Appearance: mildly obese, pleasant, NAD, here with his HEENT: DANYELLE THOMSON Neck: no goiter Abdomen: benign, NT, ND Ext: no pitting edema no foot ulcer Rt arm with bandage s/p Rt ulnar nerve transposition surgery since Neuro: no weakness Results for REID MEDRANO [...] 8.3 and low Mg 1.5 CK -neg Assessment: 52 y.o. man with severe insulin resistance and uncontrolled type 2 Diabetes - worsening control after he had to quit taking victoza in December 2016 with A1c jules up from 9.2 in to 11.5% on 07/01/17 (as victoza was too costly $150/mo even with insurance coverage). He first switched to Lantus up to 70u qhs as prescribed by his PCP but BG remains high but still has high BG 200s-300s even after using Humalog 60 u nightly. So we switched to U-500 pen to be able to give smaller volume with better insulin absorption and after 4 weeks of U-500, his A1c down to 10.2% with BG in 100s mostly. He had rare BG in 60s at night so we will cut back U-500 PM dose from 130 to 100 u for now and to use short-acting Humalog to cover for dinner as his biggest meal instead of a higher dose of U-500 in PM. He is still having high c-peptide 7.3 from his own insulin production so we will cont oral agents to reduce insulin need for himfurther. Complication Risk Status: + complications present with [...] treatment regimen: To cont U-500 insulin vial 100u BID and may need to increase the dose up to 150u if needed later. will allow him to adjust by 5-10 units until fasting BG at target of 90-180 range (ok not to use victoza or Trulicity pen due to cost) Ok to take short-acting Humalog kwikpen 30-40 units with dinner which is his larger meal of the day) To cont glimiperide 4 mg bid and metformin 1000 mg bid To check FSBG often tid ac & hs and ok to give Humalog kwickpen sliding scale p.r.n if BG>180 based on 1u:10BG ratio (or to simply titrate U-500 insulin at this initial step) To eat low carb diet to prevent high BG until his islets recover well making insulin more otherwisehe is allowed to use 1u:5g carb for meal at present (and less later when he is better) To continue all other medications and cont taking OTC-B12 1,000 mcg po qd as well for neuropathy but better DM control is critical for him. To take OTC-vitD 2,000 iu qd for his mild hypocalcemia 8.3 and slo-mag for mild hypomagnesemia (Mg 1.5) 2. Monitoring: to check FSBG before each meal and at bedtime. Target BG 90-180 while fasting and 90-180 pre-meal during daytime Target A1c < 9% soon in 6-8 weeks for this patient and ~7-8% as his target. 3. Diet and exercise: low fat/controlled carb diet & exercise as tolerated to keep weight down or at least stable. Patient will keep log of blood glucose and insulin used for review at next visit. 4. Lab: Already checked lab last week as above. 5. RTC: Next visit in 3 months. Will check both HbA1c and 25vitD [...] 10:30 AM EST Office [place] [address] Rodrigo Conteh MD [facility] [place] [address] Scheduled Orders Name Type Priority Associated Diagnoses Orde r Schedule Hemoglobin A1c Lab Routine Type 2 diabetes, uncontrolled, with neuropathy Expected: 11/15/2017, Expires: 08/17/2018 documented as of this encounter Results * Vitamin D, 25-Hydroxy (06/16/2018 11:51 AM EDT) Vitamin D Total 25 OH 61 30 - 100 ng/mL [facility] Comment: Deficient <10 ng/mL Insufficient 10 to 29 ng/mL Sufficient 30 to 100 ng/mL Potential Intoxication >100 ng/mL According to the US National Osteoporosis Foundation, Vitamin D concentrations >30 ng/mL are sufficient to protect bone health. ??The National Kidney Foundation has similarly stated that patients with Vitamin D concentrations <30ng/mL should be considered to be insufficient or deficient. http://[employer]/nkf-guidelines http://[employer]/nejm-VitD The [employer] Vitamin D Immunoassay detects both 25-OH Vitamin D2 and 25-OH Vitamin D3, but only a total Vitamin D concentration is reported. Blood specimen (specimen) 06/16/2018 11:51 AM EDT 06/16/2018 2:13 PM EDT Narrative Resulting Agency Comment Spec In Lab Rodrigo Conteh MD CHEMISTRY ORDERAB LES Performing Organization Address City/State/[facility] Co de Phone Number [facility] [place] [address] documented in this encounter Visit Diagnoses Diagnosis Type 2 diabetes, uncontrolled, with neuropathy Type II or unspecified type diabetes mellitus with neurological manifestations, uncontrolled Hypocalcemia Type 2 diabetes mellitus with hyperglycemia, with long-term current use of insulin Vitamin D insufficiency Unspecified vitamin D deficiency Dyslipidemia Other and unspecified hyperlipidemia documented in this encounter Care Teams Clinical Trial Coordinator Relationship Specialty Start Date End Date Sravani Salas APRN [address] [place] [address] PCP - General Family Medicine 01/15/17 documented as of this encounter
--- OUTSIDE RECORDS SUMMARY | 2024-08-14 01:25 | XMS_ITS | Encounter Summary ---
[place] [address] Care Team Providers Care Overnight Caregiver Name Role Phone Linda Galeano MD Primary Care Provider [phone] Encounter Details Date Type Department Care Team (Late st Contact Info) Description 04/23/2016 Telephone [place] [phone] Kathy Miller LPN Social History Tobacco Use Types Packs/Day Years [...] encounter Miscellaneous Notes * Telephone Encounter - Rodrigo Conteh MD - 04/23/2016 1:14 PM EDT Script for Viagra 50 mg qd p.r.n was efaxed to his Rx. RODRIGO CONTEH MD * Telephone Encounter - Kathy Miller LPN - 04/23/2016 12:54 PM EDT R/c to Lisa who states patient was told that Viagra is less expensive then Cialis and is asking for Viagra Rx to go to [facility]. verifies that patient is taking no Imdur nor Ntg. Forward to Dr Conteh for dose. documented in this encounter Plan of Treatment Upcoming Encounters Date Type Department Care Team (Late st Contact Info) Description 08/18/2024 10:30 AM EST Office [place] [address] Rodrigo Conteh MD [facility] [place] [address] documented as of this encounter Visit Diagnoses Not on filedocumented in this encounter Care Teams Overnight Caregiver Relationship Specialty Start Date End Date Linda Galeano MD [address] [place] [address] PCP - General 07/25/10 01/14/17 documented as of this encounter
--- OUTSIDE RECORDS SUMMARY | 2024-08-14 01:25 | XMS_ITS | Encounter Summary ---
Author Organization [facility] [place] [address] Care Team Providers Care Md Urologist Name Role Phone Josue Sravani H CADY Primary Care Provider [phone] Reason for Visit * Reason Onset Date Comments Medication Refill 07/03/2017 Encounter Details Date Type Department Care Team (Late st Contact Info) Description 07/03/2017 [place] [phone] Rodrigo Conteh MD [facility] [place] [address] Social History Tobacco Use Types Packs/Day Years [...] encounter Miscellaneous Notes * Telephone Encounter - Kathy Miller LPN - 07/03/2017 12:17 PM EDT Per pharmacy to be able to use coupon Rx for U500 needs to rewritten for 30 day supply 12 pens. documented in this encounter Plan of Treatment Upcoming Encounters Date Type Department Care Team (Late st Contact Info) Description 08/18/2024 10:30 AM EST Office [place] [address] Rodrigo Conteh MD [facility] [place] [address] documented as of this encounter Visit Diagnoses Not on filedocumented in this encounter Care Teams Md Urologist Relationship Specialty Start Date End Date Sravani Salas APRN [address] [place] [address] PCP - General Family Medicine 01/15/17 documented as of this encounter
--- OUTSIDE RECORDS SUMMARY | 2024-08-14 01:25 | XMS_ITS | Encounter Summary ---
Author Organization [facility] [place] [address] Care Team Providers Care Coil Connector Repairer Name Role Phone JosueSravani wood CADY Primary Care Provider [phone] Encounter Details Date Type Department Care Team (Late Contact Info) Description 04/06/2017 [place] [address] Jovi Rodriguez MD [facility] [place] [address] Type 2 diabetes mellitus without complication, unspecified [facility] insulin use status Social History Tobacco Use Types Packs/Day Years [...] as of this encounter Progress Notes * Jovi Rodriguez MD - 04/06/2017 11:39 AM EDT Patient's called in asking for a refill of Novolog pen. She wanted me to provide a 90 day supply to be sent to [facility] and a 30 day supply to [facility] [address] [facility], [place]. I reviewed recent telephone encounters. documented in this encounter Plan of Treatment Upcoming Encounters Date Type Department Care Team (Late st Contact Info) Description 08/18/2024 10:30 AM EST [place] [address] Rodrigo Conteh MD [facility] [place] [address] documented as of this encounter Visit Diagnoses Diagnosis Type 2 diabetes mellitus without complication, unspecified [facility] insulin use status Type 2 diabetes mellitus with hyperglycemia, with long-term current use of insulin Vitamin D insufficiency Unspecified vitamin D deficiency Dyslipidemia Other and unspecified hyperlipidemia documented in this encounter Care Teams Coil Connector Repairer Relationship Specialty Start Date End Date Sravani Salas APRN [address] [place] [address] PCP - General Family Medicine 01/15/17 documented as of this encounter
--- OUTSIDE RECORDS SUMMARY | 2024-08-14 01:25 | XMS_ITS | Encounter Summary ---
Author [place] [address] Care Team Providers Care Layer Out Plate Glass Name Role Phone Sravani Salas APRN Primary Care Provider [phone] Encounter Details Date Type Department Care Team (Late st Contact Info) Description 08/12/2017 Tele[place] [phone] Kathy Miller LPN Social History Tobacco Use [...] Telephone Encounter - Kathy Miller LPN - 08/13/2017 9:15 AM EST Images from the original note were not included. Isiah Medrano?? Male, 52 y.o., 1965 Weight: 92.4 kg (203 lb 12.8 oz) Home: PCP: Sravani Salas APRN myD-H: Code Exp Next Appt: 08/16/2017 ?? Message Received: Yesterday ? Rodrigo Conteh MD Isham, Gail, LPN ? Caller: Unspecified (Yesterday, ??2:49 PM) ? Thanks for the update. Will see him this Sat as scheduled. RODRIGO CONTEH MD ? Previous Messages * Telephone Encounter - Kathy Miller LPN - 08/12/2017 2:49 PM EST Message from . Appointment rescheduled to Saturday as he an inpatient for another reason. Ha1c is down to 10. documented in this encounter Plan of Treatment Upcoming Encounters Date Type Department Care Team (Late st Contact Info) Description 08/18/2024 10:30 AM EST Office [place] [address] Rodrigo Conteh MD [facility] [place] [address] documented as of this encounter Visit Diagnoses Not on filedocumented in this encounter Care Teams Layer Out Plate Glass Relationship Specialty Start Date End Date Sravani Salas APRN [address] [place] [address] PCP - General Family Medicine 01/15/17 documented as of this encounter
--- OUTSIDE RECORDS SUMMARY | 2024-08-14 01:25 | XMS_ITS | Encounter Summary ---
Author Organization [facility] [place] [address] Care Team Providers Care Imaging Technician Name Role Phone Josue Sravani H CADY Primary Care Provider [phone] Encounter Details Date Type Department Care Team (Late st Contact Info) Description 08/16/2017 Telephone [place] [address] Kathy Miller LPN Social History Tobacco Use [...] Telephone Encounter - Kathy Miller LPN - 08/16/2017 9:42 AM EST Message left on home and patient's cell v/m that there are labs ordered for patient to have done prior to today's appointment. documented in this encounter Plan of Treatment Upcoming Encounters Date Type Department Care Team (Late st Contact Info) Description 08/18/2024 10:30 AM EST Office [place] [address] Rodrigo Conteh MD [facility] ENDOCRINOLOGY [place], [place] [address] documented as of this encounter Visit Diagnoses Not on filedocumented in this encounter Care Teams Imaging Technician Relationship Specialty Start Date End Date Sravani Salas APRN [address] [place] [address] PCP - General Family Medicine 01/15/17 documented as of this encounter
--- OUTSIDE RECORDS SUMMARY | 2024-08-14 01:25 | XMS_ITS | Encounter Summary ---
Author Organization [facility] [place] [address] Care Team Providers Care Laboratory Tester Name Role Phone Linda Galeano MD Primary Care Provider [phone] Reason for Visit * Reason Onset Date Comments Medication Refill 04/23/2016 Encounter Details Date Type Department Care Team (Late st Contact Info) Description 04/23/2016 [place] [address] Rodrigo Conteh MD [facility] [place] [address] Social History Tobacco Use Types Packs/Day Years [...] Encounter - Kathy Miller LPN - 04/23/2016 3:36 PM EDT Rx for Viagra went to [facility] in [place]. Nurse spoke with Jerson who was told that Rx went to the wrong pharmacy. Per Jerson Rx will be deleted. documented in this encounter Plan of Treatment Upcoming Encounters Date Type Department Care Team (Late st Contact Info) Description 08/18/2024 10:30 AM EST [place] [address] Rodrigo Conteh MD [facility] [place] [address] documented as of this encounter Visit Diagnoses Not on filedocumented in this encounter Care Teams Laboratory Tester Relationship Specialty Start Date End Date Linda Galeano MD [address] [place] [address] PCP - General 07/25/10 01/14/17 documented as of this encounter
--- OUTSIDE RECORDS SUMMARY | 2024-08-14 01:25 | XMS_ITS | Encounter Summary ---
Author Organization [facility] [place] [address] Care Team Providers Care Sand Wheeler Name Role Phone Sravani Salas APRN Primary Care Provider [phone] Reason for Visit * Reason Comments Diabetes Encounter Details Date Type Department Care Team (Late st Contact Info) Description 03/26/2017 11:00 AM EDT Office [place] [phone] Rodrigo Conteh MD [facility] [place] [address] Type 2 diabetes, uncontrolled, with neuropathy Social [...] Sign Reading Time Taken Comments Blood Pressure 127/91 03/26/2017 10:57 AM EDT Pulse 71 03/26/2017 10:57 AM EDT Temperature - - Respiratory Rate - - Oxygen Saturation - - Inhaled Oxygen Concentration - - Weight 88.4 kg (194 lb 12.8 oz) 017 10:57 AM EDT Height 170.2 cm (5' 7) 03/26/2017 10:5 7 AM EDT Body Mass Index 30.51 03/26/2017 10:57 AM EDT documented in this encounter Patient Instructions * Patient Instructions* Rodrigo Conteh MD - 03/26/2017 11:00 AM EDT Plan: 1. Medication: Adjustment of diabetes treatment regimen: To increase lantus from 10 to 30u qHS and allow him to adjust by 5 units until fasting BG at targetof 80-150 range (ok not to use victoza pen due to cost) To cont glimiperide 4 mg bid and metformin 1000 mg bid To check FSBG more often tid ac & hs and give Humalog kwickpen sliding scale p.r.n if BG>150based on 1u:20BG ratio To eat low carb diet to prevent high BG until his islets recover well making insulin more otherwisehe is allowed to use 1u:5g carb for meal at present (and less later when he is better) To continue all other medications and cont taking OTC-B12 1,000 mcg po qd as well for neuropathy but better DM control is critical for him. To contact special education teaching assistant if he still needs Imdur or not before he considers taking cialis or viagra for ED 2. Monitoring: to check FSBG before each meal and at bedtime. Target BG 80-140 while fasting and 80-150 pre-meal during daytime 1-2 h post meal below 180-200. Target A1c < 8% soon for this patient. 3. Diet and exercise: low fat/controlled carb diet & exercise as tolerated to keep weight down or at least stable. Patient will keep log of blood glucose and insulin used for review at next visit. 4. Lab: Already checked lab with PCP recently 5. RTC: Next visit in 3 months on 07/01/17 and will need to keep A1c <9% soon. Will check both HbA1c and recheck B12 for his painful neuropathy at the time (Quick draw lab before visit with us on the same day). documented in this encounter Progress Notes * Rodrigo Conteh MD - 03/26/2017 11:00 AM EDT Endocrine Clinic Name: [facility] Grace[facility] : 1965 Date: 03/26/2017 PCP: Sravani Salas APRN Provided by: Rodrigo Conteh MD Reason for visit: Follow-up uncontrolled diabetes type 2 (quit victoza 2 mo ago due to high cost) Diabetes treatment regimen: Metformin 1000 mg bid and glimiperide 4 mg bid Victoza was too costly and quit 2 mo ago Humalog pen sliding scale qid p.r.n for high BG>180 Lantus 10u qhs recently added by PCP FSBG: only checking p.r.n and not a fan of FSBG testing Most recent HA1c: 9s% per pt with lab at PCP recently (was 9..2% at last visit in , 11.5% on 09/15/15, 12.4% 06/10/15 , 14.6% on 06/19/13 and 9.5% on 02/24/13) Ref. Range 02/24/2013 13:09 06/19/2013 13:57 06/10/2015 12:30 09/15/2015 12:06 04/03/2016 10:15 Hemoglobin A1C Range: 4.3 - 5.6 % 9.5 (H) 14.6 (H) 12.4 (H) 11.5 (H) 9.2 (H) Hypoglycemia during the interval time: none Diet: low fat/low carb diet Exercise: walking Complications: no changes during the interim. Prevention: same as last visit recently. He is not doing well with high BG 200s-300s often now after he quit using victoza 2 mo ago due to high cost ($150/mo) and started on lantus 10u qhs but fasting BG now remains high at 324 at the visittoday. He feels tired, with some polyuria/polydipsia with high A1c 9s% range. He had to use lots ofHumalog sliding scale insulin 20-30u p.r.n for high BG.. He knows that good DM control is critical for nerve healing and it will also prevent further progression of neuropathy. He had the 3rd redo surgery of his ulnar nerve in and may need nerve stimulator next. Denies any changes in vision, no CP, [...] Ulnar neuropathy of right upper extremity G56.21 Current Outpatient Prescriptions on File Prior to Visit Medication Sig Dispense Refill ??? OXYCONTIN 15 mg tablet,oral only,ext.rel.12 hr Take 15 mg by mouth 2 times daily. 0 ??? traZODone (DESYREL) 50 mg Tablet Take 50-100 mg by mouth nightly. ??? allopurinol (ZYLOPRIM) 300 mg Tablet Take 300 mg by mouth daily. ??? aspirin 325 mg Tablet Take 325 mg by mouth daily. ??? FLUoxetine (PROZAC) 20 mg Tablet Take 20 mg by mouth daily. ??? insulin aspart protamine-insulin aspart 70/30 (NOVOLOG MIX 70/30 PEN) Insulin Pen Inject 2-20 units subcutaneously 4 times daily as needed for high blood sugar >200 75 mL 11 ??? gabapentin (NEURONTIN) 300 mg Capsule Take 900 mg by mouth every 3 hours. 3 [...] as instructed 400 each 3 ??? Insulin [place], Disposable, (BD INSULIN PEN NEEDLE UF MINI) [...] daily (before meals). 100 each 11 ??? lidocaine (XYLOCAINE) 5 % Ointment Apply topically 2 times daily. Reported on 03/26/2017 1 ??? oxyCODONE (ROXICODONE) 5 mg Tablet Take 1 tablet by mouth every 4 hours as needed for Pain. (Patient not taking: Reported on 03/26/2017) 25 tablet 0 ??? sildenafil (VIAGRA) 50 mg Tablet Take 1 tablet by mouth as needed for Erectile Dysfunction. (Patient not taking: Reported on 03/26/2017) 30 tablet 11 No current facility-administered medications on file [...] ??? Diabetes Brother Physical exam BP (!) 127/91 Pulse 71 Ht 170.2 cm (5' 7) Wt 88.4 kg (194 lb 12.8 oz) BMI 30.51 kg/m2 Appearance: mildly obese, pleasant, NAD, here with his HEENT: DANYELLE THOMSON Neck: no goiter Abdomen: benign, NT, ND Ext: no pitting edema no foot ulcer Rt arm with bandage s/p Rt ulnar nerve transposition surgery last Neuro: no weakness Results for REID MEDRANO ( ) as of 03/26/2017 Ref. Range 04/03/2016 10:15 Hemoglobin A1C Latest Ref Range: 4.3 - 5.6 % 9.2 (H) Est Avg Gluc Latest Units: mg/dL 217 Vitamin B-12 Latest Ref Range: 207 - 974 pg/mL 600 TSH Latest Ref Range: 0.27 - 4.20 mcIU/mL 1.37 C-Peptide Latest Ref Range: 1.1 - 4.4 ng/mL 7.3 (H) Assessment: Diabetes Type 2- worsening control after he had to quit taking victoza 2 mo ago as it was too costly $150/mo even with insurance coverage) and already started using Lantus 10u qhs as prescribed by his PCP but BG remains high in 200s-300s often. Today fasting BG at clinic was very high at 324 so we gave Novolog 11u correction while not eating and will increase lantus to 30u qhs and more from today. He used to switched back from severely uncontrolled DM with high A1c 12.4-14.6% range down to 9.2%at last visit in 2015 and lab with PCP recently showed A1c in 9s% range per pt. He has been using a lot of insulin sliding scale p.r.n for high BG correction but will try to eat low carb and more insulin to help get him out of glucotoxicity soon. He had redo surgery 3rd time last Aug for Rt ulnar nerve transposition surgery (1st surgery and 2nd surgery in ). Complication Risk Status: + complications present with painful peripheral neuropathy and ED. Also, treated for CAD s/p stent RCA in 01/07, HTN, Chol, gout on treatment. Plan: 1. Medication: Adjustment of diabetes treatment regimen: To increase lantus from 10 to 30u qHS and allow him to adjust by 5 units until fasting BG at targetof 80-150 range (ok not to use victoza pen due to cost) To cont glimiperide 4 mg bid and metformin 1000 mg bid To check FSBG more often tid ac & hs and give Humalog kwickpen sliding scale p.r.n if BG>150based on 1u:20BG ratio To eat low carb diet to prevent high BG until his islets recover well making insulin more otherwisehe is allowed to use 1u:5g carb for meal at present (and less later when he is better) To continue all other medications and cont taking OTC-B12 1,000 mcg po qd as well for neuropathy but better DM control is critical for him. To contact special education teaching assistant if he still needs Imdur or not before he considers taking cialis or viagra for ED 2. Monitoring: to check FSBG before each meal and at bedtime. Target BG 80-140 while fasting and 80-150 pre-meal during daytime 1-2 h post meal below 180-200. Target A1c < 8% soon for this patient. 3. Diet and exercise: low fat/controlled carb diet & exercise as tolerated to keep weight down or at least stable. Patient will keep log of blood glucose and insulin used for review at next visit. 4. Lab: Already checked lab with PCP recently 5. RTC: Next visit in 3 months on 07/01/17 and will need to keep A1c <9% soon. Will check both HbA1c and recheck B12 for his painful neuropathy at the time (Quick draw lab before visit with us on the same day). We have reviewed our plan outlined above [...] 10:30 AM EST Office [place] [address] Rodrigo Conteh MD [facility] [place] [place] [address] documented as of this encounter Results * Vitamin B12 (07/01/2017 10:47 AM EDT) Vitamin B12 644 207 - 974 pg/mL [facility] Blood specimen (specimen) 07/01/2017 10:47 AM EDT 07/01/2017 10:55 AM EDT Narrative Resulting Agency Comment Spec In Lab Rodrigo Conteh MD CHEMISTRY ORDERAB LES [facility] [place] [address] * (ABNORMAL) Hemoglobin A1c (07/01/2017 10:47 AM EDT) Hemoglobin A1c 11.5(H) 4.3 - 5.6 % [facility] Comment: Reference Range: 4.3 [...] Mellitus, Diabetes Care 2013; 36: Suppl. 1, A57-00 Estimated Average Glucose 283 mg/dL [facility] Comment: eAG equivalents for [...] into estimated average glucose values. ??Diabetes Care 2008:31(8):6373-8053. Blood specimen (specimen) 07/01/2017 10:47 AM EDT 07/01/2017 10:55 AM EDT Narrative Resulting Agency Comment Spec In Lab Rodrigo Conteh MD CHEMISTRY ORDERAB LES [facility] [place] [address] documented in this encounter Visit Diagnoses Diagnosis Type 2 diabetes, uncontrolled, with neuropathy Type II or unspecified type diabetes mellitus with neurological manifestations, uncontrolled Type 2 diabetes mellitus with hyperglycemia, with long-term current use of insulin Vitamin D insufficiency Unspecified vitamin D deficiency Dyslipidemia Other and unspecified hyperlipidemia documented in this encounter Care Teams Sand Wheeler Relationship Specialty Start Date End Date Sravani Salas APRN [address] [place] [address] PCP - General Family Medicine 01/15/17 documented as of this encounter
--- OUTSIDE RECORDS SUMMARY | 2024-08-14 01:25 | XMS_ITS | Encounter Summary ---
Author Organization [facility] [place] [address] Care Team Providers Care Manager Reliability Name Role Phone Sravani Salas APRN Primary Care Provider [phone] Reason for Referral * Surgical (Routine) - Specialty Diagnoses / Procedures Referred By Nii hoffman Referred To Contact Diagnoses Complex regional pain syndrome type 2 of right upper extremity Procedures Stellate Ganlion Block Alberta Gamez, [facility] [place] [address] Referral ID Status Reason Start Date Expiration Date V isits Requested Visits Authorized [id number] Consult, Test & Treat 06/05/2017 06/05/2018 1 1 Reason for Visit * Reason Comments Arm Pain right arm * Surgical (Routine) - Closed Specialty Diagnoses / Procedures Referred By Nii hoffman Referred To Contact Pain Management Diagnoses Ulnar neuropathy of right upper extremity Right Stellate Ganglion Block-METFORMIN NPO Procedures PRO INJECT NERV BLCK, STELLATE GANGLION PROCEDURE 2 Sravani Salas APRN [address] [place] [address] Michel Orr MD [facility] [place] [address] Referral ID Status Reason Start Date Expiration Date Visits Re quested Visits Authorized [id number] Closed 06/05/2017 06/05/2018 1 1 Encounter Details Date Type Department Care Team (Latest Contact Info) Description 06/05/2017 3:15 PM EDT Procedure visit Pain Management at [facility], [facility] [place] [facility] [address] Michel Orr MD [facility] [place] [address] Complex regional pain syndrome type 2 of right upper extremity (Primary Dx) Social [...] Sign Reading Time Taken Comments Blood Pressure 141/83 06/05/2017 3:41 PM EDT Pulse 74 06/05/2017 3:41 PM EDT Temperature - - Respiratory Rate - - Oxygen Saturation 99% 06/05/2017 3:41 PM EDT Inhaled Oxygen Concentration - - Weight 90.7 kg (200 lb) 06/05/2017 2:53 PM EDT Height 170.2 cm (5' 7) 06/05/2017 2:53 PM EDT Body Mass Index 31.32 06/05/2017 2:53 PM EDT documented in this encounter Patient Instructions * Patient Instructions* Terri Chicas RN - 06/05/2017 3:15 PM EDT Pain Management Center Discharge Instructions: You were seen by Dr. Michel Orr MD and Alberta Gamez DO who performed Right Stellate Ganglion Block. It is normal that the injection [...] Care Provider. You received the following medications: Dexamethasone Sodium Phosphate 10 mg. During regular business hours, please phone the [...] or proceed to your local emergency department. Newton Chicas RN. Special instructions documented in this encounter Progress Notes * Terri Chicas RN - 06/05/2017 3:15 PM EDT Pre-Procedure Screening Questions: 1. Status: No 2. Patient states they have a package car driver to transport after procedure? Yes 3. Patient taking antibiotics at present? No 4. NPO per Pain Management Center protocol? No 5. Patient diabetic: Yes Patient routinely taking anticoagulants ? No Patient Vital Signs documented in Doc Flowsheets associated with this encounter. Patient Discharge Instructions were reviewed with patient and copy provided to patient. * Michel Orr MD - 06/05/2017 3:15 PM EDT I was the attending physician supervising the pain fellow in the above care and I was present for the procedure which was performed today in its entirety. Michel Orr MD [facility] Board Certified Black Oxide Operator documented in this encounter Procedure Notes * Alberta Gamez E - 06/05/2017 3:15 PM EDTAssociated Order(s): STELLATE GANGLION BLOCK Pre-Procedure Diagnose(s): Complex regional pain syndrome type 2 of right upper extremity RIGHT Stellate Ganglion block Patient presents for a stellate ganglion block right side. Comments: History of right ulnar nerve injury, CRPS type II Informed consent obtained from the patient, risks to include bruising, soreness, infection, nerve injury, Brenda's syndrome, sinus congestion, hoarseness, recurrent laryngeal nerve block, trouble swallowing, pneumothorax, spinal anesthetic, intravascular injection, reaction to medication, seizures,no relief of pain. All of his questions were answered and consent was obtained. An IV was started. Patient was placed supine on a fluoroscopic table. Appropriate monitors were applied. Timeout was taken. The right side neck was marked pre-procedure. Chlorhexidine prep was carried out over the site and sterile drapes applied. Fluoroscopy was used to identify the uncinate at the level of (C6). The Colten beam was angled slightly oblique. The carotid was palpated and was lateral to the needle entry site. The skin and subcutaneous structures were anesthetized with lidocaine 2%. A 25 g 3.5 inch spinal needle was advanced using fluoroscopic guidance to the junction of the C6 transverse process and vertebral body, just inferior to the uncinate process, until bone was contacted.Omnipaque 240 was injected under live Fluoroscopy and in AP and lateral views. There was dye spreadalong the anterolateral surface of C6; there was no evidence of intravascular uptake. With the needle in a fixed position and with negative aspiration for heme, CSF or air 15 ml of 0.25% bupivacaine was given slowly in 2 ml aliquots with negative aspirations and no paresthesias. The patient tolerated the procedure well. Temperature change: Right hand was 86.2 degrees Fahrenheit at start of procedure and 91.5 degrees Fahrenheit at completion of procedure. Comments: no complications. 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 Meds for anxiolysis: None. Procedure was performed by attending, Dr. Orr. I am acting as a scribe. Alberta Gamez DO [facility] Pain Medicine Fellow documented in this encounter Plan of Treatment Upcoming Encounters Date Type Department Care Team (Late st Contact Info) Description 08/18/2024 10:30 AM EST Office Visit Endocrinology at [facility] [place] [address] Rodrigo Conteh MD [facility] [place] [address] documented as of this encounter Procedures Procedure Name Priority Date/Time Associated Diagnosis Comments STELLATE GANGLION BLOCK Routine 06/05/2017 5:57 PM EDT Complex regional pain syndrome type 2 of right upper extremity documented in this encounter Results * Stellate Ganlion Block (06/05/2017 5:57 PM EDT) Narrative Alberta Gamez - 06/05/2017 5:57 PM EDT Alberta Gamez, DO ? 06/05/2017 ??5:57 PM RIGHT Stellate Ganglion block Patient presents for a stellate ganglion block right side. ?? Comments: History of right ulnar nerve injury, CRPS type II Informed consent obtained from the patient, risks to include bruising, soreness, infection, nerve injury, Brenda's syndrome, sinus congestion, hoarseness, recurrent laryngeal nerve block, trouble swallowing, pneumothorax, spinal anesthetic, intravascular injection, reaction to medication, seizures, no relief of pain. All of his questions were answered and consent was obtained. An IV was started. Patient was placed supine on a fluoroscopic table. Appropriate monitors were applied. Timeout was taken. The right side neck was marked pre-procedure. Chlorhexidine prep was carried out over the site and sterile drapes applied. Fluoroscopy was used to identify the uncinate at the level of ??(C6). The Colten beam was angled slightly oblique. The carotid was palpated and was lateral to the needle entry site. The skin and subcutaneous structures were anesthetized with lidocaine 2%. A 25 g 3.5 inch spinal needle was advanced using fluoroscopic guidance to the junction of the C6 transverse process and vertebral body, just inferior to the uncinate process, until bone was contacted. Omnipaque 240 was injected under live Fluoroscopy and in AP and lateral views. There was dye spread along the anterolateral surface of C6; there was no evidence of intravascular uptake. With the needle in a fixed position and with negative ?? aspiration for heme, CSF or air 15 ml of ??0.25% bupivacaine was given slowly in 2 ml aliquots with negative aspirations and no paresthesias. The patient tolerated the procedure well. Temperature change: ?Right hand was 86.2 degrees Fahrenheit at start of procedure and 91.5 degrees Fahrenheit at completion of procedure. Comments: no complications. 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 Meds for anxiolysis: None. Procedure was performed by attending, Dr. Orr. I am acting as a scribe. Alberta Gamez DO [facility] Pain Medicine Fellow Michel Orr MD PROCEDURE/MINOR SURG ICAL ORDERABLES documented in this encounter Visit Diagnoses Diagnosis Complex regional pain syndrome type 2 of right upper extremity- Primary Type 2 diabetes mellitus with hyperglycemia, with long-term current use of insulin Vitamin D insufficiency Unspecified vitamin D deficiency Dyslipidemia Other and unspecified hyperlipidemia documented in this encounter Administered Medications Inactive Administered Medications - up to 3 most recent administrations Medication Order MAR Action Action Date Dose Rate Site BUpivacaine (PF) (MARCAINE) 0.25 % (2.5 mg/mL) injection 37.5 mg 37.5 mg, Subcutaneous, ONCE, 1 dose, On Sat06/05/17 at 1615, Routine Given 06/05/2017 4:15 PM EDT 37.5 mg iohexol (OMNIPAQUE) 240 mg/mL solution 1 mL 1 mL, Other, ONCE, 1 dose, On 06/05/17 at 1615, Wasted 49 mL, Routine Given 06/05/2017 4:15 PM EDT 1 mL lactated Ringers infusion 100 mL 100 mL, Intravenous, ONCE, 1 dose, On Sat06/05/17 at 1615 New Bag 06/05/2017 4:15 PM EDT 100 mLs documented in this encounter Care Teams Manager Reliability Relationship Specialty Start Date End Date Sravani Salas APRN [address] [place], [place] [id number] PCP - General Family Medicine 01/15/17 documented as of this encounter
--- OUTSIDE RECORDS SUMMARY | 2024-08-14 01:25 | XMS_ITS | Encounter Summary ---
Author Organization [facility] [place] [address] Care Team Providers Care Pulvi Mixer Operator Name Role Phone Sravani Salas APRN Primary Care Provider [phone] Reason for Visit * Reason Onset Date Comments Medication Refill 04/03/2017 Encounter Details Date Type Department Care Team (Late st Contact Info) Description 04/03/2017 Refill [place] [phone] Rodrigo Conteh MD [facility] [place] [address] Social History Tobacco Use Types Packs/Day Years [...] 10:30 AM EST Office [place] [phone] Rodrigo Conteh MD [facility] [place] [address] [place] [address] documented as of this encounter Visit Diagnoses Not on filedocumented in this encounter Care Teams Pulvi Mixer Operator Relationship Specialty Start Date End Date Sravani Salas APRN [address] [place] [address] PCP - General Family Medicine 01/15/17 documented as of this encounter
--- OUTSIDE RECORDS SUMMARY | 2024-08-14 01:25 | XMS_ITS | Encounter Summary ---
Author Organization [facility] [place] [address] Care Team Providers Care Decorating Inspector Name Role Phone Sravani Salas APRN Primary Care Provider [phone] Encounter Details Date Type Department Care Team (Latest Contact Info) Description 07/01/2017 2:00 PM EDT Laboratory Appointment Lab [address] [place] [phone] Type 2 diabetes, uncontrolled, with neuropathy Social [...] 10:30 AM EST Office [place] [address] Rodrigo Conteh MD [facility] [place] [address] documented as of this encounter Procedures Procedure Name Priority Date/Time Associated Diagnosis Comments HEMOGLOBIN A1C Routine 07/01/2017 10:47 AM EDT Type 2 diabetes, uncontrolled, with neuropathy VITAMIN B12 Routine 07/01/2017 10:47 AM EDT Type 2 diabetes, uncontrolled, with neuropathy documented in this encounter Results * Vitamin B12 (07/01/2017 10:47 AM EDT) Vitamin B12 644 207 - 974 pg/mL [facility] Blood specimen (specimen) 07/01/2017 10:47 AM EDT 07/01/2017 10:55 AM EDT Narrative Resulting Agency Comment Spec In Lab Rodrigo Conteh MD CHEMISTRY ORDERAB LES [facility] [place] [address] * (ABNORMAL) Hemoglobin A1c (07/01/2017 10:47 AM EDT) Hemoglobin A1c 11.5(H) 4.3 - 5.6 % [facility] Comment: Reference Range: 4.3 - [...] Mellitus, Diabetes Care 2013; 36: Suppl. 1, Y20-96 Estimated Average Glucose 283 mg/dL [facility] Comment: eAG equivalents for HbA1c [...] into estimated average glucose values. ??Diabetes Care 2008:31(8):1784-3185. Blood specimen (specimen) 07/01/2017 10:47 AM EDT 07/01/2017 10:55 AM EDT Narrative Resulting Agency Comment Spec In Lab Rodrigo Conteh MD CHEMISTRY ORDERAB LES [facility] [place] [address] documented in this encounter Visit Diagnoses Diagnosis Type 2 diabetes, uncontrolled, with neuropathy Type II or unspecified type diabetes mellitus with neurological manifestations, uncontrolled Type 2 diabetes mellitus with hyperglycemia, with long-term current use of insulin Vitamin D insufficiency Unspecified vitamin D deficiency Dyslipidemia Other and unspecified hyperlipidemia documented in this encounter Care Teams Decorating Inspector Relationship Specialty Start Date End Date Sravani Salas APRN [address] [place] [address] PCP - General Family Medicine 01/15/17 documented as of this encounter
--- OUTSIDE RECORDS SUMMARY | 2024-08-14 01:25 | XMS_ITS | Encounter Summary ---
Author Organization [facility] [place] [address] Care Team Providers Care Mortgage Or Loan Underwriter Name Role Phone Sravani Salas APRN Primary Care Provider [phone] Encounter Details Date Type Department Care Team (Latest Contact Info) Description 07/01/2017 2:30 PM EDT Office Visit [place] [id number] Rodrigo Conteh MD [facility] [place] [address] Type 2 diabetes, uncontrolled, with neuropathy; Family [...] Sign Reading Time Taken Comments Blood Pressure 131/80 07/01/2017 2:23 PM EDT Pulse 83 07/01/2017 2:23 PM EDT Temperature - - Respiratory Rate - - Oxygen Saturation - - Inhaled Oxygen Concentration - - Weight 92.4 kg (203 lb 12.8 oz) 07/01/2017 2:23 PM EDT Height 170.2 cm (5' 7) 07/01/2017 2:23 PM EDT Body Mass Index 31.92 07/01/2017 2:23 PM EDT documented in this encounter Patient Instructions * Patient Instructions* Rodrigo Conteh MD - 07/01/2017 2:30 PM EDT Recent Results (from the past 24 hour(s)) Hemoglobin A1c Result Value Ref Range Hemoglobin A1C 11.5 (H) 4.3 - 5.6 % Est Avg Gluc 283 mg/dL Vitamin B12 Result Value Ref Range Vitamin B-12 644 207 - 974 pg/mL BP 131/80 Pulse 83 Ht 170.2 cm (5' 7) Wt 92.4 kg (203 lb 12.8 oz) BMI 31.92 kg/m2 Plan: 1. Medication: Adjustment of diabetes treatment regimen: To stop lantus and Humalog high dose nightly for now (he used 70u lantus + 60u Humalog = 130u nightly) and still having high BG in AM and daytime. To start U-500 insulin pen 100-150u BID to start with and may need TID later. will allow him to adjust by 5-10 units until fasting BG at target of 90-180 range (ok not to use victoza or Trulicity pendue to cost) To cont glimiperide 4 mg bid and metformin 1000 mg bid To check FSBG more often tid ac & hs and may give Humalog kwickpen sliding scale p.r.n if BG>180 based on 1u:10BG ratio To eat low carb diet to prevent high BG until his islets recover well making insulin more otherwisehe is allowed to use 1u:5g carb for meal at present (and less later when he is better) To continue all other medications and cont taking OTC-B12 1,000 mcg po qd as well for neuropathy but better DM control is critical for him. To contact civil draftsman if he still needs Imdur or not before he considers taking cialis or viagra for ED 2. Monitoring: to check FSBG before each meal and at bedtime. Target BG 90-180 while fasting and 90-180 pre-meal during daytime Target A1c < 9% soon in 6-8 weeks for this patient and ~7% as his target. 3. Diet and exercise: low fat/controlled carb diet & exercise as tolerated to keep weight down or at least stable. Patient will keep log of blood glucose and insulin used for review at next visit. 4. Lab: Already checked lab as above. 5. RTC: Next visit in 6 weeks and will need to keep A1c <9% soon. Will check both HbA1c at the time (Quick draw lab before visit with us on the same day). documented in this encounter Progress Notes * Rodrigo Conteh MD - 07/01/2017 2:30 PM EDT Endocrine Clinic Name: Reid Medrano : 1965 Date: 07/01/2017 PCP: rSavani Salas APRN Reason for visit: Follow-up uncontrolled diabetes type 2 (quit victoza in December 2016 due to high cost) Diabetes treatment regimen: Metformin 1000 mg bid and glimiperide 4 mg bid Humalog pen 60u nightly and sliding scale qid p.r.n for high BG>180 Lantus 70u qhs, self titration up to the maximal dose on the pen FSBG: only checking p.r.n and he does not like to check FSBG testing 4x/day as he felt very frustrated with high BG values and already dialled insulin pens to the max dose lately. Most recent HA1c: 11.5% today (was 9..2% in , 11.5% on 09/15/15, 12.4% 06/10/15 , 14.6% on 06/19/13 and 9.5% on 02/24/13) Ref. Range 02/24/2013 13:09 06/19/2013 13:57 06/10/2015 12:30 09/15/2015 12:06 04/03/2016 10:15 Hemoglobin A1C Range: 4.3 - 5.6 % 9.5 (H) 14.6 (H) 12.4 (H) 11.5 (H) 9.2 (H) => 11.5% today Hypoglycemia during the interval time: none. He noted stomach issues if BG is getting low before hehas sweating or shakiness but very rare 2x over the past 6mo Diet: low fat/low carb diet Exercise: walking Complications: no changes during the interim. Prevention: same as last visit recently. He is not doing well with high BG 200s-400s often after he quit using victoza in December 2016 due to high cost ($150/mo) and his PCP already started on lantus 10-30u qhs but fasting BG now remains high in 200s and random BG 390 at the visit today. He feels very frustrated as he already titrated insulindose to the max dose on both pens (lantus & Humalog) nightly! Denies any low BG at night and AM BG remained high in 200s. He feels tired, with some polyuria/polydipsia with high A1c up to 11.5% today. He had to use lots of Humalog sliding scale insulin 20-30u p.r.n for high [...] to Visit Medication Sig Dispense Refill ??? NALTREXONE HCL (NALTREXONE ORAL) Take by mouth. ??? DULoxetine (CYMBALTA) 60 mg Capsule, Delayed Release(E.C.) Take 60 mg by mouth daily. ??? insulin aspart (NOVOLOG) Insulin Pen Inject 1-10 Units subcutaneously 4 times daily as needed for High Blood Sugar. 45 mL 3 ??? pen needle, diabetic (NOVOFINE PLUS) 32 gauge x 1/6 Needle 1 each by [facility].(Non-Drug; Combo Route) route 4 times daily as needed. 100 each 11 ??? lidocaine (XYLOCAINE) 5 % Ointment Apply topically 2 times daily. Reported on 03/26/2017 1 ??? traZODone (DESYREL) 50 mg Tablet Take 50-100 mg by mouth nightly. ??? allopurinol (ZYLOPRIM) 300 mg Tablet Take 300 mg by mouth daily. ??? aspirin 325 mg Tablet Take 325 mg by mouth daily. ??? sildenafil (VIAGRA) 50 mg Tablet Take 1 tablet by mouth as needed for Erectile Dysfunction. 30 tablet 11 ??? gabapentin (NEURONTIN) 300 mg Capsule [...] as instructed 400 each 3 ??? Insulin [place], Disposable, (BD INSULIN PEN NEEDLE UF MINI) [...] ??? Not on file Social History Narrative FAMILY HISTORY Family History Problem Relation Age of Onset ??? Diabetes Brother Physical exam BP 131/80 Pulse 83 Ht 170.2 cm (5' 7) Wt 92.4 kg (203 lb 12.8 oz) BMI 31.92 kg/m2 Appearance: mildly obese, pleasant, NAD, here with his HEENT: KESH[place]ANYEL[place] Neck: no goiter Abdomen: benign, NT, ND [...] 5.6 % Est Avg Gluc 283 mg/dL Vitamin B12 Result Value Ref Range Vitamin B-12 644 207 - 974 pg/mL Assessment: 52 y.o. man with severe insulin resistance and uncontrolled type 2 Diabetes - worsening control after he had to quit taking victoza in ~6 mo ago (as it was too costly $150/mo even with insurance coverage), despite having high c- peptide 7.3 from his own insulin production. He started using Lantus 10-30u qhs as prescribed by his PCP but BG remains high, so he already titrated the dose gradually up to 70 units nightly (dial up to the max dose) but BG remained high in AM. Moreover, he also used Humalog 60 u nightly but still has high BG 200s- 300s. Random BG at clinic was 390 mg/dl and A1c of 11.5% is now too high. He will need to double insulin use and will switch to U-500 pen to be ableto give smaller volume with better insulin absorption. He used to switched back from severely uncontrolled DM with high A1c 12.4-14.6% range down to 9.2% in Apr 2016 and spring 2016. He has been using a lot of insulin sliding scale p.r.n for high BG correction and tried to eat low carb and mostly not eating anything during daytime with 1 main meal at dinner. He will need a lot more insulin to help get him out of glucotoxicity soon. He had redo surgery 3rd time in for Rt ulnar nerve transposition surgery (1st surgery and 2nd surgery in). Complication Risk Status: + complications present with painful peripheral neuropathy and ED. Also, treated for CAD s/p stent RCA in 01/07 at young age of 42, HTN, Chol, gout and asymptomatic ontreatment. Plan: 1. Medication: Adjustment of diabetes treatment regimen: To stop lantus and Humalog high dose nightly for now (he used 70u lantus + 60u Humalog = 130u nightly) and still having high BG in AM and daytime. To start U-500 insulin pen 100-150u BID to start with and may need TID later. will allow him to adjust by 5-10 units until fasting BG at target of 90-180 range (ok not to use victoza or Trulicity pendue to cost) To cont glimiperide 4 mg bid and metformin 1000 mg bid To check FSBG more often tid ac & hs and he may give Humalog kwickpen sliding scale p.r.n if [...] control is critical for him. To contact civil draftsman if he still needs Imdur or not before he considers taking cialis or viagra for ED 2. Monitoring: to check FSBG before each meal and at bedtime. Target BG 90-180 while fasting and 90-180 pre-meal during daytime Target A1c < 9% soon in 6-8 weeks for this patient and ~7% as his target. 3. Diet and exercise: low fat/controlled carb diet & exercise as tolerated to keep weight down or at least stable. Patient will keep log of blood glucose and insulin used for review at next visit. 4. Lab: Already checked lab as above. 5. RTC: Next visit in 6 weeks and will need to keep A1c <9% soon. Will check both HbA1c, BMP, dLDL, urine microalbumin/Cr at the time (Quick draw lab before [...] care. Rodrigo Conteh MD, PhD, FACE CC: Sravnai Salas APRN documented in this encounter Plan of Treatment Upcoming Encounters Date Type Department Care Team (Late st Contact Info) Description 08/18/2024 10:30 AM EST Office Visit [place] [address] Rodrigo Conteh MD [facility] [place] [address] documented as of this encounter Results * LDL Cholesterol, Direct (06/16/2018 11:51 AM EDT) LDL Cholesterol, Direct 63 mg/dL [facility] Comment: Lowest Risk: <100 mg/dL Lower Risk: 100-129 mg/dL Borderline High Risk: 130-159 mg/dL High Risk: 160-189 mg/dL Very High Risk: >dw=617 mg/dL Blood specimen (specimen) 06/16/2018 11:51 AM EDT 06/16/2018 12:01 PM EDT Narrative Resulting Agency Comment Spec In Lab Rodrigo Conteh MD CHEMISTRY ORDERAB LES [facility] [place] [address] * (ABNORMAL) Hemoglobin A1c (06/16/2018 11:51 AM EDT) Hemoglobin A1c 7.7(H) 4.3 - 5.6 % [facility] Comment: Reference Range: [...] Mellitus, Diabetes Care 2013; 36: Suppl. 1, S67-26 Estimated Average Glucose 174 mg/dL [facility] Comment: eAG equivalents [...] into estimated average glucose values. ??Diabetes Care 2008:31(8):3661-7833. Blood specimen (specimen) 06/16/2018 11:51 AM EDT 06/16/2018 12:01 PM EDT Narrative Resulting Agency Comment Spec In Lab Rodrigo Conteh MD CHEMISTRY ORDERAB LES Performing Organization Address City/State/[facility] Co de Phone Number [facility] [place] [address] documented in this encounter Visit Diagnoses Diagnosis [...] documented in this encounter Care Teams Mortgage Or Loan Underwriter Relationship Specialty Start Date End Date Sravani Salas APRN [address] [place] [address] PCP - General Family Medicine 01/15/17 documented as of this encounter
--- OUTSIDE RECORDS SUMMARY | 2024-08-14 01:25 | XMS_ITS | Encounter Summary ---
[place] [address] Care Team Providers Care Ornamental Metal Worker Helper Name Role Phone Josue Sravani Rosen CADY Primary Care Provider [phone] Encounter Details Date Type Department Care Team (Late st Contact Info) Description 08/06/2017 [place]phone [place] [address] Melissa Addison RN Social History Tobacco Use [...] Telephone Encounter - Melissa Addison RN - 08/06/2017 1:43 PM EST Opened in error documented in this encounter Plan of Treatment Upcoming Encounters Date Type Department Care Team (Late st Contact Info) Description 08/18/2024 10:30 AM EST Office [place] [phone] Rodrigo Conteh MD [facility] [place] [address] documented as of this encounter Visit Diagnoses Not on filedocumented in this encounter Care Teams Ornamental Metal Worker Helper Relationship Specialty Start Date End Date Sravani Salas, CADY [address] [place] [address] PCP - General Family Medicine 01/15/17 documented as of this encounter
--- OUTSIDE RECORDS SUMMARY | 2024-08-14 01:25 | XMS_ITS | Encounter Summary ---
[place] [address] Care Team Providers Care Ged Instructor Name Role Phone Sravani Salas APRN Primary Care Provider [phone] Encounter Details Date Type Department Care Team (Late st Contact Info) Description 02/04/2017 [place] [phone] Kathy Miller LPN Social History Tobacco Use [...] Telephone Encounter - Rodrigo Conteh MD - 02/08/2017 12:27 AM EDT Ok to see sooner on 03/26 as scheduled. RODRIGO CONTEH MD * Telephone Encounter - Kathy Miller LPN - 02/04/2017 3:18 PM EDT Call from .Card for $25/month for Victoza can no longer be used. $148/month after insurance can't afford. Has been out of Victoza for ~ 2weeks. Called PCP who told patient he needs to be seen by Dr Conteh that he doesn't know what to do for him Is scheduled for 06/17/18. Forward to Dr Conteh for possible sooner appointment. Will be here at [facility] on 02/07/17 for pain clinic appoitnment documented in this encounter Plan of Treatment Upcoming Encounters Date Type Department Care Team (Late st Contact Info) Description 08/18/2024 10:30 AM EST Office [place] [address] Rodrigo Conteh MD [facility] [place] [address] documented as of this encounter Visit Diagnoses Not on filedocumented in this encounter Care Teams Ged Instructor Relationship Specialty Start Date End Date Sravani Salas APRN [address] [place] [address] PCP - General Family Medicine 01/15/17 documented as of this encounter
--- OUTSIDE RECORDS SUMMARY | 2024-08-14 01:25 | XMS_ITS | Encounter Summary ---
Author Organization [facility] [place] [address] Care Team Providers Care Stove Mounter Name Role Phone Linda Galeano MD Primary Care Provider [phone] Reason for Visit * Reason Comments Follow Up Surgery s/p neuroplasty 08/04 Encounter Details Date Type Department Care Team (Late st Contact Info) Description 12/03/2016 2:30 PM EDT Office [place] [address] Galdino Covington MD [facility] [place] [address] Ulnar neuropathy of right upper extremity Social [...] * Patient Instructions* Galdino Covington MD - 12/03/2016 2:30 PM EDT 1. Follow up in 3 months 2. Continue hand therapy documented in this encounter Progress Notes * Galdino Covington MD - 12/03/2016 2:30 PM EDT Plastic Surgery Follow Up Note Reason for visit: F/U status post procedure Date of surgery: 08/31/16 Procedure(s): Right Ulnar Nerve Neurolysis and fat grafting Complications: None reported Pain: 03/11 HPI: Pt presents accompanied by his for today's visit. He still appreciates all of his pre operative symptoms. He has been taking Oxycodone, prescribed by his PCP, for his pain. He is engaging in hand therapy a few times per week. He has not returned to work. He wears a compression sleeve and uses a topical lidocaine gel to help with the pain. Examination: Patient is alert, conversant, comfortable, ambulating Right arm: Several sensitive areas over elbow scar No atrophy of muscle Weakness of abduction 3/5 Numbness on both sides of little finger Numbness of ulnar side of ring finger Incision: CDI, healing well. No collection, no erythema, no evidence of cellulitis. Impression: Isiah Medrano is a 51 y.o. male who was seen today for follow-up after the above procedure. Please see the operative note for details. We discussed the nature of nerve injuries and that they take much longer to heal. I explained that he should improve and heal over time. I suggest that he follow up in 3 months for reevaluation. Worker's comp paperwork was completed today. Plan: 1. Follow up in 3 months 2. Continue hand therapy ICharu, am acting as scribe for Dr. Covington. All work documented was performed by Dr. Covington. ???I performed the above scribed service and agree with the accuracy of the note?? 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
--- OUTSIDE RECORDS SUMMARY | 2024-08-14 01:25 | XMS_ITS | Encounter Summary ---
Author Organization [facility] Address [facility] [place] [address] Care Team Providers Care Vacuum Technician Name Role Phone Linda Galeano MD Primary Care Provider [phone] Reason for Visit * Reason Onset Date Comments Medication Refill 09/06/2016 Encounter Details Date Type Department Care Team (Late st Contact Info) Description 09/06/2016 Ref[place] [address] Angel Monte MD [facility] [place] [address] Social History Tobacco Use Types Packs/Day Years [...] encounter Miscellaneous Notes * Telephone Encounter - Jane Yen RN - 09/06/2016 4:14 PM EST Reason for call: called and stated he has been taking Oxycodone 5mg every 4hrs for pain and is requesting a refill. Pain is 8 /10 on average, states that he complains about burning sensations and has been quiteuncomfortable.he has been extending the time, and alternating with extra strength tylenol, but he will be out before his next visit. He is s/p Preoperative diagnosis: right ulnar nerve injury ??Postoperative diagnosis: right ulnar nerve injury ??Procedure(s): NEUROPLASTY &/OR TRANSPOSITION, ULNAR NERVE AT ELBOW (WRVU 7.26) TISSUE GRAFT, PARATENON, FAT, DERMIS (OTHER) (WRVU 5.79) On 08/31/16 Prescriptions given since surgery one: Assessment: Pain secondary to surgery Plan: Prescription request discussed with Dr. Monte Refill approved for Oxycodone 5mg Q 4hrs #25 Verbal order given per to PCP's office to supply script to pt. Advised to supplement narcotic with the tylenol and motrin as instructed in our Narcotic Use & Post-Operative Pain handout F/u appointment on 09/13/15 with Amalia Ribeiro APRN Pt.'s verbalizes understanding of care plan and will call back if symptoms worsen. documented in this encounter Plan of Treatment Upcoming Encounters Date Type Department Care Team (Late st Contact Info) Description 08/18/2024 10:30 AM EST Office [place] [address] Rodrigo Conteh MD [facility] [place] [address] documented as of this encounter Visit Diagnoses Not on filedocumented in this encounter Care Teams Vacuum Technician Relationship Specialty Start Date End Date Linda Galeano MD [address] [place] [address] PCP - General 07/25/10 01/14/17 documented as of this encounter
--- OUTSIDE RECORDS SUMMARY | 2024-08-14 01:25 | XMS_ITS | Encounter Summary ---
Author Organization [facility] Address [place] [address] Care Team Providers Care Blindstitch Machine Operator Name Role Phone Linda Galeano MD Primary Care Provider [phone] Reason for Visit * Auth/Cert Specialty Diagnoses / Procedures Referred By Contac t Referred To Contact Diagnoses ulnar nerve injury Procedures PRO REVISE ULNAR NERVE AT ELBOW PRO TISSUE GRAFTS, OTHER (E.G. AUTOLOGOUS FAT GRAFT) NEUROPLASTY &/OR TRANSPOSITION, ULNAR NERVE AT ELBOW Referral ID Status Reason Start Date Expiration Date Visits Re quested Visits Authorized [id number] 1 1 Encounter Details Date Type Department Care Team (Latest Contact Info) Description 08/31/2016 6:28 AM EST - 08/31/2016 3:32 PM [facility] Hospital Encounter [place] [address] Galdino Covington MD [facility] [place] [address] Discharge Disposition: Home Social History Tobacco Use [...] Sign Reading Time Taken Comments Blood Pressure 115/77 08/31/2016 1:13 PM EST Pulse 89 08/31/2016 11:27 AM EST Temperature 36.3 ??C (97.3 ??F) 08/31/2016 11:[address] Respiratory Rate 18 08/31/2016 7:14 AM EST Oxygen Saturation 95% 08/31/2016 3:24 PM EST Inhaled Oxygen Concentration - - Weight 90.7 kg (200 lb) 08/31/2016 7:14 AM EST Height 170.2 cm (5' 7) 08/31/2016 7:14 AM EST Body Mass Index 31.32 08/31/2016 7:14 AM EST documented in this encounter Discharge Instructions * Discharge Instructions* Dolores Jalloh RN - 08/31/2016 11:37 AM EST POST ANESTHESIA INSTRUCTIONS Go home, rest, [...] away in 12-24 hours. * Patient Instructions* Angel Monte MD - 08/31/2016 7:15 AM EST PLASTIC SURGERY DISCHARGE INSTRUCTIONS WOUND CARE: OK to shower in 2 days but keep right arm splint dry. Do not submerge in water until cleared by MD. Keep dressing clean dry and intact. You must avoid sunlight exposure to your incision(s). Do not use ointments on the incisions postoperatively unless instructed by MD. ACTIVITIES: Minimize contact to right arm and abdomen. Keep right arm elevated. No heavy lifting until seen by MD. No driving or operating heavy machinery when on narcotics. DIET: Slowly advance diet as tolerated to a regular healthy diet. CALL MD IF: Increased pain, numbness, tingling, weakness, swelling, bruising, bleeding, or any other concerningsigns/symptoms FOLLOW UP: Future Appointments and Orders Future Appointments Provider Department Dept Phone 09/07/2016 10:20 AM Amalia Ribeiro APRN Plastic Surgery [phone] Suture removal in 2 weeks. MEDICATIONS: Your Medications Notice Some of the medications listed here do not show instructions, such as how often to take the medication. Ask your doctor or nurse how to use these medications. Specifically ask about these and similar medications: - allopurinol (ZYLOPRIM) 300 mg tablet - aspirin 325 mg EC tablet - FLUoxetine (PROZAC) 20 mg tablet New Medications Dose Details oxyCODONE 5 mg Tab Commonly known as: ROXICODONE Take 1 tablet by mouth every 4 hours as needed for Pain. 5 mg Quantity: 20 tablet Refills: 0 Continued medications, unchanged Dose Details allopurinol 300 mg Tab Commonly known as: ZYLOPRIM ?nk?wn!?? Refills: 0 aspirin 325 mg Tbec ?nk?wn!?? Refills: 0 atorvastatin 40 mg Tab Commonly known as: LIPITOR 20 mg daily. 20 mg Refills: 0 blood sugar diagnostic strips [facility] Commonly known as: ONETOUCH ULTRA TEST 1 each by Other route 4 times daily. Use as instructed 1 each Quantity: 400 each Refills: 3 FLUoxetine 20 mg Tab Commonly known as: PROzac ?nk?wn!?? Refills: 0 gabapentin 300 mg Cap Commonly known as: NEURONTIN Take 300 mg by mouth every 3 hours. 300 mg Refills: 3 glimepiride 4 mg Tab Commonly known as: AMARYL Take 1 tablet by mouth 2 times daily. 4 mg Quantity: 180 tablet Refills: 3 glucagon (human recombinant) 1 mg/mL Solr Inject 1 mL into the muscle as needed. 1 mg Quantity: 1 each Refills: prn insulin aspart protamine-insulin aspart 70/30 Inpn Commonly known as: NovoLOG MIX 70/30 PEN Inject 2-20 units subcutaneously 4 times daily as needed for high blood sugar >200 Quantity: 75 mL Refills: 11 Insulin Lispro 100 unit/mL Inpn Commonly known as: humaLOG KwikPen Inject 1-10 Units subcutaneously 4 times daily as needed (per sliding scale). 1 box of 5 pens free with coupon 1-10 Units Quantity: 15 mL Refills: 12 insulin needles (disposable) 31 gauge x 3/16 Ndle Commonly known as: BD INSULIN PEN NEEDLE UF MINI by Other route. 1 box = 100 insulin PEN needles. Quantity: 1 Box Refills: 11 insulin needles (disposable) 31 gauge x 5/16 Ndle Refills: 0 Insulin Syringe-Needle U-100 1 mL 31 gauge x 5/16 Syrg Commonly known as: BD INSULIN SYRINGE ULT-FINE II 1 each by [facility] [place].(Non-Drug; Combo Route) route 2 times daily (before meals). 1 each Quantity: 100 each Refills: 11 liraglutide 0.6 mg/0.1 mL (18 mg/3 mL) Pnij Commonly known as: VICTOZA Inject 1.8 mg subcutaneously daily. 1.8 mg Quantity: 27 Syringe Refills: 3 lisinopril 20 mg Tab Commonly known as: PRINIVIL;ZESTRIL Take 20 mg by mouth daily. 20 mg Refills: 0 magnesium oxide 400 mg Tab Commonly known as: MAG-OX Take 400 mg by mouth daily. 400 mg Refills: 3 metFORMIN 500 mg Tab Commonly known as: GLUCOPHAGE Take 1,000 mg by mouth 2 times daily (with meals). 1000 mg Refills: 0 meTOPROLOL succinate 25 mg Tablet sr Commonly known as: TOPROL-XL daily. Refills: 0 multivitamin Tab Commonly known as: THERAGRAN Take 1 tablet by mouth daily. 1 tablet Refills: 0 sildenafil 50 mg Tab Commonly known as: VIAGRA Take 1 tablet by mouth as needed for Erectile Dysfunction. 50 mg Quantity: 30 tablet Refills: 11 NARCOTICS: You may be given a prescription for a narcotic medication immediately following your surgery. Narcotics are prescribed for short-term use to help treat your pain. Surgical pain requiring narcotics will usually be greatly decreased 2-3 days after surgery & should be mild to absent by 10-14 days. We will only prescribe a narcotic pain reliever for 2 weeks following your surgery. This will be determined by your surgeon. Narcotics do not reduce inflammation and it is inflammation that is usually a major cause of pain after surgery. Narcotics have many side effects such as constipation, lightheadedness, dizziness, sedation, confusion, nausea and vomiting. Driving and the use of alcohol are not recommended while you are using narcotic pain medications. Non-steroidal anti-inflammatories (NSAIDS) such as aspirin, Aleve and ibuprofen (Advil, Motrin) aremedications that reduce pain and inflammation. If you find your pain is not adequately controlled with the prescribed dose of your narcotic pain medication, NSAIDS may be used 48 hours after surgery with your narcotic to help alleviate the pain caused by inflammation. As you progress through your post-operative period, your pain should decrease and the use of narcotic medications should be less necessary. To reduce your chance of side effects, it is recommended that you save your narcotic medication for nighttime use and switch to NSAIDS or Acetaminophen (Tylenol) during the day. Alternative means of pain relief such as rest and relaxation, positioning, as well as decreasing stimulants such as coffee, tea, soft drinks, and nicotine may also help to alleviate pain. If you continue to experience significant pain 4-5 days after your procedure, it may be necessary to be re-evaluated by your physician. PRESCRIPTION RENEWALS: Renewal requests should be called in to our prescription line at [phone]. Narcotic renewals may be requested from 8am-4pm Saturday through Saturday. Due to patient safety, narcotic renewals will not be honored after hours or on weekends. It is best to make your request 2-3 days before you run out of your medication as it will take at least 24 hours for physician approval and nurse follow-up. Note that certain prescriptions, such as Percocet, Oxycodone, Vicodin, & Hydrocodone can not becalled in to a pharmacy and must be picked up by the patient. CONTACT INFORMATION: During office hours: Saturday through Saturday 8 am to 5 pm Call [phone] On weekends or after hours: Call [phone] and ask the straw hat machine operator to page the Plastic Surgery Resident post tronic machine operator. documented in this encounter Medications at Time of Discharge Medication Sig Dispensed Refills Start Date End Date gabapentin (NEURONTIN) 300 mg Capsule Take 900 [...] 31 x 5/16 Syrg 1 each by [facility] [place].(Non-Drug; Combo Route) route 2 times daily (before meals). 100 each 11 11/04/2012 oxyCODONE (ROXICODONE) 5 mg Tablet Take 1 tablet by mouth every 4 hours as needed for Pain. 20 tablet 08/31/2016 09/13/2016 insulin aspart protamine-insulin aspart 70/30 (NOVOLOG MIX 70/30 PEN) Insulin Pen Inject 2-20 units subcutaneously 4 times daily as needed for high blood sugar >200 75 mL 11 08/03/2016 04/06/2017 sildenafil (VIAGRA) 50 mg Tablet Take 1 tablet by mouth as needed for Erectile Dysfunction. 30 tablet 11 04/23/2016 08/16/2017 Insulin Lispro (HUMALOG KWIKPEN) 100 unit/mL Insulin Pen Inject 1-10 Units subcutaneously 4 times daily as needed (per sliding scale). 1 box of 5 pens free with coupon 15 mL 12 04/03/2016 03/26/2017 liraglutide (VICTOZA) 0.6 mg/0.1 mL (18 mg/3 mL) Pen Injector Inject 1.8 mg subcutaneously daily. 27 Syringe 3 03/07/2016 03/26/2017 insulin needles, disposable, 31 gauge x 5/16 Needle 09/09/2015 02/07/2017 meTOPROLOL succinate (TOPROL-XL) 25 mg Tablet Sustained Release 24 hr Take 25 mg by mouth daily. 05/23/2015 09/08/2019 Insulin [place], Disposable, (BD INSULIN PEN NEEDLE UF MINI) 31 x 3/16 Ndle by Other route. 1 box = 100 insulin PEN needles. 1 Box 11 02/24/2013 06/15/2019 metFORMIN (GLUCOPHAGE) 500 mg tablet Take 1,000 mg by mouth 2 times daily (with meals). 12/26/2018 glucagon, human recombinant, 1 mg/mL injection Inject 1 mL into the muscle as needed. 1 each prn 11/04/2012 02/07/2017 allopurinol (ZYLOPRIM) 300 mg tablet 04/22/2009 02/07/2017 aspirin 325 mg EC tablet 04/22/2009 02/07/2017 FLUoxetine (PROZAC) 20 mg tablet 04/22/2009 02/07/2017 documented as of this encounter H&P Notes * Angel Monte MD - 08/31/2016 7:13 AM EST 24 HOUR INTERVAL H&P S: Isiah Medrano's condition unchanged since H&P originally performed Denies any new ED visits, hospitalizations, trauma, or new events. Has been overall doing well. O: No data found. NAD Non-labored Reg rate Site marked AP: 51 y.o. male with history of right ulnar nerve injury. - After extensive discussion of the risks, benefits, and alteratives of surgical intervention, the patient consented to proceed with surgery. - IV antibiotics ordered - Proceed to OR for: Procedure(s): NEUROPLASTY &/OR TRANSPOSITION, ULNAR NERVE AT ELBOW (WRVU 7.26) TISSUE GRAFT, PARATENON, FAT, DERMIS (OTHER) (WRVU 5.79) Angel Monte MD Plastic Surgery Resident, PGY-7 documented in this encounter Miscellaneous Notes * Op Note - Angel Monte MD - 08/31/2016 11:32 AM EST Operative Note ?? Patient Name: Isiah Medrano : [id number] MR#: [id number] ?? Case Date: 08/31/2016 ?? Surgeon: Surgeon(s) and Role: * Galdino Covington MD - Primary * Angel Monte MD - Resident-Surgeon Adeel ?? Preoperative diagnosis: right ulnar nerve injury ?? Postoperative diagnosis: right ulnar nerve injury ?? Procedure(s): NEUROPLASTY &/OR TRANSPOSITION, ULNAR NERVE AT ELBOW (VU 7.26) TISSUE GRAFT, PARATENON, FAT, DERMIS (OTHER) (VU 5.79) ? Anesthesia: General ?? Findings: Right ulnar nerve above and below elbow with scar tissue. Neuroma in- continuity present just below medial epicondyle. Neurolysis performed then fat grafting. 45 cc of fat harvested from abdomen and then processed with Pure graft. 15 cc of fat used for injection. Posterior long arm splint applied. ?? Complications: None ? Fluids: 800 ml ?? Estimated Blood Loss: 15 mL ?? Drains: None ?? Disposition: awakened from anesthesia, extubated and taken to the recovery room in a stable condition, having suffered no apparent untoward event. ?? Condition: doing well without problems ?? (Please see the Surgical Encounter Summary for any Implant and Specimen details pertinent to this patient.) ?? Infection Bundle used? N/A ?? POST-OP: Splint off in clinic Suture removal in 2 weeks. INDICATIONS FOR PROCEDURE: Mr. Medrano is a 51-year-old male with history of right ulnar nerve transposition at the elbow in January of [address] Covington. The patient continued to have pain and numbness in the ulnar nerve distribution. It was now recommended for the patient to undergo right ulnar nerve neurolysis with fat grafting. DESCRIPTION OF PROCEDURE: The risks, benefits, and alternatives were discussed with the patient prior to procedure. He was brought to the operating room and placed in the supine position with the right arm out. He was identified when he entered the room. He received antibiotics prior to incision. SCDs were on and functioning prior to intubation. The patient underwent general anesthesia. He was prepped and draped in the usual sterile fashion. A time out was performed. We then evaluated the patient's right previous incision along the right ulnar nerve about the elbow. A marking pen was used to justyna out the previous incision and we also extended it 1 cm proximally and 3 cm distally. Marcaine 0.25% with epinephrine was injected along this planned incision site for 10 mL. Marcaine 0.25% with epinephrine was also injected into the abdomen bilaterally for a total of 50 mL. Time allowed for vasoconstrictive effects. An 11 blade was then used to make a small gabriela in the skin in the bilateral lower abdomen. A Mathis cannula attached with a 60 mL syringe was used to obtain 45 mL of fat from the bilateral abdomen. The fat was then processed with the PureGraft system. Then, 15 mL of fat was processed and placed on the back table in 10 mL syringes. We then turned our attention to the right arm. A tourniquet was turned on to 250 mmHg after an esmarch was used to exsanguinate the arm. Scalpel was used to incise over planned incision site over the right ulnar nerve along the previous incision. Scissors along with bipolar were used to dissect down through the subcutaneous tissue. The dissection started proximally where there was no previous dissection to identify the ulnar nerve between the biceps and triceps. The ulnar nerve was identified and this was followed distally. There was extensive amount of scar tissue along the ulnar nerve which was freed from the nerve using sharp dissection as well as bipolar. Care was taken not to damage nerve or any of its branches. We also identified and preserved the medial antebrachial cutaneus nerve. When we were passed the medial epicondyle, we did identify a neuroma which was in continuity with the ulnar nerve. Further distally we excised fascia over the flexor carpi ulnaris to further expose the ulnar nerve. We also dissected the ulnar nerve through the flexor carpi ulnaris heads. We also confirmed that we released the arcade of [place] proximally as well. The ulnar nerve was freed from scar tissue. The nerve was also transposed previously and was anterior to the medial epicondyle in a good location. We decided not to perform a submuscular transposition as the nerve was already in good position. The tourniquet was turned down. Total tourniquet time was 1 hour 3 minutes. Hemostasis was obtained with bipolar. Wound was irrigated and hemostasis confirmed. Dermis and deep layers closed with interrupted 3-0 Vicryl suture and skin closed with running 4-0 nylon suture. We then obtained our processed fat and injected this along the ulnar nerve through the incision using a 10 mL syringe for a total of 14 mL. We then applied Xeroform over the incision followed by ABD and copious amounts of Webril and then a posterior long arm splint was applied. The patient had good perfusion of the hand at the end of the case. We then turned our attention to the abdomen. A 5-0 fast was used to close the 2 small incisions and then Dermabond applied. The patient tolerated the procedure well. There were no complications. All needle, lap, and instrument counts were correct at the end of the case. Associated attestation - Galdino Covington MD - 09/10/2016 12:47 PM EST Attestation: Case Date: 08/31/2016 I was present and I participated during the entire procedure except for the opening and closing which overlapped with the opening or closing of another case. The overlapping portions were non-hayward portions and I was immediately available GALDINO COVINGTON MD 09/10/2016 * Brief Op Note - Angel Monte MD - 08/31/2016 11:30 AM EST Brief Operative Note Patient Name: Isiah Medrano : [id number] MR#: [id number] Case Date: 08/31/2016 Surgeon: Surgeon(s) and Role: * Galdino Covington MD - Primary * Angel Monte MD - Resident-Surgeon Adeel Preoperative diagnosis: right ulnar nerve injury Postoperative diagnosis: right ulnar nerve injury Procedure(s): NEUROPLASTY &/OR TRANSPOSITION, ULNAR NERVE AT ELBOW (WRVU 7.26) TISSUE GRAFT, PARATENON, FAT, DERMIS (OTHER) (WRVU 5.79) Anesthesia: General Findings: Right ulnar nerve above and below elbow with scar tissue. Neuroma in- continuity present just below medial epicondyle. Neurolysis performed then fat grafting. 45 cc of fat harvested from abdomen and then processed with Pure graft. 15 cc of fat used for injection. Posterior long arm splint applied. Complications: None Fluids: 800 ml Estimated Blood Loss: 15 mL Drains: None Disposition: awakened from anesthesia, extubated and taken to the recovery room in a stable condition, having suffered no apparent untoward event. Condition: doing well without problems (Please see the Surgical Encounter Summary for any Implant and Specimen details pertinent to this patient.) Infection Bundle used? N/A POST-OP: Splint off in clinic Suture removal in 2 weeks. Associated attestation - Galdino Covington MD - 09/10/2016 12:45 PM EST I was the attending physician supervising the resident in the above care and I was present with theresident for the hayward component(s) of the procedure and remained immediately available throughout the remainder. documented in this encounter Plan of Treatment Upcoming Encounters Date Type Department Care Team (Late st Contact Info) Description 08/18/2024 10:30 AM EST Office [place] [address] Rodrigo Conteh MD [facility] [place] [address] documented as of this encounter Procedures Procedure Name Priority Date/Time Associated Diagnosis Comments POCT GLUCOSE Routine 08/31/2016 11:29 AM EST TISSUE GRAFT, PARATENON, FAT, DERMIS (OTHER) (WRVU 5.79) 08/31/2016 8:43 AM EST ulnar nerve injury NEUROPLASTY &/OR TRANSPOSITION, ULNAR NERVE AT ELBOW (WRVU 7.26) 08/31/2016 8:43 AM EST ulnar nerve injury POCT GLUCOSE Routine 08/31/2016 7:26 AM EST TISSUE GRAFT, PARATENON,FAT,DERMIS (OTHER) Routine 08/31/2016 6:45 AM EST documented in this encounter Results * (ABNORMAL) POCT Glucose (08/31/2016 11:29 AM EST) Glucose, POC 255(H) 65 - 199 mg/dL [facility] Comment: Supplemental ranges: <140 mg/dL before meals <180 mg/dL all other times of the day Blood specimen (specimen) 08/31/2016 11:29 AM EST 08/31/2016 11:29 AM EST Galdino Covington MD POINT OF CARE TEST O RDERABLES [facility] [place] [address] * (ABNORMAL) POCT Glucose (08/31/2016 7:26 AM EST) Glucose, POC 221(H) 65 - 199 mg/dL [facility] Comment: Supplemental ranges: <140 mg/dL before meals <180 mg/dL all other times of the day Blood specimen (specimen) 08/31/2016 7:26 AM EST 08/31/2016 7:26 AM EST Galdino Covington MD POINT OF CARE TEST O RDERABLES [facility] [place] [address] documented in this encounter Visit Diagnoses Not on filedocumented in this encounter Administered Medications Inactive Administered Medications - up to 3 most recent administrations Medication Order MAR Action Action Date Dose Rate Site fentaNYL (PF) 50 mcg/mL 2mL syringe 25 mcg, Intravenous, EVERY 5 MIN PRN, Pain, for 1-4 pain score, Starting on Sat08/31/16 at 1102, Until Sat08/31/16 at 1530, for 1-4 pain score Hold for respiratory rate less than 10 per minute. Maximum dose: 250 mcg over one hour., PACU Recovery Given 08/31/2016 3:07 PM EST 25 mcg Given 08/31/2016 2:54 PM EST 25 mcg Given 08/31/2016 2:08 PM EST 50 mcg ondansetron (ZOFRAN) injection 4 mg 4 mg, Intravenous, EVERY 30 MIN PRN, Starting on Sat08/31/16 at 1102, Until Sat08/31/16 at 1530, Nausea, May repeat 4 mg once in 30 minutes. If multiple antiemetics ordered, use ondansetron first and if ineffective use prochlorperazine second and if ineffective use promethazine, PACU Recovery Given 08/31/2016 2:05 PM EST 4 mg oxyCODONE (ROXICODONE) immediate release tablet 5 mg 5 mg, Oral, EVERY 4 HOURS PRN, Starting on Sat08/31/16 at 0714, Until Sat08/31/16 at 1732, Pain, Routine Given 08/31/2016 2:46 PM EST 5 mg promethazine (PHENERGAN) injection 6.25 mg 6.25 mg, Intravenous, EVERY 30 MIN PRN, Nausea, Starting on Sat08/31/16 at 1102, 2 doses, Until Sat08/31/16 at 1342, If multiple antiemetics ordered, use ondansetron first and if ineffective use prochlorperazine second and if ineffective use promethazine, PACU Recovery Given 08/31/2016 1:42 PM EST 3.25 mg Given 08/31/2016 1:00 PM EST 3.25 mg documented in this encounter Active and Recently Administered Medications Times are shown in EST. Scheduled Medication Order 08/29/2016 08/30/2016 08/31/2016 ceFAZolin (ANCEF) 2g in dextrose 5% 50 mL 2 g, Intravenous, ONCE, 1 dose, On Sat08/31/16 at 0730, Administer over 30 Minutes, HOLD FOR OR, Indication for (Active or Suspected): Prophylaxis 0837 (Given - Provid er: Vicki Iraheta CRNA) PRN Medication Order 08/29/2016 08/30/2016 08/31/2016 BUpivacaine-EPINEPHrine 0.25 %-1:200,000 injection (CANCELED) ONCE PRN, Starting on Sat08/31/16 at 0921, Until Sat08/31/16 at 1732, Intra-Operative (Intra-Procedure), Routine 0921 (Given - Provid er: Angel Monte MD) fentaNYL (PF) 50 mcg/mL 2mL syringe (CANCELED)(Linked Group 1) 25 mcg, Intravenous, EVERY 5 MIN PRN, Pain, for 1-4 pain score, Starting on Sat08/31/16 at 1102, Until Sat08/31/16 at 1530, for 1-4 pain score Hold for respiratory rate less than 10 per minute. Maximum dose: 250 mcg over one hour., PACU Recovery 1408 (Given - Provid er: Ariadna Cook RN)1454 (Given - Provider: Ariadna oCok RN)1507 (Given - Provider: Ariadna Cook RN) ondansetron (ZOFRAN) injection 4 mg (CANCELED) 4 mg, Intravenous, EVERY 30 MIN PRN, Starting on Sat08/31/16 at 1102, Until Sat08/31/16 at 1530, Nausea, May repeat 4 mg once in 30 minutes. If multiple antiemetics ordered, use ondansetron first and if ineffective use prochlorperazine second and if ineffective use promethazine, PACU Recovery 1405 (Given - Provid er: Ariadna Cook RN) oxyCODONE (ROXICODONE) immediate release tablet 5 mg 5 mg, Oral, EVERY 4 HOURS PRN, Starting on Sat08/31/16 at 0714, Until Sat08/31/16 at 1732, Pain, Routine 1446 (Given - Provid er: Ariadna Cook RN) promethazine (PHENERGAN) injection 6.25 mg (COMPLETED) 6.25 mg, Intravenous, EVERY 30 MIN PRN, Nausea, Starting on Sat08/31/16 at 1102, 2 doses, Until Sat08/31/16 at 1342, If multiple antiemetics ordered, use ondansetron first and if ineffective use prochlorperazine second and if ineffective use promethazine, PACU Recovery 1300 (Given - Provid er: Ariadna Cook RN)1342 (Given - Provider: Ariadna Cook RN) Linked Groups Order Group 1: fentaNYL (PF) 50 mcg/mL 2mL syringe (CANCELED)Jump to med 25 mcg, Intravenous, EVERY 5 MIN PRN, Pain, for 1-4 pain score, Starting on Sat08/31/16 at 1102, Until Sat08/31/16 at 1530, for 1-4 pain score Hold for respiratory rate less than 10 per minute. Maximum dose: 250 mcg over one hour., PACU Recovery Or fentaNYL (PF) 50 mcg/mL 2mL syringe (CANCELED) 50 mcg, Intravenous, EVERY 5 MIN PRN, Pain, for 5-10 pain score, Starting on Sat08/31/16 at 1102, Until Sat08/31/16 at 1530, for 5-10 pain score Hold for respiratory rate less than 10 per minute. Maximum dose: 250 mcg over one hour., PACU Recovery documented in this encounter Care Teams Blindstitch Machine Operator Relationship Specialty Start Date End Date Linda Galeano MD [address] [place] [address] PCP - General 07/25/10 01/14/17 documented as of this encounter
--- OUTSIDE RECORDS SUMMARY | 2024-08-14 01:25 | XMS_ITS | Encounter Summary ---
[place] [address] Care Team Providers Care Armature Coil Winder Name Role Phone Sravani Salas ANALYSIS CONSULTANT Primary Care Provider [phone] Encounter Details Date Type Department Care Team (Late st Contact Info) Description 05/03/2017 [place] [address] Melissa Addison RN Social History [...] Telephone Encounter - Melissa Addison RN - 05/03/2017 11:50 AM EDT Patients Lisa called asking if there was any contraindications between cymbalta and aspirin.Discussed with Dr. Orr, no contraindications, Patient informed. documented in this encounter Plan of Treatment Upcoming Encounters Date Type Department Care Team (Late st Contact Info) Description 08/18/2024 10:30 AM EST Office [place] [phone] Rodrigo Conteh MD [facility] [place] [address] documented as of this encounter Visit Diagnoses Not on filedocumented in this encounter Care Teams Armature Coil Winder Relationship Specialty Start Date End Date Sravani Salas APRN [address] [place] [address] PCP - General Family Medicine 01/15/17 documented as of this encounter
--- OUTSIDE RECORDS SUMMARY | 2024-08-14 01:25 | XMS_ITS | Encounter Summary ---
[place] [address] Care Team Providers Care Client Technical Support Associate Name Role Phone Linda Galeano MD Primary Care Provider [phone] Reason for Visit * Auth/Cert Specialty Diagnoses / Procedures Referred By Contac t Referred To Contact Diagnoses ulnar nerve injury Procedures PRO REVISE ULNAR NERVE AT ELBOW PRO TISSUE GRAFTS, OTHER (E.G. AUTOLOGOUS FAT GRAFT) NEUROPLASTY &/OR TRANSPOSITION, ULNAR NERVE AT ELBOW Referral ID Status Reason Start Date Expiration Date Visits Re quested Visits Authorized [id number] 1 1 Encounter Details Date Type Department Care Team (Late st Contact Info) Description 08/31/2016 8:37 AM EST Anesthesia Event [place] [address] Miky Kirkland MD [facility] [place] [address] Vicki Cortez CRNA [facility] [place] [address] Anesthesia Record Procedure Summary Procedure Name Responsible Anesthesiologist Anesthesia Start Time Anesthesia Stop Time NEUROPLASTY &/OR TRANSPOSITION, ULNAR NERVE AT ELBOW (WRVU 7.26) (Right: Elbow) Miky Kirkland MD 08/31/16 0837 08/31/16 1131 Events Date Time Event Comment 08/31/2016 0808 0837 AN Verify 0837 Start 0840 An Start Data 0853 An Induction 0854 An Intubation 0855 Anesthesia Ready 0911 An Data Art 0922 Procedure Start 0929 An Tourn Inflated 0938 Break/Relief In DARIELA Gotti [place] ES, SAP PI DEVELOPER 0959 Break/Relief Out 1039 An Tourn Deflated 1118 Extubation/LMA Out 1121 an stop data 1129 Recovery or ICU Handoff Magaly ent care was transferred to the destination unit staff after review of the patient's medical history, current anesthetic/surgical status and plan, according to the Provider Handoff Checklist. 1131 Stop 1131 Recovery or ICU Handoff Magaly ent care was transferred to the destination unit staff after review of the patient's medical history, current anesthetic/surgical status and plan, according to the Provider Handoff Checklist. Meds Name Total Propofol 200 mg fentaNYL 100 mcg Midazolam 2 mg IV Lidocaine 50 mg Ondansetron 4 mg ePHEDrine 5 mg PHENYLephrine 240 mcg ceFAZolin (ANCEF) 2g in dextrose 5% 50 m L 2 g HYDROmorphone 0.8 mg Lactated Ringers 800 mL * Agents Name O2 Air N2O Sevoflurane (et) * Blood No blood administrations on file. Lines, Drains, and Airways Type Details Placement Removal Incision 01/20/16; arm; 04/30 (LDA cleanup utility RA#[id number]); 1715 (LDA cleanup utility RA#[id number]) 01/20/16 0000 by Lizzie Jones RN 04/30/22 1715 by Criselda Sofia (RETIRED) Peripheral IV Line - Single Lumen 08/31/16; 0748; [id number] catheter system; 20 gauge; Alexys Breaux RN; distraction, intradermal injection, tolerated well, appears comfortable; 08/31/16; 1523 08/31/16 0748 by Catherine Breaux RN 08/31/16 1523 by Ariadna Cook RN Supraglottic Mask Ventilation: No t Attempted (0); LMA Type: iGel; LMA Size: 4; Inserted by: Marita; Removal Date: 08/31/16; Removal Time: 1118 08/31/16 0859 by Vicki Cortez CRNA 08/31/16 1118 by Vicki Cortez CRNA (RETIRED) Peripheral IV Line - Single Lumen 08/31/16; 0920; 12/16/17 (Auto removal via utility); 0921 (Auto removal via utility) 08/31/16 0920 by Go Guillen RN 12/16/17 0921 by Flybits, User documented in this encounter Social History Tobacco [...] OR Notes * Anesthesia Postprocedure Evaluation - Miky Kirkland MD - 08/31/2016 1:45 PM EST [facility] Department of Anesthesiology Post-procedure Note Patient: Isiah Medrano Procedure Summary Date Anesthesia Start Anesthesia Stop Room / Location 08/31/16 0837 1131 [facility] OR [facility] MAIN OR Procedure Diagnosis Surgeon Responsible Provider NEUROPLASTY &/OR TRANSPOSITION, ULNAR NERVE AT ELBOW (WRVU 7.26) (Right Elbow); TISSUE GRAFT, PARATENON, FAT, DERMIS (OTHER) (WRVU 5.79) (Right ) (ulnar nerve injury) Galdino Wood MD Chinn, Christopher D, MD All Anesthesia Providers: Anesthesiologist: Miky Kirkland MD SAP PI DEVELOPER: Vicki Iraheta CRNA Last (1hr) Vitals: BP 115/77 (08/31/16 1313) Temp Pulse Resp SpO2 92 % (08/31/16 1320) Patient Location: PACU/[facility] Level of Consciousness: Awake and Alert Pain Management: Satisfactory Analgesia PONV: None Cardiovascular Status: At Baseline and Hemodynamically Stable Respiratory Status: At Baseline and Room Air Postoperative Fluid Status: Intravascular EUvolemia Possible Anesthetic Complications: NONE apparent at time of evaluation Final Primary Anesthesia Type: General (The anesthetic type performed was the same as planned.) Comments: MIKY KIRKLAND MD * Anesthesia Preprocedure Evaluation - Miky Kirkland MD - 08/31/2016 8:23 AM EST Images from the original note were not included. Pre-Anesthesia Evaluation for: Isiah Medrano a 51 y.o. male. Procedure(s): NEUROPLASTY &/OR TRANSPOSITION, ULNAR NERVE AT ELBOW SPLINT APPLICATION, LONG ARM Patient Active Problem List Diagnosis ??? Ulnar neuropathy of right upper extremity [...] 43.5% ??? CIS - Hyperlipidemia Past Medical History Diagnosis Date ??? Diabetes mellitus Past Surgical History Procedure Laterality Date ??? Created by interface cardiac stent to RCA 01/2008 Procedure Date: January 2008 ??? Created by interface Hand operations x2 Procedure Date: Unknown ??? Pro revise ulnar nerve at elbow Right 01/20/2016 NEUROPLASTY &/OR TRANSPOSITION, ULNAR NERVE AT ELBOW performed by Galdino Wood MD at [facility] MAIN OR ??? Pro apply long arm splint Right 01/20/2016 SPLINT APPLICATION, LONG ARM performed by Galdino Wood MD at [facility] MAIN OR Social History Substance Use Topics ??? Smoking status: Never Smoker ??? Smokeless tobacco: Former User Types: Chew Quit date: 01/09/1995 ??? Alcohol use No History Drug Use No Allergies Allergen Reactions ??? Eptifibatide CIS - thrombocytopenia Medications: MAR and/or home medications have been reviewed. Physical Exam: Vitals: 08/31/16 0714 BP: 116/82 Pulse: 76 Resp: 18 Temp: 36.5 ??C (97.7 ??F) Body mass index is 31.32 kg/(m^2). Height: 170.2 cm (5' 7) Weight - Scale: 90.7 kg (200 lb) Airway Assessment: Mallampati: I TM distance: >3 FB Neck ROM: full Cardiovascular Assessment: cardiovascular exam normal Pulmonary Assessment: pulmonary exam normal Dental Assessment: Misc Assessment: IV access: Peripheral line Anesthesia Plan: ASA 3 General, with a(n) intravenous induction 51yoM with ulnar neuropathy s/p injury for nerve release/transposition. PMH includes type 2 diabetes (insulin dependent). HTN (metoprolol, SHARYN-I), gout, and hyperlipidemia. H/o NSTEMI in 2007. No need for cardiac intervention since, good exercise tolerance (brisk walking, occ tread mill) with stable angina. No GERD. Plan: general, LMA. The patient verbalized understanding of the anesthesia plan including risks and alternatives and agreed to proceed. All questions were answered. Region - Other Informed Consent: Anesthetic plan and risks discussed with patient and spouse. Plan discussed with attending and SAP PI DEVELOPER. PAT Staff Note documented in this encounter Plan of Treatment Upcoming Encounters Date Type Department Care Team (Late st Contact Info) Description 08/18/2024 10:30 AM EST Office Visit [place]ocr[place] [address] Rodrigo Conteh MD [facility] [place] [address] documented as of this encounter Visit Diagnoses Not on filedocumented in this encounter Administered Medications Inactive Administered Medications - up to 3 most recent administrations Medication Order MAR Action Action Date Dose Rate Site ceFAZolin (ANCEF) 2g in dextrose 5% 50 mL 2 g, Intravenous, ONCE, 1 dose, On Sat08/31/16 at 0730, Administer over 30 Minutes, HOLD FOR OR, Indication for (Active or Suspected): Prophylaxis Given 08/31/2016 8:37 AM EST 2 g ePHEDrine 5 mg/mL multi-dose injection Intravenous, PRN, Starting on Sat08/31/16 at 0921, Until Sat08/31/16 at 1131, Anesthesia Intra-op, Routine Given 08/31/2016 9:21 AM EST 5 mg fentaNYL 50 mcg/mL multi-dose injection Intravenous, PRN, Starting on Sat08/31/16 at 0855, Until Sat08/31/16 at 1131, Pain, Anesthesia Intra-op, Routine Given 08/31/2016 8:55 AM EST 50 mcg Given 08/31/2016 8:54 AM EST 50 mcg HYDROmorphone (DILAUDID) injection PRN, Starting on Sat08/31/16 at 0932, Until Sat08/31/16 at 1131, Pain, Anesthesia Intra-op, Routine Given 08/31/2016 9:53 AM EST 0.4 mg Given 08/31/2016 9:32 AM EST 0.4 mg lactated ringers infusion CONTINUOUS PRN, Starting on Sat08/31/16 at 0837, Until Sat08/31/16 at 1131, Anesthesia Intra-op New Bag 08/31/2016 8:37 AM EST lidocaine (PF) (XYLOCAINE) 100 mg/5 mL (2 %) injection Intravenous, PRN, Starting on Sat08/31/16 at 0853, Until Sat08/31/16 at 1131, Anesthesia Intra-op, Routine Given 08/31/2016 8:53 AM EST 50 mg midazolam (PF) (VERSED) 1 mg/mL multi-dose injection Intravenous, PRN, Starting on Sat08/31/16 at 0837, Until Sat08/31/16 at 1131, Sleep, Anesthesia Intra-op, Routine Given 08/31/2016 8:40 AM EST 1 mg Given 08/31/2016 8:37 AM EST 1 mg ondansetron (ZOFRAN) injection Intravenous, PRN, Starting on Sat08/31/16 at 1040, Until Sat08/31/16 at 1131, Nausea, Anesthesia Intra-op, Routine Given 08/31/2016 10:40 AM EST 4 mg PHENYLephrine HCl in NS (PF) (VARINDER-SYNEPHRINE) 0.8 mg/10 mL (80 mcg/mL) multi-dose injection Syrg Intravenous, PRN, Starting on Sat08/31/16 at 0917, Until Sat08/31/16 at 1131, Anesthesia Intra-op, Routine Given 08/31/2016 9:57 AM EST 80 mcg Given 08/31/2016 9:21 AM EST 80 mcg Given 08/31/2016 9:17 AM EST 80 mcg propofol (DIPRIVAN) 10 mg/mL bolus injection (Anesthesia) Intravenous, PRN, Starting on Sat08/31/16 at 0853, Until Sat08/31/16 at 1131, Anesthesia Intra-op Given 08/31/2016 8:53 AM EST 200 mg documented in this encounter Care Teams Client Technical Support Associate Relationship Specialty Start Date End Date Linda Galeano MD [address] [place] [address] PCP - General 07/25/10 01/14/17 documented as of this encounter
--- OUTSIDE RECORDS SUMMARY | 2024-08-14 01:25 | XMS_ITS | Encounter Summary ---
Author Organization [facility] [place] [address] Care Team Providers Care Section Gang Worker Name Role Phone Sravani Salas Slias CADY Primary Care Provider [phone] Encounter Details Date Type Department Care Team (Late st Contact Info) Description 08/11/2017 Telephone Non-[place] [phone] Jackson Lindsay MD [facility] [place] [address] Social History Tobacco Use Types Packs/Day Years [...] encounter Miscellaneous Notes * Telephone Encounter - Jackson Lindsay - 08/11/2017 9:46 PM EST Telephone Triage Note Initial Contact Date: 08/11/17 Initial contact time: [id number] Referring Provider: Guillermo Patient Location: [facility] Presenting Symptoms per OSH: Last night CP, started at rest, not increased with exertion GTN x 3 did not relieve pain CP has been continuous since last night Past Medical History: HLD DM [place] (PCI in 2007 to RCA) Stress test 2015 negative Pertinent Diagnostic Findings: Vitals: BP 128/79 HR 74 SaO2 RA EKG : NSR. No e/o ischemia/injury (see scanned docs) Troponin : negative x 2 CXR: no acute issues DDimer negative OSH Interventions: GI cocktail GTN x 3 Plan: The story is very atypical, in that the CP is not exertionally linked, the pain has been continuous> 24 h without EKG nor cardiac enzyme irregularities, and GTN not aiding the pain. EKG and cardiac enzymes reassuring. Unclear what is causing the pain, but performing stress test tomorrow seems reasonable. Will continue to trend enzymes and EKG. Should anything become abnormal, will contact us back. documented in this encounter Plan of Treatment Upcoming Encounters Date Type Department Care Team (Late st Contact Info) Description 08/18/2024 10:30 AM EST Office [place] [address] Rodrigo Conteh MD [facility] [place] [address] documented as of this encounter Visit Diagnoses Not on filedocumented in this encounter Care Teams Section Gang Worker Relationship Specialty Start Date End Date Sravani Salas APRN [address] [place] [address] PCP - General Family Medicine 01/15/17 documented as of this encounter
--- OUTSIDE RECORDS SUMMARY | 2024-08-14 01:25 | XMS_ITS | Encounter Summary ---
[place] [address] Care Team Providers Care Telephone Order Clerk Name Role Phone Linda Galeano MD Primary Care Provider [phone] Encounter Details Date Type Department Care Team (Late Contact Info) Description 07/17/2016 Telephone [place] [phone] Kathy Miller LPN Social History Tobacco Use [...] Telephone Encounter - Kathy Miller LPN - 07/17/2016 11:27 AM EST R/c to . Patient has lost insulin scale. is asking for insulin scale to be used for BG's. AVS from office visit 04/03/16 mailed to patient along with Designation of personal labor service representative for patient to fill out. Called patient. No answer. Message left on home v/m for patient to r/c to nurse if he would like scale read to him over the phone. documented in this encounter Plan of Treatment Upcoming Encounters Date Type Department Care Team (Late st Contact Info) Description 08/18/2024 10:30 AM EST Office [place] [address] Rodrigo Conteh MD [facility] [place] [address] documented as of this encounter Visit Diagnoses Not on filedocumented in this encounter Care Teams Telephone Order Clerk Relationship Specialty Start Date End Date Linda Galeano MD [address] [place] [address] PCP - General 07/25/10 01/14/17 documented as of this encounter
--- OUTSIDE RECORDS SUMMARY | 2024-08-14 01:25 | XMS_ITS | Encounter Summary ---
Author Organization [facility] [place] [address] Care Team Providers Care Delivery Analyst Name Role Phone Josue Sravani Silas CADY Primary Care Provider [phone] Reason for Visit * Reason Onset Date Comments Medication Refill 07/02/2017 Encounter Details Date Type Department Care Team (Late st Contact Info) Description 07/02/2017 Refill [place] [phone] Rodrigo Conteh MD [facility] [place] [address] Social History Tobacco Use Types Packs/Day Years [...] Telephone Encounter - Kathy Miller LPN - 07/02/2017 9:00 AM EDT Call from [facility] pharmacy. U500 not available at this time in pens. Per pharmacist patient is okay with vials and syringes. documented in this encounter Plan of Treatment Upcoming Encounters Date Type Department Care Team (Late st Contact Info) Description 08/18/2024 10:30 AM EST Office [place] [address] Rodrigo Conteh MD [facility] [place] [address] documented as of this encounter Visit Diagnoses Not on filedocumented in this encounter Care Teams Delivery Analyst Relationship Specialty Start Date End Date Sravani Salas APRN [address] [place] [address] PCP - General Family Medicine 01/15/17 documented as of this encounter
--- OUTSIDE RECORDS SUMMARY | 2024-08-14 01:25 | XMS_ITS | Encounter Summary ---
Author Organization [facility] Address [facility] [place] [address] Care Team Providers Care Hair Baler Name Role Phone Sravani Salas APRN Primary Care Provider [phone] Reason for Visit * Reason Comments Pain Management * Consultation (Routine) - Closed Specialty Diagnoses / Procedures Referred By Contac t Referred To Contact Pain Management Diagnoses Follow up Galdino Wood MD [facility] [place] [address] [facility] [address] [place] [id number] Referral ID Status Reason Start Date Expiration Date V isits Requested Visits Authorized [id number] Closed Consult, Test & Treat 03/11/2017 03/11/2018 1 1 Encounter Details Date Type Department Care Team (Late st Contact Info) Description 04/23/2017 8:30 AM EDT Office Visit Pain Management at [place] [phone] Michel Orr MD [facility] [place] [address] Ulnar neuropathy of right upper extremity; Complex regional pain syndrome type 2 of right upper extremity Social History Tobacco [...] Sign Reading Time Taken Comments Blood Pressure 130/78 04/23/2017 8:53 AM EDT Pulse 72 04/23/2017 8:53 AM EDT Temperature - - Respiratory Rate - - Oxygen Saturation 97% 04/23/2017 8:53 AM EDT Inhaled Oxygen Concentration - - Weight 90.3 kg (199 lb) 04/23/2017 8:53 AM EDT Height 170.2 cm (5' 7) 04/23/2017 8:53 AM EDT Body Mass Index 31.17 04/23/2017 8:53 AM EDT documented in this encounter Progress Notes * Michel Orr MD - 04/23/2017 8:30 AM EDT Subjective: Patient ID: I have been requested by Dr. Wood for my recommendation regarding the patient's . Thisis Isiah Medrano's follow up evaluation by our clinic. This is an established patient for our clinic having last been seen by Sandra Hatch APRN on 02/07/17. History of Present Illness He complains of pain in the distribution of his right ulnar nerve. He is undergone several ulnar nerve surgeries which have not resulted in improvement. He originally injured his elbow striking it against the door frame of a truck on January 10, 2015.. He has been maintained on opiates for the last 8 months. He rates the relief that he is currently receiving from opiates as suboptimal . He currently uses oxycodone 5 mg every 6 hours as needed for breakthrough pain, and OxyContin 15 mg every 12 hours. He has not trialed interventional procedures. He is using compounding pharmacy cream apply topically 2 his left forearm which he feels provides him with some benefit. He has trialed gelf-gig-updmeou medications i.e. nonsteroidal anti- inflammatories, and Tylenol with suboptimal relief. He does not desire trialing therapeutic cannabis. He currently take gabapentin 3600 QD. He takes Prozac for mood.As he currently is receiving an SSRI he has not trialed any SNRI'si.e. Cymbalta. He has not trialedany interventional procedures. Previous treatments include: 1) Injections: None 2) Surgeries: Yes, he has undergone 3 surgeries including ulnar nerve transposition surgery 08/31/16, 01/20/16, with the first in April 2015. 3) Medications: Gabapentin and oxycodone, OxyConitn. He is not a candidate for TCA's as per his primary care physician. 4)Physical therapy: Many sessions since initial injury at [facility] Therapy twice per week that is currently ongoing and home exercises. 5) Psychological interventions: None PAST MEDICAL HISTORY: Past Medical History: Diagnosis Date ??? Diabetes mellitus PAST SURGICAL HISTORY: Past [...] at [facility] MAIN OR ALLERGIES: Eptifibatide and Amoxicillin MEDICATIONS: Medications 04/23/17 0858 Medication Sig Taking? insulin aspart (NOVOLOG) Insulin Pen Inject 1-10 Units subcutaneously 4 times daily as needed for High Blood Sugar. Yes pen needle, diabetic (NOVOFINE PLUS) 32 gauge x 1/6 Needle 1 each by [facility]Non- Drug; Combo Route) route 4 times daily as needed. Yes OXYCONTIN 15 mg tablet,oral only,ext.rel.12 hr Take 15 mg by mouth 2 times daily. Yes lidocaine (XYLOCAINE) 5 % Ointment Apply topically 2 times daily. Reported on 03/26/2017 Yes traZODone (DESYREL) 50 mg Tablet Take [...] every 4 hours as needed for Pain. Yes sildenafil (VIAGRA) 50 mg Tablet Take 1 tablet by mouth as needed for Erectile Dysfunction. Yes gabapentin (NEURONTIN) 300 mg Capsule Take 3,600 mg by mouth every 3 hours. Yes [...] times daily. Use as instructed Yes Insulin Tunas, Disposable, (BD INSULIN PEN NEEDLE UF MINI) [...] route 2 times daily (before meals). Yes FAMILY HISTORY: Family History Problem Relation Age [...] ??? Not on file Social History Narrative ROS: Review of Systems Constitutional: Positive for activity change. Negative for appetite change. Activity change consists of decreasing use of his right hand HENT: Negative for congestion, trouble swallowing and voice change. Eyes: Negative for discharge and itching. Respiratory: Negative for apnea and chest tightness. Cardiovascular: Negative for chest pain and leg swelling. Gastrointestinal: Negative for abdominal distention and abdominal pain. Endocrine: Negative for cold intolerance and heat intolerance. Genitourinary: Negative for flank pain and frequency. Musculoskeletal: Negative for back pain and gait problem. Pain located in the right elbow and forearm and medial aspect of right hand Skin: Negative for color change and pallor. Allergic/Immunologic: Negative for environmental allergies and food allergies. Neurological: Negative for light-headedness and headaches. Hematological: Negative for adenopathy. Does not bruise/bleed easily. Psychiatric/Behavioral: Negative for agitation and behavioral problems. Objective: PHYSICAL EXAM: BP 130/78 Pulse 72 Ht 170.2 cm (5' 7) Wt 90.3 kg (199 lb) SpO2 97% BMI 31.17 kg/m2 Physical Exam Constitutional: He is oriented to person, place, and time. He appears well- developed and well-nourished. HENT: Head: Normocephalic and atraumatic. Eyes: Conjunctivae and EOM are normal. Pupils are equal, round, and reactive to light. Right eye exhibits no discharge. Left eye exhibits no discharge. No scleral icterus. Neck: No tracheal deviation present. No thyromegaly present. Cardiovascular: Normal rate and regular rhythm. Pulmonary/Chest: Effort normal and breath sounds normal. No respiratory distress. Abdominal: Soft. Bowel sounds are normal. He exhibits no distension. Musculoskeletal: Trace edema present in the right hand. Right hand is tender to palpation. Hyperalgesia of the medial hand and forearm present on palpation. Lymphadenopathy: He has no cervical adenopathy. Neurological: He is alert and oriented to person, place, and time. He has normal reflexes. Decreased sensation to light touch medial hand and for hand. Skin: Skin is warm and dry. Psychiatric: He has a normal mood and affect. His behavior is normal. Judgment and thought content normal. Assessment and Plan: ASSESSMENT Assessment 1. Ulnar neuropathy of right upper extremity 2. Complex regional pain syndrome type 2 of right upper extremity TREATMENT PLAN Mr. Medrano is a 52 y.o. 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 After a thorough review of the history and physical examination, Mr. Medrano and I discussed the following treatment plan in detail: Recommend right stellate ganglion sympathetic nerve block performed under fluoroscopic guidance I have discussed spinal cord stimulation (SCS) trial for Mr. Medrano with a diagnosis of ulnar neuropathy resulting in what is likely the early stages of CRPS type 2. I recommend he continue with his gabapentin and his compounding pharmacy cream. Additionally, I will prescribe for him low-dose naltrexone therapy. Instructions for commencing low dose naltrexone therapy are the following and have been included in his written and printed after visit summary: Take one capsule QD for 7 days. If pain relief is unsatisfactory then increase to 2 capsules per day. After 14 days if pain relief is inadequate then increase to 3 capsules per day. After 21 days if pain relief is inadequate then increase to 4 capsules per day I discussed with him at length the mechanism of action of spinal cord stimulator neuromodulation. Idiscussed with him the need for spinal cord stimulator trial prior to implantation so that he may assess whether this intervention would be appropriate for him in terms of providing him with pain relief. I have provided him with literature regarding spinal cord stimulator neuromodulation. He will review this literature on his own and further consider neuromodulation as a potential intervention shouldmore conservative measures including ongoing physical therapy, and interventional procedures and pha rmacotherapy prove some optimal in controlling his pain. Functional goals with the current and future treatment: 1) To be able to carry groceries without pain 2) To be able to maintain activity and fictional level while limiting pain inhibition of function 3) To be able to maintain independence of activities of daily living 4) To be able to explore conservative modalities to treat his chronic pain syndrome prior to surgical evaluation. Follow up: For right stellate ganglion significant nerve block performed under fluoroscopic guidance Mr. Medrano and I reviewed all of the above recommendations using anatomical models. The patient understands the risks, benefits, and indications of these options. The patient will think about his options. Isiah may also discuss these recommendations with Sravani Salas APRN so that he can come to the best decision in terms of his treatment options. More than 35 minutes was spent in direct face time with Mr. Isiah Medrano today. More than 20 minutes of that time spent in counseling and coordination of care regarding his diagnosis and on the treatment plan as detailed above. Michel Orr MD [facility] Board Certified Medical Center Representative documented in this encounter Plan of Treatment Upcoming Encounters Date Type Department Care Team (Late st Contact Info) Description 08/18/2024 10:30 AM EST Office [place] [address] Rodrigo Conteh MD [facility] [place] [address] Scheduled Referrals Name Type Priority Associated Diagnoses Orde r Schedule Referral to Pain Clinic Outpatient Referral Routine Follow up Ordered: 03/11/2017 documented as of this encounter Visit Diagnoses Diagnosis Ulnar neuropathy of right upper extremity Lesion of ulnar nerve Complex regional pain syndrome type 2 of right upper extremity Type 2 diabetes mellitus with hyperglycemia, with long-term current use of insulin Vitamin D insufficiency Unspecified vitamin D deficiency Dyslipidemia Other and unspecified hyperlipidemia documented in this encounter Care Teams Hair Baler Relationship Specialty Start Date End Date Sravani Salas, POWERHOUSE ELECTRICIAN [address] [place] [address] PCP - General Family Medicine 01/15/17 documented as of this encounter
--- OUTSIDE RECORDS SUMMARY | 2024-08-14 01:25 | XMS_ITS | Encounter Summary ---
[place] [address] Care Team Providers Care Dry Heat Room Attendant Name Role Phone Sravani Salas APRN Primary Care Provider [phone] Encounter Details Date Type Department Care Team (Late st Contact Info) Description 07/03/2017 Telephone [place] [phone] Kathy Miller LPN Social History Tobacco Use [...] Encounter - Kathy Miller LPN - 07/03/2017 1:51 PM EDT Images from the original note were not included. Isiah Medrano?? Male, 52 y.o., 1965 Weight: 92.4 kg (203 lb 12.8 oz) Home: PCP: Sravani Salas APRN myD-H: Pending Next Appt: 09/27/2017 ?? Message Received: Today ? Rodrigo Conteh MD Isham, Gail, LPN ? Caller: Unspecified (Today, 10:43 AM) ? Yes, approve. Thanks. RODRIGO CONTEH MD ? Previous Messages * Telephone Encounter - Kathy Miller LPN - 07/03/2017 12:20 PM EDT Call from Rx for U500 pens needs to be rewritten for at least a 30 day supply for coupon to beused. will have patient call with any questions once he has U500 insulin. * Telephone Encounter - Kathy Miller LPN - 07/03/2017 10:43 AM EDT Call from asking that Rx for U500 be sent to [facility] in [place]. states due to cost she has called several pharmacy one of which told her that the special syringes for U500 are $50+ for 100 syringes. Rx to [facility] was for U500 insulin with instructions on drawing up using U100 syringes and and Rx for U100 syringes. Called [facility] pharmacy spoke Eduar who verifies patient will be getting Rx was written U500 insulin with U100 syringes. R/c to who was advised of the above and also states she has [facility] can get U500 pens. asking for Rx for pens to go to [facility] in [place]. Rx forward to Dr Conteh to approve. documented in this encounter Plan of Treatment Upcoming Encounters Date Type Department Care Team (Late st Contact Info) Description 08/18/2024 10:30 AM EST Office [place] [address] Rodrigo Conteh MD [facility] [place] [address] documented as of this encounter Visit Diagnoses Not on filedocumented in this encounter Care Teams Dry Heat Room Attendant Relationship Specialty Start Date End Date Sravani Salas APRN [address] [place] [address] PCP - General Family Medicine 01/15/17 documented as of this encounter
--- OUTSIDE RECORDS SUMMARY | 2024-08-14 01:25 | XMS_ITS | Encounter Summary ---
Author Organization [facility] [place] [address] Care Team Providers Care Station Cleaning Porter Name Role Phone Linda Galeano MD Primary Care Provider [phone] Reason for Visit * Reason Onset Date Comments Medication Refill 03/07/2016 Encounter Details Date Type Department Care Team (Late Contact Info) Description 03/07/2016 Refill [place] [phone] [facility] [place] [address] Social History Tobacco Use Types Packs/Day Years [...] 10:30 AM EST Office Visit [place] [phone] [facility] [place] [address] documented as of this encounter Visit Diagnoses Not on filedocumented in this encounter Care Teams Station Cleaning Porter Relationship Specialty Start Date End Date Linda Galeano MD [address] [place] [address] PCP - General 07/25/10 01/14/17 documented as of this encounter
--- OUTSIDE RECORDS SUMMARY | 2024-08-14 01:25 | XMS_ITS | Encounter Summary ---
[place] [address] Care Team Providers Care Risk Compliance Analyst Name Role Phone Linda Galeano MD Primary Care Provider [phone] Encounter Details Date Type Department Care Team (Late st Contact Info) Description 04/16/2016 Telephone [place] [phone] Kathy Miller LPN Social History Tobacco Use [...] Telephone Encounter - Rodrigo Conteh MD - 04/16/2016 12:55 PM EDT Ok to use cialis 10 mg q3days for ED if he is not using Imdur or NTG then. To verify before sendingthe script out. RODRIGO CONTEH MD * Telephone Encounter - Kathy Miller LPN - 04/16/2016 11:19 AM EDT R/c to Imdur was stopped today by bath mixer. Patient will be seen on 05/02/16 by cardiologyto evaluate how he is doing without Imdur. Also states that BP medication has been decreased and was told that patient may not need need medication for ED. Patient did not ask bath mixer for this Rx because he is not being seen until 05/02/16. is asking for Rx for either Viagra or Cialis to go to [facility] in [place]. Forward to Dr Conteh documented in this encounter Plan of Treatment Upcoming Encounters Date Type Department Care Team (Late st Contact Info) Description 08/18/2024 10:30 AM EST Office Visit [place] [address] Rodrigo Conteh MD [facility] [place] [address] documented as of this encounter Visit Diagnoses Not on filedocumented in this encounter Care Teams Risk Compliance Analyst Relationship Specialty Start Date End Date Linda Galeano MD [address] [place] [address] PCP - General 07/25/10 01/14/17 documented as of this encounter
--- OUTSIDE RECORDS SUMMARY | 2024-08-14 01:25 | XMS_ITS | Encounter Summary ---
[place] [address] Care Team Providers Care Collar Starcher Name Role Phone Sravani Salas APRN Primary Care Provider [phone] Reason for Visit * Reason Onset Date Comments Medical Care Coordination 04/03/2017 Encounter Details Date Type Department Care Team (Late st Contact Info) Description 04/03/2017 Telephone [place] [address] Ramona Pike, RN Medical Care Coordination Social History Tobacco Use Types Packs/Day Years [...] encounter Miscellaneous Notes * Telephone Encounter - Ramona Pike RN - 04/03/2017 9:16 AM EDT called stating unable to understands message left on answering machine giving insulin directions and clarification. Reviewed record. Noted instructions per Provider in previous encounter. Call placed to . Message read to from previous encounter If he is taking Lanuts 40U in PM, Novolog by scale ,Metformin 1000 mg twice daily, glimepiride 4 mg twice daily, then it should be a short-acting Novolog pen for sliding scale for correction of high BG>150 TID & hs p.r.n. (not 70/30 mix) RODRIGO CONTEH MD ?? She verbalizes understanding. Request One month prescription for Insulin pen be sent to [facility] and 3 month to their mail away. Also requests instructions be emailed to [email or web address]. instructions copied and pasted into e-mail to patient and spouse. documented in this encounter Plan of Treatment Upcoming Encounters Date Type Department Care Team (Late st Contact Info) Description 08/18/2024 10:30 AM EST Office Visit [place] [address] Rodrigo Conteh MD [facility] [place] [address] documented as of this encounter Visit Diagnoses Not on filedocumented in this encounter Care Teams Collar Starcher Relationship Specialty Start Date End Date Sravani Salas, INVESTOR RELATIONS SPECIALIST [address] [place] [address] PCP - General Family Medicine 01/15/17 documented as of this encounter
--- OUTSIDE RECORDS SUMMARY | 2024-08-14 01:25 | XMS_ITS | Encounter Summary ---
[place] [address] Care Team Providers Care Trimming Cutter Name Role Phone Sravani Salas APRN Primary Care Provider [phone] Encounter Details Date Type Department Care Team (Late st Contact Info) Description 06/04/2017 Telephone [place] [phone] Luci Allen LNA Social History Tobacco Use Types Packs/Day [...] encounter Miscellaneous Notes * Telephone Encounter - Luci Allen LNA - 06/04/2017 11:54 AM EDT Isiah Medrano :1965 Message left: I left a message on answering machine Mr. Medrano at 11:54 AM regarding his upcoming Right stellate ganglion block with Dr. Michel Orr MD. Message included the followin. Patient instructed to arrive at 2:45 (30 minutes prior to procedure start time) on 06/05/17 (dateof procedure) with their bobcat driver/labor. 2. Following instructions left in the message: [...] your body within the last two weeks? 3. If patient NPO: No food after 9:15 (6 hours prior to procedure start time); clear fluids only upuntil 1:15 (2 hours prior to procedure start time) documented in this encounter Plan of Treatment Upcoming Encounters Date Type Department Care Team (Late st Contact Info) Description 08/18/2024 10:30 AM EST Office [place] [address] Rodrigo Conteh MD [facility] [place] [address] documented as of this encounter Visit Diagnoses Not on filedocumented in this encounter Care Teams Trimming Cutter Relationship Specialty Start Date End Date Sravani Salas APRN [address] [place] [address] PCP - General Family Medicine 01/15/17 documented as of this encounter
--- OUTSIDE RECORDS SUMMARY | 2024-08-14 01:25 | XMS_ITS | Encounter Summary ---
Author Organization [facility] Address [facility] [place] [address] Care Team Providers Care Clerk Television Production Name Role Phone Linda Galeano MD Primary Care Provider [phone] Reason for Visit * Auth/Cert Specialty Diagnoses / Procedures Referred By Contac t Referred To Contact Diagnoses ulnar nerve injury Procedures PRO REVISE ULNAR NERVE AT ELBOW PRO TISSUE GRAFTS, OTHER (E.G. AUTOLOGOUS FAT GRAFT) NEUROPLASTY &/OR TRANSPOSITION, ULNAR NERVE AT ELBOW Referral ID Status Reason Start Date Expiration Date Visits Re quested Visits Authorized [id number] 1 1 Encounter Details Date Type Department Care Team (Late st Contact Info) Description 08/31/2016 8:30 AM EST - 08/31/2016 10:58 AM EST Surgery [place] [address] Galdino Covington MD [facility] [place] [address] NEUROPLASTY &/OR TRANSPOSITION, ULNAR NERVE AT ELBOW (WRVU 7.26) Social History Tobacco Use Types Packs/Day Years [...] Sign Reading Time Taken Comments Blood Pressure 116/82 08/31/2016 7:14 AM EST Pulse 76 08/31/2016 7:14 AM EST Temperature 36.5 ??C (97.7 ??F) 08/31/2016 7:14 AM ES T Respiratory Rate 18 08/31/2016 7:14 AM EST Oxygen Saturation 95% 08/31/2016 7:14 AM EST Inhaled Oxygen Concentration - - [...] 10:20 AM Amalia Ribeiro APRN Plastic Surgery [phone] Suture removal in 2 weeks. MEDICATIONS: Your [...] INSULIN SYRINGE ULT-FINE II 1 each by Misc.(Non-Drug; Combo Route) route [...] called in to our prescription line at [phone]. Narcotic renewals may be requested from 8am-4pm [...] Saturday 8 am to 5 pm Call [phone] On weekends or after hours: Call [phone] and ask the hoop machine operator to page the Plastic Surgery Resident air pollution inspector. documented in this encounter Medications at Time [...] 31 x 5/16 Syrg 1 each by [facility].(Non-Drug; Combo Route) route 2 times daily (before [...] mg by mouth daily. 05/23/2015 09/08/2019 Insulin [place], Disposable, (BD INSULIN PEN NEEDLE UF MINI) [...] Note ?? Patient Name: Isiah Medrano : [id number] MR#: [id number] ?? Case Date: 08/31/2016 ?? Surgeon: Surgeon(s) and Role: * Galdino Covington MD - Primary * Angel Monte MD - Resident-Surgeon Adeel ?? Preoperative diagnosis: right ulnar nerve injury ?? Postoperative diagnosis: right ulnar nerve injury ?? Procedure(s): NEUROPLASTY &/OR TRANSPOSITION, ULNAR NERVE AT ELBOW (WRVU 7.26) TISSUE GRAFT, PARATENON, FAT, DERMIS (OTHER) (WRVU 5.79) ? Anesthesia: General ?? Findings: Right [...] confirmed that we released the arcade of [place] proximally as well. The ulnar nerve was [...] Operative Note Patient Name: Isiah Medrano : [id number] MR#: [id number] Case Date: 08/31/2016 Surgeon: Surgeon(s) and Role: [...] 10:30 AM EST Office [place] [address] Rodrigo Conteh MD [facility] [place] [address] documented as of this encounter Procedures Procedure [...] Glucose, POC 255(H) 65 - 199 mg/dL [facility] Comment: Supplemental ranges: <140 mg/dL before meals <180 mg/dL all other times of the day Blood specimen (specimen) 08/31/2016 11:29 AM EST 08/31/2016 11:29 AM EST Galdino Covington MD POINT OF CARE TEST O RDERABLES Performing Organization Address City/[facility]/ZIP Co de Phone Number [facility] [place] [address] * (ABNORMAL) POCT Glucose (08/31/2016 7:26 AM EST) Glucose, POC 221(H) 65 - 199 mg/dL [facility] Comment: Supplemental ranges: <140 mg/dL before meals <180 mg/dL all other times of the day Blood specimen (specimen) 08/31/2016 7:26 AM EST 08/31/2016 7:26 AM EST Galdino Covington MD POINT OF CARE TEST O LIBORIO Performing Organization Address [facility] Co de Phone Number [facility] [place] [address] documented in this encounter Visit Diagnoses Not on filedocumented in this encounter Administered Medications Inactive Administered Medications - up to 3 most recent administrations Medication Order MAR Action Action Date Dose Rate Site BUpivacaine-EPINEPHrine 0.25 %-1:200,000 injection ONCE PRN, Starting on Sat08/31/16 at 0921, Until Sat08/31/16 at 1732, Intra-Operative (Intra-Procedure), Routine Given 08/31/2016 9:21 AM EST 55 mLs 19- Surgical Site fentaNYL (PF) 50 mcg/mL 2mL syringe [...] Ariadna Cook RN)1454 (Given - Provider: Ariadna Cook RN)1507 (Given - Provider: Ariadna Cook RN) [...] Recovery documented in this encounter Care Teams Clerk Television Production Relationship Specialty Start Date End Date Linda Galeano MD [address] [place] [address] PCP - General 07/25/10 01/14/17 documented as of this encounter
--- OUTSIDE RECORDS SUMMARY | 2024-08-14 01:25 | XMS_ITS | Encounter Summary ---
[place] [address] Care Team Providers Care Social Insurance Specialist Name Role Phone JosueEleuteriogm Rosen CADY Primary Care Provider [phone] Encounter Details Date Type Department Care Team (Late st Contact Info) Description 08/06/2017 Telephone [place] [phone] Melissa Addison RN Social History Tobacco Use [...] Encounter - Melissa Addison RN - 08/06/2017 10:16 AM EST Ketan Aguirre Comp Brand Engineer called stating she is willing to approve the naltrexone capsules and renew the compounding pain cream but she could not find evidence of the order for the naltrexone and the evidence that the compounding cream was working. Advised Carla that the information she is seeking is in the office note of 04/23. Carla did not have this note, note was faxed to her. . Carla states she will approve coverage for both medications. documented in this encounter Plan of Treatment Upcoming Encounters Date Type Department Care Team (Late st Contact Info) Description 08/18/2024 10:30 AM EST Office Visit [place] [address] Rodrigo Conteh MD [facility] [place] [address] documented as of this encounter Visit Diagnoses Not on filedocumented in this encounter Care Teams Social Insurance Specialist Relationship Specialty Start Date End Date Sravani Salas, CADY [address] [place] [address] PCP - General Family Medicine 01/15/17 documented as of this encounter
--- OUTSIDE RECORDS SUMMARY | 2024-08-14 01:25 | XMS_ITS | Encounter Summary ---
Author Organization [facility] [place] [address] Care Team Providers Care Application Technician Name Role Phone Linda Galeano MD Primary Care Provider [phone] Reason for Referral * Physical Therapy (Routine) - Closed Specialty Diagnoses / Procedures Referred By Nii hoffman Referred To Contact Diagnoses Ulnar neuropathy of right upper extremity Amalia Ribeiro APRN [facility] [place] [address] Unknown None Referral ID Status Reason Start Date Expiration Date V isits Requested Visits Authorized [id number] Closed Evaluate and Treat 09/13/2016 03/12/2017 12 12 Reason for Visit * Reason Comments Follow Up Surgery right ulnar neuropat hy Encounter Details Date Type Department Care Team (Late st Contact Info) Description 09/13/2016 8:00 AM EST Office [place] [address] Amalia Ribeiro DIRECTOR INSTRUCTIONAL MATERIAL [facility] [place] [address] Ulnar neuropathy of right upper extremity Social [...] this encounter Patient Instructions * Patient Instructions* Amalia Ribeiro APRN - 09/13/2016 8:00 AM EST 1. Follow up: [address] Wood 2. Resume physical therapy 3. Discuss pain management with PCP next week. documented in this encounter Progress Notes * Amalia Ribeiro APRN - 09/13/2016 8:00 AM EST Plastic Surgery Post Op Note Reason for visit: F/U status post procedure Date of surgery: 08/31/16 Procedure(s): Right Ulnar Nerve Neurolysis and fat grafting Complications: None reported Pain: 10 /10 HPI: Pt reports that he has increased pain in his hand and his fingers. He reports that his arm andfingers feel worse since surgery. He states that he wants his arm to be cut off to be done with thepain. He reports that he has been taking Tylenol, Ibuprofen,Gabapentin and Oxycodone. He is almost out of Oxycodone and states that he will need something when this is complete. He worked for the [employer]. He is here with his for today's visit. Since the initial injury which was Mayof 2014 he has not been working. He states that he has been taking 3-4 pills of oxycodone a day Examination: Patient states pain of 10/10 however he does appear comfortable. Able to hold eye contact and have a meaningful conversation. Patient is alert, conversant, comfortable, ambulating Incision: CDI, healing well. Sutures removed today. No collection, no erythema, no evidence of cellulitis. Impression: Isiah Medrano is a 51 y.o. male who was seen today for follow-up after the above procedure. Please see the operative note for details. He is focused on his pain. We talked about his increased burning and numbness pain. We reviewed his medications that he is currently taking which is Gabapentin. His instructions for use are to take up to 3600 mg per day. He is not taking the maximum amount. He will increase this. He reports that he will be out of his oxycodone. I expressed my concernabout being on residential narcotics versus short term. Seeing a physical therapist would be beneficial for patient. We talked about him finding a new baseline for sensation in his hand. He has an appoi ntment with his PCP one week from today. I have given him #25 Oxycodone to get him through to this appointment. I have encourage him to review his terminal manager pain treatment with his PCP at his appointment next week. I do not anticipate he will receive any more narcotics from Plastic Surgery. Plan: 1. Follow up: [address] Wood 2. Resume physical therapy 3. Discuss pain management with PCP next week. I, Alicia Urrutia, am acting as scribe for Amalia Ribeiro APRN. All work documented was performed byAmalia Ribeiro APRN ???I performed the above scribed service and agree with the accuracy of the note?? ALICIA URRUTIA documented in this encounter Plan of Treatment Upcoming Encounters Date Type Department Care Team (Late st Contact Info) Description 08/18/2024 10:30 AM EST Office [place] [address] [facility] [place] [address] Scheduled Referrals Name Type Priority Associated Diagnoses Orde r Schedule Referral to Physical Therapy Outpatient Referral Routine Ulnar neuropathy of right upper extremity Ordered: 09/13/2016 documented as of this encounter Visit Diagnoses Diagnosis Ulnar neuropathy of right upper extremity Lesion of ulnar nerve Type 2 diabetes mellitus with hyperglycemia, with long-term current use of insulin Vitamin D insufficiency Unspecified vitamin D deficiency Dyslipidemia Other and unspecified hyperlipidemia documented in this encounter Care Teams Application Technician Relationship Specialty Start Date End Date Linda Galeano MD [address] [place] [address] PCP - General 07/25/10 01/14/17 documented as of this encounter
--- OUTSIDE RECORDS SUMMARY | 2024-08-14 01:25 | XMS_ITS | Encounter Summary ---
Author Organization [facility] [place] [address] Care Team Providers Care [employer] Consultant Name Role Phone Josue Sravani Silas CADY Primary Care Provider [phone] Reason for Visit * Reason Onset Date Comments Medication Refill 04/08/2017 Encounter Details Date Type Department Care Team (Late st Contact Info) Description 04/08/2017 Refill [place] [phone] Rodrigo Conteh MD [facility] [place] [address] Type 2 diabetes mellitus without complication, unspecified penitentiary insulin use status Social History Tobacco Use [...] 10:30 AM EST Office Visit [place] [phone] Rodrigo Conteh MD [facility] [place] [address] documented as of this encounter Visit Diagnoses Diagnosis Type 2 diabetes mellitus without complication, unspecified intermediate frame tender insulin use status Type 2 diabetes mellitus with hyperglycemia, with long-term current use of insulin Vitamin D insufficiency Unspecified vitamin D deficiency Dyslipidemia Other and unspecified hyperlipidemia documented in this encounter Care Teams [employer] Consultant Relationship Specialty Start Date End Date Sravani Salas APRN [address] [place] [address] PCP - General Family Medicine 01/15/17 documented as of this encounter
--- OUTSIDE RECORDS SUMMARY | 2024-08-14 01:25 | XMS_ITS | Encounter Summary ---
Author Organization [facility] [place] [address] Care Team Providers Care Camp Tender Name Role Phone Linda Galeano MD Primary Care Provider [phone] Reason for Visit * Reason Comments Diabetes Encounter Details Date Type Department Care Team (Late st Contact Info) Description 04/03/2016 11:30 AM EDT Office [place] [address] Rodrigo Conteh MD [facility] [place] [address] Diabetes mellitus type 2, uncontrolled Social History Tobacco Use Types Packs/Day Years [...] Sign Reading Time Taken Comments Blood Pressure 128/90 04/03/2016 11:25 AM EDT Pulse 82 04/03/2016 11:25 AM EDT Temperature - - Respiratory Rate - - Oxygen Saturation - - Inhaled Oxygen Concentration - - Weight 90.6 kg (199 lb 12.8 oz) 016 11:25 AM EDT Height 172.7 cm (5' 8) 04/03/2016 11:2 5 AM EDT stated Body Mass Index 30.38 04/03/2016 11:25 AM EDT documented in this encounter Patient Instructions * Patient Instructions* Rodrigo Conteh MD - 04/03/2016 11:30 AM EDT Recent Results (from the past 24 hour(s)) Hemoglobin A1c Result Value Ref Range Hemoglobin A1C 9.2 (H) 4.3 - 5.6 % Est Avg Gluc 217 mg/dL TSH Result Value Ref Range TSH 1.37 0.27 - 4.20 mcIU/mL Plan: 1. Medication: Adjustment of diabetes treatment regimen: To cont victoza pen 1.8 mg sc daily per insurance policy and cost To cont glimiperide 4 mg bid and metformin 1000 mg bid To check FSBG more often tid ac & hs and give Humalog kwickpen sliding scale p.r.n if BG>180based on 1u:20BG ratio (180 3u, 200 5u, 250 8u, 300 10u, 350 13u, 400 15u, etc) To continue all other medications and start taking OTC-B12 1,000 mcg po qd as well for neuropathy but better DM control is critical for him. To contact radio broadcaster if he still needs Imdur or not [...] visit. 4. Lab: Already checked lab as above 5. RTC: Next visit in 3 months to keep A1c <9% soon. Will check both HbA1c and may recheck B12 for his painful neuropathy at the time (Quick draw lab before visit with us on the same day). documented in this encounter Progress Notes * Rodrigo Conteh MD - 04/03/2016 11:30 AM EDT Endocrine Clinic Name: Isiah Medrano : 1965 Date: 04/03/2016 PCP: LINDA GALEANO MD Provided by: Rodrigo Conteh MD Reason for visit: Follow-up diabetes type 2 Diabetes treatment regimen: Metformin 1000 mg bid and glimiperide 4 mg bid Victoza 1.6 mg sc daily and occasional use of insulin sliding scale qid p.r.n for high BG>180 FSBG: only checking p.r.n and not a fan of FSBG testing Most recent HA1c: 9.2% today (was 11.5% on 09/15/15, 12.4% 06/10/15 , 14.6% [...] same as last visit recently. He is doing better and entirely asymptomatic without polyuria/polydipsia with high A1c 9.5-14.6% range but trending down gradually back to 9.2% today. FGBG was better in 100s-200s mg/dl range. He admitted that he simply does not like to check FSBG but tried his best to do it to be able to use sliding scale insulin p.r.n. He knows that good DM control is critical for nerve healing and it will also prevent further progression of neuropathy. He recovered well from recent redo surgery of his ulnar nerve in . He is using victoza daily instead ofTrulicity weekly due to the cost with his health insurance without GI side effects (He used to have much better BG in 100s range most of the time and was able to switch back from high dose insulin to victoza). He found [facility] insurance which runs by the federal to be very helpful in getting more affordable meds for him (already has very good health insurancebut other pharmacy charged him very high jenkins compared to his federal pharmacy). Denies any changes in vision, no CP, SOB, GI issues, leg swelling or foot ulcer but still having significant ED and asking for cialis or viagra, although he is still on Imdur so he needs to discuss with his radio broadcaster if he can switch to any other class of med which will have no contraindication to use cilias or viagra. ROS: Please see HPI, all others negative [...] to Visit Medication Sig Dispense Refill ??? liraglutide (VICTOZA) 0.6 mg/0.1 mL (18 mg/3 mL) Pen Injector Inject 1.8 mg subcutaneously daily. 27 Syringe 3 ??? oxyCODONE (ROXICODONE) 5 mg Tablet Take 1 tablet by mouth every 4 hours as needed for Pain. 10 tablet 0 ??? multivitamin (THERAGRAN) Tablet Take 1 tablet by mouth daily. ??? insulin needles, disposable, 31 gauge x 5/16 Needle ??? atorvastatin (LIPITOR) 40 mg Tablet 20 mg daily. ??? gabapentin (NEURONTIN) 300 mg Capsule Take 1,800 mg by mouth daily. ??? isosorbide mononitrate (IMDUR) 30 mg Tablet Sustained Release 24 hr Take by mouth daily. ??? meTOPROLOL succinate (TOPROL-XL) 25 mg Tablet Sustained Release 24 hr daily. ??? insulin aspart (NOVOLOG) Insulin Pen Inject 2-20 Units subcutaneously 4 times daily as needed for High Blood Sugar (f high BG>200). 45 mL 3 ??? glimepiride (AMARYL) 4 mg Tablet Take 1 tablet by mouth 2 times daily. 180 tablet 3 ??? Blood Sugar Diagnostic (ONE TOUCH ULTRA TEST) test strip 1 each by Other route 4 times daily. Use as instructed 400 each 3 ??? Insulin [place], Disposable, (BD INSULIN PEN NEEDLE UF MINI) [...] daily (before meals). 100 each 11 ??? glucagon, human recombinant, 1 mg/mL injection Inject 1 mL into the muscle as needed. 1 each prn ??? allopurinol (ZYLOPRIM) 300 mg tablet ??? lisinopril (PRINIVIL;ZESTRIL) 10 mg tablet ??? aspirin 325 mg EC tablet ??? nitroGLYcerin (NITROSTAT) 0.4 mg SL tablet 0.4 MG = 1 Tablet(s), Sublingual, PRN (Patient not taking: No sig reported) ??? FLUoxetine (PROZAC) 20 mg tablet No current facility-administered medications on file prior to visit. Allergies Allergen Reactions ??? Eptifibatide CIS - thrombocytopenia Social History Social History ??? Marital status: Spouse name: N/A ??? Number of children: N/A ??? Years of education: N/A Social History Main Topics ??? Smoking status: Never Smoker ??? Smokeless tobacco: Former User Quit date: 01/09/1995 ??? Alcohol use No ??? Drug use: No ??? Sexual activity: Not on file Other Topics Concern ??? Not on file Social History Narrative FAMILY HISTORY Family History Problem Relation Age of Onset ??? Diabetes Brother Physical exam Ht 172.7 cm (5' 8) Comment: stated Wt 90.6 kg (199 lb 12.8 oz) BMI 30.38 kg/m2 Appearance: mildly obese, pleasant, NAD, here with his HEENT: DANYELLE THOMSON Neck: no goiter Abdomen: benign, NT, ND Ext: no pitting edema no foot ulcer Rt arm with bandage s/p Rt ulnar nerve transposition surgery last Neuro: no weakness Recent Results (from the past 24 hour(s)) Hemoglobin A1c Result Value Ref Range Hemoglobin A1C 9.2 (H) 4.3 - 5.6 % Est Avg Gluc 217 mg/dL TSH Result Value Ref Range TSH 1.37 0.27 - 4.20 mcIU/mL Assessment: Diabetes Type 2- much better control but still sub-optimal, switching back from severely uncontrolled DM with high A1c 12.4-14.6% range down to 9.2% today. He has been using insulin sliding scale p.r.n for high BG correction and eating better which helped get him out of glucotoxicity. He rememberedto take and tolerated victoza pen daily with better A1c and stable wt. (He used to respond well to victoza with A1c down quickly to 5.5-6.5% range and be able to stop high dose 70/30 mix 90 u bid). He remains asymptomatic without polyuria or polydipsia and no nocturia. His wt is stable at 199-200 lbs over the past 7 months. He recently had redo surgery for Rt ulnar nerve transposition surgery (1st surgery and 2nd surgery in ). Complication Risk Status: + complications present with painful peripheral neuropathy and ED. Also, treated for CAD s/p stent RCA in 01/07, HTN, Chol, gout on treatment. He is using Imdur and isnot eligible to take cialis or viagra yet and will discuss with his radio broadcaster if imdur can be switched to any other med as he has no angina for a long time now. Plan: 1. Medication: Adjustment of diabetes treatment regimen: To cont victoza pen 1.8 mg sc daily per insurance policy and cost To cont glimiperide 4 mg bid and metformin 1000 mg bid To check FSBG more often tid ac & hs and give Humalog kwickpen sliding scale p.r.n if BG>180based on 1u:20BG ratio (180 3u, 200 5u, 250 8u, 300 10u, 350 13u, 400 15u, etc) To continue all other medications and start taking OTC-B12 1,000 mcg po qd as well for neuropathy but better DM control is critical for him. To contact radio broadcaster if he still needs Imdur or not [...] visit. 4. Lab: Already checked lab as above (pending for B12 and c-peptide). 5. RTC: Next visit in 3 months to keep A1c <9% soon. Will check both HbA1c and may recheck B12 for his painful neuropathy at [...] care. Rodrigo Conteh MD, PhD, FACE CC: LINDA GALEANO MD documented in this encounter Plan of Treatment Upcoming Encounters Date Type Department Care Team (Late st Contact Info) Description 08/18/2024 10:30 AM EST Office [place] [address] Rodrigo Conteh MD [facility] [place] [address] documented as of this encounter Visit Diagnoses Diagnosis Diabetes mellitus type 2, uncontrolled Type II or unspecified type diabetes mellitus without mention of complication, uncontrolled Type 2 diabetes mellitus with hyperglycemia, with long-term current use of insulin Vitamin D insufficiency Unspecified vitamin D deficiency Dyslipidemia Other and unspecified hyperlipidemia documented in this encounter Care Teams Camp Tender Relationship Specialty Start Date End Date Linda Galeano MD [address] [place] [address] PCP - General 07/25/10 01/14/17 documented as of this encounter
--- OUTSIDE RECORDS SUMMARY | 2024-08-14 01:26 | XMS_ITS | Encounter Summary ---
Author Organization [facility] [place] [address] Care Team Providers Care Surgical Services Asst Name Role Phone Linda Galeano MD Primary Care Provider [phone] Encounter Details Date Type Department Care Team (Late st Contact Info) Description 06/10/2015 Orders [place] [phone] Rodrigo Conteh MD [facility] [place] [address] Type 2 diabetes mellitus without complication Social History Tobacco Use Types Packs/Day Years Used Date Smoking Tobacco: Never Smokeless Tobacco: Former Quit: 01/09/1995 Sex and Gender Information Value Date Recorded Sex Assigned at Not on file Gender Identity Not on file Sexual Orientation Not on file documented as of this encounter Plan of Treatment Upcoming Encounters Date Type Department Care Team (Late st Contact Info) Description 08/18/2024 10:30 AM EST Office [place] [phone] Rodrigo Conteh MD [facility] [place] [place] [address] documented as of this encounter Results * (ABNORMAL) Hemoglobin A1c (06/10/2015 12:30 PM EDT) Hemoglobin A1c 12.4(H) 4.3 - 5.6 % [facility] Comment: Reference Range: 4.3 - 5.6% 5.7 [...] Mellitus, Diabetes Care 2013; 36: Suppl. 1, Z27-53 Estimated Average Glucose 309 mg/dL [facility] Comment: eAG equivalents for HbA1c percentages: HbA1c(%) ?eAG(mg/dL) 6.0 ?126 6.5 ?140 7.0 ?154 7.5 ?169 8.0 ?183 8.5 ?197 9.0 ?212 9.5 ?226 10.0 ? 240 Limitations: The eAG calculation has not been validated on women, individuals below 18 years old and above 70 years old, and individuals with hemoglobinopathies. Additional resources are available on the ADA website: http://CardioMind.com/DHMCadacalc Tony WALTERS, Harmeet J, Jj R, et al. ??Translating the A1C assay into estimated average glucose values. ??Diabetes Care 2008:31(8):3369-6254. Blood specimen (specimen) 06/10/2015 12:30 PM EDT 06/10/2015 12:37 PM EDT Narrative Resulting Agency Comment Spec In Lab Rodrigo Conteh MD CHEMISTRY ORDERAB LES [facility] documented in this encounter Visit Diagnoses Diagnosis Type 2 diabetes mellitus without complication Type 2 diabetes mellitus with hyperglycemia, with long-term current use of insulin Vitamin D insufficiency Unspecified vitamin D deficiency Dyslipidemia Other and unspecified hyperlipidemia documented in this encounter Care Teams Surgical Services Asst Relationship Specialty Start Date End Date Linda Galeano MD [address] [place] [address] PCP - General 07/25/10 01/14/17 documented as of this encounter
--- OUTSIDE RECORDS SUMMARY | 2024-08-14 01:26 | XMS_ITS | Encounter Summary ---
Author Organization [facility] Address [facility] [place] [address] Care Team Providers Care Portfolio Accountant Name Role Phone Linda Galeano MD Primary Care Provider [phone] Reason for Referral * Consultation (Routine) - Closed Specialty Diagnoses / Procedures Referred By Nii hoffman Referred To Contact Plastic Surgery Diagnoses Ulnar neuropathy of right upper extremity Ajay Milner MD [facility] [place] [address] Galdino Wood MD [facility] [place] [address] Referral ID Status Reason Start Date Expiration Date V isits Requested Visits Authorized [id number] Closed Consult, Test & Treat 11/28/2015 11/27/2016 1 1 Reason for Visit * Reason Comments Right Elbow Pain * Consultation (Routine) - Closed Specialty Diagnoses / Procedures Referred By Contac t Referred To Contact Orthopaedics Diagnoses R ELBOW-ULNAR NERVE TRANSPOSITION DOS 04-30-2015 SECOND OPINION WC DOI 01-10-15 Procedures . Self mail Ajay Milner MD [facility] [place] [address] Referral ID Status Reason Start Date Expiration Date V isits Requested Visits Authorized [id number] Closed Consult, Test & Treat 10/28/2015 10/27/2016 1 1 Encounter Details Date Type Department Care Team (Late st Contact Info) Description 11/28/2015 1:25 PM EDT [facility] [place] [address] Ajay Milner MD [facility] [place] [address] Ulnar neuropathy of right upper extremity Social [...] Sign Reading Time Taken Comments Blood Pressure 89/60 11/28/2015 1:20 PM EDT Pulse 85 11/28/2015 1:20 PM EDT Temperature - - Respiratory Rate - - Oxygen Saturation - - Inhaled Oxygen Concentration - - Weight 81.6 kg (180 lb) 11/28/2015 1:20 PM EDT v erbal Height 175.3 cm (5' 9) 11/28/2015 1:20 PM EDT Body Mass Index 26.58 11/28/2015 1:20 PM EDT documented in this encounter Progress Notes * Ajay Milner MD - 11/28/2015 2:38 PM EDT Isiah Medrano is self-referred for evaluation of an injury to his right ulnar nerve. He reports that while at work for the [employer] on 01/10/15, he was climbing into his truck and sustained a very severe contusion to his right ulnar nerve at the level of the elbow. He was seen clinically and followed clinically for this by Dr. Noel Townsend of [facility]. After a period of observation, he underwent right ulnar nerve transposition at the elbow into a subcutaneous position. The patient had no improvement in his symptoms after the surgery was done, and he had repeat electrodiagnostic studies done on 09/14/15, which showed essentially no improvement in ulnar nerve function when compared to his preoperative electrodiagnostic studies. These preoperative and postoperative studies are available in scanned documents. They also showed evidence of a right median neuropathy which is of questionable significance in this case, since these do not seem to be his major symptoms, although he probably does have some degree of median nerve entrapment of his right wrist. He has been unable to return to work since he has not been released by Dr. Townsend. He has been very diligent in physical therapy and has been able to obtain full range of motion of the elbow, wrist, and hand, although he is having some shoulder issues. He is due to see Dr. Townsend back for his shoulder in the near future. He is here to ask about whether anything further can be done for this ulnar nerve problem beyond what has already taken place. He does have type 2 diabetes, gout, and hyperlipidemia. He has also had a prior history of an [place]. Examination reveals an alert, oriented male in no apparent distress. He has a well-healed scar present over the ulnar groove of his right elbow. He has unrestricted elbow range of motion. I can palpate his ulnar nerve as it courses anterior to the medial epicondyle and it does not appear to sublux. Palpation and percussion of the ulnar nerve are not very symptomatic for him, and he does not have significant positive Tinel test. He has no ney-incisional numbness around the elbow. He has essentially full wrist and finger range of motion. He has some very mild weakness of his abductor digiti minimi and negative Froment's test. He has a negative Wartenberg's sign today. He has no digital climb of his fingers. He has diminished sensation which I measure at 10 mm of 2-point discrimination in the small finger on the ulnar and radial aspects of the ring finger, stepping down to 6 mm 2-point discrimination in the long and index fingers and thumb. His hand is well perfused. He has no obvious dermatologic lesions. 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 Surgery was done in April for an injury that occurred in December 2014. The nerve clinically appears to be anteriorly transposed and does not sublux. Based on my assessment, I do not see an obvious surgical procedure that I would recommend to address this, since the nerve has been decompressed and transposed. I will ask him to have a 2nd opinion with Dr. Cesar Wood to make sure I am not missing something in this case, but I would recommend ongoing physical therapy and time. It is unclear to me whether this nerve will recover further beyond where it is. I will see him for this in the future on a PRN basis. His shoulder problems will be addressed by Dr. Townsend in [place]. documented in this encounter Plan of Treatment Upcoming Encounters Date Type Department Care Team (Late st Contact Info) Description 08/18/2024 10:30 AM EST Office [place] [address] Rodrigo Conteh MD [facility] [place] [address] Scheduled Referrals Name Type Priority Associated Diagnoses Orde r Schedule Referral to Plastic Surgery Outpatient Referral Routine Ulnar neuropathy of right upper extremity Ordered: 11/28/2015 documented as of this encounter Visit Diagnoses Diagnosis Ulnar neuropathy of right upper extremity Lesion of ulnar nerve Type 2 diabetes mellitus with hyperglycemia, with long-term current use of insulin Vitamin D insufficiency Unspecified vitamin D deficiency Dyslipidemia Other and unspecified hyperlipidemia documented in this encounter Care Teams Portfolio Accountant Relationship Specialty Start Date End Date Linda Galeano MD [address] [place] [address] PCP - General 07/25/10 01/14/17 documented as of this encounter
--- OUTSIDE RECORDS SUMMARY | 2024-08-14 01:26 | XMS_ITS | Encounter Summary ---
Author Organization [facility] [place] [address] Care Team Providers Care [employer] Name Role Phone Linda Galeano MD Primary Care Provider [phone] Reason for Visit * Reason Comments Diabetes Encounter Details Date Type Department Care Team (Late st Contact Info) Description 07/27/2013 11:30 AM EST Office Visit [place] [address] Rodrigo Conteh MD [facility] [place] [address] Type II or unspecified type diabetes mellitus without mention of complication, not stated as uncontrolled (Primary Dx) Discharge Disposition: Home Social History Tobacco Use Types Packs/Day Years Used Date Smoking Tobacco: Never Sex and Gender Information Value Date Recorded Sex Assigned at Not on file Gender Identity Not on file Sexual Orientation Not on file documented as of this encounter Last Filed Vital Signs Vital Sign Reading Time Taken Comments Blood Pressure 131/86 07/27/2013 11:25 AM EST Pulse 78 07/27/2013 11:25 AM EST Temperature - - Respiratory Rate - - Oxygen Saturation - - Inhaled Oxygen Concentration - - Weight 90.8 kg (200 lb 3.2 oz) 07/27/2013 11:25 AM EST Height - - Body Mass Index 32.31 11/04/2012 1:49 PM EST documented in this encounter Patient Instructions * Patient Instructions* Rodrigo Conteh MD - 07/27/2013 12:08 PM EST Assessment: Diabetes Type 2- much better control quickly and switched back from high dose 70/30 mix 90 u bid tovictoza 1.8 mg qd over the past week with good BG control. He also feels better and gained muscle strength back. His islet cells are functioning better and he is now out of glucotoxicty phase Complication Risk Status: no complications present. Also, treated for CAD s/p stent RCA in 01/07, HTN, Chol, gout on treatment. Plan: 1. Medication: Adjustment of diabetes treatment regimen: to cont victoza 1.8 mg sc qd and metformin 1000 mg bid To cont to check FSBG tid ac &hs and ok to give Humalog kwickpen sliding scale p.r.n if BG>180 based on 1u:20BG ratio (180 3u, 200 5u, 250 8u, 300 10u, 350 13u, 400 15u, etc) To continue all other medications 2. Monitoring: to check FSBG before each meal and at bedtime. Target BG 80-140 while fasting and 80-150 pre-meal during daytime 1-2 h post meal below 180-200. Target A1c < 7% for this patient. 3. Diet and exercise: low fat/controlled carb diet & exercise as tolerated to keep weight down or at least stable. Patient will keep log of blood glucose and insulin used for review at next visit. 4. Lab: Already checked lab last month 5. RTC: Next visit in 2 months. Will check HbA1c at the time (Quick draw lab before visit with us on the same day). documented in this encounter Progress Notes * Rodrigo Conteh MD - 07/27/2013 11:50 AM EST Endocrine Clinic Name: [facility] : 1965 Date: 07/27/2013 PCP: LINDA GALEANO MD Provided by: Rodrigo Conteh MD Reason for visit: Follow-up diabetes Diabetes treatment regimen: victoza 1.8 mcg sc qd and metformin 1000 mg bid(stopped insulin 70/30 90u bid about 2 weeks ago) FSBG: checked 4x/day as instructed, ranging 96-198 mg/dl Most recent HA1c: 14.6%on 06/19/13 and will be much better next time (was 9.5% on 02/24/13 before hestopped checking FSBG and lagging on DM Rx) Hypoglycemia during the interval time: none Diet: low fat/low carb diet Exercise: walking Complications: no changes during the interim. Prevention: same as last visit recently. He is doing much better with BG 100s range most of the time and was able to switch back from high dose insulin to victoza 2 weeks ago without problem. He feels better when BG is down to target range and knows if BG is getting low while using insulin. No GI side effects on victoza pen. Denies any changes in vision, no CP, SOB, GI issues, leg swelling or foot ulcer. ROS: Please see HPI, all others negative Patient Active Problem List Diagnosis Code ??? CIS - Acute non-ST segment elevation myocardial infarction T999.0 ??? CIS - Depression T999.0 ??? CIS - Diabetes mellitus type II T999.0 ??? CIS - Essential hypertension T999.0 ??? CIS - Gout T999.0 ??? CIS - Hyperlipidemia T999.0 Current Outpatient Prescriptions on File Prior to Visit Medication Sig Dispense Refill ??? Insulin Lispro (HUMALOG KWIKPEN) InPn Inject 0.02-0.2 mLs subcutaneously 4 times daily as needed (sliding scale if BG>150 ). 5 pens free with coupon 15 mL 0 ??? Blood Sugar Diagnostic (ONE TOUCH ULTRA TEST) test strip 1 each by Other route 4 times daily. Use as instructed 400 each 3 ??? Liraglutide (VICTOZA 3-GARTH) 0.6 mg/0.1 mL (18 mg/3 mL) PnIj Inject 1.8 mg subcutaneously daily.1 month = 3 pens 3 Pen 11 ??? Insulin [place], Disposable, (BD INSULIN PEN NEEDLE UF MINI) 31 x 3/16 Ndle by Other route. 1box = 100 insulin PEN needles. 1 Box 11 ??? metFORMIN (GLUCOPHAGE) 500 mg tablet Take 1,000 mg by mouth 2 times daily (with meals). ??? allopurinol (ZYLOPRIM) 300 mg tablet ??? lisinopril (PRINIVIL;ZESTRIL) 10 mg tablet ??? aspirin 325 mg EC tablet ??? FLUoxetine (PROZAC) 20 mg tablet ??? pravastatin (PRAVACHOL) 40 mg tablet ??? Insulin Syringe-Needle U-100 (BD INSULIN SYRINGE ULT-FINE II) 1 mL 31 x 5/16 Syrg 1 each by Misc.(Non-Drug; Combo Route) route 2 times daily (before meals). 100 each 11 ??? glucagon, human recombinant, 1 mg/mL injection Inject 1 mL into the muscle as needed. 1 each prn ??? nitroGLYcerin (NITROSTAT) 0.4 mg SL tablet 0.4 MG = 1 Tablet(s), Sublingual, PRN Allergies Allergen Reactions ??? Eptifibatide CIS - thrombocytopenia History Social History ??? Marital Status: Spouse Name: N/A Number of Children: N/A ??? Years of Education: N/A Social History Main Topics ??? Smoking status: Never Smoker ??? Smokeless tobacco: None ??? Alcohol Use: None ??? Drug Use: None ??? Sexually Active: None Other Topics Concern ??? None Social History Narrative ??? None FAMILY HISTORY Family History Problem Relation Age of Onset ??? Diabetes Brother Physical exam BP 131/86 Pulse 78 Wt 90.81 kg (200 lb 3.2 oz) Appearance: mildly obese, pleasant, NAD HEENT: PERRLA, EOMI Neck: no goiter Abdomen: benign, NT, ND Ext: no pitting edema no foot ulcer Neuro: no weakness Assessment: Diabetes Type 2- much better control quickly and switched back from high dose 70/30 mix 90 u bid tovictoza 1.8 mg qd over the past week with good BG control. He also feels better and gained muscle strength back. His islet cells are functioning better and he is now out of glucotoxicty phase Complication Risk Status: no complications present. Also, treated for CAD s/p stent RCA in 01/07, HTN, Chol, gout on treatment. Plan: 1. Medication: Adjustment of diabetes treatment regimen: to cont victoza 1.8 mg sc qd and metformin 1000 mg bid To cont to check FSBG tid ac &hs and ok to give Humalog kwickpen sliding scale p.r.n if BG>180 based on 1u:20BG ratio (180 3u, 200 5u, 250 8u, 300 10u, 350 13u, 400 15u, etc) To continue all other medications 2. Monitoring: to check FSBG before each meal and at bedtime. Target BG 80-140 while fasting and 80-150 pre-meal during daytime 1-2 h post meal below 180-200. Target A1c < 7% for this patient. 3. Diet and exercise: low fat/controlled carb diet & exercise as tolerated to keep weight down or at least stable. Patient will keep log of blood glucose and insulin used for review at next visit. 4. Lab: Already checked lab last month 5. RTC: Next visit in 2 months. Will check HbA1c at the time (Quick draw lab [...] 10:30 AM EST Office Visit [place] [address] Rodrigo Conteh MD [facility] [place] [address] documented as of this encounter Visit Diagnoses Diagnosis Type II or unspecified type diabetes mellitus without mention of complication, not stated as uncontrolled- Primary Type 2 diabetes mellitus with hyperglycemia, with long-term current use of insulin Vitamin D insufficiency Unspecified vitamin D deficiency Dyslipidemia Other and unspecified hyperlipidemia documented in this encounter Care Teams [employer] Relationship Specialty Start Date End Date Linda Galeano MD [address] [place] [address] PCP - General 07/25/10 01/14/17 documented as of this encounter
--- OUTSIDE RECORDS SUMMARY | 2024-08-14 01:26 | XMS_ITS | Encounter Summary ---
Author Organization [facility] [place] [address] Care Team Providers Care Ring Stamper Name Role Phone Linda Galeano MD Primary Care Provider [phone] Reason for Referral * Occupational Therapy (Routine) - Closed Specialty Diagnoses / Procedures Referred By Nii hoffman Referred To Contact Occupational Therapy Diagnoses Ulnar neuropathy of right upper extremity Galdino Covington MD [facility] [place] [address] [facility] [place] [address] Referral ID Status Reason Start Date Expiration Date V isits Requested Visits Authorized [id number] Closed Evaluate and Treat 12/12/2015 12/11/2016 1 1 Reason for Visit * Reason Comments Advice Only right ulnar neuropat hy * Consultation (Routine) - Closed Specialty Diagnoses / Procedures Referred By Nii hoffman Referred To Contact Plastic Surgery Diagnoses Ulnar neuropathy of right upper extremity Ajay Milner MD [facility] [place] [address] Galdino Covington MD [facility] [place] [address] Referral ID Status Reason Start Date Expiration Date V isits Requested Visits Authorized [id number] Closed Consult, Test & Treat 11/28/2015 11/27/2016 1 1 Encounter Details Date Type Department Care Team (Late st Contact Info) Description 12/12/2015 1:00 PM EDT Office Visit [place] [address] Galdino Covington MD [facility] [place] [address] Ulnar neuropathy of right upper extremity Social [...] encounter Patient Instructions * Patient Instructions* Mavis Ann RMA - 12/12/2015 1:27 PM EDT You were given written and verbal preoperative instructions today. To prepare for your upcoming surgery, please review the Pre-Operative Instruction brochure that wasgiven to you. Remember to do the pre op wash, with Hibiclens soap, as instructed. You will need a bulk delivery driver. Expect a call from the nurses from the Same Day Dept. the business day before the surgery to instruct you in the time to arrive as well as when to stop eating and drinking. Feel free to call our office @ [phone] if you have any questions or concerns. We monitor the phones from 04-06 through Saturday.Written and verbal preoperative instructions were given at this visit. Please review the written information prior to your procedure and contact us with any questions.Feel free to call our office at if you have any questions or concerns. We monitor thephones from -Saturday - Saturday. documented in this encounter Progress Notes * Mavis Ann RMA - 12/12/2015 1:26 PM EDT Pre-Op Teaching for Surgery Surgery: Cubital nerve transposition right arm Written and verbal pre-operative instructions were given and reviewed with patient: Patient was advised to discontinue use of NSAIDS and aspirin products (unless otherwise advised by patient's PCP/[employer] Cafe for cardiac symptoms), fish oil, Vitamin E and herbal supplements for 14 days prior to surgery, to perform the pre-op scrub, and to coordinate a ride home following surgery. Smoking status and medications were further reviewed to rule out/address current use of Nicotine, Coumadin, Plavix, Estrogen or Tamoxifen. Patient was instructed to call the clinic at with any questions or concerns prior tosurgery. * Galdino Covington MD - 12/12/2015 1:05 PM EDT Plastic Surgery Consultation Note LINDA GALEANO MD None CC: Right Ulnar neuropathy Pertinent history obtained from Dr. Milner's 11/27/exam note Isiah Medrano is self-referred for evaluation of an injury to his right ulnar nerve. ?? He reports that while at work for the [employer] on 01/10/15, he was climbing into his truck and sustained a very severe contusion to his right ulnar nerve at the level of the elbow.?? He was seen clinically and followed clinically for this by Dr. Noel Townsend of [facility].?? After a period of observation, he underwent right ulnar nerve transposition at the elbow into a subcutaneous position. ?? The patient had no improvement in his symptoms after the surgery was done, and he had repeat electrodiagnostic studies done on 09/14/15, which showed essentially no improvement in ulnar nerve function when compared to his preoperative electrodiagnostic studies.?? These preoperative and postoperative studies are available in scanned documents.?? They also showed evidence of a right median neuropathy which is of questionable significance in this case, since these do not seem to be his major symptoms, although he probably does have some degree of median nerve entrapment of his right wrist.?? He has been unable to return to work since he has not been released by Dr. Townsend.?? He has been very diligent in physical therapy and has been able to obtain full range of motion of the elbow, wrist, and hand, although he is having some shoulder issues.?? He is due to see Dr. Townsend back for his shoulder in the near future HPI: Isiah Medrano is a 50 y.o. male here in consultation at the request of LINDA GALEANO MD. He was evaluated by Dr milner on 11/28/15 and at that visit he recommended a second opinion with myself for evaluation. He reports he has not had any improvement in his symptoms following surgery. Except he now has occasional shooting pain down his arm. He has been on a course of Gabapentin for his discomfort. Electrical studies at [facility] pre operative and in September 2015 which do not reveal any improvement compared to his pre operative study. Report is in his scanned notes in his electronic medical record at page 37 of the notes dated 11/15/15. Past Medical History Diagnosis Date ??? Diabetes mellitus Past Surgical History Procedure Laterality Date ??? Created by interface cardiac stent to RCA 01/2008 Procedure Date: January 2008 ??? Created by interface Hand operations x2 Procedure Date: Unknown History Social History ??? Marital Status: Spouse Name: N/A Number of Children: N/A ??? Years of Education: N/A Occupational History ??? Not on file. Social History Main Topics ??? Smoking status: Never Smoker ??? Smokeless tobacco: Former User Quit date: 01/09/1995 ??? Alcohol Use: No ??? Drug Use: No ??? Sexual Activity: Not on file Other Topics Concern ??? Not on file Social History Narrative Allergies Allergen Reactions ??? Eptifibatide CIS - thrombocytopenia Current Outpatient Prescriptions on File Prior to Visit Medication Sig Dispense Refill ??? liraglutide (VICTOZA) 0.6 mg/0.1 mL (18 mg/3 mL) Pen Injector Inject 0.6 mg subcutaneously daily. For one week. 1.2 mg daily for one week. Then 1.8 mg daily 9 Syringe 3 ??? insulin needles, disposable, 31 gauge x 01/15 Needle ??? atorvastatin (LIPITOR) 40 mg Tablet daily. ??? gabapentin (NEURONTIN) 300 mg Capsule [...] 2 times daily. 180 tablet 3 ??? Insulin Lispro (HUMALOG KWIKPEN) InPn Inject 0.02-0.2 mLs subcutaneously 4 times daily as needed (sliding scale if BG>150 ). 5 pens free with coupon 15 mL 0 ??? Blood Sugar Diagnostic (ONE TOUCH ULTRA TEST) test strip 1 each by Other route 4 times daily. Use as instructed 400 each 3 ??? Insulin [place], Disposable, (BD INSULIN PEN NEEDLE UF MINI) [...] 0.4 MG = 1 Tablet(s), Sublingual, PRN ??? FLUoxetine (PROZAC) 20 mg tablet ??? pravastatin (PRAVACHOL) 40 mg tablet No current facility-administered medications on file prior to visit. ROS: HEENT, GI, /Renal, Psych, Card, Pulm, Endo, Heme, Immun, Neuro: negative Examination: There were no vitals taken for this visit. Constitutional: No acute distress HEENT: MMM, normocephalic, extra ocular movement intact, sclera: white, no facial abrasions Pulm: symmetric excursion, unlabored, no audible wheeze Cor: pulse regular Right hand Positive tinel's's over the ulnar nerve Numbness along the dorsal ulnar aspepct of the hand, little finger, and ulnar side of ring finger weakness of FCU, and FDP of ring and little fingers Weakness in finger abduction FDI 4/5 Impression: Isiah Medrano 50 y.o. male patient with right ulnar neuropathy s/p decompression in April with no improvement. I discussed treatment options focusing on surgical intervention to transpose the ulnar nerve into the muscle. We discussed potential risks and complications which include but are not limited to: Pain, bleeding, infection, scarring, asymmetry, hematoma, seroma, poor cosmetic outcome, failure ofprocedure, possible need for revision, damage to adjacent structures. Plan: 1.Schedule for surgery Dr Covington Duration: 2 hours Timeframe: elective Procedure: ulnar nerve muscle transposition CPT: 48290, 43670 Surgical site: arm Side: right Anesthesia: General Follow up: 14 Days coordinate with OT PAT: Maria Antonia Craven, Imani Henriquez am acting as scribe for Dr Covington. All work documented was performed by Dr Covington. ???I performed the above scribed service and agree with the accuracy of the note?? GALDINO COVINGTON MD documented in this encounter Plan of Treatment Upcoming Encounters Date Type Department Care Team (Late st Contact Info) Description 08/18/2024 10:30 AM EST Office Visit [place] [address] Rodrigo Conteh MD [facility] [place] [address] Scheduled Referrals Name Type Priority Associated Diagnoses Order Schedule Referral to Occupational Therapy Outpatient Referral Routine Ulnar neuropathy of right upper extremity Ordered: 12/12/2015 documented as of this encounter Procedures Procedure Name Priority Date/Time Associated Diagnosis Comments NEUROPLASTY &/OR TRANSPOSITION, ULNAR NERVE AT ELBOW Routine 12/12/2015 1:22 PM EDT documented in this encounter Visit Diagnoses Diagnosis Ulnar neuropathy of right upper extremity Lesion of ulnar nerve Type 2 diabetes mellitus with hyperglycemia, with long-term current use of insulin Vitamin D insufficiency Unspecified vitamin D deficiency Dyslipidemia Other and unspecified hyperlipidemia documented in this encounter Care Teams Ring Stamper Relationship Specialty Start Date End Date Linda Galeano MD [address] [place] [address] PCP - General 07/25/10 01/14/17 documented as of this encounter
--- OUTSIDE RECORDS SUMMARY | 2024-08-14 01:26 | XMS_ITS | Encounter Summary ---
Author Organization [facility] Address [facility] [address] Care Team Providers Care Roguer Name Role Phone Linda Galeano MD Primary Care Provider Encounter Details Date Type Department Care Team (Latest Contact Info) Description 02/24/2013 12:56 PM EDT - 02/24/2013 11:59 PM EDT Hospital [place] [phone] Brian Bishop MD [facility] [place] [address] Type II or unspecified type diabetes mellitus without mention of complication, uncontrolled; Hyperlipidemia Discharge Disposition: Home Social History Tobacco Use Types Packs/Day Years Used Date Smoking Tobacco: Never Sex and Gender Information Value Date Recorded Sex Assigned at Not on file Gender Identity Not on file Sexual Orientation Not on file documented as of this encounter Medications at Time of Discharge Medication Sig Dispensed Refills Start Date End Date Insulin Syringe-Needle U-100 (BD INSULIN SYRINGE ULT-FINE II) 1 mL 31 x 5/16 Syrg 1 each by Misc.(Non-Drug; Combo Route) route 2 times daily (before meals). 100 each 11/04/2012 Liraglutide (VICTOZA 3-GARTH) 0.6 mg/0.1 mL (18 mg/3 mL) PnIj Inject 1.8 mg subcutaneously daily. 1 month = 3 pens 3 Pen 02/24/2013 09/15/2015 Insulin [place], Disposable, (BD INSULIN PEN NEEDLE UF MINI) 31 x 3/16 Ndle by Other route. 1 box = 100 insulin PEN needles. 1 Box 11 02/24/2013 06/15/2019 insulin aspart protamine-insulin aspart 70/30 (NOVOLOG MIX 70-30) 100 unit/mL (70-30) injection Inject 40 Units subcutaneously 2 times daily (before meals). 50 mL 11 02/24/2013 03/30/2013 metFORMIN (GLUCOPHAGE) 500 mg tablet Take 1,000 mg by mouth 2 times daily (with meals). 12/26/2018 glucagon, human recombinant, 1 mg/mL injection Inject 1 mL into the muscle as needed. 1 each prn 11/04/2012 02/07/2017 allopurinol (ZYLOPRIM) 300 mg tablet 04/22/2009 02/07/2017 lisinopril (PRINIVIL;ZESTRIL) 10 mg tablet 04/22/2009 04/03/2016 aspirin 325 mg EC tablet 04/22/2009 02/07/2017 nitroGLYcerin (NITROSTAT) 0.4 mg SL tablet 0.4 MG = 1 Tablet(s), Sublingual, PRN 04/22/2009 04/23/2016 FLUoxetine (PROZAC) 20 mg tablet 04/22/2009 02/07/2017 pravastatin (PRAVACHOL) 40 mg tablet 04/22/2009 2016 documented as of this encounter Plan of Treatment Upcoming Encounters Date Type Department Care Team (Late st Contact Info) Description 08/18/2024 10:30 AM EST Office [place] [address] Rodrigo Conteh MD [facility] [place] [address] documented as of this encounter Procedures Procedure Name Priority Date/Time Associated Diagnosis Comments U ALBUMIN/CRE RATIO Routine 02/24/2013 1 :45 PM EDT Type II or unspecified type diabetes mellitus without mention of complication, uncontrolled VITAMIN D, 25-HYDROXY Routine 02/24/2013 1:09 PM EDT Type II or unspecified type diabetes mellitus without mention of complication, uncontrolled TSH Routine 02/24/2013 1:09 PM EDT Type II or unspecified type diabetes mellitus without mention of complication, uncontrolled LDL CHOLESTEROL, DIRECT Routine 02/24/2013 1:09 PM EDT Hyperlipidemia HDL/CHOL PROFILE Routine 02/24/2013 1:09 PM EDT Hyperlipidemia HEMOGLOBIN A1C Routine 02/24/2013 1:09 PM EDT Type II or unspecified type diabetes mellitus without mention of complication, uncontrolled documented in this encounter Results * Microalbumin, urine, random (02/24/2013 1:45 PM EDT) Creatinine, Urine 127 mg/dL CE RNER MILLENNIUM Albumin, Urine 5.2 mg/L CERNE R MILLENNIUM Albumin / Creatinin Ratio, Urine 4 mcg/mg Cr CERNER MILLENNIUM Comment: Reference Range* Random collection (mcg/mg creatinine) Normal ?<30 Microalbuminuria ?? 30 - 300 Clinical Albuminuria ?? >300 *[place] Diabetes Association. Diabetic Nephropathy. Diabetes Care 1997;(Suppl 1):S24-S27 Exercise within 24 hour, infection, fever, CHF, marked hyperglycemia, and marked hypertension may elevate urinary albumin excretion over baseline values. Urine specimen (specimen) 02/24/2013 1:45 PM EDT 02/24/2013 1:56 PM EDT Narrative Resulting Agency Comment Spec In Lab Brian Bishop MD URINE ORDERABLES [facility] * (ABNORMAL) LDL Cholesterol, Direct (02/24/2013 1:09 PM EDT) LDL Cholesterol, Direct 114(H) <=99 mg/dL EVGENY MILLENNIUM Comment: The National Cholesterol Education Program (NCEP) has set the following guidelines for LDL Cholesterol: Reference range: ?? Optimal: ?<100 mg/dL ?? Near Optimal/Above Optimal: ?? 100-129 mg/dL ?? Borderline high: ?130-159 mg/dL ?? High: ? 160-189 mg/dL ?? Very high: ?>ua=606 mg/dL JANNY 2001: 285(19):5158-5040 Blood specimen (specimen) 02/24/2013 1:09 PM EDT 02/24/2013 1:36 PM EDT Narrative Resulting Agency Comment Spec In Lab Brian Bishop MD CHEMISTRY ORDERABLES Performing Organization Address [facility] de Phone Number [facility] Guidance * (ABNORMAL) HDL/Cholesterol Profile (02/24/2013 1:09 PM EDT) Cholesterol, Total 192 <=199 mg/dL CERNER Violin MemoryENNIUM Comment: Recommendations of the NCEP Adult Treatment Panel for the following risk cutoff thresholds for the [place] population: Desirable: <200 mg/dL Borderline High: 200-239 mg/dL High: > or = 240 mg/dL HDL Cholesterol 37(L) >=40 mg/dL CER NER Violin MemoryENNIUM Comment: Reference range: ??Low HDL: ?? < 40 mg/dL ??Normal: ?40-60 mg/dL ??Desirable: > 60 mg/dL JANNY 2001; 285(19):9589-5899 Cholesterol/HDL Ratio 5.2 ratio CERNER MILLENNIUM Comment: A Cholesterol to HDL ratio below 4:1 is desirable. ??Studies suggest that increased CAD risk occurs at ratios above 5 for females and above 6 for men. ? [place] Heart Association ??(http://www.americanheart.org) ? [place]avita Int Med, 1994; 121:641 ? AM J Med, 1998; 105(1A):48S Blood specimen (specimen) 02/24/2013 1:09 PM EDT 02/24/2013 1:36 PM EDT Narrative Resulting Agency Comment Spec In Lab Brian Bishop MD CHEMISTRY ORDERABLES Performing Organization Address [facility]/ZIP Co de Phone Number [facility] * VIT D Total Evaluation (02/24/2013 1:09 PM EDT) Vitamin D Total 25 OH 54 30 - 100 ng/mL [facility] Comment: Deficient <10 ng/mL Insufficient 10 to 29 ng/mL Sufficient 30 to 100 ng/mL Potential Intoxication >100 ng/mL According to the [place] National Osteoporosis Foundation, Vitamin D concentrations >30 ng/mL are sufficient to protect bone health. ??The National Kidney Foundation has similarly stated that patients with Vitamin D concentrations <30ng/mL should be considered to be insufficient or deficient. http://www.kidney.org/professionals/KDOQI/guidelines_bone/Guide7.htm http://www.nof.org/professionals/clinical-guidelines The IDS iSYS Vitamin D Immunoassay detects both 25-OH Vitamin D2 and 25-OH Vitamin D3, but only a total Vitamin D concentration is reported. Blood specimen (specimen) 02/24/2013 1:09 PM EDT 02/24/2013 1:36 PM EDT Narrative Resulting Agency Comment Spec In Lab Brian Bishop MD CHEMISTRY ORDERABLES Performing Organization Address [facility] de Phone Number [facility] * TSH (02/24/2013 1:09 PM EDT) Thyroid Stimulating Hormone 1.03 0.27 - 4.20 mcIU/mL [facility] Blood specimen (specimen) 02/24/2013 1:09 PM EDT 02/24/2013 1:36 PM EDT Narrative Resulting Agency Comment Spec In Lab Brian Bishop MD CHEMISTRY ORDERABLES Performing Organization Address [facility] Co de Phone Number [facility] * (ABNORMAL) Hemoglobin A1c (02/24/2013 1:09 PM EDT) Hemoglobin A1c 9.5(H) 4.3 - 6.1 % [facility] Comment: The [place] Diabetes Association (ADA) has stated that HbA1c values >or= 6.5% are consistent with the diagnosis of diabetes mellitus. In the absence of hyperglycemia (i.e. plasma glucose > 200 mg/dL) or classic symptoms of hyperglycemia a repeat measurement of HbA1c should be performed on a separate sample to confirm the diagnosis. The ADA also considers an HbA1c value between 5.7% and 6.4% to be consistent with an increased risk of diabetes (prediabetes). Patients with an HbA1c value in this range should be counseled about their increased risk of progressing to diabetes. Reference: Position Statement: Standards of Medical Care in Diabetes 2013. Diabetes Care 2013:36;suppl 1:S11-S66. Estimated Average Glucose 226 mg/dL [facility] Comment: eAG equivalents for HbA1c percentages: HbA1c(%) ?eAG(mg/dL) 6.0 ?126 6.5 ?140 7.0 ?154 7.5 ?169 8.0 ?183 8.5 ?197 9.0 ?212 9.5 ?226 10.0 ? 240 Limitations: The eAG calculation has not been validated on women, individuals below 18 years old and above 70 years old, and individuals with hemoglobinopathies. Additional resources are available on the ADA website: ??http://professional.diabetes.org/glucosecalculator.aspx Tony WALTERS, Harmeet J, Jj R, et al. ??Translating the A1C assay into estimated average glucose values. ??Diabetes Care 2008:31(8):6772-5325. Blood specimen (specimen) 02/24/2013 1:09 PM EDT 02/24/2013 1:35 PM EDT Narrative Resulting Agency Comment Spec In Lab Brian Bishop MD CHEMISTRY ORDERABLES [facility] documented in this encounter Visit Diagnoses Diagnosis Type II or unspecified type diabetes mellitus without mention of complication, uncontrolled Hyperlipidemia Other and unspecified hyperlipidemia Type 2 diabetes mellitus with hyperglycemia, with long-term current use of insulin Vitamin D insufficiency Unspecified vitamin D deficiency Dyslipidemia Other and unspecified hyperlipidemia documented in this encounter Care Teams Roguer Relationship Specialty Start Date End Date Linda Galeano MD [address] [place] [address] PCP - General 07/25/10 01/14/17 documented as of this encounter
--- OUTSIDE RECORDS SUMMARY | 2024-08-14 01:26 | XMS_ITS | Encounter Summary ---
Author Organization [facility] [place] [address] Care Team Providers Care Rail Car Painter/Sandblaster Name Role Phone Linda Galeano MD Primary Care Provider [phone] Reason for Visit * Reason Onset Date Comments Medication Refill 10/12/2015 Encounter Details Date Type Department Care Team (Late st Contact Info) Description 10/12/2015 Refill [place] [address] Rodrigo Conteh MD [facility] [place] [address] Social History Tobacco Use Types Packs/Day Years [...] 10:30 AM EST Office [place] [address] Rodrigo Conteh MD [facility] [place] [address] documented as of this encounter Visit Diagnoses Not on filedocumented in this encounter Care Teams Rail Car Painter/Sandblaster Relationship Specialty Start Date End Date Linda Galeano MD [address] [place] [address] PCP - General 07/25/10 01/14/17 documented as of this encounter
--- OUTSIDE RECORDS SUMMARY | 2024-08-14 01:26 | XMS_ITS | Encounter Summary ---
Author Organization [facility] [place] [address] Care Team Providers Care Etymology Teacher Name Role Phone Linda Galeano MD Primary Care Provider [phone] Encounter Details Date Type Department Care Team (Late st Contact Info) Description 06/10/2015 Telephone [place] [phone] Ameena Pope RN Social History Tobacco Use Types Packs/Day Years Used Date Smoking Tobacco: Never Smokeless Tobacco: Former Quit: 01/09/1995 Sex and Gender Information Value Date Recorded Sex Assigned at Not on file Gender Identity Not on file Sexual Orientation Not on file documented as of this encounter Miscellaneous Notes * Telephone Encounter - Ameena Pope RN - 06/10/2015 3:29 PM EDT Patient's pharmacy wanted to confirm the change of patient's glimeperide from 2mg to 4mg, this was confirmed based on the most recent office visit note from today. To use glimiperide 4 mg bid and metformin 1000 mg bid Pharmacy verbalized understanding of these instructions. documented in this encounter Plan of Treatment Upcoming Encounters Date Type Department Care Team (Late st Contact Info) Description 08/18/2024 10:30 AM EST Office [place] [phone] Rodrigo Conteh MD [facility] [place] [address] documented as of this encounter Visit Diagnoses Not on filedocumented in this encounter Care Teams Etymology Teacher Relationship Specialty Start Date End Date Linda Galeano MD [address] [place] [address] PCP - General 07/25/10 01/14/17 documented as of this encounter
--- OUTSIDE RECORDS SUMMARY | 2024-08-14 01:26 | XMS_ITS | Encounter Summary ---
Author Organization Formerly [facility] [place] [address] Care Team Providers Care Automobile Relocation Engineer Name Role Phone Linda Galeano MD Primary Care Provider [phone] Reason for Visit * Reason Comments Diabetes new pt work up Encounter Details Date Type Department Care Team (Late st Contact Info) Description 11/04/2012 2:00 PM EST Office [place] [id number] Lizzie Stewart APRN [facility] [place] [address] DM w/o complication type II, uncontrolled (Primary Dx); Hyperlipidemia Discharge Disposition: Home Social History Tobacco Use Types Packs/Day Years Used Date Smoking Tobacco: Never Sex and Gender Information Value Date Recorded Sex Assigned at Not on file Gender Identity Not on file Sexual Orientation Not on file documented as of this encounter Last Filed Vital Signs Vital Sign Reading Time Taken Comments Blood Pressure 117/80 11/04/2012 1:49 PM EST Pulse 79 11/04/2012 1:49 PM EST Temperature - - Respiratory Rate - - Oxygen Saturation - - Inhaled Oxygen Concentration - - Weight 96.8 kg (213 lb 6.4 oz) 11/04/2012 1:49 P M EST Height 167.6 cm (5' 6) 11/04/2012 1:49 PM EST Body Mass Index 34.44 11/04/2012 1:49 PM EST documented in this encounter Patient Instructions * Patient Instructions* Lizzie Stewart APRN - 11/04/2012 2:32 PM EST [email or web address] Stop lantus Start mix insulin before breakfast and evening meals Start novolog mix 55 units before breakfast and evening meals. Increase doses by 4 units every 2 nights until glucose levels are under 130 Always be prepared for low glucose level. Carry glucose tablets documented in this encounter Progress Notes * Lizzie Stewart APRN - 11/04/2012 5:47 PM EST DATE OF VISIT: 11/04/2012. REASON FOR VISIT: New patient to endocrinology for type 2 DM in extremely poor control. BRIEF HISTORY: Presents with and son. States he was able to control his glucose levels with pills in the past and wants to resume using pills. DIABETES REGIMEN: Lantus 80 units q.p.m. DATE OF DIAGNOSIS OF DIABETES: 11 years ago on routine lab, 2001. Past medical history is significant for an NE in 2007. The patient also takes metformin 1000 mg twice a day. 24-HOUR MEAL PLAN: Breakfast is two [place] muffins, ham and cheese, and a sugar free soda. Lunch is two sandwiches with diet bread and three apples. Dinner was two hot dogs with rolls. PHYSICAL ACTIVITY: No planned regimen. 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 There is absolutely no routine to his schedule. States he stopped using the treadmill. Prevention strategies are up-to-date. REVIEW OF SYSTEMS: Depression and Mood: Takes fluoxetine. States he gets very discouraged with glucose levels and states he does not have much energy. Eyes: No recent vision changes. No recent headaches, or chest pain, no shortness of breath. No recent GI symptoms. Appetite is good, in fact he states he is often hungry. Sleep pattern is okay. Skin, no rashes. No sores. Extremities are okay. PHYSICAL EXAMINATION: Appearance: He appears in good health. He is overweight. Weight today 213 pounds. Blood pressure 117/80. Eyes: No retinopathy by green light exam. Neck: No thyromegaly or lymphadenopathy. Heart: Regular rate and rhythm. No murmurs. Lungs are clear to auscultation. Feet: Skin is normal. Pulses are normal. Neuro: Normal sensation to 10 g of pressure. No labs were done today. Hemoglobin A1c at PCP office was 14%. IMPRESSION AND PLAN: Diabetes mellitus type 2, in extremely poor control. Explained to patient that with an A1C of 14%, he definitely needs insulin and should consider basal bolus regimen. He declines that at this time. He would like to try mix insulin twice a day before breakfast and before evening meal since he is home for those two times of the day and thinks it would be too difficult to take a bolus dose midday. Explained to patient that when he saw Dr. Conteh on 02/02/2009 his A1c was 6.5% which was why he could use pills at that time. See office visit note from 02/02/[address] Conteh. Will stop Lantus and we will use NovoLog mix 70/30, start 55 units before breakfast and 55 units before evening meal. Increase doses by 4 units every few days until glucose levels are generally under 130 without low glucose levels. Reviewed prevention and treatment of hypoglycemia with and son. Encouraged patient to wear a medic ID and to keep glucose tablets available. At this time, he has one fireball candy to treat a low glucose level. Return to office in January. Will check hemoglobin A1c, HDL, DLDL, microalbumin, TSH, and vitamin D. We will schedule that appointment with Dr. Conteh so she can discuss with the patient the need for insulin at this time. Also gave patient copy of [facility] diabetes toolkit. This was a 47-minute office visit 46 minutes spent counseling with patient and in the management of glucose levels, importance of taking enough insulin daily to keep glucose levels closer to 130 before meals. Stressed the importance of daily physical activity, he states he will resume using the treadmill. He did attend cardiac rehab after his NE in 2007. He declines an appointment with APRIL EDWARDS at this time. Dx code: 250.02 SbgM; 3X/day documented in this encounter Plan of Treatment Upcoming Encounters Date Type Department Care Team (Late st Contact Info) Description 08/18/2024 10:30 AM EST Office [place] [address] Rodrigo Conteh MD [facility] [place] [address] documented as of this encounter Results * Microalbumin, urine, random (02/24/2013 1:45 PM EDT) Creatinine, Urine 127 mg/dL CE RNER [facility]ILL[facility] Albumin, Urine 5.2 mg/L CERNE R MILLENNIUM Albumin / Creatinin Ratio, Urine 4 mcg/mg Cr [facility] Comment: Reference Range* Random collection (mcg/mg creatinine) Normal ?<30 Microalbuminuria ?? 30 - 300 Clinical Albuminuria ?? >300 *[place] Diabetes Association. Diabetic Nephropathy. Diabetes Care 1997;(Suppl 1):S24-S27 Exercise within 24 hour, infection, fever, CHF, marked hyperglycemia, and marked hypertension may elevate urinary albumin excretion over baseline values. Urine specimen (specimen) 02/24/2013 1:45 PM EDT 02/24/2013 1:56 PM EDT Narrative Resulting Agency Comment Spec In Lab Brian Bishop MD URINE ORDERABLES [facility] * (ABNORMAL) LDL Cholesterol, Direct (02/24/2013 1:09 PM EDT) LDL Cholesterol, Direct 114(H) <=99 mg/dL [facility] Comment: The National Cholesterol Education Program (NCEP) has set the following guidelines for LDL Cholesterol: Reference range: ?? Optimal: ?<100 mg/dL ?? Near Optimal/Above Optimal: ?? 100-129 mg/dL ?? Borderline high: ?130-159 mg/dL ?? High: ? 160-189 mg/dL ?? Very high: ?>qj=983 mg/dL JANNY 2001: 285(19):2866-1590 Blood specimen (specimen) 02/24/2013 1:09 PM EDT 02/24/2013 1:36 PM EDT Narrative Resulting Agency Comment Spec In Lab Brian Bishop MD CHEMISTRY ORDERABLES Performing Organization Address [facility] Co de Phone Number [facility] * (ABNORMAL) HDL/Cholesterol Profile (02/24/2013 1:09 PM EDT) Cholesterol, Total 192 <=199 mg/dL [facility] Comment: Recommendations of the NCEP Adult Treatment Panel for the following risk cutoff thresholds for the [place] population: Desirable: <200 mg/dL Borderline High: 200-239 mg/dL High: > or = 240 mg/dL HDL Cholesterol 37(L) >=40 mg/dL [facility] Comment: Reference range: ??Low HDL: ?? < 40 mg/dL ??Normal: ?40-60 mg/dL ??Desirable: > 60 mg/dL JANNY 2001; 285(19):2767-8608 Cholesterol/HDL Ratio 5.2 ratio [facility] Comment: A Cholesterol to HDL ratio below 4:1 is desirable. ??Studies suggest that increased CAD risk occurs at ratios above 5 for females and above 6 for men. ? [place] Heart Association ??(http://www.americanheart.org) ? [place] Int Med, 1994; 121:641 ? AM J Med, 1998; 105(1A):48S Blood specimen (specimen) 02/24/2013 1:09 PM EDT 02/24/2013 1:36 PM EDT Narrative Resulting Agency Comment Spec In Lab Brian Bishop MD CHEMISTRY ORDERABLES Performing Organization Address [facility] Co de Phone Number [facility] * VIT D Total Evaluation (02/24/2013 1:09 PM EDT) Vitamin D Total 25 OH 54 30 - 100 ng/mL [facility] Comment: Deficient <10 ng/mL Insufficient 10 to [...] Bishop MD CHEMISTRY ORDERABLES Performing Organization Address [facility] de Phone Number [facility] * TSH (02/24/2013 1:09 PM EDT) Thyroid Stimulating Hormone 1.03 0.27 - 4.20 mcIU/mL [facility] Blood specimen (specimen) 02/24/2013 1:09 PM EDT 02/24/2013 1:36 PM EDT Narrative Resulting Agency Comment Spec In Lab Brian Bishop MD CHEMISTRY ORDERABLES Performing Organization Address [facility] de Phone Number [facility] * (ABNORMAL) Hemoglobin A1c (02/24/2013 1:09 PM EDT) Hemoglobin A1c 9.5(H) 4.3 - 6.1 % [facility] Comment: The [place] Diabetes Association (ADA) has stated that HbA1c [...] 2013:36;suppl 1:S11-S66. Estimated Average Glucose 226 mg/dL [facility] Comment: eAG equivalents for HbA1c percentages: HbA1c(%) [...] into estimated average glucose values. ??Diabetes Care 2008:31(8):5141-7397. Blood specimen (specimen) 02/24/2013 1:09 PM EDT 02/24/2013 1:35 PM EDT Narrative Resulting Agency Comment Spec In Lab Brian Bishop MD CHEMISTRY ORDERABLES [facility] documented in this encounter Visit Diagnoses Diagnosis Type II or unspecified type diabetes mellitus without mention of complication, uncontrolled- Primary Hyperlipidemia Other and unspecified hyperlipidemia Type 2 diabetes mellitus with hyperglycemia, with long-term current use of insulin Vitamin D insufficiency Unspecified vitamin D deficiency Dyslipidemia Other and unspecified hyperlipidemia documented in this encounter Care Teams Automobile Relocation Engineer Relationship Specialty Start Date End Date Linda Galeano MD [address] [place] [address] PCP - General 07/25/10 01/14/17 documented as of this encounter
--- OUTSIDE RECORDS SUMMARY | 2024-08-14 01:26 | XMS_ITS | Encounter Summary ---
Author Organization [facility] [place] [address] Care Team Providers Care Woodwork Salvage Inspector Name Role Phone Linda Galeano MD Primary Care Provider [phone] Reason for Visit * Reason Comments Diabetes Encounter Details Date Type Department Care Team (Late st Contact Info) Description 03/30/2013 1:30 PM EDT Office Visit [place] [phone] Rodrigo Conteh MD [facility] [place] [address] Type II or unspecified type diabetes mellitus [...] Sign Reading Time Taken Comments Blood Pressure 119/80 03/30/2013 1:33 PM EDT Pulse 94 03/30/2013 1:33 PM EDT Temperature - - Respiratory Rate - - Oxygen Saturation - - Inhaled Oxygen Concentration - - Weight 95.3 kg (210 lb) 03/30/2013 1:33 PM EDT Height - - Body Mass Index 33.89 11/04/2012 1:49 PM EST documented in this encounter Patient Instructions * Patient Instructions* Rodrigo Conteh MD - 03/30/2013 1:49 PM EDT Results for REID MEDRANO ( ) as of 03/30/2013 13:46 Ref. Range 02/24/2013 13:09 02/24/2013 13:45 Hemoglobin A1C Latest Range: 4.3-6.1 % 9.5 (H) Est Avg Gluc No range found 226 25-OH Vit D Total Latest Range: 30-100 ng/mL 54 Chol, Total Latest Range: <=199 mg/dL 192 HDL Latest Range: >=40 mg/dL 37 (L) Chol/HDL Ratio No range found 5.2 LDL Chol Direct Latest Range: <=99 mg/dL 114 (H) TSH Latest Range: 0.27-4.20 mcIU/mL 1.03 U Creatinine No range found 127 U Ran Malb Calc No range found 4 U Ran Malb Conc No range found 5.2 documented in this encounter Progress Notes * Rodrigo Conteh MD - 03/30/2013 1:51 PM EDT Endocrine Clinic Name: Reid Medrano : 1965 Date: 03/30/2013 PCP: LINDA GALEANO MD Provided by: Rodrigo Conteh MD Reason for visit: Follow-up diabetes Diabetes treatment regimen: victoza 1.8 mcg sc qd further (stopped insulin since 03/04/13 which is amazing since he used to take 70/30 90u bid before!) FSBG: average 150 over the past 2 weeks, ranging between 120-180 mg/dl Most recent HA1c: 9.5% on 02/24/13 before we switched to victoza Hypoglycemia during the interval time: none Diet: low fat/low carb diet Exercise: walking Complications: no changes during the interim. Prevention: same as last visit recently. He is doing amazingly well on victoza with better BG control, off insulin in 5-6 days and lost wt 10 lbs over a month. He tolerated vitcza 1.8 mcg qc qd without significant GI side effects. Denies any changes in vision, no CP, SOB, GI issues, leg swelling or foot ulcer. ROS: Please see HPI, all others negative Patient Active Problem List Diagnoses Code ??? CIS - Acute non-ST segment elevation myocardial infarction T999.0 ??? CIS - Depression T999.0 ??? CIS - Diabetes mellitus type II T999.0 ??? CIS - Essential hypertension T999.0 ??? CIS - Gout T999.0 ??? CIS - Hyperlipidemia T999.0 Current Outpatient Prescriptions on File Prior to Visit Medication Sig Dispense Refill ??? Blood Sugar Diagnostic (ONE TOUCH ULTRA TEST) test strip 1 each by Other route 4 times daily. Use as instructed 400 each 3 ??? Liraglutide (VICTOZA 3-GARTH) 0.6 mg/0.1 mL (18 mg/3 mL) PnIj Inject 1.8 mg subcutaneously daily.1 month = 3 pens 3 Pen 11 ??? Insulin [place], Disposable, (BD INSULIN PEN NEEDLE UF MINI) [...] daily (before meals). 100 each 11 ??? allopurinol (ZYLOPRIM) 300 mg tablet ??? lisinopril (PRINIVIL;ZESTRIL) 10 mg tablet ??? aspirin 325 mg EC tablet ??? FLUoxetine (PROZAC) 20 mg tablet ??? pravastatin (PRAVACHOL) 40 mg tablet ??? DISCONTD: insulin aspart protamine-insulin aspart 70/30 (NOVOLOG MIX 70-30) 100 unit/mL (70-30)injection Inject 40 Units subcutaneously 2 times daily (before meals). 50 mL 11 ??? glucagon, human recombinant, 1 mg/mL [...] Onset ??? Diabetes Brother Physical exam BP 119/80 Pulse 94 Wt 95.255 kg (210 lb) Appearance: mildly obese, pleasant, NAD, here with his son HEENT: PERRLA, EOMI, no retinopathy Neck: no goiter or lymphadenopathy Cardiac: normal S1, S2, no murmur Chest: CTA, no wheeze or crackle. Abdomen: benign, NT, no hepatosplenomegaly Ext: no pitting edema no foot ulcer Neuro: no weakness, normal reflexes sensation was intact Ref. Range 02/24/2013 13:09 02/24/2013 13:45 Hemoglobin A1C Latest Range: 4.3-6.1 % 9.5 (H) Est Avg Gluc No range found 226 25-OH Vit D Total Latest Range: 30-100 ng/mL 54 Chol, Total Latest Range: <=199 mg/dL 192 HDL Latest Range: >=40 mg/dL 37 (L) Chol/HDL Ratio No range found 5.2 LDL Chol Direct Latest Range: <=99 mg/dL 114 (H) TSH Latest Range: 0.27-4.20 mcIU/mL 1.03 U Creatinine No range found 127 U Ran Malb Calc No range found 4 U Ran Malb Conc No range found 5.2 Assessment: Diabetes Type 2- suboptimal but much better control after he started on victoza pen last month withBG in 100s throughout the day without hypo- or significant hyperglycemia, and was able to stop 70/30mix 90 ubid totally after 5-6 days. He also lost wt down 10 lbs in a month which is excellent. Complication Risk Status: no complications present. Also, treated for CAD s/p stent RCA in 01/07, HTN, Chol, gout on treatment with good control Plan: 1. Medication: Adjustment of diabetes treatment regimen: to cont victoza 1.8 mcg sc qd further (no more insulin since 03/04/13 which is amazing since he used 70/30 90u bid before!) To continue all other medications 2. Monitoring: [...] 4. Lab: Already checked lab last month as above. To check lab again next time for A1c 5. RTC: Next visit in 3 months. Will check HbA1c at the time (Quick draw lab before visit with us on the same day). If he cont to do well, then we will plan to see him only annually from next visit. We have reviewed our plan outlined above [...] 10:30 AM EST Office Visit [place] [address] Rodrigo Conteh MD [facility] [place] [address] documented as of this encounter Results * (ABNORMAL) Hemoglobin A1c (06/19/2013 1:57 PM EDT) [facility] Hemoglobin A1c 14.6(H) 4.3 - 6.1 % [facility] Comment: The [place] Diabetes Association (ADA) has stated that HbA1c [...] Diabetes Care 2013:36;suppl 1:S11-S66. Estimated Average Glucose 372 mg/dL [facility] Comment: eAG equivalents for HbA1c percentages: [...] into estimated average glucose values. ??Diabetes Care 2008:31(8):8369-9953. Blood specimen (specimen) 06/19/2013 1:57 PM EDT 06/19/2013 2:04 PM EDT Narrative Resulting Agency Comment Spec In Lab Rodrigo Conteh MD CHEMISTRY ORDERAB LES [facility] documented in this encounter Visit Diagnoses Diagnosis Type II or unspecified type diabetes mellitus without mention of complication, not stated as uncontrolled- Primary Type 2 diabetes mellitus with hyperglycemia, with long-term current use of insulin Vitamin D insufficiency Unspecified vitamin D deficiency Dyslipidemia Other and unspecified hyperlipidemia documented in this encounter Care Teams Woodwork Salvage Inspector Relationship Specialty Start Date End Date Linda Galeano MD [address] [place] [address] PCP - General 07/25/10 01/14/17 documented as of this encounter
--- OUTSIDE RECORDS SUMMARY | 2024-08-14 01:26 | XMS_ITS | Encounter Summary ---
Author Organization [facility] [place] [address] Care Team Providers Care Professor Sculpture Name Role Phone Linda Galeano MD Primary Care Provider [phone] Reason for Visit * Reason Onset Date Comments Medication Refill 03/03/2013 Encounter Details Date Type Department Care Team (Late st Contact Info) Description 03/03/2013 [place] [address] Rodrigo Conteh MD [facility] [place] [address] Type II or unspecified type diabetes mellitus without mention of complication, uncontrolled (Primary Dx) Social History Tobacco Use Types Packs/Day Years Used Date Smoking Tobacco: Never Sex and Gender Information Value Date Recorded Sex Assigned at Not on file Gender Identity Not on file Sexual Orientation Not on file documented as of this encounter Miscellaneous Notes * Telephone Encounter - Kathy Miller LPN - 03/03/2013 10:04 AM EDT Per is using One touch ultra Mini * Telephone Encounter - Kathy Miller LPN - 03/03/2013 9:59 AM EDT Returning call to Rx needed for glucose test strips but is now unsure as to which glucometer patient is using. Will call patient and then let me know documented in this encounter Plan of Treatment Upcoming Encounters Date Type Department Care Team (Late st Contact Info) Description 08/18/2024 10:30 AM EST Office [place] [address] Rodrigo Conteh MD [facility] [place] [address] documented as of this encounter Visit Diagnoses Diagnosis Type II or unspecified type diabetes mellitus without mention of complication, uncontrolled- Primary Type 2 diabetes mellitus with hyperglycemia, with long-term current use of insulin Vitamin D insufficiency Unspecified vitamin D deficiency Dyslipidemia Other and unspecified hyperlipidemia documented in this encounter Care Teams Professor Sculpture Relationship Specialty Start Date End Date Linda Galeano MD [address] [place] [address] PCP - General 07/25/10 01/14/17 documented as of this encounter
--- OUTSIDE RECORDS SUMMARY | 2024-08-14 01:26 | XMS_ITS | Encounter Summary ---
Author Organization [facility] Address [facility] [place] [address] Care Team Providers Care System Auditor Name Role Phone Linda Galeano MD Primary Care Provider [phone] Reason for Visit * Auth/Cert Specialty Diagnoses / Procedures Referred By Contac t Referred To Contact Diagnoses ulnar nerve neuropathy Procedures PRO REVISE ULNAR NERVE AT ELBOW NEUROPLASTY &/OR TRANSPOSITION, ULNAR NERVE AT ELBOW Referral ID Status Reason Start Date Expiration Date Visits Re quested Visits Authorized [id number] 1 1 Encounter Details Date Type Department Care Team (Late st Contact Info) Description 01/20/2016 12:59 PM EDT - 01/20/2016 2:57 PM EDT [place] [id number] Galdino Covington MD [facility] [place] [address] NEUROPLASTY &/OR TRANSPOSITION, ULNAR NERVE AT ELBOW [...] Sign Reading Time Taken Comments Blood Pressure 106/75 01/20/2016 11:50 AM EDT Pulse 71 01/20/2016 11:50 AM EDT Temperature 36.5 ??C (97.7 ??F) 01/20/2016 1 1:50 AM EDT Respiratory Rate 16 01/20/2016 11:5 0 AM EDT Oxygen Saturation 96% 01/20/2016 11: 50 AM EDT Inhaled Oxygen Concentration - - Weight 86.6 kg (190 lb 14.4 oz) 016 11:54 AM EDT Height - - Body Mass Index 28.19 11/28/2015 1:20 PM EDT documented in this encounter Discharge Instructions * Discharge Instructions* Anita Umanzor RN - 01/20/2016 4:39 PM EDT POST ANESTHESIA INSTRUCTIONS Go home, rest, use [...] which usually goes away in 12-24 hours. Narcotic bowel instructions 1. Drink plenty of fluid 2. Take with food or milk to help prevent nausea/vomiting 3. Get extra fiber in your diet 4. May need over the counter stool softner (colace 100mg twice per day) 5. If no bowel movement within 3 days, you may need to take a laxative * Patient Instructions* Shira Jacob MD - 01/20/2016 4:02 PM EDT Hand Discharge Instructions Keep splint on and dry at all times until your follow-up appointment. For fingers not included in the splint: OK to move your fingers. Keep hand elevated at all times until your follow-up appointment. Take Ibuprofen or Aleve around the clock for pain relief. Take narcotic pain medication as needed for breakthrough pain. Call our office if: ??? Fingers in splint are white, numb or cold. ??? You have signs of infection o A temperature over 100.4 F. o Redness of the incision lines that is beginning to spread away from the incision. o Yellow pus-like or foul smelling drainage from the incision or drain site. o Increase pain/discomfort that is not relieved by your pain medication. To make an appointment or for questions about scheduling, please contact our administrative officesat [phone] For clinical questions, please call our nurses at [phone] Both offices are open Saturday thru Saturday 8a - 5p. With emergencies after hours, call the hospital gravel machine operator at [phone] and ask for the Plastic Surgery Resident computer operations technician. documented in this encounter Medications at Time of Discharge Medication Sig Dispensed Refills Start Date End Date multivitamin (THERAGRAN) Tablet Take 1 tablet by [...] every 4 hours as needed for Pain. 25 tablet 01/20/2016 01/24/2016 liraglutide (VICTOZA) 0.6 mg/0.1 mL (18 mg/3 mL) Pen Injector Inject 0.6 mg subcutaneously daily. For one week. 1.2 mg daily for one week. Then 1.8 mg daily 9 Syringe 3 10/12/2015 03/07/2016 insulin needles, disposable, 31 gauge x 5/16 Needle 09/09/2015 02/07/2017 gabapentin (NEURONTIN) 300 mg Capsule Take 1,800 mg by mouth daily. 05/04/2015 04/03/2016 isosorbide mononitrate (IMDUR) 30 mg Tablet Sustained Release 24 hr Take by mouth daily. 04/12/2015 016 meTOPROLOL succinate (TOPROL-XL) 25 mg Tablet Sustained Release 24 hr Take 25 mg by mouth daily. 05/23/2015 09/08/2019 insulin aspart (NOVOLOG) Insulin Pen Inject 2-20 Units subcutaneously 4 times daily as needed for High Blood Sugar (f high BG>200). 45 mL 3 06/10/2015 04/03/2016 Insulin [place], Disposable, (BD INSULIN PEN NEEDLE UF MINI) [...] 04/22/2009 02/07/2017 documented as of this encounter Progress Notes * Anita Umanzor RN - 01/20/2016 5:44 PM EDT 1725-Patient alert and oriented, vital signs stable. Reviewed discharge instructions; patient and verbalized understanding. Copy of instruction sheet with contact numbers for questions/concerns with . Made note on instruction sheet when pt got oxycodone. Pt reports that he takes gabapentin at home, 300mg at a time. Given 300mg gabapentin at this time. Ice put in place to right elbow. documented in this encounter H&P Notes * Shira Jacob MD - 01/20/2016 12:34 PM EDT 24 hour interval history and physical exam: Isiah Medrano's condition unchanged since H&P originally performed Vitals: 01/20/16 1150 BP: 106/75 Pulse: 71 Resp: 16 Temp: 36.5 ??C (97.7 ??F) On ra nonlabored Symmetric chest movement Site marked Proceed to or for cubital tunnel release and muscular transposition. 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 Complications: None Fluids: 700 ml IV crystalloid Estimated Blood Loss: 5 ml Drains: None Disposition: awakened from anesthesia, extubated and taken to the recovery room in a stable condition, having suffered no apparent untoward event. Condition: doing well without problems (Please see the Surgical Encounter Summary for any Implant and Specimen details pertinent to this patient.) Procedure - patient was brought to the OR. Time out was done. Patient was given general anesthesia.Tourniquet was applied. Right Arm was prepped and draped in a sterile manner. The arm with exsanguinated and the tourniquet was applied to 250 mm hg pressure. The prior incision was extended both proximally and distally. The ulnar nerve was identified and freed up under magnification. The medial antebrachial nerve was identified and protected. FAcial flaps were elevated in a step carrillo manner from the FCU and pronatorteres.The fascial bands were removed both proximally and distally to the elbow. The arcade of struthers was released. The ulnar as it entered the FCU was released. A trough was created in the FCU andpronator teres. The nerve was not under any tension. The fascia over the FCU and pronator teres wasre-attached with 3-0 vicryl . The tourniquet was taken down after one hour and bleeding was stopped. Deep layer was closed with 3-0 vicryl and the skin was closed with 4-0 nylon. The patient was placed in a posterior plaster splint. Attestation: Case Date: 01/20/2016 I was present and I participated during the entire procedure except for the opening and closing which overlapped with the opening or closing of another case. The overlapping portions were non-hayward portions and I was immediately available GALDINO COVINGTON MD 01/23/2016 * Brief Op Note - Shira Jacob MD - 01/20/2016 4:03 PM EDT Brief Operative Note Patient Name: Isiah Medrano : [id number] MR#: [id number] Case Date: 01/20/2016 Surgeon: Surgeon(s) and Role: * Galdino Covington MD - Primary * Shira Jacob MD - Resident-Surgeon Chief Preoperative diagnosis: ulnar nerve neuropathy Postoperative diagnosis: ulnar nerve neuropathy Procedure(s): NEUROPLASTY &/OR TRANSPOSITION, ULNAR NERVE AT ELBOW SPLINT APPLICATION, LONG ARM Anesthesia: Anesthesia type not filed in the log. Complications: None Fluids: 700 ml IV crystalloid Estimated Blood Loss: 5 ml Drains: None Disposition: awakened from anesthesia, extubated and taken to the recovery room in a stable condition, having suffered no apparent untoward event. Condition: doing well without problems (Please see the Surgical Encounter Summary for any Implant and Specimen details pertinent to this patient.) documented in this encounter Plan of Treatment Upcoming Encounters Date Type Department Care Team (Late st Contact Info) Description 08/18/2024 10:30 AM EST Office Visit [place] [address] Rodrigo Conteh MD [facility] [place] [address] documented as of this encounter Procedures Procedure Name Priority Date/Time Associated Diagnosis Comments POCT GLUCOSE Routine 01/20/2016 4:54 PM EDT POCT GLUCOSE Routine 01/20/2016 4:07 PM EDT POCT GLUCOSE Routine 01/20/2016 2:31 PM EDT SPLINT APPLICATION, LONG ARM (WRVU 0.8) 01/20/2016 2:01 PM EDT ulnar nerve neuropathy NEUROPLASTY &/OR TRANSPOSITION, ULNAR NERVE AT ELBOW (WRVU 7.26) 01/20/2016 2:01 PM EDT ulnar nerve neuropathy POCT GLUCOSE Routine 01/20/2016 1:48 PM EDT POCT GLUCOSE Routine 01/20/2016 11:51 AM EDT SPLINT APPLICATION, LONG ARM Routine 01/20/2016 8:50 AM EDT documented in this encounter Results * (ABNORMAL) POCT Glucose (01/20/2016 4:54 PM EDT) Glucose, POC 293(H) 65 - 199 mg/dL [facility] Comment: Supplemental ranges: <140 mg/dL before meals <180 mg/dL all other times of the day Blood specimen (specimen) 01/20/2016 4:54 PM EDT 01/20/2016 4:54 PM EDT Galdino Covington MD POINT OF CARE TEST O RDERABLES [facility] [place] [address] * (ABNORMAL) POCT Glucose (01/20/2016 4:07 PM EDT) Glucose, POC 320(H) 65 - 199 mg/dL [facility] Comment: Supplemental ranges: <140 mg/dL before meals <180 mg/dL all other times of the day Blood specimen (specimen) 01/20/2016 4:07 PM EDT 01/20/2016 4:07 PM EDT Galdino Covington MD POINT OF CARE TEST O RDERABLES Performing Organization Address City/[facility]/ZIP Co de Phone Number [facility] [place] [address] * (ABNORMAL) POCT Glucose (01/20/2016 2:31 PM EDT) Glucose, POC 290(H) 65 - 199 mg/dL [facility] Comment: Supplemental ranges: <140 mg/dL before meals <180 mg/dL all other times of the day Blood specimen (specimen) 01/20/2016 2:31 PM EDT 01/20/2016 2:31 PM EDT Galdino Covington MD POINT OF CARE TEST O RDERAMARIA DOLORES Performing Organization Address City/[facility]/ZIP Co de Phone Number [facility] [place] [address] * (ABNORMAL) POCT Glucose (01/20/2016 1:48 PM EDT) Glucose, POC 340(H) 65 - 199 mg/dL [facility] Comment: Supplemental ranges: <140 mg/dL before meals <180 mg/dL all other times of the day Blood specimen (specimen) 01/20/2016 1:48 PM EDT 01/20/2016 1:48 PM EDT Galdino Covington MD POINT OF CARE TEST O RDERAMARIA DOLORES [facility] [place] [address] * (ABNORMAL) POCT Glucose (01/20/2016 11:51 AM EDT) Glucose, POC 359(H) 65 - 199 mg/dL [facility] Comment: Supplemental ranges: <140 mg/dL before meals <180 mg/dL all other times of the day Blood specimen (specimen) 01/20/2016 11:51 AM EDT 01/20/2016 11:51 AM EDT Galdino Covington MD POINT OF CARE TEST O RDERABLES [facility] [place] [address] documented in this encounter Visit Diagnoses Not on filedocumented in this encounter Administered Medications Inactive Administered Medications - up to 3 most recent administrations Medication Order MAR Action Action Date Dose Rate Site BUpivacaine (PF) (MARCAINE) 0.25 % (2.5 mg/mL) injection ONCE PRN, Starting on Sat01/20/16 at 1545, Until Sat01/20/16 at 2110, Intra-Operative (Intra-Procedure), Routine Given 01/20/2016 3:45 PM EDT 20 mg fentaNYL (PF) 50 mcg/mL 2mL syringe 25 mcg, Intravenous, EVERY 5 MIN PRN, Pain, for 1-4 pain score, Starting on Sat01/20/16 at 1606, Until Sat01/20/16 at 1909, for 1-4 pain score Hold for respiratory rate less than 10 per minute. Maximum dose: 250 mcg over one hour., PACU Recovery Given 01/20/2016 7:01 PM EDT 25 mcg Given 01/20/2016 6:21 PM EDT 25 mcg Given 01/20/2016 6:06 PM EDT 25 mcg gabapentin (NEURONTIN) capsule 300 mg 300 mg, Oral, ONCE, 1 dose, On Sat01/20/16 at 1800, PACU Recovery, Routine Given 01/20/2016 5:35 PM EDT 300 mg ibuprofen (ADVIL;MOTRIN) tablet 800 mg 800 mg, Oral, EVERY 6 HOURS PRN, 1 dose, Starting on Sat01/20/16 at 1750, Until Sat01/20/16 at 1810, Pain, Administer orally with milk or food to minimize GI irritation. Maximum dose of 3200 mg from all sources in 24 hours, PACU Recovery, Routine Given 01/20/2016 6:10 PM EDT 800 mg insulin regular human VIAL injection 8 Units 8 Units, Subcutaneous, ONCE, 1 dose, On Sat01/20/16 at 1315, Day of Surgery (Day of Procedure), Routine Given 01/20/2016 1:10 PM EDT 8 Units insulin regular human VIAL injection 8 Units 8 Units, Subcutaneous, ONCE, 1 dose, On Sat01/20/16 at 1630, Day of Surgery (Day of Procedure), Routine Given 01/20/2016 4:22 PM EDT 8 Units Left Arm ondansetron (ZOFRAN) injection 4 mg 4 mg, Intravenous, EVERY 30 MIN PRN, Starting on Sat01/20/16 at 1606, Until Sat01/20/16 at 1909, Nausea, May repeat 4 mg once in 30 minutes. If multiple antiemetics ordered, use ondansetron first and if ineffective use prochlorperazine second and if ineffective use promethazine, PACU Recovery Given 01/20/2016 6:34 PM EDT 4 mg Given 01/20/2016 3:50 PM EDT 8 mg oxyCODONE (ROXICODONE) immediate release tablet 5-10 mg 5-10 mg, Oral, EVERY 6 HOURS PRN, Starting on Sat01/20/16 at 1632, Until Sat01/20/16 at 2110, Pain, Recovery (Recovery-Hospital Unit), Routine Given 01/20/2016 6:12 PM EDT 5 mg Given 01/20/2016 4:37 PM EDT 5 mg documented in this encounter Active and Recently Administered Medications Times are shown in EDT. Scheduled Medication Order 01/18/2016 2016 01/20/2016 gabapentin (NEURONTIN) capsule 300 mg (COMPLETED) 300 mg, Oral, ONCE, 1 dose, On Sat01/20/16 at 1800, PACU Recovery, Routine 1735 (Given - Provid er: Anita Umanzor, MANUEL) insulin regular human VIAL injection 8 Units (COMPLETED) 8 Units, Subcutaneous, ONCE, 1 dose, On Sat01/20/16 at 1315, Day of Surgery (Day of Procedure), Routine 1310 (Given - Provid er: Eliana Bower RN - Comment: Given in Left deltoid sq injection) insulin regular human VIAL injection 8 Units (COMPLETED) 8 Units, Subcutaneous, ONCE, 1 dose, On Sat01/20/16 at 1630, Day of Surgery (Day of Procedure), Routine 1622 (Given - Provid er: Anita Umanzor RN) PRN Medication Order 01/18/2016 2016 01/20/2016 BUpivacaine (PF) (MARCAINE) 0.25 % (2.5 mg/mL) injection (CANCELED) ONCE PRN, Starting on Sat01/20/16 at 1545, Until Sat01/20/16 at 2110, Intra-Operative (Intra-Procedure), Routine 1545 (Given - Provid er: Galdino Covington MD) fentaNYL (PF) 50 mcg/mL 2mL syringe (CANCELED)(Linked Group 1) 25 mcg, Intravenous, EVERY 5 MIN PRN, Pain, for 1-4 pain score, Starting on Sat01/20/16 at 1606, Until Sat01/20/16 at 1909, for 1-4 pain score Hold for respiratory rate less than 10 per minute. Maximum dose: 250 mcg over one hour., PACU Recovery 1625 (Given - Provid er: Anita Umanzor RN)1630 (Given - Provider: Anita Umanzor RN)1641 (Given - Provider: Anita Umanzor RN)1806 (Given - Provider: Jenifer Ortiz RN)1821 (Given - Provider: Jenifer Ortiz RN)1901 (Given - Provider: Jenifer Ortiz RN) ibuprofen (ADVIL;MOTRIN) tablet 800 mg (COMPLETED) 800 mg, Oral, EVERY 6 HOURS PRN, 1 dose, Starting on Sat01/20/16 at 1750, Until Sat01/20/16 at 1810, Pain, Administer orally with milk or food to minimize GI irritation. Maximum dose of 3200 mg from all sources in 24 hours, PACU Recovery, Routine 1810 (Given - Provid er: Jenifer Ortiz RN) ondansetron (ZOFRAN) injection 4 mg (CANCELED) 4 mg, Intravenous, EVERY 30 MIN PRN, Starting on Sat01/20/16 at 1606, Until Sat01/20/16 at 1909, Nausea, May repeat 4 mg once in 30 minutes. If multiple antiemetics ordered, use ondansetron first and if ineffective use prochlorperazine second and if ineffective use promethazine, PACU Recovery 1550 (Given - Provid er: Noel Haywood CRNA)1834 (Given - Provider: Jenifer Ortiz, RN) oxyCODONE (ROXICODONE) immediate release tablet 5-10 mg 5-10 mg, Oral, EVERY 6 HOURS PRN, Starting on Sat01/20/16 at 1632, Until Sat01/20/16 at 2110, Pain, Recovery (Recovery-Hospital Unit), Routine 1637 (Given - Provid er: Anita Umanzor RN)181 (Given - Provider: Jenifer Ortiz, MANUEL) Linked Groups Order Group 1: fentaNYL (PF) 50 mcg/mL 2mL syringe (CANCELED)Jump to med 25 mcg, Intravenous, EVERY 5 MIN PRN, Pain, for 1-4 pain score, Starting on Sat01/20/16 at 1606, Until Sat01/20/16 at 1909, for 1-4 pain score Hold for respiratory rate less than 10 per minute. Maximum dose: 250 mcg over one hour., PACU Recovery Or fentaNYL (PF) 50 mcg/mL 2mL syringe (CANCELED) 50 mcg, Intravenous, EVERY 5 MIN PRN, Pain, for 5-10 pain score, Starting on Sat01/20/16 at 1606, Until Sat01/20/16 at 1909, for 5-10 pain score Hold for respiratory rate less than 10 per minute. Maximum dose: 250 mcg over one hour., PACU Recovery documented in this encounter Care Teams System Auditor Relationship Specialty Start Date End Date Linda Galeano MD [address] [place] [address] PCP - General 07/25/10 01/14/17 documented as of this encounter
--- OUTSIDE RECORDS SUMMARY | 2024-08-14 01:26 | XMS_ITS | Encounter Summary ---
Author Organization [facility] Address [facility] [place] [address] Care Team Providers Care Energy Attorney Name Role Phone Linda Galeano MD Primary Care Provider [phone] Encounter Details Date Type Department Care Team (Late st Contact Info) Description 01/11/2015 - 01/11/2015 11:59 PM EDT Hospital Encounter Radiology [facility] [place] [id number] [facility] Disposition: Home Social History Tobacco Use Types Packs/Day Years Used Date Smoking Tobacco: Never Sex and Gender Information Value Date Recorded Sex Assigned at Not on file Gender Identity Not on file Sexual Orientation Not on file documented as of this encounter Medications at Time of Discharge Medication Sig Dispensed Refills Start Date End Date Blood Sugar Diagnostic (ONE TOUCH ULTRA TEST) test stripIndications:Type II or unspecified type diabetes mellitus without mention of complication, uncontrolled 1 each by Other route 4 times daily. Use as instructed 400 each 3 03/03/2013 Insulin Syringe-Needle U-100 (BD INSULIN SYRINGE ULT-FINE II) 1 mL 31 x 01/15 Syrg 1 each by Misc.(Non-Drug; Combo Route) route 2 times daily (before meals). 100 each 11 11/04/2012 Insulin Lispro (HUMALOG KWIKPEN) InPn Inject 0.02-0.2 mLs subcutaneously 4 times daily as needed (sliding scale if BG>150 ). 5 pens free with coupon 15 mL 0 06/20/2013 2016 Liraglutide (VICTOZA 3-GARTH) 0.6 mg/0.1 mL (18 mg/3 mL) PnIj Inject 1.8 mg subcutaneously daily. 1 month = 3 pens 3 Pen 11 02/24/2013 09/15/2015 Insulin [place], Disposable, (BD INSULIN PEN NEEDLE UF MINI) [...] 10:30 AM EST Office [place] [address] Rodrigo Conteh MD [facility] [place] [address] documented as of this encounter Procedures Procedure Name Priority Date/Time Associated Diagnosis Comments FILM LIBRARY STORAGE ONLY DX ELBOW Routine 01/11/2015 12:00 AM EDT Pain documented in this encounter Results * Film Library- Storage only DX Elbow (01/11/2015 12:00 AM EDT) Narrative [facility] - 11/21/2015 12:26 PM EDT See PACS for result report. Dr Anaya [facility] FILM LIBRARY ORD ERABLES DH [place], [place] documented in this encounter Visit Diagnoses Diagnosis Pain Generalized pain Type 2 diabetes mellitus with hyperglycemia, with long-term current use of insulin Vitamin D insufficiency Unspecified vitamin D deficiency Dyslipidemia Other and unspecified hyperlipidemia documented in this encounter Care Teams Energy Attorney Relationship Specialty Start Date End Date Linda Galeano MD [address] [place] [address] PCP - General 07/25/10 01/14/17 documented as of this encounter
--- OUTSIDE RECORDS SUMMARY | 2024-08-14 01:26 | XMS_ITS | Encounter Summary ---
Author Organization [facility] [place] [address] Care Team Providers Care Welder Gas Automatic Name Role Phone Linda Galeano MD Primary Care Provider [phone] Reason for Visit * Reason Comments Diabetes Encounter Details Date Type Department Care Team (Late st Contact Info) Description 06/19/2013 2:35 PM EDT Office [place] [phone] Rodrigo Conteh MD [facility] [place] [place] [address] Type II or unspecified type diabetes mellitus [...] Sign Reading Time Taken Comments Blood Pressure 108/65 06/19/2013 2:50 PM EDT Pulse 103 06/19/2013 2:50 PM EDT Temperature - - Respiratory Rate - - Oxygen Saturation - - Inhaled Oxygen Concentration - - Weight 87 kg (191 lb 12.8 oz) 06/19/2013 2:50 PM EDT Height - - Body Mass Index 30.96 11/04/2012 1:49 PM EST documented in this encounter Progress Notes * Rodrigo Conteh MD - 06/19/2013 2:50 PM EDT Endocrine Clinic Name: Isiah Medrano : 1965 Date: 06/19/2013 PCP: LINDA GALEANO MD Provided by: Rodrigo Conteh MD Reason for visit: Follow-up diabetes Diabetes treatment regimen: victoza 1.8 mcg sc qd and metformin 1000 mg bid(stopped insulin since 03/04/13 and used to take 70/30 90u bid before) FSBG: none after he lost the glucometer for 1-2 months. FSBG at clinic after lunch was very high at435 mg/dl Most recent HA1c: 14.6% today (was 9.5% on 02/24/13 before he stopped checking FSBG and lagging on DM Rx) Hypoglycemia during the interval time: none Diet: low fat/low carb diet Exercise: walking Complications: no changes during the interim. Prevention: same as last visit recently. He initially responded well to victoza with good BG in 100s in March but then stopped testing FSBG and has not resumed using insulin yet since he did not aware that his BG has been high. He lost wt 10lbs the 1st month after victoza without significant GI side effects. After that he lost another 9 lbs over the past 2-3 months due to uncontrolled diabetes (220 lbs to 210 lbs and now 191 lbs). He notes more fatigue and lagging on his DM care. Denies any changes in vision, no CP, [...] 3 pens 3 Pen 11 ??? Insulin [place], Disposable, (BD INSULIN PEN NEEDLE UF MINI) [...] tablet ??? pravastatin (PRAVACHOL) 40 mg tablet Allergies Allergen Reactions ??? Eptifibatide CIS - thrombocytopenia History Social History ??? Marital Status: Spouse Name: N/A Number of Children: N/A ??? Years of Education: N/A Social History Main Topics ??? Smoking status: Never Smoker ??? Smokeless tobacco: Not on file ??? Alcohol Use: Not on file ??? Drug Use: Not on file ??? Sexually Active: Not on file Other Topics Concern ??? Not on file Social History Narrative ??? No narrative on file FAMILY HISTORY Family History Problem Relation Age of Onset ??? Diabetes Brother Physical exam Wt 87 kg (191 lb 12.8 oz) Appearance: Obese, pleasant, NAD, here with his HEENT: PERRLA, EOMI, no retinopathy Neck: no goiter or lymphadenopathy Abdomen: benign, NT, ND Ext: no pitting edema no foot ulcer Neuro: no weakness, depressed reflexes Recent Results (from the past 72 hour(s)) HEMOGLOBIN A1C Component Value Range Hemoglobin A1C 14.6 (*) 4.3 - 6.1 % Est Avg Gluc 372 Assessment: Diabetes Type 2- severely uncontrolled and in glucotoxicity state with avg BG 372 per his A1c of 14.6% after he stopped taking care of his DM and has not checked FSBG for the past 1-2 months. He alsolost wt down with more fatigue from uncontrolled diabetes. Denies depression and simply lagging behind on DM care lately. He now understands why he feels tired lately and is willing to keep BG back under control again soon. Will give him a free glucometer today as he lost his meter over the past couple of months/ Complication Risk Status: no complications present. Also, treated for CAD s/p stent RCA in 01/07, HTN, Chol, gout on treatment Plan: 1. Medication: Adjustment of diabetes treatment regimen: to resume 70/30 mix insulin 90u bid as before and the first dose was given at clinic this afternoon He is allowed to titrate 70/30 mix insulin dose by 10 units if BG starts to get low <90. Target BG 90-180 range initially Once BG is stable at target, then he can resume victoza pen since it won;t work while his islet cells are stunning in glucotoxicty phase. To check FSBG more often tid ac &hs and ok to give Humalog kwickpen sliding scale p.r.n if BG>180 based on 1u:10BG ratio (180 5u, 200 10u, 250 15u, 300 20u, 350 25u, 400 30u, etc) To continue all other medications 2. [...] next visit. 4. Lab: Already checked lab today as above 5. RTC: Next visit in 4-6 weeks to make sure that his DM is under control again soon. Will check HbA1c at the time for trend to make sure that it is trending down quickly at least 1% per month (Quickdraw lab before visit with us on the same day). If he cont to do well, then we will plan to see himnext spring. We have reviewed our plan outlined above [...] 10:30 AM EST Office [place] [address] Rodrigo Conteh MD [facility] [place] [place] [address] documented as of this encounter Procedures Procedure Name Priority Date/Time Associated Diagnosis Comments HEMOGLOBIN A1C Routine 06/19/2013 1:57 PM EDT Type II or unspecified type diabetes mellitus without mention of complication, not stated as uncontrolled documented in this encounter Results * (ABNORMAL) Hemoglobin A1c (06/19/2013 1:57 PM EDT) Hemoglobin A1c 14.6(H) 4.3 - 6.1 % [facility] Comment: The [place] Diabetes Association (ADA) has stated that HbA1c [...] 2013:36;suppl 1:S11-S66. Estimated Average Glucose 372 mg/dL [facility] Comment: eAG equivalents for HbA1c percentages: [...] into estimated average glucose values. ??Diabetes Care 2008:31(8):7920-6013. Blood specimen (specimen) 06/19/2013 1:57 PM EDT 06/19/2013 2:04 PM EDT Narrative Resulting Agency Comment Spec In Lab Rodrigo Conteh MD CHEMISTRY ORDERAB LES Performing Organization Address City/State/[facility] [place] Phone Number [facility] documented in this encounter Visit Diagnoses Diagnosis Type II or unspecified type diabetes mellitus without mention of complication, not stated as uncontrolled- Primary Type 2 diabetes mellitus with hyperglycemia, with long-term current use of insulin Vitamin D insufficiency Unspecified vitamin D deficiency Dyslipidemia Other and unspecified hyperlipidemia documented in this encounter Care Teams Welder Gas Automatic Relationship Specialty Start Date End Date Linda Galeano MD [address] [place] [address] PCP - General 07/25/10 01/14/17 documented as of this encounter
--- OUTSIDE RECORDS SUMMARY | 2024-08-14 01:26 | XMS_ITS | Encounter Summary ---
[place] [address] Care Team Providers Care Cost Accounting Clerk Name Role Phone Linda Galeano MD Primary Care Provider [phone] Encounter Details Date Type Department Care Team (Late st Contact Info) Description 01/23/2016 Telephone [place] [phone] Kathy Miller LPN Social History Tobacco Use [...] Telephone Encounter - Kathy Miller LPN - 01/23/2016 4:27 PM EDT Called at which time she was read message from Dr Cnoteh. Rx forward to Dr Conteh to be approved. * Telephone Encounter - Rodrigo Conteh MD - 01/23/2016 12:51 PM EDT Ok to switch victoza to Trulicity full dose weekly as planned. RODRIGO CONTEH MD * Telephone Encounter - Kathy Miller LPN - 01/23/2016 10:57 AM EDT calls patient had surgery on 01/20/16.Has been taking Victoza regularly for ~ one month. Believes that they may now be able to afford Trulicity is asking for Rx for Trulicity to go to [place] [facility]. Forward to Dr Conteh for okay on Rx.. documented in this encounter Plan of Treatment Upcoming Encounters Date Type Department Care Team (Late st Contact Info) Description 08/18/2024 10:30 AM EST Office [place] [address] Rodrigo Conteh MD [facility] ENDOCR[facility]Y [place] [phone] documented as of this encounter Visit Diagnoses Not on filedocumented in this encounter Care Teams Cost Accounting Clerk Relationship Specialty Start Date End Date Linda Galeano MD [address] [place] [address] PCP - General 07/25/10 01/14/17 documented as of this encounter
--- OUTSIDE RECORDS SUMMARY | 2024-08-14 01:26 | XMS_ITS | Encounter Summary ---
Author Organization Formerly [facility] [place] [address] Care Team Providers Care Quality Assurance Representative Name Role Phone Linda Galeano MD Primary Care Provider Encounter Details Date Type Department Care Team (Latest Contact Info) Description 09/15/2015 12:30 PM EST Laboratory Appointment Lab [address] [place] [phone] Diabetes mellitus type 2, uncontrolled Social History [...] 10:30 AM EST Office [place] [address] Rodrigo Conteh MD [facility] [place] [address] documented as of this encounter Procedures Procedure Name Priority Date/Time Associated Diagnosis Comments HEMOGLOBIN A1C Routine 09/15/2015 12:06 PM EST Diabetes mellitus type 2, uncontrolled documented in this encounter Results * (ABNORMAL) Hemoglobin A1c (09/15/2015 12:06 PM EST) Hemoglobin A1c 11.5(H) 4.3 - 5.6 % [facility] Comment: Reference Range: 4.3 - 5.6% 5.7 - 6.4% - Increased Risk of Developing Diabetes Mellitus 6.5% - Consistent with diagnosis of Diabetes Mellitus In the absence of hyperglycemia (i.e. plasma glucose > 200 mg/dL) or classic symptoms of hyperglycemia a repeat measurement of HbA1c should be performed on a separate sample to confirm the diagnosis. Diagnosis and Classification of Diabetes Mellitus, Diabetes Care 2013; 36: Suppl. 1, S67-87 Estimated Average Glucose 283 mg/dL [facility] Comment: eAG equivalents for HbA1c percentages: HbA1c(%) ?eAG(mg/dL) 6.0 ?126 6.5 ?140 7.0 ?154 7.5 ?169 8.0 ?183 8.5 ?197 9.0 ?212 9.5 ?226 10.0 ? 240 Limitations: The eAG calculation has not been validated on women, individuals below 18 years old and above 70 years old, and individuals with hemoglobinopathies. Additional resources are available on the ADA website: [email or web address] Healthcarel.[email or web address] Tony WALTERS, Harmeet Glez, Jj R, et al. ??Translating the A1C assay into estimated average glucose values. ??Diabetes Care 2008:31(8):4851-1704. Blood specimen (specimen) 09/15/2015 12:06 PM EST 09/15/2015 12:46 PM EST Narrative Resulting Agency Comment Spec In Lab Rodrigo Conteh MD CHEMISTRY ORDERAB LES [facility]ERNER MILLENNIUM documented in this encounter Visit Diagnoses Diagnosis Diabetes mellitus type 2, uncontrolled Type II or unspecified type diabetes mellitus without mention of complication, uncontrolled Type 2 diabetes mellitus with hyperglycemia, with long-term current use of insulin Vitamin D insufficiency Unspecified vitamin D deficiency Dyslipidemia Other and unspecified hyperlipidemia documented in this encounter Care Teams Quality Assurance Representative Relationship Specialty Start Date End Date Linda Galeano MD [address] [place] [address] PCP - General 07/25/10 01/14/17 documented as of this encounter
--- OUTSIDE RECORDS SUMMARY | 2024-08-14 01:26 | XMS_ITS | Encounter Summary ---
Author Organization [facility] [place] [address] Care Team Providers Care Frame Stylist Name Role Phone Linda Galeano MD Primary Care Provider [phone] Reason for Visit * Reason Onset Date Comments Medication Refill 06/20/2013 Encounter Details Date Type Department Care Team (Late st Contact Info) Description 06/20/2013 Refill [place] [address] Silvino Ba, [facility] [place] [address] Social History Tobacco Use Types Packs/Day Years Used Date Smoking Tobacco: Never Sex and Gender Information Value Date Recorded Sex Assigned at Not on file Gender Identity Not on file Sexual Orientation Not on file documented as of this encounter Plan of Treatment Upcoming Encounters Date Type Department Care Team (Late st Contact Info) Description 08/18/2024 10:30 AM EST Office Visit [place] [address] Rodrigo Conteh MD [facility] [place] [address] documented as of this encounter Visit Diagnoses Not on filedocumented in this encounter Care Teams Frame Stylist Relationship Specialty Start Date End Date Linda Galeano MD [address] [place] [address] PCP - General 07/25/10 01/14/17 documented as of this encounter
--- OUTSIDE RECORDS SUMMARY | 2024-08-14 01:26 | XMS_ITS | Encounter Summary ---
[place] [address] Care Team Providers Care Greenhouse Superintendent Name Role Phone Linda Galeano MD Primary Care Provider [phone] Reason for Visit * Auth/Cert Specialty Diagnoses / Procedures Referred By Contac t Referred To Contact Diagnoses ulnar nerve neuropathy Procedures PRO REVISE ULNAR NERVE AT ELBOW NEUROPLASTY &/OR TRANSPOSITION, ULNAR NERVE AT ELBOW Referral ID Status Reason Start Date Expiration Date Visits Re quested Visits Authorized [id number] 1 1 Encounter Details Date Type Department Care Team (Late st Contact Info) Description 01/20/2016 2:01 PM EDT Anesthesia Event [place] [phone] Mari Burt MD [facility] [place] [address] Noel Haywood CRNA [facility] [place] [address] Anesthesia Record Procedure Summary Procedure Name Responsible Anesthesiologist Anesthesia Start Time Anesthesia Stop Time NEUROPLASTY &/OR TRANSPOSITION, ULNAR NERVE AT ELBOW (WRVU 7.26) (Right: Elbow) Mari Burt MD 01/20/16 1401 01/20/16 1610 Events Date Time Event Comment 01/20/2016 1258 1401 AN Verify 1401 Start 1404 An Start Data 1404 An Induction 1407 An Intubation 1414 Anesthesia Ready 1510 Break/Relief In C Javed 1533 Break/Relief Out 1559 Extubation/LMA Out 1601 an stop data 1610 Recovery or ICU Handoff Magaly ent care was transferred to the destination unit staff after review of the patient's medical history, current anesthetic/surgical status and plan, according to the Provider Handoff Checklist. 1610 Stop Meds Name Total Propofol 200 mg fentaNYL 100 mcg Midazolam 2 mg IV Lidocaine 100 mg ePHEDrine 15 mg ceFAZolin 2 g Insulin Regular Human 5 Units ondansetron (ZOFRAN) injection 4 mg 8 mg Lactated Ringers 500 mL * Agents Name O2 Air N2O Sevoflurane (et) * Blood No blood administrations on file. Lines, Drains, and Airways Type Details Placement Removal Incision 01/20/16; arm; 04/30/22 (LDA cleanup utility RA#[id number]); 1715 (LDA cleanup utility RA#[id number]) 01/20/16 0000 by Lizzie Jones RN 04/30/22 1715 by Criselda Sofia (RETIRED) Peripheral IV Line - Single Lumen 01/20/16; 1213; basilic vein left (medial side of arm); rbao-irh-jesaxs catheter system; 18 gauge; Sarbjit JACKSON; intradermal injection; 0; 01/20/16; 1908 01/20/16 1213 by Ira Jerome RN 01/20/16 1908 by Jenifer Ortiz, RN Supraglottic Mask Ventilation: No t Attempted (0); LMA Type: iGel; LMA Size: 4; Inserted by: Yobany; Removal Date: 01/20/16; Removal Time: 1559 01/20/16 1404 by Noel Haywood, DURALUMIN MECHANIC 01/20/16 1559 by Mari Burt documented in this encounter Social History Tobacco [...] OR Notes * Anesthesia Postprocedure Evaluation - Mari Burt - 01/20/2016 5:33 PM EDT [facility] of Anesthesiology Post-procedure Note Patient: Iisah Medrano Procedure Summary Date Anesthesia Start Anesthesia Stop Room / Location 01/20/16 1401 1610 [facility] OR [facility] MAIN OR Procedure Diagnosis Surgeon Responsible Provider NEUROPLASTY &/OR TRANSPOSITION, ULNAR NERVE AT ELBOW (Right Elbow); SPLINT APPLICATION, LONG ARM (Right Arm) (ulnar nerve neuropathy) Galdino Wood MD Clark, Cantwell, MD All Anesthesia Providers: Anesthesiologist: Mari Burt MD DURALUMIN MECHANIC: Noel Haywood CRNA Last (1hr) Vitals: BP 107/73 (01/20/16 1715) Temp Pulse Resp 16 (01/20/161714) SpO2 93 % (01/20/161714) Patient Location: PACU/[facility] Level of Consciousness: Awake and Alert Pain Management: Pain Being Addressed PONV: None Cardiovascular Status: At Baseline and Hemodynamically Stable Respiratory Status: At Baseline and Room Air Postoperative Fluid Status: Intravascular EUvolemia Possible Anesthetic Complications: NONE apparent at time of evaluation Final Primary Anesthesia Type: General (The anesthetic type performed was the same as planned.) Comments: Gabapentin dose ordered for pain. * Anesthesia Preprocedure Evaluation - Mari Burt - 2016 6:14 PM EDT Pre-Anesthesia Evaluation for: Isiah Medrano a 50 y.o. male. Procedure(s): NEUROPLASTY &/OR TRANSPOSITION, ULNAR [...] Hand operations x2 Procedure Date: Unknown History Substance Use Topics ??? Smoking status: Never Smoker ??? Smokeless tobacco: Former User Quit date: 01/09/1995 ??? Alcohol use: No History Drug Use No Allergies Allergen Reactions ??? Eptifibatide CIS - thrombocytopenia Medications: MAR and/or home medications have been reviewed. Physical Exam: There were no vitals filed for this visit. There is no height or weight on file to calculate BMI. Airway Assessment: Mallampati: I TM distance: >3 FB Neck ROM: full Cardiovascular Assessment: cardiovascular exam normal Pulmonary Assessment: pulmonary exam normal Dental Assessment: Misc Assessment: IV access: Peripheral line Anesthesia Plan: ASA 3 General, with a(n) intravenous induction 50yoM with ulnar neuropathy s/p injury for nerve release/transposition. PMH includes type 2 diabetes (insulin dependent). HTN (metoprolol, SHARYN-I), gout, and hyperlipidemia. H/o NSTEMI in 2007. No need for cardiac intervention since, good exercise tolerance (brisk walking, occ tread mill). No GERD. FS glucose 359 - will administer Insulin and follow FS. Plan: general, LMA. The patient verbalized understanding of the anesthesia plan including risks and alternatives and agreed to proceed. All questions were answered. Johan Ramos MD. BS 242 30 minutes after 8 units SQ insulin. Will recheck in OR. Region - Other Informed Consent: Anesthetic plan and risks discussed with patient and spouse. Plan discussed with attending and DURALUMIN MECHANIC. PAT Staff Note documented in this encounter Miscellaneous Notes * Addendum Note - Noel Haywood CRNA - 01/23/2016 12:47 PM EDT Addendum created 01/23/16 1247 by Noel Haywood CRNA Anesthesia Intra Meds edited * Addendum Note - Mari Burt - 01/20/2016 5:48 PM EDT Addendum created 01/20/16 1748 by Mari Burt MD Anesthesia Attestations filed, Anesthesia Event edited, Anesthesia Intra Flowsheets edited, Anesthesia Review and Sign - Signed, Anesthesia Staff edited, Order sets accessed, Patient device removed, Procedure Event Log accessed, Sign clinical note documented in this encounter Plan of Treatment Upcoming Encounters Date Type Department Care Team (Late st Contact Info) Description 08/18/2024 10:30 AM EST Office [place] [address] Rodrigo Conteh MD [facility] [place] [address] documented as of this encounter Visit Diagnoses Not on filedocumented in this encounter Administered Medications Inactive Administered Medications - up to 3 most recent administrations Medication Order MAR Action Action Date Dose Rate Site ceFAZolin (ANCEF) 1g in dextrose 5% 50mL PRN, Starting on Sat01/20/16 at 1423, Until Sat01/20/16 at 1610, Administer over 30 Minutes, Anesthesia Intra-op Given 01/20/2016 2:23 PM EDT 2 g ePHEDrine 5 mg/mL multi-dose injection Intravenous, PRN, Starting on Sat01/20/16 at 1422, Until Sat01/20/16 at 1610, Anesthesia Intra-op, Routine Given 01/20/2016 2:59 PM EDT 5 mg Given 01/20/2016 2:22 PM EDT 10 mg fentaNYL 50 mcg/mL multi-dose injection Intravenous, PRN, Starting on Sat01/20/16 at 1415, Until Sat01/20/16 at 1610, Pain, Anesthesia Intra-op, Routine Given 01/20/2016 3:50 PM EDT 25 mcg Given 01/20/2016 2:44 PM EDT 25 mcg Given 01/20/2016 2:30 PM EDT 25 mcg insulin regular human VIAL injection PRN, Starting on Sat01/20/16 at 1435, Until Sat01/20/16 at 1610, Anesthesia Intra-op, Routine Given 01/20/2016 2:35 PM EDT 5 Units lactated ringers infusion CONTINUOUS PRN, Starting on Sat01/20/16 at 1401, Until Sat01/20/16 at 1610, Anesthesia Intra-op New Bag 01/20/2016 2:01 PM EDT lidocaine (PF) (XYLOCAINE) 100 mg/5 mL (2 %) injection Intravenous, PRN, Starting on Sat01/20/16 at 1404, Until Sat01/20/16 at 1610, Anesthesia Intra-op, Routine Given 01/20/2016 2:04 PM EDT 100 mg midazolam (PF) (VERSED) 1 mg/mL multi-dose injection Intravenous, PRN, Starting on Sat01/20/16 at 1401, Until Sat01/23/16 at 1246, Sleep, Anesthesia Intra-op, Routine Given 01/20/2016 2:01 PM EDT 2 mg ondansetron (ZOFRAN) injection 4 mg 4 mg, [...] Given 01/20/2016 3:50 PM EDT 8 mg propofol (DIPRIVAN) 10 mg/mL bolus injection (Anesthesia) Intravenous, PRN, Starting on Sat01/20/16 at 1404, Until Sat01/20/16 at 1610, Anesthesia Intra-op Given 01/20/2016 2:04 PM EDT 200 mg documented in this encounter Care Teams Greenhouse Superintendent Relationship Specialty Start Date End Date Linda Galeano MD [address] [place] [address] PCP - General 07/25/10 01/14/17 documented as of this encounter
--- OUTSIDE RECORDS SUMMARY | 2024-08-14 01:26 | XMS_ITS | Encounter Summary ---
Author Organization [facility] [place] [address] Care Team Providers Care Pasteurizer Helper Name Role Phone Linda Galeano MD Primary Care Provider [phone] Reason for Visit * Reason Onset Date Comments Medication Refill 01/23/2016 Encounter Details Date Type Department Care Team (Late st Contact Info) Description 01/23/2016 Refill [place] [phone] Rodrigo Conteh MD [facility] [place] [address] Chronic fatigue Social History Tobacco Use Types [...] as of this encounter Miscellaneous Notes * Addendum Note - Rodrigo Conteh MD - 03/30/2016 5:16 PM EDTAddended by: RODRIGO CONTEH on: 03/30/2016 05:16 PM Modules accepted: Orders * Telephone Encounter - Kathy Miller LPN - 01/23/2016 4:25 PM EDT Images from the original note were not included. Isiah Medrano?? Male, 51 y.o., 1965 Weight: 86.6 kg (190 lb 14.4 oz) Home: PCP: Linda Galeano MD myD-H: Pending Next Appt: 02/02/2016 ?? Patient Calls ? Rodrigo Conteh MD ??[facility] Endocrinology Nurse ? Ok to switch victoza to Trulicity full dose weekly as planned. RODRIGO CONTEH MD documented in this encounter Plan of Treatment Upcoming Encounters Date Type Department Care Team (Late st Contact Info) Description 08/18/2024 10:30 AM EST Office [place] [address] Rodrigo Conteh MD [facility] [place] [address] documented as of this encounter Results * TSH (04/03/2016 10:15 AM EDT) Thyroid Stimulating Hormone 1.37 0.27 - 4.20 mcIU/mL [facility] Blood specimen (specimen) 04/03/2016 10:15 AM EDT 04/03/2016 10:25 AM EDT Narrative Resulting Agency Comment Spec In Lab Rodrigo Conteh MD CHEMISTRY ORDERAB LES [facility] [place] [address] documented in this encounter Visit Diagnoses Diagnosis Chronic fatigue Other malaise and fatigue Type 2 diabetes mellitus with hyperglycemia, with long-term current use of insulin Vitamin D insufficiency Unspecified vitamin D deficiency Dyslipidemia Other and unspecified hyperlipidemia documented in this encounter Care Teams Pasteurizer Helper Relationship Specialty Start Date End Date Linda Galeano MD [address] [place] [address] PCP - General 07/25/10 01/14/17 documented as of this encounter
--- OUTSIDE RECORDS SUMMARY | 2024-08-14 01:26 | XMS_ITS | Encounter Summary ---
[place] [address] Care Team Providers Care Thread Winder Name Role Phone Linda Galeano MD Primary Care Provider [phone] Encounter Details Date Type Department Care Team (Late st Contact Info) Description 01/09/2016 [place] [phone] Kathy Miller LPN Social History Tobacco Use [...] Telephone Encounter - Kathy Miller LPN - 01/09/2016 4:31 PM EDT Called PCP office spoke with Love at which time following message was read to her. Note also faxed [phone] Vicki Salas * Telephone Encounter - Rodrigo Conteh MD - 01/09/2016 4:17 PM EDT I called him last Sat01/06/16 and asked him to come see me soon next 01/09 or 01/10, as his PCP's notified us of his high A1c 14%. He stated that he missed the medication for 2 mo while waiting to resume victoza as the Trulicity weekly pen was too costly. He recently got victoza and noted much better BG now 90-150 and rarely >200. He said he will see PCP soon on 01/09, so I asked him to bring his glucometer for his PCP to verify his good BG control more recently, and if it's good as he stated then he is ok for the surgery as planned. Our traveling secretary tried to arrange a follow-up visit with me and he prefers to see PCP directly on Sat first and see if he can get clearance directly as planned above. He will call our office to schedulevisit to a sooner date between his surgeries per our traveling secretary's (Daphne Elliott) message. Please let his PCP know and fax this note to PCP's office too. Thanks. RODRIGO CONTEH MD * Telephone Encounter - Kathy Miller LPN - 01/09/2016 3:51 PM EDT R/c to [facility] Vicki Salas PCP has to sign clearance for patient to have surgery on 01/20/16. She is asking from veterinary medicine teacher if it okay to have surgery with Ha1c of 14 % done on 01/02/16 Surgery is scheduled for 01/20/[address] Nina Falcon in [place]. documented in this encounter Plan of Treatment Upcoming Encounters Date Type Department Care Team (Late st Contact Info) Description 08/18/2024 10:30 AM EST Office [place] [address] Rodrigo Conteh MD [facility] [place] [place] [address] documented as of this encounter Visit Diagnoses Not on filedocumented in this encounter Care Teams Thread Winder Relationship Specialty Start Date End Date Linda Galeano MD [address] [place] [address] PCP - General 07/25/10 01/14/17 documented as of this encounter
--- OUTSIDE RECORDS SUMMARY | 2024-08-14 01:26 | XMS_ITS | Encounter Summary ---
Author Organization [facility] [place] [address] Care Team Providers Care Manager Games Name Role Phone Linda Galeano MD Primary Care Provider [phone] Reason for Visit * Reason Comments Follow Up Surgery s/p cunital tunnel r elease right hand 01/20/16 Encounter Details Date Type Department Care Team (Late st Contact Info) Description 02/02/2016 9:00 AM EDT Office Visit [place] [address] Amalia Ribeiro APRN [facility] [place] [address] Surgery follow-up Social History Tobacco Use Types Packs/Day Years [...] as of this encounter Progress Notes * Amalia Ribeiro APRN - 02/02/2016 9:15 AM EDT Plastic Surgery Post Op Note Reason for visit: F/U status post procedure Date of surgery: 01/20/16 Procedure(s): Ulnar nerve transposition at the elbow Complications: None reported Pain: 7 /10 HPI: Pt reports that his pain is 7/10. This is consistent with his pre-op pain. The pain is locatedin his hand. He is taking Gabapentin. He took his last Oxycodone last night. He is taking Ibuprofenand Tylenol. Examination: Patient is alert, conversant, comfortable, ambulating [...] hasreturned to approximately his pre- op state. He was not taking narcotics immediatly prior to surgery. We discussed returning to his pre-op pain regimen. His is nervous about not having narcotics and living so far away. I agreed to give him Oxycodone dispense #10 only to take for breakthrough pain. Plan: 1. Follow up: 1 month 2. To hand therapist today 3. No work at this time. Reevaluate at next visit. documented in this encounter Plan of Treatment Upcoming Encounters Date Type Department Care Team (Late st Contact Info) Description 08/18/2024 10:30 AM EST Office Visit [place] [address] Rodrigo Conteh MD [facility] DR ENDOCRINOLOGY [place] [phone] documented as of this encounter Visit Diagnoses Diagnosis Surgery follow-up Follow-up examination, following unspecified surgery Type 2 diabetes mellitus with hyperglycemia, with long-term current use of insulin Vitamin D insufficiency Unspecified vitamin D deficiency Dyslipidemia Other and unspecified hyperlipidemia documented in this encounter Care Teams Manager Games Relationship Specialty Start Date End Date Linda Galeano MD [address] [place] [address] PCP - General 07/25/10 01/14/17 documented as of this encounter
--- OUTSIDE RECORDS SUMMARY | 2024-08-14 01:26 | XMS_ITS | Encounter Summary ---
Author Organization [facility] [place] [address] Care Team Providers Care Studio Operation Engineer Name Role Phone Linda Galeano MD Primary Care Provider Reason for Visit * Reason Comments Diabetes Encounter Details Date Type Department Care Team (Late st Contact Info) Description 06/10/2015 1:00 PM EDT Office [place] [phone] Rodrigo Conteh MD [facility] [place] [address] Diabetes mellitus type 2, uncontrolled Social History Tobacco Use Types Packs/Day Years Used Date Smoking Tobacco: Never Smokeless Tobacco: Former Quit: 01/09/1995 Sex and Gender Information Value Date Recorded Sex Assigned at Not on file Gender Identity Not on file Sexual Orientation Not on file documented as of this encounter Last Filed Vital Signs Vital Sign Reading Time Taken Comments Blood Pressure 107/70 06/10/2015 12:45 PM EDT Pulse 76 06/10/2015 12:45 PM EDT Temperature - - Respiratory Rate - - Oxygen Saturation - - Inhaled Oxygen Concentration - - Weight 88.8 kg (195 lb 12.8 oz) 015 12:45 PM EDT Height 170.2 cm (5' 7) 06/10/2015 12:4 5 PM EDT Body Mass Index 30.67 06/10/2015 12:45 PM EDT documented in this encounter Patient Instructions * Patient Instructions* Rodrigo Conteh MD - 06/10/2015 1:45 PM EDT Recent Results (from the past 24 hour(s)) Hemoglobin A1c Result Value Ref Range Hemoglobin A1C 12.4 (H) 4.3 - 5.6 % Est Avg Gluc 309 mg/dL Plan: 1. Medication: Adjustment of diabetes treatment regimen: to start 70/30 mix 40 u bid x1 pen sample given today To start Trulicity pen 0.75 mg sc weekly x4 weeks and then increase to 1.5 mg pen weekly To use glimiperide 4 mg bid and metformin 1000 mg bid To check FSBG tid ac &hs and ok to give Novolog flexpen sliding scale p.r.n if BG>180 based on 1u:20BG ratio (180 3u, 200 5u, 250 8u, 300 10u, 350 13u, 400 15u, etc) To continue all other medications 2. Monitoring: to check FSBG before each meal and at bedtime. Target BG 80-140 while fasting and 80-150 pre-meal during daytime 1-2 h post meal below 180-200. Target A1c < 10% soon for this patient. 3. Diet and exercise: low fat/controlled carb diet & exercise as tolerated to keep weight down or at least stable. Patient will keep log of blood glucose and insulin used for review at next visit. 4. Lab: Already checked lab as above 5. RTC: Next visit in 3 months. Will check HbA1c at the time (Quick draw lab before visit with us on the same day). documented in this encounter Progress Notes * Rodrigo Conteh MD - 06/10/2015 1:14 PM EDT Endocrine Clinic Name: [facility] : 1965 Date: 06/10/2015 PCP: LINDA GALEANO MD (General) Provided by: Rodrigo Conteh MD Reason for visit: Follow-up diabetes Diabetes treatment regimen: Metformin 1000 mg bid and glimiperide 2 mg bid (*stopped lantus and victoza 1.8 mcg sc qd 3 months ago by self) => will resume 70/30 pen 40u bid for the next 3-4 days while waiting for Trulicity 0.75 mcg weekly to work and Novolog sliding scale qid p.r.n for high BG>180 FSBG: stopped checking for the last 3-6 mo! Most recent HA1c: 12.4% 06/10/15 (was 14.6% on 06/19/13 and 9.5% on 02/24/13) Hypoglycemia during the interval time: none Diet: low fat/low carb diet Exercise: walking Complications: no changes during the interim. Prevention: same as last visit recently. He is doing ok and entirely asymptomatic without polyuria/polydipsia with BG at 568 mg/dl at visit today, He admitted that he quit both insulin and victoza as his BG were always high and really wantsto resume short-acting insulin for correction of high BG as it works better for him. He is interested in using Trulicity weekly instead of victoza daily and has good health insurance. No GI side effects on victoza pen so he should tolerate weekly GLP-1 analogue. (He used to have much better BG in 100s range most of the time and was able to switch back from high dose insulin to victoza). Denies any changes in vision, no CP, SOB, GI issues, leg swelling or foot ulcer. ROS: Please see HPI, all others negative Patient Active Problem List Diagnosis Code ??? CIS - Acute non-ST segment elevation myocardial infarction ??? CIS - Depression ??? CIS - Diabetes mellitus type II ??? CIS - Essential hypertension ??? CIS - Gout ??? CIS - Hyperlipidemia Current Outpatient Prescriptions on File Prior to Visit Medication Sig Dispense Refill ??? Blood Sugar Diagnostic (ONE TOUCH ULTRA TEST) test strip 1 each by Other route 4 times daily. Use as instructed 400 each 3 ??? Liraglutide (VICTOZA 3-GARTH) 0.6 mg/0.1 mL (18 mg/3 mL) PnIj Inject 1.8 mg subcutaneously daily.1 month = 3 pens 3 Pen 11 ??? Insulin Mcdonald, Disposable, (BD INSULIN PEN NEEDLE UF MINI) 31 x 16 Ndle by Other route. 1box = 100 [...] pravastatin (PRAVACHOL) 40 mg tablet ??? Insulin Lispro (HUMALOG KWIKPEN) InPn Inject 0.02-0.2 mLs subcutaneously 4 times daily as needed (sliding scale if BG>150 ). 5 pens free with coupon 15 mL 0 ??? glucagon, human recombinant, 1 mg/mL injection Inject 1 mL into the muscle as needed. 1 each prn ??? nitroGLYcerin (NITROSTAT) 0.4 mg SL tablet 0.4 MG = 1 Tablet(s), Sublingual, PRN No current facility-administered medications on file prior to visit. Allergies Allergen Reactions ??? Eptifibatide CIS - thrombocytopenia History Social History ??? Marital Status: Spouse Name: N/A Number of Children: N/A ??? Years of Education: N/A Social History Main Topics ??? Smoking status: Never Smoker ??? Smokeless tobacco: Former User Quit date: 01/09/1995 ??? Alcohol Use: None ??? Drug Use: None ??? Sexual Activity: None Other Topics Concern ??? None Social History Narrative FAMILY HISTORY Family History Problem Relation Age of Onset ??? Diabetes Brother Physical exam BP 107/70 mmHg Pulse 76 Ht 170.2 cm (5' 7) Wt 88.814 kg (195 lb 12.8 oz) BMI 30.66 kg/m2 Appearance: mildly obese, pleasant, NAD, here with his HEENT: DANYELLE THOMSON Neck: no goiter Abdomen: benign, NT, ND Ext: no pitting edema no foot ulcer Neuro: no weakness Assessment: Diabetes Type 2- missed follow-up since 07/27/13 and switched back to severely uncontrolled DM withhigh A1c 12.4-14.6% range, requiring insulin to get him out of glucotoxicity soon. He used to respond well to GLP-1 (victoza) with A1c down quickly to 5.5-6.5% range (was able to stop high dose 70/30mix 90 u bid to victoza 1.8 mg qd with good BG control). He remains asymptomatic without polyuria or polydipsia and no nocturia at all. He only lost 5 lbs from 200 to 195 lbs over the past 2 yrs despite having uncontrolled DM. His islet cells are not functioning well any more with BG 568 at clinic today and he is now back in glucotoxicty phase Complication Risk Status: no complications present. Also, treated for CAD s/p stent RCA in 01/07, HTN, Chol, gout on treatment. Plan: 1. Medication: Adjustment of diabetes treatment regimen: to start 70/30 mix 40 u bid x1 pen sample given today so he can use insulin over the next 3-4 days to keep BG <200 range and out of glucotoxicity soon. To start Trulicity pen 0.75 mg sc weekly x4 weeks (samples given to see if he can tolerate it first) and then increase to 1.5 mg pen weekly To use optimal dose of glimiperide 4 mg bid and metformin 1000 mg bid To check FSBG tid ac & hs and ok to give Novolog flexpen sliding scale p.r.n if BG>180 basedon 1u:20BG ratio (180 3u, 200 5u, 250 8u, 300 10u, 350 13u, 400 15u, etc) To continue all other medications 2. Monitoring: to check FSBG before each meal and at bedtime. Target BG 80-140 while fasting and 80-150 pre-meal during daytime 1-2 h post meal below 180-200. Target A1c < 10% soon for this patient. 3. Diet and exercise: low fat/controlled carb diet & exercise as tolerated to keep weight down or at least stable. Patient will keep log of blood glucose and insulin used for review at next visit. 4. Lab: Already checked lab as above 5. RTC: Next visit in 2-3 months as he is confident that he can keep BG down at target with A1c <9% soon. Will check HbA1c at the time (Quick [...] MD, PhD, FACE CC: LINDA GALEANO MD (General) documented in this encounter Plan of Treatment Upcoming Encounters Date Type Department Care Team (Late st Contact Info) Description 08/18/2024 10:30 AM EST Office [place] [address] Rodrigo Conteh MD [facility] [place] [address] documented as of this encounter Results * (ABNORMAL) Hemoglobin A1c (09/15/2015 12:06 PM EST) [facility] Signature Hemoglobin A1c 11.5(H) 4.3 - 5.6 % [facility] Comment: Reference Range: 4.3 - 5.6% [...] 1, S67-74 Estimated Average Glucose 283 mg/dL [facility] Comment: eAG equivalents for HbA1c percentages: HbA1c(%) ?eAG(mg/dL) 6.0 ?126 6.5 ?140 7.0 ?154 7.5 ?169 8.0 ?183 8.5 ?197 9.0 ?212 9.5 ?226 10.0 ? 240 Limitations: The eAG calculation has not been validated on women, individuals below 18 years old and above 70 years old, and individuals with hemoglobinopathies. Additional resources are available on the ADA website: http://[employer].MuckRock/DHMCadacalc Tony WALTERS, Harmeet J, Jj R, et al. ??Translating the A1C assay into estimated average glucose values. ??Diabetes Care 2008:31(8):5833-7637. Blood specimen (specimen) 09/15/2015 12:06 PM EST 09/15/2015 12:46 PM EST Narrative Resulting Agency Comment Spec In Lab Rodrigo Conteh MD CHEMISTRY ORDERAB LES Performing Organization Address City/State/[facility] Co de Phone Number [facility] documented in this encounter Visit Diagnoses Diagnosis Diabetes mellitus type 2, uncontrolled Type II or unspecified type diabetes mellitus without mention of complication, uncontrolled Type 2 diabetes mellitus with hyperglycemia, with long-term current use of insulin Vitamin D insufficiency Unspecified vitamin D deficiency Dyslipidemia Other and unspecified hyperlipidemia documented in this encounter Care Teams Studio Operation Engineer Relationship Specialty Start Date End Date Linda Galeano MD [address] [place] [address] PCP - General 07/25/10 01/14/17 documented as of this encounter
--- OUTSIDE RECORDS SUMMARY | 2024-08-14 01:26 | XMS_ITS | Encounter Summary ---
Author Organization [facility] Address [facility] [place] [address] Care Team Providers Care Steam Clothes Press Operator Name Role Phone Linda Galeano MD Primary Care Provider [phone] Reason for Visit * Auth/Cert Specialty Diagnoses / Procedures Referred By Contac t Referred To Contact Diagnoses ulnar nerve neuropathy Procedures PRO REVISE ULNAR NERVE AT ELBOW NEUROPLASTY &/OR TRANSPOSITION, ULNAR NERVE AT ELBOW Referral ID Status Reason Start Date Expiration Date Visits Re quested Visits Authorized [id number] 1 1 Encounter Details Date Type Department Care Team (Latest Contact Info) Description 01/20/2016 11:12 AM EDT - 01/20/2016 7:10 PM EDT Hospital En[place] [phone] Galdino Covington MD [facility] [place] [address] Discharge Disposition: Home Social History Tobacco Use [...] Sign Reading Time Taken Comments Blood Pressure 107/73 01/20/2016 5:15 PM EDT Pulse 79 01/20/2016 4:05 PM EDT Temperature 36 ??C (96.8 ??F) 01/20/2016 4:05 PM EDT Respiratory Rate 16 01/20/2016 5:15 PM EDT Oxygen Saturation 93% 01/20/2016 5:15 PM EDT Inhaled Oxygen Concentration - - [...] about scheduling, please contact our administrative officesat [phone] For clinical questions, please call our nurses at [phone] Both offices are open Saturday thru Saturday 8a - 5p. With emergencies after hours, call the hospital pinked edge sewing machine operator at [phone] and ask for the Plastic Surgery Resident human resources professional. documented in this encounter Medications at Time [...] BG>200). 45 mL 3 06/10/2015 04/03/2016 Insulin [place], Disposable, (BD INSULIN PEN NEEDLE UF MINI) [...] Miscellaneous Notes * Op Note - Galdino Covington MD - 01/23/2016 1:[address] [facility] Operative Note Case Date: 01/20/2016 Surgeon: Surgeon(s) [...] Operative Note Patient Name: Isiah Medrano : [id number] MR#: [id number] Case Date: 01/20/2016 Surgeon: Surgeon(s) and Role: [...] 10:30 AM EST Office [place] [address] Rodrigo Conteh MD [facility] [place] [address] documented as of this encounter Procedures Procedure [...] (ABNORMAL) POCT Glucose (01/20/2016 4:54 PM EDT) [facility] Signature Glucose, POC 293(H) 65 - 199 mg/dL [facility] Comment: Supplemental ranges: <140 mg/dL before meals <180 mg/dL all other times of the day Blood specimen (specimen) 01/20/2016 4:54 PM EDT 01/20/2016 4:54 PM EDT Galdino Covington MD POINT OF CARE TEST O RDERABLES [facility] [place] [address] * (ABNORMAL) POCT Glucose (01/20/2016 4:07 PM EDT) Glucose, POC 320(H) 65 - 199 mg/dL [facility] Comment: Supplemental ranges: <140 mg/dL before meals <180 mg/dL all other times of the day Blood specimen (specimen) 01/20/2016 4:07 PM EDT 01/20/2016 4:07 PM EDT Galdino Covington MD POINT OF CARE TEST O LIBORIO [facility] [place] [address] * (ABNORMAL) POCT Glucose (01/20/2016 2:31 PM EDT) Glucose, POC 290(H) 65 - 199 mg/dL [facility] Comment: Supplemental ranges: <140 mg/dL before meals <180 mg/dL all other times of the day Blood specimen (specimen) 01/20/2016 2:31 PM EDT 01/20/2016 2:31 PM EDT Galdino Covington MD POINT OF CARE TEST O LIBORIO Performing Organization Address [facility] Co de Phone Number [facility] [place] [address] * (ABNORMAL) POCT Glucose (01/20/2016 1:48 PM EDT) Glucose, POC 340(H) 65 - 199 mg/dL [facility] Comment: Supplemental ranges: <140 mg/dL before meals <180 mg/dL all other times of the day Blood specimen (specimen) 01/20/2016 1:48 PM EDT 01/20/2016 1:48 PM EDT Galdino Covington MD POINT OF CARE TEST O LIBORIO Performing Organization Address City/[facility]/ZIP Co de Phone Number [facility] [place] [address] * (ABNORMAL) POCT Glucose (01/20/2016 11:51 AM EDT) Glucose, POC 359(H) 65 - 199 mg/dL [facility] Comment: Supplemental ranges: <140 mg/dL before meals <180 mg/dL all other times of the day Blood specimen (specimen) 01/20/2016 11:51 AM EDT 01/20/2016 11:51 AM EDT Galdino Covington MD POINT OF CARE TEST O RDERABLES [facility] [address] [facility] [address] [place] [address] documented in this encounter Visit Diagnoses Not [...] Routine 1735 (Given - Provid er: Anita Umanzor RN) insulin regular human VIAL injection 8 Units [...] Anita Umanzor RN) PRN Medication Order 01/18/2016 01/19/201601/20/2016 BUpivacaine (PF) (MARCAINE) 0.25 % (2.5 mg/mL) [...] Noel Haywood CRNA)1834 (Given - Provider: Jenifer Ortiz RN) oxyCODONE (ROXICODONE) immediate release tablet 5-10 mg 5-10 mg, Oral, EVERY 6 HOURS PRN, Starting on Sat01/20/16 at 1632, Until Sat01/20/16 at 2110, Pain, Recovery (Recovery-Hospital Unit), Routine 1637 (Given - Provid er: nAita Umanzor RN)181 (Given - Provider: Jenifer Ortiz RN) Linked Groups Order Group 1: [id number] [...] Recovery documented in this encounter Care Teams Steam Clothes Press Operator Relationship Specialty Start Date End Date Linda Galeano MD [address] [place] [address] PCP - General 07/25/10 01/14/17 documented as of this encounter
--- OUTSIDE RECORDS SUMMARY | 2024-08-14 01:26 | XMS_ITS | Encounter Summary ---
Author Organization [facility] [place] [address] Care Team Providers Care Probation Worker Name Role Phone Linda Galeano MD Primary Care Provider Reason for Visit * Occupational Therapy (Routine) - Closed Specialty Diagnoses / Procedures Referred By Nii hoffman Referred To Contact Occupational Therapy Diagnoses Ulnar neuropathy of right upper extremity Galdino Wood MD [facility] [place] [address] [facility] [place] [address] Referral ID Status Reason Start Date Expiration Date V isits Requested Visits Authorized [id number] Closed Evaluate and Treat 12/12/2015 12/11/2016 1 1 Encounter Details Date Type Department Care Team (Late st Contact Info) Description 02/02/2016 10:30 AM EDT Office Visit Occupational Therapy at [facility] [address] [place] [address] Anita Ly OT Ulnar neuropathy of right upper extremity [...] of this encounter Progress Notes * Anita Ly OT - 02/03/2016 7:32 AM EDT OCCUPATIONAL THERAPY SPLINTING EVALUATION REFERRAL SOURCE: Dr. wood DIAGNOSIS: 1. Ulnar neuropathy of right upper extremity DATE OF INJURY: Over 2 year duration DATE OF SURGERY: 01/20/16 NEXT MD FOLLOW UP: One month TOTAL TREATMENT TIME: 30 Minutes TIMED CODE TREATMENT TIME: 30 minutes CURRENT HISTORY: Isiah Medrano is a 51 y.o. year old Right hand dominant male who is seen today following MD post-operative visit for his right hand s/p ulnar nerve release and ulnar nerve transposition. Isiah Medrano is referred to Occupational Therapy for evaluation and treatment to include splinting. Patient presents today accompanied by patient and . CURRENT SYMPTOMS: Patient presents with hypersensitivity in the palm of his hand and his ulnar digits. He reports it being very uncomfortable. Otherwise he has minimal pain PAIN: (Assessed using the visual analog scale) At Rest: 2/10 With Activity: 3/10 FUNCTIONAL LIMITATIONS: Vocational status: Occupation: not working, off work- has been off over a year Patient Specific Functional Scale (PSFS): 0/10 (unable to perform) to 10/10 (Able to perform without difficulty) Activity At Evaluation 1.) Bathing 5 2.) Dressing 5 3.) Home management 5 Average Score: 50% TREATMENT TODAY: Educated patient in etiology and biomechanics as related to patient's symptoms Instructed patient in: safe use of rest, ice, compression, and elevation for edema management and proper posture and positioning Removal of his post-operative splint and dressings Fabrication of a posterior elbow splint with him being positioned in 70 of flexion Splint care/instructions reviewed Instruct in home exercises of a. Elbow extension /flexion, b. Wrist ext/flexion c. Use of hand putty for gripping and edema control D. Issued sensory stim brush for desensitization to his ulnar hand Provide referral for him to attend local therapy for recovery of his elbow ROM and begin with ulnarnerve glides as appropriate Review activity restrictions of avoiding vibration, resistance or repitition ASSESSMENT: Isiah Medrano has a well fitting splint post therapy. Isiah Medrano is able to independently verbalize and demonstrate his home program following instructions today. Isiah Medrano has good potential for gains with therapy/splinting. Patient knows to call with any questions or concerns. Short Term Goals (to be met by end of the visit today): Date Goal Met: Today 1. Isiah E Mitchell will demonstrate independence with donning and doffing of splint and verbalization of splinting purpose. Goal Status: Meets. Today 2. Isiah Medrano will be independent with home exercises as evident with demonstration in therapy. Goal Status: Meets PLAN: Splinting to provide support and protection to the joint Therapy at local clinic MD visit in one month (X) Isiah Medrano participated in the evaluation, collaborated on treatment goals, and agrees to the treatment plan . documented in this encounter Plan of Treatment Upcoming Encounters Date Type Department Care Team (Late st Contact Info) Description 08/18/2024 10:30 AM EST Office [place] [address] Rodrigo Conteh MD [facility] [place] [address] Scheduled Referrals Name Type Priority Associated Diagnoses Order Schedule Referral to Occupational Therapy Outpatient Referral Routine Ulnar neuropathy of right upper extremity Ordered: 12/12/2015 documented as of this encounter Visit Diagnoses Diagnosis Ulnar neuropathy of right upper extremity Lesion of ulnar nerve Type 2 diabetes mellitus with hyperglycemia, with long-term current use of insulin Vitamin D insufficiency Unspecified vitamin D deficiency Dyslipidemia Other and unspecified hyperlipidemia documented in this encounter Care Teams Probation Worker Relationship Specialty Start Date End Date Linda Galeano MD [address] [place] [id number] PCP - General 07/25/10 01/14/17 documented as of this encounter
--- OUTSIDE RECORDS SUMMARY | 2024-08-14 01:26 | XMS_ITS | Encounter Summary ---
Author Organization [facility] [place] [address] Care Team Providers Care Data Entry Associate Name Role Phone Linda Galeano MD Primary Care Provider [phone] Reason for Visit * Reason Comments Diabetes Encounter Details Date Type Department Care Team (Late st Contact Info) Description 09/15/2015 1:30 PM EST Office [place] [phone] Rodrigo Conteh MD [facility] [place] [address] Type 2 diabetes, uncontrolled, with neuropathy Social History Tobacco Use Types Packs/Day Years Used Date Smoking Tobacco: Never Smokeless Tobacco: Former Quit: 01/09/1995 Sex and Gender Information Value Date Recorded Sex Assigned at Not on file Gender Identity Not on file Sexual Orientation Not on file documented as of this encounter Last Filed Vital Signs Vital Sign Reading Time Taken Comments Blood Pressure 114/73 09/15/2015 1:20 PM EST Pulse 82 09/15/2015 1:20 PM EST Temperature - - Respiratory Rate - - Oxygen Saturation - - Inhaled Oxygen Concentration - - Weight 90.7 kg (200 lb) 09/15/2015 1:20 PM EST Height 170.2 cm (5' 7) 09/15/2015 1:20 PM EST Body Mass Index 31.32 09/15/2015 1:20 PM EST documented in this encounter Progress Notes * Rodrigo Conteh MD - 09/15/2015 1:40 PM EST Endocrine Clinic Name: Isiah Medrano : 1965 Date: 09/15/2015 PCP: LINDA GALEANO MD Provided by: Rodrigo Conteh MD Reason for visit: Follow-up diabetes Diabetes treatment regimen: Metformin 1000 mg bid and glimiperide 4 mg bid Trulicity 1.5 mcg weekly since and simply forgot to use insulin a lot (Novolog sliding scaleqid p.r.n for high BG>180) FSBG: only checking p.r.n and simply forgot to do it with lots of Rt arm pain which distracted him Most recent HA1c: 11.5% today (was 12.4% 06/10/15 , 14.6% on 06/19/13 and 9.5% on 02/24/13) Hypoglycemia during the interval time: none Diet: low fat/low carb diet Exercise: walking Complications: no changes during the interim. Prevention: same as last visit recently. He is doing ok and entirely asymptomatic without polyuria/polydipsia with high A1c but trending down gradually. FGBG was better 180 mg/dl at visit today, as he remembered to give Humalog kwikpen 15u for high BG this am. He admitted that he simply forgot to check BG and use insulin with lots of Rt arm pain distracting him all day. We explained to him that good DM control is critical for nerve healing and prevent further progression of neuropathy until he understands fully today. He wants to do his best using the short-acting insulin for correction of high BG which works better for him. He is using Trulicity weekly instead of victoza daily without GI side effects and has good health insurance(He used to have much better BG in [...] to Visit Medication Sig Dispense Refill ??? atorvastatin (LIPITOR) 40 mg Tablet daily. ??? gabapentin (NEURONTIN) 300 mg Capsule Take 1,800 mg by mouth daily. ??? isosorbide mononitrate (IMDUR) 30 mg Tablet Sustained Release 24 hr Take by mouth daily. ??? meTOPROLOL succinate (TOPROL-XL) 25 mg Tablet Sustained Release 24 hr daily. ??? dulaglutide 1.5 mg/0.5 mL Pen Injector Inject 1.5 mg subcutaneously once a week. 12 Syringe 3 ??? glimepiride (AMARYL) 4 mg Tablet Take 1 tablet by mouth 2 times daily. 180 tablet 3 ??? Blood Sugar Diagnostic (ONE TOUCH ULTRA TEST) test strip 1 each by Other route 4 times daily. Use as instructed 400 each 3 ??? Insulin [place], Disposable, (BD INSULIN PEN NEEDLE UF MINI) [...] ??? pravastatin (PRAVACHOL) 40 mg tablet ??? insulin aspart (NOVOLOG) Insulin Pen Inject 2-20 Units subcutaneously 4 times daily as needed for High Blood Sugar (f high BG>200). 45 mL 3 ??? [DISCONTINUED] oxyCODONE-acetaminophen (PERCOCET) 5-325 mg Tablet as needed. ??? Insulin Lispro (HUMALOG KWIKPEN) InPn Inject 0.02-0.2 mLs subcutaneously 4 times daily as needed (sliding scale if BG>150 ). 5 pens free with coupon 15 mL 0 ??? [DISCONTINUED] Liraglutide (VICTOZA 3-GARTH) 0.6 mg/0.1 mL (18 mg/3 mL) PnIj Inject 1.8 mg subcutaneously daily. 1 month = 3 pens 3 Pen 11 ??? glucagon, human recombinant, 1 mg/mL [...] Onset ??? Diabetes Brother Physical exam BP 114/73 mmHg Pulse 82 Ht 170.2 cm (5' 7) Wt 90.719 kg (200 lb) BMI 31.32 kg/m2 Appearance: mildly obese, pleasant, NAD, here with his HEENT: DANYELLE THOMSON Neck: no goiter Abdomen: benign, NT, ND Ext: no pitting edema no foot ulcer Rt arm with bandage s/p Rt ulnar nerve transposition surgery last Neuro: no weakness Assessment: Diabetes Type 2- missed follow-up since 07/27/13 and switched back to severely uncontrolled DM withhigh A1c 12.4-14.6% range, requiring insulin to get him out of glucotoxicity but he simply kept forgetting to check BG and use insulin sliding scale. He remembered to take and tolerated Trulicity penweekly with A1c trending down slightly to 11.5% today. He used to respond well to GLP-1 (victoza) with A1c down quickly to 5.5-6.5% range (He was able to stop high dose 70/30 mix 90 u bid to victoza 1.8 mg qd with good BG control). He remains asymptomatic without polyuria or polydipsia and no nocturia at all. He gained 5 lbs back from 195 to 200 lbs over the past 2 months. His islet cells are not functioning well in glucotoxicity and will need to keep A1c <10% soon. FSBG 180 at clinic today when he remembered to use Humalog kwickpen for correction of high BG this am and he will try his best to remember to do insulin to get him out of the glucotoxicty phase and in turn will help with his painful peripheral neuropathy (s/p Rt ulnar nerve transposition surgery last ). Complication Risk Status: + complications present with peripheral neuropathy. Also, treated for CAD s/p stent RCA in 01/07, HTN, Chol, gout on treatment. Plan: 1. Medication: Adjustment of diabetes treatment regimen: To cont Trulicity pen 1.5 mg sc weekly Ok to take glimiperide 4 mg 2 tablet all together in am (so he won;t forget the pm dose) To cont metformin 1000 mg bid To check FSBG more often tid ac & hs and give Humalog kwickpen sliding scale p.r.n if BG>180based on 1u:20BG ratio (180 3u, 200 5u, 250 8u, 300 10u, 350 13u, 400 15u, etc) To continue all other medications and start taking OTC-B12 1,000 mcg po qd as well for neuropathy but better DM control is critical for him. 2. Monitoring: to check FSBG before each [...] as above 5. RTC: Next visit in 2 months as he is confident that he can keep BG down at target with A1c <9-10% soon. Will check both HbA1c & B12 for his painful neuropathy at the [...] 10:30 AM EST Office [place] [address] Rodrigo Conteh MD [facility] [place] [address] Scheduled Orders Name Type Priority Associated Diagnoses Orde r Schedule Hemoglobin A1c Lab Routine Type 2 diabetes, uncontrolled, with neuropathy Expected: 12/15/2015, Expires: 09/15/2016 documented as of this encounter Results * (ABNORMAL) Hemoglobin A1c (04/03/2016 10:15 AM EDT) Hemoglobin A1c 9.2(H) 4.3 - 5.6 % [facility] Comment: Reference Range: 4.3 [...] Mellitus, Diabetes Care 2013; 36: Suppl. 1, X08-53 Estimated Average Glucose 217 mg/dL [facility] Comment: eAG equivalents for HbA1c percentages: HbA1c(%) ?eAG(mg/dL) 6.0 ?126 6.5 ?140 7.0 ?154 7.5 ?169 8.0 ?183 8.5 ?197 9.0 ?212 9.5 ?226 10.0 ? 240 Limitations: The eAG calculation has not been validated on women, individuals below 18 years old and above 70 years old, and individuals with hemoglobinopathies. Additional resources are available on the ADA website: http://Holgan[employer].arviem AG/DHMCadacalc Tony WALTERS, Harmeet J, Jj R, et al. ??Translating the A1C assay into estimated average glucose values. ??Diabetes Care 2008:31(8):4307-0132. Blood specimen (specimen) 04/03/2016 10:15 AM EDT 04/03/2016 10:25 AM EDT Narrative Resulting Agency Comment Spec In Lab Rodrigo Conteh MD CHEMISTRY ORDERAB LES Performing Organization Address [facility] Co de Phone Number [facility] [place] [address] * Vitamin B12 (04/03/2016 10:15 AM EDT) Vitamin B12 600 207 - 974 pg/mL [facility] Blood specimen (specimen) 04/03/2016 10:15 AM EDT 04/03/2016 10:25 AM EDT Narrative Resulting Agency Comment Spec In Lab Rodrigo Conteh MD CHEMISTRY ORDERAB LES Performing Organization Address [facility] Co de Phone Number [facility] [place] [address] documented in this encounter Visit Diagnoses Diagnosis Type 2 diabetes, uncontrolled, with neuropathy Type II or unspecified type diabetes mellitus with neurological manifestations, uncontrolled Type 2 diabetes mellitus with hyperglycemia, with long-term current use of insulin Vitamin D insufficiency Unspecified vitamin D deficiency Dyslipidemia Other and unspecified hyperlipidemia documented in this encounter Care Teams Data Entry Associate Relationship Specialty Start Date End Date Linda Galeano MD [address] [place] [address] PCP - General 07/25/10 01/14/17 documented as of this encounter
--- OUTSIDE RECORDS SUMMARY | 2024-08-14 01:26 | XMS_ITS | Encounter Summary ---
[place] [address] Care Team Providers Care Associate Brand Manager Name Role Phone Linda Galeano MD Primary Care Provider [phone] Encounter Details Date Type Department Care Team (Late st Contact Info) Description 10/03/2015 Telephone [place] [phone] Kathy Miller LPN Social History Tobacco Use Types Packs/Day Years Used Date Smoking Tobacco: Never Smokeless Tobacco: Former Quit: 01/09/1995 Sex and Gender Information Value Date Recorded Sex Assigned at Not on file Gender Identity Not on file Sexual Orientation Not on file documented as of this encounter Miscellaneous Notes * Telephone Encounter - Kathy Miller LPN - 10/12/2015 8:29 AM EST calls at which time message from Dr Conteh was also read to her. states that Rx needs to go to [facility]. [facility] does not take the card * Telephone Encounter - Kathy Miller LPN - 10/12/2015 8:00 AM EST Called patient at which time message from Dr Conteh was read to him. Per patient Rx for Victoza to go to [facility]. * Telephone Encounter - Kathy Miller LPN - 10/10/2015 3:48 PM EST R/c to . No answer message left with son Sandro and on her work # for Lisa to r/c to nurse. * Telephone Encounter - Kathy Miller LPN - 10/06/2015 9:40 AM EST R/c to patient/. No answer. Message left on home v/m for r/c to nurse at which time message from Dr Conteh will be read to them. * Telephone Encounter - Rodrigo Conteh MD - 10/05/2015 4:40 PM EST Ok that;s great if Victoza with the card was $25 only. Pt should go back taking the daily Victoza then. Thanks. RODRIGO CONTEH MD * Telephone Encounter - Kathy Miller LPN - 10/05/2015 1:34 PM EST calls at which time message from Dr Conteh. states Victoza with the card was $25.. Ifthere is no other alternative I think he would go back taking the daily Victoza Forward to Dr Conteh. * Telephone Encounter - Kathy Miller LPN - 10/04/2015 2:55 PM EST R/c to patient/. No answer message left on home v/m for patient to r/c to nurse at which time message from Dr Conteh will be read to him. * Telephone Encounter - Rodrigo Conteh MD - 10/03/2015 3:23 PM EST I do not have sample for Trulicity pen, sorry, but a few victoza pens ($90/month for Trulicity weekly is better than the full cost of $400-500/mo or more of victoza, so it;s good that the coupon helpknock the cost down a lot for him). RODRIGO CONTEH MD * Telephone Encounter - Kathy Miller LPN - 10/03/2015 9:36 AM EST Call from . He is taking Trulicity. even with the card she gave him it cost $90. Per month. is asking if there are any other options or if Dr Conteh has any samples.[facility] [place] [facility]30 for . documented in this encounter Plan of Treatment Upcoming Encounters Date Type Department Care Team (Late st Contact Info) Description 08/18/2024 10:30 AM EST Office [place] [address] Rodrigo Conteh MD [facility] [place] [address] documented as of this encounter Visit Diagnoses Not on filedocumented in this encounter Care Teams Associate Brand Manager Relationship Specialty Start Date End Date Linda Galeano MD [address] [place] [address] PCP - General 07/25/10 01/14/17 documented as of this encounter
--- OUTSIDE RECORDS SUMMARY | 2024-08-14 01:26 | XMS_ITS | Encounter Summary ---
Author Organization Formerly [facility] [place] [address] Care Team Providers Care Shipyard Helper Name Role Phone Linda Galeano MD Primary Care Provider [phone] Reason for Visit * Reason Comments Diabetes Encounter Details Date Type Department Care Team (Late st Contact Info) Description 02/24/2013 1:05 PM EDT Office [place] [phone] Rodrigo Conteh MD [facility] [place] [address] Type II or unspecified type diabetes mellitus without mention of complication, uncontrolled (Primary Dx) Discharge Disposition: Home Social History Tobacco Use Types Packs/Day Years Used Date Smoking Tobacco: Never Sex and Gender Information Value Date Recorded Sex Assigned at Not on file Gender Identity Not on file Sexual Orientation Not on file documented as of this encounter Last Filed Vital Signs Vital Sign Reading Time Taken Comments Blood Pressure 143/90 02/24/2013 2:19 PM EDT Pulse 90 02/24/2013 2:19 PM EDT Temperature - - Respiratory Rate - - Oxygen Saturation - - Inhaled Oxygen Concentration - - Weight 100.1 kg (220 lb 9.6 oz) 02/24/2013 2:19 PM EDT Height - - Body Mass Index 35.61 11/04/2012 1:49 PM EST documented in this encounter Patient Instructions * Patient Instructions* Rodrigo Conteh MD - 02/24/2013 3:04 PM EDT Recent Results (from the past 24 hour(s)) TSH Component Value Range TSH 1.03 0.27 - 4.20 mcIU/mL HDL/CHOL PROFILE Component Value Range Chol, Total 192 <=199 mg/dL HDL 37 (*) >=40 mg/dL Chol/HDL Ratio 5.2 LDL CHOLESTEROL, DIRECT Component Value Range LDL Chol Direct 114 (*) <=99 mg/dL MICROALBUMIN, URINE, RANDOM Component Value Range U Creatinine 127 U Ran Malb Conc 5.2 U Ran Malb Calc 4 Assessment: Diabetes Type 2 - uncontrolled but improving after he used 70/30mix high dose 90u bid over the past3 months but gaining wt quickly 10-15 lbs despite using metformin 1000 mg bid. We will start victoza today. Complication Risk Status: no complications present Also, treated for CAD s/p stent RCA in 01/07, HTN, Chol, gout on treatment with good control Plan: 1. Medication: Adjustment of diabetes treatment regimen: To start victoza pen 0.6 mg sc qd for 2-7 days and if tolerated, increasing to 1.2- 1.8 mg sc qd To reduce 70/30 mix to 40-60u bid and allow him to cut back down quickly To cont metformin 1000 mg bid To continue all other medications ad OTC-vitamin D 1,000 iu qd 2. Monitoring: to check FSBG before each [...] visit. 4. Lab: Already checked lab today and will let pt know all the results soon for A1c and 25vitamin D 5. RTC: Next visit in 4 weeks. Will bring meter and glucose log for review. documented in this encounter Progress Notes * Rodrigo Conteh MD - 02/24/2013 2:22 PM EDT Endocrine Clinic Name: [facility] : 1965 Date: 02/24/13 PCP: LINDA GALEANO MD Provided by: Rodrigo Conteh MD Reason for visit: Follow-up diabetes (last visit with me on 02/02/09) Diabetes treatment regimen: 70/30mix up from 60 to 90 units bid over the past 3 months (saw Lizzie Stewart [employer]OADCAST OPERATIONS TECHNICIAN and gained 10-15 lbs quickly) Also, metformin 1000 mg bid FSBG: average 170 over the past 2 months, ranging between 120s-250 mg/dl Most recent HA1c: is pending today (was 14% on 08/08/12) Hypoglycemia during the interval time: none Diet: low fat/controlled carb diet 3 meals/day without snacks Breakfast: 4 [place] muffins with peanut butter Lunch: 2 sandwishes Dinner: varies, last night = cheese burger and pasta salad (not green salad person) Exercise: walking Complications: no changes during the interim. Prevention: same as last visit recently. He noted some blurry vision, no polyuria/nocturia. No CP, SOB, GI issues, leg swelling or foot ulcer. No numbness in his toes. He gained wt 10-15 lbs after insulin so we will start victoza pen today. ROS: Please see HPI, all others negative [...] Visit Medication Sig Dispense Refill ??? metFORMIN (GLUCOPHAGE) 500 mg tablet Take 1,000 mg by mouth 2 times daily (with meals). ??? insulin aspart protamine-insulin aspart 70/30 (NOVOLOG MIX 70-30) 100 unit/mL (70-30) injectionInject 65-85 Units subcutaneously 2 times daily (before meals). 50 mL 11 ??? Insulin Syringe-Needle U-100 (BD INSULIN SYRINGE ULT-FINE II) 1 mL 31 x 5/16 Syrg 1 each by Misc.(Non-Drug; Combo Route) route 2 times daily (before meals). 100 each 11 ??? allopurinol (ZYLOPRIM) 300 mg tablet ??? lisinopril (PRINIVIL;ZESTRIL) 10 mg tablet ??? aspirin 325 mg EC tablet ??? FLUoxetine (PROZAC) 20 mg tablet ??? pravastatin (PRAVACHOL) 40 mg tablet ??? glucagon, human recombinant, 1 mg/mL injection [...] Onset ??? Diabetes Brother Physical exam BP 143/90 Pulse 90 Wt 100.064 kg (220 lb 9.6 oz) Appearance: Obese, pleasant, NAD HEENT: PERRLA, EOMI, no retinopathy (already had dilated eye exam in 09/14) Neck: no goiter or lymphadenopathy Cardiac: normal S1, S2, no murmur Chest: CTA, no wheeze or crackle. Abdomen: benign, NT, no hepatosplenomegaly Ext: no pitting edema no foot ulcer Neuro: no weakness, normal reflexes sensation was intact per 10 g of pressure monofilament testing Recent Results (from the past 24 hour(s)) TSH Component Value Range TSH 1.03 0.27 - 4.20 mcIU/mL HDL/CHOL PROFILE Component Value Range Chol, Total 192 <=199 mg/dL HDL 37 (*) >=40 mg/dL Chol/HDL Ratio 5.2 LDL CHOLESTEROL, DIRECT Component Value Range LDL Chol Direct 114 (*) <=99 mg/dL MICROALBUMIN, URINE, RANDOM Component Value Range U Creatinine 127 U Ran Malb Conc 5.2 U Ran Malb Calc 4 Assessment: Diabetes Type 2 - uncontrolled but improving after he used 70/30mix high dose 90u bid over the past3 months but gaining wt quickly 10-15 lbs despite using metformin 1000 mg bid. We will start victoza today. Complication Risk Status: no complications present Also, treated for CAD s/p stent RCA in 01/07, HTN, Chol, gout on treatment with good control Plan: 1. Medication: Adjustment of diabetes treatment regimen: To start victoza pen 0.6 mg sc qd for 2-7 days and if tolerated, increasing to 1.2- 1.8 mg sc qd To reduce 70/30 mix to 40-60u bid and allow him to cut back down quickly To cont metformin 1000 mg bid To continue all other medications ad OTC-vitamin D 1,000 iu qd 2. Monitoring: to check FSBG before each [...] visit. 4. Lab: Already checked lab today and will let pt know all the results soon for A1c and 25vitamin D 5. RTC: Next visit in 4 weeks. Will bring meter and glucose log for review. We have reviewed our plan outlined above [...] 10:30 AM EST [place] [phone] Rodrigo Conteh MD [facility] [place] [address] documented as of this encounter Visit Diagnoses Diagnosis Type II or unspecified type diabetes mellitus without mention of complication, uncontrolled- Primary Type 2 diabetes mellitus with hyperglycemia, with long-term current use of insulin Vitamin D insufficiency Unspecified vitamin D deficiency Dyslipidemia Other and unspecified hyperlipidemia documented in this encounter Care Teams Shipyard Helper Relationship Specialty Start Date End Date Linda Galeano MD [address] [place] [address] PCP - General 07/25/10 01/14/17 documented as of this encounter
--- OUTSIDE RECORDS SUMMARY | 2024-08-14 01:26 | XMS_ITS | Encounter Summary ---
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 Name Role Phone Linda Galeano MD Primary Care Provider [phone] Encounter Details Date Type Department Care Team (Late st Contact Info) Description 01/24/2016 Orders [place] [phone] Amalia Ribeiro APRN [facility] [place] [address] Social History Tobacco Use Types Packs/Day Years [...] AM EST Office [place] [phone] Rodrigo Conteh MD [facility] [place] [address] documented as of this encounter Visit Diagnoses Not on filedocumented in this encounter Care Teams Pigment Furnace Tender Relationship Specialty Start Date End Date Linda Galeano MD [address] [place] [address] PCP - General 07/25/10 01/14/17 documented as of this encounter
[2024-08-14 11:52] LABS: Hemoglobin A1C 10.4 % (<5.7)
[2024-08-14 12:01] LABS: COMMENT (LAB VIEW ONLY) 33.02 mg/dL; Microalb ug/mg Crea 36.9 ug/mg Cr
[2024-08-14 12:03] LABS: Anion Gap 12.3 mmol/L (3-11); BUN 36 mg/dL (7-18); CO2 22.7 mmol/L (21.0-32.0); CREATININE 2.2 mg/dL (0.70-1.30); Calcium 8.8 mg/dL (8.5-10.1); Chloride 104 mmol/L (98-107); Estimated GFR 33.87 (mL/min/1.73m2); Glucose 338 mg/dL (74-106); LDL CHOLESTEROL 49 mg/dL (<100); Potassium 4.2 mmol/L (3.5-5.1); Sodium 139 mmol/L (136-145)
== END 2024-08-14 01:18 | disposition home or self-care (01) ==
LOC: LBO 01:18
PROVIDERS: PCP Nurse Practitioner Family; Visit Provider Internal Medicine Endocrinology, Diabetes & Metabolism
DX: E78.5 Hyperlipidemia, unspecified (principal); E11.65 Type 2 diabetes mellitus with hyperglycemia; Z79.4 Long term (current) use of insulin; E55.9 Vitamin D deficiency, unspecified
CPT/HCPCS: 36415; 80048; 83721; 82043; 82570; 83036

== ENCOUNTER 2024-10-05 11:28 | Outpatient (CLI) | payer MEDICARE, OTHER, MEDICAID, SELFPAY ==
--- NOTE | 2024-10-05 10:15 | DI.RAD_ITS ---
Exam(s) XR KNEE RT 4V AP,LAT,JARED,PAT EXAM: XR KNEE RT 4V AP,LAT,JARED,PAT CLINICAL HISTORY: right knee pain. TECHNIQUE: 2D digital imaging was performed. Three views. COMPARISON: CR XR KNEE RT 3V AP,LAT,JARED from 02/26/2024 MR MR LOWER JOINT RT WO from 05/08/2024 FINDINGS: BONES: No acute fracture is present. No bony destructive lesion is seen. JOINTS: The knee is normally aligned. A moderate-sized joint effusion is seen. Moderate medial femo ral tibial joint space narrowing. Mild spurring at the articular aspect of the patella irregularity at the articular surface of the patella on the Merchant view. SOFT TISSUE: Normal vascular calcifications. IMPRESSION: Degenerative changes and joint effusion. DATA REPOSITORY: RADIATION DOSE DELIVERED:
== END 2024-10-05 11:29 | disposition home or self-care (01) ==
LOC: DIORS 11:30
PROVIDERS: PCP Nurse Practitioner Family; Referring Provider Nurse Practitioner Family; Visit Provider Physician Assistant
DX: S83.281D Other tear of lateral meniscus, current injury, right knee, subsequent encounter; X58.XXXD Exposure to other specified factors, subsequent encounter; M94.261 Chondromalacia, right knee
CPT/HCPCS: 20610; 99214; J1010; 73564

== ENCOUNTER → 2024-11-23 09:48 | Outpatient (BNVA) | payer MEDICARE, OTHER, MEDICAID, SELFPAY | PROVIDERS: PCP Nurse Practitioner Family; Referring Provider Nurse Practitioner Family; Visit Provider Student in an Organized Health Care Education/Training Program | DX: S83.281A Other tear of lateral meniscus, current injury, right knee, initial encounter (principal); M94.261 Chondromalacia, right knee; M25.361 Other instability, right knee; X58.XXXA Exposure to other specified factors, initial encounter | CPT/HCPCS: 99213 ==

== ENCOUNTER → 2025-01-18 08:32 | Outpatient (BNVA) | payer MEDICARE, OTHER, MEDICAID, SELFPAY | PROVIDERS: PCP Nurse Practitioner Family; Referring Provider Nurse Practitioner Family; Visit Provider Student in an Organized Health Care Education/Training Program | DX: S83.281A Other tear of lateral meniscus, current injury, right knee, initial encounter (principal); M94.261 Chondromalacia, right knee; X58.XXXA Exposure to other specified factors, initial encounter | CPT/HCPCS: 99213 ==

== ENCOUNTER 2025-02-16 01:47 | Outpatient (CLI) | payer MEDICARE, OTHER, MEDICAID, SELFPAY ==
--- NOTE | 2025-02-16 06:30 | DI.MRI_ITS ---
Exam(s) MR LOWER JOINT RT WO EXAM: MR LOWER JOINT RT WO CLINICAL HISTORY: PAIN,rt knee chrondromalacia,tear lat meniscus,m94.261,[id number]. TECHNIQUE: Multiplanar multisequence MRI was performed. COMPARISON: MR MR LOWER JOINT RT WO from 05/08/2024 CR XR KNEE RT 4V AP,LAT,JARED,PAT from 10/05/2024 FINDINGS: BONES: There is no fracture or contusion pattern. JOINTS: There is marked thinning of the articular cartilage at the inferior aspect of the patella, particularly involving the medial patellar facet. There is loss of the articular cartilage overlying the medial femoral condyle and medial tibial plateau. This has progressed since the prior examination, particularly over the medial femoral condyle. There is a small to moderate size joint effusion. TENDONS: Extensor mechanism: Unremarkable. Medial retinaculum: Unremarkable. Lateral retinaculum: Unremarkable. Popliteus: Unremarkable. MUSCLES: Unremarkable. MENISCI: There is stable decrease in size of the body and posterior horn of the medial meniscus. There is persistent abnormal signal seen, particularly in the remnant of the body. There is new hyperintense signal along the inferior surface anterior horn of the lateral meniscus suspicious for tear. SOFT TISSUES: There is a moderate-sized popliteal cyst present. There is mild edema seen in the soft tissues at the posterior medial knee. LIGAMENTS: Anterior Cruciate: There is again seen a complete tear of the anterior cruciate ligament. Posterior Cruciate: Unremarkable. Medial Collateral:Unremarkable. Lateral Collateral: Unremarkable. OTHER: IMPRESSION: 1. Progression of the chondromalacia particularly over medial femoral condyle since the prior examination. 2. Small to moderate size joint effusion. 3. New hyperintense signal along the inferior surface of the anterior horn of the lateral meniscus suspicious for tear. 4. Stable appearance of the medial meniscus 5. Anterior cruciate ligament tear. 6. Moderate sized popliteal cyst. DATA REPOSITORY:
== END 2025-02-16 02:07 ==
LOC: DI 01:47
PROVIDERS: PCP Nurse Practitioner Family; Visit Provider Student in an Organized Health Care Education/Training Program
DX: M94.261 Chondromalacia, right knee (principal); S83.281A Other tear of lateral meniscus, current injury, right knee, initial encounter; X58.XXXA Exposure to other specified factors, initial encounter
CPT/HCPCS: 73721

== ENCOUNTER → 2025-03-01 14:11 | Outpatient (BNVA) | payer MEDICARE, OTHER, MEDICAID, SELFPAY | PROVIDERS: PCP Nurse Practitioner Family; Referring Provider Nurse Practitioner Family; Visit Provider Student in an Organized Health Care Education/Training Program | DX: M17.11 Unilateral primary osteoarthritis, right knee (principal); M94.261 Chondromalacia, right knee; S83.281A Other tear of lateral meniscus, current injury, right knee, initial encounter; X58.XXXA Exposure to other specified factors, initial encounter; E11.9 Type 2 diabetes mellitus without complications | CPT/HCPCS: 99214 ==

== ENCOUNTER 2025-04-13 13:06 | Outpatient (REF) | payer MEDICARE, OTHER, MEDICAID, SELFPAY ==
[2025-04-13 15:37] LABS: Abs Immature Grans 0.03 10^3/uL (0.0-0.06); HCT 41.9 % (40.0-50.0); HGB 14.2 g/dL (13.5-17.5); Immature Grans % 0.4 %; MCH 28.1 pg (27.0-33.0); MCHC 33.9 % (32.0-36.0); MCV 83 fL (80-95); MPV 8.9 fL (8.0-11.0); Platelet Count 202 10^3/uL (130-400); RBC 5.06 10^6/uL (4.36-5.78); RDW 14.0 % (11.8-14.1); RDW-SD 41.9 fL; WBC 8.43 10^3/uL (4.4-10.8)
[2025-04-13 16:08] LABS: Iron 57 ug/dL (65-175); Total Iron Binding Capacity 363 ug/dL (250-450); Transferrin Sat 16 % (20-55)
[2025-04-13 16:31] LABS: ALT 33 U/L (16-63); AST 18 U/L (15-37); Albumin 3.9 g/dL (3.4-5.0); Alkaline Phosphatase 78 U/L (46-116); Anion Gap 10.2 mmol/L (3-11); BUN 31 mg/dL (7-18); Bilirubin, Total 0.6 mg/dL (0.2-1.0); CO2 25.8 mmol/L (21.0-32.0); Calcium 9.3 mg/dL (8.5-10.1); Chloride 104 mmol/L (98-107); Estimated GFR 37.74 (mL/min/1.73m2); Ferritin 79 ng/mL (26-388); Glucose 136 mg/dL (74-106); Magnesium 2.3 mg/dL (1.8-2.4); Potassium 4.6 mmol/L (3.5-5.1); Sodium 140 mmol/L (136-145); Total Protein 7.0 g/dL (6.4-8.2); Vitamin B12 610 pg/mL (193-986)
== END 2025-04-13 13:07 | disposition home or self-care (01) ==
LOC: NCHCN 13:06
PROVIDERS: PCP Nurse Practitioner Family; Visit Provider Nurse Practitioner Family
DX: N18.9 Chronic kidney disease, unspecified (principal); E61.1 Iron deficiency; H35.00 Unspecified background retinopathy; E11.9 Type 2 diabetes mellitus without complications; G62.9 Polyneuropathy, unspecified; I25.10 Atherosclerotic heart disease of native coronary artery without angina pectoris; E78.2 Mixed hyperlipidemia
CPT/HCPCS: 80053; 82607; 82728; 83540; 83550; 83735; 85025